=== PATIENT | male | born 1950 | race Caucasian/White ===

== ENCOUNTER 2022-09-17 10:48 | Outpatient (REF) | payer OTHER, SELFPAY ==
[2022-09-17 12:26] LABS: Albumin Level 2.4 g/dL (3.4-5.0); BUN Creatinine Ratio 13.4; Calcium 9.8 mg/dL (8.5-10.1); Carbon Dioxide 18.6 mmol/L (21.0-32.0); Chloride 107 mmol/L (98-107); Estimated GFR (African America 12 (>=60); Estimated GFR (Non-African Ame 10 (>=60); Glucose 116 mg/dL (74-106); Potassium 4.6 mmol/L (3.5-5.1); Sodium 139 mmol/L (136-145)
[2022-09-17 12:37] LABS: Phosphorus 6.6 mg/dL (2.6-4.7)
== END 2022-09-17 10:49 ==
LOC: LAB 10:48
DX: N19 Unspecified kidney failure (principal)
CPT/HCPCS: 36415; 80069

== ENCOUNTER 2023-02-04 16:03 | Emergency (ER) | payer OTHER, SELFPAY ==
[2023-02-04] VITALS (21 sets, daily range): BP systolic 104–137; BP diastolic 64–77; PULSE 79–83; RESP 13–22; TEMP 36.7; O2SAT 86–100; BMI 42.7
--- NOTE | 2023-02-04 16:15 | ECG_ITS ---
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
--- NOTE | 2023-02-04 16:32 | PC.NURSE ---
Patient arrives via ems stating, my home health nurse came out to get blood work and tried like 4 times and couldn't get it so she figured I was dehydrated and needed to be seen. Patient is on fluid restriction and arrives with solomon in place from home. patient skin is cool and pale. Patient c/o headache that is global that has been there for 2-3 days. Patient also c/o muscle spasms to hands and legs over same period of time. Patient uses wheelchair at home and is nonambulatory at baseline.
--- NOTE | 2023-02-04 16:33 | ED_ITS ---
HPI - General Adult General Chief complaint: Weakness Stated complaint: HEADACHE Time Seen by Provider: 02/04/23 16:10 Source: patient Mode of arrival: ambulance Limitations: no limitations History of Present Illness HPI narrative: Patient arrived by EMS after his home health nurse called 911, concerned that the patient might be dehydrated because she could not get blood draw and she measured decreased BP when she checked his vitals. The patient has stage 4 kidney disease just better than needing dialysis which requires him to be on fluid restriction. He said that voer the last 24 hours he developed dry mouth, mild headache and some muscle cramps in the legs and arms. He said he gets these symptoms when he is dehydrated. No nausea, vomiting or diarrhea. No chest or abdominal pain. No shortness of sandip ath. No recent injury or illness. He was previously admitted to [facility] and then discharged to [facility] where he got temporary dialysis before being transferred to the [place] for more dialysis and blood products. Related Data Allergies Allergy/AdvReac Type Severity Reaction Status Date / Time Penicillins Allergy Mild Rash Verified 02/04/23 16:07 ferumoxides Allergy Rash Verified 02/04/23 16:07 sulfamethoxazole AdvReac Mild Nausea Verified 02/04/23 16:07 [From Sulfamethoxazole-Trimethoprim] trimethoprim AdvReac Mild Nausea Verified 02/04/23 16:07 [From Sulfamethoxazole-Trimethoprim] [facility] Social History Smoking status: Former smoker Exam Narrative Exam Narrative: Nurses notes and vital signs reviewed and patient is not hypoxic. afebrile General: Well-appearing and in no apparent distress. Skin: Warm, dry, no pallor noted. Head: Normocephalic, atraumatic. Eye: Pupils are equal, round and EOMI. No scleral icterus. Ears, Nose, Mouth, and Throat: Oral mucosa is dry Cardiovascular: Regular Rate and Rhythm without murmur, gallop or rub. Respiratory: No accessory muscle use or respiratory distress. Lungs are clear to auscultation, no wheezing, rales or rhonchi Musculoskeletal: normal ROM, no calf or popliteal tenderness, 2+ pitting bilateral lower extremity edema/swelling GI: Abdomen is soft, non-distended. Normal bowel sounds. No tenderness to palpation. No rebound, guarding, or rigidity noted. Neurological: A&O x4. No cranial nerve dysfunction observed. No truncal ataxia. Moves all extremities. Sensation intact. Psychiatric: Cooperative and interactive. Normal mood and affect. Constitutional Vital Signs, click to edit/add: Last Vital Signs Temp 98.1 F 02/04/23 16:07 Pulse 81 02/04/23 16:07 Resp 18 02/04/23 16:07 BP 104/77 02/04/23 16:07 Pulse Ox 100 02/04/23 16:07 O2 Del Method Room Air 02/04/23 16:07 Course Vital Signs Vital signs: Vital Signs Temperature 98.1 F 02/04/23 16:07 Pulse Rate 81 02/04/23 16:07 Respiratory Rate 18 02/04/23 16:07 Blood Pressure 104/77 02/04/23 16:07 Pulse Oximetry 100 02/04/23 16:07 Oxygen Delivery Method Room Air 02/04/23 16:07 Temperature 98.1 F 02/04/23 16:07 Pulse Rate 81 02/04/23 16:07 Respiratory Rate 18 02/04/23 16:07 Blood Pressure 104/77 02/04/23 16:07 Pulse Oximetry 100 02/04/23 16:07 Oxygen Delivery Method Room Air 02/04/23 16:07 Medical Decision Making MDM Narrative Medical decision making narrative: peripheral IV was established and blood drawn and sent for testing. EKG was obtained. CBC with normal WBC and Hb 8.9. BMP shows Na 133, K 4.5, Cl 101, CO2 22, BUN 84, Cr 5.4 - these numbers are better than his last visit in August 2022. Patient given 250mL NS IVF in the ED. He was also allowed to have something to eat. He was discharged home with recommendations to take his meds as scheduled and follow up with his providers as scheduled. Lab Data Lab results reviewed: Yes I reviewed the patient's lab results Labs: Lab Results 02/04/23 Range/Units 16:23 WBC 7.6 (4.0-11.0) 10^3/uL RBC 2.92 L (4.70-6.10) 10^6/uL Hgb 8.9 L (14.0-18.0) g/dL Hct 27.2 L (42.0-54.0) % MCV 93.2 (80.0-94.0) fL MCH 30.5 (25.9-34.0) pg MCHC 32.7 (29.9-35.2) g/dL RDW 14.6 (11.0-15.0) % Plt Count 153 (150-450) 10^3/uL MPV 9.9 (9.5-13.5) fL Neut % (Auto) 67.2 (43.0-75.0) % Lymph % (Auto) 15.3 L (20.5-60.0) % [place] % (Auto) 10.4 (1.7-12.0) % Eos % (Auto) 5.7 (0.9-7.0) % Baso % (Auto) 0.7 (0.2-2.0) % Neut # (Auto) 5.1 (1.4-6.5) 10^3/uL Lymph # (Auto) 1.2 (1.2-3.8) 10^3/uL [place] # (Auto) 0.8 (0.3-0.8) 10^3/uL Eos # (Auto) 0.4 (0.0-0.7) 10^3/uL Baso # (Auto) 0.1 (0.0-0.1) 10^3/uL Abs Immat Gran (auto) 0.05 H (0.00-0.03) 10^3/uL Imm/Tot Granulo (auto) 0.7 H (0.0-0.5) % Sodium 133 L (136-145) mmol/L Potassium 4.5 (3.5-5.1) mmol/L Chloride 101 (98-107) mmol/L Carbon Dioxide 22.3 (21.0-32.0) mmol/L Anion Gap 14.2 BUN 84.0 H* (7.0-18.0) mg/dL Creatinine 5.41 H* (0.70-1.30) mg/dL Est GFR ( Amer) 13 L (>=60) Est GFR (Non-Af Amer) 10 L (>=60) BUN/Creatinine Ratio 15.5 Glucose 122 H (74-106) mg/dL Calcium 9.5 (8.5-10.1) mg/dL ECG Data Attestation: ?I have reviewed the pertinent ECG results. Interpretation: EKG interpretation: Emergency Department physician interpretation. Normal sinus rhythm at 77bpm. Non-specific IV conduction block. ST depression in leads II, III, aVL, V5 & V6- no ST segment elevation or depression. Discharge Plan Discharge Chief Complaint: Weakness Clinical Impression: Chronic renal failure (CRF), stage 4 (severe), Dehydration Patient Disposition: Home, Self-Care Time of Disposition Decision: 17:06 Instructions: Dehydration (ED), End Stage Kidney Disease (ED) Stand Alone Forms: Portal Instructions Referrals: Physician,Non-Staff, MD [Primary Care Provider] - 1 week
[2023-02-04 16:34] LABS: Basophils Absolute Auto 0.1 10^3/uL (0.0-0.1); Basophils Percent Auto 0.7 % (0.2-2.0); Eosinophils Absolute Auto 0.4 10^3/uL (0.0-0.7); Eosinophils Percent Auto 5.7 % (0.9-7.0); Hematocrit 27.2 % (42.0-54.0); Hemoglobin 8.9 g/dL (14.0-18.0); Immature Granulocytes Abs Auto 0.05 10^3/uL (0.00-0.03); Immature Granulocytes Pct Auto 0.7 % (0.0-0.5); Lymphocytes Absolute Auto 1.2 10^3/uL (1.2-3.8); Lymphocytes Percent Auto 15.3 % (20.5-60.0); Mean Corpuscular HGB Conc 32.7 g/dL (29.9-35.2); Mean Corpuscular Hemoglobin 30.5 pg (25.9-34.0); Mean Corpuscular Volume 93.2 fL (80.0-94.0); Mean Platelet Volume 9.9 fL (9.5-13.5); Monocytes Absolute Auto 0.8 10^3/uL (0.3-0.8); Monocytes Percent Auto 10.4 % (1.7-12.0); Neutrophils Absolute Auto 5.1 10^3/uL (1.4-6.5); Neutrophils Percent Auto 67.2 % (43.0-75.0); Platelet Count 153 10^3/uL (150-450); Red Blood Count 2.92 10^6/uL (4.70-6.10); Red Cell Distribution Width 14.6 % (11.0-15.0); White Blood Count 7.6 10^3/uL (4.0-11.0)
[2023-02-04 16:45] LABS: Anion Gap 14.2; BUN Creatinine Ratio 15.5; Calcium 9.5 mg/dL (8.5-10.1); Carbon Dioxide 22.3 mmol/L (21.0-32.0); Chloride 101 mmol/L (98-107); Estimated GFR (African America 13 (>=60); Estimated GFR (Non-African Ame 10 (>=60); Glucose 122 mg/dL (74-106); Potassium 4.5 mmol/L (3.5-5.1); Sodium 133 mmol/L (136-145)
[2023-02-04] MEDS: 0.9 % SODIUM CHLORIDE 250 ML IV.SOLN IV (17:05)
== END 2023-02-04 19:32 | disposition home or self-care (01) ==
PROVIDERS: Emergency Provider Emergency Medicine
DX: E86.0 Dehydration (principal); N18.4 Chronic kidney disease, stage 4 (severe); Z87.891 Personal history of nicotine dependence
CPT/HCPCS: 36415; 80048; 85025; 93005; 99284

== ENCOUNTER 2023-08-16 21:41 | Inpatient (IN) | payer OTHER, SELFPAY ==
[2023-08-16] VITALS (14 sets, daily range): BP systolic 138; BP diastolic 73; PULSE 74–129; TEMP 36.6; O2SAT 98; BMI 50.2
--- NOTE | 2023-08-16 21:47 | ED_ITS ---
HPI - Male Genitourinary General Chief complaint: Urogenital-Male Stated complaint: blood in urine Time Seen by Provider: 08/16/23 21:47 History of Present Illness HPI Narrative: patient has indwelling solomon in place since 2019. Care via [place] [facility]. Resides at home alone. Completely dependent on caregiver who is there 8 hours a day. States he is placed in bed at night and remains there until the memory care program resident arrives the next day as he is not able to get up noticed blood in his solomon today and also feels weak. No fever, nausea or pain Related Data Home Medications ?Medication ?Instructions ?Recorded ?Confirmed acetaminophen 325 mg capsule 975 mg PO TID PRN fever or pain 08/17/23 08/17/23 (Tylenol) albuterol 90 mcg/actuation aerosol 90 mcg inhalation QID PRN 08/17/23 08/17/23 inhaler shortness of breath or wheezing aspirin 81 mg tablet,delayed 81 mg PO DAILY 08/17/23 08/17/23 release (Adult Low Dose Aspirin) atorvastatin 80 mg tablet 80 mg PO DAILY 08/17/23 08/17/23 bacitracin zinc 500 unit/gram 1 applic topical DAILY PRN skin 08/17/23 08/17/23 topical ointment irritation benzocaine 15 mg-menthol 2.6 mg 1 thien mucous membrane Q6H PRN sore 08/17/23 08/17/23 lozenges (Cepacol Sore Throat throat (benzocaine-menthol)) calcitriol 0.25 mcg capsule 0.25 mcg PO .3 TIMES WEEK 08/17/23 08/17/23 carvedilol 12.5 mg tablet 12.5 mg PO BID 08/17/23 08/17/23 cholecalciferol (vitamin D3) 50 2,000 unit PO DAILY 08/17/23 08/17/23 mcg (2,000 unit) capsule clobetasol 0.05 % topical cream 1 applic topical BID 08/17/23 08/17/23 darbepoetin danielle in polysorbat 100 100 mcg subcut .q2week 08/17/23 08/17/23 mcg/0.5 mL in polysorbate injection syringe darbepoetin danielle in polysorbat 100 100 mcg subcut QWEEK 08/17/23 08/17/23 mcg/mL in polysorbate injection darifenacin 15 mg tablet,extended 15 mg PO DAILY 08/17/23 08/17/23 release 24 hr ferrous sulfate 325 mg (65 mg 325 mg PO DAILY 08/17/23 08/17/23 iron) tablet,delayed release finasteride 5 mg tablet 5 mg PO DAILY 08/17/23 08/17/23 guaifenesin 600 mg tablet, 600 mg PO BID PRN congestion 08/17/23 08/17/23 extended release 12 hr hydrocodone 5 mg-acetaminophen 325 1 tab PO Q4H PRN pain 08/17/23 08/17/23 mg tablet hydrophilic cream 1 applic topical BID 08/17/23 08/17/23 levothyroxine 75 mcg capsule 75 mcg PO DAILY 08/17/23 08/17/23 lidocaine HCl 2 % topical gel 1 applic topical DAILY PRN pain 08/17/23 08/17/23 lidocaine HCl 4 % topical ointment 1 ea topical TID PRN pain 08/17/23 08/17/23 (AsperFlex (lidocaine HCl)) loratadine 10 mg tablet (Allergy 10 mg PO DAILY 08/17/23 08/17/23 Relief (loratadine)) melatonin 3 mg tablet 6 mg PO DAILY 08/17/23 08/17/23 miconazole nitrate 2 % topical 1 applic topical DAILY 08/17/23 08/17/23 cream miconazole nitrate 2 % topical 1 applic topical DAILY PRN fungal 08/17/23 08/17/23 powder (Remedy Phytoplex Antifungal) multivitamin 1 tab PO DAILY 08/17/23 08/17/23 nitroglycerin 0.4 mg sublingual 0.4 mg sublingual Q5M 08/17/23 08/17/23 tablet nystatin 100,000 unit/gram topical 1 applic topical DAILY PRN skin 08/17/23 08/17/23 powder omeprazole 20 mg tablet,delayed 20 mg PO DAILY 08/17/23 08/17/23 release polyethylene glycol 3350 17 17 g PO DAILY PRN constipation 08/17/23 08/17/23 gram/dose oral powder (Miralax) potassium citrate-citric acid 30 ml PO DAILY 08/17/23 08/17/23 1,100 mg-334 mg/5 mL oral solution pramoxine 1 % lotion 1 applic topical BID PRN itching 08/17/23 08/17/23 semaglutide 2 mg/dose (8 mg/3 mL) 0.5 mg subcut QWEEK 08/17/23 08/17/23 subcutaneous pen injector (Ozempic) sennosides 8.6 mg capsule 8.6 mg PO DAILY PRN constipation 08/17/23 08/17/23 trazodone 100 mg tablet 100 mg PO DAILY 08/17/23 08/17/23 ustekinumab 90 mg/mL subcutaneous 90 mg subcut .every 10 weeks 08/17/23 08/17/23 syringe venlafaxine 37.5 mg 37.5 mg PO DAILY 08/17/23 08/17/23 capsule,extended release 24 hr wound dressings (Triad Wound 1 applic topical .Fri. 08/17/23 08/17/23 Dressing paste) zinc oxide 20 % topical ointment 1 applic topical DAILY PRN skin 08/17/23 08/17/23 irritation Allergies Allergy/AdvReac Type Severity Reaction Status Date / Time Penicillins Allergy Mild Rash Verified 08/16/23 21:52 ferumoxides Allergy Rash Verified 08/16/23 21:52 sulfamethoxazole AdvReac Mild Nausea Verified 08/16/23 21:52 [From Sulfamethoxazole-Trimethoprim] trimethoprim AdvReac Mild Nausea Verified 08/16/23 21:52 [From Sulfamethoxazole-Trimethoprim] Review of Systems ROS Status of ROS 10 or more systems reviewed and unremark able except as noted in history and below [facility] Medical History (Updated 08/17/23 @ 12:38 by Shaikh Arturo MD) T2DM (type 2 diabetes mellitus) ?E11.9 - Type 2 diabetes mellitus without complications (ICD-10) Hypothyroid ?E03.9 - Hypothyroidism, unspecified (ICD-10) HLD (hyperlipidemia) ?E78.5 - Hyperlipidemia, unspecified (ICD-10) HTN (hypertension) ?I10 - Essential (primary) hypertension (ICD-10) Anemia in CKD (chronic kidney disease) ?N18.9 - Chronic kidney disease, unspecified (ICD-10) ?D63.1 - Anemia in chronic kidney disease (ICD-10) Chronic indwelling Solomon catheter ?Z97.8 - Presence of other specified devices (ICD-10) Paraplegia ?G82.20 - Paraplegia, unspecified (ICD-10) Bedbound ?Z74.01 - Bed confinement status (ICD-10) H/O: CVA (cerebrovascular accident) ?Z86.73 - Personal history of transient ischemic attack (TIA), and cerebral infarction without residual deficits (ICD-10) Chronic renal failure (CRF), stage 4 (severe) ?N18.4 - Chronic kidney disease, stage 4 (severe) (ICD-10) Pyuria ?R82.81 - Pyuria (ICD-10) CKD (chronic kidney disease) stage 5, GFR less than 15 ml/min ?N18.5 - Chronic kidney disease, stage 5 (ICD-10) Social History (Updated 08/17/23 @ 12:36 by Shaikh Arturo MD) Within the past year, how often did you have a drink containing alcohol: never Score interpretation: A score less than 4 is consistent with normal alcohol consumption. Smoking status: Former smoker Non-prescribed substance use: denies use Highest level of school completed/degree received: Associate degree: occupational, technical, vocational program Do you think of yourself as: straight/heterosexual Gender Identity: male Exam Constitutional Vital Signs, click to edit/add: Last Vital Signs Temp 97.9 F 08/17/23 16:00 Pulse 73 08/17/23 16:00 Resp 18 08/17/23 16:00 BP 123/75 08/17/23 16:00 Pulse Ox 97 08/17/23 16:00 O2 Del Method Room Air 08/17/23 16:00 O2 Flow Rate 1 08/17/23 12:00 Common normals: no apparent distress, oriented x3, alert and well nourished [facility] Common normals: normocephalic and head/scalp atraumatic Eye Common normals: EOMs intact bilaterally and conjunctivae normal Respiratory Common normals: normal respiratory effort, no retractions, no use of accessory muscles and clear to auscultation bilaterally Cardio Common normals: regular rate, regular rhythm, S1 normal heart sound and S2 normal heart sound GI Common normals: Normal to inspection, nondistended, normoactive bowel sounds present, soft to palpation and non-tender Extremity Common normals: normal to inspection Neuro Common normals: oriented x3, CN's II-XII intact bilaterally, moves all extremities and no focal motor deficits Psych Appearance: grossly normal Course Vital Signs Vital signs: Vital Signs Temperature 98 F 08/16/23 21:45 Pulse Rate 81 08/16/23 21:45 Respiratory Rate 16 08/16/23 21:45 Blood Pressure 138/73 08/16/23 21:45 Pulse Oximetry 98 08/16/23 21:45 Oxygen Delivery Method Room Air 08/16/23 21:45 Temperature 97.9 F 08/17/23 16:00 Pulse Rate 73 08/17/23 16:00 Respiratory Rate 18 08/17/23 16:00 Blood Pressure 123/75 08/17/23 16:00 Pulse Oximetry 97 08/17/23 16:00 Oxygen Delivery Method Room Air 08/17/23 16:00 Oxygen Delivery Flow Rate 1 08/17/23 12:00 MDM - Male Genitourinary MDM Narrative Medical decision making narrative: patient is diabetic and has chronic renal failure. has chronic indwelling Solomon and tonight presented because of weakness and hematuria. Urine in his bag now is pink. States there was more blood at home before he came in via [facility]. He lives alone as his has passed. He is not able to get up from the bed and requires care of an fleet administrative assistant payment collector who comes to his home daily for 8 hours. States he has no interest in a care home. He is put to be at night and remains there until the patient care technician returns the next day. labs reveal his chronic renal failure but also evidence of dehydration that is worse than his baseline. IV fluids started in the department. UA via catheter positive as expected. Urine cx order ed Lab Data Labs: Lab Results 08/16/23 08/16/23 08/17/23 Range/Units 22:04 23:23 04:43 WBC 8.2 8.9 (4.0-11.0) 10^3/uL RBC 3.40 L 3.36 L (4.70-6.10) 10^6/uL Hgb 9.8 L 9.5 L (14.0-18.0) g/dL Hct 31.0 L 30.6 L (42.0-54.0) % MCV 91.2 91.1 (80.0-94.0) fL MCH 28.8 28.3 (25.9-34.0) pg MCHC 31.6 31.0 (29.9-35.2) g/dL RDW 14.6 14.6 (11.0-15.0) % Plt Count 151 135 L (150-450) 10^3/uL MPV 9.9 9.8 (9.5-13.5) fL Neut % (Auto) 70.6 71.9 (43.0-75.0) % Lymph % (Auto) 14.8 L 13.3 L (20.5-60.0) % [place] % (Auto) 9.8 9.8 (1.7-12.0) % Eos % (Auto) 3.7 3.7 (0.9-7.0) % Baso % (Auto) 0.7 0.8 (0.2-2.0) % Neut # (Auto) 5.8 6.4 (1.4-6.5) 10^3/uL Lymph # (Auto) 1.2 1.2 (1.2-3.8) 10^3/uL [place] # (Auto) 0.8 0.9 H (0.3-0.8) 10^3/uL Eos # (Auto) 0.3 0.3 (0.0-0.7) 10^3/uL Baso # (Auto) 0.1 0.1 (0.0-0.1) 10^3/uL Abs Immat Gran (auto) 0.03 0.04 H (0.00-0.03) 10^3/uL Imm/Tot Granulo (auto) 0.4 0.5 (0.0-0.5) % Sodium 138 138 (136-145) mmol/L Potassium 4.7 4.5 (3.5-5.1) mmol/L Chloride 104 106 (98-107) mmol/L Carbon Dioxide 21.7 19.6 L (21.0-32.0) mmol/L Anion Gap 17.0 16.9 BUN 106.0 H* 110.0 H* (7.0-18.0) mg/dL Creatinine 5.76 H* 5.67 H* (0.70-1.30) mg/dL Est GFR ( Amer) 12 L 12 L (>=60) Est GFR (Non-Af Amer) 10 L 10 L (>=60) BUN/Creatinine Ratio 18.4 19.4 Glucose 110 H 129 H (74-106) mg/dL Lactate 0.5 (0.4-2.0) mmol/L Calcium 10.0 9.8 (8.5-10.1) mg/dL Total Bilirubin 0.4 (0.2-1.0) mg/dL AST 20 (15-37) U/L ALT 43 (16-63) U/L Alkaline Phosphatase 126 H (46-116) U/L Troponin I High Sens 25.6 28.2 (4.0-76.1) pg/mL Total Protein 6.3 L (6.4-8.2) g/dL Albumin 2.6 L (3.4-5.0) g/dL Globulin 3.7 g/dL Albumin/Globulin Ratio 0.7 Urine Color Yellow (YELLOW) Urine Clarity Clear (CLEAR) Urine pH 7.5 (5.0-9.0) Ur Specific [place] 1.015 (1.005-1.025) Urine Protein 100 A (NEG/TRACE) mg/dL Urine Glucose (UA) 100 A (NEGATIVE) mg/dL Urine Ketones Negative (NEGATIVE) mg/dL Urine Occult Blood Large A (NEGATIVE) Urine Nitrite Positive A (NEGATIVE) Urine Bilirubin Negative (NEGATIVE) Urine Urobilinogen 0.2 (0.2-1.0) EU/dL Ur Leukocyte Esterase Large A (NEGATIVE) Urine RBC 20-50 A (0-2) #/HPF Urine WBC 50-75 A (NONE SEEN) #/HPF Ur Squamous Epith Cells None seen (NONE/RARE) #/LPF Urine Crystals None seen (None Seen) #/HPF Urine Bacteria Moderate A (NONE SEEN) #/HPF Urine Casts None seen (NONE SEEN) #/LPF Urine Mucus None seen (NONE SEEN) Ur Culture Indicated? Yes POC Glucose (74-106) mg/dL 08/17/23 08/17/23 Range/Units 11:43 12:53 WBC (4.0-11.0) 10^3/uL RBC (4.70-6.10) 10^6/uL Hgb 9.2 L (14.0-18.0) g/dL Hct 29.2 L (42.0-54.0) % MCV (80.0-94.0) fL MCH (25.9-34.0) pg MCHC (29.9-35.2) g/dL RDW (11.0-15.0) % Plt Count (150-450) 10^3/uL MPV (9.5-13.5) fL Neut % (Auto) (43.0-75.0) % Lymph % (Auto) (20.5-60.0) % [place] % (Auto) (1.7-12.0) % Eos % (Auto) (0.9-7.0) % Baso % (Auto) (0.2-2.0) % Neut # (Auto) (1.4-6.5) 10^3/uL Lymph # (Auto) (1.2-3.8) 10^3/uL [place] # (Auto) (0.3-0.8) 10^3/uL Eos # (Auto) (0.0-0.7) 10^3/uL Baso # (Auto) (0.0-0.1) 10^3/uL Abs Immat Gran (auto) (0.00-0.03) 10^3/uL Imm/Tot Granulo (auto) (0.0-0.5) % Sodium (136-145) mmol/L Potassium (3.5-5.1) mmol/L Chloride (98-107) mmol/L Carbon Dioxide (21.0-32.0) mmol/L Anion Gap BUN (7.0-18.0) mg/dL Creatinine (0.70-1.30) mg/dL Est GFR ( Amer) (>=60) Est GFR (Non-Af Amer) (>=60) BUN/Creatinine Ratio Glucose (74-106) mg/dL Lactate (0.4-2.0) mmol/L Calcium (8.5-10.1) mg/dL Total Bilirubin (0.2-1.0) mg/dL AST (15-37) U/L ALT (16-63) U/L Alkaline Phosphatase (46-116) U/L Troponin I High Sens (4.0-76.1) pg/mL Total Protein (6.4-8.2) g/dL Albumin (3.4-5.0) g/dL Globulin g/dL Albumin/Globulin Ratio Urine Color (YELLOW) Urine Clarity (CLEAR) Urine pH (5.0-9.0) Ur Specific [place] (1.005-1.025) Urine Protein (NEG/TRACE) mg/dL Urine Glucose (UA) (NEGATIVE) mg/dL Urine Ketones (NEGATIVE) mg/dL Urine Occult Blood (NEGATIVE) Urine Nitrite (NEGATIVE) Urine Bilirubin (NEGATIVE) Urine Urobilinogen (0.2-1.0) EU/dL Ur Leukocyte Esterase (NEGATIVE) Urine RBC (0-2) #/HPF Urine WBC (NONE SEEN) #/HPF Ur Squamous Epith Cells (NONE/RARE) #/LPF Urine Crystals (None Seen) #/HPF Urine Bacteria (NONE SEEN) #/HPF Urine Casts (NONE SEEN) #/LPF Urine Mucus (NONE SEEN) Ur Culture Indicated? POC Glucose 114 H (74-106) mg/dL Discharge Plan Discharge Chief Complaint: Urogenital-Male Clinical Impression: Chronic renal failure (CRF), stage 4 (severe), Pyuria, Dehydration Patient Disposition: Admitted as Observation Discharge Date/Time: 08/17/23 02:02
--- NOTE | 2023-08-16 21:50 | ECG_ITS ---
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
--- OUTSIDE RECORDS SUMMARY | 2023-08-16 22:00 | XMS_ITS | CCD ---
Author Organization [facility] Care Team Providers Care Executive Asst Name Role Phone Unavailable Primary Care Provider UnavailROBERTO Raman Consulting Unavailable DIAB ., GAVITOA Attending Unavailable DIAB ., GAVIOTA Admitting Unavailable MISC, DR YODER Primary Care Unavailable DIAB ., GAVIOTA Consulting Unavailable REQUEST, NONE LISTED Primary Care Unavailaudrey HALLMAN, DR REJI Vidal Consulting Unavailabl e REINECK, DR REJI Vidal Attending Unavailabl e LEXX, DR REJI Vidal Admitting Unavailabl e GRECHNY ., KENDRA MERIDA Consulting Unavailangela e HAY ., DR BARAJAS Attending Unavailable HAY ., DR BARAJAS Admitting Unavailable REQUEST, NONE LISTED Primary Care UnavailMARQUES Byers Consulting Unavailable PAY ., DR GRAVES Consulting Unavailable PAY ., DR GRAVES Attending Unavailable PAY ., DR GRAVES Admitting Unavailable REQUEST, DR BOOTH LISTED Primary Care UnavailYOAN Valle Consulting Unavailable PAY ., DR GRAVES Consulting Unavailable SHAIKH Irasema HUNTLEY Attending Unavailable SHAIKH Irasema HUNTLEY Admitting Unavailable MISC, DR YODER Primary Care Unavailable MORTEZA .DEVANTE Consulting Unavailable SHAIKH Irasema HUNTLEY Consulting Unavailable JOSE LUIS MARQUES Consulting Unavailable ELEANOR .PASHA Consulting Unavailable GWENDOLYN WARREN Consulting Unavailable ЕЛЕНА OLSEN Referring Unavailable Nasim CRAMER Attending Unavailable Erik Sanderson Unavailable Devaughn Lucio Unavailable Eldon López Attending Unavailable Nasim Cramer Consulting Unavailable Kyaw Olsen Admitting Unavailable Morteza (Clinic)Riana Primary Care UnavailNorma Maya Consulting Unavailable Lucretia Peralta Consulting Unavailable Erik Sanderson Consulting Unavailable Sarahi Walden Consulting Unavailable Jesús Dinero Consulting Unavailable Umang Yan MELANIE J Referring Unavailable Allergies Allergy Classification Reported Allergen(s) Allergy Type Date of Onset Reaction(s) Facility Penicillins (antibiotic) (1 source) Penicillins Drug Allergy 02-06-20 [facility] (1 source) Penicillins Propensity to adverse reactions to drug 02-06-20 [facility] [place] (2 sources) Penicillin; Translations: [penicillin] Drug Allergy [facility] (2 sources) Sulfamethoxazole / Trimethoprim; Translations: [Bactrim] Drug Allergy [facility] (1 source) No Known Medication Allergies; Translations: [No Known Medication Allergies] Propensity to adverse reactions (disorder) [facility] (3 sources) Penicillin G Drug Allergy Unknown [facility] Other (3 sources) Sulfamethoxazole / Trimethoprim Drug Allergy Unknown [facility] Other (1 source) Penicillins Drug allergy (disorder) 08-31-19 [facility] (1 source) Sulfamethoxazole Drug Allergy 08-31-19 [facility] (1 source) Trimethoprim Drug Allergy 08-31-19 [facility] Medications Current Medications Medication Drug Class(es) Dates Sig (Normalized) Sig (Original) 0.25 MG, 0.5 MG Dose 3 ML semaglutide 0.68 MG/ML Pen Injector [Ozempic] (3 sources) Ozempic (0.25 or 0.5 MG/DOSE) 2 MG/3ML as directed Subcutaneous ONCE A WEEK Active acetaminophen 325 mg oral tablet (2 sources) take 2 tablets by mouth every four hours as needed for pain acetaminophen (TYLENOL) 325 MG tablet Take 650 mg by mouth every 4 hours as needed for Pain 0 Active acetaminophen 325 mg / HYDROcodone bitartrate 5 mg oral tablet (2 sources) Opioid Agonist take 2 tablets by mouth every six hours as needed for pain HYDROcodone-acetamino phen (NORCO) 5-325 MG per tablet Take 2 tablets by mouth every 6 hours as needed for Pain. 0 Active acitretin 10 mg oral capsule (2 sources) Retinoid take 2 capsules by mouth once daily before breakfast acitretin (SORIATANE) 10 MG capsule Take 20 mg by mouth every morning (before breakfast) 0 Active [id number] actuat albuterol 0.09 mg/actuat metered dose inhaler (3 sources) beta2-Adrenergic Agonist albuterol (PROVENTIL ) (2.5 MG/3ML) 0.083% nebulizer solution Take 2.5 mg by nebulization every 6 hours as needed for Wheezing 0 Active take 2 puff(s) by in halation four times daily albuterol sulfate HFA 108 (90 Base) MCG/ACT inhaler Inhale 2 puffs into the lungs 4 times daily 0 Active albuterol sulfate HFA 108 (90 Base) MCG/ACT inhaler (1 source) take 2 puff(s) by inhalation four times daily albuterol sulfate HFA 108 (90 Base) MCG/ACT inhaler Inhale 2 puffs into the lungs 4 times daily 0 Active aspirin 81 mg delayed release oral tablet (5 sources) Platelet Aggregation Inhibitor, Nonsteroidal Anti-inflammatory Drug take 1 tablet by mouth every twenty-four hours Aspirin Adult Low Dose 81 MG 1 tablet Orally Once a day Active take 1 tablet by mouth once ja y aspirin 81 MG chewable tablet Take 81 mg by mouth daily 0 Active atorvastatin 80 mg oral tablet (5 sources) HMG-CoA Reductase Inhibitor take 1 tablet by mouth every twenty-four hours Atorvastatin Calcium 80 MG 1 tablet Orally Once a day Active bisacodyl 10 mg rectal suppository (2 sources) Stimulant Laxative take 10 mg rectal route once daily as needed for constipation bisacodyl (DULCOLAX) [address] 10 mg rectally daily as needed for Constipation 0 Active carvedilol 25 mg oral tablet (5 sources) alpha-Adrenergic Sarah, beta-Adrenergic Sarah take 1 tablet by mouth every twelve hours Carvedilol 25 MG 1 tablet with food Orally Twice a day Active take 1 tablet by estrella twice daily at mealtime carvedilol (COREG) 6.25 MG tablet Take 6.25 mg by mouth 2 times daily (with meals) 0 Active Cholecalciferol (3 sources) Vitamin D take 1 tablet by mouth once daily Cholecalciferol 50 MCG (2000 UT) 1 tablet Orally Once a day Active docusate sodium 100 mg oral capsule (3 sources) take 1 capsule by mouth every twenty-four hours Colace 100 MG 1 capsule as needed Orally Once a day Active ferrous sulfate (5 sources) take 1 tablet by mouth once daily Ferrous Sulfate 325 (65 Fe) MG 1 tablet Orally ONCE A DAY Active take 1 tablet by estrella th once daily at breakfast ferrous sulfate 325 (65 Fe) MG tablet Ta ke 325 mg by mouth daily (with breakfast) 0 Active finasteride 5 mg oral tablet (5 sources) 5-alpha Reductase Inhibitor take 1 tablet by mouth every twenty-four hours Finasteride 5 MG 1 tablet Orally Once a day Active furosemide 80 mg oral tablet (2 sources) Loop Diuretic take 1 tablet by mouth once daily furosemide (LASIX) 80 MG tablet Take 80 mg by mouth daily 0 Active gabapentin 300 mg oral capsule (2 sources) Anti-epileptic Agent take 1 capsule by mouth three times daily gabapentin (NEURONTIN) 300 MG capsule Take 300 mg by mouth 3 times daily. 0 Active 3 ml insulin glargine 100 unt/ml pen injector (3 sources) Insulin Analog Lantus SoloStar 100 UNIT/ML as directed Subcutaneous 12UNITS Q HS Active levothyroxine sodium 0.075 mg oral tablet (5 sources) l-Thyroxine take 1 tablet by mouth once daily in the morning Levothyroxine Sodium 75 MCG 1 tablet in the morning on an empty stomach Orally Once a day Active take 1 tablet by mouth once ja y levothyroxine (SYNTHROID) 50 MCG tablet Take 50 mcg by mouth Daily 0 Active lidocaine hydrochloride 40 mg/ml topical solution (2 sources) Antiarrhythmic, Amide Local Anesthetic lidocaine (XYLOCAINE) 4 % external solution Apply topically as needed for Pain Apply topically as needed. 0 Active lisinopril 2.5 mg oral tablet (2 sources) Angiotensin Converting Enzyme Inhibitor take 1 tablet by mouth once daily lisinopril (PRINIVIL;ZESTRIL) 2.5 MG tablet Take 2.5 mg by mouth daily 0 Active loratadine 10 mg oral tablet (5 sources) take 1 tablet by mouth every other day Loratadine 10 MG 1 tablet Orally EVERY OTHER DAY Active take 1 tablet by mouth once ja y loratadine (CLARITIN) 10 MG tablet Take 10 mg by mouth daily 0 Active magnesium hydroxide 240 mg/ml oral suspension (2 sources) take 2400 mg by mouth once daily as needed magnesium hydroxide (MILK OF MAGNESIA CONCENTRATE) 2400 MG/10ML SUSP Take 2,400 mg by mouth daily as needed 0 Active metFORMIN hydrochloride 1000 mg oral tablet (2 sources) Biguanide take 1 tablet by mouth twice daily at mealtime metFORMIN (GLUCOPHAGE) 1000 MG tablet Take 1,000 mg by mouth 2 times daily (with meals) 0 Active metoprolol tartrate 25 mg oral tablet (2 sources) beta-Adrenergic Sarah take 1 tablet by mouth twice daily metoprolol tartrate (LOPRESSOR) 25 MG tablet Take 25 mg by mouth 2 times daily 0 Active Multivitamin preparation (3 sources) take 1 tablet by mouth once daily Multi Vitamin - 1 tablet Orally Once a day Active naproxen 375 mg oral tablet (2 sources) Nonsteroidal Anti-inflammatory Drug take 1 tablet by mouth twice daily at mealtime naproxen (NAPROSYN) 375 MG tablet Take 375 mg by mouth 2 times daily (with meals) 0 Active nitroglycerin 0.4 mg sublingual tablet (2 sources) Nitrate Vasodilator nitroGLYCERI N (NITROSTAT) 0.[address] 0.4 mg under the tongue every 5 minutes as needed for Chest pain up to max of 3 total doses. If no relief after 1 dose, call 911. 0 Active omeprazole 20 mg delayed release oral capsule (3 sources) Proton Pump Inhibitor take 1 capsule by mouth once daily Omeprazole 20 MG 1 capsule 30 minutes before morning meal Orally Once a day Active polyethylene glycol [id number] [id number] mg powder for oral solution (3 sources) Osmotic Laxative MiraLax 17 GM 1 packet mixed with 8 ounces of fluid Orally Once a day Active raNITIdine 300 mg oral tablet (2 sources) Histamine-2 Receptor Antagonist take 1 tablet by mouth once daily ranitidine (ZANTAC) 300 MG tablet Take 300 mg by mouth nightly 0 Active sevelamer hydrochloride 800 mg oral tablet (3 sources) Phosphate Binder take 1 tablet by mouth every eight hours Sevelamer HCl 800 MG 1 tablet with meals Orally Three times a day Active simethicone 80 mg chewable tablet (3 sources) take 1 tablet by mouth every six hours Simethicone 80 MG 1 tablet after meals and at bedtime as needed Orally Four times a day Active sodium phosphate, dibasic 35.5 mg/ml / sodium phosphate, monobasic 96.4 mg/ml enema (2 sources) Sodium Phosphate s (FLEET) 7-19 GM/118ML Place 1 enema rectally once as needed 0 Active tamsulosin hydrochloride 0.4 mg oral capsule (2 sources) alpha-Adrenergic Sarah take 1 capsule by mouth once daily tamsulosin (FLOMAX) 0.4 MG capsule Take 0.4 mg by mouth daily 0 Active traZODone hydrochloride 50 mg oral tablet (5 sources) Serotonin Reuptake Inhibitor take 0.5 tablet by mouth once daily traZODone HCl 50 MG 1/2 TABLET Orally Once a day Active take 1 tablet by mouth once ja y traZODone (DESYREL) 50 MG tablet Take 50 mg by mouth nightly 0 Active 1 ml ustekinumab 90 mg/ml prefilled syringe (2 sources) Interleukin-12 Antagonist, Interleukin-23 Antagonist ustekinumab (STELARA ) 90 MG/ML SOSY prefilled syringe Inject 90 mg into the skin once 0 Active venlafaxine 37.5 mg oral tablet (3 sources) Serotonin and Norepinephrine Reuptake Inhibitor take 1 tablet by mouth every twelve hours Venlafaxine HCl 37.5 MG 1 tablet with food Orally Twice a day Active Problems Active Problems Problem Classification Problem Date Documented Date Episodic/Chronic Acute and unspecified renal failure (3 sources) Acute renal failure syndrome; Translations: [Acute kidney failure, unspecified] Onset: 9 02-05-2019 Episodic Anxiety disorders (1 source) Post-traumatic stress disorder, unspecified; Translations: [POST-TRAUMATIC STRESS DISORDER UNS] Onset: 2 Chronic Bacterial infection; unspecified site (1 source) Proteus (mirabilis) (morganii) as the cause of diseases classified elsewhere; Translations: [PROTEUS CAUSE OF DZ CLASS ELSW] Onset: 3 Episodic Blindness and vision defects (1 source) Unspecified visual loss; Translations: [UNSPECIFIED VISUAL LOSS] Onset: 2 Chronic Calculus of urinary tract (6 sources) Personal history of urinary calculi; Translations: [Kidney stone] Onset: 2 Episodic Chronic kidney disease (20 sources) End stage renal disease; Translations: [Chronic kidney disease, unspecified] Onset: 3 Chronic Chronic ulcer of skin (3 sources) Pressure ulcer stage 2; Translations: [Pressure ulcer of right buttock, stage 2] Onset: 9 02-05-2019 Chronic Complication of device; implant or graft (2 sources) Infection and inflammatory reaction due to indwelling urethral catheter, initial encounter; Translations: [INF AND INFLM REAC INDWL URETH CATH INT] Onset: 3 Episodic Congestive heart failure; nonhypertensive (3 sources) Systolic heart failure; Translations: [Unspecified systolic (congestive) heart failure] Onset: 9 02-05-2019 Chronic Coronary atherosclerosis and other heart disease (2 sources) Atherosclerotic heart disease of [place] coronary artery without angina pectoris; Translations: [Chronic ischemic heart disease, unspecified] Onset: 2 Chronic Deficiency and other anemia (1 source) Anemia in other chronic diseases classified elsewhere; Translations: [ANEMIA IN OTH CHRONIC DZ CLASS ELSW] Onset: 3 Chronic Deficiency and other anemia (4 sources) Anemia of renal disease; Translations: [Anemia in chronic kidney disease] Chronic Deficiency and other anemia (1 source) Anemia in chronic kidney disease Chronic Deficiency and other anemia (5 sources) Anemia, unspecified; Translations: [ANEMIA UNSPECIFIED] Onset: 3 Episodic Diabetes mellitus with complications (5 sources) Type 2 diabetes mellitus with diabetic chronic kidney disease; Translations: [Disorder of kidney due to diabetes mellitus] Onset: 3 Chronic Diabetes mellitus without complication (1 source) Type 2 diabetes mellitus without complications; Translations: [TYPE 2 DM WITHOUT COMPLICATIONS] Onset: 2 Chronic Disorders of lipid metabolism (1 source) Pure hypercholesterolemia, unspecified; Translations: [PURE HYPERCHOLESTEROLEMIA UNSPEC] Onset: 3 Chronic Genitourinary symptoms and ill-defined conditions (1 source) Presence of urogenital implants; Translations: [PRESENCE OF UROGENITAL IMPLANTS] Onset: 3 Chronic Genitourinary symptoms and ill-defined conditions (3 sources) Obstructive and reflux uropathy, unspecified; Translations: [Personal history of urinary (tract) infections] Onset: 2 Episodic Hyperplasia of prostate (1 source) Benign prostatic hyperplasia without lower urinary tract symptoms; Translations: [BENIGN PROSTATIC HYPRPLASIA WO LUTS] Onset: 2 Chronic Hypertension with complications and secondary hypertension (8 sources) Hypertensive chronic kidney disease with stage 5 chronic kidney disease or end stage renal disease; Translations: [Hypertensive heart and chronic kidney disease with heart failure and stage 1 through stage 4 chronic kidney disease, or unspecified chronic kidney disease] Onset: 3 Chronic Late effects of cerebrovascular disease (1 source) Hemiplegia and hemiparesis following cerebral infarction affecting left non-dominant side; Translations: [HEMIPLG FLW CEREB INFARCT LT N-DOM] Onset: 3 Chronic Malaise and fatigue (1 source) Weakness; Translations: [WEAKNESS] Onset: 3 Episodic Menopausal disorders (1 source) Hormone replacement therapy; Translations: [HORMONE REPLACEMENT THERAPY] Onset: 3 Episodic Mood disorders (1 source) Major depressive disorder, single episode, unspecified; Translations: [SURESH DEPRESS D/O SINGLE EPIS UNS] Onset: 2 Chronic Osteoarthritis (1 source) Unspecified osteoarthritis, unspecified site; Translations: [UNSPECIFIED OSTEOARTHRITIS UNS SITE] Onset: 2 Chronic Other aftercare (1 source) intermediate (current) use of aspirin; Translations: [GROUP HOME CURRENT USE OF ASPIRIN] Onset: 3 Episodic Other aftercare (1 source) Other quill skinner (current) drug therapy; Translations: [OTH SMOKING PIPE MAKER CURRENT DRUG THERAPY] Onset: 3 Episodic Other aftercare (1 source) intermediate (current) use of insulin; Translations: [GROUP HOME CURRENT USE OF INSULIN] Onset: 3 Episodic Other and ill-defined cerebrovascular disease (2 sources) Cerebral ischemia; Translations: [Transient cerebral ischemic attack, unspecified] Onset: 9 02-05-2019 Chronic Other connective tissue disease (4 sources) Pain in left leg; Translations: [PAIN IN LEFT LEG] Onset: 3 Episodic Other diseases of kidney and ureters (3 sources) Secondary hyperparathyroidism; Translations: [Secondary hyperparathyroidism of renal origin] Chronic Other diseases of kidney and ureters (1 source) Secondary hyperparathyroidism of renal origin Chronic Other diseases of kidney and ureters (1 source) Unspecified hydronephrosis; Translations: [Unspecified hydronephrosis] Onset: 3 Episodic Other ear and sense organ disorders (1 source) Unspecified hearing loss, unspecified ear; Translations: [UNS HEARING LOSS UNSPECIFIED EAR] Onset: 2 Chronic Other inflammatory condition of skin (1 source) Psoriasis, unspecified; Translations: [PSORIASIS UNSPECIFIED] Onset: 2 Chronic Other nutritional; endocrine; and metabolic disorders (1 source) Morbid (severe) obesity due to excess calories; Translations: [MORBID SEVERE OBES D/T EXCESS ISAAC] Onset: 3 Chronic Other nutritional; endocrine; and metabolic disorders (1 source) Other disorders of phosphorus metabolism; Translations: [OTH DISORDERS PHOSPHORUS METABOLISM] Onset: 3 Chronic Other nutritional; endocrine; and metabolic disorders (1 source) Body mass index (BMI) 40.0-44.9, adult; Translations: [BODY MASS INDEX BMI 40.0-44.9 ADULT] Onset: 3 Chronic Other nutritional; endocrine; and metabolic disorders (1 source) Obesity, unspecified; Translations: [OBESITY UNSPECIFIED] Onset: 3 Chronic Other screening for suspected conditions (not mental disorders or infectious disease) (1 source) Other specified abnormal findings of blood chemistry; Translations: [OTH SPEC ABNORMAL FINDINGS BLD CHEM] Onset: 3 Episodic Residual codes; unclassified (1 source) Dependence on wheelchair; Translations: [DEPENDENCE ON WHEELCHAIR] Onset: 3 Chronic Residual codes; unclassified (1 source) Sleep apnea, unspecified; Translations: [SLEEP APNEA UNSPECIFIED] Onset: 2 Chronic Screening and history of mental health and substance abuse codes (1 source) Personal history of nicotine dependence; Translations: [PERSONAL HISTORY OF NICOTINE DEPEND] Onset: 3 Episodic Thyroid disorders (1 source) Hypothyroidism, unspecified; Translations: [HYPOTHYROIDISM UNSPECIFIED] Onset: 3 Chronic Unclassified (1 source) CONTACT W/AND (SUSP) EXPOS COVID-19; Translations: [CONTACT W/AND (SUSP) EXPOS COVID-19] Onset: 3 Unclassified (1 source) ACIDOSIS UNSPECIFIED; Translations: [ACIDOSIS UNSPECIFIED] Onset: 3 Urinary tract infections (4 sources) Urinary tract infection, site not specified; Translations: [UTI SITE NOT SPECIFIED] Onset: 3 Episodic Past or Other Problems Problem Classification Problem Date Documented Da te Episodic/Chronic Other circulatory disease (1 source) Personal history of transient ischemic attack (TIA), and cerebral infarction without residual deficits; Translations: [PERS HX TIA AND CI NO RESID DEFICIT] Onset: 10-25-2021 Episodic Other connective tissue disease (2 sources) Muscle weakness; Translations: [Muscle weakness (generalized)] Onset: 02-05-2019 02-05-2019 Episodic Other gastrointestinal disorders (2 sources) Oral phase dysphagia; Translations: [Dysphagia, oral phase] Onset: 02-05-2019 02-05-2019 Episodic Other skin disorders (4 sources) Rash and other nonspecific skin eruption; Translations: [RASH OTH NONSPECIFIC SKIN ERUPTION] Onset: 03-14-2022 Episodic Residual codes; unclassified (1 source) Acquired absence of other specified parts of digestive tract; Translations: [ACQ ABSENCE OTH PART DIGESTV TRACT] Onset: 10-25-2021 Episodic Skin and subcutaneous tissue infections (4 sources) Cellulitis of left lower limb; Translations: [CELLULITIS OF LEFT LOWER LIMB] Onset: 10-24-2021 Episodic Results Test Name Value Interpretation Reference Range Facility Cult,Urineon 01-19-2023 Cult,Urine Specimen Description .CATHETERIZED URINE Culture NO SIGNIFICANT GROWTH Report Status FINAL 01/19/2023 Normal [facility] Comment on above: Performed By: #### U RC #### [address] [id number] Direct Care Supervisor: Fredis Miller MD [facility] [address] [place] [address] [place] [address] Direct Care Supervisor: Rao Espinosa MD UA w/Reflex Cultureon 2022 Bilirubin, SemiQt,Ur Negative Normal NEG [facility] Comment on above: Performed By: #### U RADHAO, UAX #### [facility] [address] [place] [address] Direct Care Supervisor: Rao Espinosa MD Blood, Urine 2+ Abnormal NEG [facility] Comment on above: Performed By: #### U RADHAO, UAX #### [facility] [address] [place] [address] Direct Care Supervisor: Rao Espinosa MD Clarity (U) Cloudy Abnormal CLEAR [facility] Comment on above: Performed By: #### U RADHAO, UAX #### [facility] [address] [place], [place] [id number] Direct Care Supervisor: Rao Espinosa MD Color (U) Yellow Normal YEL [facility] Comment on above: Performed By: #### U MICAO, UAX #### [facility] [address] [place], [place] [id number] Direct Care Supervisor: Rao Espinosa MD Glucose Ql (U) TRACE Abnormal NEG [facility] Comment on above: Performed By: #### U MICAO, UAX #### [facility] [address] [place], [place] [id number] Direct Care Supervisor: Rao Espinosa MD Ketones Ql (U) Negative Normal NEG [facility] Comment on above: Performed By: #### U MICAO, UAX #### [facility] [address] [place] [address] [place], [place] [id number] Direct Care Supervisor: Rao Espinosa MD Leukocyte esterase Test strip Ql (U) LARGE Abnormal NEG [facility] Comment on above: Performed By: #### U MICAO, UAX #### [facility] [address] [place] [address] [place], [place] [id number] Direct Care Supervisor: Rao Espinosa MD Nitrite,Ur Positive Abnormal NEG [facility] Comment on above: Performed By: #### U MICAO, UAX #### [facility] [address] [place], [place] [id number] Direct Care Supervisor: Rao Espinosa MD PH,Ur 7.0 Normal 5.0-9.0 [facility] Comment on above: Performed By: #### U MICAO, UAX #### [facility] [address] [place] [address] [place], [place] [id number] Direct Care Supervisor: Rao Espinosa MD Protein Ql (U) 1+ mg/dL Abnormal NEG [facility] Comment on above: Performed By: #### U MICAO, UAX #### [facility] [address] [place], [place] [id number] Direct Care Supervisor: Rao Espinosa MD Spec. [place],Ur 1.010 Normal 1.010-1.020 [facility] Comment on above: Performed By: #### U MICAO, UAX #### [facility] [address] [place], [place] [id number] Direct Care Supervisor: Rao Espinosa MD Urobilinogen,Ur Normal Normal 0.0-1.0 [facility] Comment on above: Performed By: #### U MICAO, UAX #### [facility] [address] [place], [place] [id number] Direct Care Supervisor: Rao Espinosa MD Urinalysis,Microon 3 Bacteria 3+ Abnormal NONE [facility] Comment on above: Performed By: #### U MICAO, UAX #### [facility] [address] [place], [place] [id number] Direct Care Supervisor: Rao Espinosa MD Epithelial cells LM Ql (Urine sed) 0 TO 2 Normal 0-5 [facility] Comment on above: Performed By: #### U MICAO, UAX #### [facility] [address] [place], [place] [id number] Direct Care Supervisor: Rao Espinosa MD Urine RBC's 5 TO 10 Normal 0-2 [facility] Comment on above: Performed By: #### U MICAO, UAX #### [facility] [address] [place], [place] [id number] Direct Care Supervisor: Rao Espinosa MD Urine WBC's GREATER THAN 100 Normal 0-5 [facility] Comment on above: Performed By: #### U MICAO, UAX #### [facility] [address] [place] [address] Direct Care Supervisor: Rao Espinosa MD Glucose Poct Glucometerson 0 09-04-2022 Glucose [Mass/Vol] 122 mg/dL Normal [facility] Comment on above: Result Comment: [facility] [place] [facility] [place] Glucose Reference Range is dependent on time and content of last meal. Glucose of more than 200 mg/dL in a nonstressed, ambulatory subject supports the diagnosis of Diabetes Mellitus. PERFORMED BY: [facility] [address] [place] [address] PATHOLOGIST ASSEM[employer] BRANDEN WHATLEY M.D. Performed By: #### G LULS #### Point of Care testing , Renal Function Panelon 09-04 Albumin [Mass/Vol] 2.4 g/dL Low 3.5-5.7 [facility] Comment on above: Performed By: #### G LULS #### Point of Care testing , Anion gap [Moles/Vol] 14.8 mmol/L Normal 6.0-15.0 [facility] Comment on above: Performed By: #### G LULS #### Point of Care testing , Calcium [Mass/Vol] 8.6 mg/dL Normal 8.6-10.3 [facility] Comment on above: Performed By: #### G LULS #### Point of Care testing , Chloride [Moles/Vol] 99 mmol/L Normal 98-107 [facility] Comment on above: Performed By: #### G LULS #### Point of Care testing , CO2 [Moles/Vol] 24.7 mmol/L Normal 21.0-31.0 [facility] Comment on above: Performed By: #### G LULS #### Point of Care testing , Creatinine [Mass/Vol] 6.52 mg/dL Significan t change up 0.70-1.30 [facility] Comment on above: Performed By: #### G LULS #### Point of Care testing , Creatinine Clr Calc Pharmacy 16.01 [facility] Comment on above: Result Comment: PERF ORMED BY: [facility] [address] [place] [address] PATHOLOGIST ASSEMBL[employer]MENT JIANLAN SUN M.D. Performed By: #### G LULS #### Point of Care testing , GFR/1.73 sq M.predicted MDRD (S/P/Bld) [Vol rate/Area] 8.483 mL/min/{1.73_m2} Normal [facility] Comment on above: Performed By: #### G LULS #### Point of Care testing , Glucose [Mass/Vol] 115 mg/dL High 70-100 [facility] Comment on above: Result Comment: [place] Glucose Reference Range is dependent on time and content of last meal. Glucose of more than 200 mg/dL in a nonstressed, ambulatory subject supports the diagnosis of Diabetes Mellitus. ADA recommended reference range Performed By: #### G LULS #### Point of Care testing , Phosphate [Mass/Vol] 6.4 mg/dL Normal 3.7-7.2 [facility] Comment on above: Performed By: #### G LULS #### Point of Care testing , Potassium [Moles/Vol] 4.5 mmol/L Normal 3.5-5.1 [facility] Comment on above: Performed By: #### G LULS #### Point of Care testing , Sodium [Moles/Vol] 134 mmol/L Low 136-145 [facility] Comment on above: Performed By: #### G LULS #### Point of Care testing , Urea nitrogen [Mass/Vol] 76 mg/dL High 7-25 [facility] Comment on above: Performed By: #### G LULS #### Point of Care testing , [facility] SARS-CoV-2 (COVID-19) RNA JASON+probe Ql (Unsp spec) Negative Normal Negative [facility] Comment on above: Order Comment: Healt hcare Worker?: N Result Comment: Testing for SARS-CoV-2 by RT-PCR This test was developed and its performance characteristics determined by [employer] and validated at the [facility]. This test has not been FDA cleared or approved. This test has been authorized by FDA under an Emergency Use Authorization (EUA). This test has been validated in accordance with the FDA's Guidance Document (Policy for Diagnostics Testing in Laboratories Certified to Perform High Complexity Testing under CLIA prior to Emergency Use Authorization for Coronavirus Disease-2019 during the Public Health Emergency) issued on July 15, 2019. This test is only authorized for the duration of time the declaration that circumstances exist justifying the authorization of the emergency use of in vitro diagnostic tests for detection of SARS-CoV-2 virus and/or diagnosis of COVID-19 infection under section 564(b)(1) of the Act, 21 U.S.C. 360bbb-3(b)(1), unless the authorization is terminated or revoked sooner. PERFORMED BY: [place] [address] PATHOLOGIST ASSEM[employer] BRANDEN WHATLEY M.D. Performed By: #### F E and TIBC, [id number], ODALIS #### [address] Glucose Poct Glucometerson 0 09-03-2022 Glucose [Mass/Vol] 152 mg/dL Normal [facility] Comment on above: Result Comment: [facility] [place] Glucose Reference Range is dependent on time and content of last meal. Glucose of more than 200 mg/dL in a nonstressed, ambulatory subject supports the diagnosis of Diabetes Mellitus. PERFORMED BY: [place] [address] PATHOLOGIST [employer]SEM[employer] BRANDEN WHATLEY M.D. Performed By: #### G LULS #### Point of Care testing , Glucose [Mass/Vol] 111 mg/dL Normal [facility] Comment on above: Result Comment: [facility] [place] Glucose Reference Range is dependent on time and content of last meal. Glucose of more than 200 mg/dL in a nonstressed, ambulatory subject supports the diagnosis of Diabetes Mellitus. PERFORMED BY: [place] [address] PATHOLOGIST ASSEM[employer] BRANDEN WHATLEY M.D. Performed By: #### G LULS #### Point of Care testing , Glucose [Mass/Vol] 106 mg/dL Normal [facility] Comment on above: Result Comment: [facility] [place] Glucose Reference Range is dependent on time and content of last meal. Glucose of more than 200 mg/dL in a nonstressed, ambulatory subject supports the diagnosis of Diabetes Mellitus. PERFORMED BY: [facility] [address] [place] [address] PATHOLOGIST ASSEM[employer] BRANDEN WHATLEY M.D. Performed By: #### G LULS #### Point of Care testing , Glucose [Mass/Vol] 140 mg/dL Normal [facility] Comment on above: Result Comment: [facility] [place] Glucose Reference Range is dependent on time and content of last meal. Glucose of more than 200 mg/dL in a nonstressed, ambulatory subject supports the diagnosis of Diabetes Mellitus. PERFORMED BY: [facility] [address] [place] [address] PATHOLOGIST ASSEM[employer] BRANDEN WHATLEY M.D. Performed By: #### G LULS #### Point of Care testing , Hemogram CBC Without Diffon 09-03-2022 Erythrocyte distribution width (RBC) [Ratio] 14.9 % High 12.0-14.8 [facility] Comment on above: Performed By: #### G LULS #### Point of Care testing , Hematocrit (Bld) [Volume fraction] 25.1 % Low 38.8-50.0 [facility] Comment on above: Performed By: #### G LULS #### Point of Care testing , Hemoglobin (Bld) [Mass/Vol] 8.4 g/dL Low 13.0-17.0 [facility] Comment on above: Performed By: #### G LULS #### Point of Care testing , MCH (RBC) [Entitic mass] 29.5 pg Normal 27.5-35.2 [facility] Comment on above: Performed By: #### G LULS #### Point of Care testing , MCV (RBC) [Entitic vol] 87.8 fL Normal 83.5-101 [facility] Comment on above: Performed By: #### G LULS #### Point of Care testing , Mean Corpuscular HGB Conc 33.5 g/dL Normal 32.5-35.6 [facility] Comment on above: Performed By: #### G LULS #### Point of Care testing , Platelet mean volume (Bld) [Entitic vol] 8.0 fL Normal 6.6-10.1 [facility] Comment on above: Result Comment: PERF ORMED BY: [place] [address] PATHOLOGIST ASSEM[employer] BRANDEN WHATLEY M.D. Performed By: #### G LULS #### Point of Care testing , Platelets (Bld) [#/Vol] 111 10*3/uL Significant change down 150-450 [facility] Comment on above: Performed By: #### G LULS #### Point of Care testing , RBC (Bld) [#/Vol] 2.86 10*6/uL Low 3.90-5.60 [facility] Comment on above: Performed By: #### G LULS #### Point of Care testing , WBC (Bld) [#/Vol] 8.1 10*3/uL Normal 4.1-10.5 [facility] Comment on above: Performed By: #### G LULS #### Point of Care testing , Hepatitis Acute Panelon 08-13 HBsAg Screen Negative Normal Negative [facility] Comment on above: Order Comment: pt no t in room Performed By: #### F E and TIBC, [id number], ODALIS #### [facility] [address] [place] [address] Hepatitis A Antibody IgM Negative Normal Negative [facility] Comment on above: Order Comment: pt no t in room Performed By: #### F E and TIBC, [id number], ODALIS #### [facility] [address] [place] [address] Hepatitis B Core Antibody IgM Negative Normal Negative [facility] Comment on above: Order Comment: pt no t in room Result Comment: Ve rified by repeat analysis Performed By: #### F E and TIBC, [id number], ODALIS #### [facility] [address] [place] [address] Hepatitis C Virus Antibody Non-Reactive Normal Non Reactive [facility] Comment on above: Order Comment: pt no t in room Performed By: #### F E and TIBC, [id number], ODALIS #### [address] Interpretation Hepatitis C Normal . [facility] Comment on above: Order Comment: pt no t in room Result Comment: Not infected with HCV unless early or acute infection is suspected (which may be delayed in an immunocompromised individual), or other evidence exists to indicate HCV infection. Performed By: #### F E and TIBC, [id number], ODALIS #### [address] Hepatitis B Core Antibodyon 09-03-2022 Hepatitis B Core Antibody Negative Normal Negative [facility] Comment on above: Order Comment: pt no t in room Result Comment: Perf ormed at: - [facility] [id number] Direct Care Supervisor: Mata Pérez PhD, Phone: [phone] PERFORMED BY: [place] [address] PATHOLOGIST ASSEM[employer] BRANDEN WHATLEY M.D. Performed By: #### F E and TIBC, [id number], ODALIS #### [address] Hepatitis B Surface Antibody on 09-03-2022 Hepatitis B Surface Antibody Reactive Normal . [facility] Comment on above: Order Comment: pt no t in room Result Comment: Non Reactive: Inconsistent with immunity, less than 10 mIU/mL Reactive: Consistent with immunity, greater than 9.9 mIU/mL Performed By: #### F E and TIBC, [id number], ODALIS #### [facility] [address] [place] [address] Renal Function Panelon 09-03 Albumin [Mass/Vol] 2.4 g/dL Low 3.5-5.7 [facility] Comment on above: Performed By: #### G LULS #### Point of Care testing , Anion gap [Moles/Vol] 16.5 mmol/L High 6.0-15.0 [facility] Comment on above: Performed By: #### G LULS #### Point of Care testing , Calcium [Mass/Vol] 8.7 mg/dL Normal 8.6-10.3 [facility] Comment on above: Performed By: #### G LULS #### Point of Care testing , Chloride [Moles/Vol] 101 mmol/L Normal 98-107 [facility] Comment on above: Performed By: #### G LULS #### Point of Care testing , CO2 [Moles/Vol] 22.4 mmol/L Normal 21.0-31.0 [facility] Comment on above: Performed By: #### G LULS #### Point of Care testing , Creatinine [Mass/Vol] 8.19 mg/dL Significan t change up 0.70-1.30 [facility] Comment on above: Performed By: #### G LULS #### Point of Care testing , Creatinine Clr Calc Pharmacy 12.70 [facility] Comment on above: Result Comment: PERF ORMED BY: [facility] [address] [place] [address] PATHOLOGIST ASSEM[employer] BRANDEN WHATLEY M.D. Performed By: #### G LULS #### Point of Care testing , GFR/1.73 sq M.predicted MDRD (S/P/Bld) [Vol rate/Area] 6.452 mL/min/{1.73_m2} [facility] Comment on above: Performed By: #### G LULS #### Point of Care testing , Glucose [Mass/Vol] 112 mg/dL High 70-100 [facility] Comment on above: Result Comment: [place] Glucose Reference Range is dependent on time and content of last meal. Glucose of more than 200 mg/dL in a nonstressed, ambulatory subject supports the diagnosis of Diabetes Mellitus. ADA recommended reference range Performed By: #### G LULS #### Point of Care testing , Phosphate [Mass/Vol] 6.7 mg/dL Normal 3.7-7.2 [facility] Comment on above: Performed By: #### G LULS #### Point of Care testing , Potassium [Moles/Vol] 4.9 mmol/L Normal 3.5-5.1 [facility] Comment on above: Performed By: #### G LULS #### Point of Care testing , Sodium [Moles/Vol] 135 mmol/L Low 136-145 [facility] Comment on above: Performed By: #### G LULS #### Point of Care testing , Urea nitrogen [Mass/Vol] 99 mg/dL High 7-25 [facility] Comment on above: Performed By: #### G LULS #### Point of Care testing , Stool Occult Blood (Immuno)o n 09-03-2022 Stool Occult Blood (Immuno) Occult Blood (Immuno) Positive for Occult Blood by Immunochemical Methodology Reference range = Negative PERFORMED BY: [place] [address] PATHOLOGIST ASSEM[employer] BRANDEN WHATLEY M.D. [facility] Comment on above: Performed By: #### G LULS #### Point of Care testing , XR chest 1V portableon 09-03 XR chest 1V portable [facility] [place] [address] XRay Report Signed Patient: Matt Kelly MR#: [id number] : 1950 Acct:[id number] Age/Sex: 71 / M ADM Date: 08/30/22 Loc: Room: [address] [place] [address] Type: ADM IN Attending Dr: Eldon López DO Copies to: MD Eldon Hurst DO Ordering Provider: Lluvia Curran MD Date of Service: 09/03/22 XR/XR chest 1V portable: R/O TB for Dialysis XR chest 1V portable 09/03/2022 11:46 AM SIGNS AND SYMPTOMS: R/O TB for Dialysis PROTOCOL: Frontal radiograph of the chest COMPARISON: None FINDINGS: The trachea is midline. There is a dual lumen tunneled right IJ catheter was sent position. No pneumothorax. Atherosclerotic changes are noted in the thoracic aorta. The heart and mediastinal structures are within normal limits. The lung parenchyma is clear. The bony thorax is intact. XR/XR chest 1V portable IMPRESSION: There is a dual lumen tunneled right IJ catheter was sent position. No pneumothorax. Cardiopulmonary pathology. Impression dictated by: Rafi Morales M.D.09/03/2022 3:02 PM Dictation Location: [place] [address] Transcribed By: [facility] 09/03/22 1502 Dictated By: Rafi Morales II, MD 09/03/22 1501 Signed By: 09/03/22 1502 Normal [facility] Complete Blood Count Auto Di ffon 09-02-2022 Basophils (Bld) [#/Vol] 0.1 10*3/uL Normal 0.0-0.2 [facility] Comment on above: Result Comment: PERF ORMED BY: [facility] [address] [place] [address] PATHOLOGIST ASSEM[employer] BRANDEN WHATLEY M.D. Performed By: #### G LULS #### Point of Care testing , Basophils/100 WBC (Bld) 0.4 % Normal . [facility] Comment on above: Performed By: #### G LULS #### Point of Care testing , Eosinophils (Bld) [#/Vol] 0.1 10*3/uL Normal 0.0-0.45 [facility] Comment on above: Performed By: #### G LULS #### Point of Care testing , Eosinophils/100 WBC (Bld) 0.5 % Normal . [facility] Comment on above: Performed By: #### G LULS #### Point of Care testing , Erythrocyte distribution width (RBC) [Ratio] 14.8 % Normal 12.0-14.8 [facility] Comment on above: Performed By: #### G LULS #### Point of Care testing , Hematocrit (Bld) [Volume fraction] 26.7 % Low 38.8-50.0 [facility] Comment on above: Performed By: #### G ZAC #### Point of Care testing , Hemoglobin (Bld) [Mass/Vol] 8.7 g/dL Low 13.0-17.0 [facility] Comment on above: Performed By: #### G SUSIELS #### Point of Care testing , Lymphocytes (Bld) [#/Vol] 0.6 10*3/uL Low 1.00-4.8 [facility] Comment on above: Performed By: #### G SUSIELS #### Point of Care testing , Lymphocytes/100 WBC (Bld) 3.6 % Normal . [facility] Comment on above: Performed By: #### G SUSIELS #### Point of Care testing , MCH (RBC) [Entitic mass] 28.6 pg Normal 27.5-35.2 [facility] Comment on above: Performed By: #### Young RICHARDSLS #### Point of Care testing , MCV (RBC) [Entitic vol] 87.9 fL Normal 83.5-101 [facility] Comment on above: Performed By: #### Young FRANK #### Point of Care testing , Mean Corpuscular HGB Conc 32.5 g/dL Normal 32.5-35.6 [facility] Comment on above: Performed By: #### G ZAC #### Point of Care testing , Monocytes (Bld) [#/Vol] 0.9 10*3/uL High 0.0-0.8 [facility] Comment on above: Performed By: #### G ZAC #### Point of Care testing , Monocytes/100 WBC (Bld) 5.9 % Normal . [facility] Comment on above: Performed By: #### G SUSIELS #### Point of Care testing , Neutrophils (Bld) [#/Vol] 13.9 10*3/uL High 1.8-7.7 [facility] Comment on above: Performed By: #### G SUSIELS #### Point of Care testing , Neutrophils/100 WBC (Bld) 89.6 % Normal . [facility] Comment on above: Performed By: #### G ZAC #### Point of Care testing , NRBC% 0.1 /100{WBC} Normal 0-0.5 [facility] Comment on above: Performed By: #### G ZAC #### Point of Care testing , Platelet mean volume (Bld) [Entitic vol] 7.8 fL Normal 6.6-10.1 [facility] Comment on above: Performed By: #### G ZAC #### Point of Care testing , Platelets (Bld) [#/Vol] 146 10*3/uL Low 150-450 [facility] Comment on above: Performed By: #### G ZAC #### Point of Care testing , RBC (Bld) [#/Vol] 3.04 10*6/uL Low 3.90-5.60 [facility] Comment on above: Performed By: #### Young FRANK #### Point of Care testing , WBC (Bld) [#/Vol] 15.5 10*3/uL High 4.1-10.5 [facility] Comment on above: Performed By: #### Young FRANK #### Point of Care testing , Comprehensive Metabolic Pane real 09-02-2022 Albumin [Mass/Vol] 2.5 g/dL Low 3.5-5.7 [facility] Comment on above: Performed By: #### C BC, RENAL, CMP ####[facility] [id number] [place] [address] [facility] Albumin/Globulin [Mass ratio] 0.8 {ratio} Normal [facility] Comment on above: Performed By: #### C BC, RENAL, CMP ####[facility] [id number] [place] [address] [facility] ALP [Catalytic activity/Vol] 97 U/L Normal 34-104 [facility] Comment on above: Performed By: #### C BC, RENAL, CMP ####[facility] [id number] [place] [address] [facility] ALT [Catalytic activity/Vol] 27 U/L Normal 7-52 [facility] Comment on above: Performed By: #### C BC, RENAL, CMP ####[facility] [place] [address] [facility] Anion gap [Moles/Vol] 15.2 mmol/L High 6.0-15.0 [facility] Comment on above: Performed By: #### C BC, RENAL, CMP ####[place] [id number] [place] [address] [facility] AST [Catalytic activity/Vol] 14 U/L Normal 13-39 [facility] Comment on above: Performed By: #### C BC, RENAL, CMP ####[place] [id number] [place] [address] [facility] Bilirubin [Mass/Vol] 0.3 mg/dL Normal 0.3-1.0 [facility] Comment on above: Performed By: #### C BC, RENAL, CMP ####[address] [address] [facility] Calcium [Mass/Vol] 8.5 mg/dL Low 8.6-10.3 [facility] Comment on above: Performed By: #### C BC, RENAL, CMP ####[address] [address] [facility] Chloride [Moles/Vol] 106 mmol/L Normal 98-107 [facility] Comment on above: Performed By: #### C BC, RENAL, CMP ####[place] [address] [place] [address] [facility] CO2 [Moles/Vol] 20.3 mmol/L Low 21.0-31.0 [facility] Comment on above: Performed By: #### C BC, RENAL, CMP ####[address] [address] [facility] Creatinine [Mass/Vol] 6.98 mg/dL High 0.70-1.30 [facility] Comment on above: Performed By: #### C BC, RENAL, CMP ####[place] [address] [place] [address] [facility] Creatinine Clr Calc Pharmacy 14.33 Normal [facility] Comment on above: Performed By: #### C BC, RENAL, CMP ####[place] [id number] [place] [id number] [facility] GFR/1.73 sq M.predicted MDRD (S/P/Bld) [Vol rate/Area] 7.816 mL/min/{1.73_m2} [facility] Comment on above: Performed By: #### C BC, RENAL, CMP ####[place] [id number] [place] [id number] [facility] Globulin (S) [Mass/Vol] 3.1 g/dL [facility] Comment on above: Performed By: #### C BC, RENAL, CMP ####[place] [id number] [place] [id number] [facility] Glucose [Mass/Vol] 118 mg/dL High 70-100 [facility] Comment on above: Result Comment: [facility] [place] Glucose Reference Range is dependent on time and content of last meal. Glucose of more than 200 mg/dL in a nonstressed, ambulatory subject supports the diagnosis of Diabetes Mellitus. ADA recommended reference range Performed By: #### C BC, RENAL, CMP ####[place] [id number] [facility] Potassium [Moles/Vol] 5.5 mmol/L High 3.5-5.1 [facility] Comment on above: Performed By: #### C BC, RENAL, CMP ####[place] [id number] [facility] Protein [Mass/Vol] 5.6 g/dL Low 6.4-8.9 [facility] Comment on above: Performed By: #### C BC, RENAL, CMP ####[place] [id number] [facility] Sodium [Moles/Vol] 136 mmol/L Normal 136-145 [facility] Comment on above: Performed By: #### C BC, RENAL, CMP ####[place] [id number] [facility] Urea nitrogen [Mass/Vol] 92 mg/dL High 7-25 [facility] Comment on above: Performed By: #### C BC, RENAL, CMP ####[facility] [address] [place] [address] [place] Consultation Noteon 09-03-19 Consultation Note [phone] [id number]:127 Normal [facility] Glucose Poct Glucometerson 0 09-02-2022 Glucose [Mass/Vol] 161 mg/dL Normal [facility] Comment on above: Result Comment: [facility] [place] Glucose Reference Range is dependent on time and content of last meal. Glucose of more than 200 mg/dL in a nonstressed, ambulatory subject supports the diagnosis of Diabetes Mellitus. PERFORMED BY: [facility] [address] [place] [id number] PATHOLOGIST ASSEM[employer] BRANDEN WHATLEY M.D. Performed By: #### G LULS #### Point of Care testing , Commemt1 Glu2: Cleaned Meter Normal [facility] Comment on above: Result Comment: PERF ORMED BY: [facility] [address] [place] [address] PATHOLOGIST ASSEM[employer] BRANDEN WHATLEY M.D. Performed By: #### G LULS #### Point of Care testing , Glucose [Mass/Vol] 244 mg/dL Normal [facility] Comment on above: Result Comment: [facility] [place] Glucose Reference Range is dependent on time and content of last meal. Glucose of more than 200 mg/dL in a nonstressed, ambulatory subject supports the diagnosis of Diabetes Mellitus. Performed By: #### G LULS #### Point of Care testing , Insurance Correspondence Off iceon 09-02-2022 Insurance Correspondence Office [id number]:[id number] Normal [facility] Renal Function Panelon 09-02 Phosphate [Mass/Vol] 6.5 mg/dL Normal 3.7-7.2 [facility] Comment on above: Result Comment: PERF ORMED BY: [facility] [address] [place] [id number] PATHOLOGIST ASSEM[employer] BRANDEN WHATLEY M.D. Performed By: #### C BC, RENAL, CMP ####[address] Complete Blood Count Auto Di ffon 09-01-2022 Basophils (Bld) [#/Vol] 0.1 10*3/uL Normal 0.0-0.2 [facility] Comment on above: Result Comment: PERF ORMED BY: [facility] [address] [place] [address] PATHOLOGIST AS[employer] BRANDEN WHATLEY M.D. Performed By: #### R ENAL, CBC, CMP ####[address] Basophils/100 WBC (Bld) 1.2 % Normal . [facility] Comment on above: Performed By: #### R ENAL, CBC, CMP ####[address] Eosinophils (Bld) [#/Vol] 0.3 10*3/uL Normal 0.0-0.45 [facility] Comment on above: Performed By: #### R ENAL, CBC, CMP ####[address] Eosinophils/100 WBC (Bld) 5.5 % Normal . [facility] Comment on above: Performed By: #### R ENAL, CBC, CMP ####[address] Erythrocyte distribution width (RBC) [Ratio] 14.7 % Normal 12.0-14.8 [facility] Comment on above: Performed By: #### R ENAL, CBC, CMP ####[address] Hematocrit (Bld) [Volume fraction] 25.2 % Low 38.8-50.0 [facility] Comment on above: Performed By: #### R ENAL, CBC, CMP ####[address] Hemoglobin (Bld) [Mass/Vol] 8.3 g/dL Low 13.0-17.0 [facility] Comment on above: Performed By: #### R ENAL, CBC, CMP ####[address] Lymphocytes (Bld) [#/Vol] 0.9 10*3/uL Low 1.00-4.8 [facility] Comment on above: Performed By: #### R ENAL, CBC, CMP ####[address] Lymphocytes/100 WBC (Bld) 14.6 % Normal . [facility] Comment on above: Performed By: #### R ENDEVORA, CBC, CMP ####[address] MCH (RBC) [Entitic mass] 29.0 pg Normal 27.5-35.2 [facility] Comment on above: Performed By: #### R ENAL, CBC, CMP ####[address] MCV (RBC) [Entitic vol] 87.7 fL Normal 83.5-101 [facility] Comment on above: Performed By: #### R ENAL, CBC, CMP ####[address] Mean Corpuscular HGB Conc 33.0 g/dL Normal 32.5-35.6 [facility] Comment on above: Performed By: #### R ENAL, CBC, CMP ####[address] Monocytes (Bld) [#/Vol] 0.8 10*3/uL Normal 0.0-0.8 [facility] Comment on above: Performed By: #### R ENAL, CBC, CMP ####[address] Monocytes/100 WBC (Bld) 12.6 % Normal . [facility] Comment on above: Performed By: #### R ENAL, CBC, CMP ####[address] Neutrophils (Bld) [#/Vol] 4.0 10*3/uL Normal 1.8-7.7 [facility] Comment on above: Performed By: #### R ENAL, CBC, CMP ####[address] Neutrophils/100 WBC (Bld) 66.1 % Normal . [facility] Comment on above: Performed By: #### R ENAL, CBC, CMP ####[address] NRBC% 0.1 /100{WBC} Normal 0-0.5 [facility] Comment on above: Performed By: #### R ENAL, CBC, CMP ####[address] Platelet mean volume (Bld) [Entitic vol] 7.9 fL Normal 6.6-10.1 [facility] Comment on above: Performed By: #### R ENAL, CBC, CMP ####[address] Platelets (Bld) [#/Vol] 145 10*3/uL Low 150-450 [facility] Comment on above: Performed By: #### R ENAL, CBC, CMP ####[address] RBC (Bld) [#/Vol] 2.87 10*6/uL Low 3.90-5.60 [facility] Comment on above: Performed By: #### R ENAL, CBC, CMP ####[address] WBC (Bld) [#/Vol] 6.1 10*3/uL Normal 4.1-10.5 [facility] Comment on above: Performed By: #### R ENAL, CBC, CMP ####[address] Comprehensive Metabolic Pane real 09-01-2022 Albumin [Mass/Vol] 2.7 g/dL Low 3.5-5.7 [facility] Comment on above: Performed By: #### R TELLY, CBC, CMP ####[facility] [id number] [place] [address] [facility] Albumin/Globulin [Mass ratio] 0.9 {ratio} Normal [facility] Comment on above: Performed By: #### R TELLY, CBC, CMP ####[facility] [id number] [place] [address] [facility] ALP [Catalytic activity/Vol] 107 U/L High 34-104 [facility] Comment on above: Performed By: #### R TELLY, CBC, CMP ####[facility] Spj0425 [place] [address] [facility] ALT [Catalytic activity/Vol] 32 U/L Normal 7-52 [facility] Comment on above: Performed By: #### R TELLY, CBC, CMP ####[facility] [place] [address] [facility] Anion gap [Moles/Vol] 14.1 mmol/L Normal 6.0-15.0 [facility] Comment on above: Performed By: #### R TELLY, CBC, CMP ####[facility] [place] [address] [facility] AST [Catalytic activity/Vol] 21 U/L Normal 13-39 [facility] Comment on above: Performed By: #### R TELLY, CBC, CMP ####[facility] Baq[address]672 [place] [address] [facility] Bilirubin [Mass/Vol] 0.4 mg/dL Normal 0.3-1.0 [facility] Comment on above: Performed By: #### R TELLY, CBC, CMP ####[facility] Rfa7797 [place] [address] [facility] Calcium [Mass/Vol] 8.9 mg/dL Normal 8.6-10.3 [facility] Comment on above: Performed By: #### R TELLY, CBC, CMP ####[place] [id number] [place] [id number] [facility] Chloride [Moles/Vol] 110 mmol/L High 98-107 [facility] Comment on above: Performed By: #### R JANET VARNER, CMP ####[place] [id number] [place] [id number] [facility] CO2 [Moles/Vol] 17.7 mmol/L Low 21.0-31.0 [facility] Comment on above: Performed By: #### Fadia VARNER CBC, CMP ####[address] Creatinine [Mass/Vol] 6.68 mg/dL Significan t change up 0.70-1.30 [facility] Comment on above: Performed By: #### JANET WYNN, CMP ####[address] Creatinine Clr Calc Pharmacy 14.96 [facility] Comment on above: Performed By: #### R JANET VARNER, CMP ####[address] GFR/1.73 sq M.predicted MDRD (S/P/Bld) [Vol rate/Area] 8.239 mL/min/{1.73_m2} [facility] Comment on above: Performed By: #### JANET WYNN, CMP ####[address] Globulin (S) [Mass/Vol] 3.0 g/dL [facility] Comment on above: Performed By: #### R TELLY CBC, CMP ####[place] [id number] [facility] Glucose [Mass/Vol] 90 mg/dL Normal 70-100 [facility] Comment on above: Result Comment: [place] Glucose Reference Range is dependent on time and content of last meal. Glucose of more than 200 mg/dL in a nonstressed, ambulatory subject supports the diagnosis of Diabetes Mellitus. ADA recommended reference range Performed By: #### R TELLY CBC, CMP ####[facility] Uar5185 [place] [address] [facility] Potassium [Moles/Vol] 4.8 mmol/L Normal 3.5-5.1 [facility] Comment on above: Performed By: #### R ENAL, CBC, CMP ####[place] [address] [place] [address] [facility] Protein [Mass/Vol] 5.7 g/dL Low 6.4-8.9 [facility] Comment on above: Performed By: #### R ENAL, CBC, CMP ####[place] [address] [place] [address] [facility] Sodium [Moles/Vol] 137 mmol/L Normal 136-145 [facility] Comment on above: Performed By: #### R ENAL, CBC, CMP ####[address] [address] [facility] Urea nitrogen [Mass/Vol] 83 mg/dL High 7-25 [facility] Comment on above: Performed By: #### R ENAL, CBC, CMP ####[address] [address] [facility] Glucose Poct Glucometerson 0 09-01-2022 Glucose [Mass/Vol] 95 mg/dL Normal [facility] Comment on above: Result Comment: [facility] [place] [place] Glucose Reference Range is dependent on time and content of last meal. Glucose of more than 200 mg/dL in a nonstressed, ambulatory subject supports the diagnosis of Diabetes Mellitus. PERFORMED BY: [facility] [address] [place] [address] PATHOLOGIST [employer] BR[employer]EN WHATLEY M.D. Performed By: #### G LULS #### Point of Care testing , Commemt1 Glu2: Cleaned Meter Normal [facility] Comment on above: Result Comment: PERF ORMED BY: [facility] [address] [place] [id number] PATHOLOGIST [employer] BR[employer]EN WHATLEY M.D. Performed By: #### G LULS #### Point of Care testing , Glucose [Mass/Vol] 96 mg/dL Normal [facility] Comment on above: Result Comment: [place] om Glucose Reference Range is dependent on time and content of last meal. Glucose of more than 200 mg/dL in a nonstressed, ambulatory subject supports the diagnosis of Diabetes Mellitus. Performed By: #### G LULS #### Point of Care testing , Glucose [Mass/Vol] 100 mg/dL Normal [facility] Comment on above: Result Comment: [place] om Glucose Reference Range is dependent on time and content of last meal. Glucose of more than 200 mg/dL in a nonstressed, ambulatory subject supports the diagnosis of Diabetes Mellitus. PERFORMED BY: [facility] [address] [place] [address] PATHOLOGIST [employer] BR[employer]EN WHATLEY M.D. Performed By: #### G LULS ####Point of Care testing, Renal Function Panelon 09-01 Phosphate [Mass/Vol] 7.0 mg/dL Normal 3.7-7.2 [facility] Comment on above: Result Comment: PERF ORMED BY: [facility] [address] [place] [address] PATHOLOGIST [employer] BR[employer] WHATLEY M.D. Performed By: #### R ENAL, CBC, CMP ####[facility] [id number] [place] [id number] [facility] ABO/Rh Retypeon 08-31-2022 ABO/RH Recheck Result Negative Normal [facility] Comment on above: Order Comment: NEEDS DRAWN Result Comment: PERF ORMED BY: [facility] [address] [place] [address] PATHOLOGIST [employer] BR[employer]EN WHATLEY M.D. Basic Metabolic Panelon 08-13 Anion gap [Moles/Vol] 16.5 mmol/L High 6.0-15.0 [facility] Comment on above: Performed By: #### F E and TIBC, [id number], ODALIS #### [facility] [address] [place] [id number] [facility] Calcium [Mass/Vol] 8.3 mg/dL Low 8.6-10.3 [facility] Comment on above: Performed By: #### F E and TIBC, [id number], ODALIS #### [facility] [address] [place] [address] [place] Chloride [Moles/Vol] 111 mmol/L High 98-107 [facility] Comment on above: Performed By: #### F E and TIBC, [id number], ODALIS #### [facility] [address] [place] [address] [place] CO2 [Moles/Vol] 14.2 mmol/L Low 21.0-31.0 [facility] Comment on above: Performed By: #### F E and TIBC, [id number], ODALIS #### [facility] [address] Creatinine [Mass/Vol] 5.39 mg/dL Significan t change up 0.70-1.30 [facility] Comment on above: Performed By: #### F E and TIBC, [id number], ODALIS #### [facility] [address] [place] [address] [place] Creatinine Clr Calc Pharmacy 18.62 [facility] Comment on above: Performed By: #### F E and TIBC, [id number], ODALIS #### [facility] [address] [place] [address] [place] GFR/1.73 sq M.predicted MDRD (S/P/Bld) [Vol rate/Area] 10.659 mL/min/{1.73_m2} [facility] Comment on above: Performed By: #### F E and TIBC, [id number], ODALIS #### [facility] [address] [place] [address] [place] Glucose [Mass/Vol] 104 mg/dL High 70-100 [facility] Comment on above: Result Comment: [place] Glucose Reference Range is dependent on time and content of last meal. Glucose of more than 200 mg/dL in a nonstressed, ambulatory subject supports the diagnosis of Diabetes Mellitus. ADA recommended reference range Performed By: #### F E and TIBC, [id number], ODALIS #### [facility] [address] Potassium [Moles/Vol] 4.7 mmol/L Normal 3.5-5.1 [facility] Comment on above: Performed By: #### F E and TIBC, [id number], ODALIS #### [facility] [address] Sodium [Moles/Vol] 137 mmol/L Normal 136-145 [facility] Comment on above: Performed By: #### F E and TIBC, [id number], ODALIS #### [facility] [address] Urea nitrogen [Mass/Vol] 73 mg/dL High 7- [facility] Comment on above: Performed By: #### F E and TIBC, [id number], ODALIS #### [address] Complete Blood Count Auto Di ffon 08-31-2022 Basophils (Bld) [#/Vol] 0.0 10*3/uL Normal 0.0-0.2 [facility] Comment on above: Result Comment: PERF ORMED BY: [place] [address] PATHOLOGIST [employer] BR[employer]EN WHATLEY M.D. Performed By: #### B MP, CBC, MG ####[place] [address] [place] Basophils/100 WBC (Bld) 0.8 % Normal . [facility] Comment on above: Performed By: #### B MP, CBC, MG ####[facility] [place] [address] [place] Eosinophils (Bld) [#/Vol] 0.2 10*3/uL Normal 0.0-0.45 [facility] Comment on above: Performed By: #### B MP, CBC, MG ####[facility] [place] [address] [place] Eosinophils/100 WBC (Bld) 4.2 % Normal . [facility] Comment on above: Performed By: #### B MP, CBC, MG ####[address] Erythrocyte distribution width (RBC) [Ratio] 14.9 % High 12.0-14.8 [facility] Comment on above: Performed By: #### B MP, CBC, MG ####[address] Hematocrit (Bld) [Volume fraction] 19.8 % Off scale low 38.8-50.0 [facility] Comment on above: Result Comment: Crit ical Result HCT:19.8 called to and read back by: [id number] on 08/31/2022 11:09:15 by:SULY. Performed By: #### B MP, CBC, MG ####[address] Hemoglobin (Bld) [Mass/Vol] 6.4 g/dL Low 13.0-17.0 [facility] Comment on above: Performed By: #### B MP, CBC, MG ####[address] Lymphocytes (Bld) [#/Vol] 0.8 10*3/uL Low 1.00-4.8 [facility] Comment on above: Performed By: #### B MP, CBC, MG ####[address] Lymphocytes/100 WBC (Bld) 14.6 % Normal . [facility] Comment on above: Performed By: #### B MP, CBC, MG ####[place] [id number] [facility] MCH (RBC) [Entitic mass] 28.7 pg Normal 27.5-35.2 [facility] Comment on above: Performed By: #### B MP, CBC, MG ####[place] [id number] [facility] MCV (RBC) [Entitic vol] 88.3 fL Normal 83.5-101 [facility] Comment on above: Performed By: #### B MP, CBC, MG ####[address] Mean Corpuscular HGB Conc 32.5 g/dL Normal 32.5-35.6 [facility] Comment on above: Performed By: #### B MP, CBC, MG ####[address] Monocytes (Bld) [#/Vol] 0.5 10*3/uL Normal 0.0-0.8 [facility] Comment on above: Performed By: #### B MP, CBC, MG ####[address] Monocytes/100 WBC (Bld) 9.8 % Normal . [facility] Comment on above: Performed By: #### B MP, CBC, MG ####[address] Neutrophils (Bld) [#/Vol] 3.8 10*3/uL Normal 1.8-7.7 [facility] Comment on above: Performed By: #### B MP, CBC, MG ####[address] Neutrophils/100 WBC (Bld) 70.6 % Normal . [facility] Comment on above: Performed By: #### B MP, CBC, MG ####[address] NRBC% 0.0 /100{WBC} Normal 0-0.5 [facility] Comment on above: Performed By: #### B MP, CBC, MG ####[address] Platelet mean volume (Bld) [Entitic vol] 7.7 fL Normal 6.6-10.1 [facility] Comment on above: Performed By: #### B MP, CBC, MG ####[address] Platelets (Bld) [#/Vol] 142 10*3/uL Low 150-450 [facility] Comment on above: Performed By: #### B MP, CBC, MG ####[facility] [id number] RBC (Bld) [#/Vol] 2.24 10*6/uL Low 3.90-5.60 [facility] Comment on above: Performed By: #### B MP, CBC, MG ####[facility] Kyp[address] WBC (Bld) [#/Vol] 5.4 10*3/uL Normal 4.1-10.5 [facility] Comment on above: Performed By: #### B MP, CBC, MG ####[facility] [id number] [address] Ferritinon 08-31-2022 Ferritin [Mass/Vol] 551.8 ng/mL High 23.9-336.2 [facility] Comment on above: Performed By: #### F E and TIBC, [id number], ODALIS #### [facility] [address] Glucose Poct Glucometerson 0 08-31-2022 Commemt1 Glu2: Cleaned Meter [facility] Comment on above: Result Comment: PERF ORMED BY: [place] [address] PATHOLOGIST [employer] BR[employer]EN WHATLEY M.D. Performed By: #### G LULS ####Point of Care testing, Glucose [Mass/Vol] 123 mg/dL Normal [facility] Comment on above: Result Comment: [facility] [place] Glucose Reference Range is dependent on time and content of last meal. Glucose of more than 200 mg/dL in a nonstressed, ambulatory subject supports the diagnosis of Diabetes Mellitus. Performed By: #### G LULS ####Point of Care testing, Commemt1 Glu2: Cleaned Meter [facility] Comment on above: Result Comment: PERF ORMED BY: [facility] [address] [place] [address] PATHOLOGIST AS[employer] BR[employer]EN WHATLEY M.D. Performed By: #### G LULS #### Point of Care testing , Glucose [Mass/Vol] 101 mg/dL Normal [facility] Comment on above: Result Comment: [place] om Glucose Reference Range is dependent on time and content of last meal. Glucose of more than 200 mg/dL in a nonstressed, ambulatory subject supports the diagnosis of Diabetes Mellitus. Performed By: #### G LULS #### Point of Care testing , Commemt1 Glu2: Cleaned Meter Normal [facility] Comment on above: Result Comment: PERF ORMED BY: [place] [phone] PATHOLOGIST AS[employer] BR[employer]EN WHATLEY M.D. Performed By: #### G LULS #### Point of Care testing , Glucose [Mass/Vol] 126 mg/dL Normal [facility] Comment on above: Result Comment: [place] om Glucose Reference Range is dependent on time and content of last meal. Glucose of more than 200 mg/dL in a nonstressed, ambulatory subject supports the diagnosis of Diabetes Mellitus. Performed By: #### G LULS #### Point of Care testing , Glucose [Mass/Vol] 123 mg/dL Normal [facility] Comment on above: Result Comment: [place] Glucose Reference Range is dependent on time and content of last meal. Glucose of more than 200 mg/dL in a nonstressed, ambulatory subject supports the diagnosis of Diabetes Mellitus. PERFORMED BY: [place] [phone] PATHOLOGIST [employer] BR[employer]EN WHATLEY M.D. Performed By: #### F E and TIBC, [id number], ODALIS #### [address] Haptoglobinon 08-31-2022 Haptoglobin 189 mg/dL Normal 44-215 [facility] Comment on above: Result Comment: PERF ORMED BY: [place] [phone] PATHOLOGIST [employer] WHATLEY M.D. Performed By: #### G LULS #### Point of Care testing , Iron and TIBC Profileon 08-13 0-2022 % Iron Saturation 27.5 % Normal 20-50 [facility] Comment on above: Performed By: #### F E and TIBC, [id number], ODALIS #### [facility] [address] [place] [address] [place] Iron [Mass/Vol] 53 ug/dL Normal 50-212 [facility] Comment on above: Performed By: #### F E and TIBC, [id number], ODALIS #### [facility] [address] Total Iron Binding Capacity 193 ug/dL Low 255-450 [facility] Comment on above: Performed By: #### F E and TIBC, [id number], ODALIS #### [facility] [address] [place] [address] [place] Transferrin [Mass/Vol] 138 mg/dL Low 203-362 [facility] Comment on above: Performed By: #### F E and TIBC, [id number], ODALIS #### [facility] [address] [place] [address] LDH Lactate Dehydrogenaseon 08-31-2022 LDH Lactate Dehydrogenase 100 U/L Low 140-271 [facility] Comment on above: Result Comment: PERF ORMED BY: [place] [address] PATHOLOGIST [employer] BR[employer]EN WHATLEY M.D. Performed By: #### G LULS #### Point of Care testing , LeukoReduced RBCon 3 LeukoReduced RBC TRANSFUSED 08/31/22 1822 Normal [facility] Magnesiumon 08-31-2022 Magnesium [Mass/Vol] 1.2 mg/dL Low 1.9-2.7 [facility] Comment on above: Result Comment: PERF ORMED BY: [place] [address] PATHOLOGIST ASSEM[employer] BR[employer]EN WHATLEY M.D. Performed By: #### F E and TIBC, [id number], ODALIS #### [address] Reticulocyte Counton 023 Reticulocyte Number 0.069 10*6/uL Normal 0.024-0.084 [facility] Comment on above: Result Comment: PERF ORMED BY: [address] [place] [address] PATHOLOGIST ASSEM[employer] BR[employer]EN WHATLEY M.D. Performed By: #### G LULS #### Point of Care testing , Reticulocyte Percent 2.7 % High 0.5-1.5 [facility] Comment on above: Performed By: #### G LULS #### Point of Care testing , Type and Screenon 08-31-2022 ABO and Rh group Nom (Bld) Blood group O Rh(D) negative Normal [facility] Comment on above: Order Comment: NEEDS DRAWN Result Comment: PERF ORMED BY: [place] [address] PATHOLOGIST [employer] BR[employer] WHATLEY M.D. Vit. B12/Folate Profileon Cobalamin (Vitamin B12) [Mass/Vol] 616 pg/mL Normal 180-914 [facility] Comment on above: Performed By: #### F E and TIBC, [id number], ODALIS #### [address] Folate 12.5 ng/mL Normal >5.9 [facility] Comment on above: Result Comment: Adrianna te reference range: >5.9 ng/ml The WHO technical consultation on folate and vitamin b12 deficiencies has determined that folate concentrations less than 4 ng/ml are considered deficient. PERFORMED BY: [place] [address] PATHOLOGIST [employer] BR[employer]EN WHATLEY M.D. Performed By: #### F E and TIBC, [id number], ODALIS #### [address] Blood Cultureon 08-30-2022 Bacteria identified Cx Nom (Bld) NO GROWTH 5 DAYS PERFORMED BY: [place] [address] PATHOLOGIST ASSEM[employer] BR[employer]EN WHATLEY M.D. [facility] Comment on above: Performed By: #### G LULS #### Point of Care testing , Bacteria identified Cx Nom (Bld) NO GROWTH 5 DAYS PERFORMED BY: [address] [address] PATHOLOGIST [employer] BR[employer]EN WHATLEY M.D. [facility] Comment on above: Performed By: #### G LULS #### Point of Care testing , CT abdomen pelvis wo conon 0 08-30-2022 CT abdomen pelvis wo con [facility] [place] [address] [place] [id number] Scan Report Signed Patient: Matt Kelly MR#: [id number] : 1950 Acct:[id number] Age/Sex: 71 / M ADM Date: 08/30/22 Loc: ER Room: Type: [facility] ER Attending Dr: Copies to: Ragini Aguilar APRN Ordering Provider: Ragini Aguilar APRN Date of Service: 08/30/22 CT/CT abdomen pelvis wo con: abd pain CT Abdomen and Pelvis withoutcontrast TECHNIQUE: Axial imaging with 2-D reconstruction. . The CT exam was performed using one or more the following dose reduction techniques: Automated exposure control, adjustment of the MA and/or Kv according to patient size, or use of the iterative reconstruction technique. COMPARISON: 03/21/20 History: Renal failure LIMITATIONS: None LOWER THORAX Unremarkable LIVER: Unremarkable GALLBLADDER: Cholecystectomy clips identified. BILE DUCTS: No dilatation SPLEEN: Unremarkable PANCREAS: Unremarkable ADRENAL GLANDS: Similar fatty lesions of the adrenal glands. These are benign findings. KIDNEYS:Large RIGHT staghorn calculus present. Focal LEFT renal cortical calcification. Moderate hydronephrosis and hydroureter on the LEFT. Small 2 mm proximal LEFT ureteral stone suspected. Concern for developing 3.5 cm LEFT inferior pole soft tissue density lesion. The bilateral renal atrophy redemonstrated. AORTA: No abdominal aortic aneurysm identified. Atherosclerosis noted. RETROPERITONEUM: Redemonstration of periaortic, with prominent lymph nodes. MESENTERY:Unremarkabl e SMALL BOWEL: The small bowel loops are nondistended. APPENDIX: The appendix is normal. COLON: Unremarkable URINARY BLADDER: Wooten catheter and nondistended urinary bladder. REPRODUCTIVE SYSTEM: Reproductive structures are unremarkable. PNEUMOPERITONEUM: None PERITONEAL FLUID:None BONY STRUCTURES: Degenerative change ABDOMINAL WALL: Unremarkable CT/CT abdomen pelvis wo con IMPRESSION: Progression of large RIGHT staghorn calculus. Similar atrophic changes of the RIGHT kidney. Interval development of moderate LEFT hydronephrosis and proximal hydroureter. There is potential small stone in region of transition. Cannot exclude other causes of obstruction such as a mass or stricture. Wooten catheter in decompressed urinary bladder. Impression dictated by: Erik Larson M.D.08/30/2022 3:47 PM Dictation Location: [place] [address] Transcribed By: [facility] 08/30/22 1547 Dictated By: Erik Larson DO 08/30/22 1535 Signed By: 08/30/22 1547 Normal [facility] Complete Blood Count Auto Di ffon 08-30-2022 Basophils (Bld) [#/Vol] 0.1 10*3/uL Normal 0.0-0.2 [facility] Comment on above: Result Comment: PERF ORMED BY: [facility] [address] [place] [address] PATHOLOGIST [employer]SEM[employer] BRANDEN WHATLEY M.D. Performed By: #### G LULS #### Point of Care testing , Basophils/100 WBC (Bld) 1.0 % Normal . [facility] Comment on above: Performed By: #### G LULS #### Point of Care testing , Eosinophils (Bld) [#/Vol] 0.4 10*3/uL Normal 0.0-0.45 [facility] Comment on above: Performed By: #### G LULS #### Point of Care testing , Eosinophils/100 WBC (Bld) 4.9 % Normal . [facility] Comment on above: Performed By: #### G LULS #### Point of Care testing , Erythrocyte distribution width (RBC) [Ratio] 14.7 % Normal 12.0-14.8 [facility] Comment on above: Performed By: #### Young FRANK #### Point of Care testing , Hematocrit (Bld) [Volume fraction] 24.2 % Low 38.8-50.0 [facility] Comment on above: Performed By: #### G SUSIELS #### Point of Care testing , Hemoglobin (Bld) [Mass/Vol] 8.0 g/dL Low 13.0-17.0 [facility] Comment on above: Performed By: #### G ZAC #### Point of Care testing , Lymphocytes (Bld) [#/Vol] 1.0 10*3/uL Normal 1.00-4.8 [facility] Comment on above: Performed By: #### G ZAC #### Point of Care testing , Lymphocytes/100 WBC (Bld) 13.4 % Normal . [facility] Comment on above: Performed By: #### Young FRANK #### Point of Care testing , MCH (RBC) [Entitic mass] 29.4 pg Normal 27.5-35.2 [facility] Comment on above: Performed By: #### Young FRANK #### Point of Care testing , MCV (RBC) [Entitic vol] 88.5 fL Normal 83.5-101 [facility] Comment on above: Performed By: #### G SUSIELS #### Point of Care testing , Mean Corpuscular HGB Conc 33.2 g/dL Normal 32.5-35.6 [facility] Comment on above: Performed By: #### G SUSIELS #### Point of Care testing , Monocytes (Bld) [#/Vol] 0.8 10*3/uL Normal 0.0-0.8 [facility] Comment on above: Performed By: #### G SUSIELS #### Point of Care testing , Monocytes/100 WBC (Bld) 16.70 % Normal 0.00-20.00 [facility] Comment on above: Performed By: #### Young FRANK #### Point of Care testing , Monocytes/100 WBC (Bld) 10.1 % Normal . [facility] Comment on above: Performed By: #### Young FRANK #### Point of Care testing , Neutrophils (Bld) [#/Vol] 5.3 10*3/uL Normal 1.8-7.7 [facility] Comment on above: Performed By: #### Young FRANK #### Point of Care testing , Neutrophils/100 WBC (Bld) 70.6 % Normal . [facility] Comment on above: Performed By: #### Young RICHARDSLS #### Point of Care testing , NRBC% 0.1 /100{WBC} Normal 0-0.5 [facility] Comment on above: Performed By: #### Young FRANK #### Point of Care testing , Platelet mean volume (Bld) [Entitic vol] 7.7 fL Normal 6.6-10.1 [facility] Comment on above: Performed By: #### Young FRANK #### Point of Care testing , Platelets (Bld) [#/Vol] 181 10*3/uL Normal 150-450 [facility] Comment on above: Performed By: #### Young FRANK #### Point of Care testing , RBC (Bld) [#/Vol] 2.73 10*6/uL Low 3.90-5.60 [facility] Comment on above: Performed By: #### Young FRANK #### Point of Care testing , WBC (Bld) [#/Vol] 7.4 10*3/uL Normal 4.1-10.5 [facility] Comment on above: Performed By: #### Young RICHARDSLS #### Point of Care testing , Comprehensive Metabolic Pane real 08-30-2022 Albumin [Mass/Vol] 2.9 g/dL Low 3.5-5.7 [facility] Comment on above: Performed By: #### Young FRANK #### Point of Care testing , Albumin/Globulin [Mass ratio] 0.8 {ratio} Normal [facility] Comment on above: Performed By: #### Young FRNAK #### Point of Care testing , ALP [Catalytic activity/Vol] 105 U/L High 34-104 [facility] Comment on above: Performed By: #### G SUSIELS #### Point of Care testing , ALT [Catalytic activity/Vol] 31 U/L Normal 7-52 [facility] Comment on above: Performed By: #### G LULS #### Point of Care testing , Anion gap [Moles/Vol] 14.3 mmol/L Normal 6.0-15.0 [facility] Comment on above: Performed By: #### G LULS #### Point of Care testing , AST [Catalytic activity/Vol] 14 U/L Normal 13-39 [facility] Comment on above: Performed By: #### G SUSIELS #### Point of Care testing , Bilirubin [Mass/Vol] 0.3 mg/dL Normal 0.3-1.0 [facility] Comment on above: Performed By: #### G SUSIELS #### Point of Care testing , Calcium [Mass/Vol] 8.9 mg/dL Normal 8.6-10.3 [facility] Comment on above: Performed By: #### G SUSIELS #### Point of Care testing , Chloride [Moles/Vol] 110 mmol/L High 98-107 [facility] Comment on above: Performed By: #### G SUSIELS #### Point of Care testing , CO2 [Moles/Vol] 17.6 mmol/L Low 21.0-31.0 [facility] Comment on above: Performed By: #### G SUSIELS #### Point of Care testing , Creatinine [Mass/Vol] 6.18 mg/dL High 0.70-1.30 [facility] Comment on above: Performed By: #### G SUSIELS #### Point of Care testing , Creatinine Clr Calc Pharmacy 16.08 [facility] Comment on above: Result Comment: PERF ORMED BY: [facility] [place] [address] PATHOLOGIST ASSEM[employer] BRANDEN WHATLEY M.D. Performed By: #### G SUSIELS #### Point of Care testing , GFR/1.73 sq M.predicted MDRD (S/P/Bld) [Vol rate/Area] 9.045 mL/min/{1.73_m2} [facility] Comment on above: Performed By: #### G SUSIELS #### Point of Care testing , Globulin (S) [Mass/Vol] 3.5 g/dL Normal [facility] Comment on above: Performed By: #### G LULS #### Point of Care testing , Glucose [Mass/Vol] 105 mg/dL High 70-100 [facility] Comment on above: Result Comment: [facility] [place] Glucose Reference Range is dependent on time and content of last meal. Glucose of more than 200 mg/dL in a nonstressed, ambulatory subject supports the diagnosis of Diabetes Mellitus. ADA recommended reference range Performed By: #### G SUSIELS #### Point of Care testing , Potassium [Moles/Vol] 4.9 mmol/L Normal 3.5-5.1 [facility] Comment on above: Performed By: #### G SUSIELS #### Point of Care testing , Protein [Mass/Vol] 6.4 g/dL Normal 6.4-8.9 [facility] Comment on above: Performed By: #### G SUSIELS #### Point of Care testing , Sodium [Moles/Vol] 137 mmol/L Normal 136-145 [facility] Comment on above: Performed By: #### G SUSIELS #### Point of Care testing , Urea nitrogen [Mass/Vol] 84 mg/dL High 7-25 [facility] Comment on above: Performed By: #### G SUSIELS #### Point of Care testing , Dipstick and Microscopicon 0 08-30-2022 Appearance (U) Turbid Critically abnormal Clear [facility] Comment on above: Order Comment: Name Collection Type:: Wooten Catheter Performed By: #### F E and TIBC, [id number], ODALIS #### [facility] [address] Bacteria,Urine 2+ High None Seen [facility] Comment on above: Order Comment: Name Collection Type:: Wooten Catheter Performed By: #### F E and TIBC, [id number], ODALIS #### [facility] [address] [place] [address] [place] Bilirubin,Urine Negative Normal Negative [facility] Comment on above: Order Comment: Name Collection Type:: Wooten Catheter Performed By: #### F E and TIBC, [id number], ODALIS #### [address] Color (U) Yellow Normal Yellow [facility] Comment on above: Order Comment: Name Collection Type:: Wooten Catheter Performed By: #### F E and TIBC, [id number], ODALIS #### [address] Glucose Ql (U) 100 mg/dL High Normal [facility] Comment on above: Order Comment: Name Collection Type:: Wooten Catheter Performed By: #### F E and TIBC, [id number], ODALIS #### [address] Hyaline Casts,Urine None Seen Normal 0-1 [facility] Comment on above: Order Comment: Name Collection Type:: Wooten Catheter Performed By: #### F E and TIBC, [id number], ODALIS #### [address] Ketones Ql (U) Negative Normal Negative [facility] Comment on above: Order Comment: Name Collection Type:: Wooten Catheter Performed By: #### F E and TIBC, [id number], ODALIS #### [address] Leukocyte esterase Test strip Ql (U) 4+ High Negative [facility] Comment on above: Order Comment: Name Collection Type:: Wooten Catheter Performed By: #### F E and TIBC, [id number], ODALIS #### [place] [address] [place] Nitrite,Urine Positive High Negative [facility] Comment on above: Order Comment: Name Collection Type:: Wooten Catheter Performed By: #### F E and TIBC, [id number], ODALIS #### [address] Occult Blood,Urine 3+ High Negative [facility] Comment on above: Order Comment: Name Collection Type:: Wooten Catheter Result Comment: PERF ORMED BY: [place] [address] PATHOLOGIST ASSEM[employer] BRANDEN WHATLEY M.D. Performed By: #### F E and TIBC, [id number], ODALIS #### [address] Other Casts,Urine None Seen Normal None Seen [facility] Comment on above: Order Comment: Name Collection Type:: Wooten Catheter Performed By: #### F E and TIBC, [id number], ODALIS #### [address] pH (U) 6.0 [pH] Normal 5.0-9.0 [facility] Comment on above: Order Comment: Name Collection Type:: Wooten Catheter Performed By: #### F E and TIBC, [id number], ODALIS #### [address] Protein (U) [Mass/Vol] 100 mg/dL High Negative [facility] Comment on above: Order Comment: Name Collection Type:: Wooten Catheter Performed By: #### F E and TIBC, [id number], ODALIS #### [place] [address] [place] RBC,Urine 3-4 Normal 0-4 [facility] Comment on above: Order Comment: Name Collection Type:: Wooten Catheter Performed By: #### F E and TIBC, [id number], ODALIS #### [place] [address] [place] Specificy [place],Urine 1.011 Normal 1.001-1.030 [facility] Comment on above: Order Comment: Name Collection Type:: Wooten Catheter Performed By: #### F E and TIBC, [id number], ODALIS #### [address] [place] [address] [place] Squamous Epithelial Cell,Urine 1-2 Normal 0-2 [facility] Comment on above: Order Comment: Name Collection Type:: Wooten Catheter Performed By: #### F E and TIBC, [id number], ODALIS #### [facility] [address] Urobilinogen,Urine Normal Normal Normal [facility] Comment on above: Order Comment: Name Collection Type:: Wooten Catheter Performed By: #### F E and TIBC, [id number], ODALIS #### [address] WBC,Urine Innumerable High 0-4 [facility] Comment on above: Order Comment: Name Collection Type:: Wooten Catheter Performed By: #### F E and TIBC, [id number], ODALIS #### [address] Yeast,Urine 2+ Critically abnormal None Seen [facility] Comment on above: Order Comment: Name Collection Type:: Wooten Catheter Result Comment: PERF ORMED BY: [place] [address] PATHOLOGIST ASSEM[employer] BRANDEN WHATLEY M.D. Performed By: #### F E and TIBC, [id number], ODALIS #### [address] Glucose Poct Glucometerson 0 08-30-2022 Glucose [Mass/Vol] 148 mg/dL Normal [facility] Comment on above: Result Comment: [facility] [place] Glucose Reference Range is dependent on time and content of last meal. Glucose of more than 200 mg/dL in a nonstressed, ambulatory subject supports the diagnosis of Diabetes Mellitus. PERFORMED BY: [address] [place] [address] PATHOLOGIST ASSEMBL[employer] BRANDEN WHATLEY M.D. Performed By: #### G LULS #### Point of Care testing , Glucose [Mass/Vol] 100 mg/dL Normal [facility] Comment on above: Result Comment: [facility] [place] Glucose Reference Range is dependent on time and content of last meal. Glucose of more than 200 mg/dL in a nonstressed, ambulatory subject supports the diagnosis of Diabetes Mellitus. PERFORMED BY: [place] [address] PATHOLOGIST ASSEM[employer] BRANDEN WHATLEY M.D. Performed By: #### F E and TIBC [id number], ODALIS #### [facility] [address] [place] [address] Urine Cultureon 08-30-2022 Bacteria identified Cx Nom (U) ORGANISM: Pseudomonas aeruginosa (O:PSEAER) Filley Count 30,000 Aerobic RONI Charge (NMIC56) ---- SUSCEPTIBILITY --- ORGANISM: O:PSEAER ANTIBIOTIC INTERPRETATION RONI Amikacin S <16 Aztreonam IB <4 Cefepime S <2 Ceftazidime IB <1 Ceftazidime/Avibactam S <4 Ceftolozane/Tazobacta m S <2 Ciprofloxacin R >2 Gentamicin S 4 Levofloxacin R >4 Meropenem S <1 Piperacillin/Tazobact am IB <8 Tobramycin S 4 S = SUSCEPTIBLE I = INTERMEDIATE R = RESISTANT BLANK = DATA NOT AVAILABLE, OR DRUG NOT ADVISABLE OR TESTED R* = RESISTANCE DUE TO EXTENDED SPECTRUM BETA-LACTAMASES ESBL = EXTENDED SPECTRUM BETA-LACTAMASE TFG = THYMIDINE-DEPENDENT STRAIN EVON = BETA-LACTAMASE POSITIVE IB = INDUCIBLE BETA-LACTAMASE. APPEARS IN PLACE OF 'S' WITH SPECIES KNOWN TO POSSESS INDUCIBLE BETA-LACTAMASES. POTENTIALLY THEY MAY BECOME RESISTANT TO ALL B-LACTAM DRUGS. PERFORMED BY: [place] [address] PATHOLOGIST ASSEMBLER [employer] BRANDEN WHATLEY M.D. Normal [facility] Comment on above: Performed By: #### F E and TIBC, [id number], ODALIS #### [place] [id number] [facility] PRBC LEUKOREDUCEDon 07-19-19 23 PRBC LEUKOREDUCED Cross Match Result Compatible Unit Blood Type O Neg Unit Number [id number] Status Information Transfused Product ID Red Blood Cells Product Code [id number] [facility] Comment on above: Performed By: #### P OCGLUC #### [facility] [address] [place] [address] Dr. Dk Mahoney PRBC LEUKOREDUCED Cross Match Result Compatible Unit Blood Type O Neg Unit Number [id number] Status Information Transfused Product ID Red Blood Cells Product Code [id number] [facility] Comment on above: Performed By: #### P OCGLUC #### [facility] [address] [place] [address] Dr. Dk Mahoney CULTURE URINEon 07-09-2022 CULTURE URINE Isolate 1 Proteus mirabilis >100,000 cfu/mL of Isolate 2 Pseudomonas aeruginosa >100,000 cfu/mL of ORGANISM 1 Proteus mirabilis ANTIBIOTIC M.I.C RX STATUS Ampicillin >=32 R F Ampicillin/Sulbactam >=32 R F Piperacillin/Tazobact am <=4 S F Cefazolin >=64 R F Ceftazidime 4 R F Ceftriaxone 2 R F Ertapenem <=0.5 S F Imipenem 2 S F Amikacin <=2 S F Gentamicin <=1 S F Tobramycin <=1 S F Ciprofloxacin >=4 R F Levofloxacin >=8 R F Nitrofurantoin 64 R F Trimethoprim/Sulfamet hoxazole <=20 S F ORGANISM 2 Pseudomonas aeruginosa ANTIBIOTIC M.I.C RX STATUS Piperacillin/Tazobact am 16 S F Ceftazidime 8 S F Imipenem 2 S F Amikacin <=2 S F Gentamicin <=1 S F Tobramycin <=1 S F Ciprofloxacin >=4 R F Levofloxacin >=8 R F Normal [facility] Comment on above: Performed By: #### P OCGLUC #### [facility] [address] [place] [address] Dr. Dk Mahoney PROTEIN ELECTROPHERESISon Albumin [Mass/Vol] 2.7 g/dL Critically low 2.9-4.4 [facility] Comment on above: Performed By: #### M G, CMP, PHOS #### [facility] [address] [place] [address] [address] Dk Mahoney Albumin/Globulin [Mass ratio] 0.9 {ratio} Normal 0.7-1.7 [facility] Comment on above: Performed By: #### M G, CMP, PHOS #### [facility] [address] [place] [address] [address] Dk Mahoney Zzzgj-8-Lvihoeah 0.2 g/dL Normal 0.0-0.4 [facility] Comment on above: Performed By: #### M G, CMP, PHOS #### [facility] [address] [place] [address] [address] Dk Mahoney Jmarh-7-Xcwjvhmj 0.8 g/dL Normal 0.4-1.0 [facility] Comment on above: Performed By: #### M G, CMP, PHOS #### [facility] [address] [place] [address] Dr. Dk Mahoney Beta Globulin 1.0 g/dL Normal 0.7-1.3 [facility] Comment on above: Performed By: #### M G, CMP, PHOS #### [facility] [address] [place] [address] [address] Dk Mahoney Gamma Globulin 1.1 g/dL Normal 0.4-1.8 [facility] Comment on above: Performed By: #### M G, CMP, PHOS #### [facility] [address] [place] [address] [address] Dk Mahoney Globulin (S) [Mass/Vol] 3.1 g/dL Normal 2.2-3.9 [facility] Comment on above: Performed By: #### M G, CMP, PHOS #### [facility] [address] [place] [address] [address] Dk Mahoney M-Primitivo Comment: Normal Not Observed [facility] Comment on above: Result Comment: SPE shows an asymmetrical gamma. Performed By: #### M G, CMP, PHOS #### [facility] [address] [place] [address] [address] Dk Mahoney PDF . Normal [facility] Comment on above: Performed By: #### M G, CMP, PHOS #### [facility] [address] [place] [address] [address] Dk Mahoney Please note: Comment Normal [facility] Comment on above: Result Comment: Prot ein electrophoresis scan will follow via computer, mail, or raw silk grader delivery. Performed By: #### M G, CMP, PHOS #### [facility] [address] [place] [address] [address] Dk Mahoney Protein [Mass/Vol] 5.8 g/dL Critically low 6.0-8.5 [facility] Comment on above: Performed By: #### M G, CMP, PHOS #### [facility] [address] [place] [address] Dr. Dk Mahoney PROTEIN ELECTROPHERESIS URIN E RANDOMon 07-09-2022 Albumin, U 23.2 % Normal [facility] Comment on above: Performed By: #### M G, CMP, PHOS #### [facility] [address] [place] [address] Dr. Dk Mahoney Alpha-1 Globulin U 3.6 % Normal [facility] Comment on above: Performed By: #### M G, CMP, PHOS #### [facility] [address] [place] [address] Dr. Dk Mahoney Alpha-2 Glubulin U 19.7 % Normal [facility] Comment on above: Performed By: #### M G, CMP, PHOS #### [facility] [address] [place] [address] [address] Dk Mahoney Beta Globulin, U 31.4 % Normal [facility] Comment on above: Performed By: #### M G, CMP, PHOS #### [facility] [address] [place] [address] Dr. Dk Mahoney Gamma Globulin U 22.1 % Normal [facility] Comment on above: Performed By: #### M G, CMP, PHOS #### [facility] [address] [place] [address] [address] Dk Mahoney M-Primitivo, % Comment: Normal Not Observed [facility] Comment on above: Result Comment: UPE shows an asymmetrical beta. Performed By: #### M G, CMP, PHOS #### [facility] [address] [place] [address] Dr. Dk Mahoney PDF . Normal [facility] Comment on above: Performed By: #### M G, CMP, PHOS #### [facility] [address] [place] [address] Dr. Dk Mahoney Please note: Comment Normal [facility] Comment on above: Result Comment: Prot ein electrophoresis scan will follow via computer, mail, or raw silk grader delivery. Performed By: #### M G, CMP, PHOS #### [facility] [address] [place] [address] Dr. Dk Mahoney Protein (U) [Mass/Vol] 34.7 mg/dL Normal Not Estab. [facility] Comment on above: Performed By: #### M G, CMP, PHOS #### [facility] [address] [place] [address] Dr. Dk Mahoney CBC AUTO DIFFon 07-07-2022 BASO # 0.1 103/ul Normal 0.0-0.1 [facility] Comment on above: Performed By: #### M G, CMP, PHOS #### [facility] [address] [place] [address] Dr. Dk Mahoney Basophils/100 WBC (Bld) 0.9 % Normal 0.2-2.0 [facility] Comment on above: Performed By: #### M G, CMP, PHOS #### [facility] [address] [place] [address] Dr. Dk Mahoney EO # 0.2 103/ul Normal 0.0-0.7 [facility] Comment on above: Performed By: #### M G, CMP, PHOS #### [facility] [address] [place] [address] Dr. Dk Mahoney Eosinophils/100 WBC (Bld) 2.9 % Normal 0.9-7.0 [facility] Comment on above: Performed By: #### M G, CMP, PHOS #### [facility] [address] [place] [address] Dr. Dk Mahoney Erythrocyte distribution width (RBC) [Ratio] 15.0 % Normal 11.0-15.0 [facility] Comment on above: Performed By: #### M G, CMP, PHOS #### [facility] [address] [place] [address] Dr. Dk Mahoney Hematocrit (Bld) [Volume fraction] 24.4 % Critically low 42.0-54.0 [facility] Comment on above: Performed By: #### M G, CMP, PHOS #### [facility] [address] [place] [address] Dr. Dk Mahoney Hemoglobin (Bld) [Mass/Vol] 7.8 g/dL Critically low 14.0-18.0 [facility] Comment on above: Performed By: #### M G, CMP, PHOS #### [facility] [address] [place] [address] Dr. Dk Mahnoey IG # 0.07 10e3/ul Critically high 0.00-0.03 [facility] Comment on above: Performed By: #### M G, CMP, PHOS #### [facility] [address] [place] [address] Dr. Dk Mahoney IG % 1.1 % Critically high 0.0-0.5 [facility] Comment on above: Performed By: #### M G, CMP, PHOS #### [facility] [address] [place] [address] Dr. Dk Mahoney LYMPH # 1.0 103/ul Critically low 1.2-3.8 [facility] Comment on above: Performed By: #### M G, CMP, PHOS #### [facility] [address] [place] [address] Dr. Dk Mahoney Lymphocytes/100 WBC (Bld) 15.4 % Critically low 20.5-60.0 [facility] Comment on above: Performed By: #### M G, CMP, PHOS #### [facility] [address] [place] [address] Dr. Dk Mahoney MANUAL DIFF REQ NO Normal [facility] Comment on above: Performed By: #### M G, CMP, PHOS #### [facility] [address] [place] [address] Dr. Dk Mahoney MCH (RBC) [Entitic mass] 29.3 pg Normal 25.9-34.0 [facility] Comment on above: Performed By: #### M G, CMP, PHOS #### [facility] [address] [place] [address] Dr. Dk Mahoney MCHC (RBC) [Mass/Vol] 32.0 g/dL Normal 29.9-35.2 [facility] Comment on above: Performed By: #### M G, CMP, PHOS #### [facility] [address] [place] [address] Dr. Dk Mahoney MCV (RBC) [Entitic vol] 91.7 fL Normal 80.0-94.0 [facility] Comment on above: Performed By: #### M G, CMP, PHOS #### [facility] [address] [place] [address] Dr. Dk Mahoney MONO # 0.6 103/ul Normal 0.3-0.8 [facility] Comment on above: Performed By: #### M G, CMP, PHOS #### [facility] [address] [place] [address] Dr. Dk Mahoney Monocytes/100 WBC (Bld) 9.2 % Normal 1.7-12.0 [facility] Comment on above: Performed By: #### M G, CMP, PHOS #### [facility] [address] [place] [address] Dr. Dk Mahoney NEUT # 4.6 103/ul Normal 1.4-6.5 [facility] Comment on above: Performed By: #### M G, CMP, PHOS #### [facility] [address] [place] [address] Dr. Dk Mahoney Neutrophils/100 WBC (Bld) 70.5 % Normal 43.0-75.0 [facility] Comment on above: Performed By: #### M G, CMP, PHOS #### [facility] [address] [place] [address] [address] Dk Mahoney Platelet mean volume (Bld) [Entitic vol] 10.1 fL Normal 9.5-13.5 [facility] Comment on above: Performed By: #### M G, CMP, PHOS #### [facility] [address] [address] [address] Dk Mahoney PLT 172 103/ul Normal 150-450 [facility] Comment on above: Performed By: #### M G, CMP, PHOS #### [facility] [address] [place] [address] Dr. Dk Mahoney RBC 2.66 106/ul Critically low 4.70-6.10 [facility] Comment on above: Performed By: #### M Young, CMP, PHOS #### [facility] [address] [place] [address] Dr. Dk Mahoney WBC 6.5 103/ul Normal 4.0-11.0 [facility] Comment on above: Performed By: #### M Young, CMP, PHOS #### [facility] [address] [place] [address] Dr. Dk Mahoney MAGNESIUMon 07-07-2022 Magnesium [Mass/Vol] 1.4 mg/dL Critically low 1.8-2.4 [facility] Comment on above: Performed By: #### M Young, CMP, PHOS #### [facility] [address] [place] [address] Dr. Dk Mahoney PHOSPHORUSon 07-07-2022 Phosphate [Mass/Vol] 5.9 mg/dL Critically high 2.6-4.7 [facility] Comment on above: Performed By: #### M Young, CMP, PHOS #### [facility] [address] [place] [address] Dr. Dk Mahoney POINT OF CARE GLUCOSEon 06-13 Glucose [Mass/Vol] 121 mg/dL Critically high 74-106 [facility] Comment on above: Performed By: #### M G, CMP, PHOS #### [facility] [address] [address] [address] Dk Mahoney PROF 14(COMP METB)on 023 Albumin [Mass/Vol] 2.4 g/dL Critically low 3.4-5.0 [facility] Comment on above: Performed By: #### M G, CMP, PHOS #### [facility] [address] [address] [address] Dk Mahoney Albumin/Globulin [Mass ratio] 0.6 {ratio} Normal [facility] Comment on above: Performed By: #### M G, CMP, PHOS #### [facility] [address] [address] [address] Dk Mahoney ALP [Catalytic activity/Vol] 128 U/L Critically high 46-116 [facility] Comment on above: Performed By: #### M G, CMP, PHOS #### [facility] [address] [address] [address] Dk Mahoney ALT [Catalytic activity/Vol] 49 U/L Normal 16-63 [facility] Comment on above: Performed By: #### M G, CMP, PHOS #### [facility] [address] [address] [address] Dk Mahoney Anion gap [Moles/Vol] 16.3 mmol/L Normal [facility] Comment on above: Performed By: #### M G, CMP, PHOS #### [facility] [address] [address] [address] Dk Mahoney AST [Catalytic activity/Vol] 17 U/L Normal 15-37 [facility] Comment on above: Performed By: #### M G, CMP, PHOS #### [facility] [address] [address] [address] Dk Mahoney Bilirubin [Mass/Vol] 0.3 mg/dL Normal 0.2-1.0 [facility] Comment on above: Performed By: #### M G, CMP, PHOS #### [facility] [address] [address] [address] Dk Mahoney Calcium [Mass/Vol] 9.2 mg/dL Normal 8.5-10.1 [facility] Comment on above: Performed By: #### M Young CMP, PHOS #### [facility] [address] [place] [address] Dr. Dk Mahoney Chloride [Moles/Vol] 105 mmol/L Normal 98-107 [facility] Comment on above: Performed By: #### M Young CMP, PHOS #### [facility] [address] [place] [address] Dr. Dk Mahoney CO2 [Moles/Vol] 20.3 mmol/L Critically low 21.0-32.0 [facility] Comment on above: Performed By: #### M Young CMP, PHOS #### [facility] [address] [place] [address] Dr. Dk Mahoney Creatinine [Mass/Vol] 5.59 mg/dL Critically high 0.70-1.30 [facility] Comment on above: Performed By: #### Rosmery Vidal CMP, PHOS #### [facility] [address] [place] [address] Dr. Dk Mahoney EGFR-AF INDONESIAN 12 mL/min/1.73m2 Critically low >=60 [facility] Comment on above: Performed By: #### Rosmery Vidal CMP, PHOS #### [facility] [address] [place] [address] Dr. Dk Mahoney EGFR-NON AF INDONESIAN 10 mL/min/1.73m2 Critically low >=60 [facility] Comment on above: Performed By: #### Rosmery Vidal CMP, PHOS #### [facility] [address] [place] [address] Dr. Dk Mahoney Globulin (S) [Mass/Vol] 3.7 g/dL Normal [facility] Comment on above: Performed By: #### M Young CMP, PHOS #### [facility] [address] [place] [address] Dr. Dk Mahoney Glucose [Mass/Vol] 191 mg/dL Critically high 74-106 [facility] Comment on above: Performed By: #### M Young CMP, PHOS #### [facility] [address] [place] [address] Dr. Dk Mahoney Potassium [Moles/Vol] 4.5 mmol/L Normal 3.5-5.1 [facility] Comment on above: Performed By: #### M G, CMP, PHOS #### [facility] [address] [place] [address] Dr. Dk Mahoney Protein [Mass/Vol] 6.1 g/dL Critically low 6.4-8.2 [facility] Comment on above: Performed By: #### M G, CMP, PHOS #### [facility] [address] [place] [address] Dr. Dk Mahoney Sodium [Moles/Vol] 137 mmol/L Normal 136-145 [facility] Comment on above: Performed By: #### M G, CMP, PHOS #### [facility] [address] [place] [address] Dr. Dk Mahoney Urea nitrogen [Mass/Vol] 83.0 mg/dL Critically high 7.0-18.0 [facility] Comment on above: Performed By: #### M G, CMP, PHOS #### [facility] [address] [place] [address] Dr. Dk Mahoney Urea nitrogen/Creatinine [Mass ratio] 14.8 mg/mg Normal [facility] Comment on above: Performed By: #### M G, CMP, PHOS #### [facility] [address] [place] [address] Dr. Dk Mahoney CBC AUTO DIFFon 07-06-2022 BASO # 0.1 103/ul Normal 0.0-0.1 [facility] Comment on above: Performed By: #### M G, CMP, PHOS #### [facility] [address] [place] [address] Dr. Dk Mahoney Basophils/100 WBC (Bld) 0.9 % Normal 0.2-2.0 [facility] Comment on above: Performed By: #### M G, CMP, PHOS #### [facility] [address] [place] [address] Dr. Dk Mahoney EO # 0.2 103/ul Normal 0.0-0.7 [facility] Comment on above: Performed By: #### M SHIREEN Vidal, PHOS #### [facility] [address] [place] [address] Dr. Dk Mahoney Eosinophils/100 WBC (Bld) 2.9 % Normal 0.9-7.0 [facility] Comment on above: Performed By: #### M Young CMP, PHOS #### [facility] [address] [place] [address] Dr. Dk Mahoney Erythrocyte distribution width (RBC) [Ratio] 15.0 % Normal 11.0-15.0 [facility] Comment on above: Performed By: #### M Young CMP, PHOS #### [facility] [address] [place] [address] Dr. Dk Mahoney Hematocrit (Bld) [Volume fraction] 24.2 % Critically low 42.0-54.0 [facility] Comment on above: Performed By: #### M SHIREEN Vidal, PHOS #### [facility] [address] [place] [address] Dr. Dk Mahoney Hemoglobin (Bld) [Mass/Vol] 8.0 g/dL Critically low 14.0-18.0 [facility] Comment on above: Performed By: #### M Young CMP, PHOS #### [facility] [address] [place] [address] Dr. Dk Mahoney IG # 0.06 10e3/ul Critically high 0.00-0.03 [facility] Comment on above: Performed By: #### M G, CMP, PHOS #### [facility] [address] [place] [address] Dr. Dk Mahoney IG % 0.9 % Critically high 0.0-0.5 [facility] Comment on above: Performed By: #### M G, CMP, PHOS #### [facility] [address] [place] [address] Dr. Dk Mahoney LYMPH # 1.0 103/ul Critically low 1.2-3.8 [facility] Comment on above: Performed By: #### M G, CMP, PHOS #### [facility] [address] [place] [address] Dr. Dk Mahoney Lymphocytes/100 WBC (Bld) 14.6 % Critically low 20.5-60.0 [facility] Comment on above: Performed By: #### M G, CMP, PHOS #### [facility] [address] [place] [address] Dr. Dk Mahoney MANUAL DIFF REQ NO Normal [facility] Comment on above: Performed By: #### M G, CMP, PHOS #### [facility] [address] [place] [address] Dr. Dk Mahoney MCH (RBC) [Entitic mass] 30.4 pg Normal 25.9-34.0 [facility] Comment on above: Performed By: #### M G, CMP, PHOS #### [facility] [address] [place] [address] Dr. Dk Mahoney MCHC (RBC) [Mass/Vol] 33.1 g/dL Normal 29.9-35.2 [facility] Comment on above: Performed By: #### M G, CMP, PHOS #### [facility] [address] [place] [address] Dr. Dk Mahoney MCV (RBC) [Entitic vol] 92.0 fL Normal 80.0-94.0 [facility] Comment on above: Performed By: #### M G, CMP, PHOS #### [facility] [address] [place] [address] Dr. Dk Mahoney MONO # 0.7 103/ul Normal 0.3-0.8 [facility] Comment on above: Performed By: #### M G, CMP, PHOS #### [facility] [address] [place] [address] Dr. Dk Mahoney Monocytes/100 WBC (Bld) 11.1 % Normal 1.7-12.0 [facility] Comment on above: Performed By: #### M G, CMP, PHOS #### [facility] [address] [place] [address] Dr. Dk Mahoney NEUT # 4.5 103/ul Normal 1.4-6.5 [facility] Comment on above: Performed By: #### M Young CMP, PHOS #### [facility] [address] [address] [address] Dk Mahoney Neutrophils/100 WBC (Bld) 69.6 % Normal 43.0-75.0 [facility] Comment on above: Performed By: #### M Young CMP, PHOS #### [facility] [address] [place] [address] Dr. Dk Mahoney Platelet mean volume (Bld) [Entitic vol] 9.4 fL Critically low 9.5-13.5 [facility] Comment on above: Performed By: #### M Young CMP, PHOS #### [facility] [address] [place] [address] Dr. Dk Mahoney PLT 159 103/ul Normal 150-450 [facility] Comment on above: Performed By: #### Rosmery Vidal CMP, PHOS #### [facility] [address] [place] [address] Dr. Dk Mahoney RBC 2.63 106/ul Critically low 4.70-6.10 [facility] Comment on above: Performed By: #### M Young CMP, PHOS #### [facility] [address] [place] [address] Dr. Dk Mahoney WBC 6.5 103/ul Normal 4.0-11.0 [facility] Comment on above: Performed By: #### M Young CMP, PHOS #### [facility] [address] [place] [address] Dr. Dk Mahoney BASO # 0.0 103/ul Normal 0.0-0.1 [facility] Comment on above: Performed By: #### C BC #### [facility] [address] [place] [address] Dr. Dk Mahoney Basophils/100 WBC (Bld) 0.6 % Normal 0.2-2.0 [facility] Comment on above: Performed By: #### C BC #### [facility] [address] [address] [address] Dk Mahoney EO # 0.2 103/ul Normal 0.0-0.7 [facility] Comment on above: Performed By: #### C BC #### [facility] [address] [address] [address] Dk Mahoney Eosinophils/100 WBC (Bld) 3.2 % Normal 0.9-7.0 [facility] Comment on above: Performed By: #### C BC #### [facility] [address] [place] [address] Dr. Dk Mahoney Erythrocyte distribution width (RBC) [Ratio] 15.2 % Critically high 11.0-15.0 [facility] Comment on above: Performed By: #### C BC #### [facility] [address] [place] [address] Dr. Dk Mahoney Hematocrit (Bld) [Volume fraction] 21.4 % Critically low 42.0-54.0 [facility] Comment on above: Performed By: #### C BC #### [facility] [address] [place] [address] Dr. Dk Mahoney Hemoglobin (Bld) [Mass/Vol] 6.9 g/dL Critically low 14.0-18.0 [facility] Comment on above: Performed By: #### C BC #### [facility] [address] [place] [address] Dr. Dk Mahoney IG # 0.05 10e3/ul Critically high 0.00-0.03 [facility] Comment on above: Performed By: #### C BC #### [facility] [address] [place] [address] Dr. Dk Mahoney IG % 0.8 % Critically high 0.0-0.5 [facility] Comment on above: Performed By: #### C BC #### [facility] [address] [place] [address] Dr. Dk Mahoney LYMPH # 0.9 103/ul Critically low 1.2-3.8 [facility] Comment on above: Performed By: #### C BC #### [facility] [address] [place] [address] Dr. Dk Mahoney Lymphocytes/100 WBC (Bld) 13.8 % Critically low 20.5-60.0 [facility] Comment on above: Performed By: #### C BC #### [facility] [address] [place] [address] Dr. Dk Mahoney MANUAL DIFF REQ NO Normal [facility] Comment on above: Performed By: #### C BC #### [facility] [address] [place] [address] Dr. Dk Mahoney MCH (RBC) [Entitic mass] 29.9 pg Normal 25.9-34.0 [facility] Comment on above: Performed By: #### C BC #### [facility] [address] [place] [address] Dr. Dk Mahoney MCHC (RBC) [Mass/Vol] 32.2 g/dL Normal 29.9-35.2 [facility] Comment on above: Performed By: #### C BC #### [facility] [address] [place] [address] Dr. Dk Mahoney MCV (RBC) [Entitic vol] 92.6 fL Normal 80.0-94.0 [facility] Comment on above: Performed By: #### C BC #### [facility] [address] [place] [address] Dr. Dk Mahoney MONO # 0.8 103/ul Normal 0.3-0.8 [facility] Comment on above: Performed By: #### C BC #### [facility] [address] [place] [address] Dr. Dk Mahoney Monocytes/100 WBC (Bld) 11.4 % Normal 1.7-12.0 [facility] Comment on above: Performed By: #### C BC #### [facility] [address] [place] [address] Dr. Dk Mahoney NEUT # 4.6 103/ul Normal 1.4-6.5 [facility] Comment on above: Performed By: #### C BC #### [facility] [address] [place] [address] Dr. Dk Mahoney Neutrophils/100 WBC (Bld) 70.2 % Normal 43.0-75.0 [facility] Comment on above: Performed By: #### C BC #### [facility] [address] [place] [address] Dr. Dk Mahoney Platelet mean volume (Bld) [Entitic vol] 9.6 fL Normal 9.5-13.5 [facility] Comment on above: Performed By: #### C BC #### [facility] [address] [place] [address] Dr. Dk Mahoney PLT 163 103/ul Normal 150-450 [facility] Comment on above: Performed By: #### C BC #### [facility] [address] [place] [address] Dr. Dk Mahoney RBC 2.31 106/ul Critically low 4.70-6.10 [facility] Comment on above: Performed By: #### C BC #### [facility] [address] [place] [address] Dr. Dk Mahoney WBC 6.6 103/ul Normal 4.0-11.0 [facility] Comment on above: Performed By: #### C BC #### [facility] [address] [place] [address] Dr. Dk Mahoney FERRITINon 07-06-2022 Ferritin [Mass/Vol] 538.0 ng/mL Critically high 26.0-388.0 [facility] Comment on above: Performed By: #### M G, CMP, PHOS #### [facility] [address] [place] [address] Dr. Dk Mahoney IRON AND TIBCon 07-06-2022 % SATURATION 29.7 % Normal [facility] Comment on above: Performed By: #### M G, CMP, PHOS #### [facility] [address] [place] [address] Dr. Dk Mahoney Iron [Mass/Vol] 51.0 ug/dL Critically low 65.0-175.0 [facility] Comment on above: Performed By: #### M G, CMP, PHOS #### [facility] [address] [address] [address] Dk Mahoney TIBC DIRECT 172.0 ug/dL Critically low 250.0-450.0 [facility] Comment on above: Performed By: #### Rosmery Vidal CMP, PHOS #### [facility] [address] [address] [address] Dk Mahoney LDHon 07-06-2022 LDH 126 U/L Normal 85-227 [facility] Comment on above: Performed By: #### Rosmery Vidal CMP, PHOS #### [facility] [address] [address] [address] Dk Mahoney MAGNESIUMon 07-06-2022 Magnesium [Mass/Vol] 1.5 mg/dL Critically low 1.8-2.4 [facility] Comment on above: Performed By: #### Rosmery Vidal CMP, PHOS #### [facility] [address] [place] [address] Dr. Dk Mahoney PHOSPHORUSon 07-06-2022 Phosphate [Mass/Vol] 7.8 mg/dL Critically high 2.6-4.7 [facility] Comment on above: Performed By: #### Rosmery Vidal CMP, PHOS #### [facility] [address] [place] [address] Dr. Dk Mahoney POINT OF CARE GLUCOSEon 06-13 Glucose [Mass/Vol] 149 mg/dL Critically high 74-106 [facility] Comment on above: Performed By: #### Rosmery Vidal CMP, PHOS #### [facility] [address] [address] [address] Dk Mahoney Glucose [Mass/Vol] 145 mg/dL Critically high 74-106 [facility] Comment on above: Performed By: #### Rosmery Vidal CMP, PHOS #### [facility] [address] [place] [address] Dr. Dk Mahoney Glucose [Mass/Vol] 112 mg/dL Critically high 74-106 [facility] Comment on above: Performed By: #### Rosmery Vidal CMP, PHOS #### [facility] [address] [place] [address] Dr. Dk Mahoney Glucose [Mass/Vol] 133 mg/dL Critically high 74-106 [facility] Comment on above: Performed By: #### M G, CMP, PHOS #### [facility] [address] [address] [address] Dk Mahoney Glucose [Mass/Vol] 173 mg/dL Critically high 74-106 [facility] Comment on above: Performed By: #### P OCGLUC #### [facility] [address] [address] [address] Dk Mahoney PROF 14(COMP METB)on 023 Albumin [Mass/Vol] 2.4 g/dL Critically low 3.4-5.0 [facility] Comment on above: Performed By: #### M Young, CMP, PHOS #### [facility] [address] [place] [address] Dr. Dk Mahoney Albumin/Globulin [Mass ratio] 0.6 {ratio} Normal [facility] Comment on above: Performed By: #### M G, CMP, PHOS #### [facility] [address] [address] [address] Dk Mahoney ALP [Catalytic activity/Vol] 133 U/L Critically high 46-116 [facility] Comment on above: Performed By: #### M G, CMP, PHOS #### [facility] [address] [place] [address] Dr. Dk Mahoney ALT [Catalytic activity/Vol] 58 U/L Normal 16-63 [facility] Comment on above: Performed By: #### M G, CMP, PHOS #### [facility] [address] [address] [address] Dk Mahoney Anion gap [Moles/Vol] 16.8 mmol/L Normal [facility] Comment on above: Performed By: #### M G, CMP, PHOS #### [facility] [address] [address] [address] Dk Mahoney AST [Catalytic activity/Vol] 20 U/L Normal 15-37 [facility] Comment on above: Performed By: #### M G, CMP, PHOS #### [facility] [address] [place] [address] Dr. Dk Mahoney Bilirubin [Mass/Vol] 0.2 mg/dL Normal 0.2-1.0 [facility] Comment on above: Performed By: #### M G, CMP, PHOS #### [facility] [address] [place] [address] Dr. Dk Mahoney Calcium [Mass/Vol] 9.0 mg/dL Normal 8.5-10.1 [facility] Comment on above: Performed By: #### M G, CMP, PHOS #### [facility] [address] [place] [address] Dr. Dk Mahoney Chloride [Moles/Vol] 107 mmol/L Normal 98-107 [facility] Comment on above: Performed By: #### M G, CMP, PHOS #### [facility] [address] [place] [address] Dr. Dk Mahoney CO2 [Moles/Vol] 18.2 mmol/L Critically low 21.0-32.0 [facility] Comment on above: Performed By: #### M G, CMP, PHOS #### [facility] [address] [place] [address] Dr. Dk Mahoney Creatinine [Mass/Vol] 5.80 mg/dL Critically high 0.70-1.30 [facility] Comment on above: Performed By: #### M G, CMP, PHOS #### [facility] [address] [place] [address] Dr. Dk Mahoney EGFR-AF INDONESIAN 12 mL/min/1.73m2 Critically low >=60 [facility] Comment on above: Performed By: #### M G, CMP, PHOS #### [facility] [address] [place] [address] Dr. Dk Mahoney EGFR-NON AF INDONESIAN 10 mL/min/1.73m2 Critically low >=60 [facility] Comment on above: Performed By: #### M G, CMP, PHOS #### [facility] [address] [place] [address] Dr. Dk Mahoney Globulin (S) [Mass/Vol] 3.9 g/dL Normal [facility] Comment on above: Performed By: #### M SHIREEN Vidal, PHOS #### [facility] [address] [address] [address] Dk Mahoney Glucose [Mass/Vol] 108 mg/dL Critically high 74-106 [facility] Comment on above: Performed By: #### M Young CMP, PHOS #### [facility] [address] [address] [address] Dk Mahoney Potassium [Moles/Vol] 5.0 mmol/L Normal 3.5-5.1 [facility] Comment on above: Performed By: #### M Young CMP, PHOS #### [facility] [address] [place] [address] Dr. Dk Mahoney Protein [Mass/Vol] 6.3 g/dL Critically low 6.4-8.2 [facility] Comment on above: Performed By: #### M Young CMP, PHOS #### [facility] [address] [address] [address] Dk Mahoney Sodium [Moles/Vol] 137 mmol/L Normal 136-145 [facility] Comment on above: Performed By: #### M Yuong CMP, PHOS #### [facility] [address] [address] [address] Dk Mahoney Urea nitrogen [Mass/Vol] 83.0 mg/dL Critically high 7.0-18.0 [facility] Comment on above: Performed By: #### M Young, CMP, PHOS #### [facility] [address] [address] [address] Dk Mahoney Urea nitrogen/Creatinine [Mass ratio] 14.3 mg/mg Normal [facility] Comment on above: Performed By: #### M Young CMP, PHOS #### [facility] [address] [address] [address] Dk Mahoney RETICULOCYTEon 07-06-2022 RETIC 4.20 % Critically high 0.60-3.10 [facility] Comment on above: Performed By: #### M G, CMP, PHOS #### [facility] [address] [place] [address] Dr. Dk Mahoney TYPE AND SCREENon 07-06-2022 TYPE AND SCREEN Negative Normal [facility] Comment on above: Performed By: #### P OCGLUC #### [facility] [address] [place] [address] Dr. Dk Mahoney URIC ACID SERUMon 07-06-2022 Urate [Mass/Vol] 6.1 mg/dL Normal 3.5-7.2 [facility] Comment on above: Performed By: #### M G, CMP, PHOS #### [facility] [address] [place] [address] Dr. Dk Mahoney VIT B12 AND FOLATEon 023 Cobalamin (Vitamin B12) [Mass/Vol] 686.0 pg/mL Normal 193.0-986.0 [facility] Comment on above: Performed By: #### P OCGLUC #### [facility] [address] [place] [address] Dr. Dk Mahoney FOLATE 15.50 ng/mL Normal 8.60-58.90 [facility] Comment on above: Performed By: #### P OCGLUC #### [facility] [address] [place] [address] Dr. Dk Mahoney CBC AUTO DIFFon 07-05-2022 BASO # 0.1 103/ul Normal 0.0-0.1 [facility] Comment on above: Performed By: #### M G, CMP, PHOS #### [facility] [address] [place] [address] Dr. Dk Mahoney Basophils/100 WBC (Bld) 0.7 % Normal 0.2-2.0 [facility] Comment on above: Performed By: #### M G, CMP, PHOS #### [facility] [address] [place] [address] Dr. Dk Mahoney EO # 0.2 103/ul Normal 0.0-0.7 [facility] Comment on above: Performed By: #### M G, CMP, PHOS #### [facility] [address] [place] [address] Dr. Dk Mahoney Eosinophils/100 WBC (Bld) 3.1 % Normal 0.9-7.0 [facility] Comment on above: Performed By: #### M G, CMP, PHOS #### [facility] [address] [place] [address] Dr. Dk Mahoney Erythrocyte distribution width (RBC) [Ratio] 15.4 % Critically high 11.0-15.0 [facility] Comment on above: Performed By: #### M G, CMP, PHOS #### [facility] [address] [place] [address] Dr. Dk Mahoney Hematocrit (Bld) [Volume fraction] 23.9 % Critically low 42.0-54.0 [facility] Comment on above: Performed By: #### M G, CMP, PHOS #### [facility] [address] [place] [address] Dr. Dk Mahoney Hemoglobin (Bld) [Mass/Vol] 7.7 g/dL Critically low 14.0-18.0 [facility] Comment on above: Performed By: #### M G, CMP, PHOS #### [facility] [address] [place] [address] Dr. Dk Mahoney IG # 0.05 10e3/ul Critically high 0.00-0.03 [facility] Comment on above: Performed By: #### M G, CMP, PHOS #### [facility] [address] [place] [address] Dr. Dk Mahoney IG % 0.7 % Critically high 0.0-0.5 [facility] Comment on above: Performed By: #### M G, CMP, PHOS #### [facility] [address] [place] [address] Dr. Dk Mahoney LYMPH # 1.0 103/ul Critically low 1.2-3.8 [facility] Comment on above: Performed By: #### M G, CMP, PHOS #### [facility] [address] [place] [address] Dr. Dk Mahoney Lymphocytes/100 WBC (Bld) 12.8 % Critically low 20.5-60.0 [facility] Comment on above: Performed By: #### M Young CMP, PHOS #### [facility] [address] [place] [address] Dr. Dk Mahoney MANUAL DIFF REQ NO Normal [facility] Comment on above: Performed By: #### M Young, CMP, PHOS #### [facility] [address] [place] [address] Dr. Dk Mahoney MCH (RBC) [Entitic mass] 30.0 pg Normal 25.9-34.0 [facility] Comment on above: Performed By: #### M Young CMP, PHOS #### [facility] [address] [place] [address] Dr. Dk Mahoney MCHC (RBC) [Mass/Vol] 32.2 g/dL Normal 29.9-35.2 [facility] Comment on above: Performed By: #### M Young CMP, PHOS #### [facility] [address] [place] [address] Dr. Dk Mahoney MCV (RBC) [Entitic vol] 93.0 fL Normal 80.0-94.0 [facility] Comment on above: Performed By: #### M Young CMP, PHOS #### [facility] [address] [place] [address] Dr. Dk Mahoney MONO # 0.8 103/ul Normal 0.3-0.8 [facility] Comment on above: Performed By: #### M G, CMP, PHOS #### [facility] [address] [place] [address] Dr. Dk Mahoney Monocytes/100 WBC (Bld) 10.2 % Normal 1.7-12.0 [facility] Comment on above: Performed By: #### M G, CMP, PHOS #### [facility] [address] [place] [address] Dr. Dk Mahoney NEUT # 5.6 103/ul Normal 1.4-6.5 [facility] Comment on above: Performed By: #### M Young, CMP, PHOS #### [facility] [address] [address] [address] Dk Mahoney Neutrophils/100 WBC (Bld) 72.5 % Normal 43.0-75.0 [facility] Comment on above: Performed By: #### M G, CMP, PHOS #### [facility] [address] [address] [address] Dk Mahoney Platelet mean volume (Bld) [Entitic vol] 9.8 fL Normal 9.5-13.5 [facility] Comment on above: Performed By: #### M G, CMP, PHOS #### [facility] [address] [address] [address] Dk Mahoney PLT 203 103/ul Normal 150-450 [facility] Comment on above: Performed By: #### M G, CMP, PHOS #### [facility] [address] [address] [address] Dk Mahoney RBC 2.57 106/ul Critically low 4.70-6.10 [facility] Comment on above: Performed By: #### M G, CMP, PHOS #### [facility] [address] [address] [address] Dk Mahoney WBC 7.7 103/ul Normal 4.0-11.0 [facility] Comment on above: Performed By: #### M G, CMP, PHOS #### [facility] [address] [place] [address] ABD/PELVIS WO CONon 07-05 CT ABD/PELVIS WO CON EXAMINATION:CT ABD/PELVIS WO CON INDICATION:GENERALIZE D ABDOMINAL PAIN COMPARISON:04/21/2022 TECHNIQUE:Multiple thin section transaxial slices were acquired through the abdomen and pelvis without intravenous contrast. Coronal and sagittal reconstructed images were reviewed. Oral contrastWas not administered. FINDINGS: LOWER CHEST: The lower chest is unremarkable. LIVER: The liver is unremarkable. GALLBLADDER AND BILIARY SYSTEM: No obvious ductal dilation. The gallbladder surgically absent. SPLEEN: The spleen is unremarkable. PANCREAS: The pancreas is unremarkable. ADRENAL GLANDS: There are benign bilateral adrenal lipomas measuring 2.4 cm on the left and 1.6 cm in the right. KIDNEYS AND URETERS: There is moderate left-sided hydronephrosis and proximal left hydroureter similar to the prior exam. There is a punctate peripheral calcification within the proximal left ureter.Based on the coronal and sagittal reconstructed images, this is not contributing to complete occlusion of the ureter. The exact etiology for the obstructive uropathy is indeterminate. There is no right hydronephrosis. There are multiple bilateral intrarenal calculi including a large staghorn calculus in the right kidneymeasuring4.2 x 1.6 cm. The right ureter is within normal limits. VASCULATURE: There is atherosclerotic plaque abdominal aorta without aneurysm. PERITONEUM/RETROPERIT ONEUM: Peritoneum/retroperit oneum is unremarkable. LYMPH NODES: There are enlarged left para-aortic lymph nodes in the upper retroperitoneum measuring 1.5 and 2.2 cm. GASTROINTESTINAL TRACT: The bowel is normal in caliber.There are no acute inflammatory changes in the bowel.The appendix is visualized and is not inflamed. BLADDER: There is a Wooten catheter in the bladder. REPRODUCTIVE SYSTEM: Reproductive system is unremarkable. BODY WALL: There is a tiny fat-containing umbilical hernia. BONES: There is grade 1 anterolisthesis of L5-S1. Bilateral L5 pars defects are present. IMPRESSION: 1. There is moderate left-sided hydronephrosis and proximal hydroureter similar to the previous exam. While there is a punctate peripheral calcification within the proximal left ureter, this is not contributing to complete obstruction of the ureter. The exact etiology for the obstructive uropathy is not entirely clear based on this examination. This could be further characterized with ureteroscopy. 2. Multiple bilateral intrarenal calculi including a large staghorn calculus in the right kidney. 3. Enlarged para-aortic lymph nodes in the upper retroperitoneum which are nonspecific. Electronically authenticated by: MARQUES AMAYA Date: 2022-07-05 18:21 Normal [facility] Cov[facility]-19 PCR ([facility])on 06-13 SARS-CoV-2 (COVID-19) RNA JASON+probe Ql (Unsp spec) Not detected Normal NOT DETECTED [facility] Comment on above: Result Comment: When diagnostic testing is negative, the possibility of a false negative should be considered in the context of a patient's recent exposures and the presence of clinical signs and symptoms consistent with SARS-CoV-2. This test is not yet approved or cleared by the [place] FDA. When there are no FDA-approved or cleared tests available, and other criteria are met, FDA can make tests available under an emergency access mechanism called an Emergency Use Authorization (EUA). The EUA for this test is supported by the [place] of Health and Human Service's declaration that circumstances exist to justify the emergency use of in vitro diagnostics for the detection and/or diagnosis of the virus that causes COVID-19. This EUA will remain in effect for the duration of the COVID-19 declaration justifying emergency of IVDs, unless it is terminated or revoked by the FDA (after which the test may no longer be used). Performed By: #### C BC #### [facility] [address] [place] [address] Dr. Dk Mahoney ER URINE PROFILEon 3 Bilirubin Ql (U) Negative Normal NEGATIVE [facility] Comment on above: Performed By: #### M Young CMP, PHOS #### [facility] [address] [place] [address] Dr. Dk Mahoney Clarity (U) CLEAR Normal CLEAR [facility] Comment on above: Performed By: #### M Young CMP, PHOS #### [facility] [address] [place] [address] Dr. Dk Mahoney Color (U) YELLOW Normal YELLOW [facility] Comment on above: Performed By: #### M G CMP, PHOS #### [facility] [address] [place] [address] Dr. Dk Mahoney ERUD A micrscopic examination will be performed if indicated. Normal [facility] Comment on above: Performed By: #### M G, CMP, PHOS #### [facility] [address] [place] [address] Dr. Dk Mahoney Glucose Ql (U) 100 mg/dl Abnormal NEGATIVE [facility] Comment on above: Performed By: #### M G, CMP, PHOS #### [facility] [address] [place] [address] Dr. Dk Mahoney Hemoglobin Ql (U) MODERATE Abnormal NEGATIVE [facility] Comment on above: Performed By: #### M G, CMP, PHOS #### [facility] [address] [address] [address] Dk Mahoney Ketones Ql (U) Negative Normal NEGATIVE [facility] Comment on above: Performed By: #### M G, CMP, PHOS #### [facility] [address] [place] [address] Dr. Dk Mahoney LEUKOCYTES LARGE Abnormal NEGATIVE [facility] Comment on above: Performed By: #### M G, CMP, PHOS #### [facility] [address] [address] [address] Dk Mahoney Nitrite Ql (U) Negative Normal NEGATIVE [facility] Comment on above: Performed By: #### M G, CMP, PHOS #### [facility] [address] [place] [address] Dr. Dk Mahoney pH (U) 7.0 [pH] Normal 5-9 [facility] Comment on above: Performed By: #### M G, CMP, PHOS #### [facility] [address] [place] [address] Dr. Dk Mahoney Protein (U) [Mass/Vol] 30 mg/dL Abnormal NEGATIVE/ TRACE [facility] Comment on above: Performed By: #### M G, CMP, PHOS #### [facility] [address] [place] [address] Dr. Dk Mahoney SPEC GRAVITY 1.010 Normal 1.005-<=1.02 5 [facility] Comment on above: Performed By: #### M G, CMP, PHOS #### [facility] [address] [place] [address] Dr. Dk Mahoney UR MICRO IND INDICATED Normal [facility] Comment on above: Performed By: #### M G, CMP, PHOS #### [facility] [address] [place] [address] Dr. Dk Mahoney Urobilinogen Qn (U) 0.2 {Ramiro'U}/dL Normal 0.2 - 1. 0 [facility] Comment on above: Performed By: #### M G, CMP, PHOS #### [facility] [address] [address] [address] Dk Mahoney PROF 14(COMP METB)on 023 Albumin [Mass/Vol] 2.7 g/dL Critically low 3.4-5.0 [facility] Comment on above: Performed By: #### C BC #### [facility] [address] [place] [address] Dr. Dk Mahoney Albumin/Globulin [Mass ratio] 0.6 {ratio} Normal [facility] Comment on above: Performed By: #### C BC #### [facility] [address] [place] [address] Dr. Dk Mahoney ALP [Catalytic activity/Vol] 148 U/L Critically high 46-116 [facility] Comment on above: Performed By: #### C BC #### [facility] [address] [place] [address] Dr. Dk Mahoney ALT [Catalytic activity/Vol] 70 U/L Critically high 16-63 [facility] Comment on above: Performed By: #### C BC #### [facility] [address] [place] [address] Dr. Dk Mahoney Anion gap [Moles/Vol] 16.7 mmol/L Normal [facility] Comment on above: Performed By: #### C BC #### [facility] [address] [place] [address] Dr. Dk Mahoney AST [Catalytic activity/Vol] 26 U/L Normal 15-37 [facility] Comment on above: Performed By: #### C BC #### [facility] [address] [place] [address] Dr. Dk Mahoney Bilirubin [Mass/Vol] 0.4 mg/dL Normal 0.2-1.0 [facility] Comment on above: Performed By: #### C BC #### [facility] [address] [place] [address] Dr. Dk Mahoney Calcium [Mass/Vol] 9.2 mg/dL Normal 8.5-10.1 [facility] Comment on above: Performed By: #### C BC #### [facility] [address] [address] [address] Dk Mahoney Chloride [Moles/Vol] 105 mmol/L Normal 98-107 [facility] Comment on above: Performed By: #### C BC #### [facility] [address] [address] [address] Dk Mahoney CO2 [Moles/Vol] 18.1 mmol/L Critically low 21.0-32.0 [facility] Comment on above: Performed By: #### C BC #### [facility] [address] [address] [address] Dk Mahoney Creatinine [Mass/Vol] 5.81 mg/dL Critically high 0.70-1.30 [facility] Comment on above: Performed By: #### C BC #### [facility] [address] [address] [address] Dk Mahoney EGFR-AF INDONESIAN 12 mL/min/1.73m2 Critically low >=60 [facility] Comment on above: Performed By: #### C BC #### [facility] [address] [address] [address] Dk Mahoney EGFR-NON AF INDONESIAN 10 mL/min/1.73m2 Critically low >=60 [facility] Comment on above: Performed By: #### C BC #### [facility] [address] [address] [address] Dk Mahoney Globulin (S) [Mass/Vol] 4.3 g/dL Normal [facility] Comment on above: Performed By: #### C BC #### [facility] [address] [address] [address] Dk Mahoney Glucose [Mass/Vol] 138 mg/dL Critically high 74-106 [facility] Comment on above: Performed By: #### C BC #### [facility] [address] [address] [address] Dk Mahoney Potassium [Moles/Vol] 4.8 mmol/L Normal 3.5-5.1 [facility] Comment on above: Performed By: #### C BC #### [facility] [address] [address] [address] Dk Mahoney Protein [Mass/Vol] 7.0 g/dL Normal 6.4-8.2 [facility] Comment on above: Performed By: #### C BC #### [facility] [address] [address] [address] Dk Mahoney Sodium [Moles/Vol] 135 mmol/L Critically low 136-145 [facility] Comment on above: Performed By: #### C BC #### [facility] [address] [address] [address] Dk Mahoney Urea nitrogen [Mass/Vol] 83.0 mg/dL Critically high 7.0-18.0 [facility] Comment on above: Performed By: #### C BC #### [facility] [address] [address] [address] Dk Mahoney Urea nitrogen/Creatinine [Mass ratio] 14.3 mg/mg Normal [facility] Comment on above: Performed By: #### C BC #### [facility] [address] [address] [address] Dk Mahoney TROPONIN, HIGH SENSITIVITYon 07-05-2022 HSTROP 21.4 pg/mL Normal 4.0-76.1 [facility] Comment on above: Result Comment: CUT- OFF POINTS HAVE BEEN ESTABLISHED BASED ON THE FOURTH UNIVERSAL DEFINITIONS OF MYOCARDIAL INFARCTION. THE UPPER REFERENCE LIMIT (URL) OF TROPONIN, DEFINED THE 99TH PERCENTILE OF cTnI DISTRIBUTION IN A REFERENCE POPULATION, HAS BEEN CONFIRMED THE DECISION THRESHOLD FOR [place] DIAGNOSIS. Performed By: #### C BC #### [facility] [address] [address] [address] Dk Mahoney URINE MICROSCOPIC ONLYon BACTERIA MODERATE Abnormal NONE SEEN [facility] Comment on above: Performed By: #### M G, CMP, PHOS #### [facility] [address] [id number] Dk Mahoney Bacteria identified Cx Nom (U) INDICATED Normal [facility] Comment on above: Performed By: #### M G, CMP, PHOS #### [facility] [address] [place] [address] Dr. Dk Mahoney CAST NONE SEEN Normal NONE SEEN [facility] Comment on above: Performed By: #### M G, CMP, PHOS #### [facility] [address] [place] [address] Dr. Dk Mahoney Crystals LM Nom (Urine sed) NONE SEEN Normal NONE SEEN [facility] Comment on above: Performed By: #### M G, CMP, PHOS #### [facility] [address] [place] [address] Dr. Dk Mahoney Epithelial cells LM Ql (Urine sed) FEW Abnormal NONE SEEN /RARE [facility] Comment on above: Performed By: #### M G, CMP, PHOS #### [facility] [address] [place] [address] Dr. Dk Mahoney MUCOUS NONE SEEN Normal NONE SEEN [facility] Comment on above: Performed By: #### M G, CMP, PHOS #### [facility] [address] [place] [address] Dr. Dk Mahoney RBC 10-20 Abnormal 0-2 [facility] Comment on above: Performed By: #### M G, CMP, PHOS #### [facility] [address] [place] [address] Dr. Dk Mahoney WBC 75-100 Abnormal NONE SEEN [facility] Comment on above: Performed By: #### M G, CMP, PHOS #### [facility] [address] [place] [address] Dr. Dk Mahoney YEAST PRESENT Abnormal NONE SEEN [facility] Comment on above: Performed By: #### M G, CMP, PHOS #### [facility] [address] [place] [address] Dr. Dk Mahoney PRBC LEUKOREDUCEDon 05-11-19 23 PRBC LEUKOREDUCED Cross Match Result Compatible Unit Blood Type O Neg Unit Number [id number] Status Information Transfused Product ID Red Blood Cells Product Code [id number] Normal [facility] Comment on above: Performed By: #### P RBC #### [facility] [address] [place] [address] Dr. Dk Mahoney ABO AND RH TYPEon 05-04-2022 ABO and Rh group Nom (Bld) ABO Rh Typing O Rh Negative Normal [facility] Comment on above: Performed By: #### A NOE, TNS #### [facility] [address] [place] [address] Dr. Dk Mahoney BNPon 05-04-2022 Natriuretic peptide B (Bld) [Mass/Vol] 26151.0 pg/mL Critically high <=900.0 [facility] Comment on above: Performed By: #### M G, CMP, PHOS #### [facility] [address] [place] [address] Dr. Dk Mahoney CBC AUTO DIFFon 05-04-2022 BASO # 0.1 103/ul Normal 0.0-0.1 [facility] Comment on above: Performed By: #### M G, CMP, PHOS #### [facility] [address] [place] [address] Dr. Dk Mahoney Basophils/100 WBC (Bld) 0.7 % Normal 0.2-2.0 [facility] Comment on above: Performed By: #### M G, CMP, PHOS #### [facility] [address] [place] [address] Dr. Dk Mahoney EO # 0.3 103/ul Normal 0.0-0.7 [facility] Comment on above: Performed By: #### M G, CMP, PHOS #### [facility] [address] [place] [address] Dr. Dk Mahoney Eosinophils/100 WBC (Bld) 4.4 % Normal 0.9-7.0 [facility] Comment on above: Performed By: #### M G, CMP, PHOS #### [facility] [address] [place] [address] Dr. Dk Mahoney Erythrocyte distribution width (RBC) [Ratio] 15.4 % Critically high 11.0-15.0 [facility] Comment on above: Performed By: #### M G, CMP, PHOS #### [facility] [address] [place] [address] Dr. Dk Mahoney Hematocrit (Bld) [Volume fraction] 21.6 % Critically low 42.0-54.0 [facility] Comment on above: Performed By: #### M SHIREEN Vidal, PHOS #### [facility] [address] [place] [address] Dr. Dk Mahoney Hemoglobin (Bld) [Mass/Vol] 7.4 g/dL Critically low 14.0-18.0 [facility] Comment on above: Performed By: #### M SHIREEN Vidal, PHOS #### [facility] [address] [place] [address] Dr. Dk Mahoney IG # 0.03 10e3/ul Normal 0.00-0.03 [facility] Comment on above: Performed By: #### M SHIREEN Vidal, PHOS #### [facility] [address] [place] [address] Dr. Dk Mahoney IG % 0.4 % Normal 0.0-0.5 [facility] Comment on above: Performed By: #### M SHIREEN Vidal, PHOS #### [facility] [address] [place] [address] Dr. Dk Mahoney LYMPH # 0.9 103/ul Critically low 1.2-3.8 [facility] Comment on above: Performed By: #### M SHIREEN Vidal, PHOS #### [facility] [address] [place] [address] Dr. Dk Mahoney Lymphocytes/100 WBC (Bld) 13.8 % Critically low 20.5-60.0 [facility] Comment on above: Performed By: #### M Yuong CMP, PHOS #### [facility] [address] [place] [address] Dr. Dk Mahoney MANUAL DIFF REQ NO Normal [facility] Comment on above: Performed By: #### M Young CMP, PHOS #### [facility] [address] [place] [address] Dr. Dk Mahoney MCH (RBC) [Entitic mass] 28.4 pg Normal 25.9-34.0 [facility] Comment on above: Performed By: #### M Young CMP, PHOS #### [facility] [address] [place] [address] Dr. Dk Mahoney MCHC (RBC) [Mass/Vol] 34.3 g/dL Normal 29.9-35.2 [facility] Comment on above: Performed By: #### M G, CMP, PHOS #### [facility] [address] [place] [address] Dr. Dk Mahoney MCV (RBC) [Entitic vol] 82.8 fL Normal 80.0-94.0 [facility] Comment on above: Performed By: #### M G, CMP, PHOS #### [facility] [address] [place] [address] Dr. Dk Mahoney MONO # 0.6 103/ul Normal 0.3-0.8 [facility] Comment on above: Performed By: #### M G, CMP, PHOS #### [facility] [address] [place] [address] Dr. Dk Mahoney Monocytes/100 WBC (Bld) 8.8 % Normal 1.7-12.0 [facility] Comment on above: Performed By: #### M G, CMP, PHOS #### [facility] [address] [place] [address] Dr. Dk Mahoney NEUT # 4.9 103/ul Normal 1.4-6.5 [facility] Comment on above: Performed By: #### M G, CMP, PHOS #### [facility] [address] [place] [address] Dr. Dk Mahoney Neutrophils/100 WBC (Bld) 71.9 % Normal 43.0-75.0 [facility] Comment on above: Performed By: #### M G, CMP, PHOS #### [facility] [address] [place] [address] Dr. Dk Mahoney Platelet mean volume (Bld) [Entitic vol] 9.3 fL Critically low 9.5-13.5 [facility] Comment on above: Performed By: #### M G, CMP, PHOS #### [facility] [address] [place] [address] Dr. Dk Mahoney PLT 178 103/ul Normal 150-450 [facility] Comment on above: Performed By: #### M SHIREEN Vidal, PHOS #### [facility] [address] [address] [address] Dk Mahoney RBC 2.61 106/ul Critically low 4.70-6.10 [facility] Comment on above: Performed By: #### M SHIREEN Vidal, PHOS #### [facility] [address] [address] [address] Dk Mahoney WBC 6.8 103/ul Normal 4.0-11.0 [facility] Comment on above: Performed By: #### M SHIREEN Vidal, PHOS #### [facility] [address] [address] [address] Dk Mahoney [facility]15 SARS-CoV-2 (COVID-19) RNA JASON+probe Ql (Unsp spec) Not detected Normal NOT DETECTED [facility] Comment on above: Result Comment: When diagnostic testing is negative, the possibility of a false negative should be considered in the context of a patient's recent exposures and the presence of clinical signs and symptoms consistent with SARS-CoV-2. This test is not yet approved or cleared by the [place] FDA. When there are no FDA-approved or cleared tests available, and other criteria are met, FDA can make tests available under an emergency access mechanism called an Emergency Use Authorization (EUA). The EUA for this test is supported by the [place] of Health and Human Service's declaration that circumstances exist to justify the emergency use of in vitro diagnostics for the detection and/or diagnosis of the virus that causes COVID-19. This EUA will remain in effect for the duration of the COVID-19 declaration justifying emergency of IVDs, unless it is terminated or revoked by the FDA (after which the test may no longer be used). Performed By: #### P OCGLUC #### [facility] [address] [address] [address] Dk Mahoney PROF CHEM 8 (BAS METB)on Anion gap [Moles/Vol] 14.7 mmol/L Normal [facility] Comment on above: Performed By: #### M G, CMP, PHOS #### [facility] [address] [address] [address] Dk Mahoney Calcium [Mass/Vol] 9.3 mg/dL Normal 8.5-10.1 [facility] Comment on above: Performed By: #### M G, CMP, PHOS #### [facility] [address] [address] [address] Dk Mahoney Chloride [Moles/Vol] 109 mmol/L Critically high 98-107 [facility] Comment on above: Performed By: #### M G, CMP, PHOS #### [facility] [address] [place] [address] Dr. Dk Mahoney CO2 [Moles/Vol] 21.3 mmol/L Normal 21.0-32.0 [facility] Comment on above: Performed By: #### M Young, CMP, PHOS #### [facility] [address] [place] [address] Dr. Dk Mahoney Creatinine [Mass/Vol] 4.61 mg/dL Critically high 0.70-1.30 [facility] Comment on above: Performed By: #### M Young, CMP, PHOS #### [facility] [address] [place] [address] Dr. Dk Mahoney EGFR-AF INDONESIAN 15 mL/min/1.73m2 Critically low >=60 [facility] Comment on above: Performed By: #### M G, CMP, PHOS #### [facility] [address] [place] [address] Dr. Dk Mahoney EGFR-NON AF INDONESIAN 13 mL/min/1.73m2 Critically low >=60 [facility] Comment on above: Performed By: #### M G, CMP, PHOS #### [facility] [address] [place] [address] Dr. Dk Mahoney Glucose [Mass/Vol] 200 mg/dL Critically high [address] [facility] Comment on above: Performed By: #### M G, CMP, PHOS #### [facility] [address] [address] [address] Dk Mahoney Potassium [Moles/Vol] 5.0 mmol/L Normal 3.5-5.1 [facility] Comment on above: Performed By: #### M G, CMP, PHOS #### [facility] [address] [address] [address] Dk Mahoney Sodium [Moles/Vol] 140 mmol/L Normal 136-145 [facility] Comment on above: Performed By: #### M G, CMP, PHOS #### [facility] [address] [address] [address] Dk Mahoney Urea nitrogen [Mass/Vol] 64.0 mg/dL Critically high 7.0-18.0 [facility] Comment on above: Performed By: #### M Young, CMP, PHOS #### [facility] [address] [address] [address] Dk Mahoney Urea nitrogen/Creatinine [Mass ratio] 13.9 mg/mg Normal [facility] Comment on above: Performed By: #### M Young, CMP, PHOS #### [facility] [address] [address] [address] Dk Mahoney TROPONIN, HIGH SENSITIVITYon 05-04-2022 HSTROP 29.4 pg/mL Normal 4.0-76.1 [facility] Comment on above: Result Comment: CUT- OFF POINTS HAVE BEEN ESTABLISHED BASED ON THE FOURTH UNIVERSAL DEFINITIONS OF MYOCARDIAL INFARCTION. THE UPPER REFERENCE LIMIT (URL) OF TROPONIN, DEFINED THE 99TH PERCENTILE OF cTnI DISTRIBUTION IN A REFERENCE POPULATION, HAS BEEN CONFIRMED THE DECISION THRESHOLD FOR [place] DIAGNOSIS. Performed By: #### M G, CMP, PHOS #### [facility] [address] [address] [address] Dk Mahoney TYPE AND SCREENon 05-04-2022 TYPE AND SCREEN Negative Normal [facility] Comment on above: Performed By: #### A NOE, TNS #### [facility] [address] [address] [address] Dk Mahoney US ROWAN DOP LEG LTon 05-04-19 23 US ROWAN DOP LEG LT EXAM: US ROWAN DOP LEG LT HISTORY: Pain and swelling of the left lower extremity. COMPARISON: None TECHNIQUE: Grayscale ultrasonography imaging and color doppler examination / spectral analysis was performed for complete evaluation / characterization. FINDINGS: Normal augmentation, compression and flow are seen throughout the deep venous system of the extremity.There is no evidence of superficial thrombophlebitis. Evaluation is limited by body habitus. IMPRESSION: No evidence of a deep venous thrombosis. Electronically authenticated by: ROBERTO HEBERT Date: 2022-05-04 14:33 Normal [facility] PRBC LEUKOREDUCEDon 04-29-19 23 PRBC LEUKOREDUCED Cross Match Result Compatible Unit Blood Type O Neg Unit Number [id number] Status Information Transfused Product ID Red Blood Cells Product Code [id number] Normal [facility] Comment on above: Performed By: #### P RBC #### [facility] [address] [place] [address] Dr. Dk Mahoney ABO RH RETYPEon 04-19-2022 ABO and Rh group Nom (Bld) DONE Normal [facility] Comment on above: Performed By: #### M G, CMP, PHOS #### [facility] [address] [place] [address] Dr. Dk Mahoney CBC AUTO DIFFon 04-19-2022 BASO # 0.1 103/ul Normal 0.0-0.1 [facility] Comment on above: Performed By: #### M G, CMP, PHOS #### [facility] [address] [place] [address] Dr. Dk Mahoney Basophils/100 WBC (Bld) 0.8 % Normal 0.2-2.0 [facility] Comment on above: Performed By: #### M G, CMP, PHOS #### [facility] [address] [place] [address] Dr. Dk Mahoney EO # 0.5 103/ul Normal 0.0-0.7 [facility] Comment on above: Performed By: #### M G, CMP, PHOS #### [facility] [address] [place] [address] Dr. Dk Mahoney Eosinophils/100 WBC (Bld) 6.9 % Normal 0.9-7.0 [facility] Comment on above: Performed By: #### M SHIREEN Vidal, PHOS #### [facility] [address] [place] [address] Dr. Dk Mahoney Erythrocyte distribution width (RBC) [Ratio] 16.3 % Critically high 11.0-15.0 [facility] Comment on above: Performed By: #### M SHIREEN Vidal, PHOS #### [facility] [address] [place] [address] Dr. Dk Mahoney Hematocrit (Bld) [Volume fraction] 20.8 % Critically low 42.0-54.0 [facility] Comment on above: Performed By: #### Rosmery Vidal CMP, PHOS #### [facility] [address] [place] [address] Dr. Dk Mahoney Hemoglobin (Bld) [Mass/Vol] 6.8 g/dL Critically low 14.0-18.0 [facility] Comment on above: Performed By: #### Rosmery Vidal CMP, PHOS #### [facility] [address] [place] [address] Dr. Dk Mahoney IG # 0.04 10e3/ul Critically high 0.00-0.03 [facility] Comment on above: Performed By: #### M SHIREEN Vidal, PHOS #### [facility] [address] [place] [address] Dr. Dk Mahoney IG % 0.6 % Critically high 0.0-0.5 [facility] Comment on above: Performed By: #### M Young CMP, PHOS #### [facility] [address] [place] [address] Dr. Dk Mahoney LYMPH # 1.0 103/ul Critically low 1.2-3.8 [facility] Comment on above: Performed By: #### M Young CMP, PHOS #### [facility] [address] [place] [address] Dr. Dk Mahoney Lymphocytes/100 WBC (Bld) 14.1 % Critically low 20.5-60.0 [facility] Comment on above: Performed By: #### M G, CMP, PHOS #### [facility] [address] [place] [address] Dr. Dk Mahoney MANUAL DIFF REQ NO Normal [facility] Comment on above: Performed By: #### M G, CMP, PHOS #### [facility] [address] [place] [address] Dr. Dk Mahoney MCH (RBC) [Entitic mass] 29.3 pg Normal 25.9-34.0 [facility] Comment on above: Performed By: #### M G, CMP, PHOS #### [facility] [address] [place] [address] Dr. Dk Mahoney MCHC (RBC) [Mass/Vol] 32.7 g/dL Normal 29.9-35.2 [facility] Comment on above: Performed By: #### M G, CMP, PHOS #### [facility] [address] [place] [address] Dr. Dk Mahoney MCV (RBC) [Entitic vol] 89.7 fL Normal 80.0-94.0 [facility] Comment on above: Performed By: #### M G, CMP, PHOS #### [facility] [address] [place] [address] Dr. Dk Mahoney MONO # 0.7 103/ul Normal 0.3-0.8 [facility] Comment on above: Performed By: #### M G, CMP, PHOS #### [facility] [address] [place] [address] Dr. Dk Mahoney Monocytes/100 WBC (Bld) 10.1 % Normal 1.7-12.0 [facility] Comment on above: Performed By: #### M G, CMP, PHOS #### [facility] [address] [place] [address] Dr. Dk Mahoney NEUT # 4.9 103/ul Normal 1.4-6.5 [facility] Comment on above: Performed By: #### M G, CMP, PHOS #### [facility] [address] [place] [address] Dr. Dk Mahoney Neutrophils/100 WBC (Bld) 67.5 % Normal 43.0-75.0 [facility] Comment on above: Performed By: #### M SHIREEN Vidal, PHOS #### [facility] [address] [place] [address] Dr. Dk Mahoney Platelet mean volume (Bld) [Entitic vol] 9.5 fL Normal 9.5-13.5 [facility] Comment on above: Performed By: #### Rosmery Vidal CMP, PHOS #### [facility] [address] [address] [address] Dk Mahoney PLT 212 103/ul Normal 150-450 [facility] Comment on above: Performed By: #### Rosmery Vidal CMP, PHOS #### [facility] [address] [place] [address] Dr. Dk Mahoney RBC 2.32 106/ul Critically low 4.70-6.10 [facility] Comment on above: Performed By: #### Rosmery Vidal CMP, PHOS #### [facility] [address] [place] [address] Dr. Dk Mahoney WBC 7.2 103/ul Normal 4.0-11.0 [facility] Comment on above: Performed By: #### Rosmery Vidal CMP, PHOS #### [facility] [address] [place] [address] Dr. Dk Mahoney [facility]on SARS-CoV-2 (COVID-19) RNA JASON+probe Ql (Unsp spec) Not detected Normal NOT DETECTED [facility] Comment on above: Result Comment: When diagnostic testing is negative, the possibility of a false negative should be considered in the context of a patient's recent exposures and the presence of clinical signs and symptoms consistent with SARS-CoV-2. This test is not yet approved or cleared by the [place] FDA. When there are no FDA-approved or cleared tests available, and other criteria are met, FDA can make tests available under an emergency access mechanism called an Emergency Use Authorization (EUA). The EUA for this test is supported by the Waste Handling Technician of Health and Human Service's declaration that circumstances exist to justify the emergency use of in vitro diagnostics for the detection and/or diagnosis of the virus that causes COVID-19. This EUA will remain in effect for the duration of the COVID-19 declaration justifying emergency of IVDs, unless it is terminated or revoked by the FDA (after which the test may no longer be used). Performed By: #### Rosmery Vidal CMP, PHOS #### [facility] [address] [place] [address] Dr. Dk Mahoney PROF 14(COMP METB)on 023 Albumin [Mass/Vol] 2.4 g/dL Critically low 3.4-5.0 [facility] Comment on above: Performed By: #### Rosmery Vidal CMP, PHOS #### [facility] [address] [place] [address] Dr. Dk Mahoney Albumin/Globulin [Mass ratio] 0.6 {ratio} Normal [facility] Comment on above: Performed By: #### Rosmery Vidal CMP, PHOS #### [facility] [address] [place] [address] Dr. Dk Mahoney ALP [Catalytic activity/Vol] 142 U/L Critically high 46-116 [facility] Comment on above: Performed By: #### Rosmery Vidal CMP, PHOS #### [facility] [address] [place] [address] Dr. Dk Mahoney ALT [Catalytic activity/Vol] 26 U/L Normal 16-63 [facility] Comment on above: Performed By: #### Rosmery Vidal CMP, PHOS #### [facility] [address] [place] [address] Dr. Dk Mahoney Anion gap [Moles/Vol] 12.0 mmol/L Normal [facility] Comment on above: Performed By: #### Rosmery Vidal CMP, PHOS #### [facility] [address] [place] [address] Dr. Dk Mahoney AST [Catalytic activity/Vol] 19 U/L Normal 15-37 [facility] Comment on above: Performed By: #### Rosmery Vidal CMP, PHOS #### [facility] [address] [place] [address] Dr. Dk Mahoney Bilirubin [Mass/Vol] 0.3 mg/dL Normal 0.2-1.0 [facility] Comment on above: Performed By: #### M G, CMP, PHOS #### [facility] [address] [address] [address] Dk Mahoney Calcium [Mass/Vol] 9.3 mg/dL Normal 8.5-10.1 [facility] Comment on above: Performed By: #### M G, CMP, PHOS #### [facility] [address] [address] [address] Dk Mahoney Chloride [Moles/Vol] 109 mmol/L Critically high 98-107 [facility] Comment on above: Performed By: #### M G, CMP, PHOS #### [facility] [address] [place] [address] Dr. Dk Mahoney CO2 [Moles/Vol] 25.0 mmol/L Normal 21.0-32.0 [facility] Comment on above: Performed By: #### M G, CMP, PHOS #### [facility] [address] [address] [address] Dk Mahoney Creatinine [Mass/Vol] 4.83 mg/dL Critically high 0.70-1.30 [facility] Comment on above: Performed By: #### M G, CMP, PHOS #### [facility] [address] [address] [address] Dk Mahoney EGFR-AF INDONESIAN 15 mL/min/1.73m2 Critically low >=60 [facility] Comment on above: Performed By: #### M G, CMP, PHOS #### [facility] [address] [address] [address] Dk Mahoney EGFR-NON AF INDONESIAN 12 mL/min/1.73m2 Critically low >=60 [facility] Comment on above: Performed By: #### M G, CMP, PHOS #### [facility] [address] [address] [address] Dk Mahoney Globulin (S) [Mass/Vol] 4.1 g/dL Normal [facility] Comment on above: Performed By: #### M G, CMP, PHOS #### [facility] [address] [address] [address] Dk Mahoney Glucose [Mass/Vol] 128 mg/dL Critically high 74-106 [facility] Comment on above: Performed By: #### M G, CMP, PHOS #### [facility] [address] [address] [address] Dk Mahoney Potassium [Moles/Vol] 5.0 mmol/L Normal 3.5-5.1 [facility] Comment on above: Performed By: #### M G, CMP, PHOS #### [facility] [address] [address] [address] Dk Mahoney Protein [Mass/Vol] 6.5 g/dL Normal 6.4-8.2 [facility] Comment on above: Performed By: #### M G, CMP, PHOS #### [facility] [address] [address] [address] Dk Mahoney Sodium [Moles/Vol] 141 mmol/L Normal 136-145 [facility] Comment on above: Performed By: #### M G, CMP, PHOS #### [facility] [address] [place] [address] Dr. Dk Mahoney Urea nitrogen [Mass/Vol] 62.0 mg/dL Critically high 7.0-18.0 [facility] Comment on above: Performed By: #### M G, CMP, PHOS #### [facility] [address] [address] [address] Dk Mahoney Urea nitrogen/Creatinine [Mass ratio] 12.8 mg/mg Normal [facility] Comment on above: Performed By: #### M G, CMP, PHOS #### [facility] [address] [place] [address] Dr. Dk Mahoney PROTIMEon 04-19-2022 INR Coag (PPP) [Relative time] 1.01 {INR} Normal [facility] Comment on above: Performed By: #### P OCGLUC #### [facility] [address] [place] [address] Dr. Dk Mahoney INR GUIDELINES SEE BELOW Normal [facility] Comment on above: Result Comment: JOSELO RED INR: 2.0 - 3.0 CONDITIONS NOT LISTED BELOW 2.5 - 3.5 FOR PROSTHETIC HEART VALVE REPLACEMENT 2.5 - 3.5 RECURRENT THROMBOSIS Performed By: #### P OCGLUC #### [facility] [address] [place] [address] Dr. Dk Mahoney PT Coag (PPP) [Time] 10.9 s Normal 9.0-11.6 [facility] Comment on above: Performed By: #### P OCGLUC #### [facility] [address] [place] [address] Dr. Dk Mahoney PTTon 04-19-2022 aPTT Coag (Bld) [Time] 25.8 s Normal 22.3-36.2 [facility] Comment on above: Performed By: #### P OCGLUC #### [facility] [address] [place] [address] Dr. Dk Mahoney TYPE AND SCREENon 04-19-2022 TYPE AND SCREEN Negative Normal [facility] Comment on above: Performed By: #### P OCGLUC #### [facility] [address] [place] [address] Dr. Dk Mahoney CBC AUTO DIFFon 10-24-2021 BASO # 0.1 103/ul Normal 0.0-0.1 [facility] Comment on above: Performed By: #### C BC #### [facility] [address] [place] [address] Dr. Dk Mahoney Basophils/100 WBC (Bld) 0.7 % Normal 0.2-2.0 [facility] Comment on above: Performed By: #### C BC #### [facility] [address] [place] [address] Dr. Dk Mahoney EO # 0.6 103/ul Normal 0.0-0.7 [facility] Comment on above: Performed By: #### C BC #### [facility] [address] [place] [address] Dr. Dk Mahoney Eosinophils/100 WBC (Bld) 7.7 % Critically high 0.9-7.0 [facility] Comment on above: Performed By: #### C BC #### [facility] [address] [place] [address] Dr. Dk Mhaoney Erythrocyte distribution width (RBC) [Ratio] 17.2 % Critically high 11.0-15.0 [facility] Comment on above: Performed By: #### C BC #### [facility] [address] [place] [address] Dr. Dk Mahoney Hematocrit (Bld) [Volume fraction] 26.1 % Critically low 42.0-54.0 [facility] Comment on above: Performed By: #### C BC #### [facility] [address] [place] [address] Dr. Dk Mahoney Hemoglobin (Bld) [Mass/Vol] 8.1 g/dL Critically low 14.0-18.0 [facility] Comment on above: Performed By: #### C BC #### [facility] [address] [place] [address] Dr. Dk Mahoney IG # 0.06 10e3/ul Critically high 0.00-0.03 [facility] Comment on above: Performed By: #### C BC #### [facility] [address] [place] [address] Dr. Dk Mahoney IG % 0.8 % Critically high 0.0-0.5 [facility] Comment on above: Performed By: #### C BC #### [facility] [address] [place] [address] Dr. Dk Mahoney LYMPH # 1.4 103/ul Normal 1.2-3.8 [facility] Comment on above: Performed By: #### C BC #### [facility] [address] [place] [address] Dr. Dk Mahoney Lymphocytes/100 WBC (Bld) 18.1 % Critically low 20.5-60.0 [facility] Comment on above: Performed By: #### C BC #### [facility] [address] [place] [address] Dr. Dk Mahoney MANUAL DIFF REQ NO Normal [facility] Comment on above: Performed By: #### C BC #### [facility] [address] [place] [address] Dr. Dk Mahoney MCH (RBC) [Entitic mass] 25.6 pg Critically low 25.9-34.0 [facility] Comment on above: Performed By: #### C BC #### [facility] [address] [place] [address] Dr. Dk Mahoney MCHC (RBC) [Mass/Vol] 31.0 g/dL Normal 29.9-35.2 [facility] Comment on above: Performed By: #### C BC #### [facility] [address] [place] [address] Dr. Dk Mahoney MCV (RBC) [Entitic vol] 82.3 fL Normal 80.0-94.0 [facility] Comment on above: Performed By: #### C BC #### [facility] [address] [place] [address] Dr. Dk Mahoney MONO # 0.9 103/ul Critically high 0.3-0.8 [facility] Comment on above: Performed By: #### C BC #### [facility] [address] [place] [address] Dr. Dk Mahoeny Monocytes/100 WBC (Bld) 12.4 % Critically high 1.7-12.0 [facility] Comment on above: Performed By: #### C BC #### [facility] [address] [place] [address] Dr. Dk Mahoney NEUT # 4.6 103/ul Normal 1.4-6.5 [facility] Comment on above: Performed By: #### C BC #### [facility] [address] [place] [address] Dr. Dk Mahoney Neutrophils/100 WBC (Bld) 60.3 % Normal 43.0-75.0 [facility] Comment on above: Performed By: #### C BC #### [facility] [address] [place] [address] Dr. Dk Mahoney Platelet mean volume (Bld) [Entitic vol] 9.5 fL Normal 9.5-13.5 [facility] Comment on above: Performed By: #### C BC #### [facility] [address] [address] [address] Dk Mahoney PLT 201 103/ul Normal 150-450 [facility] Comment on above: Performed By: #### C BC #### [facility] [address] [address] [address] Dk Mahoney RBC 3.17 106/ul Critically low 4.70-6.10 [facility] Comment on above: Performed By: #### C BC #### [facility] [address] [address] [address] Dk Mahoney WBC 7.5 103/ul Normal 4.0-11.0 [facility] Comment on above: Performed By: #### C BC #### [facility] [address] [place] [address] Dr. Dk Mahoney PROF CHEM 8 (BAS METB)on Anion gap [Moles/Vol] 12.3 mmol/L Normal [facility] Comment on above: Performed By: #### M Young, CMP, PHOS #### [facility] [address] [place] [address] Dr. Dk Mahoney Calcium [Mass/Vol] 9.6 mg/dL Normal 8.5-10.1 [facility] Comment on above: Performed By: #### M G, CMP, PHOS #### [facility] [address] [place] [address] Dr. Dk Mahoney Chloride [Moles/Vol] 107 mmol/L Normal 98-107 [facility] Comment on above: Performed By: #### M G, CMP, PHOS #### [facility] [address] [place] [address] Dr. kD Mahoney CO2 [Moles/Vol] 26.5 mmol/L Normal 21.0-32.0 [facility] Comment on above: Performed By: #### M G, CMP, PHOS #### [facility] [address] [place] [address] Dr. Dk Mahoney Creatinine [Mass/Vol] 3.76 mg/dL Critically high 0.70-1.30 [facility] Comment on above: Performed By: #### M Young, CMP, PHOS #### [facility] [address] [address] [address] Dk Mahoney EGFR-AF INDONESIAN 19 mL/min/1.73m2 Critically low >=60 [facility] Comment on above: Performed By: #### M G, CMP, PHOS #### [facility] [address] [address] [address] Dk Mahoney EGFR-NON AF INDONESIAN 16 mL/min/1.73m2 Critically low >=60 [facility] Comment on above: Performed By: #### M Young, CMP, PHOS #### [facility] [address] [address] [address] Dk Mahoney Glucose [Mass/Vol] 143 mg/dL Critically high 74-106 [facility] Comment on above: Performed By: #### M Young, CMP, PHOS #### [facility] [address] [address] [address] Dk Mahoney Potassium [Moles/Vol] 4.8 mmol/L Normal 3.5-5.1 [facility] Comment on above: Performed By: #### M Young, CMP, PHOS #### [facility] [address] [address] [address] Dk Mahoney Sodium [Moles/Vol] 141 mmol/L Normal 136-145 [facility] Comment on above: Performed By: #### M G, CMP, PHOS #### [facility] [address] [address] [address] Dk Mahoney Urea nitrogen [Mass/Vol] 47.0 mg/dL Critically high 7.0-18.0 [facility] Comment on above: Performed By: #### M G, CMP, PHOS #### [facility] [address] [address] [address] Dk Mahoney Urea nitrogen/Creatinine [Mass ratio] 12.5 mg/mg Normal [facility] Comment on above: Performed By: #### M SHIREEN Vidal PHOS #### [facility] [address] [address] [address] Dk Mahoney US ROWAN DOP LEG BILon 022 US ROWAN DOP LEG SERGIO US ROWAN DOP LEG SERGIO, 10/24/2021 2:43 PM EDT INDICATION: Deep venous thrombosis COMPARISON: 05/23/2021 FINDINGS: Bilateral lower extremity venous duplex There is diminished compression of the left mid to distal femoral vein with normal flow and augmentation. No intraluminal thrombi are visualized within the left femoral vein. The remaining visualized veins of each venous system of the lower extremity are within normal limits with regard to spontaneous flow, phasic flow, augmentation and compression. No intraluminal thrombus formation is identified. No superficial venous thrombus is present. IMPRESSION: No evidence of acute deep or superficial venous thrombosis. Electronically authenticated by: MARQUES AMAYA Date: 2021-10-24 18:07 Normal [facility] Office Visit (Urology)on Follow-up visit Diagnoses/Problems Assessed Bilateral kidney stones (592.0) (N20.0) Patient Discussion/Summary A 69 years old patient with bilateral staghorn stone. Left-sided stent. Possible treatment options. Explained that the gold standard for his stone burden would be PCNL. I discussed the procedure, risks, benefits, and complications. Explained that there is high risk for bleeding, infection, and injury to other organ. Explained that there is a higher stone free rates in comparison to ureteroscopy. Also discussed doing ureteroscopy. In this case he will need a staged procedure. Probably 2 or 3 procedures on the left side and the same on the right side. Explained that there is low risk for complication but that would require multiple visits. Patient would like to consider your options and figure out transportation. Findings with my contact information. He will contact me back within a few days Chief Complaint A telephone visit (audio only) between the patient (at the originating site) and the provider (at the distant site) was utilized to provide this telehealth service. Verbal consent was requested and obtained from MATT KELLY on this date, 09/06/2020 03:30 PM , for a telehealth visit. 69 years old patient who I am seeing for evaluation management of bilateral kidney stones. Patient has multiple comorbidities including diabetes and recurrent urinary tract infections. He had an episode of sepsis from urinary tract infection earlier in 2019 and underwent left ureteral stent placement. The stent was exchanged February 2020. At a urethral catheter since then if he is too weak to ambulate. He had recurrent bouts of urinary tract infection and currently he needs a PICC line with continuous IV antibiotic I have personally reviewed CT scan from 12/02/2019.In the left kidney there is a complete staghorn stone with no hydronephrosis. Some density of approximately 800 Hounsfield units. There is a left ureteral stent in place. In the right kidney there is again, a staghorn stone filling up the upper calyx and most of the lower calyces. Does not take blood thinners. Medical history is remarkable for congestive heart failure, chronic kidney disease, morbid obesity, TIA, current UTI. Signatures Electronically signed by : Rebecca Hunt MD; Sep 06 2020 2:12PM EST (Author) [facility] Microscopic UrinalysisOrdere d By: Riana Pro on 08-29-2020 - [employer] Work Phone: Amorphous, UA NOT REPORTED None [employer] Work Phone: Bacteria, UA 2+ Abnormal None [facility] Work Phone: Casts UA NOT REPORTED /LPF [facility] Work Phone: Crystals, UA NOT REPORTED None /HPF [facility] Work Phone: Epithelial Cells UA 2 TO 5 [employer] [facility] Work Phone: Interpretation and review of laboratory results Abnormal [facility] Work Phone: Mucus, UA NOT REPORTED None [facility] Work Phone: Other Observations UA NOT REPORTED NOT REQ. [employer] [facility] Work Phone: RBC, UA 50 TO 100 [employer] [facility] Work Phone: Renal Epithelial, UA NOT REPORTED 0 /HPF [facility] Work Phone: Trichomonas, UA NOT REPORTED None [facility] Work Phone: WBC, UA GREATER THAN 100 [employer] [facility] Work Phone: Yeast, UA NOT REPORTED None [employer] [facility] Work Phone: [facility] Work Phone: Urinalysis Reflex to Culture Ordered By: Riana Pro on 08-29-2020 Bilirubin Urine Negative NEGATIVE [facility] Work Phone: Color, UA YELLOW YELLOW [employer] [facility] Work Phone: Glucose, Ur Negative NEGATIVE [employer] [facility] Work Phone: Interpretation and review of laboratory results Abnormal [employer] [facility] Work Phone: Ketones Ql (U) Negative NEGATIVE [employer] Work Phone: Leukocyte esterase Test strip Ql (U) LARGE Abnormal NEGATIVE [email or web address] Phone: Nitrite, Urine Positive Abnormal NEGATIVE [employer] Work Phone: pH, UA 7.5 [facility] Work Phone: Protein, UA 1+ Abnormal NEGATIVE [employer] [facility] Work Phone: Specific [place], UA 1.010 [employer] Work Phone: Turbidity UA CLEAR CLEAR [employer] [facility] Work Phone: Urinalysis Comments NOT REPORTED [facility] Work Phone: Urine Hgb 3+ Abnormal NEGATIVE [facility] Work Phone: Urobilinogen, Urine Normal Normal [facility] Work Phone: [facility] Work Phone: Microscopic Urinalysison Amorphous, UA NOT REPORTED None [facility] [place], [place] Bacteria, UA 2+ Abnormal None [facility] - [place], [place] Casts UA NOT REPORTED /LPF [facility] [place] Crystals, UA NOT REPORTED None /HPF [facility] [employer] [place] Epithelial Cells UA 2 TO 5 [facility] Interpretation and review of laboratory results Abnormal [place], [place] Mucus, UA NOT REPORTED None [place], [place] Other Observations UA NOT REPORTED NOT REQ. M [place], [place] RBC (U) [#/Vol] 20 TO 50 [place], [place] Renal Epithelial, UA NOT REPORTED 0 /HPF [place] Trichomonas, UA NOT REPORTED None [place], [place] WBC, UA GREATER THAN 100 [place], [place] Yeast, UA NOT REPORTED None [place], [place] - [place] Urinalysison 02-03-2020 Bilirubin Urine Negative NEGATIVE [place], [place] Color, UA YELLOW YELLOW [place], [place] Glucose, Ur Negative NEGATIVE [place] Interpretation and review of laboratory results Abnormal [place] Ketones Ql (U) Negative NEGATIVE [place], [place] Leukocyte esterase Test strip Ql (U) LARGE Abnormal NEGATIVE [place] Nitrite, Urine Positive Abnormal NEGATIVE [place] pH, UA 8.0 [place] Protein (U) [Mass/Vol] TRACE Abnormal NEGATIVE [place] Specific [place], UA 1.015 [place], [place] Turbidity UA SLIGHTLY CLOUDY Abnormal CLEAR [place], [place] Urinalysis Comments NOT REPORTED [place], [place] Urine Hgb 3+ Abnormal NEGATIVE [place] Urobilinogen, Urine Normal Normal [place] Vital Signs Date Time Vital Sign Value Performing Clinician Facility 10-08-2022 12:20-0400 Body height 180.34 cm Devaughn Lucio Other [employer] [facility] [employer] Other 10-08-2022 12:20-0400 Body temperature 96.6 [degF] Devaughn Aviladir Other [facility] Other 10-08-2022 12:20-0400 Diastolic blood pressure 60 mm[Hg] Devaughn Lucio Other [facility] Other 10-08-2022 12:20-0400 Respiratory rate 18 /min Devaughn Khadijah Other [facility] Other 10-08-2022 12:20-0400 SaO2% (BldA) [Mass fraction] 100 % Devaughn Khadijah Other [facility] Other 10-08-2022 12:20-0400 Systolic blood pressure 121 mm[Hg] Devaughn Khadijah Other [facility] Other 10-01-2022 13:30-0400 Body height 180.34 cm Erik Sanderson Other [facility] Other 10-01-2022 13:30-0400 Body mass index (BMI) [Ratio] 42.12 kg/m2 Erik Shepherdrer Other [facility] Other 10-01-2022 13:30-0400 Body temperature 97.2 [degF] Erik Shepherdrer Other [facility] Other 10-01-2022 13:30-0400 Body weight 136.99 kg Erik Shepherdrer Other [facility] Other 10-01-2022 13:30-0400 Diastolic blood pressure 68 mm[Hg] Erik Ariasehrer Other [facility] Other 10-01-2022 13:30-0400 SaO2% (BldA) [Mass fraction] 97 % Erik Ariasehrer Other [facility] Other 10-01-2022 13:30-0400 Systolic blood pressure 138 mm[Hg] Erik Sanderson Other [facility] Other Encounters Encounter Date Encounter Type Care Provider Facility Start: 01-17-2023 End: 01-18-2023 ambulatory [facility] Start: 10-21-2022 End: 10-21-2022 ambulatory Devaughn Khadijah Other [facility] Other Start: 10-21-2022 Telephone encounter Devaughn Khadijah [facility] Start: 10-18-2022 End: 10-18-2022 ambulatory Devaughn Khadijah Other [facility] Other Start: 10-18-2022 Telephone encounter Devaughn Khadijah [facility] Start: 10-08-2022 End: 10-08-2022 ambulatory Devaughn Khadijah Other [facility] Other Start: 10-08-2022 Office outpatient visit 15 minutes Devaughn Khadijah [facility] Start: 10-01-2022 End: 10-01-2022 ambulatory Erik Sanderson Other [facility] Other Start: 10-01-2022 Office outpatient visit 25 minutes Erik Sanderson [facility] Start: 08-31-2022 End: 09-01-2022 ambulatory ЕЛЕНА SAMSON Facility:CD:[id number] Start: 08-30-2022 End: 09-04-2022 Evaluation and management of inpatient Eldon López Facility:[facility] Start: 07-05-2022 End: 07-07-[address] ERIK RHODES . Facility:[facility] Start: 05-04-2022 End: 05-04-2022 ambulatory ROBERTO HEBERT Facility:[facility] Start: 04-19-2022 End: 04-19-[address] ERIK RHODES . Facility:[facility] Start: 03-14-2022 End: 12-01-[address] NONE LISTED REQUEST Facility: Start: 10-24-2021 End: 10-24-2021 ambulatory PA FUAD KEVIN . Facility: Start: 08-29-2020 End: 08-29-2020 [facility] Start: 02-03-2020 End: 02-03-2020 Subsequent hospital visit by physician [facility] Laboratory Procedures Date Procedure Procedure Detail Performing Clinician Start: 08-31-2022 Antibody screen Eldon López Comment on above: Order Comment: NEEDS DRAWN Result Comment: PERF ORMED BY: [facility] [address] [place] [address] PATHOLOGIST ASSEMBLER [employer]IPMENT BRANDEN WHATLEY M.D. Start: 08-29-2020 Urinalysis microscop ic only Riana Pantoja Morteza DO Work Phone: Start: 08-29-2020 Urnls dip stick/tabl et rgnt auto w/o microscopy Riana Pantoja Morteza DO Work Phone: Start: 02-03-2020 Urinalysis microscop ic only Riana Pro Work Phone: Start: 02-03-2020 Urnls dip stick/tabl et rgnt auto w/o microscopy Riana Pro Work Phone: Plan of Treatment Date Care Activity Detail Author Start: 12-13-2020 Influenza vaccination Flu vacc ine (Season Ended) [facility] Work Phone: Start: 04-30-2020 Creatinine measurement Creatinine mo [place]itoring [place] Start: 04-30-2020 Potassium monitoring Potassium monit oring [place] Start: 12-14-2019 Influenza vaccination Flu vaccine (# 1) [place] Start: 02-08-2019 Annual Wellness Visi t (AWV) Annual Wellness Visit (AWV) [place] Start: 09-11-2015 Pneumococcal 65+ yea rs Vaccine (1 of 1 - PPSV23) Pneumococcal 65+ years Vaccine (1 of 1 - PPSV23) [place] Start: 2000 Screening for malign ant neoplasm of colon Colon cancer screen colonoscopy [place] Start: 2000 Shingles Vaccine (1 of 2) Ordoñez gles Vaccine (1 of 2) [place] Start: 1969 DTaP/Tdap/Td vaccine (1 - Tdap) DTaP/Tdap/Td vaccine (1 - Tdap) [place] Start: 1962 COVID-19 Vaccine (1) COVID-19 Vaccin e (1) [facility] Phone: Start: 1960 Lipid panel Lipid screen [place], [place] Start: 1950 Hepatitis C screening Hepatitis C sc reen [place], [place] End: 02-03-2020 Culture, Urine Culture, Urine Microbiology Routine Once for 1 Occurrences starting 02/03/2020 until 02/03/2020 [place] Comment on above: Once for 1 Occurrenc es starting 02/03/2020 until 02/03/2020 Culture, Urine [place] End: 08-29-2020 Culture, Urine Culture, Urine Microbiology Routine Once for 1 Occurrences starting 08/29/2020 until 08/29/2020 [facility] [employer] Phone: Comment on above: Once for 1 Occurrenc es starting 08/29/2020 until 08/29/2020 Payers Date Payer Category Payer Self-pay 2022 Unknown [id number] 2022 Medicare [id number] 2020 Medicare [id number] 2019 Medicare [id number] 2019 Unknown [id number] 2014 Medicare [employer] MEDICARE [facility] [id number] 2014-Present [address] [address] [place] [address] [id number] 1950 Unknown [id number] 1950 Unknown [id number] 1950 Unknown [id number] 1950 Unknown [id number] 1950 Unknown [id number] 1950 Unknown [id number] 1950 Unknown [id number] Medicare [id number] Unknown [id number] Social History Date Type Detail Facility Start: 02-05-2019 Tobacco smoking status NHIS Unknown if ever smoked [facility] [place] Start: 1950 Sex Assigned At Not on file [facility] [place] Sex Assigned At Sex Assigned At [facility] Other Evaluation note 10-08-2022 Note Date & Type Note Facility 10-08-2022 Evaluation note Encounter Date Diagnosis Assessment Notes Sep, CKD (chronic kidney disease) stage 4, GFR 15-29 ml/min (ICD-10 - N18.4) He has a CKD due to the longstanding hypertension and recurrent SHAWN due to the obstructive uropathy. He recently required hemodialysis due to the obstructive uropathy. He was monitored by the [facility] and catheter was removed as his renal function was improving as per the patient. Patient currently bedbound and can not be transferred out of the stretcher at our office. He does not want to follow-up in our office. Advised him to continue follow with the PCP and the [facility] for CKD and renal function monitoring Patient's recent lab from the [facility] are not available. 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 He appears to be euvolemic. Continue current medications. Sep, Secondary hyperparathyroidism (ICD-10 - N25.81) Continue sevelamer and vitamin D as prescribed by [facility] physician. Continue to follow with the [facility] [place]. Sep, Anemia of renal disease (ICD-10 - D63.1) Continue oral iron. Sep, Nephrolithiasis (ICD-10 - N20.0) Continue follow up with urology. [facility] Other Evaluation note 10-01-2022 Note Date & Type Note Facility 10-01-2022 Evaluation note Encounter Date Diagnosis Assessment Notes Sep, End stage renal disease (ICD-10 - N18.6) Sep, Dependence on renal dialysis (ICD-10 - Z99.2) Sep, Other Dialysis catheter no longer in use Patient was left on his stretcher and the exit site of the dialysis catheter and the entire tunnel were prepped and draped. A large ring block of anesthesia was placed along the entire tunnel. The catheter was then grasped and the sutures were removed. It was delivered up from the tunnel with blunt dissection and removed in its entirety. He tolerated this well and a dressing was applied. [facility] Other Evaluation note Note Date & Type Note Facility Evaluation note No Information [email or web address] Other History general Narrative - Reported Note Date & Type Note Facility History general Narrative - Reported Type Medical History ACUTE KIDNEY INJURY Medical History URINARY TRACT INFECTION Medical History RENAL CALCULI Medical History RENAL STENTS X2 Medical History IV ANTIBIOTIC THERAPY Medical History RIGHT UPPER CHEST DIALYSIS CATH Surgical History RENAL STENTS X 2 Surgical History KIDNEY STONE REMOVAL Surgical History RIGHT UPPER CHEST CATH PLACEMEN T Surgical History RIGHT UPPER CHEST CATH REMOVAL Hospitalization History SEE ABOVE Hospitalization History [facility] 09/11/19 [facility] Other Advance Directives No Advanced Directives Records FoundDocuments on File Type Date 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 ACP-Advance Directive ACP-Power of Director Career Summary Purpose Family History No Family History Records FoundNo Family History Records FoundNo Family History Records FoundNo Family History Records FoundNo Family History Records Found Additional Source Comments (unrecognized sect ion and content) No Status Records FoundNo Status Records FoundNo Status Records FoundNo Status Records FoundNo Status Records Found INFORMATION SOURCE (unrecogn ized section and content) DATE CREATED AUTHOR 09/09/2020 [facility] DATE CREATED AUTHOR AUTHOR'S ORGANIZ ATION 07/20/2022 [facility] DATE CREATED AUTHOR AUTHOR'S ORGANIZ ATION 09/22/2022 [facility] DATE CREATED AUTHOR AUTHOR'S ORGANIZ ATION 10/29/2022 [facility] DATE CREATED AUTHOR AUTHOR'S ORGANIZ ATION 01/20/2023 [facility] REASON FOR VISIT (unrecogniz ed section and content) CATH REMOVAL, Dialysis oliver ter no longer in useRENAL CKD 4 / [facility] FOR RECORDS PERTAINING TO PATIENTS WHO ARE OR HAVE BEEN ENROLLED IN A CHEMICAL DEPENDENCY/SUBSTANCEABUSE PROGRAM, SOME INFORMATION MAY BE OMITTED. This clinical summary was aggregated from multiple sources. Caution should be exercised in using it in the provision of clinical care. This summary normalizes information from multiple sources, and as a consequence, information in this document may materially change the coding, format and clinical context of patient data. In addition, data may be omitted in some cases. CLINICAL DECISIONS SHOULD BE BASED ON THE PRIMARY CLINICAL RECORDS. [facility]. provides no warranty or guarantee of the accuracy or completeness of information in this document.
[2023-08-16 22:13] LABS: Basophils Absolute Auto 0.1 10^3/uL (0.0-0.1); Basophils Percent Auto 0.7 % (0.2-2.0); Eosinophils Absolute Auto 0.3 10^3/uL (0.0-0.7); Eosinophils Percent Auto 3.7 % (0.9-7.0); Hemoglobin 9.8 g/dL (14.0-18.0); Immature Granulocytes Abs Auto 0.03 10^3/uL (0.00-0.03); Immature Granulocytes Pct Auto 0.4 % (0.0-0.5); Lymphocytes Absolute Auto 1.2 10^3/uL (1.2-3.8); Lymphocytes Percent Auto 14.8 % (20.5-60.0); Mean Corpuscular HGB Conc 31.6 g/dL (29.9-35.2); Mean Corpuscular Hemoglobin 28.8 pg (25.9-34.0); Mean Corpuscular Volume 91.2 fL (80.0-94.0); Mean Platelet Volume 9.9 fL (9.5-13.5); Monocytes Absolute Auto 0.8 10^3/uL (0.3-0.8); Monocytes Percent Auto 9.8 % (1.7-12.0); Neutrophils Absolute Auto 5.8 10^3/uL (1.4-6.5); Neutrophils Percent Auto 70.6 % (43.0-75.0); Platelet Count 151 10^3/uL (150-450); Red Cell Distribution Width 14.6 % (11.0-15.0); White Blood Count 8.2 10^3/uL (4.0-11.0)
[2023-08-16] MEDS: 0.9 % SODIUM CHLORIDE 1,000 ML 999 ML IV (22:14)
[2023-08-16 22:31] LABS: Lactate/Lactic Acid 0.5 mmol/L (0.4-2.0)
[2023-08-16 22:32] LABS: BUN Creatinine Ratio 18.4; Carbon Dioxide 21.7 mmol/L (21.0-32.0); Chloride 104 mmol/L (98-107); Estimated GFR (African America 12 (>=60); Estimated GFR (Non-African Ame 10 (>=60); Glucose 110 mg/dL (74-106); Potassium 4.7 mmol/L (3.5-5.1); Sodium 138 mmol/L (136-145); Troponin I High Sensitivity 25.6 pg/mL (4.0-76.1)
[2023-08-16 23:38] LABS: Bilirubin Urine NEGATIVE (NEGATIVE); Blood Urine LARGE (NEGATIVE); Clarity Urine CLEAR (CLEAR); Color Urine YELLOW (YELLOW); Glucose Urine UA 100 mg/dL (NEGATIVE); Ketones Urine NEGATIVE (NEGATIVE); Leukocyte Esterase Urine LARGE (NEGATIVE); Nitrite Urine POSITIVE (NEGATIVE); Protein Urine 100 mg/dL (NEG/TRACE); Specific Gravity Urine 1.015 (1.005-1.025); Urobilinogen Urine 0.2 EU/dL (0.2-1.0); pH Urine 7.5 (5.0-9.0)
[2023-08-16 23:39] LABS: Urine Microscopic Indicated YES
[2023-08-16 23:40] LABS: Bacteria Urine MODERATE #/HPF (NONE SEEN); Mucus Urine NONE SEEN (NONE SEEN); RBC Urine 20-50 #/HPF (0-2); Squamous Epithelial Cell Urine NONE SEEN #/LPF (NONE/RARE); WBC Urine 50-75 #/HPF (NONE SEEN)
[2023-08-16 23:41] LABS: Cast Seen? NONE SEEN #/LPF (NONE SEEN); Crystals Seen? None Seen #/HPF (None Seen); Urine Culture Indicated YES
[2023-08-17] VITALS (13 sets, daily range): BP systolic 95–168; BP diastolic 54–79; PULSE 73–82; TEMP 36.3–36.6; O2SAT 91–98; BMI 39.5
--- OUTSIDE RECORDS SUMMARY | 2023-08-17 02:12 | XMS_ITS | CCD ---
Author Organization [facility] Care Team Providers Care Retouching Operator Name Role Phone Unavailable Primary Care Provider UnavailROBERTO Raman Consulting Unavailable DIAB ., GAVIOTA Attending Unavailable DIAB ., GAVIOTA Admitting Unavailable [...] Admitting Unavailable REQUEST, NONE LISTED Primary Care UnavailMAQRUES Byers Consulting Unavailable PAY ., DR GRAVES [...] Consulting Unavailable Erik Sanderson Consulting Unavailable Sarahi Wladen Consulting Unavailable Jesús Dinero Consulting Unavailable Umang Yan MELANIE J Referring Unavailable Allergies Allergy Classification Reported Allergen(s) Allergy Type Date of Onset Reaction(s) Facility Penicillins (antibiotic) (1 source) Penicillins Drug Allergy 02-06-20 [facility] (1 source) Penicillins Propensity to adverse reactions to drug 02-06-20 [facility] [place] (2 sources) Penicillin; Translations: [penicillin] Drug Allergy [facility] (2 sources) Sulfamethoxazole / Trimethoprim; Translations: [Bactrim] Drug Allergy [facility] (1 source) No Known Medication Allergies; Translations: [No Known Medication Allergies] Propensity to adverse reactions (disorder) [facility] Repository (3 sources) Penicillin G Drug Allergy Unknown [facility] [employer] Other (3 sources) Sulfamethoxazole / Trimethoprim Drug Allergy Unknown [facility] [employer] Other (1 source) Penicillins Drug allergy (disorder) 08-31-19 [facility] (1 source) Sulfamethoxazole Drug Allergy 08-31-19 [facility] (1 source) Trimethoprim Drug Allergy 08-31-19 [facility] Medications Current Medications Medication Drug [...] mouth every morning (before breakfast) 0 Active [id number] 200 actuat albuterol 0.09 mg/actuat metered dose [...] Once a day Active polyethylene glycol 3350 24231 mg powder for oral solution (3 sources) [...] disease (2 sources) Atherosclerotic heart disease of [place] coronary artery without angina pectoris; Translations: [Chronic [...] Onset: 2 Chronic Other aftercare (1 source) correction (current) use of aspirin; Translations: [ASSISTED CURRENT USE OF ASPIRIN] Onset: 3 Episodic Other aftercare (1 source) 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 [address] Editor Managing Newspaper: Rao Espinosa MD UA w/Reflex Cultureon 2022 Bilirubin, SemiQt,Ur Negative Normal NEG [facility] Comment on above: Performed By: #### U RADHAO, UAX #### [facility] [address] [place] [address] Editor Managing Newspaper: Rao Espinosa MD Blood, Urine 2+ Abnormal NEG [facility] Comment on above: Performed By: #### U RADHAO, UAX #### [facility] [address] [place] [address] Editor Managing Newspaper: Rao Espinosa MD Clarity (U) Cloudy Abnormal CLEAR [facility] Comment on above: Performed By: #### U RADHAO, UAX #### [facility] [address] [place], [place] [id number] Editor Managing Newspaper: Rao Espinosa MD Color (U) Yellow Normal YEL [facility] Comment on above: Performed By: #### U MICAO, UAX #### [facility] [address] [place], [place] [phone] Editor Managing Newspaper: Rao Espinosa MD Glucose Ql (U) TRACE Abnormal NEG [facility] Comment on above: Performed By: #### U MICAO, UAX #### [facility] [address] [place], [place] [id number] Editor Managing Newspaper: Rao Espinosa MD Ketones Ql (U) Negative Normal NEG [facility] Comment on above: Performed By: #### U MICAO, UAX #### [facility] [address] [place] [address] Dr[place], [place] [id number] Editor Managing Newspaper: Rao Espinosa MD Leukocyte esterase Test strip Ql (U) LARGE Abnormal NEG [facility] Comment on above: Performed By: #### U MICAO, UAX #### [facility] [address] [place] [address] Dr. [place], [place] [id number] Editor Managing Newspaper: Rao Espinosa MD Nitrite,Ur Positive Abnormal NEG [facility] Comment on above: Performed By: #### U MICAO, UAX #### [facility] [address] [place], [place] [phone] Editor Managing Newspaper: Rao Espinosa MD PH,Ur 7.0 Normal 5.0-9.0 [facility] Comment on above: Performed By: #### U MICAO, UAX #### [facility] [address] [place] [address] [place], [place] [id number] Editor Managing Newspaper: Rao Espinosa MD Protein Ql (U) 1+ mg/dL Abnormal NEG [facility] Comment on above: Performed By: #### U MICAO, UAX #### [facility] [address] [place], [place] [id number] Editor Managing Newspaper: Rao Espinosa MD Spec. [place],Ur 1.010 Normal 1.010-1.020 [facility] Comment on above: Performed By: #### U MICAO, UAX #### [facility] [address] [place], [place] [phone] Editor Managing Newspaper: Rao Espinosa MD Urobilinogen,Ur Normal Normal 0.0-1.0 [facility] Comment on above: Performed By: #### U MICAO, UAX #### [facility] [address] [place], [place] [id number] Editor Managing Newspaper: Rao Espinosa MD Urinalysis,Microon 3 Bacteria 3+ Abnormal NONE [facility] Comment on above: Performed By: #### U MICAO, UAX #### [facility] [address] [place], [place] [id number] Editor Managing Newspaper: Rao Espinosa MD Epithelial cells LM Ql (Urine sed) 0 TO 2 Normal 0-5 [facility] Comment on above: Performed By: #### U MICAO, UAX #### [facility] [address] [place], [place] [phone] Editor Managing Newspaper: Rao Espinosa MD Urine RBC's 5 TO 10 Normal 0-2 [facility] Comment on above: Performed By: #### U MICAO, UAX #### [facility] [address] [place], [place] [phone] Editor Managing Newspaper: Rao Espinosa MD Urine WBC's GREATER THAN 100 Normal 0-5 [facility] Comment on above: Performed By: #### U MICAO, UAX #### [facility] [address] [place] [address] Editor Managing Newspaper: Rao Espinosa MD Glucose Poct Glucometerson 0 09-04-2022 Glucose [Mass/Vol] 122 mg/dL Normal [facility] Comment on above: Result Comment: [facility] Glucose Reference Range is dependent on time and content of last meal. Glucose of more than 200 mg/dL in a nonstressed, ambulatory subject supports the diagnosis of Diabetes Mellitus. PERFORMED BY: [facility] [address] [place] [address] PATHOLOGIST CANE CUTTER BRANDEN WHATLEY M.D. Performed By: #### G LULS #### Point of Care testing , Renal Function Panelon 09-04 Albumin [Mass/Vol] 2.4 g/dL Low 3.5-5.7 [facility] Comment on above: Performed By: #### G LULS #### Point of Care testing , Anion gap [Moles/Vol] 14.8 mmol/L Normal 6.0-15.0 [facility] Comment on above: Performed By: #### G LULS #### Point of Care testing , Calcium [Mass/Vol] 8.6 mg/dL Normal 8.6-10.3 [facility] Comment on above: Performed By: #### G LULS #### Point of Care testing , Chloride [Moles/Vol] 99 mmol/L Normal 98-107 [facility] Comment on above: Performed By: #### G LULS #### Point of Care testing , CO2 [Moles/Vol] 24.7 mmol/L Normal 21.0-31.0 [facility] Comment on above: Performed By: #### G LULS #### Point of Care testing , Creatinine [Mass/Vol] 6.52 mg/dL Significan t change up 0.70-1.30 [facility] Comment on above: Performed By: #### G LULS #### Point of Care testing , Creatinine Clr Calc Pharmacy 16.01 [facility] Comment on above: Result Comment: PERF ORMED BY: [facility] [address] [place] [address] PATHOLOGIST CANE CUTTER JIANLAN SUN M.D. Performed By: #### G LULS #### Point of Care testing , GFR/1.73 sq M.predicted MDRD (S/P/Bld) [Vol rate/Area] 8.483 mL/min/{1.73_m2} Normal [facility] Comment on above: Performed By: #### G LULS #### Point of Care testing , Glucose [Mass/Vol] 115 mg/dL High 70-100 [facility] Comment on above: Result Comment: [place] Glucose Reference Range is dependent on time and content of last meal. Glucose of more than 200 mg/dL in a nonstressed, ambulatory subject supports the diagnosis of Diabetes Mellitus. ADA recommended reference range Performed By: #### G LULS #### Point of Care testing , Phosphate [Mass/Vol] 6.4 mg/dL Normal 3.7-7.2 [facility] Comment on above: Performed By: #### G LULS #### Point of Care testing , Potassium [Moles/Vol] 4.5 mmol/L Normal 3.5-5.1 [facility] Comment on above: Performed By: #### G LULS #### Point of Care testing , Sodium [Moles/Vol] 134 mmol/L Low 136-145 [facility] Comment on above: Performed By: #### G LULS #### Point of Care testing , Urea nitrogen [Mass/Vol] 76 mg/dL High 7-25 [facility] Comment on above: Performed By: #### G LULS #### Point of Care testing , [facility] SARS-CoV-2 (COVID-19) RNA JASON+probe Ql (Unsp spec) Negative Normal Negative [facility] Comment on above: Order Comment: Healt hcare Worker?: N Result Comment: Testing for SARS-CoV-2 by RT-PCR This test was developed and its performance characteristics determined by [employer] and validated at the [facility]. This test has not been FDA [...] is terminated or revoked sooner. PERFORMED BY: [place] [address] PATHOLOGIST CANE CUTTER BRANDEN WHATLEY M.D. Performed By: #### F E and TIBC, [id number], ODALIS #### [address] Glucose Poct Glucometerson 0 09-03-2022 Glucose [Mass/Vol] 152 mg/dL Normal [facility] Comment on above: Result Comment: [facility] Glucose Reference Range is dependent on time and content of last meal. Glucose of more than 200 mg/dL in a nonstressed, ambulatory subject supports the diagnosis of Diabetes Mellitus. PERFORMED BY: [place] [address] PATHOLOGIST CANE CUTTER BRANDEN WHATLEY M.D. Performed By: #### G LULS #### Point of Care testing , Glucose [Mass/Vol] 111 mg/dL Normal [facility] Comment on above: Result Comment: [facility] Glucose Reference Range is dependent on time and content of last meal. Glucose of more than 200 mg/dL in a nonstressed, ambulatory subject supports the diagnosis of Diabetes Mellitus. PERFORMED BY: [place] [address] PATHOLOGIST CANE CUTTER BRANDEN WHATLEY M.D. Performed By: #### G LULS #### Point of Care testing , Glucose [Mass/Vol] 106 mg/dL Normal [facility] Comment on above: Result Comment: [facility] Glucose Reference Range is dependent on time and content of last meal. Glucose of more than 200 mg/dL in a nonstressed, ambulatory subject supports the diagnosis of Diabetes Mellitus. PERFORMED BY: [facility] [address] [place] [address] PATHOLOGIST CANE CUTTER BRANDEN WHATLEY M.D. Performed By: #### G LULS #### Point of Care testing , Glucose [Mass/Vol] 140 mg/dL Normal [facility] Comment on above: Result Comment: [facility] Glucose Reference Range is dependent on time and content of last meal. Glucose of more than 200 mg/dL in a nonstressed, ambulatory subject supports the diagnosis of Diabetes Mellitus. PERFORMED BY: [facility] [address] [place] [address] PATHOLOGIST CANE CUTTER BRANDEN WHATLEY M.D. Performed By: #### G LULS #### Point of Care testing , Hemogram CBC Without Diffon 09-03-2022 Erythrocyte distribution width (RBC) [Ratio] 14.9 % High 12.0-14.8 [facility] Comment on above: Performed By: #### G LULS #### Point of Care testing , Hematocrit (Bld) [Volume fraction] 25.1 % Low 38.8-50.0 [facility] Comment on above: Performed By: #### G LULS #### Point of Care testing , Hemoglobin (Bld) [Mass/Vol] 8.4 g/dL Low 13.0-17.0 [facility] Comment on above: Performed By: #### G LULS #### Point of Care testing , MCH (RBC) [Entitic mass] 29.5 pg Normal 27.5-35.2 [facility] Comment on above: Performed By: #### G LULS #### Point of Care testing , MCV (RBC) [Entitic vol] 87.8 fL Normal 83.5-101 [facility] Comment on above: Performed By: #### G LULS #### Point of Care testing , Mean Corpuscular HGB Conc 33.5 g/dL Normal 32.5-35.6 [facility] Comment on above: Performed By: #### G LULS #### Point of Care testing , Platelet mean volume (Bld) [Entitic vol] 8.0 fL Normal 6.6-10.1 [facility] Comment on above: Result Comment: PERF ORMED BY: [place] [address] PATHOLOGIST CANE CUTTER BRANDEN WHATLEY M.D. Performed By: #### G LULS #### Point of Care testing , Platelets (Bld) [#/Vol] 111 10*3/uL Significant change down 150-450 [facility] Comment on above: Performed By: #### G LULS #### Point of Care testing , RBC (Bld) [#/Vol] 2.86 10*6/uL Low 3.90-5.60 [facility] Comment on above: Performed By: #### G LULS #### Point of Care testing , WBC (Bld) [#/Vol] 8.1 10*3/uL Normal 4.1-10.5 [facility] Comment on above: Performed By: #### G LULS #### Point of Care testing , Hepatitis Acute Panelon 08-13 HBsAg Screen Negative Normal Negative [facility] Comment on above: Order Comment: pt no t in room Performed By: #### F E and TIBC, [id number], ODALIS #### [facility] [address] [place] [address] Hepatitis A Antibody IgM Negative Normal Negative [facility] Comment on above: Order Comment: pt no t in room Performed By: #### F E and TIBC, [id number], ODALIS #### [facility] [address] [place] [address] Hepatitis B Core Antibody IgM Negative Normal Negative [facility] Comment on above: Order Comment: pt no t in room Result Comment: Ve rified by repeat analysis Performed By: #### F E and TIBC, [id number], ODALIS #### [facility] [address] [place] [address] Hepatitis C Virus Antibody Non-Reactive Normal Non Reactive [facility] Comment on above: Order Comment: pt no t in room Performed By: #### F E and TIBC, [id number], ODALIS #### [address] Interpretation Hepatitis C Normal . [facility] Comment on above: Order Comment: pt no t in room Result Comment: Not infected with HCV unless early or acute infection is suspected (which may be delayed in an immunocompromised individual), or other evidence exists to indicate HCV infection. Performed By: #### F E and TIBC, [id number], ODALIS #### [address] Hepatitis B Core Antibodyon 09-03-2022 Hepatitis B Core Antibody Negative Normal Negative [facility] Comment on above: Order Comment: pt no t in room Result Comment: Perf ormed at: - [facility] [id number] Editor Managing Newspaper: Mata Pérez PhD, Phone: [phone] PERFORMED BY: [place] [address] PATHOLOGIST CANE CUTTER BRANDEN WHATLEY M.D. Performed By: #### F E and TIBC, [id number], ODALIS #### [address] Hepatitis B Surface Antibody on 09-03-2022 Hepatitis B Surface Antibody Reactive Normal . [facility] Comment on above: Order Comment: pt no t in room Result Comment: Non Reactive: Inconsistent with immunity, less than 10 mIU/mL Reactive: Consistent with immunity, greater than 9.9 mIU/mL Performed By: #### F E and TIBC, [id number], ODALIS #### [facility] [address] [place] [address] Renal Function Panelon 09-03 Albumin [Mass/Vol] 2.4 g/dL Low 3.5-5.7 [facility] Comment on above: Performed By: #### G LULS #### Point of Care testing , Anion gap [Moles/Vol] 16.5 mmol/L High 6.0-15.0 [facility] Comment on above: Performed By: #### G LULS #### Point of Care testing , Calcium [Mass/Vol] 8.7 mg/dL Normal 8.6-10.3 [facility] Comment on above: Performed By: #### G LULS #### Point of Care testing , Chloride [Moles/Vol] 101 mmol/L Normal 98-107 [facility] Comment on above: Performed By: #### G LULS #### Point of Care testing , CO2 [Moles/Vol] 22.4 mmol/L Normal 21.0-31.0 [facility] Comment on above: Performed By: #### G LULS #### Point of Care testing , Creatinine [Mass/Vol] 8.19 mg/dL Significan t change up 0.70-1.30 [facility] Comment on above: Performed By: #### G LULS #### Point of Care testing , Creatinine Clr Calc Pharmacy 12.70 [facility] Comment on above: Result Comment: PERF ORMED BY: [facility] [address] [place] [address] PATHOLOGIST CANE CUTTER BRANDEN WHATLEY M.D. Performed By: #### G LULS #### Point of Care testing , GFR/1.73 sq M.predicted MDRD (S/P/Bld) [Vol rate/Area] 6.452 mL/min/{1.73_m2} [facility] Comment on above: Performed By: #### G LULS #### Point of Care testing , Glucose [Mass/Vol] 112 mg/dL High 70-100 [facility] Comment on above: Result Comment: [place] Glucose Reference Range is dependent on time and content of last meal. Glucose of more than 200 mg/dL in a nonstressed, ambulatory subject supports the diagnosis of Diabetes Mellitus. ADA recommended reference range Performed By: #### G LULS #### Point of Care testing , Phosphate [Mass/Vol] 6.7 mg/dL Normal 3.7-7.2 [facility] Comment on above: Performed By: #### G LULS #### Point of Care testing , Potassium [Moles/Vol] 4.9 mmol/L Normal 3.5-5.1 [facility] Comment on above: Performed By: #### G LULS #### Point of Care testing , Sodium [Moles/Vol] 135 mmol/L Low 136-145 [facility] Comment on above: Performed By: #### G LULS #### Point of Care testing , Urea nitrogen [Mass/Vol] 99 mg/dL High 7-25 [facility] Comment on above: Performed By: #### G LULS #### Point of Care testing , Stool Occult Blood (Immuno)o n 09-03-2022 Stool Occult Blood (Immuno) Occult Blood (Immuno) Positive for Occult Blood by Immunochemical Methodology Reference range = Negative PERFORMED BY: [place] [address] PATHOLOGIST CANE CUTTER BRANDEN WHATLEY M.D. [facility] Comment on above: Performed By: #### G LULS #### Point of Care testing , XR chest 1V portableon 09-03 XR chest 1V portable [facility] [place] [address] XRay Report Signed Patient: Matt Kelly MR#: [id number] : 1950 Acct:[id number] Age/Sex: 71 / M ADM Date: 08/30/22 Loc: Room: [address] [place] [address] Type: ADM IN Attending Dr: Eldon López [...] Rafi Morales M.D.09/03/2022 3:02 PM Dictation Location: [place] [address] Transcribed By: [facility] 09/03/22 1502 Dictated By: Rafi Morales II, MD 09/03/22 1501 Signed By: 09/03/22 1502 Normal [facility] Complete Blood Count Auto Di ffon 09-02-2022 Basophils (Bld) [#/Vol] 0.1 10*3/uL Normal 0.0-0.2 [facility] Comment on above: Result Comment: PERF ORMED BY: [facility] [address] [place] [address] PATHOLOGIST CANE CUTTER BRANDEN WHATLEY M.D. Performed By: #### G LULS #### Point of Care testing , Basophils/100 WBC (Bld) 0.4 % Normal . [facility] Comment on above: Performed By: #### G LULS #### Point of Care testing , Eosinophils (Bld) [#/Vol] 0.1 10*3/uL Normal 0.0-0.45 [facility] Comment on above: Performed By: #### G LULS #### Point of Care testing , Eosinophils/100 WBC (Bld) 0.5 % Normal . [facility] Comment on above: Performed By: #### G LULS #### Point of Care testing , Erythrocyte distribution width (RBC) [Ratio] 14.8 % Normal 12.0-14.8 [facility] Comment on above: Performed By: #### G LULS #### Point of Care testing , Hematocrit (Bld) [Volume fraction] 26.7 % Low 38.8-50.0 [facility] Comment on above: Performed By: #### G ZAC #### Point of Care testing , Hemoglobin (Bld) [Mass/Vol] 8.7 g/dL Low 13.0-17.0 [facility] Comment on above: Performed By: #### G SUSIELS #### Point of Care testing , Lymphocytes (Bld) [#/Vol] 0.6 10*3/uL Low 1.00-4.8 [facility] Comment on above: Performed By: #### G SUSIELS #### Point of Care testing , Lymphocytes/100 WBC (Bld) 3.6 % Normal . [facility] Comment on above: Performed By: #### G SUSIELS #### Point of Care testing , MCH (RBC) [Entitic mass] 28.6 pg Normal 27.5-35.2 [facility] Comment on above: Performed By: #### Young RICHARDSLS #### Point of Care testing , MCV (RBC) [Entitic vol] 87.9 fL Normal 83.5-101 [facility] Comment on above: Performed By: #### Young FRANK #### Point of Care testing , Mean Corpuscular HGB Conc 32.5 g/dL Normal 32.5-35.6 [facility] Comment on above: Performed By: #### G ZAC #### Point of Care testing , Monocytes (Bld) [#/Vol] 0.9 10*3/uL High 0.0-0.8 [facility] Comment on above: Performed By: #### G ZAC #### Point of Care testing , Monocytes/100 WBC (Bld) 5.9 % Normal . [facility] Comment on above: Performed By: #### G SUSIELS #### Point of Care testing , Neutrophils (Bld) [#/Vol] 13.9 10*3/uL High 1.8-7.7 [facility] Comment on above: Performed By: #### G SUSIELS #### Point of Care testing , Neutrophils/100 WBC (Bld) 89.6 % Normal . [facility] Comment on above: Performed By: #### G ZAC #### Point of Care testing , NRBC% 0.1 /100{WBC} Normal 0-0.5 [facility] Comment on above: Performed By: #### G ZAC #### Point of Care testing , Platelet mean volume (Bld) [Entitic vol] 7.8 fL Normal 6.6-10.1 [facility] Comment on above: Performed By: #### G ZAC #### Point of Care testing , Platelets (Bld) [#/Vol] 146 10*3/uL Low 150-450 [facility] Comment on above: Performed By: #### G ZAC #### Point of Care testing , RBC (Bld) [#/Vol] 3.04 10*6/uL Low 3.90-5.60 [facility] Comment on above: Performed By: #### Young FRANK #### Point of Care testing , WBC (Bld) [#/Vol] 15.5 10*3/uL High 4.1-10.5 [facility] Comment on above: Performed By: #### Young FRANK #### Point of Care testing , Comprehensive Metabolic Pane real 09-02-2022 Albumin [Mass/Vol] 2.5 g/dL Low 3.5-5.7 [facility] Comment on above: Performed By: #### C BC, RENAL, CMP ####[facility] [id number] [place] [address] [facility] Albumin/Globulin [Mass ratio] 0.8 {ratio} Normal [facility] Comment on above: Performed By: #### C BC, RENAL, CMP ####[facility] [id number] [place] [address] [facility] ALP [Catalytic activity/Vol] 97 U/L Normal 34-104 [facility] Comment on above: Performed By: #### C BC, RENAL, CMP ####[facility] [id number] [place] [address] [facility] ALT [Catalytic activity/Vol] 27 U/L Normal 7-52 [facility] Comment on above: Performed By: #### C BC, RENAL, CMP ####[facility] [place] [address] [facility] Anion gap [Moles/Vol] 15.2 mmol/L High 6.0-15.0 [facility] Comment on above: Performed By: #### C BC, RENAL, CMP ####[id number] [place] [address] [facility] AST [Catalytic activity/Vol] 14 U/L Normal 13-39 [facility] Comment on above: Performed By: #### C BC, RENAL, CMP ####[place] [place] [address] [facility] Bilirubin [Mass/Vol] 0.3 mg/dL Normal 0.3-1.0 [facility] Comment on above: Performed By: #### C BC, RENAL, CMP ####[address] [address] [facility] Calcium [Mass/Vol] 8.5 mg/dL Low 8.6-10.3 [facility] Comment on above: Performed By: #### C BC, RENAL, CMP ####[address] [address] [facility] Chloride [Moles/Vol] 106 mmol/L Normal 98-107 [facility] Comment on above: Performed By: #### C BC, RENAL, CMP ####[place] [address] [place] [address] [facility] CO2 [Moles/Vol] 20.3 mmol/L Low 21.0-31.0 [facility] Comment on above: Performed By: #### C BC, RENAL, CMP ####[address] [address] [facility] Creatinine [Mass/Vol] 6.98 mg/dL High 0.70-1.30 [facility] Comment on above: Performed By: #### C BC, RENAL, CMP ####[address] [place] [address] [facility] Creatinine Clr Calc Pharmacy 14.33 Normal [facility] Comment on above: Performed By: #### C BC, RENAL, CMP ####[place] [place] [id number] [facility] GFR/1.73 sq M.predicted MDRD (S/P/Bld) [Vol rate/Area] 7.816 mL/min/{1.73_m2} [facility] Comment on above: Performed By: #### C BC, RENAL, CMP ####[address] [place] [place] [id number] [facility] Globulin (S) [Mass/Vol] 3.1 g/dL [facility] Comment on above: Performed By: #### C BC, RENAL, CMP ####[address] [place] [place] [id number] [facility] Glucose [Mass/Vol] 118 mg/dL High 70-100 [facility] Comment on above: Result Comment: [facility] Glucose Reference Range is dependent on time and content of last meal. Glucose of more than 200 mg/dL in a nonstressed, ambulatory subject supports the diagnosis of Diabetes Mellitus. ADA recommended reference range Performed By: #### C BC, RENAL, CMP ####[place] [id number] [facility] Potassium [Moles/Vol] 5.5 mmol/L High 3.5-5.1 [facility] Comment on above: Performed By: #### C BC, RENAL, CMP ####[place] [phone] [facility] Protein [Mass/Vol] 5.6 g/dL Low 6.4-8.9 [facility] Comment on above: Performed By: #### C BC, RENAL, CMP ####[place] [id number] [facility] Sodium [Moles/Vol] 136 mmol/L Normal 136-145 [facility] Comment on above: Performed By: #### C BC, RENAL, CMP ####[place] [id number] [facility] Urea nitrogen [Mass/Vol] 92 mg/dL High 7-25 [facility] Comment on above: Performed By: #### C BC, RENAL, CMP ####[facility] [id number] [place] [address] [place] Consultation Noteon 09-03-19 Consultation Note [id number] .[id number]:127 Normal [facility] Glucose Poct Glucometerson 0 09-02-2022 Glucose [Mass/Vol] 161 mg/dL Normal [facility] Comment on above: Result Comment: [facility] Glucose Reference Range is dependent on time and content of last meal. Glucose of more than 200 mg/dL in a nonstressed, ambulatory subject supports the diagnosis of Diabetes Mellitus. PERFORMED BY: [facility] [address] [place] [id number] PATHOLOGIST CANE CUTTER BRANDEN WHATLEY M.D. Performed By: #### G LULS #### Point of Care testing , Commemt1 Glu2: Cleaned Meter Normal [facility] Comment on above: Result Comment: PERF ORMED BY: [facility] [address] [place] [address] PATHOLOGIST CANE CUTTER BRANDEN WHATLEY M.D. Performed By: #### G LULS #### Point of Care testing , Glucose [Mass/Vol] 244 mg/dL Normal [facility] Comment on above: Result Comment: [facility] Glucose Reference Range is dependent on time and content of last meal. Glucose of more than 200 mg/dL in a nonstressed, ambulatory subject supports the diagnosis of Diabetes Mellitus. Performed By: #### G LULS #### Point of Care testing , Insurance Correspondence Off iceon 09-02-2022 Insurance Correspondence Office [id number] .[id number]:127 Normal [facility] Renal Function Panelon 09-02 Phosphate [Mass/Vol] 6.5 mg/dL Normal 3.7-7.2 [facility] Comment on above: Result Comment: PERF ORMED BY: [facility] [address] [place] [id number] PATHOLOGIST CANE CUTTER BRANDEN WHATLYE M.D. Performed By: #### C BC, RENAL, CMP ####[address] Complete Blood Count Auto Di ffon 09-01-2022 Basophils (Bld) [#/Vol] 0.1 10*3/uL Normal 0.0-0.2 [facility] Comment on above: Result Comment: PERF ORMED BY: [facility] [address] [place] [address] PATHOLOGIST CANE CUTTER BRANDEN WHATLEY M.D. Performed By: #### R ENAL, CBC, CMP ####[address] Basophils/100 WBC (Bld) 1.2 % Normal . [facility] Comment on above: Performed By: #### R ENAL, CBC, CMP ####[address] Eosinophils (Bld) [#/Vol] 0.3 10*3/uL Normal 0.0-0.45 [facility] Comment on above: Performed By: #### R ENAL, CBC, CMP ####[address] Eosinophils/100 WBC (Bld) 5.5 % Normal . [facility] Comment on above: Performed By: #### R ENAL, CBC, CMP ####[address] Erythrocyte distribution width (RBC) [Ratio] 14.7 % Normal 12.0-14.8 [facility] Comment on above: Performed By: #### R ENAL, CBC, CMP ####[address] Hematocrit (Bld) [Volume fraction] 25.2 % Low 38.8-50.0 [facility] Comment on above: Performed By: #### R ENAL, CBC, CMP ####[address] Hemoglobin (Bld) [Mass/Vol] 8.3 g/dL Low 13.0-17.0 [facility] Comment on above: Performed By: #### R ENAL, CBC, CMP ####[address] Lymphocytes (Bld) [#/Vol] 0.9 10*3/uL Low 1.00-4.8 [facility] Comment on above: Performed By: #### R ENAL, CBC, CMP ####[address] Lymphocytes/100 WBC (Bld) 14.6 % Normal . [facility] Comment on above: Performed By: #### R ENDEVORA, CBC, CMP ####[address] MCH (RBC) [Entitic mass] 29.0 pg Normal 27.5-35.2 [facility] Comment on above: Performed By: #### R ENAL, CBC, CMP ####[address] MCV (RBC) [Entitic vol] 87.7 fL Normal 83.5-101 [facility] Comment on above: Performed By: #### R ENAL, CBC, CMP ####[address] Mean Corpuscular HGB Conc 33.0 g/dL Normal 32.5-35.6 [facility] Comment on above: Performed By: #### R ENAL, CBC, CMP ####[address] Monocytes (Bld) [#/Vol] 0.8 10*3/uL Normal 0.0-0.8 [facility] Comment on above: Performed By: #### R ENAL, CBC, CMP ####[address] Monocytes/100 WBC (Bld) 12.6 % Normal . [facility] Comment on above: Performed By: #### R ENAL, CBC, CMP ####[address] Neutrophils (Bld) [#/Vol] 4.0 10*3/uL Normal 1.8-7.7 [facility] Comment on above: Performed By: #### R ENAL, CBC, CMP ####[address] Neutrophils/100 WBC (Bld) 66.1 % Normal . [facility] Comment on above: Performed By: #### R ENAL, CBC, CMP ####[address] NRBC% 0.1 /100{WBC} Normal 0-0.5 [facility] Comment on above: Performed By: #### R ENAL, CBC, CMP ####[address] Platelet mean volume (Bld) [Entitic vol] 7.9 fL Normal 6.6-10.1 [facility] Comment on above: Performed By: #### R ENAL, CBC, CMP ####[address] Platelets (Bld) [#/Vol] 145 10*3/uL Low 150-450 [facility] Comment on above: Performed By: #### R ENAL, CBC, CMP ####[address] RBC (Bld) [#/Vol] 2.87 10*6/uL Low 3.90-5.60 [facility] Comment on above: Performed By: #### R ENAL, CBC, CMP ####[address] WBC (Bld) [#/Vol] 6.1 10*3/uL Normal 4.1-10.5 [facility] Comment on above: Performed By: #### R ENAL, CBC, CMP ####[address] Comprehensive Metabolic Pane real 09-01-2022 Albumin [Mass/Vol] 2.7 g/dL Low 3.5-5.7 [facility] Comment on above: Performed By: #### R TELLY, CBC, CMP ####[facility] [id number] [place] [address] [facility] Albumin/Globulin [Mass ratio] 0.9 {ratio} Normal [facility] Comment on above: Performed By: #### R TELLY, CBC, CMP ####[facility] [id number] [place] [address] [facility] ALP [Catalytic activity/Vol] 107 U/L High 34-104 [facility] Comment on above: Performed By: #### R TELLY, CBC, CMP ####[facility] [id number] [place] [address] [facility] ALT [Catalytic activity/Vol] 32 U/L Normal 7-52 [facility] Comment on above: Performed By: #### R TELLY, CBC, CMP ####[facility] [place] [address] [facility] Anion gap [Moles/Vol] 14.1 mmol/L Normal 6.0-15.0 [facility] Comment on above: Performed By: #### R TELLY, CBC, CMP ####[facility] [place] [address] [facility] AST [Catalytic activity/Vol] 21 U/L Normal 13-39 [facility] Comment on above: Performed By: #### R TELLY, CBC, CMP ####[facility] [address] [place] [address] [facility] Bilirubin [Mass/Vol] 0.4 mg/dL Normal 0.3-1.0 [facility] Comment on above: Performed By: #### R TELLY, CBC, CMP ####[facility] [id number] [place] [address] [facility] Calcium [Mass/Vol] 8.9 mg/dL Normal 8.6-10.3 [facility] Comment on above: Performed By: #### R TELLY, CBC, CMP ####[address] [place] [phone] [facility] Chloride [Moles/Vol] 110 mmol/L High 98-107 [facility] Comment on above: Performed By: #### R JANET VARNER, CMP ####[address] [place] [phone] [facility] CO2 [Moles/Vol] 17.7 mmol/L Low 21.0-31.0 [facility] Comment on above: Performed By: #### Fadia VARNER CBC, CMP ####[address] Creatinine [Mass/Vol] 6.68 mg/dL Significan t change up 0.70-1.30 [facility] Comment on above: Performed By: #### JANET WYNN, CMP ####[address] Creatinine Clr Calc Pharmacy 14.96 [facility] Comment on above: Performed By: #### R JANET VARNER, CMP ####[address] GFR/1.73 sq M.predicted MDRD (S/P/Bld) [Vol rate/Area] 8.239 mL/min/{1.73_m2} [facility] Comment on above: Performed By: #### JANET WYNN, CMP ####[address] Globulin (S) [Mass/Vol] 3.0 g/dL [facility] Comment on above: Performed By: #### R TELLY CBC, CMP ####[place] [id number] [facility] Glucose [Mass/Vol] 90 mg/dL Normal 70-100 [facility] Comment on above: Result Comment: [place] Glucose Reference Range is dependent on time and content of last meal. Glucose of more than 200 mg/dL in a nonstressed, ambulatory subject supports the diagnosis of Diabetes Mellitus. ADA recommended reference range Performed By: #### R TELLY CBC, CMP ####[facility] [address] [place] [address] [facility] Potassium [Moles/Vol] 4.8 mmol/L Normal 3.5-5.1 [facility] Comment on above: Performed By: #### R ENAL, CBC, CMP ####[address] [place] [address] [facility] Protein [Mass/Vol] 5.7 g/dL Low 6.4-8.9 [facility] Comment on above: Performed By: #### R ENAL, CBC, CMP ####[address] [place] [address] [facility] Sodium [Moles/Vol] 137 mmol/L Normal 136-145 [facility] Comment on above: Performed By: #### R ENAL, CBC, CMP ####[address] [address] [facility] Urea nitrogen [Mass/Vol] 83 mg/dL High 7-25 [facility] Comment on above: Performed By: #### R ENAL, CBC, CMP ####[address] [address] [facility] Glucose Poct Glucometerson 0 09-01-2022 Glucose [Mass/Vol] 95 mg/dL Normal [facility] Comment on above: Result Comment: [facility] Glucose Reference Range is dependent on time and content of last meal. Glucose of more than 200 mg/dL in a nonstressed, ambulatory subject supports the diagnosis of Diabetes Mellitus. PERFORMED BY: [facility] [address] [place] [address] PATHOLOGIST CANE CUTTER BRANDEN WHATLEY M.D. Performed By: #### G LULS #### Point of Care testing , Commemt1 Glu2: Cleaned Meter Normal [facility] Comment on above: Result Comment: PERF ORMED BY: [facility] [address] [place] [place] [id number] PATHOLOGIST CANE CUTTER BRANDEN WHATLEY M.D. Performed By: #### G LULS #### Point of Care testing , Glucose [Mass/Vol] 96 mg/dL Normal [facility] Comment on above: Result Comment: [place] [facility] Glucose Reference Range is dependent on time and content of last meal. Glucose of more than 200 mg/dL in a nonstressed, ambulatory subject supports the diagnosis of Diabetes Mellitus. Performed By: #### G LULS #### Point of Care testing , Glucose [Mass/Vol] 100 mg/dL Normal [facility] Comment on above: Result Comment: [place] [facility] Glucose Reference Range is dependent on time and content of last meal. Glucose of more than 200 mg/dL in a nonstressed, ambulatory subject supports the diagnosis of Diabetes Mellitus. PERFORMED BY: [facility] [address] [place] [address] PATHOLOGIST CANE CUTTER BRANDEN WHATLEY M.D. Performed By: #### G LULS ####Point of Care testing, Renal Function Panelon 09-01 Phosphate [Mass/Vol] 7.0 mg/dL Normal 3.7-7.2 [facility] Comment on above: Result Comment: PERF ORMED BY: [facility] [address] [place] [address] PATHOLOGIST CANE CUTTER BRANDEN WHATLEY M.D. Performed By: #### R ENAL, CBC, CMP ####[facility] [id number] [place] [id number] [facility] ABO/Rh Retypeon 08-31-2022 ABO/RH Recheck Result Negative Normal [facility] Comment on above: Order Comment: NEEDS DRAWN Result Comment: PERF ORMED BY: [facility] [address] [place] [address] PATHOLOGIST CANE CUTTER BRANDEN WHATLEY M.D. Basic Metabolic Panelon 08-13 Anion gap [Moles/Vol] 16.5 mmol/L High 6.0-15.0 [facility] Comment on above: Performed By: #### F E and TIBC, [id number], ODALIS #### [facility] [address] [place] [id number] [facility] Calcium [Mass/Vol] 8.3 mg/dL Low 8.6-10.3 [facility] Comment on above: Performed By: #### F E and TIBC, [id number], ODALIS #### [facility] [address] [place] [address] [place] Chloride [Moles/Vol] 111 mmol/L High 98-107 [facility] Comment on above: Performed By: #### F E and TIBC, [id number], ODALIS #### [facility] [address] [place] [address] [place] CO2 [Moles/Vol] 14.2 mmol/L Low 21.0-31.0 [facility] Comment on above: Performed By: #### F E and TIBC, [id number], ODALIS #### [facility] [address] Creatinine [Mass/Vol] 5.39 mg/dL Significan t change up 0.70-1.30 [facility] Comment on above: Performed By: #### F E and TIBC, [id number], ODALIS #### [facility] [address] [place] [address] [place] Creatinine Clr Calc Pharmacy 18.62 [facility] Comment on above: Performed By: #### F E and TIBC, [id number], ODALIS #### [facility] [address] [place] [address] [place] GFR/1.73 sq M.predicted MDRD (S/P/Bld) [Vol rate/Area] 10.659 mL/min/{1.73_m2} [facility] Comment on above: Performed By: #### F E and TIBC, [id number], ODALIS #### [facility] [address] [place] [address] [place] Glucose [Mass/Vol] 104 mg/dL High 70-100 [facility] Comment on above: Result Comment: [place] Glucose Reference Range is dependent on time and content of last meal. Glucose of more than 200 mg/dL in a nonstressed, ambulatory subject supports the diagnosis of Diabetes Mellitus. ADA recommended reference range Performed By: #### F E and TIBC, [id number], ODALIS #### [facility] [address] Potassium [Moles/Vol] 4.7 mmol/L Normal 3.5-5.1 [facility] Comment on above: Performed By: #### F E and TIBC, [id number], ODALIS #### [facility] [address] Sodium [Moles/Vol] 137 mmol/L Normal 136-145 [facility] Comment on above: Performed By: #### F E and TIBC, [id number], ODALIS #### [facility] [address] Urea nitrogen [Mass/Vol] 73 mg/dL High 7- [facility] Comment on above: Performed By: #### F E and TIBC, [id number], ODALIS #### [address] Complete Blood Count Auto Di ffon 08-31-2022 Basophils (Bld) [#/Vol] 0.0 10*3/uL Normal 0.0-0.2 [facility] Comment on above: Result Comment: PERF ORMED BY: [place] [address] PATHOLOGIST CANE CUTTER BRANDEN WHATLEY M.D. Performed By: #### B MP, CBC, MG ####[place] [address] [place] Basophils/100 WBC (Bld) 0.8 % Normal . [facility] Comment on above: Performed By: #### B MP, CBC, MG ####[facility] [place] [address] [place] Eosinophils (Bld) [#/Vol] 0.2 10*3/uL Normal 0.0-0.45 [facility] Comment on above: Performed By: #### B MP, CBC, MG ####[facility] [place] [address] [place] Eosinophils/100 WBC (Bld) 4.2 % Normal . [facility] Comment on above: Performed By: #### B MP, CBC, MG ####[address] Erythrocyte distribution width (RBC) [Ratio] 14.9 % High 12.0-14.8 [facility] Comment on above: Performed By: #### B MP, CBC, MG ####[address] Hematocrit (Bld) [Volume fraction] 19.8 % Off scale low 38.8-50.0 [facility] Comment on above: Result Comment: Crit ical Result HCT:19.8 called to and read back by: [id number] on 08/31/2022 11:09:15 by:SULY. Performed By: #### B MP, CBC, MG ####[address] Hemoglobin (Bld) [Mass/Vol] 6.4 g/dL Low 13.0-17.0 [facility] Comment on above: Performed By: #### B MP, CBC, MG ####[address] Lymphocytes (Bld) [#/Vol] 0.8 10*3/uL Low 1.00-4.8 [facility] Comment on above: Performed By: #### B MP, CBC, MG ####[address] Lymphocytes/100 WBC (Bld) 14.6 % Normal . [facility] Comment on above: Performed By: #### B MP, CBC, MG ####[place] [id number] [facility] MCH (RBC) [Entitic mass] 28.7 pg Normal 27.5-35.2 [facility] Comment on above: Performed By: #### B MP, CBC, MG ####[place] [id number] [facility] MCV (RBC) [Entitic vol] 88.3 fL Normal 83.5-101 [facility] Comment on above: Performed By: #### B MP, CBC, MG ####[address] Mean Corpuscular HGB Conc 32.5 g/dL Normal 32.5-35.6 [facility] Comment on above: Performed By: #### B MP, CBC, MG ####[address] Monocytes (Bld) [#/Vol] 0.5 10*3/uL Normal 0.0-0.8 [facility] Comment on above: Performed By: #### B MP, CBC, MG ####[address] Monocytes/100 WBC (Bld) 9.8 % Normal . [facility] Comment on above: Performed By: #### B MP, CBC, MG ####[address] Neutrophils (Bld) [#/Vol] 3.8 10*3/uL Normal 1.8-7.7 [facility] Comment on above: Performed By: #### B MP, CBC, MG ####[address] Neutrophils/100 WBC (Bld) 70.6 % Normal . [facility] Comment on above: Performed By: #### B MP, CBC, MG ####[address] NRBC% 0.0 /100{WBC} Normal 0-0.5 [facility] Comment on above: Performed By: #### B MP, CBC, MG ####[address] Platelet mean volume (Bld) [Entitic vol] 7.7 fL Normal 6.6-10.1 [facility] Comment on above: Performed By: #### B MP, CBC, MG ####[address] Platelets (Bld) [#/Vol] 142 10*3/uL Low 150-450 [facility] Comment on above: Performed By: #### B MP, CBC, MG ####[facility] [id number] RBC (Bld) [#/Vol] 2.24 10*6/uL Low 3.90-5.60 [facility] Comment on above: Performed By: #### B MP, CBC, MG ####[facility] [id number] WBC (Bld) [#/Vol] 5.4 10*3/uL Normal 4.1-10.5 [facility] Comment on above: Performed By: #### B MP, CBC, MG ####[facility] [id number] Ferritinon 08-31-2022 Ferritin [Mass/Vol] 551.8 ng/mL High 23.9-336.2 [facility] Comment on above: Performed By: #### F E and TIBC, [id number], ODALIS #### [facility] [address] Glucose Poct Glucometerson 0 08-31-2022 Commemt1 Glu2: Cleaned Meter [facility] Comment on above: Result Comment: PERF ORMED BY: [place] [address] PATHOLOGIST CANE CUTTER BRANDEN WHATLEY M.D. Performed By: #### G LULS ####Point of Care testing, Glucose [Mass/Vol] 123 mg/dL Normal [facility] Comment on above: Result Comment: [facility] Glucose Reference Range is dependent on time and content of last meal. Glucose of more than 200 mg/dL in a nonstressed, ambulatory subject supports the diagnosis of Diabetes Mellitus. Performed By: #### G LULS ####Point of Care testing, Commemt1 Glu2: Cleaned Meter [facility] Comment on above: Result Comment: PERF ORMED BY: [facility] [address] [place] [address] PATHOLOGIST CANE CUTTER BRANDEN WHATLEY M.D. Performed By: #### G LULS #### Point of Care testing , Glucose [Mass/Vol] 101 mg/dL Normal [facility] Comment on above: Result Comment: [place] om Glucose Reference Range is dependent on time and content of last meal. Glucose of more than 200 mg/dL in a nonstressed, ambulatory subject supports the diagnosis of Diabetes Mellitus. Performed By: #### G LULS #### Point of Care testing , Commemt1 Glu2: Cleaned Meter Normal [facility] Comment on above: Result Comment: PERF ORMED BY: [place] [phone] PATHOLOGIST CANE CUTTER BRANDEN WHATLEY M.D. Performed By: #### G LULS #### Point of Care testing , Glucose [Mass/Vol] 126 mg/dL Normal [facility] Comment on above: Result Comment: [place] om Glucose Reference Range is dependent on time and content of last meal. Glucose of more than 200 mg/dL in a nonstressed, ambulatory subject supports the diagnosis of Diabetes Mellitus. Performed By: #### G LULS #### Point of Care testing , Glucose [Mass/Vol] 123 mg/dL Normal [facility] Comment on above: Result Comment: [place] Glucose Reference Range is dependent on time and content of last meal. Glucose of more than 200 mg/dL in a nonstressed, ambulatory subject supports the diagnosis of Diabetes Mellitus. PERFORMED BY: [place] [phone] PATHOLOGIST CANE CUTTER BRANDEN WHATLEY M.D. Performed By: #### F E and TIBC, [id number], ODALIS #### [address] Haptoglobinon 08-31-2022 Haptoglobin 189 mg/dL Normal 44-215 [facility] Comment on above: Result Comment: PERF ORMED BY: [place] [phone] PATHOLOGIST CANE CUTTER BRANDEN WHATLEY M.D. Performed By: #### G LULS #### Point of Care testing , Iron and TIBC Profileon 08-13 0-2022 % Iron Saturation 27.5 % Normal 20-50 [facility] Comment on above: Performed By: #### F E and TIBC, [id number], ODALIS #### [facility] [address] [place] [address] [place] Iron [Mass/Vol] 53 ug/dL Normal 50-212 [facility] Comment on above: Performed By: #### F E and TIBC, [id number], ODALIS #### [facility] [address] Total Iron Binding Capacity 193 ug/dL Low 255-450 [facility] Comment on above: Performed By: #### F E and TIBC, [id number], ODALIS #### [facility] [address] [place] [address] [place] Transferrin [Mass/Vol] 138 mg/dL Low 203-362 [facility] Comment on above: Performed By: #### F E and TIBC, [id number], ODALIS #### [facility] [address] [place] [address] LDH Lactate Dehydrogenaseon 08-31-2022 LDH Lactate Dehydrogenase 100 U/L Low 140-271 [facility] Comment on above: Result Comment: PERF ORMED BY: [place] [address] PATHOLOGIST CANE CUTTER BRANDEN WHATLEY M.D. Performed By: #### G LULS #### Point of Care testing , LeukoReduced RBCon 3 LeukoReduced RBC TRANSFUSED 08/31/22 1822 Normal [facility] Magnesiumon 08-31-2022 Magnesium [Mass/Vol] 1.2 mg/dL Low 1.9-2.7 [facility] Comment on above: Result Comment: PERF ORMED BY: [place] [address] PATHOLOGIST CANE CUTTER BRANDEN WHATLEY M.D. Performed By: #### F E and TIBC, [id number], ODALIS #### [address] Reticulocyte Counton 023 Reticulocyte Number 0.069 10*6/uL Normal 0.024-0.084 [facility] Comment on above: Result Comment: PERF ORMED BY: [address] [place] [address] PATHOLOGIST CANE CUTTER BRANDEN WHATLEY M.D. Performed By: #### G LULS #### Point of Care testing , Reticulocyte Percent 2.7 % High 0.5-1.5 [facility] Comment on above: Performed By: #### G LULS #### Point of Care testing , Type and Screenon 08-31-2022 ABO and Rh group Nom (Bld) Blood group O Rh(D) negative Normal [facility] Comment on above: Order Comment: NEEDS DRAWN Result Comment: PERF ORMED BY: [place] [address] PATHOLOGIST CANE CUTTER BRANDEN WHATLEY M.D. Vit. B12/Folate Profileon Cobalamin (Vitamin B12) [Mass/Vol] 616 pg/mL Normal 180-914 [facility] Comment on above: Performed By: #### F E and TIBC, [id number], ODALIS #### [address] Folate 12.5 ng/mL Normal >5.9 [facility] Comment on above: Result Comment: Adrianna te reference range: >5.9 ng/ml The WHO technical consultation on folate and vitamin b12 deficiencies has determined that folate concentrations less than 4 ng/ml are considered deficient. PERFORMED BY: [place] [address] PATHOLOGIST CANE CUTTER BRANDEN WHATLEY M.D. Performed By: #### F E and TIBC, [id number], ODALIS #### [address] Blood Cultureon 08-30-2022 Bacteria identified Cx Nom (Bld) NO GROWTH 5 DAYS PERFORMED BY: [place] [address] PATHOLOGIST CANE CUTTER BRANDEN WHATLEY M.D. [facility] Comment on above: Performed By: #### G LULS #### Point of Care testing , Bacteria identified Cx Nom (Bld) NO GROWTH 5 DAYS PERFORMED BY: [address] [address] PATHOLOGIST CANE CUTTER BRANDEN WHATLEY M.D. [facility] Comment on above: Performed By: #### G LULS #### Point of Care testing , CT abdomen pelvis wo conon 0 08-30-2022 CT abdomen pelvis wo con [facility] Main [place] [address] [place] [id number] [address] Scan Report Signed Patient: Matt Kelly MR#: [id number] : 1950 Acct:[id number] Age/Sex: 71 / M ADM Date: 08/30/22 Loc: ER Room: Type: [facility] ER Attending Dr: Copies to: Ragini Aguilar [...] Erik Larson M.D.08/30/2022 3:47 PM Dictation Location: [place] [address] Transcribed By: [facility] 08/30/22 1547 Dictated By: Erik Larson DO 08/30/22 1535 Signed By: 08/30/22 1547 Normal [facility] Complete Blood Count Auto Di ffon 08-30-2022 Basophils (Bld) [#/Vol] 0.1 10*3/uL Normal 0.0-0.2 [facility] Comment on above: Result Comment: PERF ORMED BY: [facility] [address] [place] [address] PATHOLOGIST CANE CUTTER BRANDEN WHATLEY M.D. Performed By: #### G LULS #### Point of Care testing , Basophils/100 WBC (Bld) 1.0 % Normal . [facility] Comment on above: Performed By: #### G LULS #### Point of Care testing , Eosinophils (Bld) [#/Vol] 0.4 10*3/uL Normal 0.0-0.45 [facility] Comment on above: Performed By: #### G LULS #### Point of Care testing , Eosinophils/100 WBC (Bld) 4.9 % Normal . [facility] Comment on above: Performed By: #### G LULS #### Point of Care testing , Erythrocyte distribution width (RBC) [Ratio] 14.7 % Normal 12.0-14.8 [facility] Comment on above: Performed By: #### Young FRANK #### Point of Care testing , Hematocrit (Bld) [Volume fraction] 24.2 % Low 38.8-50.0 [facility] Comment on above: Performed By: #### G SUSIELS #### Point of Care testing , Hemoglobin (Bld) [Mass/Vol] 8.0 g/dL Low 13.0-17.0 [facility] Comment on above: Performed By: #### G ZAC #### Point of Care testing , Lymphocytes (Bld) [#/Vol] 1.0 10*3/uL Normal 1.00-4.8 [facility] Comment on above: Performed By: #### G ZAC #### Point of Care testing , Lymphocytes/100 WBC (Bld) 13.4 % Normal . [facility] Comment on above: Performed By: #### Young FRANK #### Point of Care testing , MCH (RBC) [Entitic mass] 29.4 pg Normal 27.5-35.2 [facility] Comment on above: Performed By: #### Young FRANK #### Point of Care testing , MCV (RBC) [Entitic vol] 88.5 fL Normal 83.5-101 [facility] Comment on above: Performed By: #### G SUSIELS #### Point of Care testing , Mean Corpuscular HGB Conc 33.2 g/dL Normal 32.5-35.6 [facility] Comment on above: Performed By: #### G SUSIELS #### Point of Care testing , Monocytes (Bld) [#/Vol] 0.8 10*3/uL Normal 0.0-0.8 [facility] Comment on above: Performed By: #### G SUSIELS #### Point of Care testing , Monocytes/100 WBC (Bld) 16.70 % Normal 0.00-20.00 [facility] Comment on above: Performed By: #### Young FRANK #### Point of Care testing , Monocytes/100 WBC (Bld) 10.1 % Normal . [facility] Comment on above: Performed By: #### Young FRANK #### Point of Care testing , Neutrophils (Bld) [#/Vol] 5.3 10*3/uL Normal 1.8-7.7 [facility] Comment on above: Performed By: #### Young FRANK #### Point of Care testing , Neutrophils/100 WBC (Bld) 70.6 % Normal . [facility] Comment on above: Performed By: #### Young RICHARDSLS #### Point of Care testing , NRBC% 0.1 /100{WBC} Normal 0-0.5 [facility] Comment on above: Performed By: #### Young FRANK #### Point of Care testing , Platelet mean volume (Bld) [Entitic vol] 7.7 fL Normal 6.6-10.1 [facility] Comment on above: Performed By: #### Young FRANK #### Point of Care testing , Platelets (Bld) [#/Vol] 181 10*3/uL Normal 150-450 [facility] Comment on above: Performed By: #### Young FRANK #### Point of Care testing , RBC (Bld) [#/Vol] 2.73 10*6/uL Low 3.90-5.60 [facility] Comment on above: Performed By: #### Young FRANK #### Point of Care testing , WBC (Bld) [#/Vol] 7.4 10*3/uL Normal 4.1-10.5 [facility] Comment on above: Performed By: #### Young RICHARDSLS #### Point of Care testing , Comprehensive Metabolic Pane real 08-30-2022 Albumin [Mass/Vol] 2.9 g/dL Low 3.5-5.7 [facility] Comment on above: Performed By: #### Young FRANK #### Point of Care testing , Albumin/Globulin [Mass ratio] 0.8 {ratio} Normal [facility] Comment on above: Performed By: #### Young FRANK #### Point of Care testing , ALP [Catalytic activity/Vol] 105 U/L High 34-104 [facility] Comment on above: Performed By: #### G SUSIELS #### Point of Care testing , ALT [Catalytic activity/Vol] 31 U/L Normal 7-52 [facility] Comment on above: Performed By: #### G LULS #### Point of Care testing , Anion gap [Moles/Vol] 14.3 mmol/L Normal 6.0-15.0 [facility] Comment on above: Performed By: #### G LULS #### Point of Care testing , AST [Catalytic activity/Vol] 14 U/L Normal 13-39 [facility] Comment on above: Performed By: #### G SUSIELS #### Point of Care testing , Bilirubin [Mass/Vol] 0.3 mg/dL Normal 0.3-1.0 [facility] Comment on above: Performed By: #### G SUSIELS #### Point of Care testing , Calcium [Mass/Vol] 8.9 mg/dL Normal 8.6-10.3 [facility] Comment on above: Performed By: #### G SUSIELS #### Point of Care testing , Chloride [Moles/Vol] 110 mmol/L High 98-107 [facility] Comment on above: Performed By: #### G SUSIELS #### Point of Care testing , CO2 [Moles/Vol] 17.6 mmol/L Low 21.0-31.0 [facility] Comment on above: Performed By: #### G SUSIELS #### Point of Care testing , Creatinine [Mass/Vol] 6.18 mg/dL High 0.70-1.30 [facility] Comment on above: Performed By: #### G SUSIELS #### Point of Care testing , Creatinine Clr Calc Pharmacy 16.08 [facility] Comment on above: Result Comment: PERF ORMED BY: [facility] [address] [address] PATHOLOGIST CANE CUTTER BRANDEN WHATLEY M.D. Performed By: #### G SUSIELS #### Point of Care testing , GFR/1.73 sq M.predicted MDRD (S/P/Bld) [Vol rate/Area] 9.045 mL/min/{1.73_m2} [facility] Comment on above: Performed By: #### G SUSIELS #### Point of Care testing , Globulin (S) [Mass/Vol] 3.5 g/dL Normal [facility] Comment on above: Performed By: #### G LULS #### Point of Care testing , Glucose [Mass/Vol] 105 mg/dL High 70-100 [facility] Comment on above: Result Comment: [facility] Glucose Reference Range is dependent on time and content of last meal. Glucose of more than 200 mg/dL in a nonstressed, ambulatory subject supports the diagnosis of Diabetes Mellitus. ADA recommended reference range Performed By: #### G SUSIELS #### Point of Care testing , Potassium [Moles/Vol] 4.9 mmol/L Normal 3.5-5.1 [facility] Comment on above: Performed By: #### G SUSIELS #### Point of Care testing , Protein [Mass/Vol] 6.4 g/dL Normal 6.4-8.9 [facility] Comment on above: Performed By: #### G SUSIELS #### Point of Care testing , Sodium [Moles/Vol] 137 mmol/L Normal 136-145 [facility] Comment on above: Performed By: #### G SUSIELS #### Point of Care testing , Urea nitrogen [Mass/Vol] 84 mg/dL High 7-25 [facility] Comment on above: Performed By: #### G SUSIELS #### Point of Care testing , Dipstick and Microscopicon 0 08-30-2022 Appearance (U) Turbid Critically abnormal Clear [facility] Comment on above: Order Comment: Name Collection Type:: Wooten Catheter Performed By: #### F E and TIBC, [id number], ODALIS #### [facility] [address] Bacteria,Urine 2+ High None Seen [facility] Comment on above: Order Comment: Name Collection Type:: Wooten Catheter Performed By: #### F E and TIBC, [id number], ODALIS #### [facility] [address] [place] [address] [place] Bilirubin,Urine Negative Normal Negative [facility] Comment on above: Order Comment: Name Collection Type:: Wooten Catheter Performed By: #### F E and TIBC, [id number], ODALIS #### [address] Color (U) Yellow Normal Yellow [facility] Comment on above: Order Comment: Name Collection Type:: Wooten Catheter Performed By: #### F E and TIBC, [id number], ODALIS #### [address] Glucose Ql (U) 100 mg/dL High Normal [facility] Comment on above: Order Comment: Name Collection Type:: Wooten Catheter Performed By: #### F E and TIBC, [id number], ODALIS #### [address] Hyaline Casts,Urine None Seen Normal 0-1 [facility] Comment on above: Order Comment: Name Collection Type:: Wooten Catheter Performed By: #### F E and TIBC, [id number], ODALIS #### [address] Ketones Ql (U) Negative Normal Negative [facility] Comment on above: Order Comment: Name Collection Type:: Wooten Catheter Performed By: #### F E and TIBC, [id number], ODALIS #### [address] Leukocyte esterase Test strip Ql (U) 4+ High Negative [facility] Comment on above: Order Comment: Name Collection Type:: Wooten Catheter Performed By: #### F E and TIBC, [id number], ODALIS #### [place] [address] [place] Nitrite,Urine Positive High Negative [facility] Comment on above: Order Comment: Name Collection Type:: Wooten Catheter Performed By: #### F E and TIBC, [id number], ODALIS #### [address] Occult Blood,Urine 3+ High Negative [facility] Comment on above: Order Comment: Name Collection Type:: Wooten Catheter Result Comment: PERF ORMED BY: [place] [address] PATHOLOGIST CANE CUTTER BRANDEN WHATLEY M.D. Performed By: #### F E and TIBC, [id number], ODALIS #### [address] Other Casts,Urine None Seen Normal None Seen [facility] Comment on above: Order Comment: Name Collection Type:: Wooten Catheter Performed By: #### F E and TIBC, [id number], ODALIS #### [address] pH (U) 6.0 [pH] Normal 5.0-9.0 [facility] Comment on above: Order Comment: Name Collection Type:: Wooten Catheter Performed By: #### F E and TIBC, [id number], ODALIS #### [address] Protein (U) [Mass/Vol] 100 mg/dL High Negative [facility] Comment on above: Order Comment: Name Collection Type:: Wooten Catheter Performed By: #### F E and TIBC, [id number], ODALIS #### [place] [address] [place] RBC,Urine 3-4 Normal 0-4 [facility] Comment on above: Order Comment: Name Collection Type:: Wooten Catheter Performed By: #### F E and TIBC, [id number], ODALIS #### [place] [address] [place] Specificy [place],Urine 1.011 Normal 1.001-1.030 [facility] Comment on above: Order Comment: Name Collection Type:: Wooten Catheter Performed By: #### F E and TIBC, [id number], ODALIS #### [address] [place] [address] [place] Squamous Epithelial Cell,Urine 1-2 Normal 0-2 [facility] Comment on above: Order Comment: Name Collection Type:: Wooten Catheter Performed By: #### F E and TIBC, [id number], ODALIS #### [facility] [address] Urobilinogen,Urine Normal Normal Normal [facility] Comment on above: Order Comment: Name Collection Type:: Wooten Catheter Performed By: #### F E and TIBC, [id number], ODALIS #### [address] WBC,Urine Innumerable High 0-4 [facility] Comment on above: Order Comment: Name Collection Type:: Wotoen Catheter Performed By: #### F E and TIBC, [id number], ODALIS #### [address] Yeast,Urine 2+ Critically abnormal None Seen [facility] Comment on above: Order Comment: Name Collection Type:: Wooten Catheter Result Comment: PERF ORMED BY: [place] [address] PATHOLOGIST CANE CUTTER BRANDEN WHATLEY M.D. Performed By: #### F E and TIBC, [id number], ODALIS #### [address] Glucose Poct Glucometerson 0 08-30-2022 Glucose [Mass/Vol] 148 mg/dL Normal [facility] Comment on above: Result Comment: [facility] Glucose Reference Range is dependent on time and content of last meal. Glucose of more than 200 mg/dL in a nonstressed, ambulatory subject supports the diagnosis of Diabetes Mellitus. PERFORMED BY: [address] [place] [address] PATHOLOGIST CANE CUTTER BRANDEN WHATLEY M.D. Performed By: #### G LULS #### Point of Care testing , Glucose [Mass/Vol] 100 mg/dL Normal [facility] Comment on above: Result Comment: [facility] Glucose Reference Range is dependent on time and content of last meal. Glucose of more than 200 mg/dL in a nonstressed, ambulatory subject supports the diagnosis of Diabetes Mellitus. PERFORMED BY: [place] [address] PATHOLOGIST CANE CUTTER BRANDEN WHATLEY M.D. Performed By: #### F E and TIBC [id number], ODALIS #### [facility] [address] [place] [address] Urine Cultureon 08-30-2022 Bacteria identified Cx Nom (U) ORGANISM: Pseudomonas aeruginosa (O:PSEAER) [place] Count 30,000 Aerobic RONI Charge (NMIC56) ---- [...] RESISTANT TO ALL B-LACTAM DRUGS. PERFORMED BY: [place] [address] PATHOLOGIST CANE CUTTER BRANDEN WHATLEY M.D. Normal [facility] Comment on above: Performed By: #### F E and TIBC, [id number], ODALIS #### [place] [id number] [facility] PRBC LEUKOREDUCEDon 07-19-19 23 PRBC LEUKOREDUCED Cross Match Result Compatible Unit Blood Type O Neg Unit Number [id number] Status Information Transfused Product ID Red Blood Cells Product Code [id number] [facility] Comment on above: Performed By: #### P OCGLUC #### [facility] [address] [place] [address] Dr. Dk Mahoney PRBC LEUKOREDUCED Cross Match Result Compatible Unit Blood Type O Neg Unit Number [id number] Status Information Transfused Product ID Red Blood Cells Product Code [id number] [facility] Comment on above: Performed By: #### P OCGLUC #### [facility] [address] [place] [address] Dr. Dk Mahoney CULTURE URINEon 07-09-2022 CULTURE [...] R F Levofloxacin >=8 R F Normal [facility] Comment on above: Performed By: #### P OCGLUC #### [facility] [address] [place] [address] Dr. Dk Mahoney PROTEIN ELECTROPHERESISon Albumin [Mass/Vol] 2.7 g/dL Critically low 2.9-4.4 [facility] Comment on above: Performed By: #### M G, CMP, PHOS #### [facility] [address] [place] [address] [address] Dk Mahoney Albumin/Globulin [Mass ratio] 0.9 {ratio} Normal 0.7-1.7 [facility] Comment on above: Performed By: #### M G, CMP, PHOS #### [facility] [address] [place] [address] [address] Dk Mahoney Lhhqe-0-Zryzoeei 0.2 g/dL Normal 0.0-0.4 [facility] Comment on above: Performed By: #### M G, CMP, PHOS #### [facility] [address] [place] [address] [address] Dk Mahoney Qoprc-9-Cwdjcroe 0.8 g/dL Normal 0.4-1.0 [facility] Comment on above: Performed By: #### M G, CMP, PHOS #### [facility] [address] [place] [address] Dr. Dk Mahoney Beta Globulin 1.0 g/dL Normal 0.7-1.3 [facility] Comment on above: Performed By: #### M G, CMP, PHOS #### [facility] [address] [place] [address] [address] Dk Mahoney Gamma Globulin 1.1 g/dL Normal 0.4-1.8 [facility] Comment on above: Performed By: #### M G, CMP, PHOS #### [facility] [address] [place] [address] [address] Dk Mahoney Globulin (S) [Mass/Vol] 3.1 g/dL Normal 2.2-3.9 [facility] Comment on above: Performed By: #### M G, CMP, PHOS #### [facility] [address] [place] [address] [address] Dk Mahoney M-Primitivo Comment: Normal Not Observed [facility] Comment on above: Result Comment: SPE shows an asymmetrical gamma. Performed By: #### M G, CMP, PHOS #### [facility] [address] [place] [address] [address] Dk Mahoney PDF . Normal [facility] Comment on above: Performed By: #### M G, CMP, PHOS #### [facility] [address] [place] [address] [address] Dk Mahoney Please note: Comment Normal [facility] Comment on above: Result Comment: Prot ein electrophoresis scan will follow via computer, mail, or field education coordinator delivery. Performed By: #### M G, CMP, PHOS #### [facility] [address] [place] [address] [address] Dk Mahoney Protein [Mass/Vol] 5.8 g/dL Critically low 6.0-8.5 [facility] Comment on above: Performed By: #### M G, CMP, PHOS #### [facility] [address] [place] [address] Dr. Dk Mahoney PROTEIN ELECTROPHERESIS URIN E RANDOMon 07-09-2022 Albumin, U 23.2 % Normal [facility] Comment on above: Performed By: #### M G, CMP, PHOS #### [facility] [address] [place] [address] Dr. Dk Mahoney Alpha-1 Globulin U 3.6 % Normal [facility] Comment on above: Performed By: #### M G, CMP, PHOS #### [facility] [address] [place] [address] Dr. Dk Mahoney Alpha-2 Glubulin U 19.7 % Normal [facility] Comment on above: Performed By: #### M G, CMP, PHOS #### [facility] [address] [place] [address] [address] Dk Mahoney Beta Globulin, U 31.4 % Normal [facility] Comment on above: Performed By: #### M G, CMP, PHOS #### [facility] [address] [place] [address] Dr. Dk Mahoney Gamma Globulin U 22.1 % Normal [facility] Comment on above: Performed By: #### M G, CMP, PHOS #### [facility] [address] [place] [address] [address] Dk Mahoney M-Primitivo, % Comment: Normal Not Observed [facility] Comment on above: Result Comment: UPE shows an asymmetrical beta. Performed By: #### M G, CMP, PHOS #### [facility] [address] [place] [address] Dr. Dk Mahoney PDF . Normal [facility] Comment on above: Performed By: #### M G, CMP, PHOS #### [facility] [address] [place] [address] Dr. Dk Mahoney Please note: Comment Normal [facility] Comment on above: Result Comment: Prot ein electrophoresis scan will follow via computer, mail, or field education coordinator delivery. Performed By: #### M G, CMP, PHOS #### [facility] [address] [place] [address] Dr. Dk Mahoney Protein (U) [Mass/Vol] 34.7 mg/dL Normal Not Estab. [facility] Comment on above: Performed By: #### M G, CMP, PHOS #### [facility] [address] [place] [address] Dr. Dk Mahoney CBC AUTO DIFFon 07-07-2022 BASO # 0.1 103/ul Normal 0.0-0.1 [facility] Comment on above: Performed By: #### M G, CMP, PHOS #### [facility] [address] [place] [address] Dr. Dk Mahoney Basophils/100 WBC (Bld) 0.9 % Normal 0.2-2.0 [facility] Comment on above: Performed By: #### M G, CMP, PHOS #### [facility] [address] [place] [address] Dr. Dk Mahoney EO # 0.2 103/ul Normal 0.0-0.7 [facility] Comment on above: Performed By: #### M G, CMP, PHOS #### [facility] [address] [place] [address] Dr. Dk Mahoney Eosinophils/100 WBC (Bld) 2.9 % Normal 0.9-7.0 [facility] Comment on above: Performed By: #### M G, CMP, PHOS #### [facility] [address] [place] [address] Dr. Dk Mahoney Erythrocyte distribution width (RBC) [Ratio] 15.0 % Normal 11.0-15.0 [facility] Comment on above: Performed By: #### M G, CMP, PHOS #### [facility] [address] [place] [address] Dr. Dk Mahoney Hematocrit (Bld) [Volume fraction] 24.4 % Critically low 42.0-54.0 [facility] Comment on above: Performed By: #### M G, CMP, PHOS #### [facility] [address] [place] [address] Dr. Dk Mahoney Hemoglobin (Bld) [Mass/Vol] 7.8 g/dL Critically low 14.0-18.0 [facility] Comment on above: Performed By: #### M G, CMP, PHOS #### [facility] [address] [place] [address] Dr. Dk Mahoney IG # 0.07 10e3/ul Critically high 0.00-0.03 [facility] Comment on above: Performed By: #### M G, CMP, PHOS #### [facility] [address] [place] [address] Dr. Dk Mahoney IG % 1.1 % Critically high 0.0-0.5 [facility] Comment on above: Performed By: #### M G, CMP, PHOS #### [facility] [address] [place] [address] Dr. Dk Mahoney LYMPH # 1.0 103/ul Critically low 1.2-3.8 [facility] Comment on above: Performed By: #### M G, CMP, PHOS #### [facility] [address] [place] [address] Dr. Dk Mahoney Lymphocytes/100 WBC (Bld) 15.4 % Critically low 20.5-60.0 [facility] Comment on above: Performed By: #### M G, CMP, PHOS #### [facility] [address] [place] [address] Dr. Dk Mahoney MANUAL DIFF REQ NO Normal [facility] Comment on above: Performed By: #### M G, CMP, PHOS #### [facility] [address] [place] [address] Dr. Dk Mahoney MCH (RBC) [Entitic mass] 29.3 pg Normal 25.9-34.0 [facility] Comment on above: Performed By: #### M G, CMP, PHOS #### [facility] [address] [place] [address] Dr. Dk Mahoney MCHC (RBC) [Mass/Vol] 32.0 g/dL Normal 29.9-35.2 [facility] Comment on above: Performed By: #### M G, CMP, PHOS #### [facility] [facility] [address] [place] [address] Dr. Dk Mahoney MCV (RBC) [Entitic vol] 91.7 fL Normal 80.0-94.0 [facility] Comment on above: Performed By: #### M G, CMP, PHOS #### [facility] [address] [place] [address] Dr. Dk Mahoney MONO # 0.6 103/ul Normal 0.3-0.8 [facility] Comment on above: Performed By: #### M G, CMP, PHOS #### [facility] [address] [place] [address] Dr. Dk Mahoney Monocytes/100 WBC (Bld) 9.2 % Normal 1.7-12.0 [facility] Comment on above: Performed By: #### M G, CMP, PHOS #### [facility] [address] [place] [address] Dr. Dk Mahoney NEUT # 4.6 103/ul Normal 1.4-6.5 [facility] Comment on above: Performed By: #### M G, CMP, PHOS #### [facility] [address] [place] [address] Dr. Dk Mahoney Neutrophils/100 WBC (Bld) 70.5 % Normal 43.0-75.0 [facility] Comment on above: Performed By: #### M G, CMP, PHOS #### [facility] [address] [address] [address] Dk Mahoney Platelet mean volume (Bld) [Entitic vol] 10.1 fL Normal 9.5-13.5 [facility] Comment on above: Performed By: #### M G, CMP, PHOS #### [facility] [address] [address] [address] Dk Mahoney PLT 172 103/ul Normal 150-450 [facility] Comment on above: Performed By: #### M G, CMP, PHOS #### [facility] [address] [place] [address] Dr. Dk Mahoney RBC 2.66 106/ul Critically low 4.70-6.10 [facility] Comment on above: Performed By: #### M Young, CMP, PHOS #### [facility] [address] [place] [address] Dr. Dk Mahoney WBC 6.5 103/ul Normal 4.0-11.0 [facility] Comment on above: Performed By: #### M Young, CMP, PHOS #### [facility] [address] [place] [address] Dr. Dk Mahoney MAGNESIUMon 07-07-2022 Magnesium [Mass/Vol] 1.4 mg/dL Critically low 1.8-2.4 [facility] Comment on above: Performed By: #### M Young, CMP, PHOS #### [facility] [address] [place] [address] Dr. Dk Mahoney PHOSPHORUSon 07-07-2022 Phosphate [Mass/Vol] 5.9 mg/dL Critically high 2.6-4.7 [facility] Comment on above: Performed By: #### M Young, CMP, PHOS #### [facility] [address] [place] [address] Dr. Dk Mahoney POINT OF CARE GLUCOSEon 06-13 Glucose [Mass/Vol] 121 mg/dL Critically high 74-106 [facility] Comment on above: Performed By: #### M G, CMP, PHOS #### [facility] [address] [address] [address] Dk Mahoney PROF 14(COMP METB)on 023 Albumin [Mass/Vol] 2.4 g/dL Critically low 3.4-5.0 [facility] Comment on above: Performed By: #### M G, CMP, PHOS #### [facility] [address] [address] [address] Dk Mahoney Albumin/Globulin [Mass ratio] 0.6 {ratio} Normal [facility] Comment on above: Performed By: #### M G, CMP, PHOS #### [facility] [address] [address] [address] Dk Mahoney ALP [Catalytic activity/Vol] 128 U/L Critically high 46-116 [facility] Comment on above: Performed By: #### M G, CMP, PHOS #### [facility] [address] [address] [address] Dk Mahoney ALT [Catalytic activity/Vol] 49 U/L Normal 16-63 [facility] Comment on above: Performed By: #### M G, CMP, PHOS #### [facility] [address] [address] [address] Dk Mahoney Anion gap [Moles/Vol] 16.3 mmol/L Normal [facility] Comment on above: Performed By: #### M G, CMP, PHOS #### [facility] [address] [address] [address] Dk Mahoney AST [Catalytic activity/Vol] 17 U/L Normal 15-37 [facility] Comment on above: Performed By: #### M G, CMP, PHOS #### [facility] [address] [address] [address] Dk Mahoney Bilirubin [Mass/Vol] 0.3 mg/dL Normal 0.2-1.0 [facility] Comment on above: Performed By: #### M G, CMP, PHOS #### [facility] [address] [address] [address] Dk Mahoney Calcium [Mass/Vol] 9.2 mg/dL Normal 8.5-10.1 [facility] Comment on above: Performed By: #### M Young CMP, PHOS #### [facility] [address] [place] [address] Dr. Dk Mahoney Chloride [Moles/Vol] 105 mmol/L Normal 98-107 [facility] Comment on above: Performed By: #### M Young CMP, PHOS #### [facility] [address] [place] [address] Dr. Dk Mahoney CO2 [Moles/Vol] 20.3 mmol/L Critically low 21.0-32.0 [facility] Comment on above: Performed By: #### M Young CMP, PHOS #### [facility] [address] [place] [address] Dr. Dk Mahoney Creatinine [Mass/Vol] 5.59 mg/dL Critically high 0.70-1.30 [facility] Comment on above: Performed By: #### Rosmery Vidal CMP, PHOS #### [facility] [address] [place] [address] Dr. Dk Mahoney EGFR-AF ALBANIAN 12 mL/min/1.73m2 Critically low >=60 [facility] Comment on above: Performed By: #### Rosmery Vidal CMP, PHOS #### [facility] [address] [place] [address] Dr. Dk Mahoney EGFR-NON AF ALBANIAN 10 mL/min/1.73m2 Critically low >=60 [facility] Comment on above: Performed By: #### Rosmery Vidal CMP, PHOS #### [facility] [address] [place] [address] Dr. Dk Mahoney Globulin (S) [Mass/Vol] 3.7 g/dL Normal [facility] Comment on above: Performed By: #### M Young CMP, PHOS #### [facility] [address] [place] [address] Dr. Dk Mahoney Glucose [Mass/Vol] 191 mg/dL Critically high 74-106 [facility] Comment on above: Performed By: #### M Young CMP, PHOS #### [facility] [address] [place] [address] Dr. Dk Mahoney Potassium [Moles/Vol] 4.5 mmol/L Normal 3.5-5.1 [facility] Comment on above: Performed By: #### M G, CMP, PHOS #### [facility] [address] [place] [address] Dr. Dk Mahoney Protein [Mass/Vol] 6.1 g/dL Critically low 6.4-8.2 [facility] Comment on above: Performed By: #### M G, CMP, PHOS #### [facility] [address] [place] [address] Dr. Dk Mahoney Sodium [Moles/Vol] 137 mmol/L Normal 136-145 [facility] Comment on above: Performed By: #### M G, CMP, PHOS #### [facility] [address] [place] [address] Dr. Dk Mahoney Urea nitrogen [Mass/Vol] 83.0 mg/dL Critically high 7.0-18.0 [facility] Comment on above: Performed By: #### M G, CMP, PHOS #### [facility] [address] [place] [address] Dr. Dk Mahoney Urea nitrogen/Creatinine [Mass ratio] 14.8 mg/mg Normal [facility] Comment on above: Performed By: #### M G, CMP, PHOS #### [facility] [address] [place] [address] Dr. Dk Mahoney CBC AUTO DIFFon 07-06-2022 BASO # 0.1 103/ul Normal 0.0-0.1 [facility] Comment on above: Performed By: #### M G, CMP, PHOS #### [facility] [address] [place] [address] Dr. Dk Mahoney Basophils/100 WBC (Bld) 0.9 % Normal 0.2-2.0 [facility] Comment on above: Performed By: #### M G, CMP, PHOS #### [facility] [address] [place] [address] Dr. Dk Mahoney EO # 0.2 103/ul Normal 0.0-0.7 [facility] Comment on above: Performed By: #### M SHIREEN Vidal, PHOS #### [facility] [address] [place] [address] Dr. Dk Mahoney Eosinophils/100 WBC (Bld) 2.9 % Normal 0.9-7.0 [facility] Comment on above: Performed By: #### M Young CMP, PHOS #### [facility] [address] [place] [address] Dr. Dk Mahoney Erythrocyte distribution width (RBC) [Ratio] 15.0 % Normal 11.0-15.0 [facility] Comment on above: Performed By: #### M Young CMP, PHOS #### [facility] [address] [place] [address] Dr. Dk Mahoney Hematocrit (Bld) [Volume fraction] 24.2 % Critically low 42.0-54.0 [facility] Comment on above: Performed By: #### M SHIREEN Vidal, PHOS #### [facility] [address] [place] [address] Dr. Dk Mahoney Hemoglobin (Bld) [Mass/Vol] 8.0 g/dL Critically low 14.0-18.0 [facility] Comment on above: Performed By: #### M Young CMP, PHOS #### [facility] [address] [place] [address] Dr. Dk Mahoney IG # 0.06 10e3/ul Critically high 0.00-0.03 [facility] Comment on above: Performed By: #### M G, CMP, PHOS #### [facility] [address] [place] [address] Dr. Dk Mahoney IG % 0.9 % Critically high 0.0-0.5 [facility] Comment on above: Performed By: #### M G, CMP, PHOS #### [facility] [address] [place] [address] Dr. Dk Mahoney LYMPH # 1.0 103/ul Critically low 1.2-3.8 [facility] Comment on above: Performed By: #### M G, CMP, PHOS #### [facility] [address] [place] [address] Dr. Dk Mahoney Lymphocytes/100 WBC (Bld) 14.6 % Critically low 20.5-60.0 [facility] Comment on above: Performed By: #### M G, CMP, PHOS #### [facility] [address] [place] [address] Dr. Dk Mahoney MANUAL DIFF REQ NO Normal [facility] Comment on above: Performed By: #### M G, CMP, PHOS #### [facility] [address] [place] [address] Dr. Dk Mahoney MCH (RBC) [Entitic mass] 30.4 pg Normal 25.9-34.0 [facility] Comment on above: Performed By: #### M G, CMP, PHOS #### [facility] [address] [place] [address] Dr. Dk Mahoney MCHC (RBC) [Mass/Vol] 33.1 g/dL Normal 29.9-35.2 [facility] Comment on above: Performed By: #### M G, CMP, PHOS #### [facility] [address] [place] [address] Dr. Dk Mahoney MCV (RBC) [Entitic vol] 92.0 fL Normal 80.0-94.0 [facility] Comment on above: Performed By: #### M G, CMP, PHOS #### [facility] [address] [place] [address] Dr. Dk Mahoney MONO # 0.7 103/ul Normal 0.3-0.8 [facility] Comment on above: Performed By: #### M G, CMP, PHOS #### [facility] [address] [place] [address] Dr. Dk Mahoney Monocytes/100 WBC (Bld) 11.1 % Normal 1.7-12.0 [facility] Comment on above: Performed By: #### M G, CMP, PHOS #### [facility] [address] [place] [address] Dr. Dk Mahoney NEUT # 4.5 103/ul Normal 1.4-6.5 [facility] Comment on above: Performed By: #### M Young CMP, PHOS #### [facility] [address] [address] [address] Dk Mahoney Neutrophils/100 WBC (Bld) 69.6 % Normal 43.0-75.0 [facility] Comment on above: Performed By: #### M Young CMP, PHOS #### [facility] [address] [place] [address] Dr. Dk Mahoney Platelet mean volume (Bld) [Entitic vol] 9.4 fL Critically low 9.5-13.5 [facility] Comment on above: Performed By: #### M Young CMP, PHOS #### [facility] [address] [place] [address] Dr. Dk Mahoney PLT 159 103/ul Normal 150-450 [facility] Comment on above: Performed By: #### Rosmery Vidal CMP, PHOS #### [facility] [address] [place] [address] Dr. Dk Mahoney RBC 2.63 106/ul Critically low 4.70-6.10 [facility] Comment on above: Performed By: #### M Young CMP, PHOS #### [facility] [address] [place] [address] Dr. Dk Mahoney WBC 6.5 103/ul Normal 4.0-11.0 [facility] Comment on above: Performed By: #### M Young CMP, PHOS #### [facility] [address] [place] [address] Dr. Dk Mahoney BASO # 0.0 103/ul Normal 0.0-0.1 [facility] Comment on above: Performed By: #### C BC #### [facility] [address] [place] [address] Dr. Dk Mahoney Basophils/100 WBC (Bld) 0.6 % Normal 0.2-2.0 [facility] Comment on above: Performed By: #### C BC #### [facility] [address] [address] [address] Dk Mahoney EO # 0.2 103/ul Normal 0.0-0.7 [facility] Comment on above: Performed By: #### C BC #### [facility] [address] [address] [address] Dk Mahoney Eosinophils/100 WBC (Bld) 3.2 % Normal 0.9-7.0 [facility] Comment on above: Performed By: #### C BC #### [facility] [address] [place] [address] Dr. Dk Mahoney Erythrocyte distribution width (RBC) [Ratio] 15.2 % Critically high 11.0-15.0 [facility] Comment on above: Performed By: #### C BC #### [facility] [address] [place] [address] Dr. Dk Mahoney Hematocrit (Bld) [Volume fraction] 21.4 % Critically low 42.0-54.0 [facility] Comment on above: Performed By: #### C BC #### [facility] [address] [place] [address] Dr. Dk Mahoney Hemoglobin (Bld) [Mass/Vol] 6.9 g/dL Critically low 14.0-18.0 [facility] Comment on above: Performed By: #### C BC #### [facility] [address] [place] [address] Dr. Dk Mahoney IG # 0.05 10e3/ul Critically high 0.00-0.03 [facility] Comment on above: Performed By: #### C BC #### [facility] [address] [place] [address] Dr. Dk Mahoney IG % 0.8 % Critically high 0.0-0.5 [facility] Comment on above: Performed By: #### C BC #### [facility] [address] [place] [address] Dr. Dk Mahoney LYMPH # 0.9 103/ul Critically low 1.2-3.8 [facility] Comment on above: Performed By: #### C BC #### [facility] [address] [place] [address] Dr. Dk Mahoney Lymphocytes/100 WBC (Bld) 13.8 % Critically low 20.5-60.0 [facility] Comment on above: Performed By: #### C BC #### [facility] [address] [place] [address] Dr. Dk Mahoney MANUAL DIFF REQ NO Normal [facility] Comment on above: Performed By: #### C BC #### [facility] [address] [place] [address] Dr. Dk Mahoney MCH (RBC) [Entitic mass] 29.9 pg Normal 25.9-34.0 [facility] Comment on above: Performed By: #### C BC #### [facility] [address] [place] [address] Dr. Dk Mahoney MCHC (RBC) [Mass/Vol] 32.2 g/dL Normal 29.9-35.2 [facility] Comment on above: Performed By: #### C BC #### [facility] [address] [place] [address] Dr. Dk Mahoney MCV (RBC) [Entitic vol] 92.6 fL Normal 80.0-94.0 [facility] Comment on above: Performed By: #### C BC #### [facility] [address] [place] [address] Dr. Dk Mahoney MONO # 0.8 103/ul Normal 0.3-0.8 [facility] Comment on above: Performed By: #### C BC #### [facility] [address] [place] [address] Dr. Dk Mahoney Monocytes/100 WBC (Bld) 11.4 % Normal 1.7-12.0 [facility] Comment on above: Performed By: #### C BC #### [facility] [address] [place] [address] Dr. Dk Mahoney NEUT # 4.6 103/ul Normal 1.4-6.5 [facility] Comment on above: Performed By: #### C BC #### [facility] [address] [place] [address] Dr. Dk Mahoney Neutrophils/100 WBC (Bld) 70.2 % Normal 43.0-75.0 [facility] Comment on above: Performed By: #### C BC #### [facility] [address] [place] [address] Dr. Dk Mahoney Platelet mean volume (Bld) [Entitic vol] 9.6 fL Normal 9.5-13.5 [facility] Comment on above: Performed By: #### C BC #### [facility] [address] [place] [address] Dr. Dk Mahoney PLT 163 103/ul Normal 150-450 [facility] Comment on above: Performed By: #### C BC #### [facility] [address] [place] [address] Dr. Dk Mahoney RBC 2.31 106/ul Critically low 4.70-6.10 [facility] Comment on above: Performed By: #### C BC #### [facility] [address] [place] [address] Dr. Dk Mahoney WBC 6.6 103/ul Normal 4.0-11.0 [facility] Comment on above: Performed By: #### C BC #### [facility] [address] [place] [address] Dr. Dk Mahoney FERRITINon 07-06-2022 Ferritin [Mass/Vol] 538.0 ng/mL Critically high 26.0-388.0 [facility] Comment on above: Performed By: #### M G, CMP, PHOS #### [facility] [address] [place] [address] Dr. Dk Mahoney IRON AND TIBCon 07-06-2022 % SATURATION 29.7 % Normal [facility] Comment on above: Performed By: #### M G, CMP, PHOS #### [facility] [address] [place] [address] Dr. Dk Mahoney Iron [Mass/Vol] 51.0 ug/dL Critically low 65.0-175.0 [facility] Comment on above: Performed By: #### M G, CMP, PHOS #### [facility] [address] [address] [address] Dk Mahoney TIBC DIRECT 172.0 ug/dL Critically low 250.0-450.0 [facility] Comment on above: Performed By: #### Rosmery Vidal CMP, PHOS #### [facility] [address] [address] [address] Dk Mahoney LDHon 07-06-2022 LDH 126 U/L Normal 85-227 [facility] Comment on above: Performed By: #### Rosmery Vidal CMP, PHOS #### [facility] [address] [address] [address] Dk Mahoney MAGNESIUMon 07-06-2022 Magnesium [Mass/Vol] 1.5 mg/dL Critically low 1.8-2.4 [facility] Comment on above: Performed By: #### Rosmery Vidal CMP, PHOS #### [facility] [address] [place] [address] Dr. Dk Mahoney PHOSPHORUSon 07-06-2022 Phosphate [Mass/Vol] 7.8 mg/dL Critically high 2.6-4.7 [facility] Comment on above: Performed By: #### Rosmery Vidal CMP, PHOS #### [facility] [address] [place] [address] Dr. Dk Mahoney POINT OF CARE GLUCOSEon 06-13 Glucose [Mass/Vol] 149 mg/dL Critically high 74-106 [facility] Comment on above: Performed By: #### Rosmery Vidal CMP, PHOS #### [facility] [address] [address] [address] Dk Mahoney Glucose [Mass/Vol] 145 mg/dL Critically high 74-106 [facility] Comment on above: Performed By: #### Rosmery Vidal CMP, PHOS #### [facility] [address] [place] [address] Dr. Dk Mahoney Glucose [Mass/Vol] 112 mg/dL Critically high 74-106 [facility] Comment on above: Performed By: #### Rosmery Vidal CMP, PHOS #### [facility] [address] [place] [address] Dr. Dk Mahoney Glucose [Mass/Vol] 133 mg/dL Critically high 74-106 [facility] Comment on above: Performed By: #### M G, CMP, PHOS #### [facility] [address] [address] [address] Dk Mahoney Glucose [Mass/Vol] 173 mg/dL Critically high 74-106 [facility] Comment on above: Performed By: #### P OCGLUC #### [facility] [address] [address] [address] Dk Mahoney PROF 14(COMP METB)on 023 Albumin [Mass/Vol] 2.4 g/dL Critically low 3.4-5.0 [facility] Comment on above: Performed By: #### M Young, CMP, PHOS #### [facility] [address] [place] [address] Dr. Dk Mahoney Albumin/Globulin [Mass ratio] 0.6 {ratio} Normal [facility] Comment on above: Performed By: #### M G, CMP, PHOS #### [facility] [address] [address] [address] Dk Mahoney ALP [Catalytic activity/Vol] 133 U/L Critically high 46-116 [facility] Comment on above: Performed By: #### M G, CMP, PHOS #### [facility] [address] [place] [address] Dr. Dk Mahoney ALT [Catalytic activity/Vol] 58 U/L Normal 16-63 [facility] Comment on above: Performed By: #### M G, CMP, PHOS #### [facility] [address] [address] [address] Dk Mahoney Anion gap [Moles/Vol] 16.8 mmol/L Normal [facility] Comment on above: Performed By: #### M G, CMP, PHOS #### [facility] [address] [address] [address] Dk Mahoney AST [Catalytic activity/Vol] 20 U/L Normal 15-37 [facility] Comment on above: Performed By: #### M G, CMP, PHOS #### [facility] [address] [place] [address] Dr. Dk Mahoney Bilirubin [Mass/Vol] 0.2 mg/dL Normal 0.2-1.0 [facility] Comment on above: Performed By: #### M G, CMP, PHOS #### [facility] [address] [place] [address] Dr. Dk Mahoeny Calcium [Mass/Vol] 9.0 mg/dL Normal 8.5-10.1 [facility] Comment on above: Performed By: #### M G, CMP, PHOS #### [facility] [address] [place] [address] Dr. Dk Mahoney Chloride [Moles/Vol] 107 mmol/L Normal 98-107 [facility] Comment on above: Performed By: #### M G, CMP, PHOS #### [facility] [address] [place] [address] Dr. Dk Mahoney CO2 [Moles/Vol] 18.2 mmol/L Critically low 21.0-32.0 [facility] Comment on above: Performed By: #### M G, CMP, PHOS #### [facility] [address] [place] [address] Dr. Dk Mahoney Creatinine [Mass/Vol] 5.80 mg/dL Critically high 0.70-1.30 [facility] Comment on above: Performed By: #### M G, CMP, PHOS #### [facility] [address] [place] [address] Dr. Dk Mahoney EGFR-AF ALBANIAN 12 mL/min/1.73m2 Critically low >=60 [facility] [facility] Comment on above: Performed By: #### M G, CMP, PHOS #### [facility] [address] [place] [address] Dr. Dk Mahoney EGFR-NON AF ALBANIAN 10 mL/min/1.73m2 Critically low >=60 [facility] Comment on above: Performed By: #### M G, CMP, PHOS #### [facility] [address] [place] [address] Dr. Dk Mahoney Globulin (S) [Mass/Vol] 3.9 g/dL Normal [facility] Comment on above: Performed By: #### M SHIREEN Vidal, PHOS #### [facility] [address] [address] [address] Dk Mahoney Glucose [Mass/Vol] 108 mg/dL Critically high 74-[address] [facility] Comment on above: Performed By: #### M Young CMP, PHOS #### [facility] [address] [address] [address] Dk Mahoney Potassium [Moles/Vol] 5.0 mmol/L Normal 3.5-5.1 [facility] Comment on above: Performed By: #### M Young CMP, PHOS #### [facility] [address] [place] [address] Dr. Dk Mahoney Protein [Mass/Vol] 6.3 g/dL Critically low 6.4-8.2 [facility] Comment on above: Performed By: #### M Young CMP, PHOS #### [facility] [address] [address] [address] Dk Mahoney Sodium [Moles/Vol] 137 mmol/L Normal 136-145 [facility] Comment on above: Performed By: #### M Young CMP, PHOS #### [facility] [address] [address] [address] Dk Mahoney Urea nitrogen [Mass/Vol] 83.0 mg/dL Critically high 7.0-18.0 [facility] Comment on above: Performed By: #### M Young, CMP, PHOS #### [facility] [address] [address] [address] Dk Mahoney Urea nitrogen/Creatinine [Mass ratio] 14.3 mg/mg Normal [facility] Comment on above: Performed By: #### M Young CMP, PHOS #### [facility] [address] [address] [address] Dk Mahoney RETICULOCYTEon 07-06-2022 RETIC 4.20 % Critically high 0.60-3.10 [facility] Comment on above: Performed By: #### M G, CMP, PHOS #### [facility] [address] [place] [address] Dr. Dk Mahoney TYPE AND SCREENon 07-06-2022 TYPE AND SCREEN Negative Normal [facility] Comment on above: Performed By: #### P OCGLUC #### [facility] [address] [place] [address] Dr. Dk Mahoney URIC ACID SERUMon 07-06-2022 Urate [Mass/Vol] 6.1 mg/dL Normal 3.5-7.2 [facility] Comment on above: Performed By: #### M G, CMP, PHOS #### [facility] [address] [place] [address] Dr. Dk Mahoney VIT B12 AND FOLATEon 023 Cobalamin (Vitamin B12) [Mass/Vol] 686.0 pg/mL Normal 193.0-986.0 [facility] Comment on above: Performed By: #### P OCGLUC #### [facility] [address] [place] [address] Dr. Dk Mahoney FOLATE 15.50 ng/mL Normal 8.60-58.90 [facility] Comment on above: Performed By: #### P OCGLUC #### [facility] [address] [place] [address] Dr. Dk Mahoney CBC AUTO DIFFon 07-05-2022 BASO # 0.1 103/ul Normal 0.0-0.1 [facility] Comment on above: Performed By: #### M G, CMP, PHOS #### [facility] [address] [place] [address] Dr. Dk Mahoney Basophils/100 WBC (Bld) 0.7 % Normal 0.2-2.0 [facility] Comment on above: Performed By: #### M G, CMP, PHOS #### [facility] [address] [place] [address] Dr. Dk Mahoney EO # 0.2 103/ul Normal 0.0-0.7 [facility] Comment on above: Performed By: #### M G, CMP, PHOS #### [facility] [address] [place] [address] Dr. Dk Mahoney Eosinophils/100 WBC (Bld) 3.1 % Normal 0.9-7.0 [facility] Comment on above: Performed By: #### M G, CMP, PHOS #### [facility] [address] [place] [address] Dr. Dk Mahoney Erythrocyte distribution width (RBC) [Ratio] 15.4 % Critically high 11.0-15.0 [facility] Comment on above: Performed By: #### M G, CMP, PHOS #### [facility] [address] [place] [address] Dr. Dk Mahoney Hematocrit (Bld) [Volume fraction] 23.9 % Critically low 42.0-54.0 [facility] Comment on above: Performed By: #### M G, CMP, PHOS #### [facility] [address] [place] [address] Dr. Dk Mahoney Hemoglobin (Bld) [Mass/Vol] 7.7 g/dL Critically low 14.0-18.0 [facility] Comment on above: Performed By: #### M G, CMP, PHOS #### [facility] [address] [place] [address] Dr. Dk Mahoney IG # 0.05 10e3/ul Critically high 0.00-0.03 [facility] Comment on above: Performed By: #### M G, CMP, PHOS #### [facility] [address] [place] [address] Dr. Dk Mahoney IG % 0.7 % Critically high 0.0-0.5 [facility] Comment on above: Performed By: #### M G, CMP, PHOS #### [facility] [address] [place] [address] Dr. Dk Mahoney LYMPH # 1.0 103/ul Critically low 1.2-3.8 [facility] Comment on above: Performed By: #### M G, CMP, PHOS #### [facility] [address] [place] [address] Dr. Dk Mahoney Lymphocytes/100 WBC (Bld) 12.8 % Critically low 20.5-60.0 [facility] Comment on above: Performed By: #### M Young CMP, PHOS #### [facility] [address] [place] [address] Dr. Dk Mahoney MANUAL DIFF REQ NO Normal [facility] Comment on above: Performed By: #### M Young, CMP, PHOS #### [facility] [address] [place] [address] Dr. Dk Mahoney MCH (RBC) [Entitic mass] 30.0 pg Normal 25.9-34.0 [facility] Comment on above: Performed By: #### M Young CMP, PHOS #### [facility] [address] [place] [address] Dr. Dk Mahoney MCHC (RBC) [Mass/Vol] 32.2 g/dL Normal 29.9-35.2 [facility] Comment on above: Performed By: #### M Young CMP, PHOS #### [facility] [address] [place] [address] Dr. Dk Mahoney MCV (RBC) [Entitic vol] 93.0 fL Normal 80.0-94.0 [facility] Comment on above: Performed By: #### M Young CMP, PHOS #### [facility] [address] [place] [address] Dr. Dk Mahoney MONO # 0.8 103/ul Normal 0.3-0.8 [facility] Comment on above: Performed By: #### M G, CMP, PHOS #### [facility] [address] [place] [address] Dr. Dk Mahoney Monocytes/100 WBC (Bld) 10.2 % Normal 1.7-12.0 [facility] Comment on above: Performed By: #### M G, CMP, PHOS #### [facility] [address] [place] [address] Dr. Dk Mahoney NEUT # 5.6 103/ul Normal 1.4-6.5 [facility] Comment on above: Performed By: #### M Young, CMP, PHOS #### [facility] [address] [address] [address] Dk Mahoney Neutrophils/100 WBC (Bld) 72.5 % Normal 43.0-75.0 [facility] Comment on above: Performed By: #### M G, CMP, PHOS #### [facility] [address] [address] [address] Dk Mahoney Platelet mean volume (Bld) [Entitic vol] 9.8 fL Normal 9.5-13.5 [facility] Comment on above: Performed By: #### M G, CMP, PHOS #### [facility] [address] [address] [address] Dk Mahoney PLT 203 103/ul Normal 150-450 [facility] Comment on above: Performed By: #### M G, CMP, PHOS #### [facility] [address] [address] [address] Dk Mahoney RBC 2.57 106/ul Critically low 4.70-6.10 [facility] Comment on above: Performed By: #### M G, CMP, PHOS #### [facility] [address] [address] [address] Dk Mahoney WBC 7.7 103/ul Normal 4.0-11.0 [facility] Comment on above: Performed By: #### M G, CMP, PHOS #### [facility] [address] [place] [address] ABD/PELVIS WO CONon [...] MARQUES AMAYA Date: 2022-07-05 18:21 Normal [facility] Covid-19 PCR ([facility])on 06-13 SARS-CoV-2 (COVID-19) RNA JASON+probe Ql (Unsp spec) Not detected Normal NOT DETECTED [facility] Comment on above: Result Comment: When diagnostic [...] for this test is supported by the [place] of Health and Human Service's declaration that [...] used). Performed By: #### C BC #### [facility] [address] [place] [address] Dr. Dk Mahoney ER URINE PROFILEon 3 Bilirubin Ql (U) Negative Normal NEGATIVE [facility] Comment on above: Performed By: #### M Young CMP, PHOS #### [facility] [address] [place] [address] Dr. Dk Mahoney Clarity (U) CLEAR Normal CLEAR [facility] Comment on above: Performed By: #### M Young CMP, PHOS #### [facility] [address] [place] [address] Dr. Dk Mahoney Color (U) YELLOW Normal YELLOW [facility] Comment on above: Performed By: #### M G CMP, PHOS #### [facility] [address] [place] [address] Dr. Dk Mahoney ERUD A micrscopic examination will be performed if indicated. Normal [facility] Comment on above: Performed By: #### M G, CMP, PHOS #### [facility] [address] [place] [address] Dr. Dk Mahoney Glucose Ql (U) 100 mg/dl Abnormal NEGATIVE [facility] Comment on above: Performed By: #### M G, CMP, PHOS #### [facility] [address] [place] [address] Dr. Dk Mahoney Hemoglobin Ql (U) MODERATE Abnormal NEGATIVE [facility] Comment on above: Performed By: #### M G, CMP, PHOS #### [facility] [address] [address] [address] Dk Mahoney Ketones Ql (U) Negative Normal NEGATIVE [facility] Comment on above: Performed By: #### M G, CMP, PHOS #### [facility] [address] [place] [address] Dr. Dk Mahoney LEUKOCYTES LARGE Abnormal NEGATIVE [facility] Comment on above: Performed By: #### M G, CMP, PHOS #### [facility] [address] [address] [address] Dk Mahoney Nitrite Ql (U) Negative Normal NEGATIVE [facility] Comment on above: Performed By: #### M G, CMP, PHOS #### [facility] [address] [place] [address] Dr. Dk Mahoney pH (U) 7.0 [pH] Normal 5-9 [facility] Comment on above: Performed By: #### M G, CMP, PHOS #### [facility] [address] [place] [address] Dr. Dk Mahoney Protein (U) [Mass/Vol] 30 mg/dL Abnormal NEGATIVE/ TRACE [facility] Comment on above: Performed By: #### M G, CMP, PHOS #### [facility] [address] [place] [address] Dr. Dk Mahoney SPEC GRAVITY 1.010 Normal 1.005-<=1.02 5 [facility] Comment on above: Performed By: #### M G, CMP, PHOS #### [facility] [address] [place] [address] Dr. Dk Mahoney UR MICRO IND INDICATED Normal [facility] Comment on above: Performed By: #### M G, CMP, PHOS #### [facility] [address] [place] [address] Dr. Dk Mahoney Urobilinogen Qn (U) 0.2 {Ramiro'U}/dL Normal 0.2 - 1. 0 [facility] Comment on above: Performed By: #### M G, CMP, PHOS #### [facility] [address] [address] [address] Dk Mahoney PROF 14(COMP METB)on 023 Albumin [Mass/Vol] 2.7 g/dL Critically low 3.4-5.0 [facility] Comment on above: Performed By: #### C BC #### [facility] [address] [place] [address] Dr. Dk Mahoney Albumin/Globulin [Mass ratio] 0.6 {ratio} Normal [facility] Comment on above: Performed By: #### C BC #### [facility] [address] [place] [address] Dr. Dk Mahoney ALP [Catalytic activity/Vol] 148 U/L Critically high 46-116 [facility] Comment on above: Performed By: #### C BC #### [facility] [address] [place] [address] Dr. Dk Mahoney ALT [Catalytic activity/Vol] 70 U/L Critically high 16-63 [facility] Comment on above: Performed By: #### C BC #### [facility] [address] [place] [address] Dr. Dk Mahoney Anion gap [Moles/Vol] 16.7 mmol/L Normal [facility] Comment on above: Performed By: #### C BC #### [facility] [address] [place] [address] Dr. Dk Mahoney AST [Catalytic activity/Vol] 26 U/L Normal 15-37 [facility] Comment on above: Performed By: #### C BC #### [facility] [address] [place] [address] Dr. Dk Mahoney Bilirubin [Mass/Vol] 0.4 mg/dL Normal 0.2-1.0 [facility] Comment on above: Performed By: #### C BC #### [facility] [address] [place] [address] Dr. Dk Mahoney Calcium [Mass/Vol] 9.2 mg/dL Normal 8.5-10.1 [facility] Comment on above: Performed By: #### C BC #### [facility] [address] [address] [address] Dk Mahoney Chloride [Moles/Vol] 105 mmol/L Normal 98-107 [facility] Comment on above: Performed By: #### C BC #### [facility] [address] [address] [address] Dk Mahoney CO2 [Moles/Vol] 18.1 mmol/L Critically low 21.0-32.0 [facility] Comment on above: Performed By: #### C BC #### [facility] [address] [address] [address] Dk Mahoney Creatinine [Mass/Vol] 5.81 mg/dL Critically high 0.70-1.30 [facility] Comment on above: Performed By: #### C BC #### [facility] [address] [address] [address] Dk Mahoney EGFR-AF ALBANIAN 12 mL/min/1.73m2 Critically low >=60 [facility] Comment on above: Performed By: #### C BC #### [facility] [address] [address] [address] Dk Mahoney EGFR-NON AF ALBANIAN 10 mL/min/1.73m2 Critically low >=60 [facility] Comment on above: Performed By: #### C BC #### [facility] [address] [address] [address] Dk Mahoney Globulin (S) [Mass/Vol] 4.3 g/dL Normal [facility] Comment on above: Performed By: #### C BC #### [facility] [address] [address] [address] Dk Mahoney Glucose [Mass/Vol] 138 mg/dL Critically high 74-[address] [facility] Comment on above: Performed By: #### C BC #### [facility] [address] [address] [address] Dk Mahoney Potassium [Moles/Vol] 4.8 mmol/L Normal 3.5-5.1 [facility] Comment on above: Performed By: #### C BC #### [facility] [address] [address] [address] Dk Mahoney Protein [Mass/Vol] 7.0 g/dL Normal 6.4-8.2 [facility] Comment on above: Performed By: #### C BC #### [facility] [address] [address] [address] Dk Mahoney Sodium [Moles/Vol] 135 mmol/L Critically low 136-145 [facility] Comment on above: Performed By: #### C BC #### [facility] [address] [address] [address] Dk Mahoney Urea nitrogen [Mass/Vol] 83.0 mg/dL Critically high 7.0-18.0 [facility] Comment on above: Performed By: #### C BC #### [facility] [address] [address] [address] Dk Mahoney Urea nitrogen/Creatinine [Mass ratio] 14.3 mg/mg Normal [facility] Comment on above: Performed By: #### C BC #### [facility] [address] [address] [address] Dk Mahoney TROPONIN, HIGH SENSITIVITYon 07-05-2022 HSTROP 21.4 pg/mL Normal 4.0-76.1 [facility] Comment on above: Result Comment: CUT- OFF POINTS HAVE BEEN ESTABLISHED BASED ON THE FOURTH UNIVERSAL DEFINITIONS OF MYOCARDIAL INFARCTION. THE UPPER REFERENCE LIMIT (URL) OF TROPONIN, DEFINED THE 99TH PERCENTILE OF cTnI DISTRIBUTION IN A REFERENCE POPULATION, HAS BEEN CONFIRMED THE DECISION THRESHOLD FOR AR DIAGNOSIS. Performed By: #### C BC #### [facility] [address] [address] [address] Dk Mahoney URINE MICROSCOPIC ONLYon BACTERIA MODERATE Abnormal NONE SEEN [facility] Comment on above: Performed By: #### M G, CMP, PHOS #### [facility] [address] [id number] Dk Mahoney Bacteria identified Cx Nom (U) INDICATED Normal [facility] Comment on above: Performed By: #### M G, CMP, PHOS #### [facility] [address] [place] [address] Dr. Dk Mahoney CAST NONE SEEN Normal NONE SEEN [facility] Comment on above: Performed By: #### M G, CMP, PHOS #### [facility] [address] [place] [address] Dr. Dk Mahoney Crystals LM Nom (Urine sed) NONE SEEN Normal NONE SEEN [facility] Comment on above: Performed By: #### M G, CMP, PHOS #### [facility] [address] [place] [address] Dr. Dk Mahoney Epithelial cells LM Ql (Urine sed) FEW Abnormal NONE SEEN /RARE [facility] Comment on above: Performed By: #### M G, CMP, PHOS #### [facility] [address] [place] [address] Dr. Dk Mahoney MUCOUS NONE SEEN Normal NONE SEEN [facility] Comment on above: Performed By: #### M G, CMP, PHOS #### [facility] [address] [place] [address] Dr. Dk Mahoney RBC 10-20 Abnormal 0-2 [facility] Comment on above: Performed By: #### M G, CMP, PHOS #### [facility] [address] [place] [address] Dr. Dk Mahoney WBC 75-100 Abnormal NONE SEEN [facility] Comment on above: Performed By: #### M G, CMP, PHOS #### [facility] [address] [place] [address] Dr. Dk Mahoney YEAST PRESENT Abnormal NONE SEEN [facility] Comment on above: Performed By: #### M G, CMP, PHOS #### [facility] [address] [place] [address] Dr. Dk Mahoney PRBC LEUKOREDUCEDon 05-11-19 23 PRBC LEUKOREDUCED Cross Match Result Compatible Unit Blood Type O Neg Unit Number [id number] Status Information Transfused Product ID Red Blood Cells Product Code [id number] Normal [facility] Comment on above: Performed By: #### P RBC #### [facility] [address] [place] [address] Dr. Dk Mahoney ABO AND RH TYPEon 05-04-2022 ABO and Rh group Nom (Bld) ABO Rh Typing O Rh Negative Normal [facility] Comment on above: Performed By: #### A NOE, TNS #### [facility] [address] [place] [address] Dr. Dk Mahoney BNPon 05-04-2022 Natriuretic peptide B (Bld) [Mass/Vol] 97283.0 pg/mL Critically high <=900.0 [facility] Comment on above: Performed By: #### M G, CMP, PHOS #### [facility] [address] [place] [address] Dr. Dk Mahoney CBC AUTO DIFFon 05-04-2022 BASO # 0.1 103/ul Normal 0.0-0.1 [facility] Comment on above: Performed By: #### M G, CMP, PHOS #### [facility] [address] [place] [address] Dr. Dk Mahoney Basophils/100 WBC (Bld) 0.7 % Normal 0.2-2.0 [facility] Comment on above: Performed By: #### M G, CMP, PHOS #### [facility] [address] [place] [address] Dr. Dk Mahoney EO # 0.3 103/ul Normal 0.0-0.7 [facility] Comment on above: Performed By: #### M G, CMP, PHOS #### [facility] [address] [place] [address] Dr. Dk Mahoney Eosinophils/100 WBC (Bld) 4.4 % Normal 0.9-7.0 [facility] Comment on above: Performed By: #### M G, CMP, PHOS #### [facility] [address] [place] [address] Dr. Dk Mahoney Erythrocyte distribution width (RBC) [Ratio] 15.4 % Critically high 11.0-15.0 [facility] Comment on above: Performed By: #### M G, CMP, PHOS #### [facility] [address] [place] [address] Dr. Dk Mahoney Hematocrit (Bld) [Volume fraction] 21.6 % Critically low 42.0-54.0 [facility] Comment on above: Performed By: #### M SHIREEN Vidal, PHOS #### [facility] [address] [place] [address] Dr. Dk Mahoney Hemoglobin (Bld) [Mass/Vol] 7.4 g/dL Critically low 14.0-18.0 [facility] Comment on above: Performed By: #### M SHIREEN Vidal, PHOS #### [facility] [address] [place] [address] Dr. Dk Mahoney IG # 0.03 10e3/ul Normal 0.00-0.03 [facility] Comment on above: Performed By: #### M SHIREEN Vidal, PHOS #### [facility] [address] [place] [address] Dr. Dk Mahoney IG % 0.4 % Normal 0.0-0.5 [facility] Comment on above: Performed By: #### M SHIREEN Vidal, PHOS #### [facility] [address] [place] [address] Dr. Dk Mahoney LYMPH # 0.9 103/ul Critically low 1.2-3.8 [facility] Comment on above: Performed By: #### M SHIREEN Vidal, PHOS #### [facility] [address] [place] [address] Dr. Dk Mahoney Lymphocytes/100 WBC (Bld) 13.8 % Critically low 20.5-60.0 [facility] Comment on above: Performed By: #### M Young CMP, PHOS #### [facility] [address] [place] [address] Dr. Dk Mahoney MANUAL DIFF REQ NO Normal [facility] Comment on above: Performed By: #### M Young CMP, PHOS #### [facility] [address] [place] [address] Dr. Dk Mahoney MCH (RBC) [Entitic mass] 28.4 pg Normal 25.9-34.0 [facility] Comment on above: Performed By: #### M Young CMP, PHOS #### [facility] [address] [place] [address] Dr. Dk Mahoney MCHC (RBC) [Mass/Vol] 34.3 g/dL Normal 29.9-35.2 [facility] Comment on above: Performed By: #### M G, CMP, PHOS #### [facility] [address] [place] [address] Dr. Dk Mahoney MCV (RBC) [Entitic vol] 82.8 fL Normal 80.0-94.0 [facility] Comment on above: Performed By: #### M G, CMP, PHOS #### [facility] [address] [place] [address] Dr. Dk Mahoney MONO # 0.6 103/ul Normal 0.3-0.8 [facility] Comment on above: Performed By: #### M G, CMP, PHOS #### [facility] [address] [place] [address] Dr. Dk Mahoney Monocytes/100 WBC (Bld) 8.8 % Normal 1.7-12.0 [facility] Comment on above: Performed By: #### M G, CMP, PHOS #### [facility] [address] [place] [address] Dr. Dk Mahoney NEUT # 4.9 103/ul Normal 1.4-6.5 [facility] Comment on above: Performed By: #### M G, CMP, PHOS #### [facility] [address] [place] [address] Dr. Dk Mahoney Neutrophils/100 WBC (Bld) 71.9 % Normal 43.0-75.0 [facility] Comment on above: Performed By: #### M G, CMP, PHOS #### [facility] [address] [place] [address] Dr. Dk Mahoney Platelet mean volume (Bld) [Entitic vol] 9.3 fL Critically low 9.5-13.5 [facility] Comment on above: Performed By: #### M G, CMP, PHOS #### [facility] [address] [place] [address] Dr. Dk Mahoney PLT 178 103/ul Normal 150-450 [facility] Comment on above: Performed By: #### M SHIREEN Vidal, PHOS #### [facility] [address] [address] [address] Dk Mahoney RBC 2.61 106/ul Critically low 4.70-6.10 [facility] Comment on above: Performed By: #### M SHIREEN Vidal, PHOS #### [facility] [address] [address] [address] Dk Mahoney WBC 6.8 103/ul Normal 4.0-11.0 [facility] Comment on above: Performed By: #### M SHIREEN Vidal, PHOS #### [facility] [address] [address] [address] Dk Mahoney [facility]15 SARS-CoV-2 (COVID-19) RNA JASON+probe Ql (Unsp spec) Not detected Normal NOT DETECTED [facility] Comment on above: Result Comment: When diagnostic [...] for this test is supported by the [place] of Health and Human Service's declaration that [...] used). Performed By: #### P OCGLUC #### [facility] [address] [address] [address] Dk Mahoney PROF CHEM 8 (BAS METB)on Anion gap [Moles/Vol] 14.7 mmol/L Normal [facility] Comment on above: Performed By: #### M G, CMP, PHOS #### [facility] [address] [address] [address] Dk Mahoney Calcium [Mass/Vol] 9.3 mg/dL Normal 8.5-10.1 [facility] Comment on above: Performed By: #### M G, CMP, PHOS #### [facility] [address] [address] [address] Dk Mahoney Chloride [Moles/Vol] 109 mmol/L Critically high 98-107 [facility] Comment on above: Performed By: #### M G, CMP, PHOS #### [facility] [address] [place] [address] Dr. Dk Mahoney CO2 [Moles/Vol] 21.3 mmol/L Normal 21.0-32.0 [facility] Comment on above: Performed By: #### M Young, CMP, PHOS #### [facility] [address] [place] [address] Dr. Dk Mahoney Creatinine [Mass/Vol] 4.61 mg/dL Critically high 0.70-1.30 [facility] Comment on above: Performed By: #### M Young, CMP, PHOS #### [facility] [address] [place] [address] Dr. Dk Mahoney EGFR-AF ALBANIAN 15 mL/min/1.73m2 Critically low >=60 [facility] Comment on above: Performed By: #### M G, CMP, PHOS #### [facility] [address] [place] [address] Dr. Dk Mahoney EGFR-NON AF ALBANIAN 13 mL/min/1.73m2 Critically low >=60 [facility] Comment on above: Performed By: #### M G, CMP, PHOS #### [facility] [address] [place] [address] Dr. Dk Mahoney Glucose [Mass/Vol] 200 mg/dL Critically high 74-106 [facility] Comment on above: Performed By: #### M G, CMP, PHOS #### [facility] [address] [address] [address] Dk Mahoney Potassium [Moles/Vol] 5.0 mmol/L Normal 3.5-5.1 [facility] Comment on above: Performed By: #### M G, CMP, PHOS #### [facility] [address] [address] [address] Dk Mahoney Sodium [Moles/Vol] 140 mmol/L Normal 136-145 [facility] Comment on above: Performed By: #### M G, CMP, PHOS #### [facility] [address] [address] [address] Dk Mahoney Urea nitrogen [Mass/Vol] 64.0 mg/dL Critically high 7.0-18.0 [facility] Comment on above: Performed By: #### M Young, CMP, PHOS #### [facility] [address] [address] [address] Dk Mahoney Urea nitrogen/Creatinine [Mass ratio] 13.9 mg/mg Normal [facility] Comment on above: Performed By: #### M Young, CMP, PHOS #### [facility] [address] [address] [address] Dk Mahoney TROPONIN, HIGH SENSITIVITYon 05-04-2022 HSTROP 29.4 pg/mL Normal 4.0-76.1 [facility] Comment on above: Result Comment: CUT- OFF POINTS HAVE BEEN ESTABLISHED BASED ON THE FOURTH UNIVERSAL DEFINITIONS OF MYOCARDIAL INFARCTION. THE UPPER REFERENCE LIMIT (URL) OF TROPONIN, DEFINED THE 99TH PERCENTILE OF cTnI DISTRIBUTION IN A REFERENCE POPULATION, HAS BEEN CONFIRMED THE DECISION THRESHOLD FOR AR DIAGNOSIS. Performed By: #### M G, CMP, PHOS #### [facility] [address] [address] [address] Dk Mahoney TYPE AND SCREENon 05-04-2022 TYPE AND SCREEN Negative Normal [facility] Comment on above: Performed By: #### A NOE, TNS #### [facility] [address] [address] [address] Dk Mahoney US ROAWN DOP LEG LTon 05-04-19 23 US ROWAN [...] by: ROBERTO HEBERT Date: 2022-05-04 14:33 Normal [facility] PRBC LEUKOREDUCEDon 04-29-19 23 PRBC LEUKOREDUCED Cross Match Result Compatible Unit Blood Type O Neg Unit Number [id number] Status Information Transfused Product ID Red Blood Cells Product Code [id number] Normal [facility] Comment on above: Performed By: #### P RBC #### [facility] [address] [place] [address] Dr. Dk Mahoney ABO RH RETYPEon 04-19-2022 ABO and Rh group Nom (Bld) DONE Normal [facility] Comment on above: Performed By: #### M G, CMP, PHOS #### [facility] [address] [place] [address] Dr. Dk Mahoney CBC AUTO DIFFon 04-19-2022 BASO # 0.1 103/ul Normal 0.0-0.1 [facility] Comment on above: Performed By: #### M G, CMP, PHOS #### [facility] [address] [place] [address] Dr. Dk Mahoney Basophils/100 WBC (Bld) 0.8 % Normal 0.2-2.0 [facility] Comment on above: Performed By: #### M G, CMP, PHOS #### [facility] [address] [place] [address] Dr. Dk Mahoney EO # 0.5 103/ul Normal 0.0-0.7 [facility] Comment on above: Performed By: #### M G, CMP, PHOS #### [facility] [address] [place] [address] Dr. Dk Mahoney Eosinophils/100 WBC (Bld) 6.9 % Normal 0.9-7.0 [facility] Comment on above: Performed By: #### M SHIREEN Vidal, PHOS #### [facility] [address] [place] [address] Dr. Dk Mahoney Erythrocyte distribution width (RBC) [Ratio] 16.3 % Critically high 11.0-15.0 [facility] Comment on above: Performed By: #### M SHIREEN Vidal, PHOS #### [facility] [address] [place] [address] Dr. Dk Mahoney Hematocrit (Bld) [Volume fraction] 20.8 % Critically low 42.0-54.0 [facility] Comment on above: Performed By: #### Rosmery Vidal CMP, PHOS #### [facility] [address] [place] [address] Dr. Dk Mahoney Hemoglobin (Bld) [Mass/Vol] 6.8 g/dL Critically low 14.0-18.0 [facility] Comment on above: Performed By: #### Rosmery Vidal CMP, PHOS #### [facility] [address] [place] [address] Dr. Dk Mahoney IG # 0.04 10e3/ul Critically high 0.00-0.03 [facility] Comment on above: Performed By: #### M SHIREEN Vidal, PHOS #### [facility] [address] [place] [address] Dr. Dk Mahoney IG % 0.6 % Critically high 0.0-0.5 [facility] Comment on above: Performed By: #### M Young CMP, PHOS #### [facility] [address] [place] [address] Dr. Dk Mahoney LYMPH # 1.0 103/ul Critically low 1.2-3.8 [facility] Comment on above: Performed By: #### M Young CMP, PHOS #### [facility] [address] [place] [address] Dr. Dk Mahoney Lymphocytes/100 WBC (Bld) 14.1 % Critically low 20.5-60.0 [facility] Comment on above: Performed By: #### M G, CMP, PHOS #### [facility] [address] [place] [address] Dr. Dk Mahoney MANUAL DIFF REQ NO Normal [facility] Comment on above: Performed By: #### M G, CMP, PHOS #### [facility] [address] [place] [address] Dr. Dk Mahoney MCH (RBC) [Entitic mass] 29.3 pg Normal 25.9-34.0 [facility] Comment on above: Performed By: #### M G, CMP, PHOS #### [facility] [address] [place] [address] Dr. Dk Mahoney MCHC (RBC) [Mass/Vol] 32.7 g/dL Normal 29.9-35.2 [facility] Comment on above: Performed By: #### M G, CMP, PHOS #### [facility] [address] [place] [address] Dr. Dk Mahoney MCV (RBC) [Entitic vol] 89.7 fL Normal 80.0-94.0 [facility] Comment on above: Performed By: #### M G, CMP, PHOS #### [facility] [address] [place] [address] Dr. Dk Mahoney MONO # 0.7 103/ul Normal 0.3-0.8 [facility] Comment on above: Performed By: #### M G, CMP, PHOS #### [facility] [address] [place] [address] Dr. Dk Mahoney Monocytes/100 WBC (Bld) 10.1 % Normal 1.7-12.0 [facility] Comment on above: Performed By: #### M G, CMP, PHOS #### [facility] [address] [place] [address] Dr. Dk Mahoney NEUT # 4.9 103/ul Normal 1.4-6.5 [facility] Comment on above: Performed By: #### M G, CMP, PHOS #### [facility] [address] [place] [address] Dr. Dk Mahoney Neutrophils/100 WBC (Bld) 67.5 % Normal 43.0-75.0 [facility] Comment on above: Performed By: #### M SHIREEN Vidal, PHOS #### [facility] [address] [place] [address] Dr. Dk Mahoney Platelet mean volume (Bld) [Entitic vol] 9.5 fL Normal 9.5-13.5 [facility] Comment on above: Performed By: #### Rosmery Vidal CMP, PHOS #### [facility] [address] [address] [address] Dk Mahoney PLT 212 103/ul Normal 150-450 [facility] Comment on above: Performed By: #### Rosmery Vidal CMP, PHOS #### [facility] [address] [place] [address] Dr. Dk Mahoney RBC 2.32 106/ul Critically low 4.70-6.10 [facility] Comment on above: Performed By: #### Rosmery Vidal CMP, PHOS #### [facility] [address] [place] [address] Dr. Dk Mahoney WBC 7.2 103/ul Normal 4.0-11.0 [facility] Comment on above: Performed By: #### Rosmery Vidal CMP, PHOS #### [facility] [address] [place] [address] Dr. Dk Mahoney [facility]-19 [facility]on SARS-CoV-2 (COVID-19) RNA JASON+probe Ql (Unsp spec) Not detected Normal NOT DETECTED [facility] Comment on above: Result Comment: When diagnostic [...] for this test is supported by the [place] of Health and Human Service's declaration that [...] By: #### Rosmery Vidal CMP, PHOS #### [facility] [address] [place] [address] Dr. Dk Mahoney PROF 14(COMP METB)on 023 Albumin [Mass/Vol] 2.4 g/dL Critically low 3.4-5.0 [facility] Comment on above: Performed By: #### Rosmery Vidal CMP, PHOS #### [facility] [address] [place] [address] Dr. Dk Mahoney Albumin/Globulin [Mass ratio] 0.6 {ratio} Normal [facility] Comment on above: Performed By: #### Rosmery Vidal CMP, PHOS #### [facility] [address] [place] [address] Dr. Dk Mahoney ALP [Catalytic activity/Vol] 142 U/L Critically high 46-116 [facility] Comment on above: Performed By: #### Rosmery Vidal CMP, PHOS #### [facility] [address] [place] [address] Dr. Dk Mahoney ALT [Catalytic activity/Vol] 26 U/L Normal 16-63 [facility] Comment on above: Performed By: #### Rosmery Vidal CMP, PHOS #### [facility] [address] [place] [address] Dr. Dk Mahoney Anion gap [Moles/Vol] 12.0 mmol/L Normal [facility] Comment on above: Performed By: #### Rosmery Vidal CMP, PHOS #### [facility] [address] [place] [address] Dr. Dk Mahoney AST [Catalytic activity/Vol] 19 U/L Normal 15-37 [facility] Comment on above: Performed By: #### Rosmery Vidal CMP, PHOS #### [facility] [address] [place] [address] Dr. Dk Mahoney Bilirubin [Mass/Vol] 0.3 mg/dL Normal 0.2-1.0 [facility] Comment on above: Performed By: #### M G, CMP, PHOS #### [facility] [address] [address] [address] Dk Mahoney Calcium [Mass/Vol] 9.3 mg/dL Normal 8.5-10.1 [facility] Comment on above: Performed By: #### M G, CMP, PHOS #### [facility] [address] [address] [address] Dk Mahoney Chloride [Moles/Vol] 109 mmol/L Critically high 98-107 [facility] Comment on above: Performed By: #### M G, CMP, PHOS #### [facility] [address] [place] [address] Dr. Dk Mahoney CO2 [Moles/Vol] 25.0 mmol/L Normal 21.0-32.0 [facility] Comment on above: Performed By: #### M G, CMP, PHOS #### [facility] [address] [address] [address] Dk Mahoney Creatinine [Mass/Vol] 4.83 mg/dL Critically high 0.70-1.30 [facility] Comment on above: Performed By: #### M G, CMP, PHOS #### [facility] [address] [address] [address] Dk Mahoney EGFR-AF ALBANIAN 15 mL/min/1.73m2 Critically low >=60 [facility] Comment on above: Performed By: #### M G, CMP, PHOS #### [facility] [address] [address] [address] Dk Mahoney EGFR-NON AF ALBANIAN 12 mL/min/1.73m2 Critically low >=60 [facility] Comment on above: Performed By: #### M G, CMP, PHOS #### [facility] [address] [address] [address] Dk Mahoney Globulin (S) [Mass/Vol] 4.1 g/dL Normal [facility] Comment on above: Performed By: #### M G, CMP, PHOS #### [facility] [address] [address] [address] Dk Mahoney Glucose [Mass/Vol] 128 mg/dL Critically high 74-[address] [facility] Comment on above: Performed By: #### M G, CMP, PHOS #### [facility] [address] [address] [address] Dk Mahoney Potassium [Moles/Vol] 5.0 mmol/L Normal 3.5-5.1 [facility] Comment on above: Performed By: #### M G, CMP, PHOS #### [facility] [address] [address] [address] Dk Mahoney Protein [Mass/Vol] 6.5 g/dL Normal 6.4-8.2 [facility] Comment on above: Performed By: #### M G, CMP, PHOS #### [facility] [address] [address] [address] Dk Mahoney Sodium [Moles/Vol] 141 mmol/L Normal 136-145 [facility] Comment on above: Performed By: #### M G, CMP, PHOS #### [facility] [address] [place] [address] Dr. Dk Mahoney Urea nitrogen [Mass/Vol] 62.0 mg/dL Critically high 7.0-18.0 [facility] Comment on above: Performed By: #### M G, CMP, PHOS #### [facility] [address] [address] [address] Dk Mahoney Urea nitrogen/Creatinine [Mass ratio] 12.8 mg/mg Normal [facility] Comment on above: Performed By: #### M G, CMP, PHOS #### [facility] [address] [place] [address] Dr. Dk Mahoney PROTIMEon 04-19-2022 INR Coag (PPP) [Relative time] 1.01 {INR} Normal [facility] Comment on above: Performed By: #### P OCGLUC #### [facility] [address] [place] [address] Dr. Dk Mahoney INR GUIDELINES SEE BELOW Normal [facility] Comment on above: Result Comment: JOSELO RED INR: 2.0 - 3.0 CONDITIONS NOT LISTED BELOW 2.5 - 3.5 FOR PROSTHETIC HEART VALVE REPLACEMENT 2.5 - 3.5 RECURRENT THROMBOSIS Performed By: #### P OCGLUC #### [facility] [address] [place] [address] Dr. Dk Mahoney PT Coag (PPP) [Time] 10.9 s Normal 9.0-11.6 [facility] Comment on above: Performed By: #### P OCGLUC #### [facility] [address] [place] [address] Dr. Dk Mahoney PTTon 04-19-2022 aPTT Coag (Bld) [Time] 25.8 s Normal 22.3-36.2 [facility] Comment on above: Performed By: #### P OCGLUC #### [facility] [address] [place] [address] Dr. Dk Mahoney TYPE AND SCREENon 04-19-2022 TYPE AND SCREEN Negative Normal [facility] Comment on above: Performed By: #### P OCGLUC #### [facility] [address] [place] [address] Dr. Dk Mahoney CBC AUTO DIFFon 10-24-2021 BASO # 0.1 103/ul Normal 0.0-0.1 [facility] Comment on above: Performed By: #### C BC #### [facility] [address] [place] [address] Dr. Dk Mahoney Basophils/100 WBC (Bld) 0.7 % Normal 0.2-2.0 [facility] Comment on above: Performed By: #### C BC #### [facility] [address] [place] [address] Dr. Dk Mahoney EO # 0.6 103/ul Normal 0.0-0.7 [facility] Comment on above: Performed By: #### C BC #### [facility] [address] [place] [address] Dr. Dk Mahoney Eosinophils/100 WBC (Bld) 7.7 % Critically high 0.9-7.0 [facility] Comment on above: Performed By: #### C BC #### [facility] [address] [place] [address] Dr. Dk Mahoney Erythrocyte distribution width (RBC) [Ratio] 17.2 % Critically high 11.0-15.0 [facility] Comment on above: Performed By: #### C BC #### [facility] [address] [place] [address] Dr. Dk Mahoney Hematocrit (Bld) [Volume fraction] 26.1 % Critically low 42.0-54.0 [facility] Comment on above: Performed By: #### C BC #### [facility] [address] [place] [address] Dr. Dk Mahoney Hemoglobin (Bld) [Mass/Vol] 8.1 g/dL Critically low 14.0-18.0 [facility] Comment on above: Performed By: #### C BC #### [facility] [address] [place] [address] Dr. Dk Mahoney IG # 0.06 10e3/ul Critically high 0.00-0.03 [facility] Comment on above: Performed By: #### C BC #### [facility] [address] [place] [address] Dr. Dk Mahoney IG % 0.8 % Critically high 0.0-0.5 [facility] Comment on above: Performed By: #### C BC #### [facility] [address] [place] [address] Dr. Dk Mahoney LYMPH # 1.4 103/ul Normal 1.2-3.8 [facility] Comment on above: Performed By: #### C BC #### [facility] [address] [place] [address] Dr. Dk Mahoney Lymphocytes/100 WBC (Bld) 18.1 % Critically low 20.5-60.0 [facility] Comment on above: Performed By: #### C BC #### [facility] [address] [place] [address] Dr. Dk Mahoney MANUAL DIFF REQ NO Normal [facility] Comment on above: Performed By: #### C BC #### [facility] [address] [place] [address] Dr. Dk Mahoney MCH (RBC) [Entitic mass] 25.6 pg Critically low 25.9-34.0 [facility] Comment on above: Performed By: #### C BC #### [facility] [address] [place] [address] Dr. Dk Mahoney MCHC (RBC) [Mass/Vol] 31.0 g/dL Normal 29.9-35.2 [facility] Comment on above: Performed By: #### C BC #### [facility] [address] [place] [address] Dr. Dk Mahoney MCV (RBC) [Entitic vol] 82.3 fL Normal 80.0-94.0 [facility] Comment on above: Performed By: #### C BC #### [facility] [address] [place] [address] Dr. Dk Mhaoney MONO # 0.9 103/ul Critically high 0.3-0.8 [facility] Comment on above: Performed By: #### C BC #### [facility] [address] [place] [address] Dr. Dk Mahoney Monocytes/100 WBC (Bld) 12.4 % Critically high 1.7-12.0 [facility] Comment on above: Performed By: #### C BC #### [facility] [address] [place] [address] Dr. Dk Mahoney NEUT # 4.6 103/ul Normal 1.4-6.5 [facility] Comment on above: Performed By: #### C BC #### [facility] [address] [place] [address] Dr. Dk Mahoney Neutrophils/100 WBC (Bld) 60.3 % Normal 43.0-75.0 [facility] Comment on above: Performed By: #### C BC #### [facility] [address] [place] [address] Dr. Dk Mahoney Platelet mean volume (Bld) [Entitic vol] 9.5 fL Normal 9.5-13.5 [facility] Comment on above: Performed By: #### C BC #### [facility] [address] [address] [address] Dk Mahoney PLT 201 103/ul Normal 150-450 [facility] Comment on above: Performed By: #### C BC #### [facility] [address] [address] [address] Dk Mahoney RBC 3.17 106/ul Critically low 4.70-6.10 [facility] Comment on above: Performed By: #### C BC #### [facility] [address] [address] [address] Dk Mahoney WBC 7.5 103/ul Normal 4.0-11.0 [facility] Comment on above: Performed By: #### C BC #### [facility] [address] [place] [address] Dr. Dk Mahoney PROF CHEM 8 (BAS METB)on Anion gap [Moles/Vol] 12.3 mmol/L Normal [facility] Comment on above: Performed By: #### M Young, CMP, PHOS #### [facility] [address] [place] [address] Dr. Dk Mahoney Calcium [Mass/Vol] 9.6 mg/dL Normal 8.5-10.1 [facility] Comment on above: Performed By: #### M G, CMP, PHOS #### [facility] [address] [place] [address] Dr. Dk Mahoney Chloride [Moles/Vol] 107 mmol/L Normal 98-107 [facility] Comment on above: Performed By: #### M G, CMP, PHOS #### [facility] [address] [place] [address] Dr. Dk Mahoney CO2 [Moles/Vol] 26.5 mmol/L Normal 21.0-32.0 [facility] Comment on above: Performed By: #### M G, CMP, PHOS #### [facility] [address] [place] [address] Dr. Dk Mahoney Creatinine [Mass/Vol] 3.76 mg/dL Critically high 0.70-1.30 [facility] Comment on above: Performed By: #### M Young, CMP, PHOS #### [facility] [address] [address] [address] Dk Mahoney EGFR-AF ALBANIAN 19 mL/min/1.73m2 Critically low >=60 [facility] Comment on above: Performed By: #### M G, CMP, PHOS #### [facility] [address] [address] [address] Dk Mahoney EGFR-NON AF ALBANIAN 16 mL/min/1.73m2 Critically low >=60 [facility] Comment on above: Performed By: #### M Young, CMP, PHOS #### [facility] [address] [address] [address] Dk Mahoney Glucose [Mass/Vol] 143 mg/dL Critically high 74-[address] [facility] Comment on above: Performed By: #### M Young, CMP, PHOS #### [facility] [address] [address] [address] Dk Mahoney Potassium [Moles/Vol] 4.8 mmol/L Normal 3.5-5.1 [facility] Comment on above: Performed By: #### M Young, CMP, PHOS #### [facility] [address] [address] [address] Dk Mahoney Sodium [Moles/Vol] 141 mmol/L Normal 136-145 [facility] Comment on above: Performed By: #### M G, CMP, PHOS #### [facility] [address] [address] [address] Dk Mahoney Urea nitrogen [Mass/Vol] 47.0 mg/dL Critically high 7.0-18.0 [facility] Comment on above: Performed By: #### M G, CMP, PHOS #### [facility] [address] [address] [address] Dk Mahoney Urea nitrogen/Creatinine [Mass ratio] 12.5 mg/mg Normal [facility] Comment on above: Performed By: #### M SHIREEN Vidal PHOS #### [facility] [address] [address] [address] Dk Mahoney US ROWAN DOP LEG [...] MARQUES AMAYA Date: 2021-10-24 18:07 Normal [facility] Office Visit (Urology)on Follow-up visit Diagnoses/Problems Assessed [...] d By: Riana Pro on 08-29-2020 - [employer] Work Phone: Amorphous, UA NOT REPORTED None [employer] Work Phone: Bacteria, UA 2+ Abnormal None [facility] Work Phone: Casts UA NOT REPORTED /LPF [facility] Work Phone: Crystals, UA NOT REPORTED None /HPF [employer] [facility] Work Phone: Epithelial Cells UA 2 TO 5 [employer] Work Phone: Interpretation and review of laboratory results Abnormal [facility] Work Phone: Mucus, UA NOT REPORTED None [facility] Work Phone: Other Observations UA NOT REPORTED NOT REQ. M erc [employer] Work Phone: RBC, UA 50 TO 100 [employer] Work Phone: Renal Epithelial, UA NOT REPORTED 0 /HPF [facility] Work Phone: Trichomonas, UA NOT REPORTED None [employer] [facility] Work Phone: WBC, UA GREATER THAN 100 [employer] [facility] Work Phone: Yeast, UA NOT REPORTED None [employer] Work Phone: [employer] Work Phone: Urinalysis Reflex to Culture Ordered By: Riana Pro on 08-29-2020 Bilirubin Urine Negative NEGATIVE [facility] Work Phone: Color, UA YELLOW YELLOW [employer] Work Phone: Glucose, Ur Negative NEGATIVE [employer] Work Phone: Interpretation and review of laboratory results Abnormal [employer] Work Phone: Ketones Ql (U) Negative NEGATIVE [employer] Work Phone: Leukocyte esterase Test strip Ql (U) LARGE Abnormal NEGATIVE Ang[employer] Joy Phone: Nitrite, Urine Positive Abnormal NEGATIVE [employer] Work Phone: pH, UA 7.5 [facility] [employer] Work Phone: Protein, UA 1+ Abnormal NEGATIVE [employer] Work Phone: Specific [place], UA 1.010 [employer] Work Phone: Turbidity UA CLEAR CLEAR [employer] Work Phone: Urinalysis Comments NOT REPORTED [facility] [employer] Work Phone: Urine Hgb 3+ Abnormal NEGATIVE [facility] Work Phone: Urobilinogen, Urine Normal Normal [facility] Work Phone: [facility] Work Phone: Microscopic Urinalysison Amorphous, UA NOT REPORTED None [facility] [place], [place] Bacteria, UA 2+ Abnormal None [facility] [place] Casts UA NOT REPORTED /LPF [facility] [employer] - [place] Crystals, UA NOT REPORTED None /HPF [facility] [employer] - [place] Epithelial Cells UA 2 TO 5 [facility] [employer] Interpretation and review of laboratory results Abnormal [place], [place] Mucus, UA NOT REPORTED None [place], [place] Other Observations UA NOT REPORTED NOT REQ. M [place] RBC (U) [#/Vol] 20 TO 50 [place] Renal Epithelial, UA NOT REPORTED 0 /HPF Me [place], [place] Trichomonas, UA NOT REPORTED None [place], [place] WBC, UA GREATER THAN 100 [place] Yeast, UA NOT REPORTED None [place] Urinalysison 02-03-2020 Bilirubin Urine Negative NEGATIVE [place] Color, UA YELLOW YELLOW [place] Glucose, Ur Negative NEGATIVE [place] Interpretation and review of laboratory results Abnormal [place] Ketones Ql (U) Negative NEGATIVE [place] Leukocyte esterase Test strip Ql (U) LARGE Abnormal NEGATIVE [place] Nitrite, Urine Positive Abnormal NEGATIVE [place] pH, UA 8.0 [place] Protein (U) [Mass/Vol] TRACE Abnormal NEGATIVE [place] Specific [place], UA 1.015 [place] Turbidity UA SLIGHTLY CLOUDY Abnormal CLEAR [place] Urinalysis Comments NOT REPORTED [place] Urine Hgb 3+ Abnormal NEGATIVE [place] Urobilinogen, Urine Normal Normal [place] Vital Signs Date Time Vital Sign Value Performing Clinician Facility 10-08-2022 12:20-0400 Body height 180.34 cm Devaughn Lucio Other [employer] [facility] [employer] Other 10-08-2022 12:20-0400 Body temperature 96.6 [degF] Devaughn Aviladir Other [email or web address] Other 10-08-2022 12:20-0400 Diastolic blood pressure 60 mm[Hg] Devaughn Lucio Other [email or web address] Other 10-08-2022 12:20-0400 Respiratory rate 18 /min Devaughn Khadijah Other [email or web address] Other 10-08-2022 12:20-0400 SaO2% (BldA) [Mass fraction] 100 % Devaughn Khadijah Other [email or web address] Other 10-08-2022 12:20-0400 Systolic blood pressure 121 mm[Hg] Devaughn Khadijah Other [email or web address] Other 10-01-2022 13:30-0400 Body height 180.34 cm Erik Sanderson Other [email or web address] Other 10-01-2022 13:30-0400 Body mass index (BMI) [Ratio] 42.12 kg/m2 Erik Shepherdrer Other [email or web address] Other 10-01-2022 13:30-0400 Body temperature 97.2 [degF] Erik Shepehrdrer Other [email or web address] Other 10-01-2022 13:30-0400 Body weight 136.99 kg Erik Shepherdrer Other [email or web address] Other 10-01-2022 13:30-0400 Diastolic blood pressure 68 mm[Hg] Erik Ariasehrer Other [email or web address] Other 10-01-2022 13:30-0400 SaO2% (BldA) [Mass fraction] 97 % Erik Ariasehrer Other [email or web address] Other 10-01-2022 13:30-0400 Systolic blood pressure 138 mm[Hg] Erik Sanderson Other [email or web address] Other Encounters Encounter Date Encounter Type Care Provider Facility Start: 01-17-2023 End: 01-18-2023 ambulatory BLANCA Mahoney [facility] Start: 10-21-2022 End: 10-21-2022 ambulatory Devaughn Khadijah Other [email or web address] Other Start: 10-21-2022 Telephone encounter Devaughn Khadijah [facility] Start: 10-18-2022 End: 10-18-2022 ambulatory Devaughn Khadijah Other [email or web address] Other Start: 10-18-2022 Telephone encounter Devaughn Khadijah [facility] Start: 10-08-2022 End: 10-08-2022 ambulatory Devaughn Khadijah Other [email or web address] Other Start: 10-08-2022 Office outpatient visit 15 minutes Devaughn Khadijah [facility] Start: 10-01-2022 End: 10-01-2022 ambulatory Erik Sanderson Other [email or web address] Other Start: 10-01-2022 Office outpatient visit 25 minutes Erik Sanderson [facility] Start: 08-31-2022 End: 09-01-2022 ambulatory ЕЛЕНА SAMSON Facility:[id number] Start: 08-30-2022 End: 09-04-2022 Evaluation and management of inpatient Eldon López Facility:[facility] Start: 07-05-2022 End: 07-07-[address] ERIK RHODES . Facility:[facility] Start: 05-04-2022 End: 05-04-2022 ambulatory ROBERTO HEBERT Facility:[facility] Start: 04-19-2022 End: 04-19-[address] ERIK RHODES . Facility:[facility] Start: 03-14-2022 End: 12-01-[address] NONE LISTED REQUEST Facility: Start: 10-24-2021 End: 10-24-2021 ambulatory PA FUAD KEVIN . Facility: Start: 08-29-2020 End: 08-29-2020 [facility] Start: 02-03-2020 End: 02-03-2020 Subsequent hospital visit by physician [facility] Laboratory Procedures Date Procedure Procedure Detail Performing Clinician Start: 08-31-2022 Antibody screen Eldon López Comment on above: Order Comment: NEEDS DRAWN Result Comment: PERF ORMED BY: [facility] [address] [place] [address] PATHOLOGIST CANE CUTTER BRANDEN WHATLEY M.D. Start: 08-29-2020 Urinalysis microscop [...] Influenza vaccination Flu vacc ine (Season Ended) [facility] Work Phone: Start: 04-30-2020 Creatinine measurement Creatinine mo [place]itoring [place] Start: 04-30-2020 Potassium monitoring Potassium monit [place]ing [place] Start: 12-14-2019 Influenza vaccination Flu vaccine (# 1) [place] Start: 02-08-2019 Annual Wellness Visi t (AWV) Annual Wellness Visit (AWV) [place] Start: 09-11-2015 Pneumococcal 65+ yea rs Vaccine (1 of 1 - PPSV23) Pneumococcal 65+ years Vaccine (1 of 1 - PPSV23) [place] Start: 2000 Screening for malign ant neoplasm of colon Colon cancer screen colonoscopy [place], [place] Start: 2000 Shingles Vaccine (1 of 2) Ordoñez gles Vaccine (1 of 2) [place] Start: 1969 DTaP/Tdap/Td vaccine (1 - Tdap) DTaP/Tdap/Td vaccine (1 - Tdap) [place] Start: 1962 COVID-19 Vaccine (1) COVID-19 Vaccin e (1) [facility] Phone: Start: 1960 Lipid panel Lipid screen [place] Start: 1950 Hepatitis C screening Hepatitis C sc reen [place] End: 02-03-2020 Culture, Urine Culture, Urine Microbiology Routine Once for 1 Occurrences starting 02/03/2020 until 02/03/2020 [place] Comment on above: Once for 1 Occurrenc es starting 02/03/2020 until 02/03/2020 Culture, Urine [place] End: 08-29-2020 Culture, Urine Culture, Urine Microbiology Routine Once for 1 Occurrences starting 08/29/2020 until 08/29/2020 [facility] [employer] Phone: Comment on above: Once for 1 Occurrenc es starting 08/29/2020 until 08/29/2020 Payers Date Payer Category Payer Self-pay 2022 Unknown [id number] 2022 Medicare [id number] 2020 Medicare [id number] 2019 Medicare [id number] 2019 Unknown [id number] 2014 Medicare [employer] MEDIC[employer] [facility] [id number] 2014-Present [address] [address] [place] [address] [id number] 1950 Unknown [id number] 1950 Unknown [id number] 1950 Unknown [id number] 1950 Unknown [id number] 1950 Unknown [id number] 1950 Unknown [id number] 1950 Unknown [id number] Medicare [id number] Unknown [id number] Social History Date Type Detail Facility Start: 02-05-2019 Tobacco smoking status NHIS Unknown if ever smoked [facility] Start: 1950 Sex Assigned At Not on file [facility] [place] Sex Assigned At Sex Assigned At [facility] [email or web address] Other Evaluation note 10-08-2022 Note Date & Type Note Facility 10-08-2022 Evaluation note Encounter Date Diagnosis Assessment Notes Sep, CKD (chronic kidney disease) stage 4, GFR 15-29 ml/min (ICD-10 - N18.4) He has a CKD due to the longstanding hypertension and recurrent SHAWN due to the obstructive uropathy. He recently required hemodialysis due to the obstructive uropathy. He was monitored by the [facility] and catheter was removed as his renal function was improving as per the patient. Patient currently bedbound and can not be transferred out of the stretcher at our office. He does not want to follow-up in our office. Advised him to continue follow with the PCP and the [facility] for CKD and renal function monitoring Patient's recent lab from the [facility] are not available. 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 He appears to be euvolemic. Continue current medications. Sep, Secondary hyperparathyroidism (ICD-10 - N25.81) Continue sevelamer and vitamin D as prescribed by [facility] physician. Continue to follow with the [facility] [place]. Sep, Anemia of renal disease (ICD-10 - D63.1) Continue oral iron. Sep, Nephrolithiasis (ICD-10 - N20.0) Continue follow up with urology. [email or web address] Other Evaluation note 10-01-2022 Note Date & [...] this well and a dressing was applied. [email or web address] Other Evaluation note Note Date & Type Note Facility Evaluation note No Information [employer] Other History general Narrative - Reported Note [...] REMOVAL Hospitalization History SEE ABOVE Hospitalization History [facility] 09/11/19 [email or web address] Other Advance Directives No Advanced Directives Records FoundDocuments on File Type Date Recorded Patient Digital Ad Trafficker Expl anation ACP-Advance Directive ACP-Power of Java Technical Manager Summary Purpose Family History No Family History [...] DATE CREATED AUTHOR AUTHOR'S ORGANIZ ATION 09/22/2022 [facility] DATE CREATED AUTHOR AUTHOR'S ORGANIZ ATION 10/29/2022 [facility] DATE CREATED AUTHOR AUTHOR'S ORGANIZ ATION 01/20/2023 [facility] REASON FOR VISIT (unrecogniz ed [...] BE BASED ON THE PRIMARY CLINICAL RECORDS. [employer] [facility]. provides no warranty or guarantee of the accuracy or completeness of information in this document.
[2023-08-17 04:53] LABS: Basophils Absolute Auto 0.1 10^3/uL (0.0-0.1); Basophils Percent Auto 0.8 % (0.2-2.0); Eosinophils Absolute Auto 0.3 10^3/uL (0.0-0.7); Eosinophils Percent Auto 3.7 % (0.9-7.0); Hematocrit 30.6 % (42.0-54.0); Hemoglobin 9.5 g/dL (14.0-18.0); Immature Granulocytes Abs Auto 0.04 10^3/uL (0.00-0.03); Immature Granulocytes Pct Auto 0.5 % (0.0-0.5); Lymphocytes Absolute Auto 1.2 10^3/uL (1.2-3.8); Lymphocytes Percent Auto 13.3 % (20.5-60.0); Mean Corpuscular Hemoglobin 28.3 pg (25.9-34.0); Mean Corpuscular Volume 91.1 fL (80.0-94.0); Mean Platelet Volume 9.8 fL (9.5-13.5); Monocytes Absolute Auto 0.9 10^3/uL (0.3-0.8); Monocytes Percent Auto 9.8 % (1.7-12.0); Neutrophils Absolute Auto 6.4 10^3/uL (1.4-6.5); Neutrophils Percent Auto 71.9 % (43.0-75.0); Platelet Count 135 10^3/uL (150-450); Red Blood Count 3.36 10^6/uL (4.70-6.10); Red Cell Distribution Width 14.6 % (11.0-15.0); White Blood Count 8.9 10^3/uL (4.0-11.0)
[2023-08-17 05:15] LABS: Alanine Aminotransferase 43 U/L (16-63); Albumin Globulin Ratio 0.7; Albumin Level 2.6 g/dL (3.4-5.0); Alkaline Phosphatase 126 U/L (46-116); Anion Gap 16.9; Aspartate Amino Transferase 20 U/L (15-37); BUN Creatinine Ratio 19.4; Bilirubin Total 0.4 mg/dL (0.2-1.0); Calcium 9.8 mg/dL (8.5-10.1); Carbon Dioxide 19.6 mmol/L (21.0-32.0); Chloride 106 mmol/L (98-107); Estimated GFR (African America 12 (>=60); Estimated GFR (Non-African Ame 10 (>=60); Globulin 3.7 g/dL; Glucose 129 mg/dL (74-106); Potassium 4.5 mmol/L (3.5-5.1); Sodium 138 mmol/L (136-145); Total Protein 6.3 g/dL (6.4-8.2); Troponin I High Sensitivity 28.2 pg/mL (4.0-76.1)
[2023-08-17] MEDS: 0.9 % SODIUM CHLORIDE 1,000 ML 100 ML IV (05:50)
[2023-08-17] MEDS: CARVEDILOL 12.5 MG TABLET PO ×2 (09:45→21:11)
[2023-08-17] MEDS: FINASTERIDE 5 MG TABLET PO (09:45)
[2023-08-17] MEDS: OMEPRAZOLE 20 MG CAPSULE.DR PO (11:37)
[2023-08-17] MEDS: SOLIFENACIN SUCCINATE 10 MG TABLET PO (11:38)
[2023-08-17] MEDS: VENLAFAXINE HCL ER 37.5 MG CAPSULE PO (11:38)
[2023-08-17] MEDS: CETIRIZINE HCL 10 MG TABLET PO (11:38)
[2023-08-17] MEDS: FERROUS SULFATE 325 MG TABLET PO (11:38)
[2023-08-17] MEDS: CHOLECALCIFEROL (VITAMIN D3) 25 MCG/1,000 UNITS TABLET 50 MCG PO (11:39)
[2023-08-17 11:45] LABS: Glucometer 114 mg/dL (74-106)
[2023-08-17] MEDS: LEVOTHYROXINE SODIUM 75 MCG TABLET PO (11:48)
--- NOTE | 2023-08-17 12:29 | PM.HP ---
HPI H&P: HPI History of Present Illness Chief complaint: blood in urine Chronic Renal Failure Dehydration P Narrative: 72-year-old male who is bed bound from history of prior CVA, lives by himself at home and has warehouse helper to help manage his daily activities and chronic medical conditions him in last evening when he noticed gross hematuria that started earlier last morning. Patient has chronic indwelling catheter and history of recurrent urinary tract infection. He has mild abdominal discomfort in lower abdomen and feels a little tired and weaker than usual. In Emergency Room, he was noted to have [place] hematuria for which he was admitted for treatment and close monitoring.. He continues to have gross hematuria. Urology was consulted and their recommendations noted. He is on Aspirin that is on hold. He is also being treated for urinary tract infection associated with chronic indwelling catheter with IV Rocephin. He feels better than last night but is worried about hematuria and urinary tract infection Opioid HPI Opioid Management Most Recent Opioid Data: Last Pain Scale 5 02/04/23 16:26 Last Pain Assessment 08/17/23 12:00 Last ORT Total Score 3 08/17/23 02:17 Last ORT Risk Category Low Risk 08/17/23 02:17 Review of Systems ROS Status of ROS 10 or more systems reviewed and unremarkable except as noted in history and below PFSH [facility] Medical History (Updated 08/17/23 @ 12:38 by Shaikh Arturo MD) T2DM (type 2 diabetes mellitus) ?E11.9 - Type 2 diabetes mellitus without complications (ICD-10) Hypothyroid ?E03.9 - Hypothyroidism, unspecified (ICD-10) HLD (hyperlipidemia) ?E78.5 - Hyperlipidemia, unspecified (ICD-10) HTN (hypertension) ?I10 - Essential (primary) hypertension (ICD-10) Anemia in CKD (chronic kidney disease) ?N18.9 - Chronic kidney disease, unspecified (ICD-10) ?D63.1 - Anemia in chronic kidney disease (ICD-10) Chronic indwelling Wooten catheter ?Z97.8 - Presence of other specified devices (ICD-10) Paraplegia ?G82.20 - Paraplegia, unspecified (ICD-10) Bedbound ?Z74.01 - Bed confinement status (ICD-10) H/O: CVA (cerebrovascular accident) ?Z86.73 - Personal history of transient ischemic attack (TIA), and cerebral infarction without residual deficits (ICD-10) Chronic renal failure (CRF), stage 4 (severe) ?N18.4 - Chronic kidney disease, stage 4 (severe) (ICD-10) Pyuria ?R82.81 - Pyuria (ICD-10) CKD (chronic kidney disease) stage 5, GFR less than 15 ml/min ?N18.5 - Chronic kidney disease, stage 5 (ICD-10) Social History (Updated 08/17/23 @ 12:36 by Shaikh Arturo MD) Within the past year, how often did you have a drink containing alcohol: never Score interpretation: A score less than 4 is consistent with normal alcohol consumption. Smoking status: Former smoker Non-prescribed substance use: denies use Highest level of school completed/degree received: Associate degree: occupational, technical, vocational program Do you think of yourself as: straight/heterosexual Gender Identity: male Meds Home Medications and Allergies Home Medications ?Medication ?Instructions ?Recorded ?Confirmed ?Type acetaminophen 325 mg capsule 975 mg PO TID PRN fever or pain 08/17/23 08/17/23 History (Tylenol) albuterol 90 mcg/actuation aerosol 90 mcg inhalation QID PRN 08/17/23 08/17/23 History inhaler shortness of breath or wheezing aspirin 81 mg tablet,delayed 81 mg PO DAILY 08/17/23 08/17/23 History release (Adult Low Dose Aspirin) atorvastatin 80 mg tablet 80 mg PO DAILY 08/17/23 08/17/23 History bacitracin zinc 500 unit/gram 1 applic topical DAILY PRN skin 08/17/23 08/17/23 History topical ointment irritation benzocaine 15 mg-menthol 2.6 mg 1 thien mucous membrane Q6H PRN sore 08/17/23 08/17/23 History lozenges (Cepacol Sore Throat throat (benzocaine-menthol)) calcitriol 0.25 mcg capsule 0.25 mcg PO .3 TIMES WEEK 08/17/23 08/17/23 History carvedilol 12.5 mg tablet 12.5 mg PO BID 08/17/23 08/17/23 History cholecalciferol (vitamin D3) 50 2,000 unit PO DAILY 08/17/23 08/17/23 History mcg (2,000 unit) capsule clobetasol 0.05 % topical cream 1 applic topical BID 08/17/23 08/17/23 History darbepoetin danielle in polysorbat 100 100 mcg subcut .q2week 08/17/23 08/17/23 History mcg/0.5 mL in polysorbate injection syringe darbepoetin danielle in polysorbat 100 100 mcg subcut QWEEK 08/17/23 08/17/23 History mcg/mL in polysorbate injection darifenacin 15 mg tablet,extended 15 mg PO DAILY 08/17/23 08/17/23 History release 24 hr ferrous sulfate 325 mg (65 mg 325 mg PO DAILY 08/17/23 08/17/23 History iron) tablet,delayed release finasteride 5 mg tablet 5 mg PO DAILY 08/17/23 08/17/23 History guaifenesin 600 mg tablet, 600 mg PO BID PRN congestion 08/17/23 08/17/23 History extended release 12 hr hydrocodone 5 mg-acetaminophen 325 1 tab PO Q4H PRN pain 08/17/23 08/17/23 History mg tablet hydrophilic cream 1 applic topical BID 08/17/23 08/17/23 History levothyroxine 75 mcg capsule 75 mcg PO DAILY 08/17/23 08/17/23 History lidocaine HCl 2 % topical gel 1 applic topical DAILY PRN pain 08/17/23 08/17/23 History lidocaine HCl 4 % topical ointment 1 ea topical TID PRN pain 08/17/23 08/17/23 History (AsperFlex (lidocaine HCl)) loratadine 10 mg tablet (Allergy 10 mg PO DAILY 08/17/23 08/17/23 History Relief (loratadine)) melatonin 3 mg tablet 6 mg PO DAILY 08/17/23 08/17/23 History miconazole nitrate 2 % topical 1 applic topical DAILY 08/17/23 08/17/23 History cream miconazole nitrate 2 % topical 1 applic topical DAILY PRN fungal 08/17/23 08/17/23 History powder (Remedy Phytoplex Antifungal) multivitamin 1 tab PO DAILY 08/17/23 08/17/23 History nitroglycerin 0.4 mg sublingual 0.4 mg sublingual Q5M 08/17/23 08/17/23 History tablet nystatin 100,000 unit/gram topical 1 applic topical DAILY PRN skin 08/17/23 08/17/23 History powder omeprazole 20 mg tablet,delayed 20 mg PO DAILY 08/17/23 08/17/23 History release polyethylene glycol 3350 17 17 g PO DAILY PRN constipation 08/17/23 08/17/23 History gram/dose oral powder (Miralax) potassium citrate-citric acid 30 ml PO DAILY 08/17/23 08/17/23 History 1,100 mg-334 mg/5 mL oral solution pramoxine 1 % lotion 1 applic topical BID PRN itching 08/17/23 08/17/23 History semaglutide 2 mg/dose (8 mg/3 mL) 0.5 mg subcut QWEEK 08/17/23 08/17/23 History subcutaneous pen injector (Ozempic) sennosides 8.6 mg capsule 8.6 mg PO DAILY PRN constipation 08/17/23 08/17/23 History trazodone 100 mg tablet 100 mg PO DAILY 08/17/23 08/17/23 History ustekinumab 90 mg/mL subcutaneous 90 mg subcut .every 10 weeks 08/17/23 08/17/23 History syringe venlafaxine 37.5 mg 37.5 mg PO DAILY 08/17/23 08/17/23 History capsule,extended release 24 hr wound dressings (Triad Wound 1 applic topical .MON. FRI. 08/17/23 08/17/23 History Dressing paste) zinc oxide 20 % topical ointment 1 applic topical DAILY PRN skin 08/17/23 08/17/23 History irritation Allergies Allergy/AdvReac Type Severity Reaction Status Date / Time Penicillins Allergy Mild Rash Verified 08/16/23 21:52 ferumoxides Allergy Rash Verified 08/16/23 21:52 sulfamethoxazole AdvReac Mild Nausea Verified 08/16/23 21:52 [From Sulfamethoxazole-Trimethoprim] trimethoprim AdvReac Mild Nausea Verified 08/16/23 21:52 [From Sulfamethoxazole-Trimethoprim] Exam Constitutional Vital Signs, click to edit/add: Last Vital Signs Temp 97.6 F 08/17/23 08:00 Pulse 78 08/17/23 08:00 Resp 18 08/17/23 08:00 BP 165/77 H 08/17/23 11:38 Pulse Ox 95 08/17/23 08:00 O2 Del Method Room Air 08/17/23 08:00 Documenting provider has reviewed patient's vital signs: yes Common normals: no apparent distress and oriented x3 Nutritional appearance: obese Respiratory Common normals: normal respiratory effort, no retractions, no use of accessory muscles and clear to auscultation bilaterally Effort & inspection: able to speak in complete sentences Cardio Common normals: no JVD, regular rate, regular rhythm, S1 normal heart sound and S2 normal heart sound GI Common normals: Normal to inspection, nondistended, normoactive bowel sounds present, soft to palpation, non-tender and no hepatosplenomegaly Extremity Common normals: normal to inspection and no clubbing, cyanosis or edema Neuro Common normals: oriented x3 Gait (neuro): unable to assess gait Motor exam: strength abnormal lower extremity 2 / 5 , left upper extremity 3 / 5 Psych Common normals: mental status grossly normal, thought process normal, cooperative, denies homicidal ideation and denies suicidal ideation Results Labs Labs: Short CBC 08/16/23 08/17/23 Range/Units 22:04 04:43 WBC 8.2 8.9 (4.0-11.0) 10^3/uL Hgb 9.8 L 9.5 L (14.0-18.0) g/dL Hct 31.0 L 30.6 L (42.0-54.0) % Plt Count 151 135 L (150-450) 10^3/uL BMP 08/16/23 08/17/23 22:04 04:43 Sodium 138 138 Potassium 4.7 4.5 Chloride 104 106 Carbon Dioxide 21.7 19.6 L BUN 106.0 H* 110.0 H* Creatinine 5.76 H* 5.67 H* Glucose 110 H 129 H Calcium 10.0 9.8 Liver Function 08/17/23 Range/Units 04:43 Total Bilirubin 0.4 (0.2-1.0) mg/dL AST 20 (15-37) U/L ALT 43 (16-63) U/L Alkaline Phosphatase 126 H (46-116) U/L Albumin 2.6 L (3.4-5.0) g/dL Urine 08/16/23 Range/Units 23:23 Urine Color Yellow (YELLOW) Urine Clarity Clear (CLEAR) Urine pH 7.5 (5.0-9.0) Ur Specific [place] 1.015 (1.005-1.025) Urine Protein 100 A (NEG/TRACE) mg/dL Urine Glucose (UA) 100 A (NEGATIVE) mg/dL Assessment and Plan Assessment and Plan (1) Gross hematuria: Assessment and Plan: Gross hematuria - improving slowly. Hb stable. Monitor H&H. Discussed with Urology - no need for CBI or to chage catheter. Monitor and if hematuria resolved and Hb remains stable, can be discharged (2) Catheter-associated urinary tract infection: Assessment and Plan: Chronic indwelling catheter - UA c/w UTI. Urine cx pending On IV rocephin Qualifiers: Indwelling urinary catheter type: indwelling urethral catheter Encounter type: subsequent encounter Qualified Code(s): T83.511D - Infection and inflammatory reaction due to indwelling urethral catheter, subsequent encounter; N39.0 - Urinary tract infection, site not specified (3) Dehydration: Assessment and Plan: On IVF. Can d/w IVF. Improved with overnight IV hydration (4) Hypothyroid: Assessment and Plan: C/w synthyroid Qualifiers: Hypothyroidism type: unspecified Qualified Code(s): E03.9 - Hypothyroidism, unspecified (5) HLD (hyperlipidemia): Assessment and Plan: C/w lipitor Qualifiers: Hyperlipidemia type: unspecified Qualified Code(s): E78.5 - Hyperlipidemia, unspecified (6) HTN (hypertension): Assessment and Plan: At goal. C/w home medications Qualifiers: Hypertension type: primary hypertension Qualified Code(s): I10 - Essential (primary) hypertension (7) Anemia in CKD (chronic kidney disease): Assessment and Plan: Hb at baseline. Monitor closely. Qualifiers: Chronic kidney disease stage: stage 5, not on chronic dialysis Qualified Code(s): N18.5 - Chronic kidney disease, stage 5; D63.1 - Anemia in chronic kidney disease (8) Chronic indwelling Wooten catheter: Assessment and Plan: Outpatient f/u with Urology. (9) H/O: CVA (cerebrovascular accident): Assessment and Plan: ASA on hold due to hematuria. C/w statin (10) CKD (chronic kidney disease) stage 5, GFR less than 15 ml/min: Assessment and Plan: Renal function at baseline. Monitor. (11) T2DM (type 2 diabetes mellitus): Assessment and Plan: C/w SSI Qualifiers: Diabetes mellitus moth exterminator insulin use: with snf use Diabetes mellitus complication status: with kidney complications Diabetes mellitus complication detail: with chronic kidney disease Chronic kidney disease stage: stage 5, not on chronic dialysis Qualified Code(s): E11.22 - Type 2 diabetes mellitus with diabetic chronic kidney disease; N18.5 - Chronic kidney disease, stage 5; Z79.4 - moth exterminator (current) use of insulin Urinary Catheter Management Urinary Catheter Management Urethral: Cath placed during this visit: no
[2023-08-17] MEDS: CEFTRIAXONE 1,000 MG in 0.9 % SODIUM CHLORIDE 50 ML 100 MG IV (12:57)
[2023-08-17 13:09] LABS: Hematocrit 29.2 % (42.0-54.0); Hemoglobin 9.2 g/dL (14.0-18.0)
--- OUTSIDE RECORDS SUMMARY | 2023-08-17 16:03 | XMS_ITS | CCD ---
Author Organization [facility] Care Team Providers Care Instructional Support Assistant Name Role Phone Unavailable Primary Care Provider [...] UnavailYOAN Valle Consult[employer] Unavailable PAY ., DR GRAVSE Consulting Unavailable SHAIKH Irasema HUNTLEY Attending Unavailable [...] (antibiotic) (1 source) Penicillins Drug Allergy 02-06-20 [facility] (1 source) Penicillins Propensity to adverse reactions to drug 02-06-20 [facility] [place] (2 sources) Penicillin; Translations: [penicillin] Drug Allergy [facility] Repository (2 sources) Sulfamethoxazole / Trimethoprim; Translations: [Bactrim] Drug Allergy [facility] Repository (1 source) No Known Medication Allergies; Translations: [No Known Medication Allergies] Propensity to adverse reactions (disorder) [facility] Repository (3 sources) Penicillin G Drug Allergy Unknown [facility] Other (3 sources) Sulfamethoxazole / Trimethoprim Drug Allergy Unknown [facility] Other (1 source) Penicillins Drug allergy (disorder) 08-31-[address] [facility] Repository (1 source) Sulfamethoxazole Drug Allergy 08-31-[address] [facility] Repository (1 source) Trimethoprim Drug Allergy 08-31-[address] 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 [address] [facility]: Rao Espinosa MD UA w/Reflex Cultureon 2022 Bilirubin, SemiQt,Ur Negative Normal NEG [facility] Comment on above: Performed By: #### U RADHAO, UAX #### [facility] [address] [place] [address] [facility]: Rao Espinosa MD Blood, Urine 2+ Abnormal NEG [facility] Comment on above: Performed By: #### U RADHAO, UAX #### [facility] [address] [place] [address] [facility]: Rao Espinosa MD Clarity (U) Cloudy Abnormal CLEAR [facility] Comment on above: Performed By: #### U RADHAO, UAX #### [facility] [address] [place], [place] [id number] [facility]: Rao Espinosa MD Color (U) Yellow Normal YEL [facility] Comment on above: Performed By: #### U MICAO, UAX #### [facility] [address] [place], [place] [id number] [facility]: Rao Espinosa MD Glucose Ql (U) TRACE Abnormal NEG [facility] Comment on above: Performed By: #### U MICAO, UAX #### [facility] [address] [place], [place] [id number] [facility]: Rao Espinosa MD Ketones Ql (U) Negative Normal NEG [facility] Comment on above: Performed By: #### U MICAO, UAX #### [facility] [address] [place] [address] [place], [place] [id number] [facility]: Rao Espinosa MD Leukocyte esterase Test strip Ql (U) LARGE Abnormal NEG [facility] Comment on above: Performed By: #### U MICAO, UAX #### [facility] [address] [place] [address] [place], [place] [id number] [facility]: Rao Espinosa MD Nitrite,Ur Positive Abnormal NEG [facility] Comment on above: Performed By: #### U MICAO, UAX #### [facility] [address] [place], [place] [id number] [facility]: Rao Espinosa MD PH,Ur 7.0 Normal 5.0-9.0 [facility] Comment on above: Performed By: #### U MICAO, UAX #### [facility] [address] [place] [address] [place], [place] [id number] [facility]: Rao Espinosa MD Protein Ql (U) 1+ mg/dL Abnormal NEG [facility] Comment on above: Performed By: #### U MICAO, UAX #### [facility] [address] [place], [place] [id number] [facility]: Rao Espinosa MD Spec. [place],Ur 1.010 Normal 1.010-1.020 [facility] Comment on above: Performed By: #### U MICAO, UAX #### [facility] [address] [place], [place] [phone] [facility]: Rao Espinosa MD Urobilinogen,Ur Normal Normal 0.0-1.0 [facility] Comment on above: Performed By: #### U MICAO, UAX #### [facility] [address] [place], [place] [phone] [facility]: Rao Espinosa MD Urinalysis,Microon 3 Bacteria 3+ Abnormal NONE [facility] Comment on above: Performed By: #### U MICAO, UAX #### [facility] [address] [place], [place] [id number] [facility]: Rao Espinosa MD Epithelial cells LM Ql (Urine sed) 0 TO 2 Normal 0-5 [facility] Comment on above: Performed By: #### U MICAO, UAX #### [facility] [address] [place], [place] [id number] [facility]: Rao Espinosa MD Urine RBC's 5 TO 10 Normal 0-2 [facility] Comment on above: Performed By: #### U MICAO, UAX #### [facility] [address] [place], [place] [id number] [facility]: Rao Espinosa MD Urine WBC's GREATER THAN 100 Normal 0-5 [facility] Comment on above: Performed By: #### U MICAO, UAX #### [facility] [address] [place] [address] [facility]: Rao Espinosa MD Glucose Poct Glucometerson 0 09-04-2022 Glucose [Mass/Vol] 122 mg/dL Normal [facility] Comment on above: Result Comment: [facility] Glucose Reference Range is dependent on time and content of last meal. Glucose of more than 200 mg/dL in a nonstressed, ambulatory subject supports the diagnosis of Diabetes Mellitus. PERFORMED BY: [facility] [address] [place] [address] PATHOLOGIST EYE PHYSICIAN BRANDEN WHATLEY M.D. Performed By: #### G LULS #### Point of Care testing , Renal Function Panelon 09-04 Albumin [Mass/Vol] 2.4 g/dL Low 3.5-5.7 [facility] Comment on above: Performed By: #### G LULS #### Point of Care testing , Anion gap [Moles/Vol] 14.8 mmol/L Normal 6.0-15.0 [facility] Comment on above: Performed By: #### G LULS #### Point of Care testing , Calcium [Mass/Vol] 8.6 mg/dL Normal 8.6-10.3 [facility] Comment on above: Performed By: #### G LULS #### Point of Care testing , Chloride [Moles/Vol] 99 mmol/L Normal 98-107 [facility] Comment on above: Performed By: #### G LULS #### Point of Care testing , CO2 [Moles/Vol] 24.7 mmol/L Normal 21.0-31.0 [facility] Comment on above: Performed By: #### G LULS #### Point of Care testing , Creatinine [Mass/Vol] 6.52 mg/dL Significan t change up 0.70-1.[address] [facility] Comment on above: Performed By: #### G LULS #### Point of Care testing , Creatinine Clr Calc Pharmacy 16.01 [facility] Comment on above: Result Comment: PERF ORMED BY: [facility] [address] [place] [address] PATHOLOGIST EYE PHYSICIAN JIANLAN SUN M.D. Performed By: #### G LULS #### Point of Care testing , GFR/1.73 sq M.predicted MDRD (S/P/Bld) [Vol rate/Area] 8.483 mL/min/{1.73_m2} Normal [facility] Comment on above: Performed By: #### G LULS #### Point of Care testing , Glucose [Mass/Vol] 115 mg/dL High 70-100 [facility] Comment on above: Result Comment: [place] Glucose Reference Range is dependent on time and content of last meal. Glucose of more than 200 mg/dL in a nonstressed, ambulatory subject supports the diagnosis of Diabetes Mellitus. ADA recommended reference range Performed By: #### G LULS #### Point of Care testing , Phosphate [Mass/Vol] 6.4 mg/dL Normal 3.7-7.2 [facility] Comment on above: Performed By: #### G LULS #### Point of Care testing , Potassium [Moles/Vol] 4.5 mmol/L Normal 3.5-5.1 [facility] Comment on above: Performed By: #### G LULS #### Point of Care testing , Sodium [Moles/Vol] 134 mmol/L Low 136-145 [facility] Comment on above: Performed By: #### G LULS #### Point of Care testing , Urea nitrogen [Mass/Vol] 76 mg/dL High 7-[address] [facility] Comment on above: Performed By: #### G LULS #### Point of Care testing , [facility] SARS-CoV-2 (COVID-19) RNA JASON+probe Ql (Unsp spec) Negative Normal Negative [facility] Comment on above: Order Comment: Healt hcare Worker?: N Result Comment: Testing for SARS-CoV-2 by RT-PCR This test was developed and its performance characteristics determined by [employer] and validated at the [facility]. This test has not been FDA [...] is terminated or revoked sooner. PERFORMED BY: [place] [address] PATHOLOGIST EYE PHYSICIAN BRANDEN WHATLEY M.D. Performed By: #### F E and TIBC, [id number], ODALIS #### [address] Glucose Poct Glucometerson 0 09-03-2022 Glucose [Mass/Vol] 152 mg/dL Normal [facility] Comment on above: Result Comment: [facility] Glucose Reference Range is dependent on time and content of last meal. Glucose of more than 200 mg/dL in a nonstressed, ambulatory subject supports the diagnosis of Diabetes Mellitus. PERFORMED BY: [place] [address] PATHOLOGIST EYE PHYSICIAN BRANDEN WHATLEY M.D. Performed By: #### G LULS #### Point of Care testing , Glucose [Mass/Vol] 111 mg/dL Normal [facility] Comment on above: Result Comment: [facility] Glucose Reference Range is dependent on time and content of last meal. Glucose of more than 200 mg/dL in a nonstressed, ambulatory subject supports the diagnosis of Diabetes Mellitus. PERFORMED BY: [place] [address] PATHOLOGIST EYE PHYSICIAN BRANDEN WHATLEY M.D. Performed By: #### G LULS #### Point of Care testing , Glucose [Mass/Vol] 106 mg/dL Normal [facility] Comment on above: Result Comment: [facility] Glucose Reference Range is dependent on time and content of last meal. Glucose of more than 200 mg/dL in a nonstressed, ambulatory subject supports the diagnosis of Diabetes Mellitus. PERFORMED BY: [facility] [address] [place] [address] PATHOLOGIST EYE PHYSICIAN BRANDEN WHATLEY M.D. Performed By: #### G LULS #### Point of Care testing , Glucose [Mass/Vol] 140 mg/dL Normal [facility] Comment on above: Result Comment: [facility] Glucose Reference Range is dependent on time and content of last meal. Glucose of more than 200 mg/dL in a nonstressed, ambulatory subject supports the diagnosis of Diabetes Mellitus. PERFORMED BY: [facility] [address] [place] [address] PATHOLOGIST EYE PHYSICIAN BRANDEN WHATLEY M.D. Performed By: #### G LULS #### Point of Care testing , Hemogram CBC Without Diffon 09-03-2022 Erythrocyte distribution width (RBC) [Ratio] 14.9 % High 12.0-14.[address] [facility] Comment on above: Performed By: #### G LULS #### Point of Care testing , Hematocrit (Bld) [Volume fraction] 25.1 % Low 38.8-50.[address] [facility] Comment on above: Performed By: #### G LULS #### Point of Care testing , Hemoglobin (Bld) [Mass/Vol] 8.4 g/dL Low 13.0-17.[address] [facility] Comment on above: Performed By: #### G LULS #### Point of Care testing , MCH (RBC) [Entitic mass] 29.5 pg Normal 27.5-35.[address] [facility] Comment on above: Performed By: #### G LULS #### Point of Care testing , MCV (RBC) [Entitic vol] 87.8 fL Normal 83.5-[address] [facility] Comment on above: Performed By: #### G LULS #### Point of Care testing , Mean Corpuscular HGB Conc 33.5 g/dL Normal 32.5-35.[address] [facility] Comment on above: Performed By: #### G LULS #### Point of Care testing , Platelet mean volume (Bld) [Entitic vol] 8.0 fL Normal 6.6-10.[address] [facility] Comment on above: Result Comment: PERF ORMED BY: [place] [address] PATHOLOGIST EYE PHYSICIAN BRANDEN WHATLEY M.D. Performed By: #### G LULS #### Point of Care testing , Platelets (Bld) [#/Vol] 111 10*3/uL Significant change down 150-[address] [facility] Comment on above: Performed By: #### G LULS #### Point of Care testing , RBC (Bld) [#/Vol] 2.86 10*6/uL Low 3.90-5.60 [facility] Comment on above: Performed By: #### G LULS #### Point of Care testing , WBC (Bld) [#/Vol] 8.1 10*3/uL Normal 4.1-10.5 [facility] Comment on above: Performed By: #### G LULS #### Point of Care testing , Hepatitis Acute Panelon 08-13 HBsAg Screen Negative Normal Negative [facility] Comment on above: Order Comment: pt no t in room Performed By: #### F E and TIBC, [id number], ODALIS #### [facility] [address] [place] [address] Hepatitis A Antibody IgM Negative Normal Negative [facility] Comment on above: Order Comment: pt no t in room Performed By: #### F E and TIBC, [id number], ODALIS #### [facility] [address] [place] [address] Hepatitis B Core Antibody IgM Negative Normal Negative [facility] Comment on above: Order Comment: pt no t in room Result Comment: Ve rified by repeat analysis Performed By: #### F E and TIBC, [id number], ODALIS #### [facility] [address] [place] [address] Hepatitis C Virus Antibody Non-Reactive Normal Non Reactive [facility] Comment on above: Order Comment: pt no t in room Performed By: #### F E and TIBC, [id number], ODALIS #### [address] Interpretation Hepatitis C Normal . [facility] Comment on above: Order Comment: pt no t in room Result Comment: Not infected with HCV unless early or acute infection is suspected (which may be delayed in an immunocompromised individual), or other evidence exists to indicate HCV infection. Performed By: #### F E and TIBC, [id number], ODALIS #### [address] Hepatitis B Core Antibodyon 09-03-2022 Hepatitis B Core Antibody Negative Normal Negative [facility] Comment on above: Order Comment: pt no t in room Result Comment: Perf ormed at: - [facility] [id number] [facility]: Mata Pérez PhD, Phone: [phone] PERFORMED BY: [place] [address] PATHOLOGIST EYE PHYSICIAN BRANDEN WHATLEY M.D. Performed By: #### F E and TIBC, [id number], ODALIS #### [address] Hepatitis B Surface Antibody on 09-03-2022 Hepatitis B Surface Antibody Reactive Normal . [facility] Comment on above: Order Comment: pt no t in room Result Comment: Non Reactive: Inconsistent with immunity, less than 10 mIU/mL Reactive: Consistent with immunity, greater than 9.9 mIU/mL Performed By: #### F E and TIBC, [id number], ODALIS #### [facility] [address] [place] [address] Renal Function Panelon 09-03 Albumin [Mass/Vol] 2.4 g/dL Low 3.5-5.7 [facility] Comment on above: Performed By: #### G LULS #### Point of Care testing , Anion gap [Moles/Vol] 16.5 mmol/L High 6.0-15.0 [facility] Comment on above: Performed By: #### G LULS #### Point of Care testing , Calcium [Mass/Vol] 8.7 mg/dL Normal 8.6-10.3 [facility] Comment on above: Performed By: #### G LULS #### Point of Care testing , Chloride [Moles/Vol] 101 mmol/L Normal 98-107 [facility] Comment on above: Performed By: #### G LULS #### Point of Care testing , CO2 [Moles/Vol] 22.4 mmol/L Normal 21.0-31.0 [facility] Comment on above: Performed By: #### G LULS #### Point of Care testing , Creatinine [Mass/Vol] 8.19 mg/dL Significan t change up 0.70-1.[address] [facility] Comment on above: Performed By: #### G LULS #### Point of Care testing , Creatinine Clr Calc Pharmacy 12.70 [facility] Comment on above: Result Comment: PERF ORMED BY: [facility] [address] [place] [address] PATHOLOGIST EYE PHYSICIAN BRANDEN WHATLEY M.D. Performed By: #### G LULS #### Point of Care testing , GFR/1.73 sq M.predicted MDRD (S/P/Bld) [Vol rate/Area] 6.452 mL/min/{1.73_m2} [facility] Comment on above: Performed By: #### G LULS #### Point of Care testing , Glucose [Mass/Vol] 112 mg/dL High 70-100 [facility] Comment on above: Result Comment: [place] Glucose Reference Range is dependent on time and content of last meal. Glucose of more than 200 mg/dL in a nonstressed, ambulatory subject supports the diagnosis of Diabetes Mellitus. ADA recommended reference range Performed By: #### G LULS #### Point of Care testing , Phosphate [Mass/Vol] 6.7 mg/dL Normal 3.7-7.2 [facility] Comment on above: Performed By: #### G LULS #### Point of Care testing , Potassium [Moles/Vol] 4.9 mmol/L Normal 3.5-5.1 [facility] Comment on above: Performed By: #### G LULS #### Point of Care testing , Sodium [Moles/Vol] 135 mmol/L Low 136-145 [facility] Comment on above: Performed By: #### G LULS #### Point of Care testing , Urea nitrogen [Mass/Vol] 99 mg/dL High 7-[address] [facility] Comment on above: Performed By: #### G LULS #### Point of Care testing , Stool Occult Blood (Immuno)o n 09-03-2022 Stool Occult Blood (Immuno) Occult Blood (Immuno) Positive for Occult Blood by Immunochemical Methodology Reference range = Negative PERFORMED BY: [place] [address] PATHOLOGIST EYE PHYSICIAN BRANDEN WHATLEY M.D. [facility] Comment on above: Performed By: #### G LULS #### Point of Care testing , XR chest 1V portableon 09-03 XR chest 1V portable [facility] [place] [address] XRay Report Signed Patient: Matt Kelly MR#: [id number] : 1950 Acct:[id number] Age/Sex: 71 / M ADM Date: 08/30/22 Loc: Room: [address] [place] [address] Type: ADM IN Attending Dr: Eldon López [...] Rafi Morales M.D.09/03/2022 3:02 PM Dictation Location: [place] [address] Transcribed By: [facility] 09/03/22 1502 Dictated By: Rafi Morales II, MD 09/03/22 1501 Signed By: 09/03/22 [address] [facility] Complete Blood Count Auto Di ffon 09-02-2022 Basophils (Bld) [#/Vol] 0.1 10*3/uL Normal 0.0-0.[address] [facility] Comment on above: Result Comment: PERF ORMED BY: [facility] [address] [place] [address] PATHOLOGIST EYE PHYSICIAN BRANDEN WHATLEY M.D. Performed By: #### G LULS #### Point of Care testing , Basophils/100 WBC (Bld) 0.4 % Normal . [facility] Comment on above: Performed By: #### G LULS #### Point of Care testing , Eosinophils (Bld) [#/Vol] 0.1 10*3/uL Normal 0.0-0.[address] [facility] Comment on above: Performed By: #### G LULS #### Point of Care testing , Eosinophils/100 WBC (Bld) 0.5 % Normal . [facility] Comment on above: Performed By: #### G LULS #### Point of Care testing , Erythrocyte distribution width (RBC) [Ratio] 14.8 % Normal 12.0-14.[address] [facility] Comment on above: Performed By: #### G LULS #### Point of Care testing , Hematocrit (Bld) [Volume fraction] 26.7 % Low 38.8-50.[address] [facility] Comment on above: Performed By: #### G ZAC #### Point of Care testing , Hemoglobin (Bld) [Mass/Vol] 8.7 g/dL Low 13.0-17.[address] [facility] Comment on above: Performed By: #### G SUSIELS #### Point of Care testing , Lymphocytes (Bld) [#/Vol] 0.6 10*3/uL Low 1.00-4.[address] [facility] Comment on above: Performed By: #### G SUSIELS #### Point of Care testing , Lymphocytes/100 WBC (Bld) 3.6 % Normal . [facility] Comment on above: Performed By: #### G SUSIELS #### Point of Care testing , MCH (RBC) [Entitic mass] 28.6 pg Normal 27.5-35.[address] [facility] Comment on above: Performed By: #### Young RICHARDSLS #### Point of Care testing , MCV (RBC) [Entitic vol] 87.9 fL Normal 83.5-[address] [facility] Comment on above: Performed By: #### Young FRANK #### Point of Care testing , Mean Corpuscular HGB Conc 32.5 g/dL Normal 32.5-35.[address] [facility] Comment on above: Performed By: #### G ZAC #### Point of Care testing , Monocytes (Bld) [#/Vol] 0.9 10*3/uL High 0.0-0.[address] [facility] Comment on above: Performed By: #### G ZAC #### Point of Care testing , Monocytes/100 WBC (Bld) 5.9 % Normal . [facility] Comment on above: Performed By: #### G SUSIELS #### Point of Care testing , Neutrophils (Bld) [#/Vol] 13.9 10*3/uL High 1.8-7.[address] [facility] Comment on above: Performed By: #### G SUSIELS #### Point of Care testing , Neutrophils/100 WBC (Bld) 89.6 % Normal . [facility] Comment on above: Performed By: #### G ZAC #### Point of Care testing , NRBC% 0.1 /100{WBC} Normal 0-0.[address] [facility] Comment on above: Performed By: #### G ZAC #### Point of Care testing , Platelet mean volume (Bld) [Entitic vol] 7.8 fL Normal 6.6-10.[address] [facility] Comment on above: Performed By: #### G ZAC #### Point of Care testing , Platelets (Bld) [#/Vol] 146 10*3/uL Low 150-[address] [facility] Comment on above: Performed By: #### G ZAC #### Point of Care testing , RBC (Bld) [#/Vol] 3.04 10*6/uL Low 3.90-5.60 [facility] Comment on above: Performed By: #### Young FRANK #### Point of Care testing , WBC (Bld) [#/Vol] 15.5 10*3/uL High 4.1-10.5 [facility] Comment on above: Performed By: #### Young FRANK #### Point of Care testing , Comprehensive Metabolic Pane real 09-02-2022 Albumin [Mass/Vol] 2.5 g/dL Low 3.5-5.7 [facility] Comment on above: Performed By: #### C BC, RENAL, CMP ####[facility] [id number] [place] [address] [facility] Albumin/Globulin [Mass ratio] 0.8 {ratio} Normal [facility] Comment on above: Performed By: #### C BC, RENAL, CMP ####[facility] [address] [place] [address] [facility] ALP [Catalytic activity/Vol] 97 U/L Normal 34-[address] [facility] Comment on above: Performed By: #### C BC, RENAL, CMP ####[facility] [address] [place] [address] [facility] ALT [Catalytic activity/Vol] 27 U/L Normal 7-[address] [facility] Comment on above: Performed By: #### C BC, RENAL, CMP ####[facility] [place] [address] [facility] Anion gap [Moles/Vol] 15.2 mmol/L High 6.0-15.0 [facility] Comment on above: Performed By: #### C BC, RENAL, CMP ####[place] [id number] [place] [address] [facility] AST [Catalytic activity/Vol] 14 U/L Normal 13-[address] [facility] Comment on above: Performed By: #### C BC, RENAL, CMP ####[place] [address] [place] [address] [facility] Bilirubin [Mass/Vol] 0.3 mg/dL Normal 0.3-1.0 [facility] Comment on above: Performed By: #### C BC, RENAL, CMP ####[address] [address] [facility] Calcium [Mass/Vol] 8.5 mg/dL Low 8.6-10.3 [facility] Comment on above: Performed By: #### C BC, RENAL, CMP ####[address] [address] [facility] Chloride [Moles/Vol] 106 mmol/L Normal 98-107 [facility] Comment on above: Performed By: #### C BC, RENAL, CMP ####[place] [address] [place] [address] [facility] CO2 [Moles/Vol] 20.3 mmol/L Low 21.0-31.0 [facility] Comment on above: Performed By: #### C BC, RENAL, CMP ####[address] [address] [facility] Creatinine [Mass/Vol] 6.98 mg/dL High 0.70-1.30 [facility] Comment on above: Performed By: #### C BC, RENAL, CMP ####[place] [place] [address] [facility] Creatinine Clr Calc Pharmacy 14.[address] [facility] Comment on above: Performed By: #### C BC, RENAL, CMP ####[place] [address] [place] [id number] [facility] GFR/1.73 sq M.predicted MDRD (S/P/Bld) [Vol rate/Area] 7.816 mL/min/{1.73_m2} [facility] Comment on above: Performed By: #### C BC, RENAL, CMP ####[place] [address] [place] [id number] [facility] Globulin (S) [Mass/Vol] 3.1 g/dL [facility] Comment on above: Performed By: #### C BC, RENAL, CMP ####[place] [address] [place] [id number] [facility] Glucose [Mass/Vol] 118 mg/dL High 70-100 [facility] Comment on above: Result Comment: [facility] Glucose Reference Range is dependent on time and content of last meal. Glucose of more than 200 mg/dL in a nonstressed, ambulatory subject supports the diagnosis of Diabetes Mellitus. ADA recommended reference range Performed By: #### C BC, RENAL, CMP ####[place] [id number] [facility] Potassium [Moles/Vol] 5.5 mmol/L High 3.5-5.1 [facility] Comment on above: Performed By: #### C BC, RENAL, CMP ####[place] [id number] [facility] Protein [Mass/Vol] 5.6 g/dL Low 6.4-8.9 [facility] Comment on above: Performed By: #### C BC, RENAL, CMP ####[place] [id number] [facility] Sodium [Moles/Vol] 136 mmol/L Normal 136-145 [facility] Comment on above: Performed By: #### C BC, RENAL, CMP ####[place] [id number] [facility] Urea nitrogen [Mass/Vol] 92 mg/dL High 7-[address] [facility] Comment on above: Performed By: #### C BC, RENAL, CMP ####[facility] [address] [place] [address] [place] Consultation Noteon 09-03-19 Consultation Note [id number] .[id number]:127 Normal [facility] Glucose Poct Glucometerson 0 09-02-2022 Glucose [Mass/Vol] 161 mg/dL Normal [facility] Comment on above: Result Comment: [facility] Glucose Reference Range is dependent on time and content of last meal. Glucose of more than 200 mg/dL in a nonstressed, ambulatory subject supports the diagnosis of Diabetes Mellitus. PERFORMED BY: [facility] [address] [place] [id number] PATHOLOGIST EYE PHYSICIAN BRANDEN WHATLEY M.D. Performed By: #### G LULS #### Point of Care testing , Commemt1 Glu2: Cleaned Meter [facility] Comment on above: Result Comment: PERF ORMED BY: [facility] [address] [place] [address] PATHOLOGIST EYE PHYSICIAN BRANDEN WHATLEY M.D. Performed By: #### G LULS #### Point of Care testing , Glucose [Mass/Vol] 244 mg/dL Normal [facility] Comment on above: Result Comment: [facility] Glucose Reference Range is dependent on time and content of last meal. Glucose of more than 200 mg/dL in a nonstressed, ambulatory subject supports the diagnosis of Diabetes Mellitus. Performed By: #### G LULS #### Point of Care testing , Insurance Correspondence Off iceon 09-02-2022 Insurance Correspondence Office [id number]:127 Normal [facility] Renal Function Panelon 09-02 Phosphate [Mass/Vol] 6.5 mg/dL Normal 3.7-7.2 [facility] Comment on above: Result Comment: PERF ORMED BY: [facility] [address] [place] [id number] PATHOLOGIST EYE PHYSICIAN BRANDEN WHATLEY M.D. Performed By: #### C BC, RENAL, CMP ####[address] Complete Blood Count Auto Di ffon 09-01-2022 Basophils (Bld) [#/Vol] 0.1 10*3/uL Normal 0.0-0.[address] [facility] Comment on above: Result Comment: PERF ORMED BY: [facility] [address] [place] [address] PATHOLOGIST EYE PHYSICIAN BRANDEN WHATLEY M.D. Performed By: #### R ENAL, CBC, CMP ####[address] Basophils/100 WBC (Bld) 1.2 % Normal . [facility] Comment on above: Performed By: #### R ENAL, CBC, CMP ####[address] Eosinophils (Bld) [#/Vol] 0.3 10*3/uL Normal 0.0-0.[address] [facility] Comment on above: Performed By: #### R ENAL, CBC, CMP ####[address] Eosinophils/100 WBC (Bld) 5.5 % Normal . [facility] Comment on above: Performed By: #### R ENAL, CBC, CMP ####[address] Erythrocyte distribution width (RBC) [Ratio] 14.7 % Normal 12.0-14.[address] [facility] Comment on above: Performed By: #### R ENAL, CBC, CMP ####[address] Hematocrit (Bld) [Volume fraction] 25.2 % Low 38.8-50.[address] [facility] Comment on above: Performed By: #### R ENAL, CBC, CMP ####[address] Hemoglobin (Bld) [Mass/Vol] 8.3 g/dL Low 13.0-17.[address] [facility] Comment on above: Performed By: #### R ENAL, CBC, CMP ####[address] Lymphocytes (Bld) [#/Vol] 0.9 10*3/uL Low 1.00-4.[address] [facility] Comment on above: Performed By: #### R ENAL, CBC, CMP ####[address] Lymphocytes/100 WBC (Bld) 14.6 % Normal . [facility] Comment on above: Performed By: #### R ENDEVORA, CBC, CMP ####[address] MCH (RBC) [Entitic mass] 29.0 pg Normal 27.5-35.[address] [facility] Comment on above: Performed By: #### R ENAL, CBC, CMP ####[address] MCV (RBC) [Entitic vol] 87.7 fL Normal 83.5-[address] [facility] Comment on above: Performed By: #### R ENAL, CBC, CMP ####[address] Mean Corpuscular HGB Conc 33.0 g/dL Normal 32.5-35.[address] [facility] Comment on above: Performed By: #### R ENAL, CBC, CMP ####[address] Monocytes (Bld) [#/Vol] 0.8 10*3/uL Normal 0.0-0.[address] [facility] Comment on above: Performed By: #### R ENAL, CBC, CMP ####[address] Monocytes/100 WBC (Bld) 12.6 % Normal . [facility] Comment on above: Performed By: #### R ENAL, CBC, CMP ####[address] Neutrophils (Bld) [#/Vol] 4.0 10*3/uL Normal 1.8-7.[address] [facility] Comment on above: Performed By: #### R ENAL, CBC, CMP ####[address] Neutrophils/100 WBC (Bld) 66.1 % Normal . [facility] Comment on above: Performed By: #### R ENAL, CBC, CMP ####[address] NRBC% 0.1 /100{WBC} Normal 0-0.[address] [facility] Comment on above: Performed By: #### R ENAL, CBC, CMP ####[address] Platelet mean volume (Bld) [Entitic vol] 7.9 fL Normal 6.6-10.[address] [facility] Comment on above: Performed By: #### R ENAL, CBC, CMP ####[address] Platelets (Bld) [#/Vol] 145 10*3/uL Low 150-[address] [facility] Comment on above: Performed By: #### R ENAL, CBC, CMP ####[address] RBC (Bld) [#/Vol] 2.87 10*6/uL Low 3.90-5.60 [facility] Comment on above: Performed By: #### R ENAL, CBC, CMP ####[address] WBC (Bld) [#/Vol] 6.1 10*3/uL Normal 4.1-10.5 [facility] Comment on above: Performed By: #### R ENAL, CBC, CMP ####[address] Comprehensive Metabolic Pane real 09-01-2022 Albumin [Mass/Vol] 2.7 g/dL Low 3.5-5.7 [facility] Comment on above: Performed By: #### R TELLY, CBC, CMP ####[facility] [address] [place] [address] [facility] Albumin/Globulin [Mass ratio] 0.9 {ratio} Normal [facility] Comment on above: Performed By: #### R TELLY, CBC, CMP ####[facility] [address] [place] [address] [facility] ALP [Catalytic activity/Vol] 107 U/L High 34-[address] [facility] Comment on above: Performed By: #### R TELLY, CBC, CMP ####[facility] [id number] [place] [address] [facility] ALT [Catalytic activity/Vol] 32 U/L Normal 7-[address] [facility] Comment on above: Performed By: #### R TELLY, CBC, CMP ####[facility] [place] [address] [facility] Anion gap [Moles/Vol] 14.1 mmol/L Normal 6.0-15.0 [facility] Comment on above: Performed By: #### R TELLY, CBC, CMP ####[facility] [place] [address] [facility] AST [Catalytic activity/Vol] 21 U/L Normal 13-[address] [facility] Comment on above: Performed By: #### R TELLY, CBC, CMP ####[facility] [address] [place] [address] [facility] Bilirubin [Mass/Vol] 0.4 mg/dL Normal 0.3-1.0 [facility] Comment on above: Performed By: #### R TELLY, CBC, CMP ####[facility] [address] [place] [address] [facility] Calcium [Mass/Vol] 8.9 mg/dL Normal 8.6-10.3 [facility] Comment on above: Performed By: #### R TELLY, CBC, CMP ####[place] [address] [place] [id number] [facility] Chloride [Moles/Vol] 110 mmol/L High 98-107 [facility] Comment on above: Performed By: #### R JANET VARNER, CMP ####[place] [address] [place] [id number] [facility] CO2 [Moles/Vol] 17.7 mmol/L Low 21.0-31.0 [facility] Comment on above: Performed By: #### Fadia VARNER CBC, CMP ####[address] Creatinine [Mass/Vol] 6.68 mg/dL Significan t change up 0.70-1.[address] [facility] Comment on above: Performed By: #### JANET WYNN, CMP ####[address] Creatinine Clr Calc Pharmacy 14.96 [facility] Comment on above: Performed By: #### R JANET VARNER, CMP ####[address] GFR/1.73 sq M.predicted MDRD (S/P/Bld) [Vol rate/Area] 8.239 mL/min/{1.73_m2} [facility] Comment on above: Performed By: #### JANET WYNN, CMP ####[address] Globulin (S) [Mass/Vol] 3.0 g/dL [facility] Comment on above: Performed By: #### R TELLY CBC, CMP ####[place] [id number] [facility] Glucose [Mass/Vol] 90 mg/dL Normal 70-100 [facility] Comment on above: Result Comment: [place] Glucose Reference Range is dependent on time and content of last meal. Glucose of more than 200 mg/dL in a nonstressed, ambulatory subject supports the diagnosis of Diabetes Mellitus. ADA recommended reference range Performed By: #### R TELLY CBC, CMP ####[facility] [address] [place] [address] [facility] Potassium [Moles/Vol] 4.8 mmol/L Normal 3.5-5.1 [facility] Comment on above: Performed By: #### R ENAL, CBC, CMP ####[place] [address] [place] [address] [facility] Protein [Mass/Vol] 5.7 g/dL Low 6.4-8.9 [facility] Comment on above: Performed By: #### R ENAL, CBC, CMP ####[place] [address] [place] [address] [facility] Sodium [Moles/Vol] 137 mmol/L Normal 136-145 [facility] Comment on above: Performed By: #### R ENAL, CBC, CMP ####[address] [address] [facility] Urea nitrogen [Mass/Vol] 83 mg/dL High 7-[address] [facility] Comment on above: Performed By: #### R ENAL, CBC, CMP ####[address] [address] [facility] Glucose Poct Glucometerson 0 09-01-2022 Glucose [Mass/Vol] 95 mg/dL Normal [facility] Comment on above: Result Comment: [facility] Glucose Reference Range is dependent on time and content of last meal. Glucose of more than 200 mg/dL in a nonstressed, ambulatory subject supports the diagnosis of Diabetes Mellitus. PERFORMED BY: [facility] [address] [place] [address] PATHOLOGIST EYE PHYSICIAN BRANDEN WHATLEY M.D. Performed By: #### G LULS #### Point of Care testing , Commemt1 Glu2: Cleaned Meter [facility] Comment on above: Result Comment: PERF ORMED BY: [facility] [address] [place] [id number] PATHOLOGIST EYE PHYSICIAN BRANDEN WHATLEY M.D. Performed By: #### G LULS #### Point of Care testing , Glucose [Mass/Vol] 96 mg/dL Normal [facility] Comment on above: Result Comment: [place] om Glucose Reference Range is dependent on time and content of last meal. Glucose of more than 200 mg/dL in a nonstressed, ambulatory subject supports the diagnosis of Diabetes Mellitus. Performed By: #### G LULS #### Point of Care testing , Glucose [Mass/Vol] 100 mg/dL Normal [facility] Comment on above: Result Comment: [place] om Glucose Reference Range is dependent on time and content of last meal. Glucose of more than 200 mg/dL in a nonstressed, ambulatory subject supports the diagnosis of Diabetes Mellitus. PERFORMED BY: [facility] [address] [place] [address] PATHOLOGIST EYE PHYSICIAN BRANDEN WHATLEY M.D. Performed By: #### G LULS ####Point of Care testing, Renal Function Panelon 09-01 Phosphate [Mass/Vol] 7.0 mg/dL Normal 3.7-7.2 [facility] Comment on above: Result Comment: PERF ORMED BY: [facility] [address] [place] [address] PATHOLOGIST EYE PHYSICIAN BRANDEN WHATLEY M.D. Performed By: #### R ENAL, CBC, CMP ####[facility] [id number] [place] [id number] [facility] ABO/Rh Retypeon 08-31-2022 ABO/RH Recheck Result Negative Normal [facility] Comment on above: Order Comment: NEEDS DRAWN Result Comment: PERF ORMED BY: [facility] [address] [place] [address] PATHOLOGIST EYE PHYSICIAN BRANDEN WHATLEY M.D. Basic Metabolic Panelon 08-13 Anion gap [Moles/Vol] 16.5 mmol/L High 6.0-15.0 [facility] Comment on above: Performed By: #### F E and TIBC, [id number], ODALIS #### [facility] [address] [place] [id number] [facility] Calcium [Mass/Vol] 8.3 mg/dL Low 8.6-10.3 [facility] Comment on above: Performed By: #### F E and TIBC, [id number], ODALIS #### [facility] [address] [place] [address] [place] Chloride [Moles/Vol] 111 mmol/L High 98-107 [facility] Comment on above: Performed By: #### F E and TIBC, [id number], ODALIS #### [facility] [address] [place] [address] [place] CO2 [Moles/Vol] 14.2 mmol/L Low 21.0-31.0 [facility] Comment on above: Performed By: #### F E and TIBC, [id number], ODALIS #### [facility] [address] Creatinine [Mass/Vol] 5.39 mg/dL Significan t change up 0.70-1.[address] [facility] Comment on above: Performed By: #### F E and TIBC, [id number], ODALIS #### [facility] [address] [place] [address] [place] Creatinine Clr Calc Pharmacy 18.62 [facility] Comment on above: Performed By: #### F E and TIBC, [id number], ODALIS #### [facility] [address] [place] [address] [place] GFR/1.73 sq M.predicted MDRD (S/P/Bld) [Vol rate/Area] 10.659 mL/min/{1.73_m2} [facility] Comment on above: Performed By: #### F E and TIBC, [id number], ODALIS #### [facility] [address] [place] [address] [place] Glucose [Mass/Vol] 104 mg/dL High 70-100 [facility] Comment on above: Result Comment: [place] Glucose Reference Range is dependent on time and content of last meal. Glucose of more than 200 mg/dL in a nonstressed, ambulatory subject supports the diagnosis of Diabetes Mellitus. ADA recommended reference range Performed By: #### F E and TIBC, [id number], ODALIS #### [facility] [address] Potassium [Moles/Vol] 4.7 mmol/L Normal 3.5-5.1 [facility] Comment on above: Performed By: #### F E and TIBC, [id number], ODALIS #### [facility] [address] Sodium [Moles/Vol] 137 mmol/L Normal 136-145 [facility] Comment on above: Performed By: #### F E and TIBC, [id number], ODALIS #### [facility] [address] Urea nitrogen [Mass/Vol] 73 mg/dL High 7- [facility] Comment on above: Performed By: #### F E and TIBC, [id number], ODALIS #### [address] Complete Blood Count Auto Di ffon 08-31-2022 Basophils (Bld) [#/Vol] 0.0 10*3/uL Normal 0.0-0.[address] [facility] Comment on above: Result Comment: PERF ORMED BY: [place] [address] PATHOLOGIST EYE PHYSICIAN BRANDEN WHATLEY M.D. Performed By: #### B MP, CBC, MG ####[place] [address] [place] Basophils/100 WBC (Bld) 0.8 % Normal . [facility] Comment on above: Performed By: #### B MP, CBC, MG ####[facility] [place] [address] [place] Eosinophils (Bld) [#/Vol] 0.2 10*3/uL Normal 0.0-0.[address] [facility] Comment on above: Performed By: #### B MP, CBC, MG ####[facility] [place] [address] [place] Eosinophils/100 WBC (Bld) 4.2 % Normal . [facility] Comment on above: Performed By: #### B MP, CBC, MG ####[address] Erythrocyte distribution width (RBC) [Ratio] 14.9 % High 12.0-14.[address] [facility] Comment on above: Performed By: #### B MP, CBC, MG ####[address] Hematocrit (Bld) [Volume fraction] 19.8 % Off scale low 38.8-50.[address] [facility] Comment on above: Result Comment: Crit ical Result HCT:19.8 called to and read back by: [id number] on 08/31/2022 11:09:15 by:SULY. Performed By: #### B MP, CBC, MG ####[address] Hemoglobin (Bld) [Mass/Vol] 6.4 g/dL Low 13.0-17.[address] [facility] Comment on above: Performed By: #### B MP, CBC, MG ####[address] Lymphocytes (Bld) [#/Vol] 0.8 10*3/uL Low 1.00-4.[address] [facility] Comment on above: Performed By: #### B MP, CBC, MG ####[address] Lymphocytes/100 WBC (Bld) 14.6 % Normal . [facility] Comment on above: Performed By: #### B MP, CBC, MG ####[place] [id number] [facility] MCH (RBC) [Entitic mass] 28.7 pg Normal 27.5-35.[address] [facility] Comment on above: Performed By: #### B MP, CBC, MG ####[place] [id number] [facility] MCV (RBC) [Entitic vol] 88.3 fL Normal 83.5-[address] [facility] Comment on above: Performed By: #### B MP, CBC, MG ####[address] Mean Corpuscular HGB Conc 32.5 g/dL Normal 32.5-35.[address] [facility] Comment on above: Performed By: #### B MP, CBC, MG ####[address] Monocytes (Bld) [#/Vol] 0.5 10*3/uL Normal 0.0-0.[address] [facility] Comment on above: Performed By: #### B MP, CBC, MG ####[address] Monocytes/100 WBC (Bld) 9.8 % Normal . [facility] Comment on above: Performed By: #### B MP, CBC, MG ####[address] Neutrophils (Bld) [#/Vol] 3.8 10*3/uL Normal 1.8-7.[address] [facility] Comment on above: Performed By: #### B MP, CBC, MG ####[address] Neutrophils/100 WBC (Bld) 70.6 % Normal . [facility] Comment on above: Performed By: #### B MP, CBC, MG ####[address] NRBC% 0.0 /100{WBC} Normal 0-0.[address] [facility] Comment on above: Performed By: #### B MP, CBC, MG ####[address] Platelet mean volume (Bld) [Entitic vol] 7.7 fL Normal 6.6-10.[address] [facility] Comment on above: Performed By: #### B MP, CBC, MG ####[address] Platelets (Bld) [#/Vol] 142 10*3/uL Low 150-[address] [facility] Comment on above: Performed By: #### B MP, CBC, MG ####[facility] [id number] RBC (Bld) [#/Vol] 2.24 10*6/uL Low 3.90-5.60 [facility] Comment on above: Performed By: #### B MP, CBC, MG ####[facility] [id number] WBC (Bld) [#/Vol] 5.4 10*3/uL Normal 4.1-10.5 [facility] Comment on above: Performed By: #### B MP, CBC, MG ####[facility] [id number] Ferritinon 08-31-2022 Ferritin [Mass/Vol] 551.8 ng/mL High 23.9-336.2 [facility] Comment on above: Performed By: #### F E and TIBC, [id number], ODALIS #### [facility] [address] Glucose Poct Glucometerson 0 08-31-2022 Commemt1 Glu2: Cleaned Meter [facility] Comment on above: Result Comment: PERF ORMED BY: [place] [address] PATHOLOGIST EYE PHYSICIAN BRANDEN WHATLEY M.D. Performed By: #### G LULS ####Point of Care testing, Glucose [Mass/Vol] 123 mg/dL Normal [facility] Comment on above: Result Comment: [facility] Glucose Reference Range is dependent on time and content of last meal. Glucose of more than 200 mg/dL in a nonstressed, ambulatory subject supports the diagnosis of Diabetes Mellitus. Performed By: #### G LULS ####Point of Care testing, Commemt1 Glu2: Cleaned Meter [facility] Comment on above: Result Comment: PERF ORMED BY: [facility] [address] [place] [address] PATHOLOGIST EYE PHYSICIAN BRANDEN WHATLEY M.D. Performed By: #### G LULS #### Point of Care testing , Glucose [Mass/Vol] 101 mg/dL Normal [facility] Comment on above: Result Comment: [place] om Glucose Reference Range is dependent on time and content of last meal. Glucose of more than 200 mg/dL in a nonstressed, ambulatory subject supports the diagnosis of Diabetes Mellitus. Performed By: #### G LULS #### Point of Care testing , Commemt1 Glu2: Cleaned Meter [facility] Comment on above: Result Comment: PERF ORMED BY: [place] [phone] PATHOLOGIST EYE PHYSICIAN BRANDEN WHATLEY M.D. Performed By: #### G LULS #### Point of Care testing , Glucose [Mass/Vol] 126 mg/dL Normal [facility] Comment on above: Result Comment: [place] om Glucose Reference Range is dependent on time and content of last meal. Glucose of more than 200 mg/dL in a nonstressed, ambulatory subject supports the diagnosis of Diabetes Mellitus. Performed By: #### G LULS #### Point of Care testing , Glucose [Mass/Vol] 123 mg/dL Normal [facility] Comment on above: Result Comment: [place] Glucose Reference Range is dependent on time and content of last meal. Glucose of more than 200 mg/dL in a nonstressed, ambulatory subject supports the diagnosis of Diabetes Mellitus. PERFORMED BY: [place] [phone] PATHOLOGIST EYE PHYSICIAN BRANDEN WHATLEY M.D. Performed By: #### F E and TIBC, [id number], ODALIS #### [address] Haptoglobinon 08-31-2022 Haptoglobin 189 mg/dL Normal 44-[address] [facility] Comment on above: Result Comment: PERF ORMED BY: [place] [phone] PATHOLOGIST EYE PHYSICIAN BRANDEN WHATLEY M.D. Performed By: #### G LULS #### Point of Care testing , Iron and TIBC Profileon 08-13 0-2022 % Iron Saturation 27.5 % Normal 20-50 [facility] Comment on above: Performed By: #### F E and TIBC, [id number], ODALIS #### [facility] [address] [place] [address] [place] Iron [Mass/Vol] 53 ug/dL Normal 50-[address] [facility] Comment on above: Performed By: #### F E and TIBC, [id number], ODALIS #### [facility] [address] Total Iron Binding Capacity 193 ug/dL Low 255-[address] [facility] Comment on above: Performed By: #### F E and TIBC, [id number], ODALIS #### [facility] [address] [place] [address] [place] Transferrin [Mass/Vol] 138 mg/dL Low 203-[address] [facility] Comment on above: Performed By: #### F E and TIBC, [id number], ODALIS #### [facility] [address] [place] [address] LDH Lactate Dehydrogenaseon 08-31-2022 LDH Lactate Dehydrogenase 100 U/L Low 140-[address] [facility] Comment on above: Result Comment: PERF ORMED BY: [place] [address] PATHOLOGIST EYE PHYSICIAN BRANDEN WHATLEY M.D. Performed By: #### G LULS #### Point of Care testing , LeukoReduced RBCon 3 LeukoReduced RBC TRANSFUSED 08/31/[address] [facility] Magnesiumon 08-31-2022 Magnesium [Mass/Vol] 1.2 mg/dL Low 1.9-2.7 [facility] Comment on above: Result Comment: PERF ORMED BY: [place] [address] PATHOLOGIST EYE PHYSICIAN BRANDEN WHATLEY M.D. Performed By: #### F E and TIBC, [id number], ODALIS #### [address] Reticulocyte Counton 023 Reticulocyte Number 0.069 10*6/uL Normal 0.024-0.084 [facility] Comment on above: Result Comment: PERF ORMED BY: [address] [place] [address] PATHOLOGIST EYE PHYSICIAN BRANDEN WHATLEY M.D. Performed By: #### G LULS #### Point of Care testing , Reticulocyte Percent 2.7 % High 0.5-1.5 [facility] Comment on above: Performed By: #### G LULS #### Point of Care testing , Type and Screenon 08-31-2022 ABO and Rh group Nom (Bld) Blood group O Rh(D) negative Normal [facility] Comment on above: Order Comment: NEEDS DRAWN Result Comment: PERF ORMED BY: [place] [address] PATHOLOGIST EYE PHYSICIAN BRANDEN WHATLEY M.D. Vit. B12/Folate Profileon Cobalamin (Vitamin B12) [Mass/Vol] 616 pg/mL Normal 180-[address] [facility] Comment on above: Performed By: #### F E and TIBC, [id number], ODALIS #### [address] Folate 12.5 ng/mL Normal >5.[address] [facility] Comment on above: Result Comment: Adrianna te reference range: >5.9 ng/ml The WHO technical consultation on folate and vitamin b12 deficiencies has determined that folate concentrations less than 4 ng/ml are considered deficient. PERFORMED BY: [place] [address] PATHOLOGIST EYE PHYSICIAN BRANDEN WHATLEY M.D. Performed By: #### F E and TIBC, [id number], ODALIS #### [address] Blood Cultureon 08-30-2022 Bacteria identified Cx Nom (Bld) NO GROWTH 5 DAYS PERFORMED BY: [place] [address] PATHOLOGIST EYE PHYSICIAN BRANDEN WHATLEY M.D. [facility] Comment on above: Performed By: #### G LULS #### Point of Care testing , Bacteria identified Cx Nom (Bld) NO GROWTH 5 DAYS PERFORMED BY: [address] [address] PATHOLOGIST EYE PHYSICIAN BRANDEN WHATLEY M.D. [facility] Comment on above: Performed By: #### G LULS #### Point of Care testing , CT abdomen pelvis wo conon 0 08-30-2022 CT abdomen pelvis wo con [facility] [place] [address] [place] [id number] Scan Report Signed Patient: Matt Kelly MR#: [id number] : 1950 Acct:[id number] Age/Sex: 71 / M ADM Date: 08/30/22 Loc: ER Room: Type: [facility] ER Attending Dr: Copies to: Ragini Aguilar [...] Erik Larson M.D.08/30/2022 3:47 PM Dictation Location: [place] [address] Transcribed By: [facility] 08/30/22 1547 Dictated By: Erik Larson DO 08/30/22 1535 Signed By: 08/30/22 [address] [facility] Complete Blood Count Auto Di ffon 08-30-2022 Basophils (Bld) [#/Vol] 0.1 10*3/uL Normal 0.0-0.[address] [facility] Comment on above: Result Comment: PERF ORMED BY: [facility] [address] [place] [address] PATHOLOGIST EYE PHYSICIAN BRANDEN WHATLEY M.D. Performed By: #### G LULS #### Point of Care testing , Basophils/100 WBC (Bld) 1.0 % Normal . [facility] Comment on above: Performed By: #### G LULS #### Point of Care testing , Eosinophils (Bld) [#/Vol] 0.4 10*3/uL Normal 0.0-0.[address] [facility] Comment on above: Performed By: #### G LULS #### Point of Care testing , Eosinophils/100 WBC (Bld) 4.9 % Normal . [facility] Comment on above: Performed By: #### G LULS #### Point of Care testing , Erythrocyte distribution width (RBC) [Ratio] 14.7 % Normal 12.0-14.[address] [facility] Comment on above: Performed By: #### Young FRANK #### Point of Care testing , Hematocrit (Bld) [Volume fraction] 24.2 % Low 38.8-50.[address] [facility] Comment on above: Performed By: #### G SUSIELS #### Point of Care testing , Hemoglobin (Bld) [Mass/Vol] 8.0 g/dL Low 13.0-17.[address] [facility] Comment on above: Performed By: #### G ZAC #### Point of Care testing , Lymphocytes (Bld) [#/Vol] 1.0 10*3/uL Normal 1.00-4.[address] [facility] Comment on above: Performed By: #### G ZAC #### Point of Care testing , Lymphocytes/100 WBC (Bld) 13.4 % Normal . [facility] Comment on above: Performed By: #### Young FRANK #### Point of Care testing , MCH (RBC) [Entitic mass] 29.4 pg Normal 27.5-35.[address] [facility] Comment on above: Performed By: #### Young FRANK #### Point of Care testing , MCV (RBC) [Entitic vol] 88.5 fL Normal 83.5-[address] [facility] Comment on above: Performed By: #### G SUSIELS #### Point of Care testing , Mean Corpuscular HGB Conc 33.2 g/dL Normal 32.5-35.[address] [facility] Comment on above: Performed By: #### G SUSIELS #### Point of Care testing , Monocytes (Bld) [#/Vol] 0.8 10*3/uL Normal 0.0-0.[address] [facility] Comment on above: Performed By: #### G SUSIELS #### Point of Care testing , Monocytes/100 WBC (Bld) 16.70 % Normal 0.00-20.[address] [facility] Comment on above: Performed By: #### Young FRANK #### Point of Care testing , Monocytes/100 WBC (Bld) 10.1 % Normal . [facility] Comment on above: Performed By: #### Young FRANK #### Point of Care testing , Neutrophils (Bld) [#/Vol] 5.3 10*3/uL Normal 1.8-7.[address] [facility] Comment on above: Performed By: #### Young FRANK #### Point of Care testing , Neutrophils/100 WBC (Bld) 70.6 % Normal . [facility] Comment on above: Performed By: #### Young RICHARDSLS #### Point of Care testing , NRBC% 0.1 /100{WBC} Normal 0-0.[address] [facility] Comment on above: Performed By: #### Young FRANK #### Point of Care testing , Platelet mean volume (Bld) [Entitic vol] 7.7 fL Normal 6.6-10.[address] [facility] Comment on above: Performed By: #### Young FRANK #### Point of Care testing , Platelets (Bld) [#/Vol] 181 10*3/uL Normal 150-[address] [facility] Comment on above: Performed By: #### Young FRANK #### Point of Care testing , RBC (Bld) [#/Vol] 2.73 10*6/uL Low 3.90-5.60 [facility] Comment on above: Performed By: #### Young FRANK #### Point of Care testing , WBC (Bld) [#/Vol] 7.4 10*3/uL Normal 4.1-10.5 [facility] Comment on above: Performed By: #### Young RICHARDSLS #### Point of Care testing , Comprehensive Metabolic Pane real 08-30-2022 Albumin [Mass/Vol] 2.9 g/dL Low 3.5-5.7 [facility] Comment on above: Performed By: #### Young FRANK #### Point of Care testing , Albumin/Globulin [Mass ratio] 0.8 {ratio} Normal [facility] Comment on above: Performed By: #### Young FRANK #### Point of Care testing , ALP [Catalytic activity/Vol] 105 U/L High 34-[address] [facility] Comment on above: Performed By: #### G SUSIELS #### Point of Care testing , ALT [Catalytic activity/Vol] 31 U/L Normal 7-[address] [facility] Comment on above: Performed By: #### G LULS #### Point of Care testing , Anion gap [Moles/Vol] 14.3 mmol/L Normal 6.0-15.0 [facility] Comment on above: Performed By: #### G LULS #### Point of Care testing , AST [Catalytic activity/Vol] 14 U/L Normal 13-[address] [facility] Comment on above: Performed By: #### G SUSIELS #### Point of Care testing , Bilirubin [Mass/Vol] 0.3 mg/dL Normal 0.3-1.0 [facility] Comment on above: Performed By: #### G SUSIELS #### Point of Care testing , Calcium [Mass/Vol] 8.9 mg/dL Normal 8.6-10.3 [facility] Comment on above: Performed By: #### G SUSIELS #### Point of Care testing , Chloride [Moles/Vol] 110 mmol/L High 98-107 [facility] Comment on above: Performed By: #### G SUSIELS #### Point of Care testing , CO2 [Moles/Vol] 17.6 mmol/L Low 21.0-31.0 [facility] Comment on above: Performed By: #### G SUSIELS #### Point of Care testing , Creatinine [Mass/Vol] 6.18 mg/dL High 0.70-1.30 [facility] Comment on above: Performed By: #### G SUSIELS #### Point of Care testing , Creatinine Clr Calc Pharmacy 16.08 [facility] Comment on above: Result Comment: PERF ORMED BY: [facility] [place] [address] PATHOLOGIST EYE PHYSICIAN BRANDEN WHATLEY M.D. Performed By: #### G SUSIELS #### Point of Care testing , GFR/1.73 sq M.predicted MDRD (S/P/Bld) [Vol rate/Area] 9.045 mL/min/{1.73_m2} [facility] Comment on above: Performed By: #### G SUSIELS #### Point of Care testing , Globulin (S) [Mass/Vol] 3.5 g/dL Normal [facility] Comment on above: Performed By: #### G LULS #### Point of Care testing , Glucose [Mass/Vol] 105 mg/dL High 70-100 [facility] Comment on above: Result Comment: [facility] Glucose Reference Range is dependent on time and content of last meal. Glucose of more than 200 mg/dL in a nonstressed, ambulatory subject supports the diagnosis of Diabetes Mellitus. ADA recommended reference range Performed By: #### G SUSIELS #### Point of Care testing , Potassium [Moles/Vol] 4.9 mmol/L Normal 3.5-5.1 [facility] Comment on above: Performed By: #### G SUSIELS #### Point of Care testing , Protein [Mass/Vol] 6.4 g/dL Normal 6.4-8.9 [facility] Comment on above: Performed By: #### G SUSIELS #### Point of Care testing , Sodium [Moles/Vol] 137 mmol/L Normal 136-145 [facility] Comment on above: Performed By: #### G SUSIELS #### Point of Care testing , Urea nitrogen [Mass/Vol] 84 mg/dL High 7-[address] [facility] Comment on above: Performed By: #### G SUSIELS #### Point of Care testing , Dipstick and Microscopicon 0 08-30-2022 Appearance (U) Turbid Critically abnormal Clear [facility] Comment on above: Order Comment: Name Collection Type:: Wooten Catheter Performed By: #### F E and TIBC, [id number], ODALIS #### [facility] [address] Bacteria,Urine 2+ High None Seen [facility] Comment on above: Order Comment: Name Collection Type:: Wooten Catheter Performed By: #### F E and TIBC, [id number], ODALIS #### [facility] [address] [place] [address] [place] Bilirubin,Urine Negative Normal Negative [facility] Comment on above: Order Comment: Name Collection Type:: Wooten Catheter Performed By: #### F E and TIBC, [id number], ODALIS #### [address] Color (U) Yellow Normal Yellow [facility] Comment on above: Order Comment: Name Collection Type:: Wooten Catheter Performed By: #### F E and TIBC, [id number], ODALIS #### [address] Glucose Ql (U) 100 mg/dL High Normal [facility] Comment on above: Order Comment: Name Collection Type:: Wooten Catheter Performed By: #### F E and TIBC, [id number], ODALIS #### [address] Hyaline Casts,Urine None Seen Normal 0-1 [facility] Comment on above: Order Comment: Name Collection Type:: Wooten Catheter Performed By: #### F E and TIBC, [id number], ODALIS #### [address] Ketones Ql (U) Negative Normal Negative [facility] Comment on above: Order Comment: Name Collection Type:: Wooten Catheter Performed By: #### F E and TIBC, [id number], ODALIS #### [address] Leukocyte esterase Test strip Ql (U) 4+ High Negative [facility] Comment on above: Order Comment: Name Collection Type:: Wooten Catheter Performed By: #### F E and TIBC, [id number], ODALIS #### [place] [address] [place] Nitrite,Urine Positive High Negative [facility] Comment on above: Order Comment: Name Collection Type:: Wooten Catheter Performed By: #### F E and TIBC, [id number], ODALIS #### [address] Occult Blood,Urine 3+ High Negative [facility] Comment on above: Order Comment: Name Collection Type:: Wooten Catheter Result Comment: PERF ORMED BY: [place] [address] PATHOLOGIST EYE PHYSICIAN BRANDEN WHATLEY M.D. Performed By: #### F E and TIBC, [id number], ODALIS #### [address] Other Casts,Urine None Seen Normal None Seen [facility] Comment on above: Order Comment: Name Collection Type:: Wooten Catheter Performed By: #### F E and TIBC, [id number], ODALIS #### [address] pH (U) 6.0 [pH] Normal 5.0-9.[address] [facility] Comment on above: Order Comment: Name Collection Type:: Wooten Catheter Performed By: #### F E and TIBC, [id number], ODALIS #### [address] Protein (U) [Mass/Vol] 100 mg/dL High Negative [facility] Comment on above: Order Comment: Name Collection Type:: Wooten Catheter Performed By: #### F E and TIBC, [id number], ODALIS #### [place] [address] [place] RBC,Urine 3-4 Normal 0-[address] [facility] Comment on above: Order Comment: Name Collection Type:: Wooten Catheter Performed By: #### F E and TIBC, [id number], ODALIS #### [place] [address] [place] Specificy [place],Urine 1.011 Normal 1.001-1.[address] [facility] Comment on above: Order Comment: Name Collection Type:: Wooten Catheter Performed By: #### F E and TIBC, [id number], ODALIS #### [address] [place] [address] [place] Squamous Epithelial Cell,Urine 1-2 Normal 0-[address] [facility] Comment on above: Order Comment: Name Collection Type:: Wooten Catheter Performed By: #### F E and TIBC, [id number], ODALIS #### [facility] [address] Urobilinogen,Urine Normal Normal Normal [facility] Comment on above: Order Comment: Name Collection Type:: Wooten Catheter Performed By: #### F E and TIBC, [id number], ODALIS #### [address] WBC,Urine Innumerable High 0-[address] [facility] Comment on above: Order Comment: Name Collection Type:: Wooten Catheter Performed By: #### F E and TIBC, [id number], ODALIS #### [address] Yeast,Urine 2+ Critically abnormal None Seen [facility] Comment on above: Order Comment: Name Collection Type:: Wooten Catheter Result Comment: PERF ORMED BY: [place] [address] PATHOLOGIST EYE PHYSICIAN BRANDEN WHATLEY M.D. Performed By: #### F E and TIBC, [id number], ODALIS #### [address] Glucose Poct Glucometerson 0 08-30-2022 Glucose [Mass/Vol] 148 mg/dL Normal [facility] Comment on above: Result Comment: [facility] Glucose Reference Range is dependent on time and content of last meal. Glucose of more than 200 mg/dL in a nonstressed, ambulatory subject supports the diagnosis of Diabetes Mellitus. PERFORMED BY: [address] [place] [address] PATHOLOGIST EYE PHYSICIAN BRANDEN WHATLEY M.D. Performed By: #### G LULS #### Point of Care testing , Glucose [Mass/Vol] 100 mg/dL Normal [facility] Comment on above: Result Comment: [facility] Glucose Reference Range is dependent on time and content of last meal. Glucose of more than 200 mg/dL in a nonstressed, ambulatory subject supports the diagnosis of Diabetes Mellitus. PERFORMED BY: [place] [address] PATHOLOGIST EYE PHYSICIAN BRANDEN WHATLEY M.D. Performed By: #### F E and TIBC [id number], ODALIS #### [facility] [address] [place] [address] Urine Cultureon 08-30-2022 Bacteria identified Cx Nom (U) ORGANISM: Pseudomonas aeruginosa (O:PSEAER) Chama Count 30,000 Aerobic RONI Charge (NMIC56) ---- [...] RESISTANT TO ALL B-LACTAM DRUGS. PERFORMED BY: [place] [address] PATHOLOGIST EYE PHYSICIAN BRANDEN WHATLEY M.D. Normal [facility] Comment on above: Performed By: #### F E and TIBC, [id number], ODALIS #### [place] [id number] [facility] PRBC LEUKOREDUCEDon 07-19-19 23 PRBC LEUKOREDUCED Cross Match Result Compatible Unit Blood Type O Neg Unit Number [id number] Status Information Transfused Product ID Red Blood Cells Product Code [id number] [facility] Comment on above: Performed By: #### P OCGLUC #### [facility] [address] [place] [address] Dr. Dk Mahoney PRBC LEUKOREDUCED Cross Match Result Compatible Unit Blood Type O Neg Unit Number [id number] Status Information Transfused Product ID Red Blood Cells Product Code [id number] [facility] Comment on above: Performed By: #### P OCGLUC #### [facility] [address] [place] [address] Dr. Dk Mahoney CULTURE URINEon 07-09-2022 CULTURE [...] R F Levofloxacin >=8 R F Normal [facility] Comment on above: Performed By: #### P OCGLUC #### [facility] [address] [place] [address] Dr. Dk Mahoney PROTEIN ELECTROPHERESISon Albumin [Mass/Vol] 2.7 g/dL Critically low 2.9-4.4 [facility] Comment on above: Performed By: #### M G, CMP, PHOS #### [facility] [address] [place] [address] [address] Dk Mahoney Albumin/Globulin [Mass ratio] 0.9 {ratio} Normal 0.7-1.7 [facility] Comment on above: Performed By: #### M G, CMP, PHOS #### [facility] [address] [place] [address] [address] Dk Mahoney Fkzwu-7-Bgvccywv 0.2 g/dL Normal 0.0-0.4 [facility] Comment on above: Performed By: #### M G, CMP, PHOS #### [facility] [address] [place] [address] [address] Dk Mahoney Phjjz-2-Eooytfso 0.8 g/dL Normal 0.4-1.0 [facility] Comment on above: Performed By: #### M G, CMP, PHOS #### [facility] [address] [place] [address] Dr. Dk Mahoney Beta Globulin 1.0 g/dL Normal 0.7-1.3 [facility] Comment on above: Performed By: #### M G, CMP, PHOS #### [facility] [address] [place] [address] [address] Dk Mahoney Gamma Globulin 1.1 g/dL Normal 0.4-1.8 [facility] Comment on above: Performed By: #### M G, CMP, PHOS #### [facility] [address] [place] [address] [address] Dk Mahoney Globulin (S) [Mass/Vol] 3.1 g/dL Normal 2.2-3.9 [facility] Comment on above: Performed By: #### M G, CMP, PHOS #### [facility] [address] [place] [address] [address] Dk Mahoney M-Primitivo Comment: Normal Not Observed [facility] Comment on above: Result Comment: SPE shows an asymmetrical gamma. Performed By: #### M G, CMP, PHOS #### [facility] [address] [place] [address] [address] Dk Mahoney PDF . Normal [facility] Comment on above: Performed By: #### M G, CMP, PHOS #### [facility] [address] [place] [address] [address] Dk Mahoney Please note: Comment Normal [facility] Comment on above: Result Comment: Prot ein electrophoresis scan will follow via computer, mail, or caterpillar tractor operator delivery. Performed By: #### M G, CMP, PHOS #### [facility] [address] [place] [address] [address] Dk Mahoney Protein [Mass/Vol] 5.8 g/dL Critically low 6.0-8.5 Th e [facility] Comment on above: Performed By: #### M G, CMP, PHOS #### [facility] [address] [place] [address] Dr. Dk Mahoney PROTEIN ELECTROPHERESIS URIN E RANDOMon 07-09-2022 Albumin, U 23.2 % Normal [facility] Comment on above: Performed By: #### M G, CMP, PHOS #### [facility] [address] [place] [address] Dr. Dk Mahoney Alpha-1 Globulin U 3.6 % Normal [facility] Comment on above: Performed By: #### M G, CMP, PHOS #### [facility] [address] [place] [address] Dr. Dk Mahoney Alpha-2 Glubulin U 19.7 % Normal [facility] Comment on above: Performed By: #### M G, CMP, PHOS #### [facility] [address] [place] [address] [address] Dk Mahoney Beta Globulin, U 31.4 % Normal [facility] Comment on above: Performed By: #### M G, CMP, PHOS #### [facility] [address] [place] [address] Dr. Dk Mahoney Gamma Globulin U 22.1 % Normal [facility] Comment on above: Performed By: #### M G, CMP, PHOS #### [facility] [address] [place] [address] [address] Dk Mahoney M-Primitivo, % Comment: Normal Not Observed [facility] Comment on above: Result Comment: UPE shows an asymmetrical beta. Performed By: #### M G, CMP, PHOS #### [facility] [address] [place] [address] Dr. Dk Mahoney PDF . Normal [facility] Comment on above: Performed By: #### M G, CMP, PHOS #### [facility] [address] [place] [address] Dr. Dk Mahoney Please note: Comment Normal [facility] Comment on above: Result Comment: Prot ein electrophoresis scan will follow via computer, mail, or caterpillar tractor operator delivery. Performed By: #### M G, CMP, PHOS #### [facility] [address] [place] [address] Dr. Dk Mahoney Protein (U) [Mass/Vol] 34.7 mg/dL Normal Not Estab. [facility] Comment on above: Performed By: #### M G, CMP, PHOS #### [facility] [address] [place] [address] Dr. Dk Mahoney CBC AUTO DIFFon 07-07-2022 BASO # 0.1 103/ul Normal 0.0-0.1 [facility] Comment on above: Performed By: #### M G, CMP, PHOS #### [facility] [address] [place] [address] Dr. Dk Mahoney Basophils/100 WBC (Bld) 0.9 % Normal 0.2-2.0 [facility] Comment on above: Performed By: #### M G, CMP, PHOS #### [facility] [address] [place] [address] Dr. Dk Mahoney EO # 0.2 103/ul Normal 0.0-0.7 [facility] Comment on above: Performed By: #### M G, CMP, PHOS #### [facility] [address] [place] [address] Dr. Dk Mahoney Eosinophils/100 WBC (Bld) 2.9 % Normal 0.9-7.0 [facility] Comment on above: Performed By: #### M G, CMP, PHOS #### [facility] [address] [place] [address] Dr. Dk Mahoney Erythrocyte distribution width (RBC) [Ratio] 15.0 % Normal 11.0-15.0 [facility] Comment on above: Performed By: #### M G, CMP, PHOS #### [facility] [address] [place] [address] Dr. Dk Mahoney Hematocrit (Bld) [Volume fraction] 24.4 % Critically low 42.0-54.0 [facility] Comment on above: Performed By: #### M G, CMP, PHOS #### [facility] [address] [place] [address] Dr. Dk Mahoney Hemoglobin (Bld) [Mass/Vol] 7.8 g/dL Critically low 14.0-18.0 [facility] Comment on above: Performed By: #### M G, CMP, PHOS #### [facility] [address] [place] [address] Dr. Dk Mahoney IG # 0.07 10e3/ul Critically high 0.00-0.03 [facility] Comment on above: Performed By: #### M G, CMP, PHOS #### [facility] [address] [place] [address] Dr. Dk Mahoney IG % 1.1 % Critically high 0.0-0.5 [facility] Comment on above: Performed By: #### M G, CMP, PHOS #### [facility] [address] [place] [address] Dr. Dk Mahoney LYMPH # 1.0 103/ul Critically low 1.2-3.8 [facility] Comment on above: Performed By: #### M G, CMP, PHOS #### [facility] [address] [place] [address] Dr. Dk Mahoney Lymphocytes/100 WBC (Bld) 15.4 % Critically low 20.5-60.0 [facility] Comment on above: Performed By: #### M G, CMP, PHOS #### [facility] [address] [place] [address] Dr. Dk Mahoney MANUAL DIFF REQ NO Normal [facility] Comment on above: Performed By: #### M G, CMP, PHOS #### [facility] [address] [place] [address] Dr. Dk Mahoney MCH (RBC) [Entitic mass] 29.3 pg Normal 25.9-34.0 [facility] Comment on above: Performed By: #### M G, CMP, PHOS #### [facility] [address] [place] [address] Dr. Dk Mahoney MCHC (RBC) [Mass/Vol] 32.0 g/dL Normal 29.9-35.2 [facility] Comment on above: Performed By: #### M G, CMP, PHOS #### [facility] [address] [place] [address] Dr. Dk Mahoney MCV (RBC) [Entitic vol] 91.7 fL Normal 80.0-94.0 [facility] Comment on above: Performed By: #### M G, CMP, PHOS #### [facility] [address] [place] [address] Dr. Dk Mahoney MONO # 0.6 103/ul Normal 0.3-0.8 [facility] Comment on above: Performed By: #### M G, CMP, PHOS #### [facility] [address] [place] [address] Dr. Dk Mahoney Monocytes/100 WBC (Bld) 9.2 % Normal 1.7-12.0 [facility] Comment on above: Performed By: #### M G, CMP, PHOS #### [facility] [address] [place] [address] Dr. Dk Mahoney NEUT # 4.6 103/ul Normal 1.4-6.5 [facility] Comment on above: Performed By: #### M G, CMP, PHOS #### [facility] [address] [place] [address] Dr. Dk Mahoney Neutrophils/100 WBC (Bld) 70.5 % Normal 43.0-75.0 [facility] Comment on above: Performed By: #### M G, CMP, PHOS #### [facility] [address] [address] [address] Dk Mahoney Platelet mean volume (Bld) [Entitic vol] 10.1 fL Normal 9.5-13.5 [facility] Comment on above: Performed By: #### M G, CMP, PHOS #### [facility] [address] [address] [address] Dk Mahoney PLT 172 103/ul Normal 150-450 [facility] Comment on above: Performed By: #### M G, CMP, PHOS #### [facility] [address] [place] [address] Dr. Dk Mahoney RBC 2.66 106/ul Critically low 4.70-6.10 [facility] Comment on above: Performed By: #### M Young, CMP, PHOS #### [facility] [address] [place] [address] Dr. Dk Mahoney WBC 6.5 103/ul Normal 4.0-11.0 [facility] Comment on above: Performed By: #### M Young, CMP, PHOS #### [facility] [address] [place] [address] Dr. Dk Mahoney MAGNESIUMon 07-07-2022 Magnesium [Mass/Vol] 1.4 mg/dL Critically low 1.8-2.4 [facility] Comment on above: Performed By: #### M Young, CMP, PHOS #### [facility] [address] [place] [address] Dr. Dk Mahoney PHOSPHORUSon 07-07-2022 Phosphate [Mass/Vol] 5.9 mg/dL Critically high 2.6-4.7 [facility] Comment on above: Performed By: #### M Young, CMP, PHOS #### [facility] [address] [place] [address] Dr. Dk Mahoney POINT OF CARE GLUCOSEon 06-13 Glucose [Mass/Vol] 121 mg/dL Critically high 74-106 [facility] Comment on above: Performed By: #### M G, CMP, PHOS #### [facility] [address] [address] [address] Dk Mahoney PROF 14(COMP METB)on 023 Albumin [Mass/Vol] 2.4 g/dL Critically low 3.4-5.0 [facility] Comment on above: Performed By: #### M G, CMP, PHOS #### [facility] [address] [address] [address] Dk Mahoney Albumin/Globulin [Mass ratio] 0.6 {ratio} Normal [facility] Comment on above: Performed By: #### M G, CMP, PHOS #### [facility] [address] [address] [address] Dk Mahoney ALP [Catalytic activity/Vol] 128 U/L Critically high 46-116 [facility] Comment on above: Performed By: #### M G, CMP, PHOS #### [facility] [address] [address] [address] Dk Mahoney ALT [Catalytic activity/Vol] 49 U/L Normal 16-63 [facility] Comment on above: Performed By: #### M G, CMP, PHOS #### [facility] [address] [address] [address] Dk Mahoney Anion gap [Moles/Vol] 16.3 mmol/L Normal [facility] Comment on above: Performed By: #### M G, CMP, PHOS #### [facility] [address] [address] [address] Dk Mahoney AST [Catalytic activity/Vol] 17 U/L Normal 15-37 [facility] Comment on above: Performed By: #### M G, CMP, PHOS #### [facility] [address] [address] [address] Dk Mahoney Bilirubin [Mass/Vol] 0.3 mg/dL Normal 0.2-1.0 [facility] Comment on above: Performed By: #### M G, CMP, PHOS #### [facility] [address] [address] [address] Dk Mahoney Calcium [Mass/Vol] 9.2 mg/dL Normal 8.5-10.1 [facility] Comment on above: Performed By: #### M Young CMP, PHOS #### [facility] [address] [place] [address] Dr. Dk Mahoney Chloride [Moles/Vol] 105 mmol/L Normal 98-107 [facility] Comment on above: Performed By: #### M Young CMP, PHOS #### [facility] [address] [place] [address] Dr. Dk Mahoney CO2 [Moles/Vol] 20.3 mmol/L Critically low 21.0-32.0 [facility] Comment on above: Performed By: #### M Young CMP, PHOS #### [facility] [address] [place] [address] Dr. Dk Mahoney Creatinine [Mass/Vol] 5.59 mg/dL Critically high 0.70-1.30 [facility] Comment on above: Performed By: #### Rosmery Vidal CMP, PHOS #### [facility] [address] [place] [address] Dr. Dk Mahoney EGFR-AF BELARUSIAN 12 mL/min/1.73m2 Critically low >=60 [facility] Comment on above: Performed By: #### Rosmery Vidal CMP, PHOS #### [facility] [address] [place] [address] Dr. Dk Mahoney EGFR-NON AF BELARUSIAN 10 mL/min/1.73m2 Critically low >=60 [facility] Comment on above: Performed By: #### Rosmery Vidal CMP, PHOS #### [facility] [address] [place] [address] Dr. Dk Mahoney Globulin (S) [Mass/Vol] 3.7 g/dL Normal [facility] Comment on above: Performed By: #### M Young CMP, PHOS #### [facility] [address] [place] [address] Dr. Dk Mahoney Glucose [Mass/Vol] 191 mg/dL Critically high 74-106 [facility] Comment on above: Performed By: #### M Young CMP, PHOS #### [facility] [address] [place] [address] Dr. Dk Mahoney Potassium [Moles/Vol] 4.5 mmol/L Normal 3.5-5.1 [facility] Comment on above: Performed By: #### M G, CMP, PHOS #### [facility] [address] [place] [address] Dr. Dk Mahoney Protein [Mass/Vol] 6.1 g/dL Critically low 6.4-8.2 [facility] Comment on above: Performed By: #### M G, CMP, PHOS #### [facility] [address] [place] [address] Dr. Dk Mahoney Sodium [Moles/Vol] 137 mmol/L Normal 136-145 [facility] Comment on above: Performed By: #### M G, CMP, PHOS #### [facility] [address] [place] [address] Dr. Dk Mahoney Urea nitrogen [Mass/Vol] 83.0 mg/dL Critically high 7.0-18.0 [facility] Comment on above: Performed By: #### M G, CMP, PHOS #### [facility] [address] [place] [address] Dr. Dk Mahoney Urea nitrogen/Creatinine [Mass ratio] 14.8 mg/mg Normal [facility] Comment on above: Performed By: #### M G, CMP, PHOS #### [facility] [address] [place] [address] Dr. Dk Mahoney CBC AUTO DIFFon 07-06-2022 BASO # 0.1 103/ul Normal 0.0-0.1 [facility] Comment on above: Performed By: #### M G, CMP, PHOS #### [facility] [address] [place] [address] Dr. Dk Mahoney Basophils/100 WBC (Bld) 0.9 % Normal 0.2-2.0 [facility] Comment on above: Performed By: #### M G, CMP, PHOS #### [facility] [address] [place] [address] Dr. Dk Mahoney EO # 0.2 103/ul Normal 0.0-0.7 [facility] Comment on above: Performed By: #### M SHIREEN Vidal, PHOS #### [facility] [address] [place] [address] Dr. Dk Mahoney Eosinophils/100 WBC (Bld) 2.9 % Normal 0.9-7.0 [facility] Comment on above: Performed By: #### M Young CMP, PHOS #### [facility] [address] [place] [address] Dr. Dk Mahoney Erythrocyte distribution width (RBC) [Ratio] 15.0 % Normal 11.0-15.0 [facility] Comment on above: Performed By: #### M Young CMP, PHOS #### [facility] [address] [place] [address] Dr. Dk Mahoney Hematocrit (Bld) [Volume fraction] 24.2 % Critically low 42.0-54.0 [facility] Comment on above: Performed By: #### M SHIREEN Vidal, PHOS #### [facility] [address] [place] [address] Dr. Dk Mahoney Hemoglobin (Bld) [Mass/Vol] 8.0 g/dL Critically low 14.0-18.0 [facility] Comment on above: Performed By: #### M Young CMP, PHOS #### [facility] [address] [place] [address] Dr. Dk Mahoney IG # 0.06 10e3/ul Critically high 0.00-0.03 [facility] Comment on above: Performed By: #### M G, CMP, PHOS #### [facility] [address] [place] [address] Dr. Dk Mahoney IG % 0.9 % Critically high 0.0-0.5 [facility] Comment on above: Performed By: #### M G, CMP, PHOS #### [facility] [address] [place] [address] Dr. Dk Mahoney LYMPH # 1.0 103/ul Critically low 1.2-3.8 [facility] Comment on above: Performed By: #### M G, CMP, PHOS #### [facility] [address] [place] [address] Dr. Dk Mahoney Lymphocytes/100 WBC (Bld) 14.6 % Critically low 20.5-60.0 [facility] Comment on above: Performed By: #### M G, CMP, PHOS #### [facility] [address] [place] [address] Dr. Dk Mahoney MANUAL DIFF REQ NO Normal [facility] Comment on above: Performed By: #### M G, CMP, PHOS #### [facility] [address] [place] [address] Dr. Dk Mahoney MCH (RBC) [Entitic mass] 30.4 pg Normal 25.9-34.0 [facility] Comment on above: Performed By: #### M G, CMP, PHOS #### [facility] [address] [place] [address] Dr. Dk Mahoney MCHC (RBC) [Mass/Vol] 33.1 g/dL Normal 29.9-35.2 [facility] Comment on above: Performed By: #### M G, CMP, PHOS #### [facility] [address] [place] [address] Dr. Dk Mahoney MCV (RBC) [Entitic vol] 92.0 fL Normal 80.0-94.0 [facility] Comment on above: Performed By: #### M G, CMP, PHOS #### [facility] [address] [place] [address] Dr. Dk Mahoney MONO # 0.7 103/ul Normal 0.3-0.8 [facility] Comment on above: Performed By: #### M G, CMP, PHOS #### [facility] [address] [place] [address] Dr. Dk Mahoney Monocytes/100 WBC (Bld) 11.1 % Normal 1.7-12.0 [facility] Comment on above: Performed By: #### M G, CMP, PHOS #### [facility] [address] [place] [address] Dr. Dk Mahoney NEUT # 4.5 103/ul Normal 1.4-6.5 [facility] Comment on above: Performed By: #### M Young CMP, PHOS #### [facility] [address] [address] [address] Dk Mahoney Neutrophils/100 WBC (Bld) 69.6 % Normal 43.0-75.0 [facility] Comment on above: Performed By: #### M Young CMP, PHOS #### [facility] [address] [place] [address] Dr. Dk Mahoney Platelet mean volume (Bld) [Entitic vol] 9.4 fL Critically low 9.5-13.5 [facility] Comment on above: Performed By: #### M Young CMP, PHOS #### [facility] [address] [place] [address] Dr. Dk Mahoney PLT 159 103/ul Normal 150-450 [facility] Comment on above: Performed By: #### Rosmery Vidal CMP, PHOS #### [facility] [address] [place] [address] Dr. Dk Mahoney RBC 2.63 106/ul Critically low 4.70-6.10 [facility] Comment on above: Performed By: #### M Young CMP, PHOS #### [facility] [address] [place] [address] Dr. Dk Mahoney WBC 6.5 103/ul Normal 4.0-11.0 [facility] Comment on above: Performed By: #### M Young CMP, PHOS #### [facility] [address] [place] [address] Dr. Dk Mahoney BASO # 0.0 103/ul Normal 0.0-0.1 [facility] Comment on above: Performed By: #### C BC #### [facility] [address] [place] [address] Dr. Dk Mahoney Basophils/100 WBC (Bld) 0.6 % Normal 0.2-2.0 [facility] Comment on above: Performed By: #### C BC #### [facility] [address] [address] [address] Dk Mahoney EO # 0.2 103/ul Normal 0.0-0.7 [facility] Comment on above: Performed By: #### C BC #### [facility] [address] [address] [address] Dk Mahoney Eosinophils/100 WBC (Bld) 3.2 % Normal 0.9-7.0 [facility] Comment on above: Performed By: #### C BC #### [facility] [address] [place] [address] Dr. Dk Mahoney Erythrocyte distribution width (RBC) [Ratio] 15.2 % Critically high 11.0-15.0 [facility] Comment on above: Performed By: #### C BC #### [facility] [address] [place] [address] Dr. Dk Mahoney Hematocrit (Bld) [Volume fraction] 21.4 % Critically low 42.0-54.0 [facility] Comment on above: Performed By: #### C BC #### [facility] [address] [place] [address] Dr. Dk Mahoney Hemoglobin (Bld) [Mass/Vol] 6.9 g/dL Critically low 14.0-18.0 [facility] Comment on above: Performed By: #### C BC #### [facility] [address] [place] [address] Dr. Dk Mahoney IG # 0.05 10e3/ul Critically high 0.00-0.03 [facility] Comment on above: Performed By: #### C BC #### [facility] [address] [place] [address] Dr. Dk Mahoney IG % 0.8 % Critically high 0.0-0.5 [facility] Comment on above: Performed By: #### C BC #### [facility] [address] [place] [address] Dr. Dk Mahoney LYMPH # 0.9 103/ul Critically low 1.2-3.8 [facility] Comment on above: Performed By: #### C BC #### [facility] [address] [place] [address] Dr. Dk Mahoney Lymphocytes/100 WBC (Bld) 13.8 % Critically low 20.5-60.0 [facility] Comment on above: Performed By: #### C BC #### [facility] [address] [place] [address] Dr. Dk Mahoney MANUAL DIFF REQ NO Normal [facility] Comment on above: Performed By: #### C BC #### [facility] [address] [place] [address] Dr. Dk Mahoney MCH (RBC) [Entitic mass] 29.9 pg Normal 25.9-34.0 [facility] Comment on above: Performed By: #### C BC #### [facility] [address] [place] [address] Dr. Dk Mahoney MCHC (RBC) [Mass/Vol] 32.2 g/dL Normal 29.9-35.2 [facility] Comment on above: Performed By: #### C BC #### [facility] [address] [place] [address] Dr. Dk Mahoney MCV (RBC) [Entitic vol] 92.6 fL Normal 80.0-94.0 [facility] Comment on above: Performed By: #### C BC #### [facility] [address] [place] [address] Dr. Dk Mahoney MONO # 0.8 103/ul Normal 0.3-0.8 [facility] Comment on above: Performed By: #### C BC #### [facility] [address] [place] [address] Dr. Dk Mahoney Monocytes/100 WBC (Bld) 11.4 % Normal 1.7-12.0 [facility] Comment on above: Performed By: #### C BC #### [facility] [address] [place] [address] Dr. Dk Mahoney NEUT # 4.6 103/ul Normal 1.4-6.5 [facility] Comment on above: Performed By: #### C BC #### [facility] [address] [place] [address] Dr. Dk Mahoney Neutrophils/100 WBC (Bld) 70.2 % Normal 43.0-75.0 [facility] Comment on above: Performed By: #### C BC #### [facility] [address] [place] [address] Dr. Dk Mahoney Platelet mean volume (Bld) [Entitic vol] 9.6 fL Normal 9.5-13.5 [facility] Comment on above: Performed By: #### C BC #### [facility] [address] [place] [address] Dr. Dk Mahoney PLT 163 103/ul Normal 150-450 [facility] Comment on above: Performed By: #### C BC #### [facility] [address] [place] [address] Dr. Dk Mahoney RBC 2.31 106/ul Critically low 4.70-6.10 [facility] Comment on above: Performed By: #### C BC #### [facility] [address] [place] [address] Dr. Dk Mahoney WBC 6.6 103/ul Normal 4.0-11.0 [facility] Comment on above: Performed By: #### C BC #### [facility] [address] [place] [address] Dr. Dk Mahoney FERRITINon 07-06-2022 Ferritin [Mass/Vol] 538.0 ng/mL Critically high 26.0-388.0 [facility] Comment on above: Performed By: #### M G, CMP, PHOS #### [facility] [address] [place] [address] Dr. Dk Mahoney IRON AND TIBCon 07-06-2022 % SATURATION 29.7 % Normal [facility] Comment on above: Performed By: #### M G, CMP, PHOS #### [facility] [address] [place] [address] Dr. Dk Mahoney Iron [Mass/Vol] 51.0 ug/dL Critically low 65.0-175.0 [facility] Comment on above: Performed By: #### M G, CMP, PHOS #### [facility] [address] [address] [address] Dk Mahoney TIBC DIRECT 172.0 ug/dL Critically low 250.0-450.0 [facility] Comment on above: Performed By: #### Rosmery Vidal CMP, PHOS #### [facility] [address] [address] [address] Dk Mahoney LDHon 07-06-2022 LDH 126 U/L Normal 85-227 [facility] Comment on above: Performed By: #### Rosmery Vidal CMP, PHOS #### [facility] [address] [address] [address] Dk Mahoney MAGNESIUMon 07-06-2022 Magnesium [Mass/Vol] 1.5 mg/dL Critically low 1.8-2.4 [facility] Comment on above: Performed By: #### Rosmery Vidal CMP, PHOS #### [facility] [address] [place] [address] Dr. Dk Mahoney PHOSPHORUSon 07-06-2022 Phosphate [Mass/Vol] 7.8 mg/dL Critically high 2.6-4.7 [facility] Comment on above: Performed By: #### Rosmery Vidal CMP, PHOS #### [facility] [address] [place] [address] Dr. Dk Mahoney POINT OF CARE GLUCOSEon 06-13 Glucose [Mass/Vol] 149 mg/dL Critically high 74-106 [facility] Comment on above: Performed By: #### Rosmery Vidal CMP, PHOS #### [facility] [address] [address] [address] Dk Mahoney Glucose [Mass/Vol] 145 mg/dL Critically high 74-106 [facility] Comment on above: Performed By: #### Rosmery Vidal CMP, PHOS #### [facility] [address] [place] [address] Dr. Dk Mahoney Glucose [Mass/Vol] 112 mg/dL Critically high 74-106 [facility] Comment on above: Performed By: #### Rosmery Vidal CMP, PHOS #### [facility] [address] [place] [address] Dr. Dk Mahoney Glucose [Mass/Vol] 133 mg/dL Critically high 74-106 [facility] Comment on above: Performed By: #### M G, CMP, PHOS #### [facility] [address] [address] [address] Dk Mahoney Glucose [Mass/Vol] 173 mg/dL Critically high 74-106 [facility] Comment on above: Performed By: #### P OCGLUC #### [facility] [address] [address] [address] Dk Mahoney PROF 14(COMP METB)on 023 Albumin [Mass/Vol] 2.4 g/dL Critically low 3.4-5.0 [facility] Comment on above: Performed By: #### M Young, CMP, PHOS #### [facility] [address] [place] [address] Dr. Dk Mahoney Albumin/Globulin [Mass ratio] 0.6 {ratio} Normal [facility] Comment on above: Performed By: #### M G, CMP, PHOS #### [facility] [address] [address] [address] Dk Mahoney ALP [Catalytic activity/Vol] 133 U/L Critically high 46-116 [facility] Comment on above: Performed By: #### M G, CMP, PHOS #### [facility] [address] [place] [address] Dr. Dk Mahoney ALT [Catalytic activity/Vol] 58 U/L Normal 16-63 [facility] Comment on above: Performed By: #### M G, CMP, PHOS #### [facility] [address] [address] [address] Dk Mahoney Anion gap [Moles/Vol] 16.8 mmol/L Normal [facility] Comment on above: Performed By: #### M G, CMP, PHOS #### [facility] [address] [address] [address] Dk Mahoney AST [Catalytic activity/Vol] 20 U/L Normal 15-37 [facility] Comment on above: Performed By: #### M G, CMP, PHOS #### [facility] [address] [place] [address] Dr. Dk Mahoney Bilirubin [Mass/Vol] 0.2 mg/dL Normal 0.2-1.0 [facility] Comment on above: Performed By: #### M G, CMP, PHOS #### [facility] [address] [place] [address] Dr. Dk Mahoney Calcium [Mass/Vol] 9.0 mg/dL Normal 8.5-10.1 [facility] Comment on above: Performed By: #### M G, CMP, PHOS #### [facility] [address] [place] [address] Dr. Dk Mahoney Chloride [Moles/Vol] 107 mmol/L Normal 98-107 [facility] Comment on above: Performed By: #### M G, CMP, PHOS #### [facility] [address] [place] [address] Dr. Dk Mahoney CO2 [Moles/Vol] 18.2 mmol/L Critically low 21.0-32.0 [facility] Comment on above: Performed By: #### M G, CMP, PHOS #### [facility] [address] [place] [address] Dr. Dk Mahoney Creatinine [Mass/Vol] 5.80 mg/dL Critically high 0.70-1.30 [facility] Comment on above: Performed By: #### M G, CMP, PHOS #### [facility] [address] [place] [address] Dr. Dk Mahoney EGFR-AF BELARUSIAN 12 mL/min/1.73m2 Critically low >=60 [facility] Comment on above: Performed By: #### M G, CMP, PHOS #### [facility] [address] [place] [address] Dr. Dk Mahoney EGFR-NON AF BELARUSIAN 10 mL/min/1.73m2 Critically low >=60 [facility] Comment on above: Performed By: #### M G, CMP, PHOS #### [facility] [address] [place] [address] Dr. Dk Mahoney Globulin (S) [Mass/Vol] 3.9 g/dL Normal [facility] Comment on above: Performed By: #### M SHIREEN Vidal, PHOS #### [facility] [address] [address] [address] Dk Mahoney Glucose [Mass/Vol] 108 mg/dL Critically high 74-106 [facility] Comment on above: Performed By: #### M Young CMP, PHOS #### [facility] [address] [address] [address] Dk Mahoney Potassium [Moles/Vol] 5.0 mmol/L Normal 3.5-5.1 [facility] Comment on above: Performed By: #### M Young CMP, PHOS #### [facility] [address] [place] [address] Dr. Dk Mahoney Protein [Mass/Vol] 6.3 g/dL Critically low 6.4-8.2 [facility] Comment on above: Performed By: #### M Young CMP, PHOS #### [facility] [address] [address] [address] Dk Mahoney Sodium [Moles/Vol] 137 mmol/L Normal 136-145 [facility] Comment on above: Performed By: #### M Young CMP, PHOS #### [facility] [address] [address] [address] Dk Mahoney Urea nitrogen [Mass/Vol] 83.0 mg/dL Critically high 7.0-18.0 [facility] Comment on above: Performed By: #### M Young, CMP, PHOS #### [facility] [address] [address] [address] Dk Mahoney Urea nitrogen/Creatinine [Mass ratio] 14.3 mg/mg Normal [facility] Comment on above: Performed By: #### M Young CMP, PHOS #### [facility] [address] [address] [address] Dk Mahoney RETICULOCYTEon 07-06-2022 RETIC 4.20 % Critically high 0.60-3.10 [facility] Comment on above: Performed By: #### M G, CMP, PHOS #### [facility] [address] [place] [address] Dr. Dk Mahoney TYPE AND SCREENon 07-06-2022 TYPE AND SCREEN Negative Normal [facility] Comment on above: Performed By: #### P OCGLUC #### [facility] [address] [place] [address] Dr. Dk Mahoney URIC ACID SERUMon 07-06-2022 Urate [Mass/Vol] 6.1 mg/dL Normal 3.5-7.2 [facility] Comment on above: Performed By: #### M G, CMP, PHOS #### [facility] [address] [place] [address] Dr. Dk Mahoney VIT B12 AND FOLATEon 023 Cobalamin (Vitamin B12) [Mass/Vol] 686.0 pg/mL Normal 193.0-986.0 [facility] Comment on above: Performed By: #### P OCGLUC #### [facility] [address] [place] [address] Dr. Dk Mahoney FOLATE 15.50 ng/mL Normal 8.60-58.90 [facility] Comment on above: Performed By: #### P OCGLUC #### [facility] [address] [place] [address] Dr. Dk Mahoney CBC AUTO DIFFon 07-05-2022 BASO # 0.1 103/ul Normal 0.0-0.1 [facility] Comment on above: Performed By: #### M G, CMP, PHOS #### [facility] [address] [place] [address] Dr. Dk Mahoney Basophils/100 WBC (Bld) 0.7 % Normal 0.2-2.0 [facility] Comment on above: Performed By: #### M G, CMP, PHOS #### [facility] [address] [place] [address] Dr. Dk Mahoney EO # 0.2 103/ul Normal 0.0-0.7 [facility] Comment on above: Performed By: #### M G, CMP, PHOS #### [facility] [address] [place] [address] Dr. Dk Mahoney Eosinophils/100 WBC (Bld) 3.1 % Normal 0.9-7.0 [facility] Comment on above: Performed By: #### M G, CMP, PHOS #### [facility] [address] [place] [address] Dr. Dk Mahoney Erythrocyte distribution width (RBC) [Ratio] 15.4 % Critically high 11.0-15.0 [facility] Comment on above: Performed By: #### M G, CMP, PHOS #### [facility] [address] [place] [address] Dr. Dk Mahoney Hematocrit (Bld) [Volume fraction] 23.9 % Critically low 42.0-54.0 [facility] Comment on above: Performed By: #### M G, CMP, PHOS #### [facility] [address] [place] [address] Dr. Dk Mahoney Hemoglobin (Bld) [Mass/Vol] 7.7 g/dL Critically low 14.0-18.0 [facility] Comment on above: Performed By: #### M G, CMP, PHOS #### [facility] [address] [place] [address] Dr. Dk Mahoney IG # 0.05 10e3/ul Critically high 0.00-0.03 [facility] Comment on above: Performed By: #### M G, CMP, PHOS #### [facility] [address] [place] [address] Dr. Dk Mahoney IG % 0.7 % Critically high 0.0-0.5 [facility] Comment on above: Performed By: #### M G, CMP, PHOS #### [facility] [address] [place] [address] Dr. Dk Mahoney LYMPH # 1.0 103/ul Critically low 1.2-3.8 [facility] Comment on above: Performed By: #### M G, CMP, PHOS #### [facility] [address] [place] [address] Dr. Dk Mahoney Lymphocytes/100 WBC (Bld) 12.8 % Critically low 20.5-60.0 [facility] Comment on above: Performed By: #### M Young CMP, PHOS #### [facility] [address] [place] [address] Dr. Dk Mahoney MANUAL DIFF REQ NO Normal [facility] Comment on above: Performed By: #### M Young, CMP, PHOS #### [facility] [address] [place] [address] Dr. Dk Mahoney MCH (RBC) [Entitic mass] 30.0 pg Normal 25.9-34.0 [facility] Comment on above: Performed By: #### M Young CMP, PHOS #### [facility] [address] [place] [address] Dr. Dk Mahoney MCHC (RBC) [Mass/Vol] 32.2 g/dL Normal 29.9-35.2 [facility] Comment on above: Performed By: #### M Young CMP, PHOS #### [facility] [address] [place] [address] Dr. Dk Mahoney MCV (RBC) [Entitic vol] 93.0 fL Normal 80.0-94.0 [facility] Comment on above: Performed By: #### M Young CMP, PHOS #### [facility] [address] [place] [address] Dr. Dk Mahoney MONO # 0.8 103/ul Normal 0.3-0.8 [facility] Comment on above: Performed By: #### M G, CMP, PHOS #### [facility] [address] [place] [address] Dr. Dk Mahoney Monocytes/100 WBC (Bld) 10.2 % Normal 1.7-12.0 [facility] Comment on above: Performed By: #### M G, CMP, PHOS #### [facility] [address] [place] [address] Dr. Dk Mahoney NEUT # 5.6 103/ul Normal 1.4-6.5 [facility] Comment on above: Performed By: #### M Young, CMP, PHOS #### [facility] [address] [address] [address] Dk Mahoney Neutrophils/100 WBC (Bld) 72.5 % Normal 43.0-75.0 [facility] Comment on above: Performed By: #### M G, CMP, PHOS #### [facility] [address] [address] [address] Dk Mahoney Platelet mean volume (Bld) [Entitic vol] 9.8 fL Normal 9.5-13.5 [facility] Comment on above: Performed By: #### M G, CMP, PHOS #### [facility] [address] [address] [address] Dk Mahoney PLT 203 103/ul Normal 150-450 [facility] Comment on above: Performed By: #### M G, CMP, PHOS #### [facility] [address] [address] [address] Dk Mahoney RBC 2.57 106/ul Critically low 4.70-6.10 [facility] Comment on above: Performed By: #### M G, CMP, PHOS #### [facility] [address] [address] [address] Dk Mahoney WBC 7.7 103/ul Normal 4.0-11.0 [facility] Comment on above: Performed By: #### M G, CMP, PHOS #### [facility] [address] [place] [address] ABD/PELVIS WO CONon [...] MARQUES AMAYA Date: 2022-07-05 18:21 Normal [facility] Covid-19 PCR ([facility])on 06-13 SARS-CoV-2 (COVID-19) RNA JASON+probe Ql (Unsp spec) Not detected Normal NOT DETECTED [facility] Comment on above: Result Comment: When diagnostic [...] for this test is supported by the [place] of Health and Human Service's declaration that [...] used). Performed By: #### C BC #### [facility] [address] [place] [address] Dr. Dk Mahoney ER URINE PROFILEon 3 Bilirubin Ql (U) Negative Normal NEGATIVE [facility] Comment on above: Performed By: #### M Young CMP, PHOS #### [facility] [address] [place] [address] Dr. Dk Mahoney Clarity (U) CLEAR Normal CLEAR [facility] Comment on above: Performed By: #### M Young CMP, PHOS #### [facility] [address] [place] [address] Dr. Dk Mahoney Color (U) YELLOW Normal YELLOW [facility] Comment on above: Performed By: #### M G CMP, PHOS #### [facility] [address] [place] [address] Dr. Dk Mahoney ERUD A micrscopic examination will be performed if indicated. Normal [facility] Comment on above: Performed By: #### M G, CMP, PHOS #### [facility] [address] [place] [address] Dr. Dk Mahoney Glucose Ql (U) 100 mg/dl Abnormal NEGATIVE [facility] Comment on above: Performed By: #### M G, CMP, PHOS #### [facility] [address] [place] [address] Dr. Dk Mahoney Hemoglobin Ql (U) MODERATE Abnormal NEGATIVE [facility] Comment on above: Performed By: #### M G, CMP, PHOS #### [facility] [address] [address] [address] Dk Mahoney Ketones Ql (U) Negative Normal NEGATIVE [facility] Comment on above: Performed By: #### M G, CMP, PHOS #### [facility] [address] [place] [address] Dr. Dk Mahoney LEUKOCYTES LARGE Abnormal NEGATIVE [facility] Comment on above: Performed By: #### M G, CMP, PHOS #### [facility] [address] [address] [address] Dk Mahoney Nitrite Ql (U) Negative Normal NEGATIVE [facility] Comment on above: Performed By: #### M G, CMP, PHOS #### [facility] [address] [place] [address] Dr. Dk Mahoney pH (U) 7.0 [pH] Normal 5-9 [facility] Comment on above: Performed By: #### M G, CMP, PHOS #### [facility] [address] [place] [address] Dr. Dk Mahoney Protein (U) [Mass/Vol] 30 mg/dL Abnormal NEGATIVE/ TRACE [facility] Comment on above: Performed By: #### M G, CMP, PHOS #### [facility] [address] [place] [address] Dr. Dk Mahoney SPEC GRAVITY 1.010 Normal 1.005-<=1.02 5 [facility] Comment on above: Performed By: #### M G, CMP, PHOS #### [facility] [address] [place] [address] Dr. Dk Mahoney UR MICRO IND INDICATED Normal [facility] Comment on above: Performed By: #### M G, CMP, PHOS #### [facility] [address] [place] [address] Dr. Dk Mahoney Urobilinogen Qn (U) 0.2 {Ramiro'U}/dL Normal 0.2 - 1. 0 [facility] Comment on above: Performed By: #### M G, CMP, PHOS #### [facility] [address] [address] [address] Dk Mahoney PROF 14(COMP METB)on 023 Albumin [Mass/Vol] 2.7 g/dL Critically low 3.4-5.0 [facility] Comment on above: Performed By: #### C BC #### [facility] [address] [place] [address] Dr. Dk Mahoney Albumin/Globulin [Mass ratio] 0.6 {ratio} Normal [facility] Comment on above: Performed By: #### C BC #### [facility] [address] [place] [address] Dr. Dk Mahoney ALP [Catalytic activity/Vol] 148 U/L Critically high 46-116 [facility] Comment on above: Performed By: #### C BC #### [facility] [address] [place] [address] Dr. Dk Mahoney ALT [Catalytic activity/Vol] 70 U/L Critically high 16-63 [facility] Comment on above: Performed By: #### C BC #### [facility] [address] [place] [address] Dr. Dk Mahoney Anion gap [Moles/Vol] 16.7 mmol/L Normal [facility] Comment on above: Performed By: #### C BC #### [facility] [address] [place] [address] Dr. Dk Mahoney AST [Catalytic activity/Vol] 26 U/L Normal 15-37 [facility] Comment on above: Performed By: #### C BC #### [facility] [address] [place] [address] Dr. Dk Mahoney Bilirubin [Mass/Vol] 0.4 mg/dL Normal 0.2-1.0 [facility] Comment on above: Performed By: #### C BC #### [facility] [address] [place] [address] Dr. Dk Mahoney Calcium [Mass/Vol] 9.2 mg/dL Normal 8.5-10.1 [facility] Comment on above: Performed By: #### C BC #### [facility] [address] [address] [address] Dk Mahoney Chloride [Moles/Vol] 105 mmol/L Normal 98-107 [facility] Comment on above: Performed By: #### C BC #### [facility] [address] [address] [address] Dk Mahoney CO2 [Moles/Vol] 18.1 mmol/L Critically low 21.0-32.0 [facility] Comment on above: Performed By: #### C BC #### [facility] [address] [address] [address] Dk Mahoney Creatinine [Mass/Vol] 5.81 mg/dL Critically high 0.70-1.30 [facility] Comment on above: Performed By: #### C BC #### [facility] [address] [address] [address] Dk Mahoney EGFR-AF BELARUSIAN 12 mL/min/1.73m2 Critically low >=60 [facility] Comment on above: Performed By: #### C BC #### [facility] [address] [address] [address] Dk Mahoney EGFR-NON AF BELARUSIAN 10 mL/min/1.73m2 Critically low >=60 [facility] Comment on above: Performed By: #### C BC #### [facility] [address] [address] [address] Dk Mahoney Globulin (S) [Mass/Vol] 4.3 g/dL Normal [facility] Comment on above: Performed By: #### C BC #### [facility] [address] [address] [address] Dk Mahoney Glucose [Mass/Vol] 138 mg/dL Critically high 74-106 [facility] Comment on above: Performed By: #### C BC #### [facility] [address] [address] [address] Dk Mahoney Potassium [Moles/Vol] 4.8 mmol/L Normal 3.5-5.1 [facility] Comment on above: Performed By: #### C BC #### [facility] [address] [address] [address] Dk Mahoney Protein [Mass/Vol] 7.0 g/dL Normal 6.4-8.2 [facility] Comment on above: Performed By: #### C BC #### [facility] [address] [address] [address] Dk Mahoney Sodium [Moles/Vol] 135 mmol/L Critically low 136-145 [facility] Comment on above: Performed By: #### C BC #### [facility] [address] [address] [address] Dk Mahoney Urea nitrogen [Mass/Vol] 83.0 mg/dL Critically high 7.0-18.0 [facility] Comment on above: Performed By: #### C BC #### [facility] [address] [address] [address] Dk Mahoney Urea nitrogen/Creatinine [Mass ratio] 14.3 mg/mg Normal [facility] Comment on above: Performed By: #### C BC #### [facility] [address] [address] [address] Dk Mahoney TROPONIN, HIGH SENSITIVITYon 07-05-2022 HSTROP 21.4 pg/mL Normal 4.0-76.1 [facility] Comment on above: Result Comment: CUT- OFF POINTS HAVE BEEN ESTABLISHED BASED ON THE FOURTH UNIVERSAL DEFINITIONS OF MYOCARDIAL INFARCTION. THE UPPER REFERENCE LIMIT (URL) OF TROPONIN, DEFINED THE 99TH PERCENTILE OF cTnI DISTRIBUTION IN A REFERENCE POPULATION, HAS BEEN CONFIRMED THE DECISION THRESHOLD FOR IN DIAGNOSIS. Performed By: #### C BC #### [facility] [address] [address] [address] Dk Mahoney URINE MICROSCOPIC ONLYon BACTERIA MODERATE Abnormal NONE SEEN [facility] Comment on above: Performed By: #### M G, CMP, PHOS #### [facility] [id number] Dk Mahoney Bacteria identified Cx Nom (U) INDICATED Normal [facility] Comment on above: Performed By: #### M G, CMP, PHOS #### [facility] [address] [place] [address] Dr. Dk Mahoney CAST NONE SEEN Normal NONE SEEN [facility] Comment on above: Performed By: #### M G, CMP, PHOS #### [facility] [address] [place] [address] Dr. Dk Mahoney Crystals LM Nom (Urine sed) NONE SEEN Normal NONE SEEN [facility] Comment on above: Performed By: #### M G, CMP, PHOS #### [facility] [address] [place] [address] Dr. Dk Mahoney Epithelial cells LM Ql (Urine sed) FEW Abnormal NONE SEEN /RARE [facility] Comment on above: Performed By: #### M G, CMP, PHOS #### [facility] [address] [place] [address] Dr. Dk Mahoney MUCOUS NONE SEEN Normal NONE SEEN [facility] Comment on above: Performed By: #### M G, CMP, PHOS #### [facility] [address] [place] [address] Dr. Dk Mahoney RBC 10-20 Abnormal 0-2 [facility] Comment on above: Performed By: #### M G, CMP, PHOS #### [facility] [address] [place] [address] Dr. Dk Mahoney WBC 75-100 Abnormal NONE SEEN [facility] Comment on above: Performed By: #### M G, CMP, PHOS #### [facility] [address] [place] [address] Dr. Dk Mahoney YEAST PRESENT Abnormal NONE SEEN [facility] Comment on above: Performed By: #### M G, CMP, PHOS #### [facility] [address] [place] [address] Dr. Dk Mahoney PRBC LEUKOREDUCEDon 05-11-19 23 PRBC LEUKOREDUCED Cross Match Result Compatible Unit Blood Type O Neg Unit Number [id number] Status Information Transfused Product ID Red Blood Cells Product Code [id number] Normal [facility] Comment on above: Performed By: #### P RBC #### [facility] [address] [place] [address] Dr. Dk Mahoney ABO AND RH TYPEon 05-04-2022 ABO and Rh group Nom (Bld) ABO Rh Typing O Rh Negative Normal [facility] Comment on above: Performed By: #### A NOE, TNS #### [facility] [address] [place] [address] Dr. Dk Mahoney BNPon 05-04-2022 Natriuretic peptide B (Bld) [Mass/Vol] 43456.0 pg/mL Critically high <=900.0 [facility] Comment on above: Performed By: #### M G, CMP, PHOS #### [facility] [address] [place] [address] Dr. Dk Mahoney CBC AUTO DIFFon 05-04-2022 BASO # 0.1 103/ul Normal 0.0-0.1 [facility] Comment on above: Performed By: #### M G, CMP, PHOS #### [facility] [address] [place] [address] Dr. Dk Mahoney Basophils/100 WBC (Bld) 0.7 % Normal 0.2-2.0 [facility] Comment on above: Performed By: #### M G, CMP, PHOS #### [facility] [address] [place] [address] Dr. Dk Mahoney EO # 0.3 103/ul Normal 0.0-0.7 [facility] Comment on above: Performed By: #### M G, CMP, PHOS #### [facility] [address] [place] [address] Dr. Dk Mahoney Eosinophils/100 WBC (Bld) 4.4 % Normal 0.9-7.0 [facility] Comment on above: Performed By: #### M G, CMP, PHOS #### [facility] [address] [place] [address] Dr. Dk Mahoney Erythrocyte distribution width (RBC) [Ratio] 15.4 % Critically high 11.0-15.0 [facility] Comment on above: Performed By: #### M G, CMP, PHOS #### [facility] [address] [place] [address] Dr. Dk Mahoney Hematocrit (Bld) [Volume fraction] 21.6 % Critically low 42.0-54.0 [facility] Comment on above: Performed By: #### M SHIREEN Vidal, PHOS #### [facility] [address] [place] [address] Dr. Dk Mahoney Hemoglobin (Bld) [Mass/Vol] 7.4 g/dL Critically low 14.0-18.0 [facility] Comment on above: Performed By: #### M SHIREEN Vidal, PHOS #### [facility] [address] [place] [address] Dr. Dk Mahoney IG # 0.03 10e3/ul Normal 0.00-0.03 [facility] Comment on above: Performed By: #### M SHIREEN Vidal, PHOS #### [facility] [address] [place] [address] Dr. Dk Mahoney IG % 0.4 % Normal 0.0-0.5 [facility] Comment on above: Performed By: #### M SHIREEN Vidal, PHOS #### [facility] [address] [place] [address] Dr. Dk Mahoney LYMPH # 0.9 103/ul Critically low 1.2-3.8 [facility] Comment on above: Performed By: #### M SHIREEN Vidal, PHOS #### [facility] [address] [place] [address] Dr. Dk Mahoney Lymphocytes/100 WBC (Bld) 13.8 % Critically low 20.5-60.0 [facility] Comment on above: Performed By: #### M Young CMP, PHOS #### [facility] [address] [place] [address] Dr. Dk Mahoney MANUAL DIFF REQ NO Normal [facility] Comment on above: Performed By: #### M Young CMP, PHOS #### [facility] [address] [place] [address] Dr. Dk Mahoney MCH (RBC) [Entitic mass] 28.4 pg Normal 25.9-34.0 [facility] Comment on above: Performed By: #### M Young CMP, PHOS #### [facility] [address] [place] [address] Dr. Dk Mahoney MCHC (RBC) [Mass/Vol] 34.3 g/dL Normal 29.9-35.2 [facility] Comment on above: Performed By: #### M G, CMP, PHOS #### [facility] [address] [place] [address] Dr. Dk Mahoney MCV (RBC) [Entitic vol] 82.8 fL Normal 80.0-94.0 [facility] Comment on above: Performed By: #### M G, CMP, PHOS #### [facility] [address] [place] [address] Dr. Dk Mahoney MONO # 0.6 103/ul Normal 0.3-0.8 [facility] Comment on above: Performed By: #### M G, CMP, PHOS #### [facility] [address] [place] [address] Dr. Dk Mahoney Monocytes/100 WBC (Bld) 8.8 % Normal 1.7-12.0 [facility] Comment on above: Performed By: #### M G, CMP, PHOS #### [facility] [address] [place] [address] Dr. Dk Mahoney NEUT # 4.9 103/ul Normal 1.4-6.5 [facility] Comment on above: Performed By: #### M G, CMP, PHOS #### [facility] [address] [place] [address] Dr. Dk Mahoney Neutrophils/100 WBC (Bld) 71.9 % Normal 43.0-75.0 [facility] Comment on above: Performed By: #### M G, CMP, PHOS #### [facility] [address] [place] [address] Dr. Dk Mahoney Platelet mean volume (Bld) [Entitic vol] 9.3 fL Critically low 9.5-13.5 [facility] Comment on above: Performed By: #### M G, CMP, PHOS #### [facility] [address] [place] [address] Dr. Dk Mahoney PLT 178 103/ul Normal 150-450 [facility] Comment on above: Performed By: #### M SHIREEN Vidal, PHOS #### [facility] [address] [address] [address] Dk Mahoney RBC 2.61 106/ul Critically low 4.70-6.10 [facility] Comment on above: Performed By: #### M SHIREEN Vidal, PHOS #### [facility] [address] [address] [address] Dk Mahoney WBC 6.8 103/ul Normal 4.0-11.0 [facility] Comment on above: Performed By: #### M SHIREEN Vidal, PHOS #### [facility] [address] [address] [address] Dk Mahoney [facility] SARS-CoV-2 (COVID-19) RNA JASON+probe Ql (Unsp spec) Not detected Normal NOT DETECTED [facility] Comment on above: Result Comment: When diagnostic [...] for this test is supported by the [place] of Health and Human Service's declaration that [...] used). Performed By: #### P OCGLUC #### [facility] [address] [address] [address] Dk Mahoney PROF CHEM 8 (BAS METB)on Anion gap [Moles/Vol] 14.7 mmol/L Normal [facility] Comment on above: Performed By: #### M G, CMP, PHOS #### [facility] [address] [address] [address] Dk Mahoney Calcium [Mass/Vol] 9.3 mg/dL Normal 8.5-10.1 [facility] Comment on above: Performed By: #### M G, CMP, PHOS #### [facility] [address] [address] [address] Dk Mahoney Chloride [Moles/Vol] 109 mmol/L Critically high 98-107 [facility] Comment on above: Performed By: #### M G, CMP, PHOS #### [facility] [address] [place] [address] Dr. Dk Mahoney CO2 [Moles/Vol] 21.3 mmol/L Normal 21.0-32.0 [facility] Comment on above: Performed By: #### M Young, CMP, PHOS #### [facility] [address] [place] [address] Dr. Dk Mahoney Creatinine [Mass/Vol] 4.61 mg/dL Critically high 0.70-1.30 [facility] Comment on above: Performed By: #### M Young, CMP, PHOS #### [facility] [address] [place] [address] Dr. Dk Mahoney EGFR-AF BELARUSIAN 15 mL/min/1.73m2 Critically low >=60 [facility] Comment on above: Performed By: #### M G, CMP, PHOS #### [facility] [address] [place] [address] Dr. Dk Mahoney EGFR-NON AF BELARUSIAN 13 mL/min/1.73m2 Critically low >=60 [facility] Comment on above: Performed By: #### M G, CMP, PHOS #### [facility] [address] [place] [address] Dr. Dk Mahoney Glucose [Mass/Vol] 200 mg/dL Critically high 74-106 [facility] Comment on above: Performed By: #### M G, CMP, PHOS #### [facility] [address] [address] [address] Dk Mahoney Potassium [Moles/Vol] 5.0 mmol/L Normal 3.5-5.1 [facility] Comment on above: Performed By: #### M G, CMP, PHOS #### [facility] [address] [address] [address] Dk Mahoney Sodium [Moles/Vol] 140 mmol/L Normal 136-145 [facility] Comment on above: Performed By: #### M G, CMP, PHOS #### [facility] [address] [address] [address] Dk Mahoney Urea nitrogen [Mass/Vol] 64.0 mg/dL Critically high 7.0-18.0 [facility] Comment on above: Performed By: #### M Young, CMP, PHOS #### [facility] [address] [address] [address] Dk Mahoney Urea nitrogen/Creatinine [Mass ratio] 13.9 mg/mg Normal [facility] Comment on above: Performed By: #### M Young, CMP, PHOS #### [facility] [address] [address] [address] Dk Mahoney TROPONIN, HIGH SENSITIVITYon 05-04-2022 HSTROP 29.4 pg/mL Normal 4.0-76.1 [facility] Comment on above: Result Comment: CUT- OFF POINTS HAVE BEEN ESTABLISHED BASED ON THE FOURTH UNIVERSAL DEFINITIONS OF MYOCARDIAL INFARCTION. THE UPPER REFERENCE LIMIT (URL) OF TROPONIN, DEFINED THE 99TH PERCENTILE OF cTnI DISTRIBUTION IN A REFERENCE POPULATION, HAS BEEN CONFIRMED THE DECISION THRESHOLD FOR IN DIAGNOSIS. Performed By: #### M G, CMP, PHOS #### [facility] [address] [address] [address] Dk Mahoney TYPE AND SCREENon 05-04-2022 TYPE AND SCREEN Negative Normal [facility] Comment on above: Performed By: #### A NOE, TNS #### [facility] [address] [address] [address] Dk Mahoney US ROWAN DOP LEG [...] by: ROBERTO HEBERT Date: 2022-05-04 14:33 Normal [facility] PRBC LEUKOREDUCEDon 04-29-19 23 PRBC LEUKOREDUCED Cross Match Result Compatible Unit Blood Type O Neg Unit Number [id number] Status Information Transfused Product ID Red Blood Cells Product Code [id number] Normal [facility] Comment on above: Performed By: #### P RBC #### [facility] [address] [place] [address] Dr. Dk Mahoney ABO RH RETYPEon 04-19-2022 ABO and Rh group Nom (Bld) DONE Normal [facility] Comment on above: Performed By: #### M G, CMP, PHOS #### [facility] [address] [place] [address] Dr. Dk Mahoney CBC AUTO DIFFon 04-19-2022 BASO # 0.1 103/ul Normal 0.0-0.1 [facility] Comment on above: Performed By: #### M G, CMP, PHOS #### [facility] [address] [place] [address] Dr. Dk Mahoney Basophils/100 WBC (Bld) 0.8 % Normal 0.2-2.0 [facility] Comment on above: Performed By: #### M G, CMP, PHOS #### [facility] [address] [place] [address] Dr. Dk Mahoney EO # 0.5 103/ul Normal 0.0-0.7 [facility] Comment on above: Performed By: #### M G, CMP, PHOS #### [facility] [address] [place] [address] Dr. Dk Mahoney Eosinophils/100 WBC (Bld) 6.9 % Normal 0.9-7.0 [facility] Comment on above: Performed By: #### M SHIREEN Vidal, PHOS #### [facility] [address] [place] [address] Dr. Dk Mahoney Erythrocyte distribution width (RBC) [Ratio] 16.3 % Critically high 11.0-15.0 [facility] Comment on above: Performed By: #### M SHIREEN Vidal, PHOS #### [facility] [address] [place] [address] Dr. Dk Mahoney Hematocrit (Bld) [Volume fraction] 20.8 % Critically low 42.0-54.0 [facility] Comment on above: Performed By: #### Rosmery Vidal CMP, PHOS #### [facility] [address] [place] [address] Dr. Dk Mahoney Hemoglobin (Bld) [Mass/Vol] 6.8 g/dL Critically low 14.0-18.0 [facility] Comment on above: Performed By: #### Rosmery Vidal CMP, PHOS #### [facility] [address] [place] [address] Dr. Dk Mahoney IG # 0.04 10e3/ul Critically high 0.00-0.03 [facility] Comment on above: Performed By: #### M SHIREEN Vidal, PHOS #### [facility] [address] [place] [address] Dr. Dk Mahoney IG % 0.6 % Critically high 0.0-0.5 [facility] Comment on above: Performed By: #### M Young CMP, PHOS #### [facility] [address] [place] [address] Dr. Dk Mahoney LYMPH # 1.0 103/ul Critically low 1.2-3.8 [facility] Comment on above: Performed By: #### M Young CMP, PHOS #### [facility] [address] [place] [address] Dr. Dk Mahoney Lymphocytes/100 WBC (Bld) 14.1 % Critically low 20.5-60.0 [facility] Comment on above: Performed By: #### M G, CMP, PHOS #### [facility] [address] [place] [address] Dr. Dk Mahoney MANUAL DIFF REQ NO Normal [facility] Comment on above: Performed By: #### M G, CMP, PHOS #### [facility] [address] [place] [address] Dr. Dk Mahoney MCH (RBC) [Entitic mass] 29.3 pg Normal 25.9-34.0 [facility] Comment on above: Performed By: #### M G, CMP, PHOS #### [facility] [address] [place] [address] Dr. Dk Mahoney MCHC (RBC) [Mass/Vol] 32.7 g/dL Normal 29.9-35.2 [facility] Comment on above: Performed By: #### M G, CMP, PHOS #### [facility] [address] [place] [address] Dr. Dk Mahoney MCV (RBC) [Entitic vol] 89.7 fL Normal 80.0-94.0 [facility] Comment on above: Performed By: #### M G, CMP, PHOS #### [facility] [address] [place] [address] Dr. Dk Mahoney MONO # 0.7 103/ul Normal 0.3-0.8 [facility] Comment on above: Performed By: #### M G, CMP, PHOS #### [facility] [address] [place] [address] Dr. Dk Mahoney Monocytes/100 WBC (Bld) 10.1 % Normal 1.7-12.0 [facility] Comment on above: Performed By: #### M G, CMP, PHOS #### [facility] [address] [place] [address] Dr. Dk Mahoney NEUT # 4.9 103/ul Normal 1.4-6.5 [facility] Comment on above: Performed By: #### M G, CMP, PHOS #### [facility] [address] [place] [address] Dr. Dk Mahoney Neutrophils/100 WBC (Bld) 67.5 % Normal 43.0-75.0 [facility] Comment on above: Performed By: #### M SHIREEN Vidal, PHOS #### [facility] [address] [place] [address] Dr. Dk Mahoney Platelet mean volume (Bld) [Entitic vol] 9.5 fL Normal 9.5-13.5 [facility] Comment on above: Performed By: #### Rosmery Vidal CMP, PHOS #### [facility] [address] [address] [address] Dk Mahoney PLT 212 103/ul Normal 150-450 [facility] Comment on above: Performed By: #### Rosmery Vidal CMP, PHOS #### [facility] [address] [place] [address] Dr. Dk Mahoney RBC 2.32 106/ul Critically low 4.70-6.10 [facility] Comment on above: Performed By: #### Rosmery Vidal CMP, PHOS #### [facility] [address] [place] [address] Dr. Dk Mahoney WBC 7.2 103/ul Normal 4.0-11.0 [facility] Comment on above: Performed By: #### Rosmery Vidal CMP, PHOS #### [facility] [address] [place] [address] Dr. Dk Mahoney [facility]on SARS-CoV-2 (COVID-19) RNA JASON+probe Ql (Unsp spec) Not detected Normal NOT DETECTED [facility] Comment on above: Result Comment: When diagnostic [...] for this test is supported by the [employer] [place] of Health and Human Service's declaration that [...] By: #### Rosmery Vidal CMP, PHOS #### [facility] [address] [place] [address] Dr. Dk Mahoney PROF 14(COMP METB)on 023 Albumin [Mass/Vol] 2.4 g/dL Critically low 3.4-5.0 [facility] Comment on above: Performed By: #### Rosmery Vidal CMP, PHOS #### [facility] [address] [place] [address] Dr. Dk Mahoney Albumin/Globulin [Mass ratio] 0.6 {ratio} Normal [facility] Comment on above: Performed By: #### Rosmery Vidal CMP, PHOS #### [facility] [address] [place] [address] Dr. Dk Mahoney ALP [Catalytic activity/Vol] 142 U/L Critically high 46-116 [facility] Comment on above: Performed By: #### Rosmery Vidal CMP, PHOS #### [facility] [address] [place] [address] Dr. Dk Mahoney ALT [Catalytic activity/Vol] 26 U/L Normal 16-63 [facility] Comment on above: Performed By: #### Rosmery Vidal CMP, PHOS #### [facility] [address] [place] [address] Dr. Dk Mahoney Anion gap [Moles/Vol] 12.0 mmol/L Normal [facility] Comment on above: Performed By: #### Rosmery Vidal CMP, PHOS #### [facility] [address] [place] [address] Dr. Dk Mahoney AST [Catalytic activity/Vol] 19 U/L Normal 15-37 [facility] Comment on above: Performed By: #### Rosmery Vidal CMP, PHOS #### [facility] [address] [place] [address] Dr. Dk Mahoney Bilirubin [Mass/Vol] 0.3 mg/dL Normal 0.2-1.0 [facility] Comment on above: Performed By: #### M G, CMP, PHOS #### [facility] [address] [address] [address] Dk Mahoney Calcium [Mass/Vol] 9.3 mg/dL Normal 8.5-10.1 [facility] Comment on above: Performed By: #### M G, CMP, PHOS #### [facility] [address] [address] [address] Dk Mahoney Chloride [Moles/Vol] 109 mmol/L Critically high 98-107 [facility] Comment on above: Performed By: #### M G, CMP, PHOS #### [facility] [address] [place] [address] Dr. Dk Mahoney CO2 [Moles/Vol] 25.0 mmol/L Normal 21.0-32.0 [facility] Comment on above: Performed By: #### M G, CMP, PHOS #### [facility] [address] [address] [address] Dk Mahoney Creatinine [Mass/Vol] 4.83 mg/dL Critically high 0.70-1.30 [facility] Comment on above: Performed By: #### M G, CMP, PHOS #### [facility] [address] [address] [address] Dk Mahoney EGFR-AF BELARUSIAN 15 mL/min/1.73m2 Critically low >=60 [facility] Comment on above: Performed By: #### M G, CMP, PHOS #### [facility] [address] [address] [address] Dk Mahoney EGFR-NON AF BELARUSIAN 12 mL/min/1.73m2 Critically low >=60 [facility] Comment on above: Performed By: #### M G, CMP, PHOS #### [facility] [address] [address] [address] Dk Mahoney Globulin (S) [Mass/Vol] 4.1 g/dL Normal [facility] Comment on above: Performed By: #### M G, CMP, PHOS #### [facility] [address] [address] [address] Dk Mahoney Glucose [Mass/Vol] 128 mg/dL Critically high 74-106 [facility] Comment on above: Performed By: #### M G, CMP, PHOS #### [facility] [address] [address] [address] Dk Mahoney Potassium [Moles/Vol] 5.0 mmol/L Normal 3.5-5.1 [facility] Comment on above: Performed By: #### M G, CMP, PHOS #### [facility] [address] [address] [address] Dk Mahoney Protein [Mass/Vol] 6.5 g/dL Normal 6.4-8.2 [facility] Comment on above: Performed By: #### M G, CMP, PHOS #### [facility] [address] [address] [address] Dk Mahoney Sodium [Moles/Vol] 141 mmol/L Normal 136-145 [facility] Comment on above: Performed By: #### M G, CMP, PHOS #### [facility] [address] [place] [address] Dr. Dk Mahoney Urea nitrogen [Mass/Vol] 62.0 mg/dL Critically high 7.0-18.0 [facility] Comment on above: Performed By: #### M G, CMP, PHOS #### [facility] [address] [address] [address] Dk Mahoney Urea nitrogen/Creatinine [Mass ratio] 12.8 mg/mg Normal [facility] Comment on above: Performed By: #### M G, CMP, PHOS #### [facility] [address] [place] [address] Dr. Dk Mahoney PROTIMEon 04-19-2022 INR Coag (PPP) [Relative time] 1.01 {INR} Normal [facility] Comment on above: Performed By: #### P OCGLUC #### [facility] [address] [place] [address] Dr. Dk Mahoney INR GUIDELINES SEE BELOW Normal [facility] Comment on above: Result Comment: JOSELO RED INR: 2.0 - 3.0 CONDITIONS NOT LISTED BELOW 2.5 - 3.5 FOR PROSTHETIC HEART VALVE REPLACEMENT 2.5 - 3.5 RECURRENT THROMBOSIS Performed By: #### P OCGLUC #### [facility] [address] [place] [address] Dr. Dk Mahoney PT Coag (PPP) [Time] 10.9 s Normal 9.0-11.6 [facility] Comment on above: Performed By: #### P OCGLUC #### [facility] [address] [place] [address] Dr. Dk Mahoney PTTon 04-19-2022 aPTT Coag (Bld) [Time] 25.8 s Normal 22.3-36.2 [facility] Comment on above: Performed By: #### P OCGLUC #### [facility] [address] [place] [address] Dr. Dk Mahoney TYPE AND SCREENon 04-19-2022 TYPE AND SCREEN Negative Normal [facility] Comment on above: Performed By: #### P OCGLUC #### [facility] [address] [place] [address] Dr. Dk Mahoney CBC AUTO DIFFon 10-24-2021 BASO # 0.1 103/ul Normal 0.0-0.1 [facility] Comment on above: Performed By: #### C BC #### [facility] [address] [place] [address] Dr. Dk Mahoney Basophils/100 WBC (Bld) 0.7 % Normal 0.2-2.0 [facility] Comment on above: Performed By: #### C BC #### [facility] [address] [place] [address] Dr. Dk Mahoney EO # 0.6 103/ul Normal 0.0-0.7 [facility] Comment on above: Performed By: #### C BC #### [facility] [address] [place] [address] Dr. Dk Mahoney Eosinophils/100 WBC (Bld) 7.7 % Critically high 0.9-7.0 [facility] Comment on above: Performed By: #### C BC #### [facility] [address] [place] [address] Dr. Dk Mahoney Erythrocyte distribution width (RBC) [Ratio] 17.2 % Critically high 11.0-15.0 [facility] Comment on above: Performed By: #### C BC #### [facility] [address] [place] [address] Dr. Dk Mahoney Hematocrit (Bld) [Volume fraction] 26.1 % Critically low 42.0-54.0 [facility] Comment on above: Performed By: #### C BC #### [facility] [address] [place] [address] Dr. Dk Mahoney Hemoglobin (Bld) [Mass/Vol] 8.1 g/dL Critically low 14.0-18.0 [facility] Comment on above: Performed By: #### C BC #### [facility] [address] [place] [address] Dr. Dk Mahoney IG # 0.06 10e3/ul Critically high 0.00-0.03 [facility] Comment on above: Performed By: #### C BC #### [facility] [address] [place] [address] Dr. Dk Mahoney IG % 0.8 % Critically high 0.0-0.5 [facility] Comment on above: Performed By: #### C BC #### [facility] [address] [place] [address] Dr. Dk Mahoney LYMPH # 1.4 103/ul Normal 1.2-3.8 [facility] Comment on above: Performed By: #### C BC #### [facility] [address] [place] [address] Dr. Dk Mahoney Lymphocytes/100 WBC (Bld) 18.1 % Critically low 20.5-60.0 [facility] Comment on above: Performed By: #### C BC #### [facility] [address] [place] [address] Dr. Dk Mahoney MANUAL DIFF REQ NO Normal [facility] Comment on above: Performed By: #### C BC #### [facility] [address] [place] [address] Dr. Dk Mahoney MCH (RBC) [Entitic mass] 25.6 pg Critically low 25.9-34.0 [facility] Comment on above: Performed By: #### C BC #### [facility] [address] [place] [address] Dr. Dk Mahoney MCHC (RBC) [Mass/Vol] 31.0 g/dL Normal 29.9-35.2 [facility] Comment on above: Performed By: #### C BC #### [facility] [address] [place] [address] Dr. Dk Mahoney MCV (RBC) [Entitic vol] 82.3 fL Normal 80.0-94.0 [facility] Comment on above: Performed By: #### C BC #### [facility] [address] [place] [address] Dr. Dk Mahoney MONO # 0.9 103/ul Critically high 0.3-0.8 [facility] Comment on above: Performed By: #### C BC #### [facility] [address] [place] [address] Dr. Dk Mahoney Monocytes/100 WBC (Bld) 12.4 % Critically high 1.7-12.0 [facility] Comment on above: Performed By: #### C BC #### [facility] [address] [place] [address] Dr. Dk Mahoney NEUT # 4.6 103/ul Normal 1.4-6.5 [facility] Comment on above: Performed By: #### C BC #### [facility] [address] [place] [address] Dr. Dk Mahoney Neutrophils/100 WBC (Bld) 60.3 % Normal 43.0-75.0 [facility] Comment on above: Performed By: #### C BC #### [facility] [address] [place] [address] Dr. Dk Mahoney Platelet mean volume (Bld) [Entitic vol] 9.5 fL Normal 9.5-13.5 [facility] Comment on above: Performed By: #### C BC #### [facility] [address] [address] [address] Dk Mahoney PLT 201 103/ul Normal 150-450 [facility] Comment on above: Performed By: #### C BC #### [facility] [address] [address] [address] Dk Mahoney RBC 3.17 106/ul Critically low 4.70-6.10 [facility] Comment on above: Performed By: #### C BC #### [facility] [address] [address] [address] Dk Mahoney WBC 7.5 103/ul Normal 4.0-11.0 [facility] Comment on above: Performed By: #### C BC #### [facility] [address] [place] [address] Dr. Dk Mahoney PROF CHEM 8 (BAS METB)on Anion gap [Moles/Vol] 12.3 mmol/L Normal [facility] Comment on above: Performed By: #### M Young, CMP, PHOS #### [facility] [address] [place] [address] Dr. Dk Mahoney Calcium [Mass/Vol] 9.6 mg/dL Normal 8.5-10.1 [facility] Comment on above: Performed By: #### M G, CMP, PHOS #### [facility] [address] [place] [address] Dr. Dk Mahoney Chloride [Moles/Vol] 107 mmol/L Normal 98-107 [facility] Comment on above: Performed By: #### M G, CMP, PHOS #### [facility] [address] [place] [address] Dr. Dk Mahoney CO2 [Moles/Vol] 26.5 mmol/L Normal 21.0-32.0 [facility] Comment on above: Performed By: #### M G, CMP, PHOS #### [facility] [address] [place] [address] Dr. Dk Mahoney Creatinine [Mass/Vol] 3.76 mg/dL Critically high 0.70-1.30 [facility] Comment on above: Performed By: #### M oYung, CMP, PHOS #### [facility] [address] [address] [address] Dk Mahoney EGFR-AF BELARUSIAN 19 mL/min/1.73m2 Critically low >=60 [facility] Comment on above: Performed By: #### M G, CMP, PHOS #### [facility] [address] [address] [address] Dk Mahoney EGFR-NON AF BELARUSIAN 16 mL/min/1.73m2 Critically low >=60 [facility] Comment on above: Performed By: #### M Young, CMP, PHOS #### [facility] [address] [address] [address] Dk Mahoney Glucose [Mass/Vol] 143 mg/dL Critically high 74-106 [facility] Comment on above: Performed By: #### M Young, CMP, PHOS #### [facility] [address] [address] [address] Dk Mahoney Potassium [Moles/Vol] 4.8 mmol/L Normal 3.5-5.1 [facility] Comment on above: Performed By: #### M Young, CMP, PHOS #### [facility] [address] [address] [address] Dk Mahoney Sodium [Moles/Vol] 141 mmol/L Normal 136-145 [facility] Comment on above: Performed By: #### M G, CMP, PHOS #### [facility] [address] [address] [address] Dk Mahoney Urea nitrogen [Mass/Vol] 47.0 mg/dL Critically high 7.0-18.0 [facility] Comment on above: Performed By: #### M G, CMP, PHOS #### [facility] [address] [address] [address] Dk Mahoney Urea nitrogen/Creatinine [Mass ratio] 12.5 mg/mg Normal [facility] Comment on above: Performed By: #### M SHIREEN Vidal PHOS #### [facility] [address] [address] [address] Dk Mahoney US ROWAN DOP LEG [...] MARQUES AMAYA Date: 2021-10-24 18:07 Normal [facility] Office Visit (Urology)on Follow-up visit Diagnoses/Problems Assessed [...] current UTI. Signatures Electronically signed by : Reebcca Hunt MD; Sep 06 2020 2:12PM EST (Author) Normal [employer] Microscopic UrinalysisOrdere d By: Riana Pro on 08-29-2020 - [employer] Work Phone: Amorphous, UA NOT REPORTED None [employer] Work Phone: Bacteria, UA 2+ Abnormal None [facility] Work Phone: Casts UA NOT REPORTED /LPF [facility] Work Phone: Crystals, UA NOT REPORTED None /HPF [employer] [facility] Work Phone: Epithelial Cells UA 2 TO 5 [employer] Work Phone: Interpretation and review of laboratory results Abnormal [facility] Work Phone: Mucus, UA NOT REPORTED None [facility] Work Phone: Other Observations UA NOT REPORTED NOT REQ. [employer] Work Phone: RBC, UA 50 TO 100 [employer] Work Phone: Renal Epithelial, UA NOT REPORTED 0 /HPF [facility] Work Phone: Trichomonas, UA NOT REPORTED None [employer] [facility] Work Phone: WBC, UA GREATER THAN 100 [facility] Work Phone: Yeast, UA NOT REPORTED None [employer] Work Phone: [employer] Work Phone: Urinalysis Reflex to Culture Ordered By: Riana Pro on 08-29-2020 Bilirubin Urine Negative NEGATIVE [facility] Work Phone: Color, UA YELLOW YELLOW [employer] Work Phone: Glucose, Ur Negative NEGATIVE [employer] Work Phone: Interpretation and review of laboratory results Abnormal [employer] Work Phone: Ketones Ql (U) Negative NEGATIVE [employer] Work Phone: Leukocyte esterase Test strip Ql (U) LARGE Abnormal NEGATIVE [employer] Phone: Nitrite, Urine Positive Abnormal NEGATIVE [employer] Work Phone: pH, UA 7.5 [facility] [employer] Work Phone: Protein, UA 1+ Abnormal NEGATIVE [employer] Work Phone: Specific [place], UA 1.010 [employer] Work Phone: Turbidity UA CLEAR CLEAR [employer] Work Phone: Urinalysis Comments NOT REPORTED [facility] [employer] Work Phone: Urine Hgb 3+ Abnormal NEGATIVE [facility] Work Phone: Urobilinogen, Urine Normal Normal [facility] Work Phone: [facility] Work Phone: Microscopic Urinalysison Amorphous, UA NOT REPORTED None [facility] [place], [place] Bacteria, UA 2+ Abnormal None [facility] [place], [place] Casts UA NOT REPORTED /LPF [facility] [employer] [place] Crystals, UA NOT REPORTED None /HPF [facility] [employer] [place] Epithelial Cells UA 2 TO 5 [facility] [employer] Interpretation and review of laboratory results Abnormal [place], [place] Mucus, UA NOT REPORTED None [place], [place] Other Observations UA NOT REPORTED NOT REQ. [place] RBC (U) [#/Vol] 20 TO 50 [place], [place] Renal Epithelial, UA NOT REPORTED 0 /HPF [place] Trichomonas, UA NOT REPORTED None [place] WBC, UA GREATER THAN 100 [place] Yeast, UA NOT REPORTED None [place], [place] - [place] Urinalysison 02-03-2020 Bilirubin Urine Negative NEGATIVE [place] Color, UA YELLOW YELLOW [place] Glucose, Ur Negative NEGATIVE [place] Interpretation and review of laboratory results Abnormal [place] Ketones Ql (U) Negative NEGATIVE [place] Leukocyte esterase Test strip Ql (U) LARGE Abnormal NEGATIVE [place] Nitrite, Urine Positive Abnormal NEGATIVE [place] pH, UA 8.0 [place] Protein (U) [Mass/Vol] TRACE Abnormal NEGATIVE [place] Specific [place], UA 1.015 [place] Turbidity UA SLIGHTLY CLOUDY Abnormal CLEAR [place] Urinalysis Comments NOT REPORTED [place] Urine Hgb 3+ Abnormal NEGATIVE [place] Urobilinogen, Urine Normal Normal [place] Vital Signs Date Time Vital Sign Value Performing Clinician Facility 10-08-2022 12:20-0400 Body height 180.34 cm Devaughn Lucio Other [facility] [employer] Other 10-08-2022 12:20-0400 Body temperature 96.6 [degF] Devaughn Aviladir Other [facility] Other 10-08-2022 12:20-0400 Diastolic blood pressure 60 mm[Hg] Devaughn Lucio Other [facility] Other 10-08-2022 12:20-0400 Respiratory rate 18 /min Devaughn Khadijah Other [facility] Other 10-08-2022 12:20-0400 SaO2% (BldA) [Mass fraction] 100 % Devaughn Khadijah Other [facility] Other 10-08-2022 12:20-0400 Systolic blood pressure 121 mm[Hg] Devaughn Khadijah Other [facility] Other 10-01-2022 13:30-0400 Body height 180.34 cm Erik Sanderson Other [facility] Other 10-01-2022 13:30-0400 Body mass index (BMI) [Ratio] 42.12 kg/m2 Erik Shepherdrer Other [facility] Other 10-01-2022 13:30-0400 Body temperature 97.2 [degF] Erik Shepherdrer Other [facility] Other 10-01-2022 13:30-0400 Body weight 136.99 kg Erik Shepherdrer Other [facility] Other 10-01-2022 13:30-0400 Diastolic blood pressure 68 mm[Hg] Erik Ariasehrer Other [facility] Other 10-01-2022 13:30-0400 SaO2% (BldA) [Mass fraction] 97 % Erik Ariasehrer Other [facility] Other 10-01-2022 13:30-0400 Systolic blood pressure 138 mm[Hg] Erik Sanderson Other [facility] Other Encounters Encounter Date Encounter Type Care Provider Facility Start: 01-17-2023 End: 01-18-2023 ambulatory BLANCA Mahoney [facility] Start: 10-21-2022 End: 10-21-2022 ambulatory Devaughn Khadijah Other [facility] Other Start: 10-21-2022 Telephone encounter Devaughn Khadijah [facility] Start: 10-18-2022 End: 10-18-2022 ambulatory Devaughn Khadijah Other [facility] Other Start: 10-18-2022 Telephone encounter Devaughn Khadijah [facility] Start: 10-08-2022 End: 10-08-2022 ambulatory Devaughn Khadijah Other [facility] Other Start: 10-08-2022 Office outpatient visit 15 minutes Devaughn Khadijah [facility] Start: 10-01-2022 End: 10-01-2022 ambulatory Erik Sanderson Other [facility] Other Start: 10-01-2022 Office outpatient visit 25 minutes Erik Sanderson [facility] Start: 08-31-2022 End: 09-01-2022 ambulatory ЕЛЕНА SAMSON Facility:[id number] Start: 08-30-2022 End: 09-04-2022 Evaluation and management of inpatient Eldon López Facility:[facility] Start: 07-05-2022 End: 07-07-[address] ERIK RHODES . Facility:[facility] Start: 05-04-2022 End: 05-04-2022 ambulatory ROBERTO HEBERT Facility:[facility] Start: 04-19-2022 End: 04-19-[address] ERIK RHODES . Facility:[facility] Start: 03-14-2022 End: 12-01-[address] NONE LISTED REQUEST Facility: Start: 10-24-2021 End: 10-24-2021 ambulatory PA FUAD KEVIN . Facility: Start: 08-29-2020 End: 08-29-2020 [facility] Start: 02-03-2020 End: 02-03-2020 Subsequent hospital visit by physician [facility] Laboratory Procedures Date Procedure Procedure Detail Performing Clinician Start: 08-31-2022 Antibody screen Eldon López Comment on above: Order Comment: NEEDS DRAWN Result Comment: PERF ORMED BY: [facility] [address] [place] [address] PATHOLOGIST EYE PHYSICIAN BRANDEN WHATLEY M.D. Start: 08-29-2020 Urinalysis microscop [...] Influenza vaccination Flu vacc ine (Season Ended) [facility] Work Phone: Start: 04-30-2020 Creatinine measurement Creatinine mo nitoring [place], [place] Start: 04-30-2020 Potassium monitoring Potassium monit [place]ing [place] Start: 12-14-2019 Influenza vaccination Flu vaccine (# 1) [place] Start: 02-08-2019 Annual Wellness Visi t (AWV) Annual Wellness Visit (AWV) [place] Start: 09-11-2015 Pneumococcal 65+ yea rs Vaccine (1 of 1 - PPSV23) Pneumococcal 65+ years Vaccine (1 of 1 - PPSV23) [place] Start: 2000 Screening for malign ant neoplasm of colon Colon cancer screen colonoscopy [place], [place] Start: 2000 Shingles Vaccine (1 of 2) Ordoñez gles Vaccine (1 of 2) [place] Start: 1969 DTaP/Tdap/Td vaccine (1 - Tdap) DTaP/Tdap/Td vaccine (1 - Tdap) [place] Start: 1962 COVID-19 Vaccine (1) COVID-19 Vaccin e (1) [facility] Phone: Start: 1960 Lipid panel Lipid screen [place], [place] Start: 1950 Hepatitis C screening Hepatitis C sc reen [place] End: 02-03-2020 Culture, Urine Culture, Urine Microbiology Routine Once for 1 Occurrences starting 02/03/2020 until 02/03/2020 [place] Comment on above: Once for 1 Occurrenc es starting 02/03/2020 until 02/03/2020 Culture, Urine [place] End: 08-29-2020 Culture, Urine Culture, Urine Microbiology Routine Once for 1 Occurrences starting 08/29/2020 until 08/29/2020 [facility] [employer] Phone: Comment on above: Once for 1 Occurrenc es starting 08/29/2020 until 08/29/2020 Payers Date Payer Category Payer Self-pay 2022 Unknown [id number] 2022 Medicare [id number] 2020 Medicare [id number] 2019 Medicare [id number] 2019 Unknown [id number] 2014 Medicare [employer] MEDICARE [employer] [facility] [id number] 2014-Present [address] [address] [place] [address] [id number] 1950 Unknown [id number] 1950 Unknown [id number] 1950 Unknown [id number] 1950 Unknown [id number] 1950 Unknown [id number] 1950 Unknown [id number] 1950 Unknown [id number] Medicare [id number] Unknown [id number] Social History Date Type Detail Facility Start: 02-05-2019 Tobacco smoking status NHIS Unknown if ever smoked [facility] [address] [address] [place] Start: 1950 Sex Assigned At Not on file [facility] [place] Sex Assigned At Sex Assigned At [facility] Other Evaluation note 10-08-2022 Note Date & Type Note Facility 10-08-2022 Evaluation note Encounter Date Diagnosis Assessment Notes Sep, CKD (chronic kidney disease) stage 4, GFR 15-29 ml/min (ICD-10 - N18.4) He has a CKD due to the longstanding hypertension and recurrent SHAWN due to the obstructive uropathy. He recently required hemodialysis due to the obstructive uropathy. He was monitored by the ID and catheter was removed as his renal function was improving as per the patient. Patient currently bedbound and can not be transferred out of the stretcher at our office. He does not want to follow-up in our office. Advised him to continue follow with the PCP and the [facility] for CKD and renal function monitoring Patient's recent lab from the ID are not available. 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 He appears to be euvolemic. Continue current medications. Sep, Secondary hyperparathyroidism (ICD-10 - N25.81) Continue sevelamer and vitamin D as prescribed by ID physician. Continue to follow with the ID [place] [place]. Sep, Anemia of renal disease (ICD-10 - D63.1) Continue oral iron. Sep, Nephrolithiasis (ICD-10 - N20.0) Continue follow up with urology. [facility] Other Evaluation note 10-01-2022 Note Date & [...] this well and a dressing was applied. 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 [employer] [facility]. provides no warranty or guarantee of the accuracy or completeness of information in this document.
--- OUTSIDE RECORDS SUMMARY | 2023-08-17 16:04 | XMS_ITS | CCD ---
Author Organization [facility] Care Team Providers Care Edge Burnisher Uppers Name Role Phone Unavailable Primary Care Provider [...] (antibiotic) (1 source) Penicillins Drug Allergy 02-06-20 [facility] (1 source) Penicillins Propensity to adverse reactions to drug 02-06-20 [facility] [place], [place] (2 sources) Penicillin; Translations: [penicillin] Drug Allergy [facility] (2 sources) Sulfamethoxazole / Trimethoprim; Translations: [Bactrim] Drug Allergy [facility] (1 source) No Known Medication Allergies; Translations: [No Known Medication Allergies] Propensity to adverse reactions (disorder) [facility] (3 sources) Penicillin G Drug Allergy Unknown [facility] Other (3 sources) Sulfamethoxazole / Trimethoprim Drug Allergy Unknown [facility] Other (1 source) Penicillins Drug allergy (disorder) 08-31-19 [facility] (1 source) Sulfamethoxazole Drug Allergy 08-31-19 [facility] (1 source) Trimethoprim Drug Allergy 08-31-19 [facility] Medications Current Medications Medication Drug [...] mouth every morning (before breakfast) 0 Active [id number] 200 actuat albuterol 0.09 mg/actuat metered dose [...] Once a day Active polyethylene glycol 3350 64038 mg powder for oral solution (3 sources) [...] disease (2 sources) Atherosclerotic heart disease of [place] coronary artery without angina pectoris; Translations: [Chronic [...] Onset: 2 Chronic Other aftercare (1 source) USP (current) use of aspirin; Translations: [JAIL CURRENT USE OF ASPIRIN] Onset: 3 Episodic Other aftercare (1 source) Other 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 [address] Mowing Machine Operator: Rao Espinosa MD UA w/Reflex Cultureon 2022 Bilirubin, SemiQt,Ur Negative Normal NEG [facility] Comment on above: Performed By: #### U RADHAO, UAX #### [facility] [address] [place] [address] Mowing Machine Operator: Rao Espinosa MD Blood, Urine 2+ Abnormal NEG [facility] Comment on above: Performed By: #### U RADHAO, UAX #### [facility] [address] [place] [address] Mowing Machine Operator: Rao Espinosa MD Clarity (U) Cloudy Abnormal CLEAR [facility] Comment on above: Performed By: #### U RADHAO, UAX #### [facility] [address] [place], [place] [id number] Mowing Machine Operator: Rao Espinosa MD Color (U) Yellow Normal YEL [facility] Comment on above: Performed By: #### U MICAO, UAX #### [facility] [address] [place], [place] [id number] Mowing Machine Operator: Rao Espinosa MD Glucose Ql (U) TRACE Abnormal NEG [facility] Comment on above: Performed By: #### U MICAO, UAX #### [facility] [address] [place], [place] [phone] Mowing Machine Operator: Rao Espinosa MD Ketones Ql (U) Negative Normal NEG [facility] Comment on above: Performed By: #### U MICAO, UAX #### [facility] [address] [place] [address] [address] [place], [place] [id number] Mowing Machine Operator: Rao Espinosa MD Leukocyte esterase Test strip Ql (U) LARGE Abnormal NEG [facility] Comment on above: Performed By: #### U MICAO, UAX #### [facility] [address] [place] [address] [address] [place], [place] [id number] Mowing Machine Operator: Rao Espinosa MD Nitrite,Ur Positive Abnormal NEG [facility] Comment on above: Performed By: #### U MICAO, UAX #### [facility] [address] [place], [place] [phone] Mowing Machine Operator: Rao Espinosa MD PH,Ur 7.0 Normal 5.0-9.0 [facility] Comment on above: Performed By: #### U MICAO, UAX #### [facility] [address] [place] [address] [address], [place] [phone] Mowing Machine Operator: Rao Espinosa MD Protein Ql (U) 1+ mg/dL Abnormal NEG [facility] Comment on above: Performed By: #### U MICAO, UAX #### [facility] [address] [place], [place] [phone] Mowing Machine Operator: Rao Espinosa MD Spec. [place],Ur 1.010 Normal 1.010-1.020 [facility] Comment on above: Performed By: #### U MICAO, UAX #### [facility] [address] [place], [place] [phone] Mowing Machine Operator: Rao Espinosa MD Urobilinogen,Ur Normal Normal 0.0-1.0 [facility] Comment on above: Performed By: #### U MICAO, UAX #### [facility] [address] [place], [place] [phone] Mowing Machine Operator: Rao Espinosa MD Urinalysis,Microon 3 Bacteria 3+ Abnormal NONE [facility] Comment on above: Performed By: #### U MICAO, UAX #### [facility] [address] [place], [place] [phone] Mowing Machine Operator: Rao Espinosa MD Epithelial cells LM Ql (Urine sed) 0 TO 2 Normal 0-5 [facility] Comment on above: Performed By: #### U MICAO, UAX #### [facility] [address] [place], [place] [phone] Mowing Machine Operator: Rao Espinosa MD Urine RBC's 5 TO 10 Normal 0-2 [facility] Comment on above: Performed By: #### U MICAO, UAX #### [facility] [address] [place], [place] [phone] Mowing Machine Operator: Rao Espinosa MD Urine WBC's GREATER THAN 100 Normal 0-5 [facility] Comment on above: Performed By: #### U MICAO, UAX #### [facility] [address] [place] [address] Mowing Machine Operator: Rao Espinosa MD Glucose Poct Glucometerson 0 09-04-2022 Glucose [Mass/Vol] 122 mg/dL Normal [facility] Comment on above: Result Comment: [facility] Glucose Reference Range is dependent on time and content of last meal. Glucose of more than 200 mg/dL in a nonstressed, ambulatory subject supports the diagnosis of Diabetes Mellitus. PERFORMED BY: [facility] [address] [place] [address] PATHOLOGIST SPECIAL PROCEDURE TECH BRANDEN WHATLEY M.D. Performed By: #### G LULS #### Point of Care testing , Renal Function Panelon 09-04 Albumin [Mass/Vol] 2.4 g/dL Low 3.5-5.7 [facility] Comment on above: Performed By: #### G LULS #### Point of Care testing , Anion gap [Moles/Vol] 14.8 mmol/L Normal 6.0-15.0 [facility] Comment on above: Performed By: #### G LULS #### Point of Care testing , Calcium [Mass/Vol] 8.6 mg/dL Normal 8.6-10.3 [facility] Comment on above: Performed By: #### G LULS #### Point of Care testing , Chloride [Moles/Vol] 99 mmol/L Normal 98-107 [facility] Comment on above: Performed By: #### G LULS #### Point of Care testing , CO2 [Moles/Vol] 24.7 mmol/L Normal 21.0-31.0 [facility] Comment on above: Performed By: #### G LULS #### Point of Care testing , Creatinine [Mass/Vol] 6.52 mg/dL Significan t change up 0.70-1.30 [facility] Comment on above: Performed By: #### G LULS #### Point of Care testing , Creatinine Clr Calc Pharmacy 16.01 [facility] Comment on above: Result Comment: PERF ORMED BY: [facility] [address] [place] [address] PATHOLOGIST SPECIAL PROCEDURE TECH JIANLAN SUN M.D. Performed By: #### G LULS #### Point of Care testing , GFR/1.73 sq M.predicted MDRD (S/P/Bld) [Vol rate/Area] 8.483 mL/min/{1.73_m2} Normal [facility] Comment on above: Performed By: #### G LULS #### Point of Care testing , Glucose [Mass/Vol] 115 mg/dL High 70-100 [facility] Comment on above: Result Comment: [place] Glucose Reference Range is dependent on time and content of last meal. Glucose of more than 200 mg/dL in a nonstressed, ambulatory subject supports the diagnosis of Diabetes Mellitus. ADA recommended reference range Performed By: #### G LULS #### Point of Care testing , Phosphate [Mass/Vol] 6.4 mg/dL Normal 3.7-7.2 [facility] Comment on above: Performed By: #### G LULS #### Point of Care testing , Potassium [Moles/Vol] 4.5 mmol/L Normal 3.5-5.1 [facility] Comment on above: Performed By: #### G LULS #### Point of Care testing , Sodium [Moles/Vol] 134 mmol/L Low 136-145 [facility] Comment on above: Performed By: #### G LULS #### Point of Care testing , Urea nitrogen [Mass/Vol] 76 mg/dL High 7-25 [facility] Comment on above: Performed By: #### G LULS #### Point of Care testing , [facility] SARS-CoV-2 (COVID-19) RNA JASON+probe Ql (Unsp spec) Negative Normal Negative [facility] Comment on above: Order Comment: Healt hcare Worker?: N Result Comment: Testing for SARS-CoV-2 by RT-PCR This test was developed and its performance characteristics determined by [employer] and validated at the [facility]. This test has not been FDA [...] is terminated or revoked sooner. PERFORMED BY: [place] [address] PATHOLOGIST SPECIAL PROCEDURE TECH BRANDEN WHATLEY M.D. Performed By: #### F E and TIBC, [id number], ODALIS #### [address] Glucose Poct Glucometerson 0 09-03-2022 Glucose [Mass/Vol] 152 mg/dL Normal [facility] Comment on above: Result Comment: [facility] Glucose Reference Range is dependent on time and content of last meal. Glucose of more than 200 mg/dL in a nonstressed, ambulatory subject supports the diagnosis of Diabetes Mellitus. PERFORMED BY: [place] [address] PATHOLOGIST SPECIAL PROCEDURE TECH BRANDEN WHATLEY M.D. Performed By: #### G LULS #### Point of Care testing , Glucose [Mass/Vol] 111 mg/dL Normal [facility] Comment on above: Result Comment: [facility] Glucose Reference Range is dependent on time and content of last meal. Glucose of more than 200 mg/dL in a nonstressed, ambulatory subject supports the diagnosis of Diabetes Mellitus. PERFORMED BY: [place] [address] PATHOLOGIST SPECIAL PROCEDURE TECH BRANDEN WHATLEY M.D. Performed By: #### G LULS #### Point of Care testing , Glucose [Mass/Vol] 106 mg/dL Normal [facility] Comment on above: Result Comment: [facility] Glucose Reference Range is dependent on time and content of last meal. Glucose of more than 200 mg/dL in a nonstressed, ambulatory subject supports the diagnosis of Diabetes Mellitus. PERFORMED BY: [facility] [address] [place] [address] PATHOLOGIST SPECIAL PROCEDURE TECH BRANDEN WHATLEY M.D. Performed By: #### G LULS #### Point of Care testing , Glucose [Mass/Vol] 140 mg/dL Normal [facility] Comment on above: Result Comment: [facility] Glucose Reference Range is dependent on time and content of last meal. Glucose of more than 200 mg/dL in a nonstressed, ambulatory subject supports the diagnosis of Diabetes Mellitus. PERFORMED BY: [facility] [address] [place] [address] PATHOLOGIST SPECIAL PROCEDURE TECH BRANDEN WHATLEY M.D. Performed By: #### G LULS #### Point of Care testing , Hemogram CBC Without Diffon 09-03-2022 Erythrocyte distribution width (RBC) [Ratio] 14.9 % High 12.0-14.8 [facility] Comment on above: Performed By: #### G LULS #### Point of Care testing , Hematocrit (Bld) [Volume fraction] 25.1 % Low 38.8-50.0 [facility] Comment on above: Performed By: #### G LULS #### Point of Care testing , Hemoglobin (Bld) [Mass/Vol] 8.4 g/dL Low 13.0-17.0 [facility] Comment on above: Performed By: #### G LULS #### Point of Care testing , MCH (RBC) [Entitic mass] 29.5 pg Normal 27.5-35.2 [facility] Comment on above: Performed By: #### G LULS #### Point of Care testing , MCV (RBC) [Entitic vol] 87.8 fL Normal 83.5-101 [facility] Comment on above: Performed By: #### G LULS #### Point of Care testing , Mean Corpuscular HGB Conc 33.5 g/dL Normal 32.5-35.6 [facility] Comment on above: Performed By: #### G LULS #### Point of Care testing , Platelet mean volume (Bld) [Entitic vol] 8.0 fL Normal 6.6-10.1 [facility] Comment on above: Result Comment: PERF ORMED BY: [place] [address] PATHOLOGIST SPECIAL PROCEDURE TECH BRANDEN WHATLEY M.D. Performed By: #### G LULS #### Point of Care testing , Platelets (Bld) [#/Vol] 111 10*3/uL Significant change down 150-450 [facility] Comment on above: Performed By: #### G LULS #### Point of Care testing , RBC (Bld) [#/Vol] 2.86 10*6/uL Low 3.90-5.60 [facility] Comment on above: Performed By: #### G LULS #### Point of Care testing , WBC (Bld) [#/Vol] 8.1 10*3/uL Normal 4.1-10.5 [facility] Comment on above: Performed By: #### G LULS #### Point of Care testing , Hepatitis Acute Panelon 08-13 HBsAg Screen Negative Normal Negative [facility] Comment on above: Order Comment: pt no t in room Performed By: #### F E and TIBC, [id number], ODALIS #### [facility] [address] [place] [address] Hepatitis A Antibody IgM Negative Normal Negative [facility] Comment on above: Order Comment: pt no t in room Performed By: #### F E and TIBC, [id number], ODALIS #### [facility] [address] [place] [address] Hepatitis B Core Antibody IgM Negative Normal Negative [facility] Comment on above: Order Comment: pt no t in room Result Comment: Ve rified by repeat analysis Performed By: #### F E and TIBC, [id number], ODALIS #### [facility] [address] [place] [address] Hepatitis C Virus Antibody Non-Reactive Normal Non Reactive [facility] Comment on above: Order Comment: pt no t in room Performed By: #### F E and TIBC, [id number], ODALIS #### [address] Interpretation Hepatitis C Normal . [facility] Comment on above: Order Comment: pt no t in room Result Comment: Not infected with HCV unless early or acute infection is suspected (which may be delayed in an immunocompromised individual), or other evidence exists to indicate HCV infection. Performed By: #### F E and TIBC, [id number], ODALIS #### [address] Hepatitis B Core Antibodyon 09-03-2022 Hepatitis B Core Antibody Negative Normal Negative [facility] Comment on above: Order Comment: pt no t in room Result Comment: Perf ormed at: - [facility] [id number] Mowing Machine Operator: Mata Pérez PhD, Phone: [phone] PERFORMED BY: [place] [address] PATHOLOGIST SPECIAL PROCEDURE TECH BRANDEN WHATLEY M.D. Performed By: #### F E and TIBC, [id number], ODALIS #### [address] Hepatitis B Surface Antibody on 09-03-2022 Hepatitis B Surface Antibody Reactive Normal . [facility] Comment on above: Order Comment: pt no t in room Result Comment: Non Reactive: Inconsistent with immunity, less than 10 mIU/mL Reactive: Consistent with immunity, greater than 9.9 mIU/mL Performed By: #### F E and TIBC, [id number], ODALIS #### [facility] [address] [place] [address] Renal Function Panelon 09-03 Albumin [Mass/Vol] 2.4 g/dL Low 3.5-5.7 [facility] Comment on above: Performed By: #### G LULS #### Point of Care testing , Anion gap [Moles/Vol] 16.5 mmol/L High 6.0-15.0 [facility] Comment on above: Performed By: #### G LULS #### Point of Care testing , Calcium [Mass/Vol] 8.7 mg/dL Normal 8.6-10.3 [facility] Comment on above: Performed By: #### G LULS #### Point of Care testing , Chloride [Moles/Vol] 101 mmol/L Normal 98-107 [facility] Comment on above: Performed By: #### G LULS #### Point of Care testing , CO2 [Moles/Vol] 22.4 mmol/L Normal 21.0-31.0 [facility] Comment on above: Performed By: #### G LULS #### Point of Care testing , Creatinine [Mass/Vol] 8.19 mg/dL Significan t change up 0.70-1.30 [facility] Comment on above: Performed By: #### G LULS #### Point of Care testing , Creatinine Clr Calc Pharmacy 12.70 [facility] Comment on above: Result Comment: PERF ORMED BY: [facility] [address] [place] [address] PATHOLOGIST SPECIAL PROCEDURE TECH BRANDEN WHATLEY M.D. Performed By: #### G LULS #### Point of Care testing , GFR/1.73 sq M.predicted MDRD (S/P/Bld) [Vol rate/Area] 6.452 mL/min/{1.73_m2} [facility] Comment on above: Performed By: #### G LULS #### Point of Care testing , Glucose [Mass/Vol] 112 mg/dL High 70-100 [facility] Comment on above: Result Comment: [place] Glucose Reference Range is dependent on time and content of last meal. Glucose of more than 200 mg/dL in a nonstressed, ambulatory subject supports the diagnosis of Diabetes Mellitus. ADA recommended reference range Performed By: #### G LULS #### Point of Care testing , Phosphate [Mass/Vol] 6.7 mg/dL Normal 3.7-7.2 [facility] Comment on above: Performed By: #### G LULS #### Point of Care testing , Potassium [Moles/Vol] 4.9 mmol/L Normal 3.5-5.1 [facility] Comment on above: Performed By: #### G LULS #### Point of Care testing , Sodium [Moles/Vol] 135 mmol/L Low 136-145 [facility] Comment on above: Performed By: #### G LULS #### Point of Care testing , Urea nitrogen [Mass/Vol] 99 mg/dL High 7-25 [facility] Comment on above: Performed By: #### G LULS #### Point of Care testing , Stool Occult Blood (Immuno)o n 09-03-2022 Stool Occult Blood (Immuno) Occult Blood (Immuno) Positive for Occult Blood by Immunochemical Methodology Reference range = Negative PERFORMED BY: [place] [address] PATHOLOGIST SPECIAL PROCEDURE TECH BRANDEN WHATLEY M.D. [facility] Comment on above: Performed By: #### G LULS #### Point of Care testing , XR chest 1V portableon 09-03 XR chest 1V portable [facility] [place] [place] [address] XRay Report Signed Patient: Matt Kelly MR#: [id number] : 1950 Acct:[id number] Age/Sex: 71 / M ADM Date: 08/30/22 Loc: Room: [address] [place] [address] Type: ADM IN Attending Dr: Eldon López [...] Rafi Morales M.D.09/03/2022 3:02 PM Dictation Location: [place] [address] Transcribed By: [facility] 09/03/22 1502 Dictated By: Rafi Morales II, MD 09/03/22 1501 Signed By: 09/03/22 1502 Normal [facility] Complete Blood Count Auto Di ffon 09-02-2022 Basophils (Bld) [#/Vol] 0.1 10*3/uL Normal 0.0-0.2 [facility] Comment on above: Result Comment: PERF ORMED BY: [facility] [address] [place] [address] PATHOLOGIST SPECIAL PROCEDURE TECH BRANDEN WHATLEY M.D. Performed By: #### G LULS #### Point of Care testing , Basophils/100 WBC (Bld) 0.4 % Normal . [facility] Comment on above: Performed By: #### G LULS #### Point of Care testing , Eosinophils (Bld) [#/Vol] 0.1 10*3/uL Normal 0.0-0.45 [facility] Comment on above: Performed By: #### G LULS #### Point of Care testing , Eosinophils/100 WBC (Bld) 0.5 % Normal . [facility] Comment on above: Performed By: #### G LULS #### Point of Care testing , Erythrocyte distribution width (RBC) [Ratio] 14.8 % Normal 12.0-14.8 [facility] Comment on above: Performed By: #### G LULS #### Point of Care testing , Hematocrit (Bld) [Volume fraction] 26.7 % Low 38.8-50.0 [facility] Comment on above: Performed By: #### G ZAC #### Point of Care testing , Hemoglobin (Bld) [Mass/Vol] 8.7 g/dL Low 13.0-17.0 [facility] Comment on above: Performed By: #### G SUSIELS #### Point of Care testing , Lymphocytes (Bld) [#/Vol] 0.6 10*3/uL Low 1.00-4.8 [facility] Comment on above: Performed By: #### G SUSIELS #### Point of Care testing , Lymphocytes/100 WBC (Bld) 3.6 % Normal . [facility] Comment on above: Performed By: #### G SUSIELS #### Point of Care testing , MCH (RBC) [Entitic mass] 28.6 pg Normal 27.5-35.2 [facility] Comment on above: Performed By: #### Young RICHARDSLS #### Point of Care testing , MCV (RBC) [Entitic vol] 87.9 fL Normal 83.5-101 [facility] Comment on above: Performed By: #### Young FRANK #### Point of Care testing , Mean Corpuscular HGB Conc 32.5 g/dL Normal 32.5-35.6 [facility] Comment on above: Performed By: #### G ZAC #### Point of Care testing , Monocytes (Bld) [#/Vol] 0.9 10*3/uL High 0.0-0.8 [facility] Comment on above: Performed By: #### G ZCA #### Point of Care testing , Monocytes/100 WBC (Bld) 5.9 % Normal . [facility] Comment on above: Performed By: #### G SUSIELS #### Point of Care testing , Neutrophils (Bld) [#/Vol] 13.9 10*3/uL High 1.8-7.7 [facility] Comment on above: Performed By: #### G SUSIELS #### Point of Care testing , Neutrophils/100 WBC (Bld) 89.6 % Normal . [facility] Comment on above: Performed By: #### G ZAC #### Point of Care testing , NRBC% 0.1 /100{WBC} Normal 0-0.5 [facility] Comment on above: Performed By: #### G ZAC #### Point of Care testing , Platelet mean volume (Bld) [Entitic vol] 7.8 fL Normal 6.6-10.1 [facility] Comment on above: Performed By: #### G ZAC #### Point of Care testing , Platelets (Bld) [#/Vol] 146 10*3/uL Low 150-450 [facility] Comment on above: Performed By: #### G ZAC #### Point of Care testing , RBC (Bld) [#/Vol] 3.04 10*6/uL Low 3.90-5.60 [facility] Comment on above: Performed By: #### Young FRANK #### Point of Care testing , WBC (Bld) [#/Vol] 15.5 10*3/uL High 4.1-10.5 [facility] Comment on above: Performed By: #### Young FRANK #### Point of Care testing , Comprehensive Metabolic Pane real 09-02-2022 Albumin [Mass/Vol] 2.5 g/dL Low 3.5-5.7 [facility] Comment on above: Performed By: #### C BC, RENAL, CMP ####[facility] [id number] [place] [address] [facility] Albumin/Globulin [Mass ratio] 0.8 {ratio} Normal [facility] Comment on above: Performed By: #### C BC, RENAL, CMP ####[facility] [id number] [place] [address] [facility] ALP [Catalytic activity/Vol] 97 U/L Normal 34-104 [facility] Comment on above: Performed By: #### C BC, RENAL, CMP ####[facility] [address] [place] [address] [facility] ALT [Catalytic activity/Vol] 27 U/L Normal 7-52 [facility] Comment on above: Performed By: #### C BC, RENAL, CMP ####[facility] [place] [address] [facility] Anion gap [Moles/Vol] 15.2 mmol/L High 6.0-15.0 [facility] Comment on above: Performed By: #### C BC, RENAL, CMP ####[address] [place] [address] [facility] AST [Catalytic activity/Vol] 14 U/L Normal 13-39 [facility] Comment on above: Performed By: #### C BC, RENAL, CMP ####[address] [place] [address] [facility] Bilirubin [Mass/Vol] 0.3 mg/dL Normal 0.3-1.0 [facility] Comment on above: Performed By: #### C BC, RENAL, CMP ####[address] [address] [facility] Calcium [Mass/Vol] 8.5 mg/dL Low 8.6-10.3 [facility] Comment on above: Performed By: #### C BC, RENAL, CMP ####[address] [address] [facility] Chloride [Moles/Vol] 106 mmol/L Normal 98-107 [facility] Comment on above: Performed By: #### C BC, RENAL, CMP ####[address] [place] [address] [facility] CO2 [Moles/Vol] 20.3 mmol/L Low 21.0-31.0 [facility] Comment on above: Performed By: #### C BC, RENAL, CMP ####[address] [address] [facility] Creatinine [Mass/Vol] 6.98 mg/dL High 0.70-1.30 [facility] Comment on above: Performed By: #### C BC, RENAL, CMP ####[address] [place] [address] [facility] [facility] Creatinine Clr Calc Pharmacy 14.33 Normal [facility] Comment on above: Performed By: #### C BC, RENAL, CMP ####[place] [id number] [place] [id number] [facility] GFR/1.73 sq M.predicted MDRD (S/P/Bld) [Vol rate/Area] 7.816 mL/min/{1.73_m2} [facility] Comment on above: Performed By: #### C BC, RENAL, CMP ####[place] [id number] [place] [id number] [facility] Globulin (S) [Mass/Vol] 3.1 g/dL [facility] Comment on above: Performed By: #### C BC, RENAL, CMP ####[place] [id number] [place] [id number] [facility] Glucose [Mass/Vol] 118 mg/dL High 70-100 [facility] Comment on above: Result Comment: [facility] Glucose Reference Range is dependent on time and content of last meal. Glucose of more than 200 mg/dL in a nonstressed, ambulatory subject supports the diagnosis of Diabetes Mellitus. ADA recommended reference range Performed By: #### C BC, RENAL, CMP ####[place] [id number] [facility] Potassium [Moles/Vol] 5.5 mmol/L High 3.5-5.1 [facility] Comment on above: Performed By: #### C BC, RENAL, CMP ####[place] [id number] [facility] Protein [Mass/Vol] 5.6 g/dL Low 6.4-8.9 [facility] Comment on above: Performed By: #### C BC, RENAL, CMP ####[place] [id number] [facility] Sodium [Moles/Vol] 136 mmol/L Normal 136-145 [facility] Comment on above: Performed By: #### C BC, RENAL, CMP ####[place] [id number] [facility] Urea nitrogen [Mass/Vol] 92 mg/dL High 7-25 [facility] Comment on above: Performed By: #### C BC, RENAL, CMP ####[facility] [id number] [place] [address] [place] Consultation Noteon 09-03-19 Consultation Note [id number]:127 Normal [facility] Glucose Poct Glucometerson 0 09-02-2022 Glucose [Mass/Vol] 161 mg/dL Normal [facility] Comment on above: Result Comment: [facility] Glucose Reference Range is dependent on time and content of last meal. Glucose of more than 200 mg/dL in a nonstressed, ambulatory subject supports the diagnosis of Diabetes Mellitus. PERFORMED BY: [facility] [address] [place] [id number] PATHOLOGIST SPECIAL PROCEDURE TECH BRANDEN WHATLEY M.D. Performed By: #### G LULS #### Point of Care testing , Commemt1 Glu2: Cleaned Meter Normal [facility] Comment on above: Result Comment: PERF ORMED BY: [facility] [address] [place] [address] PATHOLOGIST SPECIAL PROCEDURE TECH BRANDEN WHATLEY M.D. Performed By: #### G LULS #### Point of Care testing , Glucose [Mass/Vol] 244 mg/dL Normal [facility] Comment on above: Result Comment: [facility] Glucose Reference Range is dependent on time and content of last meal. Glucose of more than 200 mg/dL in a nonstressed, ambulatory subject supports the diagnosis of Diabetes Mellitus. Performed By: #### G LULS #### Point of Care testing , Insurance Correspondence Off iceon 09-02-2022 Insurance Correspondence Office [id number]:127 Normal [facility] Renal Function Panelon 09-02 Phosphate [Mass/Vol] 6.5 mg/dL Normal 3.7-7.2 [facility] Comment on above: Result Comment: PERF ORMED BY: [facility] [address] [place] [id number] PATHOLOGIST SPECIAL PROCEDURE TECH BRANDEN WHATLEY M.D. Performed By: #### C BC, RENAL, CMP ####[address] Complete Blood Count Auto Di ffon 09-01-2022 Basophils (Bld) [#/Vol] 0.1 10*3/uL Normal 0.0-0.2 [facility] Comment on above: Result Comment: PERF ORMED BY: [facility] [address] [place] [address] PATHOLOGIST SPECIAL PROCEDURE TECH BRANDEN WHATLEY M.D. Performed By: #### R ENAL, CBC, CMP ####[address] Basophils/100 WBC (Bld) 1.2 % Normal . [facility] Comment on above: Performed By: #### R ENAL, CBC, CMP ####[address] Eosinophils (Bld) [#/Vol] 0.3 10*3/uL Normal 0.0-0.45 [facility] Comment on above: Performed By: #### R ENAL, CBC, CMP ####[address] Eosinophils/100 WBC (Bld) 5.5 % Normal . [facility] Comment on above: Performed By: #### R ENAL, CBC, CMP ####[address] Erythrocyte distribution width (RBC) [Ratio] 14.7 % Normal 12.0-14.8 [facility] Comment on above: Performed By: #### R ENAL, CBC, CMP ####[address] Hematocrit (Bld) [Volume fraction] 25.2 % Low 38.8-50.0 [facility] Comment on above: Performed By: #### R ENAL, CBC, CMP ####[address] Hemoglobin (Bld) [Mass/Vol] 8.3 g/dL Low 13.0-17.0 [facility] Comment on above: Performed By: #### R ENAL, CBC, CMP ####[address] Lymphocytes (Bld) [#/Vol] 0.9 10*3/uL Low 1.00-4.8 [facility] Comment on above: Performed By: #### R ENAL, CBC, CMP ####[address] Lymphocytes/100 WBC (Bld) 14.6 % Normal . [facility] Comment on above: Performed By: #### R ENDEVORA, CBC, CMP ####[address] MCH (RBC) [Entitic mass] 29.0 pg Normal 27.5-35.2 [facility] Comment on above: Performed By: #### R ENAL, CBC, CMP ####[address] MCV (RBC) [Entitic vol] 87.7 fL Normal 83.5-101 [facility] Comment on above: Performed By: #### R ENAL, CBC, CMP ####[address] Mean Corpuscular HGB Conc 33.0 g/dL Normal 32.5-35.6 [facility] Comment on above: Performed By: #### R ENAL, CBC, CMP ####[address] Monocytes (Bld) [#/Vol] 0.8 10*3/uL Normal 0.0-0.8 [facility] Comment on above: Performed By: #### R ENAL, CBC, CMP ####[address] Monocytes/100 WBC (Bld) 12.6 % Normal . [facility] Comment on above: Performed By: #### R ENAL, CBC, CMP ####[address] Neutrophils (Bld) [#/Vol] 4.0 10*3/uL Normal 1.8-7.7 [facility] Comment on above: Performed By: #### R ENAL, CBC, CMP ####[address] Neutrophils/100 WBC (Bld) 66.1 % Normal . [facility] Comment on above: Performed By: #### R ENAL, CBC, CMP ####[address] NRBC% 0.1 /100{WBC} Normal 0-0.5 [facility] Comment on above: Performed By: #### R ENAL, CBC, CMP ####[address] Platelet mean volume (Bld) [Entitic vol] 7.9 fL Normal 6.6-10.1 [facility] Comment on above: Performed By: #### R ENAL, CBC, CMP ####[address] Platelets (Bld) [#/Vol] 145 10*3/uL Low 150-450 [facility] Comment on above: Performed By: #### R ENAL, CBC, CMP ####[address] RBC (Bld) [#/Vol] 2.87 10*6/uL Low 3.90-5.60 [facility] Comment on above: Performed By: #### R ENAL, CBC, CMP ####[address] WBC (Bld) [#/Vol] 6.1 10*3/uL Normal 4.1-10.5 [facility] Comment on above: Performed By: #### R ENAL, CBC, CMP ####[address] Comprehensive Metabolic Pane real 09-01-2022 Albumin [Mass/Vol] 2.7 g/dL Low 3.5-5.7 [facility] Comment on above: Performed By: #### R TELLY, CBC, CMP ####[facility] [address] [place] [address] [facility] Albumin/Globulin [Mass ratio] 0.9 {ratio} Normal [facility] Comment on above: Performed By: #### R TELLY, CBC, CMP ####[facility] [id number] [place] [address] [facility] ALP [Catalytic activity/Vol] 107 U/L High 34-104 [facility] Comment on above: Performed By: #### R TELLY, CBC, CMP ####[facility] [id number] [place] [address] [facility] ALT [Catalytic activity/Vol] 32 U/L Normal 7-52 [facility] Comment on above: Performed By: #### R TELLY, CBC, CMP ####[facility] [place] [address] [facility] Anion gap [Moles/Vol] 14.1 mmol/L Normal 6.0-15.0 [facility] Comment on above: Performed By: #### R TELLY, CBC, CMP ####[facility] [place] [address] [facility] AST [Catalytic activity/Vol] 21 U/L Normal 13-39 [facility] Comment on above: Performed By: #### R TELLY, CBC, CMP ####[facility] [address] [place] [address] [facility] Bilirubin [Mass/Vol] 0.4 mg/dL Normal 0.3-1.0 [facility] Comment on above: Performed By: #### R TELLY, CBC, CMP ####[facility] [id number] [place] [address] [facility] Calcium [Mass/Vol] 8.9 mg/dL Normal 8.6-10.3 [facility] Comment on above: Performed By: #### R TELLY, CBC, CMP ####[place] [id number] [place] [phone] [facility] Chloride [Moles/Vol] 110 mmol/L High 98-107 [facility] Comment on above: Performed By: #### R JANET VARNER, CMP ####[place] [id number] [place] [phone] [facility] CO2 [Moles/Vol] 17.7 mmol/L Low 21.0-31.0 [facility] Comment on above: Performed By: #### Fadia VARNER CBC, CMP ####[address] Creatinine [Mass/Vol] 6.68 mg/dL Significan t change up 0.70-1.30 [facility] Comment on above: Performed By: #### JANET WYNN, CMP ####[address] Creatinine Clr Calc Pharmacy 14.96 [facility] Comment on above: Performed By: #### R JANET VARNER, CMP ####[address] GFR/1.73 sq M.predicted MDRD (S/P/Bld) [Vol rate/Area] 8.239 mL/min/{1.73_m2} [facility] Comment on above: Performed By: #### JANET WYNN, CMP ####[address] Globulin (S) [Mass/Vol] 3.0 g/dL [facility] Comment on above: Performed By: #### R TELLY CBC, CMP ####[place] [id number] [facility] Glucose [Mass/Vol] 90 mg/dL Normal 70-100 [facility] Comment on above: Result Comment: [place] Glucose Reference Range is dependent on time and content of last meal. Glucose of more than 200 mg/dL in a nonstressed, ambulatory subject supports the diagnosis of Diabetes Mellitus. ADA recommended reference range Performed By: #### R TELLY CBC, CMP ####[facility] [id number] [place] [address] [facility] Potassium [Moles/Vol] 4.8 mmol/L Normal 3.5-5.1 [facility] Comment on above: Performed By: #### R ENAL, CBC, CMP ####[place] [address] [place] [address] [facility] Protein [Mass/Vol] 5.7 g/dL Low 6.4-8.9 [facility] Comment on above: Performed By: #### R ENAL, CBC, CMP ####[place] [address] [place] [address] [facility] Sodium [Moles/Vol] 137 mmol/L Normal 136-145 [facility] Comment on above: Performed By: #### R ENAL, CBC, CMP ####[address] [address] [facility] Urea nitrogen [Mass/Vol] 83 mg/dL High 7-25 [facility] Comment on above: Performed By: #### R ENAL, CBC, CMP ####[address] [address] [facility] Glucose Poct Glucometerson 0 09-01-2022 Glucose [Mass/Vol] 95 mg/dL Normal [facility] Comment on above: Result Comment: [facility] Glucose Reference Range is dependent on time and content of last meal. Glucose of more than 200 mg/dL in a nonstressed, ambulatory subject supports the diagnosis of Diabetes Mellitus. PERFORMED BY: [facility] [address] [place] [address] PATHOLOGIST SPECIAL PROCEDURE TECH BRANDEN WHATLEY M.D. Performed By: #### G LULS #### Point of Care testing , Commemt1 Glu2: Cleaned Meter Normal [facility] Comment on above: Result Comment: PERF ORMED BY: [facility] [address] [place] [id number] PATHOLOGIST SPECIAL PROCEDURE TECH BRANDEN WHATLEY M.D. Performed By: #### G LULS #### Point of Care testing , Glucose [Mass/Vol] 96 mg/dL Normal [facility] Comment on above: Result Comment: [place] om Glucose Reference Range is dependent on time and content of last meal. Glucose of more than 200 mg/dL in a nonstressed, ambulatory subject supports the diagnosis of Diabetes Mellitus. Performed By: #### G LULS #### Point of Care testing , Glucose [Mass/Vol] 100 mg/dL Normal [facility] Comment on above: Result Comment: [place] om Glucose Reference Range is dependent on time and content of last meal. Glucose of more than 200 mg/dL in a nonstressed, ambulatory subject supports the diagnosis of Diabetes Mellitus. PERFORMED BY: [facility] [address] [place] [address] PATHOLOGIST SPECIAL PROCEDURE TECH BRANDEN WHATLEY M.D. Performed By: #### G LULS ####Point of Care testing, Renal Function Panelon 09-01 Phosphate [Mass/Vol] 7.0 mg/dL Normal 3.7-7.2 [facility] Comment on above: Result Comment: PERF ORMED BY: [facility] [address] [place] [address] PATHOLOGIST SPECIAL PROCEDURE TECH BRANDEN WHATLEY M.D. Performed By: #### R ENAL, CBC, CMP ####[facility] [id number] [place] [phone] [facility] ABO/Rh Retypeon 08-31-2022 ABO/RH Recheck Result Negative Normal [facility] Comment on above: Order Comment: NEEDS DRAWN Result Comment: PERF ORMED BY: [facility] [address] [place] [address] PATHOLOGIST SPECIAL PROCEDURE TECH BRANDEN WHATLEY M.D. Basic Metabolic Panelon 08-13 Anion gap [Moles/Vol] 16.5 mmol/L High 6.0-15.0 [facility] Comment on above: Performed By: #### F E and TIBC, [id number], ODALIS #### [facility] [address] [place] [id number] [facility] Calcium [Mass/Vol] 8.3 mg/dL Low 8.6-10.3 [facility] Comment on above: Performed By: #### F E and TIBC, [id number], ODALIS #### [facility] [address] [place] [address] [place] Chloride [Moles/Vol] 111 mmol/L High 98-107 [facility] Comment on above: Performed By: #### F E and TIBC, [id number], ODALIS #### [facility] [address] [place] [address] [place] CO2 [Moles/Vol] 14.2 mmol/L Low 21.0-31.0 [facility] Comment on above: Performed By: #### F E and TIBC, [id number], ODALIS #### [facility] [address] Creatinine [Mass/Vol] 5.39 mg/dL Significan t change up 0.70-1.30 [facility] Comment on above: Performed By: #### F E and TIBC, [id number], ODALIS #### [facility] [address] [place] [address] [place] Creatinine Clr Calc Pharmacy 18.62 [facility] Comment on above: Performed By: #### F E and TIBC, [id number], ODALIS #### [facility] [address] [place] [address] [place] GFR/1.73 sq M.predicted MDRD (S/P/Bld) [Vol rate/Area] 10.659 mL/min/{1.73_m2} [facility] Comment on above: Performed By: #### F E and TIBC, [id number], ODALIS #### [facility] [address] [place] [address] [place] Glucose [Mass/Vol] 104 mg/dL High 70-100 [facility] Comment on above: Result Comment: [place] Glucose Reference Range is dependent on time and content of last meal. Glucose of more than 200 mg/dL in a nonstressed, ambulatory subject supports the diagnosis of Diabetes Mellitus. ADA recommended reference range Performed By: #### F E and TIBC, [id number], ODALIS #### [facility] [address] Potassium [Moles/Vol] 4.7 mmol/L Normal 3.5-5.1 [facility] Comment on above: Performed By: #### F E and TIBC, [id number], ODALIS #### [facility] [address] Sodium [Moles/Vol] 137 mmol/L Normal 136-145 [facility] Comment on above: Performed By: #### F E and TIBC, [id number], ODALIS #### [facility] [address] Urea nitrogen [Mass/Vol] 73 mg/dL High 7- [facility] Comment on above: Performed By: #### F E and TIBC, [id number], ODALIS #### [address] Complete Blood Count Auto Di ffon 08-31-2022 Basophils (Bld) [#/Vol] 0.0 10*3/uL Normal 0.0-0.2 [facility] Comment on above: Result Comment: PERF ORMED BY: [place] [address] PATHOLOGIST SPECIAL PROCEDURE TECH BRANDEN WHATLEY M.D. Performed By: #### B MP, CBC, MG ####[place] [address] [place] Basophils/100 WBC (Bld) 0.8 % Normal . [facility] Comment on above: Performed By: #### B MP, CBC, MG ####[facility] [place] [address] [place] Eosinophils (Bld) [#/Vol] 0.2 10*3/uL Normal 0.0-0.45 [facility] Comment on above: Performed By: #### B MP, CBC, MG ####[facility] [place] [address] [place] Eosinophils/100 WBC (Bld) 4.2 % Normal . [facility] Comment on above: Performed By: #### B MP, CBC, MG ####[address] Erythrocyte distribution width (RBC) [Ratio] 14.9 % High 12.0-14.8 [facility] Comment on above: Performed By: #### B MP, CBC, MG ####[address] Hematocrit (Bld) [Volume fraction] 19.8 % Off scale low 38.8-50.0 [facility] Comment on above: Result Comment: Crit ical Result HCT:19.8 called to and read back by: [id number] on 08/31/2022 11:09:15 by:SULY. Performed By: #### B MP, CBC, MG ####[address] Hemoglobin (Bld) [Mass/Vol] 6.4 g/dL Low 13.0-17.0 [facility] Comment on above: Performed By: #### B MP, CBC, MG ####[address] Lymphocytes (Bld) [#/Vol] 0.8 10*3/uL Low 1.00-4.8 [facility] Comment on above: Performed By: #### B MP, CBC, MG ####[address] Lymphocytes/100 WBC (Bld) 14.6 % Normal . [facility] Comment on above: Performed By: #### B MP, CBC, MG ####[place] [id number] [facility] MCH (RBC) [Entitic mass] 28.7 pg Normal 27.5-35.2 [facility] Comment on above: Performed By: #### B MP, CBC, MG ####[place] [id number] [facility] MCV (RBC) [Entitic vol] 88.3 fL Normal 83.5-101 [facility] Comment on above: Performed By: #### B MP, CBC, MG ####[address] Mean Corpuscular HGB Conc 32.5 g/dL Normal 32.5-35.6 [facility] Comment on above: Performed By: #### B MP, CBC, MG ####[address] Monocytes (Bld) [#/Vol] 0.5 10*3/uL Normal 0.0-0.8 [facility] Comment on above: Performed By: #### B MP, CBC, MG ####[address] Monocytes/100 WBC (Bld) 9.8 % Normal . [facility] Comment on above: Performed By: #### B MP, CBC, MG ####[address] Neutrophils (Bld) [#/Vol] 3.8 10*3/uL Normal 1.8-7.7 [facility] Comment on above: Performed By: #### B MP, CBC, MG ####[address] Neutrophils/100 WBC (Bld) 70.6 % Normal . [facility] Comment on above: Performed By: #### B MP, CBC, MG ####[address] NRBC% 0.0 /100{WBC} Normal 0-0.5 [facility] Comment on above: Performed By: #### B MP, CBC, MG ####[address] Platelet mean volume (Bld) [Entitic vol] 7.7 fL Normal 6.6-10.1 [facility] Comment on above: Performed By: #### B MP, CBC, MG ####[address] Platelets (Bld) [#/Vol] 142 10*3/uL Low 150-450 [facility] Comment on above: Performed By: #### B MP, CBC, MG ####[facility] [id number] RBC (Bld) [#/Vol] 2.24 10*6/uL Low 3.90-5.60 [facility] Comment on above: Performed By: #### B MP, CBC, MG ####[facility] [id number] [address] WBC (Bld) [#/Vol] 5.4 10*3/uL Normal 4.1-10.5 [facility] Comment on above: Performed By: #### B MP, CBC, MG ####[facility] [id number] Ferritinon 08-31-2022 Ferritin [Mass/Vol] 551.8 ng/mL High 23.9-336.2 [facility] Comment on above: Performed By: #### F E and TIBC, [id number], ODALIS #### [facility] [address] Glucose Poct Glucometerson 0 08-31-2022 Commemt1 Glu2: Cleaned Meter [facility] Comment on above: Result Comment: PERF ORMED BY: [place] [address] PATHOLOGIST SPECIAL PROCEDURE TECH BRANDEN WHATLEY M.D. Performed By: #### G LULS ####Point of Care testing, Glucose [Mass/Vol] 123 mg/dL Normal [facility] Comment on above: Result Comment: [facility] Glucose Reference Range is dependent on time and content of last meal. Glucose of more than 200 mg/dL in a nonstressed, ambulatory subject supports the diagnosis of Diabetes Mellitus. Performed By: #### G LULS ####Point of Care testing, Commemt1 Glu2: Cleaned Meter [facility] Comment on above: Result Comment: PERF ORMED BY: [facility] [address] [place] [address] PATHOLOGIST SPECIAL PROCEDURE TECH BRANDEN WHATLEY M.D. Performed By: #### G LULS #### Point of Care testing , Glucose [Mass/Vol] 101 mg/dL Normal [facility] Comment on above: Result Comment: [place] om Glucose Reference Range is dependent on time and content of last meal. Glucose of more than 200 mg/dL in a nonstressed, ambulatory subject supports the diagnosis of Diabetes Mellitus. Performed By: #### G LULS #### Point of Care testing , Commemt1 Glu2: Cleaned Meter Normal [facility] Comment on above: Result Comment: PERF ORMED BY: [place] [phone] PATHOLOGIST SPECIAL PROCEDURE TECH BRANDEN WHATLEY M.D. Performed By: #### G LULS #### Point of Care testing , Glucose [Mass/Vol] 126 mg/dL Normal [facility] Comment on above: Result Comment: [place] om Glucose Reference Range is dependent on time and content of last meal. Glucose of more than 200 mg/dL in a nonstressed, ambulatory subject supports the diagnosis of Diabetes Mellitus. Performed By: #### G LULS #### Point of Care testing , Glucose [Mass/Vol] 123 mg/dL Normal [facility] Comment on above: Result Comment: [place] Glucose Reference Range is dependent on time and content of last meal. Glucose of more than 200 mg/dL in a nonstressed, ambulatory subject supports the diagnosis of Diabetes Mellitus. PERFORMED BY: [place] [phone] PATHOLOGIST SPECIAL PROCEDURE TECH BRANDEN WHATLEY M.D. Performed By: #### F E and TIBC, [id number], ODALIS #### [address] Haptoglobinon 08-31-2022 Haptoglobin 189 mg/dL Normal 44-215 [facility] Comment on above: Result Comment: PERF ORMED BY: [place] [phone] PATHOLOGIST SPECIAL PROCEDURE TECH BRANDEN WHATLEY M.D. Performed By: #### G LULS #### Point of Care testing , Iron and TIBC Profileon 08-13 0-2022 % Iron Saturation 27.5 % Normal 20-50 [facility] Comment on above: Performed By: #### F E and TIBC, [id number], ODALIS #### [facility] [address] [place] [address] [place] Iron [Mass/Vol] 53 ug/dL Normal 50-212 [facility] Comment on above: Performed By: #### F E and TIBC, [id number], ODALIS #### [facility] [address] Total Iron Binding Capacity 193 ug/dL Low 255-450 [facility] Comment on above: Performed By: #### F E and TIBC, [id number], ODALIS #### [facility] [address] [place] [address] [place] Transferrin [Mass/Vol] 138 mg/dL Low 203-362 [facility] Comment on above: Performed By: #### F E and TIBC, [id number], ODALIS #### [facility] [address] [place] [address] LDH Lactate Dehydrogenaseon 08-31-2022 LDH Lactate Dehydrogenase 100 U/L Low 140-271 [facility] Comment on above: Result Comment: PERF ORMED BY: [place] [address] PATHOLOGIST SPECIAL PROCEDURE TECH BRANDEN WHATLEY M.D. Performed By: #### G LULS #### Point of Care testing , LeukoReduced RBCon 3 LeukoReduced RBC TRANSFUSED 08/31/22 1822 Normal [facility] Magnesiumon 08-31-2022 Magnesium [Mass/Vol] 1.2 mg/dL Low 1.9-2.7 [facility] Comment on above: Result Comment: PERF ORMED BY: [place] [address] PATHOLOGIST SPECIAL PROCEDURE TECH BRANDEN WHATLEY M.D. Performed By: #### F E and TIBC, [id number], ODALIS #### [address] Reticulocyte Counton 023 Reticulocyte Number 0.069 10*6/uL Normal 0.024-0.084 [facility] Comment on above: Result Comment: PERF ORMED BY: [address] [place] [address] PATHOLOGIST SPECIAL PROCEDURE TECH BRANDEN WHATLEY M.D. Performed By: #### G LULS #### Point of Care testing , Reticulocyte Percent 2.7 % High 0.5-1.5 [facility] Comment on above: Performed By: #### G LULS #### Point of Care testing , Type and Screenon 08-31-2022 ABO and Rh group Nom (Bld) Blood group O Rh(D) negative Normal [facility] Comment on above: Order Comment: NEEDS DRAWN Result Comment: PERF ORMED BY: [place] [address] PATHOLOGIST SPECIAL PROCEDURE TECH BRANDEN WHATLEY M.D. Vit. B12/Folate Profileon Cobalamin (Vitamin B12) [Mass/Vol] 616 pg/mL Normal 180-914 [facility] Comment on above: Performed By: #### F E and TIBC, [id number], ODALIS #### [address] Folate 12.5 ng/mL Normal >5.9 [facility] Comment on above: Result Comment: Adrianna te reference range: >5.9 ng/ml The WHO technical consultation on folate and vitamin b12 deficiencies has determined that folate concentrations less than 4 ng/ml are considered deficient. PERFORMED BY: [place] [address] PATHOLOGIST SPECIAL PROCEDURE TECH BRANDEN WHATLEY M.D. Performed By: #### F E and TIBC, [id number], ODALIS #### [address] Blood Cultureon 08-30-2022 Bacteria identified Cx Nom (Bld) NO GROWTH 5 DAYS PERFORMED BY: [place] [address] PATHOLOGIST SPECIAL PROCEDURE TECH BRANDEN WHATLEY M.D. [facility] Comment on above: Performed By: #### G LULS #### Point of Care testing , Bacteria identified Cx Nom (Bld) NO GROWTH 5 DAYS PERFORMED BY: [address] [address] PATHOLOGIST SPECIAL PROCEDURE TECH BRANDEN WHATLEY M.D. [facility] Comment on above: Performed By: #### G LULS #### Point of Care testing , CT abdomen pelvis wo conon 0 08-30-2022 CT abdomen pelvis wo con [facility] [place] [address] [place] [address] Scan Report Signed Patient: Matt eKlly MR#: [id number] : 1950 Acct:[id number] Age/Sex: 71 / M ADM Date: 08/30/22 Loc: ER Room: Type: [facility] ER Attending Dr: Copies to: Ragini Aguilar [...] Erik Larson M.D.08/30/2022 3:47 PM Dictation Location: [place] [address] Transcribed By: [facility] 08/30/22 1547 Dictated By: Erik Larson DO 08/30/22 1535 Signed By: 08/30/22 1547 Normal [facility] Complete Blood Count Auto Di ffon 08-30-2022 Basophils (Bld) [#/Vol] 0.1 10*3/uL Normal 0.0-0.2 [facility] Comment on above: Result Comment: PERF ORMED BY: [facility] [address] [place] [address] PATHOLOGIST SPECIAL PROCEDURE TECH BRANDEN WHATLEY M.D. Performed By: #### G LULS #### Point of Care testing , Basophils/100 WBC (Bld) 1.0 % Normal . [facility] Comment on above: Performed By: #### G LULS #### Point of Care testing , Eosinophils (Bld) [#/Vol] 0.4 10*3/uL Normal 0.0-0.45 [facility] Comment on above: Performed By: #### G LULS #### Point of Care testing , Eosinophils/100 WBC (Bld) 4.9 % Normal . [facility] Comment on above: Performed By: #### G LULS #### Point of Care testing , Erythrocyte distribution width (RBC) [Ratio] 14.7 % Normal 12.0-14.8 [facility] Comment on above: Performed By: #### Young FRANK #### Point of Care testing , Hematocrit (Bld) [Volume fraction] 24.2 % Low 38.8-50.0 [facility] Comment on above: Performed By: #### G SUSIELS #### Point of Care testing , Hemoglobin (Bld) [Mass/Vol] 8.0 g/dL Low 13.0-17.0 [facility] Comment on above: Performed By: #### G ZAC #### Point of Care testing , Lymphocytes (Bld) [#/Vol] 1.0 10*3/uL Normal 1.00-4.8 [facility] Comment on above: Performed By: #### G ZAC #### Point of Care testing , Lymphocytes/100 WBC (Bld) 13.4 % Normal . [facility] Comment on above: Performed By: #### Young FRANK #### Point of Care testing , MCH (RBC) [Entitic mass] 29.4 pg Normal 27.5-35.2 [facility] Comment on above: Performed By: #### Young FRANK #### Point of Care testing , MCV (RBC) [Entitic vol] 88.5 fL Normal 83.5-101 [facility] Comment on above: Performed By: #### G SUSIELS #### Point of Care testing , Mean Corpuscular HGB Conc 33.2 g/dL Normal 32.5-35.6 [facility] Comment on above: Performed By: #### G SUSIELS #### Point of Care testing , Monocytes (Bld) [#/Vol] 0.8 10*3/uL Normal 0.0-0.8 [facility] Comment on above: Performed By: #### G SUSIELS #### Point of Care testing , Monocytes/100 WBC (Bld) 16.70 % Normal 0.00-20.00 [facility] Comment on above: Performed By: #### Young FRANK #### Point of Care testing , Monocytes/100 WBC (Bld) 10.1 % Normal . [facility] Comment on above: Performed By: #### Young FRANK #### Point of Care testing , Neutrophils (Bld) [#/Vol] 5.3 10*3/uL Normal 1.8-7.7 [facility] Comment on above: Performed By: #### Young FRANK #### Point of Care testing , Neutrophils/100 WBC (Bld) 70.6 % Normal . [facility] Comment on above: Performed By: #### Young RICHARDSLS #### Point of Care testing , NRBC% 0.1 /100{WBC} Normal 0-0.5 [facility] Comment on above: Performed By: #### Young FRANK #### Point of Care testing , Platelet mean volume (Bld) [Entitic vol] 7.7 fL Normal 6.6-10.1 [facility] Comment on above: Performed By: #### Young FRANK #### Point of Care testing , Platelets (Bld) [#/Vol] 181 10*3/uL Normal 150-450 [facility] Comment on above: Performed By: #### Young FRANK #### Point of Care testing , RBC (Bld) [#/Vol] 2.73 10*6/uL Low 3.90-5.60 [facility] Comment on above: Performed By: #### Young FRANK #### Point of Care testing , WBC (Bld) [#/Vol] 7.4 10*3/uL Normal 4.1-10.5 [facility] Comment on above: Performed By: #### Young RICHARDSLS #### Point of Care testing , Comprehensive Metabolic Pane real 08-30-2022 Albumin [Mass/Vol] 2.9 g/dL Low 3.5-5.7 [facility] Comment on above: Performed By: #### Young FRANK #### Point of Care testing , Albumin/Globulin [Mass ratio] 0.8 {ratio} Normal [facility] Comment on above: Performed By: #### Young FRANK #### Point of Care testing , ALP [Catalytic activity/Vol] 105 U/L High 34-104 [facility] Comment on above: Performed By: #### G SUSIELS #### Point of Care testing , ALT [Catalytic activity/Vol] 31 U/L Normal 7-52 [facility] Comment on above: Performed By: #### G LULS #### Point of Care testing , Anion gap [Moles/Vol] 14.3 mmol/L Normal 6.0-15.0 [facility] Comment on above: Performed By: #### G LULS #### Point of Care testing , AST [Catalytic activity/Vol] 14 U/L Normal 13-39 [facility] Comment on above: Performed By: #### G SUSIELS #### Point of Care testing , Bilirubin [Mass/Vol] 0.3 mg/dL Normal 0.3-1.0 [facility] Comment on above: Performed By: #### G SUSIELS #### Point of Care testing , Calcium [Mass/Vol] 8.9 mg/dL Normal 8.6-10.3 [facility] Comment on above: Performed By: #### G SUSIELS #### Point of Care testing , Chloride [Moles/Vol] 110 mmol/L High 98-107 [facility] Comment on above: Performed By: #### G SUSIELS #### Point of Care testing , CO2 [Moles/Vol] 17.6 mmol/L Low 21.0-31.0 [facility] Comment on above: Performed By: #### G SUSIELS #### Point of Care testing , Creatinine [Mass/Vol] 6.18 mg/dL High 0.70-1.30 [facility] Comment on above: Performed By: #### G SUSIELS #### Point of Care testing , Creatinine Clr Calc Pharmacy 16.08 [facility] Comment on above: Result Comment: PERF ORMED BY: [facility] [address] [address] PATHOLOGIST SPECIAL PROCEDURE TECH BRANDEN WHATLEY M.D. Performed By: #### G SUSIELS #### Point of Care testing , GFR/1.73 sq M.predicted MDRD (S/P/Bld) [Vol rate/Area] 9.045 mL/min/{1.73_m2} [facility] Comment on above: Performed By: #### G SUSIELS #### Point of Care testing , Globulin (S) [Mass/Vol] 3.5 g/dL Normal [facility] Comment on above: Performed By: #### G LULS #### Point of Care testing , Glucose [Mass/Vol] 105 mg/dL High 70-100 [facility] Comment on above: Result Comment: [facility] Glucose Reference Range is dependent on time and content of last meal. Glucose of more than 200 mg/dL in a nonstressed, ambulatory subject supports the diagnosis of Diabetes Mellitus. ADA recommended reference range Performed By: #### G SUSIELS #### Point of Care testing , Potassium [Moles/Vol] 4.9 mmol/L Normal 3.5-5.1 [facility] Comment on above: Performed By: #### G SUSIELS #### Point of Care testing , Protein [Mass/Vol] 6.4 g/dL Normal 6.4-8.9 [facility] Comment on above: Performed By: #### G SUSIELS #### Point of Care testing , Sodium [Moles/Vol] 137 mmol/L Normal 136-145 [facility] Comment on above: Performed By: #### G SUSIELS #### Point of Care testing , Urea nitrogen [Mass/Vol] 84 mg/dL High 7-25 [facility] Comment on above: Performed By: #### G SUSIELS #### Point of Care testing , Dipstick and Microscopicon 0 08-30-2022 Appearance (U) Turbid Critically abnormal Clear [facility] Comment on above: Order Comment: Name Collection Type:: Wooten Catheter Performed By: #### F E and TIBC, [id number], ODALIS #### [facility] [address] Bacteria,Urine 2+ High None Seen [facility] Comment on above: Order Comment: Name Collection Type:: Wooten Catheter Performed By: #### F E and TIBC, [id number], ODALIS #### [facility] [address] [place] [address] [place] Bilirubin,Urine Negative Normal Negative [facility] Comment on above: Order Comment: Name Collection Type:: Wooten Catheter Performed By: #### F E and TIBC, [id number], ODALIS #### [address] Color (U) Yellow Normal Yellow [facility] Comment on above: Order Comment: Name Collection Type:: Wooten Catheter Performed By: #### F E and TIBC, [id number], ODALIS #### [address] Glucose Ql (U) 100 mg/dL High Normal [facility] Comment on above: Order Comment: Name Collection Type:: Wooten Catheter Performed By: #### F E and TIBC, [id number], ODALIS #### [address] Hyaline Casts,Urine None Seen Normal 0-1 [facility] Comment on above: Order Comment: Name Collection Type:: Wooten Catheter Performed By: #### F E and TIBC, [id number], ODALIS #### [address] Ketones Ql (U) Negative Normal Negative [facility] Comment on above: Order Comment: Name Collection Type:: Wooten Catheter Performed By: #### F E and TIBC, [id number], ODALIS #### [address] Leukocyte esterase Test strip Ql (U) 4+ High Negative [facility] Comment on above: Order Comment: Name Collection Type:: Wooten Catheter Performed By: #### F E and TIBC, [id number], ODALIS #### [place] [address] [place] Nitrite,Urine Positive High Negative [facility] Comment on above: Order Comment: Name Collection Type:: Wooten Catheter Performed By: #### F E and TIBC, [id number], ODALIS #### [address] Occult Blood,Urine 3+ High Negative [facility] Comment on above: Order Comment: Name Collection Type:: Wooten Catheter Result Comment: PERF ORMED BY: [place] [address] PATHOLOGIST SPECIAL PROCEDURE TECH BRANDEN WHATLEY M.D. Performed By: #### F E and TIBC, [id number], ODALIS #### [address] Other Casts,Urine None Seen Normal None Seen [facility] Comment on above: Order Comment: Name Collection Type:: Wooten Catheter Performed By: #### F E and TIBC, [id number], ODALIS #### [address] pH (U) 6.0 [pH] Normal 5.0-9.0 [facility] Comment on above: Order Comment: Name Collection Type:: Wooten Catheter Performed By: #### F E and TIBC, [id number], ODALIS #### [address] Protein (U) [Mass/Vol] 100 mg/dL High Negative [facility] Comment on above: Order Comment: Name Collection Type:: Wooten Catheter Performed By: #### F E and TIBC, [id number], ODALIS #### [place] [address] [place] RBC,Urine 3-4 Normal 0-4 [facility] Comment on above: Order Comment: Name Collection Type:: Wooten Catheter Performed By: #### F E and TIBC, [id number], ODALIS #### [place] [address] [place] Specificy [place],Urine 1.011 Normal 1.001-1.030 [facility] Comment on above: Order Comment: Name Collection Type:: Wooten Catheter Performed By: #### F E and TIBC, [id number], ODALIS #### [address] [place] [address] [place] Squamous Epithelial Cell,Urine 1-2 Normal 0-2 [facility] Comment on above: Order Comment: Name Collection Type:: Wooten Catheter Performed By: #### F E and TIBC, [id number], ODALIS #### [facility] [address] Urobilinogen,Urine Normal Normal Normal [facility] Comment on above: Order Comment: Name Collection Type:: Wooten Catheter Performed By: #### F E and TIBC, [id number], ODALIS #### [address] WBC,Urine Innumerable High 0-4 [facility] Comment on above: Order Comment: Name Collection Type:: Wooten Catheter Performed By: #### F E and TIBC, [id number], ODALIS #### [address] Yeast,Urine 2+ Critically abnormal None Seen [facility] Comment on above: Order Comment: Name Collection Type:: Wooten Catheter Result Comment: PERF ORMED BY: [place] [address] PATHOLOGIST SPECIAL PROCEDURE TECH BRANDEN WHATLEY M.D. Performed By: #### F E and TIBC, [id number], ODALIS #### [address] Glucose Poct Glucometerson 0 08-30-2022 Glucose [Mass/Vol] 148 mg/dL Normal [facility] Comment on above: Result Comment: [facility] Glucose Reference Range is dependent on time and content of last meal. Glucose of more than 200 mg/dL in a nonstressed, ambulatory subject supports the diagnosis of Diabetes Mellitus. PERFORMED BY: [address] [place] [address] PATHOLOGIST SPECIAL PROCEDURE TECH BRANDEN WHATLEY M.D. Performed By: #### G LULS #### Point of Care testing , Glucose [Mass/Vol] 100 mg/dL Normal [facility] Comment on above: Result Comment: [facility] Glucose Reference Range is dependent on time and content of last meal. Glucose of more than 200 mg/dL in a nonstressed, ambulatory subject supports the diagnosis of Diabetes Mellitus. PERFORMED BY: [place] [address] PATHOLOGIST SPECIAL PROCEDURE TECH BRANDEN WHATLEY M.D. Performed By: #### F E and TIBC [id number], ODALIS #### [facility] [address] [place] [address] Urine Cultureon 08-30-2022 Bacteria identified Cx Nom (U) ORGANISM: Pseudomonas aeruginosa (O:PSEAER) [place] Count 30,000 Aerobic RONI Charge (NMIC56) ---- [...] RESISTANT TO ALL B-LACTAM DRUGS. PERFORMED BY: [place] [address] PATHOLOGIST SPECIAL PROCEDURE TECH BRANDEN WHATLEY M.D. Normal [facility] Comment on above: Performed By: #### F E and TIBC, [id number], ODALIS #### [place] [id number] [facility] PRBC LEUKOREDUCEDon 07-19-19 23 PRBC LEUKOREDUCED Cross Match Result Compatible Unit Blood Type O Neg Unit Number [id number] Status Information Transfused Product ID Red Blood Cells Product Code [id number] [facility] Comment on above: Performed By: #### P OCGLUC #### [facility] [address] [place] [address] Dr. Dk Mahoney PRBC LEUKOREDUCED Cross Match Result Compatible Unit Blood Type O Neg Unit Number [id number] Status Information Transfused Product ID Red Blood Cells Product Code [id number] [facility] Comment on above: Performed By: #### P OCGLUC #### [facility] [address] [place] [address] Dr. Dk Mahoney CULTURE URINEon 07-09-2022 CULTURE [...] R F Levofloxacin >=8 R F Normal [facility] Comment on above: Performed By: #### P OCGLUC #### [facility] [address] [place] [address] Dr. Dk Mahoney PROTEIN ELECTROPHERESISon Albumin [Mass/Vol] 2.7 g/dL Critically low 2.9-4.4 [facility] Comment on above: Performed By: #### M G, CMP, PHOS #### [facility] [address] [place] [address] [address] Dk Mahoney Albumin/Globulin [Mass ratio] 0.9 {ratio} Normal 0.7-1.7 [facility] Comment on above: Performed By: #### M G, CMP, PHOS #### [facility] [address] [place] [address] [address] Dk Mahoney Trtri-9-Psxsedyg 0.2 g/dL Normal 0.0-0.4 [facility] Comment on above: Performed By: #### M G, CMP, PHOS #### [facility] [address] [place] [address] [address] Dk Mahoney Kdtug-8-Eufvnnll 0.8 g/dL Normal 0.4-1.0 [facility] Comment on above: Performed By: #### M G, CMP, PHOS #### [facility] [address] [place] [address] Dr. Dk Mahoney Beta Globulin 1.0 g/dL Normal 0.7-1.3 The [facility] Comment on above: Performed By: #### M G, CMP, PHOS #### [facility] [address] [place] [address] [address] Dk Mahoney Gamma Globulin 1.1 g/dL Normal 0.4-1.8 The [facility] Comment on above: Performed By: #### M G, CMP, PHOS #### [facility] [address] [place] [address] [address] Dk Mahoney Globulin (S) [Mass/Vol] 3.1 g/dL Normal 2.2-3.9 [facility] Comment on above: Performed By: #### M G, CMP, PHOS #### [facility] [address] [place] [address] [address] Dk Mahoney M-Primitivo Comment: Normal Not Observed [facility] Comment on above: Result Comment: SPE shows an asymmetrical gamma. Performed By: #### M G, CMP, PHOS #### [facility] [address] [place] [address] [address] Dk Mahoney PDF . Normal [facility] Comment on above: Performed By: #### M G, CMP, PHOS #### [facility] [address] [place] [address] [address] Dk Mahoney Please note: Comment Normal [facility] Comment on above: Result Comment: Prot ein electrophoresis scan will follow via computer, mail, or textile machine operator delivery. Performed By: #### M G, CMP, PHOS #### [facility] [address] [place] [address] [address] Dk Mahoney Protein [Mass/Vol] 5.8 g/dL Critically low 6.0-8.5 Th [facility] Comment on above: Performed By: #### M G, CMP, PHOS #### [facility] [address] [place] [address] Dr. Dk Mahoney PROTEIN ELECTROPHERESIS URIN E RANDOMon 07-09-2022 Albumin, U 23.2 % Normal [facility] Comment on above: Performed By: #### M G, CMP, PHOS #### [facility] [address] [place] [address] Dr. Dk Mahoney Alpha-1 Globulin U 3.6 % Normal [facility] Comment on above: Performed By: #### M G, CMP, PHOS #### [facility] [address] [place] [address] Dr. Dk Mahoney Alpha-2 Glubulin U 19.7 % Normal [facility] Comment on above: Performed By: #### M G, CMP, PHOS #### [facility] [address] [place] [address] [address] Dk Mahoney Beta Globulin, U 31.4 % Normal [facility] Comment on above: Performed By: #### M G, CMP, PHOS #### [facility] [address] [place] [address] Dr. Dk Mahoney Gamma Globulin U 22.1 % Normal [facility] Comment on above: Performed By: #### M G, CMP, PHOS #### [facility] [address] [place] [address] [address] Dk Mahoney M-Primitivo, % Comment: Normal Not Observed [facility] Comment on above: Result Comment: UPE shows an asymmetrical beta. Performed By: #### M G, CMP, PHOS #### [facility] [address] [place] [address] Dr. Dk Mahoney PDF . Normal [facility] Comment on above: Performed By: #### M G, CMP, PHOS #### [facility] [address] [place] [address] Dr. Dk Mahoney Please note: Comment Normal [facility] Comment on above: Result Comment: Prot ein electrophoresis scan will follow via computer, mail, or textile machine operator delivery. Performed By: #### M G, CMP, PHOS #### [facility] [address] [place] [address] Dr. Dk Mahoney Protein (U) [Mass/Vol] 34.7 mg/dL Normal Not Estab. [facility] Comment on above: Performed By: #### M G, CMP, PHOS #### [facility] [address] [place] [address] Dr. Dk Mahoney CBC AUTO DIFFon 07-07-2022 BASO # 0.1 103/ul Normal 0.0-0.1 [facility] Comment on above: Performed By: #### M G, CMP, PHOS #### [facility] [address] [place] [address] Dr. Dk Mahoney Basophils/100 WBC (Bld) 0.9 % Normal 0.2-2.0 [facility] Comment on above: Performed By: #### M G, CMP, PHOS #### [facility] [address] [place] [address] Dr. Dk Mahoney EO # 0.2 103/ul Normal 0.0-0.7 [facility] Comment on above: Performed By: #### M G, CMP, PHOS #### [facility] [address] [place] [address] Dr. Dk Mahoney Eosinophils/100 WBC (Bld) 2.9 % Normal 0.9-7.0 [facility] Comment on above: Performed By: #### M G, CMP, PHOS #### [facility] [address] [place] [address] Dr. Dk Mahoney Erythrocyte distribution width (RBC) [Ratio] 15.0 % Normal 11.0-15.0 [facility] Comment on above: Performed By: #### M G, CMP, PHOS #### [facility] [address] [place] [address] Dr. Dk Mahoney Hematocrit (Bld) [Volume fraction] 24.4 % Critically low 42.0-54.0 [facility] Comment on above: Performed By: #### M G, CMP, PHOS #### [facility] [address] [place] [address] Dr. Dk Mahoney Hemoglobin (Bld) [Mass/Vol] 7.8 g/dL Critically low 14.0-18.0 [facility] Comment on above: Performed By: #### M G, CMP, PHOS #### [facility] [address] [place] [address] Dr. Dk Mahoney IG # 0.07 10e3/ul Critically high 0.00-0.03 [facility] Comment on above: Performed By: #### M G, CMP, PHOS #### [facility] [address] [place] [address] Dr. Dk Mahoney IG % 1.1 % Critically high 0.0-0.5 [facility] Comment on above: Performed By: #### M G, CMP, PHOS #### [facility] [address] [place] [address] Dr. Dk Mahoney LYMPH # 1.0 103/ul Critically low 1.2-3.8 [facility] Comment on above: Performed By: #### M G, CMP, PHOS #### [facility] [address] [place] [address] Dr. Dk Mahoney Lymphocytes/100 WBC (Bld) 15.4 % Critically low 20.5-60.0 [facility] Comment on above: Performed By: #### M G, CMP, PHOS #### [facility] [address] [place] [address] Dr. Dk Mahoney MANUAL DIFF REQ NO Normal [facility] Comment on above: Performed By: #### M G, CMP, PHOS #### [facility] [address] [place] [address] Dr. Dk Mahoney MCH (RBC) [Entitic mass] 29.3 pg Normal 25.9-34.0 [facility] Comment on above: Performed By: #### M G, CMP, PHOS #### [facility] [address] [place] [address] Dr. Dk Mahoney MCHC (RBC) [Mass/Vol] 32.0 g/dL Normal 29.9-35.2 [facility] Comment on above: Performed By: #### M G, CMP, PHOS #### [facility] [address] [place] [address] Dr. Dk Mahoney MCV (RBC) [Entitic vol] 91.7 fL Normal 80.0-94.0 [facility] Comment on above: Performed By: #### M G, CMP, PHOS #### [facility] [address] [place] [address] Dr. Dk Mahoney MONO # 0.6 103/ul Normal 0.3-0.8 [facility] Comment on above: Performed By: #### M G, CMP, PHOS #### [facility] [address] [place] [address] Dr. Dk Mahoney Monocytes/100 WBC (Bld) 9.2 % Normal 1.7-12.0 [facility] Comment on above: Performed By: #### M G, CMP, PHOS #### [facility] [address] [place] [address] Dr. Dk Mahoney NEUT # 4.6 103/ul Normal 1.4-6.5 [facility] Comment on above: Performed By: #### M G, CMP, PHOS #### [facility] [address] [place] [address] Dr. Dk Mahoney Neutrophils/100 WBC (Bld) 70.5 % Normal 43.0-75.0 [facility] Comment on above: Performed By: #### M G, CMP, PHOS #### [facility] [address] [place] [address] [address] Dk Mahoney Platelet mean volume (Bld) [Entitic vol] 10.1 fL Normal 9.5-13.5 [facility] Comment on above: Performed By: #### M G, CMP, PHOS #### [facility] [address] [place] [address] [address] Dk Mahoney PLT 172 103/ul Normal 150-450 [facility] [facility] Comment on above: Performed By: #### M G, CMP, PHOS #### [facility] [address] [place] [address] Dr. Dk Mahoney RBC 2.66 106/ul Critically low 4.70-6.10 [facility] Comment on above: Performed By: #### M Young, CMP, PHOS #### [facility] [address] [place] [address] Dr. Dk Mahoney WBC 6.5 103/ul Normal 4.0-11.0 [facility] Comment on above: Performed By: #### M Young, CMP, PHOS #### [facility] [address] [place] [address] Dr. Dk Mahoney MAGNESIUMon 07-07-2022 Magnesium [Mass/Vol] 1.4 mg/dL Critically low 1.8-2.4 [facility] Comment on above: Performed By: #### M Young, CMP, PHOS #### [facility] [address] [place] [address] Dr. Dk Mahoney PHOSPHORUSon 07-07-2022 Phosphate [Mass/Vol] 5.9 mg/dL Critically high 2.6-4.7 [facility] Comment on above: Performed By: #### M Young, CMP, PHOS #### [facility] [address] [place] [address] Dr. Dk Mahoney POINT OF CARE GLUCOSEon 06-13 Glucose [Mass/Vol] 121 mg/dL Critically high 74-106 [facility] Comment on above: Performed By: #### M G, CMP, PHOS #### [facility] [address] [address] [address] Dk Mahoney PROF 14(COMP METB)on 023 Albumin [Mass/Vol] 2.4 g/dL Critically low 3.4-5.0 [facility] Comment on above: Performed By: #### M G, CMP, PHOS #### [facility] [address] [address] [address] Dk Mahoney Albumin/Globulin [Mass ratio] 0.6 {ratio} Normal [facility] Comment on above: Performed By: #### M G, CMP, PHOS #### [facility] [address] [address] [address] Dk Mahoney ALP [Catalytic activity/Vol] 128 U/L Critically high 46-116 [facility] Comment on above: Performed By: #### M G, CMP, PHOS #### [facility] [address] [address] [address] Dk Mahoney ALT [Catalytic activity/Vol] 49 U/L Normal 16-63 [facility] Comment on above: Performed By: #### M G, CMP, PHOS #### [facility] [address] [address] [address] Dk Mahoney Anion gap [Moles/Vol] 16.3 mmol/L Normal [facility] Comment on above: Performed By: #### M G, CMP, PHOS #### [facility] [address] [address] [address] Dk Mahoney AST [Catalytic activity/Vol] 17 U/L Normal 15-37 [facility] Comment on above: Performed By: #### M G, CMP, PHOS #### [facility] [address] [address] [address] Dk Mahoney Bilirubin [Mass/Vol] 0.3 mg/dL Normal 0.2-1.0 [facility] Comment on above: Performed By: #### M G, CMP, PHOS #### [facility] [address] [address] [address] Dk Mahoney Calcium [Mass/Vol] 9.2 mg/dL Normal 8.5-10.1 [facility] Comment on above: Performed By: #### M Young CMP, PHOS #### [facility] [address] [place] [address] Dr. Dk Mahoney Chloride [Moles/Vol] 105 mmol/L Normal 98-107 [facility] Comment on above: Performed By: #### M Young CMP, PHOS #### [facility] [address] [place] [address] Dr. Dk Mahoney CO2 [Moles/Vol] 20.3 mmol/L Critically low 21.0-32.0 [facility] Comment on above: Performed By: #### M Young CMP, PHOS #### [facility] [address] [place] [address] Dr. Dk Mahoney Creatinine [Mass/Vol] 5.59 mg/dL Critically high 0.70-1.30 [facility] Comment on above: Performed By: #### Rosmery Vidal CMP, PHOS #### [facility] [address] [place] [address] Dr. Dk Mahoney EGFR-AF WELSH 12 mL/min/1.73m2 Critically low >=60 [facility] Comment on above: Performed By: #### Rosmery Vidal CMP, PHOS #### [facility] [address] [place] [address] Dr. Dk Mahoney EGFR-NON AF WELSH 10 mL/min/1.73m2 Critically low >=60 [facility] Comment on above: Performed By: #### Rosmery Vidal CMP, PHOS #### [facility] [address] [place] [address] Dr. Dk Mahoney Globulin (S) [Mass/Vol] 3.7 g/dL Normal [facility] Comment on above: Performed By: #### M Young CMP, PHOS #### [facility] [address] [place] [address] Dr. Dk Mahoney Glucose [Mass/Vol] 191 mg/dL Critically high 74-106 [facility] Comment on above: Performed By: #### M Young CMP, PHOS #### [facility] [address] [place] [address] Dr. Dk Mahoney Potassium [Moles/Vol] 4.5 mmol/L Normal 3.5-5.1 [facility] Comment on above: Performed By: #### M G, CMP, PHOS #### [facility] [address] [place] [address] Dr. Dk Mahoney Protein [Mass/Vol] 6.1 g/dL Critically low 6.4-8.2 [facility] Comment on above: Performed By: #### M G, CMP, PHOS #### [facility] [address] [place] [address] Dr. Dk Mahoney Sodium [Moles/Vol] 137 mmol/L Normal 136-145 [facility] Comment on above: Performed By: #### M G, CMP, PHOS #### [facility] [address] [place] [address] Dr. Dk Mahoney Urea nitrogen [Mass/Vol] 83.0 mg/dL Critically high 7.0-18.0 [facility] Comment on above: Performed By: #### M G, CMP, PHOS #### [facility] [address] [place] [address] Dr. Dk Mahoney Urea nitrogen/Creatinine [Mass ratio] 14.8 mg/mg Normal [facility] Comment on above: Performed By: #### M G, CMP, PHOS #### [facility] [address] [place] [address] Dr. Dk Mahoney CBC AUTO DIFFon 07-06-2022 BASO # 0.1 103/ul Normal 0.0-0.1 [facility] Comment on above: Performed By: #### M G, CMP, PHOS #### [facility] [address] [place] [address] Dr. Dk Mahoney Basophils/100 WBC (Bld) 0.9 % Normal 0.2-2.0 [facility] Comment on above: Performed By: #### M G, CMP, PHOS #### [facility] [address] [place] [address] Dr. Dk Mahoney EO # 0.2 103/ul Normal 0.0-0.7 [facility] Comment on above: Performed By: #### M SHIREEN Vidal, PHOS #### [facility] [address] [place] [address] Dr. Dk Mahoney Eosinophils/100 WBC (Bld) 2.9 % Normal 0.9-7.0 [facility] Comment on above: Performed By: #### M Young CMP, PHOS #### [facility] [address] [place] [address] Dr. Dk Mahoney Erythrocyte distribution width (RBC) [Ratio] 15.0 % Normal 11.0-15.0 [facility] Comment on above: Performed By: #### M Young CMP, PHOS #### [facility] [address] [place] [address] Dr. Dk Mahoney Hematocrit (Bld) [Volume fraction] 24.2 % Critically low 42.0-54.0 [facility] Comment on above: Performed By: #### M SHIREEN Vidal, PHOS #### [facility] [address] [place] [address] Dr. Dk Mahoney Hemoglobin (Bld) [Mass/Vol] 8.0 g/dL Critically low 14.0-18.0 [facility] Comment on above: Performed By: #### M Young CMP, PHOS #### [facility] [address] [place] [address] Dr. Dk Mahoney IG # 0.06 10e3/ul Critically high 0.00-0.03 [facility] Comment on above: Performed By: #### M G, CMP, PHOS #### [facility] [address] [place] [address] Dr. Dk Mahoney IG % 0.9 % Critically high 0.0-0.5 [facility] Comment on above: Performed By: #### M G, CMP, PHOS #### [facility] [address] [place] [address] Dr. Dk Mahoney LYMPH # 1.0 103/ul Critically low 1.2-3.8 [facility] Comment on above: Performed By: #### M G, CMP, PHOS #### [facility] [address] [place] [address] Dr. Dk Mahoney Lymphocytes/100 WBC (Bld) 14.6 % Critically low 20.5-60.0 [facility] Comment on above: Performed By: #### M G, CMP, PHOS #### [facility] [address] [place] [address] Dr. Dk Mahoney MANUAL DIFF REQ NO Normal [facility] Comment on above: Performed By: #### M G, CMP, PHOS #### [facility] [address] [place] [address] Dr. Dk Mahoney MCH (RBC) [Entitic mass] 30.4 pg Normal 25.9-34.0 [facility] Comment on above: Performed By: #### M G, CMP, PHOS #### [facility] [address] [place] [address] Dr. Dk Mahoney MCHC (RBC) [Mass/Vol] 33.1 g/dL Normal 29.9-35.2 [facility] Comment on above: Performed By: #### M G, CMP, PHOS #### [facility] [address] [place] [address] Dr. Dk Mahoney MCV (RBC) [Entitic vol] 92.0 fL Normal 80.0-94.0 [facility] Comment on above: Performed By: #### M G, CMP, PHOS #### [facility] [address] [place] [address] Dr. Dk Mahoney MONO # 0.7 103/ul Normal 0.3-0.8 [facility] Comment on above: Performed By: #### M G, CMP, PHOS #### [facility] [address] [place] [address] Dr. Dk Mahoney Monocytes/100 WBC (Bld) 11.1 % Normal 1.7-12.0 [facility] Comment on above: Performed By: #### M G, CMP, PHOS #### [facility] [address] [place] [address] Dr. Dk Mahoney NEUT # 4.5 103/ul Normal 1.4-6.5 [facility] Comment on above: Performed By: #### M Young CMP, PHOS #### [facility] [address] [address] [address] Dk Mahoney Neutrophils/100 WBC (Bld) 69.6 % Normal 43.0-75.0 [facility] Comment on above: Performed By: #### M Young CMP, PHOS #### [facility] [address] [place] [address] Dr. Dk Mahnoey Platelet mean volume (Bld) [Entitic vol] 9.4 fL Critically low 9.5-13.5 [facility] Comment on above: Performed By: #### M Young CMP, PHOS #### [facility] [address] [place] [address] Dr. Dk Mahoney PLT 159 103/ul Normal 150-450 [facility] Comment on above: Performed By: #### Rosmery Vidal CMP, PHOS #### [facility] [address] [place] [address] Dr. Dk Mahoney RBC 2.63 106/ul Critically low 4.70-6.10 [facility] Comment on above: Performed By: #### M Young CMP, PHOS #### [facility] [address] [place] [address] Dr. Dk Mahoney WBC 6.5 103/ul Normal 4.0-11.0 [facility] Comment on above: Performed By: #### M Yougn CMP, PHOS #### [facility] [address] [place] [address] Dr. Dk Mahoney BASO # 0.0 103/ul Normal 0.0-0.1 [facility] Comment on above: Performed By: #### C BC #### [facility] [address] [place] [address] Dr. Dk Mahoney Basophils/100 WBC (Bld) 0.6 % Normal 0.2-2.0 [facility] Comment on above: Performed By: #### C BC #### [facility] [address] [address] [address] Dk Mahoney EO # 0.2 103/ul Normal 0.0-0.7 [facility] Comment on above: Performed By: #### C BC #### [facility] [address] [address] [address] Dk Mahoney Eosinophils/100 WBC (Bld) 3.2 % Normal 0.9-7.0 [facility] Comment on above: Performed By: #### C BC #### [facility] [address] [place] [address] Dr. Dk Mahoney Erythrocyte distribution width (RBC) [Ratio] 15.2 % Critically high 11.0-15.0 [facility] Comment on above: Performed By: #### C BC #### [facility] [address] [place] [address] Dr. Dk Mahoney Hematocrit (Bld) [Volume fraction] 21.4 % Critically low 42.0-54.0 [facility] Comment on above: Performed By: #### C BC #### [facility] [address] [place] [address] Dr. Dk Mahoney Hemoglobin (Bld) [Mass/Vol] 6.9 g/dL Critically low 14.0-18.0 [facility] Comment on above: Performed By: #### C BC #### [facility] [address] [place] [address] Dr. Dk Mahoney IG # 0.05 10e3/ul Critically high 0.00-0.03 [facility] Comment on above: Performed By: #### C BC #### [facility] [address] [place] [address] Dr. Dk Mahoney IG % 0.8 % Critically high 0.0-0.5 [facility] Comment on above: Performed By: #### C BC #### [facility] [address] [place] [address] Dr. Dk Mahoney LYMPH # 0.9 103/ul Critically low 1.2-3.8 [facility] Comment on above: Performed By: #### C BC #### [facility] [address] [place] [address] Dr. Dk Mahoney Lymphocytes/100 WBC (Bld) 13.8 % Critically low 20.5-60.0 [facility] Comment on above: Performed By: #### C BC #### [facility] [address] [place] [address] Dr. Dk Mahoney MANUAL DIFF REQ NO Normal [facility] Comment on above: Performed By: #### C BC #### [facility] [address] [place] [address] Dr. Dk Mahoney MCH (RBC) [Entitic mass] 29.9 pg Normal 25.9-34.0 [facility] Comment on above: Performed By: #### C BC #### [facility] [address] [place] [address] Dr. Dk Mahoney MCHC (RBC) [Mass/Vol] 32.2 g/dL Normal 29.9-35.2 [facility] Comment on above: Performed By: #### C BC #### [facility] [address] [place] [address] Dr. Dk Mahoney MCV (RBC) [Entitic vol] 92.6 fL Normal 80.0-94.0 [facility] Comment on above: Performed By: #### C BC #### [facility] [address] [place] [address] Dr. Dk Mahoney MONO # 0.8 103/ul Normal 0.3-0.8 [facility] Comment on above: Performed By: #### C BC #### [facility] [address] [place] [address] Dr. Dk Mahoney Monocytes/100 WBC (Bld) 11.4 % Normal 1.7-12.0 [facility] Comment on above: Performed By: #### C BC #### [facility] [address] [place] [address] Dr. Dk Mahoney NEUT # 4.6 103/ul Normal 1.4-6.5 [facility] Comment on above: Performed By: #### C BC #### [facility] [address] [place] [address] Dr. Dk Mahoney Neutrophils/100 WBC (Bld) 70.2 % Normal 43.0-75.0 [facility] Comment on above: Performed By: #### C BC #### [facility] [address] [place] [address] Dr. Dk Mahoney Platelet mean volume (Bld) [Entitic vol] 9.6 fL Normal 9.5-13.5 [facility] Comment on above: Performed By: #### C BC #### [facility] [address] [place] [address] Dr. kD Mahoney PLT 163 103/ul Normal 150-450 [facility] Comment on above: Performed By: #### C BC #### [facility] [address] [place] [address] Dr. Dk Mahoney RBC 2.31 106/ul Critically low 4.70-6.10 [facility] Comment on above: Performed By: #### C BC #### [facility] [address] [place] [address] Dr. Dk Mahoney WBC 6.6 103/ul Normal 4.0-11.0 [facility] Comment on above: Performed By: #### C BC #### [facility] [address] [place] [address] Dr. Dk Mahoney FERRITINon 07-06-2022 Ferritin [Mass/Vol] 538.0 ng/mL Critically high 26.0-388.0 [facility] Comment on above: Performed By: #### M G, CMP, PHOS #### [facility] [address] [place] [address] Dr. Dk Mahoney IRON AND TIBCon 07-06-2022 % SATURATION 29.7 % Normal [facility] Comment on above: Performed By: #### M G, CMP, PHOS #### [facility] [address] [place] [address] Dr. Dk Mahoney Iron [Mass/Vol] 51.0 ug/dL Critically low 65.0-175.0 [facility] Comment on above: Performed By: #### M G, CMP, PHOS #### [facility] [address] [address] [address] Dk Mahoney TIBC DIRECT 172.0 ug/dL Critically low 250.0-450.0 [facility] Comment on above: Performed By: #### Rosmery Vidal CMP, PHOS #### [facility] [address] [address] [address] Dk Mahoney LDHon 07-06-2022 LDH 126 U/L Normal 85-227 [facility] Comment on above: Performed By: #### Rosmery Vidal CMP, PHOS #### [facility] [address] [address] [address] Dk Mahoney MAGNESIUMon 07-06-2022 Magnesium [Mass/Vol] 1.5 mg/dL Critically low 1.8-2.4 [facility] Comment on above: Performed By: #### Rosmery Vidal CMP, PHOS #### [facility] [address] [place] [address] Dr. Dk Mahoney PHOSPHORUSon 07-06-2022 Phosphate [Mass/Vol] 7.8 mg/dL Critically high 2.6-4.7 [facility] Comment on above: Performed By: #### Rosmery Vidal CMP, PHOS #### [facility] [address] [place] [address] Dr. Dk Mahoney POINT OF CARE GLUCOSEon 06-13 Glucose [Mass/Vol] 149 mg/dL Critically high 74-106 [facility] Comment on above: Performed By: #### Rosmery Vidal CMP, PHOS #### [facility] [address] [address] [address] Dk Mahoney Glucose [Mass/Vol] 145 mg/dL Critically high 74-106 [facility] Comment on above: Performed By: #### Rosmery Vidal CMP, PHOS #### [facility] [address] [place] [address] Dr. Dk Mahoney Glucose [Mass/Vol] 112 mg/dL Critically high 74-106 [facility] Comment on above: Performed By: #### Rosmery Vidal CMP, PHOS #### [facility] [address] [place] [address] Dr. Dk Mahoney Glucose [Mass/Vol] 133 mg/dL Critically high 74-106 [facility] Comment on above: Performed By: #### M G, CMP, PHOS #### [facility] [address] [address] [address] Dk Mahoney Glucose [Mass/Vol] 173 mg/dL Critically high 74-106 [facility] Comment on above: Performed By: #### P OCGLUC #### [facility] [address] [address] [address] Dk Mahoney PROF 14(COMP METB)on 023 Albumin [Mass/Vol] 2.4 g/dL Critically low 3.4-5.0 [facility] Comment on above: Performed By: #### M Young, CMP, PHOS #### [facility] [address] [place] [address] Dr. Dk Mahoney Albumin/Globulin [Mass ratio] 0.6 {ratio} Normal [facility] Comment on above: Performed By: #### M G, CMP, PHOS #### [facility] [address] [address] [address] Dk Mahoney ALP [Catalytic activity/Vol] 133 U/L Critically high 46-116 [facility] Comment on above: Performed By: #### M G, CMP, PHOS #### [facility] [address] [place] [address] Dr. Dk Mahoney ALT [Catalytic activity/Vol] 58 U/L Normal 16-63 [facility] Comment on above: Performed By: #### M G, CMP, PHOS #### [facility] [address] [address] [address] Dk Mahoney Anion gap [Moles/Vol] 16.8 mmol/L Normal [facility] Comment on above: Performed By: #### M G, CMP, PHOS #### [facility] [address] [address] [address] Dk Mahoney AST [Catalytic activity/Vol] 20 U/L Normal 15-37 [facility] Comment on above: Performed By: #### M G, CMP, PHOS #### [facility] [address] [place] [address] Dr. Dk Mahoney Bilirubin [Mass/Vol] 0.2 mg/dL Normal 0.2-1.0 [facility] Comment on above: Performed By: #### M G, CMP, PHOS #### [facility] [address] [place] [address] Dr. Dk Mahoney Calcium [Mass/Vol] 9.0 mg/dL Normal 8.5-10.1 [facility] Comment on above: Performed By: #### M G, CMP, PHOS #### [facility] [address] [place] [address] Dr. Dk Mahoney Chloride [Moles/Vol] 107 mmol/L Normal 98-107 [facility] Comment on above: Performed By: #### M G, CMP, PHOS #### [facility] [address] [place] [address] Dr. Dk Mahoney CO2 [Moles/Vol] 18.2 mmol/L Critically low 21.0-32.0 [facility] Comment on above: Performed By: #### M G, CMP, PHOS #### [facility] [address] [place] [address] Dr. Dk Mahoney Creatinine [Mass/Vol] 5.80 mg/dL Critically high 0.70-1.30 [facility] Comment on above: Performed By: #### M G, CMP, PHOS #### [facility] [address] [place] [address] Dr. Dk Mahoney EGFR-AF WELSH 12 mL/min/1.73m2 Critically low >=60 [facility] Comment on above: Performed By: #### M G, CMP, PHOS #### [facility] [address] [place] [address] Dr. Dk Mahoney EGFR-NON AF WELSH 10 mL/min/1.73m2 Critically low >=60 [facility] Comment on above: Performed By: #### M G, CMP, PHOS #### [facility] [address] [place] [address] Dr. Dk Mahoney Globulin (S) [Mass/Vol] 3.9 g/dL Normal [facility] Comment on above: Performed By: #### M SHIREEN Vidal, PHOS #### [facility] [address] [address] [address] Dk Mahoney Glucose [Mass/Vol] 108 mg/dL Critically high 74-106 [facility] Comment on above: Performed By: #### M Young CMP, PHOS #### [facility] [address] [address] [address] Dk Mahoney Potassium [Moles/Vol] 5.0 mmol/L Normal 3.5-5.1 [facility] Comment on above: Performed By: #### M Young CMP, PHOS #### [facility] [address] [place] [address] Dr. Dk Mahoney Protein [Mass/Vol] 6.3 g/dL Critically low 6.4-8.2 [facility] Comment on above: Performed By: #### M Young CMP, PHOS #### [facility] [address] [address] [address] Dk Mahoney Sodium [Moles/Vol] 137 mmol/L Normal 136-145 [facility] Comment on above: Performed By: #### M Young CMP, PHOS #### [facility] [address] [address] [address] Dk Mahoney Urea nitrogen [Mass/Vol] 83.0 mg/dL Critically high 7.0-18.0 [facility] Comment on above: Performed By: #### M Young, CMP, PHOS #### [facility] [address] [address] [address] Dk Mahoney Urea nitrogen/Creatinine [Mass ratio] 14.3 mg/mg Normal [facility] Comment on above: Performed By: #### M Young CMP, PHOS #### [facility] [address] [address] [address] Dk Mahoney RETICULOCYTEon 07-06-2022 RETIC 4.20 % Critically high 0.60-3.10 [facility] Comment on above: Performed By: #### M G, CMP, PHOS #### [facility] [address] [place] [address] Dr. Dk Mahoney TYPE AND SCREENon 07-06-2022 TYPE AND SCREEN Negative Normal [facility] Comment on above: Performed By: #### P OCGLUC #### [facility] [address] [place] [address] Dr. Dk Mahoney URIC ACID SERUMon 07-06-2022 Urate [Mass/Vol] 6.1 mg/dL Normal 3.5-7.2 [facility] Comment on above: Performed By: #### M G, CMP, PHOS #### [facility] [address] [place] [address] Dr. Dk Mahoney VIT B12 AND FOLATEon 023 Cobalamin (Vitamin B12) [Mass/Vol] 686.0 pg/mL Normal 193.0-986.0 [facility] Comment on above: Performed By: #### P OCGLUC #### [facility] [address] [place] [address] Dr. Dk Mahoney FOLATE 15.50 ng/mL Normal 8.60-58.90 [facility] Comment on above: Performed By: #### P OCGLUC #### [facility] [address] [place] [address] Dr. Dk Mahoney CBC AUTO DIFFon 07-05-2022 BASO # 0.1 103/ul Normal 0.0-0.1 [facility] Comment on above: Performed By: #### M G, CMP, PHOS #### [facility] [address] [place] [address] Dr. Dk Mahoney Basophils/100 WBC (Bld) 0.7 % Normal 0.2-2.0 [facility] Comment on above: Performed By: #### M G, CMP, PHOS #### [facility] [address] [place] [address] Dr. kD Mahoney EO # 0.2 103/ul Normal 0.0-0.7 [facility] Comment on above: Performed By: #### M G, CMP, PHOS #### [facility] [address] [place] [address] Dr. Dk Mahoney Eosinophils/100 WBC (Bld) 3.1 % Normal 0.9-7.0 [facility] Comment on above: Performed By: #### M G, CMP, PHOS #### [facility] [address] [place] [address] Dr. Dk Mahoney Erythrocyte distribution width (RBC) [Ratio] 15.4 % Critically high 11.0-15.0 [facility] Comment on above: Performed By: #### M G, CMP, PHOS #### [facility] [address] [place] [address] Dr. Dk Mahoney Hematocrit (Bld) [Volume fraction] 23.9 % Critically low 42.0-54.0 [facility] Comment on above: Performed By: #### M G, CMP, PHOS #### [facility] [address] [place] [address] Dr. Dk Mahoney Hemoglobin (Bld) [Mass/Vol] 7.7 g/dL Critically low 14.0-18.0 [facility] Comment on above: Performed By: #### M G, CMP, PHOS #### [facility] [address] [place] [address] Dr. Dk Mahoney IG # 0.05 10e3/ul Critically high 0.00-0.03 [facility] Comment on above: Performed By: #### M G, CMP, PHOS #### [facility] [address] [place] [address] Dr. Dk Mahoney IG % 0.7 % Critically high 0.0-0.5 [facility] Comment on above: Performed By: #### M G, CMP, PHOS #### [facility] [address] [place] [address] Dr. Dk Mahoney LYMPH # 1.0 103/ul Critically low 1.2-3.8 [facility] Comment on above: Performed By: #### M G, CMP, PHOS #### [facility] [address] [place] [address] Dr. Dk Mahoney Lymphocytes/100 WBC (Bld) 12.8 % Critically low 20.5-60.0 [facility] Comment on above: Performed By: #### M Young CMP, PHOS #### [facility] [address] [place] [address] Dr. Dk Mahoney MANUAL DIFF REQ NO Normal [facility] Comment on above: Performed By: #### M Young, CMP, PHOS #### [facility] [address] [place] [address] Dr. Dk Mahoney MCH (RBC) [Entitic mass] 30.0 pg Normal 25.9-34.0 [facility] Comment on above: Performed By: #### M Young CMP, PHOS #### [facility] [address] [place] [address] Dr. Dk Mahoney MCHC (RBC) [Mass/Vol] 32.2 g/dL Normal 29.9-35.2 [facility] Comment on above: Performed By: #### M Young CMP, PHOS #### [facility] [address] [place] [address] Dr. Dk Mahoney MCV (RBC) [Entitic vol] 93.0 fL Normal 80.0-94.0 [facility] Comment on above: Performed By: #### M Young CMP, PHOS #### [facility] [address] [place] [address] Dr. Dk Mahoney MONO # 0.8 103/ul Normal 0.3-0.8 [facility] Comment on above: Performed By: #### M G, CMP, PHOS #### [facility] [address] [place] [address] Dr. Dk Mahoney Monocytes/100 WBC (Bld) 10.2 % Normal 1.7-12.0 [facility] Comment on above: Performed By: #### M G, CMP, PHOS #### [facility] [address] [place] [address] Dr. Dk Mahoney NEUT # 5.6 103/ul Normal 1.4-6.5 [facility] Comment on above: Performed By: #### M Young, CMP, PHOS #### [facility] [address] [address] [address] Dk Mahoney Neutrophils/100 WBC (Bld) 72.5 % Normal 43.0-75.0 [facility] Comment on above: Performed By: #### M G, CMP, PHOS #### [facility] [address] [address] [address] Dk Mahoney Platelet mean volume (Bld) [Entitic vol] 9.8 fL Normal 9.5-13.5 [facility] Comment on above: Performed By: #### M G, CMP, PHOS #### [facility] [address] [address] [address] Dk Mahoney PLT 203 103/ul Normal 150-450 [facility] Comment on above: Performed By: #### M G, CMP, PHOS #### [facility] [address] [address] [address] Dk Mahoney RBC 2.57 106/ul Critically low 4.70-6.10 [facility] Comment on above: Performed By: #### M G, CMP, PHOS #### [facility] [address] [address] [address] Dk Mahoney WBC 7.7 103/ul Normal 4.0-11.0 [facility] Comment on above: Performed By: #### M G, CMP, PHOS #### [facility] [address] [place] [address] ABD/PELVIS WO CONon [...] MARQUES AMAYA Date: 2022-07-05 18:21 Normal [facility] Covid-19 PCR ([facility])on 06-13 SARS-CoV-2 (COVID-19) RNA JASON+probe Ql (Unsp spec) Not detected Normal NOT DETECTED [facility] Comment on above: Result Comment: When [...] for this test is supported by the [place] of Health and Human Service's declaration that [...] used). Performed By: #### C BC #### [facility] [address] [place] [address] Dr. Dk Mahoney ER URINE PROFILEon 3 Bilirubin Ql (U) Negative Normal NEGATIVE [facility] Comment on above: Performed By: #### M Young CMP, PHOS #### [facility] [address] [place] [address] Dr. Dk Mahoney Clarity (U) CLEAR Normal CLEAR [facility] Comment on above: Performed By: #### M Young CMP, PHOS #### [facility] [address] [place] [address] Dr. Dk Mahoney Color (U) YELLOW Normal YELLOW [facility] Comment on above: Performed By: #### M G CMP, PHOS #### [facility] [address] [place] [address] Dr. Dk Mahoney ERUD A micrscopic examination will be performed if indicated. Normal [facility] Comment on above: Performed By: #### M G, CMP, PHOS #### [facility] [address] [place] [address] Dr. Dk Mahoney Glucose Ql (U) 100 mg/dl Abnormal NEGATIVE [facility] Comment on above: Performed By: #### M G, CMP, PHOS #### [facility] [address] [place] [address] Dr. Dk Mahoney Hemoglobin Ql (U) MODERATE Abnormal NEGATIVE [facility] Comment on above: Performed By: #### M G, CMP, PHOS #### [facility] [address] [address] [address] Dk Mahoney Ketones Ql (U) Negative Normal NEGATIVE [facility] Comment on above: Performed By: #### M G, CMP, PHOS #### [facility] [address] [place] [address] Dr. Dk Mahoney LEUKOCYTES LARGE Abnormal NEGATIVE [facility] Comment on above: Performed By: #### M G, CMP, PHOS #### [facility] [address] [address] [address] Dk Mahoney Nitrite Ql (U) Negative Normal NEGATIVE [facility] Comment on above: Performed By: #### M G, CMP, PHOS #### [facility] [address] [place] [address] Dr. Dk Mahoney pH (U) 7.0 [pH] Normal 5-9 [facility] Comment on above: Performed By: #### M G, CMP, PHOS #### [facility] [address] [place] [address] Dr. Dk Mahoney Protein (U) [Mass/Vol] 30 mg/dL Abnormal NEGATIVE/ TRACE [facility] Comment on above: Performed By: #### M G, CMP, PHOS #### [facility] [address] [place] [address] Dr. Dk Mahoney SPEC GRAVITY 1.010 Normal 1.005-<=1.02 5 [facility] Comment on above: Performed By: #### M G, CMP, PHOS #### [facility] [address] [place] [address] Dr. Dk Mahoney UR MICRO IND INDICATED Normal [facility] Comment on above: Performed By: #### M G, CMP, PHOS #### [facility] [address] [place] [address] Dr. Dk Mahoney Urobilinogen Qn (U) 0.2 {Ramiro'U}/dL Normal 0.2 - 1. 0 [facility] Comment on above: Performed By: #### M G, CMP, PHOS #### [facility] [address] [address] [address] Dk Mahoney PROF 14(COMP METB)on 023 Albumin [Mass/Vol] 2.7 g/dL Critically low 3.4-5.0 [facility] Comment on above: Performed By: #### C BC #### [facility] [address] [place] [address] Dr. Dk Mahoney Albumin/Globulin [Mass ratio] 0.6 {ratio} Normal [facility] Comment on above: Performed By: #### C BC #### [facility] [address] [place] [address] Dr. Dk Mahoney ALP [Catalytic activity/Vol] 148 U/L Critically high 46-116 [facility] Comment on above: Performed By: #### C BC #### [facility] [address] [place] [address] Dr. Dk Mahoney ALT [Catalytic activity/Vol] 70 U/L Critically high 16-63 [facility] Comment on above: Performed By: #### C BC #### [facility] [address] [place] [address] Dr. Dk Mahoney Anion gap [Moles/Vol] 16.7 mmol/L Normal [facility] Comment on above: Performed By: #### C BC #### [facility] [address] [place] [address] Dr. Dk Mahoney AST [Catalytic activity/Vol] 26 U/L Normal 15-37 [facility] Comment on above: Performed By: #### C BC #### [facility] [address] [place] [address] Dr. Dk Mahoney Bilirubin [Mass/Vol] 0.4 mg/dL Normal 0.2-1.0 [facility] Comment on above: Performed By: #### C BC #### [facility] [address] [place] [address] Dr. Dk Mahoney Calcium [Mass/Vol] 9.2 mg/dL Normal 8.5-10.1 [facility] Comment on above: Performed By: #### C BC #### [facility] [address] [address] [address] Dk Mahoney Chloride [Moles/Vol] 105 mmol/L Normal 98-107 [facility] Comment on above: Performed By: #### C BC #### [facility] [address] [address] [address] Dk Mahoney CO2 [Moles/Vol] 18.1 mmol/L Critically low 21.0-32.0 [facility] Comment on above: Performed By: #### C BC #### [facility] [address] [address] [address] Dk Mahoney Creatinine [Mass/Vol] 5.81 mg/dL Critically high 0.70-1.30 [facility] Comment on above: Performed By: #### C BC #### [facility] [address] [address] [address] Dk Mahoney EGFR-AF WELSH 12 mL/min/1.73m2 Critically low >=60 [facility] Comment on above: Performed By: #### C BC #### [facility] [address] [address] [address] Dk Mahoney EGFR-NON AF WELSH 10 mL/min/1.73m2 Critically low >=60 [facility] Comment on above: Performed By: #### C BC #### [facility] [address] [address] [address] Dk Mahoney Globulin (S) [Mass/Vol] 4.3 g/dL Normal [facility] Comment on above: Performed By: #### C BC #### [facility] [address] [address] [address] Dk Mahoney Glucose [Mass/Vol] 138 mg/dL Critically high 74-106 [facility] Comment on above: Performed By: #### C BC #### [facility] [address] [address] [address] Dk Mahoney Potassium [Moles/Vol] 4.8 mmol/L Normal 3.5-5.1 [facility] Comment on above: Performed By: #### C BC #### [facility] [address] [address] [address] Dk Mahoney Protein [Mass/Vol] 7.0 g/dL Normal 6.4-8.2 [facility] Comment on above: Performed By: #### C BC #### [facility] [address] [address] [address] Dk Mahoney Sodium [Moles/Vol] 135 mmol/L Critically low 136-145 [facility] Comment on above: Performed By: #### C BC #### [facility] [address] [address] [address] Dk Mahoney Urea nitrogen [Mass/Vol] 83.0 mg/dL Critically high 7.0-18.0 [facility] Comment on above: Performed By: #### C BC #### [facility] [address] [address] [address] Dk Mahoney Urea nitrogen/Creatinine [Mass ratio] 14.3 mg/mg Normal [facility] Comment on above: Performed By: #### C BC #### [facility] [address] [address] [address] Dk Mahoney TROPONIN, HIGH SENSITIVITYon 07-05-2022 HSTROP 21.4 pg/mL Normal 4.0-76.1 [facility] Comment on above: Result Comment: CUT- OFF POINTS HAVE BEEN ESTABLISHED BASED ON THE FOURTH UNIVERSAL DEFINITIONS OF MYOCARDIAL INFARCTION. THE UPPER REFERENCE LIMIT (URL) OF TROPONIN, DEFINED THE 99TH PERCENTILE OF cTnI DISTRIBUTION IN A REFERENCE POPULATION, HAS BEEN CONFIRMED THE DECISION THRESHOLD FOR CO DIAGNOSIS. Performed By: #### C BC #### [facility] [address] [address] [address] Dk Mahoney URINE MICROSCOPIC ONLYon BACTERIA MODERATE Abnormal NONE SEEN [facility] Comment on above: Performed By: #### M G, CMP, PHOS #### [facility] [address] [id number] [address] Dk Mahoney Bacteria identified Cx Nom (U) INDICATED Normal [facility] Comment on above: Performed By: #### M G, CMP, PHOS #### [facility] [address] [place] [address] Dr. Dk Mahoney CAST NONE SEEN Normal NONE SEEN [facility] Comment on above: Performed By: #### M G, CMP, PHOS #### [facility] [address] [place] [address] Dr. Dk Mahoney Crystals LM Nom (Urine sed) NONE SEEN Normal NONE SEEN [facility] Comment on above: Performed By: #### M G, CMP, PHOS #### [facility] [address] [place] [address] Dr. Dk Mahoney Epithelial cells LM Ql (Urine sed) FEW Abnormal NONE SEEN /RARE [facility] Comment on above: Performed By: #### M G, CMP, PHOS #### [facility] [address] [place] [address] Dr. Dk Mahoney MUCOUS NONE SEEN Normal NONE SEEN [facility] Comment on above: Performed By: #### M G, CMP, PHOS #### [facility] [address] [place] [address] Dr. Dk Mahoney RBC 10-20 Abnormal 0-2 [facility] Comment on above: Performed By: #### M G, CMP, PHOS #### [facility] [address] [place] [address] Dr. Dk Mahoney WBC 75-100 Abnormal NONE SEEN [facility] Comment on above: Performed By: #### M G, CMP, PHOS #### [facility] [address] [place] [address] Dr. Dk Mhaoney YEAST PRESENT Abnormal NONE SEEN [facility] Comment on above: Performed By: #### M G, CMP, PHOS #### [facility] [address] [place] [address] Dr. Dk Mahoney PRBC LEUKOREDUCEDon 05-11-19 23 PRBC LEUKOREDUCED Cross Match Result Compatible Unit Blood Type O Neg Unit Number [id number] Status Information Transfused Product ID Red Blood Cells Product Code [id number] Normal [facility] Comment on above: Performed By: #### P RBC #### [facility] [address] [place] [address] Dr. Dk Mahoney ABO AND RH TYPEon 05-04-2022 ABO and Rh group Nom (Bld) ABO Rh Typing O Rh Negative Normal [facility] Comment on above: Performed By: #### A NOE, TNS #### [facility] [address] [place] [address] Dr. Dk Mahoney BNPon 05-04-2022 Natriuretic peptide B (Bld) [Mass/Vol] 82209.0 pg/mL Critically high <=900.0 [facility] Comment on above: Performed By: #### M G, CMP, PHOS #### [facility] [address] [place] [address] Dr. Dk Mahoney CBC AUTO DIFFon 05-04-2022 BASO # 0.1 103/ul Normal 0.0-0.1 [facility] Comment on above: Performed By: #### M G, CMP, PHOS #### [facility] [address] [place] [address] Dr. Dk Mahoney Basophils/100 WBC (Bld) 0.7 % Normal 0.2-2.0 [facility] Comment on above: Performed By: #### M G, CMP, PHOS #### [facility] [address] [place] [address] Dr. Dk Mahoney EO # 0.3 103/ul Normal 0.0-0.7 [facility] Comment on above: Performed By: #### M G, CMP, PHOS #### [facility] [address] [place] [address] Dr. Dk Mahoney Eosinophils/100 WBC (Bld) 4.4 % Normal 0.9-7.0 [facility] Comment on above: Performed By: #### M G, CMP, PHOS #### [facility] [address] [place] [address] Dr. Dk Mahoney Erythrocyte distribution width (RBC) [Ratio] 15.4 % Critically high 11.0-15.0 [facility] Comment on above: Performed By: #### M G, CMP, PHOS #### [facility] [address] [place] [address] Dr. Dk Mahoney Hematocrit (Bld) [Volume fraction] 21.6 % Critically low 42.0-54.0 [facility] Comment on above: Performed By: #### M SHIREEN Vidal, PHOS #### [facility] [address] [place] [address] Dr. Dk Mahoney Hemoglobin (Bld) [Mass/Vol] 7.4 g/dL Critically low 14.0-18.0 [facility] Comment on above: Performed By: #### M SHIREEN Vidal, PHOS #### [facility] [address] [place] [address] Dr. Dk Mahoney IG # 0.03 10e3/ul Normal 0.00-0.03 [facility] Comment on above: Performed By: #### M SHIREEN Vidal, PHOS #### [facility] [address] [place] [address] Dr. Dk Mahoney IG % 0.4 % Normal 0.0-0.5 [facility] Comment on above: Performed By: #### M SHIREEN Vidal, PHOS #### [facility] [address] [place] [address] Dr. Dk Mahoney LYMPH # 0.9 103/ul Critically low 1.2-3.8 [facility] Comment on above: Performed By: #### M SHIREEN Vidal, PHOS #### [facility] [address] [place] [address] Dr. Dk Mahoney Lymphocytes/100 WBC (Bld) 13.8 % Critically low 20.5-60.0 [facility] Comment on above: Performed By: #### M Young CMP, PHOS #### [facility] [address] [place] [address] Dr. Dk Mahoney MANUAL DIFF REQ NO Normal [facility] Comment on above: Performed By: #### M Young CMP, PHOS #### [facility] [address] [place] [address] Dr. Dk Mahoney MCH (RBC) [Entitic mass] 28.4 pg Normal 25.9-34.0 [facility] Comment on above: Performed By: #### M Young CMP, PHOS #### [facility] [address] [place] [address] Dr. Dk Mahoney MCHC (RBC) [Mass/Vol] 34.3 g/dL Normal 29.9-35.2 [facility] Comment on above: Performed By: #### M G, CMP, PHOS #### [facility] [address] [place] [address] Dr. Dk Mahoney MCV (RBC) [Entitic vol] 82.8 fL Normal 80.0-94.0 [facility] Comment on above: Performed By: #### M G, CMP, PHOS #### [facility] [address] [place] [address] Dr. Dk Mahoney MONO # 0.6 103/ul Normal 0.3-0.8 [facility] Comment on above: Performed By: #### M G, CMP, PHOS #### [facility] [address] [place] [address] Dr. Dk Mahoney Monocytes/100 WBC (Bld) 8.8 % Normal 1.7-12.0 [facility] Comment on above: Performed By: #### M G, CMP, PHOS #### [facility] [address] [place] [address] Dr. Dk Maohney NEUT # 4.9 103/ul Normal 1.4-6.5 [facility] Comment on above: Performed By: #### M G, CMP, PHOS #### [facility] [address] [place] [address] Dr. Dk Mahoney Neutrophils/100 WBC (Bld) 71.9 % Normal 43.0-75.0 [facility] Comment on above: Performed By: #### M G, CMP, PHOS #### [facility] [address] [place] [address] Dr. Dk Mahoney Platelet mean volume (Bld) [Entitic vol] 9.3 fL Critically low 9.5-13.5 [facility] Comment on above: Performed By: #### M G, CMP, PHOS #### [facility] [address] [place] [address] Dr. Dk Mahoney PLT 178 103/ul Normal 150-450 [facility] Comment on above: Performed By: #### M SHIREEN iVdal, PHOS #### [facility] [address] [address] [address] Dk Mahoney RBC 2.61 106/ul Critically low 4.70-6.10 [facility] Comment on above: Performed By: #### M SHIREEN Vidal, PHOS #### [facility] [address] [address] [address] Dk Mahoney WBC 6.8 103/ul Normal 4.0-11.0 [facility] Comment on above: Performed By: #### M SHIREEN Vidal, PHOS #### [facility] [address] [address] [address] Dk [facility] SARS-CoV-2 (COVID-19) RNA JASON+probe Ql (Unsp spec) Not detected Normal NOT DETECTED [facility] Comment on above: Result Comment: When [...] for this test is supported by the [place] of Health and Human Service's declaration that [...] used). Performed By: #### P OCGLUC #### [facility] [address] [address] [address] Dk Mahoney PROF CHEM 8 (BAS METB)on Anion gap [Moles/Vol] 14.7 mmol/L Normal [facility] Comment on above: Performed By: #### M G, CMP, PHOS #### [facility] [address] [address] [address] Dk Mahoney Calcium [Mass/Vol] 9.3 mg/dL Normal 8.5-10.1 [facility] Comment on above: Performed By: #### M G, CMP, PHOS #### [facility] [address] [address] [address] Dk Mahoney Chloride [Moles/Vol] 109 mmol/L Critically high 98-107 [facility] Comment on above: Performed By: #### M G, CMP, PHOS #### [facility] Laboratory [address] [place] [address] Dr. Dk Mahoney CO2 [Moles/Vol] 21.3 mmol/L Normal 21.0-32.0 [facility] Comment on above: Performed By: #### M Young, CMP, PHOS #### [facility] [address] [place] [address] Dr. Dk Mahoney Creatinine [Mass/Vol] 4.61 mg/dL Critically high 0.70-1.30 [facility] Comment on above: Performed By: #### M Young, CMP, PHOS #### [facility] [address] [place] [address] Dr. Dk Mahoney EGFR-AF WELSH 15 mL/min/1.73m2 Critically low >=60 [facility] Comment on above: Performed By: #### M G, CMP, PHOS #### [facility] [address] [place] [address] Dr. Dk Mahoney EGFR-NON AF WELSH 13 mL/min/1.73m2 Critically low >=60 [facility] Comment on above: Performed By: #### M G, CMP, PHOS #### [facility] [address] [place] [address] Dr. Dk Mahoney Glucose [Mass/Vol] 200 mg/dL Critically high 74-106 [facility] Comment on above: Performed By: #### M G, CMP, PHOS #### [facility] [address] [address] [address] Dk Mahoney Potassium [Moles/Vol] 5.0 mmol/L Normal 3.5-5.1 [facility] Comment on above: Performed By: #### M G, CMP, PHOS #### [facility] [address] [address] [address] Dk Mahoney Sodium [Moles/Vol] 140 mmol/L Normal 136-145 [facility] Comment on above: Performed By: #### M G, CMP, PHOS #### [facility] [address] [address] [address] Dk Mahoney Urea nitrogen [Mass/Vol] 64.0 mg/dL Critically high 7.0-18.0 [facility] Comment on above: Performed By: #### M Young, CMP, PHOS #### [facility] [address] [address] [address] Dk Mahoney Urea nitrogen/Creatinine [Mass ratio] 13.9 mg/mg Normal [facility] Comment on above: Performed By: #### M Young, CMP, PHOS #### [facility] [address] [address] [address] Dk Mahoney TROPONIN, HIGH SENSITIVITYon 05-04-2022 HSTROP 29.4 pg/mL Normal 4.0-76.1 [facility] Comment on above: Result Comment: CUT- OFF POINTS HAVE BEEN ESTABLISHED BASED ON THE FOURTH UNIVERSAL DEFINITIONS OF MYOCARDIAL INFARCTION. THE UPPER REFERENCE LIMIT (URL) OF TROPONIN, DEFINED THE 99TH PERCENTILE OF cTnI DISTRIBUTION IN A REFERENCE POPULATION, HAS BEEN CONFIRMED THE DECISION THRESHOLD FOR CO DIAGNOSIS. Performed By: #### M G, CMP, PHOS #### [facility] [address] [address] [address] Dk Mahoney TYPE AND SCREENon 05-04-2022 TYPE AND SCREEN Negative Normal [facility] Comment on above: Performed By: #### A NOE, TNS #### [facility] [address] [address] [address] Dk Mahoney US ROWAN DOP LEG [...] by: ROBERTO HEBERT Date: 2022-05-04 14:33 Normal [facility] PRBC LEUKOREDUCEDon 04-29-19 23 PRBC LEUKOREDUCED Cross Match Result Compatible Unit Blood Type O Neg Unit Number [id number] Status Information Transfused Product ID Red Blood Cells Product Code [id number] Normal [facility] Comment on above: Performed By: #### P RBC #### [facility] [address] [place] [address] Dr. Dk Mahoney ABO RH RETYPEon 04-19-2022 ABO and Rh group Nom (Bld) DONE Normal [facility] Comment on above: Performed By: #### M G, CMP, PHOS #### [facility] [address] [place] [address] Dr. Dk Mahoney CBC AUTO DIFFon 04-19-2022 BASO # 0.1 103/ul Normal 0.0-0.1 [facility] Comment on above: Performed By: #### M G, CMP, PHOS #### [facility] [address] [place] [address] Dr. Dk Mahoney Basophils/100 WBC (Bld) 0.8 % Normal 0.2-2.0 [facility] Comment on above: Performed By: #### M G, CMP, PHOS #### [facility] [address] [place] [address] Dr. Dk Mahoney EO # 0.5 103/ul Normal 0.0-0.7 [facility] Comment on above: Performed By: #### M G, CMP, PHOS #### [facility] [address] [place] [address] Dr. Dk Mahoney Eosinophils/100 WBC (Bld) 6.9 % Normal 0.9-7.0 [facility] Comment on above: Performed By: #### M SHIREEN Vidal, PHOS #### [facility] [address] [place] [address] Dr. Dk Mahoney Erythrocyte distribution width (RBC) [Ratio] 16.3 % Critically high 11.0-15.0 [facility] Comment on above: Performed By: #### M SHIREEN Vidal, PHOS #### [facility] [address] [place] [address] Dr. Dk Mahoney Hematocrit (Bld) [Volume fraction] 20.8 % Critically low 42.0-54.0 [facility] Comment on above: Performed By: #### Rosmery Vidal CMP, PHOS #### [facility] [address] [place] [address] Dr. Dk Mahoney Hemoglobin (Bld) [Mass/Vol] 6.8 g/dL Critically low 14.0-18.0 [facility] Comment on above: Performed By: #### Rosmery Vidal CMP, PHOS #### [facility] [address] [place] [address] Dr. Dk Mahoney IG # 0.04 10e3/ul Critically high 0.00-0.03 [facility] Comment on above: Performed By: #### M SHIREEN Vidal, PHOS #### [facility] [address] [place] [address] Dr. Dk Mahoney IG % 0.6 % Critically high 0.0-0.5 [facility] Comment on above: Performed By: #### M Young CMP, PHOS #### [facility] [address] [place] [address] Dr. Dk Mahoney LYMPH # 1.0 103/ul Critically low 1.2-3.8 [facility] Comment on above: Performed By: #### M Young CMP, PHOS #### [facility] [address] [place] [address] Dr. Dk Mahoney Lymphocytes/100 WBC (Bld) 14.1 % Critically low 20.5-60.0 [facility] Comment on above: Performed By: #### M G, CMP, PHOS #### [facility] [address] [place] [address] Dr. Dk Mahoney MANUAL DIFF REQ NO Normal [facility] Comment on above: Performed By: #### M G, CMP, PHOS #### [facility] [address] [place] [address] Dr. Dk Mahoney MCH (RBC) [Entitic mass] 29.3 pg Normal 25.9-34.0 [facility] Comment on above: Performed By: #### M G, CMP, PHOS #### [facility] [address] [place] [address] Dr. Dk Mahoney MCHC (RBC) [Mass/Vol] 32.7 g/dL Normal 29.9-35.2 [facility] Comment on above: Performed By: #### M G, CMP, PHOS #### [facility] [address] [place] [address] Dr. Dk Mahoney MCV (RBC) [Entitic vol] 89.7 fL Normal 80.0-94.0 [facility] Comment on above: Performed By: #### M G, CMP, PHOS #### [facility] [address] [place] [address] Dr. Dk Mahoney MONO # 0.7 103/ul Normal 0.3-0.8 [facility] Comment on above: Performed By: #### M G, CMP, PHOS #### [facility] [address] [place] [address] Dr. Dk Mahoney Monocytes/100 WBC (Bld) 10.1 % Normal 1.7-12.0 [facility] Comment on above: Performed By: #### M G, CMP, PHOS #### [facility] [address] [place] [address] Dr. Dk Mahoney NEUT # 4.9 103/ul Normal 1.4-6.5 [facility] Comment on above: Performed By: #### M G, CMP, PHOS #### [facility] [address] [place] [address] Dr. Dk Mahoney Neutrophils/100 WBC (Bld) 67.5 % Normal 43.0-75.0 [facility] Comment on above: Performed By: #### M SHIREEN Vidal, PHOS #### [facility] [address] [place] [address] Dr. Dk Mahoney Platelet mean volume (Bld) [Entitic vol] 9.5 fL Normal 9.5-13.5 [facility] Comment on above: Performed By: #### Rosmery Vidal CMP, PHOS #### [facility] [address] [address] [address] Dk Mahoney PLT 212 103/ul Normal 150-450 [facility] Comment on above: Performed By: #### Rosmery Vidal CMP, PHOS #### [facility] [address] [place] [address] Dr. Dk Mahoney RBC 2.32 106/ul Critically low 4.70-6.10 [facility] Comment on above: Performed By: #### Rosmery Vidal CMP, PHOS #### [facility] [address] [place] [address] Dr. Dk Mahoney WBC 7.2 103/ul Normal 4.0-11.0 [facility] Comment on above: Performed By: #### Rosmery Vidal CMP, PHOS #### [facility] [address] [place] [address] Dr. Dk Mahoney [facility]on SARS-CoV-2 (COVID-19) RNA JASON+probe Ql (Unsp spec) Not detected Normal NOT DETECTED [facility] Comment on above: Result Comment: When [...] for this test is supported by the [employer] of Health and Human Service's declaration that [...] By: #### Rosmery Vidal CMP, PHOS #### [facility] [address] [place] [address] Dr. Dk Mahoney PROF 14(COMP METB)on 023 Albumin [Mass/Vol] 2.4 g/dL Critically low 3.4-5.0 [facility] Comment on above: Performed By: #### Rosmery Vidal CMP, PHOS #### [facility] [address] [place] [address] Dr. Dk Mahoney Albumin/Globulin [Mass ratio] 0.6 {ratio} Normal [facility] Comment on above: Performed By: #### Rosmery Vidal CMP, PHOS #### [facility] [address] [place] [address] Dr. Dk Mahoney ALP [Catalytic activity/Vol] 142 U/L Critically high 46-116 [facility] Comment on above: Performed By: #### Rosmery Vidal CMP, PHOS #### [facility] [address] [place] [address] Dr. Dk Mahoney ALT [Catalytic activity/Vol] 26 U/L Normal 16-63 [facility] Comment on above: Performed By: #### Rosmery Vidal CMP, PHOS #### [facility] [address] [place] [address] Dr. Dk Mahoney Anion gap [Moles/Vol] 12.0 mmol/L Normal [facility] Comment on above: Performed By: #### Rosmery Vidal CMP, PHOS #### [facility] [address] [place] [address] Dr. Dk Mahoney AST [Catalytic activity/Vol] 19 U/L Normal 15-37 [facility] Comment on above: Performed By: #### Rosmery Vidal CMP, PHOS #### [facility] [address] [place] [address] Dr. Dk Mahoney Bilirubin [Mass/Vol] 0.3 mg/dL Normal 0.2-1.0 [facility] Comment on above: Performed By: #### M G, CMP, PHOS #### [facility] [address] [address] [address] Dk Mahoney Calcium [Mass/Vol] 9.3 mg/dL Normal 8.5-10.1 [facility] Comment on above: Performed By: #### M G, CMP, PHOS #### [facility] [address] [address] [address] Dk Mahoney Chloride [Moles/Vol] 109 mmol/L Critically high 98-107 [facility] Comment on above: Performed By: #### M G, CMP, PHOS #### [facility] [address] [place] [address] Dr. Dk Mahoney CO2 [Moles/Vol] 25.0 mmol/L Normal 21.0-32.0 [facility] Comment on above: Performed By: #### M G, CMP, PHOS #### [facility] [address] [address] [address] Dk Mahoney Creatinine [Mass/Vol] 4.83 mg/dL Critically high 0.70-1.30 [facility] Comment on above: Performed By: #### M G, CMP, PHOS #### [facility] [address] [address] [address] Dk Mahoney EGFR-AF WELSH 15 mL/min/1.73m2 Critically low >=60 [facility] Comment on above: Performed By: #### M G, CMP, PHOS #### [facility] [address] [address] [address] Dk Mahoney EGFR-NON AF WELSH 12 mL/min/1.73m2 Critically low >=60 [facility] Comment on above: Performed By: #### M G, CMP, PHOS #### [facility] [address] [address] [address] Dk Mahoney Globulin (S) [Mass/Vol] 4.1 g/dL Normal [facility] Comment on above: Performed By: #### M G, CMP, PHOS #### [facility] [address] [address] [address] Dk Mahoney Glucose [Mass/Vol] 128 mg/dL Critically high 74-106 [facility] Comment on above: Performed By: #### M G, CMP, PHOS #### [facility] [address] [address] [address] Dk Mahoney Potassium [Moles/Vol] 5.0 mmol/L Normal 3.5-5.1 [facility] Comment on above: Performed By: #### M G, CMP, PHOS #### [facility] [address] [address] [address] Dk Mahoney Protein [Mass/Vol] 6.5 g/dL Normal 6.4-8.2 [facility] Comment on above: Performed By: #### M G, CMP, PHOS #### [facility] [address] [address] [address] Dk Mahoney Sodium [Moles/Vol] 141 mmol/L Normal 136-145 [facility] Comment on above: Performed By: #### M G, CMP, PHOS #### [facility] [address] [place] [address] Dr. Dk Mahoney Urea nitrogen [Mass/Vol] 62.0 mg/dL Critically high 7.0-18.0 [facility] Comment on above: Performed By: #### M G, CMP, PHOS #### [facility] [address] [address] [address] Dk Mahoney Urea nitrogen/Creatinine [Mass ratio] 12.8 mg/mg Normal [facility] Comment on above: Performed By: #### M G, CMP, PHOS #### [facility] [address] [place] [address] Dr. Dk Mahoney PROTIMEon 04-19-2022 INR Coag (PPP) [Relative time] 1.01 {INR} Normal [facility] Comment on above: Performed By: #### P OCGLUC #### [facility] [address] [place] [address] Dr. Dk Mahoney INR GUIDELINES SEE BELOW Normal [facility] Comment on above: Result Comment: JOSELO RED INR: 2.0 - 3.0 CONDITIONS NOT LISTED BELOW 2.5 - 3.5 FOR PROSTHETIC HEART VALVE REPLACEMENT 2.5 - 3.5 RECURRENT THROMBOSIS Performed By: #### P OCGLUC #### [facility] [address] [place] [address] Dr. Dk Mahoney PT Coag (PPP) [Time] 10.9 s Normal 9.0-11.6 [facility] Comment on above: Performed By: #### P OCGLUC #### [facility] [address] [place] [address] Dr. Dk Mahoney PTTon 04-19-2022 aPTT Coag (Bld) [Time] 25.8 s Normal 22.3-36.2 [facility] Comment on above: Performed By: #### P OCGLUC #### [facility] [address] [place] [address] Dr. Dk Mahoney TYPE AND SCREENon 04-19-2022 TYPE AND SCREEN Negative Normal [facility] Comment on above: Performed By: #### P OCGLUC #### [facility] [address] [place] [address] Dr. Dk Mahoney CBC AUTO DIFFon 10-24-2021 BASO # 0.1 103/ul Normal 0.0-0.1 [facility] Comment on above: Performed By: #### C BC #### [facility] [address] [place] [address] Dr. Dk Mahoney Basophils/100 WBC (Bld) 0.7 % Normal 0.2-2.0 [facility] Comment on above: Performed By: #### C BC #### [facility] [address] [place] [address] Dr. Dk Mahoney EO # 0.6 103/ul Normal 0.0-0.7 [facility] Comment on above: Performed By: #### C BC #### [facility] [address] [place] [address] Dr. Dk Mahoney Eosinophils/100 WBC (Bld) 7.7 % Critically high 0.9-7.0 [facility] Comment on above: Performed By: #### C BC #### [facility] [address] [place] [address] Dr. Dk Mahoney Erythrocyte distribution width (RBC) [Ratio] 17.2 % Critically high 11.0-15.0 [facility] Comment on above: Performed By: #### C BC #### [facility] [address] [place] [address] Dr. Dk Mahoney Hematocrit (Bld) [Volume fraction] 26.1 % Critically low 42.0-54.0 [facility] Comment on above: Performed By: #### C BC #### [facility] [address] [place] [address] Dr. Dk Mahoney Hemoglobin (Bld) [Mass/Vol] 8.1 g/dL Critically low 14.0-18.0 [facility] Comment on above: Performed By: #### C BC #### [facility] [address] [place] [address] Dr. Dk Mahoney IG # 0.06 10e3/ul Critically high 0.00-0.03 [facility] Comment on above: Performed By: #### C BC #### [facility] [address] [place] [address] Dr. Dk Mahoney IG % 0.8 % Critically high 0.0-0.5 [facility] Comment on above: Performed By: #### C BC #### [facility] [address] [place] [address] Dr. Dk Mahoney LYMPH # 1.4 103/ul Normal 1.2-3.8 [facility] Comment on above: Performed By: #### C BC #### [facility] [address] [place] [address] Dr. Dk Mahoney Lymphocytes/100 WBC (Bld) 18.1 % Critically low 20.5-60.0 [facility] Comment on above: Performed By: #### C BC #### [facility] [address] [place] [address] Dr. Dk Mahoney MANUAL DIFF REQ NO Normal [facility] Comment on above: Performed By: #### C BC #### [facility] [address] [place] [address] Dr. Dk Mahoney MCH (RBC) [Entitic mass] 25.6 pg Critically low 25.9-34.0 [facility] Comment on above: Performed By: #### C BC #### [facility] [address] [place] [address] Dr. Dk Mahoney MCHC (RBC) [Mass/Vol] 31.0 g/dL Normal 29.9-35.2 [facility] Comment on above: Performed By: #### C BC #### [facility] [address] [place] [address] Dr. Dk Mahoney MCV (RBC) [Entitic vol] 82.3 fL Normal 80.0-94.0 [facility] Comment on above: Performed By: #### C BC #### [facility] [address] [place] [address] Dr. Dk Mahoney MONO # 0.9 103/ul Critically high 0.3-0.8 [facility] Comment on above: Performed By: #### C BC #### [facility] [address] [place] [address] Dr. Dk Mahoney Monocytes/100 WBC (Bld) 12.4 % Critically high 1.7-12.0 [facility] Comment on above: Performed By: #### C BC #### [facility] [address] [place] [address] Dr. Dk Mahoney NEUT # 4.6 103/ul Normal 1.4-6.5 [facility] Comment on above: Performed By: #### C BC #### [facility] [address] [place] [address] Dr. Dk Mahoney Neutrophils/100 WBC (Bld) 60.3 % Normal 43.0-75.0 [facility] Comment on above: Performed By: #### C BC #### [facility] [address] [place] [address] Dr. Dk Mahoney Platelet mean volume (Bld) [Entitic vol] 9.5 fL Normal 9.5-13.5 [facility] Comment on above: Performed By: #### C BC #### [facility] [address] [address] [address] Dk Mahoney PLT 201 103/ul Normal 150-450 [facility] Comment on above: Performed By: #### C BC #### [facility] [address] [address] [address] Dk Mahoney RBC 3.17 106/ul Critically low 4.70-6.10 [facility] Comment on above: Performed By: #### C BC #### [facility] [address] [address] [address] Dk Mahoney WBC 7.5 103/ul Normal 4.0-11.0 [facility] Comment on above: Performed By: #### C BC #### [facility] [address] [place] [address] Dr. Dk Mahoney PROF CHEM 8 (BAS METB)on Anion gap [Moles/Vol] 12.3 mmol/L Normal [facility] Comment on above: Performed By: #### M Young, CMP, PHOS #### [facility] [address] [place] [address] Dr. Dk Mahoney Calcium [Mass/Vol] 9.6 mg/dL Normal 8.5-10.1 [facility] Comment on above: Performed By: #### M G, CMP, PHOS #### [facility] [address] [place] [address] Dr. Dk Mahoney Chloride [Moles/Vol] 107 mmol/L Normal 98-107 [facility] Comment on above: Performed By: #### M G, CMP, PHOS #### [facility] [address] [place] [address] Dr. Dk Mahoney CO2 [Moles/Vol] 26.5 mmol/L Normal 21.0-32.0 [facility] Comment on above: Performed By: #### M G, CMP, PHOS #### [facility] [address] [place] [address] Dr. Dk Mahoney Creatinine [Mass/Vol] 3.76 mg/dL Critically high 0.70-1.30 [facility] Comment on above: Performed By: #### M Young, CMP, PHOS #### [facility] [address] [address] [address] Dk Mahoney EGFR-AF WELSH 19 mL/min/1.73m2 Critically low >=60 [facility] Comment on above: Performed By: #### M G, CMP, PHOS #### [facility] [address] [address] [address] Dk Mahoney EGFR-NON AF WELSH 16 mL/min/1.73m2 Critically low >=60 [facility] Comment on above: Performed By: #### M Young, CMP, PHOS #### [facility] [address] [address] [address] Dk Mahoney Glucose [Mass/Vol] 143 mg/dL Critically high 74-106 [facility] Comment on above: Performed By: #### M Young, CMP, PHOS #### [facility] [address] [address] [address] Dk Mahoney Potassium [Moles/Vol] 4.8 mmol/L Normal 3.5-5.1 [facility] Comment on above: Performed By: #### M Young, CMP, PHOS #### [facility] [address] [address] [address] Dk Mahoney Sodium [Moles/Vol] 141 mmol/L Normal 136-145 [facility] Comment on above: Performed By: #### M G, CMP, PHOS #### [facility] [address] [address] [address] Dk Mahoney Urea nitrogen [Mass/Vol] 47.0 mg/dL Critically high 7.0-18.0 [facility] Comment on above: Performed By: #### M G, CMP, PHOS #### [facility] [address] [address] [address] Dk Mahoney Urea nitrogen/Creatinine [Mass ratio] 12.5 mg/mg Normal [facility] Comment on above: Performed By: #### M SHIREEN Vidal PHOS #### [facility] [address] [address] [address] Dk Mahoney US ROWAN DOP LEG [...] MARQUES AMAYA Date: 2021-10-24 18:07 Normal [facility] Office Visit (Urology)on Follow-up visit Diagnoses/Problems [...] d By: Riana Pro on 08-29-2020 - [employer] Work Phone: Amorphous, UA NOT REPORTED None [employer] Work Phone: Bacteria, UA 2+ Abnormal None [facility] Work Phone: Casts UA NOT REPORTED /LPF [facility] Work Phone: Crystals, UA NOT REPORTED None /[employer] [facility] Work Phone: Epithelial Cells UA 2 TO 5 [employer] Work Phone: Interpretation and review of laboratory results Abnormal [facility] Work Phone: Mucus, UA NOT REPORTED None [facility] Work Phone: Other Observations UA NOT REPORTED NOT REQ. [employer] Work Phone: RBC, UA 50 TO 100 [employer] Work Phone: Renal Epithelial, UA NOT REPORTED 0 /HPF Me [facility] Work Phone: Trichomonas, UA NOT REPORTED None [employer] [facility] Work Phone: WBC, UA GREATER THAN 100 [facility] Work Phone: Yeast, UA NOT REPORTED None [employer] Work Phone: [employer] Work Phone: Urinalysis Reflex to Culture Ordered By: Riana Pro on 08-29-2020 Bilirubin Urine Negative NEGATIVE [facility] Work Phone: Color, UA YELLOW YELLOW [employer] Work Phone: Glucose, Ur Negative NEGATIVE [employer] Work Phone: Interpretation and review of laboratory results Abnormal [employer] Work Phone: Ketones Ql (U) Negative NEGATIVE [employer] Work Phone: Leukocyte esterase Test strip Ql (U) LARGE Abnormal NEGATIVE [facility] [employer] Phone: Nitrite, Urine Positive Abnormal NEGATIVE [employer] Work Phone: pH, UA 7.5 [facility] [employer] Work Phone: Protein, UA 1+ Abnormal NEGATIVE [employer] Work Phone: Specific [place], UA 1.010 [employer] Work Phone: Turbidity UA CLEAR CLEAR [employer] Work Phone: Urinalysis Comments NOT REPORTED [facility] [employer] Work Phone: Urine Hgb 3+ Abnormal NEGATIVE [facility] Work Phone: Urobilinogen, Urine Normal Normal [facility] Work Phone: [facility] Work Phone: Microscopic Urinalysison Amorphous, UA NOT REPORTED None [facility] [place], [place] Bacteria, UA 2+ Abnormal None [facility] [place], [place] Casts UA NOT REPORTED /LPF [facility] [employer] [place] Crystals, UA NOT REPORTED None /HPF [facility] [employer] [place] Epithelial Cells UA 2 TO 5 [facility] [employer] Interpretation and review of laboratory results Abnormal [place], [place] Mucus, UA NOT REPORTED None [place], [place] Other Observations UA NOT REPORTED NOT REQ. M [place], [place] RBC (U) [#/Vol] 20 TO 50 [place], [place] Renal Epithelial, UA NOT REPORTED 0 /HPF Me [place], [place] Trichomonas, UA NOT REPORTED None [place] WBC, UA GREATER THAN 100 [place], [place] Yeast, UA NOT REPORTED None [place] - [place] Urinalysison 02-03-2020 Bilirubin Urine Negative NEGATIVE [place] Color, UA YELLOW YELLOW [place] Glucose, Ur Negative NEGATIVE [place] Interpretation and review of laboratory results Abnormal [place] Ketones Ql (U) Negative NEGATIVE [place] Leukocyte esterase Test strip Ql (U) LARGE Abnormal NEGATIVE [place] Nitrite, Urine Positive Abnormal NEGATIVE [place] pH, UA 8.0 [place] Protein (U) [Mass/Vol] TRACE Abnormal NEGATIVE [place] Specific [place], UA 1.015 [place], [place] Turbidity UA SLIGHTLY CLOUDY Abnormal CLEAR [place] Urinalysis Comments NOT REPORTED [place] Urine Hgb 3+ Abnormal NEGATIVE [place] Urobilinogen, Urine Normal Normal [place] Vital Signs Date Time Vital Sign Value Performing Clinician Facility 10-08-2022 12:20-0400 Body height 180.34 cm Devaughn Lucio Other [employer] [facility] [employer] Other 10-08-2022 12:20-0400 Body temperature 96.6 [degF] Devaughn Aviladir Other [facility] Other 10-08-2022 12:20-0400 Diastolic blood pressure 60 mm[Hg] Devaughn Lucio Other [facility] Other 10-08-2022 12:20-0400 Respiratory rate 18 /min Devaughn Khadijah Other [facility] Other 10-08-2022 12:20-0400 SaO2% (BldA) [Mass fraction] 100 % Devaughn Khadijah Other [facility] Other 10-08-2022 12:20-0400 Systolic blood pressure 121 mm[Hg] Devaughn Khadijah Other [facility] Other 10-01-2022 13:30-0400 Body height 180.34 cm Erik Sanderson Other [facility] Other 10-01-2022 13:30-0400 Body mass index (BMI) [Ratio] 42.12 kg/m2 Erik Shepherdrer Other [facility] Other 10-01-2022 13:30-0400 Body temperature 97.2 [degF] Erik Shepherdrer Other [facility] Other 10-01-2022 13:30-0400 Body weight 136.99 kg Erik Shepherdrer Other [facility] Other 10-01-2022 13:30-0400 Diastolic blood pressure 68 mm[Hg] Erik Ariasehrer Other [facility] Other 10-01-2022 13:30-0400 SaO2% (BldA) [Mass fraction] 97 % Erik Ariasehrer Other [facility] Other 10-01-2022 13:30-0400 Systolic blood pressure 138 mm[Hg] Erik Sanderson Other [facility] Other Encounters Encounter Date Encounter Type Care Provider Facility Start: 01-17-2023 End: 01-18-2023 ambulatory [facility] Start: 10-21-2022 End: 10-21-2022 ambulatory Devaughn Khadijah Other [facility] Other Start: 10-21-2022 Telephone encounter Devaughn Khadijah [facility] Start: 10-18-2022 End: 10-18-2022 ambulatory Devaughn Khadijah Other [facility] Other Start: 10-18-2022 Telephone encounter Devaughn Khadijah [facility] Start: 10-08-2022 End: 10-08-2022 ambulatory Devaughn Khadijah Other [facility] Other Start: 10-08-2022 Office outpatient visit 15 minutes Devaughn Khadijah [facility] Start: 10-01-2022 End: 10-01-2022 ambulatory Erik Sanderson Other [facility] Other Start: 10-01-2022 Office outpatient visit 25 minutes Erik Sanderson [facility] Start: 08-31-2022 End: 09-01-2022 ambulatory ЕЛЕНА SAMSON Facility:[id number] Start: 08-30-2022 End: 09-04-2022 Evaluation and management of inpatient Eldon López Facility:[facility] Start: 07-05-2022 End: 07-07-[address] ERIK RHODES . Facility:[facility] Start: 05-04-2022 End: 05-04-2022 ambulatory ROBERTO HEBERT Facility:[facility] Start: 04-19-2022 End: 04-19-[address] ERIK RHODES . Facility:[facility] Start: 03-14-2022 End: 12-01-[address] NONE LISTED REQUEST Facility: Start: 10-24-2021 End: 10-24-2021 ambulatory PA FUAD KEVIN . Facility: Start: 08-29-2020 End: 08-29-2020 [facility] Start: 02-03-2020 End: 02-03-2020 Subsequent hospital visit by physician [facility] Procedures Date Procedure Procedure Detail Performing Clinician Start: 08-31-2022 Antibody screen Eldon López Comment on above: Order Comment: NEEDS DRAWN Result Comment: PERF ORMED BY: [facility] [address] [place] [address] PATHOLOGIST SPECIAL PROCEDURE TECH BRANDEN WHATLEY M.D. Start: 08-29-2020 Urinalysis microscop [...] Influenza vaccination Flu vacc ine (Season Ended) [facility] Work Phone: Start: 04-30-2020 Creatinine measurement Creatinine mo nitoring [place] Start: 04-30-2020 Potassium monitoring Potassium monit oring [place] Start: 12-14-2019 Influenza vaccination Flu vaccine (# 1) [place] Start: 02-08-2019 Annual Wellness Visi t (AWV) Annual Wellness Visit (AWV) [place] Start: 09-11-2015 Pneumococcal 65+ yea rs Vaccine (1 of 1 - PPSV23) Pneumococcal 65+ years Vaccine (1 of 1 - PPSV23) [place] Start: 2000 Screening for malign ant neoplasm of colon Colon cancer screen colonoscopy [place] Start: 2000 Shingles Vaccine (1 of 2) Ordoñez gles Vaccine (1 of 2) [place] Start: 1969 DTaP/Tdap/Td vaccine (1 - Tdap) DTaP/Tdap/Td vaccine (1 - Tdap) [place] Start: 1962 COVID-19 Vaccine (1) COVID-19 Vaccin e (1) [facility] Phone: Start: 1960 Lipid panel Lipid screen [place], [place] Start: 1950 Hepatitis C screening Hepatitis C sc reen [place] End: 02-03-2020 Culture, Urine Culture, Urine Microbiology Routine Once for 1 Occurrences starting 02/03/2020 until 02/03/2020 [place] Comment on above: Once for 1 Occurrenc es starting 02/03/2020 until 02/03/2020 Culture, Urine [place] End: 08-29-2020 Culture, Urine Culture, Urine Microbiology Routine Once for 1 Occurrences starting 08/29/2020 until 08/29/2020 [facility] [employer] Phone: Comment on above: Once for 1 Occurrenc es starting 08/29/2020 until 08/29/2020 Payers Date Payer Category Payer Self-pay 2022 Unknown [id number] 2022 Medicare [id number] 2020 Medicare [id number] 2019 Medicare [id number] 2019 Unknown [id number] 2014 Medicare [employer] MEDICARE [facility] [id number] 2014-Present [address] [address] [place] [address] [id number] 1950 Unknown [id number] 1950 Unknown [id number] 1950 Unknown [id number] 1950 Unknown [id number] 1950 Unknown [id number] 1950 Unknown [id number] 1950 Unknown [id number] Medicare [id number] Unknown [id number] Social History Date Type Detail Facility Start: 02-05-2019 Tobacco smoking status NHIS Unknown if ever smoked [facility] [place] Start: 1950 Sex Assigned At Not on file [facility] [place] Sex Assigned At Sex Assigned At [facility] Other Evaluation note 10-08-2022 Note Date & Type Note Facility 10-08-2022 Evaluation note Encounter Date Diagnosis Assessment Notes Sep, CKD (chronic kidney disease) stage 4, GFR 15-29 ml/min (ICD-10 - N18.4) He has a CKD due to the longstanding hypertension and recurrent SHAWN due to the obstructive uropathy. He recently required hemodialysis due to the obstructive uropathy. He was monitored by the [place] and catheter was removed as his renal function was improving as per the patient. Patient currently bedbound and can not be transferred out of the stretcher at our office. He does not want to follow-up in our office. Advised him to continue follow with the PCP and the [facility] for CKD and renal function monitoring Patient's recent lab from the [place] are not available. 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 He appears to be euvolemic. Continue current medications. Sep, Secondary hyperparathyroidism (ICD-10 - N25.81) Continue sevelamer and vitamin D as prescribed by [place] physician. Continue to follow with the [place] [facility]. Sep, Anemia of renal disease (ICD-10 - D63.1) Continue oral iron. Sep, Nephrolithiasis (ICD-10 - N20.0) Continue follow up with urology. [facility] Other Evaluation note 10-01-2022 Note Date & [...] this well and a dressing was applied. [facility] Other Evaluation note Note Date & Type Note Facility Evaluation note No Information [employer] Other History general Narrative - Reported Note [...] ABOVE Hospitalization History [facility] 09/11/19 [facility] Other Advance Directives No Advanced Directives Records FoundDocuments on File Type Date Recorded Patient Activity Leader Expl anation ACP-Advance Directive ACP-Power of Equipment Installation Professional Summary Purpose Family History No Family History [...] DATE CREATED AUTHOR AUTHOR'S ORGANIZ ATION 09/22/2022 [facility] DATE CREATED AUTHOR AUTHOR'S ORGANIZ ATION 10/29/2022 [facility] DATE CREATED AUTHOR AUTHOR'S ORGANIZ ATION 01/20/2023 [facility] REASON FOR VISIT (unrecogniz ed [...] BE BASED ON THE PRIMARY CLINICAL RECORDS. [employer] [facility]. provides no warranty or guarantee of the accuracy or completeness of information in this document.
[2023-08-17 16:30] LABS: Glucometer 117 mg/dL (74-106)
[2023-08-17 20:36] LABS: Hematocrit 31.3 % (42.0-54.0); Hemoglobin 9.8 g/dL (14.0-18.0)
[2023-08-17 20:52] LABS: Glucometer 129 mg/dL (74-106)
--- NOTE | 2023-08-17 21:00 | RESP.RT ---
Patient denies need at this time
[2023-08-17] MEDS: TRAZODONE HCL 50 MG TABLET 100 MG PO (21:10)
[2023-08-17] MEDS: ATORVASTATIN CALCIUM 40 MG TABLET 80 MG PO (21:11)
[2023-08-18] VITALS: BP 148/74; PULSE 79; TEMP 36.6; O2SAT 96
[2023-08-18 04:00] VITALS: BP 165/80; PULSE 80; TEMP 36.7; O2SAT 95
[2023-08-18] MEDS: LEVOTHYROXINE SODIUM 75 MCG TABLET PO (05:26)
[2023-08-18 06:25] LABS: Basophils Absolute Auto 0.1 10^3/uL (0.0-0.1); Basophils Percent Auto 0.9 % (0.2-2.0); Eosinophils Absolute Auto 0.4 10^3/uL (0.0-0.7); Eosinophils Percent Auto 4.6 % (0.9-7.0); Hematocrit 30.6 % (42.0-54.0); Hemoglobin 9.6 g/dL (14.0-18.0); Immature Granulocytes Abs Auto 0.05 10^3/uL (0.00-0.03); Immature Granulocytes Pct Auto 0.6 % (0.0-0.5); Lymphocytes Percent Auto 12.5 % (20.5-60.0); Mean Corpuscular HGB Conc 31.4 g/dL (29.9-35.2); Mean Corpuscular Volume 92.4 fL (80.0-94.0); Mean Platelet Volume 9.8 fL (9.5-13.5); Monocytes Absolute Auto 0.8 10^3/uL (0.3-0.8); Monocytes Percent Auto 10.3 % (1.7-12.0); Neutrophils Absolute Auto 5.5 10^3/uL (1.4-6.5); Neutrophils Percent Auto 71.1 % (43.0-75.0); Platelet Count 135 10^3/uL (150-450); Red Blood Count 3.31 10^6/uL (4.70-6.10); Red Cell Distribution Width 14.6 % (11.0-15.0); White Blood Count 7.8 10^3/uL (4.0-11.0)
[2023-08-18 06:37] LABS: Alanine Aminotransferase 32 U/L (16-63); Albumin Globulin Ratio 0.7; Albumin Level 2.5 g/dL (3.4-5.0); Alkaline Phosphatase 114 U/L (46-116); Anion Gap 17.3; Aspartate Amino Transferase 14 U/L (15-37); Bilirubin Total 0.4 mg/dL (0.2-1.0); Carbon Dioxide 19.6 mmol/L (21.0-32.0); Chloride 107 mmol/L (98-107); Estimated GFR (African America 12 (>=60); Estimated GFR (Non-African Ame 10 (>=60); Globulin 3.8 g/dL; Glucose 130 mg/dL (74-106); Potassium 4.9 mmol/L (3.5-5.1); Sodium 139 mmol/L (136-145); Total Protein 6.3 g/dL (6.4-8.2)
[2023-08-18 07:34] VITALS: BP 152/80; PULSE 80; TEMP 36.6; O2SAT 95
--- NOTE | 2023-08-18 08:42 | CM.NOTE ---
Spoke with pt regarding insurance, pt would like everything to be sent through [facility]. Pt also voices he would like to have all of his medical records. Pt states he has contacted the hospital on 3 different occasions for his records without success. Called Medical records and Dipti will come up and speak with pt regarding accessing Medical records or receiving copies.
--- NOTE | 2023-08-18 10:12 | CM.NOTE ---
Rounds made with Dr. Morris, pt will discharge to home today. Discussed discharge planning, pt has around the clock care givers at home [facility] by [facility]. Pt is also active with Kim BRAY, denies any discharge needs at this time. Pt does not ambulate, he has Mckenzie lift at home. Pt verbalizes having all DME's that are needed to assist in his care.
--- NOTE | 2023-08-18 10:18 | SWNOTE1 ---
Pt is at home and he has Kim BRAY coming in as well as private caregivers through the [facility].
--- NOTE | 2023-08-18 10:23 | PM.DS1 ---
DS: Providers Provider Date of admission: 08/17/23 15:37 Primary care physician: Non-Staff PhysicianMD Admitting clinician: Shaikh Arturo Attending physician on admission: Shaikh Arturo Consults: 08/17/23 07:00 Consult to Urology Routine Consulting Provider: Kurt Bess Reason for consultation: Hematuria Has provider been notified: No 08/17/23 09:00 Occupational Therapy Eval and Treat Routine Reason for consultation: Weakness Has provider been notified: No Physical Therapy Eval and Treat Routine Reason for consultation: Weakness Has provider been notified: No Attending physician on discharge: Shaikh Arturo Discharging clinician: Shaikh Arturo Anticipated date of discharge: 08/18/23 DS: Diagnosis Discharge Diagnosis (1) Gross hematuria: Assessment and plan: Resolved. Hb remained stable. (2) Catheter-associated urinary tract infection: Assessment and plan: Urine cx pending. However, will dc him on oral ceftin to finish his course of abx. Qualifiers: Indwelling urinary catheter type: indwelling urethral catheter Encounter type: subsequent encounter Qualified Code(s): T83.511D - Infection and inflammatory reaction due to indwelling urethral catheter, subsequent encounter; N39.0 - Urinary tract infection, site not specified (3) Dehydration: Assessment and plan: Resolved. (4) Hypothyroid: Assessment and plan: C/w levothyroxine Qualifiers: Hypothyroidism type: unspecified Qualified Code(s): E03.9 - Hypothyroidism, unspecified (5) HLD (hyperlipidemia): Assessment and plan: C/w statin Qualifiers: Hyperlipidemia type: unspecified Qualified Code(s): E78.5 - Hyperlipidemia, unspecified (6) HTN (hypertension): Assessment and plan: C/w home medications Qualifiers: Hypertension type: primary hypertension Qualified Code(s): I10 - Essential (primary) hypertension (7) Anemia in CKD (chronic kidney disease): Assessment and plan: Hb remained stable. No sig decrease with hematuria Qualifiers: Chronic kidney disease stage: stage 5, not on chronic dialysis Qualified Code(s): N18.5 - Chronic kidney disease, stage 5; D63.1 - Anemia in chronic kidney disease (8) Chronic indwelling Wooten catheter: Assessment and plan: Follow up with urology as outpatient. (9) H/O: CVA (cerebrovascular accident): Assessment and plan: C/w ASA, statin (10) CKD (chronic kidney disease) stage 5, GFR less than 15 ml/min: Assessment and plan: At baseline. Outpatient f/u with Nephrology. (11) T2DM (type 2 diabetes mellitus): Assessment and plan: C/w ozempic Qualifiers: Diabetes mellitus assisted insulin use: with assisted use Diabetes mellitus complication status: with kidney complications Diabetes mellitus complication detail: with chronic kidney disease Chronic kidney disease stage: stage 5, not on chronic dialysis Qualified Code(s): E11.22 - Type 2 diabetes mellitus with diabetic chronic kidney disease; N18.5 - Chronic kidney disease, stage 5; Z79.4 - FCI (current) use of insulin DS: Summary Hospital Course Hospital Course: 72-year-old male came in with gross hematuria and mild abdominal discomfort in lower abdomen Patient has chronic indwelling catheter in place due to BPH and ambulatory dysfunction He also was noted to have catheter associated UTI for which he was started on rocephin. Patient's hematuria resolved without any intervention. Hb remained stable. His symptoms also improved over the course of admission. Patient is stable for discharge on PO abx. He will need outpatient f/u with PCP/Urology. Status at Discharge Functional status at discharge: bed bound Overall status at discharge: patient is back to baseline Time Spent with Patient Time attestation: Total time spent providing and/or coordinating discharge services: Time spent: greater than 30 minutes Exam Constitutional Vital Signs, click to edit/add: Last Vital Signs Temp 97.9 F 08/18/23 07:34 Pulse 80 08/18/23 07:34 Resp 14 08/18/23 08:00 BP 152/80 H 08/18/23 07:34 Pulse Ox 95 08/18/23 07:34 O2 Del Method Room Air 08/18/23 07:34 O2 Flow Rate 1 08/17/23 12:00 Documenting provider has reviewed patient's vital signs: yes Common normals: no apparent distress and oriented x3 Nutritional appearance: obese Respiratory Common normals: normal respiratory effort, no retractions, no use of accessory muscles and clear to auscultation bilaterally Effort & inspection: able to speak in complete sentences Cardio Common normals: no JVD, regular rate, regular rhythm, S1 normal heart sound and S2 normal heart sound GI Common normals: Normal to inspection, nondistended, normoactive bowel sounds present, soft to palpation, non-tender and no hepatosplenomegaly Neuro Common normals: oriented x3 Gait (neuro): unable to assess gait Motor exam: strength abnormal DS: Data Data Completed and Pending Labs on day of discharge: Labs from last 24 hours 08/18/23 08/17/23 08/17/23 06:16 20:51 20:12 WBC 7.8 RBC 3.31 L Hgb 9.6 L 9.8 L Hct 30.6 L 31.3 L MCV 92.4 MCH 29.0 MCHC 31.4 RDW 14.6 Plt Count 135 L MPV 9.8 Neut % (Auto) 71.1 Lymph % (Auto) 12.5 L [place] % (Auto) 10.3 Eos % (Auto) 4.6 Baso % (Auto) 0.9 Neut # (Auto) 5.5 Lymph # (Auto) 1.0 L [place] # (Auto) 0.8 Eos # (Auto) 0.4 Baso # (Auto) 0.1 Abs Immat Gran (auto) 0.05 H Imm/Tot Granulo (auto) 0.6 H Sodium 139 Potassium 4.9 Chloride 107 Carbon Dioxide 19.6 L Anion Gap 17.3 BUN 111.0 H* Creatinine 5.83 H* Est GFR ( Amer) 12 L Est GFR (Non-Af Amer) 10 L BUN/Creatinine Ratio 19.0 Glucose 130 H Calcium 10.0 Total Bilirubin 0.4 AST 14 L ALT 32 Alkaline Phosphatase 114 Total Protein 6.3 L Albumin 2.5 L Globulin 3.8 Albumin/Globulin Ratio 0.7 POC Glucose 129 H 08/17/23 08/17/23 08/17/23 16:28 12:53 11:43 WBC RBC Hgb 9.2 L Hct 29.2 L MCV MCH MCHC RDW Plt Count MPV Neut % (Auto) Lymph % (Auto) [place] % (Auto) Eos % (Auto) Baso % (Auto) Neut # (Auto) Lymph # (Auto) [place] # (Auto) Eos # (Auto) Baso # (Auto) Abs Immat Gran (auto) Imm/Tot Granulo (auto) Sodium Potassium Chloride Carbon Dioxide Anion Gap BUN Creatinine Est GFR ( Amer) Est GFR (Non-Af Amer) BUN/Creatinine Ratio Glucose Calcium Total Bilirubin AST ALT Alkaline Phosphatase Total Protein Albumin Globulin Albumin/Globulin Ratio POC Glucose 117 H 114 H Preliminary micro results at discharge 08/16/23 23:23 Urine Culture - Preliminary Urine,Clean Catch Discharge Plan Discharge Disposition: Home, Self-Care Discharge Medications: New cefuroxime axetil 250 mg tablet 250 mg PO DAILY Qty: 7 0RF Continued Cepacol Sore Throat (chan-men) 15-2.6 mg lozenge 1 thien mucous membrane Q6H PRN (Reason: sore throat) clobetasol 0.05 % cream 1 applic topical BID nitroglycerin 0.4 mg tablet, sublingual 0.4 mg sublingual Q5M Rx Instructions: do not exceed 3 doses per episode bacitracin zinc 500 unit/gram ointment 1 applic topical DAILY PRN (Reason: skin irritation) trazodone 100 mg tablet 100 mg PO DAILY venlafaxine 37.5 mg capsule,extended release 24hr 37.5 mg PO DAILY miconazole nitrate 2 % cream 1 applic topical DAILY loratadine [Allergy Relief (loratadine)] 10 mg tablet 10 mg PO DAILY atorvastatin 80 mg tablet 80 mg PO DAILY darifenacin 15 mg tablet extended release 24 hr 15 mg PO DAILY [employer] Wound Dressing Paste 1 applic topical .FRI. FRI. carvedilol 12.5 mg tablet 12.5 mg PO BID Rx Instructions: must administer with a meal/food darbepoetin danielle in polysorbat 100 mcg/mL solution 100 mcg subcut QWEEK albuterol 90 mcg/actuation aerosol 90 mcg inhalation QID PRN (Reason: shortness of breath or wheezing) calcitriol 0.25 mcg capsule 0.25 mcg PO .3 TIMES WEEK potassium citrate-citric acid 1,100-334 mg/5 mL solution 30 ml PO DAILY zinc oxide 20 % ointment 1 applic topical DAILY PRN (Reason: skin irritation) hydrophilic cream Cream 1 applic topical BID miconazole nitrate [Remedy Phytoplex Antifungal] 2 % powder 1 applic topical DAILY PRN (Reason: fungal) omeprazole 20 mg tablet,delayed release (DR/EC) 20 mg PO DAILY melatonin 3 mg tablet 6 mg PO DAILY finasteride 5 mg tablet 5 mg PO DAILY polyethylene glycol 3350 [Miralax] 17 gram/dose powder 17 g PO DAILY PRN (Reason: constipation) Ozempic 2 mg/dose (8 mg/3 mL) pen injector 0.5 mg subcut QWEEK ustekinumab 90 mg/mL syringe 90 mg subcut .every 10 weeks ferrous sulfate 325 mg (65 mg iron) tablet,delayed release (DR/EC) 325 mg PO DAILY AsperFlex (lidocaine HCl) 4 % ointment 1 ea topical TID PRN (Reason: pain) lidocaine HCl 2 % gel 1 applic topical DAILY PRN (Reason: pain) Patient Comments: urethral pain pramoxine 1 % lotion 1 applic topical BID PRN (Reason: itching) acetaminophen [Tylenol] 325 mg capsule 975 mg PO TID PRN (Reason: fever or pain) aspirin [Adult Low Dose Aspirin] 81 mg tablet,delayed release (DR/EC) 81 mg PO DAILY guaifenesin 600 mg tablet extended release 12hr 600 mg PO BID PRN (Reason: congestion) sennosides 8.6 mg capsule 8.6 mg PO DAILY PRN (Reason: constipation) levothyroxine 75 mcg capsule 75 mcg PO DAILY cholecalciferol (vitamin D3) 50 mcg (2,000 unit) capsule 2,000 unit PO DAILY darbepoetin danielle in polysorbat 100 mcg/0.5 mL syringe 100 mcg subcut .q2week multivitamin Tablet 1 tab PO DAILY hydrocodone-acetaminophen 5-325 mg tablet 1 tab PO Q4H PRN (Reason: pain) nystatin 100,000 unit/gram powder 1 applic topical DAILY PRN (Reason: skin) Activity: increase activity as tolerated Diet: advance to your usual diet Print Language: Swazi Forms: Portal Instructions Follow Up Appointments: Follow up with Urology 1-2 week Follow up with PCP in 1-2 week
[2023-08-18] MEDS: CALCITRIOL 0.25 MCG CAPSULE PO (10:38)
[2023-08-18] MEDS: FINASTERIDE 5 MG TABLET PO (10:39)
[2023-08-18] MEDS: CHOLECALCIFEROL (VITAMIN D3) 25 MCG/1,000 UNITS TABLET 50 MCG PO (10:39)
[2023-08-18] MEDS: CARVEDILOL 12.5 MG TABLET PO (10:39)
[2023-08-18] MEDS: FERROUS SULFATE 325 MG TABLET PO (10:39)
[2023-08-18] MEDS: CETIRIZINE HCL 10 MG TABLET PO (10:39)
[2023-08-18] MEDS: OMEPRAZOLE 20 MG CAPSULE.DR PO (10:40)
[2023-08-18] MEDS: SOLIFENACIN SUCCINATE 10 MG TABLET PO (10:40)
[2023-08-18] MEDS: VENLAFAXINE HCL ER 37.5 MG CAPSULE PO (10:40)
--- NOTE | 2023-08-18 11:40 | CM.NOTE ---
Luan from [facility] called for update on pt. [facility] had been notified of pt's admission. Updated that pt would discharge to home today. [facility] has set up transportation for pt at discharge to transport to home.
--- NOTE | 2023-08-19 15:00 | CM.DCFOLLOWU ---
Person spoke with: [place] How are you feeling? Better How is your pain? No pain Did you understand your discharge instructions? Yes Do you have any questions about your discharge instructions? No Were you given any prescriptions at discharge? Yes Were you able to get your prescriptions filled? Yes Do you understand how to take your medications as ordered? Yes Do you have any questions about your follow up appointment and do you plan to keep your follow up appointment? No I will call this week to schedule f/u with my urologist at [facility] Is there anything else that you would like to discuss? No Questions/Comments/Concerns/Other:
== END 2023-08-18 12:58 | disposition home health service (06) | DRG 699 ==
LOC: ER 08-17 00:59 → MS 08-17 16:01
PROVIDERS: Registered Nurse; Admitting Provider Internal Medicine; Emergency Provider Internal Medicine; Visit Provider Internal Medicine
DX: T83.511A Infection and inflammatory reaction due to indwelling urethral catheter, initial encounter (principal); G82.20 Paraplegia, unspecified; I12.0 Hypertensive chronic kidney disease with stage 5 chronic kidney disease or end stage renal disease; N18.5 Chronic kidney disease, stage 5; R31.0 Gross hematuria; E86.0 Dehydration; E03.9 Hypothyroidism, unspecified; E78.5 Hyperlipidemia, unspecified; E11.22 Type 2 diabetes mellitus with diabetic chronic kidney disease; N40.0 Benign prostatic hyperplasia without lower urinary tract symptoms; D63.1 Anemia in chronic kidney disease; I69.369 Other paralytic syndrome following cerebral infarction affecting unspecified side; N39.0 Urinary tract infection, site not specified; E66.9 Obesity, unspecified; B96.5 Pseudomonas (aeruginosa) (mallei) (pseudomallei) as the cause of diseases classified elsewhere; Z68.39 Body mass index [BMI] 39.0-39.9, adult; Z79.4 Long term (current) use of insulin; Z79.82 Long term (current) use of aspirin; Z79.899 Other long term (current) drug therapy; Z79.890 Hormone replacement therapy; Z74.01 Bed confinement status; Z87.891 Personal history of nicotine dependence
CPT/HCPCS: 36415; 80048; 80053; 81001; 82948; 83605; 84484; 85014; 85018; 85025; 87086; 87150; 87186; 93005; 96361; 96365; 99285

== ENCOUNTER 2023-09-10 22:03 | Inpatient (IN) | payer OTHER, SELFPAY ==
[2023-09-10] VITALS (12 sets, daily range): BP systolic 135; BP diastolic 70; PULSE 80–86; TEMP 36.4; O2SAT 97–100; BMI 39.6
--- NOTE | 2023-09-10 22:10 | ECG_ITS ---
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
--- OUTSIDE RECORDS SUMMARY | 2023-09-10 22:15 | XMS_ITS | CCD ---
Author Organization [facility] Care Team Providers Care Conduit Reamer Operator Name Role Phone Unavailable Primary Care Provider UnavailROBERTO Raman Consulting Unavailable DIAB ., GAVIOTA Attending Unavailable DIAB ., GAVIOTA Admitting Unavailable MISC, DR YODER Primary Care Unavailable DIAB ., GAVIOTA Consulting Unavailable REQUEST, DR BOOTH LISTED Primary Care Unavailaudrey HALLMAN, DR REJI Vidal Consulting Unavailabl e REINJULY, DR REJI Vidal Attending Unavailabl e LEXX, DR REJI Vidal Admitting Unavailabl e GRECHNY ., KENDRA MERIDA Consulting Unavailangela e HAY ., DR BARAJAS Attending Unavailable HAY ., DR BARAJAS Admitting Unavailable REQUEST, DR BOOTH LISTED Primary Care UnavailMARQUES Byers Consulting Unavailable [...] Consulting Unavailable SHAIKH Irasema HUNTLEY Consulting Unavailable STRAWSER MARQUES Consulting Unavailable ELEANOR ., PASHA Consulting Unavailable JBARA, YASER Consulting Unavailable ЕЛЕНА OLSEN Referring Unavailable Nasim CRAMER Attending Unavailable Erik Sanderson Unavailable Devaughn Lucio Unavailable Eldon López Attending Unavailable Nasim Cramer Consulting Unavailable Kyaw Olsen Admitting Unavailable Morteza (Clinic)Riana Primary Care UnavailNorma Maya Consulting Unavailable Lucretia Peralta Consulting Unavailable Erik Sanderson Consulting Unavailable Sarahi Walden Consulting Unavailable Jesús Dinero Consulting Unavailable Umang Yan Consulting BLANCA Colin Referring Unavailable Allergies Allergy Classification Reported Allergen(s) Allergy Type Date of Onset Reaction(s) Facility Penicillins (antibiotic) (1 source) Penicillins Drug Allergy 02-06-20 [facility] (1 source) Penicillins Propensity to adverse reactions to drug 02-06-20 [place] (2 sources) Penicillin; Translations: [penicillin] Drug Allergy [facility] Repository (2 sources) Sulfamethoxazole / Trimethoprim; Translations: [Bactrim] Drug Allergy [facility] Repository (1 source) No Known Medication Allergies; Translations: [No Known Medication Allergies] Propensity to adverse reactions (disorder) [facility] Repository (3 sources) Penicillin G Drug Allergy Unknown [email or web address] Other (3 sources) Sulfamethoxazole / Trimethoprim Drug Allergy Unknown [email or web address] Other (1 source) Penicillins Drug allergy (disorder) 08-31-19 [facility] Repository (1 source) Sulfamethoxazole Drug Allergy 08-31-19 [facility] Repository (1 source) Trimethoprim Drug Allergy 08-31-19 [facility] Repository Medications Current Medications Medication Drug Class(es) [...] mouth every morning (before breakfast) 0 Active [id number] 200 actuat albuterol 0.09 mg/actuat metered dose [...] DAY Active take 1 tablet by estrella once daily at breakfast ferrous sulfate 325 [...] Once a day Active polyethylene glycol 3350 15258 mg powder for oral solution (3 sources) [...] disease (2 sources) Atherosclerotic heart disease of [place] coronary artery without angina pectoris; Translations: [Chronic [...] Onset: 2 Chronic Other aftercare (1 source) penitentiary (current) use of aspirin; Translations: [BUSINESS AGENT CURRENT USE OF ASPIRIN] Onset: 3 Episodic Other aftercare (1 source) Other long-term (current) drug therapy; Translations: [OTH DETENTION CURRENT DRUG THERAPY] Onset: 3 Episodic Other aftercare (1 source) penitentiary (current) use of insulin; Translations: [BUSINESS AGENT CURRENT USE OF INSULIN] Onset: 3 Episodic [...] SIGNIFICANT GROWTH Report Status FINAL 01/19/2023 Normal [facility] Comment on above: Performed By: #### U RC #### [address] [place], [place] [id number] Organ Pipe Voicer: Fredis Miller MD [facility] [address] [place] [address] [place] [address] Organ Pipe Voicer: Rao Espinosa MD UA w/Reflex Cultureon 2022 Bilirubin, SemiQt,Ur Negative Normal NEG [facility] Comment on above: Performed By: #### U MICAO, UAX #### [facility] [address] [place] [address] [place] [address] Organ Pipe Voicer: Rao Espinosa MD Blood, Urine 2+ Abnormal NEG [facility] Comment on above: Performed By: #### U MICAO, UAX #### [facility] [address] [place] [address] Organ Pipe Voicer: Rao Espinosa MD Clarity (U) Cloudy Abnormal CLEAR [facility] Comment on above: Performed By: #### U MICAO, UAX #### [facility] [address] [place], [place] [id number] Organ Pipe Voicer: Rao Espinosa MD Color (U) Yellow Normal YEL [facility] Comment on above: Performed By: #### U MICAO, UAX #### [facility] [address] [place], [place] [id number] Organ Pipe Voicer: Rao Espinosa MD Glucose Ql (U) TRACE Abnormal NEG [facility] Comment on above: Performed By: #### U MICAO, UAX #### [facility] [address] [place] [address] [place], [place] [id number] Organ Pipe Voicer: Rao Espinosa MD Ketones Ql (U) Negative Normal NEG [facility] Comment on above: Performed By: #### U MICAO, UAX #### [facility] [address] [place] [address] [place], [place] [id number] Organ Pipe Voicer: Rao Espinosa MD Leukocyte esterase Test strip Ql (U) LARGE Abnormal NEG [facility] Comment on above: Performed By: #### U MICAO, UAX #### [facility] [address] [place] [address] [place], [place] [id number] Organ Pipe Voicer: Rao Espinosa MD Nitrite,Ur Positive Abnormal NEG [facility] Comment on above: Performed By: #### U MICAO, UAX #### [facility] [address] [place], [place] [id number] Organ Pipe Voicer: Rao Espinosa MD PH,Ur 7.0 Normal 5.0-9.0 [facility] Comment on above: Performed By: #### U MICAO, UAX #### [facility] [address] [place] [address] [place], [place] [id number] Organ Pipe Voicer: Rao Espinosa MD Protein Ql (U) 1+ mg/dL Abnormal NEG [facility] Comment on above: Performed By: #### U MICAO, UAX #### [facility] [address] [place], [place] [id number] Organ Pipe Voicer: Rao Espinosa MD Spec. [place],Ur 1.010 Normal 1.010-1.020 [facility] Comment on above: Performed By: #### U MICAO, UAX #### [facility] [address] [place], [place] 2279[address] Organ Pipe Voicer: Rao Espinosa MD Urobilinogen,Ur Normal Normal 0.0-1.0 [facility] Comment on above: Performed By: #### U MICAO, UAX #### [facility] [address] [place], [place] [address] Organ Pipe Voicer: Rao Espinosa MD Urinalysis,Microon 3 Bacteria 3+ Abnormal NONE [facility] Comment on above: Performed By: #### U MICAO, UAX #### [facility] [address] [place], [place] 8155[address] Organ Pipe Voicer: Rao Espinosa MD Epithelial cells LM Ql (Urine sed) 0 TO 2 Normal 0-5 [facility] Comment on above: Performed By: #### U MICAO, UAX #### [facility] [address] [place] [address] [place], [place] [id number] Organ Pipe Voicer: Rao Espinosa MD Urine RBC's 5 TO 10 Normal 0-2 [facility] Comment on above: Performed By: #### U MICAO, UAX #### [facility] [address] [place], [place] [id number] Organ Pipe Voicer: Rao Espinosa MD Urine WBC's GREATER THAN 100 Normal 0-5 [facility] Comment on above: Performed By: #### U MICAO, UAX #### [facility] [address] [place], [place] [address] Organ Pipe Voicer: Rao Esipnosa MD Glucose Poct Glucometerson 0 09-04-2022 Glucose [Mass/Vol] 122 mg/dL Normal [facility] Comment on above: Result Comment: [facility] Glucose Reference Range is dependent on time and content of last meal. Glucose of more than 200 mg/dL in a nonstressed, ambulatory subject supports the diagnosis of Diabetes Mellitus. PERFORMED BY: [facility] [address] [place] [address] PATHOLOGIST MANDARIN SPEAKING NANNY BRANDEN WHATLEY M.D. Performed By: #### G LULS #### Point of Care testing , Renal Function Panelon 09-04 Albumin [Mass/Vol] 2.4 g/dL Low 3.5-5.7 [facility] Comment on above: Performed By: #### G LULS #### Point of Care testing , Anion gap [Moles/Vol] 14.8 mmol/L Normal 6.0-15.0 [facility] Comment on above: Performed By: #### G LULS #### Point of Care testing , Calcium [Mass/Vol] 8.6 mg/dL Normal 8.6-10.3 [facility] Comment on above: Performed By: #### G LULS #### Point of Care testing , Chloride [Moles/Vol] 99 mmol/L Normal 98-107 [facility] Comment on above: Performed By: #### G LULS #### Point of Care testing , CO2 [Moles/Vol] 24.7 mmol/L Normal 21.0-31.0 [facility] Comment on above: Performed By: #### G LULS #### Point of Care testing , Creatinine [Mass/Vol] 6.52 mg/dL Significan t change up 0.70-1.30 [facility] Comment on above: Performed By: #### G LULS #### Point of Care testing , Creatinine Clr Calc Pharmacy 16.01 Normal [facility] Comment on above: Result Comment: PERF ORMED BY: [facility] [address] [place] [address] PATHOLOGIST MANDARIN SPEAKING NANNY BRANDEN WHATLEY M.D. Performed By: #### G LULS #### Point of Care testing , GFR/1.73 sq M.predicted MDRD (S/P/Bld) [Vol rate/Area] 8.483 mL/min/{1.73_m2} Normal [facility] Comment on above: Performed By: #### G LULS #### Point of Care testing , Glucose [Mass/Vol] 115 mg/dL High 70-100 [facility] Comment on above: Result Comment: [place] Glucose Reference Range is dependent on time and content of last meal. Glucose of more than 200 mg/dL in a nonstressed, ambulatory subject supports the diagnosis of Diabetes Mellitus. ADA recommended reference range Performed By: #### G LULS #### Point of Care testing , Phosphate [Mass/Vol] 6.4 mg/dL Normal 3.7-7.2 [facility] Comment on above: Performed By: #### G LULS #### Point of Care testing , Potassium [Moles/Vol] 4.5 mmol/L Normal 3.5-5.1 [facility] Comment on above: Performed By: #### G LULS #### Point of Care testing , Sodium [Moles/Vol] 134 mmol/L Low 136-145 [facility] Comment on above: Performed By: #### G LULS #### Point of Care testing , Urea nitrogen [Mass/Vol] 76 mg/dL High 7-25 [facility] Comment on above: Performed By: #### G LULS #### Point of Care testing , COVID-19 [facility] SARS-CoV-2 (COVID-19) RNA JASON+probe Ql (Unsp spec) Negative Normal Negative [facility] Comment on above: Order Comment: Healt hcare Worker?: N Result Comment: Testing for SARS-CoV-2 by RT-PCR This test was developed and its performance characteristics determined by [employer] and validated at the [facility]. This test has not been FDA cleared [...] is terminated or revoked sooner. PERFORMED BY: [place] [address] PATHOLOGIST MANDARIN SPEAKING NANNY BRANDEN WHATLEY M.D. Performed By: #### F E and TIBC, [id number], ODALIS #### [address] Glucose Poct Glucometerson 0 09-03-2022 Glucose [Mass/Vol] 152 mg/dL Normal [facility] Comment on above: Result Comment: [facility] Glucose Reference Range is dependent on time and content of last meal. Glucose of more than 200 mg/dL in a nonstressed, ambulatory subject supports the diagnosis of Diabetes Mellitus. PERFORMED BY: [place] [address] PATHOLOGIST MANDARIN SPEAKING NANNY BRANDEN WHATLEY M.D. Performed By: #### G LULS #### Point of Care testing , Glucose [Mass/Vol] 111 mg/dL Normal [facility] Comment on above: Result Comment: [facility] Glucose Reference Range is dependent on time and content of last meal. Glucose of more than 200 mg/dL in a nonstressed, ambulatory subject supports the diagnosis of Diabetes Mellitus. PERFORMED BY: [place] [address] PATHOLOGIST MANDARIN SPEAKING NANNY BRANDEN WHATLEY M.D. Performed By: #### G LULS #### Point of Care testing , Glucose [Mass/Vol] 106 mg/dL Normal [facility] Comment on above: Result Comment: [facility] Glucose Reference Range is dependent on time and content of last meal. Glucose of more than 200 mg/dL in a nonstressed, ambulatory subject supports the diagnosis of Diabetes Mellitus. PERFORMED BY: [facility] [address] [place] [address] PATHOLOGIST MANDARIN SPEAKING NANNY BRANDEN WHATLEY M.D. Performed By: #### G LULS #### Point of Care testing , Glucose [Mass/Vol] 140 mg/dL Normal [facility] Comment on above: Result Comment: [facility] Glucose Reference Range is dependent on time and content of last meal. Glucose of more than 200 mg/dL in a nonstressed, ambulatory subject supports the diagnosis of Diabetes Mellitus. PERFORMED BY: [facility] [address] [place] [address] PATHOLOGIST MANDARIN SPEAKING NANNY BRANDEN WHATLEY M.D. Performed By: #### G LULS #### Point of Care testing , Hemogram CBC Without Diffon 09-03-2022 Erythrocyte distribution width (RBC) [Ratio] 14.9 % High 12.0-14.8 [facility] Comment on above: Performed By: #### G LULS #### Point of Care testing , Hematocrit (Bld) [Volume fraction] 25.1 % Low 38.8-50.0 [facility] Comment on above: Performed By: #### G LULS #### Point of Care testing , Hemoglobin (Bld) [Mass/Vol] 8.4 g/dL Low 13.0-17.0 [facility] Comment on above: Performed By: #### G LULS #### Point of Care testing , MCH (RBC) [Entitic mass] 29.5 pg Normal 27.5-35.2 [facility] Comment on above: Performed By: #### G LULS #### Point of Care testing , MCV (RBC) [Entitic vol] 87.8 fL Normal 83.5-101 [facility] Comment on above: Performed By: #### G LULS #### Point of Care testing , Mean Corpuscular HGB Conc 33.5 g/dL Normal 32.5-35.6 [facility] Comment on above: Performed By: #### G LULS #### Point of Care testing , Platelet mean volume (Bld) [Entitic vol] 8.0 fL Normal 6.6-10.1 [facility] Comment on above: Result Comment: PERF ORMED BY: [place] [address] PATHOLOGIST MANDARIN SPEAKING NANNY BRANDEN WHATLEY M.D. Performed By: #### G LULS #### Point of Care testing , Platelets (Bld) [#/Vol] 111 10*3/uL Significant change down 150-450 [facility] Comment on above: Performed By: #### G LULS #### Point of Care testing , RBC (Bld) [#/Vol] 2.86 10*6/uL Low 3.90-5.60 [facility] Comment on above: Performed By: #### G LULS #### Point of Care testing , WBC (Bld) [#/Vol] 8.1 10*3/uL Normal 4.1-10.5 [facility] Comment on above: Performed By: #### G LULS #### Point of Care testing , Hepatitis Acute Panelon 08-13 HBsAg Screen Negative Normal Negative [facility] Comment on above: Order Comment: pt no t in room Performed By: #### F E and TIBC, [id number], ODALIS #### [facility] [address] [place] [address] Hepatitis A Antibody IgM Negative Normal Negative [facility] Comment on above: Order Comment: pt no t in room Performed By: #### F E and TIBC, [id number], ODALIS #### [facility] [address] [place] [address] Hepatitis B Core Antibody IgM Negative Normal Negative [facility] Comment on above: Order Comment: pt no t in room Result Comment: Ve rified by repeat analysis Performed By: #### F E and TIBC, [id number], ODALIS #### [address] Hepatitis C Virus Antibody Non-Reactive Normal Non Reactive [facility] Comment on above: Order Comment: pt no t in room Performed By: #### F E and TIBC, [id number], ODALIS #### [address] Interpretation Hepatitis C Normal . [facility] Comment on above: Order Comment: pt no t in room Result Comment: Not infected with HCV unless early or acute infection is suspected (which may be delayed in an immunocompromised individual), or other evidence exists to indicate HCV infection. Performed By: #### F E and TIBC, [id number], ODALIS #### [address] Hepatitis B Core Antibodyon 09-03-2022 Hepatitis B Core Antibody Negative Normal Negative [facility] Comment on above: Order Comment: pt no t in room Result Comment: Perf ormed at: - [facility] [address] [id number] Organ Pipe Voicer: Mata Pérez PhD, Phone: [phone] PERFORMED BY: [place] [address] PATHOLOGIST MANDARIN SPEAKING NANNY BRANDEN WHATLEY M.D. Performed By: #### F E and TIBC, [id number], ODALIS #### [address] Hepatitis B Surface Antibody on 09-03-2022 Hepatitis B Surface Antibody Reactive Normal . [facility] Comment on above: Order Comment: pt no t in room Result Comment: Non Reactive: Inconsistent with immunity, less than 10 mIU/mL Reactive: Consistent with immunity, greater than 9.9 mIU/mL Performed By: #### F E and TIBC, [id number], ODALIS #### [address] Renal Function Panelon 09-03 Albumin [Mass/Vol] 2.4 g/dL Low 3.5-5.7 [facility] Comment on above: Performed By: #### G LULS #### Point of Care testing , Anion gap [Moles/Vol] 16.5 mmol/L High 6.0-15.0 [facility] Comment on above: Performed By: #### G LULS #### Point of Care testing , Calcium [Mass/Vol] 8.7 mg/dL Normal 8.6-10.3 [facility] Comment on above: Performed By: #### G LULS #### Point of Care testing , Chloride [Moles/Vol] 101 mmol/L Normal 98-107 [facility] Comment on above: Performed By: #### G LULS #### Point of Care testing , CO2 [Moles/Vol] 22.4 mmol/L Normal 21.0-31.0 [facility] Comment on above: Performed By: #### G LULS #### Point of Care testing , Creatinine [Mass/Vol] 8.19 mg/dL Significan t change up 0.70-1.30 [facility] Comment on above: Performed By: #### G LULS #### Point of Care testing , Creatinine Clr Calc Pharmacy 12.70 [facility] Comment on above: Result Comment: PERF ORMED BY: [facility] [address] [place] [address] PATHOLOGIST MANDARIN SPEAKING NANNY BRANDEN WHATLEY M.D. Performed By: #### G LULS #### Point of Care testing , GFR/1.73 sq M.predicted MDRD (S/P/Bld) [Vol rate/Area] 6.452 mL/min/{1.73_m2} [facility] Comment on above: Performed By: #### G LULS #### Point of Care testing , Glucose [Mass/Vol] 112 mg/dL High 70-100 [facility] Comment on above: Result Comment: [place] Glucose Reference Range is dependent on time and content of last meal. Glucose of more than 200 mg/dL in a nonstressed, ambulatory subject supports the diagnosis of Diabetes Mellitus. ADA recommended reference range Performed By: #### G LULS #### Point of Care testing , Phosphate [Mass/Vol] 6.7 mg/dL Normal 3.7-7.2 [facility] Comment on above: Performed By: #### G LULS #### Point of Care testing , Potassium [Moles/Vol] 4.9 mmol/L Normal 3.5-5.1 [facility] Comment on above: Performed By: #### G LULS #### Point of Care testing , Sodium [Moles/Vol] 135 mmol/L Low 136-145 [facility] Comment on above: Performed By: #### G LULS #### Point of Care testing , Urea nitrogen [Mass/Vol] 99 mg/dL High 7-25 [facility] Comment on above: Performed By: #### G LULS #### Point of Care testing , Stool Occult Blood (Immuno)o n 09-03-2022 Stool Occult Blood (Immuno) Occult Blood (Immuno) Positive for Occult Blood by Immunochemical Methodology Reference range = Negative PERFORMED BY: [place] [address] PATHOLOGIST MANDARIN SPEAKING NANNY BRANDEN WHATLEY M.D. [facility] Comment on above: Performed By: #### G LULS #### Point of Care testing , XR chest 1V portableon 09-03 XR chest 1V portable [facility] [place] [address] XRay Report Signed Patient: Matt Kelly MR#: [id number] : 1950 Acct:[id number] Age/Sex: 71 / M ADM Date: 08/30/22 Loc: Room: [address] [place] [address] Type: ADM IN Attending Dr: Eldon López [...] Rafi Morales M.D.09/03/2022 3:02 PM Dictation Location: [place] [address] Transcribed By: [facility] 09/03/22 1502 Dictated By: Rafi Morales II, MD 09/03/22 1501 Signed By: 09/03/22 1502 Normal [facility] Complete Blood Count Auto Di ffon 09-02-2022 Basophils (Bld) [#/Vol] 0.1 10*3/uL Normal 0.0-0.2 [facility] Comment on above: Result Comment: PERF ORMED BY: [facility] [address] [address] [address] PATHOLOGIST MANDARIN SPEAKING NANNY BRANDEN WHATLEY M.D. Performed By: #### G LULS #### Point of Care testing , Basophils/100 WBC (Bld) 0.4 % Normal . [facility] Comment on above: Performed By: #### G LULS #### Point of Care testing , Eosinophils (Bld) [#/Vol] 0.1 10*3/uL Normal 0.0-0.45 [facility] Comment on above: Performed By: #### G LULS #### Point of Care testing , Eosinophils/100 WBC (Bld) 0.5 % Normal . [facility] Comment on above: Performed By: #### G LULS #### Point of Care testing , Erythrocyte distribution width (RBC) [Ratio] 14.8 % Normal 12.0-14.8 [facility] Comment on above: Performed By: #### G LULS #### Point of Care testing , Hematocrit (Bld) [Volume fraction] 26.7 % Low 38.8-50.0 [facility] Comment on above: Performed By: #### Young FRANK #### Point of Care testing , Hemoglobin (Bld) [Mass/Vol] 8.7 g/dL Low 13.0-17.0 [facility] Comment on above: Performed By: #### Young FRANK #### Point of Care testing , Lymphocytes (Bld) [#/Vol] 0.6 10*3/uL Low 1.00-4.8 [facility] Comment on above: Performed By: #### Young FRANK #### Point of Care testing , Lymphocytes/100 WBC (Bld) 3.6 % Normal . [facility] Comment on above: Performed By: #### Young FRANK #### Point of Care testing , MCH (RBC) [Entitic mass] 28.6 pg Normal 27.5-35.2 [facility] Comment on above: Performed By: #### Young RICHARDSLS #### Point of Care testing , MCV (RBC) [Entitic vol] 87.9 fL Normal 83.5-101 [facility] Comment on above: Performed By: #### Young FRANK #### Point of Care testing , Mean Corpuscular HGB Conc 32.5 g/dL Normal 32.5-35.6 [facility] Comment on above: Performed By: #### Young FRANK #### Point of Care testing , Monocytes (Bld) [#/Vol] 0.9 10*3/uL High 0.0-0.8 [facility] Comment on above: Performed By: #### Young FRANK #### Point of Care testing , Monocytes/100 WBC (Bld) 5.9 % Normal . [facility] Comment on above: Performed By: #### Young RICHARDSLS #### Point of Care testing , Neutrophils (Bld) [#/Vol] 13.9 10*3/uL High 1.8-7.7 [facility] Comment on above: Performed By: #### Young FRANK #### Point of Care testing , Neutrophils/100 WBC (Bld) 89.6 % Normal . [facility] Comment on above: Performed By: #### G ZAC #### Point of Care testing , NRBC% 0.1 /100{WBC} Normal 0-0.5 [facility] Comment on above: Performed By: #### G ZAC #### Point of Care testing , Platelet mean volume (Bld) [Entitic vol] 7.8 fL Normal 6.6-10.1 [facility] Comment on above: Performed By: #### G ZAC #### Point of Care testing , Platelets (Bld) [#/Vol] 146 10*3/uL Low 150-450 [facility] Comment on above: Performed By: #### G ZAC #### Point of Care testing , RBC (Bld) [#/Vol] 3.04 10*6/uL Low 3.90-5.60 [facility] Comment on above: Performed By: #### Young FRANK #### Point of Care testing , WBC (Bld) [#/Vol] 15.5 10*3/uL High 4.1-10.5 [facility] Comment on above: Performed By: #### Young FRANK #### Point of Care testing , Comprehensive Metabolic Pane real 09-02-2022 Albumin [Mass/Vol] 2.5 g/dL Low 3.5-5.7 [facility] Comment on above: Performed By: #### C BC, RENAL, CMP ####[facility] [address] [place] [id number] [facility] Albumin/Globulin [Mass ratio] 0.8 {ratio} Normal [facility] Comment on above: Performed By: #### C BC, RENAL, CMP ####[facility] [id number] [place] [id number] [facility] ALP [Catalytic activity/Vol] 97 U/L Normal 34-104 [facility] Comment on above: Performed By: #### C BC, RENAL, CMP ####[facility] [place] [id number] [facility] ALT [Catalytic activity/Vol] 27 U/L Normal 7-52 [facility] Comment on above: Performed By: #### C BC, RENAL, CMP ####[place] [address] [place] [address] [facility] Anion gap [Moles/Vol] 15.2 mmol/L High 6.0-15.0 [facility] Comment on above: Performed By: #### C BC, RENAL, CMP ####[address] [address] [facility] AST [Catalytic activity/Vol] 14 U/L Normal 13-39 [facility] Comment on above: Performed By: #### C BC, RENAL, CMP ####[place] [address] [place] [address] [facility] Bilirubin [Mass/Vol] 0.3 mg/dL Normal 0.3-1.0 [facility] Comment on above: Performed By: #### C BC, RENAL, CMP ####[address] [address] [facility] Calcium [Mass/Vol] 8.5 mg/dL Low 8.6-10.3 [facility] Comment on above: Performed By: #### C BC, RENAL, CMP ####[place] [id number] [facility] Chloride [Moles/Vol] 106 mmol/L Normal 98-107 [facility] Comment on above: Performed By: #### C BC, RENAL, CMP ####[address] [address] [facility] CO2 [Moles/Vol] 20.3 mmol/L Low 21.0-31.0 [facility] Comment on above: Performed By: #### C BC, RENAL, CMP ####[address] [address] [facility] Creatinine [Mass/Vol] 6.98 mg/dL High 0.70-1.30 [facility] Comment on above: Performed By: #### C BC, RENAL, CMP ####[address] [address] [place] Creatinine Clr Calc Pharmacy 14.33 Normal [facility] Comment on above: Performed By: #### C BC, RENAL, CMP ####[place] [address] [place] [id number] [facility] GFR/1.73 sq M.predicted MDRD (S/P/Bld) [Vol rate/Area] 7.816 mL/min/{1.73_m2} [facility] Comment on above: Performed By: #### C BC, RENAL, CMP ####[place] [id number] [facility] Globulin (S) [Mass/Vol] 3.1 g/dL [facility] Comment on above: Performed By: #### C BC, RENAL, CMP ####[place] [id number] [facility] Glucose [Mass/Vol] 118 mg/dL High 70-100 [facility] Comment on above: Result Comment: [place] Glucose Reference Range is dependent on time and content of last meal. Glucose of more than 200 mg/dL in a nonstressed, ambulatory subject supports the diagnosis of Diabetes Mellitus. ADA recommended reference range Performed By: #### C BC, RENAL, CMP ####[place] [id number] [facility] Potassium [Moles/Vol] 5.5 mmol/L High 3.5-5.1 [facility] Comment on above: Performed By: #### C BC, RENAL, CMP ####[place] [id number] [facility] Protein [Mass/Vol] 5.6 g/dL Low 6.4-8.9 [facility] Comment on above: Performed By: #### C BC, RENAL, CMP ####[place] [id number] [facility] Sodium [Moles/Vol] 136 mmol/L Normal 136-145 [facility] Comment on above: Performed By: #### C BC, RENAL, CMP ####[place] [id number] [facility] Urea nitrogen [Mass/Vol] 92 mg/dL High 7-25 [facility] Comment on above: Performed By: #### C BC, RENAL, CMP ####[facility] [id number] [place] [address] [place] Consultation Noteon 09-03-19 Consultation Note [id number] .00CD:[address] [facility] Glucose Poct Glucometerson 0 09-02-2022 Glucose [Mass/Vol] 161 mg/dL Normal [facility] Comment on above: Result Comment: [facility] Glucose Reference Range is dependent on time and content of last meal. Glucose of more than 200 mg/dL in a nonstressed, ambulatory subject supports the diagnosis of Diabetes Mellitus. PERFORMED BY: [facility] [address] [id number] PATHOLOGIST MANDARIN SPEAKING NANNY BRANDEN WHATLEY M.D. Performed By: #### G LULS #### Point of Care testing , Commemt1 Glu2: Cleaned Meter Normal [facility] Comment on above: Result Comment: PERF ORMED BY: [facility] [address] [facility] [id number] PATHOLOGIST MANDARIN SPEAKING NANNY BRANDEN WHATLEY M.D. Performed By: #### G LULS #### Point of Care testing , Glucose [Mass/Vol] 244 mg/dL Normal [facility] Comment on above: Result Comment: [facility] Glucose Reference Range is dependent on time and content of last meal. Glucose of more than 200 mg/dL in a nonstressed, ambulatory subject supports the diagnosis of Diabetes Mellitus. Performed By: #### G LULS #### Point of Care testing , Insurance Correspondence Off iceon 09-02-2022 Insurance Correspondence Office [id number] .[id number]:[address] [facility] Renal Function Panelon 09-02 Phosphate [Mass/Vol] 6.5 mg/dL Normal 3.7-7.2 [facility] Comment on above: Result Comment: PERF ORMED BY: [facility] [address] [place] [address] PATHOLOGIST MANDARIN SPEAKING NANNY BRANDEN WHATLEY M.D. Performed By: #### C BC, RENAL, CMP ####[address] Complete Blood Count Auto Di ffon 09-01-2022 Basophils (Bld) [#/Vol] 0.1 10*3/uL Normal 0.0-0.2 [facility] Comment on above: Result Comment: PERF ORMED BY: [facility] [address] [facility] [place] [address] PATHOLOGIST MANDARIN SPEAKING NANNY BRANDEN WHATLEY M.D. Performed By: #### R ENAL, CBC, CMP ####[address] Basophils/100 WBC (Bld) 1.2 % Normal . [facility] Comment on above: Performed By: #### R ENAL, CBC, CMP ####[address] Eosinophils (Bld) [#/Vol] 0.3 10*3/uL Normal 0.0-0.45 [facility] Comment on above: Performed By: #### R ENAL, CBC, CMP ####[address] Eosinophils/100 WBC (Bld) 5.5 % Normal . [facility] Comment on above: Performed By: #### R ENAL, CBC, CMP ####[address] Erythrocyte distribution width (RBC) [Ratio] 14.7 % Normal 12.0-14.8 [facility] Comment on above: Performed By: #### R ENAL, CBC, CMP ####[address] Hematocrit (Bld) [Volume fraction] 25.2 % Low 38.8-50.0 [facility] Comment on above: Performed By: #### R ENAL, CBC, CMP ####[address] [place] [address] [place] Hemoglobin (Bld) [Mass/Vol] 8.3 g/dL Low 13.0-17.0 [facility] Comment on above: Performed By: #### R ENAL, CBC, CMP ####[address] Lymphocytes (Bld) [#/Vol] 0.9 10*3/uL Low 1.00-4.8 [facility] Comment on above: Performed By: #### R ENAL, CBC, CMP ####[address] Lymphocytes/100 WBC (Bld) 14.6 % Normal . [facility] Comment on above: Performed By: #### R ENAL, CBC, CMP ####[address] MCH (RBC) [Entitic mass] 29.0 pg Normal 27.5-35.2 [facility] Comment on above: Performed By: #### R ENAL, CBC, CMP ####[address] MCV (RBC) [Entitic vol] 87.7 fL Normal 83.5-101 [facility] Comment on above: Performed By: #### R ENAL, CBC, CMP ####[address] Mean Corpuscular HGB Conc 33.0 g/dL Normal 32.5-35.6 [facility] Comment on above: Performed By: #### R ENAL, CBC, CMP ####[address] Monocytes (Bld) [#/Vol] 0.8 10*3/uL Normal 0.0-0.8 [facility] Comment on above: Performed By: #### R ENAL, CBC, CMP ####[address] Monocytes/100 WBC (Bld) 12.6 % Normal . [facility] Comment on above: Performed By: #### R ENAL, CBC, CMP ####[address] Neutrophils (Bld) [#/Vol] 4.0 10*3/uL Normal 1.8-7.7 [facility] Comment on above: Performed By: #### R ENAL, CBC, CMP ####[address] Neutrophils/100 WBC (Bld) 66.1 % Normal . [facility] Comment on above: Performed By: #### R ENAL, CBC, CMP ####[address] NRBC% 0.1 /100{WBC} Normal 0-0.5 [facility] Comment on above: Performed By: #### R ENAL, CBC, CMP ####[address] Platelet mean volume (Bld) [Entitic vol] 7.9 fL Normal 6.6-10.1 [facility] Comment on above: Performed By: #### R ENAL, CBC, CMP ####[address] Platelets (Bld) [#/Vol] 145 10*3/uL Low 150-450 [facility] Comment on above: Performed By: #### R ENAL, CBC, CMP ####[address] RBC (Bld) [#/Vol] 2.87 10*6/uL Low 3.90-5.60 [facility] Comment on above: Performed By: #### R ENAL, CBC, CMP ####[address] WBC (Bld) [#/Vol] 6.1 10*3/uL Normal 4.1-10.5 [facility] Comment on above: Performed By: #### R ENAL, CBC, CMP ####[place] [id number] [facility] Comprehensive Metabolic Pane real 09-01-2022 Albumin [Mass/Vol] 2.7 g/dL Low 3.5-5.7 [facility] Comment on above: Performed By: #### R TELLY, CBC, CMP ####[facility] [id number] [place] [address] [facility] Albumin/Globulin [Mass ratio] 0.9 {ratio} Normal [facility] Comment on above: Performed By: #### R TELLY CBC, CMP ####[facility] Kzs[address] [place] [address] [facility] ALP [Catalytic activity/Vol] 107 U/L High 34-104 [facility] Comment on above: Performed By: #### R TELLY CBC, CMP ####[facility] R[address] [place] [address] [facility] ALT [Catalytic activity/Vol] 32 U/L Normal 7-52 [facility] Comment on above: Performed By: #### R TELLY, CBC, CMP ####[facility] Vnc[address] [place] [address] [facility] Anion gap [Moles/Vol] 14.1 mmol/L Normal 6.0-15.0 [facility] Comment on above: Performed By: #### Fadia VARENR CBC, CMP ####[address] [place] [address] [facility] AST [Catalytic activity/Vol] 21 U/L Normal 13-39 [facility] Comment on above: Performed By: #### R TELLY, CBC, CMP ####[facility] [id number] [place] [address] [facility] Bilirubin [Mass/Vol] 0.4 mg/dL Normal 0.3-1.0 [facility] Comment on above: Performed By: #### R TELLY, CBC, CMP ####[facility] [id number] [place] [address] [facility] Calcium [Mass/Vol] 8.9 mg/dL Normal 8.6-10.3 [facility] Comment on above: Performed By: #### R ENAL, CBC, CMP ####[place] [address] [place] [id number] [facility] Chloride [Moles/Vol] 110 mmol/L High 98-107 [facility] Comment on above: Performed By: #### R ENAL, CBC, CMP ####[place] [id number] [facility] CO2 [Moles/Vol] 17.7 mmol/L Low 21.0-31.0 [facility] Comment on above: Performed By: #### R ENAL, CBC, CMP ####[address] Creatinine [Mass/Vol] 6.68 mg/dL Significan t change up 0.70-1.30 [facility] Comment on above: Performed By: #### R TELLY, CBC, CMP ####[address] Creatinine Clr Calc Pharmacy 14.96 [facility] Comment on above: Performed By: #### R ENAL, CBC, CMP ####[place] [id number] [facility] GFR/1.73 sq M.predicted MDRD (S/P/Bld) [Vol rate/Area] 8.239 mL/min/{1.73_m2} [facility] Comment on above: Performed By: #### R ENAL, CBC, CMP ####[address] Globulin (S) [Mass/Vol] 3.0 g/dL [facility] Comment on above: Performed By: #### R ENAL, CBC, CMP ####[place] [id number] [facility] Glucose [Mass/Vol] 90 mg/dL Normal 70-100 [facility] Comment on above: Result Comment: [place] Glucose Reference Range is dependent on time and content of last meal. Glucose of more than 200 mg/dL in a nonstressed, ambulatory subject supports the diagnosis of Diabetes Mellitus. ADA recommended reference range Performed By: #### R ENAL, CBC, CMP ####[facility] [place] [address] [facility] Potassium [Moles/Vol] 4.8 mmol/L Normal 3.5-5.1 [facility] Comment on above: Performed By: #### R ENAL, CBC, CMP ####[address] [place] [address] [facility] Protein [Mass/Vol] 5.7 g/dL Low 6.4-8.9 [facility] Comment on above: Performed By: #### R ENAL, CBC, CMP ####[place] [place] [address] [facility] Sodium [Moles/Vol] 137 mmol/L Normal 136-145 [facility] Comment on above: Performed By: #### R ENAL, CBC, CMP ####[address] [address] [facility] Urea nitrogen [Mass/Vol] 83 mg/dL High 7-25 [facility] Comment on above: Performed By: #### R ENAL, CBC, CMP ####[address] [address] [facility] Glucose Poct Glucometerson 0 - Glucose [Mass/Vol] 95 mg/dL Normal [facility] Comment on above: Result Comment: [facility] Glucose Reference Range is dependent on time and content of last meal. Glucose of more than 200 mg/dL in a nonstressed, ambulatory subject supports the diagnosis of Diabetes Mellitus. PERFORMED BY: [facility] [address] [place] [address] PATHOLOGIST MANDARIN SPEAKING NANNY BRANDEN WHATLEY M.D. Performed By: #### G LULS #### Point of Care testing , Commemt1 Glu2: Cleaned Meter Normal [facility] Comment on above: Result Comment: PERF ORMED BY: [facility] [address] [place] [address] PATHOLOGIST MANDARIN SPEAKING NANNY BRANDEN WHATLEY M.D. Performed By: #### G LULS #### Point of Care testing , Glucose [Mass/Vol] 96 mg/dL Normal [facility] Comment on above: Result Comment: [place] om Glucose Reference Range is dependent on time and content of last meal. Glucose of more than 200 mg/dL in a nonstressed, ambulatory subject supports the diagnosis of Diabetes Mellitus. Performed By: #### G LULS #### Point of Care testing , Glucose [Mass/Vol] 100 mg/dL Normal [facility] Comment on above: Result Comment: [place] om Glucose Reference Range is dependent on time and content of last meal. Glucose of more than 200 mg/dL in a nonstressed, ambulatory subject supports the diagnosis of Diabetes Mellitus. PERFORMED BY: [facility] [address] [place] [address] PATHOLOGIST MANDARIN SPEAKING NANNY BRANDEN WHATLEY M.D. Performed By: #### G LULS ####Point of Care testing, Renal Function Panelon 09-01 Phosphate [Mass/Vol] 7.0 mg/dL Normal 3.7-7.2 [facility] Comment on above: Result Comment: PERF ORMED BY: [facility] [address] [place] [address] PATHOLOGIST MANDARIN SPEAKING NANNY BRANDEN WHATLEY M.D. Performed By: #### R ENAL, CBC, CMP ####[facility] [id number] [place] [id number] [facility] ABO/Rh Retypeon 08-31-2022 ABO/RH Recheck Result Negative Normal [facility] Comment on above: Order Comment: NEEDS DRAWN Result Comment: PERF ORMED BY: [facility] [address] [place] [address] PATHOLOGIST MANDARIN SPEAKING NANNY BRANDEN WHATLEY M.D. Basic Metabolic Panelon 08-13 Anion gap [Moles/Vol] 16.5 mmol/L High 6.0-15.0 [facility] Comment on above: Performed By: #### F E and TIBC, [id number], ODALIS #### [facility] [address] [place] [id number] [facility] Calcium [Mass/Vol] 8.3 mg/dL Low 8.6-10.3 [facility] Comment on above: Performed By: #### F E and TIBC, [id number], ODALIS #### [facility] [address] Chloride [Moles/Vol] 111 mmol/L High 98-107 [facility] Comment on above: Performed By: #### F E and TIBC, [id number], ODALIS #### [facility] [address] CO2 [Moles/Vol] 14.2 mmol/L Low 21.0-31.0 [facility] Comment on above: Performed By: #### F E and TIBC, [id number], ODALIS #### [facility] [address] Creatinine [Mass/Vol] 5.39 mg/dL Significan t change up 0.70-1.30 [facility] Comment on above: Performed By: #### F E and TIBC, [id number], ODALIS #### [facility] [address] [place] [address] [place] Creatinine Clr Calc Pharmacy 18.62 [facility] Comment on above: Performed By: #### F E and TIBC, [id number], ODALIS #### [facility] [address] GFR/1.73 sq M.predicted MDRD (S/P/Bld) [Vol rate/Area] 10.659 mL/min/{1.73_m2} [facility] Comment on above: Performed By: #### F E and TIBC, [id number], ODALIS #### [facility] [address] [place] [address] [place] Glucose [Mass/Vol] 104 mg/dL High 70-100 [facility] Comment on above: Result Comment: [place] Glucose Reference Range is dependent on time and content of last meal. Glucose of more than 200 mg/dL in a nonstressed, ambulatory subject supports the diagnosis of Diabetes Mellitus. ADA recommended reference range Performed By: #### F E and TIBC, [id number], ODALIS #### [facility] [address] Potassium [Moles/Vol] 4.7 mmol/L Normal 3.5-5.1 [facility] Comment on above: Performed By: #### F E and TIBC, [id number], ODALIS #### [address] Sodium [Moles/Vol] 137 mmol/L Normal 136-145 [facility] Comment on above: Performed By: #### F E and TIBC, [id number], ODALIS #### [address] Urea nitrogen [Mass/Vol] 73 mg/dL High 7-25 [facility] Comment on above: Performed By: #### F E and TIBC, [id number], ODALIS #### [address] Complete Blood Count Auto Di ffon 08-31-2022 Basophils (Bld) [#/Vol] 0.0 10*3/uL Normal 0.0-0.2 [facility] Comment on above: Result Comment: PERF ORMED BY: [place] [address] PATHOLOGIST MANDARIN SPEAKING NANNY BRANDEN WHATLEY M.D. Performed By: #### B MP, CBC, MG ####[address] Basophils/100 WBC (Bld) 0.8 % Normal . [facility] Comment on above: Performed By: #### B MP, CBC, MG ####[place] [address] [place] Eosinophils (Bld) [#/Vol] 0.2 10*3/uL Normal 0.0-0.45 [facility] Comment on above: Performed By: #### B MP, CBC, MG ####[place] [address] [place] Eosinophils/100 WBC (Bld) 4.2 % Normal . [facility] Comment on above: Performed By: #### B MP, CBC, MG ####[address] Erythrocyte distribution width (RBC) [Ratio] 14.9 % High 12.0-14.8 [facility] Comment on above: Performed By: #### B MP, CBC, MG ####[address] Hematocrit (Bld) [Volume fraction] 19.8 % Off scale low 38.8-50.0 [facility] Comment on above: Result Comment: Crit ical Result HCT:19.8 called to and read back by: [id number] on 08/31/2022 11:09:15 by:SULY. Performed By: #### B MP, CBC, MG ####[address] Hemoglobin (Bld) [Mass/Vol] 6.4 g/dL Low 13.0-17.0 [facility] Comment on above: Performed By: #### B MP, CBC, MG ####[address] Lymphocytes (Bld) [#/Vol] 0.8 10*3/uL Low 1.00-4.8 [facility] Comment on above: Performed By: #### B MP, CBC, MG ####[address] Lymphocytes/100 WBC (Bld) 14.6 % Normal . [facility] Comment on above: Performed By: #### B MP, CBC, MG ####[address] MCH (RBC) [Entitic mass] 28.7 pg Normal 27.5-35.2 [facility] Comment on above: Performed By: #### B MP, CBC, MG ####[address] MCV (RBC) [Entitic vol] 88.3 fL Normal 83.5-101 [facility] Comment on above: Performed By: #### B MP, CBC, MG ####[address] Mean Corpuscular HGB Conc 32.5 g/dL Normal 32.5-35.6 [facility] Comment on above: Performed By: #### B MP, CBC, MG ####[address] Monocytes (Bld) [#/Vol] 0.5 10*3/uL Normal 0.0-0.8 [facility] Comment on above: Performed By: #### B MP, CBC, MG ####[address] Monocytes/100 WBC (Bld) 9.8 % Normal . [facility] Comment on above: Performed By: #### B MP, CBC, MG ####[address] Neutrophils (Bld) [#/Vol] 3.8 10*3/uL Normal 1.8-7.7 [facility] Comment on above: Performed By: #### B MP, CBC, MG ####[address] Neutrophils/100 WBC (Bld) 70.6 % Normal . [facility] Comment on above: Performed By: #### B MP, CBC, MG ####[address] NRBC% 0.0 /100{WBC} Normal 0-0.5 [facility] Comment on above: Performed By: #### B MP, CBC, MG ####[address] Platelet mean volume (Bld) [Entitic vol] 7.7 fL Normal 6.6-10.1 [facility] Comment on above: Performed By: #### B MP, CBC, MG ####[address] Platelets (Bld) [#/Vol] 142 10*3/uL Low 150-450 [facility] Comment on above: Performed By: #### B MP, CBC, MG ####[facility] [id number] RBC (Bld) [#/Vol] 2.24 10*6/uL Low 3.90-5.60 [facility] Comment on above: Performed By: #### B MP, CBC, MG ####[facility] [id number] WBC (Bld) [#/Vol] 5.4 10*3/uL Normal 4.1-10.5 [facility] Comment on above: Performed By: #### B MP, CBC, MG ####[facility] [id number] Ferritinon 08-31-2022 Ferritin [Mass/Vol] 551.8 ng/mL High 23.9-336.2 [facility] Comment on above: Performed By: #### F E and TIBC, [id number], ODALIS #### [facility] [address] Glucose Poct Glucometerson 0 08-31-2022 Commemt1 Glu2: Cleaned Meter [facility] Comment on above: Result Comment: PERF ORMED BY: [place] [address] PATHOLOGIST MANDARIN SPEAKING NANNY BRANDEN WHATLEY M.D. Performed By: #### G LULS ####Point of Care testing, Glucose [Mass/Vol] 123 mg/dL Normal [facility] Comment on above: Result Comment: [facility] Glucose Reference Range is dependent on time and content of last meal. Glucose of more than 200 mg/dL in a nonstressed, ambulatory subject supports the diagnosis of Diabetes Mellitus. Performed By: #### G LULS ####Point of Care testing, Commemt1 Glu2: Cleaned Meter Normal [facility] Comment on above: Result Comment: PERF ORMED BY: [place] [address] PATHOLOGIST MANDARIN SPEAKING NANNY BRANDEN WHATLEY M.D. Performed By: #### G LULS #### Point of Care testing , Glucose [Mass/Vol] 101 mg/dL Normal [facility] Comment on above: Result Comment: [place] om Glucose Reference Range is dependent on time and content of last meal. Glucose of more than 200 mg/dL in a nonstressed, ambulatory subject supports the diagnosis of Diabetes Mellitus. Performed By: #### G LULS #### Point of Care testing , Commemt1 Glu2: Cleaned Meter Normal [facility] Comment on above: Result Comment: PERF ORMED BY: [place] [address] PATHOLOGIST MANDARIN SPEAKING NANNY BRANDEN WHATLEY M.D. Performed By: #### G LULS #### Point of Care testing , Glucose [Mass/Vol] 126 mg/dL Normal [facility] Comment on above: Result Comment: [place] om Glucose Reference Range is dependent on time and content of last meal. Glucose of more than 200 mg/dL in a nonstressed, ambulatory subject supports the diagnosis of Diabetes Mellitus. Performed By: #### G LULS #### Point of Care testing , Glucose [Mass/Vol] 123 mg/dL Normal [facility] Comment on above: Result Comment: [place] om Glucose Reference Range is dependent on time and content of last meal. Glucose of more than 200 mg/dL in a nonstressed, ambulatory subject supports the diagnosis of Diabetes Mellitus. PERFORMED BY: [place] [address] PATHOLOGIST MANDARIN SPEAKING NANNY BRANDEN WHATLEY M.D. Performed By: #### F E and TIBC, [id number], ODALIS #### [address] Haptoglobinon 08-31-2022 Haptoglobin 189 mg/dL Normal 44-215 [facility] Comment on above: Result Comment: PERF ORMED BY: [place] [address] PATHOLOGIST MANDARIN SPEAKING NANNY BRANDEN WHATLEY M.D. Performed By: #### G LULS #### Point of Care testing , Iron and TIBC Profileon 08-13 0 % Iron Saturation 27.5 % Normal 20-50 [facility] Comment on above: Performed By: #### F E and TIBC, [id number], ODALIS #### [facility] [address] Iron [Mass/Vol] 53 ug/dL Normal 50-212 [facility] Comment on above: Performed By: #### F E and TIBC, [id number], ODALIS #### [facility] [address] Total Iron Binding Capacity 193 ug/dL Low 255-450 [facility] Comment on above: Performed By: #### F E and TIBC, [id number], ODALIS #### [facility] [address] [place] [address] [place] Transferrin [Mass/Vol] 138 mg/dL Low 203-362 [facility] Comment on above: Performed By: #### F E and TIBC, [id number], ODALIS #### [facility] [address] [place] [address] LDH Lactate Dehydrogenaseon 08-31-2022 LDH Lactate Dehydrogenase 100 U/L Low 140-271 [facility] Comment on above: Result Comment: PERF ORMED BY: [place] [address] PATHOLOGIST MANDARIN SPEAKING NANNY BRANDEN WHATLEY M.D. Performed By: #### G LULS #### Point of Care testing , LeukoReduced RBCon 3 LeukoReduced RBC TRANSFUSED 08/31/22 1822 Normal [facility] Magnesiumon 08-31-2022 Magnesium [Mass/Vol] 1.2 mg/dL Low 1.9-2.7 [facility] Comment on above: Result Comment: PERF ORMED BY: [place] [address] PATHOLOGIST MANDARIN SPEAKING NANNY BRANDEN WHATLEY M.D. Performed By: #### F E and TIBC, [id number], ODALIS #### [address] Reticulocyte Counton 023 Reticulocyte Number 0.069 10*6/uL Normal 0.024-0.084 [facility] Comment on above: Result Comment: PERF ORMED BY: [place] [address] PATHOLOGIST MANDARIN SPEAKING NANNY BRANDEN WHATLEY M.D. Performed By: #### G LULS #### Point of Care testing , Reticulocyte Percent 2.7 % High 0.5-1.5 [facility] Comment on above: Performed By: #### G LULS #### Point of Care testing , Type and Screenon 08-31-2022 ABO and Rh group Nom (Bld) Blood group O Rh(D) negative Normal [facility] Comment on above: Order Comment: NEEDS DRAWN Result Comment: PERF ORMED BY: [place] [address] PATHOLOGIST MANDARIN SPEAKING NANNY BRANDEN WHATLEY M.D. Vit. B12/Folate Profileon Cobalamin (Vitamin B12) [Mass/Vol] 616 pg/mL Normal 180-914 [facility] Comment on above: Performed By: #### F E and TIBC, [id number], ODALIS #### [address] Folate 12.5 ng/mL Normal >5.9 [facility] Comment on above: Result Comment: Adrianna te reference range: >5.9 ng/ml The WHO technical consultation on folate and vitamin b12 deficiencies has determined that folate concentrations less than 4 ng/ml are considered deficient. PERFORMED BY: [place] [address] PATHOLOGIST MANDARIN SPEAKING NANNY BRANDEN WHATLEY M.D. Performed By: #### F E and TIBC, [id number], ODALIS #### [address] Blood Cultureon 08-30-2022 Bacteria identified Cx Nom (Bld) NO GROWTH 5 DAYS PERFORMED BY: [place] [address] PATHOLOGIST MANDARIN SPEAKING NANNY BRANDEN WHATLEY M.D. [facility] Comment on above: Performed By: #### G LULS #### Point of Care testing , Bacteria identified Cx Nom (Bld) NO GROWTH 5 DAYS PERFORMED BY: [place] [id number] PATHOLOGIST MANDARIN SPEAKING NANNY BRANDEN WHATLEY M.D. [facility] Comment on above: Performed By: #### G LULS #### Point of Care testing , CT abdomen pelvis wo conon 0 08-30-2022 CT abdomen pelvis wo con [facility] Main [place] [address] [place], [place] [id number] CT Scan Report Signed Patient: Matt Kelly MR#: [id number] : 1950 Acct:[id number] Age/Sex: 71 / M ADM Date: 08/30/22 Loc: ER Room: Type: [facility] ER Attending Dr: Copies to: Ragini [...] in decompressed urinary bladder. Impression dictated by: Eirk Larson M.D.08/30/2022 3:47 PM Dictation Location: [place] [address] Transcribed By: [facility] 08/30/22 1547 Dictated By: Erik Larson DO 08/30/22 1535 Signed By: 08/30/22 1547 Normal [facility] Complete Blood Count Auto Di ffon 08-30-2022 Basophils (Bld) [#/Vol] 0.1 10*3/uL Normal 0.0-0.2 [facility] Comment on above: Result Comment: PERF ORMED BY: [facility] [address] [place] [address] PATHOLOGIST MANDARIN SPEAKING NANNY BRANDEN WHATLEY M.D. Performed By: #### G LULS #### Point of Care testing , Basophils/100 WBC (Bld) 1.0 % Normal . [facility] Comment on above: Performed By: #### G LULS #### Point of Care testing , Eosinophils (Bld) [#/Vol] 0.4 10*3/uL Normal 0.0-0.45 [facility] Comment on above: Performed By: #### G LULS #### Point of Care testing , Eosinophils/100 WBC (Bld) 4.9 % Normal . [facility] Comment on above: Performed By: #### G LULS #### Point of Care testing , Erythrocyte distribution width (RBC) [Ratio] 14.7 % Normal 12.0-14.8 [facility] Comment on above: Performed By: #### Young FRANK #### Point of Care testing , Hematocrit (Bld) [Volume fraction] 24.2 % Low 38.8-50.0 [facility] Comment on above: Performed By: #### G ZAC #### Point of Care testing , Hemoglobin (Bld) [Mass/Vol] 8.0 g/dL Low 13.0-17.0 [facility] Comment on above: Performed By: #### G ZAC #### Point of Care testing , Lymphocytes (Bld) [#/Vol] 1.0 10*3/uL Normal 1.00-4.8 [facility] Comment on above: Performed By: #### G ZAC #### Point of Care testing , Lymphocytes/100 WBC (Bld) 13.4 % Normal . [facility] Comment on above: Performed By: #### Young RICHARDSLS #### Point of Care testing , MCH (RBC) [Entitic mass] 29.4 pg Normal 27.5-35.2 [facility] Comment on above: Performed By: #### Young FRANK #### Point of Care testing , MCV (RBC) [Entitic vol] 88.5 fL Normal 83.5-101 [facility] Comment on above: Performed By: #### G ZAC #### Point of Care testing , Mean Corpuscular HGB Conc 33.2 g/dL Normal 32.5-35.6 [facility] Comment on above: Performed By: #### G ZAC #### Point of Care testing , Monocytes (Bld) [#/Vol] 0.8 10*3/uL Normal 0.0-0.8 [facility] Comment on above: Performed By: #### Young RICHARDSLS #### Point of Care testing , Monocytes/100 WBC (Bld) 16.70 % Normal 0.00-20.00 [facility] Comment on above: Performed By: #### Young FRANK #### Point of Care testing , Monocytes/100 WBC (Bld) 10.1 % Normal . [facility] Comment on above: Performed By: #### Young FRANK #### Point of Care testing , Neutrophils (Bld) [#/Vol] 5.3 10*3/uL Normal 1.8-7.7 [facility] Comment on above: Performed By: #### Young RICHARDSLS #### Point of Care testing , Neutrophils/100 WBC (Bld) 70.6 % Normal . [facility] Comment on above: Performed By: #### G SUSIELS #### Point of Care testing , NRBC% 0.1 /100{WBC} Normal 0-0.5 [facility] Comment on above: Performed By: #### Young RICHARDSLS #### Point of Care testing , Platelet mean volume (Bld) [Entitic vol] 7.7 fL Normal 6.6-10.1 [facility] Comment on above: Performed By: #### Young RICHARDSLS #### Point of Care testing , Platelets (Bld) [#/Vol] 181 10*3/uL Normal 150-450 [facility] Comment on above: Performed By: #### Young FRANK #### Point of Care testing , RBC (Bld) [#/Vol] 2.73 10*6/uL Low 3.90-5.60 [facility] Comment on above: Performed By: #### Young RICHARDSLS #### Point of Care testing , WBC (Bld) [#/Vol] 7.4 10*3/uL Normal 4.1-10.5 [facility] Comment on above: Performed By: #### Young RICHARDSLS #### Point of Care testing , Comprehensive Metabolic Pane real 08-30-2022 Albumin [Mass/Vol] 2.9 g/dL Low 3.5-5.7 [facility] Comment on above: Performed By: #### Young RICHARDSLS #### Point of Care testing , Albumin/Globulin [Mass ratio] 0.8 {ratio} Normal [facility] Comment on above: Performed By: #### Young RICHARDSLS #### Point of Care testing , ALP [Catalytic activity/Vol] 105 U/L High 34-104 [facility] Comment on above: Performed By: #### G SUSIELS #### Point of Care testing , ALT [Catalytic activity/Vol] 31 U/L Normal 7-52 [facility] Comment on above: Performed By: #### G SUSIELS #### Point of Care testing , Anion gap [Moles/Vol] 14.3 mmol/L Normal 6.0-15.0 [facility] Comment on above: Performed By: #### G LULS #### Point of Care testing , AST [Catalytic activity/Vol] 14 U/L Normal 13-39 [facility] Comment on above: Performed By: #### G SUSIELS #### Point of Care testing , Bilirubin [Mass/Vol] 0.3 mg/dL Normal 0.3-1.0 [facility] Comment on above: Performed By: #### G SUSIELS #### Point of Care testing , Calcium [Mass/Vol] 8.9 mg/dL Normal 8.6-10.3 [facility] Comment on above: Performed By: #### G SUSIELS #### Point of Care testing , Chloride [Moles/Vol] 110 mmol/L High 98-107 [facility] Comment on above: Performed By: #### G SUSIELS #### Point of Care testing , CO2 [Moles/Vol] 17.6 mmol/L Low 21.0-31.0 [facility] Comment on above: Performed By: #### G SUSIELS #### Point of Care testing , Creatinine [Mass/Vol] 6.18 mg/dL High 0.70-1.30 [facility] Comment on above: Performed By: #### G SUSIELS #### Point of Care testing , Creatinine Clr Calc Pharmacy 16.08 [facility] Comment on above: Result Comment: PERF ORMED BY: [facility] [address] [place] [address] PATHOLOGIST MANDARIN SPEAKING NANNY BRANDEN WHATLEY M.D. Performed By: #### G SUSIELS #### Point of Care testing , GFR/1.73 sq M.predicted MDRD (S/P/Bld) [Vol rate/Area] 9.045 mL/min/{1.73_m2} [facility] Comment on above: Performed By: #### G SUSIELS #### Point of Care testing , Globulin (S) [Mass/Vol] 3.5 g/dL Normal [facility] Comment on above: Performed By: #### G LULS #### Point of Care testing , Glucose [Mass/Vol] 105 mg/dL High 70-100 [facility] Comment on above: Result Comment: [facility] Glucose Reference Range is dependent on time and content of last meal. Glucose of more than 200 mg/dL in a nonstressed, ambulatory subject supports the diagnosis of Diabetes Mellitus. ADA recommended reference range Performed By: #### G LULS #### Point of Care testing , Potassium [Moles/Vol] 4.9 mmol/L Normal 3.5-5.1 [facility] Comment on above: Performed By: #### G SUSIELS #### Point of Care testing , Protein [Mass/Vol] 6.4 g/dL Normal 6.4-8.9 [facility] Comment on above: Performed By: #### G SUSIELS #### Point of Care testing , Sodium [Moles/Vol] 137 mmol/L Normal 136-145 [facility] Comment on above: Performed By: #### G SUSIELS #### Point of Care testing , Urea nitrogen [Mass/Vol] 84 mg/dL High 7-25 [facility] Comment on above: Performed By: #### G SUSIELS #### Point of Care testing , Dipstick and Microscopicon 0 08-30-2022 Appearance (U) Turbid Critically abnormal Clear [facility] Comment on above: Order Comment: Name Collection Type:: Wooten Catheter Performed By: #### F E and TIBC, [id number], ODALIS #### [facility] [address] Bacteria,Urine 2+ High None Seen [facility] Comment on above: Order Comment: Name Collection Type:: Wooten Catheter Performed By: #### F E and TIBC, [id number], ODALIS #### [facility] [address] [place] [address] [place] Bilirubin,Urine Negative Normal Negative [facility] Comment on above: Order Comment: Name Collection Type:: Wooten Catheter Performed By: #### F E and TIBC, [id number], ODALIS #### [facility] [address] [place] [address] [place] Color (U) Yellow Normal Yellow [facility] Comment on above: Order Comment: Name Collection Type:: Wooten Catheter Performed By: #### F E and TIBC, [id number], ODALIS #### [facility] [address] Glucose Ql (U) 100 mg/dL High Normal [facility] Comment on above: Order Comment: Name Collection Type:: Wooten Catheter Performed By: #### F E and TIBC, [id number], ODALIS #### [place] [address] [place] Hyaline Casts,Urine None Seen Normal 0-1 [facility] Comment on above: Order Comment: Name Collection Type:: Wooten Catheter Performed By: #### F E and TIBC, [id number], ODALIS #### [address] Ketones Ql (U) Negative Normal Negative [facility] Comment on above: Order Comment: Name Collection Type:: Wooten Catheter Performed By: #### F E and TIBC, [id number], ODALIS #### [address] Leukocyte esterase Test strip Ql (U) 4+ High Negative [facility] Comment on above: Order Comment: Name Collection Type:: Wooten Catheter Performed By: #### F E and TIBC, [id number], ODALIS #### [place] [address] [place] Nitrite,Urine Positive High Negative [facility] Comment on above: Order Comment: Name Collection Type:: Wooten Catheter Performed By: #### F E and TIBC, [id number], ODALIS #### [address] Occult Blood,Urine 3+ High Negative [facility] Comment on above: Order Comment: Name Collection Type:: Wooten Catheter Result Comment: PERF ORMED BY: [place] [address] PATHOLOGIST MANDARIN SPEAKING NANNY BRANDEN WHATLEY M.D. Performed By: #### F E and TIBC, [id number], ODALIS #### [address] Other Casts,Urine None Seen Normal None Seen [facility] Comment on above: Order Comment: Name Collection Type:: Wooten Catheter Performed By: #### F E and TIBC, [id number], ODALIS #### [address] pH (U) 6.0 [pH] Normal 5.0-9.0 [facility] Comment on above: Order Comment: Name Collection Type:: Wooten Catheter Performed By: #### F E and TIBC, [id number], ODALIS #### [address] Protein (U) [Mass/Vol] 100 mg/dL High Negative [facility] Comment on above: Order Comment: Name Collection Type:: Wooten Catheter Performed By: #### F E and TIBC, [id number], ODALIS #### [facility] [address] [place] [address] [place] RBC,Urine 3-4 Normal 0-4 [facility] Comment on above: Order Comment: Name Collection Type:: Wooten Catheter Performed By: #### F E and TIBC, [id number], ODALIS #### [place] [address] [place] Specificy [place],Urine 1.011 Normal 1.001-1.030 [facility] Comment on above: Order Comment: Name Collection Type:: Wooten Catheter Performed By: #### F E and TIBC, [id number], ODALIS #### [facility] [address] Squamous Epithelial Cell,Urine 1-2 Normal 0-2 [facility] Comment on above: Order Comment: Name Collection Type:: Wooten Catheter Performed By: #### F E and TIBC, [id number], ODALIS #### [facility] [address] Urobilinogen,Urine Normal Normal Normal [facility] Comment on above: Order Comment: Name Collection Type:: Wooten Catheter Performed By: #### F E and TIBC, [id number], ODALIS #### [facility] [address] [place] [address] WBC,Urine Innumerable High 0-4 [facility] Comment on above: Order Comment: Name Collection Type:: Wooten Catheter Performed By: #### F E and TIBC, [id number], ODALIS #### [address] Yeast,Urine 2+ Critically abnormal None Seen [facility] Comment on above: Order Comment: Name Collection Type:: Wooten Catheter Result Comment: PERF ORMED BY: [place] [address] PATHOLOGIST MANDARIN SPEAKING NANNY BRANDEN WHATLEY M.D. Performed By: #### F E and TIBC, [id number], ODALIS #### [facility] [address] [place] [address] Glucose Poct Glucometerson 0 08-30-2022 Glucose [Mass/Vol] 148 mg/dL Normal [facility] Comment on above: Result Comment: [place] Glucose Reference Range is dependent on time and content of last meal. Glucose of more than 200 mg/dL in a nonstressed, ambulatory subject supports the diagnosis of Diabetes Mellitus. PERFORMED BY: [place] [address] PATHOLOGIST MANDARIN SPEAKING NANNY BRANDEN WHATLEY M.D. Performed By: #### G LULS #### Point of Care testing , Glucose [Mass/Vol] 100 mg/dL Normal [facility] Comment on above: Result Comment: [facility] Glucose Reference Range is dependent on time and content of last meal. Glucose of more than 200 mg/dL in a nonstressed, ambulatory subject supports the diagnosis of Diabetes Mellitus. PERFORMED BY: [place] [address] PATHOLOGIST MANDARIN SPEAKING NANNY BRANDEN WHATLEY M.D. Performed By: #### F E and TIBC, [id number], ODALIS #### [facility] [address] [place] [address] Urine Cultureon 08-30-2022 Bacteria identified Cx Nom (U) ORGANISM: Pseudomonas aeruginosa (O:PSEAER) [place] Count 30,000 Aerobic RONI Charge (NMIC56) ---- [...] RESISTANT TO ALL B-LACTAM DRUGS. PERFORMED BY: [address] [place] [address] PATHOLOGIST MANDARIN SPEAKING NANNY BRANDEN WHATLEY M.D. Normal [facility] Comment on above: Performed By: #### F E and TIBC, [id number], ODALIS #### [facility] [address] [place] [address] PRBC LEUKOREDUCEDon 04-06-20 23 PRBC LEUKOREDUCED Cross Match Result Compatible Unit Blood Type O Neg Unit Number [id number] Status Information Transfused Product ID Red Blood Cells Product Code [id number] [facility] Comment on above: Performed By: #### P OCGLUC #### [facility] [address] [place] [address] Dr. Dk Mahoney PRBC LEUKOREDUCED Cross Match Result Compatible Unit Blood Type O Neg Unit Number [id number] Status Information Transfused Product ID Red Blood Cells Product Code [id number] [facility] Comment on above: Performed By: #### P OCGLUC #### [facility] [address] [place] [address] Dr. Dk Mahoney CULTURE URINEon 07-09-2022 CULTURE [...] R F Levofloxacin >=8 R F Normal [facility] Comment on above: Performed By: #### P OCGLUC #### [facility] [address] [place] [address] Dr. Dk Mahoney PROTEIN ELECTROPHERESISon Albumin [Mass/Vol] 2.7 g/dL Critically low 2.9-4.4 [facility] Comment on above: Performed By: #### M G, CMP, PHOS #### [facility] [address] [place] [address] Dr. Dk Mahoney Albumin/Globulin [Mass ratio] 0.9 {ratio} Normal 0.7-1.7 [facility] Comment on above: Performed By: #### M G, CMP, PHOS #### [facility] [address] [place] [address] Dr. Dk Mahoney Jsmlb-9-Pckxutpz 0.2 g/dL Normal 0.0-0.4 [facility] Comment on above: Performed By: #### M G, CMP, PHOS #### [facility] [address] [place] [address] Dr. Dk Mahoney Aupig-7-Zbosdhfg 0.8 g/dL Normal 0.4-1.0 [facility] Comment on above: Performed By: #### M G, CMP, PHOS #### [facility] [address] [place] [address] Dr. Dk Mahoney Beta Globulin 1.0 g/dL Normal 0.7-1.3 [facility] Comment on above: Performed By: #### M G, CMP, PHOS #### [facility] [address] [place] [address] Dr. Dk Mahoney Gamma Globulin 1.1 g/dL Normal 0.4-1.8 [facility] Comment on above: Performed By: #### M G, CMP, PHOS #### [facility] [address] [place] [address] Dr. Dk Mahoney Globulin (S) [Mass/Vol] 3.1 g/dL Normal 2.2-3.9 [facility] Comment on above: Performed By: #### M G, CMP, PHOS #### [facility] [address] [place] [address] Dr. Dk Mahoney M-Primitivo Comment: Normal Not Observed [facility] Comment on above: Result Comment: SPE shows an asymmetrical gamma. Performed By: #### M G, CMP, PHOS #### [facility] [address] [place] [address] Dr. Dk Mahoney PDF . Normal [facility] Comment on above: Performed By: #### M G, CMP, PHOS #### [facility] [address] [place] [address] [address] Dk Mahoney Please note: Comment Normal [facility] Comment on above: Result Comment: Prot ein electrophoresis scan will follow via computer, mail, or supervising editor trailer delivery. Performed By: #### M G, CMP, PHOS #### [facility] [address] [place] [address] [address] Dk Mahoney Protein [Mass/Vol] 5.8 g/dL Critically low 6.0-8.5 [facility] Comment on above: Performed By: #### M G, CMP, PHOS #### [facility] [address] [place] [address] Dr. Dk Mahoney PROTEIN ELECTROPHERESIS URIN E RANDOMon 07-09-2022 Albumin, U 23.2 % Normal [facility] Comment on above: Performed By: #### M G, CMP, PHOS #### [facility] [address] [place] [address] Dr. Dk Mahoney Alpha-1 Globulin U 3.6 % Normal [facility] Comment on above: Performed By: #### M G, CMP, PHOS #### [facility] [address] [place] [address] Dr. Dk Mahoney Alpha-2 Glubulin U 19.7 % Normal [facility] Comment on above: Performed By: #### M G, CMP, PHOS #### [facility] [address] [place] [address] Dr. Dk Mahoney Beta Globulin, U 31.4 % Normal [facility] Comment on above: Performed By: #### M G, CMP, PHOS #### [facility] [address] [place] [address] Dr. Dk Mahoney Gamma Globulin U 22.1 % Normal [facility] Comment on above: Performed By: #### M G, CMP, PHOS #### [facility] [address] [place] [address] Dr. Dk Mahoney M-Primitivo, % Comment: Normal Not Observed [facility] Comment on above: Result Comment: UPE shows an asymmetrical beta. Performed By: #### M G, CMP, PHOS #### [facility] [address] [place] [address] Dr. Dk Mahoney PDF . Normal [facility] Comment on above: Performed By: #### M G, CMP, PHOS #### [facility] [address] [place] [address] Dr. Dk Mahoney Please note: Comment Normal [facility] Comment on above: Result Comment: Prot ein electrophoresis scan will follow via computer, mail, or supervising editor trailer delivery. Performed By: #### M Young, CMP, PHOS #### [facility] [address] [place] [address] Dr. Dk Mahoney Protein (U) [Mass/Vol] 34.7 mg/dL Normal Not Estab. [facility] Comment on above: Performed By: #### M G CMP, PHOS #### [facility] [address] [place] [address] Dr. Dk Mahoney CBC AUTO DIFFon 07-07-2022 BASO # 0.1 103/ul Normal 0.0-0.1 [facility] Comment on above: Performed By: #### M Young CMP, PHOS #### [facility] [address] [place] [address] Dr. Dk Mahoney Basophils/100 WBC (Bld) 0.9 % Normal 0.2-2.0 [facility] Comment on above: Performed By: #### M G, CMP, PHOS #### [facility] [address] [place] [address] Dr. Dk Mahoney EO # 0.2 103/ul Normal 0.0-0.7 [facility] Comment on above: Performed By: #### M G, CMP, PHOS #### [facility] [address] [place] [address] Dr. Dk Mahoney Eosinophils/100 WBC (Bld) 2.9 % Normal 0.9-7.0 [facility] Comment on above: Performed By: #### M G, CMP, PHOS #### [facility] [address] [place] [address] Dr. Dk Mahoney Erythrocyte distribution width (RBC) [Ratio] 15.0 % Normal 11.0-15.0 [facility] Comment on above: Performed By: #### M G, CMP, PHOS #### [facility] [address] [place] [address] Dr. Dk Mahoney Hematocrit (Bld) [Volume fraction] 24.4 % Critically low 42.0-54.0 [facility] Comment on above: Performed By: #### M G, CMP, PHOS #### [facility] [address] [place] [address] Dr. Dk Mahoney Hemoglobin (Bld) [Mass/Vol] 7.8 g/dL Critically low 14.0-18.0 [facility] Comment on above: Performed By: #### M G, CMP, PHOS #### [facility] [address] [place] [address] Dr. Dk Mahoney IG # 0.07 10e3/ul Critically high 0.00-0.03 [facility] Comment on above: Performed By: #### M G, CMP, PHOS #### [facility] [address] [place] [address] Dr. Dk Mahoney IG % 1.1 % Critically high 0.0-0.5 [facility] Comment on above: Performed By: #### M G, CMP, PHOS #### [facility] [address] [place] [address] Dr. Dk Mahoney LYMPH # 1.0 103/ul Critically low 1.2-3.8 [facility] Comment on above: Performed By: #### M G, CMP, PHOS #### [facility] [address] [place] [address] Dr. Dk Mahoney Lymphocytes/100 WBC (Bld) 15.4 % Critically low 20.5-60.0 [facility] Comment on above: Performed By: #### M G, CMP, PHOS #### [facility] [address] [place] [address] Dr. Dk Mahoney MANUAL DIFF REQ NO Normal [facility] Comment on above: Performed By: #### M G, CMP, PHOS #### [facility] [address] [place] [address] Dr. Dk Mahoney MCH (RBC) [Entitic mass] 29.3 pg Normal 25.9-34.0 [facility] Comment on above: Performed By: #### M G, CMP, PHOS #### [facility] [address] [address] [address] Dk Mahoney MCHC (RBC) [Mass/Vol] 32.0 g/dL Normal 29.9-35.2 [facility] Comment on above: Performed By: #### M G, CMP, PHOS #### [facility] [address] [place] [address] Dr. Dk Mahoney MCV (RBC) [Entitic vol] 91.7 fL Normal 80.0-94.0 [facility] Comment on above: Performed By: #### M G, CMP, PHOS #### [facility] [address] [place] [address] Dr. Dk Mahoney MONO # 0.6 103/ul Normal 0.3-0.8 [facility] Comment on above: Performed By: #### M G, CMP, PHOS #### [facility] [address] [place] [address] Dr. Dk Mahoney Monocytes/100 WBC (Bld) 9.2 % Normal 1.7-12.0 [facility] Comment on above: Performed By: #### M G, CMP, PHOS #### [facility] [address] [place] [address] Dr. Dk Mahoney NEUT # 4.6 103/ul Normal 1.4-6.5 [facility] Comment on above: Performed By: #### M G, CMP, PHOS #### [facility] [address] [place] [address] Dr. Dk Mahoney Neutrophils/100 WBC (Bld) 70.5 % Normal 43.0-75.0 [facility] Comment on above: Performed By: #### M Young, CMP, PHOS #### [facility] [address] [address] [address] Dk Mahoney Platelet mean volume (Bld) [Entitic vol] 10.1 fL Normal 9.5-13.5 [facility] Comment on above: Performed By: #### M Young, CMP, PHOS #### [facility] [address] [address] [address] Dk Mahoney PLT 172 103/ul Normal 150-450 [facility] Comment on above: Performed By: #### M G, CMP, PHOS #### [facility] [address] [place] [address] Dr. Dk Mahoney RBC 2.66 106/ul Critically low 4.70-6.10 [facility] Comment on above: Performed By: #### M Young, CMP, PHOS #### [facility] [address] [place] [address] Dr. Dk Mahoney WBC 6.5 103/ul Normal 4.0-11.0 [facility] Comment on above: Performed By: #### M Young, CMP, PHOS #### [facility] [address] [place] [address] Dr. Dk Mahoney MAGNESIUMon 07-07-2022 Magnesium [Mass/Vol] 1.4 mg/dL Critically low 1.8-2.4 [facility] Comment on above: Performed By: #### Rosmery Vidal CMP, PHOS #### [facility] [address] [place] [address] Dr. Dk Mahoney PHOSPHORUSon 07-07-2022 Phosphate [Mass/Vol] 5.9 mg/dL Critically high 2.6-4.7 [facility] Comment on above: Performed By: #### M Young, CMP, PHOS #### [facility] [address] [place] [address] Dr. Dk Mahoney POINT OF CARE GLUCOSEon 06-13 Glucose [Mass/Vol] 121 mg/dL Critically high 74-106 [facility] Comment on above: Performed By: #### Rosmery Vidal, CMP, PHOS #### [facility] [address] [address] [address] Dk Mahoney PROF 14(COMP METB)on 023 Albumin [Mass/Vol] 2.4 g/dL Critically low 3.4-5.0 [facility] Comment on above: Performed By: #### M G, CMP, PHOS #### [facility] [address] [address] [address] Dk Mahoney Albumin/Globulin [Mass ratio] 0.6 {ratio} Normal [facility] Comment on above: Performed By: #### M G, CMP, PHOS #### [facility] [address] [address] [address] Dk Mahoney ALP [Catalytic activity/Vol] 128 U/L Critically high 46-116 [facility] Comment on above: Performed By: #### M G, CMP, PHOS #### [facility] [address] [address] [address] Dk Mahoney ALT [Catalytic activity/Vol] 49 U/L Normal 16-63 [facility] Comment on above: Performed By: #### M G, CMP, PHOS #### [facility] [address] [address] [address] Dk Mahoney Anion gap [Moles/Vol] 16.3 mmol/L Normal [facility] Comment on above: Performed By: #### M G, CMP, PHOS #### [facility] [address] [address] [address] Dk Mahoney AST [Catalytic activity/Vol] 17 U/L Normal 15-37 [facility] Comment on above: Performed By: #### M G, CMP, PHOS #### [facility] [address] [address] [address] Dk Mahoney Bilirubin [Mass/Vol] 0.3 mg/dL Normal 0.2-1.0 [facility] Comment on above: Performed By: #### M G, CMP, PHOS #### [facility] [address] [address] [address] Dk Mahoney Calcium [Mass/Vol] 9.2 mg/dL Normal 8.5-10.1 [facility] Comment on above: Performed By: #### M SHIREEN Vidal, PHOS #### [facility] [address] [place] [address] Dr. Dk Mahoney Chloride [Moles/Vol] 105 mmol/L Normal 98-107 [facility] Comment on above: Performed By: #### Rosmery Vidal CMP, PHOS #### [facility] [address] [place] [address] Dr. Dk Mahoney CO2 [Moles/Vol] 20.3 mmol/L Critically low 21.0-32.0 [facility] Comment on above: Performed By: #### Rosmery Vidal CMP, PHOS #### [facility] [address] [place] [address] Dr. Dk Mahoney Creatinine [Mass/Vol] 5.59 mg/dL Critically high 0.70-1.30 [facility] Comment on above: Performed By: #### Rosmery Vidal CMP, PHOS #### [facility] [address] [place] [address] Dr. Dk Mahoney EGFR-AF VI[place] 12 mL/min/1.73m2 Critically low >=60 [facility] Comment on above: Performed By: #### Rosmery Vidal CMP, PHOS #### [facility] [address] [place] [address] Dr. Dk Mahoney EGFR-NON AF [place]ESE 10 mL/min/1.73m2 Critically low >=60 [facility] Comment on above: Performed By: #### Rosmery Vidal CMP, PHOS #### [facility] [address] [place] [address] Dr. Dk Mahoney Globulin (S) [Mass/Vol] 3.7 g/dL Normal [facility] Comment on above: Performed By: #### M Young CMP, PHOS #### [facility] [address] [place] [address] Dr. Dk Mahoney Glucose [Mass/Vol] 191 mg/dL Critically high 74-106 [facility] Comment on above: Performed By: #### Rosmery Vidal CMP, PHOS #### [facility] [address] [place] [address] Dr. Dk Mahoney Potassium [Moles/Vol] 4.5 mmol/L Normal 3.5-5.1 [facility] Comment on above: Performed By: #### M G, CMP, PHOS #### [facility] [address] [place] [address] Dr. Dk Mahoney Protein [Mass/Vol] 6.1 g/dL Critically low 6.4-8.2 [facility] Comment on above: Performed By: #### M G, CMP, PHOS #### [facility] [address] [place] [address] Dr. Dk Mahonye Sodium [Moles/Vol] 137 mmol/L Normal 136-145 [facility] Comment on above: Performed By: #### M G, CMP, PHOS #### [facility] [address] [place] [address] Dr. Dk Mahoney Urea nitrogen [Mass/Vol] 83.0 mg/dL Critically high 7.0-18.0 [facility] Comment on above: Performed By: #### M G, CMP, PHOS #### [facility] [address] [place] [address] Dr. Dk Mahoney Urea nitrogen/Creatinine [Mass ratio] 14.8 mg/mg Normal [facility] Comment on above: Performed By: #### M G, CMP, PHOS #### [facility] [address] [place] [address] Dr. Dk Mahoney CBC AUTO DIFFon 07-06-2022 BASO # 0.1 103/ul Normal 0.0-0.1 [facility] Comment on above: Performed By: #### M G, CMP, PHOS #### [facility] [address] [place] [address] Dr. Dk Mahoney Basophils/100 WBC (Bld) 0.9 % Normal 0.2-2.0 [facility] Comment on above: Performed By: #### M G, CMP, PHOS #### [facility] [address] [place] [address] Dr. Dk Mahoney EO # 0.2 103/ul Normal 0.0-0.7 [facility] Comment on above: Performed By: #### M G, CMP, PHOS #### [facility] [address] [place] [address] Dr. Dk Mahoney Eosinophils/100 WBC (Bld) 2.9 % Normal 0.9-7.0 [facility] Comment on above: Performed By: #### M G, CMP, PHOS #### [facility] [address] [place] [address] Dr. Dk Mahoney Erythrocyte distribution width (RBC) [Ratio] 15.0 % Normal 11.0-15.0 [facility] Comment on above: Performed By: #### M G, CMP, PHOS #### [facility] [address] [place] [address] Dr. Dk Mahoney Hematocrit (Bld) [Volume fraction] 24.2 % Critically low 42.0-54.0 [facility] Comment on above: Performed By: #### M G, CMP, PHOS #### [facility] [address] [place] [address] Dr. Dk Mahoney Hemoglobin (Bld) [Mass/Vol] 8.0 g/dL Critically low 14.0-18.0 [facility] Comment on above: Performed By: #### M G, CMP, PHOS #### [facility] [address] [place] [address] Dr. Dk Mahoney IG # 0.06 10e3/ul Critically high 0.00-0.03 [facility] Comment on above: Performed By: #### M G, CMP, PHOS #### [facility] [address] [place] [address] Dr. Dk Mahoney IG % 0.9 % Critically high 0.0-0.5 [facility] Comment on above: Performed By: #### M G, CMP, PHOS #### [facility] [address] [place] [address] Dr. Dk Mahoney LYMPH # 1.0 103/ul Critically low 1.2-3.8 [facility] Comment on above: Performed By: #### M G, CMP, PHOS #### [facility] [address] [address] [address] Dk Mahoney Lymphocytes/100 WBC (Bld) 14.6 % Critically low 20.5-60.0 [facility] Comment on above: Performed By: #### M G, CMP, PHOS #### [facility] [address] [address] [address] Dk Mahoney MANUAL DIFF REQ NO Normal [facility] Comment on above: Performed By: #### M G, CMP, PHOS #### [facility] [address] [place] [address] Dr. Dk Mahoney MCH (RBC) [Entitic mass] 30.4 pg Normal 25.9-34.0 [facility] Comment on above: Performed By: #### M G, CMP, PHOS #### [facility] [address] [place] [address] Dr. Dk Mahoney MCHC (RBC) [Mass/Vol] 33.1 g/dL Normal 29.9-35.2 [facility] Comment on above: Performed By: #### M G, CMP, PHOS #### [facility] [address] [place] [address] Dr. Dk Mahoney MCV (RBC) [Entitic vol] 92.0 fL Normal 80.0-94.0 [facility] Comment on above: Performed By: #### M G, CMP, PHOS #### [facility] [address] [place] [address] Dr. Dk Mahoney MONO # 0.7 103/ul Normal 0.3-0.8 [facility] Comment on above: Performed By: #### M G, CMP, PHOS #### [facility] [address] [place] [address] Dr. Dk Mahoney Monocytes/100 WBC (Bld) 11.1 % Normal 1.7-12.0 [facility] Comment on above: Performed By: #### M G, CMP, PHOS #### [facility] [address] [place] [address] Dr. Dk Mahoney NEUT # 4.5 103/ul Normal 1.4-6.5 [facility] Comment on above: Performed By: #### M Young CMP, PHOS #### [facility] [address] [address] [address] Dk Mahoney Neutrophils/100 WBC (Bld) 69.6 % Normal 43.0-75.0 [facility] Comment on above: Performed By: #### M Young CMP, PHOS #### [facility] [address] [place] [address] Dr. Dk Mahoney Platelet mean volume (Bld) [Entitic vol] 9.4 fL Critically low 9.5-13.5 [facility] Comment on above: Performed By: #### Rosmery Vidal CMP, PHOS #### [facility] [address] [place] [address] Dr. Dk Mahoney PLT 159 103/ul Normal 150-450 [facility] Comment on above: Performed By: #### M Young CMP, PHOS #### [facility] [address] [place] [address] Dr. Dk Mahoney RBC 2.63 106/ul Critically low 4.70-6.10 [facility] Comment on above: Performed By: #### M Young CMP, PHOS #### [facility] [address] [place] [address] Dr. Dk Mahoney WBC 6.5 103/ul Normal 4.0-11.0 [facility] Comment on above: Performed By: #### M Young CMP, PHOS #### [facility] [address] [place] [address] Dr. Dk Mahoney BASO # 0.0 103/ul Normal 0.0-0.1 [facility] Comment on above: Performed By: #### C BC #### [facility] [address] [place] [address] Dr. Dk Mahoney Basophils/100 WBC (Bld) 0.6 % Normal 0.2-2.0 [facility] Comment on above: Performed By: #### C BC #### [facility] [address] [address] [address] Dk Mahoney EO # 0.2 103/ul Normal 0.0-0.7 [facility] Comment on above: Performed By: #### C BC #### [facility] [address] [place] [address] Dr. Dk Mahoney Eosinophils/100 WBC (Bld) 3.2 % Normal 0.9-7.0 [facility] Comment on above: Performed By: #### C BC #### [facility] [address] [place] [address] Dr. Dk Mahoney Erythrocyte distribution width (RBC) [Ratio] 15.2 % Critically high 11.0-15.0 [facility] Comment on above: Performed By: #### C BC #### [facility] [address] [place] [address] Dr. Dk Mahoney Hematocrit (Bld) [Volume fraction] 21.4 % Critically low 42.0-54.0 [facility] Comment on above: Performed By: #### C BC #### [facility] [address] [place] [address] Dr. Dk Mahoney Hemoglobin (Bld) [Mass/Vol] 6.9 g/dL Critically low 14.0-18.0 [facility] Comment on above: Performed By: #### C BC #### [facility] [address] [place] [address] Dr. Dk Mahoney IG # 0.05 10e3/ul Critically high 0.00-0.03 [facility] Comment on above: Performed By: #### C BC #### [facility] [address] [place] [address] Dr. Dk Mahoney IG % 0.8 % Critically high 0.0-0.5 [facility] Comment on above: Performed By: #### C BC #### [facility] [address] [place] [address] Dr. Dk Mahoney LYMPH # 0.9 103/ul Critically low 1.2-3.8 [facility] Comment on above: Performed By: #### C BC #### [facility] [address] [place] [address] Dr. Dk Mahoney Lymphocytes/100 WBC (Bld) 13.8 % Critically low 20.5-60.0 [facility] Comment on above: Performed By: #### C BC #### [facility] [address] [place] [address] Dr. Dk Mahoney MANUAL DIFF REQ NO Normal [facility] Comment on above: Performed By: #### C BC #### [facility] [address] [place] [address] Dr. Dk Mahoney MCH (RBC) [Entitic mass] 29.9 pg Normal 25.9-34.0 [facility] Comment on above: Performed By: #### C BC #### [facility] [address] [place] [address] Dr. Dk Mahoney MCHC (RBC) [Mass/Vol] 32.2 g/dL Normal 29.9-35.2 [facility] Comment on above: Performed By: #### C BC #### [facility] [address] [place] [address] Dr. Dk Mahoney MCV (RBC) [Entitic vol] 92.6 fL Normal 80.0-94.0 [facility] Comment on above: Performed By: #### C BC #### [facility] [address] [place] [address] Dr. Dk Mahoney MONO # 0.8 103/ul Normal 0.3-0.8 [facility] Comment on above: Performed By: #### C BC #### [facility] [address] [place] [address] Dr. Dk Mahoney Monocytes/100 WBC (Bld) 11.4 % Normal 1.7-12.0 [facility] Comment on above: Performed By: #### C BC #### [facility] [address] [place] [address] Dr. Dk Mahoney NEUT # 4.6 103/ul Normal 1.4-6.5 [facility] Comment on above: Performed By: #### C BC #### [facility] [address] [address] [address] Dk Mahoney Neutrophils/100 WBC (Bld) 70.2 % Normal 43.0-75.0 [facility] Comment on above: Performed By: #### C BC #### [facility] [address] [place] [address] Dr. Dk Mahoney Platelet mean volume (Bld) [Entitic vol] 9.6 fL Normal 9.5-13.5 [facility] Comment on above: Performed By: #### C BC #### [facility] [address] [place] [address] Dr. Dk Mahoney PLT 163 103/ul Normal 150-450 [facility] Comment on above: Performed By: #### C BC #### [facility] [address] [place] [address] Dr. Dk Mahoney RBC 2.31 106/ul Critically low 4.70-6.10 [facility] Comment on above: Performed By: #### C BC #### [facility] [address] [place] [address] Dr. Dk Mahoney WBC 6.6 103/ul Normal 4.0-11.0 [facility] Comment on above: Performed By: #### C BC #### [facility] [address] [place] [address] Dr. Dk Mahoney FERRITINon 07-06-2022 Ferritin [Mass/Vol] 538.0 ng/mL Critically high 26.0-388.0 [facility] Comment on above: Performed By: #### M G, CMP, PHOS #### [facility] [address] [place] [address] Dr. Dk Mahoney IRON AND TIBCon 07-06-2022 % SATURATION 29.7 % Normal [facility] Comment on above: Performed By: #### M G, CMP, PHOS #### [facility] [address] [place] [address] Dr. Dk Mahoney Iron [Mass/Vol] 51.0 ug/dL Critically low 65.0-175.0 [facility] Comment on above: Performed By: #### M G, CMP, PHOS #### [facility] [address] [address] [address] Dk Mahoney TIBC DIRECT 172.0 ug/dL Critically low 250.0-450.0 [facility] Comment on above: Performed By: #### M Young CMP, PHOS #### [facility] [address] [address] [address] Dk Mahoney LDHon 07-06-2022 LDH 126 U/L Normal 85-227 [facility] Comment on above: Performed By: #### Rosmery Vidal CMP, PHOS #### [facility] [address] [address] [address] Dk Mahoney MAGNESIUMon 07-06-2022 Magnesium [Mass/Vol] 1.5 mg/dL Critically low 1.8-2.4 [facility] Comment on above: Performed By: #### Rosmery Vidal CMP, PHOS #### [facility] [address] [place] [address] Dr. Dk Mahoney PHOSPHORUSon 07-06-2022 Phosphate [Mass/Vol] 7.8 mg/dL Critically high 2.6-4.7 [facility] Comment on above: Performed By: #### Rosmery Vidal CMP, PHOS #### [facility] [address] [place] [address] Dr. Dk Mahoney POINT OF CARE GLUCOSEon 06-13 Glucose [Mass/Vol] 149 mg/dL Critically high 74-106 [facility] Comment on above: Performed By: #### Rosmery Vidal CMP, PHOS #### [facility] [address] [place] [address] Dr. Dk Mahoney Glucose [Mass/Vol] 145 mg/dL Critically high 74-106 [facility] Comment on above: Performed By: #### Rosmery Vidal CMP, PHOS #### [facility] [address] [place] [address] Dr. Dk Mahoney Glucose [Mass/Vol] 112 mg/dL Critically high 74-106 [facility] Comment on above: Performed By: #### Rosmery Vidal CMP, PHOS #### [facility] [address] [address] [address] Dk Mahoney Glucose [Mass/Vol] 133 mg/dL Critically high 74-106 [facility] Comment on above: Performed By: #### M G, CMP, PHOS #### [facility] [address] [address] [address] Dk Mahoney Glucose [Mass/Vol] 173 mg/dL Critically high 74-106 [facility] Comment on above: Performed By: #### P OCGLUC #### [facility] [address] [address] [address] Dk Mahoney PROF 14(COMP METB)on 023 Albumin [Mass/Vol] 2.4 g/dL Critically low 3.4-5.0 [facility] Comment on above: Performed By: #### M G, CMP, PHOS #### [facility] [address] [place] [address] Dr. Dk Mahoney Albumin/Globulin [Mass ratio] 0.6 {ratio} Normal [facility] Comment on above: Performed By: #### M G, CMP, PHOS #### [facility] [address] [address] [address] Dk Mahoney ALP [Catalytic activity/Vol] 133 U/L Critically high 46-116 [facility] Comment on above: Performed By: #### M G, CMP, PHOS #### [facility] [address] [address] [address] Dk Mahoney ALT [Catalytic activity/Vol] 58 U/L Normal 16-63 [facility] Comment on above: Performed By: #### M G, CMP, PHOS #### [facility] [address] [address] [address] Dk Mahoney Anion gap [Moles/Vol] 16.8 mmol/L Normal [facility] Comment on above: Performed By: #### M G, CMP, PHOS #### [facility] [address] [address] [address] Dk Mahoney AST [Catalytic activity/Vol] 20 U/L Normal 15-37 [facility] Comment on above: Performed By: #### M G, CMP, PHOS #### [facility] [address] [place] [address] Dr. Dk Mahoney Bilirubin [Mass/Vol] 0.2 mg/dL Normal 0.2-1.0 [facility] Comment on above: Performed By: #### M G, CMP, PHOS #### [facility] [address] [place] [address] Dr. Dk Mahoney Calcium [Mass/Vol] 9.0 mg/dL Normal 8.5-10.1 [facility] Comment on above: Performed By: #### M G, CMP, PHOS #### [facility] [address] [place] [address] Dr. Dk Mahoney Chloride [Moles/Vol] 107 mmol/L Normal 98-107 [facility] Comment on above: Performed By: #### M G, CMP, PHOS #### [facility] [address] [place] [address] Dr. Dk Mahoney CO2 [Moles/Vol] 18.2 mmol/L Critically low 21.0-32.0 [facility] Comment on above: Performed By: #### M G, CMP, PHOS #### [facility] [address] [place] [address] Dr. Dk Mahoney Creatinine [Mass/Vol] 5.80 mg/dL Critically high 0.70-1.30 [facility] Comment on above: Performed By: #### M G, CMP, PHOS #### [facility] [address] [place] [address] Dr. Dk Mahoney EGFR-AF VIET[place]ESE 12 mL/min/1.73m2 Critically low >=60 [facility] Comment on above: Performed By: #### M G, CMP, PHOS #### [facility] [address] [place] [address] Dr. Dk Mahoney EGFR-NON AF VIET[place]ESE 10 mL/min/1.73m2 Critically low >=60 [facility] Comment on above: Performed By: #### M G, CMP, PHOS #### [facility] [address] [place], [place] [id number] Dr. Dk Mahoney Globulin (S) [Mass/Vol] 3.9 g/dL Normal [facility] Comment on above: Performed By: #### M G, CMP, PHOS #### [facility] [address] [address] [address] Dk Mahoney Glucose [Mass/Vol] 108 mg/dL Critically high 74-106 [facility] Comment on above: Performed By: #### M G, CMP, PHOS #### [facility] [address] [address] [address] Dk Mahoney Potassium [Moles/Vol] 5.0 mmol/L Normal 3.5-5.1 [facility] Comment on above: Performed By: #### M G, CMP, PHOS #### [facility] [address] [address] [address] Dk Mahoney Protein [Mass/Vol] 6.3 g/dL Critically low 6.4-8.2 [facility] Comment on above: Performed By: #### M G, CMP, PHOS #### [facility] [address] [address] [address] Dk Mahoney Sodium [Moles/Vol] 137 mmol/L Normal 136-145 [facility] Comment on above: Performed By: #### M G, CMP, PHOS #### [facility] [address] [address] [address] Dk Mahoney Urea nitrogen [Mass/Vol] 83.0 mg/dL Critically high 7.0-18.0 [facility] Comment on above: Performed By: #### M G, CMP, PHOS #### [facility] [address] [address] [address] Dk Mahoney Urea nitrogen/Creatinine [Mass ratio] 14.3 mg/mg Normal [facility] Comment on above: Performed By: #### M G, CMP, PHOS #### [facility] [address] [address] [address] Dk Mahoney RETICULOCYTEon 07-06-2022 RETIC 4.20 % Critically high 0.60-3.10 [facility] Comment on above: Performed By: #### M G, CMP, PHOS #### [facility] [address] [place] [address] Dr. Dk Mahoney TYPE AND SCREENon 07-06-2022 TYPE AND SCREEN Negative Normal [facility] Comment on above: Performed By: #### P OCGLUC #### [facility] [address] [place] [address] Dr. Dk Mahoney URIC ACID SERUMon 07-06-2022 Urate [Mass/Vol] 6.1 mg/dL Normal 3.5-7.2 [facility] Comment on above: Performed By: #### M Young CMP, PHOS #### [facility] [address] [place] [address] Dr. Dk Mahoney VIT B12 AND FOLATEon 023 Cobalamin (Vitamin B12) [Mass/Vol] 686.0 pg/mL Normal 193.0-986.0 [facility] Comment on above: Performed By: #### P OCGLUC #### [facility] [address] [place] [address] Dr. Dk Mahoney FOLATE 15.50 ng/mL Normal 8.60-58.90 [facility] Comment on above: Performed By: #### P OCGLUC #### [facility] [address] [place] [address] Dr. Dk Mahoney CBC AUTO DIFFon 07-05-2022 BASO # 0.1 103/ul Normal 0.0-0.1 [facility] Comment on above: Performed By: #### M G, CMP, PHOS #### [facility] [address] [place] [address] Dr. Dk Mahoney Basophils/100 WBC (Bld) 0.7 % Normal 0.2-2.0 [facility] Comment on above: Performed By: #### M G, CMP, PHOS #### [facility] [address] [place] [address] Dr. Dk Mahoney EO # 0.2 103/ul Normal 0.0-0.7 [facility] Comment on above: Performed By: #### M G, CMP, PHOS #### [facility] [address] [place] [address] Dr. Dk Mahoney Eosinophils/100 WBC (Bld) 3.1 % Normal 0.9-7.0 [facility] Comment on above: Performed By: #### M Young CMP, PHOS #### [facility] [address] [place] [address] Dr. Dk Mahoney Erythrocyte distribution width (RBC) [Ratio] 15.4 % Critically high 11.0-15.0 [facility] Comment on above: Performed By: #### M Young CMP, PHOS #### [facility] [address] [place] [address] Dr. Dk Mahoney Hematocrit (Bld) [Volume fraction] 23.9 % Critically low 42.0-54.0 [facility] Comment on above: Performed By: #### Rosmery Vidal CMP, PHOS #### [facility] [address] [place] [address] Dr. Dk Mahoney Hemoglobin (Bld) [Mass/Vol] 7.7 g/dL Critically low 14.0-18.0 [facility] Comment on above: Performed By: #### Rosmery Vidal CMP, PHOS #### [facility] [address] [place] [address] Dr. Dk Mahoney IG # 0.05 10e3/ul Critically high 0.00-0.03 [facility] Comment on above: Performed By: #### Rosmery Vidal CMP, PHOS #### [facility] [address] [place] [address] Dr. Dk Mahoney IG % 0.7 % Critically high 0.0-0.5 [facility] Comment on above: Performed By: #### M Young CMP, PHOS #### [facility] [address] [place] [address] Dr. Dk Mahoney LYMPH # 1.0 103/ul Critically low 1.2-3.8 [facility] Comment on above: Performed By: #### M Young CMP, PHOS #### [facility] [address] [place], [place] [id number] Dr. Dk Mahoney Lymphocytes/100 WBC (Bld) 12.8 % Critically low 20.5-60.0 [facility] Comment on above: Performed By: #### M G, CMP, PHOS #### [facility] [address] [place] [address] Dr. Dk Mahoney MANUAL DIFF REQ NO Normal [facility] Comment on above: Performed By: #### M G, CMP, PHOS #### [facility] [address] [place] [address] Dr. Dk Mahoney MCH (RBC) [Entitic mass] 30.0 pg Normal 25.9-34.0 [facility] Comment on above: Performed By: #### M G, CMP, PHOS #### [facility] [address] [place] [address] Dr. Dk Mahoney MCHC (RBC) [Mass/Vol] 32.2 g/dL Normal 29.9-35.2 [facility] Comment on above: Performed By: #### M G, CMP, PHOS #### [facility] [address] [place] [address] Dr. Dk Mahoney MCV (RBC) [Entitic vol] 93.0 fL Normal 80.0-94.0 [facility] Comment on above: Performed By: #### M G, CMP, PHOS #### [facility] [address] [place] [address] Dr. Dk Mahoney MONO # 0.8 103/ul Normal 0.3-0.8 [facility] Comment on above: Performed By: #### M G, CMP, PHOS #### [facility] [address] [place] [address] Dr. Dk Mahoney Monocytes/100 WBC (Bld) 10.2 % Normal 1.7-12.0 [facility] Comment on above: Performed By: #### M G, CMP, PHOS #### [facility] [address] [place] [address] Dr. Dk Mahoney NEUT # 5.6 103/ul Normal 1.4-6.5 [facility] Comment on above: Performed By: #### M G, CMP, PHOS #### [facility] [address] [address] [address] Dk Mahoney Neutrophils/100 WBC (Bld) 72.5 % Normal 43.0-75.0 [facility] Comment on above: Performed By: #### M G, CMP, PHOS #### [facility] [address] [address] [address] Dk Mahoney Platelet mean volume (Bld) [Entitic vol] 9.8 fL Normal 9.5-13.5 [facility] Comment on above: Performed By: #### M G, CMP, PHOS #### [facility] [address] [place] [address] Dr. Dk Mahoney PLT 203 103/ul Normal 150-450 [facility] Comment on above: Performed By: #### M G, CMP, PHOS #### [facility] [address] [address] [address] Dk Mahoney RBC 2.57 106/ul Critically low 4.70-6.10 [facility] Comment on above: Performed By: #### M G, CMP, PHOS #### [facility] [address] [place] [address] Dr. Dk Mahoney WBC 7.7 103/ul Normal 4.0-11.0 [facility] Comment on above: Performed By: #### M G, CMP, PHOS #### [facility] [address] [place] [address] ABD/PELVIS WO CONon [...] MARQUES AMAYA Date: 2022-07-05 18:21 Normal [facility] Covid-19 PCR ([facility])on 06-13 SARS-CoV-2 (COVID-19) RNA JASON+probe Ql (Unsp spec) Not detected Normal NOT DETECTED [facility] Comment on above: Result Comment: When [...] for this test is supported by the [employer] of Health and Human Service's declaration that [...] used). Performed By: #### C BC #### [facility] [address] [place] [address] Dr. Dk Mahoney ER URINE PROFILEon 3 Bilirubin Ql (U) Negative Normal NEGATIVE [facility] Comment on above: Performed By: #### M G CMP, PHOS #### [facility] [address] [place] [address] Dr. Dk Mahoney Clarity (U) CLEAR Normal CLEAR [facility] Comment on above: Performed By: #### M Young CMP, PHOS #### [facility] [address] [place] [address] Dr. Dk Mahoney Color (U) YELLOW Normal YELLOW [facility] Comment on above: Performed By: #### M G CMP, PHOS #### [facility] [address] [place] [address] Dr. Dk Mahoney ERUAHD A micrscopic examination will be performed if indicated. Normal [facility] Comment on above: Performed By: #### M G, CMP, PHOS #### [facility] [address] [place] [address] Dr. Dk Mahoney Glucose Ql (U) 100 mg/dl Abnormal NEGATIVE [facility] Comment on above: Performed By: #### M G, CMP, PHOS #### [facility] [address] [place] [address] Dr. Dk Mahoney Hemoglobin Ql (U) MODERATE Abnormal NEGATIVE [facility] Comment on above: Performed By: #### M G, CMP, PHOS #### [facility] [address] [place] [address] Dr. Dk Mahoney Ketones Ql (U) Negative Normal NEGATIVE [facility] Comment on above: Performed By: #### M G, CMP, PHOS #### [facility] [address] [place] [address] Dr. Dk Mahoney LEUKOCYTES LARGE Abnormal NEGATIVE [facility] Comment on above: Performed By: #### M G, CMP, PHOS #### [facility] [address] [address] [address] Dk Mahoney Nitrite Ql (U) Negative Normal NEGATIVE [facility] Comment on above: Performed By: #### M G, CMP, PHOS #### [facility] [address] [place] [address] Dr. Dk Mahoney pH (U) 7.0 [pH] Normal 5-9 [facility] Comment on above: Performed By: #### M G, CMP, PHOS #### [facility] [address] [place] [address] Dr. Dk Mahoney Protein (U) [Mass/Vol] 30 mg/dL Abnormal NEGATIVE/ TRACE [facility] Comment on above: Performed By: #### M G, CMP, PHOS #### [facility] [address] [place] [address] Dr. Dk Mahoney SPEC GRAVITY 1.010 Normal 1.005-<=1.02 5 [facility] Comment on above: Performed By: #### M G, CMP, PHOS #### [facility] [address] [place] [address] Dr. Dk Mahoney UR MICRO IND INDICATED Normal [facility] Comment on above: Performed By: #### M G, CMP, PHOS #### [facility] [address] [place] [address] Dr. kD Mahoney Urobilinogen Qn (U) 0.2 {Ramiro'U}/dL Normal 0.2 - 1. 0 [facility] Comment on above: Performed By: #### M G, CMP, PHOS #### [facility] [address] [address] [address] Dk Mahoney PROF 14(COMP METB)on 023 Albumin [Mass/Vol] 2.7 g/dL Critically low 3.4-5.0 [facility] Comment on above: Performed By: #### C BC #### [facility] [address] [place] [address] Dr. Dk Mahoney Albumin/Globulin [Mass ratio] 0.6 {ratio} Normal [facility] Comment on above: Performed By: #### C BC #### [facility] [address] [place] [address] Dr. Dk Mahoney ALP [Catalytic activity/Vol] 148 U/L Critically high 46-116 [facility] Comment on above: Performed By: #### C BC #### [facility] [address] [place] [address] Dr. Dk Mahoney ALT [Catalytic activity/Vol] 70 U/L Critically high 16-63 [facility] Comment on above: Performed By: #### C BC #### [facility] [address] [place] [address] Dr. Dk Mahoney Anion gap [Moles/Vol] 16.7 mmol/L Normal [facility] Comment on above: Performed By: #### C BC #### [facility] [address] [place] [address] Dr. Dk Mahoney AST [Catalytic activity/Vol] 26 U/L Normal 15-37 [facility] Comment on above: Performed By: #### C BC #### [facility] [address] [place] [address] Dr. Dk Mahoney Bilirubin [Mass/Vol] 0.4 mg/dL Normal 0.2-1.0 [facility] Comment on above: Performed By: #### C BC #### [facility] [address] [place] [address] Dr. Dk Mahoney Calcium [Mass/Vol] 9.2 mg/dL Normal 8.5-10.1 [facility] Comment on above: Performed By: #### C BC #### [facility] [address] [address] [address] Dk Mahoney Chloride [Moles/Vol] 105 mmol/L Normal 98-107 [facility] Comment on above: Performed By: #### C BC #### [facility] [address] [address] [address] Dk Mahoney CO2 [Moles/Vol] 18.1 mmol/L Critically low 21.0-32.0 [facility] Comment on above: Performed By: #### C BC #### [facility] [address] [address] [address] Dk Mahoney Creatinine [Mass/Vol] 5.81 mg/dL Critically high 0.70-1.30 [facility] Comment on above: Performed By: #### C BC #### [facility] [address] [place] [address] Dr. Dk Mahoney EGFR-AF VI[place] 12 mL/min/1.73m2 Critically low >=60 [facility] Comment on above: Performed By: #### C BC #### [facility] [address] [address] [address] Dk Mahoney EGFR-NON AF [place] 10 mL/min/1.73m2 Critically low >=60 [facility] Comment on above: Performed By: #### C BC #### [facility] [address] [address] [address] Dk Mahoney Globulin (S) [Mass/Vol] 4.3 g/dL Normal [facility] Comment on above: Performed By: #### C BC #### [facility] [address] [address] [address] Dk Mahoney Glucose [Mass/Vol] 138 mg/dL Critically high 74-106 [facility] Comment on above: Performed By: #### C BC #### [facility] [address] [address] [address] Dk Mahoney Potassium [Moles/Vol] 4.8 mmol/L Normal 3.5-5.1 [facility] Comment on above: Performed By: #### C BC #### [facility] [address] [address] [address] Dk Mahoney Protein [Mass/Vol] 7.0 g/dL Normal 6.4-8.2 [facility] Comment on above: Performed By: #### C BC #### [facility] [address] [address] [address] Dk Mahoney Sodium [Moles/Vol] 135 mmol/L Critically low 136-145 [facility] Comment on above: Performed By: #### C BC #### [facility] [address] [address] [address] Dk Mahoney Urea nitrogen [Mass/Vol] 83.0 mg/dL Critically high 7.0-18.0 [facility] Comment on above: Performed By: #### C BC #### [facility] [address] [address] [address] Dk Mahoney Urea nitrogen/Creatinine [Mass ratio] 14.3 mg/mg Normal [facility] Comment on above: Performed By: #### C BC #### [facility] [address] [address] [address] Dk Mahoney TROPONIN, HIGH SENSITIVITYon 07-05-2022 HSTROP 21.4 pg/mL Normal 4.0-76.1 [facility] Comment on above: Result Comment: CUT- OFF POINTS HAVE BEEN ESTABLISHED BASED ON THE FOURTH UNIVERSAL DEFINITIONS OF MYOCARDIAL INFARCTION. THE UPPER REFERENCE LIMIT (URL) OF TROPONIN, DEFINED THE 99TH PERCENTILE OF cTnI DISTRIBUTION IN A REFERENCE POPULATION, HAS BEEN CONFIRMED THE DECISION THRESHOLD FOR [place] DIAGNOSIS. Performed By: #### C BC #### [facility] [address] [address] [address] Dk Mahoney URINE MICROSCOPIC ONLYon BACTERIA MODERATE Abnormal NONE SEEN [facility] Comment on above: Performed By: #### M G, CMP, PHOS #### [facility] [address] [id number] [address] Dk Mahoney Bacteria identified Cx Nom (U) INDICATED Normal [facility] Comment on above: Performed By: #### M G, CMP, PHOS #### [facility] [address] [place] [address] Dr. Dk Mahoney CAST NONE SEEN Normal NONE SEEN [facility] Comment on above: Performed By: #### M G, CMP, PHOS #### [facility] [address] [place] [address] Dr. Dk Mahoney Crystals LM Nom (Urine sed) NONE SEEN Normal NONE SEEN [facility] Comment on above: Performed By: #### M G, CMP, PHOS #### [facility] [address] [place] [address] Dr. Dk Mahoney Epithelial cells LM Ql (Urine sed) FEW Abnormal NONE SEEN /RARE [facility] Comment on above: Performed By: #### M G, CMP, PHOS #### [facility] [address] [place] [address] Dr. Dk Mahoney MUCOUS NONE SEEN Normal NONE SEEN [facility] Comment on above: Performed By: #### M G, CMP, PHOS #### [facility] [address] [place] [address] Dr. Dk Mahoney RBC 10-20 Abnormal 0-2 [facility] Comment on above: Performed By: #### M G, CMP, PHOS #### [facility] [address] [place] [address] Dr. Dk Mahoney WBC 75-100 Abnormal NONE SEEN [facility] Comment on above: Performed By: #### M G, CMP, PHOS #### [facility] [address] [place] [address] Dr. Dk Mahoney YEAST PRESENT Abnormal NONE SEEN [facility] Comment on above: Performed By: #### M G, CMP, PHOS #### [facility] [address] [place] [address] Dr. Dk Mahoney PRBC LEUKOREDUCEDon 05-11-19 23 PRBC LEUKOREDUCED Cross Match Result Compatible Unit Blood Type O Neg Unit Number [id number] Status Information Transfused Product ID Red Blood Cells Product Code [id number] Normal [facility] Comment on above: Performed By: #### P RBC #### [facility] [address] [place] [address] Dr. Dk Mahoney ABO AND RH TYPEon 05-04-2022 ABO and Rh group Nom (Bld) ABO Rh Typing O Rh Negative Normal [facility] Comment on above: Performed By: #### A NOE TNS #### [facility] [address] [place] [address] Dr. Dk Mahoney BNPon 05-04-2022 Natriuretic peptide B (Bld) [Mass/Vol] 21504.0 pg/mL Critically high <=900.0 [facility] Comment on above: Performed By: #### M G, CMP, PHOS #### [facility] [address] [place] [address] Dr. Dk Mahoney CBC AUTO DIFFon 05-04-2022 BASO # 0.1 103/ul Normal 0.0-0.1 [facility] Comment on above: Performed By: #### M G, CMP, PHOS #### [facility] [address] [place] [address] Dr. Dk Mahoney Basophils/100 WBC (Bld) 0.7 % Normal 0.2-2.0 [facility] Comment on above: Performed By: #### M G, CMP, PHOS #### [facility] [address] [place] [address] Dr. Dk Mahoney EO # 0.3 103/ul Normal 0.0-0.7 [facility] Comment on above: Performed By: #### M G, CMP, PHOS #### [facility] [address] [place] [address] Dr. Dk Mahoney Eosinophils/100 WBC (Bld) 4.4 % Normal 0.9-7.0 [facility] Comment on above: Performed By: #### M G, CMP, PHOS #### [facility] [address] [place] [address] Dr. Dk Mahoney Erythrocyte distribution width (RBC) [Ratio] 15.4 % Critically high 11.0-15.0 [facility] Comment on above: Performed By: #### M G, CMP, PHOS #### [facility] [address] [place] [address] Dr. Dk Mahoney Hematocrit (Bld) [Volume fraction] 21.6 % Critically low 42.0-54.0 [facility] Comment on above: Performed By: #### M G, CMP, PHOS #### [facility] [address] [place] [address] Dr. Dk Mahoney Hemoglobin (Bld) [Mass/Vol] 7.4 g/dL Critically low 14.0-18.0 [facility] Comment on above: Performed By: #### M G, CMP, PHOS #### [facility] [address] [place] [address] Dr. Dk Mahoney IG # 0.03 10e3/ul Normal 0.00-0.03 [facility] Comment on above: Performed By: #### M G, CMP, PHOS #### [facility] [address] [place] [address] Dr. Dk Mahoney IG % 0.4 % Normal 0.0-0.5 [facility] Comment on above: Performed By: #### M G, CMP, PHOS #### [facility] [address] [place] [address] Dr. Dk Mahoney LYMPH # 0.9 103/ul Critically low 1.2-3.8 [facility] Comment on above: Performed By: #### M G, CMP, PHOS #### [facility] [address] [place] [address] Dr. Dk Mahoney Lymphocytes/100 WBC (Bld) 13.8 % Critically low 20.5-60.0 [facility] Comment on above: Performed By: #### M G, CMP, PHOS #### [facility] [address] [place] [address] Dr. Dk Mahoney MANUAL DIFF REQ NO Normal [facility] Comment on above: Performed By: #### M G, CMP, PHOS #### [facility] [address] [place] [address] Dr. Dk Mahoney MCH (RBC) [Entitic mass] 28.4 pg Normal 25.9-34.0 [facility] Comment on above: Performed By: #### M G, CMP, PHOS #### [facility] [address] [place] [address] Dr. Dk Mahoney MCHC (RBC) [Mass/Vol] 34.3 g/dL Normal 29.9-35.2 [facility] Comment on above: Performed By: #### M G, CMP, PHOS #### [facility] [address] [place] [address] Dr. Dk Mahoney MCV (RBC) [Entitic vol] 82.8 fL Normal 80.0-94.0 [facility] Comment on above: Performed By: #### M G, CMP, PHOS #### [facility] [address] [place] [address] Dr. Dk Mahoney MONO # 0.6 103/ul Normal 0.3-0.8 [facility] Comment on above: Performed By: #### M G, CMP, PHOS #### [facility] [address] [place] [address] Dr. Dk Mahoney Monocytes/100 WBC (Bld) 8.8 % Normal 1.7-12.0 [facility] Comment on above: Performed By: #### M G, CMP, PHOS #### [facility] [address] [place] [address] Dr. Dk Mahoney NEUT # 4.9 103/ul Normal 1.4-6.5 [facility] Comment on above: Performed By: #### M G, CMP, PHOS #### [facility] [address] [place] [address] Dr. Dk Mahoney Neutrophils/100 WBC (Bld) 71.9 % Normal 43.0-75.0 [facility] Comment on above: Performed By: #### M G, CMP, PHOS #### [facility] [address] [place] [address] Dr. Dk Mahoney Platelet mean volume (Bld) [Entitic vol] 9.3 fL Critically low 9.5-13.5 [facility] Comment on above: Performed By: #### M G, CMP, PHOS #### [facility] [address] [address] [address] Dk Mahoney PLT 178 103/ul Normal 150-450 [facility] Comment on above: Performed By: #### M SHIREEN Vidal, PHOS #### [facility] [address] [address] [address] Dk Mahoney RBC 2.61 106/ul Critically low 4.70-6.10 [facility] Comment on above: Performed By: #### M SHIREEN Vidal, PHOS #### [facility] [address] [address] [address] Dk Mahoney WBC 6.8 103/ul Normal 4.0-11.0 [facility] Comment on above: Performed By: #### M SHIREEN Vidal PHOS #### [facility] [address] [place] [address] Dr. Dk Mahoney Covid-19 PCR ([facility])on 04-15 SARS-CoV-2 (COVID-19) RNA JASON+probe Ql (Unsp spec) Not detected Normal NOT DETECTED [facility] Comment on above: Result Comment: When [...] for this test is supported by the [place] of [employer] and Human Service's declaration that [...] used). Performed By: #### P OCGLUC #### [facility] [address] [address] [address] Dk Mahoney PROF CHEM 8 (BAS METB)on 01- 21-2023 Anion gap [Moles/Vol] 14.7 mmol/L Normal [facility] Comment on above: Performed By: #### M Young CMP, PHOS #### [facility] [address] [address] [address] Dk Mahoney Calcium [Mass/Vol] 9.3 mg/dL Normal 8.5-10.1 [facility] Comment on above: Performed By: #### M Young CMP, PHOS #### [facility] [address] [address] [address] Dk Mahoney Chloride [Moles/Vol] 109 mmol/L Critically high 98-107 [facility] Comment on above: Performed By: #### M Young CMP, PHOS #### [facility] [address] [address] [address] Dk Mahoney CO2 [Moles/Vol] 21.3 mmol/L Normal 21.0-32.0 [facility] Comment on above: Performed By: #### Rosmery Vidal CMP, PHOS #### [facility] [address] [place] [address] Dr. Dk Mahoney Creatinine [Mass/Vol] 4.61 mg/dL Critically high 0.70-1.30 [facility] Comment on above: Performed By: #### Rosmery Vidal CMP, PHOS #### [facility] [address] [place] [address] Dr. Dk Mahoney EGFR-AF VIET[place]ESE 15 mL/min/1.73m2 Critically low >=60 [facility] Comment on above: Performed By: #### M Young, CMP, PHOS #### [facility] [address] [address] [address] Dk Mahoney EGFR-NON AF VI[place]ESE 13 mL/min/1.73m2 Critically low >=60 [facility] Comment on above: Performed By: #### M Young, CMP, PHOS #### [facility] [address] [address] [address] Dk Mahoney Glucose [Mass/Vol] 200 mg/dL Critically high 74-106 [facility] Comment on above: Performed By: #### M Young, CMP, PHOS #### [facility] [address] [address] [address] Dk Mahoney Potassium [Moles/Vol] 5.0 mmol/L Normal 3.5-5.1 [facility] Comment on above: Performed By: #### M G, CMP, PHOS #### [facility] [address] [address] [address] Dk Mahoney Sodium [Moles/Vol] 140 mmol/L Normal 136-145 [facility] Comment on above: Performed By: #### M G, CMP, PHOS #### [facility] [address] [address] [address] Dk Mahoney Urea nitrogen [Mass/Vol] 64.0 mg/dL Critically high 7.0-18.0 [facility] Comment on above: Performed By: #### M G, CMP, PHOS #### [facility] [address] [address] [address] Dk Mahoney Urea nitrogen/Creatinine [Mass ratio] 13.9 mg/mg Normal [facility] Comment on above: Performed By: #### M G, CMP, PHOS #### [facility] [address] [address] [address] Dk Mahoney TROPONIN, HIGH SENSITIVITYon 05-04-2022 HSTROP 29.4 pg/mL Normal 4.0-76.1 [facility] Comment on above: Result Comment: CUT- OFF POINTS HAVE BEEN ESTABLISHED BASED ON THE FOURTH UNIVERSAL DEFINITIONS OF MYOCARDIAL INFARCTION. THE UPPER REFERENCE LIMIT (URL) OF TROPONIN, DEFINED THE 99TH PERCENTILE OF cTnI DISTRIBUTION IN A REFERENCE POPULATION, HAS BEEN CONFIRMED THE DECISION THRESHOLD FOR [place] DIAGNOSIS. Performed By: #### M G, CMP, PHOS #### [facility] [address] [address] [address] Dk Mahoney TYPE AND SCREENon 05-04-2022 TYPE AND SCREEN Negative Normal [facility] Comment on above: Performed By: #### A NOE, TNS #### [facility] [address] [address] [address] Dk Mahoney US ROWAN DOP LEG LTon 01-21-20 23 US ROWAN DOP LEG LT EXAM: [...] by: ROBERTO HEBERT Date: 2022-05-04 14:33 Normal [facility] PRBC LEUKOREDUCEDon 04-29-19 PRBC LEUKOREDUCED Cross Match Result Compatible Unit Blood Type O Neg Unit Number [id number] Status Information Transfused Product ID Red Blood Cells Product Code [id number] Normal [facility] Comment on above: Performed By: #### P RBC #### [facility] [address] [place] [address] Dr. Dk Mahoney ABO RH RETYPEon 04-19-2022 ABO and Rh group Nom (Bld) DONE Normal [facility] Comment on above: Performed By: #### M G, CMP, PHOS #### [facility] [address] [place] [address] Dr. Dk Mahoney CBC AUTO DIFFon 04-19-2022 BASO # 0.1 103/ul Normal 0.0-0.1 [facility] Comment on above: Performed By: #### M G, CMP, PHOS #### [facility] [address] [place] [address] Dr. Dk Mahoney Basophils/100 WBC (Bld) 0.8 % Normal 0.2-2.0 [facility] Comment on above: Performed By: #### M G, CMP, PHOS #### [facility] [address] [place] [address] Dr. Dk Mahoney EO # 0.5 103/ul Normal 0.0-0.7 [facility] Comment on above: Performed By: #### M G, CMP, PHOS #### [facility] [address] [place] [address] Dr. Dk Mahoney Eosinophils/100 WBC (Bld) 6.9 % Normal 0.9-7.0 [facility] Comment on above: Performed By: #### M SHIREEN Vidal, PHOS #### [facility] [address] [address] [address] Dk Mahoney Erythrocyte distribution width (RBC) [Ratio] 16.3 % Critically high 11.0-15.0 [facility] Comment on above: Performed By: #### M Young, CMP, PHOS #### [facility] [address] [address] [address] Dk Mahoney Hematocrit (Bld) [Volume fraction] 20.8 % Critically low 42.0-54.0 [facility] Comment on above: Performed By: #### M Young CMP, PHOS #### [facility] [address] [place] [address] Dr. Dk Mhaoney Hemoglobin (Bld) [Mass/Vol] 6.8 g/dL Critically low 14.0-18.0 [facility] Comment on above: Performed By: #### M Young, CMP, PHOS #### [facility] [address] [place] [address] Dr. Dk Mahoney IG # 0.04 10e3/ul Critically high 0.00-0.03 [facility] Comment on above: Performed By: #### M Young CMP, PHOS #### [facility] [address] [place] [address] Dr. Dk Mahoney IG % 0.6 % Critically high 0.0-0.5 [facility] Comment on above: Performed By: #### M G, CMP, PHOS #### [facility] [address] [place] [address] Dr. Dk Mahoney LYMPH # 1.0 103/ul Critically low 1.2-3.8 [facility] Comment on above: Performed By: #### M G, CMP, PHOS #### [facility] [address] [place] [address] Dr. Dk Mahoney Lymphocytes/100 WBC (Bld) 14.1 % Critically low 20.5-60.0 [facility] Comment on above: Performed By: #### M G, CMP, PHOS #### [facility] [address] [place] [address] Dr. Dk Mahoney MANUAL DIFF REQ NO Normal [facility] Comment on above: Performed By: #### M G, CMP, PHOS #### [facility] [address] [place] [address] Dr. Dk Mahoney MCH (RBC) [Entitic mass] 29.3 pg Normal 25.9-34.0 [facility] Comment on above: Performed By: #### M G, CMP, PHOS #### [facility] [address] [place] [address] Dr. Dk Mahoney MCHC (RBC) [Mass/Vol] 32.7 g/dL Normal 29.9-35.2 [facility] Comment on above: Performed By: #### M G, CMP, PHOS #### [facility] [address] [place] [address] Dr. Dk Mahoney MCV (RBC) [Entitic vol] 89.7 fL Normal 80.0-94.0 [facility] Comment on above: Performed By: #### M G, CMP, PHOS #### [facility] [address] [place] [address] Dr. Dk Mahoney MONO # 0.7 103/ul Normal 0.3-0.8 [facility] Comment on above: Performed By: #### M G, CMP, PHOS #### [facility] [address] [place] [address] Dr. Dk Mahoney Monocytes/100 WBC (Bld) 10.1 % Normal 1.7-12.0 [facility] Comment on above: Performed By: #### M G, CMP, PHOS #### [facility] [address] [place] [address] Dr. Dk Mahoney NEUT # 4.9 103/ul Normal 1.4-6.5 [facility] Comment on above: Performed By: #### M G, CMP, PHOS #### [facility] [address] [place] [address] Dr. Dk Mahoney Neutrophils/100 WBC (Bld) 67.5 % Normal 43.0-75.0 [facility] Comment on above: Performed By: #### M SHIREEN Vidal, PHOS #### [facility] [address] [address] [address] Dk Mahoney Platelet mean volume (Bld) [Entitic vol] 9.5 fL Normal 9.5-13.5 [facility] Comment on above: Performed By: #### Rosmery Vidal CMP, PHOS #### [facility] [address] [address] [address] Dk Mahoney PLT 212 103/ul Normal 150-450 [facility] Comment on above: Performed By: #### Rosmery Vidal CMP, PHOS #### [facility] [address] [place] [address] Dr. Dk Mahoney RBC 2.32 106/ul Critically low 4.70-6.10 [facility] Comment on above: Performed By: #### Rosmery Vidal CMP, PHOS #### [facility] [address] [place] [address] Dr. Dk Mahoney WBC 7.2 103/ul Normal 4.0-11.0 [facility] Comment on above: Performed By: #### Rosmery Vidal CMP, PHOS #### [facility] [address] [place] [address] Dr. Dk Mahoney [facility]on SARS-CoV-2 (COVID-19) RNA JASON+probe Ql (Unsp spec) Not detected Normal NOT DETECTED [facility] Comment on above: Result Comment: When [...] for this test is supported by the [place] of Health and Human Service's declaration that [...] no longer be used). Performed By: #### M SHIREEN Vidal, PHOS #### [facility] [address] [place] [address] Dr. Dk Mahoney PROF 14(COMP METB)on 023 Albumin [Mass/Vol] 2.4 g/dL Critically low 3.4-5.0 [facility] Comment on above: Performed By: #### Rosmery Vidal CMP, PHOS #### [facility] [address] [place] [address] Dr. Dk Mahoney Albumin/Globulin [Mass ratio] 0.6 {ratio} Normal [facility] Comment on above: Performed By: #### Rosmery Vidal CMP, PHOS #### [facility] [address] [place] [address] Dr. Dk Mahoney ALP [Catalytic activity/Vol] 142 U/L Critically high 46-116 [facility] Comment on above: Performed By: #### Rosmery Vidal CMP, PHOS #### [facility] [address] [place] [address] Dr. Dk Mahoney ALT [Catalytic activity/Vol] 26 U/L Normal 16-63 [facility] Comment on above: Performed By: #### Rosmery Vidal CMP, PHOS #### [facility] [address] [place] [address] Dr. Dk Mahoney Anion gap [Moles/Vol] 12.0 mmol/L Normal [facility] Comment on above: Performed By: #### Rosmery Vidal CMP, PHOS #### [facility] [address] [place] [address] Dr. Dk Mahoney AST [Catalytic activity/Vol] 19 U/L Normal 15-37 [facility] Comment on above: Performed By: #### Rosmery Vidal CMP, PHOS #### [facility] [address] [address] [address] Dk Mahoney Bilirubin [Mass/Vol] 0.3 mg/dL Normal 0.2-1.0 [facility] Comment on above: Performed By: #### M G, CMP, PHOS #### [facility] [address] [address] [address] Dk Mahoney Calcium [Mass/Vol] 9.3 mg/dL Normal 8.5-10.1 [facility] Comment on above: Performed By: #### M G, CMP, PHOS #### [facility] [address] [address] [address] Dk Mahoney Chloride [Moles/Vol] 109 mmol/L Critically high 98-107 [facility] Comment on above: Performed By: #### M G, CMP, PHOS #### [facility] [address] [address] [address] Dk Mahoney CO2 [Moles/Vol] 25.0 mmol/L Normal 21.0-32.0 [facility] Comment on above: Performed By: #### M G, CMP, PHOS #### [facility] [address] [address] [address] Dk Mahoney Creatinine [Mass/Vol] 4.83 mg/dL Critically high 0.70-1.30 [facility] Comment on above: Performed By: #### M G, CMP, PHOS #### [facility] [address] [address] [address] Dk Mahoney EGFR-AF VI[place] 15 mL/min/1.73m2 Critically low >=60 [facility] Comment on above: Performed By: #### M G, CMP, PHOS #### [facility] [address] [address] [address] Dk Mahoney EGFR-NON AF [place] 12 mL/min/1.73m2 Critically low >=60 [facility] Comment on above: Performed By: #### M G, CMP, PHOS #### [facility] [address] [address] [address] Dk Mahoney Globulin (S) [Mass/Vol] 4.1 g/dL Normal [facility] Comment on above: Performed By: #### M G, CMP, PHOS #### [facility] [address] [address] [address] Dk Mahoney Glucose [Mass/Vol] 128 mg/dL Critically high 74-106 [facility] Comment on above: Performed By: #### M G, CMP, PHOS #### [facility] [address] [address] [address] Dk Mahoney Potassium [Moles/Vol] 5.0 mmol/L Normal 3.5-5.1 [facility] Comment on above: Performed By: #### M G, CMP, PHOS #### [facility] [address] [place] [address] Dr. Dk Mahoney Protein [Mass/Vol] 6.5 g/dL Normal 6.4-8.2 [facility] Comment on above: Performed By: #### M Young CMP, PHOS #### [facility] [address] [address] [address] Dk Mahoney Sodium [Moles/Vol] 141 mmol/L Normal 136-145 [facility] Comment on above: Performed By: #### M Young CMP, PHOS #### [facility] [address] [place] [address] Dr. Dk Mahoney Urea nitrogen [Mass/Vol] 62.0 mg/dL Critically high 7.0-18.0 [facility] Comment on above: Performed By: #### M G, CMP, PHOS #### [facility] [address] [place] [address] Dr. Dk Mahoney Urea nitrogen/Creatinine [Mass ratio] 12.8 mg/mg Normal [facility] Comment on above: Performed By: #### M G CMP, PHOS #### [facility] [address] [place] [address] Dr. Dk Mahoney PROTIMEon 04-19-2022 INR Coag (PPP) [Relative time] 1.01 {INR} Normal [facility] Comment on above: Performed By: #### P OCGLUC #### [facility] [address] [place] [address] Dr. Dk Mahoney INR GUIDELINES SEE BELOW Normal [facility] Comment on above: Result Comment: JOSELO RED INR: 2.0 - 3.0 CONDITIONS NOT LISTED BELOW 2.5 - 3.5 FOR PROSTHETIC HEART VALVE REPLACEMENT 2.5 - 3.5 RECURRENT THROMBOSIS Performed By: #### P OCGLUC #### [facility] [address] [place] [address] Dr. Dk Mahoney PT Coag (PPP) [Time] 10.9 s Normal 9.0-11.6 [facility] Comment on above: Performed By: #### P OCGLUC #### [facility] [address] [place] [address] Dr. Dk Mahoney PTTon 04-19-2022 aPTT Coag (Bld) [Time] 25.8 s Normal 22.3-36.2 [facility] Comment on above: Performed By: #### P OCGLUC #### [facility] [address] [place] [address] Dr. Dk Mahoney TYPE AND SCREENon 04-19-2022 TYPE AND SCREEN Negative Normal [facility] Comment on above: Performed By: #### P OCGLUC #### [facility] [address] [place] [address] Dr. Dk Mahoney CBC AUTO DIFFon 10-24-2021 BASO # 0.1 103/ul Normal 0.0-0.1 [facility] Comment on above: Performed By: #### C BC #### [facility] [address] [place] [address] Dr. Dk Mahoney Basophils/100 WBC (Bld) 0.7 % Normal 0.2-2.0 [facility] Comment on above: Performed By: #### C BC #### [facility] [address] [place] [address] Dr. Dk Mahoney EO # 0.6 103/ul Normal 0.0-0.7 [facility] Comment on above: Performed By: #### C BC #### [facility] [address] [place] [address] Dr. Dk Mahoney Eosinophils/100 WBC (Bld) 7.7 % Critically high 0.9-7.0 [facility] Comment on above: Performed By: #### C BC #### [facility] [address] [place] [address] Dr. Dk Mahoney Erythrocyte distribution width (RBC) [Ratio] 17.2 % Critically high 11.0-15.0 [facility] Comment on above: Performed By: #### C BC #### [facility] [address] [place] [address] Dr. Dk Mahoney Hematocrit (Bld) [Volume fraction] 26.1 % Critically low 42.0-54.0 [facility] Comment on above: Performed By: #### C BC #### [facility] [address] [place] [address] Dr. Dk Mahoney Hemoglobin (Bld) [Mass/Vol] 8.1 g/dL Critically low 14.0-18.0 [facility] Comment on above: Performed By: #### C BC #### [facility] [address] [place] [address] Dr. Dk Mahoney IG # 0.06 10e3/ul Critically high 0.00-0.03 [facility] Comment on above: Performed By: #### C BC #### [facility] [address] [place] [address] Dr. Dk Mahoney IG % 0.8 % Critically high 0.0-0.5 [facility] Comment on above: Performed By: #### C BC #### [facility] [address] [place] [address] Dr. Dk Mahoney LYMPH # 1.4 103/ul Normal 1.2-3.8 [facility] Comment on above: Performed By: #### C BC #### [facility] [address] [place] [address] Dr. Dk Mahoney Lymphocytes/100 WBC (Bld) 18.1 % Critically low 20.5-60.0 [facility] Comment on above: Performed By: #### C BC #### [facility] [address] [place] [address] Dr. Dk Mahoney MANUAL DIFF REQ NO Normal [facility] Comment on above: Performed By: #### C BC #### [facility] [address] [place] [address] Dr. Dk Mahoney MCH (RBC) [Entitic mass] 25.6 pg Critically low 25.9-34.0 [facility] Comment on above: Performed By: #### C BC #### [facility] [address] [place] [address] Dr. Dk Mahoney MCHC (RBC) [Mass/Vol] 31.0 g/dL Normal 29.9-35.2 [facility] Comment on above: Performed By: #### C BC #### [facility] [address] [place] [address] Dr. Dk Mahoney MCV (RBC) [Entitic vol] 82.3 fL Normal 80.0-94.0 [facility] Comment on above: Performed By: #### C BC #### [facility] [address] [place] [address] Dr. Dk Mahoney MONO # 0.9 103/ul Critically high 0.3-0.8 [facility] Comment on above: Performed By: #### C BC #### [facility] [address] [place] [address] Dr. Dk Mahoney Monocytes/100 WBC (Bld) 12.4 % Critically high 1.7-12.0 [facility] Comment on above: Performed By: #### C BC #### [facility] [address] [place] [address] Dr. Dk Mahoney NEUT # 4.6 103/ul Normal 1.4-6.5 [facility] Comment on above: Performed By: #### C BC #### [facility] [address] [place] [address] Dr. Dk Mahoney Neutrophils/100 WBC (Bld) 60.3 % Normal 43.0-75.0 [facility] Comment on above: Performed By: #### C BC #### [facility] [address] [place] [address] Dr. Dk Mahoney Platelet mean volume (Bld) [Entitic vol] 9.5 fL Normal 9.5-13.5 [facility] Comment on above: Performed By: #### C BC #### [facility] [address] [place] [address] Dr. Dk Mahoney PLT 201 103/ul Normal 150-450 [facility] Comment on above: Performed By: #### C BC #### [facility] [address] [address] [address] Dk Mahoney RBC 3.17 106/ul Critically low 4.70-6.10 [facility] Comment on above: Performed By: #### C BC #### [facility] [address] [place] [address] Dr. Dk Mahoney WBC 7.5 103/ul Normal 4.0-11.0 [facility] Comment on above: Performed By: #### C BC #### [facility] [address] [place] [address] Dr. Dk Mahoney PROF CHEM 8 (BAS METB)on Anion gap [Moles/Vol] 12.3 mmol/L Normal [facility] Comment on above: Performed By: #### M Young CMP, PHOS #### [facility] [address] [place] [address] Dr. Dk Mahoney Calcium [Mass/Vol] 9.6 mg/dL Normal 8.5-10.1 [facility] Comment on above: Performed By: #### M G, CMP, PHOS #### [facility] [address] [place] [address] Dr. Dk Mahoney Chloride [Moles/Vol] 107 mmol/L Normal 98-107 [facility] Comment on above: Performed By: #### M G, CMP, PHOS #### [facility] [address] [place] [address] Dr. Dk Mahoney CO2 [Moles/Vol] 26.5 mmol/L Normal 21.0-32.0 [facility] Comment on above: Performed By: #### M G, CMP, PHOS #### [facility] [address] [address] [address] Dk Mahoney Creatinine [Mass/Vol] 3.76 mg/dL Critically high 0.70-1.30 [facility] Comment on above: Performed By: #### M G, CMP, PHOS #### [facility] [address] [address] [address] Dk Mahoney EGFR-AF [place] 19 mL/min/1.73m2 Critically low >=60 [facility] Comment on above: Performed By: #### M G, CMP, PHOS #### [facility] [address] [address] [address] Dk Mahoney EGFR-NON AF [place] 16 mL/min/1.73m2 Critically low >=60 [facility] Comment on above: Performed By: #### M G, CMP, PHOS #### [facility] [address] [address] [address] Dk Mahoney Glucose [Mass/Vol] 143 mg/dL Critically high 74-106 [facility] Comment on above: Performed By: #### M G, CMP, PHOS #### [facility] [address] [address] [address] Dk Mahoney Potassium [Moles/Vol] 4.8 mmol/L Normal 3.5-5.1 [facility] Comment on above: Performed By: #### M G, CMP, PHOS #### [facility] [address] [address] [address] Dk Mahoney Sodium [Moles/Vol] 141 mmol/L Normal 136-145 [facility] Comment on above: Performed By: #### M G, CMP, PHOS #### [facility] [address] [address] [address] Dk Mahoney Urea nitrogen [Mass/Vol] 47.0 mg/dL Critically high 7.0-18.0 [facility] Comment on above: Performed By: #### M G, CMP, PHOS #### [facility] [address] [address] [address] Dk Mahoney Urea nitrogen/Creatinine [Mass ratio] 12.5 mg/mg Normal [facility] Comment on above: Performed By: #### M G, CMP, PHOS #### [facility] [address] [address] [address] Dk Mahoney US ROWAN DOP LEG [...] MARQUES AMAYA Date: 2021-10-24 18:07 Normal [facility] Office Visit (Urology)on Follow-up visit Diagnoses/Problems [...] d By: Riana Pro on 08-29-2020 - [employer] Work Phone: Amorphous, UA NOT REPORTED None [facility] Work Phone: Bacteria, UA 2+ Abnormal None [facility] Work Phone: Casts UA NOT REPORTED /LPF [facility] [employer] Work Phone: Crystals, UA NOT REPORTED None /HPF [facility] Work Phone: Epithelial Cells UA 2 TO 5 [facility] [employer] Work Phone: Interpretation and review of laboratory results Abnormal [facility] Work Phone: Mucus, UA NOT REPORTED None [facility] [employer] Work Phone: Other Observations UA NOT REPORTED NOT REQ. M [facility] [employer] Work Phone: RBC, UA 50 TO 100 [facility] [employer] Work Phone: Renal Epithelial, UA NOT REPORTED 0 /HPF [facility] [employer] Work Phone: Trichomonas, UA NOT REPORTED None [facility] Work Phone: WBC, UA GREATER THAN 100 [employer] [facility] Work Phone: Yeast, UA NOT REPORTED None [employer] Work Phone: [facility] [employer] Work Phone: Urinalysis Reflex to Culture Ordered By: Riana Pro on 08-29-2020 Bilirubin Urine Negative NEGATIVE [facility] Work Phone: Color, UA YELLOW YELLOW [facility] [employer] Work Phone: Glucose, Ur Negative NEGATIVE [facility] Work Phone: Interpretation and review of laboratory results Abnormal [employer] Work Phone: Ketones Ql (U) Negative NEGATIVE [employer] Work Phone: Leukocyte esterase Test strip Ql (U) LARGE Abnormal NEGATIVE [employer] Phone: Nitrite, Urine Positive Abnormal NEGATIVE [employer] Work Phone: pH, UA 7.5 [facility] [employer] Work Phone: Protein, UA 1+ Abnormal NEGATIVE [facility] [employer] Work Phone: Specific [place], UA 1.010 [employer] Work Phone: Turbidity UA CLEAR CLEAR [facility] Work Phone: Urinalysis Comments NOT REPORTED [facility] [employer] Work Phone: Urine Hgb 3+ Abnormal NEGATIVE [facility] [employer] Work Phone: Urobilinogen, Urine Normal Normal [facility] [employer] Work Phone: [facility] [employer] Work Phone: Microscopic Urinalysison Amorphous, UA NOT REPORTED None [facility] [place] [place] Bacteria, UA 2+ Abnormal None [facility] [place] Casts UA NOT REPORTED /LPF [facility] [place] Crystals, UA NOT REPORTED None /HPF [facility] [place] [place] Epithelial Cells UA 2 TO 5 [facility] [place] Interpretation and review of laboratory results Abnormal [place], [place] Mucus, UA NOT REPORTED None [place], [place] Other Observations UA NOT REPORTED NOT REQ. [place] RBC (U) [#/Vol] 20 TO 50 [place], [place] Renal Epithelial, UA NOT REPORTED 0 /HPF Me [place], [place] Trichomonas, UA NOT REPORTED None [place] WBC, UA GREATER THAN 100 [place], [place] Yeast, UA NOT REPORTED None [place], [place] - [place] Urinalysison 02-03-2020 Bilirubin Urine Negative NEGATIVE [place], [place] Color, UA YELLOW YELLOW [place], [place] Glucose, Ur Negative NEGATIVE [place] Interpretation and review of laboratory results Abnormal [place] Ketones Ql (U) Negative NEGATIVE [place], [place] Leukocyte esterase Test strip Ql (U) LARGE Abnormal NEGATIVE [place] Nitrite, Urine Positive Abnormal NEGATIVE [place] pH, UA 8.0 [place], [place] Protein (U) [Mass/Vol] TRACE Abnormal NEGATIVE [place] Specific [place], UA 1.015 [place], [place] Turbidity UA SLIGHTLY CLOUDY Abnormal CLEAR [place] Urinalysis Comments NOT REPORTED [place], [place] Urine Hgb 3+ Abnormal NEGATIVE [place] Urobilinogen, Urine Normal Normal [place] Vital Signs Date Time Vital Sign Value Performing Clinician Facility 10-08-2022 12:20-0400 Body height 180.34 cm Devaughn Lucio Other [email or web address] Other 10-08-2022 12:20-0400 Body temperature 96.6 [degF] Devaughn Aviladir Other [facility] Other 10-08-2022 12:20-0400 Diastolic blood pressure 60 mm[Hg] Devaughn Aviladir Other [facility] Other 10-08-2022 12:20-0400 Respiratory rate 18 /min Devaughn Khadijah Other [facility] Other 10-08-2022 12:20-0400 SaO2% (BldA) [Mass fraction] 100 % Devaughn Khadijah Other [facility] Other 10-08-2022 12:20-0400 Systolic blood pressure 121 mm[Hg] Devaughn Khadijah Other [facility] Other 10-01-2022 13:30-0400 Body height 180.34 cm Erik Shepherdrefadia Other [facility] Other 10-01-2022 13:30-0400 Body mass index (BMI) [Ratio] 42.12 kg/m2 Erik Ariasehrer Other [facility] Other 10-01-2022 13:30-0400 Body temperature 97.2 [degF] Erik Shepherdrer Other [facility] Other 10-01-2022 13:30-0400 Body weight 136.99 kg Erik Ariasehrer Other [facility] Other 10-01-2022 13:30-0400 Diastolic blood pressure 68 mm[Hg] Erik Buehrer Other [facility] Other 10-01-2022 13:30-0400 SaO2% (BldA) [Mass fraction] 97 % Erik Buehrer Other [facility] Other 10-01-2022 13:30-0400 Systolic blood pressure 138 mm[Hg] Erik Sanderson Other [facility] Other Encounters Encounter Date Encounter Type Care Provider Facility Start: 01-17-2023 End: 01-18-2023 ambulatory BLANCA [facility] Start: 10-21-2022 End: 10-21-2022 ambulatory Devaughn Khadijah Other [facility] Other Start: 10-21-2022 Telephone encounter Devaughn Khadijah [facility] Start: 10-18-2022 End: 10-18-2022 ambulatory Devaughn Khadijah Other [facility] Other Start: 10-18-2022 Telephone encounter Devaughn Khadijah [facility] Start: 10-08-2022 End: 10-08-2022 ambulatory Devaughn Khadijah Other [facility] Other Start: 10-08-2022 Office outpatient visit 15 minutes Devaughn Khadijah [facility] Start: 10-01-2022 End: 10-01-2022 ambulatory Erik Sanderson Other [facility] Other Start: 10-01-2022 Office outpatient visit 25 minutes Erik Sanderson [facility] Start: 08-31-2022 End: 09-01-2022 ambulatory ЕЛЕНА SAMSON Facility:[id number] Start: 08-30-2022 End: 09-04-2022 Evaluation and management of inpatient Eldon López Facility:[facility] Start: 07-05-2022 End: 07-07-[address] ERIK RHODES . Facility:[facility] Start: 05-04-2022 End: 05-04-2022 ambulatory ROBERTO HEBERT Facility:[facility] Start: 04-19-2022 End: 04-19-[address] ERIK RHODES . Facility:[facility] Start: 03-14-2022 End: 03-14-[address] NONE LISTED REQUEST Facility: Start: 10-24-2021 End: 10-24-2021 ambulatory KENDRA KEVIN . Facility:[facility] Start: 08-29-2020 End: 08-29-2020 [facility] Start: 02-03-2020 End: 02-03-2020 Subsequent hospital visit by physician [facility] Laboratory Procedures Date Procedure Procedure Detail Performing Clinician Start: 08-31-2022 Antibody screen Eldon López Comment on above: Order Comment: NEEDS DRAWN Result Comment: PERF ORMED BY: [facility] [address] [place] [address] PATHOLOGIST MANDARIN SPEAKING NANNY BRANDEN WHATLEY M.D. Start: 08-29-2020 Urinalysis microscop ic only Riana Pro DO Work Phone: Start: 08-29-2020 Urnls dip stick/tabl et rgnt auto w/o microscopy Riana Pantoja Morteza HIDALGO Work Phone: Start: 02-03-2020 Urinalysis microscop ic only Riana Pro Work Phone: Start: 02-03-2020 Urnls dip stick/tabl et rgnt auto w/o microscopy Riana Pro Work Phone: Plan of Treatment Date Care Activity Detail Author Start: 12-13-2020 Influenza vaccination Flu vacc ine (Season Ended) [facility] Work Phone: Start: 04-30-2020 Creatinine measurement Creatinine mo [place]itoring [place] Start: 04-30-2020 Potassium monitoring Potassium monit [place] Start: 12-14-2019 Influenza vaccination Flu vaccine (# 1) [place] Start: 02-08-2019 Annual Wellness Visi t (AWV) Annual Wellness Visit (AWV) [place] Start: 09-11-2015 Pneumococcal 65+ yea rs Vaccine (1 of 1 - PPSV23) Pneumococcal 65+ years Vaccine (1 of 1 - PPSV23) [place], [place] Start: 2000 Screening for malign ant neoplasm of colon Colon cancer screen colonoscopy [place] Start: 2000 Shingles Vaccine (1 of 2) Ordoñez gles Vaccine (1 of 2) [place] Start: 1969 DTaP/Tdap/Td vaccine (1 - Tdap) DTaP/Tdap/Td vaccine (1 - Tdap) [place] Start: 1962 COVID-19 Vaccine (1) COVID-19 Vaccin e (1) [facility] Phone: Start: 1960 Lipid panel Lipid screen [place], [place] Start: 1950 Hepatitis C screening Hepatitis C sc [place]en [place] End: 02-03-2020 Culture, Urine Culture, Urine Microbiology Routine Once for 1 Occurrences starting 02/03/2020 until 02/03/2020 [place] Comment on above: Once for 1 Occurrenc es starting 02/03/2020 until 02/03/2020 Culture, Urine [place] End: 08-29-2020 Culture, Urine Culture, Urine Microbiology Routine Once for 1 Occurrences starting 08/29/2020 until 08/29/2020 [facility] Phone: Comment on above: Once for 1 Occurrenc es starting 08/29/2020 until 08/29/2020 Payers Date Payer Category Payer Self-pay 2022 Unknown [id number] 2022 Medicare [id number] 2020 Medicare [id number] 2019 Medicare [id number] 2019 Unknown [id number] 2014 Medicare [employer] [facility] [id number] 2014-Present [address] [address] [place] [address] [id number] 1950 Unknown [id number] 1950 Unknown [id number] 1950 Unknown [id number] 1950 Unknown [id number] 1950 Unknown [id number] 1950 Unknown [id number] 1950 Unknown [id number] Medicare [id number] Unknown [id number] Social History Date Type Detail Facility Start: 02-05-2019 Tobacco smoking status [facility] Unknown if ever smoked [place], [place] Start: 1950 Sex Assigned At Not on file [place] Sex Assigned At Sex Assigned At [facility] Other Evaluation note 10-08-2022 Note Date & Type Note Facility 10-08-2022 Evaluation note Encounter Date Diagnosis Assessment Notes Sep, CKD (chronic kidney disease) stage 4, GFR 15-29 ml/min (ICD-10 - N18.4) He has a CKD due to the longstanding hypertension and recurrent SHAWN due to the obstructive uropathy. He recently required hemodialysis due to the obstructive uropathy. He was monitored by the [place] and catheter was removed as his renal function was improving as per the patient. Patient currently bedbound and can not be transferred out of the stretcher at our office. He does not want to follow-up in our office. Advised him to continue follow with the PCP and the [place] vinicius [facility] for CKD and renal function monitoring [facility]. 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 He appears to be euvolemic. Continue current medications. Sep, Secondary hyperparathyroidism (ICD-10 - N25.81) Continue sevelamer and vitamin D as prescribed by [place] physician. Continue to follow with the [place] v[facility] [place]. Sep, Anemia of renal disease (ICD-10 - D63.1) Continue oral iron. Sep, Nephrolithiasis (ICD-10 - N20.0) Continue follow up with urology. [facility] Other Evaluation note 10-01-2022 Note Date & [...] this well and a dressing was applied. 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 Summary Purpose Family History No Family History Records FoundNo Family History Records FoundNo Family History Records FoundNo Family History Records FoundNo Family History Records Found Additional Source Comments (unrecognized sect ion and content) No Status Records FoundNo Status Records FoundNo Status Records FoundNo Status Records FoundNo Status Records Found INFORMATION SOURCE (unrecogn ized section and content) DATE CREATED AUTHOR 09/09/2020 [employer] DATE CREATED AUTHOR AUTHOR'S ORGANIZ ATION 07/20/2022 [facility] DATE CREATED AUTHOR AUTHOR'S ORGANIZ ATION 09/22/2022 [facility] DATE CREATED AUTHOR AUTHOR'S ORGANIZ ATION 10/29/2022 [facility] DATE CREATED AUTHOR AUTHOR'S ORGANIZ ATION 01/20/2023 [facility] REASON FOR VISIT (unrecogniz ed [...] BE BASED ON THE PRIMARY CLINICAL RECORDS. Caption Data [facility]. provides no warranty or guarantee of the accuracy or completeness of information in this document.
--- NOTE | 2023-09-10 22:20 | ED.NAVMDI1 ---
HPI - Nausea/Vomiting/Diarrhea General Chief complaint: Nausea/Vomiting/Diarrhea Stated complaint: Diarrhea Time Seen by Provider: 09/10/23 22:04 Source: patient Mode of arrival: walk-in Limitations: physical limitation History of Present Illness HPI Narrative: This 72-year-old male with a history of diabetes and chronic kidney disease is brought to the emergency department by EMS from home for evaluation of 5 days of diarrhea and generalized weakness. The patient states he [facility] and was told to come to the emergency department for evaluation. The patient does have an indwelling Wooten catheter. He has been urinating but his urine has been thick and cloudy. He was evaluated 2 weeks ago in this emergency department and found to have a UTI and started on antibiotics. He states he is having intermittent abdominal cramping. He is not having any nausea or vomiting. He states he had 2 episodes of diarrhea so far today. The patient lives alone and has aides that come to help him. He is nonambulatory and requires a [place] lift for transfer. He states that when the aide got there this morning and had to clean him up there was diarrhea everywhere. He complains of generalized weakness but no focal weakness numbness or tingling. He denies any chest pain or shortness of breath. He is having abdominal cramping prior to episodes of diarrhea but not having severe abdominal pain or distention. He has not had a fever or chills. Related Data Home Medications ?Medication ?Instructions ?Recorded ?Confirmed acetaminophen 325 mg capsule 975 mg PO TID PRN fever or pain 08/17/23 08/17/23 (Tylenol) albuterol 90 mcg/actuation aerosol 90 mcg inhalation QID PRN 08/17/23 08/17/23 inhaler shortness of breath or wheezing aspirin 81 mg tablet,delayed 81 mg PO DAILY 08/17/23 08/17/23 release (Adult Low Dose Aspirin) atorvastatin 80 mg tablet 80 mg PO DAILY 08/17/23 08/17/23 bacitracin zinc 500 unit/gram 1 applic topical DAILY PRN skin 08/17/23 08/17/23 topical ointment irritation benzocaine 15 mg-menthol 2.6 mg 1 thien mucous membrane Q6H PRN sore 08/17/23 08/17/23 lozenges (Cepacol Sore Throat throat (benzocaine-menthol)) calcitriol 0.25 mcg capsule 0.25 mcg PO .3 TIMES WEEK 08/17/23 08/17/23 carvedilol 12.5 mg tablet 12.5 mg PO BID 08/17/23 08/17/23 cholecalciferol (vitamin D3) 50 2,000 unit PO DAILY 08/17/23 08/17/23 mcg (2,000 unit) capsule clobetasol 0.05 % topical cream 1 applic topical BID 08/17/23 08/17/23 darbepoetin danielle in polysorbat 100 100 mcg subcut .q2week 08/17/23 08/17/23 mcg/0.5 mL in polysorbate injection syringe darbepoetin danielle in polysorbat 100 100 mcg subcut QWEEK 08/17/23 08/17/23 mcg/mL in polysorbate injection darifenacin 15 mg tablet,extended 15 mg PO DAILY 08/17/23 08/17/23 release 24 hr ferrous sulfate 325 mg (65 mg 325 mg PO DAILY 08/17/23 08/17/23 iron) tablet,delayed release finasteride 5 mg tablet 5 mg PO DAILY 08/17/23 08/17/23 guaifenesin 600 mg tablet, 600 mg PO BID PRN congestion 08/17/23 08/17/23 extended release 12 hr hydrocodone 5 mg-acetaminophen 325 1 tab PO Q4H PRN pain 08/17/23 08/17/23 mg tablet hydrophilic cream 1 applic topical BID 08/17/23 08/17/23 levothyroxine 75 mcg capsule 75 mcg PO DAILY 08/17/23 08/17/23 lidocaine HCl 2 % topical gel 1 applic topical DAILY PRN pain 08/17/23 08/17/23 lidocaine HCl 4 % topical ointment 1 ea topical TID PRN pain 08/17/23 08/17/23 (AsperFlex (lidocaine HCl)) loratadine 10 mg tablet (Allergy 10 mg PO DAILY 08/17/23 08/17/23 Relief (loratadine)) melatonin 3 mg tablet 6 mg PO DAILY 08/17/23 08/17/23 miconazole nitrate 2 % topical 1 applic topical DAILY 08/17/23 08/17/23 cream miconazole nitrate 2 % topical 1 applic topical DAILY PRN fungal 08/17/23 08/17/23 powder (Remedy Phytoplex Antifungal) multivitamin 1 tab PO DAILY 08/17/23 08/17/23 nitroglycerin 0.4 mg sublingual 0.4 mg sublingual Q5M 08/17/23 08/17/23 tablet nystatin 100,000 unit/gram topical 1 applic topical DAILY PRN skin 08/17/23 08/17/23 powder omeprazole 20 mg tablet,delayed 20 mg PO DAILY 08/17/23 08/17/23 release polyethylene glycol 3350 17 17 g PO DAILY PRN constipation 08/17/23 08/17/23 gram/dose oral powder (Miralax) potassium citrate-citric acid 30 ml PO DAILY 08/17/23 08/17/23 1,100 mg-334 mg/5 mL oral solution pramoxine 1 % lotion 1 applic topical BID PRN itching 08/17/23 08/17/23 semaglutide 2 mg/dose (8 mg/3 mL) 0.5 mg subcut QWEEK 08/17/23 08/17/23 subcutaneous pen injector ([employer]) sennosides 8.6 mg capsule 8.6 mg PO DAILY PRN constipation 08/17/23 08/17/23 trazodone 100 mg tablet 100 mg PO DAILY 08/17/23 08/17/23 ustekinumab 90 mg/mL subcutaneous 90 mg subcut .every 10 weeks 08/17/23 08/17/23 syringe venlafaxine 37.5 mg 37.5 mg PO DAILY 08/17/23 08/17/23 capsule,extended release 24 hr wound dressings (Triad Wound 1 applic topical .FRI. FRI. 08/17/23 08/17/23 Dressing paste) zinc oxide 20 % topical ointment 1 applic topical DAILY PRN skin 08/17/23 08/17/23 irritation Previous Rx's ?Medication ?Instructions ?Recorded cefuroxime axetil 250 mg tablet 250 mg PO DAILY #7 tabs 08/18/23 Allergies Allergy/AdvReac Type Severity Reaction Status Date / Time Penicillins Allergy Mild Rash Verified 09/10/23 22:11 ferumoxides Allergy Rash Verified 09/10/23 22:11 sulfamethoxazole AdvReac Mild Nausea Verified 09/10/23 22:11 [From Sulfamethoxazole-Trimethoprim] trimethoprim AdvReac Mild Nausea Verified 09/10/23 22:11 [From Sulfamethoxazole-Trimethoprim] Review of Systems ROS Status of ROS 10 or more systems reviewed and unremarkable except as noted in history and below [facility] Medical History (Updated 09/11/23 @ 02:37 by Kenisha Richards MD) Catheter-associated urinary tract infection ?T83.511A - Infection and inflammatory reaction due to indwelling urethral catheter, initial encounter (ICD-10) ?N39.0 - Urinary tract infection, site not specified (ICD-10) T2DM (type 2 diabetes mellitus) ?E11.9 - Type 2 diabetes mellitus without complications (ICD-10) Hypothyroid ?E03.9 - Hypothyroidism, unspecified (ICD-10) HLD (hyperlipidemia) ?E78.5 - Hyperlipidemia, unspecified (ICD-10) HTN (hypertension) ?I10 - Essential (primary) hypertension (ICD-10) Anemia in CKD (chronic kidney disease) ?N18.9 - Chronic kidney disease, unspecified (ICD-10) ?D63.1 - Anemia in chronic kidney disease (ICD-10) Chronic indwelling Wooten catheter ?Z97.8 - Presence of other specified devices (ICD-10) Paraplegia ?G82.20 - Paraplegia, unspecified (ICD-10) Bedbound ?Z74.01 - Bed confinement status (ICD-10) H/O: CVA (cerebrovascular accident) ?Z86.73 - Personal history of transient ischemic attack (TIA), and cerebral infarction without residual deficits (ICD-10) Chronic renal failure (CRF), stage 4 (severe) ?N18.4 - Chronic kidney disease, stage 4 (severe) (ICD-10) Pyuria ?R82.81 - Pyuria (ICD-10) CKD (chronic kidney disease) stage 5, GFR less than 15 ml/min ?N18.5 - Chronic kidney disease, stage 5 (ICD-10) Social History (Updated 09/11/23 @ 01:42 by Bethany Amor) Within the past year, how often did you have a drink containing alcohol: never Score interpretation: A score less than 4 is consistent with normal alcohol consumption. Smoking status: Former smoker Non-prescribed substance use: denies use Highest level of school completed/degree received: Associate degree: occupational, technical, vocational program Are you now , , , , never or living with a partner: don't know In a typical week, how many times do you talk on the telephone with family, friends, or neighbors: never How often do you get together with friends or relatives: never How often do you attend holiness or mormonism services: never Little interest or pleasure in doing things: not at all Feeling down, depressed, or hopeless: not at all Do you think of yourself as: straight/heterosexual Gender Identity: male Exam Narrative Exam Narrative: Vital signs and Nursing Notes reviewed: Patient is afebrile with a normal pulse, normal blood pressure, he is not hypoxic with pulse ox of 97% on room air General: Awake, alert, oriented, pale overweight male, no respiratory distress HEENT: Normocephalic atraumatic, mucous membranes are moist and pink, eyes are clear, normal conjunctiva, vision is grossly intact, posterior pharynx is normal in appearance. Neck: Supple, no meningeal signs, no anterior or posterior cervical lymphadenopathy Chest: Lungs are clear to auscultation with good air entry, there is no wheezing rhonchi or rales appreciated no accessory muscle use, patient is speaking in complete sentences-no chest wall tenderness to palpation CVS: Regular rate and rhythm S1-S2, no murmurs rubs or gallops, pulses are brisk and equal bilaterally ABD: Soft, nondistended, nontender, no rebound guarding or rigidity, bowel sounds are normal, no pulsatile masses appreciated : Wooten in place draining thick, cloudy urine with sediment Extremities: Lower extremities are somewhat contracted in an extension position, minimal lower extremity edema is present. No sign of diabetic foot ulcers Skin: Pale, otherwise normal-appearing Neuro: Generally weak, no focal deficits, speech is clear, no facial droop Constitutional Vital Signs, click to edit/add: Last Vital Signs Temp 97.6 F 09/10/23 22:06 Pulse 84 09/11/23 01:36 Resp 16 09/11/23 01:36 BP 134/69 09/11/23 01:36 Pulse Ox 98 09/11/23 01:36 O2 Del Method Room Air 09/10/23 22:06 Course Vital Signs Vital signs: Vital Signs Temperature 97.6 F 09/10/23 22:06 Pulse Rate 85 09/10/23 22:06 Respiratory Rate 18 09/10/23 22:06 Blood Pressure 135/70 05/29/24 22:06 Pulse Oximetry 97 09/10/23 22:06 Oxygen Delivery Method Room Air 09/10/23 22:06 Temperature 97.6 F 09/10/23 22:06 Pulse Rate 84 09/11/23 01:36 Respiratory Rate 16 09/11/23 01:36 Blood Pressure 134/69 09/11/23 01:36 Pulse Oximetry 98 09/11/23 01:36 Oxygen Delivery Method Room Air 09/10/23 22:06 MDM - Nausea/Vomiting/Diarrhea MDM Narrative Medical decision making narrative: This 73-year-old male with a history of diabetes and chronic renal insufficiency is brought to emergency department from home for evaluation of 5 days of diarrhea. He was referred to the emergency department by [facility]. He states he has recently been on antibiotics. He has not had any fever. He has intermittent abdominal cramping prior to having episodes of diarrhea. Upon arrival he is mostly concerned because he is hungry. He has not had any vomiting. He denies any chest pain or shortness of breath. EKG done upon arrival was a sinus rhythm with no acute changes at 80 bpm. His vital signs have been stable. He was medicated with IV fluids and oral Bentyl. His BUN and creatinine are elevated today BUN is 100 and creatinine is 6.5. His baseline BUN runs between 77 and 110 and his baseline creatinine runs between 5.4 and 5.8 indicating some degree of acute kidney injury/dehydration. His potassium is normal at 3.5. White count is elevated at 13 and hemoglobin is low at 8.9. He is not having any active bleeding. Lactic acid was initially elevated at 2.4 and after IV fluid administration repeat lactic acid is 0.8. Noncontrast CT scan of the abdomen pelvis was ordered and shows ureteral stents with a diarrheal illness and some nonspecific thickening of the sigmoid colon and rectum consistent with colitis. The patient is hemodynamically stable in the emergency department and tolerating clear liquids. Due to his elevated BUN and creatinine and history of diarrhea he will be admitted for observation and IV fluids. Antibiotics were not initiated in the emergency department as I do not find any sign of infection, CT shows nonspecific colitis. C. difficile and GI panel are pending at this time however he has not had any episodes of diarrhea since arriving in the emergency department. Medical Records Medical records narrative: The [address] [address] [address] Scan Report Signed Patient: MATT HONEYCUTT MR#: [id number] : 1950 Acct:[id number] Age/Sex: 72 / M ADM Date: 09/10/23 Loc: ER Attending Dr: Ordering Physician: Kenisha Richards Date of Service: 09/10/23 Procedure(s): CT abdomen pelvis wo con Accession Number(s): [id number] cc: Physician,Non-Staff M.D.~ The [address] [address] Patient Name: MATT HONEYCUTT MRN: [id number] date: 1950 Sex: M Assigned Patient Location: ER Current Patient Location: ER Accession/Order Number: [id number] Exam Date: 09/10/2023 23:57 Report Date: 09/11/2023 02:32 At the request of: KENISHA RICHARDS Procedure: CT abdomen pelvis wo con EXAMINATION: CT abdomen pelvis wo con HISTORY: diarrhea, abd pain abdominal pain, cramping for 5 days. Bloody Wooten catheter bag for 2 weeks. COMPARISON: 09/05/2022 TECHNIQUE: CT abdomen pelvis without contrast Dose reduction techniques were achieved by using: automated exposure control and/or adjustment of mA and /or kV according to patient size and/or use of iterative reconstruction technique. FINDINGS: No airspace consolidation in the included lung bases. CT abdomen: No focal lesions in the liver, spleen, pancreas. Cholecystectomy. 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 There is interval placement of bilateral ureteral stents, with tips in the bilateral renal pelvis and bladder. Numerous bilateral nonobstructing calculi remain present. No hydronephrosis or appreciable hydroureter. The calculi measure up to 2 cm in the right kidney. CT PELVIS: Mild circumferential wall thickening of the sigmoid colon. Gas and stool distends the colon. No abnormal small bowel distention. No free fluid or free air. Heavy atherosclerotic calcification of the abdominal aorta. Urinary bladder is decompressed by Wooten catheter. There is osteopenia. CT/CT abdomen pelvis wo con IMPRESSION: 1. There are new bilateral ureteral stents identified, with tips appearing to be appropriate in the bilateral renal pelvis and the urinary bladder. There are numerous nonobstructing bilateral renal calculi identified. No evidence for hydronephrosis or hydroureter. 2. A Wooten catheter is visualized, with the urinary bladder decompressed. Small amount of gas in the bladder, likely related to instrumentation. This can be correlated with urinalysis to exclude less likely possibility of infection. 3. Circumferential wall thickening of the sigmoid colon and the rectum, with surrounding inflammatory stranding. This could represent nonspecific colitis. 4. There is a small amount of liquid material in the distal colon, which can present as diarrhea. Electronically authenticated by: THUY UNDERWOOD Date: 09/11/2023 02:32 Lab Data Labs: Lab Results 09/10/23 09/11/23 Range/Units 22:22 00:28 WBC 13.4 H (4.0-11.0) 10^3/uL RBC 3.14 L (4.70-6.10) 10^6/uL Hgb 8.9 L (14.0-18.0) g/dL Hct 28.6 L (42.0-54.0) % MCV 91.1 (80.0-94.0) fL MCH 28.3 (25.9-34.0) pg MCHC 31.1 (29.9-35.2) g/dL RDW 15.8 H (11.0-15.0) % Plt Count 176 (150-450) 10^3/uL MPV 9.9 (9.5-13.5) fL Neut % (Auto) 77.2 H (43.0-75.0) % Lymph % (Auto) 9.6 L (20.5-60.0) % Amelia % (Auto) 8.4 (1.7-12.0) % Eos % (Auto) 3.6 (0.9-7.0) % Baso % (Auto) 0.7 (0.2-2.0) % Neut # (Auto) 10.4 H (1.4-6.5) 10^3/uL Lymph # (Auto) 1.3 (1.2-3.8) 10^3/uL Amelia # (Auto) 1.1 H (0.3-0.8) 10^3/uL Eos # (Auto) 0.5 (0.0-0.7) 10^3/uL Baso # (Auto) 0.1 (0.0-0.1) 10^3/uL Abs Immat Gran (auto) 0.07 H (0.00-0.03) 10^3/uL Imm/Tot Granulo (auto) 0.5 (0.0-0.5) % Sodium 135 L (136-145) mmol/L Potassium 3.5 (3.5-5.1) mmol/L Chloride 102 (98-107) mmol/L Carbon Dioxide 20.5 L (21.0-32.0) mmol/L Anion Gap 16.0 BUN 100.0 H* (7.0-18.0) mg/dL Creatinine 6.50 H* (0.70-1.30) mg/dL Est GFR ( Amer) 10 L (>=60) Est GFR (Non-Af Amer) 8 L (>=60) BUN/Creatinine Ratio 15.4 Glucose 146 H (74-106) mg/dL Lactate 2.4 H* 0.8 (0.4-2.0) mmol/L Calcium 9.1 (8.5-10.1) mg/dL Total Bilirubin 0.3 (0.2-1.0) mg/dL AST 15 (15-37) U/L ALT 37 (16-63) U/L Alkaline Phosphatase 143 H (46-116) U/L Total Protein 6.0 L (6.4-8.2) g/dL Albumin 2.3 L (3.4-5.0) g/dL Globulin 3.7 g/dL Albumin/Globulin Ratio 0.6 ECG Data Attestation: I personally reviewed and interpreted this ECG as follows: (Sinus rhythm 80 bpm, nonspecific intraventricular block, normal axis, nonspecific ST changes, no acute ST segment elevation or T wave inversion normal T wave appearance, Q waves are noted in lead III and aVF) Discharge Plan Discharge Chief Complaint: Nausea/Vomiting/Diarrhea Clinical Impression: Acute kidney injury, Diarrhea, Dehydration Patient Disposition: Admitted as Observation Time of Disposition Decision: 02:37 Condition: Good Prescriptions / Home Meds: No Action Cepacol Sore Throat (chan-men) 15-2.6 mg lozenge 1 thien mucous membrane Q6H PRN (Reason: sore throat) clobetasol 0.05 % cream 1 applic topical BID nitroglycerin 0.4 mg tablet, sublingual 0.4 mg sublingual Q5M Rx Instructions: do not exceed 3 doses per episode bacitracin zinc 500 unit/gram ointment 1 applic topical DAILY PRN (Reason: skin irritation) trazodone 100 mg tablet 100 mg PO DAILY venlafaxine 37.5 mg capsule,extended release 24hr 37.5 mg PO DAILY miconazole nitrate 2 % cream 1 applic topical DAILY loratadine [Allergy Relief (loratadine)] 10 mg tablet 10 mg PO DAILY atorvastatin 80 mg tablet 80 mg PO DAILY darifenacin 15 mg tablet extended release 24 hr 15 mg PO DAILY Triad Wound Dressing Paste 1 applic topical .MON. FRI. carvedilol 12.5 mg tablet 12.5 mg PO BID Rx Instructions: must administer with a meal/food darbepoetin danielle in polysorbat 100 mcg/mL solution 100 mcg subcut QWEEK albuterol 90 mcg/actuation aerosol 90 mcg inhalation QID PRN (Reason: shortness of breath or wheezing) calcitriol 0.25 mcg capsule 0.25 mcg PO .3 TIMES WEEK potassium citrate-citric acid 1,100-334 mg/5 mL solution 30 ml PO DAILY zinc oxide 20 % ointment 1 applic topical DAILY PRN (Reason: skin irritation) hydrophilic cream Cream 1 applic topical BID miconazole nitrate [Remedy Phytoplex Antifungal] 2 % powder 1 applic topical DAILY PRN (Reason: fungal) omeprazole 20 mg tablet,delayed release (DR/EC) 20 mg PO DAILY melatonin 3 mg tablet 6 mg PO DAILY finasteride 5 mg tablet 5 mg PO DAILY polyethylene glycol 3350 [Miralax] 17 gram/dose powder 17 g PO DAILY PRN (Reason: constipation) Ozempic 2 mg/dose (8 mg/3 mL) pen injector 0.5 mg subcut QWEEK ustekinumab 90 mg/mL syringe 90 mg subcut .every 10 weeks ferrous sulfate 325 mg (65 mg iron) tablet,delayed release (DR/EC) 325 mg PO DAILY AsperFlex (lidocaine HCl) 4 % ointment 1 ea topical TID PRN (Reason: pain) lidocaine HCl 2 % gel 1 applic topical DAILY PRN (Reason: pain) Patient Comments: urethral pain pramoxine 1 % lotion 1 applic topical BID PRN (Reason: itching) acetaminophen [Tylenol] 325 mg capsule 975 mg PO TID PRN (Reason: fever or pain) aspirin [Adult Low Dose Aspirin] 81 mg tablet,delayed release (DR/EC) 81 mg PO DAILY guaifenesin 600 mg tablet extended release 12hr 600 mg PO BID PRN (Reason: congestion) sennosides 8.6 mg capsule 8.6 mg PO DAILY PRN (Reason: constipation) levothyroxine 75 mcg capsule 75 mcg PO DAILY cholecalciferol (vitamin D3) 50 mcg (2,000 unit) capsule 2,000 unit PO DAILY darbepoetin danielle in polysorbat 100 mcg/0.5 mL syringe 100 mcg subcut .q2week multivitamin Tablet 1 tab PO DAILY hydrocodone-acetaminophen 5-325 mg tablet 1 tab PO Q4H PRN (Reason: pain) nystatin 100,000 unit/gram powder 1 applic topical DAILY PRN (Reason: skin) cefuroxime axetil 250 mg tablet 250 mg PO DAILY Qty: 7 0RF Print Language: Luxembourgish Referrals: Physician,Non-Staff, MD [Primary Care Provider] - 1 week
[2023-09-10 22:30] LABS: Basophils Absolute Auto 0.1 10^3/uL (0.0-0.1); Basophils Percent Auto 0.7 % (0.2-2.0); Eosinophils Absolute Auto 0.5 10^3/uL (0.0-0.7); Eosinophils Percent Auto 3.6 % (0.9-7.0); Hematocrit 28.6 % (42.0-54.0); Hemoglobin 8.9 g/dL (14.0-18.0); Immature Granulocytes Abs Auto 0.07 10^3/uL (0.00-0.03); Immature Granulocytes Pct Auto 0.5 % (0.0-0.5); Lymphocytes Absolute Auto 1.3 10^3/uL (1.2-3.8); Lymphocytes Percent Auto 9.6 % (20.5-60.0); Mean Corpuscular HGB Conc 31.1 g/dL (29.9-35.2); Mean Corpuscular Hemoglobin 28.3 pg (25.9-34.0); Mean Corpuscular Volume 91.1 fL (80.0-94.0); Mean Platelet Volume 9.9 fL (9.5-13.5); Monocytes Absolute Auto 1.1 10^3/uL (0.3-0.8); Monocytes Percent Auto 8.4 % (1.7-12.0); Neutrophils Absolute Auto 10.4 10^3/uL (1.4-6.5); Neutrophils Percent Auto 77.2 % (43.0-75.0); Platelet Count 176 10^3/uL (150-450); Red Blood Count 3.14 10^6/uL (4.70-6.10); Red Cell Distribution Width 15.8 % (11.0-15.0); White Blood Count 13.4 10^3/uL (4.0-11.0)
[2023-09-10] MEDS: DICYCLOMINE HCL 10 MG CAPSULE 20 MG PO (22:33)
[2023-09-10] MEDS: 0.9 % SODIUM CHLORIDE 1,000 ML 1000 ML IV (22:33)
[2023-09-10 22:50] LABS: Alanine Aminotransferase 37 U/L (16-63); Albumin Globulin Ratio 0.6; Albumin Level 2.3 g/dL (3.4-5.0); Alkaline Phosphatase 143 U/L (46-116); Aspartate Amino Transferase 15 U/L (15-37); BUN Creatinine Ratio 15.4; Bilirubin Total 0.3 mg/dL (0.2-1.0); Calcium 9.1 mg/dL (8.5-10.1); Carbon Dioxide 20.5 mmol/L (21.0-32.0); Chloride 102 mmol/L (98-107); Estimated GFR (African America 10 (>=60); Estimated GFR (Non-African Ame 8 (>=60); Globulin 3.7 g/dL; Glucose 146 mg/dL (74-106); Potassium 3.5 mmol/L (3.5-5.1); Sodium 135 mmol/L (136-145)
[2023-09-10 22:53] LABS: Lactate/Lactic Acid 2.4 mmol/L (0.4-2.0)
--- NOTE | 2023-09-10 23:35 | CT_ITS ---
The [address] [address] Patient Name: MATT HONEYCUTT MRN: [id number] date: 1950 Sex: M Assigned Patient Location: ER Current Patient Location: ER Accession/Order Number: [id number] Exam Date: 09/10/2023 23:57 Report Date: 09/11/2023 02:32 At the request of: DARIO MARKER Procedure: CT abdomen pelvis wo con EXAMINATION: CT abdomen pelvis wo con HISTORY: diarrhea, abd pain abdominal pain, cramping for 5 days. Bloody Wooten catheter bag for 2 weeks. COMPARISON: 09/05/2022 TECHNIQUE: CT abdomen pelvis without contrast Dose reduction techniques were achieved by using: automated exposure control and/or adjustment of mA and /or kV according to patient size and/or use of iterative reconstruction technique. FINDINGS: No airspace consolidation in the included lung bases. CT abdomen: No focal lesions in the liver, spleen, pancreas. Cholecystectomy. 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 There is interval placement of bilateral ureteral stents, with tips in the bilateral renal pelvis and bladder. Numerous bilateral nonobstructing calculi remain present. No hydronephrosis or appreciable hydroureter. The calculi measure up to 2 cm in the right kidney. CT PELVIS: Mild circumferential wall thickening of the sigmoid colon. Gas and stool distends the colon. No abnormal small bowel distention. No free fluid or free air. Heavy atherosclerotic calcification of the abdominal aorta. Urinary bladder is decompressed by Wooten catheter. There is osteopenia. CT/CT abdomen pelvis wo con IMPRESSION: 1. There are new bilateral ureteral stents identified, with tips appearing to be appropriate in the bilateral renal pelvis and the urinary bladder. There are numerous nonobstructing bilateral renal calculi identified. No evidence for hydronephrosis or hydroureter. 2. A Wooten catheter is visualized, with the urinary bladder decompressed. Small amount of gas in the bladder, likely related to instrumentation. This can be correlated with urinalysis to exclude less likely possibility of infection. 3. Circumferential wall thickening of the sigmoid colon and the rectum, with surrounding inflammatory stranding. This could represent nonspecific colitis. 4. There is a small amount of liquid material in the distal colon, which can present as diarrhea. Electronically authenticated by: THUY UNDERWOOD Date: 09/11/2023 02:32
[2023-09-11] VITALS (20 sets, daily range): BP systolic 124–150; BP diastolic 69–81; PULSE 75–95; TEMP 36–36.6; O2SAT 96–100; BMI 38.4
[2023-09-11] MEDS: 0.9 % SODIUM CHLORIDE 1,000 ML 125 ML IV (00:49)
[2023-09-11 00:59] LABS: Lactate/Lactic Acid 0.8 mmol/L (0.4-2.0)
--- OUTSIDE RECORDS SUMMARY | 2023-09-11 02:46 | XMS_ITS ---
Patient Summarization (C-CDA 2.1 CCD) Created on: September 11, 2023 TANGELAMATT : 1950 Sex: Male Author Organization Sample organization Care Team Providers Care Rf Test Engineer Name Role Phone Unavailable Primary Care Provider UnavailROBERTO Raman Consulting Unavailable DIAB ., GAVIOTA Attending Unavailable DIAB ., GAVIOTA Admitting Unavailable MISC, DR YODER Primary Care Unavailable DIAB ., GAVIOTA Consulting Unavailable REQUEST, DR NONE LISTED Primary Care Unavailaudrey HALLMAN, DR REJI Vidal Consulting Unavailabl e REINECK, DR REJI Vidal Attending Unavailabl e LEXX, DR REJI Vidal Admitting Unavailabl e GRECHNY ., KENDRA MERIDA Consulting Unavailangela e HAY ., DR BARAJAS Attending Unavailable HAY ., DR BARAJAS Admitting Unavailable REQUEST, DR BOOTH LISTED Primary Care Unavailaudrey MAAYA, MARQUES Consulting Unavailable PAY ., DR GRAVES Consulting Unavailable PAY ., DR GRAVES Attending Unavailable PAY ., DR GRAVES Admitting Unavailable REQUEST, DR BOOTH LISTED Primary Care Unavaila YOAN Grady Consulting Unavailable PAY ., DR GRAVES Consulting Unavailable SHAIKH Irasema HUNTLEY Attending Unavailable SHAIKH Irasema HUNTLEY Admitting Unavailable MISC, DR YODER Primary Care Unavailable MORTEZA .DEVANTE Consulting Unavailable SHAIKH Irasema HUNTLEY Consulting Unavailable STRAWGLORIA MARQUES Consulting Unavailable ELEANOR ., PASHA Consulting Unavailable GWENDOLYN WARREN Consulting Unavailable ЕЛЕНА OLSEN Referring Unavailable Nasim CRAMER Attending Unavailable Erik Sanderson Unavailable Devaughn Lucio Unavailable Eldon López Attending Unavailable Nasim Cramer Consulting Unavailable Kyaw Olsen Admitting Unavailable Morteza (Clinic)Riana Primary Care UnavailNorma Maya Consulting Unavailable Lucretia Peralta Consulting Unavailable Erik Sanderson Consulting Unavailable Sarahi Walden Consulting Unavailable Jesús Dinero Consulting Unavailable Umang aYn MELANIE J Referring Unavailable Allergies Allergy Classification Reported Allergen(s) Allergy Type Date of Onset Reaction(s) Facility Penicillins (antibiotic) (1 source) Penicillins Drug Allergy 02-06-20 [facility] (1 source) Penicillins Propensity to adverse reactions to drug 02-06-20 [facility] [place], [place] (2 sources) Penicillin; Translations: [penicillin] Drug Allergy [facility] Repository (2 sources) Sulfamethoxazole / Trimethoprim; Translations: [Bactrim] Drug Allergy [facility] Repository (1 source) No Known Medication Allergies; Translations: [No Known Medication Allergies] Propensity to adverse reactions (disorder) [facility] Repository (3 sources) Penicillin G Drug Allergy Unknown [facility] Other (3 sources) Sulfamethoxazole / Trimethoprim Drug Allergy Unknown [facility] Other (1 source) Penicillins Drug allergy (disorder) 08-31-19 [facility] Repository (1 source) Sulfamethoxazole Drug Allergy 08-31-19 [facility] Repository (1 source) Trimethoprim Drug Allergy 08-31-19 [facility] Repository Encounters Encounter Date Encounter Type Care Provider Facility Start: 01-17-2023 End: 01-18-2023 ambulatory BLANCA VARGAS [facility] Start: 10-21-2022 End: 10-21-2022 ambulatory Devaughn Khadijah Other [facility] Other Start: 10-21-2022 Telephone encounter Devaughn Khadijah [facility] Start: 10-18-2022 End: 10-18-2022 ambulatory Devaughn Khadijah Other [facility] Other Start: 10-18-2022 Telephone encounter Devaughn Khadijah [facility] Start: 10-08-2022 End: 10-08-2022 ambulatory Devaughn Khadijah Other [facility] Other Start: 10-08-2022 Office outpatient visit 15 minutes Devaughn Khadijah [facility] Start: 10-01-2022 End: 10-01-2022 ambulatory Erik Sanderson Other [facility] Other Start: 10-01-2022 Office outpatient visit 25 minutes Erik Sanderson [facility] Vascular Surgery Start: 08-31-2022 End: 09-01-2022 ambulatory ЕЛЕНА OLSEN Facility::[id number] Start: 08-30-2022 End: 09-04-2022 Evaluation and management of inpatient Eldon López Facility:[facility] Start: 07-05-2022 End: 07-07-[address] ERIK RHODES . Facility: Start: 05-04-2022 End: 05-04-2022 ambulatory ROBERTO HEBERT Facility: Start: 04-19-2022 End: 04-19-[address] ERIK RHODES . Facility: Start: 03-14-2022 End: 03-14-[address] BOOTH LISTED REQUEST Facility: Start: 10-24-2021 End: 10-24-2021 ambulatory KENDRA KEVIN . Facility: Start: 08-29-2020 End: 08-29-2020 Subsequent hospital visit by physician [facility] Start: 02-03-2020 End: 02-03-2020 Subsequent hospital visit by physician [facility] Medications Current Medications Medication Drug Class(es) Dates [...] mouth every morning (before breakfast) 0 Active [id number] 200 actuat albuterol 0.09 mg/actuat metered dose [...] a day Active take 1 tablet by twice daily at mealtime carvedilol (COREG) 6.25 MG tablet Take 6.25 mg by mouth 2 times daily (with meals) 0 Active Cholecalciferol (3 sources) Vitamin D take 1 tablet by mouth once daily Cholecalciferol 50 MCG (1999 UT) 1 tablet Orally Once a day [...] Once a day Active polyethylene glycol 3350 80244 mg powder for oral solution (3 sources) [...] mg/ml enema (2 sources) Sodium Phosphate s (PRIYA) 7-19 GM/118ML Place 1 enema rectally once [...] with food Orally Twice a day Active Payers Date Payer Category Payer Self-pay 2022 Unknown [id number] 2022 Medicare [id number] 2020 Medicare [id number] 2019 Medicare [id number] 2019 Unknown [id number] 2014 Medicare HUMANA MEDICARE [facility] [id number] 2014-Present [address] [address] [place] [address] [id number] 1950 Unknown [id number] 1950 Unknown [id number] 1950 Unknown [id number] 1950 Unknown [id number] 1950 Unknown [id number] 1950 Unknown [id number] 1950 Unknown [id number] Medicare [id number] Unknown [id number] Plan of Treatment Date Care Activity Detail Author Start: 12-13-2020 Influenza vaccination Flu vacc ine (Season Ended) [facility] [employer] Phone: Start: 04-30-2020 Creatinine measurement Creatinine mo nitoring [place], [place] Start: 04-30-2020 Potassium monitoring Potassium monit oring [place] Start: 12-14-2019 Influenza vaccination Flu vaccine (# 1) [place] Start: 02-08-2019 Annual Wellness Visi t (AWV) Annual Wellness Visit (AWV) [place] Start: 09-11-2015 Pneumococcal 65+ yea rs Vaccine (1 of 1 - PPSV23) Pneumococcal 65+ years Vaccine (1 of 1 - PPSV23) [place], [place] Start: 2000 Screening for malign ant neoplasm of colon Colon cancer screen colonoscopy [place], [place] Start: 2000 Shingles Vaccine (1 of 2) Ordoñez gles Vaccine (1 of 2) [place] Start: 1969 DTaP/Tdap/Td vaccine (1 - Tdap) DTaP/Tdap/Td vaccine (1 - Tdap) [place] Start: 1962 COVID-19 Vaccine (1) COVID-19 Vaccin e (1) [facility] [employer] Work Phone: Start: 1960 Lipid panel Lipid screen [place], [place] Start: 1950 Hepatitis C screening Hepatitis C sc betty [place], [place] End: 02-03-2020 Culture, Urine Culture, Urine Microbiology Routine Once for 1 Occurrences starting 02/03/2020 until 02/03/2020 [place] Comment on above: Once for 1 Occurrenc es starting 02/03/2020 until 02/03/2020 Culture, Urine [place] End: 08-29-2020 Culture, Urine Culture, Urine Microbiology Routine Once for 1 Occurrences starting 08/29/2020 until 08/29/2020 [facility] [employer] Work Phone: Comment on above: Once for 1 Occurrenc es starting 08/29/2020 until 08/29/2020 Problems Active Problems Problem Classification Problem Date [...] disease (2 sources) Atherosclerotic heart disease of [place] coronary artery without angina pectoris; Translations: [Chronic [...] Onset: 2 Chronic Other aftercare (1 source) 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; Translations: [ORACLE ENGINEER CURRENT USE OF ASPIRIN] Onset: 3 Episodic Other aftercare (1 source) Other insurance account representative (current) drug therapy; Translations: [OTH ORACLE ENGINEER CURRENT DRUG THERAPY] Onset: 3 Episodic Other aftercare (1 source) skilled nursing (current) use of insulin; Translations: [SNF CURRENT [...] OF LEFT LOWER LIMB] Onset: 10-24-2021 Episodic Procedures Date Procedure Procedure Detail Performing Clinician Start: 08-31-2022 Antibody screen Eldon López Comment on above: Order Comment: NEEDS DRAWN Result Comment: PERF ORMED BY: [facility] [address] [facility] [place] [address] PATHOLOGIST DIGITAL DESIGNER BRANDEN WHATLEY M.D. Start: 08-29-2020 Urinalysis microscop ic only Riana Pro DO Work Phone: Start: 08-29-2020 Urnls dip stick/tabl et rgnt auto w/o microscopy Riana Pro DO Work Phone: Start: 02-03-2020 Urinalysis microscop ic only Riana Pro Work Phone: Start: 02-03-2020 Urnls dip stick/tabl et rgnt auto w/o microscopy Riana Pro Work Phone: Results Test Name Value Interpretation Reference Range Facility Cult,Urineon 01-19-2023 Cult,Urine Specimen Description .CATHETERIZED URINE Culture NO SIGNIFICANT GROWTH Report Status FINAL 01/19/2023 Normal [facility] Comment on above: Performed By: #### U RC #### [facility] [employer] [address] [place] [address] [employer] Network Engineer: Fredis Miller MD [facility] [address] [place], [place] [id number] [employer] Network Engineer: Rao Espinosa MD UA w/Reflex Cultureon 2022 Bilirubin, SemiQt,Ur Negative Normal NEG [facility] Comment on above: Performed By: #### U MICAO, UAX #### [facility] [address] [place], [place] [id number] [employer] Network Engineer: Rao Espinosa MD Blood, Urine 2+ Abnormal NEG [facility] Comment on above: Performed By: #### U MICAO, UAX #### [facility] [address] [place] [address] [place] [address] [employer] Network Engineer: Rao Espinosa MD Clarity (U) Cloudy Abnormal CLEAR [facility] Comment on above: Performed By: #### U MICAO, UAX #### [facility] [address] [place] [address] [place], [place] [id number] [employer] Network Engineer: Rao Espinosa MD Color (U) Yellow Normal YEL [facility] Comment on above: Performed By: #### U MICAO, UAX #### [facility] [address] [place] [address] [place] [address] [employer] Network Engineer: Rao Espinosa MD Glucose Ql (U) TRACE Abnormal NEG [facility] Comment on above: Performed By: #### U MICAO, UAX #### [facility] [address] [place], [facility] [employer] Network Engineer: Rao Espinosa MD Ketones Ql (U) Negative Normal NEG [facility] Comment on above: Performed By: #### U MICAO, UAX #### [facility] [address] [place] [address] Dr[place], [place] [phone] [employer] Network Engineer: Rao Espinosa MD Leukocyte esterase Test strip Ql (U) LARGE Abnormal NEG [facility] Comment on above: Performed By: #### U MICAO, UAX #### [facility] [address] [place], [place] [id number] [employer] Network Engineer: Rao Espinosa MD Nitrite,Ur Positive Abnormal NEG [facility] Comment on above: Performed By: #### U MICAO, UAX #### [facility] [address] [place] [address] Dr[place], [place] [id number] [employer] Network Engineer: Rao Espinosa MD PH,Ur 7.0 Normal 5.0-9.0 [facility] Comment on above: Performed By: #### U MICAO, UAX #### [address] [place], [place] [phone] [employer] Network Engineer: Rao Espinosa MD Protein Ql (U) 1+ mg/dL Abnormal NEG [facility] Comment on above: Performed By: #### U MICAO, UAX #### [address] [place], [place] [phone] [employer] Network Engineer: Rao Espinosa MD Spec. [place],Ur 1.010 Normal 1.010-1.020 [facility] Comment on above: Performed By: #### U MICAO, UAX #### [address] [place], [place] [phone] [employer] Network Engineer: Rao Espinosa MD Urobilinogen,Ur Normal Normal 0.0-1.0 [facility] Comment on above: Performed By: #### U MICAO, UAX #### [address] [place], [place] [phone] [employer] Network Engineer: Rao Espinosa MD Urinalysis,Microon 3 Bacteria 3+ Abnormal NONE [facility] Comment on above: Performed By: #### U MICAO, UAX #### [address] [place], [place] [phone] [employer] Network Engineer: Rao Espinosa MD Epithelial cells LM Ql (Urine sed) 0 TO 2 Normal 0-5 [facility] Comment on above: Performed By: #### U RADHAO, UAX #### [facility] [address] [place] [address] [employer] Network Engineer: Rao Espinosa MD Urine RBC's 5 TO 10 Normal 0-2 [facility] Comment on above: Performed By: #### U MICAO, UAX #### [facility] [address] [place] [address] [employer] Network Engineer: Rao Espinosa MD Urine WBC's GREATER THAN 100 Normal 0-5 [facility] Comment on above: Performed By: #### U NANCY UAX #### [facility] [address] [place] [address] [employer] Network Engineer: Rao Espinosa MD Glucose Poct Glucometerson 0 09-04-2022 Glucose [Mass/Vol] 122 mg/dL Normal [facility] Comment on above: Result Comment: [facility] Glucose Reference Range is dependent on time and content of last meal. Glucose of more than 200 mg/dL in a nonstressed, ambulatory subject supports the diagnosis of Diabetes Mellitus. PERFORMED BY: [facility] [address] [place] [address] PATHOLOGIST DIGITAL DESIGNER BRANDEN WHATLEY M.D. Performed By: #### G LULS #### Point of Care testing , Renal Function Panelon 09-04 Albumin [Mass/Vol] 2.4 g/dL Low 3.5-5.7 [facility] Comment on above: Performed By: #### G LULS #### Point of Care testing , Anion gap [Moles/Vol] 14.8 mmol/L Normal 6.0-15.0 [facility] Comment on above: Performed By: #### G LULS #### Point of Care testing , Calcium [Mass/Vol] 8.6 mg/dL Normal 8.6-10.3 [facility] Comment on above: Performed By: #### G LULS #### Point of Care testing , Chloride [Moles/Vol] 99 mmol/L Normal 98-107 [facility] Comment on above: Performed By: #### G SUSIELS #### Point of Care testing , CO2 [Moles/Vol] 24.7 mmol/L Normal 21.0-31.0 [facility] Comment on above: Performed By: #### G LULS #### Point of Care testing , Creatinine [Mass/Vol] 6.52 mg/dL Significan t change up 0.70-1.30 [facility] Comment on above: Performed By: #### G LULS #### Point of Care testing , Creatinine Clr Calc Pharmacy 16.01 [facility] Comment on above: Result Comment: PERF ORMED BY: [facility] [address] [place] [address] PATHOLOGIST DIGITAL DESIGNER BRANDEN WHATLEY M.D. Performed By: #### G LULS #### Point of Care testing , GFR/1.73 sq M.predicted MDRD (S/P/Bld) [Vol rate/Area] 8.483 mL/min/{1.73_m2} [facility] Comment on above: Performed By: #### G LULS #### Point of Care testing , Glucose [Mass/Vol] 115 mg/dL High 70-100 [facility] Comment on above: Result Comment: [place] Glucose Reference Range is dependent on time and content of last meal. Glucose of more than 200 mg/dL in a nonstressed, ambulatory subject supports the diagnosis of Diabetes Mellitus. ADA recommended reference range Performed By: #### G LULS #### Point of Care testing , Phosphate [Mass/Vol] 6.4 mg/dL Normal 3.7-7.2 [facility] Comment on above: Performed By: #### G LULS #### Point of Care testing , Potassium [Moles/Vol] 4.5 mmol/L Normal 3.5-5.1 [facility] Comment on above: Performed By: #### G LULS #### Point of Care testing , Sodium [Moles/Vol] 134 mmol/L Low 136-145 [facility] Comment on above: Performed By: #### G LULS #### Point of Care testing , Urea nitrogen [Mass/Vol] 76 mg/dL High 7-25 [facility] Comment on above: Performed By: #### G LULS #### Point of Care testing , COVID-19 FRon 09-03-2022 SARS-CoV-2 (COVID-19) RNA JASON+probe Ql (Unsp spec) Negative Normal Negative [facility] Comment on above: Order Comment: Healt hcare Worker?: N Result Comment: Testing for SARS-CoV-2 by RT-PCR This test was developed and its performance characteristics determined by [employer] and validated at the [facility]. This test has not been FDA [...] is terminated or revoked sooner. PERFORMED BY: [facility] [address] [place] [address] PATHOLOGIST DIGITAL DESIGNER BRANDEN WHATLEY M.D. Performed By: #### F E and TIB, [id number], ODALIS #### [facility] [address] Glucose Poct Glucometerson 0 09-03-2022 Glucose [Mass/Vol] 140 mg/dL Normal [facility] Comment on above: Result Comment: [place] Glucose Reference Range is dependent on time and content of last meal. Glucose of more than 200 mg/dL in a nonstressed, ambulatory subject supports the diagnosis of Diabetes Mellitus. PERFORMED BY: [facility] [address] [place] [address] PATHOLOGIST DIGITAL DESIGNER BRANDEN WHATLEY M.D. Performed By: #### G LULS #### Point of Care testing , Glucose [Mass/Vol] 106 mg/dL Normal [facility] Comment on above: Result Comment: [facility] Glucose Reference Range is dependent on time and content of last meal. Glucose of more than 200 mg/dL in a nonstressed, ambulatory subject supports the diagnosis of Diabetes Mellitus. PERFORMED BY: [facility] [address] [place] [place] [address] PATHOLOGIST DIGITAL DESIGNER BRANDEN WHATLEY M.D. Performed By: #### G LULS #### Point of Care testing , Glucose [Mass/Vol] 111 mg/dL Normal [facility] Comment on above: Result Comment: [facility] Glucose Reference Range is dependent on time and content of last meal. Glucose of more than 200 mg/dL in a nonstressed, ambulatory subject supports the diagnosis of Diabetes Mellitus. PERFORMED BY: [facility] [address] [facility] [place] [address] PATHOLOGIST DIGITAL DESIGNER BRANDEN WHATLEY M.D. Performed By: #### G LULS #### Point of Care testing , Glucose [Mass/Vol] 152 mg/dL Normal [facility] Comment on above: Result Comment: [facility] Glucose Reference Range is dependent on time and content of last meal. Glucose of more than 200 mg/dL in a nonstressed, ambulatory subject supports the diagnosis of Diabetes Mellitus. PERFORMED BY: [facility] [address] [facility] [place] [address] PATHOLOGIST DIGITAL DESIGNER BRANDEN WHATLEY M.D. Performed By: #### G LULS #### Point of Care testing , Hemogram CBC Without Diffon 09-03-2022 Erythrocyte distribution width (RBC) [Ratio] 14.9 % High 12.0-14.8 [facility] Comment on above: Performed By: #### G LULS #### Point of Care testing , Hematocrit (Bld) [Volume fraction] 25.1 % Low 38.8-50.0 [facility] Comment on above: Performed By: #### G LULS #### Point of Care testing , Hemoglobin (Bld) [Mass/Vol] 8.4 g/dL Low 13.0-17.0 [facility] Comment on above: Performed By: #### G LULS #### Point of Care testing , MCH (RBC) [Entitic mass] 29.5 pg Normal 27.5-35.2 [facility] Comment on above: Performed By: #### G LULS #### Point of Care testing , MCV (RBC) [Entitic vol] 87.8 fL Normal 83.5-101 [facility] Comment on above: Performed By: #### G LULS #### Point of Care testing , Mean Corpuscular HGB Conc 33.5 g/dL Normal 32.5-35.6 [facility] Comment on above: Performed By: #### G LULS #### Point of Care testing , Platelet mean volume (Bld) [Entitic vol] 8.0 fL Normal 6.6-10.1 [facility] Comment on above: Result Comment: PERF ORMED BY: [facility] [address] [place] [address] PATHOLOGIST DIGITAL DESIGNER BRANDEN WHATLEY M.D. Performed By: #### G LULS #### Point of Care testing , Platelets (Bld) [#/Vol] 111 10*3/uL Significant change down 150-450 [facility] Comment on above: Performed By: #### G LULS #### Point of Care testing , RBC (Bld) [#/Vol] 2.86 10*6/uL Low 3.90-5.60 [facility] Comment on above: Performed By: #### G LULS #### Point of Care testing , WBC (Bld) [#/Vol] 8.1 10*3/uL Normal 4.1-10.5 [facility] Comment on above: Performed By: #### G LULS #### Point of Care testing , Hepatitis Acute Panelon 05-2 HBsAg Screen Negative Normal Negative [facility] Comment on above: Order Comment: pt no t in room Performed By: #### F E and TIBC, [id number], ODALIS #### [facility] [address] [place] [address] Hepatitis A Antibody IgM Negative Normal Negative [facility] Comment on above: Order Comment: pt no t in room Performed By: #### F E and TIBC, [id number], ODALIS #### [facility] [address] [place] [address] Hepatitis B Core Antibody IgM Negative Normal Negative [facility] Comment on above: Order Comment: pt no t in room Result Comment: Ve rified by repeat analysis Performed By: #### F E and TIBC, [id number], ODALIS #### [facility] [address] [place] [address] Hepatitis C Virus Antibody Non-Reactive Normal Non Reactive [facility] Comment on above: Order Comment: pt no t in room Performed By: #### F E and TIBC, [id number], ODALIS #### [facility] [address] [place] [address] Interpretation Hepatitis C Normal . [facility] Comment on above: Order Comment: pt no t in room Result Comment: Not infected with HCV unless early or acute infection is suspected (which may be delayed in an immunocompromised individual), or other evidence exists to indicate HCV infection. Performed By: #### F E and TIBC, [id number], ODALIS #### [facility] [address] [place] [address] Hepatitis B Core Antibodyon 09-03-2022 Hepatitis B Core Antibody Negative Normal Negative [facility] Comment on above: Order Comment: pt no t in room Result Comment: Perf ormed at: - [facility] [id number] [employer] Network Engineer: Mata Pérez PhD, Phone: [phone] PERFORMED BY: [place] [address] PATHOLOGIST DIGITAL DESIGNER BRANDEN WHATLEY M.D. Performed By: #### F E and TIBC, [id number], ODALIS #### [facility] [address] Hepatitis B Surface Antibody on 09-03-2022 Hepatitis B Surface Antibody Reactive Normal . [facility] Comment on above: Order Comment: pt no t in room Result Comment: Non Reactive: Inconsistent with immunity, less than 10 mIU/mL Reactive: Consistent with immunity, greater than 9.9 mIU/mL Performed By: #### F E and TIBC, [id number], ODALIS #### [facility] [address] Renal Function Panelon 09-03 Albumin [Mass/Vol] 2.4 g/dL Low 3.5-5.7 [facility] Comment on above: Performed By: #### G LULS #### Point of Care testing , Anion gap [Moles/Vol] 16.5 mmol/L High 6.0-15.0 [facility] Comment on above: Performed By: #### G LULS #### Point of Care testing , Calcium [Mass/Vol] 8.7 mg/dL Normal 8.6-10.3 [facility] Comment on above: Performed By: #### G LULS #### Point of Care testing , Chloride [Moles/Vol] 101 mmol/L Normal 98-107 [facility] Comment on above: Performed By: #### G LULS #### Point of Care testing , CO2 [Moles/Vol] 22.4 mmol/L Normal 21.0-31.0 [facility] Comment on above: Performed By: #### G LULS #### Point of Care testing , Creatinine [Mass/Vol] 8.19 mg/dL Significan t change up 0.70-1.30 [facility] Comment on above: Performed By: #### G LULS #### Point of Care testing , Creatinine Clr Calc Pharmacy 12.70 Normal [facility] Comment on above: Result Comment: PERF ORMED BY: [place] [address] PATHOLOGIST DIGITAL DESIGNER BRANDEN WHATLEY M.D. Performed By: #### G LULS #### Point of Care testing , GFR/1.73 sq M.predicted MDRD (S/P/Bld) [Vol rate/Area] 6.452 mL/min/{1.73_m2} Normal [facility] Comment on above: Performed By: #### G LULS #### Point of Care testing , Glucose [Mass/Vol] 112 mg/dL High 70-100 [facility] Comment on above: Result Comment: [facility] Glucose Reference Range is dependent on time and content of last meal. Glucose of more than 200 mg/dL in a nonstressed, ambulatory subject supports the diagnosis of Diabetes Mellitus. ADA recommended reference range Performed By: #### G LULS #### Point of Care testing , Phosphate [Mass/Vol] 6.7 mg/dL Normal 3.7-7.2 [facility] Comment on above: Performed By: #### G LULS #### Point of Care testing , Potassium [Moles/Vol] 4.9 mmol/L Normal 3.5-5.1 [facility] Comment on above: Performed By: #### G LULS #### Point of Care testing , Sodium [Moles/Vol] 135 mmol/L Low 136-145 [facility] Comment on above: Performed By: #### G LULS #### Point of Care testing , Urea nitrogen [Mass/Vol] 99 mg/dL High 7-25 [facility] Comment on above: Performed By: #### G LULS #### Point of Care testing , Stool Occult Blood (Immuno)o n 09-03-2022 Stool Occult Blood (Immuno) Occult Blood (Immuno) Positive for Occult Blood by Immunochemical Methodology Reference range = Negative PERFORMED BY: [place] [address] [place] [address] PATHOLOGIST DIGITAL DESIGNER BRANDEN WHATLEY M.D. [facility] Comment on above: Performed By: #### G LULS #### Point of Care testing , XR chest 1V portableon 09-03 XR chest 1V portable [facility] Main [address] [address] XRay Report Signed Patient: Matt Kelly MR#: [id number] : 1950 Acct:[id number] Age/Sex: 71 / M ADM Date: 08/30/22 Loc: Room: [address] [place] [address] Type: ADM IN Attending Dr: Eldon López [...] Rafi Morales M.D.09/03/2022 3:02 PM Dictation Location: [place] [address] Transcribed By: [facility] 09/03/22 1502 Dictated By: Rafi Morales II, MD 09/03/22 1501 Signed By: 09/03/22 1502 [facility] Complete Blood Count Auto Di ffon 09-02-2022 Basophils (Bld) [#/Vol] 0.1 10*3/uL Normal 0.0-0.2 [facility] Comment on above: Result Comment: PERF ORMED BY: [address] [address] PATHOLOGIST DIGITAL DESIGNER BRANDEN WHATLEY M.D. Performed By: #### G SUSIELS #### Point of Care testing , Basophils/100 WBC (Bld) 0.4 % Normal . [facility] Comment on above: Performed By: #### G SUSIELS #### Point of Care testing , Eosinophils (Bld) [#/Vol] 0.1 10*3/uL Normal 0.0-0.45 [facility] Comment on above: Performed By: #### G SUSIELS #### Point of Care testing , Eosinophils/100 WBC (Bld) 0.5 % Normal . [facility] Comment on above: Performed By: #### G SUSIELS #### Point of Care testing , Erythrocyte distribution width (RBC) [Ratio] 14.8 % Normal 12.0-14.8 [facility] Comment on above: Performed By: #### G SUSIELS #### Point of Care testing , Hematocrit (Bld) [Volume fraction] 26.7 % Low 38.8-50.0 [facility] Comment on above: Performed By: #### G SUSIELS #### Point of Care testing , Hemoglobin (Bld) [Mass/Vol] 8.7 g/dL Low 13.0-17.0 [facility] Comment on above: Performed By: #### G SUSIELS #### Point of Care testing , Lymphocytes (Bld) [#/Vol] 0.6 10*3/uL Low 1.00-4.8 [facility] Comment on above: Performed By: #### G SUSIELS #### Point of Care testing , Lymphocytes/100 WBC (Bld) 3.6 % Normal . [facility] Comment on above: Performed By: #### G SUSIELS #### Point of Care testing , MCH (RBC) [Entitic mass] 28.6 pg Normal 27.5-35.2 [facility] Comment on above: Performed By: #### G LULS #### Point of Care testing , MCV (RBC) [Entitic vol] 87.9 fL Normal 83.5-101 [facility] Comment on above: Performed By: #### G SUSIELS #### Point of Care testing , Mean Corpuscular HGB Conc 32.5 g/dL Normal 32.5-35.6 [facility] Comment on above: Performed By: #### Young FRANK #### Point of Care testing , Monocytes (Bld) [#/Vol] 0.9 10*3/uL High 0.0-0.8 [facility] Comment on above: Performed By: #### Young FRANK #### Point of Care testing , Monocytes/100 WBC (Bld) 5.9 % Normal . [facility] Comment on above: Performed By: #### Young FRANK #### Point of Care testing , Neutrophils (Bld) [#/Vol] 13.9 10*3/uL High 1.8-7.7 [facility] Comment on above: Performed By: #### Young FRANK #### Point of Care testing , Neutrophils/100 WBC (Bld) 89.6 % Normal . [facility] Comment on above: Performed By: #### Young FRANK #### Point of Care testing , NRBC% 0.1 /100{WBC} Normal 0-0.5 [facility] Comment on above: Performed By: #### Young FRANK #### Point of Care testing , Platelet mean volume (Bld) [Entitic vol] 7.8 fL Normal 6.6-10.1 [facility] Comment on above: Performed By: #### Young FRANK #### Point of Care testing , Platelets (Bld) [#/Vol] 146 10*3/uL Low 150-450 [facility] Comment on above: Performed By: #### Young FRANK #### Point of Care testing , RBC (Bld) [#/Vol] 3.04 10*6/uL Low 3.90-5.60 [facility] Comment on above: Performed By: #### Young FRANK #### Point of Care testing , WBC (Bld) [#/Vol] 15.5 10*3/uL High 4.1-10.5 [facility] Comment on above: Performed By: #### Young FRANK #### Point of Care testing , Comprehensive Metabolic Pane real 09-02-2022 Albumin [Mass/Vol] 2.5 g/dL Low 3.5-5.7 [facility] Comment on above: Performed By: #### C BC, RENAL, CMP ####[facility] [place] [address] [facility] Albumin/Globulin [Mass ratio] 0.8 {ratio} Normal [facility] Comment on above: Performed By: #### C BC, RENAL, CMP ####[place] [place] [address] [facility] ALP [Catalytic activity/Vol] 97 U/L Normal 34-104 [facility] Comment on above: Performed By: #### C BC, RENAL, CMP ####[place] [place] [address] [facility] ALT [Catalytic activity/Vol] 27 U/L Normal 7-52 [facility] Comment on above: Performed By: #### C BC, RENAL, CMP ####[place] [place] [address] [facility] Anion gap [Moles/Vol] 15.2 mmol/L High 6.0-15.0 [facility] Comment on above: Performed By: #### C BC, RENAL, CMP ####[place] [place] [address] [facility] AST [Catalytic activity/Vol] 14 U/L Normal 13-39 [facility] Comment on above: Performed By: #### C BC, RENAL, CMP ####[place] [place] [address] [facility] Bilirubin [Mass/Vol] 0.3 mg/dL Normal 0.3-1.0 [facility] Comment on above: Performed By: #### C BC, RENAL, CMP ####[place] [address] [place] [address] [facility] Calcium [Mass/Vol] 8.5 mg/dL Low 8.6-10.3 [facility] Comment on above: Performed By: #### C BC, RENAL, CMP ####[address] [place] [address] [facility] Chloride [Moles/Vol] 106 mmol/L Normal 98-107 [facility] Comment on above: Performed By: #### C BC, RENAL, CMP ####[place] [id number] [facility] CO2 [Moles/Vol] 20.3 mmol/L Low 21.0-31.0 [facility] Comment on above: Performed By: #### C BC, RENAL, CMP ####[address] Creatinine [Mass/Vol] 6.98 mg/dL High 0.70-1.30 [facility] Comment on above: Performed By: #### C BC, RENAL, CMP ####[address] Creatinine Clr Calc Pharmacy 14.33 [facility] Comment on above: Performed By: #### C BC, RENAL, CMP ####[address] GFR/1.73 sq M.predicted MDRD (S/P/Bld) [Vol rate/Area] 7.816 mL/min/{1.73_m2} [facility] Comment on above: Performed By: #### C BC, RENAL, CMP ####[place] [id number] [facility] Globulin (S) [Mass/Vol] 3.1 g/dL [facility] Comment on above: Performed By: #### C BC, RENAL, CMP ####[place] [id number] [facility] Glucose [Mass/Vol] 118 mg/dL High 70-100 [facility] Comment on above: Result Comment: [place] Glucose Reference Range is dependent on time and content of last meal. Glucose of more than 200 mg/dL in a nonstressed, ambulatory subject supports the diagnosis of Diabetes Mellitus. ADA recommended reference range Performed By: #### C BC, RENAL, CMP ####[address] Potassium [Moles/Vol] 5.5 mmol/L High 3.5-5.1 [facility] Comment on above: Performed By: #### C BC, RENAL, CMP ####[facility] [place] [id number] [facility] Protein [Mass/Vol] 5.6 g/dL Low 6.4-8.9 [facility] Comment on above: Performed By: #### C BC, RENAL, CMP ####[facility] [place] [id number] [facility] Sodium [Moles/Vol] 136 mmol/L Normal 136-145 [facility] Comment on above: Performed By: #### C BC, RENAL, CMP ####[place] [place] [id number] [facility] Urea nitrogen [Mass/Vol] 92 mg/dL High 7-25 [facility] Comment on above: Performed By: #### C BC, RENAL, CMP ####[place] [place] [id number] [facility] Consultation Noteon 09-03-19 23 Consultation Note [id number] .00CD:127 Normal [facility] Glucose Poct Glucometerson 0 09-02-2022 Commemt1 Glu2: Cleaned Meter Normal [facility] Comment on above: Result Comment: PERF ORMED BY: [facility] [address] [place] [id number] PATHOLOGIST DIGITAL DESIGNER BRANDEN WHATLEY M.D. Performed By: #### G LULS #### Point of Care testing , Glucose [Mass/Vol] 244 mg/dL Normal [facility] Comment on above: Result Comment: [facility] Glucose Reference Range is dependent on time and content of last meal. Glucose of more than 200 mg/dL in a nonstressed, ambulatory subject supports the diagnosis of Diabetes Mellitus. Performed By: #### G LULS #### Point of Care testing , Glucose [Mass/Vol] 161 mg/dL Normal [facility] Comment on above: Result Comment: [place] om Glucose Reference Range is dependent on time and content of last meal. Glucose of more than 200 mg/dL in a nonstressed, ambulatory subject supports the diagnosis of Diabetes Mellitus. PERFORMED BY: [facility] [address] [place] [address] PATHOLOGIST DIGITAL DESIGNER BRANDEN WHATLEY M.D. Performed By: #### G LUDAVID #### Point of Care testing , Insurance Correspondence Off ice09-02-2022 Insurance Correspondence Office [id number] [id number]:127 Normal [facility] Renal Function Panelon 09-02 Phosphate [Mass/Vol] 6.5 mg/dL Normal 3.7-7.2 [facility] Comment on above: Result Comment: PERF ORMED BY: [facility] [address] [facility] [place] [address] PATHOLOGIST DIGITAL DESIGNER BRANDEN WHATLEY M.D. Performed By: #### C BC, RENAL, CMP ####[place] [id number] [facility] Complete Blood Count Auto Di ffon 09-01-2022 Basophils (Bld) [#/Vol] 0.1 10*3/uL Normal 0.0-0.2 [facility] Comment on above: Result Comment: PERF ORMED BY: [facility] [address] [facility] [place] [address] PATHOLOGIST DIGITAL DESIGNER BRANDEN WHATLEY M.D. Performed By: #### R ENAL, CBC, CMP ####[place] [id number] [facility] Basophils/100 WBC (Bld) 1.2 % Normal . [facility] Comment on above: Performed By: #### R ENAL, CBC, CMP ####[place] [id number] [facility] Eosinophils (Bld) [#/Vol] 0.3 10*3/uL Normal 0.0-0.45 [facility] Comment on above: Performed By: #### R ENAL, CBC, CMP ####[address] Eosinophils/100 WBC (Bld) 5.5 % Normal . [facility] Comment on above: Performed By: #### R ENAL, CBC, CMP ####[address] Erythrocyte distribution width (RBC) [Ratio] 14.7 % Normal 12.0-14.8 [facility] Comment on above: Performed By: #### R ENAL, CBC, CMP ####[address] Hematocrit (Bld) [Volume fraction] 25.2 % Low 38.8-50.0 [facility] Comment on above: Performed By: #### R ENAL, CBC, CMP ####[address] Hemoglobin (Bld) [Mass/Vol] 8.3 g/dL Low 13.0-17.0 [facility] Comment on above: Performed By: #### R ENAL, CBC, CMP ####[address] Lymphocytes (Bld) [#/Vol] 0.9 10*3/uL Low 1.00-4.8 [facility] Comment on above: Performed By: #### R ENAL, CBC, CMP ####[address] Lymphocytes/100 WBC (Bld) 14.6 % Normal . [facility] Comment on above: Performed By: #### R ENAL, CBC, CMP ####[address] MCH (RBC) [Entitic mass] 29.0 pg Normal 27.5-35.2 [facility] Comment on above: Performed By: #### R ENAL, CBC, CMP ####[place] [id number] [facility] MCV (RBC) [Entitic vol] 87.7 fL Normal 83.5-101 [facility] Comment on above: Performed By: #### R ENAL, CBC, CMP ####[address] Mean Corpuscular HGB Conc 33.0 g/dL Normal 32.5-35.6 [facility] Comment on above: Performed By: #### R ENAL, CBC, CMP ####[address] Monocytes (Bld) [#/Vol] 0.8 10*3/uL Normal 0.0-0.8 [facility] Comment on above: Performed By: #### R ENAL, CBC, CMP ####[address] Monocytes/100 WBC (Bld) 12.6 % Normal . [facility] Comment on above: Performed By: #### R ENAL, CBC, CMP ####[address] Neutrophils (Bld) [#/Vol] 4.0 10*3/uL Normal 1.8-7.7 [facility] Comment on above: Performed By: #### R ENAL, CBC, CMP ####[address] Neutrophils/100 WBC (Bld) 66.1 % Normal . [facility] Comment on above: Performed By: #### R ENAL, CBC, CMP ####[address] NRBC% 0.1 /100{WBC} Normal 0-0.5 [facility] Comment on above: Performed By: #### R ENAL, CBC, CMP ####[address] Platelet mean volume (Bld) [Entitic vol] 7.9 fL Normal 6.6-10.1 [facility] Comment on above: Performed By: #### R ENAL, CBC, CMP ####[address] Platelets (Bld) [#/Vol] 145 10*3/uL Low 150-450 [facility] Comment on above: Performed By: #### Fadia VARNER CBC, CMP ####[address] RBC (Bld) [#/Vol] 2.87 10*6/uL Low 3.90-5.60 [facility] Comment on above: Performed By: #### Fadia VARNER CBC, CMP ####[address] WBC (Bld) [#/Vol] 6.1 10*3/uL Normal 4.1-10.5 [facility] Comment on above: Performed By: #### Fadia VARNER CBC, CMP ####[address] Comprehensive Metabolic Pane real 09-01-2022 Albumin [Mass/Vol] 2.7 g/dL Low 3.5-5.7 [facility] Comment on above: Performed By: #### Fadia VARNER CBC, CMP ####[address] Albumin/Globulin [Mass ratio] 0.9 {ratio} Normal [facility] Comment on above: Performed By: #### Fadia VARNER CBC, CMP ####[address] ALP [Catalytic activity/Vol] 107 U/L High 34-104 [facility] Comment on above: Performed By: #### R ENDEVORA, CBC, CMP ####[address] ALT [Catalytic activity/Vol] 32 U/L Normal 7-52 [facility] Comment on above: Performed By: #### R ENAL, CBC, CMP ####[address] Anion gap [Moles/Vol] 14.1 mmol/L Normal 6.0-15.0 [facility] Comment on above: Performed By: #### R TELLY CBC, CMP ####[address] [address] [facility] AST [Catalytic activity/Vol] 21 U/L Normal 13-39 [facility] Comment on above: Performed By: #### R TELLY, CBC, CMP ####[address] [address] [facility] Bilirubin [Mass/Vol] 0.4 mg/dL Normal 0.3-1.0 [facility] Comment on above: Performed By: #### R TELLY, CBC, CMP ####[address] [address] [facility] Calcium [Mass/Vol] 8.9 mg/dL Normal 8.6-10.3 [facility] Comment on above: Performed By: #### Fadia VARNER, CBC, CMP ####[place] [id number] [facility] Chloride [Moles/Vol] 110 mmol/L High 98-107 [facility] Comment on above: Performed By: #### R TELLY CBC, CMP ####[place] [id number] [facility] CO2 [Moles/Vol] 17.7 mmol/L Low 21.0-31.0 [facility] Comment on above: Performed By: #### R TELLY, CBC, CMP ####[place] [id number] [facility] Creatinine [Mass/Vol] 6.68 mg/dL Significan t change up 0.70-1.30 [facility] Comment on above: Performed By: #### R ENDEVORA, CBC, CMP ####[place] [id number] [facility] Creatinine Clr Calc Pharmacy 14.96 Normal [facility] Comment on above: Performed By: #### R ENDEVORA, CBC, CMP ####[place] [id number] [facility] GFR/1.73 sq M.predicted MDRD (S/P/Bld) [Vol rate/Area] 8.239 mL/min/{1.73_m2} [facility] Comment on above: Performed By: #### R JANET VARNER, CMP ####[address] Globulin (S) [Mass/Vol] 3.0 g/dL Normal [facility] Comment on above: Performed By: #### JANET WYNN, CMP ####[place] [id number] [facility] Glucose [Mass/Vol] 90 mg/dL Normal 70-100 [facility] Comment on above: Result Comment: [facility] Glucose Reference Range is dependent on time and content of last meal. Glucose of more than 200 mg/dL in a nonstressed, ambulatory subject supports the diagnosis of Diabetes Mellitus. ADA recommended reference range Performed By: #### JANET WYNN, CMP ####[place] [id number] [facility] Potassium [Moles/Vol] 4.8 mmol/L Normal 3.5-5.1 [facility] Comment on above: Performed By: #### JANET WYNN, CMP ####[place] [id number] [facility] Protein [Mass/Vol] 5.7 g/dL Low 6.4-8.9 [facility] Comment on above: Performed By: #### JANET WYNN, CMP ####[place] [id number] [facility] Sodium [Moles/Vol] 137 mmol/L Normal 136-145 [facility] Comment on above: Performed By: #### R JANET VARNER, CMP ####[place] [id number] [facility] Urea nitrogen [Mass/Vol] 83 mg/dL High 7-25 [facility] Comment on above: Performed By: #### JANET WYNN, CMP ####[place] [id number] [facility] Glucose Poct Glucometerson 0 09-01-2022 Commemt1 Glu2: Cleaned Meter Normal [facility] Comment on above: Result Comment: PERF ORMED BY: [facility] [address] [place] [address] PATHOLOGIST DIGITAL DESIGNER BRANDEN WHATLEY M.D. Performed By: #### G LULS #### Point of Care testing , Glucose [Mass/Vol] 100 mg/dL Normal [facility] Comment on above: Result Comment: [place] om Glucose Reference Range is dependent on time and content of last meal. Glucose of more than 200 mg/dL in a nonstressed, ambulatory subject supports the diagnosis of Diabetes Mellitus. PERFORMED BY: [facility] [address] [place] [address] PATHOLOGIST DIGITAL DESIGNER BRANDEN WHATLEY M.D. Performed By: #### G LULS ####Point of Care testing, Glucose [Mass/Vol] 96 mg/dL Normal [facility] Comment on above: Result Comment: [place] [facility] Glucose Reference Range is dependent on time and content of last meal. Glucose of more than 200 mg/dL in a nonstressed, ambulatory subject supports the diagnosis of Diabetes Mellitus. Performed By: #### G LULS #### Point of Care testing , Glucose [Mass/Vol] 95 mg/dL Normal [facility] Comment on above: Result Comment: [place] [facility] Glucose Reference Range is dependent on time and content of last meal. Glucose of more than 200 mg/dL in a nonstressed, ambulatory subject supports the diagnosis of Diabetes Mellitus. PERFORMED BY: [facility] [address] [place] [id number] PATHOLOGIST DIGITAL DESIGNER BRANDEN WHATLEY M.D. Performed By: #### G LULS #### Point of Care testing , Renal Function Panelon 09-01 Phosphate [Mass/Vol] 7.0 mg/dL Normal 3.7-7.2 [facility] Comment on above: Result Comment: PERF ORMED BY: [facility] [address] [place] [address] PATHOLOGIST DIGITAL DESIGNER BRANDEN WHATLEY M.D. Performed By: #### R ENAL, CBC, CMP ####[facility] [id number] [place] [address] [place] ABO/Rh Retypeon 08-31-2022 ABO/RH Recheck Result Negative Normal [facility] Comment on above: Order Comment: NEEDS DRAWN Result Comment: PERF ORMED BY: [place] [address] PATHOLOGIST DIGITAL DESIGNER BRANDEN WHATLEY M.D. Basic Metabolic Panelon 08-13 Anion gap [Moles/Vol] 16.5 mmol/L High 6.0-15.0 [facility] Comment on above: Performed By: #### F E and TIBC, [id number], ODALIS #### [facility] [address] Calcium [Mass/Vol] 8.3 mg/dL Low 8.6-10.3 [facility] Comment on above: Performed By: #### F E and TIBC, [id number], ODALIS #### [facility] [address] Chloride [Moles/Vol] 111 mmol/L High 98-107 [facility] Comment on above: Performed By: #### F E and TIBC, [id number], ODALIS #### [facility] [address] CO2 [Moles/Vol] 14.2 mmol/L Low 21.0-31.0 [facility] Comment on above: Performed By: #### F E and TIBC, [id number], ODALIS #### [facility] [address] [place] [address] [place] Creatinine [Mass/Vol] 5.39 mg/dL Significan t change up 0.70-1.30 [facility] Comment on above: Performed By: #### F E and TIBC, [id number], ODALIS #### [facility] [address] [place] [address] [place] Creatinine Clr Calc Pharmacy 18.62 Normal [facility] Comment on above: Performed By: #### F E and TIBC, [id number], ODALIS #### [facility] [address] GFR/1.73 sq M.predicted MDRD (S/P/Bld) [Vol rate/Area] 10.659 mL/min/{1.73_m2} Normal [facility] Comment on above: Performed By: #### F E and TIBC, [id number], ODALIS #### [facility] [address] Glucose [Mass/Vol] 104 mg/dL High 70-100 [facility] Comment on above: Result Comment: [facility] Glucose Reference Range is dependent on time and content of last meal. Glucose of more than 200 mg/dL in a nonstressed, ambulatory subject supports the diagnosis of Diabetes Mellitus. ADA recommended reference range Performed By: #### F E and TIBC, [id number], ODALIS #### [address] Potassium [Moles/Vol] 4.7 mmol/L Normal 3.5-5.1 [facility] Comment on above: Performed By: #### F E and TIBC, [id number], ODALIS #### [address] Sodium [Moles/Vol] 137 mmol/L Normal 136-145 [facility] Comment on above: Performed By: #### F E and TIBC, [id number], ODALIS #### [address] Urea nitrogen [Mass/Vol] 73 mg/dL High 7-25 [facility] Comment on above: Performed By: #### F E and TIBC, [id number], ODALIS #### [address] Complete Blood Count Auto Di ffon 08-31-2022 Basophils (Bld) [#/Vol] 0.0 10*3/uL Normal 0.0-0.2 [facility] Comment on above: Result Comment: PERF ORMED BY: [facility] [address] [place] [address] PATHOLOGIST DIGITAL DESIGNER BRANDEN WHATLEY M.D. Performed By: #### B MP, CBC, MG ####[address] Basophils/100 WBC (Bld) 0.8 % Normal . [facility] Comment on above: Performed By: #### B MP, CBC, MG ####[address] Eosinophils (Bld) [#/Vol] 0.2 10*3/uL Normal 0.0-0.45 [facility] Comment on above: Performed By: #### B MP, CBC, MG ####[address] Eosinophils/100 WBC (Bld) 4.2 % Normal . [facility] Comment on above: Performed By: #### B MP, CBC, MG ####[address] Erythrocyte distribution width (RBC) [Ratio] 14.9 % High 12.0-14.8 [facility] Comment on above: Performed By: #### B MP, CBC, MG ####[address] Hematocrit (Bld) [Volume fraction] 19.8 % Off scale low 38.8-50.0 [facility] Comment on above: Result Comment: Crit ical Result HCT:19.8 called to and read back by: [id number] on 08/31/2022 11:09:15 by:SULY. Performed By: #### B MP, CBC, MG ####[address] Hemoglobin (Bld) [Mass/Vol] 6.4 g/dL Low 13.0-17.0 [facility] Comment on above: Performed By: #### B MP, CBC, MG ####[address] Lymphocytes (Bld) [#/Vol] 0.8 10*3/uL Low 1.00-4.8 [facility] Comment on above: Performed By: #### B MP, CBC, MG ####[address] Lymphocytes/100 WBC (Bld) 14.6 % Normal . [facility] Comment on above: Performed By: #### B MP, CBC, MG ####[address] MCH (RBC) [Entitic mass] 28.7 pg Normal 27.5-35.2 [facility] Comment on above: Performed By: #### B MP, CBC, MG ####[address] MCV (RBC) [Entitic vol] 88.3 fL Normal 83.5-101 [facility] Comment on above: Performed By: #### B MP, CBC, MG ####[address] Mean Corpuscular HGB Conc 32.5 g/dL Normal 32.5-35.6 [facility] Comment on above: Performed By: #### B MP, CBC, MG ####[address] Monocytes (Bld) [#/Vol] 0.5 10*3/uL Normal 0.0-0.8 [facility] Comment on above: Performed By: #### B MP, CBC, MG ####[address] Monocytes/100 WBC (Bld) 9.8 % Normal . [facility] Comment on above: Performed By: #### B MP, CBC, MG ####[address] Neutrophils (Bld) [#/Vol] 3.8 10*3/uL Normal 1.8-7.7 [facility] Comment on above: Performed By: #### B MP, CBC, MG ####[facility] Neutrophils/100 WBC (Bld) 70.6 % Normal . [facility] Comment on above: Performed By: #### B MP, CBC, MG ####[facility] [place] [id number] [facility] NRBC% 0.0 /100{WBC} Normal 0-0.5 [facility] Comment on above: Performed By: #### B MP, CBC, MG ####[place] [address] [address] Platelet mean volume (Bld) [Entitic vol] 7.7 fL Normal 6.6-10.1 [facility] Comment on above: Performed By: #### B MP, CBC, MG ####[place] [address] Platelets (Bld) [#/Vol] 142 10*3/uL Low 150-450 [facility] Comment on above: Performed By: #### B MP, CBC, MG ####[place] [address] RBC (Bld) [#/Vol] 2.24 10*6/uL Low 3.90-5.60 [facility] Comment on above: Performed By: #### B MP, CBC, MG ####[address] [address] [facility] WBC (Bld) [#/Vol] 5.4 10*3/uL Normal 4.1-10.5 [facility] Comment on above: Performed By: #### B MP, CBC, MG ####[place] [address] [place] [id number] [facility] Ferritinon 08-31-2022 Ferritin [Mass/Vol] 551.8 ng/mL High 23.9-336.2 [facility] Comment on above: Performed By: #### F E and TIBC, [id number], OADLIS #### [facility] [address] Glucose Poct Glucometerson 0 08-31-2022 Commemt1 Glu2: Cleaned Meter [facility] Comment on above: Result Comment: PERF ORMED BY: [place] [address] PATHOLOGIST DIGITAL DESIGNER BRANDEN WHATLEY M.D. Performed By: #### G LULS #### Point of Care testing , Commemt1 Glu2: Cleaned Meter [facility] Comment on above: Result Comment: PERF ORMED BY: [place] [address] PATHOLOGIST DIGITAL DESIGNER BRANDEN WHATLEY M.D. Performed By: #### G LULS #### Point of Care testing , Commemt1 Glu2: Cleaned Meter [facility] Comment on above: Result Comment: PERF ORMED BY: [place] [address] PATHOLOGIST DIGITAL DESIGNER BRANDEN WHATLEY M.D. Performed By: #### G LULS ####Point of Care testing, Glucose [Mass/Vol] 123 mg/dL Normal [facility] Comment on above: Result Comment: [facility] Glucose Reference Range is dependent on time and content of last meal. Glucose of more than 200 mg/dL in a nonstressed, ambulatory subject supports the diagnosis of Diabetes Mellitus. PERFORMED BY: [place] [address] PATHOLOGIST DIGITAL DESIGNER BRANDEN WHATLEY M.D. Performed By: #### F E and TIBC, [id number], ODALIS #### [address] Glucose [Mass/Vol] 126 mg/dL Normal [facility] Comment on above: Result Comment: [facility] Glucose Reference Range is dependent on time and content of last meal. Glucose of more than 200 mg/dL in a nonstressed, ambulatory subject supports the diagnosis of Diabetes Mellitus. Performed By: #### G LULS #### Point of Care testing , Glucose [Mass/Vol] 101 mg/dL Normal [facility] Comment on above: Result Comment: [place] om Glucose Reference Range is dependent on time and content of last meal. Glucose of more than 200 mg/dL in a nonstressed, ambulatory subject supports the diagnosis of Diabetes Mellitus. Performed By: #### G SUSIELS #### Point of Care testing , Glucose [Mass/Vol] 123 mg/dL Normal [facility] Comment on above: Result Comment: [place] om Glucose Reference Range is dependent on time and content of last meal. Glucose of more than 200 mg/dL in a nonstressed, ambulatory subject supports the diagnosis of Diabetes Mellitus. Performed By: #### G LULS ####Point of Care testing, Haptoglobinon 08-31-2022 Haptoglobin 189 mg/dL Normal 44-215 [facility] Comment on above: Result Comment: PERF ORMED BY: [place] [address] PATHOLOGIST DIGITAL DESIGNER BRANDEN WHATLEY M.D. Performed By: #### G ZAC #### Point of Care testing , Iron and TIBC Profileon 08-13 % Iron Saturation 27.5 % Normal 20-50 [facility] Comment on above: Performed By: #### F E and TIBC, [id number], ODALIS #### [address] Iron [Mass/Vol] 53 ug/dL Normal 50-212 [facility] Comment on above: Performed By: #### F E and TIBC, [id number], ODALIS #### [facility] [address] [place] [address] Total Iron Binding Capacity 193 ug/dL Low 255-450 [facility] Comment on above: Performed By: #### F E and TIBC, [id number], ODALIS #### [facility] [address] [place] [address] Transferrin [Mass/Vol] 138 mg/dL Low 203-362 [facility] Comment on above: Performed By: #### F E and TIBC, [id number], ODALIS #### [facility] [address] [place] [address] LDH Lactate Dehydrogenaseon 08-31-2022 LDH Lactate Dehydrogenase 100 U/L Low 140-271 [facility] Comment on above: Result Comment: PERF ORMED BY: [place] [address] PATHOLOGIST DIGITAL DESIGNER BRANDEN WHATLEY M.D. Performed By: #### G LULS #### Point of Care testing , LeukoReduced RBCon 3 LeukoReduced RBC TRANSFUSED 08/31/22 1822 Normal [facility] Magnesiumon 08-31-2022 Magnesium [Mass/Vol] 1.2 mg/dL Low 1.9-2.7 [facility] Comment on above: Result Comment: PERF ORMED BY: [place] [id number] PATHOLOGIST DIGITAL DESIGNER BRANDEN WHATLEY M.D. Performed By: #### F E and TIBC, [id number], ODALIS #### [address] Reticulocyte Counton 023 Reticulocyte Number 0.069 10*6/uL Normal 0.024-0.084 [facility] Comment on above: Result Comment: PERF ORMED BY: [place] [address] PATHOLOGIST DIGITAL DESIGNER BRANDEN WHATLEY M.D. Performed By: #### G LULS #### Point of Care testing , Reticulocyte Percent 2.7 % High 0.5-1.5 [facility] Comment on above: Performed By: #### G LULS #### Point of Care testing , Type and Screenon 08-31-2022 ABO and Rh group Nom (Bld) Blood group O Rh(D) negative Normal [facility] Comment on above: Order Comment: NEEDS DRAWN Result Comment: PERF ORMED BY: [place] [address] PATHOLOGIST DIGITAL DESIGNER BRANDEN WHATLEY M.D. Vit. B12/Folate Profileon Cobalamin (Vitamin B12) [Mass/Vol] 616 pg/mL Normal 180-914 [facility] Comment on above: Performed By: #### F E and TIBC, [id number], ODALIS #### [address] Folate 12.5 ng/mL Normal >5.9 [facility] Comment on above: Result Comment: Adrianna te reference range: >5.9 ng/ml The WHO technical consultation on folate and vitamin b12 deficiencies has determined that folate concentrations less than 4 ng/ml are considered deficient. PERFORMED BY: [place] [address] PATHOLOGIST DIGITAL DESIGNER BRANDEN WHATLEY M.D. Performed By: #### F E and TIBC, [id number], ODALIS #### [address] Blood Cultureon 08-30-2022 Bacteria identified Cx Nom (Bld) NO GROWTH 5 DAYS PERFORMED BY: [place] [address] PATHOLOGIST DIGITAL DESIGNER BRANDEN WHATLEY M.D. [facility] Comment on above: Performed By: #### G LULS #### Point of Care testing , CT abdomen pelvis wo conon 0 08-30-2022 CT abdomen pelvis wo con [facility] [place] [address] [place] [address] CT Scan Report Signed Patient: Matt Kelly MR#: [id number] : 1950 Acct:[id number] Age/Sex: 71 / M ADM Date: 08/30/22 Loc: ER Room: Type: [facility] ER Attending Dr: Copies to: Ragini Aguilar [...] Erik Larson M.D.08/30/2022 3:47 PM Dictation Location: [place] [address] Transcribed By: [facility] 08/30/22 1547 Dictated By: Erik Larson DO 08/30/22 1535 Signed By: 08/30/22 1547 Normal [facility] Complete Blood Count Auto Di ffon 08-30-2022 Basophils (Bld) [#/Vol] 0.1 10*3/uL Normal 0.0-0.2 [facility] Comment on above: Result Comment: PERF ORMED BY: [facility] [address] [place] [address] PATHOLOGIST DIGITAL DESIGNER BRANDEN WHATLEY M.D. Performed By: #### G LULS #### Point of Care testing , Basophils/100 WBC (Bld) 1.0 % Normal . [facility] Comment on above: Performed By: #### G SUSIELS #### Point of Care testing , Eosinophils (Bld) [#/Vol] 0.4 10*3/uL Normal 0.0-0.45 [facility] Comment on above: Performed By: #### G SUSIELS #### Point of Care testing , Eosinophils/100 WBC (Bld) 4.9 % Normal . [facility] Comment on above: Performed By: #### G SUSIELS #### Point of Care testing , Erythrocyte distribution width (RBC) [Ratio] 14.7 % Normal 12.0-14.8 [facility] Comment on above: Performed By: #### G SUSIELS #### Point of Care testing , Hematocrit (Bld) [Volume fraction] 24.2 % Low 38.8-50.0 [facility] Comment on above: Performed By: #### G SUSIELS #### Point of Care testing , Hemoglobin (Bld) [Mass/Vol] 8.0 g/dL Low 13.0-17.0 [facility] Comment on above: Performed By: #### G SUSIELS #### Point of Care testing , Lymphocytes (Bld) [#/Vol] 1.0 10*3/uL Normal 1.00-4.8 [facility] Comment on above: Performed By: #### G SUSIELS #### Point of Care testing , Lymphocytes/100 WBC (Bld) 13.4 % Normal . [facility] Comment on above: Performed By: #### G SUSIELS #### Point of Care testing , MCH (RBC) [Entitic mass] 29.4 pg Normal 27.5-35.2 [facility] Comment on above: Performed By: #### G SUSIELS #### Point of Care testing , MCV (RBC) [Entitic vol] 88.5 fL Normal 83.5-101 [facility] Comment on above: Performed By: #### G SUSIELS #### Point of Care testing , Mean Corpuscular HGB Conc 33.2 g/dL Normal 32.5-35.6 [facility] Comment on above: Performed By: #### Young FRANK #### Point of Care testing , Monocytes (Bld) [#/Vol] 0.8 10*3/uL Normal 0.0-0.8 [facility] Comment on above: Performed By: #### G ZAC #### Point of Care testing , Monocytes/100 WBC (Bld) 16.70 % Normal 0.00-20.00 [facility] Comment on above: Performed By: #### Young FRANK #### Point of Care testing , Monocytes/100 WBC (Bld) 10.1 % Normal . [facility] Comment on above: Performed By: #### Young FRANK #### Point of Care testing , Neutrophils (Bld) [#/Vol] 5.3 10*3/uL Normal 1.8-7.7 [facility] Comment on above: Performed By: #### Young FRANK #### Point of Care testing , Neutrophils/100 WBC (Bld) 70.6 % Normal . [facility] Comment on above: Performed By: #### Young FRANK #### Point of Care testing , NRBC% 0.1 /100{WBC} Normal 0-0.5 [facility] Comment on above: Performed By: #### Young FRANK #### Point of Care testing , Platelet mean volume (Bld) [Entitic vol] 7.7 fL Normal 6.6-10.1 [facility] Comment on above: Performed By: #### Young FRANK #### Point of Care testing , Platelets (Bld) [#/Vol] 181 10*3/uL Normal 150-450 [facility] Comment on above: Performed By: #### Young FRANK #### Point of Care testing , RBC (Bld) [#/Vol] 2.73 10*6/uL Low 3.90-5.60 [facility] Comment on above: Performed By: #### Young FRANK #### Point of Care testing , WBC (Bld) [#/Vol] 7.4 10*3/uL Normal 4.1-10.5 [facility] Comment on above: Performed By: #### Young FRANK #### Point of Care testing , Comprehensive Metabolic Pane real 08-30-2022 Albumin [Mass/Vol] 2.9 g/dL Low 3.5-5.7 [facility] Comment on above: Performed By: #### Young FRANK #### Point of Care testing , Albumin/Globulin [Mass ratio] 0.8 {ratio} Normal [facility] Comment on above: Performed By: #### Young FRANK #### Point of Care testing , ALP [Catalytic activity/Vol] 105 U/L High 34-104 [facility] Comment on above: Performed By: #### Young FRANK #### Point of Care testing , ALT [Catalytic activity/Vol] 31 U/L Normal 7-52 [facility] Comment on above: Performed By: #### Young FRANK #### Point of Care testing , Anion gap [Moles/Vol] 14.3 mmol/L Normal 6.0-15.0 [facility] Comment on above: Performed By: #### Young FRANK #### Point of Care testing , AST [Catalytic activity/Vol] 14 U/L Normal 13-39 [facility] Comment on above: Performed By: #### Young FRANK #### Point of Care testing , Bilirubin [Mass/Vol] 0.3 mg/dL Normal 0.3-1.0 [facility] Comment on above: Performed By: #### Young FRANK #### Point of Care testing , Calcium [Mass/Vol] 8.9 mg/dL Normal 8.6-10.3 [facility] Comment on above: Performed By: #### Young FRANK #### Point of Care testing , Chloride [Moles/Vol] 110 mmol/L High 98-107 [facility] Comment on above: Performed By: #### Young FRANK #### Point of Care testing , CO2 [Moles/Vol] 17.6 mmol/L Low 21.0-31.0 [facility] Comment on above: Performed By: #### Young FRANK #### Point of Care testing , Creatinine [Mass/Vol] 6.18 mg/dL High 0.70-1.30 [facility] Comment on above: Performed By: #### G SUSIELS #### Point of Care testing , Creatinine Clr Calc Pharmacy 16.08 [facility] Comment on above: Result Comment: PERF ORMED BY: [place] [address] PATHOLOGIST DIGITAL DESIGNER BRANDEN WHATLEY M.D. Performed By: #### G SUSIELS #### Point of Care testing , GFR/1.73 sq M.predicted MDRD (S/P/Bld) [Vol rate/Area] 9.045 mL/min/{1.73_m2} [facility] Comment on above: Performed By: #### G SUSIELS #### Point of Care testing , Globulin (S) [Mass/Vol] 3.5 g/dL [facility] Comment on above: Performed By: #### G SUSIELS #### Point of Care testing , Glucose [Mass/Vol] 105 mg/dL High 70-100 [facility] Comment on above: Result Comment: [place] Glucose Reference Range is dependent on time and content of last meal. Glucose of more than 200 mg/dL in a nonstressed, ambulatory subject supports the diagnosis of Diabetes Mellitus. ADA recommended reference range Performed By: #### G SUSIELS #### Point of Care testing , Potassium [Moles/Vol] 4.9 mmol/L Normal 3.5-5.1 [facility] Comment on above: Performed By: #### G SUSIELS #### Point of Care testing , Protein [Mass/Vol] 6.4 g/dL Normal 6.4-8.9 [facility] Comment on above: Performed By: #### G SUSIELS #### Point of Care testing , Sodium [Moles/Vol] 137 mmol/L Normal 136-145 [facility] Comment on above: Performed By: #### G SUSIELS #### Point of Care testing , Urea nitrogen [Mass/Vol] 84 mg/dL High 7-25 [facility] Comment on above: Performed By: #### G LULS #### Point of Care testing , Dipstick and Microscopicon 0 08-30-2022 Appearance (U) Turbid Critically abnormal Clear [facility] Comment on above: Order Comment: Name Collection Type:: Wooten Catheter Performed By: #### F E and TIBC, [id number], ODALIS #### [address] Bacteria,Urine 2+ High None Seen [facility] Comment on above: Order Comment: Name Collection Type:: Wooten Catheter Performed By: #### F E and TIBC, [id number], ODALIS #### [place] [address] [place] Bilirubin,Urine Negative Normal Negative [facility] Comment on above: Order Comment: Name Collection Type:: Wooten Catheter Performed By: #### F E and TIBC, [id number], ODALIS #### [place] [address] [place] Color (U) Yellow Normal Yellow [facility] Comment on above: Order Comment: Name Collection Type:: Wooten Catheter Performed By: #### F E and TIBC, [id number], ODALIS #### [address] Glucose Ql (U) 100 mg/dL High Normal [facility] Comment on above: Order Comment: Name Collection Type:: Wooten Catheter Performed By: #### F E and TIBC, [id number], ODALIS #### [place] [address] [place] Hyaline Casts,Urine None Seen Normal 0-1 [facility] Comment on above: Order Comment: Name Collection Type:: Wooten Catheter Performed By: #### F E and TIBC, [id number], ODALIS #### [place] [address] [place] Ketones Ql (U) Negative Normal Negative [facility] Comment on above: Order Comment: Name Collection Type:: Wooten Catheter Performed By: #### F E and TIBC, [id number], ODALIS #### [address] [place] [address] [place] Leukocyte esterase Test strip Ql (U) 4+ High Negative [facility] Comment on above: Order Comment: Name Collection Type:: Wooten Catheter Performed By: #### F E and TIBC, [id number], ODALIS #### [facility] [address] Nitrite,Urine Positive High Negative [facility] Comment on above: Order Comment: Name Collection Type:: Wooten Catheter Performed By: #### F E and TIBC, [id number], ODALIS #### [address] Occult Blood,Urine 3+ High Negative [facility] Comment on above: Order Comment: Name Collection Type:: Wooten Catheter Result Comment: PERF ORMED BY: [place] [address] PATHOLOGIST DIGITAL DESIGNER BRANDEN WHATLEY M.D. Performed By: #### F E and TIBC, [id number], ODALIS #### [address] Other Casts,Urine None Seen Normal None Seen [facility] Comment on above: Order Comment: Name Collection Type:: Wooten Catheter Performed By: #### F E and TIBC, [id number], ODALIS #### [address] pH (U) 6.0 [pH] Normal 5.0-9.0 [facility] Comment on above: Order Comment: Name Collection Type:: Wooten Catheter Performed By: #### F E and TIBC, [id number], ODALIS #### [address] Protein (U) [Mass/Vol] 100 mg/dL High Negative [facility] Comment on above: Order Comment: Name Collection Type:: Wooten Catheter Performed By: #### F E and TIBC, [id number], ODALIS #### [address] RBC,Urine 3-4 Normal 0-4 [facility] Comment on above: Order Comment: Name Collection Type:: Wooten Catheter Performed By: #### F E and TIBC, [id number], ODALIS #### [address] Specificy [place],Urine 1.011 Normal 1.001-1.030 [facility] Comment on above: Order Comment: Name Collection Type:: Wooten Catheter Performed By: #### F E and TIBC, [id number], ODALIS #### [address] Squamous Epithelial Cell,Urine 1-2 Normal 0-2 [facility] Comment on above: Order Comment: Name Collection Type:: Wooten Catheter Performed By: #### F E and TIBC, [id number], ODALIS #### [address] Urobilinogen,Urine Normal Normal Normal [facility] Comment on above: Order Comment: Name Collection Type:: Wooten Catheter Performed By: #### F E and TIBC, [id number], ODALIS #### [address] WBC,Urine Innumerable High 0-4 [facility] Comment on above: Order Comment: Name Collection Type:: Wooten Catheter Performed By: #### F E and TIBC, [id number], ODALIS #### [place] [address] [place] Yeast,Urine 2+ Critically abnormal None Seen [facility] Comment on above: Order Comment: Name Collection Type:: Wooten Catheter Result Comment: PERF ORMED BY: [place] [address] PATHOLOGIST DIGITAL DESIGNER BRANDEN WHATLEY M.D. Performed By: #### F E and TIBC, [id number], ODALIS #### [address] Glucose Poct Glucometerson 0 08-30-2022 Glucose [Mass/Vol] 100 mg/dL Normal [facility] Comment on above: Result Comment: [place] om Glucose Reference Range is dependent on time and content of last meal. Glucose of more than 200 mg/dL in a nonstressed, ambulatory subject supports the diagnosis of Diabetes Mellitus. PERFORMED BY: [place] [address] PATHOLOGIST DIGITAL DESIGNER BRANDEN WHATLEY M.D. Performed By: #### F E and TIBC, [id number], ODALIS #### [address] Glucose [Mass/Vol] 148 mg/dL Normal [facility] Comment on above: Result Comment: [facility] Glucose Reference Range is dependent on time and content of last meal. Glucose of more than 200 mg/dL in a nonstressed, ambulatory subject supports the diagnosis of Diabetes Mellitus. PERFORMED BY: [place] [address] PATHOLOGIST DIGITAL DESIGNER BRANDEN WHATLEY M.D. Performed By: #### G LUDAVID #### Point of Care testing , Urine Cultureon 08-30-2022 Bacteria identified Cx Nom (U) ORGANISM: Pseudomonas aeruginosa (O:PSEAER) [place] Count 30,000 Aerobic RONI Charge (NMIC56) ---- [...] RESISTANT TO ALL B-LACTAM DRUGS. PERFORMED BY: [place] [address] PATHOLOGIST DIGITAL DESIGNER BRANDEN WHATLEY M.D. Normal [facility] Comment on above: Performed By: #### F E and TIBC, [id number], ODALIS #### [address] PRBC LEUKOREDUCEDon 07-19-19 PRBC LEUKOREDUCED Cross Match Result Compatible Unit Blood Type O Neg Unit Number [id number] Status Information Transfused Product ID Red Blood Cells Product Code [id number] [facility] Comment on above: Performed By: #### P OCGLUC #### [facility] [address] [place] [address] [address] Dk Mahoney PRBC LEUKOREDUCED Cross Match Result Compatible Unit Blood Type O Neg Unit Number [id number] Status Information Transfused Product ID Red Blood Cells Product Code [id number] [facility] Comment on above: Performed By: #### P OCGLUC #### [facility] [address] [place] [address] [address] Dk Mahoney CULTURE URINEon 07-09-2022 CULTURE [...] Levofloxacin >=8 R F Normal [facility] Comment on above: Performed By: #### P OCGLUC #### [facility] [address] [place] [address] Dr. Dk Mahoney PROTEIN ELECTROPHERESISon Albumin [Mass/Vol] 2.7 g/dL Critically low 2.9-4.4 [facility] Comment on above: Performed By: #### M G, CMP, PHOS #### [facility] [address] [place] [address] Dr. Dk Mahoney Albumin/Globulin [Mass ratio] 0.9 {ratio} Normal 0.7-1.7 [facility] Comment on above: Performed By: #### M G, CMP, PHOS #### [facility] [address] [place] [address] Dr. Dk Mahoney Sfvkx-6-Ecyqzndy 0.2 g/dL Normal 0.0-0.4 [facility] Comment on above: Performed By: #### M G, CMP, PHOS #### [facility] [address] [place] [address] Dr. Dk Mahoney Ekxje-2-Ivwdvtyp 0.8 g/dL Normal 0.4-1.0 [facility] Comment on above: Performed By: #### M G, CMP, PHOS #### [facility] [address] [place] [address] Dr. Dk Mahoney Beta Globulin 1.0 g/dL Normal 0.7-1.3 [facility] Comment on above: Performed By: #### M G, CMP, PHOS #### [facility] [address] [place] [address] Dr. Dk Mahoney Gamma Globulin 1.1 g/dL Normal 0.4-1.8 [facility] Comment on above: Performed By: #### M G, CMP, PHOS #### [facility] [address] [place] [address] Dr. Dk Mahoney Globulin (S) [Mass/Vol] 3.1 g/dL Normal 2.2-3.9 [facility] Comment on above: Performed By: #### M Young, CMP, PHOS #### [facility] [address] [place] [address] [address] Dk Mahoney M-Primitivo Comment: Normal Not Observed [facility] Comment on above: Result Comment: SPE shows an asymmetrical gamma. Performed By: #### M G, CMP, PHOS #### [facility] [address] [place] [address] [address] Dk Mahoney PDF . Normal [facility] Comment on above: Performed By: #### M Young, CMP, PHOS #### [facility] [address] [place] [address] Dr. Dk Mahoney Please note: Comment Normal [facility] Comment on above: Result Comment: Prot ein electrophoresis scan will follow via computer, mail, or physician anesthesiologist delivery. Performed By: #### M Young CMP, PHOS #### [facility] [address] [place] [address] [address] Dk Mahoney Protein [Mass/Vol] 5.8 g/dL Critically low 6.0-8.5 [facility] Comment on above: Performed By: #### M Young CMP, PHOS #### [facility] [facility] [address] [place] [address] Dr. kD Mahoney PROTEIN ELECTROPHERESIS URIN E RANDOMon 07-09-2022 Albumin, U 23.2 % Normal [facility] Comment on above: Performed By: #### M G, CMP, PHOS #### [facility] [address] [place] [address] Dr. Dk Mahoney Alpha-1 Globulin U 3.6 % Normal [facility] Comment on above: Performed By: #### M G, CMP, PHOS #### [facility] [address] [place] [address] Dr. Dk Mahoney Alpha-2 Glubulin U 19.7 % Normal [facility] Comment on above: Performed By: #### M G, CMP, PHOS #### [facility] [address] [address] [address] Dk Mahoney Beta Globulin, U 31.4 % Normal [facility] Comment on above: Performed By: #### M G, CMP, PHOS #### [facility] [address] [address] [address] Dk Mahoney Gamma Globulin U 22.1 % Normal [facility] Comment on above: Performed By: #### M G, CMP, PHOS #### [facility] [address] [place] [address] Dr. Dk Mahoney M-Primitivo, % Comment: Normal Not Observed [facility] Comment on above: Result Comment: UPE shows an asymmetrical beta. Performed By: #### M G, CMP, PHOS #### [facility] [address] [place] [address] Dr. Dk Mahoney PDF . Normal [facility] Comment on above: Performed By: #### M G, CMP, PHOS #### [facility] [address] [place] [address] Dr. Dk Mahoney Please note: Comment Normal [facility] Comment on above: Result Comment: Prot ein electrophoresis scan will follow via computer, mail, or physician anesthesiologist delivery. Performed By: #### M G, CMP, PHOS #### [facility] [address] [place] [address] Dr. Dk Mahoney Protein (U) [Mass/Vol] 34.7 mg/dL Normal Not Estab. [facility] Comment on above: Performed By: #### M G, CMP, PHOS #### [facility] [address] [place] [address] Dr. Dk Mahoney CBC AUTO DIFFon 07-07-2022 BASO # 0.1 103/ul Normal 0.0-0.1 [facility] Comment on above: Performed By: #### M G, CMP, PHOS #### [facility] [address] [place] [address] Dr. Dk Mahoney Basophils/100 WBC (Bld) 0.9 % Normal 0.2-2.0 [facility] Comment on above: Performed By: #### M G, CMP, PHOS #### [facility] [address] [place] [address] Dr. Dk Mahoney EO # 0.2 103/ul Normal 0.0-0.7 [facility] Comment on above: Performed By: #### M G, CMP, PHOS #### [facility] [address] [place] [address] Dr. Dk Mahoney Eosinophils/100 WBC (Bld) 2.9 % Normal 0.9-7.0 [facility] Comment on above: Performed By: #### M G, CMP, PHOS #### [facility] [address] [place] [address] Dr. Dk Mahoney Erythrocyte distribution width (RBC) [Ratio] 15.0 % Normal 11.0-15.0 [facility] Comment on above: Performed By: #### M G, CMP, PHOS #### [facility] [address] [place] [address] Dr. Dk Mahoney Hematocrit (Bld) [Volume fraction] 24.4 % Critically low 42.0-54.0 [facility] Comment on above: Performed By: #### M G, CMP, PHOS #### [facility] [address] [place] [address] Dr. Dk Mahoney Hemoglobin (Bld) [Mass/Vol] 7.8 g/dL Critically low 14.0-18.0 [facility] Comment on above: Performed By: #### M G, CMP, PHOS #### [facility] [address] [place] [address] Dr. Dk Mahoney IG # 0.07 10e3/ul Critically high 0.00-0.03 [facility] Comment on above: Performed By: #### M G, CMP, PHOS #### [facility] [address] [place] [address] Dr. Dk Mahoney IG % 1.1 % Critically high 0.0-0.5 [facility] Comment on above: Performed By: #### M G, CMP, PHOS #### [facility] [address] [place] [address] Dr. Dk Mahoney LYMPH # 1.0 103/ul Critically low 1.2-3.8 The [facility] Comment on above: Performed By: #### M SHIREEN Vidal, PHOS #### [facility] [address] [place] [address] Dr. Dk Mahoney Lymphocytes/100 WBC (Bld) 15.4 % Critically low 20.5-60.0 [facility] Comment on above: Performed By: #### Rosmery Vidal CMP, PHOS #### [facility] [address] [place] [address] Dr. Dk Mahoney MANUAL DIFF REQ NO Normal [facility] Comment on above: Performed By: #### Rosmery Vidal CMP, PHOS #### [facility] [address] [place] [address] Dr. Dk Mahoney MCH (RBC) [Entitic mass] 29.3 pg Normal 25.9-34.0 [facility] Comment on above: Performed By: #### Rosmery Vidal CMP, PHOS #### [facility] [address] [place] [address] Dr. Dk Mahoney MCHC (RBC) [Mass/Vol] 32.0 g/dL Normal 29.9-35.2 [facility] Comment on above: Performed By: #### M SHIREEN Vidal, PHOS #### [facility] [address] [place] [address] Dr. Dk Mahoney MCV (RBC) [Entitic vol] 91.7 fL Normal 80.0-94.0 [facility] Comment on above: Performed By: #### Rosmery Vidal CMP, PHOS #### [facility] [address] [place] [address] Dr. Dk Mahoney MONO # 0.6 103/ul Normal 0.3-0.8 [facility] Comment on above: Performed By: #### M Young CMP, PHOS #### [facility] [address] [place] [address] Dr. Dk Mahoney Monocytes/100 WBC (Bld) 9.2 % Normal 1.7-12.0 [facility] Comment on above: Performed By: #### M G, CMP, PHOS #### [facility] [address] [place] [address] Dr. Dk Mahoney NEUT # 4.6 103/ul Normal 1.4-6.5 [facility] Comment on above: Performed By: #### M G, CMP, PHOS #### [facility] [address] [place] [address] Dr. Dk Mahoney Neutrophils/100 WBC (Bld) 70.5 % Normal 43.0-75.0 [facility] Comment on above: Performed By: #### M G, CMP, PHOS #### [facility] [address] [place] [address] Dr. Dk Mahoney Platelet mean volume (Bld) [Entitic vol] 10.1 fL Normal 9.5-13.5 [facility] Comment on above: Performed By: #### M G, CMP, PHOS #### [facility] [address] [place] [address] Dr. Dk Mahoney PLT 172 103/ul Normal 150-450 [facility] Comment on above: Performed By: #### M G, CMP, PHOS #### [facility] [address] [place] [address] Dr. Dk Mahoney RBC 2.66 106/ul Critically low 4.70-6.10 [facility] Comment on above: Performed By: #### M G, CMP, PHOS #### [facility] [address] [place] [address] Dr. Dk Mahoney WBC 6.5 103/ul Normal 4.0-11.0 [facility] Comment on above: Performed By: #### M G, CMP, PHOS #### [facility] [address] [place] [address] Dr. Dk Mahoney MAGNESIUMon 07-07-2022 Magnesium [Mass/Vol] 1.4 mg/dL Critically low 1.8-2.4 [facility] Comment on above: Performed By: #### M G, CMP, PHOS #### [facility] [address] [place] [address] Dr. Dk Mahoney PHOSPHORUSon 07-07-2022 Phosphate [Mass/Vol] 5.9 mg/dL Critically high 2.6-4.7 [facility] Comment on above: Performed By: #### M G, CMP, PHOS #### [facility] [address] [place] [address] Dr. Dk Mahoney POINT OF CARE GLUCOSEon 06-13 Glucose [Mass/Vol] 121 mg/dL Critically high 74-106 [facility] Comment on above: Performed By: #### M G, CMP, PHOS #### [facility] [address] [place] [address] Dr. Dk Mahoney PROF 14(COMP METB)on 023 Albumin [Mass/Vol] 2.4 g/dL Critically low 3.4-5.0 [facility] Comment on above: Performed By: #### M G, CMP, PHOS #### [facility] [address] [place] [address] Dr. Dk Mahoney Albumin/Globulin [Mass ratio] 0.6 {ratio} Normal [facility] Comment on above: Performed By: #### M G, CMP, PHOS #### [facility] [address] [place] [address] Dr. Dk Mahoney ALP [Catalytic activity/Vol] 128 U/L Critically high 46-116 [facility] Comment on above: Performed By: #### M G, CMP, PHOS #### [facility] [address] [place] [address] Dr. Dk Mahoney ALT [Catalytic activity/Vol] 49 U/L Normal 16-63 [facility] Comment on above: Performed By: #### M G, CMP, PHOS #### [facility] [address] [place] [address] Dr. Dk Mahoney Anion gap [Moles/Vol] 16.3 mmol/L Normal [facility] Comment on above: Performed By: #### M G, CMP, PHOS #### [facility] [address] [place] [address] Dr. Dk Mahoney AST [Catalytic activity/Vol] 17 U/L Normal 15-37 [facility] Comment on above: Performed By: #### M Young CMP, PHOS #### [facility] [address] [place] [address] Dr. Dk Mahoney Bilirubin [Mass/Vol] 0.3 mg/dL Normal 0.2-1.0 [facility] Comment on above: Performed By: #### M Young CMP, PHOS #### [facility] [address] [place] [address] Dr. Dk Mahoney Calcium [Mass/Vol] 9.2 mg/dL Normal 8.5-10.1 [facility] Comment on above: Performed By: #### M Young CMP, PHOS #### [facility] [address] [place] [address] Dr. Dk Mahoney Chloride [Moles/Vol] 105 mmol/L Normal 98-107 [facility] Comment on above: Performed By: #### Rosmery Vidal CMP, PHOS #### [facility] [address] [place] [address] Dr. Dk Mahoney CO2 [Moles/Vol] 20.3 mmol/L Critically low 21.0-32.0 [facility] Comment on above: Performed By: #### Rosmery Vidal CMP, PHOS #### [facility] [address] [place] [address] Dr. Dk Mahoney Creatinine [Mass/Vol] 5.59 mg/dL Critically high 0.70-1.30 [facility] Comment on above: Performed By: #### M Young CMP, PHOS #### [facility] [address] [place] [address] Dr. Dk Mahoney EGFR-AF FIJIAN 12 mL/min/1.73m2 Critically low >=60 [facility] Comment on above: Performed By: #### M G, CMP, PHOS #### [facility] [address] [place] [address] Dr. Dk Mahoney EGFR-NON AF FIJIAN 10 mL/min/1.73m2 Critically low >=60 [facility] Comment on above: Performed By: #### M G, CMP, PHOS #### [facility] [address] [address] [address] Dk Mahoney Globulin (S) [Mass/Vol] 3.7 g/dL Normal [facility] Comment on above: Performed By: #### M G, CMP, PHOS #### [facility] [address] [address] [address] Dk Mahoney Glucose [Mass/Vol] 191 mg/dL Critically high 74-106 [facility] Comment on above: Performed By: #### M G, CMP, PHOS #### [facility] [address] [address] [address] Dk Mahoney Potassium [Moles/Vol] 4.5 mmol/L Normal 3.5-5.1 [facility] Comment on above: Performed By: #### M G, CMP, PHOS #### [facility] [address] [place] [address] Dr. Dk Mahoney Protein [Mass/Vol] 6.1 g/dL Critically low 6.4-8.2 [facility] Comment on above: Performed By: #### M G, CMP, PHOS #### [facility] [address] [address] [address] Dk Mahoney Sodium [Moles/Vol] 137 mmol/L Normal 136-145 [facility] Comment on above: Performed By: #### M G, CMP, PHOS #### [facility] [address] [address] [address] Dk Mahoney Urea nitrogen [Mass/Vol] 83.0 mg/dL Critically high 7.0-18.0 [facility] Comment on above: Performed By: #### M G, CMP, PHOS #### [facility] [address] [place] [address] Dr. Dk Mahoney Urea nitrogen/Creatinine [Mass ratio] 14.8 mg/mg [facility] Comment on above: Performed By: #### M G, CMP, PHOS #### [facility] [address] [address] [address] Dk Mahoney CBC AUTO DIFFon 07-06-2022 BASO # 0.0 103/ul Normal 0.0-0.1 [facility] Comment on above: Performed By: #### C BC #### [facility] [address] [place] [address] Dr. Dk Mahoney BASO # 0.1 103/ul Normal 0.0-0.1 [facility] Comment on above: Performed By: #### M G, CMP, PHOS #### [facility] [address] [place] [address] Dr. Dk Mahoney Basophils/100 WBC (Bld) 0.6 % Normal 0.2-2.0 [facility] Comment on above: Performed By: #### C BC #### [facility] [address] [place] [address] Dr. Dk Mahoney Basophils/100 WBC (Bld) 0.9 % Normal 0.2-2.0 [facility] Comment on above: Performed By: #### M Young CMP, PHOS #### [facility] [address] [place] [address] Dr. Dk Mahoney EO # 0.2 103/ul Normal 0.0-0.7 [facility] Comment on above: Performed By: #### C BC #### [facility] [address] [place] [address] Dr. Dk Mahoney EO # 0.2 103/ul Normal 0.0-0.7 [facility] Comment on above: Performed By: #### M Young CMP, PHOS #### [facility] [address] [place] [address] Dr. Dk Mahoney Eosinophils/100 WBC (Bld) 3.2 % Normal 0.9-7.0 [facility] Comment on above: Performed By: #### C BC #### [facility] [address] [place] [address] Dr. Dk Mahoney Eosinophils/100 WBC (Bld) 2.9 % Normal 0.9-7.0 [facility] Comment on above: Performed By: #### M G CMP, PHOS #### [facility] [address] [place] [address] Dr. Dk Mahoney Erythrocyte distribution width (RBC) [Ratio] 15.2 % Critically high 11.0-15.0 [facility] Comment on above: Performed By: #### C BC #### [facility] [address] [place] [address] Dr. Dk Mahoney Erythrocyte distribution width (RBC) [Ratio] 15.0 % Normal 11.0-15.0 [facility] Comment on above: Performed By: #### M Young, CMP, PHOS #### [facility] [address] [place] [address] Dr. Dk Mahoney Hematocrit (Bld) [Volume fraction] 21.4 % Critically low 42.0-54.0 [facility] Comment on above: Performed By: #### C BC #### [facility] [address] [place] [address] Dr. Dk Mahoney Hematocrit (Bld) [Volume fraction] 24.2 % Critically low 42.0-54.0 [facility] Comment on above: Performed By: #### M Young CMP, PHOS #### [facility] [address] [place] [address] Dr. Dk Mahoney Hemoglobin (Bld) [Mass/Vol] 6.9 g/dL Critically low 14.0-18.0 [facility] Comment on above: Performed By: #### C BC #### [facility] [address] [place] [address] Dr. Dk Mahoney Hemoglobin (Bld) [Mass/Vol] 8.0 g/dL Critically low 14.0-18.0 [facility] Comment on above: Performed By: #### M G, CMP, PHOS #### [facility] [address] [address] [address] Dk Mahoney IG # 0.05 10e3/ul Critically high 0.00-0.03 [facility] Comment on above: Performed By: #### C BC #### [facility] [address] [place] [address] Dr. Dk Mahoney IG # 0.06 10e3/ul Critically high 0.00-0.03 [facility] Comment on above: Performed By: #### M G, CMP, PHOS #### [facility] [address] [address] [address] Dk Mahoney IG % 0.8 % Critically high 0.0-0.5 [facility] Comment on above: Performed By: #### C BC #### [facility] [address] [place] [address] Dr. Dk Mahoney IG % 0.9 % Critically high 0.0-0.5 [facility] Comment on above: Performed By: #### M G, CMP, PHOS #### [facility] [address] [place] [address] Dr. Dk Mahoney LYMPH # 0.9 103/ul Critically low 1.2-3.8 [facility] Comment on above: Performed By: #### C BC #### [facility] [address] [place] [address] Dr. Dk Mahoney LYMPH # 1.0 103/ul Critically low 1.2-3.8 [facility] Comment on above: Performed By: #### M G, CMP, PHOS #### [facility] [address] [place] [address] Dr. Dk Mahoney Lymphocytes/100 WBC (Bld) 13.8 % Critically low 20.5-60.0 [facility] Comment on above: Performed By: #### C BC #### [facility] [address] [place] [address] Dr. Dk Mahoney Lymphocytes/100 WBC (Bld) 14.6 % Critically low 20.5-60.0 [facility] Comment on above: Performed By: #### M G, CMP, PHOS #### [facility] [address] [place] [address] Dr. Dk Mahoney MANUAL DIFF REQ NO Normal [facility] Comment on above: Performed By: #### C BC #### [facility] [address] [place] [address] Dr. Dk Mahoney MANUAL DIFF REQ NO Normal [facility] Comment on above: Performed By: #### M G, CMP, PHOS #### [facility] [address] [place] [address] Dr. Dk Mahoney MCH (RBC) [Entitic mass] 29.9 pg Normal 25.9-34.0 [facility] Comment on above: Performed By: #### C BC #### [facility] [address] [place] [address] Dr. Dk Mahoney MCH (RBC) [Entitic mass] 30.4 pg Normal 25.9-34.0 [facility] Comment on above: Performed By: #### M G, CMP, PHOS #### [facility] [address] [place] [address] Dr. Dk Mahoney MCHC (RBC) [Mass/Vol] 32.2 g/dL Normal 29.9-35.2 [facility] Comment on above: Performed By: #### C BC #### [facility] [address] [place] [address] Dr. Dk CRC (RBC) [Mass/Vol] 33.1 g/dL Normal 29.9-35.2 [facility] Comment on above: Performed By: #### M Young, CMP, PHOS #### [facility] [address] [place] [address] Dr. Dk Mahoney MCV (RBC) [Entitic vol] 92.6 fL Normal 80.0-94.0 [facility] Comment on above: Performed By: #### C BC #### [facility] [address] [place] [address] Dr. Dk Mahoney MCV (RBC) [Entitic vol] 92.0 fL Normal 80.0-94.0 [facility] Comment on above: Performed By: #### M G, CMP, PHOS #### [facility] [address] [place] [address] Dr. Dk Mahoney MONO # 0.8 103/ul Normal 0.3-0.8 [facility] Comment on above: Performed By: #### C BC #### [facility] [address] [place] [address] Dr. Dk Mahoney MONO # 0.7 103/ul Normal 0.3-0.8 [facility] Comment on above: Performed By: #### M Young CMP, PHOS #### [facility] [address] [place] [address] Dr. Dk Mahoney Monocytes/100 WBC (Bld) 11.4 % Normal 1.7-12.0 [facility] Comment on above: Performed By: #### C BC #### [facility] [address] [place] [address] Dr. Dk Mahoney Monocytes/100 WBC (Bld) 11.1 % Normal 1.7-12.0 [facility] Comment on above: Performed By: #### M Young CMP, PHOS #### [facility] [address] [place] [address] Dr. Dk Mahoney NEUT # 4.6 103/ul Normal 1.4-6.5 [facility] Comment on above: Performed By: #### C BC #### [facility] [address] [place] [address] Dr. Dk Mahoney NEUT # 4.5 103/ul Normal 1.4-6.5 [facility] Comment on above: Performed By: #### M Young CMP, PHOS #### [facility] [address] [place] [address] Dr. Dk Mahoney Neutrophils/100 WBC (Bld) 70.2 % Normal 43.0-75.0 [facility] Comment on above: Performed By: #### C BC #### [facility] [address] [place] [address] Dr. Dk Mahoney Neutrophils/100 WBC (Bld) 69.6 % Normal 43.0-75.0 [facility] Comment on above: Performed By: #### M Young CMP, PHOS #### [facility] [address] [place] [address] Dr. Dk Mahoney Platelet mean volume (Bld) [Entitic vol] 9.6 fL Normal 9.5-13.5 [facility] Comment on above: Performed By: #### C BC #### [facility] [address] [address] [address] Dk Mahoney Platelet mean volume (Bld) [Entitic vol] 9.4 fL Critically low 9.5-13.5 [facility] Comment on above: Performed By: #### M Young CMP, PHOS #### [facility] [address] [address] [address] Dk Mahoney PLT 163 103/ul Normal 150-450 [facility] Comment on above: Performed By: #### C BC #### [facility] [address] [place] [address] Dr. Dk Mahoney PLT 159 103/ul Normal 150-450 [facility] [facility] Comment on above: Performed By: #### M Young CMP, PHOS #### [facility] [address] [place] [address] Dr. Dk Mahoney RBC 2.31 106/ul Critically low 4.70-6.[address] [facility] Comment on above: Performed By: #### C BC #### [facility] [address] [place] [address] Dr. Dk Mahoney RBC 2.63 106/ul Critically low 4.70-6.[address] [facility] Comment on above: Performed By: #### Rosmery Vidal CMP, PHOS #### [facility] [address] [place] [address] Dr. Dk Mahoney WBC 6.6 103/ul Normal 4.0-11.0 [facility] Comment on above: Performed By: #### C BC #### [facility] [address] [place] [address] Dr. Dk Mahoney WBC 6.5 103/ul Normal 4.0-11.0 [facility] Comment on above: Performed By: #### M Young CMP, PHOS #### [facility] [address] [place] [address] Dr. Dk Mahoney FERRITINon 07-06-2022 Ferritin [Mass/Vol] 538.0 ng/mL Critically high 26.0-388.0 [facility] Comment on above: Performed By: #### Rosmery Vidal CMP, PHOS #### [facility] [address] [address] [address] Dk Mahoney IRON AND TIBCon 07-06-2022 % SATURATION 29.7 % Normal [facility] Comment on above: Performed By: #### M Young, CMP, PHOS #### [facility] [address] [address] [address] Dk Mahoney Iron [Mass/Vol] 51.0 ug/dL Critically low 65.0-175.0 [facility] Comment on above: Performed By: #### M G, CMP, PHOS #### [facility] [address] [place] [address] Dr. Dk Mahoney TIBC DIRECT 172.0 ug/dL Critically low 250.0-450.0 [facility] Comment on above: Performed By: #### M Young, CMP, PHOS #### [facility] [address] [place] [address] Dr. Dk Mahoney LDHon 07-06-2022 LDH 126 U/L Normal 85-227 [facility] Comment on above: Performed By: #### M Young, CMP, PHOS #### [facility] [address] [address] [address] Dk Mahoney MAGNESIUMon 07-06-2022 Magnesium [Mass/Vol] 1.5 mg/dL Critically low 1.8-2.4 [facility] Comment on above: Performed By: #### M Young CMP, PHOS #### [facility] [address] [place] [address] Dr. Dk Mahoney PHOSPHORUSon 07-06-2022 Phosphate [Mass/Vol] 7.8 mg/dL Critically high 2.6-4.7 [facility] Comment on above: Performed By: #### M Young CMP, PHOS #### [facility] [address] [place] [address] Dr. Dk Mahoney POINT OF CARE GLUCOSEon 06-13 Glucose [Mass/Vol] 173 mg/dL Critically high 74-106 [facility] Comment on above: Performed By: #### P OCGLUC #### [facility] [address] [address] [address] Dk Mahoney Glucose [Mass/Vol] 133 mg/dL Critically high 74-106 [facility] Comment on above: Performed By: #### M Young, CMP, PHOS #### [facility] [address] [place] [address] Dr. Dk Mahoney Glucose [Mass/Vol] 112 mg/dL Critically high 74-106 [facility] Comment on above: Performed By: #### M G, CMP, PHOS #### [facility] [address] [place] [address] Dr. Dk Mahoney Glucose [Mass/Vol] 145 mg/dL Critically high -106 [facility] Comment on above: Performed By: #### M Young, CMP, PHOS #### [facility] [address] [place] [address] Dr. Dk Mahoney Glucose [Mass/Vol] 149 mg/dL Critically high 74-106 [facility] Comment on above: Performed By: #### M Young, CMP, PHOS #### [facility] [address] [place] [address] Dr. Dk Mahoney PROF 14(COMP METB)on 023 Albumin [Mass/Vol] 2.4 g/dL Critically low 3.4-5.0 [facility] Comment on above: Performed By: #### M SHIREEN Vidal, PHOS #### [facility] [address] [address] [address] Dk Mahoney Albumin/Globulin [Mass ratio] 0.6 {ratio} Normal [facility] Comment on above: Performed By: #### M G, CMP, PHOS #### [facility] [address] [address] [address] Dk Mahoney ALP [Catalytic activity/Vol] 133 U/L Critically high 46-116 [facility] Comment on above: Performed By: #### M G, CMP, PHOS #### [facility] [address] [place] [address] Dr. Dk Mahoney ALT [Catalytic activity/Vol] 58 U/L Normal 16-63 [facility] Comment on above: Performed By: #### M G, CMP, PHOS #### [facility] [address] [address] [address] Dk Mahoney Anion gap [Moles/Vol] 16.8 mmol/L Normal [facility] Comment on above: Performed By: #### M G, CMP, PHOS #### [facility] [address] [address] [address] Dk Mahoney AST [Catalytic activity/Vol] 20 U/L Normal 15-37 [facility] Comment on above: Performed By: #### M G, CMP, PHOS #### [facility] [address] [address] [address] Dk Mahoney Bilirubin [Mass/Vol] 0.2 mg/dL Normal 0.2-1.0 [facility] Comment on above: Performed By: #### M G, CMP, PHOS #### [facility] [address] [address] [address] Dk Mahoney Calcium [Mass/Vol] 9.0 mg/dL Normal 8.5-10.1 [facility] Comment on above: Performed By: #### M G, CMP, PHOS #### [facility] [address] [place] [address] Dr. Dk Mahoney Chloride [Moles/Vol] 107 mmol/L Normal 98-107 [facility] Comment on above: Performed By: #### M G, CMP, PHOS #### [facility] [address] [address] [address] Dk Mahoney CO2 [Moles/Vol] 18.2 mmol/L Critically low 21.0-32.0 [facility] Comment on above: Performed By: #### M G, CMP, PHOS #### [facility] [address] [place] [address] Dr. Dk Mahoney Creatinine [Mass/Vol] 5.80 mg/dL Critically high 0.70-1.30 [facility] Comment on above: Performed By: #### M G, CMP, PHOS #### [facility] [address] [place] [address] Dr. Dk Mahoney EGFR-AF FIJIAN 12 mL/min/1.73m2 Critically low >=60 [facility] Comment on above: Performed By: #### M G, CMP, PHOS #### [facility] [address] [address] [address] Dk Mahoney EGFR-NON AF FIJIAN 10 mL/min/1.73m2 Critically low >=60 [facility] Comment on above: Performed By: #### M G, CMP, PHOS #### [facility] [address] [address] [address] Dk Mahoney Globulin (S) [Mass/Vol] 3.9 g/dL Normal [facility] Comment on above: Performed By: #### M Young, CMP, PHOS #### [facility] [address] [address] [address] Dk Mahoney Glucose [Mass/Vol] 108 mg/dL Critically high 74-106 [facility] Comment on above: Performed By: #### M Young CMP, PHOS #### [facility] [address] [address] [address] Dk Mahoney Potassium [Moles/Vol] 5.0 mmol/L Normal 3.5-5.1 [facility] Comment on above: Performed By: #### M Young, CMP, PHOS #### [facility] [address] [address] [address] Dk Mahoney Protein [Mass/Vol] 6.3 g/dL Critically low 6.4-8.2 [facility] Comment on above: Performed By: #### M G, CMP, PHOS #### [facility] [address] [address] [address] Dk Mahoney Sodium [Moles/Vol] 137 mmol/L Normal 136-145 [facility] Comment on above: Performed By: #### M G, CMP, PHOS #### [facility] [address] [address] [address] Dk Mahoney Urea nitrogen [Mass/Vol] 83.0 mg/dL Critically high 7.0-18.0 [facility] Comment on above: Performed By: #### M G, CMP, PHOS #### [facility] [address] [place] [address] Dr. Dk Mahoney Urea nitrogen/Creatinine [Mass ratio] 14.3 mg/mg Normal [facility] Comment on above: Performed By: #### M G, CMP, PHOS #### [facility] [address] [place] [address] Dr. Dk Mahoney RETICULOCYTEon 07-06-2022 RETIC 4.20 % Critically high 0.60-3.[address] [facility] Comment on above: Performed By: #### M G, CMP, PHOS #### [facility] [address] [place] [address] Dr. Dk Mahoney TYPE AND SCREENon 07-06-2022 TYPE AND SCREEN Negative Normal [facility] Comment on above: Performed By: #### P OCGLUC #### [facility] [address] [place] [address] Dr. Dk Mahoney URIC ACID SERUMon 07-06-2022 Urate [Mass/Vol] 6.1 mg/dL Normal 3.5-7.2 [facility] Comment on above: Performed By: #### M Young CMP, PHOS #### [facility] [address] [place] [address] Dr. Dk Mahoney VIT B12 AND FOLATEon 023 Cobalamin (Vitamin B12) [Mass/Vol] 686.0 pg/mL Normal 193.0-986.0 [facility] Comment on above: Performed By: #### P OCGLUC #### [facility] [address] [place] [address] Dr. Dk Mahoney FOLATE 15.50 ng/mL Normal 8.60-58.90 [facility] Comment on above: Performed By: #### P OCGLUC #### [facility] [address] [place] [address] Dr. Dk Mahoney CBC AUTO DIFFon 07-05-2022 BASO # 0.1 103/ul Normal 0.0-0.1 [facility] Comment on above: Performed By: #### M G, CMP, PHOS #### [facility] [address] [place] [address] Dr. Dk Mahoney Basophils/100 WBC (Bld) 0.7 % Normal 0.2-2.0 [facility] Comment on above: Performed By: #### M G, CMP, PHOS #### [facility] [address] [place] [address] Dr. Dk Mahoney EO # 0.2 103/ul Normal 0.0-0.7 [facility] Comment on above: Performed By: #### M G, CMP, PHOS #### [facility] [address] [place] [address] Dr. Dk Mahoney Eosinophils/100 WBC (Bld) 3.1 % Normal 0.9-7.0 [facility] Comment on above: Performed By: #### M G, CMP, PHOS #### [facility] [address] [place] [address] Dr. Dk Mahoney Erythrocyte distribution width (RBC) [Ratio] 15.4 % Critically high 11.0-15.0 [facility] Comment on above: Performed By: #### M G, CMP, PHOS #### [facility] [address] [place] [address] Dr. Dk Mahoney Hematocrit (Bld) [Volume fraction] 23.9 % Critically low 42.0-54.0 [facility] Comment on above: Performed By: #### M G, CMP, PHOS #### [facility] [address] [place] [address] Dr. Dk Mahoney Hemoglobin (Bld) [Mass/Vol] 7.7 g/dL Critically low 14.0-18.0 [facility] Comment on above: Performed By: #### M G, CMP, PHOS #### [facility] [address] [place] [address] Dr. Dk Mahoney IG # 0.05 10e3/ul Critically high 0.00-0.03 [facility] Comment on above: Performed By: #### M G, CMP, PHOS #### [facility] [address] [place], [place] [id number] Dr. Dk Mahoney IG % 0.7 % Critically high 0.0-0.[address] [facility] Comment on above: Performed By: #### M Young, CMP, PHOS #### [facility] [address] [place] [address] Dr. Dk Mahoney LYMPH # 1.0 103/ul Critically low 1.2-3.8 [facility] Comment on above: Performed By: #### M G, CMP, PHOS #### [facility] [address] [place] [address] Dr. Dk Mahoney Lymphocytes/100 WBC (Bld) 12.8 % Critically low 20.5-60.0 [facility] Comment on above: Performed By: #### M Young CMP, PHOS #### [facility] [address] [place] [address] Dr. Dk Mahoney MANUAL DIFF REQ NO Normal [facility] Comment on above: Performed By: #### M Young CMP, PHOS #### [facility] [address] [place] [address] Dr. Dk Mahoney MCH (RBC) [Entitic mass] 30.0 pg Normal 25.9-34.0 [facility] Comment on above: Performed By: #### M Young CMP, PHOS #### [facility] [address] [place] [address] Dr. Dk Mahoney MCHC (RBC) [Mass/Vol] 32.2 g/dL Normal 29.9-35.2 [facility] Comment on above: Performed By: #### M G, CMP, PHOS #### [facility] [address] [place] [address] Dr. Dk Mahoney MCV (RBC) [Entitic vol] 93.0 fL Normal 80.0-94.0 [facility] Comment on above: Performed By: #### M G, CMP, PHOS #### [facility] [address] [place] [address] Dr. Dk Mahoney MONO # 0.8 103/ul Normal 0.3-0.8 [facility] Comment on above: Performed By: #### M G, CMP, PHOS #### [facility] [address] [place] [address] Dr. Dk Mahoney Monocytes/100 WBC (Bld) 10.2 % Normal 1.7-12.0 [facility] Comment on above: Performed By: #### M G, CMP, PHOS #### [facility] [address] [place] [address] Dr. Dk Mahoney NEUT # 5.6 103/ul Normal 1.4-6.5 [facility] Comment on above: Performed By: #### M G, CMP, PHOS #### [facility] [address] [place] [address] Dr. Dk Mahoney Neutrophils/100 WBC (Bld) 72.5 % Normal 43.0-75.0 [facility] Comment on above: Performed By: #### M G, CMP, PHOS #### [facility] [address] [place] [address] Dr. Dk Mahoney Platelet mean volume (Bld) [Entitic vol] 9.8 fL Normal 9.5-13.5 [facility] Comment on above: Performed By: #### M G, CMP, PHOS #### [facility] [address] [place] [address] Dr. Dk Mahoney PLT 203 103/ul Normal 150-450 [facility] Comment on above: Performed By: #### M G, CMP, PHOS #### [facility] [address] [place] [address] Dr. Dk Mahoney RBC 2.57 106/ul Critically low 4.70-6.[address] [facility] Comment on above: Performed By: #### M G, CMP, PHOS #### [facility] [address] [place] [address] Dr. Dk Mahoney WBC 7.7 103/ul Normal 4.0-11.0 [facility] Comment on above: Performed By: #### M G, CMP, PHOS #### [facility] [address] [place] [address] ABD/PELVIS WO CONon [...] MARQUES AMAYA Date: 2022-07-05 18:21 Normal [facility] Covid-19 PCR (CVDTB)on 06-13 SARS-CoV-2 (COVID-19) RNA JASON+probe Ql (Unsp spec) Not detected Normal NOT DETECTED [facility] Comment on above: Result Comment: [...] for this test is supported by the [employer] of [employer] and Human Service's declaration that [...] used). Performed By: #### C BC #### [facility] [address] [place] [address] Dr. Dk Mahoney ER URINE PROFILEon 3 Bilirubin Ql (U) Negative Normal NEGATIVE [facility] Comment on above: Performed By: #### M Young CMP, PHOS #### [facility] [address] [place] [address] Dr. Dk Mahoney Clarity (U) CLEAR Normal CLEAR [facility] Comment on above: Performed By: #### M G, CMP, PHOS #### [facility] [address] [place] [address] Dr. Dk Mahoney Color (U) YELLOW Normal YELLOW [facility] Comment on above: Performed By: #### M G, CMP, PHOS #### [facility] [address] [place] [address] Dr. Yilan Mahoney ERUAHD A micrscopic examination will be performed if indicated. Normal [facility] Comment on above: Performed By: #### M G, CMP, PHOS #### [facility] [address] [address] [address] Dk Mahoney Glucose Ql (U) 100 mg/dl Abnormal NEGATIVE [facility] Comment on above: Performed By: #### M G, CMP, PHOS #### [facility] [address] [address] [address] Dk Mahoney Hemoglobin Ql (U) MODERATE Abnormal NEGATIVE [facility] Comment on above: Performed By: #### M G, CMP, PHOS #### [facility] [address] [place] [address] Dr. Dk Mahoney Ketones Ql (U) Negative Normal NEGATIVE [facility] Comment on above: Performed By: #### M G, CMP, PHOS #### [facility] [address] [place] [address] Dr. Dk Mahoney LEUKOCYTES LARGE Abnormal NEGATIVE [facility] Comment on above: Performed By: #### M G, CMP, PHOS #### [facility] [address] [address] [address] Dk Mahoney Nitrite Ql (U) Negative Normal NEGATIVE [facility] Comment on above: Performed By: #### M G, CMP, PHOS #### [facility] [address] [place] [address] Dr. Dk Mahoney pH (U) 7.0 [pH] Normal 5-9 [facility] Comment on above: Performed By: #### M G, CMP, PHOS #### [facility] [address] [place] [address] Dr. Dk Mahoney Protein (U) [Mass/Vol] 30 mg/dL Abnormal NEGAT BETSY/ TRACE [facility] Comment on above: Performed By: #### M G, CMP, PHOS #### [facility] [address] [place] [address] Dr. Dk Mahoney SPEC GRAVITY 1.010 Normal 1.005-<=1.02 5 [facility] Comment on above: Performed By: #### M Young, CMP, PHOS #### [facility] [address] [place] [address] Dr. Dk Mahoney UR MICRO IND INDICATED Normal [facility] Comment on above: Performed By: #### M G, CMP, PHOS #### [facility] [address] [place] [address] Dr. Dk Mahoney Urobilinogen Qn (U) 0.2 {Ramiro'U}/dL Normal 0.2 - 1. 0 [facility] Comment on above: Performed By: #### M Young, SHIREEN, PHOS #### [facility] [address] [place] [address] Dr. Dk Mahoney PROF 14(COMP METB)on 023 Albumin [Mass/Vol] 2.7 g/dL Critically low 3.4-5.0 [facility] Comment on above: Performed By: #### C BC #### [facility] [address] [place] [address] Dr. Dk Mahoeny Albumin/Globulin [Mass ratio] 0.6 {ratio} Normal [facility] Comment on above: Performed By: #### C BC #### [facility] [address] [place] [address] Dr. Dk Mahoney ALP [Catalytic activity/Vol] 148 U/L Critically high 46-116 [facility] Comment on above: Performed By: #### C BC #### [facility] [address] [place] [address] Dr. Dk Mahoney ALT [Catalytic activity/Vol] 70 U/L Critically high 16-63 [facility] Comment on above: Performed By: #### C BC #### [facility] [address] [place] [address] Dr. Dk Mahoney Anion gap [Moles/Vol] 16.7 mmol/L Normal [facility] Comment on above: Performed By: #### C BC #### [facility] [address] [place] [address] Dr. Dk Mahoney AST [Catalytic activity/Vol] 26 U/L Normal 15-37 [facility] Comment on above: Performed By: #### C BC #### [facility] [address] [address] [address] Dk Mahoney Bilirubin [Mass/Vol] 0.4 mg/dL Normal 0.2-1.0 [facility] Comment on above: Performed By: #### C BC #### [facility] [address] [address] [address] Dk Mahoney Calcium [Mass/Vol] 9.2 mg/dL Normal 8.5-10.1 [facility] Comment on above: Performed By: #### C BC #### [facility] [address] [address] [address] Dk Mahoney Chloride [Moles/Vol] 105 mmol/L Normal 98-107 [facility] Comment on above: Performed By: #### C BC #### [facility] [address] [address] [address] Dk Mahoney CO2 [Moles/Vol] 18.1 mmol/L Critically low 21.0-32.0 [facility] Comment on above: Performed By: #### C BC #### [facility] [address] [address] [address] Dk Mahoney Creatinine [Mass/Vol] 5.81 mg/dL Critically high 0.70-1.30 [facility] Comment on above: Performed By: #### C BC #### [facility] [address] [address] [address] Dk Mahoney EGFR-AF FIJIAN 12 mL/min/1.73m2 Critically low >=60 [facility] Comment on above: Performed By: #### C BC #### [facility] [address] [address] [address] Dk Mahoney EGFR-NON AF FIJIAN 10 mL/min/1.73m2 Critically low >=60 [facility] Comment on above: Performed By: #### C BC #### [facility] [address] [address] [address] Dk Mahoney Globulin (S) [Mass/Vol] 4.3 g/dL Normal [facility] Comment on above: Performed By: #### C BC #### [facility] [address] [address] [address] Dk Mahoney Glucose [Mass/Vol] 138 mg/dL Critically high 74-106 [facility] Comment on above: Performed By: #### C BC #### [facility] [address] [address] [address] Dk Mahoney Potassium [Moles/Vol] 4.8 mmol/L Normal 3.5-5.1 [facility] [facility] Comment on above: Performed By: #### C BC #### [facility] [address] [address] [address] Dk Mahoney Protein [Mass/Vol] 7.0 g/dL Normal 6.4-8.2 [facility] Comment on above: Performed By: #### C BC #### [facility] [address] [address] [address] Dk Mahoney Sodium [Moles/Vol] 135 mmol/L Critically low 136-145 [facility] Comment on above: Performed By: #### C BC #### [facility] [address] [address] [address] Dk Mahoney Urea nitrogen [Mass/Vol] 83.0 mg/dL Critically high 7.0-18.0 [facility] Comment on above: Performed By: #### C BC #### [facility] [address] [address] [address] Dk Mahoney Urea nitrogen/Creatinine [Mass ratio] 14.3 mg/mg Normal [facility] Comment on above: Performed By: #### C BC #### [facility] [address] [address] [address] Dk Mahoney TROPONIN, HIGH SENSITIVITYon 07-05-2022 HSTROP 21.4 pg/mL Normal 4.0-76.1 [facility] Comment on above: Result Comment: CUT- OFF POINTS HAVE BEEN ESTABLISHED BASED ON THE FOURTH UNIVERSAL DEFINITIONS OF MYOCARDIAL INFARCTION. THE UPPER REFERENCE LIMIT (URL) OF TROPONIN, DEFINED THE 99TH PERCENTILE OF cTnI DISTRIBUTION IN A REFERENCE POPULATION, HAS BEEN CONFIRMED THE DECISION THRESHOLD FOR OR DIAGNOSIS. Performed By: #### C BC #### [facility] [address] [address] [address] Dk Mahoney URINE MICROSCOPIC ONLYon BACTERIA MODERATE Abnormal NONE SEEN The [facility] Comment on above: Performed By: #### M G, CMP, PHOS #### [facility] [address] [address] [address] Dk Mahoney Bacteria identified Cx Nom (U) INDICATED Normal The [facility] Comment on above: Performed By: #### M G, CMP, PHOS #### [facility] [address] [address] [address] Dk Mahoney CAST NONE SEEN Normal NONE SEEN The [facility] Comment on above: Performed By: #### M G, CMP, PHOS #### [facility] [address] [place] [address] Dr. Dk Mahoney Crystals LM Nom (Urine sed) NONE SEEN Normal NONE SEEN The [facility] Comment on above: Performed By: #### M G, CMP, PHOS #### [facility] [address] [place] [address] Dr. Dk Mahoney Epithelial cells LM Ql (Urine sed) FEW Abnormal NONE SEEN /RARE The [facility] Comment on above: Performed By: #### M G, CMP, PHOS #### [facility] [address] [place] [address] Dr. Dk Mahoney MUCOUS NONE SEEN Normal NONE SEEN The [facility] Comment on above: Performed By: #### M G, CMP, PHOS #### [facility] [address] [place] [address] Dr. Dk Mahoney RBC 10-20 Abnormal 0-2 The [facility] Comment on above: Performed By: #### M G, CMP, PHOS #### [facility] [address] [place] [address] Dr. Dk Mahoney WBC 75-100 Abnormal NONE SEEN The [facility] Comment on above: Performed By: #### M G, CMP, PHOS #### [facility] [address] [place] [address] Dr. Dk Mahoney YEAST PRESENT Abnormal NONE SEEN The [facility] Comment on above: Performed By: #### M G, CMP, PHOS #### [facility] [address] [place] [address] Dr. Dk Mahoney PRBC LEUKOREDUCEDon 05-11-19 PRBC LEUKOREDUCED Cross Match Result Compatible Unit Blood Type O Neg Unit Number [id number] Status Information Transfused Product ID Red Blood Cells Product Code [id number] Normal [facility] Comment on above: Performed By: #### P RBC #### [facility] [address] [place] [address] Dr. Dk Mahoney ABO AND RH TYPEon 05-04-2022 ABO and Rh group Nom (Bld) ABO Rh Typing O Rh Negative Normal [facility] Comment on above: Performed By: #### A NOE TNS #### [facility] [address] [place] [address] Dr. Dk Mahoney BNPon 05-04-2022 Natriuretic peptide B (Bld) [Mass/Vol] 42951.0 pg/mL Critically high <=900.0 [facility] Comment on above: Performed By: #### M Young, CMP, PHOS #### [facility] [address] [place] [address] Dr. Dk Mahoney CBC AUTO DIFFon 05-04-2022 BASO # 0.1 103/ul Normal 0.0-0.1 [facility] Comment on above: Performed By: #### M G, CMP, PHOS #### [facility] [address] [place] [address] Dr. Dk Mahoney Basophils/100 WBC (Bld) 0.7 % Normal 0.2-2.0 [facility] Comment on above: Performed By: #### M G, CMP, PHOS #### [facility] [address] [place] [address] Dr. Dk Mahoney EO # 0.3 103/ul Normal 0.0-0.7 [facility] Comment on above: Performed By: #### M G, CMP, PHOS #### [facility] [address] [place] [address] Dr. Dk Mahoney Eosinophils/100 WBC (Bld) 4.4 % Normal 0.9-7.0 [facility] Comment on above: Performed By: #### M Young, CMP, PHOS #### [facility] [address] [address] [address] Dk Mahoney Erythrocyte distribution width (RBC) [Ratio] 15.4 % Critically high 11.0-15.0 [facility] Comment on above: Performed By: #### M G, CMP, PHOS #### [facility] [address] [address] [address] Dk Mahoney Hematocrit (Bld) [Volume fraction] 21.6 % Critically low 42.0-54.0 [facility] Comment on above: Performed By: #### M Young CMP, PHOS #### [facility] [address] [place] [address] Dr. Dk Mahoney Hemoglobin (Bld) [Mass/Vol] 7.4 g/dL Critically low 14.0-18.0 [facility] Comment on above: Performed By: #### M G, CMP, PHOS #### [facility] [address] [address] [address] Dk Mahoney IG # 0.03 10e3/ul Normal 0.00-0.03 [facility] Comment on above: Performed By: #### M Young, CMP, PHOS #### [facility] [address] [address] [address] Dk Mahoney IG % 0.4 % Normal 0.0-0.5 [facility] Comment on above: Performed By: #### M G, CMP, PHOS #### [facility] [address] [address] [address] Dk Mahoney LYMPH # 0.9 103/ul Critically low 1.2-3.8 The [facility] Comment on above: Performed By: #### M G, CMP, PHOS #### [facility] [address] [place] [address] Dr. Dk Mahoney Lymphocytes/100 WBC (Bld) 13.8 % Critically low 20.5-60.0 [facility] Comment on above: Performed By: #### M G, CMP, PHOS #### [facility] [address] [address] [address] Dk Mahoney MANUAL DIFF REQ NO Normal [facility] Comment on above: Performed By: #### M G, CMP, PHOS #### [facility] [address] [place] [address] Dr. Dk Mahoney MCH (RBC) [Entitic mass] 28.4 pg Normal 25.9-34.0 [facility] Comment on above: Performed By: #### M G, CMP, PHOS #### [facility] [address] [place] [address] Dr. Dk Mahoney MCHC (RBC) [Mass/Vol] 34.3 g/dL Normal 29.9-35.2 [facility] Comment on above: Performed By: #### M G, CMP, PHOS #### [facility] [address] [place] [address] Dr. Dk Mahoney MCV (RBC) [Entitic vol] 82.8 fL Normal 80.0-94.0 [facility] Comment on above: Performed By: #### M G, CMP, PHOS #### [facility] [address] [place] [address] Dr. Dk Mahoney MONO # 0.6 103/ul Normal 0.3-0.8 [facility] Comment on above: Performed By: #### M G, CMP, PHOS #### [facility] [address] [place] [address] Dr. Dk Mahoney Monocytes/100 WBC (Bld) 8.8 % Normal 1.7-12.0 [facility] Comment on above: Performed By: #### M G, CMP, PHOS #### [facility] [address] [place] [address] Dr. Dk Mahoney NEUT # 4.9 103/ul Normal 1.4-6.5 [facility] Comment on above: Performed By: #### M G, CMP, PHOS #### [facility] [address] [place] [address] Dr. Dk Mahoney Neutrophils/100 WBC (Bld) 71.9 % Normal 43.0-75.0 [facility] Comment on above: Performed By: #### M SHIREEN Vidal, PHOS #### [facility] [address] [address] [address] Dk Mahoney Platelet mean volume (Bld) [Entitic vol] 9.3 fL Critically low 9.5-13.5 [facility] Comment on above: Performed By: #### M Young CMP, PHOS #### [facility] [address] [address] [address] Dk Mahoney PLT 178 103/ul Normal 150-450 [facility] Comment on above: Performed By: #### M SHIREEN Vidal, PHOS #### [facility] [address] [address] [address] Dk Mahoney RBC 2.61 106/ul Critically low 4.70-6.[address] [facility] Comment on above: Performed By: #### Rosmery Vidal CMP, PHOS #### [facility] [address] [address] [address] Dk Mahoney WBC 6.8 103/ul Normal 4.0-11.0 [facility] Comment on above: Performed By: #### Rosmery Vidal CMP, PHOS #### [facility] [address] [address] [address] Dk Mahoney [facility] SARS-CoV-2 (COVID-19) RNA JASON+probe Ql (Unsp spec) Not detected Normal NOT DETECTED The [facility] Comment on above: Result Comment: [...] for this test is supported by the [employer] of Health and Human Service's declaration that [...] used). Performed By: #### P OCGLUC #### [facility] [address] [place] [address] Dr. Dk Mahoney PROF CHEM 8 (BAS METB)on Anion gap [Moles/Vol] 14.7 mmol/L Normal Th e [facility] Comment on above: Performed By: #### M G, CMP, PHOS #### [facility] [address] [place] [address] Dr. Dk Mahoney Calcium [Mass/Vol] 9.3 mg/dL Normal 8.5-10.1 [facility] Comment on above: Performed By: #### M G, CMP, PHOS #### [facility] [address] [place] [address] Dr. Dk Mahoney Chloride [Moles/Vol] 109 mmol/L Critically high 98-107 [facility] Comment on above: Performed By: #### M G, CMP, PHOS #### [facility] [address] [place] [address] Dr. Dk Mahoney CO2 [Moles/Vol] 21.3 mmol/L Normal 21.0-32.0 [facility] Comment on above: Performed By: #### M G, CMP, PHOS #### [facility] [address] [place] [address] Dr. Dk Mahoney Creatinine [Mass/Vol] 4.61 mg/dL Critically high 0.70-1.30 [facility] Comment on above: Performed By: #### M G, CMP, PHOS #### [facility] [address] [place] [address] Dr. Dk Mahoney EGFR-AF FIJIAN 15 mL/min/1.73m2 Critically low >=60 [facility] Comment on above: Performed By: #### M G, CMP, PHOS #### [facility] [address] [address] [address] Dk Mahoney EGFR-NON AF FIJIAN 13 mL/min/1.73m2 Critically low >=60 [facility] Comment on above: Performed By: #### M G, CMP, PHOS #### [facility] [address] [address] [address] Dk Mahoney Glucose [Mass/Vol] 200 mg/dL Critically high 74-106 [facility] Comment on above: Performed By: #### M G, CMP, PHOS #### [facility] [address] [address] [address] Dk Mahoney Potassium [Moles/Vol] 5.0 mmol/L Normal 3.5-5.1 [facility] Comment on above: Performed By: #### M G, CMP, PHOS #### [facility] [address] [address] [address] Dk Mahoney Sodium [Moles/Vol] 140 mmol/L Normal 136-145 [facility] Comment on above: Performed By: #### M G, CMP, PHOS #### [facility] [address] [address] [address] Dk Mahoney Urea nitrogen [Mass/Vol] 64.0 mg/dL Critically high 7.0-18.0 [facility] Comment on above: Performed By: #### M G, CMP, PHOS #### [facility] [address] [address] [address] Dk Mahoney Urea nitrogen/Creatinine [Mass ratio] 13.9 mg/mg Normal [facility] Comment on above: Performed By: #### M G, CMP, PHOS #### [facility] [address] [place] [address] Dr. Dk Mahoney TROPONIN, HIGH SENSITIVITYon 05-04-2022 HSTROP 29.4 pg/mL Normal 4.0-76.1 [facility] Comment on above: Result Comment: CUT- OFF POINTS HAVE BEEN ESTABLISHED BASED ON THE FOURTH UNIVERSAL DEFINITIONS OF MYOCARDIAL INFARCTION. THE UPPER REFERENCE LIMIT (URL) OF TROPONIN, DEFINED THE 99TH PERCENTILE OF cTnI DISTRIBUTION IN A REFERENCE POPULATION, HAS BEEN CONFIRMED THE DECISION THRESHOLD FOR OR DIAGNOSIS. Performed By: #### M Young CMP, PHOS #### [facility] [address] [address] [address] Dk Mahoney TYPE AND SCREENon 05-04-2022 TYPE AND SCREEN Negative Normal [facility] Comment on above: Performed By: #### A NOE TNS #### [facility] [address] [address] [address] Dk Mahoney US ROWAN DOP LEG [...] HEBERT Date: 2022-05-04 14:33 Normal [facility] PRBC LEUKOREDUCEDon 04-29-19 PRBC LEUKOREDUCED Cross Match Result Compatible Unit Blood Type O Neg Unit Number [id number] Status Information Transfused Product ID Red Blood Cells Product Code [id number] Normal [facility] Comment on above: Performed By: #### P RBC #### [facility] [address] [place] [address] Dr. Dk Mahoney ABO RH RETYPEon 04-19-2022 ABO and Rh group Nom (Bld) DONE Normal [facility] Comment on above: Performed By: #### M Young CMP, PHOS #### [facility] [address] [address] [address] Dk Mahoney CBC AUTO DIFFon 04-19-2022 BASO # 0.1 103/ul Normal 0.0-0.1 [facility] Comment on above: Performed By: #### M G CMP, PHOS #### [facility] [address] [place] [address] Dr. Dk Mahoney Basophils/100 WBC (Bld) 0.8 % Normal 0.2-2.0 [facility] Comment on above: Performed By: #### M SHIREEN Vidal, PHOS #### [facility] [address] [place] [address] Dr. Dk Mahoney EO # 0.5 103/ul Normal 0.0-0.7 [facility] Comment on above: Performed By: #### M Young CMP, PHOS #### [facility] [address] [place] [address] Dr. Dk Mahoney Eosinophils/100 WBC (Bld) 6.9 % Normal 0.9-7.0 [facility] Comment on above: Performed By: #### M Young CMP, PHOS #### [facility] [address] [place] [address] Dr. Dk Mahoney Erythrocyte distribution width (RBC) [Ratio] 16.3 % Critically high 11.0-15.0 [facility] Comment on above: Performed By: #### M SHIREEN Vidal, PHOS #### [facility] [address] [place] [address] Dr. Dk Mahoney Hematocrit (Bld) [Volume fraction] 20.8 % Critically low 42.0-54.0 [facility] Comment on above: Performed By: #### M Young CMP, PHOS #### [facility] [address] [place] [address] Dr. Dk Mahoney Hemoglobin (Bld) [Mass/Vol] 6.8 g/dL Critically low 14.0-18.0 [facility] Comment on above: Performed By: #### M G, CMP, PHOS #### [facility] [address] [place] [address] Dr. Dk Mahoney IG # 0.04 10e3/ul Critically high 0.00-0.03 [facility] Comment on above: Performed By: #### M G, CMP, PHOS #### [facility] [address] [place] [address] Dr. Dk Mahoney IG % 0.6 % Critically high 0.0-0.5 [facility] Comment on above: Performed By: #### M G, CMP, PHOS #### [facility] [address] [place] [address] Dr. Dk Mahoney LYMPH # 1.0 103/ul Critically low 1.2-3.8 [facility] Comment on above: Performed By: #### M G, CMP, PHOS #### [facility] [address] [place] [address] Dr. Dk Mahoney Lymphocytes/100 WBC (Bld) 14.1 % Critically low 20.5-60.0 [facility] Comment on above: Performed By: #### M G, CMP, PHOS #### [facility] [address] [place] [address] Dr. Dk Mahoney MANUAL DIFF REQ NO Normal [facility] Comment on above: Performed By: #### M G, CMP, PHOS #### [facility] [address] [place] [address] Dr. Dk Mahoney MCH (RBC) [Entitic mass] 29.3 pg Normal 25.9-34.0 [facility] Comment on above: Performed By: #### M G, CMP, PHOS #### [facility] [address] [place] [address] Dr. Dk Mahoney MCHC (RBC) [Mass/Vol] 32.7 g/dL Normal 29.9-35.2 [facility] Comment on above: Performed By: #### M G, CMP, PHOS #### [facility] [address] [place] [address] Dr. Dk Mahoney MCV (RBC) [Entitic vol] 89.7 fL Normal 80.0-94.0 [facility] Comment on above: Performed By: #### M G, CMP, PHOS #### [facility] [address] [place] [address] Dr. Dk Mahoney MONO # 0.7 103/ul Normal 0.3-0.8 [facility] Comment on above: Performed By: #### M G, CMP, PHOS #### [facility] [address] [place] [address] Dr. Dk Mahoney Monocytes/100 WBC (Bld) 10.1 % Normal 1.7-12.0 [facility] Comment on above: Performed By: #### M SHIREEN Vidal, PHOS #### [facility] [address] [address] [address] Dk Mahoney NEUT # 4.9 103/ul Normal 1.4-6.5 [facility] Comment on above: Performed By: #### M SHIREEN Vidal, PHOS #### [facility] [address] [place] [address] Dr. Dk Mahoney Neutrophils/100 WBC (Bld) 67.5 % Normal 43.0-75.0 [facility] Comment on above: Performed By: #### Rosmery Vidal CMP, PHOS #### [facility] [address] [place] [address] Dr. Dk Mahoney Platelet mean volume (Bld) [Entitic vol] 9.5 fL Normal 9.5-13.5 [facility] Comment on above: Performed By: #### Rosmery Vidal CMP, PHOS #### [facility] [address] [place] [address] Dr. Dk Mahoney PLT 212 103/ul Normal 150-450 [facility] Comment on above: Performed By: #### Rosmery Vidal CMP, PHOS #### [facility] [address] [place] [address] Dr. Dk Mahoney RBC 2.32 106/ul Critically low 4.70-6.[address] [facility] Comment on above: Performed By: #### Rosmery Vidal CMP, PHOS #### [facility] [address] [place] [address] Dr. Dk Mahoney WBC 7.2 103/ul Normal 4.0-11.0 [facility] Comment on above: Performed By: #### Rosmery Vidal CMP, PHOS #### [facility] [address] [place] [address] Dr. Dk Mahoney [facility]on SARS-CoV-2 (COVID-19) RNA JASON+probe Ql (Unsp spec) Not detected Normal NOT DETECTED [facility] Comment on above: Result Comment: [...] for this test is supported by the [employer] of Health and Human Service's declaration that [...] By: #### M SHIREEN Vidal, PHOS #### [facility] [address] [place] [address] Dr. Dk Mahoney PROF 14(COMP METB)on 023 Albumin [Mass/Vol] 2.4 g/dL Critically low 3.4-5.0 [facility] Comment on above: Performed By: #### M SHIREEN Vidal, PHOS #### [facility] [address] [place] [address] Dr. Dk Mahoney Albumin/Globulin [Mass ratio] 0.6 {ratio} Normal [facility] Comment on above: Performed By: #### M SHIREEN Vidal, PHOS #### [facility] [address] [place] [address] Dr. Dk Mahoney ALP [Catalytic activity/Vol] 142 U/L Critically high 46-116 [facility] Comment on above: Performed By: #### M G CMP, PHOS #### [facility] [address] [place] [address] Dr. Dk Mahoney ALT [Catalytic activity/Vol] 26 U/L Normal 16-63 [facility] Comment on above: Performed By: #### M G CMP, PHOS #### [facility] [address] [address] [address] Dk Mahoney Anion gap [Moles/Vol] 12.0 mmol/L Normal [facility] Comment on above: Performed By: #### M G, CMP, PHOS #### [facility] [address] [address] [address] Dk Mahoney AST [Catalytic activity/Vol] 19 U/L Normal 15-37 [facility] Comment on above: Performed By: #### M G, CMP, PHOS #### [facility] [address] [address] [address] Dk Mahoney Bilirubin [Mass/Vol] 0.3 mg/dL Normal 0.2-1.0 [facility] Comment on above: Performed By: #### M G, CMP, PHOS #### [facility] [address] [address] [address] Dk Mahoney Calcium [Mass/Vol] 9.3 mg/dL Normal 8.5-10.1 [facility] Comment on above: Performed By: #### M G, CMP, PHOS #### [facility] [address] [address] [address] Dk Mahoney Chloride [Moles/Vol] 109 mmol/L Critically high 98-107 [facility] Comment on above: Performed By: #### M G, CMP, PHOS #### [facility] [facility] [address] [address] [address] Dk Mahoney CO2 [Moles/Vol] 25.0 mmol/L Normal 21.0-32.0 [facility] Comment on above: Performed By: #### M G, CMP, PHOS #### [facility] [address] [address] [address] Dk Mahoney Creatinine [Mass/Vol] 4.83 mg/dL Critically high 0.70-1.30 [facility] Comment on above: Performed By: #### M G, CMP, PHOS #### [facility] [address] [address] [address] Dk Mahoney EGFR-AF FIJIAN 15 mL/min/1.73m2 Critically low >=60 [facility] Comment on above: Performed By: #### M G, CMP, PHOS #### [facility] [address] [address] [address] Dk Mahoney EGFR-NON AF FIJIAN 12 mL/min/1.73m2 Critically low >=60 [facility] Comment on above: Performed By: #### M G, CMP, PHOS #### [facility] [address] [place] [address] Dr. Dk Mahoney Globulin (S) [Mass/Vol] 4.1 g/dL Normal [facility] Comment on above: Performed By: #### M G, CMP, PHOS #### [facility] [address] [place] [address] Dr. Dk Mahoney Glucose [Mass/Vol] 128 mg/dL Critically high 74-106 [facility] Comment on above: Performed By: #### M G, CMP, PHOS #### [facility] [address] [place] [address] Dr. Dk Mahoney Potassium [Moles/Vol] 5.0 mmol/L Normal 3.5-5.1 [facility] Comment on above: Performed By: #### M Yougn CMP, PHOS #### [facility] [address] [place] [address] Dr. Dk Maohney Protein [Mass/Vol] 6.5 g/dL Normal 6.4-8.2 [facility] Comment on above: Performed By: #### M G, CMP, PHOS #### [facility] [address] [place] [address] Dr. Dk Mahoney Sodium [Moles/Vol] 141 mmol/L Normal 136-145 [facility] Comment on above: Performed By: #### M G, CMP, PHOS #### [facility] [address] [place] [address] Dr. Dk Mahoney Urea nitrogen [Mass/Vol] 62.0 mg/dL Critically high 7.0-18.0 [facility] Comment on above: Performed By: #### M G, CMP, PHOS #### [facility] [address] [place] [address] Dr. Dk Mahoney Urea nitrogen/Creatinine [Mass ratio] 12.8 mg/mg Normal [facility] Comment on above: Performed By: #### M SHIREEN Vidal PHOS #### [facility] [address] [place] [address] Dr. Dk Mahoney PROTIMEon 04-19-2022 INR Coag (PPP) [Relative time] 1.01 {INR} Normal [facility] Comment on above: Performed By: #### P OCGLUC #### [facility] [address] [place] [address] Dr. Dk Mahoney INR GUIDELINES SEE BELOW Normal [facility] Comment on above: Result Comment: JOSELO RED INR: 2.0 - 3.0 CONDITIONS NOT LISTED BELOW 2.5 - 3.5 FOR PROSTHETIC HEART VALVE REPLACEMENT 2.5 - 3.5 RECURRENT THROMBOSIS Performed By: #### P OCGLUC #### [facility] [address] [place] [address] Dr. Dk Mahoney PT Coag (PPP) [Time] 10.9 s Normal 9.0-11.6 [facility] Comment on above: Performed By: #### P OCGLUC #### [facility] [address] [place] [address] Dr. Dk Mahoney PTTon 04-19-2022 aPTT Coag (Bld) [Time] 25.8 s Normal 22.3-36.2 [facility] Comment on above: Performed By: #### P OCGLUC #### [facility] [address] [place] [address] Dr. Dk Mahoney TYPE AND SCREENon 04-19-2022 TYPE AND SCREEN Negative Normal [facility] Comment on above: Performed By: #### P OCGLUC #### [facility] [address] [place] [address] Dr. Dk Mahoney CBC AUTO DIFFon 10-24-2021 BASO # 0.1 103/ul Normal 0.0-0.1 [facility] Comment on above: Performed By: #### C BC #### [facility] [address] [place], [place] [id number] Dr. Dk Mahoney Basophils/100 WBC (Bld) 0.7 % Normal 0.2-2.0 [facility] Comment on above: Performed By: #### C BC #### [facility] [address] [place] [address] Dr. Dk Mahoney EO # 0.6 103/ul Normal 0.0-0.7 [facility] Comment on above: Performed By: #### C BC #### [facility] [address] [place] [address] Dr. Dk Mahoney Eosinophils/100 WBC (Bld) 7.7 % Critically high 0.9-7.0 [facility] Comment on above: Performed By: #### C BC #### [facility] [address] [place] [address] Dr. Dk Mahoney Erythrocyte distribution width (RBC) [Ratio] 17.2 % Critically high 11.0-15.0 [facility] Comment on above: Performed By: #### C BC #### [facility] [address] [place] [address] Dr. Dk Mahoney Hematocrit (Bld) [Volume fraction] 26.1 % Critically low 42.0-54.0 [facility] Comment on above: Performed By: #### C BC #### [facility] [address] [place] [address] Dr. Dk Mahoney Hemoglobin (Bld) [Mass/Vol] 8.1 g/dL Critically low 14.0-18.0 [facility] Comment on above: Performed By: #### C BC #### [facility] [address] [place] [address] Dr. Dk Mahoney IG # 0.06 10e3/ul Critically high 0.00-0.03 [facility] Comment on above: Performed By: #### C BC #### [facility] [address] [place] [address] Dr. Dk Mahoney IG % 0.8 % Critically high 0.0-0.[address] [facility] Comment on above: Performed By: #### C BC #### [facility] [address] [address] [address] Dk Mahoney LYMPH # 1.4 103/ul Normal 1.2-3.8 [facility] Comment on above: Performed By: #### C BC #### [facility] [address] [place] [address] Dr. Dk Mahoney Lymphocytes/100 WBC (Bld) 18.1 % Critically low 20.5-60.0 [facility] Comment on above: Performed By: #### C BC #### [facility] [address] [place] [address] Dr. Dk Mahoney MANUAL DIFF REQ NO Normal [facility] Comment on above: Performed By: #### C BC #### [facility] [address] [place] [address] Dr. Dk Mahoney MCH (RBC) [Entitic mass] 25.6 pg Critically low 25.9-34.0 [facility] Comment on above: Performed By: #### C BC #### [facility] [address] [place] [address] Dr. Dk Mahoney MCHC (RBC) [Mass/Vol] 31.0 g/dL Normal 29.9-35.2 [facility] Comment on above: Performed By: #### C BC #### [facility] [address] [place] [address] Dr. Dk Mahoney MCV (RBC) [Entitic vol] 82.3 fL Normal 80.0-94.0 [facility] Comment on above: Performed By: #### C BC #### [facility] [address] [place] [address] Dr. Dk Mahoney MONO # 0.9 103/ul Critically high 0.3-0.[address] [facility] Comment on above: Performed By: #### C BC #### [facility] [address] [place] [address] Dr. Dk Mahoney Monocytes/100 WBC (Bld) 12.4 % Critically high 1.7-12.0 [facility] Comment on above: Performed By: #### C BC #### [facility] [address] [place] [address] Dr. Dk Mahoney NEUT # 4.6 103/ul Normal 1.4-6.5 [facility] Comment on above: Performed By: #### C BC #### [facility] [address] [address] [address] Dk Mahoney Neutrophils/100 WBC (Bld) 60.3 % Normal 43.0-75.0 [facility] Comment on above: Performed By: #### C BC #### [facility] [address] [address] [address] Dk Mahoney Platelet mean volume (Bld) [Entitic vol] 9.5 fL Normal 9.5-13.5 [facility] Comment on above: Performed By: #### C BC #### [facility] [address] [place] [address] Dr. Dk Mahoney PLT 201 103/ul Normal 150-450 [facility] Comment on above: Performed By: #### C BC #### [facility] [address] [place] [address] Dr. Dk Mahoney RBC 3.17 106/ul Critically low 4.70-6.10 [facility] Comment on above: Performed By: #### C BC #### [facility] [address] [place] [address] Dr. Dk Mahoney WBC 7.5 103/ul Normal 4.0-11.0 [facility] Comment on above: Performed By: #### C BC #### [facility] [address] [place] [address] Dr. Dk Mahoney PROF CHEM 8 (BAS METB)on Anion gap [Moles/Vol] 12.3 mmol/L Normal [facility] Comment on above: Performed By: #### M G, CMP, PHOS #### [facility] [address] [place] [address] Dr. Dk Mahoney Calcium [Mass/Vol] 9.6 mg/dL Normal 8.5-10.1 [facility] Comment on above: Performed By: #### M G, CMP, PHOS #### [facility] [address] [address] [address] Dk Mahoney Chloride [Moles/Vol] 107 mmol/L Normal 98-107 [facility] Comment on above: Performed By: #### M G, CMP, PHOS #### [facility] [address] [address] [address] Dk Mahoney CO2 [Moles/Vol] 26.5 mmol/L Normal 21.0-32.0 [facility] Comment on above: Performed By: #### M G, CMP, PHOS #### [facility] [address] [address] [address] Dk Mahoney Creatinine [Mass/Vol] 3.76 mg/dL Critically high 0.70-1.30 [facility] Comment on above: Performed By: #### M G, CMP, PHOS #### [facility] [address] [address] [address] Dk Mahoney EGFR-AF FIJIAN 19 mL/min/1.73m2 Critically low >=60 [facility] Comment on above: Performed By: #### M G, CMP, PHOS #### [facility] [address] [address] [address] Dk Mahoney EGFR-NON AF FIJIAN 16 mL/min/1.73m2 Critically low >=60 [facility] Comment on above: Performed By: #### M G, CMP, PHOS #### [facility] [address] [address] [address] Dk Mahoney Glucose [Mass/Vol] 143 mg/dL Critically high 74-106 [facility] Comment on above: Performed By: #### M G, CMP, PHOS #### [facility] [address] [address] [address] Dk Mahoney Potassium [Moles/Vol] 4.8 mmol/L Normal 3.5-5.1 [facility] Comment on above: Performed By: #### M G, CMP, PHOS #### [facility] [address] [address] [address] Dk Mahoney Sodium [Moles/Vol] 141 mmol/L Normal 136-145 [facility] Comment on above: Performed By: #### M G, CMP, PHOS #### [facility] [address], [place] [address] Dr. Dk Mahoney Urea nitrogen [Mass/Vol] 47.0 mg/dL Critically high 7.0-18.0 [facility] Comment on above: Performed By: #### M G, CMP, PHOS #### [facility] [address], [place] [address] Dr. Dk Mahoney Urea nitrogen/Creatinine [Mass ratio] 12.5 mg/mg Normal [facility] Comment on above: Performed By: #### M G, CMP, PHOS #### [facility] [address], [place] [address] Dr. Dk Mahoney US ROWAN DOP LEG [...] MARQUES AMAYA Date: 2021-10-24 18:07 Normal [facility] Office Visit (Urology)on Follow-up visit [...] d By: Riana Pro on 08-29-2020 - [employer] Work Phone: Amorphous, UA NOT REPORTED None [facility] Work Phone: Bacteria, UA 2+ Abnormal None [employer] Work Phone: Casts UA NOT REPORTED /LPF [employer] Work Phone: Crystals, UA NOT REPORTED None /HPF [employer] [facility] Work Phone: Epithelial Cells UA 2 TO 5 [employer] Work Phone: Mucus, UA NOT REPORTED None [facility] Work Phone: Other Observations UA NOT REPORTED NOT REQ. [facility] Work Phone: RBC, UA 50 TO 100 [facility] Work Phone: Renal Epithelial, UA NOT REPORTED 0 /HPF [facility] Work Phone: Trichomonas, UA NOT REPORTED None [facility] Work Phone: WBC, UA GREATER THAN 100 [facility] Work Phone: Yeast, UA NOT REPORTED None [facility] Work Phone: No Panel InformationOrdered By: Riana Pro on 08-29-2020 Interpretation and review of laboratory results Abnormal [facility] Work Phone: [facility] Work Phone: Urinalysis Reflex to Culture Ordered By: Riana Pro on 08-29-2020 Bilirubin Urine Negative NEGATIVE [facility] Work Phone: Color, UA YELLOW YELLOW [facility] Work Phone: Glucose, Ur Negative NEGATIVE [facility] Work Phone: Ketones Ql (U) Negative NEGATIVE [facility] Work Phone: Leukocyte esterase Test strip Ql (U) LARGE Abnormal NEGATIVE [facility] Work Phone: Nitrite, Urine Positive Abnormal NEGATIVE [facility] Work Phone: pH, UA 7.5 [facility] Work Phone: Protein, UA 1+ Abnormal NEGATIVE [facility] Work Phone: Specific [place], UA 1.010 [facility] Work Phone: Turbidity UA CLEAR CLEAR [facility] Work Phone: Urinalysis Comments NOT REPORTED [facility] Work Phone: Urine Hgb 3+ Abnormal NEGATIVE [facility] Work Phone: Urobilinogen, Urine Normal Normal [facility] Work Phone: Microscopic Urinalysison Amorphous, UA NOT REPORTED None [facility] [place] [place] Bacteria, UA 2+ Abnormal None [facility], [place] Casts UA NOT REPORTED /LPF [place], [place] Crystals, UA NOT REPORTED None /HPF [facility], [place] Epithelial Cells UA 2 TO 5 [place], [place] Mucus, UA NOT REPORTED None [facility], [place] Other Observations UA NOT REPORTED NOT REQ. M [place], [place] RBC (U) [#/Vol] 20 TO 50 [facility] [place], [place] Renal Epithelial, UA NOT REPORTED 0 /HPF [place], [place] Trichomonas, UA NOT REPORTED None [place], [place] WBC, UA GREATER THAN 100 [place], [place] Yeast, UA NOT REPORTED None [facility], [place] - [place], [place] Otheron 02-03-2020 Interpretation and review of laboratory results Abnormal [place], [place] Urinalysison 02-03-2020 Bilirubin Urine Negative NEGATIVE [facility], [place] Color, UA YELLOW YELLOW [place], [place] Glucose, Ur Negative NEGATIVE [place] Ketones Ql (U) Negative NEGATIVE [place], [place] Leukocyte esterase Test strip Ql (U) LARGE Abnormal NEGATIVE [place] Nitrite, Urine Positive Abnormal NEGATIVE [place] pH, UA 8.0 [place], [place] Protein (U) [Mass/Vol] TRACE Abnormal NEGATIVE [place], [place] Specific [place], UA 1.015 [place], [place] Turbidity UA SLIGHTLY CLOUDY Abnormal CLEAR [place], [place] Urinalysis Comments NOT REPORTED [place], [place] Urine Hgb 3+ Abnormal NEGATIVE [place], [place] Urobilinogen, Urine Normal Normal [place], [place] Social History Date Type Detail Facility Start: 02-05-2019 Tobacco smoking status NHIS Unknown if ever smoked [place], [place] Start: 1950 Sex Assigned At Not on file [facility], [place] Sex Assigned At Sex Assigned At Bir th [facility] Other Vital Signs Date Time Vital Sign Value Performing Clinician Facility 10-08-2022 12:20-0400 Body height 180.34 cm Devaughn Khadijah Other [facility] Other 10-08-2022 12:20-0400 Body temperature 96.6 [degF] Devaughn Khadijah Other [facility] Other 10-08-2022 12:20-0400 Diastolic blood pressure 60 mm[Hg] Devaughn Khadijah Other [facility] Other 10-08-2022 12:20-0400 Respiratory rate 18 /min Devaughn Khadijah Other [facility] Other 10-08-2022 12:20-0400 SaO2% (BldA) [Mass fraction] 100 % Devaughn Khadijah Other [facility] Other 10-08-2022 12:20-0400 Systolic blood pressure 121 mm[Hg] Devaughn Khadijah Other [facility] Other 10-01-2022 13:30-0400 Body height 180.34 cm Erik Sanderson Other [facility] Other 10-01-2022 13:30-0400 Body mass index (BMI) [Ratio] 42.12 kg/m2 Erik Sanderson Other [facility] Other 10-01-2022 13:30-0400 Body temperature 97.2 [degF] Erik Sanderson Other [facility] Other 10-01-2022 13:30-0400 Body weight 136.99 kg Erik Sanderson Other [facility] Other 10-01-2022 13:30-0400 Diastolic blood pressure 68 mm[Hg] Erik Sanderson Other [facility] Other 10-01-2022 13:30-0400 SaO2% (BldA) [Mass fraction] 97 % Erik Sanderson Other [facility] Other 10-01-2022 13:30-0400 Systolic blood pressure 138 mm[Hg] Erik Sanderson Other [facility] Other Evaluation note 10-08-2022 Note Date & [...] [facility] [place] [facility] and renal function monitoring Patient's recent lab from the [place] are not available. 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 He appears to be euvolemic. Continue current medications. Sep, Secondary hyperparathyroidism (ICD-10 - N25.81) Continue sevelamer and vitamin D as prescribed by [place] physician. [facility] [place]. Sep, Anemia of renal disease (ICD-10 - D63.1) Continue oral iron. Sep, Nephrolithiasis (ICD-10 - N20.0) Continue follow up with urology. [facility] Other Evaluation note 10-01-2022 Note Date & [...] this well and a dressing was applied. 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 Expl anation ACP-Advance Directive ACP-Power of Technical Sourcing Recruiter Summary Purpose Family History No Family History Records FoundNo Family History Records FoundNo Family History Records FoundNo Family History Records FoundNo Family History Records Found Additional Source Comments (unrecognized sect ion and content) No Status Records FoundNo Status Records FoundNo Status Records FoundNo Status Records FoundNo Status Records Found INFORMATION SOURCE (unrecogn ized section and content) DATE CREATED AUTHOR 09/09/2020 [employer] DATE CREATED AUTHOR AUTHOR'S ORGANIZ ATION 07/20/2022 [facility] DATE CREATED AUTHOR AUTHOR'S ORGANIZ ATION 09/22/2022 [facility] DATE CREATED AUTHOR AUTHOR'S ORGANIZ ATION 10/29/2022 [facility] DATE CREATED AUTHOR AUTHOR'S ORGANIZ ATION 01/20/2023 Maru hsieh REASON FOR VISIT (unrecogniz ed section and [...] BE BASED ON THE PRIMARY CLINICAL RECORDS. [facility] [employer] [facility]. provides no warranty or guarantee of the accuracy or completeness of information in this document.
[2023-09-11 03:04] LABS: Adenovirus F 40/41 NOT DETECTED (NOT DETECTE); Astrovirus NOT DETECTED (NOT DETECTE); Campylobacter NOT DETECTED (NOT DETECTE); Cryptosporidium NOT DETECTED (NOT DETECTE); Cyclospora cayetanensis NOT DETECTED (NOT DETECTE); Entamoeba histolytica NOT DETECTED (NOT DETECTE); Enteroaggregative E.coli NOT DETECTED (NOT DETECTE); Enteropathogenic E.coli NOT DETECTED (NOT DETECTE); Enterotoxigenic E. coli NOT DETECTED (NOT DETECTE); Giardia lamblia NOT DETECTED (NOT DETECTE); Norovirus GI/GII NOT DETECTED (NOT DETECTE); Plesiomonas shigelloides NOT DETECTED (NOT DETECTE); Rotavirus A NOT DETECTED (NOT DETECTE); Salmonella NOT DETECTED (NOT DETECTE); Sapovirus NOT DETECTED (NOT DETECTE); Shiga-like toxin-producing E.C NOT DETECTED (NOT DETECTE); Shigella/Enteroinvasive E.coli NOT DETECTED (NOT DETECTE); Vibrio NOT DETECTED (NOT DETECTE); Vibrio cholerae NOT DETECTED (NOT DETECTE); Yersinia enterocolitica NOT DETECTED (NOT DETECTE)
[2023-09-11 04:54] LABS: Hemoglobin 8.1 g/dL (14.0-18.0); Mean Corpuscular HGB Conc 31.2 g/dL (29.9-35.2); Mean Corpuscular Hemoglobin 28.3 pg (25.9-34.0); Mean Corpuscular Volume 90.9 fL (80.0-94.0); Mean Platelet Volume 10.1 fL (9.5-13.5); Platelet Count 153 10^3/uL (150-450); Red Blood Count 2.86 10^6/uL (4.70-6.10); Red Cell Distribution Width 15.6 % (11.0-15.0); White Blood Count 11.5 10^3/uL (4.0-11.0)
[2023-09-11] MEDS: VANCOMYCIN HCL 7,500 MG/150 ML BOTTLE 125 MG PO ×4 (05:59→21:18)
[2023-09-11] MEDS: DEXTROSE 5 %-0.45 % SOD CHLORD 1,000 ML 100 ML IV (06:01)
--- NOTE | 2023-09-11 09:05 | P.HP_ITS ---
<Statement entered by Skye Boothe DO - 09/11/23 10:56> This documentation has been reviewed and approved. I have also seen and evaluated patient at the time of admission and agree with the above findings and plan of care. 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 He was admitted to this facility approximately 3 weeks ago with a UTI (Pseudomonas aeruginosa) and completed an appropriate course of antibiotics after discharge. He noted onset of diarrhea approximately 2 weeks later. He has some colicky abdominal pain with active diarrhea, but otherwise denies abdominal pain, nausea and vomiting, chest pain, or shortness of breath. He presented to the ED for further evaluation. Workup in the ED revealed leukocytosis (13.4), stable vital signs without fever or hypotension, anemia (8.9) stable/consistent with his anemia of chronic disease. His renal function is slightly worse than his baseline CKD 5 (BUN 100, CR 6.5, EGFR 8 on ED labs). A GI panel was positive for C. difficile. A CT of the abdomen and pelvis noted inflammatory colon changes consistent with colitis. He was admitted in observation to the hospitalist service early this morning. At the time of my exam the patient is resting comfortably in bed. He is sleeping soundly but awakens to voice. He is alert and oriented x 3 and cooperates with exam. He continues to deny abdominal pain except mild colicky pain with diarrhea, N/V, chest pain or shortness of breath. He lives at home alone and has caregivers in the house 8 hours daily. He is nonambulatory and dependent on Mckenzie lift for transfers. He reports that he is not currently on dialysis and that nephrology is trying to keep him off dialysis if possible. D/t the pt's dehydration and significant risk for SHAWN and skin breakdown with active C-diff infection, he will be made an inpatient as we expect greater than a 2 midnight stay. 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 - Other specified dermatitis (ICD-10) CAD (coronary artery disease) ?I25.10 - Atherosclerotic heart disease of [place] coronary artery without angina pectoris (ICD-10) T2DM (type 2 diabetes mellitus) ?E11.9 - Type 2 diabetes mellitus without complications (ICD-10) Hypothyroid ?E03.9 - Hypothyroidism, unspecified (ICD-10) HLD (hyperlipidemia) ?E78.5 - Hyperlipidemia, unspecified (ICD-10) HTN (hypertension) ?I10 - Essential (primary) hypertension (ICD-10) Anemia in CKD (chronic kidney disease) ?N18.9 - Chronic kidney disease, unspecified (ICD-10) ?D63.1 - Anemia in chronic kidney disease (ICD-10) Chronic indwelling Wooten catheter ?Z97.8 - Presence of other specified devices (ICD-10) Paraplegia ?G82.20 - Paraplegia, unspecified (ICD-10) Bedbound ?Z74.01 - Bed confinement status (ICD-10) H/O: CVA (cerebrovascular accident) ?Z86.73 - Personal history of transient ischemic attack (TIA), and cerebral infarction without residual deficits (ICD-10) CKD (chronic kidney disease) stage 5, GFR less than 15 ml/min ?N18.5 - Chronic kidney disease, stage 5 (ICD-10) Surgical History (Updated 09/11/23 @ 03:19 by Bethany Amor) H/O heart artery stent ?Z95.5 - Presence of coronary angioplasty implant and graft (ICD-10) Social History (Updated 09/11/23 @ 01:42 by Bethany Amor) Within the past year, how often did you have a drink containing alcohol: never Score interpretation: A score less than 4 is consistent with normal alcohol consumption. Smoking status: Former smoker Non-prescribed substance use: denies use Highest level of school completed/degree received: Associate degree: occupational, technical, vocational program Are you now , , , , never or living with a partner: don't know In a typical week, how many times do you talk on the telephone with family, friends, or neighbors: never How often do you get together with friends or relatives: never How often do you attend buddhist or voodoo services: never Little interest or pleasure in doing things: not at all Feeling down, depressed, or hopeless: not at all Do you think of yourself as: straight/heterosexual Gender Identity: male Meds Home Medications and Allergies Home Medications ?Medication ?Instructions ?Recorded ?Confirmed ?Type acetaminophen 325 mg capsule 975 mg PO TID PRN fever or pain 08/17/23 09/11/23 History (Tylenol) albuterol 90 mcg/actuation aerosol 180 mcg inhalation QID PRN 08/17/23 09/11/23 History inhaler shortness of breath or wheezing aspirin 81 mg tablet,delayed 81 mg PO DAILY 08/17/23 09/11/23 History release (Adult Low Dose Aspirin) atorvastatin 80 mg tablet 80 mg PO .QHS 08/17/23 09/11/23 History bacitracin zinc 500 unit/gram 1 applic topical DAILY PRN skin 08/17/23 09/11/23 History topical ointment irritation calcitriol 0.25 mcg capsule 0.25 mcg PO .3 TIMES WEEK 08/17/23 09/11/23 History carvedilol 12.5 mg tablet 12.5 mg PO BID 08/17/23 09/11/23 History cholecalciferol (vitamin D3) 50 2,000 unit PO DAILY 08/17/23 09/11/23 History mcg (2,000 unit) capsule clobetasol 0.05 % topical cream 1 applic topical BID 08/17/23 09/11/23 History darbepoetin danielle in polysorbat 100 100 mcg subcut QWEEK 08/17/23 09/11/23 History mcg/mL in polysorbate injection darifenacin 15 mg tablet,extended 15 mg PO DAILY 08/17/23 09/11/23 History release 24 hr ferrous sulfate 325 mg (65 mg 325 mg PO .QOD 08/17/23 09/11/23 History iron) tablet,delayed release finasteride 5 mg tablet 5 mg PO DAILY 08/17/23 09/11/23 History guaifenesin 600 mg tablet, 600 mg PO BID PRN congestion 08/17/23 09/11/23 History extended release 12 hr hydrophilic cream 1 applic topical BID 08/17/23 09/11/23 History levothyroxine 75 mcg capsule 75 mcg PO QAM 08/17/23 09/11/23 History lidocaine HCl 2 % topical gel 1 applic topical DAILY PRN pain 08/17/23 09/11/23 History lidocaine HCl 4 % topical ointment 1 ea topical TID PRN pain 08/17/23 09/11/23 History (AsperFlex (lidocaine HCl)) loratadine 10 mg tablet (Allergy 10 mg PO .QOD 08/17/23 09/11/23 History Relief (loratadine)) melatonin 3 mg tablet 3 mg PO .QHS PRN sleep 08/17/23 09/11/23 History miconazole nitrate 2 % topical 1 applic topical DAILY PRN fungal 08/17/23 09/11/23 History powder (Remedy Phytoplex Antifungal) multivitamin 1 tab PO DAILY 08/17/23 09/11/23 History nitroglycerin 0.4 mg sublingual 0.4 mg sublingual Q5M PRN chest 08/17/23 09/11/23 History tablet pain omeprazole 20 mg tablet,delayed 20 mg PO DAILY 08/17/23 09/11/23 History release polyethylene glycol 3350 17 17 g PO DAILY PRN constipation 08/17/23 09/11/23 History gram/dose oral powder (Miralax) potassium citrate-citric acid 30 ml PO DAILY 08/17/23 09/11/23 History 1,100 mg-334 mg/5 mL oral solution pramoxine 1 % lotion 1 applic topical TID PRN itching 08/17/23 09/11/23 History semaglutide 2 mg/dose (8 mg/3 mL) 0.5 mg subcut QWEEK 08/17/23 09/11/23 History subcutaneous pen injector (Ozempic) sennosides 8.6 mg capsule 8.6 mg PO DAILY PRN constipation 08/17/23 09/11/23 History trazodone 100 mg tablet 100 mg PO .QHS 08/17/23 09/11/23 History venlafaxine 37.5 mg 37.5 mg PO DAILY 08/17/23 09/11/23 History capsule,extended release 24 hr wound dressings (Triad Wound 1 applic topical .COMPLEX 08/17/23 09/11/23 History Dressing paste) zinc oxide 20 % topical ointment 1 applic topical DAILY PRN skin 08/17/23 09/11/23 History irritation ixekizumab 80 mg/mL subcutaneous See Rx Instructions subcut .COMPLEX 09/11/23 09/11/23 History syringe sodium chloride 0.65 % nasal spray 2 spray intranasal QID PRN dry 09/11/23 09/11/23 History aerosol (Frazer Saline) nasal passages triamcinolone acetonide 0.1 % 1 applic topical BID 09/11/23 09/11/23 History topical ointment Allergies Allergy/AdvReac Type Severity Reaction Status Date / Time Penicillins Allergy Mild Rash Verified 09/10/23 22:11 ferumoxides Allergy Rash Verified 09/10/23 22:11 sulfamethoxazole AdvReac Mild Nausea Verified 09/10/23 22:11 [From Sulfamethoxazole-Trimethoprim] trimethoprim AdvReac Mild Nausea Verified 09/10/23 22:11 [From Sulfamethoxazole-Trimethoprim] Exam Constitutional Vital Signs, click to edit/add: Last Vital Signs Temp 97.0 F L 09/11/23 06:00 Pulse 75 09/11/23 07:53 Resp 20 09/11/23 06:00 BP 124/70 09/11/23 06:00 Pulse Ox 98 09/11/23 06:00 O2 Del Method Room Air 09/11/23 06:00 Common normals: no apparent distress, oriented x3, alert and well nourished General appearance: cooperative Orientation/consciousness: Yes awake [facility] Common normals: normocephalic, head/scalp atraumatic, hearing grossly normal bilaterally, external nose normal and moist oral mucous membranes Eye Common normals: PERRL, EOMs intact bilaterally, conjunctivae normal and no s cleral icterus Alignment: alignment normal Eyelid: eyelids normal Chest Common normals: inspection of chest normal Chest: symmetrical chest wall rise Respiratory Common normals: normal respiratory effort, no retractions, no use of accessory muscles and clear to auscultation bilaterally Effort & inspection: able to speak in complete sentences Auscultation: diminished lung sounds (BLL) Cardio Common normals: no JVD, regular rate, regular rhythm, S1 normal heart sound, S2 normal heart sound, no gallops, no clicks, no rub and peripheral pulses 2+ throughout Heart sounds: murmur (HSM 2/6) and other (Distant HT) GI Common normals: Normal to inspection, nondistended, normoactive bowel sounds present, soft to palpation, no hepatosplenomegaly, no masses and no bruits Palpation: tender (Mild, diffuse, Non-specific chronic tenderness. No foci.) Bladder/kidney exam: bladder normal to palpation Back & Pelvis Common normals: thoracic and lumbar spine normal to inspection Extremity Common normals: normal capillary refill and no pedal edema General: normal exam except as noted and edema (1-2+ Bilat knees to toes); no clubbing and no cyanosis Neuro [place] Coma Scale: GCS not evaluated Common normals: CN's II-XII intact bilaterally, moves all extremities and no sensory deficits noted Speech: speech normal Motor exam: muscle tone abnormal hypotonic: right lower extremity and left lower extremity and other (Pos dorsiflexion bilat) Psych Common normals: mental status grossly normal, thought process normal, affect normal and activity/motor behavior normal Results Labs Labs: Short CBC 09/10/23 09/11/23 Range/Units 22:22 04:29 WBC 13.4 H 11.5 H (4.0-11.0) 10^3/uL Hgb 8.9 L 8.1 L (14.0-18.0) g/dL Hct 28.6 L 26.0 L (42.0-54.0) % Plt Count 176 153 (150-450) 10^3/uL BMP 09/10/23 22:22 Sodium 135 L Potassium 3.5 Chloride 102 Carbon Dioxide 20.5 L BUN 100.0 H* Creatinine 6.50 H* Glucose 146 H Calcium 9.1 Liver Function 09/10/23 Range/Units 22:22 Total Bilirubin 0.3 (0.2-1.0) mg/dL AST 15 (15-37) U/L ALT 37 (16-63) U/L Alkaline Phosphatase 143 H (46-116) U/L Albumin 2.3 L (3.4-5.0) g/dL Pulse Oximetry Attestation: I have reviewed the pertinent pulse oximetry results. Imaging CT scan - abdomen: Attestation: I have reviewed the pertinent imaging results. Radiologist's impression: COMPARISON: 09/05/2022 IMPRESSION: 1. There are new bilateral ureteral stents identified, with tips appearing to be appropriate in the bilateral renal pelvis and the urinary bladder. There are numerous nonobstructing bilateral renal calculi identified. No evidence for hydronephrosis or hydroureter. 2. A Wooten catheter is visualized, with the urinary bladder decompressed. Small amount of gas in the bladder, likely related to instrumentation. This can be correlated with urinalysis to exclude less likely possibility of infection. 3. Circumferential wall thickening of the sigmoid colon and the rectum, with surrounding inflammatory stranding. This could represent nonspecific colitis. 4. There is a small amount of liquid material in the distal colon, which can present as diarrhea. Assessment and Plan Assessment and Plan (1) C. difficile colitis: Assessment and Plan: Acute * Adm inpatient * We plan greater than a 2 midnight stay for medically necessary hospital care, i.e.: IV fluids, antibiotic administration, strict I&O, close monitoring of labs and skin as pt is at high risk for SHAWN and skin breakdown (non-ambulatory pt w/ uncontrolled diarrhea/dehydration/baseline CKD5) * Recently completed course of ABX for UTI (Pseudomonas aeruginosa) from chronically indwelling urinary catheter - approx 2 weeks prior to onset * PO Firvanq QID * Contact precautions * Leukocytosis, but afebrile w/ stable BP and mentation. Low clinical suspicion of sepsis at this time. * CBC, CMP daily (2) Dehydration: Assessment and Plan: Acute * Clinical dehydration and risk for worsening w/ frequent uncontrolled diarrhea * NS 1 liter bolus given in ED * NS IVF x 1 liter at 125/hr, decrease to 100 ml/hr now to avoid fluid overload in a pt w/ compromised renal fx at baseline and unknown HF history * Strict I&O * CMP daily (3) At high risk for kidney injury: Assessment and Plan: Acute * Moderately worsened renal fx in ED but not yet to the level of SHAWN - BUN 100, Cr 6.5, eGFR 8 * Baseline CKD 5 (baseline labs: BUN 77-110, Cr 5.4-5.8, eGFR 10) * At significant risk for SHAWN, possibly even emergent dialysis (requires hospital transfer) from dehydration w/ frequent diarrhea * See IVFs/dehydration above * Hold renal toxic medications if applicable * Consider Tele-Nephrology consult pending clinical course * Daily CMP (4) Hyperglycemia: Assessment and Plan: Acute on chronic * Uncontrolled hyperglycemia on ED labs - see T2DM (5) T2DM (type 2 diabetes mellitus): Assessment and Plan: Chronic * Hold home Ozempic during acute illness/hospitalization (Takes weekly on Mond ays) * ACHS glucometer checks * Med SSI for glucose correction * Med CC diet Qualifiers: Chronic kidney disease stage: stage 5, not on chronic dialysis Diabetes mellitus complication detail: with chronic kidney disease Diabetes mellitus complication status: with kidney complications Diabetes mellitus mcfp insulin use: with director long term care use Qualified Code(s): E11.22 - Type 2 diabetes mellitus with diabetic chronic kidney disease; N18.5 - Chronic kidney disease, stage 5; Z79.4 - lobsterman (current) use of insulin (6) H/O: CVA (cerebrovascular accident): Assessment and Plan: Chronic * Non-ambulatory/bedbound * Mild L side residual, but unable to stand independently * [facility]ck[facility] lift for transfers (7) Chronic indwelling Wooten catheter: Assessment and Plan: Chronic * Maintain chronic indwelling Wooten catheter * Urine clear, w/o hematuria (8) Anemia in CKD (chronic kidney disease): Assessment and Plan: Chronic * Pt pale, but denies dizziness/sob * Hgb at/near baseline * CBC daily * Darbepoetin prescribed weekly per nephrology Qualifiers: Chronic kidney disease stage: stage 5, not on chronic dialysis Qualified Code(s): N18.5 - Chronic kidney disease, stage 5; D63.1 - Anemia in chronic kidney disease (9) Hypothyroid: Assessment and Plan: Chronic * Continue home levothyroxine * Check TSH w/ reflex FT4 in AM to monitor therapeutic status Qualifiers: Hypothyroidism type: unspecified Qualified Code(s): E03.9 - Hypothyroidism, unspecified (10) CKD (chronic kidney disease) stage 5, GFR less than 15 ml/min: Assessment and Plan: Chronic * Baseline CKD5, not currently on dialysis * Follows outpatient with nephrology - defer to outpatient management * Continue home calcitriol, Vit D3 supplement (11) CAD (coronary artery disease): Assessment and Plan: Chronic * Continue home ASA, BB, and statin. Not on ACEi/ARB at baseline likely d/t end-stage CKD Qualifiers: Associated angina: without angina Coronary Disease-Associated Artery/Lesion type: [place] artery [place] vs. transplanted heart: [place] heart Qualified Code(s): I25.10 - Atherosclerotic heart disease of [place] coronary artery without angina pectoris (12) Bedbound: Assessment and Plan: Chronic * Turn q2h (13) Psoriasiform eczema: Assessment and Plan: Chronic * Hold home Ustekinumab (immunosuppressive) for now d/t active C-diff infection * Likely resume once diarrhea has resolved Urinary Catheter Management Urinary Catheter Management Urethral: Cath placed during this visit: no
[2023-09-11] MEDS: 0.9 % SODIUM CHLORIDE 1,000 ML 100 ML IV ×2 (09:06→19:17)
[2023-09-11 09:16] LABS: Alanine Aminotransferase 38 U/L (16-63); Albumin Globulin Ratio 0.6; Albumin Level 2.1 g/dL (3.4-5.0); Alkaline Phosphatase 139 U/L (46-116); Anion Gap 18.1; Aspartate Amino Transferase 17 U/L (15-37); Bilirubin Total 0.3 mg/dL (0.2-1.0); Carbon Dioxide 18.5 mmol/L (21.0-32.0); Chloride 105 mmol/L (98-107); Estimated GFR (African America 11 (>=60); Estimated GFR (Non-African Ame 9 (>=60); Globulin 3.5 g/dL; Glucose 115 mg/dL (74-106); Potassium 3.6 mmol/L (3.5-5.1); Sodium 138 mmol/L (136-145); Total Protein 5.6 g/dL (6.4-8.2)
[2023-09-11 09:20] LABS: Glucometer 120 mg/dL (74-106)
--- NOTE | 2023-09-11 10:42 | SWNOTE1 ---
SW attempted to see pt, pt voiced he was tired and asked for SW to come back later today.
--- NOTE | 2023-09-11 10:43 | CM.NOTE ---
Rounds made with Dr. Boothe, no discharge for pt today.
[2023-09-11] MEDS: ASPIRIN 81 MG TABLET.DR PO (11:59)
[2023-09-11] MEDS: FINASTERIDE 5 MG TABLET PO (11:59)
[2023-09-11] MEDS: HEPARIN SODIUM (PORCINE) 5,000 UNIT/ML VIAL 5000 UNIT SUBQ ×2 (11:59→20:41)
--- NOTE | 2023-09-11 12:06 | SWNOTE1 ---
CONNIE spoke to Neelima at [facility]. She has spoken to her marketing planning manager nad Kim [facility]RAY is through his VA insurance. As of now the VA is only approving care thru 09/17/23, unless there is a skilled need other than the solomon at home. The [facility] has told Kim BRAY that the caregiver can do solomon care, med box, and the triad paste wound care. Unless patient has another skilled need such as PT/OT or a detention need from Kim , they will not be coming in after 09/17/23. Kim provided CONNIE with the [place] fax number if pt does have other nursing care indicated or a need for PT/OT. CONNIE asked Neelima if they would still like updates and she voiced yes. She voiced Kim will continue to come in until 09/17/23. Updates sent to Kim BRAY and to the [place] fax number in case pt has any other skilled need. Updates included face sheet, ER note, H&P.
[2023-09-11 12:19] LABS: Glucometer 110 mg/dL (74-106)
--- NOTE | 2023-09-11 12:43 | SWNOTE1 ---
CONNIE was able to meet with pt to discuss dc needs. Pt lives at home alone, his daughter assists in the home and he has caregivers for 8 hours per day at home thru the [place]. CONNIE notified pt that his [facility] nurse would be ending on 09/17/23. Pt was surprised by this information. CONNIE explained to pt the emails that CONNIE has between Neelima at [facility] and the [place]. SW to provide this information to pt. He voiced he will have to have an RN administer shots. CONNIE is not sure on this and will check with Neelima from [facility]. CONNIE asked how long he will need the shots for? Pt voiced he thinks forever. CONNIE advised pt that does not usually continue services forever , and that may have to teach pt/daughter/caregiver to administer, depeding on what the shot is.
--- NOTE | 2023-09-11 12:49 | SWNOTE1 ---
Important Message from Medicare reviewed and discussed with patient. Pt. verbalized understanding and signed the form. Original given to patient and copy placed in patient?s chart.
--- NOTE | 2023-09-11 14:24 | SWNOTE1 ---
CONNIE provided pt with the emails with [facility]. CONNIE let pt know that CONNIE is waiting to hear back from Neelima at [facility] to see what she found out about the shots.
[2023-09-11 17:50] LABS: Glucometer 136 mg/dL (74-106)
[2023-09-11] MEDS: CLOBETASOL PROPIONATE 0.05% CREAM 15 GRAM TUBE 1 APPLIC TOPICAL (20:40)
[2023-09-11 20:50] LABS: Glucometer 129 mg/dL (74-106)
[2023-09-11] MEDS: TRAZODONE HCL 50 MG TABLET 100 MG PO (21:17)
[2023-09-11] MEDS: ZINC OXIDE 20% 1 APPLIC TOPICAL (21:18)
[2023-09-12] VITALS (15 sets, daily range): BP systolic 133–162; BP diastolic 68–80; PULSE 77–92; TEMP 36.3–36.6; O2SAT 97–99
[2023-09-12] MEDS: 0.9 % SODIUM CHLORIDE 1,000 ML 100 ML IV ×2 (04:36→14:42)
[2023-09-12 05:43] LABS: Basophils Absolute Auto 0.1 10^3/uL (0.0-0.1); Basophils Percent Auto 0.7 % (0.2-2.0); Eosinophils Absolute Auto 0.4 10^3/uL (0.0-0.7); Eosinophils Percent Auto 4.2 % (0.9-7.0); Hematocrit 26.3 % (42.0-54.0); Immature Granulocytes Abs Auto 0.11 10^3/uL (0.00-0.03); Immature Granulocytes Pct Auto 1.2 % (0.0-0.5); Lymphocytes Absolute Auto 1.1 10^3/uL (1.2-3.8); Lymphocytes Percent Auto 11.3 % (20.5-60.0); Mean Corpuscular HGB Conc 30.4 g/dL (29.9-35.2); Mean Corpuscular Hemoglobin 27.8 pg (25.9-34.0); Mean Corpuscular Volume 91.3 fL (80.0-94.0); Mean Platelet Volume 9.6 fL (9.5-13.5); Monocytes Absolute Auto 1.1 10^3/uL (0.3-0.8); Monocytes Percent Auto 11.7 % (1.7-12.0); Neutrophils Absolute Auto 6.7 10^3/uL (1.4-6.5); Neutrophils Percent Auto 70.9 % (43.0-75.0); Platelet Count 153 10^3/uL (150-450); Red Blood Count 2.88 10^6/uL (4.70-6.10); Red Cell Distribution Width 15.5 % (11.0-15.0); White Blood Count 9.4 10^3/uL (4.0-11.0)
[2023-09-12] MEDS: VANCOMYCIN HCL 7,500 MG/150 ML BOTTLE 125 MG PO ×4 (05:49→21:56)
[2023-09-12] MEDS: LEVOTHYROXINE SODIUM 75 MCG TABLET PO (05:49)
[2023-09-12 05:52] LABS: Estimated Average Glucose 80 mg/dL; Glycohemoglobin A1C 4.4 % (4.5-6.2)
[2023-09-12 05:59] LABS: Alanine Aminotransferase 49 U/L (16-63); Albumin Globulin Ratio 0.6; Albumin Level 2.1 g/dL (3.4-5.0); Alkaline Phosphatase 139 U/L (46-116); Aspartate Amino Transferase 23 U/L (15-37); Bilirubin Total 0.3 mg/dL (0.2-1.0); Calcium 9.1 mg/dL (8.5-10.1); Carbon Dioxide 20.3 mmol/L (21.0-32.0); Chloride 107 mmol/L (98-107); Estimated GFR (African America 11 (>=60); Estimated GFR (Non-African Ame 9 (>=60); Globulin 3.4 g/dL; Glucose 126 mg/dL (74-106); Potassium 3.3 mmol/L (3.5-5.1); Sodium 137 mmol/L (136-145); Total Protein 5.5 g/dL (6.4-8.2)
[2023-09-12 06:08] LABS: TSH W/ REFLEX FT4 1.943 uIU/mL (0.358-3.740)
--- NOTE | 2023-09-12 08:44 | SWNOTE1 ---
CONNIE received email back from Neelima at [facility]. Neelima had received message from her high up, Dipti, at [facility] and the patient's home based primary care (which is the [facility]'s own home care) should be taking over care for this patient and his shots. CONNIE to advise pt of this. [facility] did again voice CONNIE should send over updates to [facility] transfer [facility]. CONNIE sent over face sheet, ED note, H&P to [place] transfer center.
[2023-09-12] MEDS: OMEPRAZOLE 20 MG CAPSULE.DR PO (09:36)
[2023-09-12] MEDS: CHOLECALCIFEROL (VITAMIN D3) 25 MCG/1,000 UNITS TABLET 50 MCG PO (09:36)
[2023-09-12] MEDS: VENLAFAXINE HCL ER 37.5 MG CAPSULE PO (09:36)
[2023-09-12] MEDS: POTASSIUM CITRATE 10 MEQ ER TABLET PO (09:36)
[2023-09-12] MEDS: HEPARIN SODIUM (PORCINE) 5,000 UNIT/ML VIAL 5000 UNIT SUBQ ×2 (09:37→21:55)
[2023-09-12] MEDS: MULTIVITAMIN TABLET 1 TAB PO (09:37)
[2023-09-12] MEDS: FINASTERIDE 5 MG TABLET PO (09:37)
[2023-09-12] MEDS: ASPIRIN 81 MG TABLET.DR PO (09:37)
[2023-09-12] MEDS: CLOBETASOL PROPIONATE 0.05% CREAM 15 GRAM TUBE 1 APPLIC TOPICAL ×2 (09:38→21:55)
[2023-09-12] MEDS: FERROUS SULFATE 325 MG TABLET PO (09:42)
--- NOTE | 2023-09-12 12:29 | CM.NOTE ---
Rounds made with Dr. Morris, no discharge today. Pt continues with diarrhea, pt is bedbound and uses Mckenzie lift.
--- NOTE | 2023-09-12 12:50 | P.PN_ITS ---
<Statement entered by Shaikh Arturo MD - 09/12/23 13:17> This documentation has been reviewed and approved. Seen and examined. Case discussed with RN, Hospitalist [employer] Agree with clinical documentation/treatment plan. Patient admitted for c diff colitis - on PO vancomycin. Diarrhea and abdominal improved a little. He is at high risk of poor outcome due to CKD, T2 DM, immo bility and will need continued inpatient treatment and monitoring. Progress Note: Subjective Subjective Interval history: 09/12/23 0940 The patient is resting comfortably in bed at the time of my exam. He is awake and alert and oriented x 3. His renal function is improving today since his admission, but is not yet back to baseline. He continues to have frequent mucoid stools but the stool volume is lessening. Discharge likely in the next 24 to 48 hours pending further improvement of his renal function and decreased frequency of his stooling. Exam Constitutional Vital Signs, click to edit/add: Last Vital Signs Temp 97.8 F 09/12/23 04:37 Pulse 84 09/12/23 12:00 Resp 16 09/12/23 04:37 BP 133/68 09/12/23 04:37 Pulse Ox 98 09/12/23 04:37 O2 Del Method Room Air 09/12/23 04:37 Common normals: no apparent distress, oriented x3 and alert General appearance: cooperative Orientation/consciousness: Yes awake HENMT Common normals: normocephalic, head/scalp atraumatic and hearing grossly normal bilaterally Head and scalp: normocephalic and atraumatic Eye Common normals: PERRL, EOMs intact bilaterally, conjunctivae normal and no scleral icterus General eye: normal appearance of both eyes Conjunctiva: conjunctiva(e) normal Pupil: PERRL Chest Common normals: inspection of chest normal Chest: symmetrical chest wall rise Respiratory Common normals: normal respiratory effort, no use of accessory muscles and clear to auscultation bilaterally Effort & inspection: able to speak in complete sentences Auscultation: diminished lung sounds (BLL) Cardio Common normals: regular rate, regular rhythm, S1 normal heart sound, S2 normal heart sound, no murmurs and peripheral pulses 2+ throughout GI Common normals: Normal to inspection, nondistended, normoactive bowel sounds present, soft to palpation and no hepatosplenomegaly Palpation: tender (Mild, diffuse, chronic) Bladder/kidney exam: bladder normal to palpation Extremity Common normals: normal to inspection and no calf tenderness General: edema (1+ BLE); no clubbing and no cyanosis Neuro Common normals: CN's II-XII intact bilaterally, moves all extremities, no focal motor deficits and no sensory deficits noted Motor exam: other (Chronic L side resid from CVA. Non-ambulatory/unable to bear weight) Psych Common normals: mental status grossly normal Progress Note: Objective Labs Labs: Short CBC 09/12/23 Range/Units 05:20 WBC 9.4 (4.0-11.0) 10^3/uL Hgb 8.0 L (14.0-18.0) g/dL Hct 26.3 L (42.0-54.0) % Plt Count 153 (150-450) 10^3/uL BMP 09/12/23 05:20 Sodium 137 Potassium 3.3 L Chloride 107 Carbon Dioxide 20.3 L BUN 90.0 H* Creatinine 6.00 H* Glucose 126 H Calcium 9.1 Liver Function 09/12/23 Range/Units 05:20 Total Bilirubin 0.3 (0.2-1.0) mg/dL AST 23 (15-37) U/L ALT 49 (16-63) U/L Alkaline Phosphatase 139 H (46-116) U/L Albumin 2.1 L (3.4-5.0) g/dL Progress Note: A&P Assessment and Plan (1) C. difficile colitis: Assessment and Plan: Acute * Slowly improving * Diarrhea volume decreased, but frequency remains the same * Pt reports only mild crampy pain w/ diarrhea episodes now - improving * Continue PO Firvanq QID * Maintain contact precautions * Leukocytosis resolved * CBC, CMP daily (2) Dehydration: Assessment and Plan: Acute * Clinical dehydration improving, but remains at risk for worsening w/ frequent uncontrolled diarrhea * Continue NS IVF at 100 ml/hr - gentle IVFS to avoid fluid overload in a pt w/ compromised renal fx at baseline and unknown HF history * Does not appear overloaded to date * Strict I&O * CMP daily (3) At high risk for kidney injury: Assessment and Plan: Acute * Moderately improved renal fx today - BUN 90, Cr 6.0, eGFR 9 * Baseline CKD 5 (baseline labs: BUN 77-110, Cr 5.4-5.8, eGFR 10) * At significant risk for SHAWN from dehydration w/ frequent diarrhea * See IVFs/dehydration above * Hold renal toxic medications if applicable * Consider Tele-Nephrology consult pending clinical course - not indicated at this time but still could be considered pending clinical course * Daily CMP (4) Hyperglycemia: Assessment and Plan: Acute on chronic * Uncontrolled hyperglycemia on ED labs - see T2DM (5) T2DM (type 2 diabetes mellitus): Assessment and Plan: Chronic * Hold home Ozempic during acute illness/hospitalization (Takes weekly on Mondays) * ACHS glucometer checks * Med SSI for glucose correction * Med CC diet Qualifiers: Chronic kidney disease stage: stage 5, not on chronic dialysis Diabetes mellitus complication detail: with chronic kidney disease Diabetes mellitus complication status: with kidney complications Diabetes mellitus termite treater insulin use: with termite treater use Qualified Code(s): E11.22 - Type 2 diabetes mellitus with diabetic chronic kidney disease; N18.5 - Chronic kidney disease, stage 5; Z79.4 - exterminator termite (current) use of insulin (6) H/O: CVA (cerebrovascular accident): Assessment and Plan: Chronic * Non-ambulatory/bedbound * Mild L side residual, but unable to stand independently * Mckenzie lift for transfers (7) Chronic indwelling Wooten catheter: Assessment and Plan: Chronic * Maintain chronic indwelling Wooten catheter * Urine clear, w/o hematuria (8) Anemia in CKD (chronic kidney disease): Assessment and Plan: Chronic * Pt pale, but denies dizziness/sob * Hgb slightly below baseline today * Darbepoetin injection due today, but pt did not bring it from home and no one is available to bring it in. Plan to take as soon as he is discharged. * CBC daily Qualifiers: Chronic kidney disease stage: stage 5, not on chronic dialysis Qualified Code(s): N18.5 - Chronic kidney disease, stage 5; D63.1 - Anemia in chronic kidney disease (9) Hypothyroid: Assessment and Plan: Chronic * Continue home levothyroxine * Check TSH WNL Qualifiers: Hypothyroidism type: unspecified Qualified Code(s): E03.9 - Hypothyroidism, unspecified (10) CKD (chronic kidney disease) stage 5, GFR less than 15 ml/min: Assessment and Plan: Chronic * Baseline CKD5, not currently on dialysis * Follows outpatient with nephrology - defer to outpatient management * Continue home calcitriol, Vit D3 supplement (11) CAD (coronary artery disease): Assessment and Plan: Chronic * Continue home ASA, BB, and statin. Not on ACEi/ARB at baseline likely d/t end-stage CKD Qualifiers: Associated angina: without angina Coronary Disease-Associated Artery/Lesion type: [place] artery [place] vs. 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
--- NOTE | 2023-09-12 12:50 | PM.PN ---
Progress Note: Subjective Subjective Interval history: 09/12/23 0940 The patient is resting comfortably in bed at the time of my exam. He is awake and alert and oriented x 3. His renal function is improving today since his admission, but is not yet back to baseline. He continues to have frequent mucoid stools but the stool volume is lessening. Discharge likely in the next 24 to 48 hours pending further improvement of his renal function and decreased frequency of his stooling. Exam Constitutional Vital Signs, click to edit/add: Last Vital Signs Temp 97.8 F 09/12/23 04:37 Pulse 84 09/12/23 12:00 Resp 16 09/12/23 04:37 BP 133/68 09/12/23 04:37 Pulse Ox 98 09/12/23 04:37 O2 Del Method Room Air 09/12/23 04:37 Common normals: no apparent distress, oriented x3 and alert General appearance: cooperative Orientation/consciousness: Yes awake HENMT Common normals: normocephalic, head/scalp atraumatic and hearing grossly normal bilaterally Head and scalp: normocephalic and atraumatic Eye Common normals: PERRL, EOMs intact bilaterally, conjunctivae normal and no scleral icterus General eye: normal appearance of both eyes Conjunctiva: conjunctiva(e) normal Pupil: PERRL Chest Common normals: inspection of chest normal Chest: symmetrical chest wall rise Respiratory Common normals: normal respiratory effort, no use of accessory muscles and clear to auscultation bilaterally Effort & inspection: able to speak in complete sentences Auscultation: diminished lung sounds (BLL) Cardio Common normals: regular rate, regular rhythm, S1 normal heart sound, S2 normal heart sound, no murmurs and peripheral pulses 2+ throughout GI Common normals: Normal to inspection, nondistended, normoactive bowel sounds present, soft to palpation and no hepatosplenomegaly Palpation: tender (Mild, diffuse, chronic) Bladder/kidney exam: bladder normal to palpation Extremity Common normals: normal to inspection and no calf tenderness General: edema (1+ BLE); no clubbing and no cyanosis Neuro Common normals: CN's II-XII intact bilaterally, moves all extremities, no focal motor deficits and no sensory deficits noted Motor exam: other (Chronic L side resid from CVA. Non-ambulatory/unable to bear weight) Psych Common normals: mental status grossly normal Progress Note: Objective Labs Labs: Short CBC 09/12/23 Range/Units 05:20 WBC 9.4 (4.0-11.0) 10^3/uL Hgb 8.0 L (14.0-18.0) g/dL Hct 26.3 L (42.0-54.0) % Plt Count 153 (150-450) 10^3/uL BMP 09/12/23 05:20 Sodium 137 Potassium 3.3 L Chloride 107 Carbon Dioxide 20.3 L BUN 90.0 H* Creatinine 6.00 H* Glucose 126 H Calcium 9.1 Liver Function 09/12/23 Range/Units 05:20 Total Bilirubin 0.3 (0.2-1.0) mg/dL AST 23 (15-37) U/L ALT 49 (16-63) U/L Alkaline Phosphatase 139 H (46-116) U/L Albumin 2.1 L (3.4-5.0) g/dL Progress Note: A&P Assessment and Plan (1) C. difficile colitis: Assessment and Plan: Acute Slowly improving Diarrhea volume decreased, but frequency remains the same Pt reports only mild crampy pain w/ diarrhea episodes now - improving Continue PO Firvanq QID Maintain contact precautions Leukocytosis resolved CBC, CMP daily (2) Dehydration: Assessment and Plan: Acute Clinical dehydration improving, but remains at risk for worsening w/ frequent uncontrolled diarrhea Continue NS IVF at 100 ml/hr - gentle IVFS to avoid fluid overload in a pt w/ compromised renal fx at baseline and unknown HF history Does not appear overloaded to date Strict I&O CMP daily (3) At high risk for kidney injury: Assessment and Plan: Acute Moderately improved renal fx today - BUN 90, Cr 6.0, eGFR 9 Baseline CKD 5 (baseline labs: BUN 77-110, Cr 5.4-5.8, eGFR 10) At significant risk for SHAWN from dehydration w/ frequent diarrhea See IVFs/dehydration above Hold renal toxic medications if applicable Consider Tele-Nephrology consult pending clinical course - not indicated at this time but still could be considered pending clinical course Daily CMP (4) Hyperglycemia: Assessment and Plan: Acute on chronic Uncontrolled hyperglycemia on ED labs - see T2DM (5) T2DM (type 2 diabetes mellitus): Assessment and Plan: Chronic Hold home Ozempic during acute illness/hospitalization (Takes weekly on Mondays) ACHS glucometer checks Med SSI for glucose correction Med CC diet Qualifiers: Chronic kidney disease stage: stage 5, not on chronic dialysis Diabetes mellitus complication detail: with chronic kidney disease Diabetes mellitus complication status: with kidney complications Diabetes mellitus residential insulin use: with residential use Qualified Code(s): E11.22 - Type 2 diabetes mellitus with diabetic chronic kidney disease; N18.5 - Chronic kidney disease, stage 5; Z79.4 - joint terminal attack controller (current) use of insulin (6) H/O: CVA (cerebrovascular accident): Assessment and Plan: Chronic Non-ambulatory/bedbound Mild L side residual, but unable to stand independently Mckenzie lift for transfers (7) Chronic indwelling Wooten catheter: Assessment and Plan: Chronic Maintain chronic indwelling Wooten catheter Urine clear, w/o hematuria (8) Anemia in CKD (chronic kidney disease): Assessment and Plan: Chronic Pt pale, but denies dizziness/sob Hgb slightly below baseline today Darbepoetin injection due today, but pt did not bring it from home and no one is available to bring it in. Plan to take as soon as he is discharged. CBC daily Qualifiers: Chronic kidney disease stage: stage 5, not on chronic dialysis Qualified Code(s): N18.5 - Chronic kidney disease, stage 5; D63.1 - Anemia in chronic kidney disease (9) Hypothyroid: Assessment and Plan: Chronic Continue home levothyroxine Check TSH WNL Qualifiers: Hypothyroidism type: unspecified Qualified Code(s): E03.9 - Hypothyroidism, unspecified (10) CKD (chronic kidney disease) stage 5, GFR less than 15 ml/min: Assessment and Plan: Chronic Baseline CKD5, not currently on dialysis Follows outpatient with nephrology - defer to outpatient management Continue home calcitriol, Vit D3 supplement (11) CAD (coronary artery disease): Assessment and Plan: Chronic Continue home ASA, BB, and statin. Not on ACEi/ARB at baseline likely d/t end-stage CKD Qualifiers: Associated angina: without angina Coronary Disease-Associated Artery/Lesion type: [place] artery [place] vs. 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
--- NOTE | 2023-09-12 13:13 | SWNOTE1 ---
CONNIE attempted to see pt 2x late morning, but was sleeping. SW attempted again early afternoon, but pt voiced he needed repositioned and was tired. Sw helped adjust pillows and blanket and notified nursing to check on pt to re-adjust. SW to check back on patient later today. CONNIE to advise pt to check with [facility] in regards to [facility] shots in the home and extra care in the home since [facility] will not be coming in after 09/17/23.
--- NOTE | 2023-09-12 13:46 | SWNOTE1 ---
CONNIE printed off emails from today with Kim BRAY. CONNIE advised pt to talk to [facility] in regards to the shots. He voiced understanding. CONNIE also had pt sign a form that was requested by the [facility] in regards to transfer. At this time no [facility] beds available for transfer. Pt potentially will be dc tomorrow, home with HH and caregivers. CONNIE faxed form back to [facility].
[2023-09-12 14:03] LABS: Glucometer 165 mg/dL (74-106)
[2023-09-12] MEDS: ENSURE CLEAR 237 ML LIQUID PO ×2 (14:42→21:55)
--- NOTE | 2023-09-12 15:27 | CM.NOTE ---
Called Leticia from [facility] to verify she received fax for patient. Pt is not being discharged today.
--- NOTE | 2023-09-12 17:19 | DIETREC ---
Recommend change diet order to 2200 kcal CCD, Renal diet to meet pt's estimated energy needs d/t dx DM2 and CKD-Stage 5. Also recommend 30 mL PRO-stat BID to ensure adequate PRO intakes.
[2023-09-12] MEDS: CALCITRIOL 0.25 MCG CAPSULE PO (17:27)
[2023-09-12 17:35] LABS: Glucometer 121 mg/dL (74-106)
[2023-09-12] MEDS: TRAZODONE HCL 50 MG TABLET 100 MG PO (21:55)
[2023-09-12] MEDS: PROSTAT 15 GM PROTEIN/100 CAL 30 ML LIQUID PACKET PO (21:55)
[2023-09-12] MEDS: CARVEDILOL 12.5 MG TABLET PO (21:55)
[2023-09-12] MEDS: ATORVASTATIN CALCIUM 40 MG TABLET 80 MG PO (21:55)
[2023-09-12] MEDS: CITRIC ACID/SODIUM CITRATE 30 ML SOLUTION ORACIT SHOHL'S SOLN PO (21:55)
[2023-09-12 22:01] LABS: Glucometer 146 mg/dL (74-106)
[2023-09-13] VITALS: PULSE 81
[2023-09-13 02:00] VITALS: PULSE 82
[2023-09-13 04:00] VITALS: PULSE 79
[2023-09-13 04:55] LABS: Basophils Absolute Auto 0.1 10^3/uL (0.0-0.1); Basophils Percent Auto 0.8 % (0.2-2.0); Eosinophils Absolute Auto 0.4 10^3/uL (0.0-0.7); Eosinophils Percent Auto 5.2 % (0.9-7.0); Hematocrit 25.9 % (42.0-54.0); Hemoglobin 7.9 g/dL (14.0-18.0); Immature Granulocytes Abs Auto 0.09 10^3/uL (0.00-0.03); Immature Granulocytes Pct Auto 1.2 % (0.0-0.5); Lymphocytes Absolute Auto 0.8 10^3/uL (1.2-3.8); Lymphocytes Percent Auto 10.9 % (20.5-60.0); Mean Corpuscular HGB Conc 30.5 g/dL (29.9-35.2); Mean Corpuscular Hemoglobin 28.3 pg (25.9-34.0); Mean Corpuscular Volume 92.8 fL (80.0-94.0); Mean Platelet Volume 9.5 fL (9.5-13.5); Monocytes Absolute Auto 0.9 10^3/uL (0.3-0.8); Monocytes Percent Auto 11.4 % (1.7-12.0); Neutrophils Absolute Auto 5.5 10^3/uL (1.4-6.5); Neutrophils Percent Auto 70.5 % (43.0-75.0); Platelet Count 147 10^3/uL (150-450); Red Blood Count 2.79 10^6/uL (4.70-6.10); Red Cell Distribution Width 15.8 % (11.0-15.0); White Blood Count 7.7 10^3/uL (4.0-11.0)
[2023-09-13 05:11] LABS: Alanine Aminotransferase 46 U/L (16-63); Albumin Globulin Ratio 0.6; Alkaline Phosphatase 127 U/L (46-116); Anion Gap 13.8; Aspartate Amino Transferase 17 U/L (15-37); BUN Creatinine Ratio 13.8; Bilirubin Total 0.2 mg/dL (0.2-1.0); Carbon Dioxide 19.2 mmol/L (21.0-32.0); Chloride 109 mmol/L (98-107); Estimated GFR (African America 12 (>=60); Estimated GFR (Non-African Ame 10 (>=60); Globulin 3.4 g/dL; Glucose 130 mg/dL (74-106); Sodium 138 mmol/L (136-145); Total Protein 5.4 g/dL (6.4-8.2)
[2023-09-13 06:00] VITALS: BP 166/76; PULSE 82; TEMP 36.4; O2SAT 97
[2023-09-13] MEDS: VANCOMYCIN HCL 7,500 MG/150 ML BOTTLE 125 MG PO ×2 (06:00→11:06)
[2023-09-13] MEDS: LEVOTHYROXINE SODIUM 75 MCG TABLET PO (06:00)
[2023-09-13 07:53] VITALS: PULSE 81
[2023-09-13] MEDS: 0.9 % SODIUM CHLORIDE 1,000 ML 50 ML IV (09:03)
[2023-09-13] MEDS: POTASSIUM CITRATE 10 MEQ ER TABLET PO (09:03)
[2023-09-13] MEDS: CHOLECALCIFEROL (VITAMIN D3) 25 MCG/1,000 UNITS TABLET 50 MCG PO (09:03)
[2023-09-13] MEDS: MULTIVITAMIN TABLET 1 TAB PO (09:03)
[2023-09-13] MEDS: FINASTERIDE 5 MG TABLET PO (09:03)
[2023-09-13] MEDS: CETIRIZINE HCL 10 MG TABLET PO (09:03)
[2023-09-13] MEDS: OMEPRAZOLE 20 MG CAPSULE.DR PO (09:03)
[2023-09-13] MEDS: ASPIRIN 81 MG TABLET.DR PO (09:03)
[2023-09-13] MEDS: CARVEDILOL 12.5 MG TABLET PO (09:03)
[2023-09-13] MEDS: CLOBETASOL PROPIONATE 0.05% CREAM 15 GRAM TUBE 1 APPLIC TOPICAL (09:04)
[2023-09-13] MEDS: HEPARIN SODIUM (PORCINE) 5,000 UNIT/ML VIAL 5000 UNIT SUBQ (09:04)
[2023-09-13] MEDS: VENLAFAXINE HCL ER 37.5 MG CAPSULE PO (09:07)
[2023-09-13 09:53] VITALS: PULSE 84
--- NOTE | 2023-09-13 10:45 | PM.DS1 ---
DS: Providers Provider Date of admission: 09/11/23 09:40 Primary care physician: Non-Staff PhysicianMD Admitting clinician: Shaikh Arturo Attending physician on admission: Shaikh Arturo Attending physician on discharge: Shaikh Arturo Discharging clinician: Shaikh Arturo Anticipated date of discharge: 09/13/23 DS: Diagnosis Discharge Diagnosis (1) C. difficile colitis: (2) Dehydration: (3) At high risk for kidney injury: (4) Hyperglycemia: (5) T2DM (type 2 diabetes mellitus): Qualifiers: Diabetes mellitus halfway insulin use: with halfway use Diabetes mellitus complication status: with kidney complications Diabetes mellitus complication detail: with chronic kidney disease Chronic kidney disease stage: stage 5, not on chronic dialysis Qualified Code(s): E11.22 - Type 2 diabetes mellitus with diabetic chronic kidney disease; N18.5 - Chronic kidney disease, stage 5; Z79.4 - terminal manager (current) use of insulin (6) H/O: CVA (cerebrovascular accident): (7) Chronic indwelling Wooten catheter: (8) Anemia in CKD (chronic kidney disease): Qualifiers: Chronic kidney disease stage: stage 5, not on chronic dialysis Qualified Code(s): N18.5 - Chronic kidney disease, stage 5; D63.1 - Anemia in chronic kidney disease (9) Hypothyroid: Qualifiers: Hypothyroidism type: unspecified Qualified Code(s): E03.9 - Hypothyroidism, unspecified (10) CKD (chronic kidney disease) stage 5, GFR less than 15 ml/min: (11) CAD (coronary artery disease): Qualifiers: Coronary Disease-Associated Artery/Lesion type: [place] artery [place] vs. transplanted heart: [place] heart Associated angina: without angina Qualified Code(s): I25.10 - Atherosclerotic heart disease of [place] coronary artery without angina pectoris (12) Bedbound: (13) Psoriasiform eczema: DS: Summary Hospital Course Hospital Course: 73-year-old male with history of CKD stage V, was admitted for abdominal pain, nausea, diarrhea, poor oral intake for 7 days. His workup revealed C. difficile colitis likely from recent antibiotic use for UTI. Patient was treated with oral vancomycin, started on IV fluids. Patient slowly improved with resolution of GI symptoms. He is medically stable for discharge on oral vancomycin Status at Discharge Functional status at discharge: bed bound Overall status at discharge: patient is back to baseline Time Spent with Patient Time attestation: Total time spent providing and/or coordinating discharge services: Time spent: greater than 30 minutes Exam Constitutional Vital Signs, click to edit/add: Last Vital Signs Temp 97.6 F 09/13/23 06:00 Pulse 84 09/13/23 09:53 Resp 17 09/13/23 06:00 BP 166/76 H 09/13/23 06:00 Pulse Ox 97 09/13/23 06:00 O2 Del Method Room Air 09/13/23 06:00 Common normals: oriented x3 General appearance: cooperative Orientation/consciousness: Yes awake Respiratory Common normals: normal respiratory effort, no use of accessory muscles and clear to auscultation bilaterally Effort & inspection: able to speak in complete sentences Auscultation: diminished lung sounds (BLL) Cardio Common normals: regular rate, regular rhythm, S1 normal heart sound, S2 normal heart sound, no murmurs and peripheral pulses 2+ throughout GI Common normals: Normal to inspection, nondistended, normoactive bowel sounds present, soft to palpation and no hepatosplenomegaly Extremity Common normals: normal to inspection and no calf tenderness General: edema (1+ BLE); no clubbing and no cyanosis Neuro Common normals: oriented x3 and moves all extremities Psych Common normals: mental status grossly normal DS: Data Data Completed and Pending Labs on day of discharge: Labs from last 24 hours 09/13/23 09/12/23 09/12/23 04:44 21:59 17:29 WBC 7.7 RBC 2.79 L Hgb 7.9 L Hct 25.9 L MCV 92.8 MCH 28.3 MCHC 30.5 RDW 15.8 H Plt Count 147 L MPV 9.5 Neut % (Auto) 70.5 Lymph % (Auto) 10.9 L [place] % (Auto) 11.4 Eos % (Auto) 5.2 Baso % (Auto) 0.8 Neut # (Auto) 5.5 Lymph # (Auto) 0.8 L [place] # (Auto) 0.9 H Eos # (Auto) 0.4 Baso # (Auto) 0.1 Abs Immat Gran (auto) 0.09 H Imm/Tot Granulo (auto) 1.2 H Sodium 138 Potassium 4.0 Chloride 109 H Carbon Dioxide 19.2 L Anion Gap 13.8 BUN 78.0 H* Creatinine 5.67 H* Est GFR ( Amer) 12 L Est GFR (Non-Af Amer) 10 L BUN/Creatinine Ratio 13.8 Glucose 130 H Calcium 9.0 Total Bilirubin 0.2 AST 17 ALT 46 Alkaline Phosphatase 127 H Total Protein 5.4 L Albumin 2.0 L Globulin 3.4 Albumin/Globulin Ratio 0.6 POC Glucose 146 H 121 H 09/12/23 14:02 WBC RBC Hgb Hct MCV MCH MCHC RDW Plt Count MPV Neut % (Auto) Lymph % (Auto) [place] % (Auto) Eos % (Auto) Baso % (Auto) Neut # (Auto) Lymph # (Auto) [place] # (Auto) Eos # (Auto) Baso # (Auto) Abs Immat Gran (auto) Imm/Tot Granulo (auto) Sodium Potassium Chloride Carbon Dioxide Anion Gap BUN Creatinine Est GFR ( Amer) Est GFR (Non-Af Amer) BUN/Creatinine Ratio Glucose Calcium Total Bilirubin AST ALT Alkaline Phosphatase Total Protein Albumin Globulin Albumin/Globulin Ratio POC Glucose 165 H Discharge Plan Discharge Disposition: Home, Self-Care Condition: Good Discharge Medications: New vancomycin 125 mg capsule 125 mg PO Q6H 10 Days Qty: 40 0RF Continued triamcinolone acetonide 0.1 % ointment 1 applic topical BID [place] Saline 0.65 % aerosol,spray 2 spray intranasal QID PRN (Reason: dry nasal passages) ixekizumab 80 mg/mL syringe See Rx Instructions subcut .COMPLEX Rx Instructions: subcutaneously 160MG SQ ONCE, THEN 80MG SQ EVERY 2 WEEKS; clobetasol 0.05 % cream 1 applic topical BID Rx Instructions: TO UPPER ARM NODULES PER [facility] nitroglycerin 0.4 mg tablet, sublingual 0.4 mg sublingual Q5M PRN (Reason: chest pain) Rx Instructions: do not exceed 3 doses per episode bacitracin zinc 500 unit/gram ointment 1 applic topical DAILY PRN (Reason: skin irritation) trazodone 100 mg tablet 100 mg PO .QHS venlafaxine 37.5 mg capsule,extended release 24hr 37.5 mg PO DAILY loratadine [Allergy Relief (loratadine)] 10 mg tablet 10 mg PO .QOD Rx Instructions: QOD PER [facility] atorvastatin 80 mg tablet 80 mg PO .QHS darifenacin 15 mg tablet extended release 24 hr 15 mg PO DAILY [employer] W[employer] Dressing Paste 1 applic topical .COMPLEX Rx Instructions: 1 applic topically TWICE A WEEK ON FRIDAY AND FRIDAY; carvedilol 12.5 mg tablet 12.5 mg PO BID Rx Instructions: must administer with a meal/food darbepoetin danielle in polysorbat 100 mcg/mL solution 100 mcg subcut QWEEK albuterol 90 mcg/actuation aerosol 180 mcg inhalation QID PRN (Reason: shortness of breath or wheezing) Rx Instructions: 2 PUFFS QID PRN PER [facility] calcitriol 0.25 mcg capsule 0.25 mcg PO .3 TIMES WEEK Rx Instructions: FRIDAY, FRIDAY AND FRIDAY PER [facility] potassium citrate-citric acid 1,100-334 mg/5 mL solution 30 ml PO DAILY zinc oxide 20 % ointment 1 applic topical DAILY PRN (Reason: skin irritation) hydrophilic cream Cream 1 applic topical BID miconazole nitrate [Remedy Phytoplex Antifungal] 2 % powder 1 applic topical DAILY PRN (Reason: fungal) omeprazole 20 mg tablet,delayed release (DR/EC) 20 mg PO DAILY melatonin 3 mg tablet 3 mg PO .QHS PRN (Reason: sleep) finasteride 5 mg tablet 5 mg PO DAILY polyethylene glycol 3350 [Miralax] 17 gram/dose powder 17 g PO DAILY PRN (Reason: constipation) Ozempic 2 mg/dose (8 mg/3 mL) pen injector 0.5 mg subcut QWEEK ferrous sulfate 325 mg (65 mg iron) tablet,delayed release (DR/EC) 325 mg PO .QOD Rx Instructions: EVERY OTHER DAY PER [facility] AsperFlex (lidocaine HCl) 4 % ointment 1 ea topical TID PRN (Reason: pain) lidocaine HCl 2 % gel 1 applic topical DAILY PRN (Reason: pain) Patient Comments: urethral pain pramoxine 1 % lotion 1 applic topical TID PRN (Reason: itching) acetaminophen [Tylenol] 325 mg capsule 975 mg PO TID PRN (Reason: fever or pain) aspirin [Adult Low Dose Aspirin] 81 mg tablet,delayed release (DR/EC) 81 mg PO DAILY guaifenesin 600 mg tablet extended release 12hr 600 mg PO BID PRN (Reason: congestion) sennosides 8.6 mg capsule 8.6 mg PO DAILY PRN (Reason: constipation) levothyroxine 75 mcg capsule 75 mcg PO QAM cholecalciferol (vitamin D3) 50 mcg (2,000 unit) capsule 2,000 unit PO DAILY multivitamin Tablet 1 tab PO DAILY Rx Instructions: WITH MINERALS, NO VITAMIN K PER [facility] Activity: resume usual activities as tolerated Diet: advance to your usual diet Print Language: Georgian Patient Instructions: C. 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
[2023-09-13 10:58] LABS: Glucometer 129 mg/dL (74-106)
--- NOTE | 2023-09-15 15:41 | CM.DCFOLLOWU ---
09/14- 1st attempt. No answer
--- NOTE | 2023-09-18 15:02 | CM.DCFOLLOWU ---
2nd attempt 09/18/23, no answer
== END 2023-09-13 13:32 | disposition home or self-care (01) | DRG 372 ==
LOC: ER 09-11 02:37 → MS 09-11 02:44
PROVIDERS: Nurse Practitioner; Registered Nurse; Admitting Provider Family Medicine; Emergency Provider Emergency Medicine; Visit Provider Family Medicine
DX: A04.72 Enterocolitis due to Clostridium difficile, not specified as recurrent (principal); I69.354 Hemiplegia and hemiparesis following cerebral infarction affecting left non-dominant side; N18.5 Chronic kidney disease, stage 5; E86.0 Dehydration; E11.65 Type 2 diabetes mellitus with hyperglycemia; E11.22 Type 2 diabetes mellitus with diabetic chronic kidney disease; D63.1 Anemia in chronic kidney disease; E03.9 Hypothyroidism, unspecified; I25.10 Atherosclerotic heart disease of native coronary artery without angina pectoris; L30.8 Other specified dermatitis; Z87.440 Personal history of urinary (tract) infections; Z96.0 Presence of urogenital implants; Z79.4 Long term (current) use of insulin; Z74.01 Bed confinement status; Z79.899 Other long term (current) drug therapy; Z79.890 Hormone replacement therapy; Z87.891 Personal history of nicotine dependence; Z95.5 Presence of coronary angioplasty implant and graft
CPT/HCPCS: 36415; 74176; 80053; 82948; 83036; 83605; 83735; 84443; 85025; 85027; 87493; 87507; 93005; 96360; 96361; 96372; 99285

== ENCOUNTER 2023-09-25 15:36 | Emergency (ER) | payer OTHER, SELFPAY ==
[2023-09-25 15:39] VITALS: BP 118/78; PULSE 80; TEMP 36.7; O2SAT 99; BMI 39.9
--- NOTE | 2023-09-25 15:46 | CT_ITS ---
The [address] [address] Patient Name: MATT HONEYCUTT MRN: [id number] date: 1950 Sex: M Assigned Patient Location: ER Current Patient Location: ER Accession/Order Number: [id number] Exam Date: 09/25/2023 16:05 Report Date: 09/25/2023 17:08 At the request of: JUAN GERONIMO Procedure: CT head/brain wo con CT head/brain wo con, CT cervical spine wo con, 09/25/2023 4:05 PM EDT INDICATION: fall, injury COMPARISON: Prior CT of the head dated 01/26/2019 TECHNIQUE: Axial images of 3 mm are obtained from the base of the skull to vertex completed with Axial images of 2 mm are obtained from base of skull to T2 without contrast. Dose reduction techniques were achieved by using automated exposure control and/or adjustment of mA and/or kV according to patient size and/or use of iterative reconstruction technique. FINDINGS: The cerebral and cerebellar sulci as well as ventricular system are appropriate for age. 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 There is no intracranial mass, mass effect, midline shift, intra or extra-axial fluid collection. No acute territorial infarction or hemorrhage is noted. Periventricular and centrum semiovale hypodensities are most likely consistent with microvascular ischemic changes. There is mucosal thickening within the left maxillary sinus. The visualized portions of orbits, mastoid air cells as well as remainder of paranasal sinuses are unremarkable. There is status post bilateral lens replacement. There is no suspicious osteolytic or osteoblastic lesion. No acute fracture or dislocation is noted. Multilevel degenerative changes of cervical spine are noted. Anterior flowing osteophytes in cervical spine may suggest diffuse idiopathic skeletal hyperostosis. CT/CT head/brain wo con IMPRESSION: No acute intracranial process is identified. No acute fracture. Electronically authenticated by: HARISH REYNOSO Date: 09/25/2023 17:08
--- NOTE | 2023-09-25 15:46 | CT_ITS ---
The [address] [address] Patient Name: MATT HONEYCUTT MRN: [id number] date: 1950 Sex: M Assigned Patient Location: ER Current Patient Location: ER Accession/Order Number: [id number] Exam Date: 09/25/2023 16:05 Report Date: 09/25/2023 17:08 At the request of: JUAN GERONIMO Procedure: CT cervical spine wo con CT head/brain wo con, CT cervical spine wo con, 09/25/2023 4:05 PM EDT INDICATION: fall, injury COMPARISON: Prior CT of the head dated 01/26/2019 TECHNIQUE: Axial images of 3 mm are obtained from the base of the skull to vertex completed with Axial images of 2 mm are obtained from base of skull to T2 without contrast. Dose reduction techniques were achieved by using automated exposure control and/or adjustment of mA and/or kV according to patient size and/or use of iterative reconstruction technique. FINDINGS: The cerebral and cerebellar sulci as well as ventricular system are appropriate for age. 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 There is no intracranial mass, mass effect, midline shift, intra or extra-axial fluid collection. No acute territorial infarction or hemorrhage is noted. Periventricular and centrum semiovale hypodensities are most likely consistent with microvascular ischemic changes. There is mucosal thickening within the left maxillary sinus. The visualized portions of orbits, mastoid air cells as well as remainder of paranasal sinuses are unremarkable. There is status post bilateral lens replacement. There is no suspicious osteolytic or osteoblastic lesion. No acute fracture or dislocation is noted. Multilevel degenerative changes of cervical spine are noted. Anterior flowing osteophytes in cervical spine may suggest diffuse idiopathic skeletal hyperostosis. CT/CT cervical spine wo con IMPRESSION: No acute intracranial process is identified. No acute fracture. Electronically authenticated by: HARISH REYNOSO Date: 09/25/2023 17:08
--- NOTE | 2023-09-25 15:47 | CT_ITS ---
The [address] [address] Patient Name: MATT HONEYCUTT MRN: [id number] date: 1950 Sex: M Assigned Patient Location: ER Current Patient Location: ED.MAIN Accession/Order Number: [id number] Exam Date: 09/25/2023 16:05 Report Date: 09/25/2023 17:16 At the request of: JUAN GERONIMO Procedure: CT lumbar spine wo con CT thoracic spine wo con, CT lumbar spine wo con, 09/25/2023 4:05 PM EDT INDICATION: pain, fall COMPARISON: There is no appropriate prior study for comparison. TECHNIQUE: Axial images of 2 mm are obtained from thoracic and lumbar spine with sagittal and coronal reconstruction withoutcontrast. Dose reduction techniques were achieved by using automated exposure control and/or adjustment of mA and/or kV according to patient size and/or use of iterative reconstruction technique. FINDINGS: There is normal physiologic thoracic kyphosis and lumbar lordosis. There is diffuse demineralization of bone. Flowing osteophytes in the thoracic spine suggesting of diffuse idiopathic skeletal hyperostosis. No acute fracture or dislocation is noted. The vertebral heights are preserved. There is 1-2 anterolisthesis of L5 on S1. Lower lumbar spine and SI joints degenerative changes are noted. Multilevel degenerative changes throughout thoracic and lumbar spine. 2.3 cm nodule in the right lobe of thyroid is noted. Bilateral fat-containing adenomas within the adrenal glands are noted. Bilateral nonobstructing nephrolithiasis are noted as well as double-J catheters within the urinary bladder and bilateral renal pelvis. CT/CT lumbar spine wo con Impression: No acute finding. Large thyroid nodule. An ultrasound is recommended for further evaluation. Electronically authenticated by: HARISH REYNOSO Date: 09/25/2023 17:16
--- NOTE | 2023-09-25 15:47 | CT_ITS ---
The [address] [address] Patient Name: MATT HONEYCUTT MRN: [id number] date: 1950 Sex: M Assigned Patient Location: ER Current Patient Location: ED.MAIN Accession/Order Number: [id number] Exam Date: 09/25/2023 16:05 Report Date: 09/25/2023 17:16 At the request of: JUAN GERONIMO Procedure: CT thoracic spine wo con CT thoracic spine wo con, CT lumbar spine wo con, 09/25/2023 4:05 PM EDT INDICATION: pain, fall COMPARISON: There is no appropriate prior study for comparison. TECHNIQUE: Axial images of 2 mm are obtained from thoracic and lumbar spine with sagittal and coronal reconstruction withoutcontrast. Dose reduction techniques were achieved by using automated exposure control and/or adjustment of mA and/or kV according to patient size and/or use of iterative reconstruction technique. FINDINGS: There is normal physiologic thoracic kyphosis and lumbar lordosis. There is diffuse demineralization of bone. Flowing osteophytes in the thoracic spine suggesting of diffuse idiopathic skeletal hyperostosis. No acute fracture or dislocation is noted. The vertebral heights are preserved. There is 1-2 anterolisthesis of L5 on S1. Lower lumbar spine and SI joints degenerative changes are noted. Multilevel degenerative changes throughout thoracic and lumbar spine. 2.3 cm nodule in the right lobe of thyroid is noted. Bilateral fat-containing adenomas within the adrenal glands are noted. Bilateral nonobstructing nephrolithiasis are noted as well as double-J catheters within the urinary bladder and bilateral renal pelvis. CT/CT thoracic spine wo con Impression: No acute finding. Large thyroid nodule. An ultrasound is recommended for further evaluation. Electronically authenticated by: HARISH REYNOSO Date: 09/25/2023 17:16
--- NOTE | 2023-09-25 15:48 | XR_ITS ---
The [address] [address] Patient Name: MATT HONEYCUTT MRN: [id number] date: 1950 Sex: M Assigned Patient Location: ER Current Patient Location: ER Accession/Order Number: [id number] Exam Date: 09/25/2023 16:05 Report Date: 09/25/2023 17:54 At the request of: JUAN GERONIMO Procedure: XR shoulder LT min 2V EXAM: XR shoulder LT min 2V HISTORY: The patient is a 73-year-old male, pain, fall COMPARISON: None. FINDINGS: No fractures or dislocations are seen within or around the left shoulder. There is osteoarthritic narrowing of the acromioclavicular joint which is otherwise anatomically aligned. Osteophytes arise from the inferior humeral head, suggesting there is osteoarthritic narrowing of the glenohumeral joint, although the glenohumeral joint is not well profiled on the supplied views. The subacromial space is maintained. XR/XR shoulder LT min 2V IMPRESSION: No radiographic findings of acute trauma of the left shoulder. Electronically authenticated by: YUSUF MELO Date: 09/25/2023 17:54
--- NOTE | 2023-09-25 15:48 | XR_ITS ---
The [address] [address] Patient Name: MATT HONEYCUTT MRN: [id number] date: 1950 Sex: M Assigned Patient Location: ER Current Patient Location: ER Accession/Order Number: [id number] Exam Date: 09/25/2023 16:05 Report Date: 09/25/2023 17:53 At the request of: JUAN GERONIMO Procedure: XR knee LT 3V EXAM: XR knee LT 3V HISTORY: The patient is a 73-year-old male, pain ,fall COMPARISON: None. XR/XR knee LT 3V IMPRESSION: No fractures or dislocations are seen within or around the left knee. There is moderate to severe osteoarthritic narrowing of the medial compartment. Electronically authenticated by: YUSUF MELO Date: 09/25/2023 17:53
--- OUTSIDE RECORDS SUMMARY | 2023-09-25 15:54 | XMS_ITS | CCD ---
Author Organization [facility] Care Team Providers Care Learning Consultant Name Role Phone Unavailable Primary Care Provider [...] (antibiotic) (1 source) Penicillins Drug Allergy 02-06-20 [facility] (1 source) Penicillins Propensity to adverse reactions to drug 02-06-20 [place] (2 sources) Penicillin; Translations: [penicillin] Drug Allergy [facility] (2 sources) Sulfamethoxazole / Trimethoprim; Translations: [Bactrim] Drug Allergy [facility] (1 source) No Known Medication Allergies; Translations: [No Known Medication Allergies] Propensity to adverse reactions (disorder) [facility] (3 sources) Penicillin G Drug Allergy Unknown [facility] Other (3 sources) Sulfamethoxazole / Trimethoprim Drug Allergy Unknown [facility] Other (1 source) Penicillins Drug allergy (disorder) 08-31-19 [facility] (1 source) Sulfamethoxazole Drug Allergy 08-31-19 [facility] (1 source) Trimethoprim Drug Allergy 08-31-19 [facility] Medications Current Medications Medication Drug [...] mouth every morning (before breakfast) 0 Active [id number] 200 actuat albuterol 0.09 mg/actuat metered dose [...] Once a day Active polyethylene glycol 3350 16062 mg powder for oral solution (3 sources) [...] disease (2 sources) Atherosclerotic heart disease of [place] coronary artery without angina pectoris; Translations: [Chronic [...] Onset: 2 Chronic Other aftercare (1 source) [facility] (current) use of aspirin; Translations: [[facility] CURRENT USE OF ASPIRIN] Onset: 3 Episodic Other aftercare (1 source) Other 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 [address] Pot Feeder: Rao Espinosa MD UA w/Reflex Cultureon 2022 Bilirubin, SemiQt,Ur Negative Normal NEG [facility] Comment on above: Performed By: #### U MICAO, UAX #### [facility] [address] [place] [address] [place] [address] Pot Feeder: Rao Espinosa MD Blood, Urine 2+ Abnormal NEG [facility] Comment on above: Performed By: #### U MICAO, UAX #### [facility] [address] [place] [address] Pot Feeder: Rao Espinosa MD Clarity (U) Cloudy Abnormal CLEAR [facility] Comment on above: Performed By: #### U MICAO, UAX #### [facility] [address] [place], [place] [phone] Pot Feeder: Rao Espinosa MD Color (U) Yellow Normal YEL [facility] Comment on above: Performed By: #### U MICAO, UAX #### [facility] [address] [place], [place] [id number] Pot Feeder: Rao Espinosa MD Glucose Ql (U) TRACE Abnormal NEG [facility] in Hospital Comment on above: Performed By: #### U MICAO, UAX #### [facility] [address] [place] [address] [place] [place], [place] [id number] Pot Feeder: Rao Espinosa MD Ketones Ql (U) Negative Normal NEG [facility] Comment on above: Performed By: #### U MICAO, UAX #### [facility] [address] [place] [address] [place], [place] [id number] Pot Feeder: Rao Espinosa MD Leukocyte esterase Test strip Ql (U) LARGE Abnormal NEG [facility] Comment on above: Performed By: #### U MICAO, UAX #### [facility] [address] [place] [address] [place], [place] [phone] Pot Feeder: Rao Espinosa MD Nitrite,Ur Positive Abnormal NEG [facility] Comment on above: Performed By: #### U MICAO, UAX #### [facility] [address] [place], [place] [id number] Pot Feeder: Rao Espinosa MD PH,Ur 7.0 Normal 5.0-9.0 [facility] Comment on above: Performed By: #### U MICAO, UAX #### [facility] [address] [place] [address] [place], [place] [phone] Pot Feeder: Rao Espinosa MD Protein Ql (U) 1+ mg/dL Abnormal NEG [facility] Comment on above: Performed By: #### U MICAO, UAX #### [facility] [address] [place], [place] [id number] Pot Feeder: Rao Espinosa MD Spec. [place],Ur 1.010 Normal 1.010-1.020 [facility] Comment on above: Performed By: #### U MICAO, UAX #### [facility] [address] [place], [place] [id number] Pot Feeder: Rao Espinosa MD Urobilinogen,Ur Normal Normal 0.0-1.0 [facility] Comment on above: Performed By: #### U MICAO, UAX #### [facility] [address] [place], [place] [phone] Pot Feeder: Rao Espinosa MD Urinalysis,Microon 3 Bacteria 3+ Abnormal NONE [facility] Comment on above: Performed By: #### U MICAO, UAX #### [facility] [address] [place], [place] [phone] Pot Feeder: Rao Espinosa MD Epithelial cells LM Ql (Urine sed) 0 TO 2 Normal 0-5 [facility] Comment on above: Performed By: #### U MICAO, UAX #### [facility] [address] [place] [address] [place], [place] [phone] Pot Feeder: Rao Espinosa MD Urine RBC's 5 TO 10 Normal 0-2 [facility] Comment on above: Performed By: #### U MICAO, UAX #### [facility] [address] [place], [place] [phone] Pot Feeder: Rao Espinosa MD Urine WBC's GREATER THAN 100 Normal 0-5 [facility] Comment on above: Performed By: #### U MICAO, UAX #### [facility] [address] [place], [place] [id number] Pot Feeder: Rao Espinosa MD Glucose Poct Glucometerson 0 09-04-2022 Glucose [Mass/Vol] 122 mg/dL Normal [facility] Comment on above: Result Comment: [facility] Glucose Reference Range is dependent on time and content of last meal. Glucose of more than 200 mg/dL in a nonstressed, ambulatory subject supports the diagnosis of Diabetes Mellitus. PERFORMED BY: [facility] [address] [place] [address] PATHOLOGIST BENCH HAND BRANDEN WHATLEY M.D. Performed By: #### G LULS #### Point of Care testing , Renal Function Panelon 09-04 Albumin [Mass/Vol] 2.4 g/dL Low 3.5-5.7 [facility] Comment on above: Performed By: #### G LULS #### Point of Care testing , Anion gap [Moles/Vol] 14.8 mmol/L Normal 6.0-15.0 [facility] Comment on above: Performed By: #### G LULS #### Point of Care testing , Calcium [Mass/Vol] 8.6 mg/dL Normal 8.6-10.3 [facility] Comment on above: Performed By: #### G LULS #### Point of Care testing , Chloride [Moles/Vol] 99 mmol/L Normal 98-107 [facility] Comment on above: Performed By: #### G LULS #### Point of Care testing , CO2 [Moles/Vol] 24.7 mmol/L Normal 21.0-31.0 [facility] Comment on above: Performed By: #### G LULS #### Point of Care testing , Creatinine [Mass/Vol] 6.52 mg/dL Significan t change up 0.70-1.30 [facility] Comment on above: Performed By: #### G LULS #### Point of Care testing , Creatinine Clr Calc Pharmacy 16.01 Normal [facility] Comment on above: Result Comment: PERF ORMED BY: [facility] [address] [place] [address] PATHOLOGIST BENCH HAND BRANDEN WHATLEY M.D. Performed By: #### G LULS #### Point of Care testing , GFR/1.73 sq M.predicted MDRD (S/P/Bld) [Vol rate/Area] 8.483 mL/min/{1.73_m2} Normal [facility] Comment on above: Performed By: #### G LULS #### Point of Care testing , Glucose [Mass/Vol] 115 mg/dL High 70-100 [facility] Comment on above: Result Comment: [place] Glucose Reference Range is dependent on time and content of last meal. Glucose of more than 200 mg/dL in a nonstressed, ambulatory subject supports the diagnosis of Diabetes Mellitus. ADA recommended reference range Performed By: #### G LULS #### Point of Care testing , Phosphate [Mass/Vol] 6.4 mg/dL Normal 3.7-7.2 [facility] Comment on above: Performed By: #### G LULS #### Point of Care testing , Potassium [Moles/Vol] 4.5 mmol/L Normal 3.5-5.1 [facility] Comment on above: Performed By: #### G LULS #### Point of Care testing , Sodium [Moles/Vol] 134 mmol/L Low 136-145 [facility] Comment on above: Performed By: #### G LULS #### Point of Care testing , Urea nitrogen [Mass/Vol] 76 mg/dL High 7-25 [facility] Comment on above: Performed By: #### G LULS #### Point of Care testing , [facility] SARS-CoV-2 (COVID-19) RNA JASON+probe Ql (Unsp spec) Negative Normal Negative [facility] Comment on above: Order Comment: Healt hcare Worker?: N Result Comment: Testing for SARS-CoV-2 by RT-PCR This test was developed and its performance characteristics determined by [employer] and validated at the [facility]. This test has not been FDA [...] is terminated or revoked sooner. PERFORMED BY: [place] [address] PATHOLOGIST BENCH HAND BRANDEN WHATLEY M.D. Performed By: #### F E and TIBC, [id number], ODALIS #### [address] Glucose Poct Glucometerson 0 09-03-2022 Glucose [Mass/Vol] 152 mg/dL Normal [facility] Comment on above: Result Comment: [facility] Glucose Reference Range is dependent on time and content of last meal. Glucose of more than 200 mg/dL in a nonstressed, ambulatory subject supports the diagnosis of Diabetes Mellitus. PERFORMED BY: [place] [address] PATHOLOGIST BENCH HAND BRANDEN WHATLEY M.D. Performed By: #### G LULS #### Point of Care testing , Glucose [Mass/Vol] 111 mg/dL Normal [facility] Comment on above: Result Comment: [facility] Glucose Reference Range is dependent on time and content of last meal. Glucose of more than 200 mg/dL in a nonstressed, ambulatory subject supports the diagnosis of Diabetes Mellitus. PERFORMED BY: [place] [address] PATHOLOGIST BENCH HAND BRANDEN WHATLEY M.D. Performed By: #### G LULS #### Point of Care testing , Glucose [Mass/Vol] 106 mg/dL Normal [facility] Comment on above: Result Comment: [facility] Glucose Reference Range is dependent on time and content of last meal. Glucose of more than 200 mg/dL in a nonstressed, ambulatory subject supports the diagnosis of Diabetes Mellitus. PERFORMED BY: [facility] [address] [place] [address] PATHOLOGIST BENCH HAND BRANDEN WHATLEY M.D. Performed By: #### G LULS #### Point of Care testing , Glucose [Mass/Vol] 140 mg/dL Normal [facility] Comment on above: Result Comment: [facility] Glucose Reference Range is dependent on time and content of last meal. Glucose of more than 200 mg/dL in a nonstressed, ambulatory subject supports the diagnosis of Diabetes Mellitus. PERFORMED BY: [facility] [address] [place] [address] PATHOLOGIST BENCH HAND BRANDEN WHATLEY M.D. Performed By: #### G LULS #### Point of Care testing , Hemogram CBC Without Diffon 09-03-2022 Erythrocyte distribution width (RBC) [Ratio] 14.9 % High 12.0-14.8 [facility] Comment on above: Performed By: #### G LULS #### Point of Care testing , Hematocrit (Bld) [Volume fraction] 25.1 % Low 38.8-50.0 [facility] Comment on above: Performed By: #### G LULS #### Point of Care testing , Hemoglobin (Bld) [Mass/Vol] 8.4 g/dL Low 13.0-17.0 [facility] Comment on above: Performed By: #### G LULS #### Point of Care testing , MCH (RBC) [Entitic mass] 29.5 pg Normal 27.5-35.2 [facility] Comment on above: Performed By: #### G LULS #### Point of Care testing , MCV (RBC) [Entitic vol] 87.8 fL Normal 83.5-101 [facility] Comment on above: Performed By: #### G LULS #### Point of Care testing , Mean Corpuscular HGB Conc 33.5 g/dL Normal 32.5-35.6 [facility] Comment on above: Performed By: #### G LULS #### Point of Care testing , Platelet mean volume (Bld) [Entitic vol] 8.0 fL Normal 6.6-10.1 [facility] Comment on above: Result Comment: PERF ORMED BY: [place] [address] PATHOLOGIST BENCH HAND BRANDEN WHATLEY M.D. Performed By: #### G LULS #### Point of Care testing , Platelets (Bld) [#/Vol] 111 10*3/uL Significant change down 150-450 [facility] Comment on above: Performed By: #### G LULS #### Point of Care testing , RBC (Bld) [#/Vol] 2.86 10*6/uL Low 3.90-5.60 [facility] Comment on above: Performed By: #### G LULS #### Point of Care testing , WBC (Bld) [#/Vol] 8.1 10*3/uL Normal 4.1-10.5 [facility] Comment on above: Performed By: #### G LULS #### Point of Care testing , Hepatitis Acute Panelon 08-13 HBsAg Screen Negative Normal Negative [facility] Comment on above: Order Comment: pt no t in room Performed By: #### F E and TIBC, [id number], ODALIS #### [facility] [address] [place] [address] Hepatitis A Antibody IgM Negative Normal Negative [facility] Comment on above: Order Comment: pt no t in room Performed By: #### F E and TIBC, [id number], ODALIS #### [facility] [address] [place] [address] Hepatitis B Core Antibody IgM Negative Normal Negative [facility] Comment on above: Order Comment: pt no t in room Result Comment: Ve rified by repeat analysis Performed By: #### F E and TIBC, [id number], ODALIS #### [address] Hepatitis C Virus Antibody Non-Reactive Normal Non Reactive [facility] Comment on above: Order Comment: pt no t in room Performed By: #### F E and TIBC, [id number], ODALIS #### [address] Interpretation Hepatitis C Normal . [facility] Comment on above: Order Comment: pt no t in room Result Comment: Not infected with HCV unless early or acute infection is suspected (which may be delayed in an immunocompromised individual), or other evidence exists to indicate HCV infection. Performed By: #### F E and TIBC, [id number], ODALIS #### [address] Hepatitis B Core Antibodyon 09-03-2022 Hepatitis B Core Antibody Negative Normal Negative [facility] Comment on above: Order Comment: pt no t in room Result Comment: Perf ormed at: - [facility] [address] [id number] Pot Feeder: Mata Pérez PhD, Phone: [phone] PERFORMED BY: [place] [address] PATHOLOGIST BENCH HAND BRANDEN WHATLEY M.D. Performed By: #### F E and TIBC, [id number], ODALIS #### [address] Hepatitis B Surface Antibody on 09-03-2022 Hepatitis B Surface Antibody Reactive Normal . [facility] Comment on above: Order Comment: pt no t in room Result Comment: Non Reactive: Inconsistent with immunity, less than 10 mIU/mL Reactive: Consistent with immunity, greater than 9.9 mIU/mL Performed By: #### F E and TIBC, [id number], ODALIS #### [address] Renal Function Panelon 09-03 Albumin [Mass/Vol] 2.4 g/dL Low 3.5-5.7 [facility] Comment on above: Performed By: #### G LULS #### Point of Care testing , Anion gap [Moles/Vol] 16.5 mmol/L High 6.0-15.0 [facility] Comment on above: Performed By: #### G LULS #### Point of Care testing , Calcium [Mass/Vol] 8.7 mg/dL Normal 8.6-10.3 [facility] Comment on above: Performed By: #### G LULS #### Point of Care testing , Chloride [Moles/Vol] 101 mmol/L Normal 98-107 [facility] Comment on above: Performed By: #### G LULS #### Point of Care testing , CO2 [Moles/Vol] 22.4 mmol/L Normal 21.0-31.0 [facility] Comment on above: Performed By: #### G LULS #### Point of Care testing , Creatinine [Mass/Vol] 8.19 mg/dL Significan t change up 0.70-1.30 [facility] Comment on above: Performed By: #### G LULS #### Point of Care testing , Creatinine Clr Calc Pharmacy 12.70 [facility] Comment on above: Result Comment: PERF ORMED BY: [facility] [address] [address] PATHOLOGIST BENCH HAND BRANDEN WHATLEY M.D. Performed By: #### G LULS #### Point of Care testing , GFR/1.73 sq M.predicted MDRD (S/P/Bld) [Vol rate/Area] 6.452 mL/min/{1.73_m2} [facility] Comment on above: Performed By: #### G LULS #### Point of Care testing , Glucose [Mass/Vol] 112 mg/dL High 70-100 [facility] Comment on above: Result Comment: [place] Glucose Reference Range is dependent on time and content of last meal. Glucose of more than 200 mg/dL in a nonstressed, ambulatory subject supports the diagnosis of Diabetes Mellitus. ADA recommended reference range Performed By: #### G LULS #### Point of Care testing , Phosphate [Mass/Vol] 6.7 mg/dL Normal 3.7-7.2 [facility] Comment on above: Performed By: #### G LULS #### Point of Care testing , Potassium [Moles/Vol] 4.9 mmol/L Normal 3.5-5.1 [facility] Comment on above: Performed By: #### G LULS #### Point of Care testing , Sodium [Moles/Vol] 135 mmol/L Low 136-145 [facility] Comment on above: Performed By: #### G LULS #### Point of Care testing , Urea nitrogen [Mass/Vol] 99 mg/dL High 7-25 [facility] Comment on above: Performed By: #### G LULS #### Point of Care testing , Stool Occult Blood (Immuno)o n 09-03-2022 Stool Occult Blood (Immuno) Occult Blood (Immuno) Positive for Occult Blood by Immunochemical Methodology Reference range = Negative PERFORMED BY: [place] [address] PATHOLOGIST BENCH HAND BRANDEN WHATLEY M.D. [facility] Comment on above: Performed By: #### G LULS #### Point of Care testing , XR chest 1V portableon 09-03 XR chest 1V portable [facility] [place] [address] XRay Report Signed Patient: Matt Kelly MR#: [id number] : 1950 Acct:[id number] Age/Sex: 71 / M ADM Date: 08/30/22 Loc: Room: [address] [place] [address] Type: ADM IN Attending Dr: Eldon López [...] Rafi Morales M.D.09/03/2022 3:02 PM Dictation Location: [place] [address] Transcribed By: [facility] 09/03/22 1502 Dictated By: Rafi Morales II, MD 09/03/22 1501 Signed By: 09/03/22 1502 Normal [facility] Complete Blood Count Auto Di ffon 09-02-2022 Basophils (Bld) [#/Vol] 0.1 10*3/uL Normal 0.0-0.2 [facility] Comment on above: Result Comment: PERF ORMED BY: [facility] [address] [facility] [place] [address] PATHOLOGIST BENCH HAND BRANDEN WHATLEY M.D. Performed By: #### G LULS #### Point of Care testing , Basophils/100 WBC (Bld) 0.4 % Normal . [facility] Comment on above: Performed By: #### G LULS #### Point of Care testing , Eosinophils (Bld) [#/Vol] 0.1 10*3/uL Normal 0.0-0.45 [facility] Comment on above: Performed By: #### G LULS #### Point of Care testing , Eosinophils/100 WBC (Bld) 0.5 % Normal . [facility] Comment on above: Performed By: #### G LULS #### Point of Care testing , Erythrocyte distribution width (RBC) [Ratio] 14.8 % Normal 12.0-14.8 [facility] Comment on above: Performed By: #### G LULS #### Point of Care testing , Hematocrit (Bld) [Volume fraction] 26.7 % Low 38.8-50.0 [facility] Comment on above: Performed By: #### Young FRANK #### Point of Care testing , Hemoglobin (Bld) [Mass/Vol] 8.7 g/dL Low 13.0-17.0 [facility] Comment on above: Performed By: #### Young FRANK #### Point of Care testing , Lymphocytes (Bld) [#/Vol] 0.6 10*3/uL Low 1.00-4.8 [facility] Comment on above: Performed By: #### Young FRANK #### Point of Care testing , Lymphocytes/100 WBC (Bld) 3.6 % Normal . [facility] Comment on above: Performed By: #### Young FRANK #### Point of Care testing , MCH (RBC) [Entitic mass] 28.6 pg Normal 27.5-35.2 [facility] Comment on above: Performed By: #### Young RICHARDSLS #### Point of Care testing , MCV (RBC) [Entitic vol] 87.9 fL Normal 83.5-101 [facility] Comment on above: Performed By: #### Young FRANK #### Point of Care testing , Mean Corpuscular HGB Conc 32.5 g/dL Normal 32.5-35.6 [facility] Comment on above: Performed By: #### Young FRANK #### Point of Care testing , Monocytes (Bld) [#/Vol] 0.9 10*3/uL High 0.0-0.8 [facility] Comment on above: Performed By: #### Young FRANK #### Point of Care testing , Monocytes/100 WBC (Bld) 5.9 % Normal . [facility] Comment on above: Performed By: #### Young RICHARDSLS #### Point of Care testing , Neutrophils (Bld) [#/Vol] 13.9 10*3/uL High 1.8-7.7 [facility] Comment on above: Performed By: #### Young FRANK #### Point of Care testing , Neutrophils/100 WBC (Bld) 89.6 % Normal . [facility] Comment on above: Performed By: #### G ZAC #### Point of Care testing , NRBC% 0.1 /100{WBC} Normal 0-0.5 [facility] Comment on above: Performed By: #### G ZAC #### Point of Care testing , Platelet mean volume (Bld) [Entitic vol] 7.8 fL Normal 6.6-10.1 [facility] Comment on above: Performed By: #### G ZAC #### Point of Care testing , Platelets (Bld) [#/Vol] 146 10*3/uL Low 150-450 [facility] Comment on above: Performed By: #### G ZAC #### Point of Care testing , RBC (Bld) [#/Vol] 3.04 10*6/uL Low 3.90-5.60 [facility] Comment on above: Performed By: #### Young FRANK #### Point of Care testing , WBC (Bld) [#/Vol] 15.5 10*3/uL High 4.1-10.5 [facility] Comment on above: Performed By: #### Young FRANK #### Point of Care testing , Comprehensive Metabolic Pane real 09-02-2022 Albumin [Mass/Vol] 2.5 g/dL Low 3.5-5.7 [facility] Comment on above: Performed By: #### C BC, RENAL, CMP ####[facility] [id number] [place] [id number] [facility] Albumin/Globulin [Mass ratio] 0.8 {ratio} Normal [facility] Comment on above: Performed By: #### C BC, RENAL, CMP ####[facility] [id number] [place] [id number] [facility] ALP [Catalytic activity/Vol] 97 U/L Normal 34-104 [facility] Comment on above: Performed By: #### C BC, RENAL, CMP ####[facility] [place] [id number] [facility] ALT [Catalytic activity/Vol] 27 U/L Normal 7-52 [facility] Comment on above: Performed By: #### C BC, RENAL, CMP ####[place] [place] [address] [facility] Anion gap [Moles/Vol] 15.2 mmol/L High 6.0-15.0 [facility] Comment on above: Performed By: #### C BC, RENAL, CMP ####[address] [address] [facility] AST [Catalytic activity/Vol] 14 U/L Normal 13-39 [facility] Comment on above: Performed By: #### C BC, RENAL, CMP ####[place] [address] [place] [address] [facility] Bilirubin [Mass/Vol] 0.3 mg/dL Normal 0.3-1.0 [facility] Comment on above: Performed By: #### C BC, RENAL, CMP ####[address] [address] [facility] Calcium [Mass/Vol] 8.5 mg/dL Low 8.6-10.3 [facility] Comment on above: Performed By: #### C BC, RENAL, CMP ####[place] [id number] [facility] Chloride [Moles/Vol] 106 mmol/L Normal 98-107 [facility] Comment on above: Performed By: #### C BC, RENAL, CMP ####[address] [address] [facility] CO2 [Moles/Vol] 20.3 mmol/L Low 21.0-31.0 [facility] Comment on above: Performed By: #### C BC, RENAL, CMP ####[address] [address] [place] [facility] Creatinine [Mass/Vol] 6.98 mg/dL High 0.70-1.30 [facility] Comment on above: Performed By: #### C BC, RENAL, CMP ####[address] [address] [place] Creatinine Clr Calc Pharmacy 14.33 Normal [facility] Comment on above: Performed By: #### C BC, RENAL, CMP ####[place] [address] [place] [id number] [facility] GFR/1.73 sq M.predicted MDRD (S/P/Bld) [Vol rate/Area] 7.816 mL/min/{1.73_m2} [facility] Comment on above: Performed By: #### C BC, RENAL, CMP ####[place] [id number] [facility] Globulin (S) [Mass/Vol] 3.1 g/dL [facility] Comment on above: Performed By: #### C BC, RENAL, CMP ####[place] [id number] [facility] Glucose [Mass/Vol] 118 mg/dL High 70-100 [facility] Comment on above: Result Comment: [place] Glucose Reference Range is dependent on time and content of last meal. Glucose of more than 200 mg/dL in a nonstressed, ambulatory subject supports the diagnosis of Diabetes Mellitus. ADA recommended reference range Performed By: #### C BC, RENAL, CMP ####[place] [id number] [facility] Potassium [Moles/Vol] 5.5 mmol/L High 3.5-5.1 [facility] Comment on above: Performed By: #### C BC, RENAL, CMP ####[place] [id number] [facility] Protein [Mass/Vol] 5.6 g/dL Low 6.4-8.9 [facility] Comment on above: Performed By: #### C BC, RENAL, CMP ####[place] [id number] [facility] Sodium [Moles/Vol] 136 mmol/L Normal 136-145 [facility] Comment on above: Performed By: #### C BC, RENAL, CMP ####[place] [id number] [facility] Urea nitrogen [Mass/Vol] 92 mg/dL High 7-25 [facility] Comment on above: Performed By: #### C BC, RENAL, CMP ####[facility] [id number] [place] [address] [place] Consultation Noteon 09-03-19 Consultation Note [phone] [id number]:127 Normal [facility] Glucose Poct Glucometerson 0 09-02-2022 Glucose [Mass/Vol] 161 mg/dL Normal [facility] Comment on above: Result Comment: [facility] Glucose Reference Range is dependent on time and content of last meal. Glucose of more than 200 mg/dL in a nonstressed, ambulatory subject supports the diagnosis of Diabetes Mellitus. PERFORMED BY: [facility] [address] [place] [id number] PATHOLOGIST BENCH HAND BRANDEN WHATLEY M.D. Performed By: #### G LULS #### Point of Care testing , Commemt1 Glu2: Cleaned Meter Normal [facility] Comment on above: Result Comment: PERF ORMED BY: [facility] [address] [facility] [id number] PATHOLOGIST BENCH HAND BRANDEN WHATLYE M.D. Performed By: #### G LULS #### Point of Care testing , Glucose [Mass/Vol] 244 mg/dL Normal [facility] Comment on above: Result Comment: [facility] Glucose Reference Range is dependent on time and content of last meal. Glucose of more than 200 mg/dL in a nonstressed, ambulatory subject supports the diagnosis of Diabetes Mellitus. Performed By: #### G LULS #### Point of Care testing , Insurance Correspondence Off iceon 09-02-2022 Insurance Correspondence Office [id number]:127 Normal [facility] Renal Function Panelon 09-02 Phosphate [Mass/Vol] 6.5 mg/dL Normal 3.7-7.2 [facility] Comment on above: Result Comment: PERF ORMED BY: [facility] [address] [place] [address] PATHOLOGIST BENCH HAND BRANDEN WHATLEY M.D. Performed By: #### C BC, RENAL, CMP ####[address] Complete Blood Count Auto Di ffon 09-01-2022 Basophils (Bld) [#/Vol] 0.1 10*3/uL Normal 0.0-0.2 [facility] Comment on above: Result Comment: PERF ORMED BY: [facility] [address] [facility] [place] [address] PATHOLOGIST BENCH HAND BRANDEN WHATLEY M.D. Performed By: #### R ENAL, CBC, CMP ####[address] Basophils/100 WBC (Bld) 1.2 % Normal . [facility] Comment on above: Performed By: #### R ENAL, CBC, CMP ####[address] Eosinophils (Bld) [#/Vol] 0.3 10*3/uL Normal 0.0-0.45 [facility] Comment on above: Performed By: #### R ENAL, CBC, CMP ####[address] Eosinophils/100 WBC (Bld) 5.5 % Normal . [facility] Comment on above: Performed By: #### R ENAL, CBC, CMP ####[address] Erythrocyte distribution width (RBC) [Ratio] 14.7 % Normal 12.0-14.8 [facility] Comment on above: Performed By: #### R ENAL, CBC, CMP ####[address] Hematocrit (Bld) [Volume fraction] 25.2 % Low 38.8-50.0 [facility] Comment on above: Performed By: #### R ENAL, CBC, CMP ####[address] [place] [address] [place] Hemoglobin (Bld) [Mass/Vol] 8.3 g/dL Low 13.0-17.0 [facility] Comment on above: Performed By: #### R ENAL, CBC, CMP ####[address] Lymphocytes (Bld) [#/Vol] 0.9 10*3/uL Low 1.00-4.8 [facility] Comment on above: Performed By: #### R ENAL, CBC, CMP ####[address] Lymphocytes/100 WBC (Bld) 14.6 % Normal . [facility] Comment on above: Performed By: #### R ENAL, CBC, CMP ####[address] MCH (RBC) [Entitic mass] 29.0 pg Normal 27.5-35.2 [facility] Comment on above: Performed By: #### R ENAL, CBC, CMP ####[address] MCV (RBC) [Entitic vol] 87.7 fL Normal 83.5-101 [facility] Comment on above: Performed By: #### R ENAL, CBC, CMP ####[address] Mean Corpuscular HGB Conc 33.0 g/dL Normal 32.5-35.6 [facility] Comment on above: Performed By: #### R ENAL, CBC, CMP ####[address] Monocytes (Bld) [#/Vol] 0.8 10*3/uL Normal 0.0-0.8 [facility] Comment on above: Performed By: #### R ENAL, CBC, CMP ####[address] Monocytes/100 WBC (Bld) 12.6 % Normal . [facility] Comment on above: Performed By: #### R ENAL, CBC, CMP ####[address] Neutrophils (Bld) [#/Vol] 4.0 10*3/uL Normal 1.8-7.7 [facility] Comment on above: Performed By: #### R ENAL, CBC, CMP ####[address] Neutrophils/100 WBC (Bld) 66.1 % Normal . [facility] Comment on above: Performed By: #### R ENAL, CBC, CMP ####[address] NRBC% 0.1 /100{WBC} Normal 0-0.5 [facility] Comment on above: Performed By: #### R ENAL, CBC, CMP ####[address] Platelet mean volume (Bld) [Entitic vol] 7.9 fL Normal 6.6-10.1 [facility] Comment on above: Performed By: #### R ENAL, CBC, CMP ####[address] Platelets (Bld) [#/Vol] 145 10*3/uL Low 150-450 [facility] Comment on above: Performed By: #### R ENAL, CBC, CMP ####[address] RBC (Bld) [#/Vol] 2.87 10*6/uL Low 3.90-5.60 [facility] Comment on above: Performed By: #### R ENAL, CBC, CMP ####[address] WBC (Bld) [#/Vol] 6.1 10*3/uL Normal 4.1-10.5 [facility] Comment on above: Performed By: #### R ENAL, CBC, CMP ####[place] [id number] [facility] Comprehensive Metabolic Pane real 09-01-2022 Albumin [Mass/Vol] 2.7 g/dL Low 3.5-5.7 [facility] Comment on above: Performed By: #### R TELLY, CBC, CMP ####[facility] [id number] [place] [address] [facility] Albumin/Globulin [Mass ratio] 0.9 {ratio} Normal [facility] Comment on above: Performed By: #### R TELLY CBC, CMP ####[facility] [id number] [place] [address] [facility] ALP [Catalytic activity/Vol] 107 U/L High 34-104 [facility] Comment on above: Performed By: #### R TELYL CBC, CMP ####[facility] [id number] [place] [address] [facility] ALT [Catalytic activity/Vol] 32 U/L Normal 7-52 [facility] Comment on above: Performed By: #### R TELLY, CBC, CMP ####[facility] [id number] [place] [address] [facility] Anion gap [Moles/Vol] 14.1 mmol/L Normal 6.0-15.0 [facility] Comment on above: Performed By: #### Fadia VARNER CBC, CMP ####[place] [address] [place] [address] [facility] AST [Catalytic activity/Vol] 21 U/L Normal 13-39 [facility] Comment on above: Performed By: #### R TELLY, CBC, CMP ####[facility] [id number] [place] [address] [facility] Bilirubin [Mass/Vol] 0.4 mg/dL Normal 0.3-1.0 [facility] Comment on above: Performed By: #### R TELLY, CBC, CMP ####[facility] [id number] [place] [address] [facility] Calcium [Mass/Vol] 8.9 mg/dL Normal 8.6-10.3 [facility] Comment on above: Performed By: #### R ENAL, CBC, CMP ####[place] [address] [place] [id number] [facility] Chloride [Moles/Vol] 110 mmol/L High 98-107 [facility] Comment on above: Performed By: #### R ENAL, CBC, CMP ####[place] [phone] [facility] CO2 [Moles/Vol] 17.7 mmol/L Low 21.0-31.0 [facility] Comment on above: Performed By: #### R ENAL, CBC, CMP ####[address] Creatinine [Mass/Vol] 6.68 mg/dL Significan t change up 0.70-1.30 [facility] Comment on above: Performed By: #### R TELLY, CBC, CMP ####[address] Creatinine Clr Calc Pharmacy 14.96 [facility] Comment on above: Performed By: #### R ENAL, CBC, CMP ####[place] [phone] [facility] GFR/1.73 sq M.predicted MDRD (S/P/Bld) [Vol rate/Area] 8.239 mL/min/{1.73_m2} [facility] Comment on above: Performed By: #### R ENAL, CBC, CMP ####[address] Globulin (S) [Mass/Vol] 3.0 g/dL [facility] Comment on above: Performed By: #### R ENAL, CBC, CMP ####[place] [phone] [facility] Glucose [Mass/Vol] 90 mg/dL Normal 70-100 [facility] Comment on above: Result Comment: [place] Glucose Reference Range is dependent on time and content of last meal. Glucose of more than 200 mg/dL in a nonstressed, ambulatory subject supports the diagnosis of Diabetes Mellitus. ADA recommended reference range Performed By: #### R ENAL, CBC, CMP ####[facility] [place] [address] [facility] Potassium [Moles/Vol] 4.8 mmol/L Normal 3.5-5.1 [facility] Comment on above: Performed By: #### R ENAL, CBC, CMP ####[place] [address] [place] [address] [facility] Protein [Mass/Vol] 5.7 g/dL Low 6.4-8.9 [facility] Comment on above: Performed By: #### R ENAL, CBC, CMP ####[place] [address] [place] [address] [facility] Sodium [Moles/Vol] 137 mmol/L Normal 136-145 [facility] Comment on above: Performed By: #### R ENAL, CBC, CMP ####[address] [address] [facility] Urea nitrogen [Mass/Vol] 83 mg/dL High 7-25 [facility] Comment on above: Performed By: #### R ENAL, CBC, CMP ####[address] [address] [facility] Glucose Poct Glucometerson 0 - Glucose [Mass/Vol] 95 mg/dL Normal [facility] Comment on above: Result Comment: [facility] Glucose Reference Range is dependent on time and content of last meal. Glucose of more than 200 mg/dL in a nonstressed, ambulatory subject supports the diagnosis of Diabetes Mellitus. PERFORMED BY: [facility] [address] [address] PATHOLOGIST BENCH HAND BRANDEN WHATLEY M.D. Performed By: #### G LULS #### Point of Care testing , Commemt1 Glu2: Cleaned Meter Normal [facility] Comment on above: Result Comment: PERF ORMED BY: [facility] [address] [place] [address] PATHOLOGIST BENCH HAND BRANDEN WHATLEY M.D. Performed By: #### G LULS #### Point of Care testing , Glucose [Mass/Vol] 96 mg/dL Normal [facility] Comment on above: Result Comment: [place] om Glucose Reference Range is dependent on time and content of last meal. Glucose of more than 200 mg/dL in a nonstressed, ambulatory subject supports the diagnosis of Diabetes Mellitus. Performed By: #### G LULS #### Point of Care testing , Glucose [Mass/Vol] 100 mg/dL Normal [facility] Comment on above: Result Comment: [place] om Glucose Reference Range is dependent on time and content of last meal. Glucose of more than 200 mg/dL in a nonstressed, ambulatory subject supports the diagnosis of Diabetes Mellitus. PERFORMED BY: [facility] [address] [place] [address] PATHOLOGIST BENCH HAND BRANDEN WHATLEY M.D. Performed By: #### G LULS ####Point of Care testing, Renal Function Panelon 09-01 Phosphate [Mass/Vol] 7.0 mg/dL Normal 3.7-7.2 [facility] Comment on above: Result Comment: PERF ORMED BY: [facility] [address] [place] [address] PATHOLOGIST BENCH HAND BRANDEN WHATLEY M.D. Performed By: #### R ENAL, CBC, CMP ####[facility] [id number] [place] [id number] [facility] ABO/Rh Retypeon 08-31-2022 ABO/RH Recheck Result Negative Normal [facility] Comment on above: Order Comment: NEEDS DRAWN Result Comment: PERF ORMED BY: [facility] [address] [place] [address] PATHOLOGIST BENCH HAND BRANDEN WHATLEY M.D. Basic Metabolic Panelon 08-13 Anion gap [Moles/Vol] 16.5 mmol/L High 6.0-15.0 [facility] Comment on above: Performed By: #### F E and TIBC, [id number], ODALIS #### [facility] [address] [place] [id number] [facility] Calcium [Mass/Vol] 8.3 mg/dL Low 8.6-10.3 [facility] Comment on above: Performed By: #### F E and TIBC, [id number], ODALIS #### [facility] [address] Chloride [Moles/Vol] 111 mmol/L High 98-107 [facility] Comment on above: Performed By: #### F E and TIBC, [id number], ODALIS #### [facility] [address] CO2 [Moles/Vol] 14.2 mmol/L Low 21.0-31.0 [facility] Comment on above: Performed By: #### F E and TIBC, [id number], ODALIS #### [facility] [address] Creatinine [Mass/Vol] 5.39 mg/dL Significan t change up 0.70-1.30 [facility] Comment on above: Performed By: #### F E and TIBC, [id number], ODALIS #### [facility] [address] [place] [address] [place] Creatinine Clr Calc Pharmacy 18.62 [facility] Comment on above: Performed By: #### F E and TIBC, [id number], ODALIS #### [facility] [address] GFR/1.73 sq M.predicted MDRD (S/P/Bld) [Vol rate/Area] 10.659 mL/min/{1.73_m2} [facility] Comment on above: Performed By: #### F E and TIBC, [id number], ODALIS #### [facility] [address] [place] [address] [place] Glucose [Mass/Vol] 104 mg/dL High 70-100 [facility] Comment on above: Result Comment: [place] Glucose Reference Range is dependent on time and content of last meal. Glucose of more than 200 mg/dL in a nonstressed, ambulatory subject supports the diagnosis of Diabetes Mellitus. ADA recommended reference range Performed By: #### F E and TIBC, [id number], ODALIS #### [facility] [address] Potassium [Moles/Vol] 4.7 mmol/L Normal 3.5-5.1 [facility] Comment on above: Performed By: #### F E and TIBC, [id number], ODALIS #### [address] Sodium [Moles/Vol] 137 mmol/L Normal 136-145 [facility] Comment on above: Performed By: #### F E and TIBC, [id number], ODALIS #### [address] Urea nitrogen [Mass/Vol] 73 mg/dL High 7-25 [facility] Comment on above: Performed By: #### F E and TIBC, [id number], ODALIS #### [address] Complete Blood Count Auto Di ffon 08-31-2022 Basophils (Bld) [#/Vol] 0.0 10*3/uL Normal 0.0-0.2 [facility] Comment on above: Result Comment: PERF ORMED BY: [place] [address] PATHOLOGIST BENCH HAND BRANDEN WHATLEY M.D. Performed By: #### B MP, CBC, MG ####[address] Basophils/100 WBC (Bld) 0.8 % Normal . [facility] Comment on above: Performed By: #### B MP, CBC, MG ####[place] [address] [place] Eosinophils (Bld) [#/Vol] 0.2 10*3/uL Normal 0.0-0.45 [facility] Comment on above: Performed By: #### B MP, CBC, MG ####[place] [address] [place] Eosinophils/100 WBC (Bld) 4.2 % Normal . [facility] Comment on above: Performed By: #### B MP, CBC, MG ####[address] Erythrocyte distribution width (RBC) [Ratio] 14.9 % High 12.0-14.8 [facility] Comment on above: Performed By: #### B MP, CBC, MG ####[address] Hematocrit (Bld) [Volume fraction] 19.8 % Off scale low 38.8-50.0 [facility] Comment on above: Result Comment: Crit ical Result HCT:19.8 called to and read back by: [id number] on 08/31/2022 11:09:15 by:SULY. Performed By: #### B MP, CBC, MG ####[address] Hemoglobin (Bld) [Mass/Vol] 6.4 g/dL Low 13.0-17.0 [facility] Comment on above: Performed By: #### B MP, CBC, MG ####[address] Lymphocytes (Bld) [#/Vol] 0.8 10*3/uL Low 1.00-4.8 [facility] Comment on above: Performed By: #### B MP, CBC, MG ####[address] Lymphocytes/100 WBC (Bld) 14.6 % Normal . [facility] Comment on above: Performed By: #### B MP, CBC, MG ####[address] MCH (RBC) [Entitic mass] 28.7 pg Normal 27.5-35.2 [facility] Comment on above: Performed By: #### B MP, CBC, MG ####[address] MCV (RBC) [Entitic vol] 88.3 fL Normal 83.5-101 [facility] Comment on above: Performed By: #### B MP, CBC, MG ####[address] Mean Corpuscular HGB Conc 32.5 g/dL Normal 32.5-35.6 [facility] Comment on above: Performed By: #### B MP, CBC, MG ####[address] Monocytes (Bld) [#/Vol] 0.5 10*3/uL Normal 0.0-0.8 [facility] Comment on above: Performed By: #### B MP, CBC, MG ####[address] Monocytes/100 WBC (Bld) 9.8 % Normal . [facility] Comment on above: Performed By: #### B MP, CBC, MG ####[address] Neutrophils (Bld) [#/Vol] 3.8 10*3/uL Normal 1.8-7.7 [facility] Comment on above: Performed By: #### B MP, CBC, MG ####[address] Neutrophils/100 WBC (Bld) 70.6 % Normal . [facility] Comment on above: Performed By: #### B MP, CBC, MG ####[address] NRBC% 0.0 /100{WBC} Normal 0-0.5 [facility] Comment on above: Performed By: #### B MP, CBC, MG ####[address] Platelet mean volume (Bld) [Entitic vol] 7.7 fL Normal 6.6-10.1 [facility] Comment on above: Performed By: #### B MP, CBC, MG ####[address] Platelets (Bld) [#/Vol] 142 10*3/uL Low 150-450 [facility] Comment on above: Performed By: #### B MP, CBC, MG ####[facility] [id number] RBC (Bld) [#/Vol] 2.24 10*6/uL Low 3.90-5.60 [facility] Comment on above: Performed By: #### B MP, CBC, MG ####[facility] [id number] WBC (Bld) [#/Vol] 5.4 10*3/uL Normal 4.1-10.5 [facility] Comment on above: Performed By: #### B MP, CBC, MG ####[facility] [id number] Ferritinon 08-31-2022 Ferritin [Mass/Vol] 551.8 ng/mL High 23.9-336.2 [facility] Comment on above: Performed By: #### F E and TIBC, [id number], ODALIS #### [facility] [address] Glucose Poct Glucometerson 0 08-31-2022 Commemt1 Glu2: Cleaned Meter [facility] Comment on above: Result Comment: PERF ORMED BY: [place] [address] PATHOLOGIST BENCH HAND BRANDEN WHATLEY M.D. Performed By: #### G LULS ####Point of Care testing, Glucose [Mass/Vol] 123 mg/dL Normal [facility] Comment on above: Result Comment: [facility] Glucose Reference Range is dependent on time and content of last meal. Glucose of more than 200 mg/dL in a nonstressed, ambulatory subject supports the diagnosis of Diabetes Mellitus. Performed By: #### G LULS ####Point of Care testing, Commemt1 Glu2: Cleaned Meter Normal [facility] Comment on above: Result Comment: PERF ORMED BY: [place] [address] PATHOLOGIST BENCH HAND BRANDEN WHATLEY M.D. Performed By: #### G LULS #### Point of Care testing , Glucose [Mass/Vol] 101 mg/dL Normal [facility] Comment on above: Result Comment: [place] om Glucose Reference Range is dependent on time and content of last meal. Glucose of more than 200 mg/dL in a nonstressed, ambulatory subject supports the diagnosis of Diabetes Mellitus. Performed By: #### G LULS #### Point of Care testing , Commemt1 Glu2: Cleaned Meter Normal [facility] Comment on above: Result Comment: PERF ORMED BY: [place] [address] PATHOLOGIST BENCH HAND BRANDEN WHATLEY M.D. Performed By: #### G LULS #### Point of Care testing , Glucose [Mass/Vol] 126 mg/dL Normal [facility] Comment on above: Result Comment: [place] om Glucose Reference Range is dependent on time and content of last meal. Glucose of more than 200 mg/dL in a nonstressed, ambulatory subject supports the diagnosis of Diabetes Mellitus. Performed By: #### G LULS #### Point of Care testing , Glucose [Mass/Vol] 123 mg/dL Normal [facility] Comment on above: Result Comment: [place] om Glucose Reference Range is dependent on time and content of last meal. Glucose of more than 200 mg/dL in a nonstressed, ambulatory subject supports the diagnosis of Diabetes Mellitus. PERFORMED BY: [place] [address] PATHOLOGIST BENCH HAND BRANDEN WHATLEY M.D. Performed By: #### F E and TIBC, [id number], ODALIS #### [address] Haptoglobinon 08-31-2022 Haptoglobin 189 mg/dL Normal 44-215 [facility] Comment on above: Result Comment: PERF ORMED BY: [place] [address] PATHOLOGIST BENCH HAND BRANDEN WHATLEY M.D. Performed By: #### G LULS #### Point of Care testing , Iron and TIBC Profileon 08-13 0 % Iron Saturation 27.5 % Normal 20-50 [facility] Comment on above: Performed By: #### F E and TIBC, [id number], ODALIS #### [facility] [address] Iron [Mass/Vol] 53 ug/dL Normal 50-212 [facility] Comment on above: Performed By: #### F E and TIBC, [id number], ODALIS #### [facility] [address] Total Iron Binding Capacity 193 ug/dL Low 255-450 [facility] Comment on above: Performed By: #### F E and TIBC, [id number], ODALIS #### [facility] [address] [place] [address] [place] Transferrin [Mass/Vol] 138 mg/dL Low 203-362 [facility] Comment on above: Performed By: #### F E and TIBC, [id number], ODALIS #### [facility] [address] [place] [address] LDH Lactate Dehydrogenaseon 08-31-2022 LDH Lactate Dehydrogenase 100 U/L Low 140-271 [facility] Comment on above: Result Comment: PERF ORMED BY: [place] [address] PATHOLOGIST BENCH HAND BRANDEN WHATLEY M.D. Performed By: #### G LULS #### Point of Care testing , LeukoReduced RBCon 3 LeukoReduced RBC TRANSFUSED 08/31/22 1822 Normal [facility] Magnesiumon 08-31-2022 Magnesium [Mass/Vol] 1.2 mg/dL Low 1.9-2.7 [facility] Comment on above: Result Comment: PERF ORMED BY: [place] [address] PATHOLOGIST BENCH HAND BRANDEN WHATLEY M.D. Performed By: #### F E and TIBC, [id number], ODALIS #### [address] Reticulocyte Counton 023 Reticulocyte Number 0.069 10*6/uL Normal 0.024-0.084 [facility] Comment on above: Result Comment: PERF ORMED BY: [place] [address] PATHOLOGIST BENCH HAND BRANDEN WHATLEY M.D. Performed By: #### G LULS #### Point of Care testing , Reticulocyte Percent 2.7 % High 0.5-1.5 [facility] Comment on above: Performed By: #### G LULS #### Point of Care testing , Type and Screenon 08-31-2022 ABO and Rh group Nom (Bld) Blood group O Rh(D) negative Normal [facility] Comment on above: Order Comment: NEEDS DRAWN Result Comment: PERF ORMED BY: [place] [address] PATHOLOGIST BENCH HAND BRANDEN WHATLEY M.D. Vit. B12/Folate Profileon Cobalamin (Vitamin B12) [Mass/Vol] 616 pg/mL Normal 180-914 [facility] Comment on above: Performed By: #### F E and TIBC, [id number], ODALIS #### [address] Folate 12.5 ng/mL Normal >5.9 [facility] Comment on above: Result Comment: Adrianna te reference range: >5.9 ng/ml The WHO technical consultation on folate and vitamin b12 deficiencies has determined that folate concentrations less than 4 ng/ml are considered deficient. PERFORMED BY: [place] [address] PATHOLOGIST BENCH HAND BRANDEN WHATLEY M.D. Performed By: #### F E and TIBC, [id number], ODALIS #### [address] Blood Cultureon 08-30-2022 Bacteria identified Cx Nom (Bld) NO GROWTH 5 DAYS PERFORMED BY: [place] [address] PATHOLOGIST BENCH HAND BRANDEN WHATLEY M.D. [facility] Comment on above: Performed By: #### G LULS #### Point of Care testing , Bacteria identified Cx Nom (Bld) NO GROWTH 5 DAYS PERFORMED BY: [place] [id number] PATHOLOGIST BENCH HAND BRANDEN WHATLEY M.D. [facility] Comment on above: Performed By: #### G LULS #### Point of Care testing , CT abdomen pelvis wo conon 0 08-30-2022 CT abdomen pelvis wo con [facility] [place] [address] [place], [place] [id number] CT Scan Report Signed Patient: Matt Kelly MR#: [id number] : 1950 Acct:[id number] Age/Sex: 71 / M ADM Date: 08/30/22 Loc: ER Room: Type: [facility] ER Attending Dr: Copies to: Ragini [...] Erik Larson M.D.08/30/2022 3:47 PM Dictation Location: [place] [address] Transcribed By: [facility] 08/30/22 1547 Dictated By: Erik Larson DO 08/30/22 1535 Signed By: 08/30/22 1547 Normal [facility] Complete Blood Count Auto Di ffon 08-30-2022 Basophils (Bld) [#/Vol] 0.1 10*3/uL Normal 0.0-0.2 [facility] Comment on above: Result Comment: PERF ORMED BY: [facility] [address] [place] [address] PATHOLOGIST BENCH HAND BRANDEN WHATLEY M.D. Performed By: #### G LULS #### Point of Care testing , Basophils/100 WBC (Bld) 1.0 % Normal . [facility] Comment on above: Performed By: #### G LULS #### Point of Care testing , Eosinophils (Bld) [#/Vol] 0.4 10*3/uL Normal 0.0-0.45 [facility] Comment on above: Performed By: #### G LULS #### Point of Care testing , Eosinophils/100 WBC (Bld) 4.9 % Normal . [facility] Comment on above: Performed By: #### G LULS #### Point of Care testing , Erythrocyte distribution width (RBC) [Ratio] 14.7 % Normal 12.0-14.8 [facility] Comment on above: Performed By: #### Young FRANK #### Point of Care testing , Hematocrit (Bld) [Volume fraction] 24.2 % Low 38.8-50.0 [facility] Comment on above: Performed By: #### G ZAC #### Point of Care testing , Hemoglobin (Bld) [Mass/Vol] 8.0 g/dL Low 13.0-17.0 [facility] Comment on above: Performed By: #### G ZAC #### Point of Care testing , Lymphocytes (Bld) [#/Vol] 1.0 10*3/uL Normal 1.00-4.8 [facility] Comment on above: Performed By: #### G ZAC #### Point of Care testing , Lymphocytes/100 WBC (Bld) 13.4 % Normal . [facility] Comment on above: Performed By: #### Young RICHARDSLS #### Point of Care testing , MCH (RBC) [Entitic mass] 29.4 pg Normal 27.5-35.2 [facility] Comment on above: Performed By: #### Young FRANK #### Point of Care testing , MCV (RBC) [Entitic vol] 88.5 fL Normal 83.5-101 [facility] Comment on above: Performed By: #### G ZAC #### Point of Care testing , Mean Corpuscular HGB Conc 33.2 g/dL Normal 32.5-35.6 [facility] Comment on above: Performed By: #### G ZAC #### Point of Care testing , Monocytes (Bld) [#/Vol] 0.8 10*3/uL Normal 0.0-0.8 [facility] Comment on above: Performed By: #### Young RICHARDSLS #### Point of Care testing , Monocytes/100 WBC (Bld) 16.70 % Normal 0.00-20.00 [facility] Comment on above: Performed By: #### Young FRANK #### Point of Care testing , Monocytes/100 WBC (Bld) 10.1 % Normal . [facility] Comment on above: Performed By: #### Young FRANK #### Point of Care testing , Neutrophils (Bld) [#/Vol] 5.3 10*3/uL Normal 1.8-7.7 [facility] Comment on above: Performed By: #### Young RICHARDSLS #### Point of Care testing , Neutrophils/100 WBC (Bld) 70.6 % Normal . [facility] Comment on above: Performed By: #### G SUSIELS #### Point of Care testing , NRBC% 0.1 /100{WBC} Normal 0-0.5 [facility] Comment on above: Performed By: #### Young RICHARDSLS #### Point of Care testing , Platelet mean volume (Bld) [Entitic vol] 7.7 fL Normal 6.6-10.1 [facility] Comment on above: Performed By: #### Young RICHARDSLS #### Point of Care testing , Platelets (Bld) [#/Vol] 181 10*3/uL Normal 150-450 [facility] Comment on above: Performed By: #### Young FRANK #### Point of Care testing , RBC (Bld) [#/Vol] 2.73 10*6/uL Low 3.90-5.60 [facility] Comment on above: Performed By: #### Young RICHARDSLS #### Point of Care testing , WBC (Bld) [#/Vol] 7.4 10*3/uL Normal 4.1-10.5 [facility] Comment on above: Performed By: #### Young RICHARDSLS #### Point of Care testing , Comprehensive Metabolic Pane real 08-30-2022 Albumin [Mass/Vol] 2.9 g/dL Low 3.5-5.7 [facility] Comment on above: Performed By: #### Young RICHARDSLS #### Point of Care testing , Albumin/Globulin [Mass ratio] 0.8 {ratio} Normal [facility] Comment on above: Performed By: #### Young RICHARDSLS #### Point of Care testing , ALP [Catalytic activity/Vol] 105 U/L High 34-104 [facility] Comment on above: Performed By: #### G SUSIELS #### Point of Care testing , ALT [Catalytic activity/Vol] 31 U/L Normal 7-52 [facility] Comment on above: Performed By: #### G SUSIELS #### Point of Care testing , Anion gap [Moles/Vol] 14.3 mmol/L Normal 6.0-15.0 [facility] Comment on above: Performed By: #### G LULS #### Point of Care testing , AST [Catalytic activity/Vol] 14 U/L Normal 13-39 [facility] Comment on above: Performed By: #### G SUSIELS #### Point of Care testing , Bilirubin [Mass/Vol] 0.3 mg/dL Normal 0.3-1.0 [facility] Comment on above: Performed By: #### G SUSIELS #### Point of Care testing , Calcium [Mass/Vol] 8.9 mg/dL Normal 8.6-10.3 [facility] Comment on above: Performed By: #### G SUSIELS #### Point of Care testing , Chloride [Moles/Vol] 110 mmol/L High 98-107 [facility] Comment on above: Performed By: #### G SUSIELS #### Point of Care testing , CO2 [Moles/Vol] 17.6 mmol/L Low 21.0-31.0 [facility] Comment on above: Performed By: #### G SUSIELS #### Point of Care testing , Creatinine [Mass/Vol] 6.18 mg/dL High 0.70-1.30 [facility] Comment on above: Performed By: #### G SUSIELS #### Point of Care testing , Creatinine Clr Calc Pharmacy 16.08 [facility] Comment on above: Result Comment: PERF ORMED BY: [facility] [address] [place] [address] PATHOLOGIST BENCH HAND BRANDEN WHATLEY M.D. Performed By: #### G SUSIELS #### Point of Care testing , GFR/1.73 sq M.predicted MDRD (S/P/Bld) [Vol rate/Area] 9.045 mL/min/{1.73_m2} [facility] Comment on above: Performed By: #### G SUSIELS #### Point of Care testing , Globulin (S) [Mass/Vol] 3.5 g/dL Normal [facility] Comment on above: Performed By: #### G LULS #### Point of Care testing , Glucose [Mass/Vol] 105 mg/dL High 70-100 [facility] Comment on above: Result Comment: [facility] Glucose Reference Range is dependent on time and content of last meal. Glucose of more than 200 mg/dL in a nonstressed, ambulatory subject supports the diagnosis of Diabetes Mellitus. ADA recommended reference range Performed By: #### G LULS #### Point of Care testing , Potassium [Moles/Vol] 4.9 mmol/L Normal 3.5-5.1 [facility] Comment on above: Performed By: #### G SUSIELS #### Point of Care testing , Protein [Mass/Vol] 6.4 g/dL Normal 6.4-8.9 [facility] Comment on above: Performed By: #### G SUSIELS #### Point of Care testing , Sodium [Moles/Vol] 137 mmol/L Normal 136-145 [facility] Comment on above: Performed By: #### G SUSIELS #### Point of Care testing , Urea nitrogen [Mass/Vol] 84 mg/dL High 7-25 [facility] Comment on above: Performed By: #### G SUSIELS #### Point of Care testing , Dipstick and Microscopicon 0 08-30-2022 Appearance (U) Turbid Critically abnormal Clear [facility] Comment on above: Order Comment: Name Collection Type:: Wooten Catheter Performed By: #### F E and TIBC, [id number], ODALIS #### [facility] [address] Bacteria,Urine 2+ High None Seen [facility] Comment on above: Order Comment: Name Collection Type:: Wooten Catheter Performed By: #### F E and TIBC, [id number], ODALIS #### [facility] [address] [place] [address] [place] Bilirubin,Urine Negative Normal Negative [facility] Comment on above: Order Comment: Name Collection Type:: Wooten Catheter Performed By: #### F E and TIBC, [id number], ODALIS #### [facility] [address] [place] [address] [place] Color (U) Yellow Normal Yellow [facility] Comment on above: Order Comment: Name Collection Type:: Wooten Catheter Performed By: #### F E and TIBC, [id number], ODALIS #### [facility] [address] Glucose Ql (U) 100 mg/dL High Normal [facility] Comment on above: Order Comment: Name Collection Type:: Wooten Catheter Performed By: #### F E and TIBC, [id number], ODALIS #### [place] [address] [place] Hyaline Casts,Urine None Seen Normal 0-1 [facility] Comment on above: Order Comment: Name Collection Type:: Wooten Catheter Performed By: #### F E and TIBC, [id number], ODALIS #### [address] Ketones Ql (U) Negative Normal Negative [facility] Comment on above: Order Comment: Name Collection Type:: Wooten Catheter Performed By: #### F E and TIBC, [id number], ODALIS #### [address] Leukocyte esterase Test strip Ql (U) 4+ High Negative [facility] Comment on above: Order Comment: Name Collection Type:: Wooten Catheter Performed By: #### F E and TIBC, [id number], ODALIS #### [place] [address] [place] Nitrite,Urine Positive High Negative [facility] Comment on above: Order Comment: Name Collection Type:: Wooten Catheter Performed By: #### F E and TIBC, [id number], ODALIS #### [address] Occult Blood,Urine 3+ High Negative [facility] Comment on above: Order Comment: Name Collection Type:: Wooten Catheter Result Comment: PERF ORMED BY: [place] [address] PATHOLOGIST BENCH HAND BRANDEN WHATLEY M.D. Performed By: #### F E and TIBC, [id number], ODALIS #### [address] Other Casts,Urine None Seen Normal None Seen [facility] Comment on above: Order Comment: Name Collection Type:: Wooten Catheter Performed By: #### F E and TIBC, [id number], ODALIS #### [address] pH (U) 6.0 [pH] Normal 5.0-9.0 [facility] Comment on above: Order Comment: Name Collection Type:: Wooten Catheter Performed By: #### F E and TIBC, [id number], ODALIS #### [address] Protein (U) [Mass/Vol] 100 mg/dL High Negative [facility] Comment on above: Order Comment: Name Collection Type:: Wooten Catheter Performed By: #### F E and TIBC, [id number], ODALIS #### [facility] [address] [place] [address] [place] RBC,Urine 3-4 Normal 0-4 [facility] Comment on above: Order Comment: Name Collection Type:: Wooten Catheter Performed By: #### F E and TIBC, [id number], ODALIS #### [place] [address] [place] Specificy [place],Urine 1.011 Normal 1.001-1.030 [facility] Comment on above: Order Comment: Name Collection Type:: Wooten Catheter Performed By: #### F E and TIBC, [id number], ODALIS #### [facility] [address] Squamous Epithelial Cell,Urine 1-2 Normal 0-2 [facility] Comment on above: Order Comment: Name Collection Type:: Wooten Catheter Performed By: #### F E and TIBC, [id number], ODALIS #### [facility] [address] Urobilinogen,Urine Normal Normal Normal [facility] Comment on above: Order Comment: Name Collection Type:: Wooten Catheter Performed By: #### F E and TIBC, [id number], ODALIS #### [facility] [address] [place] [address] WBC,Urine Innumerable High 0-4 [facility] Comment on above: Order Comment: Name Collection Type:: Wooten Catheter Performed By: #### F E and TIBC, [id number], ODALIS #### [address] Yeast,Urine 2+ Critically abnormal None Seen [facility] Comment on above: Order Comment: Name Collection Type:: Wooten Catheter Result Comment: PERF ORMED BY: [place] [address] PATHOLOGIST BENCH HAND BRANDEN WHATLEY M.D. Performed By: #### F E and TIBC, [id number], ODALIS #### [facility] [address] [place] [address] Glucose Poct Glucometerson 0 08-30-2022 Glucose [Mass/Vol] 148 mg/dL Normal [facility] Comment on above: Result Comment: [place] Glucose Reference Range is dependent on time and content of last meal. Glucose of more than 200 mg/dL in a nonstressed, ambulatory subject supports the diagnosis of Diabetes Mellitus. PERFORMED BY: [place] [address] PATHOLOGIST BENCH HAND BRANDEN WHATLEY M.D. Performed By: #### G LULS #### Point of Care testing , Glucose [Mass/Vol] 100 mg/dL Normal [facility] Comment on above: Result Comment: [facility] Glucose Reference Range is dependent on time and content of last meal. Glucose of more than 200 mg/dL in a nonstressed, ambulatory subject supports the diagnosis of Diabetes Mellitus. PERFORMED BY: [place] [address] PATHOLOGIST BENCH HAND BRANDEN WHATLEY M.D. Performed By: #### F E and TIBC, [id number], ODALIS #### [facility] [address] [place] [address] Urine Cultureon 08-30-2022 Bacteria identified Cx Nom (U) ORGANISM: Pseudomonas aeruginosa (O:PSEAER) [place] Count 30,000 Aerobic RONI Charge (NMIC56) ---- [...] RESISTANT TO ALL B-LACTAM DRUGS. PERFORMED BY: [address] [place] [address] PATHOLOGIST BENCH HAND BRANDEN WHATLEY M.D. Normal [facility] Comment on above: Performed By: #### F E and TIBC, [id number], ODALIS #### [facility] [address] [place] [address] PRBC LEUKOREDUCEDon 04-06-20 23 PRBC LEUKOREDUCED Cross Match Result Compatible Unit Blood Type O Neg Unit Number [id number] Status Information Transfused Product ID Red Blood Cells Product Code [id number] [facility] Comment on above: Performed By: #### P OCGLUC #### [facility] [address] [place] [address] Dr. Dk Mahoney PRBC LEUKOREDUCED Cross Match Result Compatible Unit Blood Type O Neg Unit Number [id number] Status Information Transfused Product ID Red Blood Cells Product Code [id number] [facility] Comment on above: Performed By: #### P OCGLUC #### [facility] [address] [place] [address] Dr. Dk Mahoney CULTURE URINEon 07-09-2022 CULTURE [...] R F Levofloxacin >=[address] [facility] Comment on above: Performed By: #### P OCGLUC #### [facility] [address] [place] [address] Dr. Dk Mahoney PROTEIN ELECTROPHERESISon Albumin [Mass/Vol] 2.7 g/dL Critically low 2.9-4.4 [facility] Comment on above: Performed By: #### M G, CMP, PHOS #### [facility] [address] [place] [address] Dr. Dk Mahoney Albumin/Globulin [Mass ratio] 0.9 {ratio} Normal 0.7-1.7 [facility] Comment on above: Performed By: #### M G, CMP, PHOS #### [facility] [address] [place] [address] Dr. Dk Mahoney Bnwpz-5-Lxbxbrjh 0.2 g/dL Normal 0.0-0.4 [facility] Comment on above: Performed By: #### M G, CMP, PHOS #### [facility] [address] [place] [address] Dr. Dk Mahoney Luepc-2-Kgvirdju 0.8 g/dL Normal 0.4-1.0 [facility] Comment on above: Performed By: #### M G, CMP, PHOS #### [facility] [address] [place] [address] Dr. Dk Mahoney Beta Globulin 1.0 g/dL Normal 0.7-1.3 [facility] Comment on above: Performed By: #### M G, CMP, PHOS #### [facility] [address] [place] [address] Dr. Dk Mahoney Gamma Globulin 1.1 g/dL Normal 0.4-1.8 [facility] Comment on above: Performed By: #### M G, CMP, PHOS #### [facility] [address] [place] [address] Dr. Dk Mahoney Globulin (S) [Mass/Vol] 3.1 g/dL Normal 2.2-3.9 [facility] Comment on above: Performed By: #### M G, CMP, PHOS #### [facility] [address] [place] [address] Dr. Dk Mahoney M-Primitivo Comment: Normal Not Observed [facility] Comment on above: Result Comment: SPE shows an asymmetrical gamma. Performed By: #### M G, CMP, PHOS #### [facility] [address] [place] [address] Dr. Dk Mahoney PDF . Normal [facility] Comment on above: Performed By: #### M G, CMP, PHOS #### [facility] [address] [place] [address] [address] Dk Mahoney Please note: Comment Normal [facility] Comment on above: Result Comment: Prot ein electrophoresis scan will follow via computer, mail, or maintenance trainer delivery. Performed By: #### M G, CMP, PHOS #### [facility] [address] [place] [address] [address] Dk Mahoney Protein [Mass/Vol] 5.8 g/dL Critically low 6.0-8.5 [facility] Comment on above: Performed By: #### M G, CMP, PHOS #### [facility] [address] [place] [address] Dr. Dk Mahoney PROTEIN ELECTROPHERESIS URIN E RANDOMon 07-09-2022 Albumin, U 23.2 % Normal [facility] Comment on above: Performed By: #### M G, CMP, PHOS #### [facility] [address] [place] [address] Dr. Dk Mahoney Alpha-1 Globulin U 3.6 % Normal [facility] Comment on above: Performed By: #### M G, CMP, PHOS #### [facility] [address] [place] [address] Dr. Dk Mahoney Alpha-2 Glubulin U 19.7 % Normal [facility] Comment on above: Performed By: #### M G, CMP, PHOS #### [facility] [address] [place] [address] Dr. Dk Mahoney Beta Globulin, U 31.4 % Normal [facility] Comment on above: Performed By: #### M G, CMP, PHOS #### [facility] [address] [place] [address] Dr. Dk Mahoney Gamma Globulin U 22.1 % Normal [facility] Comment on above: Performed By: #### M G, CMP, PHOS #### [facility] [address] [place] [address] Dr. Dk Mahoney M-Primitivo, % Comment: Normal Not Observed [facility] Comment on above: Result Comment: UPE shows an asymmetrical beta. Performed By: #### M G, CMP, PHOS #### [facility] [address] [place] [address] Dr. Dk Mahoney PDF . Normal [facility] Comment on above: Performed By: #### M G, CMP, PHOS #### [facility] [address] [place] [address] Dr. Dk Mahoney Please note: Comment Normal [facility] Comment on above: Result Comment: Prot ein electrophoresis scan will follow via computer, mail, or maintenance trainer delivery. Performed By: #### M Young, CMP, PHOS #### [facility] [address] [place] [address] Dr. Dk Mahoney Protein (U) [Mass/Vol] 34.7 mg/dL Normal Not Estab. [facility] Comment on above: Performed By: #### M G CMP, PHOS #### [facility] [address] [place] [address] Dr. Dk Mahoney CBC AUTO DIFFon 07-07-2022 BASO # 0.1 103/ul Normal 0.0-0.1 [facility] Comment on above: Performed By: #### M Young CMP, PHOS #### [facility] [address] [place] [address] Dr. Dk Mahoney Basophils/100 WBC (Bld) 0.9 % Normal 0.2-2.0 [facility] Comment on above: Performed By: #### M G, CMP, PHOS #### [facility] [address] [place] [address] Dr. Dk Mahoney EO # 0.2 103/ul Normal 0.0-0.7 [facility] Comment on above: Performed By: #### M G, CMP, PHOS #### [facility] [address] [place] [address] Dr. Dk Mahoney Eosinophils/100 WBC (Bld) 2.9 % Normal 0.9-7.0 [facility] Comment on above: Performed By: #### M G, CMP, PHOS #### [facility] [address] [place] [address] Dr. Dk Mahoney Erythrocyte distribution width (RBC) [Ratio] 15.0 % Normal 11.0-15.0 [facility] Comment on above: Performed By: #### M G, CMP, PHOS #### [facility] [address] [place] [address] Dr. Dk Mahoney Hematocrit (Bld) [Volume fraction] 24.4 % Critically low 42.0-54.0 [facility] Comment on above: Performed By: #### M G, CMP, PHOS #### [facility] [address] [place] [address] Dr. Dk Mahoney Hemoglobin (Bld) [Mass/Vol] 7.8 g/dL Critically low 14.0-18.0 [facility] Comment on above: Performed By: #### M G, CMP, PHOS #### [facility] [address] [place] [address] Dr. Dk Mahoney IG # 0.07 10e3/ul Critically high 0.00-0.03 [facility] Comment on above: Performed By: #### M G, CMP, PHOS #### [facility] [address] [place] [address] Dr. Dk Mahoney IG % 1.1 % Critically high 0.0-0.5 [facility] Comment on above: Performed By: #### M G, CMP, PHOS #### [facility] [address] [place] [address] Dr. Dk Mahoney LYMPH # 1.0 103/ul Critically low 1.2-3.8 [facility] Comment on above: Performed By: #### M G, CMP, PHOS #### [facility] [address] [place] [address] Dr. Dk Mahoney Lymphocytes/100 WBC (Bld) 15.4 % Critically low 20.5-60.0 [facility] Comment on above: Performed By: #### M G, CMP, PHOS #### [facility] [address] [place] [address] Dr. Dk Mahoney MANUAL DIFF REQ NO Normal [facility] Comment on above: Performed By: #### M G, CMP, PHOS #### [facility] [address] [place] [address] Dr. Dk Mahoney MCH (RBC) [Entitic mass] 29.3 pg Normal 25.9-34.0 [facility] Comment on above: Performed By: #### M G, CMP, PHOS #### [facility] [address] [place] [address] [address] Dk Mahoney MCHC (RBC) [Mass/Vol] 32.0 g/dL Normal 29.9-35.2 [facility] Comment on above: Performed By: #### M G, CMP, PHOS #### [facility] [address] [place] [address] Dr. Dk Mahoney MCV (RBC) [Entitic vol] 91.7 fL Normal 80.0-94.0 [facility] Comment on above: Performed By: #### M G, CMP, PHOS #### [facility] [address] [place] [address] Dr. Dk Mahoney MONO # 0.6 103/ul Normal 0.3-0.8 [facility] Comment on above: Performed By: #### M G, CMP, PHOS #### [facility] [address] [place] [address] Dr. Dk Mahoney Monocytes/100 WBC (Bld) 9.2 % Normal 1.7-12.0 [facility] Comment on above: Performed By: #### M G, CMP, PHOS #### [facility] [address] [place] [address] Dr. Dk Mahoney NEUT # 4.6 103/ul Normal 1.4-6.5 [facility] Comment on above: Performed By: #### M G, CMP, PHOS #### [facility] [address] [place] [address] Dr. Dk Mahoney Neutrophils/100 WBC (Bld) 70.5 % Normal 43.0-75.0 [facility] Comment on above: Performed By: #### M Young, CMP, PHOS #### [facility] [address] [address] [address] Dk Mahoney Platelet mean volume (Bld) [Entitic vol] 10.1 fL Normal 9.5-13.5 [facility] Comment on above: Performed By: #### M Young, CMP, PHOS #### [facility] [address] [address] [address] Dk Mahoney PLT 172 103/ul Normal 150-450 [facility] Comment on above: Performed By: #### M G, CMP, PHOS #### [facility] [address] [place] [address] Dr. Dk Mahoney RBC 2.66 106/ul Critically low 4.70-6.10 [facility] Comment on above: Performed By: #### M Young, CMP, PHOS #### [facility] [address] [place] [address] Dr. Dk Mahoney WBC 6.5 103/ul Normal 4.0-11.0 [facility] Comment on above: Performed By: #### M Young, CMP, PHOS #### [facility] [address] [place] [address] Dr. Dk Mahoney MAGNESIUMon 07-07-2022 Magnesium [Mass/Vol] 1.4 mg/dL Critically low 1.8-2.4 [facility] Comment on above: Performed By: #### Rosmery Vidal CMP, PHOS #### [facility] [address] [place] [address] Dr. Dk Mahoney PHOSPHORUSon 07-07-2022 Phosphate [Mass/Vol] 5.9 mg/dL Critically high 2.6-4.7 [facility] Comment on above: Performed By: #### M Young, CMP, PHOS #### [facility] [address] [place] [address] Dr. Dk Mahoney POINT OF CARE GLUCOSEon 06-13 Glucose [Mass/Vol] 121 mg/dL Critically high 74-106 [facility] Comment on above: Performed By: #### Rosmery Vidal, CMP, PHOS #### [facility] [address] [address] [address] Dk Mahoney PROF 14(COMP METB)on 023 Albumin [Mass/Vol] 2.4 g/dL Critically low 3.4-5.0 [facility] Comment on above: Performed By: #### M G, CMP, PHOS #### [facility] [address] [address] [address] Dk Mahoney Albumin/Globulin [Mass ratio] 0.6 {ratio} Normal [facility] Comment on above: Performed By: #### M G, CMP, PHOS #### [facility] [address] [address] [address] Dk Mahoney ALP [Catalytic activity/Vol] 128 U/L Critically high 46-116 [facility] Comment on above: Performed By: #### M G, CMP, PHOS #### [facility] [address] [address] [address] Dk Mahoney ALT [Catalytic activity/Vol] 49 U/L Normal 16-63 [facility] Comment on above: Performed By: #### M G, CMP, PHOS #### [facility] [address] [address] [address] Dk Mahoney Anion gap [Moles/Vol] 16.3 mmol/L Normal [facility] Comment on above: Performed By: #### M G, CMP, PHOS #### [facility] [address] [address] [address] Dk Mahoney AST [Catalytic activity/Vol] 17 U/L Normal 15-37 [facility] Comment on above: Performed By: #### M G, CMP, PHOS #### [facility] [address] [address] [address] Dk Mahoney Bilirubin [Mass/Vol] 0.3 mg/dL Normal 0.2-1.0 [facility] Comment on above: Performed By: #### M G, CMP, PHOS #### [facility] [address] [address] [address] Dk Mahoney Calcium [Mass/Vol] 9.2 mg/dL Normal 8.5-10.1 [facility] Comment on above: Performed By: #### M SHIREEN Vidal, PHOS #### [facility] [address] [place] [address] Dr. Dk Mahoney Chloride [Moles/Vol] 105 mmol/L Normal 98-107 [facility] Comment on above: Performed By: #### Rosmery Vidal CMP, PHOS #### [facility] [address] [place] [address] Dr. Dk Mahoney CO2 [Moles/Vol] 20.3 mmol/L Critically low 21.0-32.0 [facility] Comment on above: Performed By: #### Rosmery Vidal CMP, PHOS #### [facility] [address] [place] [address] Dr. Dk Mahoney Creatinine [Mass/Vol] 5.59 mg/dL Critically high 0.70-1.30 [facility] Comment on above: Performed By: #### Rosmery Vidal CMP, PHOS #### [facility] [address] [place] [address] Dr. Dk Mahoney EGFR-AF TRISTANIAN 12 mL/min/1.73m2 Critically low >=60 [facility] Comment on above: Performed By: #### Rosmery Vidal CMP, PHOS #### [facility] [address] [place] [address] Dr. Dk Mahoney EGFR-NON AF TRISTANIAN 10 mL/min/1.73m2 Critically low >=60 [facility] Comment on above: Performed By: #### Rosmery Vidal CMP, PHOS #### [facility] [address] [place] [address] Dr. Dk Mahoney Globulin (S) [Mass/Vol] 3.7 g/dL Normal [facility] Comment on above: Performed By: #### M Young CMP, PHOS #### [facility] [address] [place] [address] Dr. Dk Mahoney Glucose [Mass/Vol] 191 mg/dL Critically high 74-106 [facility] Comment on above: Performed By: #### Rosmery Vidal CMP, PHOS #### [facility] [address] [place] [address] Dr. Dk Mahoney Potassium [Moles/Vol] 4.5 mmol/L Normal 3.5-5.1 [facility] Comment on above: Performed By: #### M G, CMP, PHOS #### [facility] [address] [place] [address] Dr. Dk Mahoney Protein [Mass/Vol] 6.1 g/dL Critically low 6.4-8.2 [facility] Comment on above: Performed By: #### M G, CMP, PHOS #### [facility] [address] [place] [address] Dr. Dk Mahoney Sodium [Moles/Vol] 137 mmol/L Normal 136-145 [facility] Comment on above: Performed By: #### M G, CMP, PHOS #### [facility] [address] [place] [address] Dr. Dk Mahoney Urea nitrogen [Mass/Vol] 83.0 mg/dL Critically high 7.0-18.0 [facility] Comment on above: Performed By: #### M G, CMP, PHOS #### [facility] [address] [place] [address] Dr. Dk Mahoney Urea nitrogen/Creatinine [Mass ratio] 14.8 mg/mg Normal [facility] Comment on above: Performed By: #### M G, CMP, PHOS #### [facility] [address] [place] [address] Dr. Dk Maohney CBC AUTO DIFFon 07-06-2022 BASO # 0.1 103/ul Normal 0.0-0.1 [facility] Comment on above: Performed By: #### M G, CMP, PHOS #### [facility] [address] [place] [address] Dr. Dk Mahoney Basophils/100 WBC (Bld) 0.9 % Normal 0.2-2.0 [facility] Comment on above: Performed By: #### M G, CMP, PHOS #### [facility] [address] [place] [address] Dr. Dk Mahoney EO # 0.2 103/ul Normal 0.0-0.7 [facility] Comment on above: Performed By: #### M G, CMP, PHOS #### [facility] [address] [place] [address] Dr. Dk Mahoney Eosinophils/100 WBC (Bld) 2.9 % Normal 0.9-7.0 [facility] Comment on above: Performed By: #### M G, CMP, PHOS #### [facility] [address] [place] [address] Dr. Dk Mahoney Erythrocyte distribution width (RBC) [Ratio] 15.0 % Normal 11.0-15.0 [facility] Comment on above: Performed By: #### M G, CMP, PHOS #### [facility] [address] [place] [address] Dr. Dk Mahoney Hematocrit (Bld) [Volume fraction] 24.2 % Critically low 42.0-54.0 [facility] Comment on above: Performed By: #### M G, CMP, PHOS #### [facility] [address] [place] [address] Dr. Dk Mahoney Hemoglobin (Bld) [Mass/Vol] 8.0 g/dL Critically low 14.0-18.0 [facility] Comment on above: Performed By: #### M G, CMP, PHOS #### [facility] [address] [place] [address] Dr. Dk Mahoney IG # 0.06 10e3/ul Critically high 0.00-0.03 [facility] Comment on above: Performed By: #### M G, CMP, PHOS #### [facility] [address] [place] [address] Dr. Dk Mahoney IG % 0.9 % Critically high 0.0-0.5 [facility] Comment on above: Performed By: #### M G, CMP, PHOS #### [facility] [address] [place] [address] Dr. Dk Mahoney LYMPH # 1.0 103/ul Critically low 1.2-3.8 [facility] Comment on above: Performed By: #### M G, CMP, PHOS #### [facility] [address] [address] [address] Dk Mahoney Lymphocytes/100 WBC (Bld) 14.6 % Critically low 20.5-60.0 [facility] Comment on above: Performed By: #### M G, CMP, PHOS #### [facility] [address] [address] [address] Dk Mahoney MANUAL DIFF REQ NO Normal [facility] Comment on above: Performed By: #### M G, CMP, PHOS #### [facility] [address] [place] [address] Dr. Dk Mahoney MCH (RBC) [Entitic mass] 30.4 pg Normal 25.9-34.0 [facility] Comment on above: Performed By: #### M G, CMP, PHOS #### [facility] [address] [place] [address] Dr. Dk Mahoney MCHC (RBC) [Mass/Vol] 33.1 g/dL Normal 29.9-35.2 [facility] Comment on above: Performed By: #### M G, CMP, PHOS #### [facility] [address] [place] [address] Dr. Dk Mahoney MCV (RBC) [Entitic vol] 92.0 fL Normal 80.0-94.0 [facility] Comment on above: Performed By: #### M G, CMP, PHOS #### [facility] [address] [place] [address] Dr. Dk Mahoney MONO # 0.7 103/ul Normal 0.3-0.8 [facility] Comment on above: Performed By: #### M G, CMP, PHOS #### [facility] [address] [place] [address] Dr. Dk Mahoney Monocytes/100 WBC (Bld) 11.1 % Normal 1.7-12.0 [facility] Comment on above: Performed By: #### M G, CMP, PHOS #### [facility] [address] [place] [address] Dr. Dk Mahoney NEUT # 4.5 103/ul Normal 1.4-6.5 [facility] Comment on above: Performed By: #### M Young CMP, PHOS #### [facility] [address] [address] [address] Dk Mahoney Neutrophils/100 WBC (Bld) 69.6 % Normal 43.0-75.0 [facility] Comment on above: Performed By: #### M Young CMP, PHOS #### [facility] [address] [place] [address] Dr. Dk Mahoney Platelet mean volume (Bld) [Entitic vol] 9.4 fL Critically low 9.5-13.5 [facility] Comment on above: Performed By: #### Rosmery Vidal CMP, PHOS #### [facility] [address] [place] [address] Dr. Dk Mahoney PLT 159 103/ul Normal 150-450 [facility] Comment on above: Performed By: #### M Young CMP, PHOS #### [facility] [address] [place] [address] Dr. Dk Mahoney RBC 2.63 106/ul Critically low 4.70-6.10 [facility] Comment on above: Performed By: #### M Young CMP, PHOS #### [facility] [address] [place] [address] Dr. Dk Mahoney WBC 6.5 103/ul Normal 4.0-11.0 [facility] Comment on above: Performed By: #### M Young CMP, PHOS #### [facility] [address] [place] [address] Dr. Dk Mahoney BASO # 0.0 103/ul Normal 0.0-0.1 [facility] Comment on above: Performed By: #### C BC #### [facility] [address] [place] [address] Dr. Dk Mahoney Basophils/100 WBC (Bld) 0.6 % Normal 0.2-2.0 [facility] Comment on above: Performed By: #### C BC #### [facility] [address] [address] [address] Dk Mahoney EO # 0.2 103/ul Normal 0.0-0.7 [facility] Comment on above: Performed By: #### C BC #### [facility] [address] [place] [address] Dr. Dk Mahoney Eosinophils/100 WBC (Bld) 3.2 % Normal 0.9-7.0 [facility] Comment on above: Performed By: #### C BC #### [facility] [address] [place] [address] Dr. Dk Mahoney Erythrocyte distribution width (RBC) [Ratio] 15.2 % Critically high 11.0-15.0 [facility] Comment on above: Performed By: #### C BC #### [facility] [address] [place] [address] Dr. Dk Mahoney Hematocrit (Bld) [Volume fraction] 21.4 % Critically low 42.0-54.0 [facility] Comment on above: Performed By: #### C BC #### [facility] [address] [place] [address] Dr. Dk Mahoney Hemoglobin (Bld) [Mass/Vol] 6.9 g/dL Critically low 14.0-18.0 [facility] Comment on above: Performed By: #### C BC #### [facility] [address] [place] [address] Dr. Dk Mahoney IG # 0.05 10e3/ul Critically high 0.00-0.03 [facility] Comment on above: Performed By: #### C BC #### [facility] [address] [place] [address] Dr. Dk Mahoney IG % 0.8 % Critically high 0.0-0.5 [facility] Comment on above: Performed By: #### C BC #### [facility] [address] [place] [address] Dr. Dk Mahoney LYMPH # 0.9 103/ul Critically low 1.2-3.8 [facility] Comment on above: Performed By: #### C BC #### [facility] [address] [place] [address] Dr. Dk Mahoney Lymphocytes/100 WBC (Bld) 13.8 % Critically low 20.5-60.0 [facility] Comment on above: Performed By: #### C BC #### [facility] [address] [place] [address] Dr. Dk Mahoney MANUAL DIFF REQ NO Normal [facility] Comment on above: Performed By: #### C BC #### [facility] [address] [place] [address] Dr. Dk Mahoney MCH (RBC) [Entitic mass] 29.9 pg Normal 25.9-34.0 [facility] Comment on above: Performed By: #### C BC #### [facility] [address] [place] [address] Dr. Dk Mahoney MCHC (RBC) [Mass/Vol] 32.2 g/dL Normal 29.9-35.2 [facility] Comment on above: Performed By: #### C BC #### [facility] [address] [place] [address] Dr. Dk Mahoney MCV (RBC) [Entitic vol] 92.6 fL Normal 80.0-94.0 [facility] Comment on above: Performed By: #### C BC #### [facility] [address] [place] [address] Dr. Dk Mahoney MONO # 0.8 103/ul Normal 0.3-0.8 [facility] Comment on above: Performed By: #### C BC #### [facility] [address] [place] [address] Dr. Dk Mahoney Monocytes/100 WBC (Bld) 11.4 % Normal 1.7-12.0 [facility] Comment on above: Performed By: #### C BC #### [facility] [address] [place] [address] Dr. Dk Mahoney NEUT # 4.6 103/ul Normal 1.4-6.5 [facility] Comment on above: Performed By: #### C BC #### [facility] [address] [address] [address] Dk Mahoney Neutrophils/100 WBC (Bld) 70.2 % Normal 43.0-75.0 [facility] Comment on above: Performed By: #### C BC #### [facility] [address] [place] [address] Dr. Dk Mahoney Platelet mean volume (Bld) [Entitic vol] 9.6 fL Normal 9.5-13.5 [facility] Comment on above: Performed By: #### C BC #### [facility] [address] [place] [address] Dr. Dk Mahoney PLT 163 103/ul Normal 150-450 [facility] Comment on above: Performed By: #### C BC #### [facility] [address] [place] [address] Dr. Dk Mahoney RBC 2.31 106/ul Critically low 4.70-6.10 [facility] Comment on above: Performed By: #### C BC #### [facility] [address] [place] [address] Dr. Dk Mahoney WBC 6.6 103/ul Normal 4.0-11.0 [facility] Comment on above: Performed By: #### C BC #### [facility] [address] [place] [address] Dr. Dk Mahoney FERRITINon 07-06-2022 Ferritin [Mass/Vol] 538.0 ng/mL Critically high 26.0-388.0 [facility] Comment on above: Performed By: #### M G, CMP, PHOS #### [facility] [address] [place] [address] Dr. Dk Mahoney IRON AND TIBCon 07-06-2022 % SATURATION 29.7 % Normal [facility] Comment on above: Performed By: #### M G, CMP, PHOS #### [facility] [address] [place] [address] Dr. Dk Mahoney Iron [Mass/Vol] 51.0 ug/dL Critically low 65.0-175.0 [facility] Comment on above: Performed By: #### M G, CMP, PHOS #### [facility] [address] [address] [address] Dk Mahoney TIBC DIRECT 172.0 ug/dL Critically low 250.0-450.0 [facility] Comment on above: Performed By: #### M Young CMP, PHOS #### [facility] [address] [address] [address] Dk Mahoney LDHon 07-06-2022 LDH 126 U/L Normal 85-227 [facility] Comment on above: Performed By: #### Rosmery Vidal CMP, PHOS #### [facility] [address] [address] [address] Dk Mahoney MAGNESIUMon 07-06-2022 Magnesium [Mass/Vol] 1.5 mg/dL Critically low 1.8-2.4 [facility] Comment on above: Performed By: #### Rosmery Vidal CMP, PHOS #### [facility] [address] [place] [address] Dr. Dk Mahoney PHOSPHORUSon 07-06-2022 Phosphate [Mass/Vol] 7.8 mg/dL Critically high 2.6-4.7 [facility] Comment on above: Performed By: #### Rosmery Vidal CMP, PHOS #### [facility] [address] [place] [address] Dr. Dk Mahoney POINT OF CARE GLUCOSEon 06-13 Glucose [Mass/Vol] 149 mg/dL Critically high 74-106 [facility] Comment on above: Performed By: #### Rosmery Vidal CMP, PHOS #### [facility] [address] [place] [address] Dr. Dk Mahoney Glucose [Mass/Vol] 145 mg/dL Critically high 74-106 [facility] Comment on above: Performed By: #### Rosmery Vidal CMP, PHOS #### [facility] [address] [place] [address] Dr. Dk Mahoney Glucose [Mass/Vol] 112 mg/dL Critically high 74-106 [facility] Comment on above: Performed By: #### Rosmery Vidal CMP, PHOS #### [facility] [address] [address] [address] Dk Mahoney Glucose [Mass/Vol] 133 mg/dL Critically high 74-106 [facility] Comment on above: Performed By: #### M G, CMP, PHOS #### [facility] [address] [address] [address] Dk Mahoney Glucose [Mass/Vol] 173 mg/dL Critically high 74-106 [facility] Comment on above: Performed By: #### P OCGLUC #### [facility] [address] [address] [address] Dk Mahoney PROF 14(COMP METB)on 023 Albumin [Mass/Vol] 2.4 g/dL Critically low 3.4-5.0 [facility] Comment on above: Performed By: #### M G, CMP, PHOS #### [facility] [address] [place] [address] Dr. Dk Mahoney Albumin/Globulin [Mass ratio] 0.6 {ratio} Normal [facility] Comment on above: Performed By: #### M G, CMP, PHOS #### [facility] [address] [address] [address] Dk Mahoney ALP [Catalytic activity/Vol] 133 U/L Critically high 46-116 [facility] Comment on above: Performed By: #### M G, CMP, PHOS #### [facility] [address] [address] [address] Dk Mahoney ALT [Catalytic activity/Vol] 58 U/L Normal 16-63 [facility] Comment on above: Performed By: #### M G, CMP, PHOS #### [facility] [address] [address] [address] Dk Mahoney Anion gap [Moles/Vol] 16.8 mmol/L Normal [facility] Comment on above: Performed By: #### M G, CMP, PHOS #### [facility] [address] [address] [address] Dk Mahoney AST [Catalytic activity/Vol] 20 U/L Normal 15-37 [facility] Comment on above: Performed By: #### M G, CMP, PHOS #### [facility] [address] [place] [address] Dr. Dk Mahoney Bilirubin [Mass/Vol] 0.2 mg/dL Normal 0.2-1.0 [facility] Comment on above: Performed By: #### M G, CMP, PHOS #### [facility] [address] [place] [address] Dr. Dk Mahoney Calcium [Mass/Vol] 9.0 mg/dL Normal 8.5-10.1 [facility] Comment on above: Performed By: #### M G, CMP, PHOS #### [facility] [address] [place] [address] Dr. Dk Mahoney Chloride [Moles/Vol] 107 mmol/L Normal 98-107 [facility] Comment on above: Performed By: #### M G, CMP, PHOS #### [facility] [address] [place] [address] Dr. Dk Mahoney CO2 [Moles/Vol] 18.2 mmol/L Critically low 21.0-32.0 [facility] Comment on above: Performed By: #### M G, CMP, PHOS #### [facility] [address] [place] [address] Dr. Dk Mahoney Creatinine [Mass/Vol] 5.80 mg/dL Critically high 0.70-1.30 [facility] Comment on above: Performed By: #### M G, CMP, PHOS #### [facility] [address] [place] [address] Dr. Dk Mahoney EGFR-AF TRISTANIAN 12 mL/min/1.73m2 Critically low >=60 [facility] Comment on above: Performed By: #### M G, CMP, PHOS #### [facility] [address] [place] [address] Dr. Dk Mahoney EGFR-NON AF TRISTANIAN 10 mL/min/1.73m2 Critically low >=60 [facility] Comment on above: Performed By: #### M G, CMP, PHOS #### [facility] [address] [place], [place] [id number] Dr. Dk Mahoney Globulin (S) [Mass/Vol] 3.9 g/dL Normal [facility] Comment on above: Performed By: #### M G, CMP, PHOS #### [facility] [address] [address] [address] Dk Mahoney Glucose [Mass/Vol] 108 mg/dL Critically high 74-106 [facility] Comment on above: Performed By: #### M G, CMP, PHOS #### [facility] [address] [address] [address] Dk Mahoney Potassium [Moles/Vol] 5.0 mmol/L Normal 3.5-5.1 [facility] Comment on above: Performed By: #### M G, CMP, PHOS #### [facility] [address] [address] [address] Dk Mahoney Protein [Mass/Vol] 6.3 g/dL Critically low 6.4-8.2 [facility] Comment on above: Performed By: #### M G, CMP, PHOS #### [facility] [address] [address] [address] Dk Mahoney Sodium [Moles/Vol] 137 mmol/L Normal 136-145 [facility] Comment on above: Performed By: #### M G, CMP, PHOS #### [facility] [address] [address] [address] Dk Mahoney Urea nitrogen [Mass/Vol] 83.0 mg/dL Critically high 7.0-18.0 [facility] Comment on above: Performed By: #### M G, CMP, PHOS #### [facility] [address] [address] [address] Dk Mahoney Urea nitrogen/Creatinine [Mass ratio] 14.3 mg/mg Normal [facility] Comment on above: Performed By: #### M G, CMP, PHOS #### [facility] [address] [address] [address] Dk Mahoney RETICULOCYTEon 07-06-2022 RETIC 4.20 % Critically high 0.60-3.10 [facility] Comment on above: Performed By: #### M G, CMP, PHOS #### [facility] [address] [place] [address] Dr. Dk Mahoney TYPE AND SCREENon 07-06-2022 TYPE AND SCREEN Negative Normal [facility] Comment on above: Performed By: #### P OCGLUC #### [facility] [address] [place] [address] Dr. Dk Mahoney URIC ACID SERUMon 07-06-2022 Urate [Mass/Vol] 6.1 mg/dL Normal 3.5-7.2 [facility] Comment on above: Performed By: #### M Young CMP, PHOS #### [facility] [address] [place] [address] Dr. Dk Mahoney VIT B12 AND FOLATEon 023 Cobalamin (Vitamin B12) [Mass/Vol] 686.0 pg/mL Normal 193.0-986.0 [facility] Comment on above: Performed By: #### P OCGLUC #### [facility] [address] [place] [address] Dr. Dk Mahoney FOLATE 15.50 ng/mL Normal 8.60-58.90 [facility] Comment on above: Performed By: #### P OCGLUC #### [facility] [address] [place] [address] Dr. Dk Mahoney CBC AUTO DIFFon 07-05-2022 BASO # 0.1 103/ul Normal 0.0-0.1 [facility] Comment on above: Performed By: #### M G, CMP, PHOS #### [facility] [address] [place] [address] Dr. Dk Mahoney Basophils/100 WBC (Bld) 0.7 % Normal 0.2-2.0 [facility] Comment on above: Performed By: #### M G, CMP, PHOS #### [facility] [address] [place] [address] Dr. Dk Mahoney EO # 0.2 103/ul Normal 0.0-0.7 [facility] Comment on above: Performed By: #### M G, CMP, PHOS #### [facility] [address] [place] [address] Dr. Dk Mahoney Eosinophils/100 WBC (Bld) 3.1 % Normal 0.9-7.0 [facility] Comment on above: Performed By: #### M Young CMP, PHOS #### [facility] [address] [place] [address] Dr. Dk Mahoney Erythrocyte distribution width (RBC) [Ratio] 15.4 % Critically high 11.0-15.0 [facility] Comment on above: Performed By: #### M Young CMP, PHOS #### [facility] [address] [place] [address] Dr. Dk Mahoney Hematocrit (Bld) [Volume fraction] 23.9 % Critically low 42.0-54.0 [facility] Comment on above: Performed By: #### Rosmery Vidal CMP, PHOS #### [facility] [address] [place] [address] Dr. Dk Mahoney Hemoglobin (Bld) [Mass/Vol] 7.7 g/dL Critically low 14.0-18.0 [facility] Comment on above: Performed By: #### Rosmery Vidal CMP, PHOS #### [facility] [address] [place] [address] Dr. Dk Mahoney IG # 0.05 10e3/ul Critically high 0.00-0.03 [facility] Comment on above: Performed By: #### Rosmery Vidal CMP, PHOS #### [facility] [address] [place] [address] Dr. Dk Mahoney IG % 0.7 % Critically high 0.0-0.5 [facility] Comment on above: Performed By: #### M Young CMP, PHOS #### [facility] [address] [place] [address] Dr. Dk Mahoney LYMPH # 1.0 103/ul Critically low 1.2-3.8 [facility] Comment on above: Performed By: #### M Young CMP, PHOS #### [facility] [address] [place], [place] [id number] Dr. Dk Mahoney Lymphocytes/100 WBC (Bld) 12.8 % Critically low 20.5-60.0 [facility] Comment on above: Performed By: #### M G, CMP, PHOS #### [facility] [address] [place] [address] Dr. Dk Mahoney MANUAL DIFF REQ NO Normal [facility] Comment on above: Performed By: #### M G, CMP, PHOS #### [facility] [address] [place] [address] Dr. Dk Mahoney MCH (RBC) [Entitic mass] 30.0 pg Normal 25.9-34.0 [facility] Comment on above: Performed By: #### M G, CMP, PHOS #### [facility] [address] [place] [address] Dr. Dk Mahoney MCHC (RBC) [Mass/Vol] 32.2 g/dL Normal 29.9-35.2 [facility] Comment on above: Performed By: #### M G, CMP, PHOS #### [facility] [address] [place] [address] Dr. Dk Mahoney MCV (RBC) [Entitic vol] 93.0 fL Normal 80.0-94.0 [facility] Comment on above: Performed By: #### M G, CMP, PHOS #### [facility] [address] [place] [address] Dr. Dk Mahoney MONO # 0.8 103/ul Normal 0.3-0.8 [facility] Comment on above: Performed By: #### M G, CMP, PHOS #### [facility] [address] [place] [address] Dr. Dk Mahoney Monocytes/100 WBC (Bld) 10.2 % Normal 1.7-12.0 [facility] Comment on above: Performed By: #### M G, CMP, PHOS #### [facility] [address] [place] [address] Dr. Dk Mahoney NEUT # 5.6 103/ul Normal 1.4-6.5 [facility] Comment on above: Performed By: #### M G, CMP, PHOS #### [facility] [address] [address] [address] Dk Mahoney Neutrophils/100 WBC (Bld) 72.5 % Normal 43.0-75.0 [facility] Comment on above: Performed By: #### M G, CMP, PHOS #### [facility] [address] [address] [address] Dk Mahoney Platelet mean volume (Bld) [Entitic vol] 9.8 fL Normal 9.5-13.5 [facility] Comment on above: Performed By: #### M G, CMP, PHOS #### [facility] [address] [place] [address] Dr. Dk Mahoney PLT 203 103/ul Normal 150-450 [facility] Comment on above: Performed By: #### M G, CMP, PHOS #### [facility] [address] [address] [address] Dk Mahoney RBC 2.57 106/ul Critically low 4.70-6.10 [facility] Comment on above: Performed By: #### M G, CMP, PHOS #### [facility] [address] [place] [address] Dr. Dk Mahoney WBC 7.7 103/ul Normal 4.0-11.0 [facility] Comment on above: Performed By: #### M G, CMP, PHOS #### [facility] [address] [place] [address] ABD/PELVIS WO CONon [...] MARQUES AMAYA Date: 2022-07-05 18:21 Normal [facility] Covid-19 PCR ([facility])on 06-13 SARS-CoV-2 (COVID-19) RNA JASON+probe Ql (Unsp spec) Not detected Normal NOT DETECTED [facility] Comment on above: Result Comment: When diagnostic [...] for this test is supported by the [place] of Health and Human Service's declaration that [...] used). Performed By: #### C BC #### [facility] [address] [place] [address] Dr. Dk Mahoney ER URINE PROFILEon 3 Bilirubin Ql (U) Negative Normal NEGATIVE [facility] Comment on above: Performed By: #### M G CMP, PHOS #### [facility] [address] [place] [address] Dr. Dk Mahoney Clarity (U) CLEAR Normal CLEAR [facility] Comment on above: Performed By: #### M Young CMP, PHOS #### [facility] [address] [place] [address] Dr. Dk Mahoney Color (U) YELLOW Normal YELLOW [facility] Comment on above: Performed By: #### M G CMP, PHOS #### [facility] [address] [place] [address] Dr. Dk Mahoney ERUAHD A micrscopic examination will be performed if indicated. Normal [facility] Comment on above: Performed By: #### M G, CMP, PHOS #### [facility] [address] [place] [address] Dr. Dk Mahoney Glucose Ql (U) 100 mg/dl Abnormal NEGATIVE [facility] Comment on above: Performed By: #### M G, CMP, PHOS #### [facility] [address] [place] [address] Dr. Dk Mahoney Hemoglobin Ql (U) MODERATE Abnormal NEGATIVE [facility] Comment on above: Performed By: #### M G, CMP, PHOS #### [facility] [address] [place] [address] Dr. Dk Mahoney Ketones Ql (U) Negative Normal NEGATIVE [facility] Comment on above: Performed By: #### M G, CMP, PHOS #### [facility] [address] [place] [address] Dr. Dk Mahoney LEUKOCYTES LARGE Abnormal NEGATIVE [facility] Comment on above: Performed By: #### M G, CMP, PHOS #### [facility] [address] [address] [address] Dk Mahoney Nitrite Ql (U) Negative Normal NEGATIVE [facility] Comment on above: Performed By: #### M G, CMP, PHOS #### [facility] [address] [place] [address] Dr. Dk Mahoney pH (U) 7.0 [pH] Normal 5-9 [facility] Comment on above: Performed By: #### M G, CMP, PHOS #### [facility] [address] [place] [address] Dr. Dk Mahoney Protein (U) [Mass/Vol] 30 mg/dL Abnormal NEGATIVE/ TRACE [facility] Comment on above: Performed By: #### M G, CMP, PHOS #### [facility] [address] [place] [address] Dr. Dk Mahoney SPEC GRAVITY 1.010 Normal 1.005-<=1.[address] [facility] Comment on above: Performed By: #### M G, CMP, PHOS #### [facility] [address] [place] [address] Dr. Dk Mahoney UR MICRO IND INDICATED Normal [facility] Comment on above: Performed By: #### M G, CMP, PHOS #### [facility] [address] [place] [address] Dr. Dk Mahoney Urobilinogen Qn (U) 0.2 {Ramiro'U}/dL Normal 0.2 - 1. 0 [facility] Comment on above: Performed By: #### M G, CMP, PHOS #### [facility] [address] [address] [address] Dk Mahoney PROF 14(COMP METB)on 023 Albumin [Mass/Vol] 2.7 g/dL Critically low 3.4-5.0 [facility] Comment on above: Performed By: #### C BC #### [facility] [address] [place] [address] Dr. Dk Mahoney Albumin/Globulin [Mass ratio] 0.6 {ratio} Normal [facility] Comment on above: Performed By: #### C BC #### [facility] [address] [place] [address] Dr. Dk Mahoney ALP [Catalytic activity/Vol] 148 U/L Critically high 46-116 [facility] Comment on above: Performed By: #### C BC #### [facility] [address] [place] [address] Dr. Dk Mahoney ALT [Catalytic activity/Vol] 70 U/L Critically high 16-63 [facility] Comment on above: Performed By: #### C BC #### [facility] [address] [place] [address] Dr. Dk Mahoney Anion gap [Moles/Vol] 16.7 mmol/L Normal [facility] Comment on above: Performed By: #### C BC #### [facility] [address] [place] [address] Dr. Dk Mahoney AST [Catalytic activity/Vol] 26 U/L Normal 15-37 [facility] Comment on above: Performed By: #### C BC #### [facility] [address] [place] [address] Dr. Dk Mahoney Bilirubin [Mass/Vol] 0.4 mg/dL Normal 0.2-1.0 [facility] Comment on above: Performed By: #### C BC #### [facility] [address] [place] [address] Dr. Dk Mahoney Calcium [Mass/Vol] 9.2 mg/dL Normal 8.5-10.1 [facility] Comment on above: Performed By: #### C BC #### [facility] [address] [address] [address] Dk Mahoney Chloride [Moles/Vol] 105 mmol/L Normal 98-107 [facility] Comment on above: Performed By: #### C BC #### [facility] [address] [address] [address] Dk Mahoney CO2 [Moles/Vol] 18.1 mmol/L Critically low 21.0-32.0 [facility] Comment on above: Performed By: #### C BC #### [facility] [address] [address] [address] Dk Mahoney Creatinine [Mass/Vol] 5.81 mg/dL Critically high 0.70-1.30 [facility] Comment on above: Performed By: #### C BC #### [facility] [address] [place] [address] Dr. Dk Mahoney EGFR-AF TRISTANIAN 12 mL/min/1.73m2 Critically low >=60 [facility] Comment on above: Performed By: #### C BC #### [facility] [address] [address] [address] Dk Mahoney EGFR-NON AF TRISTANIAN 10 mL/min/1.73m2 Critically low >=60 [facility] Comment on above: Performed By: #### C BC #### [facility] [address] [address] [address] Dk Mahoney Globulin (S) [Mass/Vol] 4.3 g/dL Normal [facility] Comment on above: Performed By: #### C BC #### [facility] [address] [address] [address] Dk Mahoney Glucose [Mass/Vol] 138 mg/dL Critically high 74-106 [facility] Comment on above: Performed By: #### C BC #### [facility] [address] [address] [address] Dk Mahoney Potassium [Moles/Vol] 4.8 mmol/L Normal 3.5-5.1 [facility] Comment on above: Performed By: #### C BC #### [facility] [address] [address] [address] Dk Mahoney Protein [Mass/Vol] 7.0 g/dL Normal 6.4-8.2 [facility] Comment on above: Performed By: #### C BC #### [facility] [address] [address] [address] Dk Mahoney Sodium [Moles/Vol] 135 mmol/L Critically low 136-145 [facility] Comment on above: Performed By: #### C BC #### [facility] [address] [address] [address] Dk Mahoney Urea nitrogen [Mass/Vol] 83.0 mg/dL Critically high 7.0-18.0 [facility] Comment on above: Performed By: #### C BC #### [facility] [address] [address] [address] Dk Mahoney Urea nitrogen/Creatinine [Mass ratio] 14.3 mg/mg Normal [facility] Comment on above: Performed By: #### C BC #### [facility] [address] [address] [address] Dk Mahoney TROPONIN, HIGH SENSITIVITYon 07-05-2022 HSTROP 21.4 pg/mL Normal 4.0-76.1 [facility] Comment on above: Result Comment: CUT- OFF POINTS HAVE BEEN ESTABLISHED BASED ON THE FOURTH UNIVERSAL DEFINITIONS OF MYOCARDIAL INFARCTION. THE UPPER REFERENCE LIMIT (URL) OF TROPONIN, DEFINED THE 99TH PERCENTILE OF cTnI DISTRIBUTION IN A REFERENCE POPULATION, HAS BEEN CONFIRMED THE DECISION THRESHOLD FOR [place] DIAGNOSIS. Performed By: #### C BC #### [facility] [address] [address] [address] Dk Mahoney URINE MICROSCOPIC ONLYon BACTERIA MODERATE Abnormal NONE SEEN [facility] Comment on above: Performed By: #### M G, CMP, PHOS #### [facility] [address] [id number] [address] Dk Mahoney Bacteria identified Cx Nom (U) INDICATED Normal [facility] Comment on above: Performed By: #### M G, CMP, PHOS #### [facility] [address] [place] [address] Dr. Dk Mahoney CAST NONE SEEN Normal NONE SEEN [facility] Comment on above: Performed By: #### M G, CMP, PHOS #### [facility] [address] [place] [address] Dr. Dk Mahoney Crystals LM Nom (Urine sed) NONE SEEN Normal NONE SEEN [facility] Comment on above: Performed By: #### M G, CMP, PHOS #### [facility] [address] [place] [address] Dr. Dk Mahoney Epithelial cells LM Ql (Urine sed) FEW Abnormal NONE SEEN /RARE [facility] Comment on above: Performed By: #### M G, CMP, PHOS #### [facility] [address] [place] [address] Dr. Dk Mahoney MUCOUS NONE SEEN Normal NONE SEEN [facility] Comment on above: Performed By: #### M G, CMP, PHOS #### [facility] [address] [place] [address] Dr. Dk Mahoney RBC 10-20 Abnormal 0-2 [facility] Comment on above: Performed By: #### M G, CMP, PHOS #### [facility] [address] [place] [address] Dr. Dk Mahoney WBC 75-100 Abnormal NONE SEEN [facility] Comment on above: Performed By: #### M G, CMP, PHOS #### [facility] [address] [place] [address] Dr. Dk Mahoney YEAST PRESENT Abnormal NONE SEEN [facility] Comment on above: Performed By: #### M G, CMP, PHOS #### [facility] [address] [place] [address] Dr. Dk Mahoney PRBC LEUKOREDUCEDon 05-11-19 23 PRBC LEUKOREDUCED Cross Match Result Compatible Unit Blood Type O Neg Unit Number [id number] Status Information Transfused Product ID Red Blood Cells Product Code [id number] Normal [facility] Comment on above: Performed By: #### P RBC #### [facility] [address] [place] [address] Dr. Dk Mahoney ABO AND RH TYPEon 05-04-2022 ABO and Rh group Nom (Bld) ABO Rh Typing O Rh Negative Normal [facility] Comment on above: Performed By: #### A NOE TNS #### [facility] [address] [place] [address] Dr. Dk Mahoney BNPon 05-04-2022 Natriuretic peptide B (Bld) [Mass/Vol] 53511.0 pg/mL Critically high <=900.0 [facility] Comment on above: Performed By: #### M G, CMP, PHOS #### [facility] [address] [place] [address] Dr. Dk Mahoney CBC AUTO DIFFon 05-04-2022 BASO # 0.1 103/ul Normal 0.0-0.1 [facility] Comment on above: Performed By: #### M G, CMP, PHOS #### [facility] [address] [place] [address] Dr. Dk Mahoney Basophils/100 WBC (Bld) 0.7 % Normal 0.2-2.0 [facility] Comment on above: Performed By: #### M G, CMP, PHOS #### [facility] [address] [place] [address] Dr. Dk Mahoney EO # 0.3 103/ul Normal 0.0-0.7 [facility] Comment on above: Performed By: #### M G, CMP, PHOS #### [facility] [address] [place] [address] Dr. Dk Mahoney Eosinophils/100 WBC (Bld) 4.4 % Normal 0.9-7.0 [facility] Comment on above: Performed By: #### M G, CMP, PHOS #### [facility] [address] [place] [address] Dr. Dk Mahoney Erythrocyte distribution width (RBC) [Ratio] 15.4 % Critically high 11.0-15.0 [facility] Comment on above: Performed By: #### M G, CMP, PHOS #### [facility] [address] [place] [address] Dr. Dk Mahoney Hematocrit (Bld) [Volume fraction] 21.6 % Critically low 42.0-54.0 [facility] Comment on above: Performed By: #### M G, CMP, PHOS #### [facility] [address] [place] [address] Dr. Dk Mahoney Hemoglobin (Bld) [Mass/Vol] 7.4 g/dL Critically low 14.0-18.0 [facility] Comment on above: Performed By: #### M G, CMP, PHOS #### [facility] [address] [place] [address] Dr. Dk Mahoney IG # 0.03 10e3/ul Normal 0.00-0.03 [facility] Comment on above: Performed By: #### M G, CMP, PHOS #### [facility] [address] [place] [address] Dr. Dk Mahoney IG % 0.4 % Normal 0.0-0.5 [facility] Comment on above: Performed By: #### M G, CMP, PHOS #### [facility] [address] [place] [address] Dr. Dk Mahoney LYMPH # 0.9 103/ul Critically low 1.2-3.8 [facility] Comment on above: Performed By: #### M G, CMP, PHOS #### [facility] [address] [place] [address] Dr. Dk Mahoney Lymphocytes/100 WBC (Bld) 13.8 % Critically low 20.5-60.0 [facility] Comment on above: Performed By: #### M G, CMP, PHOS #### [facility] [address] [place] [address] Dr. Dk Mahoney MANUAL DIFF REQ NO Normal [facility] Comment on above: Performed By: #### M G, CMP, PHOS #### [facility] [address] [place] [address] Dr. Dk Mahonye MCH (RBC) [Entitic mass] 28.4 pg Normal 25.9-34.0 [facility] Comment on above: Performed By: #### M G, CMP, PHOS #### [facility] [address] [place] [address] Dr. Dk Mahoney MCHC (RBC) [Mass/Vol] 34.3 g/dL Normal 29.9-35.2 [facility] Comment on above: Performed By: #### M G, CMP, PHOS #### [facility] [address] [place] [address] Dr. Dk Mahoney MCV (RBC) [Entitic vol] 82.8 fL Normal 80.0-94.0 [facility] Comment on above: Performed By: #### M G, CMP, PHOS #### [facility] [address] [place] [address] Dr. Dk Mahoney MONO # 0.6 103/ul Normal 0.3-0.8 [facility] Comment on above: Performed By: #### M G, CMP, PHOS #### [facility] [address] [place] [address] Dr. Dk Mahoney Monocytes/100 WBC (Bld) 8.8 % Normal 1.7-12.0 [facility] Comment on above: Performed By: #### M G, CMP, PHOS #### [facility] [facility] [address] [place] [address] Dr. Dk Mahoney NEUT # 4.9 103/ul Normal 1.4-6.5 [facility] Comment on above: Performed By: #### M G, CMP, PHOS #### [facility] [address] [place] [address] Dr. Dk Mahoney Neutrophils/100 WBC (Bld) 71.9 % Normal 43.0-75.0 [facility] Comment on above: Performed By: #### M G, CMP, PHOS #### [facility] [address] [place] [address] Dr. Dk Mahoney Platelet mean volume (Bld) [Entitic vol] 9.3 fL Critically low 9.5-13.5 [facility] Comment on above: Performed By: #### M G, CMP, PHOS #### [facility] [address] [address] [address] Dk Mahoney PLT 178 103/ul Normal 150-450 [facility] Comment on above: Performed By: #### M SHIREEN Vidal, PHOS #### [facility] [address] [address] [address] Dk Mahoney RBC 2.61 106/ul Critically low 4.70-6.10 [facility] Comment on above: Performed By: #### M SHIREEN Vidal, PHOS #### [facility] [address] [address] [address] Dk Mahoney WBC 6.8 103/ul Normal 4.0-11.0 [facility] Comment on above: Performed By: #### M SHIREEN Vidal PHOS #### [facility] [address] [place] [address] Dr. Dk Mahoney Covid-19 PCR ([facility])on 04-15 SARS-CoV-2 (COVID-19) RNA JASON+probe Ql (Unsp spec) Not detected Normal NOT DETECTED [facility] Comment on above: Result Comment: When diagnostic [...] for this test is supported by the Mechanic Assistant of Health and Human Service's declaration [...] used). Performed By: #### P OCGLUC #### [facility] [address] [address] [address] Dk Mahoney PROF CHEM 8 (BAS METB)on 01- 21-2023 Anion gap [Moles/Vol] 14.7 mmol/L Normal Th [facility] Comment on above: Performed By: #### M Young CMP, PHOS #### [facility] [address] [address] [address] Dk Mahoney Calcium [Mass/Vol] 9.3 mg/dL Normal 8.5-10.1 [facility] Comment on above: Performed By: #### M Young CMP, PHOS #### [facility] [address] [address] [address] Dk Mahoney Chloride [Moles/Vol] 109 mmol/L Critically high 98-107 [facility] Comment on above: Performed By: #### M Young CMP, PHOS #### [facility] [address] [address] [address] Dk Mahoney CO2 [Moles/Vol] 21.3 mmol/L Normal 21.0-32.0 [facility] Comment on above: Performed By: #### Rosmery Vidal CMP, PHOS #### [facility] [address] [place] [address] Dr. Dk Mahoney Creatinine [Mass/Vol] 4.61 mg/dL Critically high 0.70-1.30 [facility] Comment on above: Performed By: #### Rosmery Vidal CMP, PHOS #### [facility] [address] [place] [address] Dr. Dk Mahoney EGFR-AF TRISTANIAN 15 mL/min/1.73m2 Critically low >=60 [facility] Comment on above: Performed By: #### M Young, CMP, PHOS #### [facility] [address] [address] [address] Dk Mahoney EGFR-NON AF TRISTANIAN 13 mL/min/1.73m2 Critically low >=60 [facility] Comment on above: Performed By: #### M Young, CMP, PHOS #### [facility] [address] [address] [address] Dk Mahoney Glucose [Mass/Vol] 200 mg/dL Critically high 74-106 [facility] Comment on above: Performed By: #### M Young, CMP, PHOS #### [facility] [address] [address] [address] Dk Mahoney Potassium [Moles/Vol] 5.0 mmol/L Normal 3.5-5.1 [facility] Comment on above: Performed By: #### M G, CMP, PHOS #### [facility] [address] [address] [address] Dk Mahoney Sodium [Moles/Vol] 140 mmol/L Normal 136-145 [facility] Comment on above: Performed By: #### M G, CMP, PHOS #### [facility] [address] [address] [address] Dk Mahoney Urea nitrogen [Mass/Vol] 64.0 mg/dL Critically high 7.0-18.0 [facility] Comment on above: Performed By: #### M G, CMP, PHOS #### [facility] [address] [address] [address] Dk Mahoney Urea nitrogen/Creatinine [Mass ratio] 13.9 mg/mg Normal [facility] Comment on above: Performed By: #### M G, CMP, PHOS #### [facility] [address] [address] [address] Dk Mahoney TROPONIN, HIGH SENSITIVITYon 05-04-2022 HSTROP 29.4 pg/mL Normal 4.0-76.1 [facility] Comment on above: Result Comment: CUT- OFF POINTS HAVE BEEN ESTABLISHED BASED ON THE FOURTH UNIVERSAL DEFINITIONS OF MYOCARDIAL INFARCTION. THE UPPER REFERENCE LIMIT (URL) OF TROPONIN, DEFINED THE 99TH PERCENTILE OF cTnI DISTRIBUTION IN A REFERENCE POPULATION, HAS BEEN CONFIRMED THE DECISION THRESHOLD FOR [place] DIAGNOSIS. Performed By: #### M G, CMP, PHOS #### [facility] [address] [address] [address] Dk Mahoney TYPE AND SCREENon 05-04-2022 TYPE AND SCREEN Negative Normal [facility] Comment on above: Performed By: #### A NOE, TNS #### [facility] [address] [address] [address] Dk Mahoney US ROWAN DOP LEG [...] by: ROBERTO HEBERT Date: 2022-05-04 14:[address] [facility] PRBC LEUKOREDUCEDon 04-29-19 PRBC LEUKOREDUCED Cross Match Result Compatible Unit Blood Type O Neg Unit Number [id number] Status Information Transfused Product ID Red Blood Cells Product Code [id number] Normal [facility] Comment on above: Performed By: #### P RBC #### [facility] [address] [place] [address] Dr. Dk Mahoney ABO RH RETYPEon 04-19-2022 ABO and Rh group Nom (Bld) DONE Normal [facility] Comment on above: Performed By: #### M G, CMP, PHOS #### [facility] [address] [place] [address] Dr. Dk Mahoney CBC AUTO DIFFon 04-19-2022 BASO # 0.1 103/ul Normal 0.0-0.1 [facility] Comment on above: Performed By: #### M G, CMP, PHOS #### [facility] [address] [place] [address] Dr. Dk Mahoney Basophils/100 WBC (Bld) 0.8 % Normal 0.2-2.0 [facility] Comment on above: Performed By: #### M G, CMP, PHOS #### [facility] [address] [place] [address] Dr. Dk Mahoney EO # 0.5 103/ul Normal 0.0-0.7 [facility] Comment on above: Performed By: #### M G, CMP, PHOS #### [facility] [address] [place] [address] Dr. Dk Mahoney Eosinophils/100 WBC (Bld) 6.9 % Normal 0.9-7.0 [facility] Comment on above: Performed By: #### M SHIREEN Vidal, PHOS #### [facility] [address] [address] [address] Dk Mahoney Erythrocyte distribution width (RBC) [Ratio] 16.3 % Critically high 11.0-15.0 [facility] Comment on above: Performed By: #### M Young, CMP, PHOS #### [facility] [address] [address] [address] Dk Mahoney Hematocrit (Bld) [Volume fraction] 20.8 % Critically low 42.0-54.0 [facility] Comment on above: Performed By: #### M Young CMP, PHOS #### [facility] [address] [place] [address] Dr. Dk Mahoney Hemoglobin (Bld) [Mass/Vol] 6.8 g/dL Critically low 14.0-18.0 [facility] Comment on above: Performed By: #### M Young, CMP, PHOS #### [facility] [address] [place] [address] Dr. Dk Mahoney IG # 0.04 10e3/ul Critically high 0.00-0.03 [facility] Comment on above: Performed By: #### M Young CMP, PHOS #### [facility] [address] [place] [address] Dr. Dk Mahoney IG % 0.6 % Critically high 0.0-0.5 [facility] Comment on above: Performed By: #### M G, CMP, PHOS #### [facility] [address] [place] [address] Dr. Dk Mahoney LYMPH # 1.0 103/ul Critically low 1.2-3.8 [facility] Comment on above: Performed By: #### M G, CMP, PHOS #### [facility] [address] [place] [address] Dr. Dk Mahoney Lymphocytes/100 WBC (Bld) 14.1 % Critically low 20.5-60.0 [facility] Comment on above: Performed By: #### M G, CMP, PHOS #### [facility] [address] [place] [address] Dr. Dk Mahoney MANUAL DIFF REQ NO Normal [facility] Comment on above: Performed By: #### M G, CMP, PHOS #### [facility] [address] [place] [address] Dr. Dk Mahoney MCH (RBC) [Entitic mass] 29.3 pg Normal 25.9-34.0 [facility] Comment on above: Performed By: #### M G, CMP, PHOS #### [facility] [address] [place] [address] Dr. Dk Mahoney MCHC (RBC) [Mass/Vol] 32.7 g/dL Normal 29.9-35.2 [facility] Comment on above: Performed By: #### M G, CMP, PHOS #### [facility] [address] [place] [address] Dr. Dk Mahoney MCV (RBC) [Entitic vol] 89.7 fL Normal 80.0-94.0 [facility] Comment on above: Performed By: #### M G, CMP, PHOS #### [facility] [address] [place] [address] Dr. Dk Mahoney MONO # 0.7 103/ul Normal 0.3-0.8 [facility] Comment on above: Performed By: #### M G, CMP, PHOS #### [facility] [address] [place] [address] Dr. Dk Mahoney Monocytes/100 WBC (Bld) 10.1 % Normal 1.7-12.0 [facility] Comment on above: Performed By: #### M G, CMP, PHOS #### [facility] [address] [place] [address] Dr. Dk Mahoney NEUT # 4.9 103/ul Normal 1.4-6.5 [facility] Comment on above: Performed By: #### M G, CMP, PHOS #### [facility] [address] [place] [address] Dr. Dk Mahoney Neutrophils/100 WBC (Bld) 67.5 % Normal 43.0-75.0 [facility] Comment on above: Performed By: #### M SHIREEN Vidal, PHOS #### [facility] [address] [address] [address] Dk Mahoney Platelet mean volume (Bld) [Entitic vol] 9.5 fL Normal 9.5-13.5 [facility] Comment on above: Performed By: #### Rosmery Vidal CMP, PHOS #### [facility] [address] [address] [address] Dk Mahoney PLT 212 103/ul Normal 150-450 [facility] Comment on above: Performed By: #### Rosmery Vidal CMP, PHOS #### [facility] [address] [place] [address] Dr. Dk Mahoney RBC 2.32 106/ul Critically low 4.70-6.10 [facility] Comment on above: Performed By: #### Rosmery Vidal CMP, PHOS #### [facility] [address] [place] [address] Dr. Dk Mahoney WBC 7.2 103/ul Normal 4.0-11.0 [facility] Comment on above: Performed By: #### Rosmery Vidal CMP, PHOS #### [facility] [address] [place] [address] Dr. Dk Mahoney [facility]on SARS-CoV-2 (COVID-19) RNA JASON+probe Ql (Unsp spec) Not detected Normal NOT DETECTED [facility] Comment on above: Result Comment: When diagnostic [...] for this test is supported by the Mechanic Assistant of Health and Human Service's declaration [...] By: #### M SHIREEN Vidal, PHOS #### [facility] [address] [place] [address] Dr. Dk Mahoney PROF 14(COMP METB)on 023 Albumin [Mass/Vol] 2.4 g/dL Critically low 3.4-5.0 [facility] Comment on above: Performed By: #### Rosmery Vidal CMP, PHOS #### [facility] [address] [place] [address] Dr. Dk Mahoney Albumin/Globulin [Mass ratio] 0.6 {ratio} Normal [facility] Comment on above: Performed By: #### Rosmery Vidal CMP, PHOS #### [facility] [address] [place] [address] Dr. Dk Mahoney ALP [Catalytic activity/Vol] 142 U/L Critically high 46-116 [facility] Comment on above: Performed By: #### Rosmery Vidal CMP, PHOS #### [facility] [address] [place] [address] Dr. Dk Mahoney ALT [Catalytic activity/Vol] 26 U/L Normal 16-63 [facility] Comment on above: Performed By: #### Rosmery Vidal CMP, PHOS #### [facility] [address] [place] [address] Dr. Dk Mahoney Anion gap [Moles/Vol] 12.0 mmol/L Normal [facility] Comment on above: Performed By: #### Rosmery Vidal CMP, PHOS #### [facility] [address] [place] [address] Dr. Dk Mahoney AST [Catalytic activity/Vol] 19 U/L Normal 15-37 [facility] Comment on above: Performed By: #### Rosmery Vidal CMP, PHOS #### [facility] [address] [address] [address] Dk Mahoney Bilirubin [Mass/Vol] 0.3 mg/dL Normal 0.2-1.0 [facility] Comment on above: Performed By: #### M G, CMP, PHOS #### [facility] [address] [address] [address] Dk Mahoney Calcium [Mass/Vol] 9.3 mg/dL Normal 8.5-10.1 [facility] Comment on above: Performed By: #### M G, CMP, PHOS #### [facility] [address] [address] [address] Dk Mahoney Chloride [Moles/Vol] 109 mmol/L Critically high 98-107 [facility] Comment on above: Performed By: #### M G, CMP, PHOS #### [facility] [address] [address] [address] Dk Mahoney CO2 [Moles/Vol] 25.0 mmol/L Normal 21.0-32.0 [facility] Comment on above: Performed By: #### M G, CMP, PHOS #### [facility] [address] [address] [address] Dk Mahoney Creatinine [Mass/Vol] 4.83 mg/dL Critically high 0.70-1.30 [facility] Comment on above: Performed By: #### M G, CMP, PHOS #### [facility] [address] [address] [address] Dk Mahoney EGFR-AF TRISTANIAN 15 mL/min/1.73m2 Critically low >=60 [facility] Comment on above: Performed By: #### M G, CMP, PHOS #### [facility] [address] [address] [address] Dk Mahoney EGFR-NON AF TRISTANIAN 12 mL/min/1.73m2 Critically low >=60 [facility] Comment on above: Performed By: #### M G, CMP, PHOS #### [facility] [address] [address] [address] Dk Mahoney Globulin (S) [Mass/Vol] 4.1 g/dL Normal [facility] Comment on above: Performed By: #### M G, CMP, PHOS #### [facility] [address] [address] [address] Dk Mahoney Glucose [Mass/Vol] 128 mg/dL Critically high 74-106 [facility] Comment on above: Performed By: #### M G, CMP, PHOS #### [facility] [address] [address] [address] Dk Mahoney Potassium [Moles/Vol] 5.0 mmol/L Normal 3.5-5.1 [facility] Comment on above: Performed By: #### M G, CMP, PHOS #### [facility] [address] [place] [address] Dr. Dk Mahoney Protein [Mass/Vol] 6.5 g/dL Normal 6.4-8.2 [facility] Comment on above: Performed By: #### M Young CMP, PHOS #### [facility] [address] [address] [address] Dk Mahoney Sodium [Moles/Vol] 141 mmol/L Normal 136-145 [facility] Comment on above: Performed By: #### M Young CMP, PHOS #### [facility] [address] [place] [address] Dr. Dk Mahoney Urea nitrogen [Mass/Vol] 62.0 mg/dL Critically high 7.0-18.0 [facility] Comment on above: Performed By: #### M G, CMP, PHOS #### [facility] [address] [place] [address] Dr. Dk Mahoney Urea nitrogen/Creatinine [Mass ratio] 12.8 mg/mg Normal [facility] Comment on above: Performed By: #### M G CMP, PHOS #### [facility] [address] [place] [address] Dr. Dk Mahoney PROTIMEon 04-19-2022 INR Coag (PPP) [Relative time] 1.01 {INR} Normal [facility] Comment on above: Performed By: #### P OCGLUC #### [facility] [address] [place] [address] Dr. Dk Mahoney INR GUIDELINES SEE BELOW Normal [facility] Comment on above: Result Comment: JOSELO RED INR: 2.0 - 3.0 CONDITIONS NOT LISTED BELOW 2.5 - 3.5 FOR PROSTHETIC HEART VALVE REPLACEMENT 2.5 - 3.5 RECURRENT THROMBOSIS Performed By: #### P OCGLUC #### [facility] [address] [place] [address] Dr. Dk Mahoney PT Coag (PPP) [Time] 10.9 s Normal 9.0-11.6 [facility] Comment on above: Performed By: #### P OCGLUC #### [facility] [address] [place] [address] Dr. Dk Mahoney PTTon 04-19-2022 aPTT Coag (Bld) [Time] 25.8 s Normal 22.3-36.2 [facility] Comment on above: Performed By: #### P OCGLUC #### [facility] [address] [place] [address] Dr. Dk Mahoney TYPE AND SCREENon 04-19-2022 TYPE AND SCREEN Negative Normal [facility] Comment on above: Performed By: #### P OCGLUC #### [facility] [address] [place] [address] Dr. Dk Mahoney CBC AUTO DIFFon 10-24-2021 BASO # 0.1 103/ul Normal 0.0-0.1 [facility] Comment on above: Performed By: #### C BC #### [facility] [address] [place] [address] Dr. Dk Mahoney Basophils/100 WBC (Bld) 0.7 % Normal 0.2-2.0 [facility] Comment on above: Performed By: #### C BC #### [facility] [address] [place] [address] Dr. Dk Mahoney EO # 0.6 103/ul Normal 0.0-0.7 [facility] Comment on above: Performed By: #### C BC #### [facility] [address] [place] [address] Dr. Dk Mahoney Eosinophils/100 WBC (Bld) 7.7 % Critically high 0.9-7.0 [facility] Comment on above: Performed By: #### C BC #### [facility] [address] [place] [address] Dr. Dk Mahoney Erythrocyte distribution width (RBC) [Ratio] 17.2 % Critically high 11.0-15.0 [facility] Comment on above: Performed By: #### C BC #### [facility] [address] [place] [address] Dr. Dk Mahoney Hematocrit (Bld) [Volume fraction] 26.1 % Critically low 42.0-54.0 [facility] Comment on above: Performed By: #### C BC #### [facility] [address] [place] [address] Dr. Dk Mahoney Hemoglobin (Bld) [Mass/Vol] 8.1 g/dL Critically low 14.0-18.0 [facility] Comment on above: Performed By: #### C BC #### [facility] [address] [place] [address] Dr. Dk Mahoney IG # 0.06 10e3/ul Critically high 0.00-0.03 [facility] Comment on above: Performed By: #### C BC #### [facility] [address] [place] [address] Dr. Dk Mahoney IG % 0.8 % Critically high 0.0-0.5 [facility] Comment on above: Performed By: #### C BC #### [facility] [address] [place] [address] Dr. Dk Mahoney LYMPH # 1.4 103/ul Normal 1.2-3.8 [facility] Comment on above: Performed By: #### C BC #### [facility] [address] [place] [address] Dr. Dk Mahoney Lymphocytes/100 WBC (Bld) 18.1 % Critically low 20.5-60.0 [facility] Comment on above: Performed By: #### C BC #### [facility] [address] [place] [address] Dr. Dk Mahoney MANUAL DIFF REQ NO Normal [facility] Comment on above: Performed By: #### C BC #### [facility] [address] [place] [address] Dr. Dk Mahoney MCH (RBC) [Entitic mass] 25.6 pg Critically low 25.9-34.0 [facility] Comment on above: Performed By: #### C BC #### [facility] [address] [place] [address] Dr. Dk Mahoney MCHC (RBC) [Mass/Vol] 31.0 g/dL Normal 29.9-35.2 [facility] Comment on above: Performed By: #### C BC #### [facility] [address] [place] [address] Dr. Dk Mahoney MCV (RBC) [Entitic vol] 82.3 fL Normal 80.0-94.0 [facility] Comment on above: Performed By: #### C BC #### [facility] [address] [place] [address] Dr. Dk Mahoney MONO # 0.9 103/ul Critically high 0.3-0.8 [facility] Comment on above: Performed By: #### C BC #### [facility] [address] [place] [address] Dr. Dk Mahoney Monocytes/100 WBC (Bld) 12.4 % Critically high 1.7-12.0 [facility] Comment on above: Performed By: #### C BC #### [facility] [address] [place] [address] Dr. Dk Mahoney NEUT # 4.6 103/ul Normal 1.4-6.5 [facility] Comment on above: Performed By: #### C BC #### [facility] [address] [place] [address] Dr. Dk Mahoney Neutrophils/100 WBC (Bld) 60.3 % Normal 43.0-75.0 [facility] Comment on above: Performed By: #### C BC #### [facility] [address] [place] [address] Dr. Dk Mahoney Platelet mean volume (Bld) [Entitic vol] 9.5 fL Normal 9.5-13.5 [facility] Comment on above: Performed By: #### C BC #### [facility] [address] [place] [address] Dr. Dk Mahoney PLT 201 103/ul Normal 150-450 [facility] Comment on above: Performed By: #### C BC #### [facility] [address] [address] [address] Dk Mahoney RBC 3.17 106/ul Critically low 4.70-6.10 [facility] Comment on above: Performed By: #### C BC #### [facility] [address] [place] [address] Dr. Dk Mahoney WBC 7.5 103/ul Normal 4.0-11.0 [facility] Comment on above: Performed By: #### C BC #### [facility] [address] [place] [address] Dr. Dk Mahoney PROF CHEM 8 (BAS METB)on Anion gap [Moles/Vol] 12.3 mmol/L Normal [facility] Comment on above: Performed By: #### M Young CMP, PHOS #### [facility] [address] [place] [address] Dr. Dk Mahoney Calcium [Mass/Vol] 9.6 mg/dL Normal 8.5-10.1 [facility] Comment on above: Performed By: #### M G, CMP, PHOS #### [facility] [address] [place] [address] Dr. Dk Mahoney Chloride [Moles/Vol] 107 mmol/L Normal 98-107 [facility] Comment on above: Performed By: #### M G, CMP, PHOS #### [facility] [address] [place] [address] Dr. Dk Mahoney CO2 [Moles/Vol] 26.5 mmol/L Normal 21.0-32.0 [facility] Comment on above: Performed By: #### M G, CMP, PHOS #### [facility] [address] [address] [address] Dk Mahoney Creatinine [Mass/Vol] 3.76 mg/dL Critically high 0.70-1.30 [facility] Comment on above: Performed By: #### M G, CMP, PHOS #### [facility] [address] [address] [address] Dk Mahoney EGFR-AF TRISTANIAN 19 mL/min/1.73m2 Critically low >=60 [facility] Comment on above: Performed By: #### M G, CMP, PHOS #### [facility] [address] [address] [address] Dk Mahoney EGFR-NON AF TRISTANIAN 16 mL/min/1.73m2 Critically low >=60 [facility] Comment on above: Performed By: #### M G, CMP, PHOS #### [facility] [address] [address] [address] Dk Mahoney Glucose [Mass/Vol] 143 mg/dL Critically high 74-106 [facility] Comment on above: Performed By: #### M G, CMP, PHOS #### [facility] [address] [address] [address] Dk Mahoney Potassium [Moles/Vol] 4.8 mmol/L Normal 3.5-5.1 [facility] Comment on above: Performed By: #### M G, CMP, PHOS #### [facility] [address] [address] [address] Dk Mahoney Sodium [Moles/Vol] 141 mmol/L Normal 136-145 [facility] Comment on above: Performed By: #### M G, CMP, PHOS #### [facility] [address] [address] [address] Dk Mahoney Urea nitrogen [Mass/Vol] 47.0 mg/dL Critically high 7.0-18.0 [facility] Comment on above: Performed By: #### M G, CMP, PHOS #### [facility] [address] [address] [address] Dk Mahoney Urea nitrogen/Creatinine [Mass ratio] 12.5 mg/mg Normal [facility] Comment on above: Performed By: #### M G, CMP, PHOS #### [facility] [address] [address] [address] Dk Mahoney US ROWAN DOP LEG [...] MARQUES AMAYA Date: 2021-10-24 18:07 Normal [facility] Visit (Urology)on Follow-up visit Diagnoses/Problems Assessed [...] d By: Riana Pro on 08-29-2020 - [employer] Work Phone: Amorphous, UA NOT REPORTED None [employer] [facility] Work Phone: Bacteria, UA 2+ Abnormal None [facility] Work Phone: Casts UA NOT REPORTED /LPF [facility] [employer] Work Phone: Crystals, UA NOT REPORTED None /HPF [facility] Work Phone: Epithelial Cells UA 2 TO 5 [facility] [employer] Work Phone: Interpretation and review of laboratory results Abnormal [facility] Work Phone: Mucus, UA NOT REPORTED None [facility] [employer] Work Phone: Other Observations UA NOT REPORTED NOT REQ. M [facility] [employer] Work Phone: RBC, UA 50 TO 100 [facility] [employer] Work Phone: Renal Epithelial, UA NOT REPORTED 0 /HPF [facility] [employer] Work Phone: Trichomonas, UA NOT REPORTED None [facility] [employer] Work Phone: WBC, UA GREATER THAN 100 [employer] [facility] Work Phone: Yeast, UA NOT REPORTED None [employer] Work Phone: [facility] [employer] Work Phone: Urinalysis Reflex to Culture Ordered By: Riana Pro on 08-29-2020 Bilirubin Urine Negative NEGATIVE [facility] Work Phone: Color, UA YELLOW YELLOW [facility] [employer] Work Phone: Glucose, Ur Negative NEGATIVE [facility] Work Phone: Interpretation and review of laboratory results Abnormal [employer] Work Phone: Ketones Ql (U) Negative NEGATIVE [employer] Work Phone: Leukocyte esterase Test strip Ql (U) LARGE Abnormal NEGATIVE [employer] Phone: Nitrite, Urine Positive Abnormal NEGATIVE [employer] Work Phone: pH, UA 7.5 [facility] [employer] Work Phone: Protein, UA 1+ Abnormal NEGATIVE [facility] [employer] Work Phone: Specific [place], UA 1.010 [employer] Work Phone: Turbidity UA CLEAR CLEAR [facility] Work Phone: Urinalysis Comments NOT REPORTED [facility] [employer] Work Phone: Urine Hgb 3+ Abnormal NEGATIVE [facility] [employer] Work Phone: Urobilinogen, Urine Normal Normal [facility] [employer] Work Phone: [facility] [employer] Work Phone: Microscopic Urinalysison Amorphous, UA NOT REPORTED None [facility] [place] [place] Bacteria, UA 2+ Abnormal None [facility] [place] Casts UA NOT REPORTED /LPF [facility] [place] Crystals, UA NOT REPORTED None /HPF [facility] [place] Epithelial Cells UA 2 TO 5 [facility] [place] Interpretation and review of laboratory results Abnormal [place], [place] Mucus, UA NOT REPORTED None [place], [place] Other Observations UA NOT REPORTED NOT REQ. M [place], [place] RBC (U) [#/Vol] 20 TO 50 [place], [place] Renal Epithelial, UA NOT REPORTED 0 /HPF [place] Trichomonas, UA NOT REPORTED None [place] WBC, UA GREATER THAN 100 [place] Yeast, UA NOT REPORTED None [place] - [place] Urinalysison 02-03-2020 Bilirubin Urine Negative NEGATIVE [place] Color, UA YELLOW YELLOW [place] Glucose, Ur Negative NEGATIVE [place] Interpretation and review of laboratory results Abnormal [place] Ketones Ql (U) Negative NEGATIVE [place] Leukocyte esterase Test strip Ql (U) LARGE Abnormal NEGATIVE [place] Nitrite, Urine Positive Abnormal NEGATIVE [place] pH, UA 8.0 [place] Protein (U) [Mass/Vol] TRACE Abnormal NEGATIVE [place] Specific [place], UA 1.015 [place] Turbidity UA SLIGHTLY CLOUDY Abnormal CLEAR [place] Urinalysis Comments NOT REPORTED [place] Urine Hgb 3+ Abnormal NEGATIVE [place] Urobilinogen, Urine Normal Normal [place] Vital Signs Date Time Vital Sign Value Performing Clinician Facility 10-08-2022 12:20-0400 Body height 180.34 cm Devaughn Lucio Other [employer] [facility] Other 10-08-2022 12:20-0400 Body temperature 96.6 [degF] Devaughn Aviladir Other [employer] Other 10-08-2022 12:20-0400 Diastolic blood pressure 60 mm[Hg] Devaughn Aviladir Other [employer] Other 10-08-2022 12:20-0400 Respiratory rate 18 /min Devaughn Khadijah Other [employer] Other 10-08-2022 12:20-0400 SaO2% (BldA) [Mass fraction] 100 % Devaughn Khadijah Other [employer] Other 10-08-2022 12:20-0400 Systolic blood pressure 121 mm[Hg] Devaughn Khadijah Other [employer] Other 10-01-2022 13:30-0400 Body height 180.34 cm Erik Shepherdrefadia Other [employer] Other 10-01-2022 13:30-0400 Body mass index (BMI) [Ratio] 42.12 kg/m2 Erik Ariasehrer Other [employer] Other 10-01-2022 13:30-0400 Body temperature 97.2 [degF] Erik Shepherdrer Other [employer] Other 10-01-2022 13:30-0400 Body weight 136.99 kg Erik Ariasehrer Other [employer] Other 10-01-2022 13:30-0400 Diastolic blood pressure 68 mm[Hg] Erik Buehrer Other [employer] Other 10-01-2022 13:30-0400 SaO2% (BldA) [Mass fraction] 97 % Erik Buehrer Other [employer] Other 10-01-2022 13:30-0400 Systolic blood pressure 138 mm[Hg] Erik Sanderson Other [employer] Other Encounters Encounter Date Encounter Type Care Provider Facility Start: 01-17-2023 End: 01-18-2023 ambulatory BLANCA Mahoney [facility] Start: 10-21-2022 End: 10-21-2022 ambulatory Devaughn Khadijah Other [employer] Other Start: 10-21-2022 Telephone encounter Devaughn Khadijah [facility] Start: 10-18-2022 End: 10-18-2022 ambulatory Devaughn Khadijah Other [employer] Other Start: 10-18-2022 Telephone encounter Devaughn Khadijah [facility] Start: 10-08-2022 End: 10-08-2022 ambulatory Devaughn Khadijah Other [employer] Other Start: 10-08-2022 Office outpatient visit 15 minutes Devaughn Khadijah [facility] Start: 10-01-2022 End: 10-01-2022 ambulatory Erik Sanderson Other [employer] Other Start: 10-01-2022 Office outpatient visit 25 minutes Erik Sanderson [facility] Start: 08-31-2022 End: 09-01-2022 ambulatory ЕЛЕНА SAMSON Facility:CD:[id number] Start: 08-30-2022 End: 09-04-2022 Evaluation and management of inpatient Eldon López Facility:[facility] Start: 07-05-2022 End: 07-07-[address] ERIK RHODES . Facility:[facility] Start: 05-04-2022 End: 05-04-2022 ambulatory ROBERTO HEBERT Facility:[facility] Start: 04-19-2022 End: 04-19-[address] ERIK RHODES . Facility:[facility] Start: 03-14-2022 End: 03-14-[address] NONE LISTED REQUEST Facility: Start: 10-24-2021 End: 10-24-2021 ambulatory KENDRA KEVIN . Facility:[facility] Start: 08-29-2020 End: 08-29-2020 [facility] Start: 02-03-2020 End: 02-03-2020 Subsequent hospital visit by physician [facility] Laboratory Procedures Date Procedure Procedure Detail Performing Clinician Start: 08-31-2022 Antibody screen Eldon López Comment on above: Order Comment: NEEDS DRAWN Result Comment: PERF ORMED BY: [facility] [address] [place] [address] PATHOLOGIST BENCH HAND BRANDEN WHATLEY M.D. Start: 08-29-2020 Urinalysis microscop [...] Influenza vaccination Flu vacc ine (Season Ended) [facility] Work Phone: Start: 04-30-2020 Creatinine measurement Creatinine mo [place]itoring [place] Start: 04-30-2020 Potassium monitoring Potassium monit [place] Start: 12-14-2019 Influenza vaccination Flu vaccine (# 1) [place] Start: 02-08-2019 Annual Wellness Visi t (AWV) Annual Wellness Visit (AWV) [place] Start: 09-11-2015 Pneumococcal 65+ yea rs Vaccine (1 of 1 - PPSV23) Pneumococcal 65+ years Vaccine (1 of 1 - PPSV23) [place] Start: 2000 Screening for malign ant neoplasm of colon Colon cancer screen colonoscopy [place] Start: 2000 Shingles Vaccine (1 of 2) Ordoñez gles Vaccine (1 of 2) [place] Start: 1969 DTaP/Tdap/Td vaccine (1 - Tdap) DTaP/Tdap/Td vaccine (1 - Tdap) [place] Start: 1962 COVID-19 Vaccine (1) COVID-19 Vaccin e (1) [facility] Phone: Start: 1960 Lipid panel Lipid screen [place], [place] Start: 1950 Hepatitis C screening Hepatitis C sc [place]en [place] End: 02-03-2020 Culture, Urine Culture, Urine Microbiology Routine Once for 1 Occurrences starting 02/03/2020 until 02/03/2020 [place] Comment on above: Once for 1 Occurrenc es starting 02/03/2020 until 02/03/2020 Culture, Urine [place] End: 08-29-2020 Culture, Urine Culture, Urine Microbiology Routine Once for 1 Occurrences starting 08/29/2020 until 08/29/2020 [facility] Phone: Comment on above: Once for 1 Occurrenc es starting 08/29/2020 until 08/29/2020 Payers Date Payer Category Payer Self-pay 2022 Unknown [id number] 2022 Medicare [id number] 2020 Medicare [id number] 2019 Medicare [id number] 2019 Unknown [id number] 2014 Medicare [employer] MEDIC[employer] [facility] [id number] 2014-Present [address] [address] [place] [address] [id number] 1950 Unknown [id number] 1950 Unknown [id number] 1950 Unknown [id number] 1950 Unknown [id number] 1950 Unknown [id number] 1950 Unknown [id number] 1950 Unknown [id number] Medicare [id number] Unknown [id number] Social History Date Type Detail Facility Start: 02-05-2019 Tobacco smoking status [facility] Unknown if ever smoked [place], [place] Start: 1950 Sex Assigned At Not on file [place] Sex Assigned At Sex Assigned At [facility] [employer] Other Evaluation note 10-08-2022 Note Date & Type Note Facility 10-08-2022 Evaluation note Encounter Date Diagnosis Assessment Notes Sep, CKD (chronic kidney disease) stage 4, GFR 15-29 ml/min (ICD-10 - N18.4) He has a CKD due to the longstanding hypertension and recurrent SHAWN due to the obstructive uropathy. He recently required hemodialysis due to the obstructive uropathy. He was monitored by the [facility] and catheter was removed as his renal function was improving as per the patient. Patient currently bedbound and can not be transferred out of the stretcher at our office. He does not want to follow-up in our office. Advised him to continue follow with the PCP and the [facility] vinicius [place] for CKD and renal function monitoring [facility]. 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 He appears to be euvolemic. Continue current medications. Sep, Secondary hyperparathyroidism (ICD-10 - N25.81) Continue sevelamer and vitamin D as prescribed by [facility] physician. Continue to follow with the [facility] vinicius [place]. Sep, Anemia of renal disease (ICD-10 - D63.1) Continue oral iron. Sep, Nephrolithiasis (ICD-10 - N20.0) Continue follow up with urology. [employer] Other Evaluation note 10-01-2022 Note Date & [...] this well and a dressing was applied. 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 [facility] provides no warranty or guarantee of the accuracy or completeness of information in this document.
--- NOTE | 2023-09-25 17:48 | ED_ITS ---
HPI HPI - General Adult General Chief complaint: Fall Stated complaint: fall Time Seen by Provider: 09/25/23 15:42 Source: patient Mode of arrival: ambulance Limitations: no limitations History of Present Illness HPI narrative: 73-year-old male to the emergency department with accidental fall off bed. Patient reports that he sleeps on a hospital bed and is a [employer]ck[employer] lift at home. Home health care has placed a second mattress on top of his mattress and he keeps sliding. Patient reports that he slid off the bed. Home health care was able to get him back into the bed and called 911 as he was complaining of pain in his back, left shoulder, left knee. Patient took some Tylenol at home. Reports pain is currently controlled. Not on blood thinners. Related Data Home Medications ?Medication ?Instructions ?Recorded ?Confirmed acetaminophen 325 mg capsule 975 mg PO TID PRN fever or pain 08/17/23 09/11/23 (Tylenol) albuterol 90 mcg/actuation aerosol 180 mcg inhalation QID PRN 08/17/23 09/11/23 inhaler shortness of breath or wheezing aspirin 81 mg tablet,delayed 81 mg PO DAILY 08/17/23 09/11/23 release (Adult Low Dose Aspirin) atorvastatin 80 mg tablet 80 mg PO .QHS 08/17/23 09/11/23 bacitracin zinc 500 unit/gram 1 applic topical DAILY PRN skin 08/17/23 09/11/23 topical ointment irritation calcitriol 0.25 mcg capsule 0.25 mcg PO .3 TIMES WEEK 08/17/23 09/11/23 carvedilol 12.5 mg tablet 12.5 mg PO BID 08/17/23 09/11/23 cholecalciferol (vitamin D3) 50 2,000 unit PO DAILY 08/17/23 09/11/23 mcg (2,000 unit) capsule clobetasol 0.05 % topical cream 1 applic topical BID 08/17/23 09/11/23 darbepoetin danielle in polysorbat 100 100 mcg subcut QWEEK 08/17/23 09/11/23 mcg/mL in polysorbate injection darifenacin 15 mg tablet,extended 15 mg PO DAILY 08/17/23 09/11/23 release 24 hr ferrous sulfate 325 mg (65 mg 325 mg PO .QOD 08/17/23 09/11/23 iron) tablet,delayed release finasteride 5 mg tablet 5 mg PO DAILY 08/17/23 09/11/23 guaifenesin 600 mg tablet, 600 mg PO BID PRN congestion 08/17/23 09/11/23 extended release 12 hr hydrophilic cream 1 applic topical BID 08/17/23 09/11/23 levothyroxine 75 mcg capsule 75 mcg PO QAM 08/17/23 09/11/23 lidocaine HCl 2 % topical gel 1 applic topical DAILY PRN pain 08/17/23 09/11/23 lidocaine HCl 4 % topical ointment 1 ea topical TID PRN pain 08/17/23 09/11/23 (AsperFlex (lidocaine HCl)) loratadine 10 mg tablet (Allergy 10 mg PO .QOD 08/17/23 09/11/23 Relief (loratadine)) melatonin 3 mg tablet 3 mg PO .QHS PRN sleep 08/17/23 09/11/23 miconazole nitrate 2 % topical 1 applic topical DAILY PRN fungal 08/17/23 09/11/23 powder (Remedy Phytoplex Antifungal) multivitamin 1 tab PO DAILY 08/17/23 09/11/23 nitroglycerin 0.4 mg sublingual 0.4 mg sublingual Q5M PRN chest 08/17/23 09/11/23 tablet pain omeprazole 20 mg tablet,delayed 20 mg PO DAILY 08/17/23 09/11/23 release polyethylene glycol 3350 17 17 g PO DAILY PRN constipation 08/17/23 09/11/23 gram/dose oral powder (Miralax) potassium citrate-citric acid 30 ml PO DAILY 08/17/23 09/11/23 1,100 mg-334 mg/5 mL oral solution pramoxine 1 % lotion 1 applic topical TID PRN itching 08/17/23 09/11/23 semaglutide 2 mg/dose (8 mg/3 mL) 0.5 mg subcut QWEEK 08/17/23 09/11/23 subcutaneous pen injector (Ozempic) sennosides 8.6 mg capsule 8.6 mg PO DAILY PRN constipation 08/17/23 09/11/23 trazodone 100 mg tablet 100 mg PO .QHS 08/17/23 09/11/23 venlafaxine 37.5 mg 37.5 mg PO DAILY 08/17/23 09/11/23 capsule,extended release 24 hr wound dressings (Triad Wound 1 applic topical .COMPLEX 08/17/23 09/11/23 Dressing paste) zinc oxide 20 % topical ointment 1 applic topical DAILY PRN skin 08/17/23 09/11/23 irritation ixekizumab 80 mg/mL subcutaneous See Rx Instructions subcut .COMPLEX 09/11/23 09/11/23 syringe sodium chloride 0.65 % nasal spray 2 spray intranasal QID PRN dry 09/11/23 09/11/23 aerosol (Termo Saline) nasal passages triamcinolone acetonide 0.1 % 1 applic topical BID 09/11/23 09/11/23 topical ointment Previous Rx's ?Medication ?Instructions ?Recorded vancomycin 125 mg capsule 125 mg PO Q6H 10 days #40 caps 09/13/23 Allergies Allergy/AdvReac Type Severity Reaction Status Date / Time Penicillins Allergy Mild Rash Verified 09/25/23 15:39 ferumoxides Allergy Rash Verified 09/25/23 15:39 sulfamethoxazole AdvReac Mild Nausea Verified 09/25/23 15:39 [From Sulfamethoxazole-Trimethoprim] trimethoprim AdvReac Mild Nausea Verified 09/25/23 15:39 [From Sulfamethoxazole-Trimethoprim] Opioid HPI Opioid Management Most Recent Opioid Data: Last Pain Scale 0 09/12/23 05:48 Last ORT Total Score 0 09/11/23 03:04 Last ORT Risk Category Low Risk 09/11/23 03:04 Review of Systems ROS Status of ROS 10 or more systems reviewed and unremark able except as noted in history and below [facility] Medical History (Updated 09/25/23 @ 18:06 by Tevin Jennings MD) C. 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 - Other specified dermatitis (ICD-10) CAD (coronary artery disease) ?I25.10 - Atherosclerotic heart disease of [place] coronary artery without angina pectoris (ICD-10) T2DM (type 2 diabetes mellitus) ?E11.9 - Type 2 diabetes mellitus without complications (ICD-10) Hypothyroid ?E03.9 - Hypothyroidism, unspecified (ICD-10) HLD (hyperlipidemia) ?E78.5 - Hyperlipidemia, unspecified (ICD-10) HTN (hypertension) ?I10 - Essential (primary) hypertension (ICD-10) Anemia in CKD (chronic kidney disease) ?N18.9 - Chronic kidney disease, unspecified (ICD-10) ?D63.1 - Anemia in chronic kidney disease (ICD-10) Chronic indwelling Wooten catheter ?Z97.8 - Presence of other specified devices (ICD-10) Paraplegia ?G82.20 - Paraplegia, unspecified (ICD-10) Bedbound ?Z74.01 - Bed confinement status (ICD-10) H/O: CVA (cerebrovascular accident) ?Z86.73 - Personal history of transient ischemic attack (TIA), and cerebral infarction without residual deficits (ICD-10) CKD (chronic kidney disease) stage 5, GFR less than 15 ml/min ?N18.5 - Chronic kidney disease, stage 5 (ICD-10) Surgical History (Updated 09/11/23 @ 03:19 by Bethany Amor) H/O heart artery stent ?Z95.5 - Presence of coronary angioplasty implant and graft (ICD-10) Social History (Updated 09/11/23 @ 01:42 by Bethany Amor) Within the past year, how often did you have a drink containing alcohol: never Score interpretation: A score less than 4 is consistent with normal alcohol consumption. Smoking status: Former smoker Non-prescribed substance use: denies use Highest level of school completed/degree received: Associate degree: occupational, technical, vocational program Are you now , , , , never or living with a partner: don't know In a typical week, how many times do you talk on the telephone with family, friends, or neighbors: never How often do you get together with friends or relatives: never How often do you attend spiritism or presybeterian services: never Little interest or pleasure in doing things: not at all Feeling down, depressed, or hopeless: not at all Do you think of yourself as: straight/heterosexual Gender Identity: male Exam Narrative Exam Narrative: Primary Survey Airway Intact Lung sounds clear and equal bilaterally Pulses full and equal to femoral, radial, and dorsalis pedis bilaterally Heart regular rate and rhythm Skin warm, dry, pink GCS 15 Movement and sensation intact to all extremities Patient Fully Exposed. Pain with range of motion of the left shoulder, left knee. No visible evidence of trauma. Secondary Survey General: GCS 15; Alert HEENT: Head atraumatic; Facial bones stable; Eyes normal inspection, Pupils round, 4-2mm blt; No evidence of oropharyngeal trauma; No blood in the nares or septal hematoma; Tympanic Membranes intact, no hemotympanum or drainage Neck: Normal inspection; C-collar in place; No tracheal deviation; No JVD Resp: Normal breath sounds, no wheeze or crackles; No chest wall tenderness, crepitus, or subcutaneous emphysema; No visible evidence of chest wall trauma; Chest rise symmetric; No respiratory distress Heart: Heart rate and rhythm regular; Carotid, radial, femoral, dorsalis pedis pulses +2 and equal bilaterally; No Murmurs Abdomen: Soft; Non-tender No ecchymosis or visible wounds to abdominal wall; No distention, guarding, rigidity, or rebound; Pelvis stable, no pain on co mpression MSK: All major joints with normal ROM. No deformities. No bony tenderness. No tenderness or step-offs to palpation of thoracic or lumbar spine; No ecchymosis or wounds to upper or lower back Neuro: Alert and oriented; Sensation intact and symmetric bilaterally; muscle strengths symmetric bilaterally in the upper and lower extremities. Skin: Color normal; No rash; Warm; Dry Constitutional Vital Signs, click to edit/add: Last Vital Signs Temp 98.1 F 09/25/23 15:39 Pulse 80 09/25/23 15:39 Resp 16 09/25/23 15:39 BP 118/78 09/25/23 15:39 Pulse Ox 99 09/25/23 15:39 O2 Del Method Room Air 09/25/23 15:39 Course Vital Signs Vital signs: Vital Signs Temperature 98.1 F 09/25/23 15:39 Pulse Rate 80 09/25/23 15:39 Respiratory Rate 16 09/25/23 15:39 Blood Pressure 118/78 09/25/23 15:39 Pulse Oximetry 99 09/25/23 15:39 Oxygen Delivery Method Room Air 09/25/23 15:39 Temperature 98.1 F 09/25/23 15:39 Pulse Rate 80 09/25/23 15:39 Respiratory Rate 16 09/25/23 15:39 Blood Pressure 118/78 09/25/23 15:39 Pulse Oximetry 99 09/25/23 15:39 Oxygen Delivery Method Room Air 09/25/23 15:39 Medical Decision Making MDM Narrative Medical decision making narrative: Morbidly obese 73-year-old male to the emergency department for fall at home. He rolled out of bed. Complaining of pain in his back, left shoulder, left knee. CT head and cervical spine are ordered as he cannot be ruled out by clinical decision rules alone due to his advanced age. CT imaging of the thoracic and lumbar spine is ordered given that he already be on the CT table is complaining of pain in his back. X-ray left knee and shoulder ordered. He declines pain medication. CT head: Negative CT C-spine: Negative CT thoracic and lumbar spine: No acute findings, incidentally visualized thyroid nodule X-ray knee: No acute findings X-ray shoulder: No acute findings Findings discussed with patient. He will return home. He will follow-up with his doctor about the thyroid nodule. Return precautions were discussed. All questions were answered. The patient was discharged home. Medical Records Medical records reviewed: Yes I reviewed the patient's medical records Imaging Data CT scan - head: Radiologist's impression: ITS Impressions Cervical Spine CT 09/25/23 15:46 IMPRESSION: No acute intracranial process is identified. No acute fracture. Electronically authenticated by: Teal Orbit Date: 09/25/2023 17:[address] 09/25/23 15:46 IMPRESSION: No acute intracranial process is identified. No acute fracture. Electronically authenticated by: Teal Orbit Date: 09/25/2023 17:[address] 09/25/23 15:47 Impression: No acute finding. Large thyroid nodule. An ultrasound is recommended for further evaluation. Electronically authenticated by: Teal Orbit Date: 09/25/2023 17:[address] 09/25/23 15:47 Impression: No acute finding. Large thyroid nodule. An ultrasound is recommended for further evaluation. Electronically authenticated by: Teal Orbit Date: 09/25/2023 17:16 Knee X-Ray 09/25/23 15:48 IMPRESSION: No fractures or dislocations are seen within or around the left knee. There is moderate to severe osteoarthritic narrowing of the medial compartment. Electronically authenticated by: YUSUF MELO Date: 09/25/2023 17:53 Shoulder X-Ray 09/25/23 15:48 IMPRESSION: No radiographic findings of acute trauma of the left shoulder. Electronically authenticated by: YUSUF LENZCLAY Date: 09/25/2023 17:54 Discharge Plan Discharge Stand Alone Forms: Portal Instructions Chief Complaint: Fall Clinical Impression: Accidental fall from bed, Contusion of left shoulder, Contusion of knee, left, Contusion of back, Thyroid nodule Patient Disposition: Home, Self-Care Time of Disposition Decision: 18:05 Condition: Good Mode of Transportation: EMS Prescriptions / Home Meds: No Action triamcinolone acetonide 0.1 % ointment 1 applic topical BID Termo Saline 0.65 % aerosol,spray 2 spray intranasal QID PRN (Reason: dry nasal passages) ixekizumab 80 mg/mL syringe See Rx Instructions subcut .COMPLEX Rx Instructions: subcutaneously 160MG SQ ONCE, THEN 80MG SQ EVERY 2 WEEKS; vancomycin 125 mg capsule 125 mg PO Q6H 10 Days Qty: 40 0RF clobetasol 0.05 % cream 1 applic topical BID Rx Instructions: TO UPPER ARM NODULES PER [facility] nitroglycerin 0.4 mg tablet, sublingual 0.4 mg sublingual Q5M PRN (Reason: chest pain) Rx Instructions: do not exceed 3 doses per episode bacitracin zinc 500 unit/gram ointment 1 applic topical DAILY PRN (Reason: skin irritation) trazodone 100 mg tablet 100 mg PO .QHS venlafaxine 37.5 mg capsule,extended release 24hr 37.5 mg PO DAILY loratadine [Allergy Relief (loratadine)] 10 mg tablet 10 mg PO .QOD Rx Instructions: QOD PER [facility] atorvastatin 80 mg tablet 80 mg PO .QHS darifenacin 15 mg tablet extended release 24 hr 15 mg PO DAILY Triad Wound Dressing Paste 1 applic topical .COMPLEX Rx Instructions: 1 applic topically TWICE A WEEK ON FRIDAY AND FRIDAY; carvedilol 12.5 mg tablet 12.5 mg PO BID Rx Instructions: must administer with a meal/food darbepoetin danielle in polysorbat 100 mcg/mL solution 100 mcg subcut QWEEK albuterol 90 mcg/actuation aerosol 180 mcg inhalation QID PRN (Reason: shortness of breath or wheezing) Rx Instructions: 2 PUFFS QID PRN PER [facility] calcitriol 0.25 mcg capsule 0.25 mcg PO .3 TIMES WEEK Rx Instructions: FRIDAY, FRIDAY AND FRIDAY PER [facility] potassium citrate-citric acid 1,100-334 mg/5 mL solution 30 ml PO DAILY zinc oxide 20 % ointment 1 applic topical DAILY PRN (Reason: skin irritation) hydrophilic cream Cream 1 applic topical BID miconazole nitrate [Remedy Phytoplex Antifungal] 2 % powder 1 applic topical DAILY PRN (Reason: fungal) omeprazole 20 mg tablet,delayed release (DR/EC) 20 mg PO DAILY melatonin 3 mg tablet 3 mg PO .QHS PRN (Reason: sleep) finasteride 5 mg tablet 5 mg PO DAILY polyethylene glycol 3350 [Miralax] 17 gram/dose powder 17 g PO DAILY PRN (Reason: constipation) Ozempic 2 mg/dose (8 mg/3 mL) pen injector 0.5 mg subcut QWEEK ferrous sulfate 325 mg (65 mg iron) tablet,delayed release (DR/EC) 325 mg PO .QOD Rx Instructions: EVERY OTHER DAY PER [facility] AsperFlex (lidocaine HCl) 4 % ointment 1 ea topical TID PRN (Reason: pain) lidocaine HCl 2 % gel 1 applic topical DAILY PRN (Reason: pain) Patient Comments: urethral pain pramoxine 1 % lotion 1 applic topical TID PRN (Reason: itching) acetaminophen [Tylenol] 325 mg capsule 975 mg PO TID PRN (Reason: fever or pain) aspirin [Adult Low Dose Aspirin] 81 mg tablet,delayed release (DR/EC) 81 mg PO DAILY guaifenesin 600 mg tablet extended release 12hr 600 mg PO BID PRN (Reason: congestion) sennosides 8.6 mg capsule 8.6 mg PO DAILY PRN (Reason: constipation) levothyroxine 75 mcg capsule 75 mcg PO QAM cholecalciferol (vitamin D3) 50 mcg (2,000 unit) capsule 2,000 unit PO DAILY multivitamin Tablet 1 tab PO DAILY Rx Instructions: WITH MINERALS, NO VITAMIN K PER [facility] Print Language: Romansh Instructions: Fall Prevention for Older Adults (ED), Contusion in Adults (ED) Additional Instructions: Follow-up with your doctor at the [facility]. You had an incidentally visualized thyroid nodule which needs an outpatient ultrasound. You may discuss this with your doctor further. Referrals: Physician,Non-Staff, MD [Primary Care Provider] - 1 week
[2023-09-25 20:14] VITALS: BP 151/80; PULSE 88; O2SAT 100
== END 2023-09-25 20:15 | disposition home or self-care (01) ==
PROVIDERS: Emergency Provider Student in an Organized Health Care Education/Training Program
DX: S20.229A Contusion of unspecified back wall of thorax, initial encounter (principal); S30.0XXA Contusion of lower back and pelvis, initial encounter; S40.012A Contusion of left shoulder, initial encounter; S80.02XA Contusion of left knee, initial encounter; E04.1 Nontoxic single thyroid nodule; W06.XXXA Fall from bed, initial encounter; Z87.891 Personal history of nicotine dependence
CPT/HCPCS: 70450; 72125; 72128; 72131; 73030; 73562; 80048; 99284

== ENCOUNTER 2023-10-14 17:21 | Inpatient (IN) | payer OTHER, SELFPAY ==
[2023-10-14] VITALS (9 sets, daily range): BP systolic 133–164; BP diastolic 65–71; PULSE 94–114; TEMP 36.6–37.7; O2SAT 96–100; BMI 39.6; BMI 39.0
--- NOTE | 2023-10-14 17:36 | ECG_ITS ---
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
--- NOTE | 2023-10-14 17:36 | XR_ITS ---
The [address] [address] Patient Name: MATT HONEYCUTT MRN: [id number] date: 1950 Sex: M Assigned Patient Location: ER Current Patient Location: ER Accession/Order Number: [id number] Exam Date: 10/14/2023 17:35 Report Date: 10/14/2023 18:36 At the request of: PRATEEK MARIE Procedure: XR chest 1V EXAM: XR chest 1V HISTORY: weak COMPARISON: None. TECHNIQUE: Chest X-ray AP, 1 view FINDINGS: Support devices: None. Lungs/pleura: No consolidation, effusion, or pneumothorax. Heart and mediastinum: Normal contours. Bones: No acute abnormality identified. XR/XR chest 1V Impression: No radiographic evidence of acute cardiopulmonary process. Electronically authenticated by: FINN QUINONEZ Date: 10/14/2023 18:36
--- NOTE | 2023-10-14 17:40 | ED_ITS ---
HPI HPI - General Adult General Chief complaint: Abdominal Pain Stated complaint: Infection Time Seen by Provider: 10/14/23 17:23 Source: patient Mode of arrival: ambulance History of Present Illness HPI narrative: 73-year-old male presents for feeling shaky. He is worried about a UTI. The symptoms started today and he called his [place] doctor and they told him to go to the hospital and get his urine checked. He did not check his temperature at home. He does not seem to be complaining of any pain. He lives at home but is unable to walk and has 24-hour care, apparently. He states he vomited today and has not had diarrhea for 2 weeks. Related Data Home Medications ?Medication ?Instructions ?Recorded ?Confirmed acetaminophen 325 mg capsule 975 mg PO TID PRN fever or pain 08/17/23 09/11/23 (Tylenol) albuterol 90 mcg/actuation aerosol 180 mcg inhalation QID PRN 08/17/23 09/11/23 inhaler shortness of breath or wheezing aspirin 81 mg tablet,delayed 81 mg PO DAILY 08/17/23 09/11/23 release (Adult Low Dose Aspirin) atorvastatin 80 mg tablet 80 mg PO .QHS 08/17/23 09/11/23 bacitracin zinc 500 unit/gram 1 applic topical DAILY PRN skin 08/17/23 09/11/23 topical ointment irritation calcitriol 0.25 mcg capsule 0.25 mcg PO .3 TIMES WEEK 08/17/23 09/11/23 carvedilol 12.5 mg tablet 12.5 mg PO BID 08/17/23 09/11/23 cholecalciferol (vitamin D3) 50 2,000 unit PO DAILY 08/17/23 09/11/23 mcg (2,000 unit) capsule clobetasol 0.05 % topical cream 1 applic topical BID 08/17/23 09/11/23 darbepoetin danielle in polysorbat 100 100 mcg subcut QWEEK 08/17/23 09/11/23 mcg/mL in polysorbate injection darifenacin 15 mg tablet,extended 15 mg PO DAILY 08/17/23 09/11/23 release 24 hr ferrous sulfate 325 mg (65 mg 325 mg PO .QOD 08/17/23 09/11/23 iron) tablet,delayed release finasteride 5 mg tablet 5 mg PO DAILY 08/17/23 09/11/23 guaifenesin 600 mg tablet, 600 mg PO BID PRN congestion 08/17/23 09/11/23 extended release 12 hr hydrophilic cream 1 applic topical BID 08/17/23 09/11/23 levothyroxine 75 mcg capsule 75 mcg PO QAM 08/17/23 09/11/23 lidocaine HCl 2 % topical gel 1 applic topical DAILY PRN pain 08/17/23 09/11/23 lidocaine HCl 4 % topical ointment 1 ea topical TID PRN pain 08/17/23 09/11/23 (AsperFlex (lidocaine HCl)) loratadine 10 mg tablet (Allergy 10 mg PO .QOD 08/17/23 09/11/23 Relief (loratadine)) melatonin 3 mg tablet 3 mg PO .QHS PRN sleep 08/17/23 09/11/23 miconazole nitrate 2 % topical 1 applic topical DAILY PRN fungal 08/17/23 09/11/23 powder (Remedy Phytoplex Antifungal) multivitamin 1 tab PO DAILY 08/17/23 09/11/23 nitroglycerin 0.4 mg sublingual 0.4 mg sublingual Q5M PRN chest 08/17/23 09/11/23 tablet pain omeprazole 20 mg tablet,delayed 20 mg PO DAILY 08/17/23 09/11/23 release polyethylene glycol 3350 17 17 g PO DAILY PRN constipation 08/17/23 09/11/23 gram/dose oral powder (Miralax) potassium citrate-citric acid 30 ml PO DAILY 08/17/23 09/11/23 1,100 mg-334 mg/5 mL oral solution pramoxine 1 % lotion 1 applic topical TID PRN itching 08/17/23 09/11/23 semaglutide 2 mg/dose (8 mg/3 mL) 0.5 mg subcut QWEEK 08/17/23 09/11/23 subcutaneous pen injector (Ozempic) sennosides 8.6 mg capsule 8.6 mg PO DAILY PRN constipation 08/17/23 09/11/23 trazodone 100 mg tablet 100 mg PO .QHS 08/17/23 09/11/23 venlafaxine 37.5 mg 37.5 mg PO DAILY 08/17/23 09/11/23 capsule,extended release 24 hr wound dressings (Triad Wound 1 applic topical .COMPLEX 08/17/23 09/11/23 Dressing paste) zinc oxide 20 % topical ointment 1 applic topical DAILY PRN skin 08/17/23 09/11/23 irritation ixekizumab 80 mg/mL subcutaneous See Rx Instructions subcut .COMPLEX 09/11/23 09/11/23 syringe sodium chloride 0.65 % nasal spray 2 spray intranasal QID PRN dry 09/11/23 09/11/23 aerosol ([place] Saline) nasal passages triamcinolone acetonide 0.1 % 1 applic topical BID 09/11/23 09/11/23 topical ointment Previous Rx's ?Medication ?Instructions ?Recorded vancomycin 125 mg capsule 125 mg PO Q6H 10 days #40 caps 09/13/23 Allergies Allergy/AdvReac Type Severity Reaction Status Date / Time Penicillins Allergy Mild Rash Verified 09/25/23 15:39 ferumoxides Allergy Rash Verified 09/25/23 15:39 sulfamethoxazole AdvReac Mild Nausea Verified 09/25/23 15:39 [From Sulfamethoxazole-Trimethoprim] trimethoprim AdvReac Mild Nausea Verified 09/25/23 15:39 [From Sulfamethoxazole-Trimethoprim] Opioid HPI Opioid Management Most Recent Opioid Data: Last Pain Scale 5 10/14/23 17:30 Last ORT Total Score 0 09/11/23 03:04 Last ORT Risk Category Low Risk 09/11/23 03:04 Review of Systems ROS Narrative A ten point review of systems is negative except as noted above. [facility] Medical History (Updated 10/14/23 @ 18:50 by Chivo Kamara MD) C. 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 - Other specified dermatitis (ICD-10) CAD (coronary artery disease) ?I25.10 - Atherosclerotic heart disease of [place] coronary artery without angina pectoris (ICD-10) T2DM (type 2 diabetes mellitus) ?E11.9 - Type 2 diabetes mellitus without complications (ICD-10) Hypothyroid ?E03.9 - Hypothyroidism, unspecified (ICD-10) HLD (hyperlipidemia) ?E78.5 - Hyperlipidemia, unspecified (ICD-10) HTN (hypertension) ?I10 - Essential (primary) hypertension (ICD-10) Anemia in CKD (chronic kidney disease) ?N18.9 - Chronic kidney disease, unspecified (ICD-10) ?D63.1 - Anemia in chronic kidney disease (ICD-10) Chronic indwelling Wooten catheter ?Z97.8 - Presence of other specified devices (ICD-10) Paraplegia ?G82.20 - Paraplegia, unspecified (ICD-10) Bedbound ?Z74.01 - Bed confinement status (ICD-10) H/O: CVA (cerebrovascular accident) ?Z86.73 - Personal history of transient ischemic attack (TIA), and cerebral infarction without residual deficits (ICD-10) CKD (chronic kidney disease) stage 5, GFR less than 15 ml/min ?N18.5 - Chronic kidney disease, stage 5 (ICD-10) Surgical History (Updated 09/11/23 @ 03:19 by Bethany Amor) H/O heart artery stent ?Z95.5 - Presence of coronary angioplasty implant and graft (ICD-10) Social History (Updated 09/11/23 @ 01:42 by Bethany Amor) Within the past year, how often did you have a drink containing alcohol: never Score interpretation: A score less than 4 is consistent with normal alcohol consumption. Smoking status: Former smoker Non-prescribed substance use: denies use Highest level of school completed/degree received: Associate degree: occupational, technical, vocational program Are you now , , , , never or living with a partner: don't know In a typical week, how many times do you talk on the telephone with family, friends, or neighbors: never How often do you get together with friends or relatives: never How often do you attend pentecostalism or episcopal services: never Little interest or pleasure in doing things: not at all Feeling down, depressed, or hopeless: not at all Do you think of yourself as: straight/heterosexual Gender Identity: male Exam Narrative Exam Narrative: Nurses note and vital signs reviewed and patient is not hypoxic. General: The patient appears in no apparent distress. Patient is resting on cart. Skin: Warm, dry, no pallor noted. There is no rash noted. Head: Normocephalic, atraumatic Eye: Normal conjunctiva, no drainage Ears, Nose, Mouth, and Throat: oral mucosa is moist. Nares patent. a Cardiovascular: Regular Rate and Rhythm, not tachycardic Respiratory: Patient is in no distress, no accessory muscle use, lungs are clear to auscultation, no wheezing, rales or rhonchi GI: Obese, soft, nontender. Wooten catheter is in place. Musculoskeletal: The patient has no evidence of calf tenderness, symmetrical pulses noted bilaterally Neurological: A&O, normal speech Psychiatric: Cooperative Constitutional Vital Signs, click to edit/add: Last Vital Signs Temp 99.9 F 10/14/23 17:22 Pulse 94 H 10/14/23 17:22 Resp 20 10/14/23 17:22 BP 133/65 10/14/23 17:22 Pulse Ox 100 10/14/23 17:22 O2 Del Method Room Air 10/14/23 17:22 Course Vital Signs Vital signs: Vital Signs Temperature 99.9 F 10/14/23 17:22 Pulse Rate 94 H 10/14/23 17:22 Respiratory Rate 20 10/14/23 17:22 Blood Pressure 133/65 10/14/23 17:22 Pulse Oximetry 100 10/14/23 17:22 Oxygen Delivery Method Room Air 10/14/23 17:22 Temperature 99.9 F 10/14/23 17:22 Pulse Rate 94 H 10/14/23 17:22 Respiratory Rate 10/14/23 17:22 Blood Pressure 133/65 10/14/23 17:22 Pulse Oximetry 100 10/14/23 17:22 Oxygen Delivery Method Room Air 10/14/23 17:22 Medical Decision Making MDM Narrative Medical decision making narrative: Tests are ordered and the patient is signed out to Dr. Richards Lab Data Lab results reviewed: Yes I reviewed the patient's lab results Labs: Lab Results 10/14/23 Range/Units 18:10 WBC 19.3 H (4.0-11.0) 10^3/uL RBC 3.17 L (4.70-6.10) 10^6/uL Hgb 9.4 L (14.0-18.0) g/dL Hct 29.6 L (42.0-54.0) % MCV 93.4 (80.0-94.0) fL MCH 29.7 (25.9-34.0) pg MCHC 31.8 (29.9-35.2) g/dL RDW 16.1 H (11.0-15.0) % Plt Count 160 (150-450) 10^3/uL MPV 10.2 (9.5-13.5) fL Seg Neuts % (Manual) 85.0 Band Neutrophils % 3.0 (0-5) % Lymphocytes % (Manual) 2.0 L (20.5-60.0) % Monocytes % (Manual) 7.0 (1.7-12.0) % Eosinophils % (Manual) 2.0 (0.9-7.0) % Basophils % (Manual) 1.0 (0.2-2.0) % Neutrophils # (Manual) 16.40 H (1.4-6.5) 10^3/uL Band Neutrophils # 0.6 H (0.0-0.3) 10^3/uL Lymphocytes # (Manual) 0.38 L (1.20-3.80) 10^3/uL Monocytes # (Manual) 1.35 H (0.30-0.80) 10^3/uL Eosinophils # (Manual) 0.38 (0.00-0.70) 10^3/uL Basophils # (Manual) 0.19 H (0.00-0.10) 10^3/uL Sodium 135 L (136-145) mmol/L Potassium 5.1 (3.5-5.1) mmol/L Chloride 101 (98-107) mmol/L Carbon Dioxide 19.4 L (21.0-32.0) mmol/L Anion Gap 19.7 BUN 99.0 H* (7.0-18.0) mg/dL Creatinine 6.99 H* (0.70-1.30) mg/dL Est GFR ( Amer) 9 L (>=60) Est GFR (Non-Af Amer) 8 L (>=60) BUN/Creatinine Ratio 14.2 Glucose 144 H (74-106) mg/dL Calcium 9.8 (8.5-10.1) mg/dL Urine Color Yellow (YELLOW) Urine Clarity Cloudy A (CLEAR) Urine pH 6.5 (5.0-9.0) Ur Specific [place] 1.020 (1.005-1.025) Urine Protein 100 A (NEG/TRACE) mg/dL Urine Glucose (UA) 250 A (NEGATIVE) mg/dL Urine Ketones Negative (NEGATIVE) mg/dL Urine Occult Blood Large A (NEGATIVE) Urine Nitrite Negative (NEGATIVE) Urine Bilirubin Negative (NEGATIVE) Urine Urobilinogen 0.2 (0.2-1.0) EU/dL Ur Leukocyte Esterase Moderate A (NEGATIVE) Urine RBC 20-50 A (0-2) #/HPF Urine WBC 50-75 A (NONE SEEN) #/HPF Ur Squamous Epith Cells Rare (NONE/RARE) #/LPF Urine Crystals None seen (None Seen) #/HPF Urine Bacteria Moderate A (NONE SEEN) #/HPF Urine Casts None seen (NONE SEEN) #/LPF Urine Mucus None seen (NONE SEEN) Ur Culture Indicated? Yes Discharge Plan Discharge Chief Complaint: Abdominal Pain Clinical Impression: Urinary tract infection Patient Disposition: Still a Patient Prescriptions / Home Meds: No Action triamcinolone acetonide 0.1 % ointment 1 applic topical BID [place] Saline 0.65 % aerosol,spray 2 spray intranasal QID PRN (Reason: dry nasal passages) ixekizumab 80 mg/mL syringe See Rx Instructions subcut .COMPLEX Rx Instructions: subcutaneously 160MG SQ ONCE, THEN 80MG SQ EVERY 2 WEEKS; vancomycin 125 mg capsule 125 mg PO Q6H 10 Days Qty: 40 0RF clobetasol 0.05 % cream 1 applic topical BID Rx Instructions: TO UPPER ARM NODULES PER [facility] nitroglycerin 0.4 mg tablet, sublingual 0.4 mg sublingual Q5M PRN (Reason: chest pain) Rx Instructions: do not exceed 3 doses per episode bacitracin zinc 500 unit/gram ointment 1 applic topical DAILY PRN (Reason: skin irritation) trazodone 100 mg tablet 100 mg PO .QHS venlafaxine 37.5 mg capsule,extended release 24hr 37.5 mg PO DAILY loratadine [Allergy Relief (loratadine)] 10 mg tablet 10 mg PO .QOD Rx Instructions: QOD PER [facility] atorvastatin 80 mg tablet 80 mg PO .QHS darifenacin 15 mg tablet extended release 24 hr 15 mg PO DAILY Triad Wound Dressing Paste 1 applic topical .COMPLEX Rx Instructions: 1 applic topically TWICE A WEEK ON FRIDAY AND FRIDAY; carvedilol 12.5 mg tablet 12.5 mg PO BID Rx Instructions: must administer with a meal/food darbepoetin danielle in polysorbat 100 mcg/mL solution 100 mcg subcut QWEEK albuterol 90 mcg/actuation aerosol 180 mcg inhalation QID PRN (Reason: shortness of breath or wheezing) Rx Instructions: 2 PUFFS QID PRN PER [place] PHARMACIST [facility] calcitriol 0.25 mcg capsule 0.25 mcg PO .3 TIMES WEEK Rx Instructions: FRIDAY, FRIDAY AND FRIDAY PER [facility] potassium citrate-citric acid 1,100-334 mg/5 mL solution 30 ml PO DAILY zinc oxide 20 % ointment 1 applic topical DAILY PRN (Reason: skin irritation) hydrophilic cream Cream 1 applic topical BID miconazole nitrate [Remedy Phytoplex Antifungal] 2 % powder 1 applic topical DAILY PRN (Reason: fungal) omeprazole 20 mg tablet,delayed release (DR/EC) 20 mg PO DAILY melatonin 3 mg tablet 3 mg PO .QHS PRN (Reason: sleep) finasteride 5 mg tablet 5 mg PO DAILY polyethylene glycol 3350 [Miralax] 17 gram/dose powder 17 g PO DAILY PRN (Reason: constipation) Ozempic 2 mg/dose (8 mg/3 mL) pen injector 0.5 mg subcut QWEEK ferrous sulfate 325 mg (65 mg iron) tablet,delayed release (DR/EC) 325 mg PO .QOD Rx Instructions: EVERY OTHER DAY PER [facility] AsperFlex (lidocaine HCl) 4 % ointment 1 ea topical TID PRN (Reason: pain) lidocaine HCl 2 % gel 1 applic topical DAILY PRN (Reason: pain) Patient Comments: urethral pain pramoxine 1 % lotion 1 applic topical TID PRN (Reason: itching) acetaminophen [Tylenol] 325 mg capsule 975 mg PO TID PRN (Reason: fever or pain) aspirin [Adult Low Dose Aspirin] 81 mg tablet,delayed release (DR/EC) 81 mg PO DAILY guaifenesin 600 mg tablet extended release 12hr 600 mg PO BID PRN (Reason: congestion) sennosides 8.6 mg capsule 8.6 mg PO DAILY PRN (Reason: constipation) levothyroxine 75 mcg capsule 75 mcg PO QAM cholecalciferol (vitamin D3) 50 mcg (2,000 unit) capsule 2,000 unit PO DAILY multivitamin Tablet 1 tab PO DAILY Rx Instructions: WITH MINERALS, NO VITAMIN K PER [facility] Print Language: Wol[place] Referrals: Physician,Non-Staff, MD [Primary Care Provider] - 1 week
--- OUTSIDE RECORDS SUMMARY | 2023-10-14 17:52 | XMS_ITS ---
Patient Summarization (C-CDA 2.1 CCD) Created on: October 14, 2023 TANGELAMATT : 1950 Sex: Male Author Organization Sample organization Care Team Providers Care Development Consultant Name Role Phone Unavailable Primary Care [...] Consulting Unavailable STRAWGLORIA MARQUES Consulting Unavailable ELEANOR .PASHA Consulting Unavailable [...] (antibiotic) (1 source) Penicillins Drug Allergy 02-06-20 [facility] (1 source) Penicillins Propensity to adverse reactions to drug 02-06-20 [facility] [place] [place] (2 sources) Penicillin; Translations: [penicillin] Drug Allergy [facility] Repository (2 sources) Sulfamethoxazole / Trimethoprim; Translations: [Bactrim] Drug Allergy [facility] [place] [facility] Repository (1 source) No Known Medication Allergies; Translations: [No Known Medication Allergies] Propensity to adverse reactions (disorder) [facility] Repository (3 sources) Penicillin G Drug Allergy Unknown [facility] Other (3 sources) Sulfamethoxazole / Trimethoprim Drug Allergy Unknown [facility] Other (1 source) Penicillins Drug allergy (disorder) 08-31-19 [facility] Repository (1 source) Sulfamethoxazole Drug Allergy 08-31-19 [facility] Repository (1 source) Trimethoprim Drug Allergy 08-31-19 [facility] Repository Encounters Encounter Date Encounter Type Care Provider Facility Start: 01-17-2023 End: 01-18-2023 ambulatory BLANCA VARGAS [facility] Start: 10-21-2022 End: 10-21-2022 ambulatory Devaughn Khadijah Other [employer] Other Start: 10-21-2022 Telephone encounter Devaughn Khadijah [facility] Start: 10-18-2022 End: 10-18-2022 ambulatory Devaughn Khadijah Other [employer] Other Start: 10-18-2022 Telephone encounter Devaughn Khadijah [facility] Start: 10-08-2022 End: 10-08-2022 ambulatory Devaughn Khadijah Other [employer] Other Start: 06-27-2023 Office outpatient visit 15 minutes Devaughn Khadijah [facility] Start: 10-01-2022 End: 10-01-2022 ambulatory Erik Sanderson Other [place] [employer] Other Start: 10-01-2022 Office outpatient visit 25 minutes Erik Sanderson [facility] Start: 08-31-2022 End: 09-01-2022 ambulatory ЕЛЕНА OLSEN Facility::[id number] Start: 08-30-2022 End: 09-04-2022 Evaluation and management of inpatient Eldon López Facility:[facility] Start: 07-05-2022 End: 07-07-[address] ERIK RHODES . Facility: Start: 05-04-2022 End: 05-04-2022 ambulatory ROBERTO HEBERT Facility: Start: 04-19-2022 End: 04-19-[address] ERIK RHODES . Facility: Start: 03-14-2022 End: 03-14-[address] BOOTH LISTED REQUEST Facility: Start: 10-24-2021 End: 10-24-2021 ambulatory KENDRA KEVIN . Facility: Start: 08-29-2020 End: 08-29-2020 Subsequent hospital visit by physician [facility] Start: 02-03-2020 End: 02-03-2020 Subsequent hospital visit by physician [facility] Medications Current Medications Medication Drug Class(es) [...] mouth every morning (before breakfast) 0 Active [id number] 200 actuat albuterol 0.09 mg/actuat metered dose [...] Once a day Active polyethylene glycol 3350 88706 mg powder for oral solution (3 sources) [...] Category Payer Self-pay 2022 Unknown [id number] 2022 Medicare [id number] 2020 Medicare [id number] 2019 Medicare [id number] 2019 Unknown [id number] 2014 Medicare [employer]MANA MEDICARE [facility] [id number] 2014-Present [address] [address] [place] [address] [id number] 1950 Unknown [id number] 1950 Unknown [id number] 1950 Unknown [id number] 1950 Unknown [id number] 1950 Unknown [id number] 1950 Unknown [id number] 1950 Unknown [id number] Medicare [id number] Unknown [id number] Plan of Treatment Date Care Activity Detail Author Start: 12-13-2020 Influenza vaccination Flu vacc ine (Season Ended) [facility] [employer] Phone: Start: 04-30-2020 Creatinine measurement Creatinine mo nitoring [place], [place] Start: 04-30-2020 Potassium monitoring Potassium monit oring [place] Start: 12-14-2019 Influenza vaccination Flu vaccine (# 1) [place] Start: 02-08-2019 Annual Wellness Visi t (AWV) Annual Wellness Visit (AWV) [place] Start: 09-11-2015 Pneumococcal 65+ yea rs Vaccine (1 of 1 - PPSV23) Pneumococcal 65+ years Vaccine (1 of 1 - PPSV23) [place], [place] Start: 2000 Screening for malign ant neoplasm of colon Colon cancer screen colonoscopy [place], [place] Start: 2000 Shingles Vaccine (1 of 2) Ordoñez gles Vaccine (1 of 2) [place], [place] Start: 1969 DTaP/Tdap/Td vaccine (1 - Tdap) DTaP/Tdap/Td vaccine (1 - Tdap) [place], [place] Start: 1962 COVID-19 Vaccine (1) COVID-19 Vaccin e (1) [facility] [employer] Phone: Start: 1960 Lipid panel Lipid screen [place], [place] Start: 1950 Hepatitis C screening Hepatitis C sc reekathleen [place], [place] End: 02-03-2020 Culture, Urine Culture, Urine Microbiology Routine Once for 1 Occurrences starting 02/03/2020 until 02/03/2020 [place] Comment on above: Once for 1 Occurrenc es starting 02/03/2020 until 02/03/2020 Culture, Urine [place] End: 08-29-2020 Culture, Urine Culture, Urine Microbiology Routine Once for 1 Occurrences starting 08/29/2020 until 08/29/2020 [facility] [employer] [facility] Phone: Comment on above: Once for 1 [...] disease (2 sources) Atherosclerotic heart disease of [place] coronary artery without angina pectoris; Translations: [Chronic [...] Onset: 2 Chronic Other aftercare (1 source) 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 Start: 08-29-2020 Urinalysis microscop [...] SIGNIFICANT GROWTH Report Status FINAL 01/19/2023 Normal [facility] Comment on above: Performed By: #### U #### [facility] [employer] [address] [place] [address] Armature Inspector: Fredis Miller MD [facility] [address] [place], [place] [id number] Armature Inspector: Rao Espinosa MD UA w/Reflex Cultureon 2022 Bilirubin, SemiQt,Ur Negative Normal NEG [facility] Comment on above: Performed By: #### U MICAO, UAX #### [facility] [address] [place], [place] [id number] Armature Inspector: Rao Espinosa MD Blood, Urine 2+ Abnormal NEG [facility] Comment on above: Performed By: #### U MICAO, UAX #### [facility] [address] [place] [address] Armature Inspector: Rao Espinosa MD Clarity (U) Cloudy Abnormal CLEAR [facility] Comment on above: Performed By: #### U MICAO, UAX #### [facility] [address] [place] [address] Dr[address] [place], [place] [id number] Armature Inspector: Rao Espinosa MD Color (U) Yellow Normal YEL [facility] Comment on above: Performed By: #### U MICAO, UAX #### [address] [place] [address] Armature Inspector: Rao Espinosa MD Glucose Ql (U) TRACE Abnormal NEG [facility] in Hospital Comment on above: Performed By: #### U MICAO, UAX #### [facility] [address] [place], [facility] Armature Inspector: Rao Espinosa MD Ketones Ql (U) Negative Normal NEG [facility] in Hospital Comment on above: Performed By: #### U MICAO, UAX #### [facility] [address] [place], [place] 1496183 Armature Inspector: Rao Espinosa MD Leukocyte esterase Test strip Ql (U) LARGE Abnormal NEG [facility] Comment on above: Performed By: #### U MICAO, UAX #### [facility] [address] [place], [place] 348[address]83 Armature Inspector: Rao Espinosa MD Nitrite,Ur Positive Abnormal NEG [facility] Comment on above: Performed By: #### U MICAO, UAX #### [facility] [address] [place] [address] Dr[place], [place] [id number] Armature Inspector: Rao Espinosa MD PH,Ur 7.0 Normal 5.0-9.0 [facility] Comment on above: Performed By: #### U MICAO, UAX #### [address] [place], [place] [address]83 Armature Inspector: Rao Espinosa MD Protein Ql (U) 1+ mg/dL Abnormal NEG [facility] Comment on above: Performed By: #### U MICAO, UAX #### [address] [place], [place] 83[address]83 Armature Inspector: Rao Espinosa MD Spec. [place],Ur 1.010 Normal 1.010-1.020 [facility] Comment on above: Performed By: #### U MICAO, UAX #### [address] [place], [place] [address]83 Armature Inspector: Rao Espinosa MD Urobilinogen,Ur Normal Normal 0.0-1.0 [facility] Comment on above: Performed By: #### U MICAO, UAX #### [address] [place], [place] [address]28383 Armature Inspector: Rao Espinosa MD Urinalysis,Microon 3 Bacteria 3+ Abnormal NONE [facility] Comment on above: Performed By: #### U MICAO, UAX #### [address] [place], [place] [address]34[address] Armature Inspector: Rao Espinosa MD Epithelial cells LM Ql (Urine sed) 0 TO 2 Normal 0-5 [facility] Comment on above: Performed By: #### U RADHAO, UAX #### [facility] [address] [place] [address] Armature Inspector: Rao Espinosa MD Urine RBC's 5 TO 10 Normal 0-2 [facility] Comment on above: Performed By: #### U MICAO, UAX #### [facility] [address] [place] [address] Armature Inspector: Rao Espinosa MD Urine WBC's GREATER THAN 100 Normal 0-5 [facility] Comment on above: Performed By: #### U NANCY UAX #### [facility] [address] [place] [address] Armature Inspector: Rao Espinosa MD Glucose Poct Glucometerson 0 09-04-2022 Glucose [Mass/Vol] 122 mg/dL Normal [facility] Comment on above: Result Comment: [facility] Glucose Reference Range is dependent on time and content of last meal. Glucose of more than 200 mg/dL in a nonstressed, ambulatory subject supports the diagnosis of Diabetes Mellitus. PERFORMED BY: [facility] [address] [place] [address] PATHOLOGIST GOVERNOR ASSEMBLER BRANDEN WHATLEY M.D. Performed By: #### G LULS #### Point of Care testing , Renal Function Panelon 09-04 Albumin [Mass/Vol] 2.4 g/dL Low 3.5-5.7 [facility] Comment on above: Performed By: #### G LULS #### Point of Care testing , Anion gap [Moles/Vol] 14.8 mmol/L Normal 6.0-15.0 [facility] Comment on above: Performed By: #### G LULS #### Point of Care testing , Calcium [Mass/Vol] 8.6 mg/dL Normal 8.6-10.3 [facility] Comment on above: Performed By: #### G LULS #### Point of Care testing , Chloride [Moles/Vol] 99 mmol/L Normal 98-107 [facility] Comment on above: Performed By: #### G LULS #### Point of Care testing , CO2 [Moles/Vol] 24.7 mmol/L Normal 21.0-31.0 [facility] Comment on above: Performed By: #### G LULS #### Point of Care testing , Creatinine [Mass/Vol] 6.52 mg/dL Significan t change up 0.70-1.30 [facility] Comment on above: Performed By: #### G LULS #### Point of Care testing , Creatinine Clr Calc Pharmacy 16.01 [facility] Comment on above: Result Comment: PERF ORMED BY: [facility] [address] [place] [address] PATHOLOGIST GOVERNOR ASSEMBLER BRANDEN WHATLEY M.D. Performed By: #### G LULS #### Point of Care testing , GFR/1.73 sq M.predicted MDRD (S/P/Bld) [Vol rate/Area] 8.483 mL/min/{1.73_m2} [facility] Comment on above: Performed By: #### G LULS #### Point of Care testing , Glucose [Mass/Vol] 115 mg/dL High 70-100 [facility] Comment on above: Result Comment: [place] Glucose Reference Range is dependent on time and content of last meal. Glucose of more than 200 mg/dL in a nonstressed, ambulatory subject supports the diagnosis of Diabetes Mellitus. ADA recommended reference range Performed By: #### G LULS #### Point of Care testing , Phosphate [Mass/Vol] 6.4 mg/dL Normal 3.7-7.2 [facility] Comment on above: Performed By: #### G LULS #### Point of Care testing , Potassium [Moles/Vol] 4.5 mmol/L Normal 3.5-5.1 [facility] Comment on above: Performed By: #### G LULS #### Point of Care testing , Sodium [Moles/Vol] 134 mmol/L Low 136-145 [facility] Comment on above: Performed By: #### G LULS #### Point of Care testing , Urea nitrogen [Mass/Vol] 76 mg/dL High 7-25 [facility] Comment on above: Performed By: #### G LULS #### Point of Care testing , COVID-19 FRMCon 09-03-2022 SARS-CoV-2 (COVID-19) RNA JASON+probe Ql (Unsp spec) Negative Normal Negative [facility] Comment on above: Order Comment: Healt hcare Worker?: N Result Comment: Testing for SARS-CoV-2 by RT-PCR This test was developed and its performance characteristics determined by [employer] and validated at the [facility]. This test has not been FDA [...] is terminated or revoked sooner. PERFORMED BY: [facility] [address] [place] [address] PATHOLOGIST GOVERNOR ASSEMBLER BRANDEN WHATLEY M.D. Performed By: #### F E and TIBC, [id number], ODALIS #### [facility] [address] Glucose Poct Glucometerson 0 09-03-2022 Glucose [Mass/Vol] 140 mg/dL Normal [facility] Comment on above: Result Comment: [place] Glucose Reference Range is dependent on time and content of last meal. Glucose of more than 200 mg/dL in a nonstressed, ambulatory subject supports the diagnosis of Diabetes Mellitus. PERFORMED BY: [facility] [address] [facility] [place] [address] PATHOLOGIST GOVERNOR ASSEMBLER BRANDEN WHATLEY M.D. Performed By: #### G LULS #### Point of Care testing , Glucose [Mass/Vol] 106 mg/dL Normal [facility] Comment on above: Result Comment: [place] Glucose Reference Range is dependent on time and content of last meal. Glucose of more than 200 mg/dL in a nonstressed, ambulatory subject supports the diagnosis of Diabetes Mellitus. PERFORMED BY: [facility] [address] [facility] [place] [address] PATHOLOGIST GOVERNOR ASSEMBLER BRANDEN WHATLEY M.D. Performed By: #### G LULS #### Point of Care testing , Glucose [Mass/Vol] 111 mg/dL Normal [facility] Comment on above: Result Comment: [facility] Glucose Reference Range is dependent on time and content of last meal. Glucose of more than 200 mg/dL in a nonstressed, ambulatory subject supports the diagnosis of Diabetes Mellitus. PERFORMED BY: [facility] [address] [facility] [place] [address] PATHOLOGIST GOVERNOR ASSEMBLER BRANDEN WHATLEY M.D. Performed By: #### G LULS #### Point of Care testing , Glucose [Mass/Vol] 152 mg/dL Normal [facility] Comment on above: Result Comment: [facility] Glucose Reference Range is dependent on time and content of last meal. Glucose of more than 200 mg/dL in a nonstressed, ambulatory subject supports the diagnosis of Diabetes Mellitus. PERFORMED BY: [facility] [address] [facility] [place] [address] PATHOLOGIST GOVERNOR ASSEMBLER BRANDEN WHATLEY M.D. Performed By: #### G LULS #### Point of Care testing , Hemogram CBC Without Diffon 09-03-2022 Erythrocyte distribution width (RBC) [Ratio] 14.9 % High 12.0-14.8 [facility] Comment on above: Performed By: #### G LULS #### Point of Care testing , Hematocrit (Bld) [Volume fraction] 25.1 % Low 38.8-50.0 [facility] Comment on above: Performed By: #### G LULS #### Point of Care testing , Hemoglobin (Bld) [Mass/Vol] 8.4 g/dL Low 13.0-17.0 [facility] Comment on above: Performed By: #### G LULS #### Point of Care testing , MCH (RBC) [Entitic mass] 29.5 pg Normal 27.5-35.2 [facility] Comment on above: Performed By: #### G LULS #### Point of Care testing , MCV (RBC) [Entitic vol] 87.8 fL Normal 83.5-101 [facility] Comment on above: Performed By: #### G LULS #### Point of Care testing , Mean Corpuscular HGB Conc 33.5 g/dL Normal 32.5-35.6 [facility] Comment on above: Performed By: #### G LULS #### Point of Care testing , Platelet mean volume (Bld) [Entitic vol] 8.0 fL Normal 6.6-10.1 [facility] Comment on above: Result Comment: PERF ORMED BY: [facility] [address] [place] [address] PATHOLOGIST GOVERNOR ASSEMBLER BRANDEN WHATLEY M.D. Performed By: #### G SUSIELS #### Point of Care testing , Platelets (Bld) [#/Vol] 111 10*3/uL Significant change down 150-450 [facility] Comment on above: Performed By: #### G LULS #### Point of Care testing , RBC (Bld) [#/Vol] 2.86 10*6/uL Low 3.90-5.60 [facility] Comment on above: Performed By: #### G LULS #### Point of Care testing , WBC (Bld) [#/Vol] 8.1 10*3/uL Normal 4.1-10.5 [facility] Comment on above: Performed By: #### G LULS #### Point of Care testing , Hepatitis Acute Panelon 05-2 HBsAg Screen Negative Normal Negative [facility] Comment on above: Order Comment: pt no t in room Performed By: #### F E and TIBC, [id number], ODALIS #### [address] Hepatitis A Antibody IgM Negative Normal Negative [facility] Comment on above: Order Comment: pt no t in room Performed By: #### F E and TIBC, [id number], ODALIS #### [address] Hepatitis B Core Antibody IgM Negative Normal Negative [facility] Comment on above: Order Comment: pt no t in room Result Comment: Ve rified by repeat analysis Performed By: #### F E and TIBC, [id number], ODALIS #### [address] Hepatitis C Virus Antibody Non-Reactive Normal Non Reactive [facility] Comment on above: Order Comment: pt no t in room Performed By: #### F E and TIBC, [id number], ODALIS #### [facility] [address] [place] [address] Interpretation Hepatitis C Normal . [facility] Comment on above: Order Comment: pt no t in room Result Comment: Not infected with HCV unless early or acute infection is suspected (which may be delayed in an immunocompromised individual), or other evidence exists to indicate HCV infection. Performed By: #### F E and TIBC, [id number], ODALIS #### [facility] [address] [place] [address] Hepatitis B Core Antibodyon 09-03-2022 Hepatitis B Core Antibody Negative Normal Negative [facility] Comment on above: Order Comment: pt no t in room Result Comment: Perf ormed at: - [facility] [id number] Armature Inspector: Mata Pérez PhD, Phone: [phone] PERFORMED BY: [place] [address] PATHOLOGIST GOVERNOR ASSEMBLER BRANDEN WHATLEY M.D. Performed By: #### F E and TIBC, [id number], ODALIS #### [facility] [address] Hepatitis B Surface Antibody on 09-03-2022 Hepatitis B Surface Antibody Reactive Normal . [facility] Comment on above: Order Comment: pt no t in room Result Comment: Non Reactive: Inconsistent with immunity, less than 10 mIU/mL Reactive: Consistent with immunity, greater than 9.9 mIU/mL Performed By: #### F E and TIBC, [id number], ODALIS #### [facility] [address] Renal Function Panelon 09-03 Albumin [Mass/Vol] 2.4 g/dL Low 3.5-5.7 [facility] Comment on above: Performed By: #### G LULS #### Point of Care testing , Anion gap [Moles/Vol] 16.5 mmol/L High 6.0-15.0 [facility] Comment on above: Performed By: #### G LULS #### Point of Care testing , Calcium [Mass/Vol] 8.7 mg/dL Normal 8.6-10.3 [facility] Comment on above: Performed By: #### G LULS #### Point of Care testing , Chloride [Moles/Vol] 101 mmol/L Normal 98-107 [facility] Comment on above: Performed By: #### G LULS #### Point of Care testing , CO2 [Moles/Vol] 22.4 mmol/L Normal 21.0-31.0 [facility] Comment on above: Performed By: #### G LULS #### Point of Care testing , Creatinine [Mass/Vol] 8.19 mg/dL Significan t change up 0.70-1.30 [facility] Comment on above: Performed By: #### G LULS #### Point of Care testing , Creatinine Clr Calc Pharmacy 12.70 Normal [facility] Comment on above: Result Comment: PERF ORMED BY: [address] [place] [address] PATHOLOGIST GOVERNOR ASSEMBLER BRANDEN WHATLEY M.D. Performed By: #### G SUSIELS #### Point of Care testing , GFR/1.73 sq M.predicted MDRD (S/P/Bld) [Vol rate/Area] 6.452 mL/min/{1.73_m2} Normal [facility] Comment on above: Performed By: #### G LULS #### Point of Care testing , Glucose [Mass/Vol] 112 mg/dL High 70-100 [facility] Comment on above: Result Comment: [facility] Glucose Reference Range is dependent on time and content of last meal. Glucose of more than 200 mg/dL in a nonstressed, ambulatory subject supports the diagnosis of Diabetes Mellitus. ADA recommended reference range Performed By: #### G LULS #### Point of Care testing , Phosphate [Mass/Vol] 6.7 mg/dL Normal 3.7-7.2 [facility] Comment on above: Performed By: #### G LULS #### Point of Care testing , Potassium [Moles/Vol] 4.9 mmol/L Normal 3.5-5.1 [facility] Comment on above: Performed By: #### G LULS #### Point of Care testing , Sodium [Moles/Vol] 135 mmol/L Low 136-145 [facility] Comment on above: Performed By: #### G LULS #### Point of Care testing , Urea nitrogen [Mass/Vol] 99 mg/dL High 7-25 [facility] Comment on above: Performed By: #### G LULS #### Point of Care testing , Stool Occult Blood (Immuno)o n 09-03-2022 Stool Occult Blood (Immuno) Occult Blood (Immuno) Positive for Occult Blood by Immunochemical Methodology Reference range = Negative PERFORMED BY: [place] [address] [place] [address] PATHOLOGIST GOVERNOR ASSEMBLER BRANDEN WHATLEY M.D. [facility] Comment on above: Performed By: #### G LULS #### Point of Care testing , XR chest 1V portableon 09-03 XR chest 1V portable [facility] [place] [address] [place] [id number] XRay Report Signed Patient: Matt Kelly MR#: [id number] : 1950 Acct:[id number] Age/Sex: 71 / M ADM Date: 08/30/22 Loc: Room: [address] [place] [address] Type: ADM IN Attending Dr: Eldon Lpóez DO Copies to: MD Eldon Hurst DO [...] Rafi Morales M.D.09/03/2022 3:02 PM Dictation Location: [place] [address] Transcribed By: [facility] 09/03/22 1502 Dictated By: Rafi Morales II, MD 09/03/22 1501 Signed By: 09/03/22 1502 [facility] Complete Blood Count Auto Di ffon 09-02-2022 Basophils (Bld) [#/Vol] 0.1 10*3/uL Normal 0.0-0.2 [facility] Comment on above: Result Comment: PERF ORMED BY: [address] [address] PATHOLOGIST GOVERNOR ASSEMBLER BRANDEN WHATLEY M.D. Performed By: #### G SUSIELS #### Point of Care testing , Basophils/100 WBC (Bld) 0.4 % Normal . [facility] Comment on above: Performed By: #### G SUSIELS #### Point of Care testing , Eosinophils (Bld) [#/Vol] 0.1 10*3/uL Normal 0.0-0.45 [facility] Comment on above: Performed By: #### G SUSIELS #### Point of Care testing , Eosinophils/100 WBC (Bld) 0.5 % Normal . [facility] Comment on above: Performed By: #### G SUSIELS #### Point of Care testing , Erythrocyte distribution width (RBC) [Ratio] 14.8 % Normal 12.0-14.8 [facility] Comment on above: Performed By: #### G SUSIELS #### Point of Care testing , Hematocrit (Bld) [Volume fraction] 26.7 % Low 38.8-50.0 [facility] Comment on above: Performed By: #### G SUSIELS #### Point of Care testing , Hemoglobin (Bld) [Mass/Vol] 8.7 g/dL Low 13.0-17.0 [facility] Comment on above: Performed By: #### G SUSIELS #### Point of Care testing , Lymphocytes (Bld) [#/Vol] 0.6 10*3/uL Low 1.00-4.8 [facility] Comment on above: Performed By: #### G SUSIELS #### Point of Care testing , Lymphocytes/100 WBC (Bld) 3.6 % Normal . [facility] Comment on above: Performed By: #### G LULS #### Point of Care testing , MCH (RBC) [Entitic mass] 28.6 pg Normal 27.5-35.2 [facility] Comment on above: Performed By: #### G LULS #### Point of Care testing , MCV (RBC) [Entitic vol] 87.9 fL Normal 83.5-101 [facility] Comment on above: Performed By: #### G SUSIELS #### Point of Care testing , Mean Corpuscular HGB Conc 32.5 g/dL Normal 32.5-35.6 [facility] Comment on above: Performed By: #### Young FRANK #### Point of Care testing , Monocytes (Bld) [#/Vol] 0.9 10*3/uL High 0.0-0.8 [facility] Comment on above: Performed By: #### Young FRANK #### Point of Care testing , Monocytes/100 WBC (Bld) 5.9 % Normal . [facility] Comment on above: Performed By: #### Young FRANK #### Point of Care testing , Neutrophils (Bld) [#/Vol] 13.9 10*3/uL High 1.8-7.7 [facility] Comment on above: Performed By: #### Young FRANK #### Point of Care testing , Neutrophils/100 WBC (Bld) 89.6 % Normal . [facility] Comment on above: Performed By: #### Young RICHARDSLS #### Point of Care testing , NRBC% 0.1 /100{WBC} Normal 0-0.5 [facility] Comment on above: Performed By: #### Young FRANK #### Point of Care testing , Platelet mean volume (Bld) [Entitic vol] 7.8 fL Normal 6.6-10.1 [facility] Comment on above: Performed By: #### Young FRANK #### Point of Care testing , Platelets (Bld) [#/Vol] 146 10*3/uL Low 150-450 [facility] Comment on above: Performed By: #### Young FRANK #### Point of Care testing , RBC (Bld) [#/Vol] 3.04 10*6/uL Low 3.90-5.60 [facility] Comment on above: Performed By: #### Young FRANK #### Point of Care testing , WBC (Bld) [#/Vol] 15.5 10*3/uL High 4.1-10.5 [facility] Comment on above: Performed By: #### Young FRANK #### Point of Care testing , Comprehensive Metabolic Pane real 09-02-2022 Albumin [Mass/Vol] 2.5 g/dL Low 3.5-5.7 [facility] Comment on above: Performed By: #### C BC, RENAL, CMP ####[facility] [place] [address] [facility] Albumin/Globulin [Mass ratio] 0.8 {ratio} Normal [facility] Comment on above: Performed By: #### C BC, RENAL, CMP ####[place] [address] [place] [address] [facility] ALP [Catalytic activity/Vol] 97 U/L Normal 34-104 [facility] Comment on above: Performed By: #### C BC, RENAL, CMP ####[address] [place] [address] [facility] ALT [Catalytic activity/Vol] 27 U/L Normal 7-52 [facility] Comment on above: Performed By: #### C BC, RENAL, CMP ####[address] [place] [address] [facility] Anion gap [Moles/Vol] 15.2 mmol/L High 6.0-15.0 [facility] Comment on above: Performed By: #### C BC, RENAL, CMP ####[address] [address] [facility] AST [Catalytic activity/Vol] 14 U/L Normal 13-39 [facility] Comment on above: Performed By: #### C BC, RENAL, CMP ####[place] [id number] [facility] Bilirubin [Mass/Vol] 0.3 mg/dL Normal 0.3-1.0 [facility] Comment on above: Performed By: #### C BC, RENAL, CMP ####[address] [address] [facility] Calcium [Mass/Vol] 8.5 mg/dL Low 8.6-10.3 [facility] Comment on above: Performed By: #### C BC, RENAL, CMP ####[address] [place] [address] [facility] Chloride [Moles/Vol] 106 mmol/L Normal 98-107 [facility] Comment on above: Performed By: #### C BC, RENAL, CMP ####[place] [id number] [facility] CO2 [Moles/Vol] 20.3 mmol/L Low 21.0-31.0 [facility] Comment on above: Performed By: #### C BC, RENAL, CMP ####[place] [id number] [facility] Creatinine [Mass/Vol] 6.98 mg/dL High 0.70-1.30 [facility] Comment on above: Performed By: #### C BC, RENAL, CMP ####[address] Creatinine Clr Calc Pharmacy 14.33 [facility] Comment on above: Performed By: #### C BC, RENAL, CMP ####[address] GFR/1.73 sq M.predicted MDRD (S/P/Bld) [Vol rate/Area] 7.816 mL/min/{1.73_m2} [facility] Comment on above: Performed By: #### C BC, RENAL, CMP ####[place] [id number] [facility] Globulin (S) [Mass/Vol] 3.1 g/dL [facility] Comment on above: Performed By: #### C BC, RENAL, CMP ####[place] [id number] [facility] Glucose [Mass/Vol] 118 mg/dL High 70-100 [facility] Comment on above: Result Comment: [place] Glucose Reference Range is dependent on time and content of last meal. Glucose of more than 200 mg/dL in a nonstressed, ambulatory subject supports the diagnosis of Diabetes Mellitus. ADA recommended reference range Performed By: #### C BC, RENAL, CMP ####[address] Potassium [Moles/Vol] 5.5 mmol/L High 3.5-5.1 [facility] Comment on above: Performed By: #### C BC, RENAL, CMP ####[facility] [place] [id number] [facility] Protein [Mass/Vol] 5.6 g/dL Low 6.4-8.9 [facility] Comment on above: Performed By: #### C BC, RENAL, CMP ####[facility] [place] [id number] [facility] Sodium [Moles/Vol] 136 mmol/L Normal 136-145 [facility] Comment on above: Performed By: #### C BC, RENAL, CMP ####[place] [address] [place] [id number] [facility] Urea nitrogen [Mass/Vol] 92 mg/dL High 7-25 [facility] Comment on above: Performed By: #### C BC, RENAL, CMP ####[place] [address] [place] [id number] [facility] Consultation Noteon 09-03-19 23 Consultation Note [id number] .[id number]:127 Normal [facility] Glucose Poct Glucometerson 0 09-02-2022 Commemt1 Glu2: Cleaned Meter Normal [facility] Comment on above: Result Comment: PERF ORMED BY: [facility] [address] [place] [id number] PATHOLOGIST [employer] BRANDEN WHATLEY M.D. Performed By: #### G LULS #### Point of Care testing , Glucose [Mass/Vol] 244 mg/dL Normal [facility] Comment on above: Result Comment: [place] Glucose Reference Range is dependent on time and content of last meal. Glucose of more than 200 mg/dL in a nonstressed, ambulatory subject supports the diagnosis of Diabetes Mellitus. Performed By: #### G LULS #### Point of Care testing , Glucose [Mass/Vol] 161 mg/dL Normal [facility] Comment on above: Result Comment: [place] om Glucose Reference Range is dependent on time and content of last meal. Glucose of more than 200 mg/dL in a nonstressed, ambulatory subject supports the diagnosis of Diabetes Mellitus. PERFORMED BY: [facility] [address] [place] [address] PATHOLOGIST [employer] BRANDEN WHATLEY M.D. Performed By: #### G LUDAVID #### Point of Care testing , Insurance Correspondence Off ice09-02-2022 Insurance Correspondence Office [id number]:127 Normal [facility] Renal Function Panelon 09-02 Phosphate [Mass/Vol] 6.5 mg/dL Normal 3.7-7.2 [facility] Comment on above: Result Comment: PERF ORMED BY: [facility] [address] [place] [address] PATHOLOGIST [employer] BRANDEN WHATLEY M.D. Performed By: #### C BC, RENAL, CMP ####[place] [id number] [facility] Complete Blood Count Auto Di ffon 09-01-2022 Basophils (Bld) [#/Vol] 0.1 10*3/uL Normal 0.0-0.2 [facility] Comment on above: Result Comment: PERF ORMED BY: [facility] [address] [place] [address] PATHOLOGIST [employer] BRANDEN WHATLEY M.D. Performed By: #### R ENAL, CBC, CMP ####[place] [phone] [facility] Basophils/100 WBC (Bld) 1.2 % Normal . [facility] Comment on above: Performed By: #### R ENAL, CBC, CMP ####[place] [id number] [facility] Eosinophils (Bld) [#/Vol] 0.3 10*3/uL Normal 0.0-0.45 [facility] Comment on above: Performed By: #### R ENAL, CBC, CMP ####[address] Eosinophils/100 WBC (Bld) 5.5 % Normal . [facility] Comment on above: Performed By: #### R ENAL, CBC, CMP ####[address] Erythrocyte distribution width (RBC) [Ratio] 14.7 % Normal 12.0-14.8 [facility] Comment on above: Performed By: #### R ENAL, CBC, CMP ####[address] Hematocrit (Bld) [Volume fraction] 25.2 % Low 38.8-50.0 [facility] Comment on above: Performed By: #### R ENAL, CBC, CMP ####[address] Hemoglobin (Bld) [Mass/Vol] 8.3 g/dL Low 13.0-17.0 [facility] Comment on above: Performed By: #### R ENAL, CBC, CMP ####[address] Lymphocytes (Bld) [#/Vol] 0.9 10*3/uL Low 1.00-4.8 [facility] Comment on above: Performed By: #### R ENAL, CBC, CMP ####[address] Lymphocytes/100 WBC (Bld) 14.6 % Normal . [facility] Comment on above: Performed By: #### R ENAL, CBC, CMP ####[address] MCH (RBC) [Entitic mass] 29.0 pg Normal 27.5-35.2 [facility] Comment on above: Performed By: #### R ENAL, CBC, CMP ####[place] [phone] [facility] MCV (RBC) [Entitic vol] 87.7 fL Normal 83.5-101 [facility] Comment on above: Performed By: #### R ENAL, CBC, CMP ####[address] Mean Corpuscular HGB Conc 33.0 g/dL Normal 32.5-35.6 [facility] Comment on above: Performed By: #### R ENAL, CBC, CMP ####[address] Monocytes (Bld) [#/Vol] 0.8 10*3/uL Normal 0.0-0.8 [facility] Comment on above: Performed By: #### R ENAL, CBC, CMP ####[address] Monocytes/100 WBC (Bld) 12.6 % Normal . [facility] Comment on above: Performed By: #### R ENAL, CBC, CMP ####[address] Neutrophils (Bld) [#/Vol] 4.0 10*3/uL Normal 1.8-7.7 [facility] Comment on above: Performed By: #### R ENAL, CBC, CMP ####[address] Neutrophils/100 WBC (Bld) 66.1 % Normal . [facility] Comment on above: Performed By: #### R ENAL, CBC, CMP ####[address] NRBC% 0.1 /100{WBC} Normal 0-0.5 [facility] Comment on above: Performed By: #### R ENAL, CBC, CMP ####[address] Platelet mean volume (Bld) [Entitic vol] 7.9 fL Normal 6.6-10.1 [facility] Comment on above: Performed By: #### R ENAL, CBC, CMP ####[address] Platelets (Bld) [#/Vol] 145 10*3/uL Low 150-450 [facility] Comment on above: Performed By: #### R TELLY CBC, CMP ####[address] RBC (Bld) [#/Vol] 2.87 10*6/uL Low 3.90-5.60 [facility] Comment on above: Performed By: #### R TELLY, CBC, CMP ####[address] WBC (Bld) [#/Vol] 6.1 10*3/uL Normal 4.1-10.5 [facility] Comment on above: Performed By: #### Fadia VARNER, CBC, CMP ####[address] Comprehensive Metabolic Pane real 09-01-2022 Albumin [Mass/Vol] 2.7 g/dL Low 3.5-5.7 [facility] Comment on above: Performed By: #### R TELLY, CBC, CMP ####[address] Albumin/Globulin [Mass ratio] 0.9 {ratio} Normal [facility] Comment on above: Performed By: #### R TELLY, CBC, CMP ####[address] ALP [Catalytic activity/Vol] 107 U/L High 34-104 [facility] Comment on above: Performed By: #### R ENAL, CBC, CMP ####[address] ALT [Catalytic activity/Vol] 32 U/L Normal 7-52 [facility] Comment on above: Performed By: #### R ENAL, CBC, CMP ####[address] Anion gap [Moles/Vol] 14.1 mmol/L Normal 6.0-15.0 [facility] Comment on above: Performed By: #### R TELLY CBC, CMP ####[address] [address] [facility] AST [Catalytic activity/Vol] 21 U/L Normal 13-39 [facility] Comment on above: Performed By: #### R TELLY, CBC, CMP ####[address] [address] [facility] Bilirubin [Mass/Vol] 0.4 mg/dL Normal 0.3-1.0 [facility] Comment on above: Performed By: #### R TELLY, CBC, CMP ####[place] [phone] [facility] Calcium [Mass/Vol] 8.9 mg/dL Normal 8.6-10.3 [facility] Comment on above: Performed By: #### Fadia VARNER, CBC, CMP ####[place] [phone] [facility] Chloride [Moles/Vol] 110 mmol/L High 98-107 [facility] Comment on above: Performed By: #### R TELLY CBC, CMP ####[place] [phone] [facility] CO2 [Moles/Vol] 17.7 mmol/L Low 21.0-31.0 [facility] Comment on above: Performed By: #### R TELLY, CBC, CMP ####[place] [phone] [facility] Creatinine [Mass/Vol] 6.68 mg/dL Significan t change up 0.70-1.30 [facility] Comment on above: Performed By: #### R TELLY, CBC, CMP ####[place] [phone] [facility] Creatinine Clr Calc Pharmacy 14.96 Normal [facility] Comment on above: Performed By: #### R ENDEVORA, CBC, CMP ####[place] [phone] [place] GFR/1.73 sq M.predicted MDRD (S/P/Bld) [Vol rate/Area] 8.239 mL/min/{1.73_m2} [facility] Comment on above: Performed By: #### R JANET VARNER, CMP ####[place] [id number] [facility] Globulin (S) [Mass/Vol] 3.0 g/dL Normal [facility] Comment on above: Performed By: #### R TELLY CBC, CMP ####[place] [phone] [facility] Glucose [Mass/Vol] 90 mg/dL Normal 70-100 [facility] Comment on above: Result Comment: [facility] Glucose Reference Range is dependent on time and content of last meal. Glucose of more than 200 mg/dL in a nonstressed, ambulatory subject supports the diagnosis of Diabetes Mellitus. ADA recommended reference range Performed By: #### JANET WYNN, CMP ####[place] [phone] [facility] Potassium [Moles/Vol] 4.8 mmol/L Normal 3.5-5.1 [facility] Comment on above: Performed By: #### R JANET VARNER, CMP ####[place] [phone] [facility] Protein [Mass/Vol] 5.7 g/dL Low 6.4-8.9 [facility] Comment on above: Performed By: #### R JANET VARNER, CMP ####[place] [phone] [facility] Sodium [Moles/Vol] 137 mmol/L Normal 136-145 [facility] Comment on above: Performed By: #### R TELLY CBC, CMP ####[place] [phone] [facility] Urea nitrogen [Mass/Vol] 83 mg/dL High 7-25 [facility] Comment on above: Performed By: #### R TELLY CBC, CMP ####[place] [phone] [facility] Glucose Poct Glucometerson 0 09-01-2022 Commemt1 Glu2: Cleaned Meter Normal [facility] Comment on above: Result Comment: PERF ORMED BY: [facility] [address] [place] [id number] PATHOLOGIST [employer] BRANDEN WHATLEY M.D. Performed By: #### G LULS #### Point of Care testing , Glucose [Mass/Vol] 100 mg/dL Normal [facility] Comment on above: Result Comment: [place] om Glucose Reference Range is dependent on time and content of last meal. Glucose of more than 200 mg/dL in a nonstressed, ambulatory subject supports the diagnosis of Diabetes Mellitus. PERFORMED BY: [address] [place] [address] PATHOLOGIST [employer] BRANDEN WAHTLEY M.D. Performed By: #### G LULS ####Point of Care testing, Glucose [Mass/Vol] 96 mg/dL Normal [facility] Comment on above: Result Comment: [place] om Glucose Reference Range is dependent on time and content of last meal. Glucose of more than 200 mg/dL in a nonstressed, ambulatory subject supports the diagnosis of Diabetes Mellitus. Performed By: #### G LULS #### Point of Care testing , Glucose [Mass/Vol] 95 mg/dL Normal [facility] Comment on above: Result Comment: [place] om Glucose Reference Range is dependent on time and content of last meal. Glucose of more than 200 mg/dL in a nonstressed, ambulatory subject supports the diagnosis of Diabetes Mellitus. PERFORMED BY: [facility] [address] [place] [id number] PATHOLOGIST [employer] BRANDEN WHATLEY M.D. Performed By: #### G LULS #### Point of Care testing , Renal Function Panelon 09-01 Phosphate [Mass/Vol] 7.0 mg/dL Normal 3.7-7.2 [facility] Comment on above: Result Comment: PERF ORMED BY: [facility] [address] [place] [id number] PATHOLOGIST [employer] BRANDEN WHATLEY M.D. Performed By: #### R ENAL, CBC, CMP ####[facility] [address] [place] [address] [place] ABO/Rh Retypeon 08-31-2022 ABO/RH Recheck Result Negative Normal [facility] Comment on above: Order Comment: NEEDS DRAWN Result Comment: PERF ORMED BY: [place] [address] PATHOLOGIST [employer] BRANDEN WHATLEY M.D. Basic Metabolic Panelon 08-13 Anion gap [Moles/Vol] 16.5 mmol/L High 6.0-15.0 [facility] Comment on above: Performed By: #### F E and TIBC, [id number], ODALIS #### [facility] [address] Calcium [Mass/Vol] 8.3 mg/dL Low 8.6-10.3 [facility] Comment on above: Performed By: #### F E and TIBC, [id number], ODALIS #### [facility] [address] Chloride [Moles/Vol] 111 mmol/L High 98-107 [facility] Comment on above: Performed By: #### F E and TIBC, [id number], ODALIS #### [facility] [address] CO2 [Moles/Vol] 14.2 mmol/L Low 21.0-31.0 [facility] Comment on above: Performed By: #### F E and TIBC, [id number], ODALIS #### [facility] [address] [place] [address] [place] Creatinine [Mass/Vol] 5.39 mg/dL Significan t change up 0.70-1.30 [facility] Comment on above: Performed By: #### F E and TIBC, [id number], ODALIS #### [facility] [address] [place] [address] [place] Creatinine Clr Calc Pharmacy 18.62 Normal [facility] Comment on above: Performed By: #### F E and TIBC, [id number], ODALIS #### [facility] [address] GFR/1.73 sq M.predicted MDRD (S/P/Bld) [Vol rate/Area] 10.659 mL/min/{1.73_m2} Normal [facility] Comment on above: Performed By: #### F E and TIBC, [id number], ODALIS #### [facility] [address] Glucose [Mass/Vol] 104 mg/dL High 70-100 [facility] Comment on above: Result Comment: [facility] Glucose Reference Range is dependent on time and content of last meal. Glucose of more than 200 mg/dL in a nonstressed, ambulatory subject supports the diagnosis of Diabetes Mellitus. ADA recommended reference range Performed By: #### F E and TIBC, [id number], ODALIS #### [address] Potassium [Moles/Vol] 4.7 mmol/L Normal 3.5-5.1 [facility] Comment on above: Performed By: #### F E and TIBC, [id number], ODALIS #### [address] Sodium [Moles/Vol] 137 mmol/L Normal 136-145 [facility] Comment on above: Performed By: #### F E and TIBC, [id number], ODALIS #### [address] Urea nitrogen [Mass/Vol] 73 mg/dL High 7-25 [facility] Comment on above: Performed By: #### F E and TIBC, [id number], ODALIS #### [address] Complete Blood Count Auto Di ffon 08-31-2022 Basophils (Bld) [#/Vol] 0.0 10*3/uL Normal 0.0-0.2 [facility] Comment on above: Result Comment: PERF ORMED BY: [address] [place] [address] PATHOLOGIST [employer] BRANDEN WHATLEY M.D. Performed By: #### B MP, CBC, MG ####[address] Basophils/100 WBC (Bld) 0.8 % Normal . [facility] Comment on above: Performed By: #### B MP, CBC, MG ####[address] Eosinophils (Bld) [#/Vol] 0.2 10*3/uL Normal 0.0-0.45 [facility] Comment on above: Performed By: #### B MP, CBC, MG ####[address] Eosinophils/100 WBC (Bld) 4.2 % Normal . [facility] Comment on above: Performed By: #### B MP, CBC, MG ####[address] Erythrocyte distribution width (RBC) [Ratio] 14.9 % High 12.0-14.8 [facility] Comment on above: Performed By: #### B MP, CBC, MG ####[address] Hematocrit (Bld) [Volume fraction] 19.8 % Off scale low 38.8-50.0 [facility] Comment on above: Result Comment: Crit ical Result HCT:19.8 called to and read back by: [id number] on 08/31/2022 11:09:15 by:SULY. Performed By: #### B MP, CBC, MG ####[address] Hemoglobin (Bld) [Mass/Vol] 6.4 g/dL Low 13.0-17.0 [facility] Comment on above: Performed By: #### B MP, CBC, MG ####[address] Lymphocytes (Bld) [#/Vol] 0.8 10*3/uL Low 1.00-4.8 [facility] Comment on above: Performed By: #### B MP, CBC, MG ####[address] Lymphocytes/100 WBC (Bld) 14.6 % Normal . [facility] Comment on above: Performed By: #### B MP, CBC, MG ####[address] MCH (RBC) [Entitic mass] 28.7 pg Normal 27.5-35.2 [facility] Comment on above: Performed By: #### B MP, CBC, MG ####[address] MCV (RBC) [Entitic vol] 88.3 fL Normal 83.5-101 [facility] Comment on above: Performed By: #### B MP, CBC, MG ####[address] Mean Corpuscular HGB Conc 32.5 g/dL Normal 32.5-35.6 [facility] Comment on above: Performed By: #### B MP, CBC, MG ####[address] Monocytes (Bld) [#/Vol] 0.5 10*3/uL Normal 0.0-0.8 [facility] Comment on above: Performed By: #### B MP, CBC, MG ####[address] Monocytes/100 WBC (Bld) 9.8 % Normal . [facility] Comment on above: Performed By: #### B MP, CBC, MG ####[address] Neutrophils (Bld) [#/Vol] 3.8 10*3/uL Normal 1.8-7.7 [facility] Comment on above: Performed By: #### B MP, CBC, MG ####[place] [address] Neutrophils/100 WBC (Bld) 70.6 % Normal . [facility] Comment on above: Performed By: #### B MP, CBC, MG ####[facility] NRBC% 0.0 /100{WBC} Normal 0-0.5 [facility] Comment on above: Performed By: #### B MP, CBC, MG ####[place] [address] Platelet mean volume (Bld) [Entitic vol] 7.7 fL Normal 6.6-10.1 [facility] Comment on above: Performed By: #### B MP, CBC, MG ####[place] [address] Platelets (Bld) [#/Vol] 142 10*3/uL Low 150-450 [facility] Comment on above: Performed By: #### B MP, CBC, MG ####[place] [address] RBC (Bld) [#/Vol] 2.24 10*6/uL Low 3.90-5.60 [facility] Comment on above: Performed By: #### B MP, CBC, MG ####[place] [id number] [facility] WBC (Bld) [#/Vol] 5.4 10*3/uL Normal 4.1-10.5 [facility] Comment on above: Performed By: #### B MP, CBC, MG ####[place] [address] [place] [id number] [facility] Ferritinon 08-31-2022 Ferritin [Mass/Vol] 551.8 ng/mL High 23.9-336.2 [facility] Comment on above: Performed By: #### F E and TIBC, [id number], ODALIS #### [facility] [address] Glucose Poct Glucometerson 0 08-31-2022 Commemt1 Glu2: Cleaned Meter [facility] Comment on above: Result Comment: PERF ORMED BY: [place] [address] PATHOLOGIST GOVERNOR ASSEMBLER BRANDEN WHATLEY M.D. Performed By: #### G LULS #### Point of Care testing , Commemt1 Glu2: Cleaned Meter [facility] Comment on above: Result Comment: PERF ORMED BY: [place] [address] PATHOLOGIST GOVERNOR ASSEMBLER BRANDEN WHATLEY M.D. Performed By: #### G LULS #### Point of Care testing , Commemt1 Glu2: Cleaned Meter [facility] Comment on above: Result Comment: PERF ORMED BY: [place] [address] PATHOLOGIST GOVERNOR ASSEMBLER BRANDEN WHATLEY M.D. Performed By: #### G LULS ####Point of Care testing, Glucose [Mass/Vol] 123 mg/dL Normal [facility] Comment on above: Result Comment: [facility] Glucose Reference Range is dependent on time and content of last meal. Glucose of more than 200 mg/dL in a nonstressed, ambulatory subject supports the diagnosis of Diabetes Mellitus. PERFORMED BY: [place] [address] PATHOLOGIST GOVERNOR ASSEMBLER BRANDEN WHATLEY M.D. Performed By: #### F E and TIBC, [id number], ODALIS #### [address] Glucose [Mass/Vol] 126 mg/dL Normal [facility] Comment on above: Result Comment: [facility] Glucose Reference Range is dependent on time and content of last meal. Glucose of more than 200 mg/dL in a nonstressed, ambulatory subject supports the diagnosis of Diabetes Mellitus. Performed By: #### G LULS #### Point of Care testing , Glucose [Mass/Vol] 101 mg/dL Normal [facility] Comment on above: Result Comment: [place] [facility] Glucose Reference Range is dependent on time and content of last meal. Glucose of more than 200 mg/dL in a nonstressed, ambulatory subject supports the diagnosis of Diabetes Mellitus. Performed By: #### G LULS #### Point of Care testing , Glucose [Mass/Vol] 123 mg/dL Normal [facility] Comment on above: Result Comment: [place] om Glucose Reference Range is dependent on time and content of last meal. Glucose of more than 200 mg/dL in a nonstressed, ambulatory subject supports the diagnosis of Diabetes Mellitus. Performed By: #### G LULS ####Point of Care testing, Haptoglobinon 08-31-2022 Haptoglobin 189 mg/dL Normal 44-215 [facility] Comment on above: Result Comment: PERF ORMED BY: [place] [address] PATHOLOGIST GOVERNOR ASSEMBLER BRANDEN WHATLEY M.D. Performed By: #### G LULS #### Point of Care testing , Iron and TIBC Profileon 08-13 % Iron Saturation 27.5 % Normal 20-50 [facility] Comment on above: Performed By: #### F E and TIBC, [id number], ODALIS #### [facility] [address] [place] [address] Iron [Mass/Vol] 53 ug/dL Normal 50-212 [facility] Comment on above: Performed By: #### F E and TIBC, [id number], ODALIS #### [facility] [address] [place] [address] Total Iron Binding Capacity 193 ug/dL Low 255-450 [facility] Comment on above: Performed By: #### F E and TIBC, [id number], ODALIS #### [facility] [address] [place] [address] Transferrin [Mass/Vol] 138 mg/dL Low 203-362 [facility] Comment on above: Performed By: #### F E and TIBC, [id number], ODALIS #### [facility] [address] [place] [address] LDH Lactate Dehydrogenaseon 08-31-2022 LDH Lactate Dehydrogenase 100 U/L Low 140-271 [facility] Comment on above: Result Comment: PERF ORMED BY: [place] [address] PATHOLOGIST GOVERNOR ASSEMBLER BRANDEN WHATLEY M.D. Performed By: #### G LULS #### Point of Care testing , LeukoReduced RBCon 3 LeukoReduced RBC TRANSFUSED 08/31/22 1822 Normal [facility] Magnesiumon 08-31-2022 Magnesium [Mass/Vol] 1.2 mg/dL Low 1.9-2.7 [facility] Comment on above: Result Comment: PERF ORMED BY: [place] [id number] PATHOLOGIST GOVERNOR ASSEMBLER BRANDEN WHATLEY M.D. Performed By: #### F E and TIBC, [id number], ODALIS #### [address] Reticulocyte Counton 023 Reticulocyte Number 0.069 10*6/uL Normal 0.024-0.084 [facility] Comment on above: Result Comment: PERF ORMED BY: [place] [address] PATHOLOGIST GOVERNOR ASSEMBLER BRANDEN WHATLEY M.D. Performed By: #### G LULS #### Point of Care testing , Reticulocyte Percent 2.7 % High 0.5-1.5 [facility] Comment on above: Performed By: #### G LULS #### Point of Care testing , Type and Screenon 08-31-2022 ABO and Rh group Nom (Bld) Blood group O Rh(D) negative Normal [facility] Comment on above: Order Comment: NEEDS DRAWN Result Comment: PERF ORMED BY: [place] [address] PATHOLOGIST GOVERNOR ASSEMBLER BRANDEN WHATLEY M.D. Vit. B12/Folate Profileon Cobalamin (Vitamin B12) [Mass/Vol] 616 pg/mL Normal 180-914 [facility] Comment on above: Performed By: #### F E and TIBC, [id number], ODALIS #### [address] Folate 12.5 ng/mL Normal >5.9 [facility] Comment on above: Result Comment: Adrianna te reference range: >5.9 ng/ml The WHO technical consultation on folate and vitamin b12 deficiencies has determined that folate concentrations less than 4 ng/ml are considered deficient. PERFORMED BY: [place] [address] PATHOLOGIST GOVERNOR ASSEMBLER BRANDEN WHATLEY M.D. Performed By: #### F E and TIBC, [id number], ODALIS #### [address] Blood Cultureon 08-30-2022 Bacteria identified Cx Nom (Bld) NO GROWTH 5 DAYS PERFORMED BY: [place] [address] PATHOLOGIST GOVERNOR ASSEMBLER BRANDEN WHATLEY M.D. [facility] Comment on above: Performed By: #### G LULS #### Point of Care testing , CT abdomen pelvis wo conon 0 08-30-2022 CT abdomen pelvis wo con [facility] [place] [address] [place] [address] CT Scan Report Signed Patient: Matt Kelly MR#: [id number] : 1950 Acct:[id number] Age/Sex: 71 / M ADM Date: 08/30/22 Loc: ER Room: Type: [facility] ER Attending Dr: Copies to: [...] Erik Larson M.D.08/30/2022 3:47 PM Dictation Location: [place] [address] Transcribed By: [facility] 08/30/22 1547 Dictated By: Erik Larson DO 08/30/22 1535 Signed By: 08/30/22 1547 Normal [facility] Complete Blood Count Auto Di ffon 08-30-2022 Basophils (Bld) [#/Vol] 0.1 10*3/uL Normal 0.0-0.2 [facility] Comment on above: Result Comment: PERF ORMED BY: [facility] [address] [place] [address] PATHOLOGIST GOVERNOR ASSEMBLER BRANDEN WHATLEY M.D. Performed By: #### G LULS #### Point of Care testing , Basophils/100 WBC (Bld) 1.0 % Normal . [facility] Comment on above: Performed By: #### G SUSIELS #### Point of Care testing , Eosinophils (Bld) [#/Vol] 0.4 10*3/uL Normal 0.0-0.45 [facility] Comment on above: Performed By: #### G SUSIELS #### Point of Care testing , Eosinophils/100 WBC (Bld) 4.9 % Normal . [facility] Comment on above: Performed By: #### G SUSIELS #### Point of Care testing , Erythrocyte distribution width (RBC) [Ratio] 14.7 % Normal 12.0-14.8 [facility] Comment on above: Performed By: #### G SUSIELS #### Point of Care testing , Hematocrit (Bld) [Volume fraction] 24.2 % Low 38.8-50.0 [facility] Comment on above: Performed By: #### G SUSIELS #### Point of Care testing , Hemoglobin (Bld) [Mass/Vol] 8.0 g/dL Low 13.0-17.0 [facility] Comment on above: Performed By: #### G SUSIELS #### Point of Care testing , Lymphocytes (Bld) [#/Vol] 1.0 10*3/uL Normal 1.00-4.8 [facility] Comment on above: Performed By: #### G SUSIELS #### Point of Care testing , Lymphocytes/100 WBC (Bld) 13.4 % Normal . [facility] Comment on above: Performed By: #### G SUSIELS #### Point of Care testing , MCH (RBC) [Entitic mass] 29.4 pg Normal 27.5-35.2 [facility] Comment on above: Performed By: #### G SUSIELS #### Point of Care testing , MCV (RBC) [Entitic vol] 88.5 fL Normal 83.5-101 [facility] Comment on above: Performed By: #### G SUSIELS #### Point of Care testing , Mean Corpuscular HGB Conc 33.2 g/dL Normal 32.5-35.6 [facility] Comment on above: Performed By: #### G ZAC #### Point of Care testing , Monocytes (Bld) [#/Vol] 0.8 10*3/uL Normal 0.0-0.8 [facility] Comment on above: Performed By: #### G SUSIELS #### Point of Care testing , Monocytes/100 WBC (Bld) 16.70 % Normal 0.00-20.00 [facility] Comment on above: Performed By: #### Young RICHARDSLS #### Point of Care testing , Monocytes/100 WBC (Bld) 10.1 % Normal . [facility] Comment on above: Performed By: #### Young FRANK #### Point of Care testing , Neutrophils (Bld) [#/Vol] 5.3 10*3/uL Normal 1.8-7.7 [facility] Comment on above: Performed By: #### Young FRANK #### Point of Care testing , Neutrophils/100 WBC (Bld) 70.6 % Normal . [facility] Comment on above: Performed By: #### Young RICHARDSLS #### Point of Care testing , NRBC% 0.1 /100{WBC} Normal 0-0.5 [facility] Comment on above: Performed By: #### Young FRANK #### Point of Care testing , Platelet mean volume (Bld) [Entitic vol] 7.7 fL Normal 6.6-10.1 [facility] Comment on above: Performed By: #### Young FRANK #### Point of Care testing , Platelets (Bld) [#/Vol] 181 10*3/uL Normal 150-450 [facility] Comment on above: Performed By: #### Young FRANK #### Point of Care testing , RBC (Bld) [#/Vol] 2.73 10*6/uL Low 3.90-5.60 [facility] Comment on above: Performed By: #### G ZAC #### Point of Care testing , WBC (Bld) [#/Vol] 7.4 10*3/uL Normal 4.1-10.5 [facility] Comment on above: Performed By: #### G LULS #### Point of Care testing , Comprehensive Metabolic Pane real 08-30-2022 Albumin [Mass/Vol] 2.9 g/dL Low 3.5-5.7 [facility] Comment on above: Performed By: #### G ZAC #### Point of Care testing , Albumin/Globulin [Mass ratio] 0.8 {ratio} Normal [facility] Comment on above: Performed By: #### Young FRANK #### Point of Care testing , ALP [Catalytic activity/Vol] 105 U/L High 34-104 [facility] Comment on above: Performed By: #### Young FRANK #### Point of Care testing , ALT [Catalytic activity/Vol] 31 U/L Normal 7-52 [facility] Comment on above: Performed By: #### Young FRANK #### Point of Care testing , Anion gap [Moles/Vol] 14.3 mmol/L Normal 6.0-15.0 [facility] Comment on above: Performed By: #### Young FRANK #### Point of Care testing , AST [Catalytic activity/Vol] 14 U/L Normal 13-39 [facility] Comment on above: Performed By: #### Young FRANK #### Point of Care testing , Bilirubin [Mass/Vol] 0.3 mg/dL Normal 0.3-1.0 [facility] Comment on above: Performed By: #### Young FRANK #### Point of Care testing , Calcium [Mass/Vol] 8.9 mg/dL Normal 8.6-10.3 [facility] Comment on above: Performed By: #### Young FRANK #### Point of Care testing , Chloride [Moles/Vol] 110 mmol/L High 98-107 [facility] Comment on above: Performed By: #### Young FRANK #### Point of Care testing , CO2 [Moles/Vol] 17.6 mmol/L Low 21.0-31.0 [facility] Comment on above: Performed By: #### Young FRANK #### Point of Care testing , Creatinine [Mass/Vol] 6.18 mg/dL High 0.70-1.30 [facility] Comment on above: Performed By: #### G SUSIELS #### Point of Care testing , Creatinine Clr Calc Pharmacy 16.08 [facility] Comment on above: Result Comment: PERF ORMED BY: [place] [address] PATHOLOGIST GOVERNOR ASSEMBLER BRANDEN WHATLEY M.D. Performed By: #### G SUSIELS #### Point of Care testing , GFR/1.73 sq M.predicted MDRD (S/P/Bld) [Vol rate/Area] 9.045 mL/min/{1.73_m2} [facility] Comment on above: Performed By: #### G SUSIELS #### Point of Care testing , Globulin (S) [Mass/Vol] 3.5 g/dL [facility] Comment on above: Performed By: #### G SUSIELS #### Point of Care testing , Glucose [Mass/Vol] 105 mg/dL High 70-100 [facility] Comment on above: Result Comment: [place] Glucose Reference Range is dependent on time and content of last meal. Glucose of more than 200 mg/dL in a nonstressed, ambulatory subject supports the diagnosis of Diabetes Mellitus. ADA recommended reference range Performed By: #### G SUSIELS #### Point of Care testing , Potassium [Moles/Vol] 4.9 mmol/L Normal 3.5-5.1 [facility] Comment on above: Performed [...] nitrogen [Mass/Vol] 84 mg/dL High 7-25 [facility] Comment on above: Performed By: #### G LULS #### Point of Care testing , Dipstick and Microscopicon 0 08-30-2022 Appearance (U) Turbid Critically abnormal Clear [facility] Comment on above: Order Comment: Name Collection Type:: Wooten Catheter Performed By: #### F E and TIBC, [id number], ODALIS #### [facility] [address] [place] [address] [place] Bacteria,Urine 2+ High None Seen [facility] Comment on above: Order Comment: Name Collection Type:: Wooten Catheter Performed By: #### F E and TIBC, [id number], ODALIS #### [place] [address] [place] Bilirubin,Urine Negative Normal Negative [facility] Comment on above: Order Comment: Name Collection Type:: Wooten Catheter Performed By: #### F E and TIBC, [id number], ODALIS #### [place] [address] [place] Color (U) Yellow Normal Yellow [facility] Comment on above: Order Comment: Name Collection Type:: Wooten Catheter Performed By: #### F E and TIBC, [id number], ODALIS #### [place] [address] [place] Glucose Ql (U) 100 mg/dL High Normal [facility] Comment on above: Order Comment: Name Collection Type:: Wooten Catheter Performed By: #### F E and TIBC, [id number], ODALIS #### [place] [address] [place] Hyaline Casts,Urine None Seen Normal 0-1 [facility] Comment on above: Order Comment: Name Collection Type:: Wooten Catheter Performed By: #### F E and TIBC, [id number], ODALIS #### [place] [address] [place] Ketones Ql (U) Negative Normal Negative [facility] Comment on above: Order Comment: Name Collection Type:: Wooten Catheter Performed By: #### F E and TIBC, [id number], ODALIS #### [address] [place] [address] [place] Leukocyte esterase Test strip Ql (U) 4+ High Negative [facility] Comment on above: Order Comment: Name Collection Type:: Wooten Catheter Performed By: #### F E and TIBC, [id number], ODALIS #### [facility] [address] Nitrite,Urine Positive High Negative [facility] Comment on above: Order Comment: Name Collection Type:: Wooten Catheter Performed By: #### F E and TIBC, [id number], ODALIS #### [address] Occult Blood,Urine 3+ High Negative [facility] Comment on above: Order Comment: Name Collection Type:: Wooten Catheter Result Comment: PERF ORMED BY: [place] [address] PATHOLOGIST GOVERNOR ASSEMBLER BRANDEN WHATLEY M.D. Performed By: #### F E and TIBC, [id number], ODALIS #### [address] Other Casts,Urine None Seen Normal None Seen [facility] Comment on above: Order Comment: Name Collection Type:: Wooten Catheter Performed By: #### F E and TIBC, [id number], ODALIS #### [address] pH (U) 6.0 [pH] Normal 5.0-9.0 [facility] Comment on above: Order Comment: Name Collection Type:: Wooten Catheter Performed By: #### F E and TIBC, [id number], ODALIS #### [address] Protein (U) [Mass/Vol] 100 mg/dL High Negative [facility] Comment on above: Order Comment: Name Collection Type:: Wooten Catheter Performed By: #### F E and TIBC, [id number], ODALIS #### [address] RBC,Urine 3-4 Normal 0-4 [facility] Comment on above: Order Comment: Name Collection Type:: Wooten Catheter Performed By: #### F E and TIBC, [id number], ODALIS #### [address] Specificy [place],Urine 1.011 Normal 1.001-1.030 [facility] Comment on above: Order Comment: Name Collection Type:: Wooten Catheter Performed By: #### F E and TIBC, [id number], ODALIS #### [address] Squamous Epithelial Cell,Urine 1-2 Normal 0-2 [facility] Comment on above: Order Comment: Name Collection Type:: Wooten Catheter Performed By: #### F E and TIBC, [id number], ODALIS #### [address] Urobilinogen,Urine Normal Normal Normal [facility] Comment on above: Order Comment: Name Collection Type:: Wooten Catheter Performed By: #### F E and TIBC, [id number], ODALIS #### [address] WBC,Urine Innumerable High 0-4 [facility] Comment on above: Order Comment: Name Collection Type:: Wooten Catheter Performed By: #### F E and TIBC, [id number], ODALIS #### [place] [address] [place] Yeast,Urine 2+ Critically abnormal None Seen [facility] Comment on above: Order Comment: Name Collection Type:: Wooten Catheter Result Comment: PERF ORMED BY: [place] [address] PATHOLOGIST GOVERNOR ASSEMBLER BRANDEN WHATLEY M.D. Performed By: #### F E and TIBC, [id number], ODALIS #### [address] Glucose Poct Glucometerson 0 08-30-2022 Glucose [Mass/Vol] 100 mg/dL Normal [facility] Comment on above: Result Comment: [place] om Glucose Reference Range is dependent on time and content of last meal. Glucose of more than 200 mg/dL in a nonstressed, ambulatory subject supports the diagnosis of Diabetes Mellitus. PERFORMED BY: [place] [address] PATHOLOGIST GOVERNOR ASSEMBLER BRANDEN WHATLEY M.D. Performed By: #### F E and TIBC, [id number], ODALIS #### [address] Glucose [Mass/Vol] 148 mg/dL Normal [facility] Comment on above: Result Comment: [facility] Glucose Reference Range is dependent on time and content of last meal. Glucose of more than 200 mg/dL in a nonstressed, ambulatory subject supports the diagnosis of Diabetes Mellitus. PERFORMED BY: [place] [address] PATHOLOGIST GOVERNOR ASSEMBLER BRANDEN WHATLEY M.D. Performed By: #### G LUDAVID #### Point of Care testing , Urine Cultureon 08-30-2022 Bacteria identified Cx Nom (U) ORGANISM: Pseudomonas aeruginosa (O:PSEAER) [place] Count 30,000 Aerobic RONI Charge (NMIC56) ---- [...] RESISTANT TO ALL B-LACTAM DRUGS. PERFORMED BY: [place] [address] PATHOLOGIST GOVERNOR ASSEMBLER BRANDEN WHATLEY M.D. Normal [facility] Comment on above: Performed By: #### F E and TIBC, [id number], ODALIS #### [address] PRBC LEUKOREDUCEDon 07-19-19 PRBC LEUKOREDUCED Cross Match Result Compatible Unit Blood Type O Neg Unit Number [id number] Status Information Transfused Product ID Red Blood Cells Product Code [id number] [facility] Comment on above: Performed By: #### P OCGLUC #### [facility] [address] [place] [address] [address] Dk Mahoney PRBC LEUKOREDUCED Cross Match Result Compatible Unit Blood Type O Neg Unit Number [id number] Status Information Transfused Product ID Red Blood Cells Product Code [id number] [facility] Comment on above: Performed By: #### P OCGLUC #### [facility] [address] [place] [address] [address] Dk Mahoney CULTURE URINEon 07-09-2022 CULTURE [...] R F Levofloxacin >=8 R F Normal [facility] Comment on above: Performed By: #### P OCGLUC #### [facility] [address] [place] [address] Dr. Dk Mahoney PROTEIN ELECTROPHERESISon Albumin [Mass/Vol] 2.7 g/dL Critically low 2.9-4.4 [facility] Comment on above: Performed By: #### M G, CMP, PHOS #### [facility] [address] [place] [address] Dr. Dk Mahoney Albumin/Globulin [Mass ratio] 0.9 {ratio} Normal 0.7-1.7 [facility] Comment on above: Performed By: #### M G, CMP, PHOS #### [facility] [address] [place] [address] Dr. Dk Mahoney Zecci-4-Suoxfprv 0.2 g/dL Normal 0.0-0.4 [facility] Comment on above: Performed By: #### M G, CMP, PHOS #### [facility] [address] [place] [address] Dr. Dk Mahoney Gvakj-2-Dvpfgnxg 0.8 g/dL Normal 0.4-1.0 [facility] Comment on above: Performed By: #### M G, CMP, PHOS #### [facility] [address] [place] [address] Dr. Dk Mahoney Beta Globulin 1.0 g/dL Normal 0.7-1.3 [facility] Comment on above: Performed By: #### M G, CMP, PHOS #### [facility] [address] [place] [address] Dr. Dk Mahoney Gamma Globulin 1.1 g/dL Normal 0.4-1.8 [facility] Comment on above: Performed By: #### M G, CMP, PHOS #### [facility] [address] [place] [address] Dr. Dk Mahoney Globulin (S) [Mass/Vol] 3.1 g/dL Normal 2.2-3.9 [facility] Comment on above: Performed By: #### M Young, CMP, PHOS #### [facility] [address] [place] [address] [address] Dk Mahoney M-Primitivo Comment: Normal Not Observed [facility] Comment on above: Result Comment: SPE shows an asymmetrical gamma. Performed By: #### M G, CMP, PHOS #### [facility] [address] [place] [address] [address] Dk Mahoney PDF . Normal [facility] Comment on above: Performed By: #### M G, CMP, PHOS #### [facility] [address] [place] [address] Dr. Dk Mahoney Please note: Comment Normal [facility] Comment on above: Result Comment: Prot ein electrophoresis scan will follow via computer, mail, or conductor pullman delivery. Performed By: #### M Young CMP, PHOS #### [facility] [address] [place] [address] [address] Dk Mahoney Protein [Mass/Vol] 5.8 g/dL Critically low 6.0-8.5 [facility] Comment on above: Performed By: #### M Young CMP, PHOS #### [facility] [address] [place] [address] Dr. Dk Mahoney PROTEIN ELECTROPHERESIS URIN E RANDOMon 07-09-2022 Albumin, U 23.2 % Normal [facility] Comment on above: Performed By: #### M G, CMP, PHOS #### [facility] [address] [place] [address] Dr. Dk Mahoney Alpha-1 Globulin U 3.6 % Normal [facility] Comment on above: Performed By: #### M G, CMP, PHOS #### [facility] [address] [place] [address] Dr. Dk Mahoney Alpha-2 Glubulin U 19.7 % Normal [facility] Comment on above: Performed By: #### M G, CMP, PHOS #### [facility] [address] [place] [address] [address] Dk Mahoney Beta Globulin, U 31.4 % Normal [facility] Comment on above: Performed By: #### M G, CMP, PHOS #### [facility] [address] [place] [address] Dr. Dk Mahoney Gamma Globulin U 22.1 % Normal [facility] Comment on above: Performed By: #### M G, CMP, PHOS #### [facility] [address] [place] [address] Dr. Dk Mahoney M-Primitivo, % Comment: Normal Not Observed [facility] Comment on above: Result Comment: UPE shows an asymmetrical beta. Performed By: #### M G, CMP, PHOS #### [facility] [address] [place] [address] Dr. Dk Mahoney PDF . Normal [facility] Comment on above: Performed By: #### M G CMP, PHOS #### [facility] [address] [place] [address] Dr. Dk Mahoney Please note: Comment Normal The [facility] Comment on above: Result Comment: Prot ein electrophoresis scan will follow via computer, mail, or conductor pullman delivery. Performed By: #### M G, CMP, PHOS #### [facility] [address] [place] [address] Dr. Dk Mahoney Protein (U) [Mass/Vol] 34.7 mg/dL Normal Not Estab. [facility] Comment on above: Performed By: #### M G, CMP, PHOS #### [facility] [address] [place] [address] Dr. Dk Mahoney CBC AUTO DIFFon 07-07-2022 BASO # 0.1 103/ul Normal 0.0-0.1 [facility] Comment on above: Performed By: #### M G, CMP, PHOS #### [facility] [address] [place] [address] Dr. Dk Mahoney Basophils/100 WBC (Bld) 0.9 % Normal 0.2-2.0 [facility] Comment on above: Performed By: #### M G, CMP, PHOS #### [facility] [address] [place] [address] Dr. Dk Mahoney EO # 0.2 103/ul Normal 0.0-0.7 [facility] Comment on above: Performed By: #### M G, CMP, PHOS #### [facility] [address] [place] [address] Dr. Dk Mahoney Eosinophils/100 WBC (Bld) 2.9 % Normal 0.9-7.0 [facility] Comment on above: Performed By: #### M G, CMP, PHOS #### [facility] [address] [place] [address] Dr. Dk Mahoney Erythrocyte distribution width (RBC) [Ratio] 15.0 % Normal 11.0-15.0 [facility] Comment on above: Performed By: #### M G, CMP, PHOS #### [facility] [address] [place] [address] Dr. Dk Mahoney Hematocrit (Bld) [Volume fraction] 24.4 % Critically low 42.0-54.0 [facility] Comment on above: Performed By: #### M G, CMP, PHOS #### [facility] [address] [place] [address] Dr. Dk Mahoney Hemoglobin (Bld) [Mass/Vol] 7.8 g/dL Critically low 14.0-18.0 [facility] Comment on above: Performed By: #### M G, CMP, PHOS #### [facility] [address] [place] [address] Dr. Dk Mahoney IG # 0.07 10e3/ul Critically high 0.00-0.03 [facility] Comment on above: Performed By: #### M G, CMP, PHOS #### [facility] [address] [place] [address] Dr. Dk Mahoney IG % 1.1 % Critically high 0.0-0.5 [facility] Comment on above: Performed By: #### M G, CMP, PHOS #### [facility] [address] [place] [address] Dr. Dk Mahoney LYMPH # 1.0 103/ul Critically low 1.2-3.8 [facility] Comment on above: Performed By: #### M SHIREEN Vidal, PHOS #### [facility] [address] [place] [address] Dr. Dk Mahoney Lymphocytes/100 WBC (Bld) 15.4 % Critically low 20.5-60.0 [facility] Comment on above: Performed By: #### Rosmery Vidal CMP, PHOS #### [facility] [address] [place] [address] Dr. Dk Mahoney MANUAL DIFF REQ NO Normal [facility] Comment on above: Performed By: #### Rosmery Vidal CMP, PHOS #### [facility] [address] [place] [address] Dr. Dk Mahoney MCH (RBC) [Entitic mass] 29.3 pg Normal 25.9-34.0 [facility] Comment on above: Performed By: #### Rosmery Vidal CMP, PHOS #### [facility] [address] [place] [address] Dr. Dk Mahoney MCHC (RBC) [Mass/Vol] 32.0 g/dL Normal 29.9-35.2 [facility] Comment on above: Performed By: #### Rsomery Vidal CMP, PHOS #### [facility] [address] [place] [address] Dr. Dk Mahoney MCV (RBC) [Entitic vol] 91.7 fL Normal 80.0-94.0 [facility] Comment on above: Performed By: #### Rosmery Vidal CMP, PHOS #### [facility] [address] [place] [address] Dr. Dk Mahoney MONO # 0.6 103/ul Normal 0.3-0.8 [facility] Comment on above: Performed By: #### Rosmery Vidal CMP, PHOS #### [facility] [address] [place] [address] Dr. Dk Mahoney Monocytes/100 WBC (Bld) 9.2 % Normal 1.7-12.0 [facility] Comment on above: Performed By: #### M G, CMP, PHOS #### [facility] [address] [address] [address] Dk Mahoney NEUT # 4.6 103/ul Normal 1.4-6.5 [facility] Comment on above: Performed By: #### M G, CMP, PHOS #### [facility] [address] [place] [address] Dr. Dk Mahoney Neutrophils/100 WBC (Bld) 70.5 % Normal 43.0-75.0 [facility] Comment on above: Performed By: #### M G, CMP, PHOS #### [facility] [address] [place] [address] Dr. Dk Mahoney Platelet mean volume (Bld) [Entitic vol] 10.1 fL Normal 9.5-13.5 [facility] Comment on above: Performed By: #### M G, CMP, PHOS #### [facility] [address] [place] [address] Dr. Dk Mahoney PLT 172 103/ul Normal 150-450 [facility] Comment on above: Performed By: #### M G, CMP, PHOS #### [facility] [address] [place] [address] Dr. Dk Mahoney RBC 2.66 106/ul Critically low 4.70-6.10 [facility] Comment on above: Performed By: #### M G, CMP, PHOS #### [facility] [address] [place] [address] Dr. Dk Mahoney WBC 6.5 103/ul Normal 4.0-11.0 [facility] Comment on above: Performed By: #### M G, CMP, PHOS #### [facility] [address] [place] [address] Dr. Dk Mahoney MAGNESIUMon 07-07-2022 Magnesium [Mass/Vol] 1.4 mg/dL Critically low 1.8-2.4 [facility] Comment on above: Performed By: #### M G, CMP, PHOS #### [facility] [address] [place] [address] Dr. Dk Mahoney PHOSPHORUSon 07-07-2022 Phosphate [Mass/Vol] 5.9 mg/dL Critically high 2.6-4.7 [facility] Comment on above: Performed By: #### M G, CMP, PHOS #### [facility] [address] [place] [address] Dr. Dk Mahoney POINT OF CARE GLUCOSEon 06-13 Glucose [Mass/Vol] 121 mg/dL Critically high 74-106 [facility] Comment on above: Performed By: #### M G, CMP, PHOS #### [facility] [address] [place] [address] Dr. Dk Mahoney PROF 14(COMP METB)on 023 Albumin [Mass/Vol] 2.4 g/dL Critically low 3.4-5.0 [facility] Comment on above: Performed By: #### M G, CMP, PHOS #### [facility] [address] [place] [address] Dr. Dk Mahonye Albumin/Globulin [Mass ratio] 0.6 {ratio} Normal [facility] Comment on above: Performed By: #### M G, CMP, PHOS #### [facility] [address] [place] [address] Dr. Dk Mahoney ALP [Catalytic activity/Vol] 128 U/L Critically high 46-116 [facility] Comment on above: Performed By: #### M G, CMP, PHOS #### [facility] [address] [place] [address] Dr. Dk Mahoney ALT [Catalytic activity/Vol] 49 U/L Normal 16-63 [facility] Comment on above: Performed By: #### M G, CMP, PHOS #### [facility] [address] [place] [address] Dr. Dk Mahoney Anion gap [Moles/Vol] 16.3 mmol/L Normal [facility] Comment on above: Performed By: #### M G, CMP, PHOS #### [facility] [address] [place] [address] Dr. Dk Mahoney AST [Catalytic activity/Vol] 17 U/L Normal 15-37 [facility] Comment on above: Performed By: #### M Young, CMP, PHOS #### [facility] [address] [place] [address] Dr. Dk Mahoney Bilirubin [Mass/Vol] 0.3 mg/dL Normal 0.2-1.0 [facility] Comment on above: Performed By: #### M Young, CMP, PHOS #### [facility] [address] [place] [address] Dr. Dk Mahonye Calcium [Mass/Vol] 9.2 mg/dL Normal 8.5-10.1 [facility] Comment on above: Performed By: #### M Young CMP, PHOS #### [facility] [address] [place] [address] Dr. Dk Mahoney Chloride [Moles/Vol] 105 mmol/L Normal 98-107 [facility] Comment on above: Performed By: #### M Young CMP, PHOS #### [facility] [address] [place] [address] Dr. Dk Mahoney CO2 [Moles/Vol] 20.3 mmol/L Critically low 21.0-32.0 [facility] Comment on above: Performed By: #### Rosmery Vidal CMP, PHOS #### [facility] [address] [place] [address] Dr. Dk Mahoney Creatinine [Mass/Vol] 5.59 mg/dL Critically high 0.70-1.30 [facility] Comment on above: Performed By: #### M G, CMP, PHOS #### [facility] [address] [place] [address] Dr. Dk Mahoney EGFR-AF LAO 12 mL/min/1.73m2 Critically low >=60 [facility] Comment on above: Performed By: #### M G, CMP, PHOS #### [facility] [address] [place] [address] Dr. Dk Mahoney EGFR-NON AF LAO 10 mL/min/1.73m2 Critically low >=60 [facility] Comment on above: Performed By: #### M G, CMP, PHOS #### [facility] [address] [address] [address] Dk Mahoney Globulin (S) [Mass/Vol] 3.7 g/dL Normal [facility] Comment on above: Performed By: #### M G, CMP, PHOS #### [facility] [address] [address] [address] Dk Mahoney Glucose [Mass/Vol] 191 mg/dL Critically high 74-106 [facility] Comment on above: Performed By: #### M G, CMP, PHOS #### [facility] [address] [address] [address] Dk Mahoney Potassium [Moles/Vol] 4.5 mmol/L Normal 3.5-5.1 [facility] Comment on above: Performed By: #### M G, CMP, PHOS #### [facility] [address] [address] [address] Dk Mahoney Protein [Mass/Vol] 6.1 g/dL Critically low 6.4-8.2 [facility] Comment on above: Performed By: #### M G, CMP, PHOS #### [facility] [address] [address] [address] Dk Mahoney Sodium [Moles/Vol] 137 mmol/L Normal 136-145 [facility] Comment on above: Performed By: #### M G, CMP, PHOS #### [facility] [address] [address] [address] Dk Mahoney Urea nitrogen [Mass/Vol] 83.0 mg/dL Critically high 7.0-18.0 [facility] Comment on above: Performed By: #### M G, CMP, PHOS #### [facility] [address] [address] [address] Dk Mahoney Urea nitrogen/Creatinine [Mass ratio] 14.8 mg/mg [facility] Comment on above: Performed By: #### M G, CMP, PHOS #### [facility] [address] [address] [address] Dk Mahoney CBC AUTO DIFFon 07-06-2022 BASO # 0.0 103/ul Normal 0.0-0.1 [facility] Comment on above: Performed By: #### C BC #### [facility] [address] [place] [address] Dr. Dk Mahoney BASO # 0.1 103/ul Normal 0.0-0.1 [facility] Comment on above: Performed By: #### M G, CMP, PHOS #### [facility] [address] [place] [address] Dr. Dk Mahoney Basophils/100 WBC (Bld) 0.6 % Normal 0.2-2.0 [facility] Comment on above: Performed By: #### C BC #### [facility] [address] [place] [address] Dr. Dk Mahoney Basophils/100 WBC (Bld) 0.9 % Normal 0.2-2.0 [facility] Comment on above: Performed By: #### M Young CMP, PHOS #### [facility] [address] [place] [address] Dr. Dk Mahoney EO # 0.2 103/ul Normal 0.0-0.7 [facility] Comment on above: Performed By: #### C BC #### [facility] [address] [place] [address] Dr. Dk Mahoney EO # 0.2 103/ul Normal 0.0-0.7 [facility] Comment on above: Performed By: #### M Young CMP, PHOS #### [facility] [address] [place] [address] Dr. Dk Mahoney Eosinophils/100 WBC (Bld) 3.2 % Normal 0.9-7.0 [facility] Comment on above: Performed By: #### C BC #### [facility] [address] [place] [address] Dr. Dk Mahoney Eosinophils/100 WBC (Bld) 2.9 % Normal 0.9-7.0 [facility] Comment on above: Performed By: #### M G CMP, PHOS #### [facility] [address] [place] [address] Dr. Dk Mahoney Erythrocyte distribution width (RBC) [Ratio] 15.2 % Critically high 11.0-15.0 [facility] Comment on above: Performed By: #### C BC #### [facility] [address] [place] [address] Dr. Dk Mahoney Erythrocyte distribution width (RBC) [Ratio] 15.0 % Normal 11.0-15.0 [facility] Comment on above: Performed By: #### M G, CMP, PHOS #### [facility] [address] [place] [address] Dr. Dk Mahoney Hematocrit (Bld) [Volume fraction] 21.4 % Critically low 42.0-54.0 [facility] Comment on above: Performed By: #### C BC #### [facility] [address] [place] [address] Dr. Dk Mahoney Hematocrit (Bld) [Volume fraction] 24.2 % Critically low 42.0-54.0 [facility] Comment on above: Performed By: #### M Young CMP, PHOS #### [facility] [address] [place] [address] Dr. Dk Mahoney Hemoglobin (Bld) [Mass/Vol] 6.9 g/dL Critically low 14.0-18.0 [facility] Comment on above: Performed By: #### C BC #### [facility] [address] [place] [address] Dr. Dk Mahoney Hemoglobin (Bld) [Mass/Vol] 8.0 g/dL Critically low 14.0-18.0 [facility] Comment on above: Performed By: #### M G, CMP, PHOS #### [facility] [address] [place] [address] Dr. Dk Mahoney IG # 0.05 10e3/ul Critically high 0.00-0.03 [facility] Comment on above: Performed By: #### C BC #### [facility] [address] [place] [address] Dr. Dk Mahoney IG # 0.06 10e3/ul Critically high 0.00-0.03 [facility] Comment on above: Performed By: #### M G, CMP, PHOS #### [facility] [address] [address] [address] Dk Mahoney IG % 0.8 % Critically high 0.0-0.5 [facility] Comment on above: Performed By: #### C BC #### [facility] [address] [place] [address] Dr. Dk Mahoney IG % 0.9 % Critically high 0.0-0.5 [facility] Comment on above: Performed By: #### M G, CMP, PHOS #### [facility] [address] [place] [address] Dr. Dk Mahoney LYMPH # 0.9 103/ul Critically low 1.2-3.8 [facility] Comment on above: Performed By: #### C BC #### [facility] [address] [place] [address] Dr. Dk Mahoney LYMPH # 1.0 103/ul Critically low 1.2-3.8 [facility] Comment on above: Performed By: #### M G, CMP, PHOS #### [facility] [address] [place] [address] Dr. Dk Mahoney Lymphocytes/100 WBC (Bld) 13.8 % Critically low 20.5-60.0 [facility] Comment on above: Performed By: #### C BC #### [facility] [address] [place] [address] Dr. Dk Mahoney Lymphocytes/100 WBC (Bld) 14.6 % Critically low 20.5-60.0 [facility] Comment on above: Performed By: #### M G, CMP, PHOS #### [facility] [address] [place] [address] Dr. Dk Mahoney MANUAL DIFF REQ NO Normal [facility] Comment on above: Performed By: #### C BC #### [facility] [address] [place] [address] Dr. Dk Mahoney MANUAL DIFF REQ NO Normal [facility] Comment on above: Performed By: #### M G, CMP, PHOS #### [facility] [address] [place] [address] Dr. Dk Mahoney MCH (RBC) [Entitic mass] 29.9 pg Normal 25.9-34.0 [facility] Comment on above: Performed By: #### C BC #### [facility] [address] [place] [address] Dr. Dk Mahoney MCH (RBC) [Entitic mass] 30.4 pg Normal 25.9-34.0 [facility] Comment on above: Performed By: #### M G, CMP, PHOS #### [facility] [address] [place] [address] Dr. Dk Mahoney MCHC (RBC) [Mass/Vol] 32.2 g/dL Normal 29.9-35.2 [facility] Comment on above: Performed By: #### C BC #### [facility] [address] [place] [address] Dr. Dk CRC (RBC) [Mass/Vol] 33.1 g/dL Normal 29.9-35.2 [facility] Comment on above: Performed By: #### M G, CMP, PHOS #### [facility] [address] [place] [address] Dr. Dk Mahoney MCV (RBC) [Entitic vol] 92.6 fL Normal 80.0-94.0 [facility] Comment on above: Performed By: #### C BC #### [facility] [address] [place] [address] Dr. Dk Mahoney MCV (RBC) [Entitic vol] 92.0 fL Normal 80.0-94.0 [facility] Comment on above: Performed By: #### M G, CMP, PHOS #### [facility] [address] [place] [address] Dr. Dk Mahoney MONO # 0.8 103/ul Normal 0.3-0.8 [facility] Comment on above: Performed By: #### C BC #### [facility] [address] [place] [address] Dr. Dk Mahoney MONO # 0.7 103/ul Normal 0.3-0.8 [facility] Comment on above: Performed By: #### M Young CMP, PHOS #### [facility] [address] [place] [address] Dr. Dk Mahoney Monocytes/100 WBC (Bld) 11.4 % Normal 1.7-12.0 [facility] Comment on above: Performed By: #### C BC #### [facility] [address] [place] [address] Dr. Dk Mahoney Monocytes/100 WBC (Bld) 11.1 % Normal 1.7-12.0 [facility] Comment on above: Performed By: #### M Young CMP, PHOS #### [facility] [address] [place] [address] Dr. Dk Mahoney NEUT # 4.6 103/ul Normal 1.4-6.5 [facility] Comment on above: Performed By: #### C BC #### [facility] [address] [place] [address] Dr. Dk Mahoney NEUT # 4.5 103/ul Normal 1.4-6.5 [facility] Comment on above: Performed By: #### M Young CMP, PHOS #### [facility] [address] [place] [address] Dr. Dk Mahoney Neutrophils/100 WBC (Bld) 70.2 % Normal 43.0-75.0 [facility] Comment on above: Performed By: #### C BC #### [facility] [address] [place] [address] Dr. Dk Mahoney Neutrophils/100 WBC (Bld) 69.6 % Normal 43.0-75.0 [facility] Comment on above: Performed By: #### M Young CMP, PHOS #### [facility] [address] [place] [address] Dr. Dk Mahoney Platelet mean volume (Bld) [Entitic vol] 9.6 fL Normal 9.5-13.5 [facility] Comment on above: Performed By: #### C BC #### [facility] [address] [address] [address] Dk Mahoney Platelet mean volume (Bld) [Entitic vol] 9.4 fL Critically low 9.5-13.5 [facility] Comment on above: Performed By: #### M Young CMP, PHOS #### [facility] [address] [address] [address] Dk Mahoney PLT 163 103/ul Normal 150-450 [facility] Comment on above: Performed By: #### C BC #### [facility] [address] [place] [address] Dr. Dk Mahoney PLT 159 103/ul Normal 150-450 [facility] Comment on above: Performed By: #### M Young CMP, PHOS #### [facility] [address] [place] [address] Dr. Dk Mahoney RBC 2.31 106/ul Critically low 4.70-6.10 [facility] Comment on above: Performed By: #### C BC #### [facility] [address] [place] [address] Dr. Dk Mahoney RBC 2.63 106/ul Critically low 4.70-6.10 [facility] Comment on above: Performed By: #### Rosmery Vidal CMP, PHOS #### [facility] [address] [place] [address] Dr. Dk Mhaoney WBC 6.6 103/ul Normal 4.0-11.0 [facility] Comment on above: Performed By: #### C BC #### [facility] [address] [place] [address] Dr. Dk Mahoney WBC 6.5 103/ul Normal 4.0-11.0 [facility] Comment on above: Performed By: #### M Young CMP, PHOS #### [facility] [address] [place] [address] Dr. Dk Mahoney FERRITINon 07-06-2022 Ferritin [Mass/Vol] 538.0 ng/mL Critically high 26.0-388.0 [facility] Comment on above: Performed By: #### Rosmery Vidal CMP, PHOS #### [facility] [address] [address] [address] Dk Mahoney IRON AND TIBCon 07-06-2022 % SATURATION 29.7 % Normal [facility] Comment on above: Performed By: #### M Young, CMP, PHOS #### [facility] [address] [address] [address] Dk Mahoney Iron [Mass/Vol] 51.0 ug/dL Critically low 65.0-175.0 [facility] Comment on above: Performed By: #### M Young, CMP, PHOS #### [facility] [address] [address] [address] Dk Mahoney TIBC DIRECT 172.0 ug/dL Critically low 250.0-450.0 [facility] Comment on above: Performed By: #### M Young, CMP, PHOS #### [facility] [address] [place] [address] Dr. Dk Mahoney LDHon 07-06-2022 LDH 126 U/L Normal 85-227 [facility] Comment on above: Performed By: #### M Young, CMP, PHOS #### [facility] [address] [address] [address] Dk Mahoney MAGNESIUMon 07-06-2022 Magnesium [Mass/Vol] 1.5 mg/dL Critically low 1.8-2.4 [facility] Comment on above: Performed By: #### M Young CMP, PHOS #### [facility] [address] [address] [address] Dk Mahoney PHOSPHORUSon 07-06-2022 Phosphate [Mass/Vol] 7.8 mg/dL Critically high 2.6-4.7 [facility] Comment on above: Performed By: #### M Young CMP, PHOS #### [facility] [address] [place] [address] Dr. Dk Mahoney POINT OF CARE GLUCOSEon 06-13 Glucose [Mass/Vol] 173 mg/dL Critically high 74-106 [facility] Comment on above: Performed By: #### P OCGLUC #### [facility] [address] [address] [address] Dk Mahoney Glucose [Mass/Vol] 133 mg/dL Critically high 74-106 [facility] Comment on above: Performed By: #### M Young, CMP, PHOS #### [facility] [address] [address] [address] Dk Mahoney Glucose [Mass/Vol] 112 mg/dL Critically high 74-106 [facility] Comment on above: Performed By: #### M Young, CMP, PHOS #### [facility] [address] [place] [address] Dr. Dk Mahoney Glucose [Mass/Vol] 145 mg/dL Critically high -106 [facility] Comment on above: Performed By: #### M Young, CMP, PHOS #### [facility] [address] [place] [address] Dr. Dk Mahoney Glucose [Mass/Vol] 149 mg/dL Critically high 74-106 [facility] Comment on above: Performed By: #### M Young CMP, PHOS #### [facility] [address] [place] [address] Dr. Dk Mahoney PROF 14(COMP METB)on 023 Albumin [Mass/Vol] 2.4 g/dL Critically low 3.4-5.0 Th [facility] Comment on above: Performed By: #### M SHIREEN Vidal, PHOS #### [facility] [address] [id number] Dr. Dk Mahoney Albumin/Globulin [Mass ratio] 0.6 {ratio} Normal [facility] Comment on above: Performed By: #### M Young, CMP, PHOS #### [facility] [address] [address] [address] Dk Mahoney ALP [Catalytic activity/Vol] 133 U/L Critically high 46-116 [facility] Comment on above: Performed By: #### M G, CMP, PHOS #### [facility] [address] [place] [address] Dr. Dk Mahoney ALT [Catalytic activity/Vol] 58 U/L Normal 16-63 [facility] Comment on above: Performed By: #### M G, CMP, PHOS #### [facility] [address] [address] [address] Dk Mahoney Anion gap [Moles/Vol] 16.8 mmol/L Normal [facility] Comment on above: Performed By: #### M G, CMP, PHOS #### [facility] [address] [address] [address] Dk Mahoney AST [Catalytic activity/Vol] 20 U/L Normal 15-37 [facility] Comment on above: Performed By: #### M G, CMP, PHOS #### [facility] [address] [address] [address] Dk Mahoney Bilirubin [Mass/Vol] 0.2 mg/dL Normal 0.2-1.0 [facility] Comment on above: Performed By: #### M G, CMP, PHOS #### [facility] [address] [address] [address] Dk Mahoney Calcium [Mass/Vol] 9.0 mg/dL Normal 8.5-10.1 [facility] Comment on above: Performed By: #### M G, CMP, PHOS #### [facility] [address] [place] [address] Dr. Dk Mahoney Chloride [Moles/Vol] 107 mmol/L Normal 98-107 [facility] Comment on above: Performed By: #### M G, CMP, PHOS #### [facility] [address] [address] [address] Dk Mahoney CO2 [Moles/Vol] 18.2 mmol/L Critically low 21.0-32.0 [facility] Comment on above: Performed By: #### M G, CMP, PHOS #### [facility] [address] [place] [address] Dr. Dk Mahoney Creatinine [Mass/Vol] 5.80 mg/dL Critically high 0.70-1.30 [facility] Comment on above: Performed By: #### M G, CMP, PHOS #### [facility] [address] [place] [address] Dr. Dk Mahoney EGFR-AF LAO 12 mL/min/1.73m2 Critically low >=60 [facility] Comment on above: Performed By: #### M Young, CMP, PHOS #### [facility] [address] [address] [address] Dk Mahoney EGFR-NON AF LAO 10 mL/min/1.73m2 Critically low >=60 [facility] Comment on above: Performed By: #### M Young, CMP, PHOS #### [facility] [address] [address] [address] Dk Mahoney Globulin (S) [Mass/Vol] 3.9 g/dL Normal [facility] Comment on above: Performed By: #### M SHIREEN Vidal, PHOS #### [facility] [address] [place] [address] Dr. Dk Mahoney Glucose [Mass/Vol] 108 mg/dL Critically high 74-106 [facility] Comment on above: Performed By: #### M SHIREEN Vidal, PHOS #### [facility] [address] [address] [address] Dk Mahoney Potassium [Moles/Vol] 5.0 mmol/L Normal 3.5-5.1 [facility] Comment on above: Performed By: #### M Young CMP, PHOS #### [facility] [address] [address] [address] Dk Mahoney Protein [Mass/Vol] 6.3 g/dL Critically low 6.4-8.2 [facility] Comment on above: Performed By: #### M Young CMP, PHOS #### [facility] [address] [address] [address] Dk Mahoney Sodium [Moles/Vol] 137 mmol/L Normal 136-145 [facility] Comment on above: Performed By: #### M Young CMP, PHOS #### [facility] [address] [address] [address] Dk Mahoney Urea nitrogen [Mass/Vol] 83.0 mg/dL Critically high 7.0-18.0 [facility] Comment on above: Performed By: #### M Young, CMP, PHOS #### [facility] [address] [place] [address] Dr. Dk Mahoney Urea nitrogen/Creatinine [Mass ratio] 14.3 mg/mg Normal [facility] Comment on above: Performed By: #### M G, CMP, PHOS #### [facility] [address] [place] [address] Dr. Dk Mahoney RETICULOCYTEon 07-06-2022 RETIC 4.20 % Critically high 0.60-3.10 [facility] Comment on above: Performed By: #### M Young, CMP, PHOS #### [facility] [address] [place] [address] Dr. Dk Mahoney TYPE AND SCREENon 07-06-2022 TYPE AND SCREEN Negative Normal [facility] Comment on above: Performed By: #### P OCGLUC #### [facility] [address] [place] [address] Dr. Dk Mahoney URIC ACID SERUMon 07-06-2022 Urate [Mass/Vol] 6.1 mg/dL Normal 3.5-7.2 [facility] Comment on above: Performed By: #### M SHIREEN Vidal, PHOS #### [facility] [address] [place] [address] Dr. Dk Mahoney VIT B12 AND FOLATEon 023 Cobalamin (Vitamin B12) [Mass/Vol] 686.0 pg/mL Normal 193.0-986.0 [facility] Comment on above: Performed By: #### P OCGLUC #### [facility] [address] [place] [address] Dr. Dk Mahoney FOLATE 15.50 ng/mL Normal 8.60-58.90 [facility] Comment on above: Performed By: #### P OCGLUC #### [facility] [address] [place] [address] Dr. Dk Mahoney CBC AUTO DIFFon 07-05-2022 BASO # 0.1 103/ul Normal 0.0-0.1 [facility] Comment on above: Performed By: #### M G, CMP, PHOS #### [facility] [address] [place] [address] Dr. Dk Mahoney Basophils/100 WBC (Bld) 0.7 % Normal 0.2-2.0 [facility] Comment on above: Performed By: #### M G, CMP, PHOS #### [facility] [address] [place] [address] Dr. Dk Mahoney EO # 0.2 103/ul Normal 0.0-0.7 [facility] Comment on above: Performed By: #### M G, CMP, PHOS #### [facility] [address] [place] [address] Dr. Dk Mahoney Eosinophils/100 WBC (Bld) 3.1 % Normal 0.9-7.0 [facility] Comment on above: Performed By: #### M G, CMP, PHOS #### [facility] [address] [place] [address] Dr. Dk Mahoney Erythrocyte distribution width (RBC) [Ratio] 15.4 % Critically high 11.0-15.0 [facility] Comment on above: Performed By: #### M G, CMP, PHOS #### [facility] [address] [place] [address] Dr. Dk Mahoney Hematocrit (Bld) [Volume fraction] 23.9 % Critically low 42.0-54.0 [facility] Comment on above: Performed By: #### M G, CMP, PHOS #### [facility] [address] [place] [address] Dr. Dk Mahoney Hemoglobin (Bld) [Mass/Vol] 7.7 g/dL Critically low 14.0-18.0 [facility] Comment on above: Performed By: #### M G, CMP, PHOS #### [facility] [address] [place] [address] Dr. Dk Mahoney IG # 0.05 10e3/ul Critically high 0.00-0.03 [facility] Comment on above: Performed By: #### M G, CMP, PHOS #### [facility] [address] [place] [address] Dr. Dk Mahoney IG % 0.7 % Critically high 0.0-0.5 [facility] Comment on above: Performed By: #### M Young, CMP, PHOS #### [facility] [address] [place] [address] Dr. Dk Mahoney LYMPH # 1.0 103/ul Critically low 1.2-3.8 [facility] Comment on above: Performed By: #### M G, CMP, PHOS #### [facility] [address] [place] [address] Dr. Dk Mahoney Lymphocytes/100 WBC (Bld) 12.8 % Critically low 20.5-60.0 [facility] Comment on above: Performed By: #### M Young CMP, PHOS #### [facility] [address] [place] [address] Dr. Dk Mahoney MANUAL DIFF REQ NO Normal [facility] Comment on above: Performed By: #### M Young CMP, PHOS #### [facility] [address] [place] [address] Dr. Dk Mahoney MCH (RBC) [Entitic mass] 30.0 pg Normal 25.9-34.0 [facility] Comment on above: Performed By: #### M Young CMP, PHOS #### [facility] [address] [place] [address] Dr. Dk Mahoney MCHC (RBC) [Mass/Vol] 32.2 g/dL Normal 29.9-35.2 [facility] Comment on above: Performed By: #### M G, CMP, PHOS #### [facility] [address] [place] [address] Dr. Dk Mahoney MCV (RBC) [Entitic vol] 93.0 fL Normal 80.0-94.0 [facility] Comment on above: Performed By: #### M G, CMP, PHOS #### [facility] [address] [place] [address] Dr. Dk Mahoney MONO # 0.8 103/ul Normal 0.3-0.8 [facility] Comment on above: Performed By: #### M G, CMP, PHOS #### [facility] [address] [place] [address] Dr. Dk Mahoney Monocytes/100 WBC (Bld) 10.2 % Normal 1.7-12.0 [facility] Comment on above: Performed By: #### M G, CMP, PHOS #### [facility] [address] [place] [address] Dr. Dk Mahoney NEUT # 5.6 103/ul Normal 1.4-6.5 [facility] Comment on above: Performed By: #### M G, CMP, PHOS #### [facility] [address] [place] [address] Dr. Dk Mahoney Neutrophils/100 WBC (Bld) 72.5 % Normal 43.0-75.0 [facility] Comment on above: Performed By: #### M G, CMP, PHOS #### [facility] [address] [place] [address] Dr. Dk Mahoney Platelet mean volume (Bld) [Entitic vol] 9.8 fL Normal 9.5-13.5 [facility] Comment on above: Performed By: #### M G, CMP, PHOS #### [facility] [address] [place] [address] Dr. Dk Mahoney PLT 203 103/ul Normal 150-450 [facility] Comment on above: Performed By: #### M G, CMP, PHOS #### [facility] [address] [place] [address] Dr. Dk Mahoney RBC 2.57 106/ul Critically low 4.70-6.10 [facility] Comment on above: Performed By: #### M G, CMP, PHOS #### [facility] [address] [place] [address] Dr. Dk Mahoney WBC 7.7 103/ul Normal 4.0-11.0 [facility] Comment on above: Performed By: #### M G, CMP, PHOS #### [facility] [address] [place] [address] ABD/PELVIS WO CONon [...] MARQUES AMAYA Date: 2022-07-05 18:21 Normal [facility]13 SARS-CoV-2 (COVID-19) RNA JASON+probe Ql (Unsp spec) Not detected Normal NOT DETECTED [facility] Comment on above: Result Comment: When [...] for this test is supported by the [place] of Health and Human Service's declaration that [...] used). Performed By: #### C BC #### [facility] [address] [place] [address] Dr. Dk Mahoney ER URINE PROFILEon 3 Bilirubin Ql (U) Negative Normal NEGATIVE [facility] Comment on above: Performed By: #### M Young CMP, PHOS #### [facility] [address] [place] [address] Dr. Dk Mahoney Clarity (U) CLEAR Normal CLEAR [facility] Comment on above: Performed By: #### M Young CMP, PHOS #### [facility] [address] [place] [address] Dr. Dk Mahoney Color (U) YELLOW Normal YELLOW [facility] Comment on above: Performed By: #### M Young CMP, PHOS #### [facility] [address] [place] [address] Dr. Yilan Mahoney ERUAHD A micrscopic examination will be performed if indicated. Normal [facility] Comment on above: Performed By: #### M G, CMP, PHOS #### [facility] [address] [address] [address] Dk Mahoney Glucose Ql (U) 100 mg/dl Abnormal NEGATIVE [facility] Comment on above: Performed By: #### M G, CMP, PHOS #### [facility] [address] [address] [address] Dk Mahoney Hemoglobin Ql (U) MODERATE Abnormal NEGATIVE [facility] Comment on above: Performed By: #### M G, CMP, PHOS #### [facility] [address] [place] [address] Dr. Dk Mahoney Ketones Ql (U) Negative Normal NEGATIVE [facility] Comment on above: Performed By: #### M G, CMP, PHOS #### [facility] [address] [place] [address] Dr. Dk Mahoney LEUKOCYTES LARGE Abnormal NEGATIVE [facility] Comment on above: Performed By: #### M G, CMP, PHOS #### [facility] [address] [address] [address] Dk Mahoney Nitrite Ql (U) Negative Normal NEGATIVE [facility] Comment on above: Performed By: #### M G, CMP, PHOS #### [facility] [address] [place] [address] Dr. Dk Mahoney pH (U) 7.0 [pH] Normal 5-9 [facility] Comment on above: Performed By: #### M G, CMP, PHOS #### [facility] [address] [place] [address] Dr. Dk Mahoney Protein (U) [Mass/Vol] 30 mg/dL Abnormal NEGAT BETSY/ TRACE [facility] Comment on above: Performed By: #### M G, CMP, PHOS #### [facility] [address] [place] [address] Dr. Dk Mahoney SPEC GRAVITY 1.010 Normal 1.005-<=1.02 5 [facility] Comment on above: Performed By: #### M SHIREEN Vidal, PHOS #### [facility] [address] [place] [address] Dr. Dk Mahoney UR MICRO IND INDICATED Normal [facility] Comment on above: Performed By: #### M G, CMP, PHOS #### [facility] [address] [place] [address] Dr. Dk Mahoney Urobilinogen Qn (U) 0.2 {Ramiro'U}/dL Normal 0.2 - 1. 0 [facility] Comment on above: Performed By: #### M Young, SHIREEN, PHOS #### [facility] [address] [place] [address] Dr. Dk Mahoney PROF 14(COMP METB)on 023 Albumin [Mass/Vol] 2.7 g/dL Critically low 3.4-5.0 [facility] Comment on above: Performed By: #### C BC #### [facility] [address] [place] [address] Dr. Dk Mahoney Albumin/Globulin [Mass ratio] 0.6 {ratio} Normal [facility] Comment on above: Performed By: #### C BC #### [facility] [address] [place] [address] Dr. Dk Mahoney ALP [Catalytic activity/Vol] 148 U/L Critically high 46-116 [facility] Comment on above: Performed By: #### C BC #### [facility] [address] [place] [address] Dr. Dk Mahoney ALT [Catalytic activity/Vol] 70 U/L Critically high 16-63 [facility] Comment on above: Performed By: #### C BC #### [facility] [address] [place] [address] Dr. Dk Mahoney Anion gap [Moles/Vol] 16.7 mmol/L Normal [facility] Comment on above: Performed By: #### C BC #### [facility] [address] [place] [address] Dr. Dk Mahoney AST [Catalytic activity/Vol] 26 U/L Normal 15-37 [facility] Comment on above: Performed By: #### C BC #### [facility] [address] [address] [address] Dk Mahoney Bilirubin [Mass/Vol] 0.4 mg/dL Normal 0.2-1.0 [facility] Comment on above: Performed By: #### C BC #### [facility] [address] [address] [address] Dk Mahoney Calcium [Mass/Vol] 9.2 mg/dL Normal 8.5-10.1 [facility] Comment on above: Performed By: #### C BC #### [facility] [address] [address] [address] Dk Mahoney Chloride [Moles/Vol] 105 mmol/L Normal 98-107 [facility] Comment on above: Performed By: #### C BC #### [facility] [address] [address] [address] Dk Mahoney CO2 [Moles/Vol] 18.1 mmol/L Critically low 21.0-32.0 [facility] Comment on above: Performed By: #### C BC #### [facility] [address] [address] [address] Dk Mahoney Creatinine [Mass/Vol] 5.81 mg/dL Critically high 0.70-1.30 [facility] Comment on above: Performed By: #### C BC #### [facility] [address] [address] [address] Dk Mahoney EGFR-AF LAO 12 mL/min/1.73m2 Critically low >=60 [facility] Comment on above: Performed By: #### C BC #### [facility] [address] [address] [address] Dk Mahoney EGFR-NON AF LAO 10 mL/min/1.73m2 Critically low >=60 [facility] Comment on above: Performed By: #### C BC #### [facility] [address] [address] [address] Dk Mahoney Globulin (S) [Mass/Vol] 4.3 g/dL Normal [facility] Comment on above: Performed By: #### C BC #### [facility] [address] [address] [address] Dk Mahoney Glucose [Mass/Vol] 138 mg/dL Critically high 74-106 [facility] Comment on above: Performed By: #### C BC #### [facility] [address] [address] [address] Dk Mahoney Potassium [Moles/Vol] 4.8 mmol/L Normal 3.5-5.1 [facility] Comment on above: Performed By: #### C BC #### [facility] [address] [address] [address] Dk Mahoney Protein [Mass/Vol] 7.0 g/dL Normal 6.4-8.2 [facility] Comment on above: Performed By: #### C BC #### [facility] [address] [address] [address] Dk Mahoney Sodium [Moles/Vol] 135 mmol/L Critically low 136-145 [facility] Comment on above: Performed By: #### C BC #### [facility] [address] [address] [address] Dk Mahoney Urea nitrogen [Mass/Vol] 83.0 mg/dL Critically high 7.0-18.0 [facility] Comment on above: Performed By: #### C BC #### [facility] [address] [address] [address] Dk Mahoney Urea nitrogen/Creatinine [Mass ratio] 14.3 mg/mg Normal [facility] Comment on above: Performed By: #### C BC #### [facility] [address] [address] [address] Dk Mahoney TROPONIN, HIGH SENSITIVITYon 07-05-2022 HSTROP 21.4 pg/mL Normal 4.0-76.1 [facility] Comment on above: Result Comment: CUT- OFF POINTS HAVE BEEN ESTABLISHED BASED ON THE FOURTH UNIVERSAL DEFINITIONS OF MYOCARDIAL INFARCTION. THE UPPER REFERENCE LIMIT (URL) OF TROPONIN, DEFINED THE 99TH PERCENTILE OF cTnI DISTRIBUTION IN A REFERENCE POPULATION, HAS BEEN CONFIRMED THE DECISION THRESHOLD FOR [place] DIAGNOSIS. Performed By: #### C BC #### [facility] [address] [address] [address] Dk Mahoney URINE MICROSCOPIC ONLYon BACTERIA MODERATE Abnormal NONE SEEN [facility] Comment on above: Performed By: #### M G, CMP, PHOS #### [facility] [address] [address] [address] Dk Mahoney Bacteria identified Cx Nom (U) INDICATED Normal [facility] Comment on above: Performed By: #### M G, CMP, PHOS #### [facility] [address] [address] [address] Dk Mahoney CAST NONE SEEN Normal NONE SEEN [facility] Comment on above: Performed By: #### M G, CMP, PHOS #### [facility] [address] [place] [address] Dr. Dk Mahoney Crystals LM Nom (Urine sed) NONE SEEN Normal NONE SEEN [facility] Comment on above: Performed By: #### M G, CMP, PHOS #### [facility] [address] [place] [address] Dr. Dk Mahoney Epithelial cells LM Ql (Urine sed) FEW Abnormal NONE SEEN /RARE [facility] Comment on above: Performed By: #### M G, CMP, PHOS #### [facility] [address] [place] [address] Dr. Dk Mahoney MUCOUS NONE SEEN Normal NONE SEEN [facility] Comment on above: Performed By: #### M G, CMP, PHOS #### [facility] [address] [place] [address] Dr. Dk Mahoney RBC 10-20 Abnormal 0-2 [facility] Comment on above: Performed By: #### M G, CMP, PHOS #### [facility] [address] [place] [address] Dr. Dk Mahoney WBC 75-100 Abnormal NONE SEEN [facility] Comment on above: Performed By: #### M G, CMP, PHOS #### [facility] [address] [place] [address] Dr. Dk Mahoney YEAST PRESENT Abnormal NONE SEEN [facility] Comment on above: Performed By: #### M G, CMP, PHOS #### [facility] [address] [place] [address] Dr. Dk Mahoney PRBC LEUKOREDUCEDon 05-11-19 PRBC LEUKOREDUCED Cross Match Result Compatible Unit Blood Type O Neg Unit Number [id number] Status Information Transfused Product ID Red Blood Cells Product Code [id number] Normal [facility] Comment on above: Performed By: #### P RBC #### [facility] [address] [place] [address] Dr. Dk Mahoney ABO AND RH TYPEon 05-04-2022 ABO and Rh group Nom (Bld) ABO Rh Typing O Rh Negative Normal [facility] Comment on above: Performed By: #### A NOE TNS #### [facility] [address] [place] [address] Dr. Dk Mahoney BNPon 05-04-2022 Natriuretic peptide B (Bld) [Mass/Vol] 10422.0 pg/mL Critically high <=900.0 [facility] Comment on above: Performed By: #### M G, CMP, PHOS #### [facility] [address] [place] [address] Dr. Dk Mahoney CBC AUTO DIFFon 05-04-2022 BASO # 0.1 103/ul Normal 0.0-0.1 [facility] Comment on above: Performed By: #### M G, CMP, PHOS #### [facility] [address] [place] [address] Dr. Dk Mahoney Basophils/100 WBC (Bld) 0.7 % Normal 0.2-2.0 [facility] Comment on above: Performed By: #### M G, CMP, PHOS #### [facility] [address] [place] [address] Dr. Dk Mahoney EO # 0.3 103/ul Normal 0.0-0.7 [facility] Comment on above: Performed By: #### M G, CMP, PHOS #### [facility] [address] [place] [address] Dr. Dk Mahoney Eosinophils/100 WBC (Bld) 4.4 % Normal 0.9-7.0 [facility] Comment on above: Performed By: #### M Young CMP, PHOS #### [facility] [address] [address] [address] Dk Mahoney Erythrocyte distribution width (RBC) [Ratio] 15.4 % Critically high 11.0-15.0 [facility] Comment on above: Performed By: #### M G, CMP, PHOS #### [facility] [address] [place] [address] Dr. Dk Mahoney Hematocrit (Bld) [Volume fraction] 21.6 % Critically low 42.0-54.0 [facility] Comment on above: Performed By: #### M Young CMP, PHOS #### [facility] [address] [place] [address] Dr. Dk Mahoney Hemoglobin (Bld) [Mass/Vol] 7.4 g/dL Critically low 14.0-18.0 [facility] Comment on above: Performed By: #### M Young, CMP, PHOS #### [facility] [address] [place] [address] Dr. Dk Mahoney IG # 0.03 10e3/ul Normal 0.00-0.03 [facility] Comment on above: Performed By: #### M Young CMP, PHOS #### [facility] [address] [place] [address] Dr. Dk Mahoney IG % 0.4 % Normal 0.0-0.5 [facility] Comment on above: Performed By: #### M G, CMP, PHOS #### [facility] [address] [place] [address] Dr. Dk Mahoney LYMPH # 0.9 103/ul Critically low 1.2-3.8 [facility] Comment on above: Performed By: #### M G, CMP, PHOS #### [facility] [address] [place] [address] Dr. Dk Mahoney Lymphocytes/100 WBC (Bld) 13.8 % Critically low 20.5-60.0 [facility] Comment on above: Performed By: #### M G, CMP, PHOS #### [facility] [address] [place] [address] Dr. Dk Mahoney MANUAL DIFF REQ NO Normal [facility] Comment on above: Performed By: #### M G, CMP, PHOS #### [facility] [address] [place] [address] Dr. Dk Mahoney MCH (RBC) [Entitic mass] 28.4 pg Normal 25.9-34.0 [facility] Comment on above: Performed By: #### M G, CMP, PHOS #### [facility] [address] [place] [address] Dr. Dk Mahoney MCHC (RBC) [Mass/Vol] 34.3 g/dL Normal 29.9-35.2 [facility] Comment on above: Performed By: #### M G, CMP, PHOS #### [facility] [address] [place] [address] Dr. Dk Mahoney MCV (RBC) [Entitic vol] 82.8 fL Normal 80.0-94.0 [facility] Comment on above: Performed By: #### M G, CMP, PHOS #### [facility] [address] [place] [address] Dr. Dk Mahoney MONO # 0.6 103/ul Normal 0.3-0.8 [facility] Comment on above: Performed By: #### M G, CMP, PHOS #### [facility] [address] [place] [address] Dr. Dk Mahoney Monocytes/100 WBC (Bld) 8.8 % Normal 1.7-12.0 [facility] Comment on above: Performed By: #### M G, CMP, PHOS #### [facility] [address] [place] [address] Dr. Dk Mahoney NEUT # 4.9 103/ul Normal 1.4-6.5 [facility] Comment on above: Performed By: #### M G, CMP, PHOS #### [facility] [address] [place] [address] Dr. Dk Mahoney Neutrophils/100 WBC (Bld) 71.9 % Normal 43.0-75.0 [facility] Comment on above: Performed By: #### M SHIREEN Vidal, PHOS #### [facility] [address] [address] [address] Dk Mahoney Platelet mean volume (Bld) [Entitic vol] 9.3 fL Critically low 9.5-13.5 [facility] Comment on above: Performed By: #### Rosmery Vidal CMP, PHOS #### [facility] [address] [address] [address] Dk Mahoney PLT 178 103/ul Normal 150-450 [facility] Comment on above: Performed By: #### M SHIREEN Vidal, PHOS #### [facility] [address] [address] [address] Dk Mahoney RBC 2.61 106/ul Critically low 4.70-6.10 [facility] Comment on above: Performed By: #### Rosmery Vidal CMP, PHOS #### [facility] [address] [address] [address] Dk Mahoney WBC 6.8 103/ul Normal 4.0-11.0 [facility] Comment on above: Performed By: #### Rosmery Vidal CMP, PHOS #### [facility] [address] [address] [address] Dk Mahoney Covid-19 PCR (CVDTB)on 04-15 SARS-CoV-2 (COVID-19) RNA JASON+probe Ql (Unsp spec) Not detected Normal NOT DETECTED [facility] Comment on above: Result Comment: When [...] for this test is supported by the [place] of Health and Human Service's declaration that [...] used). Performed By: #### P OCGLUC #### [facility] [address] [place] [address] Dr. Dk Mahoney PROF CHEM 8 (BAS METB)on Anion gap [Moles/Vol] 14.7 mmol/L Normal [facility] Comment on above: Performed By: #### M G CMP, PHOS #### [facility] [address] [place] [address] Dr. Dk Mahoney Calcium [Mass/Vol] 9.3 mg/dL Normal 8.5-10.1 [facility] Comment on above: Performed By: #### M G, CMP, PHOS #### [facility] [address] [place] [address] Dr. Dk Mahoney Chloride [Moles/Vol] 109 mmol/L Critically high 98-107 [facility] Comment on above: Performed By: #### M G, CMP, PHOS #### [facility] [address] [place] [address] Dr. Dk Mahoney CO2 [Moles/Vol] 21.3 mmol/L Normal 21.0-32.0 [facility] Comment on above: Performed By: #### M G, CMP, PHOS #### [facility] [address] [place] [address] Dr. Dk Mahoney Creatinine [Mass/Vol] 4.61 mg/dL Critically high 0.70-1.30 [facility] Comment on above: Performed By: #### M G, CMP, PHOS #### [facility] [address] [place] [address] Dr. Dk Mahoney EGFR-AF LAO 15 mL/min/1.73m2 Critically low >=60 [facility] Comment on above: Performed By: #### M G, CMP, PHOS #### [facility] [address] [address] [address] Dk Mahoney EGFR-NON AF LAO 13 mL/min/1.73m2 Critically low >=60 [facility] Comment on above: Performed By: #### M G, CMP, PHOS #### [facility] [address] [address] [address] Dk Mahoney Glucose [Mass/Vol] 200 mg/dL Critically high 74-106 T [facility] Comment on above: Performed By: #### M G, CMP, PHOS #### [facility] [address] [address] [address] Dk Mahoney Potassium [Moles/Vol] 5.0 mmol/L Normal 3.5-5.1 [facility] Comment on above: Performed By: #### M G, CMP, PHOS #### [facility] [address] [address] [address] Dk Mahoney Sodium [Moles/Vol] 140 mmol/L Normal 136-145 [facility] Comment on above: Performed By: #### M G, CMP, PHOS #### [facility] [address] [address] [address] Dk Mahoney Urea nitrogen [Mass/Vol] 64.0 mg/dL Critically high 7.0-18.0 [facility] Comment on above: Performed By: #### M G, CMP, PHOS #### [facility] [address] [address] [address] Dk Mahoney Urea nitrogen/Creatinine [Mass ratio] 13.9 mg/mg Normal [facility] Comment on above: Performed By: #### M G, CMP, PHOS #### [facility] [address] [address] [address] Dk Mahoney TROPONIN, HIGH SENSITIVITYon 05-04-2022 HSTROP 29.4 pg/mL Normal 4.0-76.1 [facility] Comment on above: Result Comment: CUT- OFF POINTS HAVE BEEN ESTABLISHED BASED ON THE FOURTH UNIVERSAL DEFINITIONS OF MYOCARDIAL INFARCTION. THE UPPER REFERENCE LIMIT (URL) OF TROPONIN, DEFINED THE 99TH PERCENTILE OF cTnI DISTRIBUTION IN A REFERENCE POPULATION, HAS BEEN CONFIRMED THE DECISION THRESHOLD FOR [place] DIAGNOSIS. Performed By: #### M G, CMP, PHOS #### [facility] [address] [address] [address] Dk Mahoney TYPE AND SCREENon 05-04-2022 TYPE AND SCREEN Negative Normal [facility] Comment on above: Performed By: #### A NOE TNS #### [facility] [address] [address] [address] Dk Mahoney US ROWAN DOP LEG [...] by: ROBERTO HEBERT Date: 2022-05-04 14:33 Normal [facility] PRBC LEUKOREDUCEDon 04-29-19 23 PRBC LEUKOREDUCED Cross Match Result Compatible Unit Blood Type O Neg Unit Number [id number] Status Information Transfused Product ID Red Blood Cells Product Code [id number] Normal [facility] Comment on above: Performed By: #### P RBC #### [facility] [address] [place], [place] [id number] Dr. Dk Mahoney ABO RH RETYPEon 04-19-2022 ABO and Rh group Nom (Bld) DONE Normal [facility] Comment on above: Performed By: #### M G, CMP, PHOS #### [facility] [address] [address] [address] Dk Mahoney CBC AUTO DIFFon 04-19-2022 BASO # 0.1 103/ul Normal 0.0-0.1 [facility] Comment on above: Performed By: #### M G, CMP, PHOS #### [facility] [address] [address] [address] Dk Mahoney Basophils/100 WBC (Bld) 0.8 % Normal 0.2-2.0 [facility] Comment on above: Performed By: #### M SHIREEN Vidal, PHOS #### [facility] [address] [place] [address] Dr. Dk Mahoney EO # 0.5 103/ul Normal 0.0-0.7 [facility] Comment on above: Performed By: #### M Young CMP, PHOS #### [facility] [address] [place] [address] Dr. Dk Mahoney Eosinophils/100 WBC (Bld) 6.9 % Normal 0.9-7.0 [facility] Comment on above: Performed By: #### M SHIREEN Vidal, PHOS #### [facility] [address] [place] [address] Dr. Dk Mahoney Erythrocyte distribution width (RBC) [Ratio] 16.3 % Critically high 11.0-15.0 [facility] Comment on above: Performed By: #### Rosmery Vidal CMP, PHOS #### [facility] [address] [place] [address] Dr. Dk Mahoney Hematocrit (Bld) [Volume fraction] 20.8 % Critically low 42.0-54.0 [facility] Comment on above: Performed By: #### M SHIREEN Vidal, PHOS #### [facility] [address] [place] [address] Dr. Dk Mahoney Hemoglobin (Bld) [Mass/Vol] 6.8 g/dL Critically low 14.0-18.0 [facility] Comment on above: Performed By: #### M Young CMP, PHOS #### [facility] [address] [place] [address] Dr. Dk Mahoney IG # 0.04 10e3/ul Critically high 0.00-0.03 [facility] Comment on above: Performed By: #### M G, CMP, PHOS #### [facility] [address] [place] [address] Dr. Dk Mahoney IG % 0.6 % Critically high 0.0-0.5 [facility] Comment on above: Performed By: #### M G, CMP, PHOS #### [facility] [address] [place] [address] Dr. Dk Mahoney LYMPH # 1.0 103/ul Critically low 1.2-3.8 [facility] Comment on above: Performed By: #### M G, CMP, PHOS #### [facility] [address] [place] [address] Dr. Dk Mahoney Lymphocytes/100 WBC (Bld) 14.1 % Critically low 20.5-60.0 [facility] Comment on above: Performed By: #### M G, CMP, PHOS #### [facility] [address] [place] [address] Dr. Dk Mahoney MANUAL DIFF REQ NO Normal [facility] Comment on above: Performed By: #### M G, CMP, PHOS #### [facility] [address] [place] [address] Dr. Dk Mahoney MCH (RBC) [Entitic mass] 29.3 pg Normal 25.9-34.0 [facility] Comment on above: Performed By: #### M G, CMP, PHOS #### [facility] [address] [place] [address] Dr. Dk Mahoney MCHC (RBC) [Mass/Vol] 32.7 g/dL Normal 29.9-35.2 [facility] Comment on above: Performed By: #### M G, CMP, PHOS #### [facility] [address] [place] [address] Dr. Dk Mahoney MCV (RBC) [Entitic vol] 89.7 fL Normal 80.0-94.0 [facility] Comment on above: Performed By: #### M G, CMP, PHOS #### [facility] [address] [place] [address] Dr. Dk Mahoney MONO # 0.7 103/ul Normal 0.3-0.8 [facility] Comment on above: Performed By: #### M G, CMP, PHOS #### [facility] [address] [place] [address] Dr. Dk Mahoney Monocytes/100 WBC (Bld) 10.1 % Normal 1.7-12.0 [facility] Comment on above: Performed By: #### Rosmery Vidal CMP, PHOS #### [facility] [address] [address] [address] Dk Mahoney NEUT # 4.9 103/ul Normal 1.4-6.5 [facility] Comment on above: Performed By: #### Rosmery Vidal CMP, PHOS #### [facility] [address] [place] [address] Dr. Dk Mahoney Neutrophils/100 WBC (Bld) 67.5 % Normal 43.0-75.0 [facility] Comment on above: Performed By: #### Rosmery Vidal CMP, PHOS #### [facility] [address] [place] [address] Dr. Dk Mahoney Platelet mean volume (Bld) [Entitic vol] 9.5 fL Normal 9.5-13.5 [facility] Comment on above: Performed By: #### Rosmery Vidal CMP, PHOS #### [facility] [address] [place] [address] Dr. Dk Mahoney PLT 212 103/ul Normal 150-450 [facility] Comment on above: Performed By: #### Rosmery Vidal CMP, PHOS #### [facility] [address] [place] [address] Dr. Dk Mahoney RBC 2.32 106/ul Critically low 4.70-6.10 [facility] Comment on above: Performed By: #### Rosmery Vidal CMP, PHOS #### [facility] [address] [place] [address] Dr. Dk Mahoney WBC 7.2 103/ul Normal 4.0-11.0 [facility] Comment on above: Performed By: #### Rosmery Vidal CMP, PHOS #### [facility] [address] [place] [address] Dr. Dk Mahoney [facility]on SARS-CoV-2 (COVID-19) RNA JASON+probe Ql (Unsp spec) Not detected Normal NOT DETECTED [facility] Comment on above: Result Comment: When [...] for this test is supported by the [employer] of Health and Human Service's declaration that [...] By: #### M SHIREEN Vidal, PHOS #### [facility] [address] [place] [address] Dr. Dk Mahoney PROF 14(COMP METB)on 023 Albumin [Mass/Vol] 2.4 g/dL Critically low 3.4-5.0 Th [facility] Comment on above: Performed By: #### Rosmery Vidal CMP, PHOS #### [facility] [address] [place] [address] Dr. Dk Mahoney Albumin/Globulin [Mass ratio] 0.6 {ratio} Normal [facility] Comment on above: Performed By: #### Rosmery Vidal CMP, PHOS #### [facility] [address] [place] [address] Dr. Dk Mahoney ALP [Catalytic activity/Vol] 142 U/L Critically high 46-116 [facility] Comment on above: Performed By: #### M SHIREEN Vidal, PHOS #### [facility] [address] [place] [address] Dr. Dk Mahoney ALT [Catalytic activity/Vol] 26 U/L Normal 16-63 [facility] Comment on above: Performed By: #### M SHIREEN Vidal, PHOS #### [facility] [address] [address] [address] Dk Mahoney Anion gap [Moles/Vol] 12.0 mmol/L Normal Th [facility] Comment on above: Performed By: #### M G, CMP, PHOS #### [facility] [address] [address] [address] Dk Mahoney AST [Catalytic activity/Vol] 19 U/L Normal 15-37 [facility] Comment on above: Performed By: #### M G, CMP, PHOS #### [facility] [address] [address] [address] Dk Mahoney Bilirubin [Mass/Vol] 0.3 mg/dL Normal 0.2-1.0 [facility] Comment on above: Performed By: #### M G, CMP, PHOS #### [facility] [address] [address] [address] Dk Mahoney Calcium [Mass/Vol] 9.3 mg/dL Normal 8.5-10.1 [facility] Comment on above: Performed By: #### M G, CMP, PHOS #### [facility] [address] [address] [address] Dk Mahoney Chloride [Moles/Vol] 109 mmol/L Critically high 98-107 [facility] Comment on above: Performed By: #### M G, CMP, PHOS #### [facility] [address] [address] [address] Dk Mahoney CO2 [Moles/Vol] 25.0 mmol/L Normal 21.0-32.0 [facility] Comment on above: Performed By: #### M G, CMP, PHOS #### [facility] [address] [address] [address] Dk Mahoney Creatinine [Mass/Vol] 4.83 mg/dL Critically high 0.70-1.30 [facility] Comment on above: Performed By: #### M G, CMP, PHOS #### [facility] [address] [address] [address] Dk Mahoney EGFR-AF LAO 15 mL/min/1.73m2 Critically low >=60 [facility] Comment on above: Performed By: #### M G, CMP, PHOS #### [facility] [address] [address] [address] Dk Mahoney EGFR-NON AF LAO 12 mL/min/1.73m2 Critically low >=60 [facility] Comment on above: Performed By: #### M G, CMP, PHOS #### [facility] [address] [place] [address] Dr. Dk Mahoney Globulin (S) [Mass/Vol] 4.1 g/dL Normal [facility] Comment on above: Performed By: #### M Young, CMP, PHOS #### [facility] [address] [place] [address] Dr. Dk Mahoney Glucose [Mass/Vol] 128 mg/dL Critically high 74-106 T [facility] Comment on above: Performed By: #### M Young CMP, PHOS #### [facility] [address] [place] [address] Dr. Dk Mahoney Potassium [Moles/Vol] 5.0 mmol/L Normal 3.5-5.1 [facility] Comment on above: Performed By: #### M SHIREEN Vidal, PHOS #### [facility] [address] [place] [address] Dr. Dk Mahoney Protein [Mass/Vol] 6.5 g/dL Normal 6.4-8.[address] [facility] Comment on above: Performed By: #### M Young, CMP, PHOS #### [facility] [address] [place] [address] Dr. Dk Mahoney Sodium [Moles/Vol] 141 mmol/L Normal 136-[address] [facility] Comment on above: Performed By: #### M G, CMP, PHOS #### [facility] [address] [place] [address] Dr. Dk Mahoney Urea nitrogen [Mass/Vol] 62.0 mg/dL Critically high 7.0-18.0 [facility] Comment on above: Performed By: #### M Young, CMP, PHOS #### [facility] [address] [place] [address] Dr. Dk Mahoney Urea nitrogen/Creatinine [Mass ratio] 12.8 mg/mg Normal [facility] Comment on above: Performed By: #### M Young, HIEN IYERS #### [facility] [address] [place] [address] Dr. Dk Mahoney PROTIMEon 04-19-2022 INR Coag (PPP) [Relative time] 1.01 {INR} Normal [facility] Comment on above: Performed By: #### P OCGLUC #### [facility] [address] [place] [address] Dr. Dk Mahoney INR GUIDELINES SEE BELOW Normal [facility] Comment on above: Result Comment: JOSELO RED INR: 2.0 - 3.0 CONDITIONS NOT LISTED BELOW 2.5 - 3.5 FOR PROSTHETIC HEART VALVE REPLACEMENT 2.5 - 3.5 RECURRENT THROMBOSIS Performed By: #### P OCGLUC #### [facility] [address] [place] [address] Dr. Dk Mahoney PT Coag (PPP) [Time] 10.9 s Normal 9.0-11.6 [facility] Comment on above: Performed By: #### P OCGLUC #### [facility] [address] [place] [address] Dr. Dk Mahoney PTTon 04-19-2022 aPTT Coag (Bld) [Time] 25.8 s Normal 22.3-36.2 Th [facility] Comment on above: Performed By: #### P OCGLUC #### [facility] [address] [place] [address] Dr. Dk Mahoney TYPE AND SCREENon 04-19-2022 TYPE AND SCREEN Negative Normal [facility] Comment on above: Performed By: #### P OCGLUC #### [facility] [address] [place] [address] Dr. Dk Mahoney CBC AUTO DIFFon 10-24-2021 BASO # 0.1 103/ul Normal 0.0-0.1 [facility] Comment on above: Performed By: #### C BC #### [facility] [address] [place] [address] Dr. Dk Mahoney Basophils/100 WBC (Bld) 0.7 % Normal 0.2-2.0 [facility] Comment on above: Performed By: #### C BC #### [facility] [address] [address] [address] Dk Mahoney EO # 0.6 103/ul Normal 0.0-0.7 [facility] Comment on above: Performed By: #### C BC #### [facility] [address] [address] [address] Dk Mahoney Eosinophils/100 WBC (Bld) 7.7 % Critically high 0.9-7.0 [facility] Comment on above: Performed By: #### C BC #### [facility] [address] [place] [address] Dr. Dk Mahoney Erythrocyte distribution width (RBC) [Ratio] 17.2 % Critically high 11.0-15.0 [facility] Comment on above: Performed By: #### C BC #### [facility] [address] [address] [address] Dk Mahoney Hematocrit (Bld) [Volume fraction] 26.1 % Critically low 42.0-54.0 [facility] Comment on above: Performed By: #### C BC #### [facility] [address] [place] [address] Dr. Dk Mahoney Hemoglobin (Bld) [Mass/Vol] 8.1 g/dL Critically low 14.0-18.0 [facility] Comment on above: Performed By: #### C BC #### [facility] [address] [place] [address] Dr. Dk Mahoney IG # 0.06 10e3/ul Critically high 0.00-0.03 [facility] Comment on above: Performed By: #### C BC #### [facility] [address] [place] [address] Dr. Dk Mahoney IG % 0.8 % Critically high 0.0-0.5 [facility] Comment on above: Performed By: #### C BC #### [facility] [address] [address] [address] Dk Mahoney LYMPH # 1.4 103/ul Normal 1.2-3.8 [facility] Comment on above: Performed By: #### C BC #### [facility] [address] [place] [address] Dr. Dk Mahoney Lymphocytes/100 WBC (Bld) 18.1 % Critically low 20.5-60.0 [facility] Comment on above: Performed By: #### C BC #### [facility] [address] [place] [address] Dr. Dk Mahoney MANUAL DIFF REQ NO Normal [facility] Comment on above: Performed By: #### C BC #### [facility] [address] [place] [address] Dr. Dk Mahoney MCH (RBC) [Entitic mass] 25.6 pg Critically low 25.9-34.0 [facility] Comment on above: Performed By: #### C BC #### [facility] [address] [place] [address] Dr. Dk Mahoney MCHC (RBC) [Mass/Vol] 31.0 g/dL Normal 29.9-35.2 [facility] Comment on above: Performed By: #### C BC #### [facility] [address] [place] [address] Dr. Dk Mahoney MCV (RBC) [Entitic vol] 82.3 fL Normal 80.0-94.0 [facility] Comment on above: Performed By: #### C BC #### [facility] [address] [place] [address] Dr. Dk Mahoney MONO # 0.9 103/ul Critically high 0.3-0.8 [facility] Comment on above: Performed By: #### C BC #### [facility] [address] [place] [address] Dr. Dk Mahoney Monocytes/100 WBC (Bld) 12.4 % Critically high 1.7-12.0 [facility] Comment on above: Performed By: #### C BC #### [facility] [address] [place] [address] Dr. Dk Mahoney NEUT # 4.6 103/ul Normal 1.4-6.5 [facility] Comment on above: Performed By: #### C BC #### [facility] [address] [address] [address] Dk Mahoney Neutrophils/100 WBC (Bld) 60.3 % Normal 43.0-75.0 [facility] Comment on above: Performed By: #### C BC #### [facility] [address] [address] [address] Dk Mahoney Platelet mean volume (Bld) [Entitic vol] 9.5 fL Normal 9.5-13.5 [facility] Comment on above: Performed By: #### C BC #### [facility] [address] [place] [address] Dr. Dk Mahoney PLT 201 103/ul Normal 150-450 [facility] Comment on above: Performed By: #### C BC #### [facility] [address] [place] [address] Dr. Dk Mahoney RBC 3.17 106/ul Critically low 4.70-6.10 [facility] Comment on above: Performed By: #### C BC #### [facility] [address] [place] [address] Dr. Dk Mhaoney WBC 7.5 103/ul Normal 4.0-11.0 [facility] Comment on above: Performed By: #### C BC #### [facility] [place] [facility] [address] [place] [address] Dr. Dk Mahoney PROF CHEM 8 (BAS METB)on Anion gap [Moles/Vol] 12.3 mmol/L Normal [facility] Comment on above: Performed By: #### M G, CMP, PHOS #### [facility] [place] [facility] [address] [place] [address] Dr. Dk Mahoney Calcium [Mass/Vol] 9.6 mg/dL Normal 8.5-10.1 [facility] Comment on above: Performed By: #### M G, CMP, PHOS #### [facility] [place] [facility] [address] [address] [address] Dk Mahoney Chloride [Moles/Vol] 107 mmol/L Normal 98-107 [facility] Comment on above: Performed By: #### M G, CMP, PHOS #### [facility] [place] [facility] [address] [address] [address] Dk Mahoney CO2 [Moles/Vol] 26.5 mmol/L Normal 21.0-32.0 [facility] Comment on above: Performed By: #### M G, CMP, PHOS #### [facility] [place] [facility] [address] [address] [address] Dk Mahoney Creatinine [Mass/Vol] 3.76 mg/dL Critically high 0.70-1.30 [facility] Comment on above: Performed By: #### M G, CMP, PHOS #### [facility] [place] [facility] [address] [address] [address] Dk Mahoney EGFR-AF LAO 19 mL/min/1.73m2 Critically low >=60 [facility] Comment on above: Performed By: #### M G, CMP, PHOS #### [facility] [place] [facility] [address] [address] [address] Dk Mahoney EGFR-NON AF LAO 16 mL/min/1.73m2 Critically low >=60 [facility] Comment on above: Performed By: #### M G, CMP, PHOS #### [facility] [place] [facility] [address] [address] [address] Dk Mahoney Glucose [Mass/Vol] 143 mg/dL Critically high 74-106 [facility] Comment on above: Performed By: #### M G, CMP, PHOS #### [facility] [place] [facility] [address] [address] [address] Dk Mahoney Potassium [Moles/Vol] 4.8 mmol/L Normal 3.5-5.1 [facility] Comment on above: Performed By: #### M G, CMP, PHOS #### [facility] [place] [facility] [address] [address] [address] Dk Mahoney Sodium [Moles/Vol] 141 mmol/L Normal 136-145 [facility] Comment on above: Performed By: #### M G, CMP, PHOS #### [facility] [place] [facility] [address] [place], [place] [address] Dr. Dk Mahoney Urea nitrogen [Mass/Vol] 47.0 mg/dL Critically high 7.0-18.0 [facility] Comment on above: Performed By: #### M G, CMP, PHOS #### [facility] [place] [facility] [address] [place], [place] [address] Dr. Dk Mahoney Urea nitrogen/Creatinine [Mass ratio] 12.5 mg/mg Normal [facility] Comment on above: Performed By: #### M G, CMP, PHOS #### [facility] [place] [facility] [address] [place], [place] [address] Dr. Dk Mahoney US ROWAN DOP LEG [...] by: MARQUES AMAYA Date: 2021-10-24 18:07 Normal [facility] Office Visit (Urology)on Follow-up visit Diagnoses/Problems [...] Verbal consent was requested and obtained from MATTKirill KELLY on this date, 09/06/2020 03:30 PM [...] d By: Riana Pro on 08-29-2020 - [employer] Work Phone: Amorphous, UA NOT REPORTED None [employer] [facility] Work Phone: Bacteria, UA 2+ Abnormal None [employer] Work Phone: Casts UA NOT REPORTED /LPF [employer] Work Phone: Crystals, UA NOT REPORTED None /HPF [employer] [facility] Work Phone: Epithelial Cells UA 2 TO 5 [employer] Work Phone: Mucus, UA NOT REPORTED None [facility] Work Phone: Other Observations UA NOT REPORTED NOT REQ. [facility] Work Phone: RBC, UA 50 TO 100 [facility] Work Phone: Renal Epithelial, UA NOT REPORTED 0 /HPF [facility] Work Phone: Trichomonas, UA NOT REPORTED None [facility] Work Phone: WBC, UA GREATER THAN 100 [facility] Work Phone: Yeast, UA NOT REPORTED None [facility] Work Phone: No Panel InformationOrdered By: Riana Pro on 08-29-2020 Interpretation and review of laboratory results Abnormal [facility] Work Phone: [facility] Work Phone: Urinalysis Reflex to Culture Ordered By: Riana Pro on 08-29-2020 Bilirubin Urine Negative NEGATIVE [facility] Work Phone: Color, UA YELLOW YELLOW [facility] Work Phone: Glucose, Ur Negative NEGATIVE [facility] Work Phone: Ketones Ql (U) Negative NEGATIVE [facility] Work Phone: Leukocyte esterase Test strip Ql (U) LARGE Abnormal NEGATIVE [facility] Work Phone: Nitrite, Urine Positive Abnormal NEGATIVE [facility] Work Phone: pH, UA 7.5 [facility] Work Phone: Protein, UA 1+ Abnormal NEGATIVE [facility] Work Phone: Specific [place], UA 1.010 [facility] Work Phone: Turbidity UA CLEAR CLEAR [facility] Work Phone: Urinalysis Comments NOT REPORTED [facility] Work Phone: Urine Hgb 3+ Abnormal NEGATIVE [facility] Work Phone: Urobilinogen, Urine Normal Normal [facility] Work Phone: Microscopic Urinalysison Amorphous, UA NOT REPORTED None [facility] [place] [place] Bacteria, UA 2+ Abnormal None [facility], [place] Casts UA NOT REPORTED /LPF [place], [place] Crystals, UA NOT REPORTED None /HPF [facility], [place] Epithelial Cells UA 2 TO 5 [place], [place] Mucus, UA NOT REPORTED None [facility], [place] Other Observations UA NOT REPORTED NOT REQ. [place], [place] RBC (U) [#/Vol] 20 TO 50 [facility] [place] [place] Renal Epithelial, UA NOT REPORTED 0 /HPF [place], [place] Trichomonas, UA NOT REPORTED None [place], [place] WBC, UA GREATER THAN 100 [place], [place] Yeast, UA NOT REPORTED None [facility], [place] - [place], [place] Otheron 02-03-2020 Interpretation and review of laboratory results Abnormal [place], [place] Urinalysison 02-03-2020 Bilirubin Urine Negative NEGATIVE [place], [place] Color, UA YELLOW YELLOW [place], [place] Glucose, Ur Negative NEGATIVE [place] Ketones Ql (U) Negative NEGATIVE [place], [place] Leukocyte esterase Test strip Ql (U) LARGE Abnormal NEGATIVE [place] Nitrite, Urine Positive Abnormal NEGATIVE [place], [place] pH, UA 8.0 [place], [place] Protein (U) [Mass/Vol] TRACE Abnormal NEGATIVE [place], [place] Specific [place], UA 1.015 [place] Turbidity UA SLIGHTLY CLOUDY Abnormal CLEAR [place], [place] Urinalysis Comments NOT REPORTED [place], [place] Urine Hgb 3+ Abnormal NEGATIVE [place] Urobilinogen, Urine Normal Normal [place], [place] Social History Date Type Detail Facility Start: 02-05-2019 Tobacco smoking status NHIS Unknown if ever smoked [place], [place] Start: 1950 Sex Assigned At Not on file [facility], [place] Sex Assigned At Sex Assigned At Bir th [facility] Other Vital Signs Date Time Vital Sign Value Performing Clinician Facility 10-08-2022 12:20-0400 Body height 180.34 cm Devaughn Khadijah Other [facility] Other 10-08-2022 12:20-0400 Body temperature 96.6 [degF] Devaughn Khadijah Other [facility] Other 10-08-2022 12:20-0400 Diastolic blood pressure 60 mm[Hg] Devaughn Khadijah Other [facility] Other 10-08-2022 12:20-0400 Respiratory rate 18 /min Devaughn Khadijah Other [facility] Other 10-08-2022 12:20-0400 SaO2% (BldA) [Mass fraction] 100 % Devaughn Khadijah Other [facility] Other 10-08-2022 12:20-0400 Systolic blood pressure 121 mm[Hg] Devaughn Khadijah Other [facility] Other 10-01-2022 13:30-0400 Body height 180.34 cm Erik Sanderson Other [facility] Other 10-01-2022 13:30-0400 Body mass index (BMI) [Ratio] 42.12 kg/m2 Erik Sanderson Other [facility] Other 10-01-2022 13:30-0400 Body temperature 97.2 [degF] Erik Sanderson Other [facility] Other 10-01-2022 13:30-0400 Body weight 136.99 kg Erik Sanderson Other [facility] Other 10-01-2022 13:30-0400 Diastolic blood pressure 68 mm[Hg] Erik Sanderson Other [facility] Other 10-01-2022 13:30-0400 SaO2% (BldA) [Mass fraction] 97 % Erik Sanderson Other [facility] Other 10-01-2022 13:30-0400 Systolic blood pressure 138 mm[Hg] Erik Sanderson Other [facility] Other Evaluation note 10-08-2022 Note Date & Type Note Facility 10-08-2022 Evaluation note Encounter Date Diagnosis Assessment Notes Sep, CKD (chronic kidney disease) stage 4, GFR 15-29 ml/min (ICD-10 - N18.4) He has a CKD due to the longstanding hypertension and recurrent SHAWN due to the obstructive uropathy. He recently required hemodialysis due to the obstructive uropathy. He was monitored by the [place] and catheter was removed as his renal function was improving as per the patient. Patient currently bedbound and can not be transferred out of the stretcher at our office. He does not want to follow-up in our office. Advised him [facility] and renal function monitoring Patient's recent lab from the [place] are not available. 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 He appears to be euvolemic. Continue current medications. Sep, Secondary hyperparathyroidism (ICD-10 - N25.81) Continue sevelamer and vitamin D as prescribed by [place] physician. [facility] Sep, Anemia of renal disease (ICD-10 - D63.1) Continue oral iron. Sep, Nephrolithiasis (ICD-10 - N20.0) Continue follow up with urology. [facility] Other Evaluation note 10-01-2022 Note Date & [...] this well and a dressing was applied. [facility] Other Evaluation note Note Date & Type Note Facility Evaluation note No Information [employer] Other History general Narrative - Reported Note [...] REMOVAL Hospitalization History SEE ABOVE Hospitalization History [facility] 09/11[facility]19 23 [facility] Other Advance Directives No Advanced Directives Records FoundDocuments on File Type Date Recorded Patient Certified Home Health Aide Expl anation ACP-Advance Directive ACP-Power of Deck Hand Summary Purpose Family History No Family History Records FoundNo Family History Records FoundNo Family History Records FoundNo Family History Records FoundNo Family History Records Found Additional Source Comments (unrecognized sect ion and content) No Status Records FoundNo Status Records FoundNo Status Records FoundNo Status Records FoundNo Status Records Found INFORMATION SOURCE (unrecogn ized section and content) DATE CREATED AUTHOR 09/09/2020 [place] DATE CREATED AUTHOR AUTHOR'S ORGANIZ ATION 07/20/2022 [facility] DATE CREATED AUTHOR AUTHOR'S ORGANIZ ATION 09/22/2022 Livan Ho [facility] DATE CREATED AUTHOR AUTHOR'S ORGANIZ ATION 10/29/2022 [facility] DATE CREATED AUTHOR AUTHOR'S [...] BE BASED ON THE PRIMARY CLINICAL RECORDS. [facility] [employer] [facility]. provides no warranty or guarantee of the accuracy or completeness of information in this document.
[2023-10-14 18:19] LABS: Hematocrit 29.6 % (42.0-54.0); Hemoglobin 9.4 g/dL (14.0-18.0); Mean Corpuscular HGB Conc 31.8 g/dL (29.9-35.2); Mean Corpuscular Hemoglobin 29.7 pg (25.9-34.0); Mean Corpuscular Volume 93.4 fL (80.0-94.0); Mean Platelet Volume 10.2 fL (9.5-13.5); Platelet Count 160 10^3/uL (150-450); Red Blood Count 3.17 10^6/uL (4.70-6.10); Red Cell Distribution Width 16.1 % (11.0-15.0); White Blood Count 19.3 10^3/uL (4.0-11.0)
[2023-10-14 18:22] LABS: Bilirubin Urine NEGATIVE (NEGATIVE); Blood Urine LARGE (NEGATIVE); Clarity Urine CLOUDY (CLEAR); Color Urine YELLOW (YELLOW); Glucose Urine UA 250 mg/dL (NEGATIVE); Ketones Urine NEGATIVE (NEGATIVE); Leukocyte Esterase Urine MODERATE (NEGATIVE); Nitrite Urine NEGATIVE (NEGATIVE); Protein Urine 100 mg/dL (NEG/TRACE); Urobilinogen Urine 0.2 EU/dL (0.2-1.0); pH Urine 6.5 (5.0-9.0)
[2023-10-14 18:29] LABS: Anion Gap 19.7; BUN Creatinine Ratio 14.2; Calcium 9.8 mg/dL (8.5-10.1); Carbon Dioxide 19.4 mmol/L (21.0-32.0); Chloride 101 mmol/L (98-107); Estimated GFR (African America 9 (>=60); Estimated GFR (Non-African Ame 8 (>=60); Glucose 144 mg/dL (74-106); Potassium 5.1 mmol/L (3.5-5.1); Sodium 135 mmol/L (136-145)
[2023-10-14 18:38] LABS: Bacteria Urine MODERATE #/HPF (NONE SEEN); Cast Seen? NONE SEEN #/LPF (NONE SEEN); Crystals Seen? None Seen #/HPF (None Seen); Mucus Urine NONE SEEN (NONE SEEN); RBC Urine 20-50 #/HPF (0-2); Squamous Epithelial Cell Urine RARE #/LPF (NONE/RARE); Urine Culture Indicated YES; WBC Urine 50-75 #/HPF (NONE SEEN)
[2023-10-14 18:39] LABS: Band Neutrophils Absolute 0.6 10^3/uL (0.0-0.3); Basophils Abs Manual 0.19 10^3/uL (0.00-0.10); Eosinophils Absolute Manual 0.38 10^3/uL (0.00-0.70); Lymphocytes Absolute Manual 0.38 10^3/uL (1.20-3.80); Monocytes Absolute Manual 1.35 10^3/uL (0.30-0.80)
[2023-10-14] MEDS: CEFTRIAXONE 1,000 MG in 0.9 % SODIUM CHLORIDE 50 ML 100 MG IV (18:57)
[2023-10-14 19:26] LABS: Lactate/Lactic Acid 2.5 mmol/L (0.4-2.0)
--- NOTE | 2023-10-14 19:32 | ED_ITS ---
HPI HPI - General Adult General Chief complaint: Abdominal Pain Stated complaint: Infection Time Seen by Provider: 10/14/23 17:23 Source: patient Mode of arrival: ambulance History of Present Illness HPI narrative: This 73-year-old male with a history of morbid obesity, chronic renal insufficiency, indwelling Wooten catheter who is cared for at home by several home health aides and/or nurses is brought to the emergency department by EMS from home for evaluation of chills and sweats and concern for UTI. The patient has a program director scouting at the [place] who he recently spoke to. The program director scouting does not think that he requires dialysis at this time. The patient states that he got very nauseated earlier today with chills and sweats. Upon arrival he was noted to have a low-grade fever. He has an elevated white count. BUN and creatinine are elevated. He does have a normal potassium. Urine is positive for leukocyte esterase and 50-75 white blood cells per high-power field. Blood cultures and lactic acid are pending at this time. He was seen and evaluated. He appears generally deconditioned, he is warm to the touch. He had an episode of bilious vomiting prior to me coming into the room. He denies any abdominal pain. He denies any chest pain or shortness of breath. Blood cultures are still pending, lactic acid is elevated at 2.5. I did review his urine culture results from August and he was positive for Pseudomonas which was sensitive to Levaquin and imipenem. He will be given a dose of Levaquin in addition to the Rocephin that he had earlier today and admitted for further evaluation and treatment. At this time according to him he does not require dialysis. He will be given very gentle hydration to prevent fluid overload due to his poor renal function. Related Data Home Medications ?Medication ?Instructions ?Recorded ?Confirmed acetaminophen 325 mg capsule 975 mg PO TID PRN fever or pain 08/17/23 09/11/23 (Tylenol) albuterol 90 mcg/actuation aerosol 180 mcg inhalation QID PRN 08/17/23 09/11/23 inhaler shortness of breath or wheezing aspirin 81 mg tablet,delayed 81 mg PO DAILY 08/17/23 09/11/23 release (Adult Low Dose Aspirin) atorvastatin 80 mg tablet 80 mg PO .QHS 08/17/23 09/11/23 bacitracin zinc 500 unit/gram 1 applic topical DAILY PRN skin 08/17/23 09/11/23 topical ointment irritation calcitriol 0.25 mcg capsule 0.25 mcg PO .3 TIMES WEEK 08/17/23 09/11/23 carvedilol 12.5 mg tablet 12.5 mg PO BID 08/17/23 09/11/23 cholecalciferol (vitamin D3) 50 2,000 unit PO DAILY 08/17/23 09/11/23 mcg (2,000 unit) capsule clobetasol 0.05 % topical cream 1 applic topical BID 08/17/23 09/11/23 darbepoetin danielle in polysorbat 100 100 mcg subcut QWEEK 08/17/23 09/11/23 mcg/mL in polysorbate injection darifenacin 15 mg tablet,extended 15 mg PO DAILY 08/17/23 09/11/23 release 24 hr ferrous sulfate 325 mg (65 mg 325 mg PO .QOD 08/17/23 09/11/23 iron) tablet,delayed release finasteride 5 mg tablet 5 mg PO DAILY 08/17/23 09/11/23 guaifenesin 600 mg tablet, 600 mg PO BID PRN congestion 08/17/23 09/11/23 extended release 12 hr hydrophilic cream 1 applic topical BID 08/17/23 09/11/23 levothyroxine 75 mcg capsule 75 mcg PO QAM 08/17/23 09/11/23 lidocaine HCl 2 % topical gel 1 applic topical DAILY PRN pain 08/17/23 09/11/23 lidocaine HCl 4 % topical ointment 1 ea topical TID PRN pain 08/17/23 09/11/23 (AsperFlex (lidocaine HCl)) loratadine 10 mg tablet (Allergy 10 mg PO .QOD 08/17/23 09/11/23 Relief (loratadine)) melatonin 3 mg tablet 3 mg PO .QHS PRN sleep 08/17/23 09/11/23 miconazole nitrate 2 % topical 1 applic topical DAILY PRN fungal 08/17/23 09/11/23 powder (Remedy Phytoplex Antifungal) multivitamin 1 tab PO DAILY 08/17/23 09/11/23 nitroglycerin 0.4 mg sublingual 0.4 mg sublingual Q5M PRN chest 08/17/23 09/11/23 tablet pain omeprazole 20 mg tablet,delayed 20 mg PO DAILY 08/17/23 09/11/23 release polyethylene glycol 3350 17 17 g PO DAILY PRN constipation 08/17/23 09/11/23 gram/dose oral powder (Miralax) potassium citrate-citric acid 30 ml PO DAILY 08/17/23 09/11/23 1,100 mg-334 mg/5 mL oral solution pramoxine 1 % lotion 1 applic topical TID PRN itching 08/17/23 09/11/23 semaglutide 2 mg/dose (8 mg/3 mL) 0.5 mg subcut QWEEK 08/17/23 09/11/23 subcutaneous pen injector (Ozempic) sennosides 8.6 mg capsule 8.6 mg PO DAILY PRN constipation 08/17/23 09/11/23 trazodone 100 mg tablet 100 mg PO .QHS 08/17/23 09/11/23 venlafaxine 37.5 mg 37.5 mg PO DAILY 08/17/23 09/11/23 capsule,extended release 24 hr wound dressings (Triad Wound 1 applic topical .COMPLEX 08/17/23 09/11/23 Dressing paste) zinc oxide 20 % topical ointment 1 applic topical DAILY PRN skin 08/17/23 09/11/23 irritation ixekizumab 80 mg/mL subcutaneous See Rx Instructions subcut .COMPLEX 09/11/23 09/11/23 syringe sodium chloride 0.65 % nasal spray 2 spray intranasal QID PRN dry 09/11/23 09/11/23 aerosol ([place] Saline) nasal passages triamcinolone acetonide 0.1 % 1 applic topical BID 09/11/23 09/11/23 topical ointment Previous Rx's ?Medication ?Instructions ?Recorded vancomycin 125 mg capsule 125 mg PO Q6H 10 days #40 caps 09/13/23 Allergies Allergy/AdvReac Type Severity Reaction Status Date / Time Penicillins Allergy Mild Rash Verified 09/25/23 15:39 ferumoxides Allergy Rash Verified 09/25/23 15:39 sulfamethoxazole AdvReac Mild Nausea Verified 09/25/23 15:39 [From Sulfamethoxazole-Trimethoprim] trimethoprim AdvReac Mild Nausea Verified 09/25/23 15:39 [From Sulfamethoxazole-Trimethoprim] Opioid HPI Opioid Management Most Recent Opioid Data: Last Pain Scale 5 10/14/23 17:30 Last ORT Total Score 0 09/11/23 03:04 Last ORT Risk Category Low Risk 09/11/23 03:04 [facility] Medical History (Updated 10/14/23 @ 18:50 by Chivo Kamara MD) C. 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 - Other specified dermatitis (ICD-10) CAD (coronary artery disease) ?I25.10 - Atherosclerotic heart disease of [place] coronary artery without angina pectoris (ICD-10) T2DM (type 2 diabetes mellitus) ?E11.9 - Type 2 diabetes mellitus without complications (ICD-10) Hypothyroid ?E03.9 - Hypothyroidism, unspecified (ICD-10) HLD (hyperlipidemia) ?E78.5 - Hyperlipidemia, unspecified (ICD-10) HTN (hypertension) ?I10 - Essential (primary) hypertension (ICD-10) Anemia in CKD (chronic kidney disease) ?N18.9 - Chronic kidney disease, unspecified (ICD-10) ?D63.1 - Anemia in chronic kidney disease (ICD-10) Chronic indwelling Wooten catheter ?Z97.8 - Presence of other specified devices (ICD-10) Paraplegia ?G82.20 - Paraplegia, unspecified (ICD-10) Bedbound ?Z74.01 - Bed confinement status (ICD-10) H/O: CVA (cerebrovascular accident) ?Z86.73 - Personal history of transient ischemic attack (TIA), and cerebral infarction without residual deficits (ICD-10) CKD (chronic kidney disease) stage 5, GFR less than 15 ml/min ?N18.5 - Chronic kidney disease, stage 5 (ICD-10) Surgical History (Updated 09/11/23 @ 03:19 by Bethany Amor) H/O heart artery stent ?Z95.5 - Presence of coronary angioplasty implant and graft (ICD-10) Social History (Updated 09/11/23 @ 01:42 by Bethany Amor) Within the past year, how often did you have a drink containing alcohol: never Score interpretation: A score less than 4 is consistent with normal alcohol consumption. Smoking status: Former smoker Non-prescribed substance use: denies use Highest level of school completed/degree received: Associate degree: o ccupational, technical, vocational program Are you now , , , , never or living with a partner: don't know In a typical week, how many times do you talk on the telephone with family, friends, or neighbors: never How often do you get together with friends or relatives: never How often do you attend christian or synagogue services: never Little interest or pleasure in doing things: not at all Feeling down, depressed, or hopeless: not at all Do you think of yourself as: straight/heterosexual Gender Identity: male Exam Constitutional Vital Signs, click to edit/add: Last Vital Signs Temp 99.9 F 10/14/23 17:22 Pulse 112 H 10/14/23 18:50 Resp 26 H 10/14/23 18:50 BP 133/65 10/14/23 17:22 Pulse Ox 100 10/14/23 17:22 O2 Del Method Room Air 10/14/23 17:22 Course Vital Signs Vital signs: Vital Signs Temperature 99.9 F 10/14/23 17:22 Pulse Rate 94 H 10/14/23 17:22 Respiratory Rate 20 10/14/23 17:22 Blood Pressure 133/65 10/14/23 17:22 Pulse Oximetry 100 10/14/23 17:22 Oxygen Delivery Method Room Air 10/14/23 17:22 Temperature 99.9 F 10/14/23 17:22 Pulse Rate 112 H 10/14/23 18:50 Respiratory Rate 26 H 10/14/23 18:50 Blood Pressure 133/65 10/14/23 17:22 Pulse Oximetry 100 10/14/23 17:22 Oxygen Delivery Method Room Air 10/14/23 17:22 Medical Decision Making Lab Data Labs: Lab Results 10/14/23 Range/Units 18:10 WBC 19.3 H (4.0-11.0) 10^3/uL RBC 3.17 L (4.70-6.10) 10^6/uL Hgb 9.4 L (14.0-18.0) g/dL Hct 29.6 L (42.0-54.0) % MCV 93.4 (80.0-94.0) fL MCH 29.7 (25.9-34.0) pg MCHC 31.8 (29.9-35.2) g/dL RDW 16.1 H (11.0-15.0) % Plt Count 160 (150-450) 10^3/uL MPV 10.2 (9.5-13.5) fL Seg Neuts % (Manual) 85.0 Band Neutrophils % 3.0 (0-5) % Lymphocytes % (Manual) 2.0 L (20.5-60.0) % Monocytes % (Manual) 7.0 (1.7-12.0) % Eosinophils % (Manual) 2.0 (0.9-7.0) % Basophils % (Manual) 1.0 (0.2-2.0) % Neutrophils # (Manual) 16.40 H (1.4-6.5) 10^3/uL Band Neutrophils # 0.6 H (0.0-0.3) 10^3/uL Lymphocytes # (Manual) 0.38 L (1.20-3.80) 10^3/uL Monocytes # (Manual) 1.35 H (0.30-0.80) 10^3/uL Eosinophils # (Manual) 0.38 (0.00-0.70) 10^3/uL Basophils # (Manual) 0.19 H (0.00-0.10) 10^3/uL Sodium 135 L (136-145) mmol/L Potassium 5.1 (3.5-5.1) mmol/L Chloride 101 (98-107) mmol/L Carbon Dioxide 19.4 L (21.0-32.0) mmol/L Anion Gap 19.7 BUN 99.0 H* (7.0-18.0) mg/dL Creatinine 6.99 H* (0.70-1.30) mg/dL Est GFR ( Amer) 9 L (>=60) Est GFR (Non-Af Amer) 8 L (>=60) BUN/Creatinine Ratio 14.2 Glucose 144 H (74-106) mg/dL Lactate 2.5 H* (0.4-2.0) mmol/L Calcium 9.8 (8.5-10.1) mg/dL Urine Color Yellow (YELLOW) Urine Clarity Cloudy A (CLEAR) Urine pH 6.5 (5.0-9.0) Ur Specific [place] 1.020 (1.005-1.025) Urine Protein 100 A (NEG/TRACE) mg/dL Urine Glucose (UA) 250 A (NEGATIVE) mg/dL Urine Ketones Negative (NEGATIVE) mg/dL Urine Occult Blood Large A (NEGATIVE) Urine Nitrite Negative (NEGATIVE) Urine Bilirubin Negative (NEGATIVE) Urine Urobilinogen 0.2 (0.2-1.0) EU/dL Ur Leukocyte Esterase Moderate A (NEGATIVE) Urine RBC 20-50 A (0-2) #/HPF Urine WBC 50-75 A (NONE SEEN) #/HPF Ur Squamous Epith Cells Rare (NONE/RARE) #/LPF Urine Crystals None seen (None Seen) #/HPF Urine Bacteria Moderate A (NONE SEEN) #/HPF Urine Casts None seen (NONE SEEN) #/LPF Urine Mucus None seen (NONE SEEN) Ur Culture Indicated? Yes Critical Care Time Critical Care Time Critical Care Time: Yes Total Critical Care Time: 35 Attestation: I personal;y evaluated and treated this patient Discharge Plan Discharge Chief Complaint: Abdominal Pain Clinical Impression: Urinary tract infection Disposition: Still a Patient Time of Disposition Decision: 20:49
[2023-10-14] MEDS: ONDANSETRON PF 4 MG/2 ML VIAL IV (20:11)
[2023-10-14] MEDS: ACETAMINOPHEN 325 MG TABLET 650 MG PO (20:11)
[2023-10-14] MEDS: 0.9 % SODIUM CHLORIDE 500 ML IV (20:11)
--- OUTSIDE RECORDS SUMMARY | 2023-10-14 21:31 | XMS_ITS | CCD ---
Author Organization [facility] Care Team Providers Care Senior Engineering Technician Name Role Phone Unavailable Primary Care Provider [...] e GRECHNY ., KENDRA MERIDA Consulting Unavailangela benson HAY ., DR BARAJAS Attending Unavailable HAY ., DR BARAJAS Admitting Unavailable REQUEST, DR BOOTH LISTED Primary Care UnavailMARQUES Byers Consulting Unavailable PAY ., DR GRAVES Consulting Unavailable PAY ., DR GRAVES Attending Unavailable PAY ., DR GRAVES Admitting Unavailable REQUEST, DR BOOTH LISTED Primary Care Unavaila YOAN Grady Consulting Unavailable PAY ., DR GRAVES Consulting Unavailable SHAIKH HUNTLEY H Attending Unavailable SHAIKH HUNTLEY H Admitting Unavailable MISC, DR YODER Primary Care Unavailable MORTEZA .DEVANTE Consulting Unavailable SHAIKH Irasema HUNTLEY Consulting Unavailable STRAWSER, MARQUES Consulting Unavailable ELEANOR ., PASHA Consulting [...] (antibiotic) (1 source) Penicillins Drug Allergy 02-06-20 [facility] (1 source) Penicillins Propensity to adverse reactions to drug 02-06-20 [place], [place] (2 sources) Penicillin; Translations: [penicillin] Drug Allergy [facility] Repository (2 sources) Sulfamethoxazole / Trimethoprim; Translations: [Bactrim] Drug Allergy [facility] Repository (1 source) No Known Medication Allergies; Translations: [No Known Medication Allergies] Propensity to adverse reactions (disorder) [facility] Repository (3 sources) Penicillin G Drug Allergy Unknown [facility] [employer] Other (3 sources) Sulfamethoxazole / Trimethoprim Drug Allergy Unknown [facility] [employer] Other (1 source) Penicillins Drug allergy (disorder) 08-31-19 [facility] Repository (1 source) Sulfamethoxazole Drug Allergy 08-31-19 [facility] Repository (1 source) Trimethoprim Drug Allergy 08-31-19 [facility] Repository Medications Current Medications Medication Drug [...] mouth every morning (before breakfast) 0 Active [id number] 200 actuat albuterol 0.09 mg/actuat metered dose [...] Once a day Active polyethylene glycol 3350 [id number] mg powder for oral solution (3 sources) [...] disease (2 sources) Atherosclerotic heart disease of [place] coronary artery without angina pectoris; Translations: [Chronic [...] Onset: 2 Chronic Other aftercare (1 source) jail (current) use of aspirin; Translations: [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 Comment on above: Performed By: #### U RC #### [place] [id number] [place], [place] [id number] Public Health Outreach Worker: Fredis Miller MD [facility] [address] [place] [address] [place] [address] Public Health Outreach Worker: Rao Espinosa MD UA w/Reflex Cultureon 2022 Bilirubin, SemiQt,Ur Negative Normal NEG [facility] Comment on above: Performed By: #### U MICAO, UAX #### [facility] [address] [place] [address] Public Health Outreach Worker: Rao Espinosa MD Blood, Urine 2+ Abnormal NEG [facility] Comment on above: Performed By: #### U MICAO, UAX #### [facility] [address] [place] [address] Public Health Outreach Worker: Rao Espinosa MD Clarity (U) Cloudy Abnormal CLEAR [facility] Comment on above: Performed By: #### U MICAO, UAX #### [facility] [address] [place], [place] [id number] Public Health Outreach Worker: Rao Espinosa MD Color (U) Yellow Normal YEL [facility] Comment on above: Performed By: #### U MICAO, UAX #### [facility] [address] [place], [place] [id number] Public Health Outreach Worker: Rao Espinosa MD Glucose Ql (U) TRACE Abnormal NEG [facility] in Hospital Comment on above: Performed By: #### U MICAO, UAX #### [facility] [address] [place] [address] [place], [place] [id number] Public Health Outreach Worker: Rao Espinosa MD Ketones Ql (U) Negative Normal NEG [facility] in Hospital Comment on above: Performed By: #### U MICAO, UAX #### [facility] [address] [place] [address] [address], [place] [id number] Public Health Outreach Worker: Rao Espinosa MD Leukocyte esterase Test strip Ql (U) LARGE Abnormal NEG [facility] Comment on above: Performed By: #### U MICAO, UAX #### [address] [place], [place] [phone] Public Health Outreach Worker: Rao Espinosa MD Nitrite,Ur Positive Abnormal NEG [facility] Comment on above: Performed By: #### U MICAO, UAX #### [facility] [address] [place] [address] [address], [place] [id number] Public Health Outreach Worker: Rao Espinosa MD PH,Ur 7.0 Normal 5.0-9.0 [facility] Comment on above: Performed By: #### U MICAO, UAX #### [facility] [address] [place] [address] [address], [place] [phone] Public Health Outreach Worker: Rao Espinosa MD Protein Ql (U) 1+ mg/dL Abnormal NEG [facility] in Hospital Comment on above: Performed By: #### U MICAO, UAX #### [facility] [address] [place], [place] [phone] Public Health Outreach Worker: Rao Espinosa MD Spec. Kenvil,Ur 1.010 Normal 1.010-1.020 [facility] Comment on above: Performed By: #### U MICAO, UAX #### [facility] [address] [place], [place] [phone] Public Health Outreach Worker: Rao Espinosa MD Urobilinogen,Ur Normal Normal 0.0-1.0 [facility] Comment on above: Performed By: #### U MICAO, UAX #### [facility] [address] [place], [place] [phone] Public Health Outreach Worker: Rao Espinosa MD Urinalysis,Microon 3 Bacteria 3+ Abnormal NONE [facility] Comment on above: Performed By: #### U MICAO, UAX #### [facility] [address] [place] [address] [place], [place] [id number] Public Health Outreach Worker: Rao Espinosa MD Epithelial cells LM Ql (Urine sed) 0 TO 2 Normal 0-5 [facility] Comment on above: Performed By: #### U MICAO, UAX #### [facility] [address] [place] [address] Dr[place], [place] [id number] Public Health Outreach Worker: Rao Espinosa MD Urine RBC's 5 TO 10 Normal 0-2 [facility] Comment on above: Performed By: #### U MICAO, UAX #### [facility] [address] [place], [place] [phone] Public Health Outreach Worker: Rao Espinosa MD Urine WBC's GREATER THAN 100 Normal 0-5 [facility] Comment on above: Performed By: #### U MICAO, UAX #### [facility] [address] [place] [address] Public Health Outreach Worker: Rao Espinosa MD Glucose Poct Glucometerson 0 09-04-2022 Glucose [Mass/Vol] 122 mg/dL Normal [facility] Comment on above: Result Comment: [facility] Glucose Reference Range is dependent on time and content of last meal. Glucose of more than 200 mg/dL in a nonstressed, ambulatory subject supports the diagnosis of Diabetes Mellitus. PERFORMED BY: [facility] [address] [place] [address] PATHOLOGIST IT ACCOUNT MANAGER BRANDEN WHATLEY M.D. Performed By: #### G LULS #### Point of Care testing , Renal Function Panelon 09-04 Albumin [Mass/Vol] 2.4 g/dL Low 3.5-5.[address] [facility] Comment on above: Performed By: #### G LULS #### Point of Care testing , Anion gap [Moles/Vol] 14.8 mmol/L Normal 6.0-15.0 [facility] Comment on above: Performed By: #### G LULS #### Point of Care testing , Calcium [Mass/Vol] 8.6 mg/dL Normal 8.6-10.[address] [facility] Comment on above: Performed By: #### G LULS #### Point of Care testing , Chloride [Moles/Vol] 99 mmol/L Normal 98-107 [facility] Comment on above: Performed By: #### G LULS #### Point of Care testing , CO2 [Moles/Vol] 24.7 mmol/L Normal 21.0-31.0 [facility] Comment on above: Performed By: #### G LULS #### Point of Care testing , Creatinine [Mass/Vol] 6.52 mg/dL Significan t change up 0.70-1.30 [facility] Comment on above: Performed By: #### G LULS #### Point of Care testing , Creatinine Clr Calc Pharmacy 16.01 Normal [facility] Comment on above: Result Comment: PERF ORMED BY: [facility] [address] [place] [address] PATHOLOGIST IT ACCOUNT MANAGER BRANDEN WHATLEY M.D. Performed By: #### G LULS #### Point of Care testing , GFR/1.73 sq M.predicted MDRD (S/P/Bld) [Vol rate/Area] 8.483 mL/min/{1.73_m2} Normal [facility] Comment on above: Performed By: #### G LULS #### Point of Care testing , Glucose [Mass/Vol] 115 mg/dL High 70-[address] [facility] Comment on above: Result Comment: [facility] Glucose Reference Range is dependent on time and content of last meal. Glucose of more than 200 mg/dL in a nonstressed, ambulatory subject supports the diagnosis of Diabetes Mellitus. ADA recommended reference range Performed By: #### G LULS #### Point of Care testing , Phosphate [Mass/Vol] 6.4 mg/dL Normal 3.7-7.2 [facility] Comment on above: Performed By: #### G LULS #### Point of Care testing , Potassium [Moles/Vol] 4.5 mmol/L Normal 3.5-5.1 [facility] Comment on above: Performed By: #### G LULS #### Point of Care testing , Sodium [Moles/Vol] 134 mmol/L Low 136-[address] [facility] Comment on above: Performed By: #### G LULS #### Point of Care testing , Urea nitrogen [Mass/Vol] 76 mg/dL High 7-25 [facility] Comment on above: Performed By: #### G LULS #### Point of Care testing , [facility] SARS-CoV-2 (COVID-19) RNA JASON+probe Ql (Unsp spec) Negative Normal Negative [facility] Comment on above: Order Comment: Healt hcare Worker?: N Result Comment: Testing for SARS-CoV-2 by RT-PCR This test was developed and its performance characteristics determined by [employer] and validated at the [facility]. [...] is terminated or revoked sooner. PERFORMED BY: [place] [address] PATHOLOGIST IT ACCOUNT MANAGER BRANDEN WHATLEY M.D. Performed By: #### F E and TIB, [id number], ODALIS #### [address] Glucose Poct Glucometerson 0 09-03-2022 Glucose [Mass/Vol] 152 mg/dL Normal [facility] Comment on above: Result Comment: [facility] Glucose Reference Range is dependent on time and content of last meal. Glucose of more than 200 mg/dL in a nonstressed, ambulatory subject supports the diagnosis of Diabetes Mellitus. PERFORMED BY: [place] [address] PATHOLOGIST IT ACCOUNT MANAGER BRANDEN WHATLEY M.D. Performed By: #### G LULS #### Point of Care testing , Glucose [Mass/Vol] 111 mg/dL Normal [facility] Comment on above: Result Comment: [facility] Glucose Reference Range is dependent on time and content of last meal. Glucose of more than 200 mg/dL in a nonstressed, ambulatory subject supports the diagnosis of Diabetes Mellitus. PERFORMED BY: [place] [address] PATHOLOGIST IT ACCOUNT MANAGER BRANDEN WHATLEY M.D. Performed By: #### G LULS #### Point of Care testing , Glucose [Mass/Vol] 106 mg/dL Normal [facility] Comment on above: Result Comment: [facility] Glucose Reference Range is dependent on time and content of last meal. Glucose of more than 200 mg/dL in a nonstressed, ambulatory subject supports the diagnosis of Diabetes Mellitus. PERFORMED BY: [facility] [address] [place] [address] PATHOLOGIST IT ACCOUNT MANAGER BRANDEN WHATLEY M.D. Performed By: #### G LULS #### Point of Care testing , Glucose [Mass/Vol] 140 mg/dL Normal [facility] Comment on above: Result Comment: [facility] Glucose Reference Range is dependent on time and content of last meal. Glucose of more than 200 mg/dL in a nonstressed, ambulatory subject supports the diagnosis of Diabetes Mellitus. PERFORMED BY: [facility] [address] [place] [address] PATHOLOGIST IT ACCOUNT MANAGER BRANDEN WHATLEY M.D. Performed By: #### G [...] on above: Result Comment: PERF ORMED BY: [place] [address] PATHOLOGIST IT ACCOUNT MANAGER BRANDEN WHATLEY M.D. Performed By: #### G LULS #### Point of Care testing , Platelets (Bld) [#/Vol] 111 10*3/uL Significant change down 150-450 [facility] Comment on above: Performed By: #### G LULS #### Point of Care testing , RBC (Bld) [#/Vol] 2.86 10*6/uL Low 3.90-5.60 [facility] Comment on above: Performed By: #### G LULS #### Point of Care testing , WBC (Bld) [#/Vol] 8.1 10*3/uL Normal 4.1-10.[address] [facility] Comment on above: Performed By: #### G LULS #### Point of Care testing , Hepatitis Acute Panelon 08-13 HBsAg Screen Negative Normal Negative [facility] Comment on above: Order Comment: pt no t in room Performed By: #### F E and TIBC, [id number], ODALIS #### [facility] [address] [place] [address] Hepatitis A Antibody IgM Negative Normal Negative [facility] Comment on above: Order Comment: pt no t in room Performed By: #### F E and TIBC, [id number], ODALIS #### [facility] [address] [place] [address] Hepatitis B Core Antibody IgM Negative Normal Negative [facility] Comment on above: Order Comment: pt no t in room Result Comment: Ve rified by repeat analysis Performed By: #### F E and TIBC, [id number], ODALIS #### [facility] [address] [place] [address] Hepatitis C Virus Antibody Non-Reactive Normal Non Reactive [facility] Comment on above: Order Comment: pt no t in room Performed By: #### F E and TIBC, [id number], ODALIS #### [address] Interpretation Hepatitis C Normal . [facility] Comment on above: Order Comment: pt no t in room Result Comment: Not infected with HCV unless early or acute infection is suspected (which may be delayed in an immunocompromised individual), or other evidence exists to indicate HCV infection. Performed By: #### F E and TIBC, [id number], ODALIS #### [address] Hepatitis B Core Antibodyon 09-03-2022 Hepatitis B Core Antibody Negative Normal Negative [facility] Comment on above: Order Comment: pt no t in room Result Comment: Perf ormed at: - [facility] [address] [id number] Public Health Outreach Worker: Mata Pérez PhD, Phone: [phone] PERFORMED BY: [place] [address] PATHOLOGIST IT ACCOUNT MANAGER BRANDEN WHATLEY M.D. Performed By: #### F E and TIBC, [id number], ODALIS #### [address] Hepatitis B Surface Antibody on 09-03-2022 Hepatitis B Surface Antibody Reactive Normal . [facility] Comment on above: Order Comment: pt no t in room Result Comment: Non Reactive: Inconsistent with immunity, less than 10 mIU/mL Reactive: Consistent with immunity, greater than 9.9 mIU/mL Performed By: #### F E and TIBC, [id number], ODALIS #### [address] Renal Function Panelon 09-03 Albumin [Mass/Vol] 2.4 g/dL Low 3.5-5.[address] [facility] Comment on above: Performed By: #### G LULS #### Point of Care testing , Anion gap [Moles/Vol] 16.5 mmol/L High 6.0-15.0 [facility] Comment on above: Performed By: #### G LULS #### Point of Care testing , Calcium [Mass/Vol] 8.7 mg/dL Normal 8.6-10.[address] [facility] Comment on above: Performed By: #### G LULS #### Point of Care testing , Chloride [Moles/Vol] 101 mmol/L Normal 98-107 [facility] Comment on above: Performed By: #### G LULS #### Point of Care testing , CO2 [Moles/Vol] 22.4 mmol/L Normal 21.0-31.0 [facility] Comment on above: Performed By: #### G LULS #### Point of Care testing , Creatinine [Mass/Vol] 8.19 mg/dL Significan t change up 0.70-1.30 [facility] Comment on above: Performed By: #### G LULS #### Point of Care testing , Creatinine Clr Calc Pharmacy 12.70 [facility] Comment on above: Result Comment: PERF ORMED BY: [facility] [address] [place] [address] PATHOLOGIST IT ACCOUNT MANAGER BRANDEN WHATLEY M.D. Performed By: #### G LULS #### Point of Care testing , GFR/1.73 sq M.predicted MDRD (S/P/Bld) [Vol rate/Area] 6.452 mL/min/{1.73_m2} [facility] Comment on above: Performed By: #### G LULS #### Point of Care testing , Glucose [Mass/Vol] 112 mg/dL High 70-[address] [facility] Comment on above: Result Comment: [place] Glucose Reference Range is dependent on time and content of last meal. Glucose of more than 200 mg/dL in a nonstressed, ambulatory subject supports the diagnosis of Diabetes Mellitus. ADA recommended reference range Performed By: #### G LULS #### Point of Care testing , Phosphate [Mass/Vol] 6.7 mg/dL Normal 3.7-7.2 [facility] Comment on above: Performed By: #### G LULS #### Point of Care testing , Potassium [Moles/Vol] 4.9 mmol/L Normal 3.5-5.1 [facility] Comment on above: Performed By: #### G LULS #### Point of Care testing , Sodium [Moles/Vol] 135 mmol/L Low 136-[address] [facility] Comment on above: Performed By: [...] Methodology Reference range = Negative PERFORMED BY: [place] [address] PATHOLOGIST IT ACCOUNT MANAGER BRANDEN WHATLEY M.D. [facility] Comment on above: Performed By: #### G LULS #### Point of Care testing , XR chest 1V portableon 09-03 XR chest 1V portable [facility] [place] [address] XRay Report Signed Patient: Matt Kelly MR#: [id number] : 1950 Acct:[id number] Age/Sex: 71 / M ADM Date: 08/30/22 Loc: Room: [address] [place] [address] Type: ADM IN Attending Dr: Eldon López [...] M.D.09/03/2022 3:02 PM Dictation Location: [place] [address] Transcribed By: [facility] 09/03/22 1502 Dictated By: Rafi Morales II, MD 09/03/22 1501 Signed By: 09/03/22 1502 Normal [facility] Complete Blood Count Auto Di ffon 09-02-2022 Basophils (Bld) [#/Vol] 0.1 10*3/uL Normal 0.0-0.2 [facility] Comment on above: Result Comment: PERF ORMED BY: [facility] [address] [facility] [address] PATHOLOGIST IT ACCOUNT MANAGER BRANDEN WHATLEY M.D. Performed By: #### G [...] Hospital Comment on above: Performed By: #### Yonug RICHARDSLS #### Point of Care testing , [...] RBC (Bld) [#/Vol] 3.04 10*6/uL Low 3.90-5.60 [facility] Comment on above: Performed By: #### Young FRANK #### Point of Care testing , WBC (Bld) [#/Vol] 15.5 10*3/uL High 4.1-10.5 [facility] Comment on above: Performed By: #### Young FRANK #### Point of Care testing , Comprehensive Metabolic Pane real 09-02-2022 Albumin [Mass/Vol] 2.5 g/dL Low 3.5-5.[address] [facility] Comment on above: Performed By: #### C BC, RENAL, CMP ####[facility] [id number] [place] [id number] [facility] Albumin/Globulin [Mass ratio] 0.8 {ratio} Normal [facility] Comment on above: Performed By: #### C BC, RENAL, CMP ####[facility] [id number] [place] [address] [facility] ALP [Catalytic activity/Vol] 97 U/L Normal 34-104 [facility] Comment on above: Performed By: #### C BC, RENAL, CMP ####[facility] [place] [id number] [facility] ALT [Catalytic activity/Vol] 27 U/L Normal 7-52 [facility] Comment on above: Performed By: #### C BC, RENAL, CMP ####[place] [address] [place] [address] [facility] Anion gap [Moles/Vol] 15.2 mmol/L High 6.0-15.0 [facility] Comment on above: Performed By: #### C BC, RENAL, CMP ####[address] [address] [facility] AST [Catalytic activity/Vol] 14 U/L Normal 13-39 [facility] Comment on above: Performed By: #### C BC, RENAL, CMP ####[place] [address] [place] [address] [facility] Bilirubin [Mass/Vol] 0.3 mg/dL Normal 0.3-1.0 [facility] Comment on above: Performed By: #### C BC, RENAL, CMP ####[address] [address] [facility] Calcium [Mass/Vol] 8.5 mg/dL Low 8.6-10.[address] [facility] Comment on above: Performed By: #### C BC, RENAL, CMP ####[address] [address] [facility] Chloride [Moles/Vol] 106 mmol/L Normal 98-107 [facility] Comment on above: Performed By: #### C BC, RENAL, CMP ####[address] [address] [facility] CO2 [Moles/Vol] 20.3 mmol/L Low 21.0-31.0 [facility] Comment on above: Performed By: #### C BC, RENAL, CMP ####[address] [address] [facility] Creatinine [Mass/Vol] 6.98 mg/dL High 0.70-1.30 [facility] Comment on above: Performed By: #### C BC, RENAL, CMP ####[address] [address] [facility] Creatinine Clr Calc Pharmacy 14.33 Normal [facility] Comment on above: Performed By: #### C BC, RENAL, CMP ####[address] GFR/1.73 sq M.predicted MDRD (S/P/Bld) [Vol rate/Area] 7.816 mL/min/{1.73_m2} [facility] Comment on above: Performed By: #### C BC, RENAL, CMP ####[place] [id number] [facility] Globulin (S) [Mass/Vol] 3.1 g/dL [facility] Comment on above: Performed By: #### C BC, RENAL, CMP ####[address] Glucose [Mass/Vol] 118 mg/dL High 70-[address] [facility] Comment on above: Result Comment: [place] Glucose Reference Range is dependent on time and content of last meal. Glucose of more than 200 mg/dL in a nonstressed, ambulatory subject supports the diagnosis of Diabetes Mellitus. ADA recommended reference range Performed By: #### C BC, RENAL, CMP ####[place] [id number] [facility] Potassium [Moles/Vol] 5.5 mmol/L High 3.5-5.1 [facility] Comment on above: Performed By: #### C BC, RENAL, CMP ####[place] [id number] [facility] Protein [Mass/Vol] 5.6 g/dL Low 6.4-8.[address] [facility] Comment on above: Performed By: #### C BC, RENAL, CMP ####[place] [id number] [facility] Sodium [Moles/Vol] 136 mmol/L Normal 136-[address] [facility] Comment on above: Performed By: #### C BC, RENAL, CMP ####[place] [id number] [facility] Urea nitrogen [Mass/Vol] 92 mg/dL High 7-25 [facility] Comment on above: Performed By: #### C BC, RENAL, CMP ####[facility] [id number] [place] [address] [place] Consultation Noteon 09-03-19 Consultation Note [phone] [id number] Normal [facility] Glucose Poct Glucometerson 0 09-02-2022 Glucose [Mass/Vol] 161 mg/dL Normal [facility] Comment on above: Result Comment: [facility] Glucose Reference Range is dependent on time and content of last meal. Glucose of more than 200 mg/dL in a nonstressed, ambulatory subject supports the diagnosis of Diabetes Mellitus. PERFORMED BY: [facility] [address] [id number] PATHOLOGIST IT ACCOUNT MANAGER BRANDEN WHATLEY M.D. Performed By: #### G LULS #### Point of Care testing , Commemt1 Glu2: Cleaned Meter Normal [facility] Comment on above: Result Comment: PERF ORMED BY: [facility] [address] [place] [id number] PATHOLOGIST IT ACCOUNT MANAGER BRANDEN WHATLEY M.D. Performed By: #### G LULS #### Point of Care testing , Glucose [Mass/Vol] 244 mg/dL Normal [facility] Comment on above: Result Comment: [facility] Glucose Reference Range is dependent on time and content of last meal. Glucose of more than 200 mg/dL in a nonstressed, ambulatory subject supports the diagnosis of Diabetes Mellitus. Performed By: #### G LULS #### Point of Care testing , Insurance Correspondence Off iceon 09-02-2022 Insurance Correspondence Office [phone] [id number] Normal [facility] Renal Function Panelon 09-02 Phosphate [Mass/Vol] 6.5 mg/dL Normal 3.7-7.2 [facility] Comment on above: Result Comment: PERF ORMED BY: [facility] [address] [place] [address] PATHOLOGIST IT ACCOUNT MANAGER BRANDEN WHATLEY M.D. Performed By: #### C BC, RENAL, CMP ####[address] Complete Blood Count Auto Di ffon 09-01-2022 Basophils (Bld) [#/Vol] 0.1 10*3/uL Normal 0.0-0.2 [facility] Comment on above: Result Comment: PERF ORMED BY: [facility] [address] [place] [address] PATHOLOGIST IT ACCOUNT MANAGER BRANDEN WHATLEY M.D. Performed By: #### R ENAL, CBC, CMP ####[address] Basophils/100 WBC (Bld) 1.2 % Normal . [facility] Comment on above: Performed By: #### R ENAL, CBC, CMP ####[address] Eosinophils (Bld) [#/Vol] 0.3 10*3/uL Normal 0.0-0.45 [facility] Comment on above: Performed By: #### R ENAL, CBC, CMP ####[address] Eosinophils/100 WBC (Bld) 5.5 % Normal . [facility] Comment on above: Performed By: #### R ENAL, CBC, CMP ####[address] Erythrocyte distribution width (RBC) [Ratio] 14.7 % Normal 12.0-14.8 [facility] Comment on above: Performed By: #### R ENAL, CBC, CMP ####[address] Hematocrit (Bld) [Volume fraction] 25.2 % Low 38.8-50.0 [facility] Comment on above: Performed By: #### R ENAL, CBC, CMP ####[address] [address] [place] Hemoglobin (Bld) [Mass/Vol] 8.3 g/dL Low 13.0-17.0 [facility] Comment on above: Performed By: #### R ENAL, CBC, CMP ####[address] Lymphocytes (Bld) [#/Vol] 0.9 10*3/uL Low 1.00-4.8 [facility] Comment on above: Performed By: #### R ENAL, CBC, CMP ####[address] Lymphocytes/100 WBC (Bld) 14.6 % Normal . [facility] Comment on above: Performed By: #### R ENAL, CBC, CMP ####[address] MCH (RBC) [Entitic mass] 29.0 pg Normal 27.5-35.2 [facility] Comment on above: Performed By: #### R ENAL, CBC, CMP ####[address] MCV (RBC) [Entitic vol] 87.7 fL Normal 83.5-101 [facility] Comment on above: Performed By: #### R ENAL, CBC, CMP ####[address] Mean Corpuscular HGB Conc 33.0 g/dL Normal 32.5-35.6 [facility] Comment on above: Performed By: #### R ENAL, CBC, CMP ####[address] Monocytes (Bld) [#/Vol] 0.8 10*3/uL Normal 0.0-0.8 [facility] Comment on above: Performed By: #### R ENAL, CBC, CMP ####[address] Monocytes/100 WBC (Bld) 12.6 % Normal . [facility] Comment on above: Performed By: #### R ENAL, CBC, CMP ####[address] Neutrophils (Bld) [#/Vol] 4.0 10*3/uL Normal 1.8-7.7 [facility] Comment on above: Performed By: #### R ENAL, CBC, CMP ####[address] Neutrophils/100 WBC (Bld) 66.1 % Normal . [facility] Comment on above: Performed By: #### R ENAL, CBC, CMP ####[address] NRBC% 0.1 /100{WBC} Normal 0-0.5 [facility] Comment on above: Performed By: #### R ENAL, CBC, CMP ####[address] Platelet mean volume (Bld) [Entitic vol] 7.9 fL Normal 6.6-10.1 [facility] Comment on above: Performed By: #### R ENAL, CBC, CMP ####[address] Platelets (Bld) [#/Vol] 145 10*3/uL Low 150-450 [facility] Comment on above: Performed By: #### R ENAL, CBC, CMP ####[address] RBC (Bld) [#/Vol] 2.87 10*6/uL Low 3.90-5.60 [facility] Comment on above: Performed By: #### R ENAL, CBC, CMP ####[address] WBC (Bld) [#/Vol] 6.1 10*3/uL Normal 4.1-10.[address] [facility] Comment on above: Performed By: #### R ENAL, CBC, CMP ####[place] [address] [facility] Comprehensive Metabolic Pane real 09-01-2022 Albumin [Mass/Vol] 2.7 g/dL Low 3.5-5.[address] [facility] Comment on above: Performed By: #### R TELLY, CBC, CMP ####[facility] [id number] [place] [address] [facility] Albumin/Globulin [Mass ratio] 0.9 {ratio} Normal [facility] Comment on above: Performed By: #### R TELLY, CBC, CMP ####[facility] [id number] [place] [address] [facility] ALP [Catalytic activity/Vol] 107 U/L High 34-104 [facility] Comment on above: Performed By: #### R TELLY CBC, CMP ####[facility] [id number] [place] [address] [facility] ALT [Catalytic activity/Vol] 32 U/L Normal 7-52 [facility] Comment on above: Performed By: #### R TELLY, CBC, CMP ####[facility] [id number] [place] [address] [facility] Anion gap [Moles/Vol] 14.1 mmol/L Normal 6.0-15.0 [facility] Comment on above: Performed By: #### Fadia VARNER CBC, CMP ####[place] [address] [place] [address] [facility] AST [Catalytic activity/Vol] 21 U/L Normal 13-39 [facility] Comment on above: Performed By: #### R TELLY, CBC, CMP ####[facility] [id number] [place] [address] [facility] Bilirubin [Mass/Vol] 0.4 mg/dL Normal 0.3-1.0 [facility] Comment on above: Performed By: #### R TELLY, CBC, CMP ####[facility] [id number] [place] [address] [facility] Calcium [Mass/Vol] 8.9 mg/dL Normal 8.6-10.[address] [facility] Comment on above: Performed By: #### R ENAL, CBC, CMP ####[place] [address] [place] [id number] [facility] Chloride [Moles/Vol] 110 mmol/L High 98-107 [facility] Comment on above: Performed By: #### R TELLY CBC, CMP ####[place] [id number] [facility] CO2 [Moles/Vol] 17.7 mmol/L Low 21.0-31.0 [facility] Comment on above: Performed By: #### R TELLY CBC, CMP ####[address] Creatinine [Mass/Vol] 6.68 mg/dL Significan t change up 0.70-1.30 [facility] Comment on above: Performed By: #### R TELLY CBC, CMP ####[address] Creatinine Clr Calc Pharmacy 14.96 [facility] Comment on above: Performed By: #### R TELLY CBC, CMP ####[place] [id number] [facility] GFR/1.73 sq M.predicted MDRD (S/P/Bld) [Vol rate/Area] 8.239 mL/min/{1.73_m2} [facility] Comment on above: Performed By: #### R TELLY CBC, CMP ####[place] [id number] [facility] Globulin (S) [Mass/Vol] 3.0 g/dL [facility] Comment on above: Performed By: #### R ENDEVORA CBC, CMP ####[place] [id number] [facility] Glucose [Mass/Vol] 90 mg/dL Normal 70-[address] [facility] Comment on above: Result Comment: [place] Glucose Reference Range is dependent on time and content of last meal. Glucose of more than 200 mg/dL in a nonstressed, ambulatory subject supports the diagnosis of Diabetes Mellitus. ADA recommended reference range Performed By: #### R ENAL, CBC, CMP ####[facility] [place] [address] [facility] Potassium [Moles/Vol] 4.8 mmol/L Normal 3.5-5.1 [facility] Comment on above: Performed By: #### R ENAL, CBC, CMP ####[place] [address] [place] [address] [facility] Protein [Mass/Vol] 5.7 g/dL Low 6.4-8.[address] [facility] Comment on above: Performed By: #### R ENAL, CBC, CMP ####[place] [address] [place] [address] [facility] Sodium [Moles/Vol] 137 mmol/L Normal 136-[address] [facility] Comment on above: Performed By: #### R ENAL, CBC, CMP ####[address] [address] [facility] Urea nitrogen [Mass/Vol] 83 mg/dL High 7-25 [facility] Comment on above: Performed By: #### R ENAL, CBC, CMP ####[address] [address] [facility] Glucose Poct Glucometerson 0 - Glucose [Mass/Vol] 95 mg/dL Normal [facility] Comment on above: Result Comment: [facility] Glucose Reference Range is dependent on time and content of last meal. Glucose of more than 200 mg/dL in a nonstressed, ambulatory subject supports the diagnosis of Diabetes Mellitus. PERFORMED BY: [facility] [address] [address] PATHOLOGIST IT ACCOUNT MANAGER BRANDEN WHATLEY M.D. Performed By: #### G LULS #### Point of Care testing , Commemt1 Glu2: Cleaned Meter Normal [facility] Comment on above: Result Comment: PERF ORMED BY: [facility] [address] [place] [id number] PATHOLOGIST IT ACCOUNT MANAGER BRANDEN WHATLEY M.D. Performed By: #### G LULS #### Point of Care testing , Glucose [Mass/Vol] 96 mg/dL Normal [facility] Comment on above: Result Comment: [place] [facility] Glucose Reference Range is dependent on time and content of last meal. Glucose of more than 200 mg/dL in a nonstressed, ambulatory subject supports the diagnosis of Diabetes Mellitus. Performed By: #### G LULS #### Point of Care testing , Glucose [Mass/Vol] 100 mg/dL Normal [facility] Comment on above: Result Comment: [place] [facility] Glucose Reference Range is dependent on time and content of last meal. Glucose of more than 200 mg/dL in a nonstressed, ambulatory subject supports the diagnosis of Diabetes Mellitus. PERFORMED BY: [facility] [address] [place] [address] PATHOLOGIST IT ACCOUNT MANAGER BRANDEN WHATLEY M.D. Performed By: #### G LULS ####Point of Care testing, Renal Function Panelon 09-01 Phosphate [Mass/Vol] 7.0 mg/dL Normal 3.7-7.2 [facility] Comment on above: Result Comment: PERF ORMED BY: [facility] [address] [place] [address] PATHOLOGIST IT ACCOUNT MANAGER BRANDEN WHATLEY M.D. Performed By: #### R ENAL, CBC, CMP ####[facility] [id number] [place] [address] [facility] ABO/Rh Retypeon 08-31-2022 ABO/RH Recheck Result Negative Normal [facility] Comment on above: Order Comment: NEEDS DRAWN Result Comment: PERF ORMED BY: [facility] [address] [place] [address] PATHOLOGIST IT ACCOUNT MANAGER BRANDEN WHATLEY M.D. Basic Metabolic Panelon 08-13 Anion gap [Moles/Vol] 16.5 mmol/L High 6.0-15.0 [facility] Comment on above: Performed By: #### F E and TIBC, [id number], ODALIS #### [facility] [address] [place] [id number] [facility] Calcium [Mass/Vol] 8.3 mg/dL Low 8.6-10.[address] [facility] Comment on above: Performed By: #### F E and TIBC, [id number], ODALIS #### [facility] [address] Chloride [Moles/Vol] 111 mmol/L High 98-107 [facility] Comment on above: Performed By: #### F E and TIBC, [id number], ODALIS #### [facility] [address] CO2 [Moles/Vol] 14.2 mmol/L Low 21.0-31.0 [facility] Comment on above: Performed By: #### F E and TIBC, [id number], ODALIS #### [address] Creatinine [Mass/Vol] 5.39 mg/dL Significan t change up 0.70-1.30 [facility] Comment on above: Performed By: #### F E and TIBC, [id number], ODALIS #### [address] Creatinine Clr Calc Pharmacy 18.62 [facility] Comment on above: Performed By: #### F E and TIBC, [id number], ODALIS #### [address] GFR/1.73 sq M.predicted MDRD (S/P/Bld) [Vol rate/Area] 10.659 mL/min/{1.73_m2} [facility] Comment on above: Performed By: #### F E and TIBC, [id number], ODALIS #### [facility] [address] [place] [address] Glucose [Mass/Vol] 104 mg/dL High 70-[address] [facility] Comment on above: Result Comment: [place] Glucose Reference Range is dependent on time and content of last meal. Glucose of more than 200 mg/dL in a nonstressed, ambulatory subject supports the diagnosis of Diabetes Mellitus. ADA recommended reference range Performed By: #### F E and TIBC, [id number], ODALIS #### [facility] [address] Potassium [Moles/Vol] 4.7 mmol/L Normal 3.5-5.1 [facility] Comment on above: Performed By: #### F E and TIBC, [id number], ODALIS #### [address] Sodium [Moles/Vol] 137 mmol/L Normal 136-[address] [facility] Comment on above: Performed By: #### F E and TIBC, [id number], ODALIS #### [address] Urea nitrogen [Mass/Vol] 73 mg/dL High 7-25 [facility] Comment on above: Performed By: #### F E and TIBC, [id number], ODALIS #### [address] Complete Blood Count Auto Di ffon 08-31-2022 Basophils (Bld) [#/Vol] 0.0 10*3/uL Normal 0.0-0.2 [facility] Comment on above: Result Comment: PERF ORMED BY: [place] [address] PATHOLOGIST IT ACCOUNT MANAGER BRANDEN WHATLEY M.D. Performed By: #### B MP, CBC, MG ####[address] Basophils/100 WBC (Bld) 0.8 % Normal . [facility] Comment on above: Performed By: #### B MP, CBC, MG ####[place] [address] [place] Eosinophils (Bld) [#/Vol] 0.2 10*3/uL Normal 0.0-0.45 [facility] Comment on above: Performed By: #### B MP, CBC, MG ####[place] [address] [place] Eosinophils/100 WBC (Bld) 4.2 % Normal . [facility] Comment on above: Performed By: #### B MP, CBC, MG ####[address] Erythrocyte distribution width (RBC) [Ratio] 14.9 % High 12.0-14.8 [facility] Comment on above: Performed By: #### B MP, CBC, MG ####[address] Hematocrit (Bld) [Volume fraction] 19.8 % Off scale low 38.8-50.0 [facility] Comment on above: Result Comment: Crit ical Result HCT:19.8 called to and read back by: [id number] on 08/31/2022 11:09:15 by:SULY. Performed By: #### B MP, CBC, MG ####[address] Hemoglobin (Bld) [Mass/Vol] 6.4 g/dL Low 13.0-17.0 [facility] Comment on above: Performed By: #### B MP, CBC, MG ####[address] Lymphocytes (Bld) [#/Vol] 0.8 10*3/uL Low 1.00-4.8 [facility] Comment on above: Performed By: #### B MP, CBC, MG ####[address] Lymphocytes/100 WBC (Bld) 14.6 % Normal . [facility] Comment on above: Performed By: #### B MP, CBC, MG ####[address] MCH (RBC) [Entitic mass] 28.7 pg Normal 27.5-35.2 [facility] Comment on above: Performed By: #### B MP, CBC, MG ####[address] MCV (RBC) [Entitic vol] 88.3 fL Normal 83.5-101 [facility] Comment on above: Performed By: #### B MP, CBC, MG ####[address] Mean Corpuscular HGB Conc 32.5 g/dL Normal 32.5-35.6 [facility] Comment on above: Performed By: #### B MP, CBC, MG ####[address] Monocytes (Bld) [#/Vol] 0.5 10*3/uL Normal 0.0-0.8 [facility] Comment on above: Performed By: #### B MP, CBC, MG ####[address] Monocytes/100 WBC (Bld) 9.8 % Normal . [facility] Comment on above: Performed By: #### B MP, CBC, MG ####[address] Neutrophils (Bld) [#/Vol] 3.8 10*3/uL Normal 1.8-7.7 [facility] Comment on above: Performed By: #### B MP, CBC, MG ####[address] Neutrophils/100 WBC (Bld) 70.6 % Normal . [facility] Comment on above: Performed By: #### B MP, CBC, MG ####[address] NRBC% 0.0 /100{WBC} Normal 0-0.5 [facility] Comment on above: Performed By: #### B MP, CBC, MG ####[address] Platelet mean volume (Bld) [Entitic vol] 7.7 fL Normal 6.6-10.1 [facility] Comment on above: Performed By: #### B MP, CBC, MG ####[address] Platelets (Bld) [#/Vol] 142 10*3/uL Low 150-450 [facility] Comment on above: Performed By: #### B MP, CBC, MG ####[facility] [id number] RBC (Bld) [#/Vol] 2.24 10*6/uL Low 3.90-5.60 [facility] Comment on above: Performed By: #### B MP, CBC, MG ####[facility] [id number] [address] WBC (Bld) [#/Vol] 5.4 10*3/uL Normal 4.1-10.[address] [facility] Comment on above: Performed By: #### B MP, CBC, MG ####[facility] [id number] [address] Ferritinon 08-31-2022 Ferritin [Mass/Vol] 551.8 ng/mL High 23.9-336.2 [facility] Comment on above: Performed By: #### F E and TIBC, [id number], ODALIS #### [facility] [address] Glucose Poct Glucometerson 0 08-31-2022 Commemt1 Glu2: Cleaned Meter [facility] Comment on above: Result Comment: PERF ORMED BY: [place] [address] PATHOLOGIST IT ACCOUNT MANAGER BRANDEN WHATLEY M.D. Performed By: #### G LULS ####Point of Care testing, Glucose [Mass/Vol] 123 mg/dL Normal [facility] Comment on above: Result Comment: [facility] Glucose Reference Range is dependent on time and content of last meal. Glucose of more than 200 mg/dL in a nonstressed, ambulatory subject supports the diagnosis of Diabetes Mellitus. Performed By: #### G LULS ####Point of Care testing, Commemt1 Glu2: Cleaned Meter Normal [facility] Comment on above: Result Comment: PERF ORMED BY: [place] [address] PATHOLOGIST IT ACCOUNT MANAGER BRANDEN WHATLEY M.D. Performed By: #### G LULS #### Point of Care testing , Glucose [Mass/Vol] 101 mg/dL Normal [facility] Comment on above: Result Comment: [place] Glucose Reference Range is dependent on time and content of last meal. Glucose of more than 200 mg/dL in a nonstressed, ambulatory subject supports the diagnosis of Diabetes Mellitus. Performed By: #### G LULS #### Point of Care testing , Commemt1 Glu2: Cleaned Meter Normal [facility] Comment on above: Result Comment: PERF ORMED BY: [place] [address] PATHOLOGIST IT ACCOUNT MANAGER BRANDEN WHATLEY M.D. Performed By: #### G LULS #### Point of Care testing , Glucose [Mass/Vol] 126 mg/dL Normal [facility] Comment on above: Result Comment: [place] [facility] Glucose Reference Range is dependent on time and content of last meal. Glucose of more than 200 mg/dL in a nonstressed, ambulatory subject supports the diagnosis of Diabetes Mellitus. Performed By: #### G LULS #### Point of Care testing , Glucose [Mass/Vol] 123 mg/dL Normal [facility] Comment on above: Result Comment: [place] om Glucose Reference Range is dependent on time and content of last meal. Glucose of more than 200 mg/dL in a nonstressed, ambulatory subject supports the diagnosis of Diabetes Mellitus. PERFORMED BY: [place] [address] PATHOLOGIST IT ACCOUNT MANAGER BRANDEN WHATLEY M.D. Performed By: #### F E and TIBC, [id number], ODALIS #### [address] Haptoglobinon 08-31-2022 Haptoglobin 189 mg/dL Normal 44-215 [facility] Comment on above: Result Comment: PERF ORMED BY: [place] [address] PATHOLOGIST IT ACCOUNT MANAGER BRANDEN WHATLEY M.D. Performed By: #### G LULS #### Point of Care testing , Iron and TIBC Profileon 08-13 0 % Iron Saturation 27.5 % Normal 20-50 [facility] Comment on above: Performed By: #### F E and TIBC, [id number], ODALIS #### [facility] [address] Iron [Mass/Vol] 53 ug/dL Normal 50-212 [facility] Comment on above: Performed By: #### F E and TIBC, [id number], ODALIS #### [facility] [address] Total Iron Binding Capacity 193 ug/dL Low 255-450 [facility] Comment on above: Performed By: #### F E and TIBC, [id number], ODALIS #### [facility] [address] [place] [address] [place] Transferrin [Mass/Vol] 138 mg/dL Low 203-362 [facility] Comment on above: Performed By: #### F E and TIBC, [id number], ODALIS #### [facility] [address] [place] [address] LDH Lactate Dehydrogenaseon 08-31-2022 LDH Lactate Dehydrogenase 100 U/L Low 140-271 [facility] Comment on above: Result Comment: PERF ORMED BY: [place] [address] PATHOLOGIST IT ACCOUNT MANAGER RBANDEN WHATLEY M.D. Performed By: #### G LULS #### Point of Care testing , LeukoReduced RBCon 3 LeukoReduced RBC TRANSFUSED 08/31/22 1822 Normal [facility] Magnesiumon 08-31-2022 Magnesium [Mass/Vol] 1.2 mg/dL Low 1.9-2.7 [facility] Comment on above: Result Comment: PERF ORMED BY: [place] [address] PATHOLOGIST IT ACCOUNT MANAGER BRANDEN WHATLEY M.D. Performed By: #### F E and TIBC, [id number], ODALIS #### [address] Reticulocyte Counton 023 Reticulocyte Number 0.069 10*6/uL Normal 0.024-0.084 [facility] Comment on above: Result Comment: PERF ORMED BY: [place] [address] PATHOLOGIST IT ACCOUNT MANAGER BRANDEN WHATLEY M.D. Performed By: #### G LULS #### Point of Care testing , Reticulocyte Percent 2.7 % High 0.5-1.5 [facility] Comment on above: Performed By: #### G LULS #### Point of Care testing , Type and Screenon 08-31-2022 ABO and Rh group Nom (Bld) Blood group O Rh(D) negative Normal [facility] Comment on above: Order Comment: NEEDS DRAWN Result Comment: PERF ORMED BY: [place] [address] PATHOLOGIST IT ACCOUNT MANAGER BRANDEN WHATLEY M.D. Vit. B12/Folate Profileon Cobalamin (Vitamin B12) [Mass/Vol] 616 pg/mL Normal 180-914 [facility] Comment on above: Performed By: #### F E and TIBC, [id number], ODALIS #### [address] Folate 12.5 ng/mL Normal >5.9 [facility] Comment on above: Result Comment: Adrianna te reference range: >5.9 ng/ml The WHO technical consultation on folate and vitamin b12 deficiencies has determined that folate concentrations less than 4 ng/ml are considered deficient. PERFORMED BY: [place] [address] PATHOLOGIST IT ACCOUNT MANAGER BRANDEN WHATLEY M.D. Performed By: #### F E and TIBC, [id number], ODALIS #### [address] Blood Cultureon 08-30-2022 Bacteria identified Cx Nom (Bld) NO GROWTH 5 DAYS PERFORMED BY: [place] [address] PATHOLOGIST IT ACCOUNT MANAGER BRANDEN WHATLEY M.D. [facility] Comment on above: Performed By: #### G LULS #### Point of Care testing , Bacteria identified Cx Nom (Bld) NO GROWTH 5 DAYS PERFORMED BY: [place] [address] PATHOLOGIST IT ACCOUNT MANAGER BRANDEN WHATLEY M.D. [facility] Comment on above: Performed By: #### G LULS #### Point of Care testing , CT abdomen pelvis wo conon 0 08-30-2022 CT abdomen pelvis wo con [facility] [place] [address] [place], [place] [id number] CT Scan Report Signed Patient: Matt Kelly MR#: [id number] : 1950 Acct:[id number] Age/Sex: 71 / M ADM Date: 08/30/22 Loc: ER Room: Type: [facility] ER Attending Dr: Copies to: Ragini [...] Erik Larson M.D.08/30/2022 3:47 PM Dictation Location: [place] [address] Transcribed By: [facility] 08/30/22 1547 Dictated By: Erik Larson DO 08/30/22 1535 Signed By: 08/30/22 1547 Normal [facility] Complete Blood Count Auto Di ffon 08-30-2022 Basophils (Bld) [#/Vol] 0.1 10*3/uL Normal 0.0-0.2 [facility] Comment on above: Result Comment: PERF ORMED BY: [facility] [address] [place] [address] PATHOLOGIST IT ACCOUNT MANAGER BRANDEN WHATLEY M.D. Performed By: #### G [...] RBC (Bld) [#/Vol] 2.73 10*6/uL Low 3.90-5.60 [facility] Comment on above: Performed By: #### Young RICHARDSLS #### Point of Care testing , WBC (Bld) [#/Vol] 7.4 10*3/uL Normal 4.1-10.[address] [facility] Comment on above: Performed By: #### Young RICHARDSLS #### Point of Care testing , Comprehensive Metabolic Pane real 08-30-2022 Albumin [Mass/Vol] 2.9 g/dL Low 3.5-5.[address] [facility] Comment on above: Performed By: [...] Anion gap [Moles/Vol] 14.3 mmol/L Normal 6.0-15.0 [facility] Comment on above: Performed By: #### G LULS #### Point of Care testing , AST [Catalytic activity/Vol] 14 U/L Normal 13-39 [facility] Comment on above: Performed By: #### G SUSIELS #### Point of Care testing , Bilirubin [Mass/Vol] 0.3 mg/dL Normal 0.3-1.0 [facility] Comment on above: Performed By: #### G SUSIELS #### Point of Care testing , Calcium [Mass/Vol] 8.9 mg/dL Normal 8.6-10.[address] [facility] Comment on above: Performed By: #### G SUSIELS #### Point of Care testing , Chloride [Moles/Vol] 110 mmol/L High 98-107 [facility] Comment on above: Performed By: #### G SUSIELS #### Point of Care testing , CO2 [Moles/Vol] 17.6 mmol/L Low 21.0-31.0 [facility] Comment on above: Performed By: #### G SUSIELS #### Point of Care testing , Creatinine [Mass/Vol] 6.18 mg/dL High 0.70-1.30 [facility] Comment on above: Performed By: #### G LULS #### Point of Care testing , Creatinine Clr Calc Pharmacy 16.08 [facility] Comment on above: Result Comment: PERF ORMED BY: [facility] [address] [place] [address] PATHOLOGIST IT ACCOUNT MANAGER BRANDEN WHATLEY M.D. Performed By: #### G SUSIELS #### Point of Care testing , GFR/1.73 sq M.predicted MDRD (S/P/Bld) [Vol rate/Area] 9.045 mL/min/{1.73_m2} [facility] Comment on above: Performed By: #### G SUSIELS #### Point of Care testing , Globulin (S) [Mass/Vol] 3.5 g/dL Normal [facility] Comment on above: Performed By: #### G LULS #### Point of Care testing , Glucose [Mass/Vol] 105 mg/dL High 70-[address] [facility] Comment on above: Result Comment: [facility] Glucose Reference Range is dependent on time and content of last meal. Glucose of more than 200 mg/dL in a nonstressed, ambulatory subject supports the diagnosis of Diabetes Mellitus. ADA recommended reference range Performed By: #### G LULS #### Point of Care testing , Potassium [Moles/Vol] 4.9 mmol/L Normal 3.5-5.1 [facility] Comment on above: Performed By: #### G SUSIELS #### Point of Care testing , Protein [Mass/Vol] 6.4 g/dL Normal 6.4-8.[address] [facility] Comment on above: Performed By: #### G SUSIELS #### Point of Care testing , Sodium [Moles/Vol] 137 mmol/L Normal 136-[address] [facility] Comment on above: Performed By: [...] Performed By: #### F E and TIBC, [id number], ODALIS #### [facility] [address] Bacteria,Urine 2+ High None Seen [facility] Comment on above: Order Comment: Name Collection Type:: Wooten Catheter Performed By: #### F E and TIBC, [id number], ODALIS #### [facility] [address] [place] [address] [place] Bilirubin,Urine Negative Normal Negative [facility] Comment on above: Order Comment: Name Collection Type:: Wooten Catheter Performed By: #### F E and TIBC, [id number], ODALIS #### [facility] [address] Color (U) Yellow Normal Yellow [facility] Comment on above: Order Comment: Name Collection Type:: Wooten Catheter Performed By: #### F E and TIBC, [id number], ODALIS #### [address] Glucose Ql (U) 100 mg/dL High Normal [facility] Comment on above: Order Comment: Name Collection Type:: Wooten Catheter Performed By: #### F E and TIBC, [id number], ODALIS #### [place] [address] [place] Hyaline Casts,Urine None Seen Normal 0-1 [facility] Comment on above: Order Comment: Name Collection Type:: Wooten Catheter Performed By: #### F E and TIBC, [id number], ODALIS #### [address] Ketones Ql (U) Negative Normal Negative [facility] Comment on above: Order Comment: Name Collection Type:: Wooten Catheter Performed By: #### F E and TIBC, [id number], ODALIS #### [address] Leukocyte esterase Test strip Ql (U) 4+ High Negative [facility] Comment on above: Order Comment: Name Collection Type:: Wooten Catheter Performed By: #### F E and TIBC, [id number], ODALIS #### [place] [address] [place] Nitrite,Urine Positive High Negative [facility] Comment on above: Order Comment: Name Collection Type:: Wooten Catheter Performed By: #### F E and TIBC, [id number], ODALIS #### [address] Occult Blood,Urine 3+ High Negative [facility] Comment on above: Order Comment: Name Collection Type:: Wooten Catheter Result Comment: PERF ORMED BY: [place] [address] PATHOLOGIST IT ACCOUNT MANAGER BRANDEN WHATLEY M.D. Performed By: #### F E and TIBC, [id number], ODALIS #### [address] Other Casts,Urine None Seen Normal None Seen [facility] Comment on above: Order Comment: Name Collection Type:: Wooten Catheter Performed By: #### F E and TIBC, [id number], ODALIS #### [address] pH (U) 6.0 [pH] Normal 5.0-9.0 [facility] Comment on above: Order Comment: Name Collection Type:: Wooten Catheter Performed By: #### F E and TIBC, [id number], ODALIS #### [address] Protein (U) [Mass/Vol] 100 mg/dL High Negative [facility] Comment on above: Order Comment: Name Collection Type:: Wooten Catheter Performed By: #### F E and TIBC, [id number], ODALIS #### [facility] [address] [place] [address] [place] RBC,Urine 3-4 Normal 0-4 [facility] Comment on above: Order Comment: Name Collection Type:: Wooten Catheter Performed By: #### F E and TIBC, [id number], ODALIS #### [place] [address] [place] Specificy [place],Urine 1.011 Normal 1.001-1.030 [facility] Comment on above: Order Comment: Name Collection Type:: Wooten Catheter Performed By: #### F E and TIBC, [id number], ODALIS #### [place] [address] Squamous Epithelial Cell,Urine 1-2 Normal 0-2 [facility] Comment on above: Order Comment: Name Collection Type:: Wooten Catheter Performed By: #### F E and TIBC, [id number], ODALIS #### [facility] [address] Urobilinogen,Urine Normal Normal Normal [facility] Comment on above: Order Comment: Name Collection Type:: Wooten Catheter Performed By: #### F E and TIBC, [id number], ODALIS #### [address] WBC,Urine Innumerable High 0-4 [facility] Comment on above: Order Comment: Name Collection Type:: Wooten Catheter Performed By: #### F E and TIBC, [id number], ODALIS #### [address] Yeast,Urine 2+ Critically abnormal None Seen [facility] Comment on above: Order Comment: Name Collection Type:: Wooten Catheter Result Comment: PERF ORMED BY: [place] [address] PATHOLOGIST IT ACCOUNT MANAGER BRANDEN WHATLEY M.D. Performed By: #### F E and TIBC, [id number], ODALIS #### [facility] [address] [place] [address] Glucose Poct Glucometerson 0 08-30-2022 Glucose [Mass/Vol] 148 mg/dL Normal [facility] Comment on above: Result Comment: [place] Glucose Reference Range is dependent on time and content of last meal. Glucose of more than 200 mg/dL in a nonstressed, ambulatory subject supports the diagnosis of Diabetes Mellitus. PERFORMED BY: [place] [address] PATHOLOGIST IT ACCOUNT MANAGER BRANDEN WHATLEY M.D. Performed By: #### G LULS #### Point of Care testing , Glucose [Mass/Vol] 100 mg/dL Normal [facility] Comment on above: Result Comment: [facility] Glucose Reference Range is dependent on time and content of last meal. Glucose of more than 200 mg/dL in a nonstressed, ambulatory subject supports the diagnosis of Diabetes Mellitus. PERFORMED BY: [place] [address] PATHOLOGIST IT ACCOUNT MANAGER BRANDEN WHATLEY M.D. Performed By: #### F E and TIBC, [id number], ODALIS #### [facility] [address] [place] [address] Urine Cultureon 08-30-2022 Bacteria identified Cx Nom (U) ORGANISM: Pseudomonas aeruginosa (O:PSEAER) [place] Count 30,000 Aerobic RONI Charge (NMIC56) ---- [...] RESISTANT TO ALL B-LACTAM DRUGS. PERFORMED BY: [place] [address] PATHOLOGIST IT ACCOUNT MANAGER BRANDEN WHATLEY M.D. [facility] Comment on above: Performed By: #### F E and TIBC, [id number], ODALIS #### [facility] [address] [place] [address] PRBC LEUKOREDUCEDon 04-06-20 23 PRBC LEUKOREDUCED Cross Match Result Compatible Unit Blood Type O Neg Unit Number [id number] Status Information Transfused Product ID Red Blood Cells Product Code [id number] [facility] Comment on above: Performed By: #### P OCGLUC #### [facility] [address] [place] [address] Dr. Dk Mahoney PRBC LEUKOREDUCED Cross Match Result Compatible Unit Blood Type O Neg Unit Number [id number] Status Information Transfused Product ID Red Blood Cells Product Code [id number] [facility] Comment on above: Performed By: #### P OCGLUC #### [facility] [address] [place] [address] Dr. Dk Mahoney CULTURE URINEon 07-09-2022 CULTURE [...] R F Levofloxacin >=8 R F Normal [facility] Comment on above: Performed By: #### P OCGLUC #### [facility] [address] [place] [address] Dr. Dk Mahoney PROTEIN ELECTROPHERESISon Albumin [Mass/Vol] 2.7 g/dL Critically low 2.9-4.4 [facility] Comment on above: Performed By: #### M G, CMP, PHOS #### [facility] [address] [place] [address] [address] Dk Mahoney Albumin/Globulin [Mass ratio] 0.9 {ratio} Normal 0.7-1.7 [facility] Comment on above: Performed By: #### M G, CMP, PHOS #### [facility] [address] [place] [address] Dr. Dk Mahoney Zohnn-2-Vthcwizs 0.2 g/dL Normal 0.0-0.4 [facility] Comment on above: Performed By: #### M G, CMP, PHOS #### [facility] [address] [place] [address] Dr. Dk Mahoney Hozpv-7-Icmnmoht 0.8 g/dL Normal 0.4-1.0 [facility] Comment on above: Performed By: #### M G, CMP, PHOS #### [facility] [address] [place] [address] Dr. Dk Mahoney Beta Globulin 1.0 g/dL Normal 0.7-1.3 [facility] Comment on above: Performed By: #### M G, CMP, PHOS #### [facility] [address] [place] [address] Dr. Dk Mahoney Gamma Globulin 1.1 g/dL Normal 0.4-1.8 [facility] Comment on above: Performed By: #### M G, CMP, PHOS #### [facility] [address] [place] [address] Dr. Dk Mahoney Globulin (S) [Mass/Vol] 3.1 g/dL Normal 2.2-3.9 [facility] Comment on above: Performed By: #### M G, CMP, PHOS #### [facility] [address] [place] [address] Dr. Dk Mahoney M-Primitivo Comment: Normal Not Observed [facility] Comment on above: Result Comment: SPE shows an asymmetrical gamma. Performed By: #### M G, CMP, PHOS #### [facility] [address] [place] [address] Dr. Dk Mahoney PDF . Normal [facility] Comment on above: Performed By: #### M G, CMP, PHOS #### [facility] [address] [address] [address] Dk Mahoney Please note: Comment Normal [facility] Comment on above: Result Comment: Prot ein electrophoresis scan will follow via computer, mail, or junior oracle dba delivery. Performed By: #### M G, CMP, PHOS #### [facility] [address] [place] [address] [address] Dk Mahoney Protein [Mass/Vol] 5.8 g/dL Critically low 6.0-8.5 [facility] Comment on above: Performed By: #### M G, CMP, PHOS #### [facility] [address] [address] [address] Dk Mahoney PROTEIN ELECTROPHERESIS URIN E RANDOMon 07-09-2022 Albumin, U 23.2 % Normal [facility] Comment on above: Performed By: #### M G, CMP, PHOS #### [facility] [address] [place] [address] Dr. Dk Mahoney Alpha-1 Globulin U 3.6 % Normal [facility] Comment on above: Performed By: #### M G, CMP, PHOS #### [facility] [address] [place] [address] Dr. Dk Mahoney Alpha-2 Glubulin U 19.7 % Normal [facility] Comment on above: Performed By: #### M G, CMP, PHOS #### [facility] [address] [place] [address] [address] Dk Mahoney Beta Globulin, U 31.4 % Normal [facility] Comment on above: Performed By: #### M G, CMP, PHOS #### [facility] [address] [place] [address] Dr. Dk Mahoney Gamma Globulin U 22.1 % Normal [facility] Comment on above: Performed By: #### M G, CMP, PHOS #### [facility] [address] [place] [address] [address] Dk Mahoney M-Primitivo, % Comment: Normal Not Observed [facility] Comment on above: Result Comment: UPE shows an asymmetrical beta. Performed By: #### M G, CMP, PHOS #### [facility] [address] [place] [address] Dr. Dk Mahoney PDF . Normal [facility] Comment on above: Performed By: #### M G, CMP, PHOS #### [facility] [address] [place] [address] Dr. Dk Mahoney Please note: Comment Normal [facility] Comment on above: Result Comment: Prot ein electrophoresis scan will follow via computer, mail, or junior oracle dba delivery. Performed By: #### M Young, CMP, PHOS #### [facility] [address] [place] [address] Dr. Dk Mahoney Protein (U) [Mass/Vol] 34.7 mg/dL Normal Not Estab. [facility] Comment on above: Performed By: #### M G, CMP, PHOS #### [facility] [address] [place] [address] Dr. Dk Mahoney CBC AUTO DIFFon 07-07-2022 BASO # 0.1 103/ul Normal 0.0-0.1 [facility] Comment on above: Performed By: #### M Young CMP, PHOS #### [facility] [address] [place] [address] Dr. Dk Mahoney Basophils/100 WBC (Bld) 0.9 % Normal 0.2-2.0 [facility] Comment on above: Performed By: #### M G, CMP, PHOS #### [facility] [address] [place] [address] Dr. Dk Mahoney EO # 0.2 103/ul Normal 0.0-0.7 [facility] Comment on above: Performed By: #### M G, CMP, PHOS #### [facility] [address] [place] [address] Dr. Dk Mahoney Eosinophils/100 WBC (Bld) 2.9 % Normal 0.9-7.0 [facility] Comment on above: Performed By: #### M G, CMP, PHOS #### [facility] [address] [place] [address] Dr. Dk Mahoney Erythrocyte distribution width (RBC) [Ratio] 15.0 % Normal 11.0-15.0 [facility] Comment on above: Performed By: #### M G, CMP, PHOS #### [facility] [address] [place] [address] Dr. Dk Mahoney Hematocrit (Bld) [Volume fraction] 24.4 % Critically low 42.0-54.0 [facility] Comment on above: Performed By: #### M G, CMP, PHOS #### [facility] [address] [place] [address] Dr. Dk Mahoney Hemoglobin (Bld) [Mass/Vol] 7.8 g/dL Critically low 14.0-18.0 [facility] Comment on above: Performed By: #### M G, CMP, PHOS #### [facility] [address] [place] [address] Dr. Dk Mahoney IG # 0.07 10e3/ul Critically high 0.00-0.03 [facility] Comment on above: Performed By: #### M G, CMP, PHOS #### [facility] [address] [place] [address] Dr. Dk Mahoney IG % 1.1 % Critically high 0.0-0.5 [facility] Comment on above: Performed By: #### M G, CMP, PHOS #### [facility] [address] [place] [address] Dr. Dk Mahoney LYMPH # 1.0 103/ul Critically low 1.2-3.8 [facility] Comment on above: Performed By: #### M G, CMP, PHOS #### [facility] [address] [place] [address] Dr. Dk Mahoney Lymphocytes/100 WBC (Bld) 15.4 % Critically low 20.5-60.0 [facility] Comment on above: Performed By: #### M G, CMP, PHOS #### [facility] [address] [place] [address] Dr. Dk Mahoney MANUAL DIFF REQ NO Normal [facility] Comment on above: Performed By: #### M Young, CMP, PHOS #### [facility] [address] [place] [address] Dr. Dk Mahoney MCH (RBC) [Entitic mass] 29.3 pg Normal 25.9-34.0 [facility] Comment on above: Performed By: #### M Young CMP, PHOS #### [facility] [address] [place] [address] Dr. Dk Mahoney MCHC (RBC) [Mass/Vol] 32.0 g/dL Normal 29.9-35.2 [facility] Comment on above: Performed By: #### M Young CMP, PHOS #### [facility] [address] [place] [address] Dr. Dk Mahoney MCV (RBC) [Entitic vol] 91.7 fL Normal 80.0-94.0 [facility] Comment on above: Performed By: #### M Young CMP, PHOS #### [facility] [address] [place] [address] Dr. Dk Mahoney MONO # 0.6 103/ul Normal 0.3-0.8 [facility] Comment on above: Performed By: #### M Young CMP, PHOS #### [facility] [address] [place] [address] Dr. Dk Mahoney Monocytes/100 WBC (Bld) 9.2 % Normal 1.7-12.0 [facility] Comment on above: Performed By: #### M G, CMP, PHOS #### [facility] [address] [place] [address] Dr. Dk Mahoney NEUT # 4.6 103/ul Normal 1.4-6.5 [facility] Comment on above: Performed By: #### M G, CMP, PHOS #### [facility] [address] [place] [address] Dr. Dk Mahoney Neutrophils/100 WBC (Bld) 70.5 % Normal 43.0-75.0 [facility] Comment on above: Performed By: #### M G, CMP, PHOS #### [facility] [address] [address] [address] Dk Mahoney Platelet mean volume (Bld) [Entitic vol] 10.1 fL Normal 9.5-13.5 [facility] Comment on above: Performed By: #### M Young, CMP, PHOS #### [facility] [address] [address] [address] Dk Mahoney PLT 172 103/ul Normal 150-450 [facility] Comment on above: Performed By: #### M G, CMP, PHOS #### [facility] [address] [place] [address] Dr. Dk Mahoney RBC 2.66 106/ul Critically low 4.70-6.10 [facility] Comment on above: Performed By: #### M Young, CMP, PHOS #### [facility] [address] [place] [address] Dr. Dk Mahoney WBC 6.5 103/ul Normal 4.0-11.0 [facility] Comment on above: Performed By: #### M Young, CMP, PHOS #### [facility] [address] [place] [address] Dr. Dk Mahoney MAGNESIUMon 07-07-2022 Magnesium [Mass/Vol] 1.4 mg/dL Critically low 1.8-2.4 [facility] Comment on above: Performed By: #### M Young CMP, PHOS #### [facility] [address] [place] [address] Dr. Dk Mahoney PHOSPHORUSon 07-07-2022 Phosphate [Mass/Vol] 5.9 mg/dL Critically high 2.6-4.7 [facility] Comment on above: Performed By: #### M Young, CMP, PHOS #### [facility] [address] [place] [address] Dr. Dk Mahoney POINT OF CARE GLUCOSEon 06-13 Glucose [Mass/Vol] 121 mg/dL Critically high 74-106 [facility] Comment on above: Performed By: #### Rosmery G, CMP, PHOS #### [facility] [address] [address] [address] Dk Mahoney PROF 14(COMP METB)on 023 Albumin [Mass/Vol] 2.4 g/dL Critically low 3.4-5.0 [facility] Comment on above: Performed By: #### M G, CMP, PHOS #### [facility] [address] [address] [address] Dk Mahoney Albumin/Globulin [Mass ratio] 0.6 {ratio} Normal [facility] Comment on above: Performed By: #### M G, CMP, PHOS #### [facility] [address] [address] [address] Dk Mahoney ALP [Catalytic activity/Vol] 128 U/L Critically high 46-116 [facility] Comment on above: Performed By: #### M G, CMP, PHOS #### [facility] [address] [address] [address] Dk Mahoney ALT [Catalytic activity/Vol] 49 U/L Normal 16-63 [facility] Comment on above: Performed By: #### M G, CMP, PHOS #### [facility] [address] [address] [address] Dk Mahoney Anion gap [Moles/Vol] 16.3 mmol/L Normal [facility] Comment on above: Performed By: #### M G, CMP, PHOS #### [facility] [address] [address] [address] Dk Mahoney AST [Catalytic activity/Vol] 17 U/L Normal 15-37 [facility] Comment on above: Performed By: #### M G, CMP, PHOS #### [facility] [address] [address] [address] Dk Mahoney Bilirubin [Mass/Vol] 0.3 mg/dL Normal 0.2-1.0 [facility] Comment on above: Performed By: #### M G, CMP, PHOS #### [facility] [address] [address] [address] Dk Mahoney Calcium [Mass/Vol] 9.2 mg/dL Normal 8.5-10.1 [facility] Comment on above: Performed By: #### M SHIREEN Vidal, PHOS #### [facility] [address] [place] [address] Dr. Dk Mahoney Chloride [Moles/Vol] 105 mmol/L Normal 98-107 [facility] Comment on above: Performed By: #### M Young CMP, PHOS #### [facility] [address] [place] [address] Dr. Dk Mahoney CO2 [Moles/Vol] 20.3 mmol/L Critically low 21.0-32.0 [facility] Comment on above: Performed By: #### M SHIREEN Vidal, PHOS #### [facility] [address] [place] [address] Dr. Dk Mahoney Creatinine [Mass/Vol] 5.59 mg/dL Critically high 0.70-1.30 [facility] Comment on above: Performed By: #### Rosmery Vidal CMP, PHOS #### [facility] [address] [place] [address] Dr. Dk Mahoney EGFR-AF TURKMEN 12 mL/min/1.73m2 Critically low >=60 [facility] Comment on above: Performed By: #### Rosmery iVdal CMP, PHOS #### [facility] [address] [place] [address] Dr. Dk Mahoney EGFR-NON AF TURKMEN 10 mL/min/1.73m2 Critically low >=60 [facility] Comment on above: Performed By: #### M Young CMP, PHOS #### [facility] [address] [place] [address] Dr. Dk Mahoney Globulin (S) [Mass/Vol] 3.7 g/dL Normal [facility] Comment on above: Performed By: #### M Young CMP, PHOS #### [facility] [address] [place] [address] Dr. Dk Mahoney Glucose [Mass/Vol] 191 mg/dL Critically high 74-106 [facility] Comment on above: Performed By: #### M Young CMP, PHOS #### [facility] [address] [place] [address] Dr. Dk Mahoney Potassium [Moles/Vol] 4.5 mmol/L Normal 3.5-5.1 [facility] Comment on above: Performed By: #### M G, CMP, PHOS #### [facility] [address] [place] [address] Dr. Dk Mahoney Protein [Mass/Vol] 6.1 g/dL Critically low 6.4-8.2 [facility] Comment on above: Performed By: #### M G, CMP, PHOS #### [facility] [address] [place] [address] Dr. Dk Mahoney Sodium [Moles/Vol] 137 mmol/L Normal 136-145 [facility] Comment on above: Performed By: #### M G, CMP, PHOS #### [facility] [address] [place] [address] Dr. Dk Mahoney Urea nitrogen [Mass/Vol] 83.0 mg/dL Critically high 7.0-18.0 [facility] Comment on above: Performed By: #### M G, CMP, PHOS #### [facility] [address] [place] [address] Dr. Dk Mahoney Urea nitrogen/Creatinine [Mass ratio] 14.8 mg/mg Normal [facility] Comment on above: Performed By: #### M G, CMP, PHOS #### [facility] [address] [place] [address] Dr. Dk Mahoney CBC AUTO DIFFon 07-06-2022 BASO # 0.1 103/ul Normal 0.0-0.1 [facility] Comment on above: Performed By: #### M G, CMP, PHOS #### [facility] [address] [place] [address] Dr. kD Mahoney Basophils/100 WBC (Bld) 0.9 % Normal 0.2-2.0 [facility] Comment on above: Performed By: #### M G, CMP, PHOS #### [facility] [address] [place] [address] Dr. Dk Mahoney EO # 0.2 103/ul Normal 0.0-0.7 [facility] Comment on above: Performed By: #### M G, CMP, PHOS #### [facility] [address] [address] [address] Dk Mahoney Eosinophils/100 WBC (Bld) 2.9 % Normal 0.9-7.0 [facility] Comment on above: Performed By: #### M G, CMP, PHOS #### [facility] [address] [place] [address] Dr. Dk Mahoney Erythrocyte distribution width (RBC) [Ratio] 15.0 % Normal 11.0-15.0 [facility] Comment on above: Performed By: #### M Young CMP, PHOS #### [facility] [address] [place] [address] Dr. Dk Mahoney Hematocrit (Bld) [Volume fraction] 24.2 % Critically low 42.0-54.0 [facility] Comment on above: Performed By: #### M Young CMP, PHOS #### [facility] [address] [place] [address] Dr. Dk Mahoney Hemoglobin (Bld) [Mass/Vol] 8.0 g/dL Critically low 14.0-18.0 [facility] Comment on above: Performed By: #### M Young CMP, PHOS #### [facility] [address] [place] [address] Dr. Dk Mahoney IG # 0.06 10e3/ul Critically high 0.00-0.03 [facility] Comment on above: Performed By: #### M G, CMP, PHOS #### [facility] [address] [place] [address] Dr. Dk Mahnoey IG % 0.9 % Critically high 0.0-0.5 [facility] Comment on above: Performed By: #### M G, CMP, PHOS #### [facility] [address] [place] [address] Dr. Dk Mahoney LYMPH # 1.0 103/ul Critically low 1.2-3.8 [facility] Comment on above: Performed By: #### M G, CMP, PHOS #### [facility] [address] [address] [address] Dk Mahoney Lymphocytes/100 WBC (Bld) 14.6 % Critically low 20.5-60.0 [facility] Comment on above: Performed By: #### M G, CMP, PHOS #### [facility] [address] [place] [address] Dr. Dk Mahoney MANUAL DIFF REQ NO Normal [facility] Comment on above: Performed By: #### M G, CMP, PHOS #### [facility] [address] [place] [address] Dr. Dk Mahoney MCH (RBC) [Entitic mass] 30.4 pg Normal 25.9-34.0 [facility] Comment on above: Performed By: #### M G, CMP, PHOS #### [facility] [address] [place] [address] Dr. Dk Mahoney MCHC (RBC) [Mass/Vol] 33.1 g/dL Normal 29.9-35.2 [facility] Comment on above: Performed By: #### M G, CMP, PHOS #### [facility] [address] [place] [address] Dr. Dk Mahoney MCV (RBC) [Entitic vol] 92.0 fL Normal 80.0-94.0 [facility] Comment on above: Performed By: #### M G, CMP, PHOS #### [facility] [address] [place] [address] Dr. Dk Mahoney MONO # 0.7 103/ul Normal 0.3-0.8 [facility] Comment on above: Performed By: #### M G, CMP, PHOS #### [facility] [address] [place] [address] Dr. Dk Mahoney Monocytes/100 WBC (Bld) 11.1 % Normal 1.7-12.0 [facility] Comment on above: Performed By: #### M G, CMP, PHOS #### [facility] [address] [place] [address] Dr. Dk Mahoney NEUT # 4.5 103/ul Normal 1.4-6.5 [facility] Comment on above: Performed By: #### M SHIREEN Vidal, PHOS #### [facility] [address] [address] [address] Dk Mahoney Neutrophils/100 WBC (Bld) 69.6 % Normal 43.0-75.0 [facility] Comment on above: Performed By: #### Rosmery Vidal CMP, PHOS #### [facility] [address] [place] [address] Dr. Dk Mahoney Platelet mean volume (Bld) [Entitic vol] 9.4 fL Critically low 9.5-13.5 [facility] Comment on above: Performed By: #### Rosmery Vidal CMP, PHOS #### [facility] [address] [place] [address] Dr. Dk Mahoney PLT 159 103/ul Normal 150-450 [facility] Comment on above: Performed By: #### M Young CMP, PHOS #### [facility] [address] [place] [address] Dr. Dk Mahoney RBC 2.63 106/ul Critically low 4.70-6.10 [facility] Comment on above: Performed By: #### Rosmery Vidal CMP, PHOS #### [facility] [address] [place] [address] Dr. Dk Mahoney WBC 6.5 103/ul Normal 4.0-11.0 [facility] Comment on above: Performed By: #### M Young CMP, PHOS #### [facility] [address] [place] [address] Dr. Dk Mahoney BASO # 0.0 103/ul Normal 0.0-0.1 [facility] Comment on above: Performed By: #### C BC #### [facility] [address] [place] [address] Dr. Dk Mahoney Basophils/100 WBC (Bld) 0.6 % Normal 0.2-2.0 [facility] Comment on above: Performed By: #### C BC #### [facility] [address] [address] [address] Dk Mahoney EO # 0.2 103/ul Normal 0.0-0.7 [facility] Comment on above: Performed By: #### C BC #### [facility] [address] [address] [address] Dk Mahoney Eosinophils/100 WBC (Bld) 3.2 % Normal 0.9-7.0 [facility] Comment on above: Performed By: #### C BC #### [facility] [address] [place] [address] Dr. Dk Mahoney Erythrocyte distribution width (RBC) [Ratio] 15.2 % Critically high 11.0-15.0 [facility] Comment on above: Performed By: #### C BC #### [facility] [address] [place] [address] Dr. Dk Mahoney Hematocrit (Bld) [Volume fraction] 21.4 % Critically low 42.0-54.0 [facility] Comment on above: Performed By: #### C BC #### [facility] [address] [place] [address] Dr. Dk Mahoney Hemoglobin (Bld) [Mass/Vol] 6.9 g/dL Critically low 14.0-18.0 [facility] Comment on above: Performed By: #### C BC #### [facility] [address] [place] [address] Dr. Dk Mahoney IG # 0.05 10e3/ul Critically high 0.00-0.03 [facility] Comment on above: Performed By: #### C BC #### [facility] [address] [place] [address] Dr. Dk Mahoney IG % 0.8 % Critically high 0.0-0.5 [facility] Comment on above: Performed By: #### C BC #### [facility] [address] [place] [address] Dr. Dk Mahoney LYMPH # 0.9 103/ul Critically low 1.2-3.8 [facility] Comment on above: Performed By: #### C BC #### [facility] [address] [address] [address] Dk Mahoney Lymphocytes/100 WBC (Bld) 13.8 % Critically low 20.5-60.0 [facility] Comment on above: Performed By: #### C BC #### [facility] [address] [address] [address] kD Mahoney MANUAL DIFF REQ NO Normal [facility] Comment on above: Performed By: #### C BC #### [facility] [address] [place] [address] Dr. Dk Mahoney MCH (RBC) [Entitic mass] 29.9 pg Normal 25.9-34.0 [facility] Comment on above: Performed By: #### C BC #### [facility] [address] [place] [address] Dr. Dk Mahoney MCHC (RBC) [Mass/Vol] 32.2 g/dL Normal 29.9-35.2 [facility] Comment on above: Performed By: #### C BC #### [facility] [address] [place] [address] Dr. Dk Mahoney MCV (RBC) [Entitic vol] 92.6 fL Normal 80.0-94.0 [facility] Comment on above: Performed By: #### C BC #### [facility] [address] [place] [address] Dr. Dk Mahoney MONO # 0.8 103/ul Normal 0.3-0.8 [facility] Comment on above: Performed By: #### C BC #### [facility] [address] [place] [address] Dr. Dk Mhaoney Monocytes/100 WBC (Bld) 11.4 % Normal 1.7-12.0 [facility] Comment on above: Performed By: #### C BC #### [facility] [address] [place] [address] Dr. Dk Mahoney NEUT # 4.6 103/ul Normal 1.4-6.5 [facility] Comment on above: Performed By: #### C BC #### [facility] [address] [address] [address] Dk Mahoney Neutrophils/100 WBC (Bld) 70.2 % Normal 43.0-75.0 [facility] Comment on above: Performed By: #### C BC #### [facility] [address] [place] [address] Dr. Dk Mahoney Platelet mean volume (Bld) [Entitic vol] 9.6 fL Normal 9.5-13.5 [facility] Comment on above: Performed By: #### C BC #### [facility] [address] [place] [address] Dr. Dk Mahoney PLT 163 103/ul Normal 150-450 [facility] Comment on above: Performed By: #### C BC #### [facility] [address] [place] [address] Dr. Dk Mahoney RBC 2.31 106/ul Critically low 4.70-6.10 [facility] Comment on above: Performed By: #### C BC #### [facility] [address] [place] [address] Dr. Dk Mahoney WBC 6.6 103/ul Normal 4.0-11.0 [facility] Comment on above: Performed By: #### C BC #### [facility] [address] [place] [address] Dr. Dk Mahoney FERRITINon 07-06-2022 Ferritin [Mass/Vol] 538.0 ng/mL Critically high 26.0-388.0 [facility] Comment on above: Performed By: #### M G, CMP, PHOS #### [facility] [address] [place] [address] Dr. Dk Mahoney IRON AND TIBCon 07-06-2022 % SATURATION 29.7 % Normal [facility] Comment on above: Performed By: #### M G, CMP, PHOS #### [facility] [address] [place] [address] Dr. Dk Mahoney Iron [Mass/Vol] 51.0 ug/dL Critically low 65.0-175.0 [facility] Comment on above: Performed By: #### M G, CMP, PHOS #### [facility] [address] [address] [address] Dk Mahoney TIBC DIRECT 172.0 ug/dL Critically low 250.0-450.0 [facility] Comment on above: Performed By: #### M SHIREEN Vidal, PHOS #### [facility] [address] [address] [address] Dk Mahoney LDHon 07-06-2022 LDH 126 U/L Normal 85-227 [facility] Comment on above: Performed By: #### Rosmery Vidal CMP, PHOS #### [facility] [address] [address] [address] Dk Mahoney MAGNESIUMon 07-06-2022 Magnesium [Mass/Vol] 1.5 mg/dL Critically low 1.8-2.4 [facility] Comment on above: Performed By: #### Rosmery Vidal CMP, PHOS #### [facility] [address] [place] [address] Dr. Dk Mahoney PHOSPHORUSon 07-06-2022 Phosphate [Mass/Vol] 7.8 mg/dL Critically high 2.6-4.7 [facility] Comment on above: Performed By: #### Rosmery Vidal CMP, PHOS #### [facility] [address] [place] [address] Dr. Dk Mahoney POINT OF CARE GLUCOSEon 06-13 Glucose [Mass/Vol] 149 mg/dL Critically high 74-106 [facility] Comment on above: Performed By: #### Rosmery Vidal CMP, PHOS #### [facility] [address] [place] [address] Dr. Dk Mahoney Glucose [Mass/Vol] 145 mg/dL Critically high 74-106 [facility] Comment on above: Performed By: #### Rosmery Vidal CMP, PHOS #### [facility] [address] [place] [address] Dr. Dk Mahoney Glucose [Mass/Vol] 112 mg/dL Critically high 74-106 [facility] Comment on above: Performed By: #### Rosmery Vidal CMP, PHOS #### [facility] [address] [address] [address] Dk Mahoney Glucose [Mass/Vol] 133 mg/dL Critically high 74-106 [facility] Comment on above: Performed By: #### M G, CMP, PHOS #### [facility] [address] [address] [address] Dk Mahoney Glucose [Mass/Vol] 173 mg/dL Critically high 74-106 [facility] Comment on above: Performed By: #### P OCGLUC #### [facility] [address] [address] [address] Dk Mahoney PROF 14(COMP METB)on 023 Albumin [Mass/Vol] 2.4 g/dL Critically low 3.4-5.0 [facility] Comment on above: Performed By: #### M G, CMP, PHOS #### [facility] [address] [place] [address] Dr. Dk Mahoney Albumin/Globulin [Mass ratio] 0.6 {ratio} Normal [facility] Comment on above: Performed By: #### M G, CMP, PHOS #### [facility] [address] [address] [address] Dk Mahoney ALP [Catalytic activity/Vol] 133 U/L Critically high 46-116 [facility] Comment on above: Performed By: #### M G, CMP, PHOS #### [facility] [address] [place] [address] Dr. Dk Mahoney ALT [Catalytic activity/Vol] 58 U/L Normal 16-63 [facility] Comment on above: Performed By: #### M G, CMP, PHOS #### [facility] [address] [address] [address] Dk Mahoney Anion gap [Moles/Vol] 16.8 mmol/L Normal [facility] Comment on above: Performed By: #### M G, CMP, PHOS #### [facility] [address] [address] [address] Dk Mahoney AST [Catalytic activity/Vol] 20 U/L Normal 15-37 [facility] Comment on above: Performed By: #### M G, CMP, PHOS #### [facility] [address] [place] [address] Dr. Dk Mahoney Bilirubin [Mass/Vol] 0.2 mg/dL Normal 0.2-1.0 [facility] Comment on above: Performed By: #### M G, CMP, PHOS #### [facility] [address] [place] [address] Dr. Dk Mahoney Calcium [Mass/Vol] 9.0 mg/dL Normal 8.5-10.1 [facility] Comment on above: Performed By: #### M G, CMP, PHOS #### [facility] [address] [place] [address] Dr. Dk Mahoney Chloride [Moles/Vol] 107 mmol/L Normal 98-107 [facility] Comment on above: Performed By: #### M G, CMP, PHOS #### [facility] [address] [place] [address] Dr. Dk Mahoney CO2 [Moles/Vol] 18.2 mmol/L Critically low 21.0-32.0 [facility] Comment on above: Performed By: #### M G, CMP, PHOS #### [facility] [address] [place] [address] Dr. Dk Mahoney Creatinine [Mass/Vol] 5.80 mg/dL Critically high 0.70-1.30 [facility] Comment on above: Performed By: #### M G, CMP, PHOS #### [facility] [address] [place] [address] Dr. Dk Mahoney EGFR-AF TURKMEN 12 mL/min/1.73m2 Critically low >=60 [facility] Comment on above: Performed By: #### M G, CMP, PHOS #### [facility] [address] [place] [address] Dr. Dk Mahoney EGFR-NON AF TURKMEN 10 mL/min/1.73m2 Critically low >=60 [facility] Comment on above: Performed By: #### M G, CMP, PHOS #### [facility] [address] [place] [address] Dr. Dk Mahoney Globulin (S) [Mass/Vol] 3.9 g/dL Normal [facility] Comment on above: Performed By: #### M G, CMP, PHOS #### [facility] [address] [address] [address] Dk Mahoney Glucose [Mass/Vol] 108 mg/dL Critically high 74-106 [facility] Comment on above: Performed By: #### M G, CMP, PHOS #### [facility] [address] [address] [address] Dk Mahoney Potassium [Moles/Vol] 5.0 mmol/L Normal 3.5-5.1 [facility] Comment on above: Performed By: #### M G, CMP, PHOS #### [facility] [address] [address] [address] Dk Mahoney Protein [Mass/Vol] 6.3 g/dL Critically low 6.4-8.2 [facility] Comment on above: Performed By: #### M G, CMP, PHOS #### [facility] [address] [address] [address] Dk Mahoney Sodium [Moles/Vol] 137 mmol/L Normal 136-145 [facility] Comment on above: Performed By: #### M G, CMP, PHOS #### [facility] [address] [address] [address] Dk Mahoney Urea nitrogen [Mass/Vol] 83.0 mg/dL Critically high 7.0-18.0 [facility] Comment on above: Performed By: #### M G, CMP, PHOS #### [facility] [address] [address] [address] Dk Mahoney Urea nitrogen/Creatinine [Mass ratio] 14.3 mg/mg Normal [facility] Comment on above: Performed By: #### M G, CMP, PHOS #### [facility] [address] [address] [address] Dk Mahoney RETICULOCYTEon 07-06-2022 RETIC 4.20 % Critically high 0.60-3.10 [facility] Comment on above: Performed By: #### M G, CMP, PHOS #### [facility] [address] [place] [address] Dr. Dk Mahonye TYPE AND SCREENon 07-06-2022 TYPE AND SCREEN Negative Normal [facility] Comment on above: Performed By: #### P OCGLUC #### [facility] [address] [place] [address] Dr. Dk Mahoney URIC ACID SERUMon 07-06-2022 Urate [Mass/Vol] 6.1 mg/dL Normal 3.5-7.2 [facility] Comment on above: Performed By: #### M Young CMP, PHOS #### [facility] [address] [place] [address] Dr. Dk Mahoney VIT B12 AND FOLATEon 023 Cobalamin (Vitamin B12) [Mass/Vol] 686.0 pg/mL Normal 193.0-986.0 [facility] Comment on above: Performed By: #### P OCGLUC #### [facility] [address] [place] [address] Dr. Dk Mahoney FOLATE 15.50 ng/mL Normal 8.60-58.90 [facility] Comment on above: Performed By: #### P OCGLUC #### [facility] [address] [place] [address] Dr. Dk Mahoney CBC AUTO DIFFon 07-05-2022 BASO # 0.1 103/ul Normal 0.0-0.1 [facility] Comment on above: Performed By: #### M G, CMP, PHOS #### [facility] [address] [place] [address] Dr. Dk Mahoney Basophils/100 WBC (Bld) 0.7 % Normal 0.2-2.0 [facility] Comment on above: Performed By: #### M G, CMP, PHOS #### [facility] [address] [place] [address] Dr. Dk Mahoney EO # 0.2 103/ul Normal 0.0-0.7 [facility] Comment on above: Performed By: #### M G, CMP, PHOS #### [facility] [address] [place] [address] Dr. Dk Mahoney Eosinophils/100 WBC (Bld) 3.1 % Normal 0.9-7.0 [facility] Comment on above: Performed By: #### M Young CMP, PHOS #### [facility] [address] [place] [address] Dr. Dk Mahoney Erythrocyte distribution width (RBC) [Ratio] 15.4 % Critically high 11.0-15.0 [facility] Comment on above: Performed By: #### M Young CMP, PHOS #### [facility] [address] [place] [address] Dr. Dk Mahoney Hematocrit (Bld) [Volume fraction] 23.9 % Critically low 42.0-54.0 [facility] Comment on above: Performed By: #### M Young CMP, PHOS #### [facility] [address] [place] [address] Dr. Dk Mahoney Hemoglobin (Bld) [Mass/Vol] 7.7 g/dL Critically low 14.0-18.0 [facility] Comment on above: Performed By: #### M SHIREEN Vidal, PHOS #### [facility] [address] [place] [address] Dr. Dk Mahoney IG # 0.05 10e3/ul Critically high 0.00-0.03 [facility] Comment on above: Performed By: #### M Young CMP, PHOS #### [facility] [address] [place] [address] Dr. Dk Mahoney IG % 0.7 % Critically high 0.0-0.5 [facility] Comment on above: Performed By: #### M Young CMP, PHOS #### [facility] [address] [place] [address] Dr. Dk Mahoney LYMPH # 1.0 103/ul Critically low 1.2-3.8 [facility] Comment on above: Performed By: #### M Young, CMP, PHOS #### [facility] [address] [place] [address] Dr. Dk Mahoney Lymphocytes/100 WBC (Bld) 12.8 % Critically low 20.5-60.0 [facility] Comment on above: Performed By: #### M G, CMP, PHOS #### [facility] [address] [address] [address] Dk Mahoney MANUAL DIFF REQ NO Normal [facility] Comment on above: Performed By: #### M G, CMP, PHOS #### [facility] [address] [address] [address] Dk Mahoney MCH (RBC) [Entitic mass] 30.0 pg Normal 25.9-34.0 [facility] Comment on above: Performed By: #### M G, CMP, PHOS #### [facility] [address] [place] [address] Dr. Dk Mahoney MCHC (RBC) [Mass/Vol] 32.2 g/dL Normal 29.9-35.2 [facility] Comment on above: Performed By: #### M G, CMP, PHOS #### [facility] [address] [address] [address] Dk Mahoney MCV (RBC) [Entitic vol] 93.0 fL Normal 80.0-94.0 [facility] Comment on above: Performed By: #### M G, CMP, PHOS #### [facility] [address] [place] [address] Dr. Dk Mahoney MONO # 0.8 103/ul Normal 0.3-0.8 [facility] Comment on above: Performed By: #### M G, CMP, PHOS #### [facility] [address] [address] [address] Dk Mahoney Monocytes/100 WBC (Bld) 10.2 % Normal 1.7-12.0 [facility] Comment on above: Performed By: #### M G, CMP, PHOS #### [facility] [address] [address] [address] Dk Mahoney NEUT # 5.6 103/ul Normal 1.4-6.5 [facility] Comment on above: Performed By: #### M G, CMP, PHOS #### [facility] [address] [address] [address] Dk Mahoney Neutrophils/100 WBC (Bld) 72.5 % Normal 43.0-75.0 [facility] Comment on above: Performed By: #### M G, CMP, PHOS #### [facility] [address] [address] [address] Dk Mahoney Platelet mean volume (Bld) [Entitic vol] 9.8 fL Normal 9.5-13.5 [facility] Comment on above: Performed By: #### M G, CMP, PHOS #### [facility] [address] [place] [address] Dr. Dk Mahoney PLT 203 103/ul Normal 150-450 [facility] Comment on above: Performed By: #### M G, CMP, PHOS #### [facility] [address] [address] [address] Dk Mahoney RBC 2.57 106/ul Critically low 4.70-6.10 [facility] Comment on above: Performed By: #### M G, CMP, PHOS #### [facility] [address] [place] [address] Dr. Dk Mahoney WBC 7.7 103/ul Normal 4.0-11.0 [facility] Comment on above: Performed By: #### M G, CMP, PHOS #### [facility] [address] [place] [address] ABD/PELVIS WO CONon [...] MARQUES AMAYA Date: 2022-07-05 18:21 Normal [facility] Covid-19 PCR ([facility])on 06-13 SARS-CoV-2 (COVID-19) RNA JASON+probe Ql (Unsp spec) Not detected Normal NOT DETECTED [facility] Comment on above: Result Comment: When [...] for this test is supported by the [place] of [employer] and Human Service's declaration that [...] used). Performed By: #### C BC #### [facility] [address] [place] [address] Dr. Dk Mahoney ER URINE PROFILEon 3 Bilirubin Ql (U) Negative Normal NEGATIVE [facility] Comment on above: Performed By: #### M Young CMP, PHOS #### [facility] [address] [place] [address] Dr. Dk Mahoney Clarity (U) CLEAR Normal CLEAR [facility] Comment on above: Performed By: #### M Young CMP, PHOS #### [facility] [address] [place] [address] Dr. Dk Mahoney Color (U) YELLOW Normal YELLOW [facility] Comment on above: Performed By: #### M G CMP, PHOS #### [facility] [address] [place] [address] Dr. Dk Mahoney ERUAHD A micrscopic examination will be performed if indicated. Normal [facility] Comment on above: Performed By: #### M G CMP, PHOS #### [facility] [address] [place] [address] Dr. Dk Mahoney Glucose Ql (U) 100 mg/dl Abnormal NEGATIVE [facility] Comment on above: Performed By: #### M G, CMP, PHOS #### [facility] [address] [place] [address] Dr. Dk Mahoney Hemoglobin Ql (U) MODERATE Abnormal NEGATIVE [facility] Comment on above: Performed By: #### M G, CMP, PHOS #### [facility] [address] [place] [address] Dr. Dk Mahoney Ketones Ql (U) Negative Normal NEGATIVE [facility] Comment on above: Performed By: #### M G, CMP, PHOS #### [facility] [address] [place] [address] Dr. Dk Mahoney LEUKOCYTES LARGE Abnormal NEGATIVE [facility] Comment on above: Performed By: #### M G, CMP, PHOS #### [facility] [address] [place] [address] Dr. Dk Mahoney Nitrite Ql (U) Negative Normal NEGATIVE [facility] Comment on above: Performed By: #### M G, CMP, PHOS #### [facility] [address] [place] [address] Dr. Dk Mahoney pH (U) 7.0 [pH] Normal 5-9 [facility] Comment on above: Performed By: #### M G, CMP, PHOS #### [facility] [address] [place] [address] Dr. Dk Mahoney Protein (U) [Mass/Vol] 30 mg/dL Abnormal NEGATIVE/ TRACE [facility] Comment on above: Performed By: #### M G, CMP, PHOS #### [facility] [address] [place] [address] Dr. Dk Mahoney SPEC GRAVITY 1.010 Normal 1.005-<=1.02 5 [facility] Comment on above: Performed By: #### M G, CMP, PHOS #### [facility] [address] [place] [address] Dr. Dk Mahoney UR MICRO IND INDICATED Normal [facility] Comment on above: Performed By: #### M G, CMP, PHOS #### [facility] [address] [place] [address] Dr. Dk Mahoney Urobilinogen Qn (U) 0.2 {Ramiro'U}/dL Normal 0.2 - 1. 0 [facility] Comment on above: Performed By: #### M G, CMP, PHOS #### [facility] [address] [address] [address] Dk Mahoney PROF 14(COMP METB)on 023 Albumin [Mass/Vol] 2.7 g/dL Critically low 3.4-5.0 [facility] Comment on above: Performed By: #### C BC #### [facility] [address] [place] [address] Dr. Dk Mahoney Albumin/Globulin [Mass ratio] 0.6 {ratio} Normal [facility] Comment on above: Performed By: #### C BC #### [facility] [address] [place] [address] Dr. Dk Mahoney ALP [Catalytic activity/Vol] 148 U/L Critically high 46-116 [facility] Comment on above: Performed By: #### C BC #### [facility] [address] [place] [address] Dr. Dk Mahoney ALT [Catalytic activity/Vol] 70 U/L Critically high 16-63 [facility] Comment on above: Performed By: #### C BC #### [facility] [address] [place] [address] Dr. Dk Mahoney Anion gap [Moles/Vol] 16.7 mmol/L Normal [facility] Comment on above: Performed By: #### C BC #### [facility] [address] [place] [address] Dr. Dk Mahoney AST [Catalytic activity/Vol] 26 U/L Normal 15-37 [facility] Comment on above: Performed By: #### C BC #### [facility] [address] [place] [address] Dr. Dk Mahoney Bilirubin [Mass/Vol] 0.4 mg/dL Normal 0.2-1.0 [facility] Comment on above: Performed By: #### C BC #### [facility] [address] [place] [address] Dr. Dk Mahoney Calcium [Mass/Vol] 9.2 mg/dL Normal 8.5-10.1 [facility] Comment on above: Performed By: #### C BC #### [facility] [address] [address] [address] Dk Mahoney Chloride [Moles/Vol] 105 mmol/L Normal 98-107 [facility] Comment on above: Performed By: #### C BC #### [facility] [address] [address] [address] Dk Mahoney CO2 [Moles/Vol] 18.1 mmol/L Critically low 21.0-32.0 [facility] Comment on above: Performed By: #### C BC #### [facility] [address] [address] [address] Dk Mahoney Creatinine [Mass/Vol] 5.81 mg/dL Critically high 0.70-1.30 [facility] Comment on above: Performed By: #### C BC #### [facility] [address] [place] [address] Dr. Dk Mahoney EGFR-AF TURKMEN 12 mL/min/1.73m2 Critically low >=60 [facility] Comment on above: Performed By: #### C BC #### [facility] [address] [place] [address] Dr. Dk Mahoney EGFR-NON AF TURKMEN 10 mL/min/1.73m2 Critically low >=60 [facility] Comment on above: Performed By: #### C BC #### [facility] [address] [place] [address] Dr. Dk Mahoney Globulin (S) [Mass/Vol] 4.3 g/dL Normal [facility] Comment on above: Performed By: #### C BC #### [facility] [address] [address] [address] Dk Mahoney Glucose [Mass/Vol] 138 mg/dL Critically high 74-106 [facility] Comment on above: Performed By: #### C BC #### [facility] [address] [address] [address] Dk Mahoney Potassium [Moles/Vol] 4.8 mmol/L Normal 3.5-5.1 [facility] Comment on above: Performed By: #### C BC #### [facility] [address] [address] [address] Dk Mahoney Protein [Mass/Vol] 7.0 g/dL Normal 6.4-8.2 [facility] Comment on above: Performed By: #### C BC #### [facility] [address] [address] [address] Dk Mahoney Sodium [Moles/Vol] 135 mmol/L Critically low 136-145 [facility] Comment on above: Performed By: #### C BC #### [facility] [address] [address] [address] Dk Mahoney Urea nitrogen [Mass/Vol] 83.0 mg/dL Critically high 7.0-18.0 [facility] Comment on above: Performed By: #### C BC #### [facility] [address] [address] [address] Dk Mahoney Urea nitrogen/Creatinine [Mass ratio] 14.3 mg/mg Normal [facility] Comment on above: Performed By: #### C BC #### [facility] [address] [address] [address] Dk Mahoney TROPONIN, HIGH SENSITIVITYon 07-05-2022 HSTROP 21.4 pg/mL Normal 4.0-76.1 [facility] Comment on above: Result Comment: CUT- OFF POINTS HAVE BEEN ESTABLISHED BASED ON THE FOURTH UNIVERSAL DEFINITIONS OF MYOCARDIAL INFARCTION. THE UPPER REFERENCE LIMIT (URL) OF TROPONIN, DEFINED THE 99TH PERCENTILE OF cTnI DISTRIBUTION IN A REFERENCE POPULATION, HAS BEEN CONFIRMED THE DECISION THRESHOLD FOR AR DIAGNOSIS. Performed By: #### C BC #### [facility] [address] [address] [address] Dk Mahoney URINE MICROSCOPIC ONLYon BACTERIA MODERATE Abnormal NONE SEEN [facility] Comment on above: Performed By: #### M G, CMP, PHOS #### [facility] [address] [id number] [address] Dk Mahoney Bacteria identified Cx Nom (U) INDICATED Normal [facility] Comment on above: Performed By: #### M G, CMP, PHOS #### [facility] [address] [place] [address] Dr. Dk Mahoney CAST NONE SEEN Normal NONE SEEN [facility] Comment on above: Performed By: #### M G, CMP, PHOS #### [facility] [address] [place] [address] Dr. Dk Mahoney Crystals LM Nom (Urine sed) NONE SEEN Normal NONE SEEN [facility] Comment on above: Performed By: #### M G, CMP, PHOS #### [facility] [address] [place] [address] Dr. Dk Mahoney Epithelial cells LM Ql (Urine sed) FEW Abnormal NONE SEEN /RARE [facility] Comment on above: Performed By: #### M G, CMP, PHOS #### [facility] [address] [place] [address] Dr. Dk Mahoney MUCOUS NONE SEEN Normal NONE SEEN [facility] Comment on above: Performed By: #### M G, CMP, PHOS #### [facility] [address] [place] [address] Dr. Dk Mahoney RBC 10-20 Abnormal 0-2 [facility] Comment on above: Performed By: #### M G, CMP, PHOS #### [facility] [address] [place] [address] Dr. Dk Mahoney WBC 75-100 Abnormal NONE SEEN [facility] Comment on above: Performed By: #### M G, CMP, PHOS #### [facility] [address] [place] [address] Dr. Dk Mahoney YEAST PRESENT Abnormal NONE SEEN [facility] Comment on above: Performed By: #### M G, CMP, PHOS #### [facility] [address] [place] [address] Dr. Dk Mahoney PRBC LEUKOREDUCEDon 05-11-19 23 PRBC LEUKOREDUCED Cross Match Result Compatible Unit Blood Type O Neg Unit Number [id number] Status Information Transfused Product ID Red Blood Cells Product Code [id number] Normal [facility] Comment on above: Performed By: #### P RBC #### [facility] [address] [place] [address] Dr. Dk Mahoney ABO AND RH TYPEon 05-04-2022 ABO and Rh group Nom (Bld) ABO Rh Typing O Rh Negative Normal [facility] Comment on above: Performed By: #### A NOE TNS #### [facility] [address] [place] [address] Dr. Dk Mahoney BNPon 05-04-2022 Natriuretic peptide B (Bld) [Mass/Vol] 00583.0 pg/mL Critically high <=900.0 [facility] Comment on above: Performed By: #### M G, CMP, PHOS #### [facility] [address] [place] [address] Dr. Dk Mahoney CBC AUTO DIFFon 05-04-2022 BASO # 0.1 103/ul Normal 0.0-0.1 [facility] Comment on above: Performed By: #### M G, CMP, PHOS #### [facility] [address] [place] [address] Dr. Dk Mahoney Basophils/100 WBC (Bld) 0.7 % Normal 0.2-2.0 [facility] Comment on above: Performed By: #### M G, CMP, PHOS #### [facility] [address] [place] [address] Dr. Dk Mahoney EO # 0.3 103/ul Normal 0.0-0.7 [facility] Comment on above: Performed By: #### M G, CMP, PHOS #### [facility] [address] [place] [address] Dr. Dk Mahoney Eosinophils/100 WBC (Bld) 4.4 % Normal 0.9-7.0 [facility] Comment on above: Performed By: #### M G, CMP, PHOS #### [facility] [address] [place] [address] Dr. Dk Mahoney Erythrocyte distribution width (RBC) [Ratio] 15.4 % Critically high 11.0-15.0 [facility] Comment on above: Performed By: #### M G, CMP, PHOS #### [facility] [address] [place] [address] Dr. Dk Mahoney Hematocrit (Bld) [Volume fraction] 21.6 % Critically low 42.0-54.0 [facility] Comment on above: Performed By: #### M Young CMP, PHOS #### [facility] [address] [place] [address] Dr. Dk Mahoney Hemoglobin (Bld) [Mass/Vol] 7.4 g/dL Critically low 14.0-18.0 [facility] Comment on above: Performed By: #### M G, CMP, PHOS #### [facility] [address] [place] [address] Dr. Dk Mahoney IG # 0.03 10e3/ul Normal 0.00-0.03 [facility] Comment on above: Performed By: #### M Young, CMP, PHOS #### [facility] [address] [place] [address] Dr. Dk Mahoney IG % 0.4 % Normal 0.0-0.5 [facility] Comment on above: Performed By: #### M Young, CMP, PHOS #### [facility] [address] [place] [address] Dr. Dk Mahoney LYMPH # 0.9 103/ul Critically low 1.2-3.8 [facility] Comment on above: Performed By: #### M Young CMP, PHOS #### [facility] [address] [place] [address] Dr. Dk Mahoney Lymphocytes/100 WBC (Bld) 13.8 % Critically low 20.5-60.0 [facility] Comment on above: Performed By: #### M G, CMP, PHOS #### [facility] [address] [place] [address] Dr. Dk Mahoney MANUAL DIFF REQ NO Normal [facility] Comment on above: Performed By: #### M G, CMP, PHOS #### [facility] [address] [place] [address] Dr. Dk Mahoney MCH (RBC) [Entitic mass] 28.4 pg Normal 25.9-34.0 [facility] Comment on above: Performed By: #### M G, CMP, PHOS #### [facility] [address] [place] [address] Dr. Dk Mahoney MCHC (RBC) [Mass/Vol] 34.3 g/dL Normal 29.9-35.2 [facility] Comment on above: Performed By: #### M G, CMP, PHOS #### [facility] [address] [place] [address] Dr. Dk Mahoney MCV (RBC) [Entitic vol] 82.8 fL Normal 80.0-94.0 [facility] Comment on above: Performed By: #### M G, CMP, PHOS #### [facility] [address] [place] [address] Dr. Dk Mahoney MONO # 0.6 103/ul Normal 0.3-0.8 [facility] Comment on above: Performed By: #### M G, CMP, PHOS #### [facility] [address] [place] [address] Dr. Dk Mahoney Monocytes/100 WBC (Bld) 8.8 % Normal 1.7-12.0 [facility] Comment on above: Performed By: #### M G, CMP, PHOS #### [facility] [address] [place] [address] Dr. Dk Mahoney NEUT # 4.9 103/ul Normal 1.4-6.5 [facility] Comment on above: Performed By: #### M G, CMP, PHOS #### [facility] [address] [place] [address] Dr. Dk Mahoney Neutrophils/100 WBC (Bld) 71.9 % Normal 43.0-75.0 [facility] Comment on above: Performed By: #### M G, CMP, PHOS #### [facility] [address] [place] [address] Dr. Dk Mahoney Platelet mean volume (Bld) [Entitic vol] 9.3 fL Critically low 9.5-13.5 [facility] Comment on above: Performed By: #### M G, CMP, PHOS #### [facility] [address] [address] [address] Dk Mahoney PLT 178 103/ul Normal 150-450 [facility] Comment on above: Performed By: #### M SHIREEN Vidal, PHOS #### [facility] [address] [address] [address] Dk Mahoney RBC 2.61 106/ul Critically low 4.70-6.10 [facility] Comment on above: Performed By: #### M SHIREEN Vidal, PHOS #### [facility] [address] [address] [address] Dk Mahoney WBC 6.8 103/ul Normal 4.0-11.0 [facility] Comment on above: Performed By: #### M SHIREEN Vidal PHOS #### [facility] [address] [place] [address] Dr. Dk Mahoney Covid-19 PCR ([facility])on 04-15 SARS-CoV-2 (COVID-19) RNA JASON+probe Ql (Unsp spec) Not detected Normal NOT DETECTED [facility] Comment on above: Result Comment: When [...] for this test is supported by the [place] of [employer] and Human Service's declaration that [...] used). Performed By: #### P OCGLUC #### [facility] [address] [place] [address] Dr. Dk Mahoney PROF CHEM 8 (BAS METB)on Anion gap [Moles/Vol] 14.7 mmol/L Normal [facility] Comment on above: Performed By: #### M Young CMP, PHOS #### [facility] [address] [address] [address] Dk Mahoney Calcium [Mass/Vol] 9.3 mg/dL Normal 8.5-10.1 [facility] Comment on above: Performed By: #### M Young, CMP, PHOS #### [facility] [address] [address] [address] Dk Mahoney Chloride [Moles/Vol] 109 mmol/L Critically high 98-107 [facility] Comment on above: Performed By: #### M Young CMP, PHOS #### [facility] [address] [address] [address] Dk Mahoney CO2 [Moles/Vol] 21.3 mmol/L Normal 21.0-32.0 [facility] Comment on above: Performed By: #### Rosmery Vidal CMP, PHOS #### [facility] [address] [place] [address] Dr. Dk Mahoney Creatinine [Mass/Vol] 4.61 mg/dL Critically high 0.70-1.30 [facility] Comment on above: Performed By: #### Rosmery Vidal CMP, PHOS #### [facility] [address] [place] [address] Dr. Dk Mahoney EGFR-AF TURKMEN 15 mL/min/1.73m2 Critically low >=60 [facility] Comment on above: Performed By: #### M Young, CMP, PHOS #### [facility] [address] [address] [address] Dk Mahoney EGFR-NON AF TURKMEN 13 mL/min/1.73m2 Critically low >=60 [facility] Comment on above: Performed By: #### M Young, CMP, PHOS #### [facility] [address] [address] [address] Dk Mahoney Glucose [Mass/Vol] 200 mg/dL Critically high 74-106 [facility] Comment on above: Performed By: #### M Young, CMP, PHOS #### [facility] [address] [address] [address] Dk Mahoney Potassium [Moles/Vol] 5.0 mmol/L Normal 3.5-5.1 [facility] Comment on above: Performed By: #### M G, CMP, PHOS #### [facility] [address] [address] [address] Dk Mahoney Sodium [Moles/Vol] 140 mmol/L Normal 136-145 [facility] Comment on above: Performed By: #### M G, CMP, PHOS #### [facility] [address] [address] [address] Dk Mahoney Urea nitrogen [Mass/Vol] 64.0 mg/dL Critically high 7.0-18.0 [facility] Comment on above: Performed By: #### M G, CMP, PHOS #### [facility] [address] [address] [address] Dk Mahoney Urea nitrogen/Creatinine [Mass ratio] 13.9 mg/mg Normal [facility] Comment on above: Performed By: #### M G, CMP, PHOS #### [facility] [address] [address] [address] Dk Mahoney TROPONIN, HIGH SENSITIVITYon 05-04-2022 HSTROP 29.4 pg/mL Normal 4.0-76.1 [facility] Comment on above: Result Comment: CUT- OFF POINTS HAVE BEEN ESTABLISHED BASED ON THE FOURTH UNIVERSAL DEFINITIONS OF MYOCARDIAL INFARCTION. THE UPPER REFERENCE LIMIT (URL) OF TROPONIN, DEFINED THE 99TH PERCENTILE OF cTnI DISTRIBUTION IN A REFERENCE POPULATION, HAS BEEN CONFIRMED THE DECISION THRESHOLD FOR AR DIAGNOSIS. Performed By: #### M G, CMP, PHOS #### [facility] [address] [address] [address] Dk Mahoney TYPE AND SCREENon 05-04-2022 TYPE AND SCREEN Negative Normal [facility] Comment on above: Performed By: #### A NOE, TNS #### [facility] [address] [address] [address] Dk Mahoney US ROWAN DOP LEG [...] by: ROBERTO HEBERT Date: 2022-05-04 14:33 Normal [facility] PRBC LEUKOREDUCEDon 04-29-19 PRBC LEUKOREDUCED Cross Match Result Compatible Unit Blood Type O Neg Unit Number [id number] Status Information Transfused Product ID Red Blood Cells Product Code [id number] Normal [facility] Comment on above: Performed By: #### P RBC #### [facility] [address] [place] [address] Dr. Dk Mahoney ABO RH RETYPEon 04-19-2022 ABO and Rh group Nom (Bld) DONE Normal [facility] Comment on above: Performed By: #### M G, CMP, PHOS #### [facility] [address] [place] [address] Dr. Dk Mahoney CBC AUTO DIFFon 04-19-2022 BASO # 0.1 103/ul Normal 0.0-0.1 [facility] Comment on above: Performed By: #### M G, CMP, PHOS #### [facility] [address] [place] [address] Dr. Dk Mahoney Basophils/100 WBC (Bld) 0.8 % Normal 0.2-2.0 [facility] Comment on above: Performed By: #### M G, CMP, PHOS #### [facility] [address] [place] [address] Dr. Dk Mahoney EO # 0.5 103/ul Normal 0.0-0.7 [facility] Comment on above: Performed By: #### M G, CMP, PHOS #### [facility] [address] [place] [address] Dr. Dk Mahoney Eosinophils/100 WBC (Bld) 6.9 % Normal 0.9-7.0 [facility] Comment on above: Performed By: #### M SHIREEN Vidal, PHOS #### [facility] [address] [address] [address] Dk Mahoney Erythrocyte distribution width (RBC) [Ratio] 16.3 % Critically high 11.0-15.0 [facility] Comment on above: Performed By: #### M Young, CMP, PHOS #### [facility] [address] [address] [address] Dk Mahoney Hematocrit (Bld) [Volume fraction] 20.8 % Critically low 42.0-54.0 [facility] Comment on above: Performed By: #### M Young CMP, PHOS #### [facility] [address] [place] [address] Dr. Dk Mahoney Hemoglobin (Bld) [Mass/Vol] 6.8 g/dL Critically low 14.0-18.0 [facility] Comment on above: Performed By: #### M Young CMP, PHOS #### [facility] [address] [place] [address] Dr. Dk Mahoney IG # 0.04 10e3/ul Critically high 0.00-0.03 [facility] Comment on above: Performed By: #### M Young CMP, PHOS #### [facility] [address] [place] [address] Dr. Dk Mahoney IG % 0.6 % Critically high 0.0-0.5 [facility] Comment on above: Performed By: #### M G, CMP, PHOS #### [facility] [address] [place] [address] Dr. Dk Mahoney LYMPH # 1.0 103/ul Critically low 1.2-3.8 [facility] Comment on above: Performed By: #### M G, CMP, PHOS #### [facility] [address] [place] [address] Dr. Dk Mahoney Lymphocytes/100 WBC (Bld) 14.1 % Critically low 20.5-60.0 [facility] Comment on above: Performed By: #### M G, CMP, PHOS #### [facility] [address] [place] [address] Dr. Dk Mahoney MANUAL DIFF REQ NO Normal [facility] Comment on above: Performed By: #### M G, CMP, PHOS #### [facility] [address] [place] [address] Dr. Dk Mahoney MCH (RBC) [Entitic mass] 29.3 pg Normal 25.9-34.0 [facility] Comment on above: Performed By: #### M G, CMP, PHOS #### [facility] [address] [place] [address] Dr. Dk Mahoney MCHC (RBC) [Mass/Vol] 32.7 g/dL Normal 29.9-35.2 [facility] Comment on above: Performed By: #### M G, CMP, PHOS #### [facility] [address] [place] [address] Dr. Dk Mahoney MCV (RBC) [Entitic vol] 89.7 fL Normal 80.0-94.0 [facility] Comment on above: Performed By: #### M G, CMP, PHOS #### [facility] [address] [place] [address] Dr. Dk Mahoney MONO # 0.7 103/ul Normal 0.3-0.8 [facility] Comment on above: Performed By: #### M G, CMP, PHOS #### [facility] [address] [place] [address] Dr. Dk Mahoney Monocytes/100 WBC (Bld) 10.1 % Normal 1.7-12.0 [facility] Comment on above: Performed By: #### M G, CMP, PHOS #### [facility] [address] [place] [address] Dr. Dk Mahoney NEUT # 4.9 103/ul Normal 1.4-6.5 [facility] Comment on above: Performed By: #### M G, CMP, PHOS #### [facility] [address] [place] [address] Dr. Dk Mahoney Neutrophils/100 WBC (Bld) 67.5 % Normal 43.0-75.0 [facility] Comment on above: Performed By: #### M SHIREEN Vidal, PHOS #### [facility] [address] [address] [address] Dk Mahoney Platelet mean volume (Bld) [Entitic vol] 9.5 fL Normal 9.5-13.5 [facility] Comment on above: Performed By: #### Rosmery Vidal CMP, PHOS #### [facility] [address] [address] [address] Dk Mahoney PLT 212 103/ul Normal 150-450 [facility] Comment on above: Performed By: #### Rosmery Vidal CMP, PHOS #### [facility] [address] [place] [address] Dr. Dk Mahoney RBC 2.32 106/ul Critically low 4.70-6.10 [facility] Comment on above: Performed By: #### Rosmery Vidal CMP, PHOS #### [facility] [address] [place] [address] Dr. Dk Mahoney WBC 7.2 103/ul Normal 4.0-11.0 [facility] Comment on above: Performed By: #### Rosmery Vidal CMP, PHOS #### [facility] [address] [place] [address] Dr. Dk Mahoney Cov[facility]19 [facility]on SARS-CoV-2 (COVID-19) RNA JASON+probe Ql (Unsp spec) Not detected Normal NOT DETECTED [facility] Comment on above: Result Comment: When [...] for this test is supported by the [place] of Health and Human Service's declaration that [...] By: #### M SHIREEN Vidal, PHOS #### [facility] [address] [place] [address] Dr. Dk Mahoney PROF 14(COMP METB)on 023 Albumin [Mass/Vol] 2.4 g/dL Critically low 3.4-5.0 [facility] Comment on above: Performed By: #### Rosmery Vidal CMP, PHOS #### [facility] [address] [place] [address] Dr. Dk Mahoney Albumin/Globulin [Mass ratio] 0.6 {ratio} Normal [facility] Comment on above: Performed By: #### Rosmery Vidal CMP, PHOS #### [facility] [address] [place] [address] Dr. Dk Mahoney ALP [Catalytic activity/Vol] 142 U/L Critically high 46-116 [facility] Comment on above: Performed By: #### Rosmery Vidal CMP, PHOS #### [facility] [address] [place] [address] Dr. Dk Mahoney ALT [Catalytic activity/Vol] 26 U/L Normal 16-63 [facility] Comment on above: Performed By: #### Rosmery Vidal CMP, PHOS #### [facility] [address] [place] [address] Dr. Dk Mahoney Anion gap [Moles/Vol] 12.0 mmol/L Normal [facility] Comment on above: Performed By: #### Rosmery Vidal CMP, PHOS #### [facility] [address] [place] [address] Dr. Dk Mahoney AST [Catalytic activity/Vol] 19 U/L Normal 15-37 [facility] Comment on above: Performed By: #### Rosmery Vidal CMP, PHOS #### [facility] [address] [place], [place] [id number] Dr. Dk Mahoney Bilirubin [Mass/Vol] 0.3 mg/dL Normal 0.2-1.0 [facility] Comment on above: Performed By: #### M G, CMP, PHOS #### [facility] [address] [place] [address] Dr. Dk Mahoney Calcium [Mass/Vol] 9.3 mg/dL Normal 8.5-10.1 [facility] Comment on above: Performed By: #### M G, CMP, PHOS #### [facility] [address] [address] [address] Dk Mahoney Chloride [Moles/Vol] 109 mmol/L Critically high 98-107 [facility] Comment on above: Performed By: #### M G, CMP, PHOS #### [facility] [address] [place] [address] Dr. Dk Mahoney CO2 [Moles/Vol] 25.0 mmol/L Normal 21.0-32.0 [facility] Comment on above: Performed By: #### M G, CMP, PHOS #### [facility] [address] [address] [address] Dk Mahoney Creatinine [Mass/Vol] 4.83 mg/dL Critically high 0.70-1.30 [facility] Comment on above: Performed By: #### M G, CMP, PHOS #### [facility] [address] [place] [address] Dr. Dk Mahoney EGFR-AF TURKMEN 15 mL/min/1.73m2 Critically low >=60 [facility] Comment on above: Performed By: #### M G, CMP, PHOS #### [facility] [address] [address] [address] Dk Mahoney EGFR-NON AF TURKMEN 12 mL/min/1.73m2 Critically low >=60 [facility] Comment on above: Performed By: #### M G, CMP, PHOS #### [facility] [address] [place] [address] Dr. Dk Mahoney Globulin (S) [Mass/Vol] 4.1 g/dL Normal [facility] Comment on above: Performed By: #### M G, CMP, PHOS #### [facility] [address] [address] [address] Dk Mahoney Glucose [Mass/Vol] 128 mg/dL Critically high 74-106 [facility] Comment on above: Performed By: #### M G, CMP, PHOS #### [facility] [address] [address] [address] Dk Mahoney Potassium [Moles/Vol] 5.0 mmol/L Normal 3.5-5.1 [facility] Comment on above: Performed By: #### M G, CMP, PHOS #### [facility] [address] [place] [address] Dr. Dk Mahoney Protein [Mass/Vol] 6.5 g/dL Normal 6.4-8.2 [facility] Comment on above: Performed By: #### M G CMP, PHOS #### [facility] [address] [address] [address] Dk Mahoney Sodium [Moles/Vol] 141 mmol/L Normal 136-145 [facility] Comment on above: Performed By: #### M G CMP, PHOS #### [facility] [address] [place] [address] Dr. Dk Mahoney Urea nitrogen [Mass/Vol] 62.0 mg/dL Critically high 7.0-18.0 [facility] Comment on above: Performed By: #### M G, CMP, PHOS #### [facility] [address] [place] [address] Dr. Dk Mahoney Urea nitrogen/Creatinine [Mass ratio] 12.8 mg/mg Normal [facility] Comment on above: Performed By: #### M G, CMP, PHOS #### [facility] [address] [place] [address] Dr. Dk Mahoney PROTIMEon 04-19-2022 INR Coag (PPP) [Relative time] 1.01 {INR} Normal [facility] Comment on above: Performed By: #### P OCGLUC #### [facility] [address] [place] [address] Dr. Dk Mahoney INR GUIDELINES SEE BELOW Normal [facility] Comment on above: Result Comment: JOSELO RED INR: 2.0 - 3.0 CONDITIONS NOT LISTED BELOW 2.5 - 3.5 FOR PROSTHETIC HEART VALVE REPLACEMENT 2.5 - 3.5 RECURRENT THROMBOSIS Performed By: #### P OCGLUC #### [facility] [address] [place] [address] Dr. Dk Mahoney PT Coag (PPP) [Time] 10.9 s Normal 9.0-11.6 [facility] Comment on above: Performed By: #### P OCGLUC #### [facility] [address] [place] [address] Dr. Dk Mahoney PTTon 04-19-2022 aPTT Coag (Bld) [Time] 25.8 s Normal 22.3-36.2 [facility] Comment on above: Performed By: #### P OCGLUC #### [facility] [address] [place] [address] Dr. Dk Mahoney TYPE AND SCREENon 04-19-2022 TYPE AND SCREEN Negative Normal [facility] Comment on above: Performed By: #### P OCGLUC #### [facility] [address] [place] [address] Dr. Dk Mahoney CBC AUTO DIFFon 10-24-2021 BASO # 0.1 103/ul Normal 0.0-0.1 [facility] Comment on above: Performed By: #### C BC #### [facility] [address] [place] [address] Dr. Dk Mahoney Basophils/100 WBC (Bld) 0.7 % Normal 0.2-2.0 [facility] Comment on above: Performed By: #### C BC #### [facility] [address] [place] [address] Dr. Dk Mahoney EO # 0.6 103/ul Normal 0.0-0.7 [facility] Comment on above: Performed By: #### C BC #### [facility] [address] [place] [address] Dr. Dk Mahoney Eosinophils/100 WBC (Bld) 7.7 % Critically high 0.9-7.0 [facility] Comment on above: Performed By: #### C BC #### [facility] [address] [place] [address] Dr. Dk Mahoney Erythrocyte distribution width (RBC) [Ratio] 17.2 % Critically high 11.0-15.0 [facility] Comment on above: Performed By: #### C BC #### [facility] [address] [place] [address] Dr. Dk Mahoney Hematocrit (Bld) [Volume fraction] 26.1 % Critically low 42.0-54.0 [facility] Comment on above: Performed By: #### C BC #### [facility] [address] [place] [address] Dr. Dk Mahoney Hemoglobin (Bld) [Mass/Vol] 8.1 g/dL Critically low 14.0-18.0 [facility] Comment on above: Performed By: #### C BC #### [facility] [address] [place] [address] Dr. Dk Mahoney IG # 0.06 10e3/ul Critically high 0.00-0.03 [facility] Comment on above: Performed By: #### C BC #### [facility] [address] [place] [address] Dr. Dk Mahoney IG % 0.8 % Critically high 0.0-0.5 [facility] Comment on above: Performed By: #### C BC #### [facility] [address] [place] [address] Dr. Dk Mahoney LYMPH # 1.4 103/ul Normal 1.2-3.8 [facility] Comment on above: Performed By: #### C BC #### [facility] [address] [place] [address] Dr. Dk aMhoney Lymphocytes/100 WBC (Bld) 18.1 % Critically low 20.5-60.0 [facility] Comment on above: Performed By: #### C BC #### [facility] [address] [place] [address] Dr. Dk Mahoney MANUAL DIFF REQ NO Normal [facility] Comment on above: Performed By: #### C BC #### [facility] [address] [place] [address] Dr. Dk Mahoney MCH (RBC) [Entitic mass] 25.6 pg Critically low 25.9-34.0 [facility] Comment on above: Performed By: #### C BC #### [facility] [address] [place] [address] Dr. Dk Mahoney MCHC (RBC) [Mass/Vol] 31.0 g/dL Normal 29.9-35.2 [facility] Comment on above: Performed By: #### C BC #### [facility] [address] [place] [address] Dr. Dk Mahoney MCV (RBC) [Entitic vol] 82.3 fL Normal 80.0-94.0 [facility] Comment on above: Performed By: #### C BC #### [facility] [address] [place] [address] Dr. Dk Mahoney MONO # 0.9 103/ul Critically high 0.3-0.8 [facility] Comment on above: Performed By: #### C BC #### [facility] [address] [place] [address] Dr. Dk Mahoney Monocytes/100 WBC (Bld) 12.4 % Critically high 1.7-12.0 [facility] Comment on above: Performed By: #### C BC #### [facility] [address] [place] [address] Dr. Dk Mahoney NEUT # 4.6 103/ul Normal 1.4-6.5 [facility] Comment on above: Performed By: #### C BC #### [facility] [address] [place] [address] Dr. Dk Mahoney Neutrophils/100 WBC (Bld) 60.3 % Normal 43.0-75.0 [facility] Comment on above: Performed By: #### C BC #### [facility] [address] [place] [address] Dr. Dk Mahoney Platelet mean volume (Bld) [Entitic vol] 9.5 fL Normal 9.5-13.5 [facility] Comment on above: Performed By: #### C BC #### [facility] [address] [place] [address] Dr. Dk Mahoney PLT 201 103/ul Normal 150-450 [facility] Comment on above: Performed By: #### C BC #### [facility] [address] [address] [address] Dk Mahoney RBC 3.17 106/ul Critically low 4.70-6.10 [facility] Comment on above: Performed By: #### C BC #### [facility] [address] [place] [address] Dr. Dk Mahoney WBC 7.5 103/ul Normal 4.0-11.0 [facility] Comment on above: Performed By: #### C BC #### [facility] [address] [place] [address] Dr. Dk Mahoney PROF CHEM 8 (BAS METB)on Anion gap [Moles/Vol] 12.3 mmol/L Normal [facility] Comment on above: Performed By: #### M Young CMP, PHOS #### [facility] [address] [place] [address] Dr. Dk Mahoney Calcium [Mass/Vol] 9.6 mg/dL Normal 8.5-10.1 [facility] Comment on above: Performed By: #### M G, CMP, PHOS #### [facility] [address] [place] [address] Dr. Dk Mahoney Chloride [Moles/Vol] 107 mmol/L Normal 98-107 [facility] Comment on above: Performed By: #### M G CMP, PHOS #### [facility] [address] [place] [address] Dr. Dk Mahoney CO2 [Moles/Vol] 26.5 mmol/L Normal 21.0-32.0 [facility] Comment on above: Performed By: #### M G, CMP, PHOS #### [facility] [address] [address] [address] Dk Mahoney Creatinine [Mass/Vol] 3.76 mg/dL Critically high 0.70-1.30 [facility] Comment on above: Performed By: #### M G, CMP, PHOS #### [facility] [address] [address] [address] Dk Mahoney EGFR-AF TURKMEN 19 mL/min/1.73m2 Critically low >=60 [facility] Comment on above: Performed By: #### M G, CMP, PHOS #### [facility] [address] [address] [address] Dk Mahoney EGFR-NON AF TURKMEN 16 mL/min/1.73m2 Critically low >=60 [facility] Comment on above: Performed By: #### M G, CMP, PHOS #### [facility] [address] [address] [address] Dk Mahoney Glucose [Mass/Vol] 143 mg/dL Critically high 74-106 [facility] Comment on above: Performed By: #### M G, CMP, PHOS #### [facility] [address] [address] [address] Dk Mahoney Potassium [Moles/Vol] 4.8 mmol/L Normal 3.5-5.1 [facility] Comment on above: Performed By: #### M G, CMP, PHOS #### [facility] [address] [address] [address] Dk Mahoney Sodium [Moles/Vol] 141 mmol/L Normal 136-145 [facility] Comment on above: Performed By: #### M G, CMP, PHOS #### [facility] [address] [address] [address] Dk Mahoney Urea nitrogen [Mass/Vol] 47.0 mg/dL Critically high 7.0-18.0 [facility] Comment on above: Performed By: #### M G, CMP, PHOS #### [facility] [address] [address] [address] Dk Mahoney Urea nitrogen/Creatinine [Mass ratio] 12.5 mg/mg Normal [facility] Comment on above: Performed By: #### M G, CMP, PHOS #### [facility] [address] [address] [address] Dk Mahoney US ROWAN DOP LEG [...] MARQUES AMAYA Date: 2021-10-24 18:07 Normal [facility] Office Visit (Urology)on Follow-up visit Diagnoses/Problems [...] Sep 06 2020 2:12PM EST (Author) Normal [facility] Microscopic UrinalysisOrdere d By: Riana Pro on 08-29-2020 - [employer] Work Phone: Amorphous, UA NOT REPORTED None [employer] [facility] Work Phone: Bacteria, UA 2+ Abnormal None [facility] Work Phone: Casts UA NOT REPORTED /LPF [facility] [employer] Work Phone: Crystals, UA NOT REPORTED None /HPF [facility] Work Phone: Epithelial Cells UA 2 TO 5 [facility] Work Phone: Interpretation and review of laboratory results Abnormal [facility] Work Phone: Mucus, UA NOT REPORTED None [facility] Work Phone: Other Observations UA NOT REPORTED NOT REQ. M [facility] [employer] Work Phone: RBC, UA 50 TO 100 [facility] Work Phone: Renal Epithelial, UA NOT REPORTED 0 /HPF [facility] [employer] Work Phone: Trichomonas, UA NOT REPORTED None [facility] Work Phone: WBC, UA GREATER THAN 100 [facility] Work Phone: Yeast, UA NOT REPORTED None [employer] Work Phone: [employer] Work Phone: Urinalysis Reflex to Culture Ordered By: Riana Pro on 08-29-2020 Bilirubin Urine Negative NEGATIVE [facility] Work Phone: Color, UA YELLOW YELLOW [employer] Work Phone: Glucose, Ur Negative NEGATIVE [facility] Work Phone: Interpretation and review of laboratory results Abnormal [employer] Work Phone: Ketones Ql (U) Negative NEGATIVE [employer] Work Phone: Leukocyte esterase Test strip Ql (U) LARGE Abnormal NEGATIVE [employer] Phone: Nitrite, Urine Positive Abnormal NEGATIVE [employer] Work Phone: pH, UA 7.5 [facility] [employer] Work Phone: Protein, UA 1+ Abnormal NEGATIVE [facility] Work Phone: Specific [place], UA 1.010 [employer] Work Phone: Turbidity UA CLEAR CLEAR [facility] Work Phone: Urinalysis Comments NOT REPORTED [facility] [employer] Work Phone: Urine Hgb 3+ Abnormal NEGATIVE [facility] Work Phone: Urobilinogen, Urine Normal Normal [facility] [employer] Work Phone: [facility] [employer] Work Phone: Microscopic Urinalysison Amorphous, UA NOT REPORTED None [facility] [place] Bacteria, UA 2+ Abnormal None [facility] [place] Casts UA NOT REPORTED /LPF [facility] [place] Crystals, UA NOT REPORTED None /HPF [facility] [place] Epithelial Cells UA 2 TO 5 [facility] [place] Interpretation and review of laboratory results Abnormal [place], [place] Mucus, UA NOT REPORTED None [place], [place] Other Observations UA NOT REPORTED NOT REQ. M [place], [place] RBC (U) [#/Vol] 20 TO 50 [place], [place] Renal Epithelial, UA NOT REPORTED 0 /HPF [place], [place] Trichomonas, UA NOT REPORTED None [place], [place] WBC, UA GREATER THAN 100 [place], [place] Yeast, UA NOT REPORTED None [place], [place] - [place], [place] Urinalysison 02-03-2020 Bilirubin Urine Negative NEGATIVE [place], [place] Color, UA YELLOW YELLOW [place] Glucose, Ur Negative NEGATIVE [place] Interpretation and review of laboratory results Abnormal [place] Ketones Ql (U) Negative NEGATIVE [place], [place] Leukocyte esterase Test strip Ql (U) LARGE Abnormal NEGATIVE [place] Nitrite, Urine Positive Abnormal NEGATIVE [place], [place] pH, UA 8.0 [place] Protein (U) [Mass/Vol] TRACE Abnormal NEGATIVE [place] Specific [place], UA 1.015 [place], [place] Turbidity UA SLIGHTLY CLOUDY Abnormal CLEAR [place] Urinalysis Comments NOT REPORTED [place], [place] Urine Hgb 3+ Abnormal NEGATIVE [place] Urobilinogen, Urine Normal Normal [place] Vital Signs Date Time Vital Sign Value Performing Clinician Facility 10-08-2022 12:20-0400 Body height 180.34 cm Devaughn Lucio Other [employer] [facility] [employer] Other 10-08-2022 12:20-0400 Body temperature 96.6 [degF] Devaughn Lucio Other [employer] Other 10-08-2022 12:20-0400 Diastolic blood pressure 60 mm[Hg] Devaughn Lucio Other [employer] Other 10-08-2022 12:20-0400 Respiratory rate 18 /min Devaughn Khadijah Other [employer] Other 10-08-2022 12:20-0400 SaO2% (BldA) [Mass fraction] 100 % Devaughn Khadijah Other [employer] Other 10-08-2022 12:20-0400 Systolic blood pressure 121 mm[Hg] Devaughn Khadijah Other [employer] Other 10-01-2022 13:30-0400 Body height 180.34 cm Erik Shepherdrefadia Other [employer] Other 10-01-2022 13:30-0400 Body mass index (BMI) [Ratio] 42.12 kg/m2 Erik Shepherdrer Other [employer] Other 10-01-2022 13:30-0400 Body temperature 97.2 [degF] Erik Ariasehrer Other [employer] Other 10-01-2022 13:30-0400 Body weight 136.99 kg Erik Ariasehrer Other [employer] Other 10-01-2022 13:30-0400 Diastolic blood pressure 68 mm[Hg] Erik Buehrer Other [employer] Other 10-01-2022 13:30-0400 SaO2% (BldA) [Mass fraction] 97 % Erik Buehrer Other [employer] Other 10-01-2022 13:30-0400 Systolic blood pressure 138 mm[Hg] Erik Sanderson Other [employer] Other Encounters Encounter Date Encounter Type Care Provider Facility Start: 01-17-2023 End: 01-18-2023 ambulatory BLANCA Mahoney [facility] Start: 10-21-2022 End: 10-21-2022 ambulatory Devaughn Khadijah Other [employer] Other Start: 10-21-2022 Telephone encounter Devaughn Khadijah [facility] Start: 10-18-2022 End: 10-18-2022 ambulatory Devaughn Khadijah Other [employer] Other Start: 10-18-2022 Telephone encounter Devaughn Khadijah [facility] Start: 10-08-2022 End: 10-08-2022 ambulatory Devaughn Khadijah Other [employer] Other Start: 10-08-2022 Office outpatient visit 15 minutes Devaughn Khadijah [facility] Start: 10-01-2022 End: 10-01-2022 ambulatory Erik Sanderson Other [employer] Other Start: 10-01-2022 Office outpatient visit 25 minutes Erik Sanderson [facility] Start: 08-31-2022 End: 09-01-2022 ambulatory ЕЛЕНА OLSEN Facility:[id number] Start: 08-30-2022 End: 09-04-2022 Evaluation and [...] End: 08-29-2020 [facility] Start: 02-03-2020 End: 02-03-2020 Subsequent hospital visit by physician [facility] Laboratory Procedures Date Procedure Procedure Detail Performing Clinician Start: 08-31-2022 Antibody screen Eldon López Comment on above: Order Comment: NEEDS DRAWN Result Comment: PERF ORMED BY: [facility] [address] [place] [address] PATHOLOGIST IT ACCOUNT MANAGER BRANDEN WHATLEY M.D. Start: 08-29-2020 Urinalysis microscop ic only Riana Pantoja Morteza DO Work Phone: Start: 08-29-2020 Urnls dip stick/tabl et rgnt auto w/o microscopy Riana Pantoja Morteza Work Phone: Start: 02-03-2020 Urinalysis microscop ic only Riana Pro Work Phone: Start: 02-03-2020 Urnls dip stick/tabl et rgnt auto w/o microscopy Riana Pro Work Phone: Plan of Treatment Date Care Activity Detail Author Start: 12-13-2020 Influenza vaccination Flu vacc ine (Season Ended) [facility] Work Phone: Start: 04-30-2020 Creatinine measurement Creatinine mo nitoring [place] Start: 04-30-2020 Potassium monitoring Potassium monit [place] Start: 12-14-2019 Influenza vaccination Flu vaccine (# 1) [place] Start: 02-08-2019 Annual Wellness Visi t (AWV) Annual Wellness Visit (AWV) [place], [place] Start: 09-11-2015 Pneumococcal 65+ yea rs Vaccine (1 of 1 - PPSV23) Pneumococcal 65+ years Vaccine (1 of 1 - PPSV23) [place], [place] Start: 2000 Screening for malign ant neoplasm of colon Colon cancer screen colonoscopy [place] Start: 2000 Shingles Vaccine (1 of 2) Ordoñez gles Vaccine (1 of 2) [place], [place] Start: 1969 DTaP/Tdap/Td vaccine (1 - Tdap) DTaP/Tdap/Td vaccine (1 - Tdap) [place], [place] Start: 1962 COVID-19 Vaccine (1) COVID-19 Vaccin e (1) [facility] Phone: Start: 1960 Lipid panel Lipid screen [place], [place] Start: 1950 Hepatitis C screening Hepatitis C sc reen [place], [place] End: 02-03-2020 Culture, Urine Culture, Urine Microbiology Routine Once for 1 Occurrences starting 02/03/2020 until 02/03/2020 [place] Comment on above: Once for 1 Occurrenc es starting 02/03/2020 until 02/03/2020 Culture, Urine [place] End: 08-29-2020 Culture, Urine Culture, Urine Microbiology Routine Once for 1 Occurrences starting 08/29/2020 until 08/29/2020 [facility] Phone: Comment on above: Once for 1 Occurrenc es starting 08/29/2020 until 08/29/2020 Payers Date Payer Category Payer Self-pay 2022 Unknown [id number] 2022 Medicare [id number] 2020 Medicare [id number] 2019 Medicare [id number] 2019 Unknown [id number] 2014 Medicare [employer] MEDIC[employer] [facility] [id number] 2014-Present [address] [address] [place] [address] [id number] 1950 Unknown [id number] 1950 Unknown [id number] 1950 Unknown [id number] 1950 Unknown [id number] 1950 Unknown [id number] 1950 Unknown [id number] 1950 Unknown [id number] Medicare [id number] Unknown [id number] Social History Date Type Detail Facility Start: 02-05-2019 Tobacco [facility] [place] Start: 1950 Sex Assigned At Not on file [place] Sex Assigned At Sex Assigned At [facility] [employer] Other Evaluation note 10-08-2022 Note Date & Type Note Facility 10-08-2022 Evaluation note Encounter Date Diagnosis Assessment Notes Sep, CKD (chronic kidney disease) stage 4, GFR 15-29 ml/min (ICD-10 - N18.4) He has a CKD due to the longstanding hypertension and recurrent SHAWN due to the obstructive uropathy. He recently required hemodialysis due to the obstructive uropathy. He was monitored by the SD and catheter was removed as his renal function was improving as per the patient. Patient currently bedbound and can not be transferred out of the stretcher at our office. He does not want to follow-up in our office. Advised him [facility]. 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 He appears to be euvolemic. Continue current medications. Sep, Secondary hyperparathyroidism (ICD-10 - N25.81) Continue sevelamer and vitamin D as prescribed by SD physician. Continue to follow with the SD vinicius [place]. Sep, Anemia of renal disease (ICD-10 - D63.1) Continue oral iron. Sep, Nephrolithiasis (ICD-10 - N20.0) Continue follow up with urology. [employer] Other Evaluation note 10-01-2022 Note Date & [...] this well and a dressing was applied. [employer] Other Evaluation note Note Date & Type Note Facility Evaluation note No Information Sociall Other History general Narrative - Reported Note [...] REMOVAL Hospitalization History SEE ABOVE Hospitalization History [facility] 09/11/19 23 [employer] Other Advance Directives No Advanced Directives Records FoundDocuments on File Type Date Recorded Patient Can Tender Expl anation ACP-Advance Directive ACP-Power of Swimming Teacher Summary Purpose Family History No Family History [...] DATE CREATED AUTHOR AUTHOR'S ORGANIZ ATION 09/22/2022 [facility] DATE CREATED AUTHOR AUTHOR'S ORGANIZ ATION 10/29/2022 [facility] DATE CREATED AUTHOR AUTHOR'S ORGANIZ ATION 01/20/2023 [facility] REASON FOR VISIT (unrecogniz ed [...] BE BASED ON THE PRIMARY CLINICAL RECORDS. [facility]. provides no warranty or guarantee of the accuracy or completeness of information in this document.
[2023-10-14 21:58] LABS: Lactate/Lactic Acid 1.3 mmol/L (0.4-2.0)
[2023-10-14] MEDS: 0.9 % SODIUM CHLORIDE 1,000 ML 75 ML IV (23:50)
[2023-10-14] MEDS: LEVOFLOXACIN IN DEXTROSE 5 % 500 MG/100 ML PIGGYBACK 100 MG IV (23:51)
[2023-10-14] MEDS: HEPARIN SODIUM (PORCINE) 5,000 UNIT/ML VIAL 5000 UNIT SUBQ (23:52)
[2023-10-15] VITALS (15 sets, daily range): BP systolic 108–129; BP diastolic 3–66; PULSE 84–125; TEMP 36.5–37.3; O2SAT 92–97
[2023-10-15 04:36] LABS: Basophils Absolute Auto 0.1 10^3/uL (0.0-0.1); Basophils Percent Auto 0.3 % (0.2-2.0); Eosinophils Percent Auto 0.2 % (0.9-7.0); Hematocrit 27.2 % (42.0-54.0); Hemoglobin 8.5 g/dL (14.0-18.0); Immature Granulocytes Abs Auto 0.13 10^3/uL (0.00-0.03); Immature Granulocytes Pct Auto 0.8 % (0.0-0.5); Lymphocytes Absolute Auto 0.3 10^3/uL (1.2-3.8); Mean Corpuscular HGB Conc 31.3 g/dL (29.9-35.2); Mean Corpuscular Hemoglobin 28.8 pg (25.9-34.0); Mean Corpuscular Volume 92.2 fL (80.0-94.0); Mean Platelet Volume 10.8 fL (9.5-13.5); Monocytes Absolute Auto 1.2 10^3/uL (0.3-0.8); Monocytes Percent Auto 7.1 % (1.7-12.0); Neutrophils Absolute Auto 14.9 10^3/uL (1.4-6.5); Neutrophils Percent Auto 89.6 % (43.0-75.0); Platelet Count 132 10^3/uL (150-450); Red Blood Count 2.95 10^6/uL (4.70-6.10); Red Cell Distribution Width 15.9 % (11.0-15.0); White Blood Count 16.7 10^3/uL (4.0-11.0)
[2023-10-15 04:49] LABS: Alanine Aminotransferase 127 U/L (16-63); Albumin Globulin Ratio 0.6; Albumin Level 2.1 g/dL (3.4-5.0); Alkaline Phosphatase 137 U/L (46-116); Anion Gap 17.8; Aspartate Amino Transferase 31 U/L (15-37); BUN Creatinine Ratio 14.5; Bilirubin Total 0.5 mg/dL (0.2-1.0); Calcium 9.4 mg/dL (8.5-10.1); Carbon Dioxide 18.7 mmol/L (21.0-32.0); Chloride 101 mmol/L (98-107); Estimated GFR (African America 9 (>=60); Estimated GFR (Non-African Ame 7 (>=60); Globulin 3.6 g/dL; Glucose 136 mg/dL (74-106); Potassium 5.5 mmol/L (3.5-5.1); Sodium 132 mmol/L (136-145); Total Protein 5.7 g/dL (6.4-8.2)
[2023-10-15] MEDS: LEVOTHYROXINE SODIUM 75 MCG TABLET PO (05:52)
--- NOTE | 2023-10-15 06:36 | PC.NURSE ---
urine is very cloudy in color
[2023-10-15] MEDS: CHOLECALCIFEROL (VITAMIN D3) 25 MCG/1,000 UNITS TABLET 50 MCG PO (10:31)
[2023-10-15] MEDS: VENLAFAXINE HCL ER 37.5 MG CAPSULE PO (10:31)
[2023-10-15] MEDS: VANCOMYCIN HCL 7,500 MG/150 ML BOTTLE 125 MG PO ×2 (10:31→21:26)
[2023-10-15] MEDS: FINASTERIDE 5 MG TABLET PO (10:32)
[2023-10-15] MEDS: SOLIFENACIN SUCCINATE 10 MG TABLET PO (10:32)
[2023-10-15] MEDS: OMEPRAZOLE 20 MG CAPSULE.DR PO (10:33)
[2023-10-15] MEDS: ASPIRIN 81 MG TABLET.DR PO (10:33)
[2023-10-15] MEDS: HEPARIN SODIUM (PORCINE) 5,000 UNIT/ML VIAL 5000 UNIT SUBQ ×2 (10:33→21:26)
[2023-10-15] MEDS: CARVEDILOL 12.5 MG TABLET PO ×2 (10:38→21:25)
[2023-10-15] MEDS: FERROUS SULFATE 325 MG TABLET PO (10:38)
[2023-10-15] MEDS: CLOBETASOL PROPIONATE 0.05% CREAM 15 GRAM TUBE 1 APPLIC TOPICAL ×2 (10:40→21:25)
[2023-10-15] MEDS: SODIUM POLYSTYRENE SULFON 15 GM/60 ML ORAL.SUSP KAYEXALATE PO (10:43)
--- NOTE | 2023-10-15 10:47 | SWNOTE1 ---
CONNIE reached out to [facility] to see if they are still coming in to the home or if they stopped care. CONNIE received email back from Neelima at [facility] and they actually resumed care on 10/02. CONNIE let nursing know.
[2023-10-15 11:13] LABS: Glucometer 139 mg/dL (74-106)
--- NOTE | 2023-10-15 11:32 | CM.NOTE ---
Rounds made with Dr. Morris. Dr. Morris discussed labs and plan of care with Milan. Dr Morris discussed the possible need to start dialysis. Milan said [facility] is aware and trying to wait as long as possible before beginning dialysis. Food Beverage Supervisor asked Milan if he wants his stay to be under [facility] or [facility] and he said [facility]. No plan for discharge today.
--- NOTE | 2023-10-15 12:00 | P.HP_ITS ---
<Statement entered by Shaikh Arturo MD - 10/15/23 16:03> This documentation has been reviewed and approved. Seen and examined. Case discussed with Hospital NO EXPERIENCE. agree with treatment plan. 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 He became nauseated yesterday morning and vomited up his breakfast. He denies recurrent diarrhea after he was discharged home on 09/13/23 on PO Vanco for an acute C-diff infection. His las BM was normal. He presented to the ED for further evaluation as he was concerned for a recurrent UTI. He experienced bilious vomiting after arriving in the ED. Workup in the ED revealed tachycardia (114), tachypnea (26), and low-grade temp (99.9). Labs revealed leukocytosis (19.3) with left shift, stable anemia (19.4), slightly worsened renal function from baseline CKD 5 (BUN 99, CR 6.99, GFR 8), and lactic acidosis (2.5). His UA was positive for UTI. He was admitted last night as an inpatient to the hospitalist service for sepsis and UT I. At the time of my exam the patient is lethargic but arousable to voice. He is oriented but quickly falls back to sleep during conversation. He confirms that his last bowel movements at home are within normal limits and no further diarrhea was noted. He is experienced no further vomiting since arrival in the ED. He reports crampy abdominal pain occurred in the ED just prior to emesis and has resolved. He saw his pool coordinator last Friday who continues to report that the patient does not yet need dialysis. He was given gentle fluids overnight for his sepsis and UTI along with IV antibiotics. His renal function is a little worse than baseline today and he has mild hyperkalemia on repeat labs this morning. Opioid HPI Opioid Management Most Recent Pain and Opioid Data: Last Pain Scale 7 10/15/23 07:53 Last Pain Assessment 10/15/23 12:00 Last ORT Total Score 0 10/14/23 22:27 Last ORT Risk Category Low Risk 10/14/23 22:27 Review of Systems ROS Status of ROS 10 or more systems reviewed and unremark able except as noted in history and below [facility] Medical History (Updated 10/15/23 @ 12:17 by Sara Montoya NP) Accidental fall from bed ?W06.XXXA - Fall from bed, initial encounter (ICD-10) Contusion of left shoulder ?S40.012A - Contusion of left shoulder, initial encounter (ICD-10) Contusion of knee, left ?S80.02XA - Contusion of left knee, initial encounter (ICD-10) Contusion of back ?S20.229A - Contusion of unspecified back wall of thorax, initial encounter (ICD-10) Thyroid nodule ?E04.1 - Nontoxic single thyroid nodule (ICD-10) Chronic renal disease ?N18.9 - Chronic kidney disease, unspecified (ICD-10) C. 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 - Other specified dermatitis (ICD-10) CAD (coronary artery disease) ?I25.10 - Atherosclerotic heart disease of solomon coronary artery without angina pectoris (ICD-10) T2DM (type 2 diabetes mellitus) ?E11.9 - Type 2 diabetes mellitus without complications (ICD-10) Hypothyroid ?E03.9 - Hypothyroidism, unspecified (ICD-10) HLD (hyperlipidemia) ?E78.5 - Hyperlipidemia, unspecified (ICD-10) HTN (hypertension) ?I10 - Essential (primary) hypertension (ICD-10) Anemia in CKD (chronic kidney disease) ?N18.9 - Chronic kidney disease, unspecified (ICD-10) ?D63.1 - Anemia in chronic kidney disease (ICD-10) Chronic indwelling Solomon catheter ?Z97.8 - Presence of other specified devices (ICD-10) Paraplegia ?G82.20 - Paraplegia, unspecified (ICD-10) Bedbound ?Z74.01 - Bed confinement status (ICD-10) H/O: CVA (cerebrovascular accident) ?Z86.73 - Personal history of transient ischemic attack (TIA), and cerebral infarction without residual deficits (ICD-10) CKD (chronic kidney disease) stage 5, GFR less than 15 ml/min ?N18.5 - Chronic kidney disease, stage 5 (ICD-10) Surgical History (Updated 09/11/23 @ 03:19 by Bethany Amor) H/O heart artery stent ?Z95.5 - Presence of coronary angioplasty implant and graft (ICD-10) Social History (Updated 09/11/23 @ 01:42 by Bethany Amor) Within the past year, how often did you have a drink containing alcohol: never Score interpretation: A score less than 4 is consistent with normal alcohol consumption. Smoking status: Former smoker Non-prescribed substance use: denies use Highest level of school completed/degree received: Associate degree: occupational, technical, vocational program Are you now , , , , never or living with a partner: don't know In a typical week, how many times do you talk on the telephone with family, friends, or neighbors: never How often do you get together with friends or relatives: never How often do you attend latter-day or anabaptist services: never Little interest or pleasure in doing things: not at all Feeling down, depressed, or hopeless: not at all Do you think of yourself as: straight/heterosexual Gender Identity: male Meds Home Medications and Allergies Home Medications ?Medication ?Instructions ?Recorded ?Confirmed ?Type acetaminophen 325 mg capsule 975 mg PO TID PRN fever or pain 08/17/23 10/14/23 History (Tylenol) albuterol 90 mcg/actuation aerosol 180 mcg inhalation QID PRN 08/17/23 10/15/23 History inhaler shortness of breath or wheezing aspirin 81 mg tablet,delayed 81 mg PO DAILY 08/17/23 10/14/23 History release (Adult Low Dose Aspirin) atorvastatin 80 mg tablet 80 mg PO .QHS 08/17/23 10/14/23 History bacitracin zinc 500 unit/gram 1 applic topical DAILY PRN skin 08/17/23 10/14/23 History topical ointment irritation calcitriol 0.25 mcg capsule 0.25 mcg PO .3 TIMES WEEK 08/17/23 10/14/23 History carvedilol 12.5 mg tablet 12.5 mg PO BID 08/17/23 10/14/23 History cholecalciferol (vitamin D3) 50 2,000 unit PO DAILY 08/17/23 10/14/23 History mcg (2,000 unit) capsule clobetasol 0.05 % topical cream 1 applic topical BID 08/17/23 10/15/23 History darbepoetin adnielle in polysorbat 100 100 mcg subcut QWEEK 08/17/23 10/15/23 History mcg/mL in polysorbate injection darifenacin 15 mg tablet,extended 15 mg PO DAILY 08/17/23 10/15/23 History release 24 hr ferrous sulfate 325 mg (65 mg 325 mg PO .QOD 08/17/23 10/15/23 History iron) tablet,delayed release finasteride 5 mg tablet 5 mg PO DAILY 08/17/23 10/15/23 History guaifenesin 600 mg tablet, 600 mg PO BID PRN congestion 08/17/23 10/15/23 History extended release 12 hr hydrophilic cream 1 applic topical BID 08/17/23 10/15/23 History levothyroxine 75 mcg capsule 75 mcg PO QAM 08/17/23 10/15/23 History lidocaine HCl 2 % topical gel 1 applic topical DAILY PRN pain 08/17/23 10/15/23 History lidocaine HCl 4 % topical ointment 1 ea topical TID PRN pain 08/17/23 10/15/23 History (AsperFlex (lidocaine HCl)) loratadine 10 mg tablet (Allergy 10 mg PO .QOD 08/17/23 10/15/23 History Relief (loratadine)) melatonin 3 mg tablet 3 mg PO .QHS PRN sleep 08/17/23 10/15/23 History miconazole nitrate 2 % topical 1 applic topical DAILY PRN fungal 08/17/23 History powder (Remedy Phytoplex Antifungal) multivitamin 1 tab PO DAILY 08/17/23 10/15/23 History nitroglycerin 0.4 mg sublingual 0.4 mg sublingual Q5M PRN chest 08/17/23 4 History tablet pain omeprazole 20 mg tablet,delayed 20 mg PO DAILY 08/17/23 10/15/23 History release polyethylene glycol 3350 17 17 g PO DAILY PRN constipation 08/17/23 10/15/23 History gram/dose oral powder (Miralax) potassium citrate-citric acid 30 ml PO DAILY 08/17/23 10/15/23 History 1,100 mg-334 mg/5 mL oral solution pramoxine 1 % lotion 1 applic topical TID PRN itching 08/17/23 10/15/23 History semaglutide 2 mg/dose (8 mg/3 mL) 0.5 mg subcut QWEEK 08/17/23 10/15/23 History subcutaneous pen injector (Ozempic) sennosides 8.6 mg capsule 8.6 mg PO DAILY PRN constipation 08/17/23 10/15/23 History trazodone 100 mg tablet 100 mg PO .QHS 08/17/23 10/15/23 History venlafaxine 37.5 mg 37.5 mg PO DAILY 08/17/23 10/15/23 History capsule,extended release 24 hr wound dressings (Triad Wound 1 applic topical .COMPLEX 08/17/23 10/15/23 History Dressing paste) zinc oxide 20 % topical ointment 1 applic topical DAILY PRN skin 08/17/23 10/15/23 History irritation ixekizumab 80 mg/mL subcutaneous See Rx Instructions subcut .COMPLEX 09/11/23 10/15/23 History syringe sodium chloride 0.65 % nasal spray 2 spray intranasal QID PRN dry 09/11/23 10/15/23 History aerosol ([place] Saline) nasal passages triamcinolone acetonide 0.1 % 1 applic topical BID 09/11/23 10/15/23 History topical ointment Allergies Allergy/AdvReac Type Severity Reaction Status Date / Time Penicillins Allergy Mild Rash Verified 09/25/23 15:39 ferumoxides Allergy Rash Verified 09/25/23 15:39 sulfamethoxazole AdvReac Mild Nausea Verified 09/25/23 15:39 [From Sulfamethoxazole-Trimethoprim] trimethoprim AdvReac Mild Nausea Verified 09/25/23 15:39 [From Sulfamethoxazole-Trimethoprim] Exam Constitutional Vital Signs, click to edit/add: Last Vital Signs Temp 98.2 F 10/15/23 05:42 Pulse 87 10/15/23 11:43 Resp 18 10/15/23 05:42 BP 114/64 10/15/23 05:42 Pulse Ox 92 L 10/15/23 05:42 O2 Del Method Room Air 10/15/23 05:42 Common normals: no apparent distress, oriented x3 and well nourished General appearance: cooperative and lethargic [facility] Common normals: normocephalic, head/scalp atraumatic, hearing grossly normal bilaterally, external nose normal and moist oral mucous membranes Eye Common normals: PERRL, EOMs intact bilaterally, conjunctivae normal and no scleral icterus Alignment: alignment normal Eyelid: eyelids normal Neck & C-Spine Common normals: full ROM, supple and no JVD Chest Common normals: inspection of chest normal Chest: symmetrical chest wall rise Respiratory Common normals: normal respiratory effort, no retractions, no use of accessory muscles and clear to auscultation bilaterally Effort & inspection: able to speak in complete sentences Cardio Common normals: no JVD, regular rate, regular rhythm, S1 normal heart sound, S2 normal heart sound, no gallops, no clicks, no rub and peripheral pulses 2+ throughout Heart sounds: murmur (HSM 2/6) GI Common normals: Normal to inspection, nondistended, normoactive bowel sounds present, soft to palpation, no hepatosplenomegaly, no masses and no bruits Palpation: tender Details: RLQ (Chronic, non-focal) Bladder/kidney exam: bladder normal to palpation Back & Pelvis Common normals: thoracic and lumbar spine normal to inspection Extremity Common normals: normal capillary refill General: normal exam except as noted and edema (Chronic brawny edema BLE, w/ trace pitting); no clubbing and no cyanosis Neuro [place] Coma Scale: document GCS findings Darrow coma scale eye opening: To sound Alba coma scale verbal response: Orientated [place]arrow coma scale motor response: Obey commands Alba coma scale total score: 14 Common normals: CN's II-XII intact bilaterally and no sensory deficits noted Speech: speech normal Other: Non-ambulatory at baseline after CVA w/ L side residual. Able to move bilat toes Psych Common normals: mental status grossly normal, thought process normal, affect normal and activity/motor behavior normal Results Labs Labs: Short CBC 10/14/23 10/15/23 Range/Units 18:10 04:04 WBC 19.3 H 16.7 H (4.0-11.0) 10^3/uL Hgb 9.4 L 8.5 L (14.0-18.0) g/dL Hct 29.6 L 27.2 L (42.0-54.0) % Plt Count 160 132 L (150-450) 10^3/uL BMP 10/14/23 10/15/23 18:10 04:04 Sodium 135 L 132 L Potassium 5.1 5.5 H Chloride 101 101 Carbon Dioxide 19.4 L 18.7 L BUN 99.0 H* 105.0 H* Creatinine 6.99 H* 7.23 H* Glucose 144 H 136 H Calcium 9.8 9.4 Liver Function 10/15/23 Range/Units 04:04 Total Bilirubin 0.5 (0.2-1.0) mg/dL AST 31 (15-37) U/L ALT 127 H (16-63) U/L Alkaline Phosphatase 137 H (46-116) U/L Albumin 2.1 L (3.4-5.0) g/dL Urine 10/14/23 Range/Units 18:10 Urine Color Yellow (YELLOW) Urine Clarity Cloudy A (CLEAR) Urine pH 6.5 (5.0-9.0) Ur Specific [place] 1.020 (1.005-1.025) Urine Protein 100 A (NEG/TRACE) mg/dL Urine Glucose (UA) 250 A (NEGATIVE) mg/dL Pulse Oximetry Attestation: I have reviewed the pertinent pulse oximetry results. Imaging Chest x-ray: Attestation: I have reviewed the pertinent imaging results. Radiologist's impression: Impression: No radiographic evidence of acute cardiopulmonary process. Assessment and Plan Assessment and Plan (1) Sepsis: Assessment and Plan: Acute * AEB: * SEP1 Criteria - Severe Sepsis: SIRS (HR 114, RR 26, WBC 19.3), Lactic Acid 2.5, Source - UTI * SEP3 Criteria - Sepsis w/o Shock: qSOFA score of 2 (GCS 14, RR 26), SOFA score of 3 (GCS 14, Cr 6.99 [1.5 above normal]), Source - UTI * Adm inpatient * We anticipate greater than a 2 midnight stay for medically necessary hospital care including: IVF and close monitoring of fluid balance, IV ABX, daily labs, Tele monitoring * Gentle IVFs in setting of end-stage renal disease * lactic acidosis resolved overnight (1.3) * See UTI for antibiotics * BC x 2 obtained in ED - pending * CBC, CMP daily (2) Urinary tract infection: Assessment and Plan: Acute * Recently treated for UTI w/ pseudomonas that was perkins-sensitive but with some near intermediate sensitivities * Rocephin initially given in the ED, then Levaquin given based on prior pseud omonas UTI * Switch to Cipro renally dosed - better sensitivity profile and easier on the kidneys * UA C&S pending * CBC daily (3) Lactic acidosis: Assessment and Plan: Acute * Resolved - 2.4, 1.3 after IVFs (4) Hyperkalemia: Assessment and Plan: Acute * Mild, K+ 5.5 on repeat labs this morning * At risk for worsening hyperkalemia w/ end stage renal disease, slightly worse than baseline currently * Kayexalate x 1 now * Repeat BMP at 1400 and consider further dosing pending result (5) C. 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 Not on ACEi/ARB at baseline likely d/t end-stage CKD Qualifiers: Coronary Disease-Associated Artery/Lesion type: solomon artery [place] vs. 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 * Hold home Ustekinumab (immunosuppressive) for now d/t active C-diff infection * Likely resume at discharge (9) Anemia in CKD (chronic kidney disease): Assessment and Plan: Chronic * Stable at baseline * Asymptomatic Qualifiers: Chronic kidney disease stage: stage 5, not on chronic dialysis Qualified Code(s): N18.5 - Chronic kidney disease, stage 5; D63.1 - Anemia in chronic kidney disease (10) Chronic indwelling Solomon catheter: Assessment and Plan: Chronic * Maintain solomon catheter (11) CKD (chronic kidney disease) stage 5, GFR less than 15 ml/min: Assessment and Plan: Chronic * Baseline CKD5, not currently on dialysis * Follows outpatient with nephrology - defer to outpatient management * Continue home calcitriol, Vit D3 supplement Urinary Catheter Management Urinary Catheter Management Urethral: Cath placed during this visit: no
--- NOTE | 2023-10-15 13:08 | W.PM.WC_ITS ---
Wound Consult Note Assessment and Plan (1) Sepsis: (2) Urinary tract infection: (3) Lactic acidosis: (4) Hyperkalemia: (5) C. 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 transplanted heart: [place] heart Associated angina: without angina Qualified Code(s): I25.10 - Atherosclerotic heart disease of [place] coronary artery without angina pectoris (8) Psoriasiform eczema: (9) Anemia in CKD (chronic kidney disease): Qualifiers: Chronic kidney disease stage: stage 5, not on chronic dialysis Qualified Code(s): N18.5 - Chronic kidney disease, stage 5; D63.1 - Anemia in chronic kidney disease (10) Chronic indwelling [place] catheter: (11) CKD (chronic kidney disease) stage 5, GFR less than 15 ml/min: Plan Consult: Right buttock ulcer Patient very drowsy. When asked if he has skin issues he shakes his head yes and falls back asleep. Photos were taken on admission and reviewed. Patient has moisture associated dermatitis along with shearing/friction injury. There is zinc oxide noted on his room counter that has already been ordered. This will be good to use on this area. I did assess his heels which are intact. His BLE are elevated but edematous. Spoke with bedside RN that states his right buttock is the only area of concern. Wound recommend repositioning frequently, monitoring for moisture/incontinence to keep skin dry and intact. Please call [phone] with any concerns/questions. Deven Guthrie, BSN, RN, CWON
[2023-10-15] MEDS: 0.9 % SODIUM CHLORIDE 1,000 ML 75 ML IV (14:18)
[2023-10-15 14:44] LABS: BUN Creatinine Ratio 13.9; Calcium 9.5 mg/dL (8.5-10.1); Carbon Dioxide 16.4 mmol/L (21.0-32.0); Chloride 102 mmol/L (98-107); Estimated GFR (African America 8 (>=60); Estimated GFR (Non-African Ame 7 (>=60); Glucose 143 mg/dL (74-106); Potassium 5.4 mmol/L (3.5-5.1); Sodium 132 mmol/L (136-145)
--- NOTE | 2023-10-15 14:47 | SWNOTE1 ---
CONNIE stopped in to speak with pt. Pt is at home alone, daughter checks on him. [facility] 8 hours per day. He also has Kim BRAY coming in as well. Pt's plan is to reutrn home at discharge. He voiced he will never go to a facility. CONNIE sent over updates to Kim BRAY.
[2023-10-15 16:12] LABS: Glucometer 160 mg/dL (74-106)
[2023-10-15] MEDS: CALCITRIOL 0.25 MCG CAPSULE PO (16:40)
[2023-10-15] MEDS: CIPROFLOXACIN IN 5 % DEXTROSE 400 MG/200 ML PIGGYBACK 200 MG IV (16:40)
[2023-10-15 17:25] LABS: A. calcoaceticus-baumannii Cpx NOT DETECTED (NOT DETECTE); Bacteroides fragilis NOT DETECTED (NOT DETECTE); Candida albicans NOT DETECTED (NOT DETECTE); Candida auris NOT DETECTED (NOT DETECTE); Candida glabrata NOT DETECTED (NOT DETECTE); Candida krusei NOT DETECTED (NOT DETECTE); Candida parapsilosis NOT DETECTED (NOT DETECTE); Candida tropicalis NOT DETECTED (NOT DETECTE); Cryptococcus neoformans/gattii NOT DETECTED (NOT DETECTE); Enterobacter cloacae complex NOT DETECTED (NOT DETECTE); Enterobacterales NOT DETECTED (NOT DETECTE); Enterococcus faecalis NOT DETECTED (NOT DETECTE); Enterococcus faecium NOT DETECTED (NOT DETECTE); Haemophilus influenzae NOT DETECTED (NOT DETECTE); Klebsiella aerogenes NOT DETECTED (NOT DETECTE); Klebsiella pneumoniae group NOT DETECTED (NOT DETECTE); Listeria monocytogenes NOT DETECTED (NOT DETECTE); Neisseria meningitidis NOT DETECTED (NOT DETECTE); Proteus spp. NOT DETECTED (NOT DETECTE); Salmonella spp. NOT DETECTED (NOT DETECTE); Serratia marcescens NOT DETECTED (NOT DETECTE); Staphylococcus epidermidis NOT DETECTED (NOT DETECTE); Staphylococcus lugdunensis NOT DETECTED (NOT DETECTE); Staphylococcus spp. NOT DETECTED (NOT DETECTE); Stenotrophomonas maltophilia NOT DETECTED (NOT DETECTE); Streptococcus agalactiae NOT DETECTED (NOT DETECTE); Streptococcus pneumoniae NOT DETECTED (NOT DETECTE); Streptococcus pyogenes NOT DETECTED (NOT DETECTE); Streptococcus spp. NOT DETECTED (NOT DETECTE)
[2023-10-15] MEDS: SODIUM POLYSTYRENE SULFON 15 GM/60 ML ORAL.SUSP KAYEXALATE 30 GM PO (17:57)
[2023-10-15 18:40] LABS: CTX-M NOT DETECTED (NOT DETECTE); IMP NOT DETECTED (NOT DETECTE); KPC NOT DETECTED (NOT DETECTE); NDM NOT DETECTED (NOT DETECTE); Source BLOOD; VIM NOT DETECTED (NOT DETECTE)
[2023-10-15 18:45] LABS: Pseudomonas aeruginosa DETECTED (NOT DETECTE)
[2023-10-15 20:31] LABS: Glucometer 139 mg/dL (74-106)
[2023-10-15] MEDS: TRAZODONE HCL 50 MG TABLET 100 MG PO (21:25)
[2023-10-15] MEDS: ATORVASTATIN CALCIUM 40 MG TABLET 80 MG PO (21:25)
[2023-10-16] VITALS (14 sets, daily range): BP systolic 108–129; BP diastolic 52–67; PULSE 77–108; TEMP 36.4–37.1; O2SAT 97–100
[2023-10-16] MEDS: 0.9 % SODIUM CHLORIDE 1,000 ML 100 ML IV ×3 (02:14→21:21)
[2023-10-16] MEDS: LEVOTHYROXINE SODIUM 75 MCG TABLET PO (05:37)
[2023-10-16] MEDS: OMEPRAZOLE 20 MG CAPSULE.DR PO (05:37)
[2023-10-16 06:27] LABS: Basophils Percent Auto 0.1 % (0.2-2.0); Hematocrit 24.1 % (42.0-54.0); Hemoglobin 7.7 g/dL (14.0-18.0); Immature Granulocytes Abs Auto 0.07 10^3/uL (0.00-0.03); Immature Granulocytes Pct Auto 0.8 % (0.0-0.5); Lymphocytes Absolute Auto 0.2 10^3/uL (1.2-3.8); Lymphocytes Percent Auto 2.4 % (20.5-60.0); Mean Corpuscular Hemoglobin 29.1 pg (25.9-34.0); Mean Corpuscular Volume 90.9 fL (80.0-94.0); Mean Platelet Volume 10.7 fL (9.5-13.5); Monocytes Absolute Auto 0.7 10^3/uL (0.3-0.8); Monocytes Percent Auto 8.4 % (1.7-12.0); Neutrophils Absolute Auto 7.8 10^3/uL (1.4-6.5); Neutrophils Percent Auto 88.3 % (43.0-75.0); Platelet Count 96 10^3/uL (150-450); Red Blood Count 2.65 10^6/uL (4.70-6.10); Red Cell Distribution Width 15.7 % (11.0-15.0); White Blood Count 8.9 10^3/uL (4.0-11.0)
[2023-10-16 06:47] LABS: Alanine Aminotransferase 98 U/L (16-63); Albumin Globulin Ratio 0.6; Albumin Level 1.9 g/dL (3.4-5.0); Alkaline Phosphatase 115 U/L (46-116); Anion Gap 22.9; Aspartate Amino Transferase 32 U/L (15-37); BUN Creatinine Ratio 15.2; Bilirubin Total 0.4 mg/dL (0.2-1.0); Calcium 8.6 mg/dL (8.5-10.1); Carbon Dioxide 14.1 mmol/L (21.0-32.0); Chloride 101 mmol/L (98-107); Estimated GFR (African America 8 (>=60); Estimated GFR (Non-African Ame 7 (>=60); Globulin 3.1 g/dL; Glucose 135 mg/dL (74-106); Sodium 134 mmol/L (136-145)
--- NOTE | 2023-10-16 09:33 | PM.IMPN1 ---
Progress Note: A&P Assessment and Plan (1) Sepsis: Assessment and Plan: Hemodynamics have improved. On IV ciprofloxacin. Blood cultures positive for Pseudomonas. Continue with ciprofloxacin. Follow-up sensitivities. Qualifiers: Sepsis acute organ dysfunction status: without acute organ dysfunction Sepsis type: Pseudomonas Qualified Code(s): A41.52 - Sepsis due to Pseudomonas (2) Bacteremia due to Pseudomonas: Assessment and Plan: On IV ciprofloxacin. Awaiting sensitivities. Ordered repeat blood cultures tomorrow after being treated for 48 hours (3) Urinary tract infection: Assessment and Plan: Due to Pseudomonas and associated with urinary catheter, c/w antibiotics. Qualifiers: Encounter type: subsequent encounter Indwelling urinary catheter type: indwelling urethral catheter Urinary tract infection type: catheter-associated UTI Qualified Code(s): T83.511D - Infection and inflammatory reaction due to indwelling urethral catheter, subsequent encounter; N39.0 - Urinary tract infection, site not specified (4) Lactic acidosis: Assessment and Plan: Improved. (5) Hyperkalemia: Assessment and Plan: Resolved with Kayexalate. (6) C. difficile colitis: Assessment and Plan: Empirically on p.o. vancomycin. He had recent hospital admission for C. difficile colitis and had just finished his course of p.o. vancomycin. Patient had diarrhea overnight but this could be because of Kayexalate. (7) T2DM (type 2 diabetes mellitus): Assessment and Plan: Ozempic as outpatient. 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 Continue with home medications. Qualifiers: Associated angina: without angina Coronary Disease-Associated Artery/Lesion type: [place] artery [place] vs. transplanted heart: [place] heart Qualified Code(s): I25.10 - Atherosclerotic heart disease of [place] coronary artery without angina pectoris (9) Psoriasiform eczema: Assessment and Plan: Stable (10) Anemia in CKD (chronic kidney disease): Assessment and Plan: Stable, at baseline. Monitor. Qualifiers: Chronic kidney disease stage: stage 5, not on chronic dialysis Qualified Code(s): N18.5 - Chronic kidney disease, stage 5; D63.1 - Anemia in chronic kidney disease (11) Chronic indwelling Wooten catheter: Assessment and Plan: In place, no obstruction. Continue with routine indwelling catheter care (12) CKD (chronic kidney disease) stage 5, GFR less than 15 ml/min: Assessment and Plan: Not on hemodialysis. Monitor closely. Internal Medicine - PN: Subj Subjective Interval history: Seen and examined. Reports multiple bowel movements at night due to kayaxelate given for Hyperkalemia. Feels exhausted and tired because of it. Denies nausea/vomiting. No overnight events otherwise. Exam Constitutional Vital Signs, click to edit/add: Last Vital Signs Temp 98 F 10/16/23 05:58 Pulse 102 H 10/16/23 07:56 Resp 18 10/16/23 05:58 BP 121/54 10/16/23 05:58 Pulse Ox 97 10/16/23 05:58 O2 Del Method Room Air 10/16/23 05:58 Documenting provider has reviewed patient's vital signs: yes Common normals: no apparent distress and oriented x3 Nutritional appearance: obese Respiratory Common normals: normal respiratory effort, no retractions, no use of accessory muscles and clear to auscultation bilaterally Effort & inspection: able to speak in complete sentences Cardio Common normals: no JVD, regular rate, regular rhythm, S1 normal heart sound and S2 normal heart sound GI Common normals: Normal to inspection, nondistended, normoactive bowel sounds present, soft to palpation, non-tender and no hepatosplenomegaly Extremity Common normals: normal to inspection and no clubbing, cyanosis or edema Neuro Common normals: oriented x3 Gait (neuro): unable to assess gait Motor exam: strength abnormal Psych Common normals: mental status grossly normal, thought process normal, cooperative, denies homicidal ideation and denies suicidal ideation Internal Medicine - PN: Obj Da Labs Labs: Laboratory Results - last 24 hr 10/14/23 10/15/23 10/15/23 18:10 11:12 14:07 WBC RBC Hgb Hct MCV MCH MCHC RDW Plt Count MPV Neut % (Auto) Lymph % (Auto) [place] % (Auto) Eos % (Auto) Baso % (Auto) Neut # (Auto) Lymph # (Auto) [place] # (Auto) Eos # (Auto) Baso # (Auto) Abs Immat Gran (auto) Imm/Tot Granulo (auto) Sodium 132 L Potassium 5.4 H Chloride 102 Carbon Dioxide 16.4 L Anion Gap 19.0 BUN 108.0 H* Creatinine 7.75 H* Est GFR ( Amer) 8 L Est GFR (Non-Af Amer) 7 L BUN/Creatinine Ratio 13.9 Glucose 143 H Calcium 9.5 Total Bilirubin AST ALT Alkaline Phosphatase Total Protein Albumin Globulin Albumin/Globulin Ratio Specimen Source Blood A.calcoaceticus-baumannii cmplx PCR Not detected Bacteroides fragilis Not detected Elizabeth albicans (PCR) Not detected Elizabeth auris (PCR) Not detected C. glabrata (PCR) Not detected C. krusei (PCR) Not detected C. parapsilosis (PCR) Not detected C. tropicalis (PCR) Not detected C. neoform/gattii (PCR) Not detected Enterobacterales (PCR) Not detected E. cloacae complex PCR Not detected Enterococc faecalis PCR Not detected Enterococc faecium PCR Not detected E. coli (PCR) Not detected H. influenzae (PCR) Not detected Klebsiella aerogenes (PCR) Not detected Klebsiella oxytoca PCR Not detected K. pneumoniae group (PCR) Not detected List. monocytogenes PCR Not detected N. meningitidis (PCR) Not detected Proteus spp. (copies/mL) Not detected Salmonella spp. (PCR) Not detected Serratia marcescens PCR Not detected Staphylococcus sp PCR Not detected Staph aureus (PCR) Not detected mecA/C & MREJ Resist Gene Not applicable mecA/C-Methicil Resis Gene Not applicable mcr-1 Colistin Res Gene PCR Not applicable Staph epidermidis (PCR) Not detected Staph lugdunensis (TEM-PCR) Not detected S. maltophilia (PCR) Not detected Streptococcus sp PCR Not detected Strep agalactiae (PCR) Not detected Strep pneumoniae (PCR) Not detected S. pyogenes (PCR) Not detected P. aeruginosa (PCR) Detected A* Charlene/B-Vanco Res Genes Not applicable blaIMP Car res Gene PCR Not detected KPC (blaKPC) Detect PCR Not detected NDM (blaNDM) Detect PCR Not detected OXA-48 Carbapenem Resis Gene (PCR) Not applicable blaVIM Car Res Gene PCR Not detected CTX-M ESBL (PCR) Not detected POC Glucose 139 H 10/15/23 10/15/23 10/16/23 16:11 20:26 06:02 WBC 8.9 RBC 2.65 L Hgb 7.7 L Hct 24.1 L MCV 90.9 MCH 29.1 MCHC 32.0 RDW 15.7 H Plt Count 96 L MPV 10.7 Neut % (Auto) 88.3 H Lymph % (Auto) 2.4 L [place] % (Auto) 8.4 Eos % (Auto) 0.0 L Baso % (Auto) 0.1 L Neut # (Auto) 7.8 H Lymph # (Auto) 0.2 L [place] # (Auto) 0.7 Eos # (Auto) 0.0 Baso # (Auto) 0.0 Abs Immat Gran (auto) 0.07 H Imm/Tot Granulo (auto) 0.8 H Sodium 134 L Potassium 4.0 Chloride 101 Carbon Dioxide 14.1 L Anion Gap 22.9 BUN 120.0 H* Creatinine 7.90 H* Est GFR ( Amer) 8 L Est GFR (Non-Af Amer) 7 L BUN/Creatinine Ratio 15.2 Glucose 135 H Calcium 8.6 Total Bilirubin 0.4 AST 32 ALT 98 H Alkaline Phosphatase 115 Total Protein 5.0 L Albumin 1.9 L Globulin 3.1 Albumin/Globulin Ratio 0.6 Specimen Source A.calcoaceticus-baumannii cmplx PCR Bacteroides fragilis Elizabeth albicans (PCR) Elizabeth auris (PCR) C. glabrata (PCR) C. krusei (PCR) C. parapsilosis (PCR) C. tropicalis (PCR) C. neoform/gattii (PCR) Enterobacterales (PCR) E. cloacae complex PCR Enterococc faecalis PCR Enterococc faecium PCR E. coli (PCR) H. influenzae (PCR) Klebsiella aerogenes (PCR) Klebsiella oxytoca PCR K. pneumoniae group (PCR) List. monocytogenes PCR N. meningitidis (PCR) Proteus spp. (copies/mL) Salmonella spp. (PCR) Serratia marcescens PCR Staphylococcus sp PCR Staph aureus (PCR) mecA/C & MREJ Resist Gene mecA/C-Methicil Resis Gene mcr-1 Colistin Res Gene PCR Staph epidermidis (PCR) Staph lugdunensis (TEM-PCR) S. maltophilia (PCR) Streptococcus sp PCR Strep agalactiae (PCR) Strep pneumoniae (PCR) S. pyogenes (PCR) P. aeruginosa (PCR) Charlene/B-Vanco Res Genes blaIMP Car res Gene PCR KPC (blaKPC) Detect PCR NDM (blaNDM) Detect PCR OXA-48 Carbapenem Resis Gene (PCR) blaVIM Car Res Gene PCR CTX-M ESBL (PCR) POC Glucose 160 H 139 H Urinary Catheter Management Urinary Catheter Management Urethral: Cath placed during this visit: no
[2023-10-16 11:29] LABS: Glucometer 124 mg/dL (74-106)
[2023-10-16] MEDS: VENLAFAXINE HCL ER 37.5 MG CAPSULE PO (11:33)
[2023-10-16] MEDS: SOLIFENACIN SUCCINATE 10 MG TABLET PO (11:33)
[2023-10-16] MEDS: CHOLECALCIFEROL (VITAMIN D3) 25 MCG/1,000 UNITS TABLET 50 MCG PO (11:33)
[2023-10-16] MEDS: HEPARIN SODIUM (PORCINE) 5,000 UNIT/ML VIAL 5000 UNIT SUBQ ×2 (11:33→21:11)
[2023-10-16] MEDS: FINASTERIDE 5 MG TABLET PO (11:33)
[2023-10-16] MEDS: ASPIRIN 81 MG TABLET.DR PO (11:34)
[2023-10-16] MEDS: CARVEDILOL 12.5 MG TABLET PO ×2 (11:34→21:11)
[2023-10-16] MEDS: VANCOMYCIN HCL 7,500 MG/150 ML BOTTLE 125 MG PO ×2 (11:34→21:11)
[2023-10-16] MEDS: CLOBETASOL PROPIONATE 0.05% CREAM 15 GRAM TUBE 1 APPLIC TOPICAL ×2 (11:35→21:13)
[2023-10-16] MEDS: CIPROFLOXACIN IN 5 % DEXTROSE 400 MG/200 ML PIGGYBACK 200 MG IV (16:55)
[2023-10-16] MEDS: CALCITRIOL 0.25 MCG CAPSULE PO (16:55)
[2023-10-16 17:10] LABS: Glucometer 185 mg/dL (74-106)
[2023-10-16] MEDS: INSULIN ASPART 300 UNIT/3 ML PEN SUBQ (17:43)
[2023-10-16] MEDS: TRAZODONE HCL 50 MG TABLET 100 MG PO (21:11)
[2023-10-16] MEDS: ATORVASTATIN CALCIUM 40 MG TABLET 80 MG PO (21:11)
[2023-10-16 21:31] LABS: Glucometer 125 mg/dL (74-106)
[2023-10-17] VITALS (9 sets, daily range): BP systolic 99–125; BP diastolic 53–66; PULSE 71–84; TEMP 36.1–36.2; O2SAT 98–100
[2023-10-17 05:06] LABS: Basophils Percent Auto 0.2 % (0.2-2.0); Eosinophils Percent Auto 0.8 % (0.9-7.0); Hemoglobin 7.3 g/dL (14.0-18.0); Immature Granulocytes Abs Auto 0.02 10^3/uL (0.00-0.03); Immature Granulocytes Pct Auto 0.4 % (0.0-0.5); Lymphocytes Absolute Auto 0.2 10^3/uL (1.2-3.8); Lymphocytes Percent Auto 3.5 % (20.5-60.0); Mean Corpuscular HGB Conc 31.7 g/dL (29.9-35.2); Mean Corpuscular Hemoglobin 29.2 pg (25.9-34.0); Mean Platelet Volume 10.7 fL (9.5-13.5); Monocytes Absolute Auto 0.4 10^3/uL (0.3-0.8); Monocytes Percent Auto 9.1 % (1.7-12.0); Neutrophils Absolute Auto 4.2 10^3/uL (1.4-6.5); Platelet Count 67 10^3/uL (150-450); Red Cell Distribution Width 15.5 % (11.0-15.0); White Blood Count 4.9 10^3/uL (4.0-11.0)
[2023-10-17 05:19] LABS: Alanine Aminotransferase 79 U/L (16-63); Albumin Globulin Ratio 0.5; Albumin Level 1.6 g/dL (3.4-5.0); Alkaline Phosphatase 123 U/L (46-116); Aspartate Amino Transferase 25 U/L (15-37); BUN Creatinine Ratio 15.2; Bilirubin Total 0.3 mg/dL (0.2-1.0); Calcium 8.9 mg/dL (8.5-10.1); Carbon Dioxide 13.6 mmol/L (21.0-32.0); Chloride 102 mmol/L (98-107); Estimated GFR (African America 8 (>=60); Estimated GFR (Non-African Ame 6 (>=60); Globulin 3.2 g/dL; Glucose 129 mg/dL (74-106); Potassium 3.6 mmol/L (3.5-5.1); Sodium 133 mmol/L (136-145); Total Protein 4.8 g/dL (6.4-8.2)
[2023-10-17] MEDS: LEVOTHYROXINE SODIUM 75 MCG TABLET PO (05:39)
[2023-10-17] MEDS: OMEPRAZOLE 20 MG CAPSULE.DR PO (05:39)
[2023-10-17] MEDS: 0.9 % SODIUM CHLORIDE 1,000 ML 100 ML IV (07:24)
[2023-10-17] MEDS: VANCOMYCIN HCL 7,500 MG/150 ML BOTTLE 125 MG PO (09:02)
[2023-10-17] MEDS: ASPIRIN 81 MG TABLET.DR PO (09:03)
[2023-10-17] MEDS: VENLAFAXINE HCL ER 37.5 MG CAPSULE PO (09:03)
[2023-10-17] MEDS: CARVEDILOL 12.5 MG TABLET PO (09:03)
[2023-10-17] MEDS: CHOLECALCIFEROL (VITAMIN D3) 25 MCG/1,000 UNITS TABLET 50 MCG PO (09:03)
[2023-10-17] MEDS: SOLIFENACIN SUCCINATE 10 MG TABLET PO (09:03)
[2023-10-17] MEDS: FINASTERIDE 5 MG TABLET PO (09:03)
[2023-10-17] MEDS: CLOBETASOL PROPIONATE 0.05% CREAM 15 GRAM TUBE 1 APPLIC TOPICAL (09:06)
[2023-10-17] MEDS: HEPARIN SODIUM (PORCINE) 5,000 UNIT/ML VIAL 5000 UNIT SUBQ (09:13)
[2023-10-17] MEDS: FERROUS SULFATE 325 MG TABLET PO (09:13)
--- NOTE | 2023-10-17 09:52 | PM.DS1 ---
DS: Providers Provider Date of admission: 10/14/23 21:24 Primary care physician: Non-Staff PhysicianMD Admitting clinician: Shaikh Arturo Attending physician on admission: Shaikh Arturo Consults: 10/14/23 21:27 Consult to Pharmacy Routine Consulting Provider: Reason for consultation: Levaquin dose; Hx ESRD please Has provider been notified: No 10/15/23 Consult to Wound Care Routine Consulting Provider: Deven Guthrie Reason for consultation: right buttock wound Has provider been notified: No Attending physician on discharge: Shaikh Arturo Discharging clinician: Shaikh Arturo Anticipated date of discharge: 10/17/23 DS: Diagnosis Discharge Diagnosis (1) Sepsis: Assessment and plan: stable now, will d/c on oral abx Qualifiers: Sepsis type: Pseudomonas Sepsis acute organ dysfunction status: without acute organ dysfunction Qualified Code(s): A41.52 - Sepsis due to Pseudomonas (2) Bacteremia due to Pseudomonas: Assessment and plan: repeat blood cx ordered. need to follow up as outpatient to ensure they are negative. Will d/c on oral levaquin (3) Urinary tract infection: Assessment and plan: due to pseudomonas and associated with indwelling catheter Qualifiers: Encounter type: subsequent encounter Indwelling urinary catheter type: indwelling urethral catheter Urinary tract infection type: catheter-associated UTI Qualified Code(s): T83.511D - Infection and inflammatory reaction due to indwelling urethral catheter, subsequent encounter; N39.0 - Urinary tract infection, site not specified (4) Lactic acidosis: Assessment and plan: resolved (5) Hyperkalemia: Assessment and plan: resolved (6) C. difficile colitis: Assessment and plan: recent c diff. 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 c/w home meds Qualifiers: Coronary Disease-Associated Artery/Lesion type: [place] artery [place] vs. transplanted heart: [place] heart Associated angina: without angina Qualified Code(s): I25.10 - Atherosclerotic heart disease of [place] coronary artery without angina pectoris (9) Psoriasiform eczema: (10) Anemia in CKD (chronic kidney disease): Assessment and plan: F/u and monitor. Qualifiers: Chronic kidney disease stage: stage 5, not on chronic dialysis Qualified Code(s): N18.5 - Chronic kidney disease, stage 5; D63.1 - Anemia in chronic kidney disease (11) Chronic indwelling Wooten catheter: Assessment and plan: routine catheter care (12) CKD (chronic kidney disease) stage 5, GFR less than 15 ml/min: Assessment and plan: worsening and I feel that he has reached a point where he will need HD as outpatient. DS: Summary Hospital Course Hospital Course: 73-year-old male with chronic indwelling catheter, bedbound because of prior CVA presented to ER with nausea, vomiting, fever, chills and was found to have sepsis secondary to UTI. He was treated with IV fluids, IV antibiotics. His blood culture is positive for Pseudomonas. Repeat blood cultures ordered today to ensure resolution. He is doing much better and is medically stable for discharge. Time Spent with Patient Time attestation: Total time spent providing and/or coordinating discharge services: Exam Constitutional Vital Signs, click to edit/add: Last Vital Signs Temp 97.1 F L 10/17/23 04:24 Pulse 71 10/17/23 08:00 Resp 18 10/17/23 04:24 BP 125/66 10/17/23 04:24 Pulse Ox 98 10/17/23 04:24 O2 Del Method Room Air 10/17/23 04:24 DS: Data Data Completed and Pending Labs on day of discharge: Labs from last 24 hours 10/17/23 10/16/23 10/16/23 04:10 21:20 16:58 WBC 4.9 RBC 2.50 L Hgb 7.3 L Hct 23.0 L* MCV 92.0 MCH 29.2 MCHC 31.7 RDW 15.5 H Plt Count 67 L MPV 10.7 Neut % (Auto) 86.0 H Lymph % (Auto) 3.5 L [place] % (Auto) 9.1 Eos % (Auto) 0.8 L Baso % (Auto) 0.2 Neut # (Auto) 4.2 Lymph # (Auto) 0.2 L [place] # (Auto) 0.4 Eos # (Auto) 0.0 Baso # (Auto) 0.0 Abs Immat Gran (auto) 0.02 Imm/Tot Granulo (auto) 0.4 Sodium 133 L Potassium 3.6 Chloride 102 Carbon Dioxide 13.6 L Anion Gap 21.0 BUN 125.0 H* Creatinine 8.23 H* Est GFR ( Amer) 8 L Est GFR (Non-Af Amer) 6 L BUN/Creatinine Ratio 15.2 Glucose 129 H Calcium 8.9 Total Bilirubin 0.3 AST 25 ALT 79 H Alkaline Phosphatase 123 H Total Protein 4.8 L Albumin 1.6 L Globulin 3.2 Albumin/Globulin Ratio 0.5 POC Glucose 125 H 185 H 10/16/23 11:22 WBC RBC Hgb Hct MCV MCH MCHC RDW Plt Count MPV Neut % (Auto) Lymph % (Auto) [place] % (Auto) Eos % (Auto) Baso % (Auto) Neut # (Auto) Lymph # (Auto) [place] # (Auto) Eos # (Auto) Baso # (Auto) Abs Immat Gran (auto) Imm/Tot Granulo (auto) Sodium Potassium Chloride Carbon Dioxide Anion Gap BUN Creatinine Est GFR ( Amer) Est GFR (Non-Af Amer) BUN/Creatinine Ratio Glucose Calcium Total Bilirubin AST ALT Alkaline Phosphatase Total Protein Albumin Globulin Albumin/Globulin Ratio POC Glucose 124 H Preliminary micro results at discharge 10/14/23 18:10 Urine Culture - Preliminary Urine,Clean Catch Klebsiella pneumoniae Pseudomonas aeruginosa Proteus mirabilis Discharge Plan Discharge Disposition: Home, Self-Care Condition: Fair Discharge Medications: New levofloxacin 250 mg tablet 250 mg PO Q48H 10 Days Qty: 5 0RF Continued triamcinolone acetonide 0.1 % ointment 1 applic topical BID [place] Saline 0.65 % aerosol,spray 2 spray intranasal QID PRN (Reason: dry nasal passages) ixekizumab 80 mg/mL syringe See Rx Instructions subcut .COMPLEX Rx Instructions: subcutaneously 160MG SQ ONCE, THEN 80MG SQ EVERY 2 WEEKS; clobetasol 0.05 % cream 1 applic topical BID Rx Instructions: TO UPPER ARM NODULES PER [facility] nitroglycerin 0.4 mg tablet, sublingual 0.4 mg sublingual Q5M PRN (Reason: chest pain) Rx Instructions: do not exceed 3 doses per episode bacitracin zinc 500 unit/gram ointment 1 applic topical DAILY PRN (Reason: skin irritation) trazodone 100 mg tablet 100 mg PO .QHS venlafaxine 37.5 mg capsule,extended release 24hr 37.5 mg PO DAILY loratadine [Allergy Relief (loratadine)] 10 mg tablet 10 mg PO .QOD Rx Instructions: QOD PER [facility] PRATER atorvastatin 80 mg tablet 80 mg PO .QHS darifenacin 15 mg tablet extended release 24 hr 15 mg PO DAILY [facility] D[employer] Paste 1 applic topical .COMPLEX Rx Instructions: 1 applic topically TWICE A WEEK ON FRIDAY AND FRIDAY; carvedilol 12.5 mg tablet 12.5 mg PO BID Rx Instructions: must administer with a meal/food darbepoetin danielle in polysorbat 100 mcg/mL solution 100 mcg subcut QWEEK albuterol 90 mcg/actuation aerosol 180 mcg inhalation QID PRN (Reason: shortness of breath or wheezing) Rx Instructions: 2 PUFFS QID PRN PER [facility] PR[facility] calcitriol 0.25 mcg capsule 0.25 mcg PO .3 TIMES WEEK Rx Instructions: FRIDAY, FRIDAY AND FRIDAY PER [facility] PRATER potassium citrate-citric acid 1,100-334 mg/5 mL solution 30 ml PO DAILY zinc oxide 20 % ointment 1 applic topical DAILY PRN (Reason: skin irritation) hydrophilic cream Cream 1 applic topical BID miconazole nitrate [Remedy Phytoplex Antifungal] 2 % powder 1 applic topical DAILY PRN (Reason: fungal) omeprazole 20 mg tablet,delayed release (DR/EC) 20 mg PO DAILY melatonin 3 mg tablet 3 mg PO .QHS PRN (Reason: sleep) finasteride 5 mg tablet 5 mg PO DAILY polyethylene glycol 3350 [Miralax] 17 gram/dose powder 17 g PO DAILY PRN (Reason: constipation) Ozempic 2 mg/dose (8 mg/3 mL) pen injector 0.5 mg subcut QWEEK ferrous sulfate 325 mg (65 mg iron) tablet,delayed release (DR/EC) 325 mg PO .QOD Rx Instructions: EVERY OTHER DAY PER [facility] PRATER AsperFlex (lidocaine HCl) 4 % ointment 1 ea topical TID PRN (Reason: pain) lidocaine HCl 2 % gel 1 applic topical DAILY PRN (Reason: pain) Patient Comments: urethral pain pramoxine 1 % lotion 1 applic topical TID PRN (Reason: itching) acetaminophen [Tylenol] 325 mg capsule 975 mg PO TID PRN (Reason: fever or pain) aspirin [Adult Low Dose Aspirin] 81 mg tablet,delayed release (DR/EC) 81 mg PO DAILY guaifenesin 600 mg tablet extended release 12hr 600 mg PO BID PRN (Reason: congestion) sennosides 8.6 mg capsule 8.6 mg PO DAILY PRN (Reason: constipation) levothyroxine 75 mcg capsule 75 mcg PO QAM cholecalciferol (vitamin D3) 50 mcg (2,000 unit) capsule 2,000 unit PO DAILY multivitamin Tablet 1 tab PO DAILY Rx Instructions: WITH MINERALS, NO VITAMIN K PER [facility] PRATER Activity: increase activity as tolerated Diet: advance to your usual diet Print Language: Greenlandic Forms: Portal Instructions Follow Up Appointments: f/u with PCP in one week
[2023-10-17 10:15] LABS: Phosphorus 8.9 mg/dL (2.6-4.7)
--- NOTE | 2023-10-17 11:05 | PC.NURSE ---
has been attempting to make a follow up appt with PCP and nephrology since patient is discharging today. has been on the phone for almost an hour trying to get these appointments scheduled and keep being transferred and given wrong phone numbers of who to contact. When finally getting a hold of the correct nephrology office, i was given a voicemail as they are out of the office due to the holiday. Generation Technologist put phone numbers on discharge paperwork and patient willneed to call and schedule appointments on Friday when offices are open.
[2023-10-17 11:13] LABS: Glucometer 156 mg/dL (74-106)
[2023-10-17] MEDS: INSULIN ASPART 300 UNIT/3 ML PEN SUBQ (11:37)
--- NOTE | 2023-10-17 11:45 | CM.NOTE ---
Rounds made with Dr. Morris. Dr Morris discussed labs and need for repeat blood cx and also discussed at length the need for patient to consider dialysis soon and not to wait until it is an emergency. [place] verbalized understanding. Plan is for discharge home today on po antibiotics.
--- NOTE | 2023-10-17 13:49 | SWNOTE1 ---
SW received a call and [facility] had to push fern picker time back to 4:00. SW notified nursing.
--- NOTE | 2023-10-20 14:02 | CM.DCFOLLOWU ---
1st attempt 10/20/23
--- NOTE | 2023-10-21 13:23 | CM.DCFOLLOWU ---
Patient is down in our ED currently
== END 2023-10-17 16:32 | disposition home health service (06) | DRG 698 ==
LOC: ER 20:52 → MS 21:29
PROVIDERS: Emergency Medicine; Nurse Practitioner; Nurse Practitioner Acute Care; Admitting Provider Internal Medicine; Emergency Provider Emergency Medicine; Visit Provider Internal Medicine
DX: T83.511A Infection and inflammatory reaction due to indwelling urethral catheter, initial encounter (principal); A41.52 Sepsis due to Pseudomonas; A41.81 Sepsis due to Enterococcus; A41.59 Other Gram-negative sepsis; I12.0 Hypertensive chronic kidney disease with stage 5 chronic kidney disease or end stage renal disease; N18.5 Chronic kidney disease, stage 5; G82.20 Paraplegia, unspecified; A04.72 Enterocolitis due to Clostridium difficile, not specified as recurrent; E87.20 Acidosis, unspecified; Z68.45 Body mass index [BMI] 70 or greater, adult; N39.0 Urinary tract infection, site not specified; Z87.891 Personal history of nicotine dependence; E87.5 Hyperkalemia; I25.10 Atherosclerotic heart disease of native coronary artery without angina pectoris; Z95.5 Presence of coronary angioplasty implant and graft; E11.22 Type 2 diabetes mellitus with diabetic chronic kidney disease; E03.9 Hypothyroidism, unspecified; E78.5 Hyperlipidemia, unspecified; D63.1 Anemia in chronic kidney disease; Z74.01 Bed confinement status; Z86.73 Personal history of transient ischemic attack (TIA), and cerebral infarction without residual deficits; Z79.85 Long-term (current) use of injectable non-insulin antidiabetic drugs; L30.8 Other specified dermatitis; E66.01 Morbid (severe) obesity due to excess calories
CPT/HCPCS: 36415; 71045; 80048; 80053; 81001; 82948; 83605; 84100; 85007; 85025; 85027; 87040; 87076; 87086; 87150; 87186; 93005; 96365; 96366; 96367; 96372; 96375; 99285; J0696; J0744; J2405

== ENCOUNTER 2023-10-20 14:23 | Emergency (ER) | payer OTHER, SELFPAY ==
[2023-10-20] VITALS (82 sets, daily range): BP systolic 71–142; BP diastolic 47–87; PULSE 72–98; TEMP 36.4–36.6; O2SAT 95–100; BMI 37.2
--- NOTE | 2023-10-20 14:42 | CT_ITS ---
[address] [address] Patient Name: MATT HONEYCUTT MRN: [id number] date: 1950 Sex: M Assigned Patient Location: ER Current Patient Location: ER Accession/Order Number: [id number] Exam Date: 10/20/2023 15:03 Report Date: 10/20/2023 15:36 At the request of: FUAD KEVIN Procedure: CT abdomen pelvis wo con EXAMINATION: CT abdomen pelvis wo con HISTORY: Abdominal pain COMPARISON: 09/11/2023 TECHNIQUE: Axial, Coronal, and Sagittal images were created without IV contrast. Dose reduction techniques were achieved by using automated exposure control and/or adjustment of mA and/or kV according to patient size and/or use of iterative reconstruction technique. FINDINGS: LUNG BASES: 1.5 cm right pleural effusion. Right basilar atelectasis. Coronary artery calcifications LIVER: No enlargement, atrophy, abnormal density, or significant focal lesion. BILIARY: Surgical clips from cholecystectomy PANCREAS: Diffuse atrophy SPLEEN: No enlargement or focal lesion. ADRENALS: Bilateral fatty masses KIDNEYS: New stranding and fluid collection identified along the superior pole of the right kidney. Bilateral cortical atrophy. Bilateral nephrolithiasis staghorn-type calculus on the right. Bilateral double-J ureteral stents with calcifications in the right renal pelvis BOWEL/MESENTERY: Moderate gaseous distention of the stomach and proximal duodenum. Some mild dilation of small bowel loops in the ventral lower abdominal measuring up to 3.1 cm. AORTA/VASCULAR: No aortic aneurysm. Extensive calcific atherosclerosis RETROPERITONEUM: No mass or adenopathy. LYMPH NODES: No adenopathy. URINARY BLADDER: Balloon catheter within a nondistended urinary bladder PELVIC ORGANS: No visible mass. Pelvic organs appropriate for patient age. ABDOMINAL WALL: No mass or hernia. BONES: No bony lesion or fracture. Extensive degenerative changes with calcification anterior longitudinal ligament. Foraminal stenosis at multiple levels OTHER: Negative. CT/CT abdomen pelvis wo con IMPRESSION: Bilateral double-J ureteral stents with new right hydronephrosis. Inflammatory stranding of the right kidney most significant along the upper pole where there is free fluid, this could represent a small urinary leak from obstruction Gaseous distention of the stomach, proximal duodenum and scattered small and large bowel loops, overall nonobstructive bowel gas pattern Electronically authenticated by: NIGEL FISH Date: 10/20/2023 15:36
--- NOTE | 2023-10-20 14:43 | XR_ITS ---
The [address] [address] Patient Name: MATT HONEYCUTT MRN: [id number] date: 1950 Sex: M Assigned Patient Location: ER Current Patient Location: ER Accession/Order Number: [id number] Exam Date: 10/20/2023 15:03 Report Date: 10/20/2023 15:25 At the request of: FUAD KEVIN Procedure: XR chest 1V EXAMINATION: XR chest 1V HISTORY: abdominal pain COMPARISON: 10/14/2023 TECHNIQUE: AP portable FINDINGS: LUNGS: No significant pulmonary parenchymal abnormalities. VASCULATURE: No increased pulmonary vasculature. PLEURA: No pneumothorax, effusion, or pleural thickening. CARDIAC: No cardiomegaly or cardiac silhouette abnormality. MEDIASTINUM: No visible mass or adenopathy. BONES: No fracture or visible bone lesion. OTHER: Negative. XR/XR chest 1V IMPRESSION: No acute cardiopulmonary process Electronically authenticated by: NIGEL FISH Date: 10/20/2023 15:25
--- NOTE | 2023-10-20 14:43 | ED.GENADUL1 ---
HPI HPI - General Adult General Chief complaint: Urogenital-Male Stated complaint: ABDOMINAL PAIN Time Seen by Provider: 10/20/23 14:36 Mode of arrival: ambulance History of Present Illness HPI narrative: Patient is a 73-year-old male who presents to the emergency department by EMS. This patient is well-known to this emergency department, he was discharged from an inpatient admission 3 days ago for UTI. He has chronic severe kidney disease although he does not receive dialysis. He has a gynecologist at the [facility]. He presents to the ER today with decreased bowel movements, generalized abdominal pain and decreased output from his Wooten catheter. Patient has a chronic indwelling Wooten catheter, there is noted to be cloudy, white urine from his Wooten catheter tubing. He reports diffuse abdominal pain with no fevers or vomiting. He does not report chest pain or shortness of breath. He reports general weakness. Patient's daughter is apparently very upset that the patient was not transported directly to the [facility] by EMS. Patient states he had a bowel movement the day he left the hospital, he was discharged on 10/17/2023 Related Data Home Medications ?Medication ?Instructions ?Recorded ?Confirmed acetaminophen 325 mg capsule 975 mg PO TID PRN fever or pain 08/17/23 10/14/23 (Tylenol) albuterol 90 mcg/actuation aerosol 180 mcg inhalation QID PRN 08/17/23 10/15/23 inhaler shortness of breath or wheezing aspirin 81 mg tablet,delayed 81 mg PO DAILY 08/17/23 10/14/23 release (Adult Low Dose Aspirin) atorvastatin 80 mg tablet 80 mg PO .QHS 08/17/23 10/14/23 bacitracin zinc 500 unit/gram 1 applic topical DAILY PRN skin 08/17/23 10/14/23 topical ointment irritation calcitriol 0.25 mcg capsule 0.25 mcg PO .3 TIMES WEEK 08/17/23 10/14/23 carvedilol 12.5 mg tablet 12.5 mg PO BID 08/17/23 10/14/23 cholecalciferol (vitamin D3) 50 2,000 unit PO DAILY 08/17/23 10/14/23 mcg (2,000 unit) capsule clobetasol 0.05 % topical cream 1 applic topical BID 08/17/23 10/15/23 darbepoetin danielle in polysorbat 100 100 mcg subcut QWEEK 08/17/23 10/15/23 mcg/mL in polysorbate injection darifenacin 15 mg tablet,extended 15 mg PO DAILY 08/17/23 10/15/23 release 24 hr ferrous sulfate 325 mg (65 mg 325 mg PO .QOD 08/17/23 10/15/23 iron) tablet,delayed release finasteride 5 mg tablet 5 mg PO DAILY 08/17/23 10/15/23 guaifenesin 600 mg tablet, 600 mg PO BID PRN congestion 08/17/23 10/15/23 extended release 12 hr hydrophilic cream 1 applic topical BID 08/17/23 10/15/23 levothyroxine 75 mcg capsule 75 mcg PO QAM 08/17/23 10/15/23 lidocaine HCl 2 % topical gel 1 applic topical DAILY PRN pain 08/17/23 10/15/23 lidocaine HCl 4 % topical ointment 1 ea topical TID PRN pain 08/17/23 10/15/23 (AsperFlex (lidocaine HCl)) loratadine 10 mg tablet (Allergy 10 mg PO .QOD 08/17/23 10/15/23 Relief (loratadine)) melatonin 3 mg tablet 3 mg PO .QHS PRN sleep 08/17/23 10/15/23 miconazole nitrate 2 % topical 1 applic topical DAILY PRN fungal 08/17/23 10/15/23 powder (Remedy Phytoplex Antifungal) multivitamin 1 tab PO DAILY 08/17/23 10/15/23 nitroglycerin 0.4 mg sublingual 0.4 mg sublingual Q5M PRN chest 08/17/23 10/15/23 tablet pain omeprazole 20 mg tablet,delayed 20 mg PO DAILY 08/17/23 10/15/23 release polyethylene glycol 3350 17 17 g PO DAILY PRN constipation 08/17/23 10/15/23 gram/dose oral powder (Miralax) potassium citrate-citric acid 30 ml PO DAILY 08/17/23 10/15/23 1,100 mg-334 mg/5 mL oral solution pramoxine 1 % lotion 1 applic topical TID PRN itching 08/17/23 10/15/23 semaglutide 2 mg/dose (8 mg/3 mL) 0.5 mg subcut QWEEK 08/17/23 10/15/23 subcutaneous pen injector (Ozempic) sennosides 8.6 mg capsule 8.6 mg PO DAILY PRN constipation 08/17/23 10/15/23 trazodone 100 mg tablet 100 mg PO .QHS 08/17/23 10/15/23 venlafaxine 37.5 mg 37.5 mg PO DAILY 08/17/23 10/15/23 capsule,extended release 24 hr wound dressings (Triad Wound 1 applic topical .COMPLEX 08/17/23 10/15/23 Dressing paste) zinc oxide 20 % topical ointment 1 applic topical DAILY PRN skin 08/17/23 10/15/23 irritation ixekizumab 80 mg/mL subcutaneous See Rx Instructions subcut .COMPLEX 09/11/23 10/15/23 syringe sodium chloride 0.65 % nasal spray 2 spray intranasal QID PRN dry 09/11/23 10/15/23 aerosol (Piercy Saline) nasal passages triamcinolone acetonide 0.1 % 1 applic topical BID 09/11/23 10/15/23 topical ointment Previous Rx's ?Medication ?Instructions ?Recorded levofloxacin 250 mg tablet 250 mg PO Q48H 10 days #5 tabs 10/17/23 Allergies Allergy/AdvReac Type Severity Reaction Status Date / Time Penicillins Allergy Mild Rash Verified 09/25/23 15:39 ferumoxides Allergy Rash Verified 09/25/23 15:39 sulfamethoxazole AdvReac Mild Nausea Verified 09/25/23 15:39 [From Sulfamethoxazole-Trimethoprim] trimethoprim AdvReac Mild Nausea Verified 09/25/23 15:39 [From Sulfamethoxazole-Trimethoprim] Opioid HPI Opioid Management Most Recent Opioid Data: Last Pain Scale 6 10/20/23 15:01 Last Pain Assessment 10/17/23 15:00 Last ORT Total Score 0 10/14/23 22:27 Last ORT Risk Category Low Risk 10/14/23 22:27 Review of Systems ROS Constitutional Denies: fever or chills Ears, nose, mouth, and throat Denies: throat pain or nasal congestion Cardiovascular Denies: chest pain Respiratory Denies: shortness of breath or cough Gastrointestinal Reports: abdominal pain; Denies: nausea or vomiting Genitourinary Denies: painful urination Musculoskeletal Denies: back pain Integumentary/Breast Denies: rash Neurological Denies: headache Hematologic/Lymphatic Denies: easy bruising or easy bleeding [facility] Medical History (Updated 10/20/23 @ 17:55 by KENDRA Avendano) Accidental fall from bed ?W06.XXXA - Fall from bed, initial encounter (ICD-10) Contusion of left shoulder ?S40.012A - Contusion of left shoulder, initial encounter (ICD-10) Contusion of knee, left ?S80.02XA - Contusion of left knee, initial encounter (ICD-10) Contusion of back ?S20.229A - Contusion of unspecified back wall of thorax, initial encounter (ICD-10) Thyroid nodule ?E04.1 - Nontoxic single thyroid nodule (ICD-10) Chronic renal disease ?N18.9 - Chronic kidney disease, unspecified (ICD-10) C. 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 - Other specified dermatitis (ICD-10) CAD (coronary artery disease) ?I25.10 - Atherosclerotic heart disease of [place] coronary artery without angina pectoris (ICD-10) T2DM (type 2 diabetes mellitus) ?E11.9 - Type 2 diabetes mellitus without complications (ICD-10) Hypothyroid ?E03.9 - Hypothyroidism, unspecified (ICD-10) HLD (hyperlipidemia) ?E78.5 - Hyperlipidemia, unspecified (ICD-10) HTN (hypertension) ?I10 - Essential (primary) hypertension (ICD-10) Anemia in CKD (chronic kidney disease) ?N18.9 - Chronic kidney disease, unspecified (ICD-10) ?D63.1 - Anemia in chronic kidney disease (ICD-10) Chronic indwelling Wooten catheter ?Z97.8 - Presence of other specified devices (ICD-10) Paraplegia ?G82.20 - Paraplegia, unspecified (ICD-10) Bedbound ?Z74.01 - Bed confinement status (ICD-10) H/O: CVA (cerebrovascular accident) ?Z86.73 - Personal history of transient ischemic attack (TIA), and cerebral infarction without residual deficits (ICD-10) CKD (chronic kidney disease) stage 5, GFR less than 15 ml/min ?N18.5 - Chronic kidney disease, stage 5 (ICD-10) Surgical History (Updated 09/11/23 @ 03:19 by Bethany Amor) H/O heart artery stent ?Z95.5 - Presence of coronary angioplasty implant and graft (ICD-10) Social History Within the past year, how often did you have a drink containing alcohol: never Score interpretation: A score less than 4 is consistent with normal alcohol consumption. Smoking status: Former smoker Non-prescribed substance use: denies use Highest level of school completed/degree received: Associate degree: occupational, technical, vocational program Are you now , , , , never or living with a partner: don't know In a typical week, how many times do you talk on the telephone with family, friends, or neighbors: never How often do you get together with friends or relatives: never How often do you attend mormon or orthodoxy services: never Little interest or pleasure in doing things: not at all Feeling down, depressed, or hopeless: not at all Do you think of yourself as: straight/heterosexual Gender Identity: male Exam Narrative Exam Narrative: Gen.: Morbidly obese male, answers questions but is drowsy Head: Normocephalic, atraumatic ENT: Moist mucous membranes Respiratory: No respiratory distress, lungs clear bilaterally Cardio: Regular rate and rhythm Gastrointestinal: Abdomen is soft, No point tenderness to palpation, no guarding or rebound; Wooten catheter in place with cloudy/white urine in tubing Extremities: 3+ pitting edema to the bilateral lower extremities Psych: Normal mood and affect Neuro: No focal neuro deficit Skin: Warm, dry, intact Constitutional Vital Signs, click to edit/add: Last Vital Signs Temp 97.7 F 10/20/23 17:38 Pulse 85 10/20/23 17:38 Resp 18 10/20/23 17:38 BP 119/57 10/20/23 17:38 Pulse Ox 99 10/20/23 17:38 O2 Del Method Room Air 10/20/23 14:26 Course Vital Signs Vital signs: Vital Signs Temperature 97.5 F L 10/20/23 14:26 Pulse Rate 86 10/20/23 14:26 Respiratory Rate 24 H 10/20/23 14:26 Blood Pressure 94/47 L 10/20/23 14:26 Pulse Oximetry 98 10/20/23 14:26 Oxygen Delivery Method Room Air 10/20/23 14:26 Temperature 97.7 F 10/20/23 17:38 Pulse Rate 85 10/20/23 17:38 Respiratory Rate 18 10/20/23 17:38 Blood Pressure 119/57 10/20/23 17:38 Pulse Oximetry 99 10/20/23 17:38 Oxygen Delivery Method Room Air 10/20/23 14:26 Medical Decision Making MDM Narrative Medical decision making narrative: Patient with diffuse edema, initially hypotensive but with otherwise stable vital signs. He also had multiple IV sticks from previous admission. Initial IV was placed by nursing staff and a second IV was established by attending physician. Labs show the patient has critical hematocrit which is slightly improved from discharge 3 days ago, however based on the patient's hypotension and weakness in addition to low hematocrit, blood consent was obtained and the patient was given 2 units of IV PRBCs. He was also found to have acute kidney injury with creatinine 10.71 and BUN 176, almost double where his creatinine has been in the past. Discussed with the patient and family member at bedside, his daughter who is his POA. We contacted the [facility] at the patient's daughter's request, they are unable to take the patient for at least a day. Given his constellation of symptoms, we feel he requires a more emergent transfer, he may require dialysis, he does not have an AV fistula in place so a transfer to the [facility] at this time may not be appropriate. Discussed this with the patient and family, they would like the patient to still be transferred to [place] and request [facility]. Blood pressure improved with 1 L of IV fluids in addition to blood administration. Patient's Wooten catheter was changed in the ER due to significant sediment and cloudy urine in the ER. Since his Wooten catheter was changed on arrival, the patient has not produced a urine specimen although given his previous urine culture which was positive for Proteus, Pseudomonas we suspect he continues to have a urinary tract infection and possibly early sepsis given mild leukocytosis and elevated procalcitonin. Blood cultures are pending. Chest x-ray is clear, EKG is normal sinus rhythm. CT of the abdomen and pelvis shows the patient has bilateral ureteral stents and stranding of the right kidney. He was treated with imipenem for coverage of urinary tract and right kidney. Discussed the case with the hospitalist at [facility], Dr. Epps, Who accepted the patient for transfer. Patient with stable vital signs at this time. Critical care time 35 minutes. SHARED APC VISIT, PHYSICIAN ATTESTATION: [id number] I performed a substantive part of the MDM during the patient?s E/M visit. I personally evaluated and examined the patient. I personally made or approved the documented management plan and acknowledge its risk of complications. Medical Records Medical records reviewed: Yes I reviewed the patient's medical records Lab Data Lab results reviewed: Yes I reviewed the patient's lab results Labs: Lab Results 10/20/23 10/20/23 Range/Units 14:43 16:18 WBC 12.0 H (4.0-11.0) 10^3/uL RBC 2.59 L (4.70-6.10) 10^6/uL Hgb 7.6 L (14.0-18.0) g/dL Hct 23.2 L* (42.0-54.0) % MCV 89.6 (80.0-94.0) fL MCH 29.3 (25.9-34.0) pg MCHC 32.8 (29.9-35.2) g/dL RDW 15.4 H (11.0-15.0) % Plt Count 61 L (150-450) 10^3/uL MPV 12.1 (9.5-13.5) fL Seg Neuts % (Manual) 92.0 Band Neutrophils % 1.0 (0-5) % Lymphocytes % (Manual) 4.0 L (20.5-60.0) % Monocytes % (Manual) 3.0 (1.7-12.0) % Eosinophils % (Manual) 0.0 L (0.9-7.0) % Basophils % (Manual) 0.0 L (0.2-2.0) % Neutrophils # (Manual) 11.04 H (1.4-6.5) 10^3/uL Band Neutrophils # 0.1 (0.0-0.3) 10^3/uL Lymphocytes # (Manual) 0.48 L (1.20-3.80) 10^3/uL Monocytes # (Manual) 0.36 (0.30-0.80) 10^3/uL Eosinophils # (Manual) 0.00 (0.00-0.70) 10^3/uL Basophils # (Manual) 0.00 (0.00-0.10) 10^3/uL ESR 22 H (<=20) mm/hr PT 12.0 H (9.0-11.6) sec INR 1.15 VBG pH 7.179 L (7.330-7.430) VBG pCO2 29.4 L (40.0-52.0) mmHg Sodium 132 L (136-145) mmol/L Potassium 4.2 (3.5-5.1) mmol/L Chloride 101 (98-107) mmol/L Carbon Dioxide 12.9 L (21.0-32.0) mmol/L Anion Gap 22.3 BUN 176.0 H* (7.0-18.0) mg/dL Creatinine 10.71 H* (0.70-1.30) mg/dL Est GFR ( Amer) 6 L (>=60) Est GFR (Non-Af Amer) 5 L (>=60) BUN/Creatinine Ratio 16.4 Glucose 153 H (74-106) mg/dL Lactate 1.1 (0.4-2.0) mmol/L Calcium 9.0 (8.5-10.1) mg/dL Total Bilirubin 0.3 (0.2-1.0) mg/dL AST 20 (15-37) U/L ALT 59 (16-63) U/L Alkaline Phosphatase 142 H (46-116) U/L Troponin I High Sens 61.3 (4.0-76.1) pg/mL C-Reactive Protein 19.45 H (<=0.50) mg/dL NT-Pro-B Natriuret Pep >49353.0 H* (<=900.0) pg/mL Total Protein 4.9 L (6.4-8.2) g/dL Albumin 1.6 L (3.4-5.0) g/dL Globulin 3.3 g/dL Albumin/Globulin Ratio 0.5 Lipase 27.0 (16.0-77.0) U/L Procalcitonin 4.38 H (0.00-0.50) ng/mL TSH 1.151 (0.358-3.740) uIU/mL Blood Type O Negative Antibody Screen Negative Crossmatch See Detail Imaging Data Chest x-ray: Radiologist's impression: ITS Impressions Abdomen/Pelvis CT 10/20/23 14:42 IMPRESSION: Bilateral double-J ureteral stents with new right hydronephrosis. Inflammatory stranding of the right kidney most significant along the upper pole where there is free fluid, this could represent a small urinary leak from obstruction Gaseous distention of the stomach, proximal duodenum and scattered small and large bowel loops, overall nonobstructive bowel gas pattern Electronically authenticated by: NIGEL FISH Date: 10/20/2023 15:36 Chest X-Ray 10/20/23 14:43 IMPRESSION: No acute cardiopulmonary process Electronically authenticated by: NIGEL FISH Date: 10/20/2023 15:25 ECG Data Attestation: I personally reviewed and interpreted this ECG as follows: (Normal sinus rhythm at a rate of 84 with occasional PVCs, no acute ST elevation,EKG reviewed by attending physician) Critical Care Time Critical Care Time Critical Care Time: Yes Total Critical Care Time: 35 Attestation: 35 min for critical diagnosis, administration of blood and transfer to tertiary care Discharge Plan Discharge Chief Complaint: Urogenital-Male Clinical Impression: Anemia requiring transfusions, Acute kidney failure, Acute UTI Patient Disposition: [facility] Time of Disposition Decision: 17:54 Discharge Location: [facility] Condition: Fair Mode of Transportation: EMS Prescriptions / Home Meds: No Action triamcinolone acetonide 0.1 % ointment 1 applic topical BID Piercy Saline 0.65 % aerosol,spray 2 spray intranasal QID PRN (Reason: dry nasal passages) ixekizumab 80 mg/mL syringe See Rx Instructions subcut .COMPLEX Rx Instructions: subcutaneously 160MG SQ ONCE, THEN 80MG SQ EVERY 2 WEEKS; levofloxacin 250 mg tablet 250 mg PO Q48H 10 Days Qty: 5 0RF clobetasol 0.05 % cream 1 applic topical BID Rx Instructions: TO UPPER ARM NODULES PER [facility] PR[facility] nitroglycerin 0.4 mg tablet, sublingual 0.4 mg sublingual Q5M PRN (Reason: chest pain) Rx Instructions: do not exceed 3 doses per episode bacitracin zinc 500 unit/gram ointment 1 applic topical DAILY PRN (Reason: skin irritation) trazodone 100 mg tablet 100 mg PO .QHS venlafaxine 37.5 mg capsule,extended release 24hr 37.5 mg PO DAILY loratadine [Allergy Relief (loratadine)] 10 mg tablet 10 mg PO .QOD Rx Instructions: QOD PER [facility] PRATER atorvastatin 80 mg tablet 80 mg PO .QHS darifenacin 15 mg tablet extended release 24 hr 15 mg PO DAILY Triad Wound Dressing Paste 1 applic topical .COMPLEX Rx Instructions: 1 applic topically TWICE A WEEK ON FRIDAY AND FRIDAY; carvedilol 12.5 mg tablet 12.5 mg PO BID Rx Instructions: must administer with a meal/food darbepoetin danielle in polysorbat 100 mcg/mL solution 100 mcg subcut QWEEK albuterol 90 mcg/actuation aerosol 180 mcg inhalation QID PRN (Reason: shortness of breath or wheezing) Rx Instructions: 2 PUFFS QID PRN PER [place] [facility] PRATER calcitriol 0.25 mcg capsule 0.25 mcg PO .3 TIMES WEEK Rx Instructions: FRIDAY, FRIDAY AND FRIDAY PER [facility] PR[facility] potassium citrate-citric acid 1,100-334 mg/5 mL solution 30 ml PO DAILY zinc oxide 20 % ointment 1 applic topical DAILY PRN (Reason: skin irritation) hydrophilic cream Cream 1 applic topical BID miconazole nitrate [Remedy Phytoplex Antifungal] 2 % powder 1 applic topical DAILY PRN (Reason: fungal) omeprazole 20 mg tablet,delayed release (DR/EC) 20 mg PO DAILY melatonin 3 mg tablet 3 mg PO .QHS PRN (Reason: sleep) finasteride 5 mg tablet 5 mg PO DAILY polyethylene glycol 3350 [Miralax] 17 gram/dose powder 17 g PO DAILY PRN (Reason: constipation) Ozempic 2 mg/dose (8 mg/3 mL) pen injector 0.5 mg subcut QWEEK ferrous sulfate 325 mg (65 mg iron) tablet,delayed release (DR/EC) 325 mg PO .QOD Rx Instructions: EVERY OTHER DAY PER [facility] PRATER AsperFlex (lidocaine HCl) 4 % ointment 1 ea topical TID PRN (Reason: pain) lidocaine HCl 2 % gel 1 applic topical DAILY PRN (Reason: pain) Patient Comments: urethral pain pramoxine 1 % lotion 1 applic topical TID PRN (Reason: itching) acetaminophen [Tylenol] 325 mg capsule 975 mg PO TID PRN (Reason: fever or pain) aspirin [Adult Low Dose Aspirin] 81 mg tablet,delayed release (DR/EC) 81 mg PO DAILY guaifenesin 600 mg tablet extended release 12hr 600 mg PO BID PRN (Reason: congestion) sennosides 8.6 mg capsule 8.6 mg PO DAILY PRN (Reason: constipation) levothyroxine 75 mcg capsule 75 mcg PO QAM cholecalciferol (vitamin D3) 50 mcg (2,000 unit) capsule 2,000 unit PO DAILY multivitamin Tablet 1 tab PO DAILY Rx Instructions: WITH MINERALS, NO VITAMIN K PER [facility] PRATER Print Language: Lithuanian Referrals: Physician,Non-Staff, MD [Primary Care Provider] - 1 week
[2023-10-20 15:07] LABS: Hemoglobin 7.6 g/dL (14.0-18.0); Mean Corpuscular HGB Conc 32.8 g/dL (29.9-35.2); Mean Corpuscular Hemoglobin 29.3 pg (25.9-34.0); Mean Corpuscular Volume 89.6 fL (80.0-94.0); Mean Platelet Volume 12.1 fL (9.5-13.5); Platelet Count 61 10^3/uL (150-450); Red Blood Count 2.59 10^6/uL (4.70-6.10); Red Cell Distribution Width 15.4 % (11.0-15.0)
[2023-10-20 15:09] LABS: PCO2 VBG 29.4 mmHg (40.0-52.0); pH VBG 7.179 (7.330-7.430)
[2023-10-20 15:23] LABS: Hematocrit 23.2 % (42.0-54.0)
[2023-10-20 15:25] LABS: Erythrocyte Sedimentation Rate 22 mm/hr (<=20)
[2023-10-20 15:29] LABS: INR 1.15
[2023-10-20 15:41] LABS: Alanine Aminotransferase 59 U/L (16-63); Albumin Globulin Ratio 0.5; Albumin Level 1.6 g/dL (3.4-5.0); Alkaline Phosphatase 142 U/L (46-116); Anion Gap 22.3; Aspartate Amino Transferase 20 U/L (15-37); BUN Creatinine Ratio 16.4; Bilirubin Total 0.3 mg/dL (0.2-1.0); C Reactive Protein 19.45 mg/dL (<=0.50); Carbon Dioxide 12.9 mmol/L (21.0-32.0); Chloride 101 mmol/L (98-107); Estimated GFR (African America 6 (>=60); Estimated GFR (Non-African Ame 5 (>=60); Globulin 3.3 g/dL; Glucose 153 mg/dL (74-106); Potassium 4.2 mmol/L (3.5-5.1); Sodium 132 mmol/L (136-145); Thyroid Stimulating Hormone 1.151 uIU/mL (0.358-3.740); Total Protein 4.9 g/dL (6.4-8.2); Troponin I High Sensitivity 61.3 pg/mL (4.0-76.1)
[2023-10-20 15:44] LABS: NT Pro B Type Natriuretic Pept >35000.0 pg/mL (<=900.0)
[2023-10-20 15:45] LABS: Lactate/Lactic Acid 1.1 mmol/L (0.4-2.0)
[2023-10-20 15:46] LABS: Band Neutrophils Absolute 0.1 10^3/uL (0.0-0.3); Lymphocytes Absolute Manual 0.48 10^3/uL (1.20-3.80); Monocytes Absolute Manual 0.36 10^3/uL (0.30-0.80); Segmented Neut Absolute Manual 11.04 10^3/uL (1.4-6.5)
[2023-10-20 15:49] LABS: PROCALCITONIN 4.38 ng/mL (0.00-0.50)
[2023-10-20] MEDS: 0.9 % SODIUM CHLORIDE 1,000 ML 500 ML IV (15:49)
--- NOTE | 2023-10-20 16:50 | ECG_ITS ---
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
--- NOTE | 2023-10-20 16:54 | PC.NURSE ---
WHEN THIS NURSE ENTERS ROOM IV STOPPED FLUIDS STOPPED THIS NURSE DID NOT STOP IV OR NOR DID ANY STAFF THAT WAS IN THE ROOM - PTS DAUGHTER DOESNT SAY ANYTHING OTHER THAN IT KEPT BEEPING
[2023-10-20] MEDS: IMIPENEM/CILASTATIN SODIUM 1,000 MG in 0.9 % SODIUM CHLORIDE 100 ML 100 MG IV (17:58)
[2023-10-20 18:16] LABS: Bilirubin Urine NEGATIVE (NEGATIVE); Blood Urine LARGE (NEGATIVE); Clarity Urine CLOUDY (CLEAR); Color Urine YELLOW (YELLOW); Glucose Urine UA NEGATIVE (NEGATIVE); Ketones Urine NEGATIVE (NEGATIVE); Leukocyte Esterase Urine MODERATE (NEGATIVE); Nitrite Urine NEGATIVE (NEGATIVE); Protein Urine 100 mg/dL (NEG/TRACE); Specific Gravity Urine 1.015 (1.005-1.025); Urobilinogen Urine 0.2 EU/dL (0.2-1.0)
[2023-10-20 18:19] LABS: Urine Microscopic Indicated YES
[2023-10-20 18:29] LABS: Bacteria Urine LARGE #/HPF (NONE SEEN); Cast Seen? NONE SEEN #/LPF (NONE SEEN); Crystals Seen? None Seen #/HPF (None Seen); Mucus Urine TRACE (NONE SEEN); RBC Urine 20-50 #/HPF (0-2); Squamous Epithelial Cell Urine RARE #/LPF (NONE/RARE); Transitional Epi Cells Urine RARE #/LPF (NONE SEEN); WBC Urine >100 #/HPF (NONE SEEN)
[2023-10-20 18:30] LABS: Urine Culture Indicated YES
--- NOTE | 2023-10-20 19:49 | PC.NURSE ---
Scant amount of urine out put in solomon catheter bag.
[2023-10-21] VITALS (45 sets, daily range): BP systolic 103–136; BP diastolic 52–74; PULSE 77–89; O2SAT 95–100
--- NOTE | 2023-10-21 00:01 | PC.NURSE ---
Received call from [facility] transfer [place], updates given. Transfer center relays that there are 30 borders in their ED ahead of patient as well as many on wait list so likely no bed availability any time soon. Dr. Figueroa notified.
[2023-10-21 07:14] LABS: A. calcoaceticus-baumannii Cpx NOT DETECTED (NOT DETECTE); Candida albicans NOT DETECTED (NOT DETECTE); Candida auris NOT DETECTED (NOT DETECTE); Candida glabrata NOT DETECTED (NOT DETECTE); Candida krusei NOT DETECTED (NOT DETECTE); Candida parapsilosis NOT DETECTED (NOT DETECTE); Candida tropicalis NOT DETECTED (NOT DETECTE); Cryptococcus neoformans/gattii NOT DETECTED (NOT DETECTE); Enterobacter cloacae complex NOT DETECTED (NOT DETECTE); Enterococcus faecium NOT DETECTED (NOT DETECTE); Haemophilus influenzae NOT DETECTED (NOT DETECTE); Klebsiella aerogenes NOT DETECTED (NOT DETECTE); Klebsiella pneumoniae group NOT DETECTED (NOT DETECTE); Listeria monocytogenes NOT DETECTED (NOT DETECTE); Neisseria meningitidis NOT DETECTED (NOT DETECTE); Pseudomonas aeruginosa NOT DETECTED (NOT DETECTE); Salmonella spp. NOT DETECTED (NOT DETECTE); Serratia marcescens NOT DETECTED (NOT DETECTE); Staphylococcus epidermidis NOT DETECTED (NOT DETECTE); Staphylococcus lugdunensis NOT DETECTED (NOT DETECTE); Staphylococcus spp. NOT DETECTED (NOT DETECTE); Stenotrophomonas maltophilia NOT DETECTED (NOT DETECTE); Streptococcus agalactiae NOT DETECTED (NOT DETECTE); Streptococcus pneumoniae NOT DETECTED (NOT DETECTE); Streptococcus pyogenes NOT DETECTED (NOT DETECTE); Streptococcus spp. NOT DETECTED (NOT DETECTE)
[2023-10-21 09:08] LABS: CTX-M NOT DETECTED (NOT DETECTE); IMP NOT DETECTED (NOT DETECTE); KPC NOT DETECTED (NOT DETECTE); NDM NOT DETECTED (NOT DETECTE); OXA-48-like NOT DETECTED (NOT DETECTE); VIM NOT DETECTED (NOT DETECTE); vanA/B NOT DETECTED (NOT DETECTE)
[2023-10-21 09:09] LABS: Source BLOOD
[2023-10-21 09:11] LABS: Enterobacterales DETECTED (NOT DETECTE); Enterococcus faecalis DETECTED (NOT DETECTE); Proteus spp. DETECTED (NOT DETECTE)
[2023-10-21 09:13] LABS: Bacteroides fragilis DETECTED (NOT DETECTE)
--- NOTE | 2023-10-21 09:17 | PC.NURSE ---
Blood cultures and urine cultures results notified to Dr. Reis. Orders received. Patient remains in ER during treatments due to waiting for transportation to [facility].
[2023-10-21] MEDS: ACETAMINOPHEN 325 MG TABLET 650 MG PO (17:11)
[2023-10-21 17:36] LABS: Basophils Percent Auto 0.1 % (0.2-2.0); Eosinophils Absolute Auto 0.1 10^3/uL (0.0-0.7); Eosinophils Percent Auto 0.4 % (0.9-7.0); Hematocrit 28.9 % (42.0-54.0); Hemoglobin 9.6 g/dL (14.0-18.0); Immature Granulocytes Abs Auto 0.15 10^3/uL (0.00-0.03); Immature Granulocytes Pct Auto 1.1 % (0.0-0.5); Lymphocytes Absolute Auto 0.5 10^3/uL (1.2-3.8); Lymphocytes Percent Auto 3.6 % (20.5-60.0); Mean Corpuscular HGB Conc 33.2 g/dL (29.9-35.2); Mean Corpuscular Volume 87.3 fL (80.0-94.0); Mean Platelet Volume 11.5 fL (9.5-13.5); Monocytes Absolute Auto 1.1 10^3/uL (0.3-0.8); Monocytes Percent Auto 8.2 % (1.7-12.0); Neutrophils Absolute Auto 11.7 10^3/uL (1.4-6.5); Neutrophils Percent Auto 86.6 % (43.0-75.0); Platelet Count 67 10^3/uL (150-450); Red Blood Count 3.31 10^6/uL (4.70-6.10); Red Cell Distribution Width 15.9 % (11.0-15.0); White Blood Count 13.5 10^3/uL (4.0-11.0)
[2023-10-21] MEDS: IMIPENEM/CILASTATIN SODIUM 500 MG in 0.9 % SODIUM CHLORIDE 100 ML 200 MG IV (17:38)
[2023-10-21 17:52] LABS: Alanine Aminotransferase 46 U/L (16-63); Albumin Globulin Ratio 0.4; Albumin Level 1.5 g/dL (3.4-5.0); Alkaline Phosphatase 138 U/L (46-116); Aspartate Amino Transferase 14 U/L (15-37); BUN Creatinine Ratio 17.5; Bilirubin Total 0.4 mg/dL (0.2-1.0); Carbon Dioxide 9.3 mmol/L (21.0-32.0); Chloride 100 mmol/L (98-107); Estimated GFR (African America 6 (>=60); Estimated GFR (Non-African Ame 5 (>=60); Globulin 3.6 g/dL; Glucose 123 mg/dL (74-106); Potassium 4.3 mmol/L (3.5-5.1); Sodium 131 mmol/L (136-145); Total Protein 5.1 g/dL (6.4-8.2)
--- NOTE | 2023-10-21 21:33 | ED_ITS ---
HPI HPI - General Adult General Chief complaint: Urogenital-Male Stated complaint: ABDOMINAL PAIN Time Seen by Provider: 10/20/23 14:36 Mode of arrival: ambulance History of Present Illness HPI narrative: This 73-year-old male who was admitted by myself to this facility for UTI and chronic renal failure on October 13, was admitted for several days then discharged home was brought back to the emergency department for worsening symptoms incl uding weakness, urinary symptoms. He was found to have a UTI continually. His white count has come down from 18-4.9. He was noted to be anemic and given 2 units of blood. He was also noted to be hypotensive upon arrival and was given IV fluid hydration with clinical improvement. The plan at the time of signout was that the patient was going to be transferred to [facility] for further evaluation of his renal insufficiency and consideration for dialysis. At this time he has been here for over 31 hours and we do not have a transfer arrangement in place. The patient's family is becoming very anxious and I discussed with them transferring him to a hospital closer such as [facility]. The patient and his daughter who is his power of [place] attorney were in agreement with this plan. The case was discussed with Dr. Dempsey and he is excepted for transfer. At the time of this dictation his vital signs are stable. He is resting and arousable and appropriate. His last dose of IV antibiotics was around 6 PM. Related Data Home Medications ?Medication ?Instructions ?Recorded ?Confirmed acetaminophen 325 mg capsule 975 mg PO TID PRN fever or pain 08/17/23 10/14/23 (Tylenol) albuterol 90 mcg/actuation aerosol 180 mcg inhalation QID PRN 08/17/23 10/15/23 inhaler shortness of breath or wheezing aspirin 81 mg tablet,delayed 81 mg PO DAILY 08/17/23 10/14/23 release (Adult Low Dose Aspirin) atorvastatin 80 mg tablet 80 mg PO .QHS 08/17/23 10/14/23 bacitracin zinc 500 unit/gram 1 applic topical DAILY PRN skin 08/17/23 10/14/23 topical ointment irritation calcitriol 0.25 mcg capsule 0.25 mcg PO .3 TIMES WEEK 08/17/23 10/14/23 carvedilol 12.5 mg tablet 12.5 mg PO BID 08/17/23 10/14/23 cholecalciferol (vitamin D3) 50 2,000 unit PO DAILY 08/17/23 10/14/23 mcg (2,000 unit) capsule clobetasol 0.05 % topical cream 1 applic topical BID 08/17/23 10/15/23 darbepoetin danielle in polysorbat 100 100 mcg subcut QWEEK 08/17/23 10/15/23 mcg/mL in polysorbate injection darifenacin 15 mg tablet,extended 15 mg PO DAILY 08/17/23 10/15/23 release 24 hr ferrous sulfate 325 mg (65 mg 325 mg PO .QOD 08/17/23 10/15/23 iron) tablet,delayed release finasteride 5 mg tablet 5 mg PO DAILY 08/17/23 10/15/23 guaifenesin 600 mg tablet, 600 mg PO BID PRN congestion 08/17/23 10/15/23 extended release 12 hr hydrophilic cream 1 applic topical BID 08/17/23 10/15/23 levothyroxine 75 mcg capsule 75 mcg PO QAM 08/17/23 10/15/23 lidocaine HCl 2 % topical gel 1 applic topical DAILY PRN pain 08/17/23 10/15/23 lidocaine HCl 4 % topical ointment 1 ea topical TID PRN pain 08/17/23 10/15/23 (AsperFlex (lidocaine HCl)) loratadine 10 mg tablet (Allergy 10 mg PO .QOD 08/17/23 10/15/23 Relief (loratadine)) melatonin 3 mg tablet 3 mg PO .QHS PRN sleep 08/17/23 10/15/23 miconazole nitrate 2 % topical 1 applic topical DAILY PRN fungal 08/17/23 10/15/23 powder (Remedy Phytoplex Antifungal) multivitamin 1 tab PO DAILY 08/17/23 10/15/23 nitroglycerin 0.4 mg sublingual 0.4 mg sublingual Q5M PRN chest 08/17/23 10/15/23 tablet pain omeprazole 20 mg tablet,delayed 20 mg PO DAILY 08/17/23 10/15/23 release polyethylene glycol 3350 17 17 g PO DAILY PRN constipation 08/17/23 10/15/23 gram/dose oral powder (Miralax) potassium citrate-citric acid 30 ml PO DAILY 08/17/23 10/15/23 1,100 mg-334 mg/5 mL oral solution pramoxine 1 % lotion 1 applic topical TID PRN itching 08/17/23 10/15/23 semaglutide 2 mg/dose (8 mg/3 mL) 0.5 mg subcut QWEEK 08/17/23 10/15/23 subcutaneous pen injector (Ozempic) sennosides 8.6 mg capsule 8.6 mg PO DAILY PRN constipation 08/17/23 10/15/23 trazodone 100 mg tablet 100 mg PO .QHS 08/17/23 10/15/23 venlafaxine 37.5 mg 37.5 mg PO DAILY 08/17/23 10/15/23 capsule,extended release 24 hr wound dressings (Triad Wound 1 applic topical .COMPLEX 08/17/23 10/15/23 Dressing paste) zinc oxide 20 % topical ointment 1 applic topical DAILY PRN skin 08/17/23 10/15/23 irritation ixekizumab 80 mg/mL subcutaneous See Rx Instructions subcut .COMPLEX 09/11/23 10/15/23 syringe sodium chloride 0.65 % nasal spray 2 spray intranasal QID PRN dry 09/11/23 10/15/23 aerosol ([place] Saline) nasal passages triamcinolone acetonide 0.1 % 1 applic topical BID 09/11/23 10/15/23 topical ointment Previous Rx's ?Medication ?Instructions ?Recorded levofloxacin 250 mg tablet 250 mg PO Q48H 10 days #5 tabs 10/17/23 Allergies Allergy/AdvReac Type Severity Reaction Status Date / Time Penicillins Allergy Mild Rash Verified 09/25/23 15:39 ferumoxides Allergy Rash Verified 09/25/23 15:39 sulfamethoxazole AdvReac Mild Nausea Verified 09/25/23 15:39 [From Sulfamethoxazole-Trimethoprim] trimethoprim AdvReac Mild Nausea Verified 09/25/23 15:39 [From Sulfamethoxazole-Trimethoprim] Opioid HPI Opioid Management Most Recent Opioid Data: Last Pain Scale 6 10/20/23 15:01 Last Pain Assessment 10/17/23 15:00 Last ORT Total Score 0 10/14/23 22:27 Last ORT Risk Category Low Risk 10/14/23 22:27 [facility] Medical History (Updated 10/21/23 @ 00:00 by ) Bacteremia due to Pseudomonas ?R78.81 - Bacteremia (ICD-10) ?B96.5 - Pseudomonas (aeruginosa) (mallei) (pseudomallei) as the cause of diseases classified elsewhere (ICD-10) Urinary tract infection ?N39.0 - Urinary tract infection, site not specified (ICD-10) Accidental fall from bed ?W06.XXXA - Fall from bed, initial encounter (ICD-10) Contusion of left shoulder ?S40.012A - Contusion of left shoulder, initial encounter (ICD-10) Contusion of knee, left ?S80.02XA - Contusion of left knee, initial encounter (ICD-10) Contusion of back ?S20.229A - Contusion of unspecified back wall of thorax, initial encounter (ICD-10) Thyroid nodule ?E04.1 - Nontoxic single thyroid nodule (ICD-10) Chronic renal disease ?N18.9 - Chronic kidney disease, unspecified (ICD-10) C. 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 - Other specified dermatitis (ICD-10) CAD (coronary artery disease) ?I25.10 - Atherosclerotic heart disease of [place] coronary artery without angina pectoris (ICD-10) T2DM (type 2 diabetes mellitus) ?E11.9 - Type 2 diabetes mellitus without complications (ICD-10) Hypothyroid ?E03.9 - Hypothyroidism, unspecified (ICD-10) HLD (hyperlipidemia) ?E78.5 - Hyperlipidemia, unspecified (ICD-10) HTN (hypertension) ?I10 - Essential (primary) hypertension (ICD-10) Anemia in CKD (chronic kidney disease) ?N18.9 - Chronic kidney disease, unspecified (ICD-10) ?D63.1 - Anemia in chronic kidney disease (ICD-10) Chronic indwelling Wooten catheter ?Z97.8 - Presence of other specified devices (ICD-10) Paraplegia ?G82.20 - Paraplegia, unspecified (ICD-10) Bedbound ?Z74.01 - Bed confinement status (ICD-10) H/O: CVA (cerebrovascular accident) ?Z86.73 - Personal history of transient ischemic attack (TIA), and cerebral infarction without residual deficits (ICD-10) CKD (chronic kidney disease) stage 5, GFR less than 15 ml/min ?N18.5 - Chronic kidney disease, stage 5 (ICD-10) Surgical History (Updated 09/11/23 @ 03:19 by Bethany Amor) H/O heart artery stent ?Z95.5 - Presence of coronary angioplasty implant and graft (ICD-10) Social History Within the past year, how often did you have a drink containing alcohol: never Score interpretation: A score less than 4 is consistent with normal alcohol consumption. Smoking status: Former smoker Non-prescribed substance use: denies use Highest level of school completed/degree received: Associate degree: occupational, technical, vocational program Are you now , , , , never or living with a partner: don't know In a typical week, how many times do you talk on the telephone with family, friends, or neighbors: never How often do you get together with friends or relatives: never How often do you attend spiritism or adventism services: never Little interest or pleasure in doing things: not at all Feeling down, depressed, or hopeless: not at all Do you think of yourself as: straight/heterosexual Gender Identity: male Exam Constitutional Vital Signs, click to edit/add: Last Vital Signs Temp 97.8 F 10/20/23 21:05 Pulse 81 10/21/23 20:39 Resp 20 10/21/23 20:39 BP 111/59 10/21/23 20:39 Pulse Ox 98 10/21/23 20:39 O2 Del Method Room Air 10/20/23 14:26 Course Vital Signs Vital signs: Vital Signs Temperature 97.5 F L 10/20/23 14:26 Pulse Rate 86 10/20/23 14:26 Respiratory Rate 24 H 10/20/23 14:26 Blood Pressure 94/47 L 10/20/23 14:26 Pulse Oximetry 98 10/20/23 14:26 Oxygen Delivery Method Room Air 10/20/23 14:26 Temperature 97.8 F 10/20/23 21:05 Pulse Rate 81 10/21/23 20:39 Respiratory Rate 20 10/21/23 20:39 Blood Pressure 111/59 10/21/23 20:39 Pulse Oximetry 98 10/21/23 20:39 Oxygen Delivery Method Room Air 10/20/23 14:26 Medical Decision Making Lab Data Labs: Lab Results 10/20/23 10/20/23 10/20/23 Range/Units 14:43 16:18 17:57 WBC 12.0 H (4.0-11.0) 10^3/uL RBC 2.59 L (4.70-6.10) 10^6/uL Hgb 7.6 L (14.0-18.0) g/dL Hct 23.2 L* (42.0-54.0) % MCV 89.6 (80.0-94.0) fL MCH 29.3 (25.9-34.0) pg MCHC 32.8 (29.9-35.2) g/dL RDW 15.4 H (11.0-15.0) % Plt Count 61 L (150-450) 10^3/uL MPV 12.1 (9.5-13.5) fL Neut % (Auto) (43.0-75.0) % Lymph % (Auto) (20.5-60.0) % [place] % (Auto) (1.7-12.0) % Eos % (Auto) (0.9-7.0) % Baso % (Auto) (0.2-2.0) % Neut # (Auto) (1.4-6.5) 10^3/uL Lymph # (Auto) (1.2-3.8) 10^3/uL [place] # (Auto) (0.3-0.8) 10^3/uL Eos # (Auto) (0.0-0.7) 10^3/uL Baso # (Auto) (0.0-0.1) 10^3/uL Abs Immat Gran (auto) (0.00-0.03) 10^3/uL Seg Neuts % (Manual) 92.0 Band Neutrophils % 1.0 (0-5) % Lymphocytes % (Manual) 4.0 L (20.5-60.0) % Monocytes % (Manual) 3.0 (1.7-12.0) % Eosinophils % (Manual) 0.0 L (0.9-7.0) % Basophils % (Manual) 0.0 L (0.2-2.0) % Imm/Tot Granulo (auto) (0.0-0.5) % Neutrophils # (Manual) 11.04 H (1.4-6.5) 10^3/uL Band Neutrophils # 0.1 (0.0-0.3) 10^3/uL Lymphocytes # (Manual) 0.48 L (1.20-3.80) 10^3/uL Monocytes # (Manual) 0.36 (0.30-0.80) 10^3/uL Eosinophils # (Manual) 0.00 (0.00-0.70) 10^3/uL Basophils # (Manual) 0.00 (0.00-0.10) 10^3/uL ESR 22 H (<=20) mm/hr PT 12.0 H (9.0-11.6) sec INR 1.15 VBG pH 7.179 L (7.330-7.430) VBG pCO2 29.4 L (40.0-52.0) mmHg Sodium 132 L (136-145) mmol/L Potassium 4.2 (3.5-5.1) mmol/L Chloride 101 (98-107) mmol/L Carbon Dioxide 12.9 L (21.0-32.0) mmol/L Anion Gap 22.3 BUN 176.0 H* (7.0-18.0) mg/dL Creatinine 10.71 H* (0.70-1.30) mg/dL Est GFR ( Amer) 6 L (>=60) Est GFR (Non-Af Amer) 5 L (>=60) BUN/Creatinine Ratio 16.4 Glucose 153 H (74-106) mg/dL Lactate 1.1 (0.4-2.0) mmol/L Calcium 9.0 (8.5-10.1) mg/dL Total Bilirubin 0.3 (0.2-1.0) mg/dL AST 20 (15-37) U/L ALT 59 (16-63) U/L Alkaline Phosphatase 142 H (46-116) U/L Troponin I High Sens 61.3 (4.0-76.1) pg/mL C-Reactive Protein 19.45 H (<=0.50) mg/dL NT-Pro-B Natriuret Pep >75570.0 H* (<=900.0) pg/mL Total Protein 4.9 L (6.4-8.2) g/dL Albumin 1.6 L (3.4-5.0) g/dL Globulin 3.3 g/dL Albumin/Globulin Ratio 0.5 Lipase 27.0 (16.0-77.0) U/L Procalcitonin 4.38 H (0.00-0.50) ng/mL TSH 1.151 (0.358-3.740) uIU/mL Urine Color Yellow (YELLOW) Urine Clarity Cloudy A (CLEAR) Urine pH 6.0 (5.0-9.0) Ur Specific Schneider 1.015 (1.005-1.025) Urine Protein 100 A (NEG/TRACE) mg/dL Urine Glucose (UA) Negative (NEGATIVE) mg/dL Urine Ketones Negative (NEGATIVE) mg/dL Urine Occult Blood Large A (NEGATIVE) Urine Nitrite Negative (NEGATIVE) Urine Bilirubin Negative (NEGATIVE) Urine Urobilinogen 0.2 (0.2-1.0) EU/dL Ur Leukocyte Esterase Moderate A (NEGATIVE) Urine RBC 20-50 A (0-2) #/HPF Urine WBC >100 A (NONE SEEN) #/HPF Ur Squamous Epith Cells Rare (NONE/RARE) #/LPF Ur Transition Epith Cell Rare A (NONE SEEN) #/LPF Urine Crystals None seen (None Seen) #/HPF Urine Bacteria Large A (NONE SEEN) #/HPF Urine Casts None seen (NONE SEEN) #/LPF Urine Mucus Trace A (NONE SEEN) Urine Yeast Seen A (NONE SEEN) Ur Culture Indicated? Yes Specimen Source Blood A.calcoaceticus-baumannii cmplx PCR Not detected (NOT DETECTE) Bacteroides fragilis Detected A* (NOT DETECTE) Elizabeth albicans (PCR) Not detected (NOT DETECTE) Elizabeth auris (PCR) Not detected (NOT DETECTE) C. glabrata (PCR) Not detected (NOT DETECTE) C. krusei (PCR) Not detected (NOT DETECTE) C. parapsilosis (PCR) Not detected (NOT DETECTE) C. tropicalis (PCR) Not detected (NOT DETECTE) C. neoform/gattii (PCR) Not detected (NOT DETECTE) Enterobacterales (PCR) Detected A* (NOT DETECTE) E. cloacae complex PCR Not detected (NOT DETECTE) Enterococc faecalis PCR Detected A* (NOT DETECTE) Enterococc faecium PCR Not detected (NOT DETECTE) E. coli (PCR) Not detected (NOT DETECTE) H. influenzae (PCR) Not detected (NOT DETECTE) Klebsiella aerogenes (PCR) Not detected (NOT DETECTE) Klebsiella oxytoca PCR Not detected (NOT DETECTE) K. pneumoniae group (PCR) Not detected (NOT DETECTE) List. monocytogenes PCR Not detected (NOT DETECTE) N. meningitidis (PCR) Not detected (NOT DETECTE) Proteus spp. (copies/mL) Detected A* (NOT DETECTE) Salmonella spp. (PCR) Not detected (NOT DETECTE) Serratia marcescens PCR Not detected (NOT DETECTE) Staphylococcus sp PCR Not detected (NOT DETECTE) Staph aureus (PCR) Not detected (NOT DETECTE) mecA/C & MREJ Resist Gene Not applicable (NOT DETECTE) mecA/C-Methicil Resis Gene Not applicable (NOT DETECTE) mcr-1 Colistin Res Gene PCR Not applicable (NOT DETECTE) Staph epidermidis (PCR) Not detected (NOT DETECTE) Staph lugdunensis (TEM-PCR) Not detected (NOT DETECTE) S. maltophilia (PCR) Not detected (NOT DETECTE) Streptococcus sp PCR Not detected (NOT DETECTE) Strep agalactiae (PCR) Not detected (NOT DETECTE) Strep pneumoniae (PCR) Not detected (NOT DETECTE) S. pyogenes (PCR) Not detected (NOT DETECTE) P. aeruginosa (PCR) Not detected (NOT DETECTE) Charlene/B-Vanco Res Genes Not detected (NOT DETECTE) blaIMP Car res Gene PCR Not detected (NOT DETECTE) KPC (blaKPC) Detect PCR Not detected (NOT DETECTE) NDM (blaNDM) Detect PCR Not detected (NOT DETECTE) OXA-48 Carbapenem Resis Gene (PCR) Not detected (NOT DETECTE) blaVIM Car Res Gene PCR Not detected (NOT DETECTE) CTX-M ESBL (PCR) Not detected (NOT DETECTE) Blood Type O Negative Antibody Screen Negative Crossmatch See Detail 10/21/23 Range/Units 17:29 WBC 13.5 H (4.0-11.0) 10^3/uL RBC 3.31 L (4.70-6.10) 10^6/uL Hgb 9.6 L (14.0-18.0) g/dL Hct 28.9 L (42.0-54.0) % MCV 87.3 (80.0-94.0) fL MCH 29.0 (25.9-34.0) pg MCHC 33.2 (29.9-35.2) g/dL RDW 15.9 H (11.0-15.0) % Plt Count 67 L (150-450) 10^3/uL MPV 11.5 (9.5-13.5) fL Neut % (Auto) 86.6 H (43.0-75.0) % Lymph % (Auto) 3.6 L (20.5-60.0) % [place] % (Auto) 8.2 (1.7-12.0) % Eos % (Auto) 0.4 L (0.9-7.0) % Baso % (Auto) 0.1 L (0.2-2.0) % Neut # (Auto) 11.7 H (1.4-6.5) 10^3/uL Lymph # (Auto) 0.5 L (1.2-3.8) 10^3/uL [place] # (Auto) 1.1 H (0.3-0.8) 10^3/uL Eos # (Auto) 0.1 (0.0-0.7) 10^3/uL Baso # (Auto) 0.0 (0.0-0.1) 10^3/uL Abs Immat Gran (auto) 0.15 H (0.00-0.03) 10^3/uL Seg Neuts % (Manual) Band Neutrophils % (0-5) % Lymphocytes % (Manual) (20.5-60.0) % Monocytes % (Manual) (1.7-12.0) % Eosinophils % (Manual) (0.9-7.0) % Basophils % (Manual) (0.2-2.0) % Imm/Tot Granulo (auto) 1.1 H (0.0-0.5) % Neutrophils # (Manual) (1.4-6.5) 10^3/uL Band Neutrophils # (0.0-0.3) 10^3/uL Lymphocytes # (Manual) (1.20-3.80) 10^3/uL Monocytes # (Manual) (0.30-0.80) 10^3/uL Eosinophils # (Manual) (0.00-0.70) 10^3/uL Basophils # (Manual) (0.00-0.10) 10^3/uL ESR (<=20) mm/hr PT (9.0-11.6) sec INR VBG pH (7.330-7.430) VBG pCO2 (40.0-52.0) mmHg Sodium 131 L (136-145) mmol/L Potassium 4.3 (3.5-5.1) mmol/L Chloride 100 (98-107) mmol/L Carbon Dioxide 9.3 L (21.0-32.0) mmol/L Anion Gap 26.0 BUN 184.0 H* (7.0-18.0) mg/dL Creatinine 10.52 H* (0.70-1.30) mg/dL Est GFR ( Amer) 6 L (>=60) Est GFR (Non-Af Amer) 5 L (>=60) BUN/Creatinine Ratio 17.5 Glucose 123 H (74-106) mg/dL Lactate (0.4-2.0) mmol/L Calcium 9.0 (8.5-10.1) mg/dL Total Bilirubin 0.4 (0.2-1.0) mg/dL AST 14 L (15-37) U/L ALT 46 (16-63) U/L Alkaline Phosphatase 138 H (46-116) U/L Troponin I High Sens (4.0-76.1) pg/mL C-Reactive Protein (<=0.50) mg/dL NT-Pro-B Natriuret Pep (<=900.0) pg/mL Total Protein 5.1 L (6.4-8.2) g/dL Albumin 1.5 L (3.4-5.0) g/dL Globulin 3.6 g/dL Albumin/Globulin Ratio 0.4 Lipase (16.0-77.0) U/L Procalcitonin (0.00-0.50) ng/mL TSH (0.358-3.740) uIU/mL Urine Color (YELLOW) Urine Clarity (CLEAR) Urine pH (5.0-9.0) Ur Specific Schneider (1.005-1.025) Urine Protein (NEG/TRACE) mg/dL Urine Glucose (UA) (NEGATIVE) mg/dL Urine Ketones (NEGATIVE) mg/dL Urine Occult Blood (NEGATIVE) Urine Nitrite (NEGATIVE) Urine Bilirubin (NEGATIVE) Urine Urobilinogen (0.2-1.0) EU/dL Ur Leukocyte Esterase (NEGATIVE) Urine RBC (0-2) #/HPF Urine WBC (NONE SEEN) #/HPF Ur Squamous Epith Cells (NONE/RARE) #/LPF Ur Transition Epith Cell (NONE SEEN) #/LPF Urine Crystals (None Seen) #/HPF Urine Bacteria (NONE SEEN) #/HPF Urine Casts (NONE SEEN) #/LPF Urine Mucus (NONE SEEN) Urine Yeast (NONE SEEN) Ur Culture Indicated? Specimen Source A.calcoaceticus-baumannii cmplx PCR (NOT DETECTE) Bacteroides fragilis (NOT DETECTE) Elizabeth albicans (PCR) (NOT DETECTE) Elizabeth auris (PCR) (NOT DETECTE) C. glabrata (PCR) (NOT DETECTE) C. krusei (PCR) (NOT DETECTE) C. parapsilosis (PCR) (NOT DETECTE) C. tropicalis (PCR) (NOT DETECTE) C. neoform/gattii (PCR) (NOT DETECTE) Enterobacterales (PCR) (NOT DETECTE) E. cloacae complex PCR (NOT DETECTE) Enterococc faecalis PCR (NOT DETECTE) Enterococc faecium PCR (NOT DETECTE) E. coli (PCR) (NOT DETECTE) H. influenzae (PCR) (NOT DETECTE) Klebsiella aerogenes (PCR) (NOT DETECTE) Klebsiella oxytoca PCR (NOT DETECTE) K. pneumoniae group (PCR) (NOT DETECTE) List. monocytogenes PCR (NOT DETECTE) N. meningitidis (PCR) (NOT DETECTE) Proteus spp. (copies/mL) (NOT DETECTE) Salmonella spp. (PCR) (NOT DETECTE) Serratia marcescens PCR (NOT DETECTE) Staphylococcus sp PCR (NOT DETECTE) Staph aureus (PCR) (NOT DETECTE) mecA/C & MREJ Resist Gene (NOT DETECTE) mecA/C-Methicil Resis Gene (NOT DETECTE) mcr-1 Colistin Res Gene PCR (NOT DETECTE) Staph epidermidis (PCR) (NOT DETECTE) Staph lugdunensis (TEM-PCR) (NOT DETECTE) S. maltophilia (PCR) (NOT DETECTE) Streptococcus sp PCR (NOT DETECTE) Strep agalactiae (PCR) (NOT DETECTE) Strep pneumoniae (PCR) (NOT DETECTE) S. pyogenes (PCR) (NOT DETECTE) P. aeruginosa (PCR) (NOT DETECTE) Charlene/B-Vanco Res Genes (NOT DETECTE) blaIMP Car res Gene PCR (NOT DETECTE) KPC (blaKPC) Detect PCR (NOT DETECTE) NDM (blaNDM) Detect PCR (NOT DETECTE) OXA-48 Carbapenem Resis Gene (PCR) (NOT DETECTE) blaVIM Car Res Gene PCR (NOT DETECTE) CTX-M ESBL (PCR) (NOT DETECTE) Blood Type Antibody Screen Crossmatch Discharge Plan Discharge Chief Complaint: Urogenital-Male Clinical Impression: Anemia requiring transfusions, Acute kidney failure, Acute UTI Patient Disposition: [facility] Time of Disposition Decision: 21:56 Discharge Location: [facility] Condition: Fair Mode of Transportation: EMS
[2023-10-22 00:18] VITALS: BP 140/69; PULSE 81; O2SAT 98
== END 2023-10-22 00:18 | disposition short-term general hospital (02) ==
PROVIDERS: Emergency Medicine; Internal Medicine; Physician Assistant; Emergency Provider Emergency Medicine
DX: N17.9 Acute kidney failure, unspecified (principal); N39.0 Urinary tract infection, site not specified; D64.9 Anemia, unspecified; Z96.0 Presence of urogenital implants; N18.9 Chronic kidney disease, unspecified; I95.9 Hypotension, unspecified; Z87.891 Personal history of nicotine dependence
CPT/HCPCS: 36415; 36430; 71045; 74176; 80053; 81001; 82800; 83605; 83690; 83880; 84145; 84443; 84484; 85007; 85025; 85027; 85610; 85652; 86140; 86850; 86900; 86901; 87040; 87086; 87150; 87186; 93005; 96361; 96365; 96366; 99285; J0743; P9016

== ENCOUNTER 2023-11-01 19:05 | Emergency (ER) | payer OTHER, SELFPAY ==
[2023-11-01] VITALS (11 sets, daily range): BP systolic 109–114; BP diastolic 55–70; PULSE 63–70; TEMP 36.7; O2SAT 93–99; BMI 39.1
--- OUTSIDE RECORDS SUMMARY | 2023-11-01 19:13 | XMS_ITS | CCD ---
Author Organization [facility] Inform ion [facility] Care Team Providers Care Apprentice Funeral Director Name Role Phone Unavailable Primary Care Provider UnavailROBERTO Raman Consulting Unavailable DIAB ., GAVIOTA Attending Unavailable DIAB ., GAVIOTA Admitting Unavailable MISC, DR YODER Primary Care Unavailable DEISI ., GAVIOTA Consulting Unavailable REQUEST, DR BOOTH LISTED Primary Care Unavailaudrey HALLMAN, DR REJI Vidal Consulting Unavailabl shelley HALLMAN, DR REJI Vidal Attending Unavailangela HALLMAN, DR REJI Vidal Admitting Unavailabl shelley KEVIN ., KENDRA DAVIES Consulting Unavailangela benson HAY ., DR BARAJAS Attending Unavailable HAY ., DR BARAJAS Admitting Unavailable REQUEST, DR BOOTH LISTED Primary Care Unavaila MARQUES Lieberman Consulting Unavailable PAY ., DR GRAVES Consulting [...] Consulting Unavailable ELEANOR ., PASHA Consulting Unavailable JBSTACEY YASER Consulting Unavailable ЕЛЕНА DAVIES Referring Unavailable Graciela ANGEL Attending Unavailable Erik Sanderson Unavailable Devaughn Lucio Unavailable BLANCA VARGAS Referring Unavailable Unavailable Primary Care Provider UnavailNorma Maya Consulting Unavailable Marky Depmsey Admitting Unavailable Krysta Singer Attending Unavailable Morteza (Clinic)Barak Primary Care UnavailTres Nair Consulting Unavailable Cloeen Mason Consulting Unavailable Araseli Sena Consulting Unavailable Luigi Borges Consulting Unavailable Umang Yan Consulting Unavailangela Pro (Clinic), DO [place] Primary Care Provider MD Marky Dempsey Admit Provider [phone] MD Krysta Singer Attending Provider MD Norma Lopez Other Provider DO Tres Young Other Provider [phone] MARILEE Mason Other Provider [phone] DO Araseli Sena Other Provider MD Luigi Borges Other Provider MD Umang Yan Other Provider Allergies Allergy Classification Reported Allergen(s) Allergy Type Date of Onset Reaction(s) Facility Penicillins (antibiotic) (1 source) Penicillins Drug Allergy 02-06-20 [facility] (2 sources) Penicillins Propensity to adverse reactions to drug 02-06-20 [place] (2 sources) Penicillin; Translations: [penicillin] Drug Allergy [facility] (2 sources) Sulfamethoxazole / Trimethoprim; Translations: [Bactrim] Drug Allergy [facility] (1 source) No Known Medication Allergies; Translations: [No Known Medication Allergies] Propensity to adverse reactions (disorder) [facility]ository (4 sources) Penicillin G Drug Allergy 10-22-19 Unknown, Nausea [facility] (3 sources) Sulfamethoxazole / Trimethoprim Drug Allergy Unknown [facility] Other (1 source) Penicillin Drug Allergy 10-22-19 [facility] (1 source) Penicillins Drug allergy (disorder) 10-22-19 [facility] (2 sources) Sulfamethoxazole Drug Allergy 10-22-19 [facility] (2 sources) Trimethoprim Drug Allergy 10-22-19 [facility] Medications Current Medications Medication Drug Class(es) Dates Sig (Normalized) Sig (Original) 0.25 MG, 0.5 MG Dose 3 ML semaglutide 0.68 MG/ML Pen Injector [Ozempic] (3 sources) Ozempic (0.25 or 0.5 MG/DOSE) 2 MG/3ML as directed Subcutaneous ONCE A WEEK Active acetaminophen 500 mg oral tablet (5 sources) Start: 08-30-2022 take 650 mg by mouth every six hours Acetaminophen Active 650 MG PO Q6H August 30, 2022 3:58pm Start: 06-14-2019 End: 08-30-2022 take 1000 mg by mouth every eight hours Acetaminophen Discontinued 1000 MG PO Q8H 0 June 14, 2019 1:00am August 30, 2022 3:59pm Start: 06-02-2019 End: 06-14-2019 take 1 tablet by mouth every six hours Acetaminophen (Tylenol) 325 mg Tablet Discontinued 325 MG PO Q6H June 02, 2019 1:00am June 14, 2019 2:50pm take 2 tablets by mo ut every four hours as needed for pain acetaminophen (TYLENOL) 325 MG tablet Take 650 mg by mouth every 4 hours as needed for Pain 0 Active acetaminophen 325 mg / HYDROcodone bitartrate 5 mg oral tablet (2 sources) Opioid Agonist take 2 tablets by mouth every six hours as needed for pain HYDROcodone-acetaminophen (NORCO) 5-325 MG per tablet Take 2 tablets by mouth every 6 hours as needed for Pain. 0 Active acitretin 10 mg oral capsule (2 sources) Retinoid take 2 capsules by mouth once daily before breakfast acitretin (SORIATANE) 10 MG capsule Take 20 mg by mouth every morning (before breakfast) 0 Active [id number] actuat albuterol 0.09 mg/actuat metered dose inhaler (4 sources) beta2-Adrenerg ic Agonist Start: 2019 take 1 puff(s) by inhalation every six hours Albuterol Sulfate Active 2 PUFF INHALATION Q6H June 02, 2019 1:00am albuterol (PROVE NTIL) (2.5 MG/3ML) 0.083% nebulizer solution Take 2.5 [...] times daily 0 Active aspirin 81 mg chewable tablet (6 sources) Platelet Aggregation Inhibitor, Nonsteroidal Anti-inflammatory Drug Start: 0 take 81 mg by mouth once daily Aspirin Active 81 MG PO Daily June 02, 2019 1:00am [facility] Aspirin Adult Low Dose 81 MG 1 tablet Orally Once a day Active atorvastatin 80 mg oral tablet (6 sources) HMG-CoA Reductase Inhibitor Start: 06-02-2019 take 80 mg by mouth once daily Atorvastatin Active 80 MG PO Daily June 02, 2019 1:00am betamethasone 0.5 mg/ml topical cream (1 source) Corticosteroid Start: 08-30-2022 Betamethasone Dipropionate Active 1 APPLIC TOPICAL Twice daily August 30, 2022 12:00am bisacodyl 10 mg rectal suppository (2 sources) Stimulant Laxative take 10 mg rectal route once daily as needed for constipation bisacodyl (DULCOLAX) [address] 10 mg rectally daily as needed for Constipation 0 Active calcitriol 0.82530 mg oral capsule (1 source) Vitamin D3 Analog Start: 10-30-2023 take 0.25 ug by mouth three times weekly Calcitriol Active 0.25 MCG PO 3 Times a week October 30, 2023 12:00am calcium acetate 667 mg oral tablet (1 source) Start: 10-30-2023 take 1334 mg by mouth three times daily at mealtime Calcium Acetate(Phosphat Bind) Active 1334 MG PO 3 times per day with meals October 30, 2023 12:00am docusate sodium 100 mg oral capsule (4 sources) Start: 08-30-2022 take 100 mg by mouth twice daily Docusate Sodium Active 100 MG PO Twice daily August 30, 2022 12:00am take 1 capsule by mo [facility] every twenty-four hours Colace 100 MG 1 capsule as needed Orally Once a day Active ferrous sulfate 325 mg oral tablet (6 sources) Start: 06-02-2019 take 325 mg by mouth once daily Ferrous Sulfate Active 325 MG PO Daily June 02, 2019 1:00am take 1 tablet by mouth once ja y Ferrous Sulfate 325 (65 Fe) MG 1 tablet Orally ONCE A DAY Active finasteride 5 mg oral tablet (6 sources) 5-alpha Reductase Inhibitor Start: 06-02-2019 take 5 mg by mouth once daily Finasteride Active 5 MG PO Daily June 02, 2019 1:00am 30 actuat fluticasone furoate 0.05 mg/actuat dry powder inhaler (1 source) Corticosteroid Start: 08-30-2022 take 50 ug by inhalation twice daily Fluticasone Furoate Active 50 MCG INHALATION Twice daily August 30, 2022 12:00am furosemide 80 mg oral tablet (4 sources) Loop Diuretic Start: 10-30-2023 take 80 mg by mouth twice daily Furosemide Active 80 MG PO BID@0800,1600 60 30 October 30, 2023 12:00am Start: 08-30-2022 End: 10-30-2023 take 20 mg by mouth once daily Furosemide Discontinued 20 MG PO Daily August 30, 2022 12:00am October 30, 2023 6:21pm take 1 tablet by estrella th once daily furosemide (LASIX) 80 MG tablet Take 80 mg by mouth daily 0 Active 0.2 ml glucagon 5 mg/ml prefilled syringe (1 source) Antihypoglycemic Agent Start: 08-30-2022 inject 1 mg by subcutaneous injection once daily Glucagon Active 1 MG SUBCUT Daily August 30, 2022 12:00am Insulin Glargine (4 sources) Insulin Analog Start: 06-02-2019 inject 12 [IU] by subcutaneous injection once daily at bedtime Insulin Glargine Active 12 UNIT SUBCUT Daily at bedtime June 02, 2019 1:00am Lantus SoloStar 100 UNIT/ML as directed Subcutaneous 12UNITS Q HS Active Lanolin Glszzdn-Mv-D.Pet-[place] (Minerin Creme) Cream (1 source) Start: 08-30-2022 Lanolin Lutfwbv-Ds-F.Pet-[place] (Minerin Creme) Cream Active 1 APPLIC TOPICAL Daily August 30, 2022 12:00am legs and feet levothyroxine sodium 0.075 mg oral tablet (6 sources) l-Thy roxin e Start: 06-02-2019 take 75 ug by mouth once daily Levothyroxine Active 75 MCG PO Daily June 02, 2019 1:00am take 1 tablet by estrella th once daily in the morning Levothyroxine Sodium [...] 0 Active loratadine 10 mg oral tablet (6 sources) Start: 06-02-19 Loratadine Active 10 MG PO Every 48 hours June 02, 2019 1:00am take 1 tablet by mouth every oth er day Loratadine 10 MG 1 tablet Orally [...] 2 times daily (with meals) 0 Active 24 hr metoprolol succinate 25 mg extended release oral tablet (3 sources) beta-Adrenergic Zayda Start: 4 take 12.5 mg by mouth once daily Metoprolol Succinate Active 12.5 MG PO Daily October 30, 2023 12:00am take 1 tablet by mouth twice js ly metoprolol tartrate (LOPRESSOR) 25 MG tablet Take [...] 0 Active nitroglycerin 0.4 mg sublingual tablet (3 sources) Nitrate Vasodilator Start: 06-02-19 Nitroglycerin Active 0.4 MG SUBLINGUAL every 5 to 15 minutes June 02, 2019 1:00am omeprazole 20 mg delayed release oral capsule (4 sources) Proton Pump Inhibitor Start: 08-31-19 take 20 mg by mouth once daily Omeprazole Active 20 MG PO Daily August 30, 2022 12:00am Ostomy Supplies (Coloplast Paste) Paste (1 source) Start: 08-31-19 Ostomy Supplies (Coloplast Paste) Paste Active EACH MISCELLANE August 30, 2022 12:00am polyethylene glycol 3350 58723 mg powder for oral solution (4 sources) Osmotic Laxative Start: 06-02-19 take 17 g by mouth twice daily Polyethylene Glycol 3350 Active 17 GM PO Twice daily June 02, 2019 1:00am raNITIdine 300 mg oral tablet (2 sources) [...] day Active simethicone 80 mg chewable tablet (4 sources) Start: 08-31-19 take 80 mg by mouth twice daily Simethicone Active 80 MG PO Twice daily August 30, 2022 12:00am take 1 tablet by mouth every six hours Simethicone 80 MG 1 tablet after meals and at bedtime as needed Orally Four times a day Active sodium phosphate, dibasic 35.5 mg/ml / sodium phosphate, monobasic 96.4 mg/ml enema (2 sources) Sodium Phosphate s (FLEET) 7-19 GM/118ML Place 1 enema rectally once as needed 0 Active traZODone hydrochloride 50 mg oral tablet (8 sources) Serotonin Reuptake Inhibitor Start: take 25 mg by mouth once daily at bedtime Trazodone Active 25 MG PO Daily at bedtime August 30, 2022 4:07pm Start: 06-02-2019 End: 08-30-2022 take 50 mg by mouth once daily at bedtime Trazodone Discontinued 50 MG PO Daily at bedtime 3 3 June 14, 2019 2:50pm August 30, 2022 4:07pm take 0.5 tablet by m outh once daily traZODone HCl 50 MG 1/2 TABLET Orally Once a day Active trospium chloride 20 mg oral tablet (1 source) Cholinergic Muscarinic Antagonist Start: 08-30-2022 take 20 mg by mouth once daily Trospium Active 20 MG PO Daily August 30, 2022 12:00am 1 ml ustekinumab 90 mg/ml prefilled syringe (3 sources) Interleukin-12 Antagonist, Interleukin-23 Antagonist Start: 08-30-2022 Ustekinumab (Stelara) 90 mg/mL Syringe Active 90 MG SUBCUT once every 10 weeks August 30, 2022 12:00am ustekinumab (BENJAMIN JAY) 90 MG/ML SOSY prefilled syringe Inject 90 mg into the skin once 0 Active venlafaxine 37.5 mg oral tablet (4 sources) Serotonin and Norepinephrine Reuptake Inhibitor Start: 08-30-2022 take 37.5 mg by mouth twice daily Venlafaxine Active 37.5 MG PO Twice daily August 30, 2022 12:00am Zinc Oxide (1 source) Start: 08-30-2022 Zinc Oxide Act magdi 1 APPLIC TOPICAL Twice daily August 30, 2022 12:00am Completed/Discontinued Medications Medication Drug Class(es) Dates Sig (Normalized) Sig (Original) Balsam [place] Oil (Venelex) Ointment (1 source) Start: 06-14-2019 End: 08-30-2022 Balsam Prem-[place] Oil (Venelex) Ointment Discontinued 1 APPLIC TOPICAL Three times daily 0 June 14, 2019 1:00am August 30, 2022 3:56pm bumetanide 2 mg oral tablet (2 sources) Loop Diuretic Start: 06-02-2019 End: 06-14-2019 take 1 mg by mouth at bedtime Bumetanide Discontinued 1 MG PO Bedtime June 02, 2019 1:00am June 14, 2019 2:50pm Start: 06-02-2019 End: 06-14-2019 take 2 mg by mouth once daily Bumetanide Discontinued 2 MG PO Daily June 02, 2019 1:00am June 14, 2019 2:50pm capsaicin 0.25 mg/ml topical cream (1 source) Start: 06-14-2019 End: 08-30-2022 Capsaicin Discontinued 1 APPLIC TOPICAL Twice daily 0 June 14, 2019 1:00am August 30, 2022 3:56pm carvedilol 12.5 mg oral tablet (6 sources) alpha-Adrenergi c Zayda, beta-Adrenergic Zayda Start: 06-02-2019 End: 10-30-2023 take 12.5 mg by mouth twice daily Carvedilol Discontinued 12.5 MG PO Twice daily June 02, 2019 1:00am October 30, 2023 6:21pm take 1 tablet by mouth every twe lve hours Carvedilol 25 MG 1 tablet with food Orally Twice a day Active take 1 tablet by estrella th twice daily at mealtime carvedilol (COREG) 6.25 MG tablet Take 6.25 mg by mouth 2 times daily (with meals) 0 Active cefepime 1000 mg injection (1 source) Cephalosporin Antibacterial Start: 09-04-2022 End: 10-30-2023 take 1 g intravenously every twenty-four hours Cefepime Discontinued 1 GM IV Q24H September 04, 2022 12:00am October 30, 2023 6:21pm cholecalciferol 0.05 mg oral tablet (4 sources) Vitamin D Start: 08-30-2022 End: 10-30-2023 take 50 ug by mouth once daily Cholecalciferol (Vitamin D3) Discontinued 50 MCG PO Daily August 30, 2022 12:00am October 30, 2023 6:21pm take 1 tablet by mouth once ja y Cholecalciferol 50 MCG (1999 UT) 1 tablet Orally Once a day Active gabapentin 300 mg oral capsule (3 sources) Anti-epileptic Agent Start: 06-02-2019 End: 06-14-2019 take 300 mg by mouth twice daily Gabapentin Discontinued 300 MG PO Twice daily June 02, 2019 1:00am June 14, 2019 2:50pm take 1 capsule by mo ut three times daily gabapentin (NEURONTIN) 300 MG capsule Ta ke 300 mg by mouth 3 times daily. 0 Active ammonium lactate 120 mg/ml topical cream (1 source) Start: 06-02-2019 End: 08-30-2022 Ammonium Lactate Discontinued 1 APPLIC TOPICAL Twice daily June 02, 2019 1:00am August 30, 2022 3:55pm levoFLOXacin 500 mg oral tablet (1 source) Quinolone Antimicrobial Start: 08-30-2022 End: 08-30-2022 Levofloxacin Discontinued 500 MG PO Q48H August 30, 2022 12:00am August 30, 2022 6:24pm Sennosides (1 source) Start: 06-02-2019 End: 08-30-2022 take 8.6 mg by mouth twice daily Sennosides Discontinued 8.6 MG PO Twice daily June 02, 2019 1:00am August 30, 2022 4:06pm sodium bicarbonate 650 mg oral tablet (1 source) Start: 09-04-2022 End: 10-30-2023 take 650 mg by mouth three times daily Sodium Bicarbonate Discontinued 650 MG PO Three times daily September 04, 2022 12:00am October 30, 2023 6:21pm tamsulosin hydrochloride 0.4 mg oral capsule (3 sources) alpha-Adrenergic Zayda Start: 06-02-2019 End: 08-30-2022 take 0.4 mg by mouth at bedtime Tamsulosin Discontinued 0.4 MG PO Bedtime June 02, 2019 1:00am August 30, 2022 4:06pm Problems Active Problems Problem Classification Problem Date Documented Date Episodic/Chronic Acute and unspecified renal failure (7 sources) Acute renal failure syndrome; Translations: [Acute kidney failure, unspecified] Onset: 9 02-05-2019 Episodic Administrative/socia l admission (3 sources) Other specified counseling; Translations: [Advance directive discussed with patient] Onset: 4 10-30-2023 Episodic Anxiety disorders (4 sources) Post-traumatic stress disorder, unspecified; Translations: [Posttraumatic stress disorder] Onset: 2 10-23-2023 Chronic Bacterial infection; unspecified site (1 source) Proteus (mirabilis) (morganii) as the cause of diseases classified elsewhere; Translations: [PROTEUS CAUSE OF DZ CLASS ELSW] Onset: 3 Episodic Blindness and vision defects (1 source) Unspecified visual loss; Translations: [UNSPECIFIED VISUAL LOSS] Onset: 2 Chronic Calculus of urinary tract (11 sources) Personal history of urinary calculi; Translations: [Kidney stone] Onset: 2 Episodic Cardiac dysrhythmias (2 sources) Ventricular tachycardia; Translations: [Ventricular tachycardia] 10-22-2023 Chronic Chronic kidney disease (20 sources) End stage renal disease; Translations: [Chronic kidney disease, unspecified] Onset: 3 Chronic Chronic ulcer of skin (3 sources) Pressure ulcer stage 2; Translations: [Pressure ulcer of right buttock, stage 2] Onset: 9 02-05-2019 Chronic Complication of device; implant or graft (2 sources) Infection and inflammatory reaction due to indwelling urethral catheter, initial encounter; Translations: [Catheter-associated urinary tract infection] Onset: 3 03-26-2023 Episodic Congestive heart failure; nonhypertensive (7 sources) Systolic heart failure; Translations: [Unspecified systolic (congestive) heart failure] Onset: 9 02-05-2019 Chronic Coronary atherosclerosis and other heart disease (2 sources) Atherosclerotic heart disease of [place] coronary artery without angina pectoris; Translations: [Chronic ischemic heart disease, unspecified] Onset: 2 Chronic Deficiency and other anemia (1 source) Anemia in other chronic diseases classified elsewhere; Translations: [ANEMIA IN OTH CHRONIC DZ CLASS ELSW] Onset: 3 Chronic Deficiency and other anemia (4 sources) Anemia of renal disease; Translations: [Anemia in chronic kidney disease] Chronic Deficiency and other anemia (2 sources) Anemia in chronic kidney disease; Translations: [Anemia in chronic kidney disease] Onset: 4 Chronic Deficiency and other anemia (4 sources) Anemia, unspecified; Translations: [ANEMIA UNSPECIFIED] Onset: 3 Episodic Deficiency and other anemia (1 source) Anemia; Translations: [Anemia, unspecified] 03-26-2023 Episodic Diabetes mellitus with complications (7 sources) Type 2 diabetes mellitus with diabetic chronic kidney disease; Translations: [Disorder of kidney due to diabetes mellitus] Onset: 3 03-26-2023 Chronic Diabetes mellitus without complication (2 sources) Type 2 diabetes mellitus without complications; Translations: [Diabetes mellitus] Onset: 2 10-23-2023 Chronic Disorders of lipid metabolism (2 sources) Pure hypercholesterolemia, unspecified; Translations: [Hyperlipidemia] Onset: 3 03-26-2023 Chronic Essential hypertension (3 sources) Essential (primary) hypertension; Translations: [Hypertensive disorder] Onset: 4 10-23-2023 Chronic Fluid and electrolyte disorders (4 sources) Acidosis; Translations: [Fluid overload, unspecified] Onset: 4 03-26-2023 Episodic Genitourinary symptoms and ill-defined conditions (1 source) Presence of urogenital implants; Translations: [PRESENCE OF UROGENITAL IMPLANTS] Onset: 3 Chronic Genitourinary symptoms and ill-defined conditions (4 sources) Obstructive and reflux uropathy, unspecified; Translations: [Personal history of urinary (tract) infections] Onset: 2 03-26-2023 Episodic Hyperplasia of prostate (4 sources) Benign prostatic hyperplasia without lower urinary tract symptoms; Translations: [Benign prostatic hyperplasia] Onset: 2 10-23-2023 Chronic Hypertension with complications and secondary hypertension [...] N-DOM] Onset: 3 Chronic Malaise and fatigue (2 sources) Weakness; Translations: [Physical deconditioning] Onset: 3 03-26-2023 Episodic Menopausal disorders (1 source) Hormone replacement therapy; Translations: [HORMONE REPLACEMENT THERAPY] Onset: 3 Episodic Mood disorders (4 sources) Major depressive disorder, single episode, unspecified; Translations: [Depressive disorder] Onset: 2 10-23-2023 Chronic Osteoarthritis (1 source) Unspecified osteoarthritis, unspecified site; Translations: [UNSPECIFIED OSTEOARTHRITIS UNS SITE] Onset: 2 Chronic Other aftercare (1 source) FPC (current) use of aspirin; Translations: [CHICKEN AND FISH CLEANER CURRENT USE OF ASPIRIN] Onset: 3 Episodic Other aftercare (1 source) Other detention (current) drug therapy; Translations: [OTH CHICKEN AND FISH CLEANER CURRENT DRUG THERAPY] Onset: 3 Episodic Other aftercare (1 source) terminal make up operator (current) use of insulin; Translations: [FPC CURRENT [...] Chronic Other diseases of kidney and ureters (3 sources) Secondary hyperparathyroidism of renal origin; Translations: [Secondary hyperparathyroidism (of renal origin)] Onset: 4 Chronic Other diseases of kidney and ureters (2 sources) Other specified disorders of kidney and ureter; Translations: [Other specified disorders of kidney and ureter] Onset: 4 10-31-2023 Chronic Other diseases of kidney and ureters (1 source) Hyperparathyroidism due to renal insufficiency; Translations: [Secondary hyperparathyroidism of renal origin] 10-22-2023 Chronic Other diseases of kidney and ureters (1 source) Kidney disease; Translations: [Other specified disorders of kidney and ureter] 10-22-2023 Chronic Other diseases of kidney and ureters (2 sources) Unspecified hydronephrosis; Translations: [Hydronephrosis] Onset: 4 10-31-2023 Episodic Other diseases of kidney and ureters (2 sources) Hydronephrosis; Translations: [Unspecified hydronephrosis] 03-26-2023 Episodic Other ear and sense organ disorders (1 source) Unspecified hearing loss, unspecified ear; Translations: [UNS HEARING LOSS UNSPECIFIED EAR] Onset: 2 Chronic Other inflammatory condition of skin (1 source) Psoriasis, unspecified; Translations: [PSORIASIS UNSPECIFIED] Onset: 2 Chronic Other nutritional; endocrine; and metabolic disorders (3 sources) Morbid (severe) obesity due to excess calories; Translations: [Morbid obesity] Onset: 3 10-31-2023 Chronic Other nutritional; endocrine; and metabolic disorders (1 source) Other disorders of phosphorus metabolism; Translations: [OTH DISORDERS PHOSPHORUS METABOLISM] Onset: 3 Chronic Other nutritional; endocrine; and metabolic disorders (1 source) Body mass index (BMI) 40.0-44.9, adult; Translations: [BODY MASS INDEX BMI 40.0-44.9 ADULT] Onset: 3 Chronic Other nutritional; endocrine; and metabolic disorders (1 source) Obesity, unspecified; Translations: [OBESITY UNSPECIFIED] Onset: 3 Chronic Other nutritional; endocrine; and metabolic disorders (1 source) Morbid obesity; Translations: [Morbid (severe) obesity due to excess calories] 10-23-2023 Chronic Other screening for suspected conditions (not mental disorders or infectious disease) (1 source) Other specified abnormal findings of blood chemistry; Translations: [OTH SPEC ABNORMAL FINDINGS BLD CHEM] Onset: 3 Episodic Zandra-; endo-; and myocarditis; cardiomyopathy (except that caused by tuberculosis or sexually transmitted disease) (3 sources) Cardiomyopathy, unspecified; Translations: [Cardiomyopathy] Onset: 4 10-22-2023 Chronic Residual codes; unclassified (1 source) Dependence on wheelchair; Translations: [DEPENDENCE ON WHEELCHAIR] Onset: 3 Chronic Residual codes; unclassified (1 source) Sleep apnea, unspecified; Translations: [SLEEP APNEA UNSPECIFIED] Onset: 2 Chronic Residual codes; unclassified (2 sources) Presence of other specified devices; Translations: [Other postprocedural status] Onset: 4 10-31-2023 Episodic Residual codes; unclassified (1 source) Urinary catheter in situ; Translations: [Presence of other specified devices] 10-22-2023 Episodic Screening and history of mental health and substance abuse codes (1 source) Personal history of nicotine dependence; Translations: [PERSONAL HISTORY OF NICOTINE DEPEND] Onset: 3 Episodic Thyroid disorders (5 sources) Hypothyroidism, unspecified; Translations: [Hypothyroidism] Onset: 3 10-23-2023 Chronic Unclassified (1 source) CONTACT W/AND (SUSP) EXPOS COVID-19; Translations: [CONTACT W/AND (SUSP) EXPOS COVID-19] Onset: 3 Unclassified (1 source) ACIDOSIS UNSPECIFIED; Translations: [ACIDOSIS UNSPECIFIED] Onset: 3 Unclassified (1 source) Ventricular tachycardia, unspecified; Translations: [Ventricular tachycardia, unspecified] Onset: 4 Urinary tract infections (5 sources) Urinary tract infection, site not specified; Translations: [Urinary tract infectious disease] Onset: 3 Episodic Past or Other Problems [...] Test Name Value Interpretation Reference Range Facility Glucose Poct GlucometersOrde red By: Krysta Singer on 10-31-2023 Glucose [Mass/Vol] 87 mg/dL Normal [facility] Comment on above: Result Comment: [facility] Glucose Reference Range is dependent on time and content of last meal. Glucose of more than 200 mg/dL in a nonstressed, ambulatory subject supports the diagnosis of Diabetes Mellitus. PERFORMED BY: [facility] [address] [place] [address] PATHOLOGIST SURGICAL SERVICES DIRECTOR BRANDEN WHATLEY M.D. Performed By: #### G LULS #### Point of Care testing , Random Glucose Refer ence Range is dependent on time and content of last meal. Glucose of more than 200 mg/dL in a nonstressed, ambulatory subject supports the diagnosis of Diabetes Mellitus. Glucose Poct Glucometerson 0 10-31-2023 Glucose [Mass/Vol] 111 mg/dL Normal [facility] Comment on above: Result Comment: [place] om Glucose Reference Range is dependent on time and content of last meal. Glucose of more than 200 mg/dL in a nonstressed, ambulatory subject supports the diagnosis of Diabetes Mellitus. PERFORMED BY: [place] [phone] PATHOLOGIST SURGICAL SERVICES DIRECTOR BRANDEN WHATLEY M.D. Performed By: #### B PANEL BEATER, HS TROP, PT, CBC #### [address] Glucose Poct Glucometerson 0 10-30-2023 Glucose [Mass/Vol] 124 mg/dL Normal [facility] Comment on above: Result Comment: [place] om Glucose Reference Range is dependent on time and content of last meal. Glucose of more than 200 mg/dL in a nonstressed, ambulatory subject supports the diagnosis of Diabetes Mellitus. PERFORMED BY: [place] [address] PATHOLOGIST SURGICAL SERVICES DIRECTOR BRANDEN WHATLEY M.D. Performed By: #### H EP PLATAB #### [facility] , Glucose [Mass/Vol] 81 mg/dL Normal [facility] Comment on above: Result Comment: [place] om Glucose Reference Range is dependent on time and content of last meal. Glucose of more than 200 mg/dL in a nonstressed, ambulatory subject supports the diagnosis of Diabetes Mellitus. PERFORMED BY: [place] [address] PATHOLOGIST SURGICAL SERVICES DIRECTOR BRANDEN WHATLEY M.D. Performed By: #### G LULS #### Point of Care testing , Glucose [Mass/Vol] 93 mg/dL Normal [facility] Comment on above: Result Comment: [place] om Glucose Reference Range is dependent on time and content of last meal. Glucose of more than 200 mg/dL in a nonstressed, ambulatory subject supports the diagnosis of Diabetes Mellitus. PERFORMED BY: [place] [address] PATHOLOGIST SURGICAL SERVICES DIRECTOR BRANDEN WHATLEY M.D. Performed By: #### B PANEL BEATER, HS TROP, PT, CBC #### [facility] [address] [place] [id number] [facility] Heparin Induced Platelet Abo n 10-30-2023 Heparin Induced Platelet Ab 0.324 Normal 0.000-0.400 [facility] Comment on above: Result Comment: Perf ormed at: BN - [facility] [address] [id number] Jr. Systems Administrator: Precious Perrin MD, Phone: [phone] PERFORMED BY: [place] [address] PATHOLOGIST SURGICAL SERVICES DIRECTOR BRANDEN WHATLEY M.D. Performed By: #### H EP PLATAB #### [facility] , Basic Metabolic PanelOrdered By: Krysta Singer on 10-29-2023 Anion gap [Moles/Vol] 14.5 mmol/L Normal 6.0-15.0 [facility] Comment on above: Performed By: #### H EP PLATAB #### [facility] , Calcium [Mass/Vol] 9.1 mg/dL Normal 8.6-10.3 [facility] Comment on above: Performed By: #### H EP PLATAB #### [facility] , Chloride [Moles/Vol] 95 mmol/L Low 98-107 [facility] Comment on above: Performed By: #### H EP PLATAB #### [facility] , CO2 [Moles/Vol] 25.1 mmol/L Normal 21.0-31.0 [facility] Comment on above: Performed By: #### H EP PLATAB #### [facility] , Creatinine [Mass/Vol] 6.00 mg/dL Significant change up 0.70-1.30 [facility] Comment on above: Performed By: #### H EP PLATAB #### [facility] , Delta: 4.64 on 10/27-0430 Glucose [Mass/Vol] 92 mg/dL Normal 70-100 [facility] Comment on above: Result Comment: [place] om Glucose Reference Range is dependent on time and content of last meal. Glucose of more than 200 mg/dL in a nonstressed, ambulatory subject supports the diagnosis of Diabetes Mellitus. ADA recommended reference range Performed By: #### H EP PLATAB #### [facility] , ADA recommended refe rence rangeRandom Glucose Reference Range is dependent on time and content of last meal. Glucose of more than 200 mg/dL in a nonstressed, ambulatory subject supports the diagnosis of Diabetes Mellitus. Potassium [Moles/Vol] 4.6 mmol/L Normal 3.5-5.1 [facility] Comment on above: Performed By: #### H EP PLATAB #### [facility] , Sodium [Moles/Vol] 130 mmol/L Low 136-145 [facility] Comment on above: Performed By: #### H EP PLATAB #### [facility] , Urea nitrogen [Mass/Vol] 74 mg/dL High 7-25 [facility] Comment on above: Performed By: #### H EP PLATAB #### [facility] , Basic Metabolic Panelon 10-12 Creatinine Clr Calc Pharmacy 15.55 Normal [facility] Comment on above: Result Comment: PERF ORMED BY: [facility] [address] [place] [address] PATHOLOGIST SURGICAL SERVICES DIRECTOR BRANDEN WHATLEY M.D. Performed By: #### H EP PLATAB #### [facility] , GFR/1.73 sq M.predicted MDRD (S/P/Bld) [Vol rate/Area] 9.256 mL/min/{1.73_m2} Normal [facility] Comment on above: Performed By: #### H EP PLATAB #### [facility] , Glucose Poct Glucometerson 0 7-17-2024 Glucose [Mass/Vol] 110 mg/dL Normal [facility] Comment on above: Result Comment: [place] om Glucose Reference Range is dependent on time and content of last meal. Glucose of more than 200 mg/dL in a nonstressed, ambulatory subject supports the diagnosis of Diabetes Mellitus. PERFORMED BY: [address] [place] [id number] PATHOLOGIST SURGICAL SERVICES DIRECTOR BRANDEN WHATLEY M.D. Performed By: #### B PANEL BEATER, HS TROP, PT, CBC #### [facility] [address] Glucose [Mass/Vol] 88 mg/dL Normal [facility] Comment on above: Result Comment: [place] Glucose Reference Range is dependent on time and content of last meal. Glucose of more than 200 mg/dL in a nonstressed, ambulatory subject supports the diagnosis of Diabetes Mellitus. PERFORMED BY: [address] [place] [id number] PATHOLOGIST SURGICAL SERVICES DIRECTOR BRANDEN WHATLEY M.D. Performed By: #### B PANEL BEATER, HS TROP, PT, CBC #### [facility] [address] [place] [address] [place] Glucose [Mass/Vol] 107 mg/dL Normal [facility] Comment on above: Result Comment: [place] om Glucose Reference Range is dependent on time and content of last meal. Glucose of more than 200 mg/dL in a nonstressed, ambulatory subject supports the diagnosis of Diabetes Mellitus. PERFORMED BY: [facility] [address] [facility] [place] [phone] PATHOLOGIST SURGICAL SERVICES DIRECTOR BRANDEN WHATLEY M.D. Performed By: #### B PANEL BEATER, HS TROP, PT, CBC #### [facility] [address] [place] [phone] [place] Glucose [Mass/Vol] 111 mg/dL Normal [facility] Comment on above: Result Comment: [place] om Glucose Reference Range is dependent on time and content of last meal. Glucose of more than 200 mg/dL in a nonstressed, ambulatory subject supports the diagnosis of Diabetes Mellitus. PERFORMED BY: [facility] [address] [place] [id number] PATHOLOGIST SURGICAL SERVICES DIRECTOR BRANDEN WHATLEY M.D. Performed By: #### H EP PLATAB #### [facility] , Leukocytes [#/volume] correc peña for nucleated erythrocytes in Blood by Automated counOrdered By: Krysta Singer on 10-29-2023 WBC corrected for nucl RBC Auto (Bld) [#/Vol] 5.4 10*3/uL 4.1-10.5 [facility] MCHC Auto (RBC) [Mass/Vol]Or dered By: Krysta Singer on 10-29-2023 MCHC (RBC) [Mass/Vol] 33.7 g/dL 32.5-35.6 [facility] No Panel InformationOrdered By: Krysta Singer on 10-29-2023 Estimated GFR (CKD-EPI) 9.256 mL/Min [facility] Creatinine Clearance (Chem 15.55 [facility] Nucleated erythrocytes [Pres ence] in Blood by Automated countOrdered By: Krysta Singer on 10-29-2023 Nucleated RBC Auto Ql (Bld) 0.0 /100{WBC} 0-0.5 [facility] Ovalocyte detectionOrdered B y: Krysta Singer on 10-29-2023 Ovalocytes LM Ql (Bld) Slight [facility] Platelet adequacy [Presence] in Blood by Light microscopyOrdered By: Krysta Singer on 10-29-2023 Platelets LM Ql (Bld) Decreased Normal [facility] Platelet morphology finding [Identifier] in BloodOrdered By: Krysta Singer on 10-29-2023 Platelet morphology finding Nom (Bld) Normal Normal [facility] Poikilocytosis [Presence] in Blood by Light microscopyOrdered By: Krysta Singer on 10-29-2023 Poikilocytosis LM Ql (Bld) Slight [facility] RBC morphologyOrdered By: Jeff Singer on 10-29-2023 RBC morphology finding Nom (Bld) N/A [facility] Scan and CBCOrdered By: Elodia Singer on 10-29-2023 Anisocytosis Ql (Bld) Slight Normal [facility] Comment on above: Performed By: #### H EP PLATAB #### [facility] , Basophils (Bld) [#/Vol] 0.0 10*3/uL Normal 0.0-0.2 [facility] Comment on above: Performed By: #### H EP PLATAB #### [facility] , Basophils/100 WBC (Bld) 0.7 % Normal . [facility] Comment on above: Performed By: #### H EP PLATAB #### [facility] , Eosinophils (Bld) [#/Vol] 0.1 10*3/uL Normal 0.0-0.45 [facility] Comment on above: Performed By: #### H EP PLATAB #### [facility] , Eosinophils/100 WBC (Bld) 1.7 % Normal . [facility] Comment on above: Performed By: #### H EP PLATAB #### [facility] , Erythrocyte distribution width (RBC) [Ratio] 15.1 % High 12.0-14.8 [facility] Comment on above: Performed By: #### H EP PLATAB #### [facility] , Hematocrit (Bld) [Volume fraction] 22.6 % Low 38.8-50.0 [facility] Comment on above: Performed By: #### H EP PLATAB #### [facility] , Hemoglobin (Bld) [Mass/Vol] 7.6 g/dL Low 13.0-17.0 [facility] Comment on above: Performed By: #### H EP PLATAB #### [facility] , Lymphocytes (Bld) [#/Vol] 0.4 10*3/uL Low 1.00-4.8 [facility] Comment on above: Performed By: #### H EP PLATAB #### [facility] , Lymphocytes/100 WBC (Bld) 8.2 % Normal . [facility] Comment on above: Performed By: #### H EP PLATAB #### [facility] , MCH (RBC) [Entitic mass] 28.8 pg Normal 27.5-35.2 [facility] Comment on above: Performed By: #### H EP PLATAB #### [facility] , MCV (RBC) [Entitic vol] 85.5 fL Normal 83.5-101 [facility] Comment on above: Performed By: #### H EP PLATAB #### [facility] , Monocytes (Bld) [#/Vol] 0.6 10*3/uL Normal 0.0-0.8 [facility] Comment on above: Performed By: #### H EP PLATAB #### [facility] , Monocytes/100 WBC (Bld) 12.0 % Normal . [facility] Comment on above: Performed By: #### H EP PLATAB #### [facility] , Neutrophils (Bld) [#/Vol] 4.1 10*3/uL Normal 1.8-7.7 [facility] Comment on above: Performed By: #### H EP PLATAB #### [facility] , Neutrophils/100 WBC (Bld) 77.4 % Normal . [facility] Comment on above: Performed By: #### H EP PLATAB #### [facility] , Platelet mean volume (Bld) [Entitic vol] 9.3 fL Normal 6.6-10.1 [facility] Comment on above: Performed By: #### H EP PLATAB #### [facility] , Platelets (Bld) [#/Vol] 66 10*3/uL Low 150-450 [facility] Comment on above: Performed By: #### H EP PLATAB #### [facility] , RBC (Bld) [#/Vol] 2.64 10*6/uL Low 3.90-5.60 [facility] Comment on above: Performed By: #### H EP PLATAB #### [facility] , WBC (Bld) [#/Vol] 5.4 10*3/uL Normal 4.1-10.5 [facility] Comment on above: Performed By: #### H EP PLATAB #### [facility] , Scan and CBCon 10-29-2023 Mean Corpuscular HGB Conc 33.7 g/dL Normal 32.5-35.6 [facility] Comment on above: Performed By: #### H EP PLATAB #### [facility] , NRBC% 0.0 /100{WBC} Normal 0-0.5 [facility] Comment on above: Performed By: #### H EP PLATAB #### [facility] , Ovalocytes Slight Normal [facility] Comment on above: Performed By: #### H EP PLATAB #### [facility] , Platelet Estimate Decreased Normal Normal [facility] Comment on above: Performed By: #### H EP PLATAB #### [facility] , Platelet Morphology Normal Normal Normal [facility] Comment on above: Result Comment: PERF ORMED BY: [place] [address] PATHOLOGIST SURGICAL SERVICES DIRECTOR BRANDEN WHATLEY M.D. Performed By: #### H EP PLATAB #### [facility] , Poikilocytosis Slight Normal [facility] Comment on above: Performed By: #### H EP PLATAB #### [facility] , Basic Metabolic Panelon 10-12 Anion gap [Moles/Vol] 13.7 mmol/L Normal 6.0-15.0 [facility] Comment on above: Performed By: #### B PANEL BEATER, HS TROP, PT, CBC #### [address] Calcium [Mass/Vol] 9.0 mg/dL Normal 8.6-10.3 [facility] Comment on above: Performed By: #### B PANEL BEATER, HS TROP, PT, CBC #### [address] Chloride [Moles/Vol] 95 mmol/L Low 98-107 [facility] Comment on above: Performed By: #### B PANEL BEATER, HS TROP, PT, CBC #### [address] CO2 [Moles/Vol] 26.5 mmol/L Normal 21.0-31.0 [facility] Comment on above: Performed By: #### B PANEL BEATER, HS TROP, PT, CBC #### [address] Creatinine [Mass/Vol] 4.64 mg/dL Significant change up 0.70-1.30 [facility] Comment on above: Performed By: #### B PANEL BEATER, HS TROP, PT, CBC #### [address] Creatinine Clr Calc Pharmacy 20.10 Normal [facility] Comment on above: Result Comment: PERF ORMED BY: [place] [address] PATHOLOGIST SURGICAL SERVICES DIRECTOR BRANDEN WHATLEY M.D. Performed By: #### B PANEL BEATER, HS TROP, PT, CBC #### [address] GFR/1.73 sq M.predicted MDRD (S/P/Bld) [Vol rate/Area] 12.600 mL/min/{1.73_m2} Normal [facility] Comment on above: Performed By: #### B PANEL BEATER, HS TROP, PT, CBC #### [address] Glucose [Mass/Vol] 113 mg/dL High 70-100 [facility] Comment on above: Result Comment: [place] Glucose Reference Range is dependent on time and content of last meal. Glucose of more than 200 mg/dL in a nonstressed, ambulatory subject supports the diagnosis of Diabetes Mellitus. ADA recommended reference range Performed By: #### B PANEL BEATER, HS TROP, PT, CBC #### [facility] [address] Potassium [Moles/Vol] 4.2 mmol/L Normal 3.5-5.1 [facility] Comment on above: Performed By: #### B PANEL BEATER, HS TROP, PT, CBC #### [facility] [address] Sodium [Moles/Vol] 131 mmol/L Low 136-145 [facility] Comment on above: Performed By: #### B PANEL BEATER, HS TROP, PT, CBC #### [facility] [address] Urea nitrogen [Mass/Vol] 61 mg/dL High 7-25 [facility] Comment on above: Performed By: #### B PANEL BEATER, HS TROP, PT, CBC #### [address] Diff and CBCon 10-28-2023 Anisocytosis Ql (Bld) Slight Normal [facility] Comment on above: Performed By: #### B PANEL BEATER, HS TROP, PT, CBC #### [address] Erythrocyte distribution width (RBC) [Ratio] 15.4 % High 12.0-14.8 [facility] Comment on above: Performed By: #### B PANEL BEATER, HS TROP, PT, CBC #### [address] Giant Platelet Tally 1 /100{WBC} Normal [facility] Comment on above: Performed By: #### B PANEL BEATER, HS TROP, PT, CBC #### [facility] [address] [place] [address] Hematocrit (Bld) [Volume fraction] 21.9 % Low 38.8-50.0 [facility] Comment on above: Performed By: #### B PANEL BEATER, HS TROP, PT, CBC #### [facility] [address] [place] [address] Hemoglobin (Bld) [Mass/Vol] 7.4 g/dL Low 13.0-17.0 [facility] Comment on above: Performed By: #### B PANEL BEATER, HS TROP, PT, CBC #### [address] MCH (RBC) [Entitic mass] 28.8 pg Normal 27.5-35.2 [facility] Comment on above: Performed By: #### B PANEL BEATER, HS TROP, PT, CBC #### [address] MCV (RBC) [Entitic vol] 85.1 fL Normal 83.5-101 [facility] Comment on above: Performed By: #### B PANEL BEATER, HS TROP, PT, CBC #### [address] Mean Corpuscular HGB Conc 33.8 g/dL Normal 32.5-35.6 [facility] Comment on above: Performed By: #### B PANEL BEATER, HS TROP, PT, CBC #### [address] Myelocytes 1 % High 0-0 [facility] Comment on above: Performed By: #### B PANEL BEATER, HS TROP, PT, CBC #### [address] Ovalocytes Slight Normal [facility] Comment on above: Performed By: #### B PANEL BEATER, HS TROP, PT, CBC #### [address] Platelet Estimate Decreased Normal Normal [facility] Comment on above: Performed By: #### B PANEL BEATER, HS TROP, PT, CBC #### [address] Platelet mean volume (Bld) [Entitic vol] 9.6 fL Normal 6.6-10.1 [facility] Comment on above: Performed By: #### B PANEL BEATER, HS TROP, PT, CBC #### [address] Platelet Morphology Normal Normal Normal [facility] Comment on above: Result Comment: PERF ORMED BY: [place] [address] PATHOLOGIST SURGICAL SERVICES DIRECTOR BRANDEN WHATLEY M.D. Performed By: #### B PANEL BEATER, HS TROP, PT, CBC #### [address] Platelets (Bld) [#/Vol] 61 10*3/uL Low 150-450 [facility] Comment on above: Performed By: #### B PANEL BEATER, HS TROP, PT, CBC #### [address] Poikilocytosis Slight Normal [facility] Comment on above: Performed By: #### B PANEL BEATER, HS TROP, PT, CBC #### [address] RBC (Bld) [#/Vol] 2.57 10*6/uL Low 3.90-5.60 [facility] Comment on above: Performed By: #### B PANEL BEATER, HS TROP, PT, CBC #### [address] WBC (Bld) [#/Vol] 3.0 10*3/uL Low 4.1-10.5 [facility] Comment on above: Performed By: #### B PANEL BEATER, HS TROP, PT, CBC #### [address] Diff and CBCOrdered By: Elodia Singer on 10-28-2023 Band form neutrophils/100 WBC (Bld) 7 % High 0-5 [facility] Comment on above: Performed By: #### B PANEL BEATER, HS TROP, PT, CBC #### [place] [address] [place] Eosinophils/100 WBC (Bld) 3 % Normal 1-3 [facility] Comment on above: Performed By: #### B PANEL BEATER, HS TROP, PT, CBC #### [address] Lymphocytes/100 WBC (Bld) 3 % Low 18-42 [facility] Comment on above: Performed By: #### B PANEL BEATER, HS TROP, PT, CBC #### [facility] [address] [place] [id number] [place] Monocytes/100 WBC (Bld) 5 % Normal 2-11 [facility] Comment on above: Performed By: #### B PANEL BEATER, HS TROP, PT, CBC #### [facility] [address] [place] [phone] [place] Segmented neutrophils/100 WBC (Bld) 81 % High 50-70 [facility] Comment on above: Performed By: #### B PANEL BEATER, HS TROP, PT, CBC #### [facility] [address] [place] [id number] [place] Giant platelets/100 leukocyt es [Ratio] in Blood by Manual countOrdered By: Krysta Singer on 10-28-2023 Giant platelets/100 WBC Manual cnt (Bld) [Ratio] 1 /100{WBC} [facility] Glucose Poct Glucometerson 0 10-28-2023 Glucose [Mass/Vol] 122 mg/dL Normal [facility] Comment on above: Result Comment: [facility] Glucose Reference Range is dependent on time and content of last meal. Glucose of more than 200 mg/dL in a nonstressed, ambulatory subject supports the diagnosis of Diabetes Mellitus. PERFORMED BY: [place] [address] PATHOLOGIST SURGICAL SERVICES DIRECTOR BRANDEN WHATLEY M.D. Performed By: #### B PANEL BEATER, HS TROP, PT, CBC #### [address] Glucose [Mass/Vol] 96 mg/dL Normal [facility] Comment on above: Result Comment: [place] Glucose Reference Range is dependent on time and content of last meal. Glucose of more than 200 mg/dL in a nonstressed, ambulatory subject supports the diagnosis of Diabetes Mellitus. PERFORMED BY: [place] [address] PATHOLOGIST SURGICAL SERVICES DIRECTOR BRANEDN WHATLEY M.D. Performed By: #### B PANEL BEATER, HS TROP, PT, CBC #### [facility] [address] [place] [address] [place] Glucose [Mass/Vol] 103 mg/dL Normal [facility] Comment on above: Result Comment: [facility] Glucose Reference Range is dependent on time and content of last meal. Glucose of more than 200 mg/dL in a nonstressed, ambulatory subject supports the diagnosis of Diabetes Mellitus. PERFORMED BY: [place] [address] PATHOLOGIST SURGICAL SERVICES DIRECTOR BRANDEN WHATLEY M.D. Performed By: #### B PANEL BEATER, HS TROP, PT, CBC #### [facility] [address] [place] [address] [place] Myelocytes/100 WBC Manual cn t (Bld)Ordered By: Krysta Singer on 10-28-2023 Myelocytes/100 WBC (Bld) 1 % High 0-0 [facility] Basic Metabolic Panelon 10-12 Anion gap [Moles/Vol] 12.7 mmol/L Normal 6.0-15.0 [facility] Comment on above: Performed By: #### B PANEL BEATER, HS TROP, PT, CBC #### [facility] [address] [place] [address] [place] Calcium [Mass/Vol] 9.0 mg/dL Normal 8.6-10.3 [facility] Comment on above: Performed By: #### B PANEL BEATER, HS TROP, PT, CBC #### [facility] [address] [place] [phone] [place] Chloride [Moles/Vol] 96 mmol/L Low 98-107 [facility] Comment on above: Performed By: #### B PANEL BEATER, HS TROP, PT, CBC #### [facility] [address] [place] [id number] [place] CO2 [Moles/Vol] 22.5 mmol/L Normal 21.0-31.0 [facility] Comment on above: Performed By: #### B PANEL BEATER, HS TROP, PT, CBC #### [facility] [address] [place] [phone] [place] Creatinine [Mass/Vol] 6.42 mg/dL Significant change up 0.70-1.30 [facility] Comment on above: Performed By: #### B PANEL BEATER, HS TROP, PT, CBC #### [address] Creatinine Clr Calc Pharmacy 14.53 Normal [facility] Comment on above: Result Comment: PERF ORMED BY: [place] [address] PATHOLOGIST SURGICAL SERVICES DIRECTOR BRANDEN WHATLEY M.D. Performed By: #### B PANEL BEATER, HS TROP, PT, CBC #### [place] [address] [place] GFR/1.73 sq M.predicted MDRD (S/P/Bld) [Vol rate/Area] 8.534 mL/min/{1.73_m2} Normal [facility] Comment on above: Performed By: #### B PANEL BEATER, HS TROP, PT, CBC #### [address] Glucose [Mass/Vol] 96 mg/dL Normal 70-100 [facility] Comment on above: Result Comment: [place] Glucose Reference Range is dependent on time and content of last meal. Glucose of more than 200 mg/dL in a nonstressed, ambulatory subject supports the diagnosis of Diabetes Mellitus. ADA recommended reference range Performed By: #### B PANEL BEATER, HS TROP, PT, CBC #### [address] Potassium [Moles/Vol] 4.2 mmol/L Normal 3.5-5.1 [facility] Comment on above: Performed By: #### B PANEL BEATER, HS TROP, PT, CBC #### [place] [address] [place] Sodium [Moles/Vol] 127 mmol/L Low 136-145 [facility] Comment on above: Performed By: #### B PANEL BEATER, HS TROP, PT, CBC #### [place] [address] [place] Urea nitrogen [Mass/Vol] 83 mg/dL High 7-25 [facility] Comment on above: Performed By: #### B PANEL BEATER, HS TROP, PT, CBC #### [address] [address] [place] ECG 12 lead ECGon 10-27-2023 ECG 12 lead ECG [facility] [place] [address] [place] [address] Electrocardiograph Report Signed Patient: Matt Honeycutt MR#: [id number] : 1950 Acct:[id number] Age/Sex: 73 / M ADM Date: 10/22/23 Loc: Room: [address] [place] [address] Type: ADM IN Attending Dr: Krysta Singer MD Ordering Provider: Marky Dempsey MD Date of Service: 10/27/23 ECG/ECG 12 lead ECG: prn ekg Copies to: Test Reason : Blood Pressure : */* mmHG Vent. Rate : 82 BPM Atrial Rate : 82 BPM P-R Int : 174 ms QRS Dur : 134 ms QT Int : 406 ms P-R-T Axes : 36 62 42 degrees QTcB Int : 474 ms Normal sinus rhythm Nonspecific intraventricular block Cannot rule out Anterior infarct , age undetermined Abnormal ECG When compared with ECG of 22-Oct-2023 10:47, premature ventricular complexes are no longer present Minimal criteria for Anterior infarct are now present T wave inversion no longer evident in Inferior leads T wave inversion no longer evident in Lateral leads Confirmed by [facility] ([id number]) on 10/28/2023 4:47:16 PM Referred By: Electronically Signed By: GRACIELA MUIR MD, FACC Transcribed By: MUS Signed By Aubrey Muir MD 10/28/23 1647 Normal [facility] Glucose Poct Glucometerson 0 10-27-2023 Glucose [Mass/Vol] 129 mg/dL Normal [facility] Comment on above: Result Comment: [place] Glucose Reference Range is dependent on time and content of last meal. Glucose of more than 200 mg/dL in a nonstressed, ambulatory subject supports the diagnosis of Diabetes Mellitus. PERFORMED BY: [place] [address] PATHOLOGIST SURGICAL SERVICES DIRECTOR BRANDEN WHATLEY M.D. Performed By: #### B PANEL BEATER, HS TROP, PT, CBC #### [facility] [address] [place] [address] Commemt1 Glu2: Cleaned Meter Normal [facility] Comment on above: Result Comment: PERF ORMED BY: [place] [address] PATHOLOGIST SURGICAL SERVICES DIRECTOR BRANDEN WHATLEY M.D. Performed By: #### B PANEL BEATER, HS TROP, PT, CBC #### [place] [address] [place] Glucose [Mass/Vol] 102 mg/dL Normal [facility] Comment on above: Result Comment: [place] om Glucose Reference Range is dependent on time and content of last meal. Glucose of more than 200 mg/dL in a nonstressed, ambulatory subject supports the diagnosis of Diabetes Mellitus. Performed By: #### B PANEL BEATER, HS TROP, PT, CBC #### [address] Commemt1 Glu2: Cleaned Meter Normal [facility] Comment on above: Result Comment: PERF ORMED BY: [place] [address] PATHOLOGIST SURGICAL SERVICES DIRECTOR BRANDEN WHATLEY M.D. Performed By: #### B PANEL BEATER, HS TROP, PT, CBC #### [place] [address] [place] Glucose [Mass/Vol] 95 mg/dL Normal [facility] Comment on above: Result Comment: [place] om Glucose Reference Range is dependent on time and content of last meal. Glucose of more than 200 mg/dL in a nonstressed, ambulatory subject supports the diagnosis of Diabetes Mellitus. Performed By: #### B PANEL BEATER, HS TROP, PT, CBC #### [place] [address] [place] Commemt1 Glu2: Cleaned Meter Normal [facility] Comment on above: Result Comment: PERF ORMED BY: [place] [address] PATHOLOGIST SURGICAL SERVICES DIRECTOR BRANDEN WHATLEY M.D. Performed By: #### H EP PLATAB #### [facility] , Glucose [Mass/Vol] 106 mg/dL Normal [facility] Comment on above: Result Comment: [place] Glucose Reference Range is dependent on time and content of last meal. Glucose of more than 200 mg/dL in a nonstressed, ambulatory subject supports the diagnosis of Diabetes Mellitus. Performed By: #### H EP PLATAB #### [facility] , No Panel InformationOrdered By: Krysta Singer on 10-27-2023 Bedside Glucose Comment Glu2: cleaned meter [facility] Arterial Blood Gason 024 ABG Base Excess -0.8 mmol/L Normal -3.0-3.0 [facility] Comment on above: Performed By: #### G LULS #### Point of Care testing , ABG Frac Inspired O2 32 % Normal [facility] Comment on above: Performed By: #### G LULS #### Point of Care testing , ABG Liter Flow 3 Normal [facility] Comment on above: Performed By: #### G LULS #### Point of Care testing , ABG Oxygen Content 5.3 mmol/L Low 6.6-9.7 [facility] Comment on above: Performed By: #### G LULS #### Point of Care testing , ABG Oxygen Saturation 98.4 % Normal 95.0-100.0 [facility] Comment on above: Performed By: #### G LULS #### Point of Care testing , ABG PCO2 39.6 mm[Hg] Normal 35.0-45.0 [facility] Comment on above: Performed By: #### G LULS #### Point of Care testing , ABG PH 7.40 Normal 7.35-7.45 [facility] Comment on above: Performed By: #### G LULS #### Point of Care testing , ABG PO2 127.0 mm[Hg] Off scale high 80.0-100.0 [facility] Comment on above: Performed By: #### G LULS #### Point of Care testing , Respiratory Critical Normal [facility] Comment on above: Result Comment: Crit ical Value called on: 10/26/2023 at 17:41 PERFORMED BY: [facility] [address] [place] [address] PATHOLOGIST SURGICAL SERVICES DIRECTOR BRANDEN WHATLEY M.D. Performed By: #### G LULS #### Point of Care testing , VBG Draw Site Right Brachial Normal [facility] Comment on above: Performed By: #### G LULS #### Point of Care testing , Arterial Blood GasOrdered By : Dionicio Donald on 10-26-2023 CO2 [Moles/Vol] 25.1 mmol/L Normal 23.0-27.0 [facility] Comment on above: Performed By: #### G LULS #### Point of Care testing , HCO3 (Bld) [Moles/Vol] 23.9 mmol/L Normal 23.0-29.0 [facility] Comment on above: Performed By: #### G LULS #### Point of Care testing , Basic Metabolic Panelon 10-12 Anion gap [Moles/Vol] 12.1 mmol/L Normal 6.0-15.0 [facility] Comment on above: Performed By: #### G LULS #### Point of Care testing , Calcium [Mass/Vol] 8.6 mg/dL Normal 8.6-10.3 [facility] Comment on above: Performed By: #### G LULS #### Point of Care testing , Chloride [Moles/Vol] 96 mmol/L Low 98-107 [facility] Comment on above: Performed By: #### G LULS #### Point of Care testing , CO2 [Moles/Vol] 24.9 mmol/L Normal 21.0-31.0 [facility] Comment on above: Performed By: #### G LULS #### Point of Care testing , Creatinine [Mass/Vol] 5.53 mg/dL Significant change up 0.70-1.30 [facility] Comment on above: Performed By: #### G LULS #### Point of Care testing , Creatinine Clr Calc Pharmacy 16.87 Normal [facility] Comment on above: Result Comment: PERF ORMED BY: [facility] [address] [place] [address] PATHOLOGIST SURGICAL SERVICES DIRECTOR BRANDEN WHATLEY M.D. Performed By: #### G SUSIELS #### Point of Care testing , GFR/1.73 sq M.predicted MDRD (S/P/Bld) [Vol rate/Area] 10.208 mL/min/{1.73_m2} Normal [facility] Comment on above: Performed By: #### G LULS #### Point of Care testing , Glucose [Mass/Vol] 91 mg/dL Normal 70-100 [facility] Comment on above: Result Comment: [facility] Glucose Reference Range is dependent on time and content of last meal. Glucose of more than 200 mg/dL in a nonstressed, ambulatory subject supports the diagnosis of Diabetes Mellitus. ADA recommended reference range Performed By: #### G LULS #### Point of Care testing , Potassium [Moles/Vol] 4.0 mmol/L Normal 3.5-5.1 [facility] Comment on above: Performed By: #### G LULS #### Point of Care testing , Sodium [Moles/Vol] 129 mmol/L Low 136-145 [facility] Comment on above: Performed By: #### G LULS #### Point of Care testing , Urea nitrogen [Mass/Vol] 72 mg/dL High 7-25 [facility] Comment on above: Performed By: #### G LULS #### Point of Care testing , FE PROon 10-26-2023 % Iron Saturation Not performed Normal 20-50 [facility] Comment on above: Performed By: #### G LULS #### Point of Care testing , Total Iron Binding Capacity Not performed Normal 255-450 [facility] Comment on above: Performed By: #### G LULS #### Point of Care testing , FE PROOrdered By: Norma martin on 10-26-2023 Ferritin [Mass/Vol] 1013.9 ng/mL High 23.9-336.2 [facility] Comment on above: Performed By: #### G LULS #### Point of Care testing , Iron [Mass/Vol] 52 ug/dL Normal 50-212 [facility] Comment on above: Performed By: #### G LULS #### Point of Care testing , Transferrin [Mass/Vol] mg/dL Low 203-362 [facility] Comment on above: Performed By: #### G LULS #### Point of Care testing , Folate [Mass/volume] in Seru m or PlasmaOrdered By: Dionicio Donald on 10-26-2023 Folate [Mass/Vol] 9.8 ng/mL >5.9 [facility] Comment on above: Folate reference ran ge: >5.9 ng/mlThe WHO technical consultation on folate and vitamin [id number] has determined that folate concentrations lessthan 4 ng/ml are considered deficient. Glucose Poct Glucometerson 0 10-26-2023 Glucose [Mass/Vol] 145 mg/dL Normal [facility] Comment on above: Result Comment: [place] Glucose Reference Range is dependent on time and content of last meal. Glucose of more than 200 mg/dL in a nonstressed, ambulatory subject supports the diagnosis of Diabetes Mellitus. PERFORMED BY: [address] [address] PATHOLOGIST SURGICAL SERVICES DIRECTOR BRANDEN WHATLEY M.D. Performed By: #### H EP PLATAB #### [facility] , Glucose [Mass/Vol] 110 mg/dL Normal [facility] Comment on above: Result Comment: [place] Glucose Reference Range is dependent on time and content of last meal. Glucose of more than 200 mg/dL in a nonstressed, ambulatory subject supports the diagnosis of Diabetes Mellitus. PERFORMED BY: [address] [address] PATHOLOGIST SURGICAL SERVICES DIRECTOR BRANDEN WHATLEY M.D. Performed By: #### G LULS #### Point of Care testing , Glucose [Mass/Vol] 103 mg/dL Normal [facility] Comment on above: Result Comment: [place] Glucose Reference Range is dependent on time and content of last meal. Glucose of more than 200 mg/dL in a nonstressed, ambulatory subject supports the diagnosis of Diabetes Mellitus. PERFORMED BY: [facility] [address] [place] [address] PATHOLOGIST SURGICAL SERVICES DIRECTOR BRANDEN WHATLEY M.D. Performed By: #### G LULS #### Point of Care testing , Glucose [Mass/Vol] 121 mg/dL Normal [facility] Comment on above: Result Comment: [facility] Glucose Reference Range is dependent on time and content of last meal. Glucose of more than 200 mg/dL in a nonstressed, ambulatory subject supports the diagnosis of Diabetes Mellitus. PERFORMED BY: [facility] [address] [place] [address] PATHOLOGIST SURGICAL SERVICES DIRECTOR BARNDEN WHATLEY M.D. Performed By: #### G LULS #### Point of Care testing , Iron binding capacity [Mass/ volume] in Serum or PlasmaOrdered By: Norma Lopez on 10-26-2023 Iron binding capacity [Mass/Vol] [facility] Comment on above: Test not performed Iron saturation [Mass Fracti on] in Serum or PlasmaOrdered By: Norma Lopez on 10-26-2023 Iron saturation [Mass fraction] [facility] Comment on above: Test not performed No Panel InformationOrdered By: Dionicio Donald on 10-26-2023 Arterial Blood Base Excess -0.8 mmol/L -3.0-3.0 [facility] Arterial Blood Oxygen Content 5.3 mmol/L Low 6.6-9.7 [facility] Arterial Blood Oxygen Saturation 98.4 % 95.0-100.0 [facility] Arterial Blood Partial Pressure CO2 39.6 mm[Hg] 35.0-45.0 [facility] Arterial Blood Partial Pressure O2 127.0 mm[Hg] High 80.0-100.0 [facility] Arterial Blood pH 7.40 7.35-7.45 [facility] Blood Gas Critical Value See comment [facility] Comment on above: Critical Value pascal d on: 10/26/2023 at 17:41 Blood Gas Liter Flow 3 L/min [facility] Blood Gas Sample Site Right brachial [facility] FiO2 32 % [facility] Vit. B12/Folate ProfileOrder ed By: Dionicio Donald on 10-26-2023 Cobalamin (Vitamin B12) [Mass/Vol] 607 pg/mL Normal 180-914 [facility] Comment on above: Performed By: #### G LULS #### Point of Care testing , Vit. B12/Folate Profileon Folate 9.8 ng/mL Normal >5.9 [facility] Comment on above: Result Comment: Adrianna te reference range: >5.9 ng/ml The WHO technical consultation on folate and vitamin b12 deficiencies has determined that folate concentrations less than 4 ng/ml are considered deficient. PERFORMED BY: [address] [place] [id number] PATHOLOGIST SURGICAL SERVICES DIRECTOR BRANDEN WHATLEY M.D. Performed By: #### G LULS #### Point of Care testing , Glucose Poct Glucometerson 0 10-25-2023 Commemt1 Glu2: Cleaned Meter Normal [facility] Comment on above: Result Comment: PERF ORMED BY: [address] [place] [address] PATHOLOGIST SURGICAL SERVICES DIRECTOR BRANDEN WHATLEY M.D. Performed By: #### G LULS #### Point of Care testing , Glucose [Mass/Vol] 177 mg/dL Normal [facility] Comment on above: Result Comment: [place] om Glucose Reference Range is dependent on time and content of last meal. Glucose of more than 200 mg/dL in a nonstressed, ambulatory subject supports the diagnosis of Diabetes Mellitus. Performed By: #### G LULS #### Point of Care testing , Commemt1 Glu2: Cleaned Meter Normal [facility] Comment on above: Result Comment: PERF ORMED BY: [address] [place] [address] PATHOLOGIST SURGICAL SERVICES DIRECTOR BRANDEN WHATLEY M.D. Performed By: #### G LULS #### Point of Care testing , Glucose [Mass/Vol] 95 mg/dL Normal [facility] Comment on above: Result Comment: [place] om Glucose Reference Range is dependent on time and content of last meal. Glucose of more than 200 mg/dL in a nonstressed, ambulatory subject supports the diagnosis of Diabetes Mellitus. Performed By: #### G LULS #### Point of Care testing , Glucose [Mass/Vol] 117 mg/dL Normal [facility] Comment on above: Result Comment: [facility] Glucose Reference Range is dependent on time and content of last meal. Glucose of more than 200 mg/dL in a nonstressed, ambulatory subject supports the diagnosis of Diabetes Mellitus. PERFORMED BY: [address] [place] [address] PATHOLOGIST SURGICAL SERVICES DIRECTOR BRANDEN WHATLEY M.D. Performed By: #### G LULS #### Point of Care testing , Glucose [Mass/Vol] 107 mg/dL Normal [facility] Comment on above: Result Comment: [facility] Glucose Reference Range is dependent on time and content of last meal. Glucose of more than 200 mg/dL in a nonstressed, ambulatory subject supports the diagnosis of Diabetes Mellitus. PERFORMED BY: [facility] [address] [place] [address] PATHOLOGIST SURGICAL SERVICES DIRECTOR BRANDEN WHATLEY M.D. Performed By: #### G LULS #### Point of Care testing , Basic Metabolic Panelon 10-12 Anion gap [Moles/Vol] 14.8 mmol/L Normal 6.0-15.0 [facility] Comment on above: Performed By: #### G LULS #### Point of Care testing , Calcium [Mass/Vol] 8.6 mg/dL Normal 8.6-10.3 [facility] Comment on above: Performed By: #### G LULS #### Point of Care testing , Chloride [Moles/Vol] 97 mmol/L Low 98-107 [facility] Comment on above: Performed By: #### G LULS #### Point of Care testing , CO2 [Moles/Vol] 24.2 mmol/L Normal 21.0-31.0 [facility] Comment on above: Performed By: #### G LULS #### Point of Care testing , Creatinine [Mass/Vol] 6.64 mg/dL Significant change up 0.70-1.30 [facility] Comment on above: Performed By: #### G LULS #### Point of Care testing , Creatinine Clr Calc Pharmacy 14.05 Normal [facility] Comment on above: Result Comment: PERF ORMED BY: [facility] [address] [place] [address] PATHOLOGIST SURGICAL SERVICES DIRECTOR BRANDEN WHATLEY M.D. Performed By: #### G LULS #### Point of Care testing , GFR/1.73 sq M.predicted MDRD (S/P/Bld) [Vol rate/Area] 8.196 mL/min/{1.73_m2} Normal [facility] Comment on above: Performed By: #### G LULS #### Point of Care testing , Glucose [Mass/Vol] 102 mg/dL High 70-100 [facility] Comment on above: Result Comment: [place] Glucose Reference Range is dependent on time and content of last meal. Glucose of more than 200 mg/dL in a nonstressed, ambulatory subject supports the diagnosis of Diabetes Mellitus. ADA recommended reference range Performed By: #### G LULS #### Point of Care testing , Potassium [Moles/Vol] 3.0 mmol/L Low 3.5-5.1 [facility] Comment on above: Performed By: #### G LULS #### Point of Care testing , Sodium [Moles/Vol] 133 mmol/L Low 136-145 [facility] Comment on above: Performed By: #### G LULS #### Point of Care testing , Urea nitrogen [Mass/Vol] 95 mg/dL Significant change up 11-05 [facility] Comment on above: Performed By: #### G LULS #### Point of Care testing , Glucose Poct Glucometerson 0 10-24-2023 Glucose [Mass/Vol] 120 mg/dL Normal [facility] Comment on above: Result Comment: [place] om Glucose Reference Range is dependent on time and content of last meal. Glucose of more than 200 mg/dL in a nonstressed, ambulatory subject supports the diagnosis of Diabetes Mellitus. PERFORMED BY: [facility] [address] [place] [address] PATHOLOGIST SURGICAL SERVICES DIRECTOR BRANDEN WHATLEY M.D. Performed By: #### G LULS #### Point of Care testing , Glucose [Mass/Vol] 117 mg/dL Normal [facility] Comment on above: Result Comment: [place] Glucose Reference Range is dependent on time and content of last meal. Glucose of more than 200 mg/dL in a nonstressed, ambulatory subject supports the diagnosis of Diabetes Mellitus. PERFORMED BY: [place] [address] PATHOLOGIST SURGICAL SERVICES DIRECTOR BRANDEN WHATLEY M.D. Performed By: #### G LULS #### Point of Care testing , Glucose [Mass/Vol] 117 mg/dL Normal [facility] Comment on above: Result Comment: [facility] Glucose Reference Range is dependent on time and content of last meal. Glucose of more than 200 mg/dL in a nonstressed, ambulatory subject supports the diagnosis of Diabetes Mellitus. PERFORMED BY: [place] [address] PATHOLOGIST SURGICAL SERVICES DIRECTOR BRANDEN WHATLEY M.D. Performed By: #### G LULS #### Point of Care testing , Hepatitis Acute Panelon 10-12 HBsAg Screen Negative Normal Negative [facility] Comment on above: Order Comment: LINE DRAW Performed By: #### B PANEL BEATER, HS TROP, PT, CBC #### [address] Hepatitis A Antibody IgM Negative Normal Negative [facility] Comment on above: Order Comment: LINE DRAW Performed By: #### B PANEL BEATER, HS TROP, PT, CBC #### [address] Hepatitis B Core Antibody IgM Negative Normal Negative [facility] Comment on above: Order Comment: LINE DRAW Performed By: #### B PANEL BEATER, HS TROP, PT, CBC #### [address] Hepatitis C Virus Antibody Non-Reactive Normal Non Reactive [facility] Comment on above: Order Comment: LINE DRAW Performed By: #### B PANEL BEATER, HS TROP, PT, CBC #### [address] Interpretation Hepatitis C Normal . [facility] Comment on above: Order Comment: LINE DRAW Result Comment: Not infected with HCV unless early or acute infection is suspected (which may be delayed in an immunocompromised individual), or other evidence exists to indicate HCV infection. Performed at: - [facility] [id number] Jr. Systems Administrator: Mata Pérez PhD, Phone: [phone] PERFORMED BY: [place] [address] PATHOLOGIST SURGICAL SERVICES DIRECTOR BRANDEN WHATLEY M.D. Performed By: #### B PANEL BEATER, HS TROP, PT, CBC #### [address] Hepatitis B virus surface Ag [Presence] in Serum or Plasma by ImmunoassayOrdered By: Norma Lopez on 10-24-2023 HBV surface Ag IA Ql Negative Negative [facility] Hepatitis C virus IgG Ab [Pr esence] in Serum or Plasma by ImmunoassayOrdered By: Norma Lopez on 10-24-2023 HCV IgG IA Ql Non-Reactive Non Reactive [facility] Hepatitis C virus RNA [Units /volume] (viral load) in Serum or Plasma by JASON with probOrdered By: Norma Lopez on 10-24-2023 HCV RNA JASON+probe Qn N/A [facility] Hepatitis C virus RNA [log u nits/volume] (viral load) in Serum or Plasma by JASON withOrdered By: Norma Lopez on 10-24-2023 HCV RNA JASON+probe [Log units/Vol] N/A [facility] No Panel InformationOrdered By: Norma Lopez on 10-24-2023 Hepatitis A IgM Antibody Negative Negative [facility] Hepatitis B Core IgM Antibody Negative Negative [facility] Hepatitis C Interpretation See comment . [facility] Comment on above: Not infected with HC V unless early or acute infection issuspected (which may be delayed in an immunocompromisedindividual), or other evidence exists to indicate HCVinfection.Performed at: [facility] [id number] Director: Mata Pérez PhD, Phone: [phone] Basic Metabolic Panelon 10-12 Anion gap [Moles/Vol] 21.5 mmol/L High 6.0-15.0 [facility] Comment on above: Performed By: #### B PANEL BEATER, HS TROP, PT, CBC #### [facility] [address] Calcium [Mass/Vol] 8.6 mg/dL Normal 8.6-10.3 [facility] Comment on above: Performed By: #### B PANEL BEATER, HS TROP, PT, CBC #### [address] Chloride [Moles/Vol] 99 mmol/L Normal 98-107 [facility] Comment on above: Performed By: #### B PANEL BEATER, HS TROP, PT, CBC #### [address] CO2 [Moles/Vol] 16.0 mmol/L Low 21.0-31.0 [facility] Comment on above: Performed By: #### B PANEL BEATER, HS TROP, PT, CBC #### [address] Creatinine [Mass/Vol] 8.87 mg/dL Significant change up 0.70-1.30 [facility] Comment on above: Performed By: #### B PANEL BEATER, HS TROP, PT, CBC #### [place] [address] [place] Creatinine Clr Calc Pharmacy 10.52 Normal [facility] Comment on above: Performed By: #### B PANEL BEATER, HS TROP, PT, CBC #### [place] [address] [place] GFR/1.73 sq M.predicted MDRD (S/P/Bld) [Vol rate/Area] 5.791 mL/min/{1.73_m2} Normal [facility] Comment on above: Performed By: #### B PANEL BEATER, HS TROP, PT, CBC #### [address] Glucose [Mass/Vol] 129 mg/dL High 70-100 [facility] Comment on above: Result Comment: [place] Glucose Reference Range is dependent on time and content of last meal. Glucose of more than 200 mg/dL in a nonstressed, ambulatory subject supports the diagnosis of Diabetes Mellitus. ADA recommended reference range Performed By: #### B PANEL BEATER, HS TROP, PT, CBC #### [address] Potassium [Moles/Vol] 3.5 mmol/L Normal 3.5-5.1 [facility] Comment on above: Performed By: #### B PANEL BEATER, HS TROP, PT, CBC #### [address] Sodium [Moles/Vol] 133 mmol/L Low 136-145 [facility] Comment on above: Performed By: #### B PANEL BEATER, HS TROP, PT, CBC #### [address] Urea nitrogen [Mass/Vol] 143 mg/dL High 7-25 [facility] Comment on above: Performed By: #### B PANEL BEATER, HS TROP, PT, CBC #### [address] Complete Blood Count Auto Di ffon 10-23-2023 Basophils (Bld) [#/Vol] 0.0 10*3/uL Normal 0.0-0.2 [facility] Comment on above: Result Comment: PERF ORMED BY: [place] [address] PATHOLOGIST SURGICAL SERVICES DIRECTOR BRANDEN WHATLEY M.D. Performed By: #### B PANEL BEATER, HS TROP, PT, CBC #### [place] [address] [place] Basophils/100 WBC (Bld) 0.2 % Normal . [facility] Comment on above: Performed By: #### B PANEL BEATER, HS TROP, PT, CBC #### [place] [address] [place] Eosinophils (Bld) [#/Vol] 0.1 10*3/uL Normal 0.0-0.45 [facility] Comment on above: Performed By: #### B PANEL BEATER, HS TROP, PT, CBC #### [address] Eosinophils/100 WBC (Bld) 0.7 % Normal . [facility] Comment on above: Performed By: #### B PANEL BEATER, HS TROP, PT, CBC #### [address] Erythrocyte distribution width (RBC) [Ratio] 16.5 % High 12.0-14.8 [facility] Comment on above: Performed By: #### B PANEL BEATER, HS TROP, PT, CBC #### [address] Hematocrit (Bld) [Volume fraction] 25.3 % Low 38.8-50.0 [facility] Comment on above: Performed By: #### B PANEL BEATER, HS TROP, PT, CBC #### [address] Hemoglobin (Bld) [Mass/Vol] 8.6 g/dL Low 13.0-17.0 [facility] Comment on above: Performed By: #### B PANEL BEATER, HS TROP, PT, CBC #### [address] Lymphocytes (Bld) [#/Vol] 0.5 10*3/uL Low 1.00-4.8 [facility] Comment on above: Performed By: #### B PANEL BEATER, HS TROP, PT, CBC #### [address] Lymphocytes/100 WBC (Bld) 4.1 % Normal . [facility] Comment on above: Performed By: #### B PANEL BEATER, HS TROP, PT, CBC #### [address] MCH (RBC) [Entitic mass] 28.9 pg Normal 27.5-35.2 [facility] Comment on above: Performed By: #### B PANEL BEATER, HS TROP, PT, CBC #### [address] MCV (RBC) [Entitic vol] 85.0 fL Normal 83.5-101 [facility] Comment on above: Performed By: #### B PANEL BEATER, HS TROP, PT, CBC #### [address] Mean Corpuscular HGB Conc 34.0 g/dL Normal 32.5-35.6 [facility] Comment on above: Performed By: #### B PANEL BEATER, HS TROP, PT, CBC #### [address] Monocytes (Bld) [#/Vol] 1.1 10*3/uL High 0.0-0.8 [facility] Comment on above: Performed By: #### B PANEL BEATER, HS TROP, PT, CBC #### [address] Monocytes/100 WBC (Bld) 7.9 % Normal . [facility] Comment on above: Performed By: #### B PANEL BEATER, HS TROP, PT, CBC #### [address] Neutrophils (Bld) [#/Vol] 11.6 10*3/uL High 1.8-7.7 [facility] Comment on above: Performed By: #### B PANEL BEATER, HS TROP, PT, CBC #### [address] Neutrophils/100 WBC (Bld) 87.1 % Normal . [facility] Comment on above: Performed By: #### B PANEL BEATER, HS TROP, PT, CBC #### [address] NRBC% 0.1 /100{WBC} Normal 0-0.5 [facility] Comment on above: Performed By: #### B PANEL BEATER, HS TROP, PT, CBC #### [address] Platelet mean volume (Bld) [Entitic vol] 8.7 fL Normal 6.6-10.1 [facility] Comment on above: Performed By: #### B PANEL BEATER, HS TROP, PT, CBC #### [facility] [address] [place] [address] [place] Platelets (Bld) [#/Vol] 92 10*3/uL Low 150-450 [facility] Comment on above: Performed By: #### B PANEL BEATER, HS TROP, PT, CBC #### [facility] [address] RBC (Bld) [#/Vol] 2.97 10*6/uL Low 3.90-5.60 [facility] Comment on above: Performed By: #### B PANEL BEATER, HS TROP, PT, CBC #### [facility] [address] [place] [address] [place] WBC (Bld) [#/Vol] 13.3 10*3/uL High 4.1-10.5 [facility] Comment on above: Performed By: #### B PANEL BEATER, HS TROP, PT, CBC #### [facility] [address] echo transthoracicon [facility] echo transthoracic [facility] [place] [address] [place] [address] Echocardiogram Signed Patient: Matt Honeycutt MR#: [id number] : 1950 Acct:[id number] Age/Sex: 73 / M ADM Date: 10/22/23 Loc: Room: [address] [place] [address] Type: ADM IN Attending Dr: Dionicio Donald MD Ordering Provider: Dionicio Donald MD Date of Service: 10/22/2302/04/1157 [facility] echo transthoracic: [place] Copies to: MD Alfred Strange MD, [facility] Weight: 296 lb Performed By: RODRIGUEZ Polo BSA: 2.5 m2 BP: 121/54 mmHg HR: 73 Reason For Study: VT History: weakness Interpretation Summary The left ventricular size, thickness and function are normal Ejection Fraction = 60-65%. Apical aneurysm with dyskinesia is noted No left ventricular thrombus or mass is seen. There is left ventricular diastolic dysfunction. There is no prior echocardiogram noted for this patient. Procedure/Quality: A two-dimensional transthoracic echocardiogram with color flow, Doppler and injection of contrast agent Definity was performed. The study was technically fair in quality. There is no prior echocardiogram noted for this patient. Left Ventricle: The left ventricular size, thickness and function are normal. Ejection Fraction = 60-65%. There is left ventricular diastolic dysfunction. Apical aneurysm with dyskinesia is noted. No left ventricular thrombus or mass is seen. Left Atrium: The left atrium appears normal in size. The atrial septum appears normal. Right Atrium: The right atrium appears normal in size. Right Ventricle: The right ventricular size, thickness and function are normal. Aortic Valve: The aortic valve is not well visualized. Mitral Valve: The mitral valve is normal in structure and function. Tricuspid Valve: The tricuspid valve is normal in structure. Pulmonic Valve: The pulmonic valve is not well visualized. Arteries: The aortic root is normal size. Pericardium/Pleura: No pericardial effusion seen. There is no pleural effusion. IVC/Hepatic Veins: The IVC is normal in size with an inspiratory collapse of greater then 50%, suggesting normal right atrial pressure. Miscellaneous: No thrombus, vegetation or mass is seen. Measurements with Normals IVSd: 1.7 cm (0.7-1.1 cm)LVIDd: 4.5 cm (3.7-5.4 cm) LVPWd: 1.1 cm (0.7-1.1 cm)LVIDs: 3.2 cm (2.3-3.6 cm) LA dimension: 2.8 cm (2.3-4.0 cm)Ao root diam: 2.5 cm(2.0-3.6 cm) asc Aorta Diam: 3.7 cm(2.1-3.4cm) Doppler with Normals RVSP(TR): 14.7 mmHg (18-35mmHg) LV V1 max: 78.0 cm/sec (0.7-1.7m/s)MV E max phuong: 78.8 cm/sec(0.8-1.3m/s) MV A max phuong: 90.0 cm/sec(0.0-0.0m/s) MV E/A: 0.88 (<1.5) MMode/2D Measurements Calculations FS: 28.2 % Ao root area: LVOT diam: 2.0 cm LVLd ap4: 7.9 cm EDV(Teich): 5.0 cm2 LVOT area: 3.1 cm2 EDV(MOD-sp4): 92.2 ml 105.0 ml ESV(Teich): LVLs ap4: 7.2 cm 41.8 ml ESV(MOD-sp4): EF(Teich): 54.7 % 58.3 ml EF(MOD-sp4): 44.5 % __ SV(MOD-sp4): LAV(MOD-sp4): LA A2 area: 20.2 cm2 46.7 ml 41.6 ml LAV(MOD-sp2): LA A4 area: 17.6 cm2 60.8 ml LA length (vol): 5.7 cm LA vol: 52.9 ml LA vol index: 21.0 ml/m2 Doppler Measurements Calculations MV dec time: MV V2 max: E/E' lat: 7.6 MV dec slope: 0.29 sec 88.7 cm/sec E/E' med: 19.1 MV max P.1 mmHg 276.4 cm/sec2 MV V2 mean: 57.1 cm/sec MV mean P.5 mmHg MV V2 VTI: 26.2 cm MVA(VTI): 2.4 cm2 __ Ao V2 max: LV V1 max PG: TV max PG: TR max phuong: 159.0 cm/sec 2.4 mmHg 10.0 mmHg 155.6 cm/sec Ao max P.1 mmHgLV V1 mean PG: TR max P.7 mmHg Ao mean P.1 mmHg1.5 mmHg RAP systole: 5.0 mmHg Ao V2 mean: LV V1 mean: 118.7 cm/sec 58.7 cm/sec Ao V2 VTI: 32.2 cm LV V1 VTI: 20.2 cm SUZETTE(I,D): 1.9 cm2 SUZETTE(V,D): 1.5 cm2 Transcribed By: MAURICE Performed At: 10/23/23 0856 Signed By: Alfred Dalye MD, [facility] 10/23/23 1750 Normal [facility] Glucose Poct Glucometerson 0 10-23-2023 Commemt1 Glu2: Cleaned Meter Normal [facility] Comment on above: Result Comment: PERF ORMED BY: [place] [address] PATHOLOGIST SURGICAL SERVICES DIRECTOR BRANDEN WHATLEY M.D. Performed By: #### H EP PLATAB #### [facility] , Glucose [Mass/Vol] 228 mg/dL Normal [facility] Comment on above: Result Comment: [place] om Glucose Reference Range is dependent on time and content of last meal. Glucose of more than 200 mg/dL in a nonstressed, ambulatory subject supports the diagnosis of Diabetes Mellitus. Performed By: #### H EP PLATAB #### [facility] , Glucose [Mass/Vol] 147 mg/dL Normal [facility] Comment on above: Result Comment: [place] om Glucose Reference Range is dependent on time and content of last meal. Glucose of more than 200 mg/dL in a nonstressed, ambulatory subject supports the diagnosis of Diabetes Mellitus. PERFORMED BY: [place] [address] PATHOLOGIST SURGICAL SERVICES DIRECTOR BRANDEN WHATLEY M.D. Performed By: #### H EP PLATAB #### [facility] , Glucose [Mass/Vol] 118 mg/dL Normal [facility] Comment on above: Result Comment: [place] om Glucose Reference Range is dependent on time and content of last meal. Glucose of more than 200 mg/dL in a nonstressed, ambulatory subject supports the diagnosis of Diabetes Mellitus. PERFORMED BY: [place] [address] PATHOLOGIST SURGICAL SERVICES DIRECTOR BRANDEN WHATLEY M.D. Performed By: #### B PANEL BEATER, HS TROP, PT, CBC #### [address] MagnesiumOrdered By: Norma han on 10-23-2023 Magnesium [Mass/Vol] 2.0 mg/dL Normal 1.9-2.7 [facility] Comment on above: Result Comment: PERF ORMED BY: [facility] [address] [place] [address] PATHOLOGIST SURGICAL SERVICES DIRECTOR BRANDEN WHATLEY M.D. Performed By: #### B PANEL BEATER, HS TROP, PT, CBC #### [facility] [address] [place] [id number] [place] Albumin [Mass/volume] in Ser um or Plasma by Bromocresol green (BCG) dye binding methoOrdered By: Norma Lopez on 10-22-2023 Albumin BCG dye [Mass/Vol] 2.4 g/dL Low 3.5-5.7 [facility] B-Type Natriuretic PeptideOr dered By: Marky Dempsey on 10-22-2023 Natriuretic peptide B (Bld) [Mass/Vol] 297.0 pg/mL High 5-100 [facility] Comment on above: Result Comment: PERF ORMED BY: [facility] [address] [place] [address] PATHOLOGIST SURGICAL SERVICES DIRECTOR BRANDEN WHATLEY M.D. Performed By: #### B PANEL BEATER, HS TROP, PT, CBC #### [facility] [address] [place] [address] [place] Bacteria [Presence] in Urine by AutomatedOrdered By: Marky Dempsey on 10-22-2023 Bacteria Auto Ql (U) 1+ [HPF] High None Seen [facility] Beta Hydroxybuterateon 10-21 Beta Hydroxybuterate 0.27 mmol/L Normal 0.02-0.27 [facility] Comment on above: Result Comment: PERF ORMED BY: [place] [address] PATHOLOGIST SURGICAL SERVICES DIRECTOR BRANDEN WHATLEY M.D. Performed By: #### B PANEL BEATER, HS TROP, PT, CBC #### [facility] [address] [place] [address] [place] Beta hydroxybutyrate [Moles/ volume] in Serum or PlasmaOrdered By: Markyrobert Dempsey on 10-22-2023 Beta hydroxybutyrate [Moles/Vol] 0.27 mmol/L 0.02-0.27 [facility] Bilirubin Test strip Ql (U)O rdered By: Maryk Ke on 10-22-2023 Bilirubin Ql (U) Negative Negative [facility] Complete Blood Count Auto Di ffon 10-22-2023 Basophils (Bld) [#/Vol] 0.0 10*3/uL Normal 0.0-0.2 [facility] Comment on above: Result Comment: PERF ORMED BY: [place] [address] PATHOLOGIST SURGICAL SERVICES DIRECTOR BRANDEN WHATLEY M.D. Performed By: #### B PANEL BEATER, HS TROP, PT, CBC #### [address] Basophils/100 WBC (Bld) 0.3 % Normal . [facility] Comment on above: Performed By: #### B PANEL BEATER, HS TROP, PT, CBC #### [address] Eosinophils (Bld) [#/Vol] 0.1 10*3/uL Normal 0.0-0.45 [facility] Comment on above: Performed By: #### B PANEL BEATER, HS TROP, PT, CBC #### [address] Eosinophils/100 WBC (Bld) 0.6 % Normal . [facility] Comment on above: Performed By: #### B PANEL BEATER, HS TROP, PT, CBC #### [address] Erythrocyte distribution width (RBC) [Ratio] 16.3 % High 12.0-14.8 [facility] Comment on above: Performed By: #### B PANEL BEATER, HS TROP, PT, CBC #### [address] Hematocrit (Bld) [Volume fraction] 29.8 % Low 38.8-50.0 [facility] Comment on above: Performed By: #### B PANEL BEATER, HS TROP, PT, CBC #### [address] Hemoglobin (Bld) [Mass/Vol] 9.9 g/dL Low 13.0-17.0 [facility] Comment on above: Performed By: #### B PANEL BEATER, HS TROP, PT, CBC #### [address] Lymphocytes (Bld) [#/Vol] 0.5 10*3/uL Low 1.00-4.8 [facility] Comment on above: Performed By: #### B PANEL BEATER, HS TROP, PT, CBC #### [address] Lymphocytes/100 WBC (Bld) 4.0 % Normal . [facility] Comment on above: Performed By: #### B PANEL BEATER, HS TROP, PT, CBC #### [address] MCH (RBC) [Entitic mass] 29.2 pg Normal 27.5-35.2 [facility] Comment on above: Performed By: #### B PANEL BEATER, HS TROP, PT, CBC #### [address] MCV (RBC) [Entitic vol] 87.6 fL Normal 83.5-101 [facility] Comment on above: Performed By: #### B PANEL BEATER, HS TROP, PT, CBC #### [address] Mean Corpuscular HGB Conc 33.3 g/dL Normal 32.5-35.6 [facility] Comment on above: Performed By: #### B PANEL BEATER, HS TROP, PT, CBC #### [address] Monocytes (Bld) [#/Vol] 1.0 10*3/uL High 0.0-0.8 [facility] Comment on above: Performed By: #### B PANEL BEATER, HS TROP, PT, CBC #### [address] Monocytes/100 WBC (Bld) 7.7 % Normal . [facility] Comment on above: Performed By: #### B PANEL BEATER, HS TROP, PT, CBC #### [address] Neutrophils (Bld) [#/Vol] 11.7 10*3/uL High 1.8-7.7 [facility] Comment on above: Performed By: #### B PANEL BEATER, HS TROP, PT, CBC #### [address] Neutrophils/100 WBC (Bld) 87.4 % Normal . [facility] Comment on above: Performed By: #### B PANEL BEATER, HS TROP, PT, CBC #### [address] NRBC% 0.0 /100{WBC} Normal 0-0.5 [facility] Comment on above: Performed By: #### B PANEL BEATER, HS TROP, PT, CBC #### [address] Platelet mean volume (Bld) [Entitic vol] 8.6 fL Normal 6.6-10.1 [facility] Comment on above: Performed By: #### B PANEL BEATER, HS TROP, PT, CBC #### [place] [address] [place] Platelets (Bld) [#/Vol] 74 10*3/uL Low 150-450 [facility] Comment on above: Performed By: #### B PANEL BEATER, HS TROP, PT, CBC #### [place] [address] [place] RBC (Bld) [#/Vol] 3.40 10*6/uL Low 3.90-5.60 [facility] Comment on above: Performed By: #### B PANEL BEATER, HS TROP, PT, CBC #### [place] [address] [place] WBC (Bld) [#/Vol] 13.4 10*3/uL High 4.1-10.5 [facility] Comment on above: Performed By: #### B PANEL BEATER, HS TROP, PT, CBC #### [address] Comprehensive Metabolic Pane real 10-22-2023 Albumin [Mass/Vol] 2.1 g/dL Low 3.5-5.7 [facility] Comment on above: Performed By: #### B PANEL BEATER, HS TROP, PT, CBC #### [address] Anion gap [Moles/Vol] 23.9 mmol/L High 6.0-15.0 [facility] Comment on above: Performed By: #### B PANEL BEATER, HS TROP, PT, CBC #### [address] Calcium [Mass/Vol] 8.6 mg/dL Normal 8.6-10.3 [facility] Comment on above: Performed By: #### B PANEL BEATER, HS TROP, PT, CBC #### [address] Chloride [Moles/Vol] 102 mmol/L Normal 98-107 [facility] Comment on above: Performed By: #### B PANEL BEATER, HS TROP, PT, CBC #### [address] CO2 [Moles/Vol] 9.4 mmol/L Low 21.0-31.0 [facility] Comment on above: Performed By: #### B PANEL BEATER, HS TROP, PT, CBC #### [address] Creatinine [Mass/Vol] 10.75 mg/dL High 0.70-1.30 [facility] Comment on above: Performed By: #### B PANEL BEATER, HS TROP, PT, CBC #### [address] Creatinine Clr Calc Pharmacy 8.68 Normal [facility] Comment on above: Performed By: #### B PANEL BEATER, HS TROP, PT, CBC #### [address] GFR/1.73 sq M.predicted MDRD (S/P/Bld) [Vol rate/Area] 4.597 mL/min/{1.73_m2} Normal [facility] Comment on above: Performed By: #### B PANEL BEATER, HS TROP, PT, CBC #### [address] Glucose [Mass/Vol] 129 mg/dL High 70-100 [facility] Comment on above: Result Comment: [place] Glucose Reference Range is dependent on time and content of last meal. Glucose of more than 200 mg/dL in a nonstressed, ambulatory subject supports the diagnosis of Diabetes Mellitus. ADA recommended reference range Performed By: #### B PANEL BEATER, HS TROP, PT, CBC #### [address] Potassium [Moles/Vol] 4.3 mmol/L Normal 3.5-5.1 [facility] Comment on above: Performed By: #### B PANEL BEATER, HS TROP, PT, CBC #### [address] Sodium [Moles/Vol] 131 mmol/L Low 136-145 [facility] Comment on above: Performed By: #### B PANEL BEATER, HS TROP, PT, CBC #### [address] Urea nitrogen [Mass/Vol] 192 mg/dL High 7-25 [facility] Comment on above: Performed By: #### B PANEL BEATER, HS TROP, PT, CBC #### [address] Comprehensive Metabolic Pane lOrdered By: Marky Dempsey on 10-22-2023 Albumin/Globulin [Mass ratio] 0.8 {ratio} Normal [facility] Comment on above: Performed By: #### B PANEL BEATER, HS TROP, PT, CBC #### [address] ALP [Catalytic activity/Vol] 123 U/L High 34-104 [facility] Comment on above: Performed By: #### B PANEL BEATER, HS TROP, PT, CBC #### [facility] [address] [place] [address] [place] ALT [Catalytic activity/Vol] 32 U/L Normal 7-52 [facility] Comment on above: Performed By: #### B PANEL BEATER, HS TROP, PT, CBC #### [facility] [address] [place] [address] [place] AST [Catalytic activity/Vol] 17 U/L Normal 13-39 [facility] Comment on above: Performed By: #### B PANEL BEATER, HS TROP, PT, CBC #### [facility] [address] Bilirubin [Mass/Vol] 0.4 mg/dL Normal 0.3-1.0 [facility] Comment on above: Performed By: #### B PANEL BEATER, HS TROP, PT, CBC #### [facility] [address] Globulin (S) [Mass/Vol] 2.8 g/dL Normal [facility] Comment on above: Performed By: #### B PANEL BEATER, HS TROP, PT, CBC #### [facility] [address] [place] [address] [place] Protein [Mass/Vol] 4.9 g/dL Low 6.4-8.9 [facility] Comment on above: Performed By: #### B PANEL BEATER, HS TROP, PT, CBC #### [facility] [address] [place] [address] [place] Creatinine [Mass/volume] in UrineOrdered By: Marky Dempsey on 10-22-2023 Creatinine (U) [Mass/Vol] 30.00 mg/dL [facility] Comment on above: No reference range e stablished Creatinine, Urine (Random)on 10-22-2023 Creatinine, Urine (Random) 30.00 mg/dL Normal [facility] Comment on above: Result Comment: No r eference range established Performed By: #### G LULS #### Point of Care testing , Dipstick and MicroscopicOrde red By: Marky Dempsey on 10-22-2023 Appearance (U) Turbid Critically abnormal Clear [facility] Comment on above: Order Comment: Name Collection Type:: Wooten Catheter Performed By: #### G LULS #### Point of Care testing , Color (U) Light-yellow Normal Yellow [facility] Comment on above: Order Comment: Name Collection Type:: Wooten Catheter Performed By: #### G LULS #### Point of Care testing , Ketones Ql (U) Negative Normal Negative [facility] Comment on above: Order Comment: Name Collection Type:: Wooten Catheter Performed By: #### G LULS #### Point of Care testing , Leukocyte esterase Test strip Ql (U) 4+ High Negative [facility] Comment on above: Order Comment: Name Collection Type:: Wooten Catheter Performed By: #### G LULS #### Point of Care testing , pH (U) 5.5 [pH] Normal 5.0-9.0 [facility] Comment on above: Order Comment: Name Collection Type:: Wooten Catheter Performed By: #### G LULS #### Point of Care testing , Protein (U) [Mass/Vol] 30 mg/dL High Negative [facility] Comment on above: Order Comment: Name Collection Type:: Wooten Catheter Performed By: #### G LULS #### Point of Care testing , Dipstick and Microscopicon 0 10-22-2023 Bacteria,Urine 1+ High None Seen [facility] Comment on above: Order Comment: Name Collection Type:: Wooten Catheter Performed By: #### G LULS #### Point of Care testing , Bilirubin,Urine Negative Normal Negative [facility] Comment on above: Order Comment: Name Collection Type:: Wooten Catheter Performed By: #### G LULS #### Point of Care testing , Budding Yeast,Urine 4+ High None Seen [facility] Comment on above: Order Comment: Name Collection Type:: Wooten Catheter Result Comment: PERF ORMED BY: [facility] [address] [place] [address] PATHOLOGIST SURGICAL SERVICES DIRECTOR BRANDEN WHATLEY M.D. Performed By: #### G LULS #### Point of Care testing , Glucose Ql (U) Normal Normal Normal [facility] Comment on above: Order Comment: Name Collection Type:: Wooten Catheter Performed By: #### G LULS #### Point of Care testing , Hyaline Casts,Urine None Normal 0-8 [facility] Comment on above: Order Comment: Name Collection Type:: Wooten Catheter Performed By: #### G LULS #### Point of Care testing , Nitrite,Urine Negative Normal Negative [facility] Comment on above: Order Comment: Name Collection Type:: Wooten Catheter Performed By: #### G LULS #### Point of Care testing , Occult Blood,Urine 3+ High Negative [facility] Comment on above: Order Comment: Name Collection Type:: Wooten Catheter Result Comment: PERF ORMED BY: [address] [address] PATHOLOGIST SURGICAL SERVICES DIRECTOR BRANDEN WHATLEY M.D. Performed By: #### G LULS #### Point of Care testing , RBC,Urine 50-100 High 0-4 [facility] Comment on above: Order Comment: Name Collection Type:: Wooten Catheter Performed By: #### G LULS #### Point of Care testing , Specificy [place],Urine 1.009 Normal 1.001-1.030 [facility] Comment on above: Order Comment: Name Collection Type:: Wooten Catheter Performed By: #### G LULS #### Point of Care testing , Urobilinogen,Urine Normal Normal Normal [facility] Comment on above: Order Comment: Name Collection Type:: Wooten Catheter Performed By: #### G LULS #### Point of Care testing , WBC CLUMP, Urine Many High None Seen [facility] Comment on above: Order Comment: Name Collection Type:: Wooten Catheter Performed By: #### G LULS #### Point of Care testing , WBC,Urine Innumerable High 0-4 [facility] Comment on above: Order Comment: Name Collection Type:: Wooten Catheter Performed By: #### G LULS #### Point of Care testing , ECG 12 lead ECGon 10-22-2023 ECG 12 lead ECG [facility] [place] [id number] Electrocardiograph Report Signed Patient: Matt Honeycutt MR#: [id number] : 1950 Acct:[id number] Age/Sex: 73 / M ADM Date: 10/22/23 Loc: Room: [address] [place] [address] Type: ADM IN Attending Dr: Dionicio Donald MD Ordering Provider: Dionicio Donald MD Date of Service: 10/22/2302/05/1036 ECG/ECG 12 lead ECG: VT Copies to: Test Reason : Blood Pressure : */* mmHG Vent. Rate : 83 BPM Atrial Rate : 83 BPM P-R Int : 160 ms QRS Dur : 142 ms QT Int : 394 ms P-R-T Axes : 40 67 -57 degrees QTcB Int : 462 ms Sinus rhythm with occasional and consecutive premature ventricular complexes Nonspecific intraventricular block Inferior infarct , age undetermined T wave abnormality, consider lateral ischemia Abnormal ECG When compared with ECG of 07-Jun-2019 15:34, premature ventricular complexes are now present QRS duration has increased Confirmed by [facility], ALFRED ([id number]) on 10/22/2023 3:31:44 PM Referred By: Electronically Signed By: ALFRED DALEY MD FAC Transcribed By: MUS Signed By Alfred Daley MD, FACC 10/22/23 1531 Normal [facility] Epithelial cells.squamous [# /area] in Urine sediment by Automated countOrdered By: Marky Dempsey on 10-22-2023 Epithelial cells.squamous Auto (Urine sed) [#/Area] N/A [facility] Erythrocytes [#/area] in Uri ne sediment by Automated countOrdered By: Marky Dempsey on 10-22-2023 RBC Auto (Urine sed) [#/Area] 50-100 [HPF] High 0-4 [facility] Glucose Poct Glucometerson 0 10-22-2023 Commemt1 Glu2: Cleaned Meter Normal [facility] Comment on above: Result Comment: PERF ORMED BY: [place] [address] PATHOLOGIST SURGICAL SERVICES DIRECTOR BRANEDN WHATLEY M.D. Performed By: #### H EP PLATAB #### [facility] , Glucose [Mass/Vol] 139 mg/dL Normal [facility] Comment on above: Result Comment: [place] om Glucose Reference Range is dependent on time and content of last meal. Glucose of more than 200 mg/dL in a nonstressed, ambulatory subject supports the diagnosis of Diabetes Mellitus. Performed By: #### H EP PLATAB #### [facility] , Glucose [Mass/Vol] 134 mg/dL Normal [facility] Comment on above: Result Comment: [place] om Glucose Reference Range is dependent on time and content of last meal. Glucose of more than 200 mg/dL in a nonstressed, ambulatory subject supports the diagnosis of Diabetes Mellitus. PERFORMED BY: [place] [phone] PATHOLOGIST SURGICAL SERVICES DIRECTOR BRANDEN WHATLEY M.D. Performed By: #### B PANEL BEATER, HS TROP, PT, CBC #### [address] Glucose [Mass/Vol] 132 mg/dL Normal [facility] Comment on above: Result Comment: [place] om Glucose Reference Range is dependent on time and content of last meal. Glucose of more than 200 mg/dL in a nonstressed, ambulatory subject supports the diagnosis of Diabetes Mellitus. PERFORMED BY: [place] [address] PATHOLOGIST SURGICAL SERVICES DIRECTOR BRANDEN WHATLEY M.D. Performed By: #### G LULS #### Point of Care testing , Commemt1 Glu2: Cleaned Meter Normal [facility] Comment on above: Result Comment: PERF ORMED BY: [place] [address] PATHOLOGIST SURGICAL SERVICES DIRECTOR BRANDEN WHATLEY M.D. Performed By: #### G LULS #### Point of Care testing , Glucose [Mass/Vol] 141 mg/dL Normal [facility] Comment on above: Result Comment: [place] om Glucose Reference Range is dependent on time and content of last meal. Glucose of more than 200 mg/dL in a nonstressed, ambulatory subject supports the diagnosis of Diabetes Mellitus. Performed By: #### G LULS #### Point of Care testing , Glucose [Mass/Vol] 170 mg/dL Normal [facility] Comment on above: Result Comment: [facility] Glucose Reference Range is dependent on time and content of last meal. Glucose of more than 200 mg/dL in a nonstressed, ambulatory subject supports the diagnosis of Diabetes Mellitus. PERFORMED BY: [facility] [address] [place] [address] PATHOLOGIST SURGICAL SERVICES DIRECTOR BRANDEN WHATLEY M.D. Performed By: #### B PANEL BEATER, HS TROP, PT, CBC #### [facility] [address] Glucose [Mass/volume] in Uri ne by Test stripOrdered By: Marky Dempsey on 10-22-2023 Glucose Test strip (U) [Mass/Vol] Normal mg/dL Normal [facility] Hemoglobin Test strip Ql (U) Ordered By: Marky Dempsey on 10-22-2023 Hemoglobin Ql (U) 3+ High Negative [facility] Hemogram CBC Without Diffon 10-22-2023 Erythrocyte distribution width (RBC) [Ratio] 16.1 % High 12.0-14.8 [facility] Comment on above: Performed By: #### G LULS #### Point of Care testing , Hematocrit (Bld) [Volume fraction] 26.8 % Low 38.8-50.0 [facility] Comment on above: Performed By: #### G LULS #### Point of Care testing , Hemoglobin (Bld) [Mass/Vol] 9.1 g/dL Low 13.0-17.0 [facility] Comment on above: Performed By: #### G LULS #### Point of Care testing , MCH (RBC) [Entitic mass] 28.8 pg Normal 27.5-35.2 [facility] Comment on above: Performed By: #### G LULS #### Point of Care testing , MCV (RBC) [Entitic vol] 85.4 fL Normal 83.5-101 [facility] Comment on above: Performed By: #### G LULS #### Point of Care testing , Mean Corpuscular HGB Conc 33.8 g/dL Normal 32.5-35.6 [facility] Comment on above: Performed By: #### G LULS #### Point of Care testing , Platelet mean volume (Bld) [Entitic vol] 8.9 fL Normal 6.6-10.1 [facility] Comment on above: Result Comment: PERF ORMED BY: [address] [place] [id number] PATHOLOGIST SURGICAL SERVICES DIRECTOR BRANDEN WHATLEY M.D. Performed By: #### G LULS #### Point of Care testing , Platelets (Bld) [#/Vol] 84 10*3/uL Low 150-450 [facility] Comment on above: Performed By: #### G LULS #### Point of Care testing , RBC (Bld) [#/Vol] 3.14 10*6/uL Low 3.90-5.60 [facility] Comment on above: Performed By: #### G LULS #### Point of Care testing , WBC (Bld) [#/Vol] 13.6 10*3/uL High 4.1-10.5 [facility] Comment on above: Performed By: #### G LULS #### Point of Care testing , Hyaline casts [#/area] in Ur ine sediment by Automated countOrdered By: Marky Dempsey on 10-22-2023 Hyaline casts Auto (Urine sed) [#/Area] None [LPF] 0-8 [facility] Lactic AcidOrdered By: Bogdan Dempsey on 10-22-2023 Lactate [Moles/Vol] 0.8 mmol/L Normal 0.5-2.2 [facility] Comment on above: Result Comment: PERF ORMED BY: [address] [address] PATHOLOGIST SURGICAL SERVICES DIRECTOR BRANDEN WHATLEY M.D. Performed By: #### G LULS #### Point of Care testing , Leukocyte clumps [Presence] in Urine by AutomatedOrdered By: Marky Dempsey on 10-22-2023 Leukocyte clumps Auto Ql (U) Many [LPF] High None Seen [facility] Leukocytes [#/area] in Urine sediment by Automated countOrdered By: Marky Dempsey on 10-22-2023 WBC Auto (Urine sed) [#/Area] Innumerable [HPF] High 0-4 [facility] Magnesiumon 10-22-2023 Magnesium [Mass/Vol] 1.7 mg/dL Low 1.9-2.7 [facility] Comment on above: Performed By: #### B PANEL BEATER, HS TROP, PT, CBC #### [facility] [address] [place] [address] Nitrite Test strip Ql (U)Ord ered By: Marky Dempsey on 10-22-2023 Nitrite Ql (U) Negative Negative [facility] Parathyrin.intact [Mass/volu me] in Serum or PlasmaOrdered By: Marky Dempsey on 10-22-2023 Parathyrin.intact [Mass/Vol] 498.2 pg/mL High [facility] Parathyroid Hormone Intacton 10-22-2023 Parathyroid Hormone Intact 498.2 pg/mL High [facility] Comment on above: Result Comment: PERF ORMED BY: [place] [address] PATHOLOGIST SURGICAL SERVICES DIRECTOR BRANDEN WHATLEY M.D. Performed By: #### B PANEL BEATER, HS TROP, PT, CBC #### [facility] [address] [place] [address] Phosphoruson 10-22-2023 Phosphate [Mass/Vol] 10.6 mg/dL High 2.5-4.5 [facility] Comment on above: Performed By: #### B PANEL BEATER, HS TROP, PT, CBC #### [facility] [address] [place] [address] Prothrombin Time INROrdered By: Marky Dempsey on 10-22-2023 INR Coag (PPP) [Relative time] 1.3 {INR} Normal [facility] Comment on above: Result Comment: INR Therapeutic Range A) Pre- and Peroperative OAT started two weeks before surgery. NOT HIP SURGERY: 1.5 - 2.5 HIP SURGERY: 2 - 3 B) Primary and secondary prevention of venous THROMBOSIS: 2 - 3 C) Active venous thrombosis, pulmonary embolism and prevention of recurrent venous thrombosis: 2 - 3 D) Prevention of arterial thromboembolism including patients with mechanical heart valves: 3 - 4.5 PERFORMED BY: [place] [address] PATHOLOGIST SURGICAL SERVICES DIRECTOR BRANDEN WHATLEY M.D. Performed By: #### B PANEL BEATER, HS TROP, PT, CBC #### [address] INR Therapeutic Rang e A) Pre- and Peroperative OAT started two weeks before surgery. NOT HIP SURGERY: 1.5 - 2.5 HIP SURGERY: 2 - 3B) Primary and secondary prevention of venous THROMBOSIS: 2 - 3C) Active venous thrombosis, pulmonary embolismand prevention of recurrent venous thrombosis: 2 - 3D) Prevention of arterial thromboembolismincluding patients with mechanical heart valves: 3 - 4.5 PT Coag (PPP) [Time] 15.0 s High 9.0-12.9 [facility] Comment on above: Result Comment: A he matocrit value greater than 55% may lead to inaccurate results in coagulation testing. Patients having hematocrit values >55% require a special collection tube for coagulation studies. Please contact the laboratory at [phone] for redraw instructions. Performed By: #### B PANEL BEATER, HS TROP, PT, CBC #### [address] A hematocrit value g reater than 55% may lead to inaccurate results in coagulation testing. Patients having hematocrit values >55% require a special collection tube for coagulation studies. Please contact the laboratory at [phone] for redraw instructions. Renal Function Panelon 10-21 Albumin [Mass/Vol] 2.4 g/dL Low 3.5-5.7 [facility] Comment on above: Performed By: #### G LULS #### Point of Care testing , Anion gap [Moles/Vol] 25.7 mmol/L High 6.0-15.0 [facility] Comment on above: Performed By: #### G LULS #### Point of Care testing , Calcium [Mass/Vol] 8.4 mg/dL Low 8.6-10.3 [facility] Comment on above: Performed By: #### G LULS #### Point of Care testing , Chloride [Moles/Vol] 98 mmol/L Normal 98-107 [facility] Comment on above: Performed By: #### G LULS #### Point of Care testing , CO2 [Moles/Vol] 12.7 mmol/L Low 21.0-31.0 [facility] Comment on above: Performed By: #### G LULS #### Point of Care testing , Creatinine [Mass/Vol] 8.21 mg/dL Significant change up 0.70-1.30 [facility] Comment on above: Performed By: #### G LULS #### Point of Care testing , Creatinine Clr Calc Pharmacy 11.36 Normal [facility] Comment on above: Result Comment: PERF ORMED BY: [address] [place] [address] PATHOLOGIST SURGICAL SERVICES DIRECTOR BRANDEN WHATLEY M.D. Performed By: #### G LULS #### Point of Care testing , GFR/1.73 sq M.predicted MDRD (S/P/Bld) [Vol rate/Area] 6.353 mL/min/{1.73_m2} Normal [facility] Comment on above: Performed By: #### G LULS #### Point of Care testing , Glucose [Mass/Vol] 133 mg/dL High 70-100 [facility] Comment on above: Result Comment: [place] Glucose Reference Range is dependent on time and content of last meal. Glucose of more than 200 mg/dL in a nonstressed, ambulatory subject supports the diagnosis of Diabetes Mellitus. ADA recommended reference range Performed By: #### G LULS #### Point of Care testing , Potassium [Moles/Vol] 3.4 mmol/L Low 3.5-5.1 [facility] Comment on above: Performed By: #### G LULS #### Point of Care testing , Sodium [Moles/Vol] 133 mmol/L Low 136-145 [facility] Comment on above: Performed By: #### G LULS #### Point of Care testing , Urea nitrogen [Mass/Vol] 130 mg/dL Significant change up 11-05 [facility] Comment on above: Performed By: #### G LULS #### Point of Care testing , Renal Function PanelOrdered By: Norma Lopez on 10-22-2023 Phosphate [Mass/Vol] 7.6 mg/dL High 2.5-4.5 [facility] Comment on above: Performed By: #### G LULS #### Point of Care testing , Sodium, Urine (Random)Ordere d By: Marky Dempsey on 10-22-2023 Sodium (U) [Moles/Vol] 71 mmol/L Normal [facility] Comment on above: Result Comment: No r eference range established PERFORMED BY: [facility] [address] [place] [address] PATHOLOGIST SURGICAL SERVICES DIRECTOR BRANDEN WHATLEY M.D. Performed By: #### G LULS #### Point of Care testing , No reference range e stablished Specific gravity Test strip (U) [Rel density]Ordered By: Marky Dempsey on 10-22-2023 Specific gravity (U) [Rel density] 1.009 1.001-1.030 [facility] Troponin I High Sensitivityo n 10-22-2023 Troponin I High Sensitivity 80.6 pg/mL Off scale high 0.0-20.0 [facility] Comment on above: Result Comment: Crit ical Result : Called to and read back by: BARAK ORTEZ at: 10/22/2023 11:33:35 by:PATY PERFORMED BY: [facility] [address] [place] [address] PATHOLOGIST SURGICAL SERVICES DIRECTOR BRANDEN WHATLEY M.D. Performed By: #### G LULS #### Point of Care testing , Troponin I High Sensitivity 77.8 pg/mL Off scale high 0.0-20.0 [facility] Comment on above: Result Comment: Crit ical Result : Called to and read back by: TAMMY BOWMAN at: 10/22/2023 07:34:46 by:[id number] PERFORMED BY: [place] [address] PATHOLOGIST SURGICAL SERVICES DIRECTOR BRANDEN WHATLEY M.D. Performed By: #### B PANEL BEATER, HS TROP, PT, CBC #### [address] Troponin I.cardiac [Mass/vol ume] in Serum or Plasma by Detection limit <= 0.01 ng/Ordered By: Dionicio Donald on 10-22-2023 Troponin I.cardiac DL <= 0.01 ng/mL [Mass/Vol] 80.6 pg/mL High 0.0-20.0 [facility] Comment on above: Critical Result : Ca lled to and read back by: BARAK ORTEZ at: 10/22/2023 11:33:35 by:PATY Urine Cultureon 10-22-2023 Bacteria identified Cx Nom (U) ORGANISM: Elizabeth albicans (O:CANALB) [place] Count >100,000 PERFORMED BY: [place] [address] PATHOLOGIST SURGICAL SERVICES DIRECTOR BRANDEN WHATLEY M.D. Normal [facility] Comment on above: Performed By: #### H EP PLATAB #### [facility] , Urine culture routineOrdered By: Marky Dempsey on 10-22-2023 Bacteria identified Cx Nom (U) Elizabeth albicans Abnormal [facility] Urobilinogen Test strip (U) [Mass/Vol]Ordered By: Marky Dempsey on 10-22-2023 Urobilinogen (U) [Mass/Vol] Normal mg/dL Normal [facility] Vitamin D 25 Hydroxy Totalon 10-22-2023 Vitamin D 25 Hydroxy Total 42.7 ng/mL Normal 30-100 [facility] Comment on above: Result Comment: WILLIAM MIN D STATUS 25(OH)VITAMIN D RANGE (ng/mL) Deficient <20 Insufficient 20 to <30 Sufficient 30 to 100 Reference: Garrison MF,Lilliam NC, Bailee AGUILAR, et al. Evaluation,treatment, and prevention of vitamin D deficiency; an Endocrine Society clinical practice guideline. JCEM. 2010; 96(7):1911-. PERFORMED BY: [facility] [address] [place] [address] PATHOLOGIST SURGICAL SERVICES DIRECTOR BRANDEN WHATLEY M.D. Performed By: #### B PANEL BEATER, HS TROP, PT, CBC #### [facility] [address] Vitamin D+Metabolites [Mass/ volume] in Serum or PlasmaOrdered By: Marky Dempsey on 10-22-2023 Vitamin D+Metabolites [Mass/Vol] 42.7 ng/mL 30-100 [facility] Comment on above: VITAMIN D STATUS 25( [place])VITAMIN D RANGE (ng/mL) Deficient <20 Insufficient 20 to <30Sufficient 30 to 100Reference: Garrison MF,Lilliam RAYMUNDO, Bailee AGUILAR, et al. Evaluation,treatment, and prevention of vitamin D deficiency; an Endocrine Society clinical practice guideline. JCEM. 2010; 96(7):1911-30. 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 Discharged 3 days ago. P/w Generalized weakness Hypotensive 70-90 systolic s/p 1L IVF , BP now 119/57 WBC - 12 Hemoglobin - 7.6 (chronic anemia, baseline 8-10). No signs of bleeding Lactate normal. Cr - normally between ~5 Today BUN / CR - 176/10.71 CT A/P - bilateral J stents, stranding in the right kidney. CXR - no pulmonary edema Concern for UTI/pyelonephritis. [facility] does not have nephrology services. So requesting transfer as he may need dialysis. Patient is accepted to [facility]. Admitting physician to re-conference with [facility] after bed is assigned to confirm patient continues to be medically stable for F given hypotension on presentation. Denise epps MD Normal [facility] Cult,Urineon 01-19-2023 Cult,Urine Specimen Description .CATHETERIZED URINE Culture NO SIGNIFICANT GROWTH Report Status FINAL 01/19/2023 Normal [facility] Comment on above: Performed By: #### U RC #### [facility] [address] [place] [place], [place] [id number] Jr. Systems Administrator: Fredis Miller MD [facility] [address] [place] [address] [place], [place] [id number] Jr. Systems Administrator: Rao Espinosa MD UA w/Reflex Cultureon 2022 Bilirubin, SemiQt,Ur Negative Normal NEG [facility] Comment on above: Performed By: #### U MICAO, UAX #### [facility] [address] [place] [address] [place], [place] [id number] Jr. Systems Administrator: Rao Espinosa MD Blood, Urine 2+ Abnormal NEG [facility] Comment on above: Performed By: #### U MICAO, UAX #### [facility] [address] [place] [address] [place], [place] [id number] Jr. Systems Administrator: Rao Espinosa MD Clarity (U) Cloudy Abnormal CLEAR [facility] Comment on above: Performed By: #### U MICAO, UAX #### [facility] [address] [place] [address] [place], [place] [id number] Jr. Systems Administrator: Rao Espinosa MD Color (U) Yellow Normal YEL [facility] Comment on above: Performed By: #### U MICAO, UAX #### [facility] [address] [place] [address] [place] [address] Jr. Systems Administrator: Rao Espinosa MD Glucose Ql (U) TRACE Abnormal NEG [facility] Comment on above: Performed By: #### U MICAO, UAX #### [facility] [address] [place] [address] Dr[place], [place] [id number] Jr. Systems Administrator: Roa Espinosa MD Ketones Ql (U) Negative Normal NEG [facility] Comment on above: Performed By: #### U MICAO, UAX #### [facility] [address] [place], [place] [id number] Jr. Systems Administrator: Rao Espinosa MD Leukocyte esterase Test strip Ql (U) LARGE Abnormal NEG [facility] Comment on above: Performed By: #### U MICAO, UAX #### [facility] [address] [place], [place] [id number] Jr. Systems Administrator: Rao Espinosa MD Nitrite,Ur Positive Abnormal NEG [facility] Comment on above: Performed By: #### U MICAO, UAX #### [facility] [address] [place] [address] [place], [place] [phone] Jr. Systems Administrator: Rao Espinosa MD PH,Ur 7.0 Normal 5.0-9.0 [facility] Comment on above: Performed By: #### U MICAO, UAX #### [facility] [address] [place] [address] Dr. [place], [place] [id number] Jr. Systems Administrator: Rao Espinosa MD Protein Ql (U) 1+ mg/dL Abnormal NEG [facility] Comment on above: Performed By: #### U MICAO, UAX #### [facility] [address] [place] [address] [place]. [place], [place] [id number] Jr. Systems Administrator: Rao Espinosa MD Spec. [place],Ur 1.010 Normal 1.010-1.020 [facility] Comment on above: Performed By: #### U MICAO, UAX #### [facility] [address] [place], [place] [id number] Jr. Systems Administrator: Rao Espinosa MD Urobilinogen,Ur Normal Normal 0.0-1.0 [facility] Comment on above: Performed By: #### U MICAO, UAX #### [facility] [address] [place], [place] [id number] Jr. Systems Administrator: Rao Espinosa MD Urinalysis,Microon 10-06-202 3 Bacteria 3+ Abnormal NONE [facility] Comment on above: Performed By: #### U RADHAO, UAX #### [facility] [address] [place], [place] [id number] Jr. Systems Administrator: Rao Espinosa MD Epithelial cells LM Ql (Urine sed) 0 TO 2 Normal 0-5 [facility] Comment on above: Performed By: #### U MICAO, UAX #### [facility] [address] [place], [place] [id number] Jr. Systems Administrator: Rao Espinosa MD Urine RBC's 5 TO 10 Normal 0-2 [facility] Comment on above: Performed By: #### U RADHAO, UAX #### [facility] [address] [place], [place] [id number] Jr. Systems Administrator: Rao Espinosa MD Urine WBC's GREATER THAN 100 Normal 0-5 [facility] Comment on above: Performed By: #### U RADHAO, UAX #### [facility] [address] [place] [address] Jr. Systems Administrator: Rao Espinosa MD Consultation Noteon 09-03-19 Consultation Note [id number]:127 Normal [facility] Insurance Correspondence Off iceon 09-02-2022 Insurance Correspondence Office [id number]:127 Normal [facility] PRBC LEUKOREDUCEDon 07-19-19 23 PRBC LEUKOREDUCED Cross Match Result Compatible Unit Blood Type O Neg Unit Number [id number] Status Information Transfused Product ID Red Blood Cells Product Code [id number] [facility] Comment on above: Performed By: #### P OCGLUC #### [facility] [address] [place] [address] Dr. Dk Mahoney PRBC LEUKOREDUCED Cross Match Result Compatible Unit Blood Type O Neg Unit Number [id number] Status Information Transfused Product ID Red Blood Cells Product Code [id number] Normal [facility] Comment on above: Performed By: #### P OCGLUC #### [facility] [address] [place] [address] Dr. Dk Mahoney CULTURE URINEon 07-09-2022 CULTURE URINE Isolate 1 Proteus mirabilis >100,000 cfu/mL of Isolate 2 Pseudomonas aeruginosa >100,000 cfu/mL of ORGANISM 1 Proteus mirabilis ANTIBIOTIC M.I.C RX STATUS Ampicillin >=32 R F Ampicillin/Sulbactam >=32 R F Piperacillin/Tazobactam <=4 S F Cefazolin >=64 R F Ceftazidime 4 R F Ceftriaxone 2 R F Ertapenem <=0.5 S F Imipenem 2 S F Amikacin <=2 S F Gentamicin <=1 S F Tobramycin <=1 S F Ciprofloxacin >=4 R F Levofloxacin >=8 R F Nitrofurantoin 64 R F Trimethoprim/Sulfamethoxaz ole <=20 S F ORGANISM 2 Pseudomonas aeruginosa ANTIBIOTIC M.I.C RX STATUS Piperacillin/Tazobactam 16 S F Ceftazidime 8 S F Imipenem 2 S F Amikacin <=2 S F Gentamicin <=1 S F Tobramycin <=1 S F Ciprofloxacin >=4 R F Levofloxacin >=8 R F Normal [facility] Comment on above: Performed By: #### P OCGLUC #### [facility] [address] [place] [address] Dr. Dk Mahoney PROTEIN ELECTROPHERESISon Albumin [Mass/Vol] 2.7 g/dL Critically low 2.9-4.4 [facility] Comment on above: Performed By: #### M Young CMP, PHOS #### [facility] [address] [place] [address] Dr. Dk Mahoney Albumin/Globulin [Mass ratio] 0.9 {ratio} Normal 0.7-1.7 [facility] Comment on above: Performed By: #### M Young CMP, PHOS #### [facility] [address] [place] [address] Dr. Dk Mahoney Xbkhd-9-Ijfanrbl 0.2 g/dL Normal 0.0-0.[address] [facility] Comment on above: Performed By: #### M Young CMP, PHOS #### [facility] [address] [address] [address] Dk Mahoney Uqemi-7-Eohrfsfh 0.8 g/dL Normal 0.4-1.[address] [facility] Comment on above: Performed By: #### M Young, CMP, PHOS #### [facility] [address] [address] [address] Dk Mahoney Beta Globulin 1.0 g/dL Normal 0.7-1.3 [facility] Comment on above: Performed By: #### M Young CMP, PHOS #### [facility] [address] [address] [address] Dk Mahoney Gamma Globulin 1.1 g/dL Normal 0.4-1.8 [facility] Comment on above: Performed By: #### M Young CMP, PHOS #### [facility] [address] [address] [address] Dk Mahoney Globulin (S) [Mass/Vol] 3.1 g/dL Normal 2.2-3.9 [facility] Comment on above: Performed By: #### Rosmery Vidal CMP, PHOS #### [facility] [address] [address] [address] Dk Mahoney M-Primitivo Comment: Normal Not Observed [facility] Comment on above: Result Comment: SPE shows an asymmetrical gamma. Performed By: #### M Young CMP, PHOS #### [facility] [address] [address] [address] Dk Mahoney PDF . Normal [facility] Comment on above: Performed By: #### M G CMP, PHOS #### [facility] [address] [address] [address] Dk Mahoney Please note: Comment Normal [facility] Comment on above: Result Comment: Prot ein electrophoresis scan will follow via computer, mail, or shaker washer delivery. Performed By: #### M G, CMP, PHOS #### [facility] [address] [address] [address] Dk Mahoney Protein [Mass/Vol] 5.8 g/dL Critically low 6.0-8.5 Th [facility] Comment on above: Performed By: #### M G, CMP, PHOS #### [facility] [address] [address] [address] Dk Mahoney PROTEIN ELECTROPHERESIS URIN E RANDOMon 07-09-2022 Albumin, U 23.2 % Normal [facility] Comment on above: Performed By: #### M G, CMP, PHOS #### [facility] [address] [address] [address] Dk Mahoney Alpha-1 Globulin U 3.6 % Normal [facility] Comment on above: Performed By: #### M G, CMP, PHOS #### [facility] [address] [place] [address] Dr. Dk Mahoney Alpha-2 Glubulin U 19.7 % Normal [facility] Comment on above: Performed By: #### M G, CMP, PHOS #### [facility] [address] [address] [address] kD Mahoney Beta Globulin, U 31.4 % Normal [facility] Comment on above: Performed By: #### M G, CMP, PHOS #### [facility] [address] [address] [address] Dk Mahoney Gamma Globulin U 22.1 % Normal [facility] Comment on above: Performed By: #### M G, CMP, PHOS #### [facility] [address] [address] [address] Dk Mahoney M-Primitivo, % Comment: Normal Not Observed [facility] Comment on above: Result Comment: UPE shows an asymmetrical beta. Performed By: #### M G, CMP, PHOS #### [facility] [address] [address] [address] Dk Mahoney PDF . Normal [facility] Comment on above: Performed By: #### M G, CMP, PHOS #### [facility] [address] [place] [address] Dr. Dk Mahoney Please note: Comment Normal [facility] Comment on above: Result Comment: Prot ein electrophoresis scan will follow via computer, mail, or shaker washer delivery. Performed By: #### M G, CMP, PHOS #### [facility] [address] [place] [address] Dr. Dk Mahoney Protein (U) [Mass/Vol] 34.7 mg/dL Normal Not Estab. [facility] Comment on above: Performed By: #### M G, CMP, PHOS #### [facility] [address] [place] [address] Dr. Dk Mahoney CBC AUTO DIFFon 07-07-2022 BASO # 0.1 103/ul Normal 0.0-0.1 [facility] Comment on above: Performed By: #### M G, CMP, PHOS #### [facility] [address] [place] [address] Dr. Dk Mahoney Basophils/100 WBC (Bld) 0.9 % Normal 0.2-2.0 [facility] Comment on above: Performed By: #### M G, CMP, PHOS #### [facility] [address] [place] [address] Dr. Dk Mahoney EO # 0.2 103/ul Normal 0.0-0.7 [facility] Comment on above: Performed By: #### M G, CMP, PHOS #### [facility] [address] [place] [address] Dr. Dk Mahoney Eosinophils/100 WBC (Bld) 2.9 % Normal 0.9-7.0 [facility] Comment on above: Performed By: #### M G, CMP, PHOS #### [facility] [address] [place] [address] Dr. Dk Mahoney Erythrocyte distribution width (RBC) [Ratio] 15.0 % Normal 11.0-15.0 [facility] Comment on above: Performed By: #### M G, CMP, PHOS #### [facility] [address] [place] [address] Dr. Dk Mahoney Hematocrit (Bld) [Volume fraction] 24.4 % Critically low 42.0-54.0 [facility] Comment on above: Performed By: #### M SHIREEN Vidal, PHOS #### [facility] [address] [place] [address] Dr. kD Mahoney Hemoglobin (Bld) [Mass/Vol] 7.8 g/dL Critically low 14.0-18.0 [facility] Comment on above: Performed By: #### M Young CMP, PHOS #### [facility] [address] [place] [address] Dr. Dk Mahoney IG # 0.07 10e3/ul Critically high 0.00-0.03 [facility] Comment on above: Performed By: #### M SHIREEN Vidal, PHOS #### [facility] [address] [place] [address] Dr. Dk Mahoney IG % 1.1 % Critically high 0.0-0.5 [facility] Comment on above: Performed By: #### M SHIREEN iVdal, PHOS #### [facility] [address] [place] [address] Dr. Dk Mahoney LYMPH # 1.0 103/ul Critically low 1.2-3.8 [facility] Comment on above: Performed By: #### M SHIREEN Vidal, PHOS #### [facility] [address] [place] [address] Dr. Dk Mahoney Lymphocytes/100 WBC (Bld) 15.4 % Critically low 20.5-60.0 [facility] Comment on above: Performed By: #### M Young CMP, PHOS #### [facility] [address] [place] [address] Dr. Dk Mahoney MANUAL DIFF REQ NO Normal [facility] Comment on above: Performed By: #### M Young CMP, PHOS #### [facility] [address] [place] [address] Dr. Dk Mahoney MCH (RBC) [Entitic mass] 29.3 pg Normal 25.9-34.0 [facility] Comment on above: Performed By: #### M Young CMP, PHOS #### [facility] [address] [place] [address] Dr. Dk Mahoney MCHC (RBC) [Mass/Vol] 32.0 g/dL Normal 29.9-35.2 [facility] Comment on above: Performed By: #### M G, CMP, PHOS #### [facility] [address] [place] [address] Dr. Dk Mahoney MCV (RBC) [Entitic vol] 91.7 fL Normal 80.0-94.0 [facility] Comment on above: Performed By: #### M G, CMP, PHOS #### [facility] [address] [place] [address] Dr. Dk Mahoney MONO # 0.6 103/ul Normal 0.3-0.8 [facility] Comment on above: Performed By: #### M G, CMP, PHOS #### [facility] [address] [place] [address] Dr. Dk Mahoney Monocytes/100 WBC (Bld) 9.2 % Normal 1.7-12.0 [facility] Comment on above: Performed By: #### M G, CMP, PHOS #### [facility] [address] [place] [address] Dr. Dk Mahoney NEUT # 4.6 103/ul Normal 1.4-6.5 [facility] Comment on above: Performed By: #### M G, CMP, PHOS #### [facility] [address] [place] [address] Dr. Dk Mahoney Neutrophils/100 WBC (Bld) 70.5 % Normal 43.0-75.0 [facility] Comment on above: Performed By: #### M G, CMP, PHOS #### [facility] [address] [place] [address] Dr. Dk Mahoney Platelet mean volume (Bld) [Entitic vol] 10.1 fL Normal 9.5-13.5 [facility] Comment on above: Performed By: #### M G, CMP, PHOS #### [facility] [address] [place] [address] Dr. Dk Mahoney PLT 172 103/ul Normal 150-450 [facility] Comment on above: Performed By: #### M Young CMP, PHOS #### [facility] [address] [address] [address] Dk Mahoney RBC 2.66 106/ul Critically low 4.70-6.10 [facility] Comment on above: Performed By: #### M Young CMP, PHOS #### [facility] [address] [address] [address] Dk Mahoney WBC 6.5 103/ul Normal 4.0-11.0 [facility] Comment on above: Performed By: #### Rosmery Vidal CMP, PHOS #### [facility] [address] [address] [address] Dk Mahoney MAGNESIUMon 07-07-2022 Magnesium [Mass/Vol] 1.4 mg/dL Critically low 1.8-2.4 [facility] Comment on above: Performed By: #### Rosmery Vidal CMP, PHOS #### [facility] [address] [address] [address] Dk Mahoney PHOSPHORUSon 07-07-2022 Phosphate [Mass/Vol] 5.9 mg/dL Critically high 2.6-4.7 [facility] Comment on above: Performed By: #### Rosmery Vidal CMP, PHOS #### [facility] [address] [place] [address] Dr. Dk Mahoney POINT OF CARE GLUCOSEon 06-13 Glucose [Mass/Vol] 121 mg/dL Critically high 74-106 [facility] Comment on above: Performed By: #### M Young, CMP, PHOS #### [facility] [address] [address] [address] Dk Mahoney PROF 14(COMP METB)on 023 Albumin [Mass/Vol] 2.4 g/dL Critically low 3.4-5.0 [facility] Comment on above: Performed By: #### M Young CMP, PHOS #### [facility] [address] [place] [address] Dr. Dk Mahoney Albumin/Globulin [Mass ratio] 0.6 {ratio} Normal [facility] Comment on above: Performed By: #### M G, CMP, PHOS #### [facility] [address] [address] [address] Dk Mahoney ALP [Catalytic activity/Vol] 128 U/L Critically high 46-116 [facility] Comment on above: Performed By: #### M G, CMP, PHOS #### [facility] [address] [address] [address] Dk Mahoney ALT [Catalytic activity/Vol] 49 U/L Normal 16-63 [facility] Comment on above: Performed By: #### M G, CMP, PHOS #### [facility] [address] [place] [address] Dr. Dk Mahoney Anion gap [Moles/Vol] 16.3 mmol/L Normal [facility] Comment on above: Performed By: #### M G, CMP, PHOS #### [facility] [address] [place] [address] Dr. Dk Mahoney AST [Catalytic activity/Vol] 17 U/L Normal 15-37 [facility] Comment on above: Performed By: #### M G, CMP, PHOS #### [facility] [address] [place] [address] Dr. Dk Mahoney Bilirubin [Mass/Vol] 0.3 mg/dL Normal 0.2-1.0 [facility] Comment on above: Performed By: #### M G, CMP, PHOS #### [facility] [address] [place] [address] Dr. Dk Mahoney Calcium [Mass/Vol] 9.2 mg/dL Normal 8.5-10.1 [facility] Comment on above: Performed By: #### M G, CMP, PHOS #### [facility] [address] [place] [address] Dr. Dk Mahoney Chloride [Moles/Vol] 105 mmol/L Normal 98-107 [facility] Comment on above: Performed By: #### M G, CMP, PHOS #### [facility] [address] [address] [address] Dk Mahoney CO2 [Moles/Vol] 20.3 mmol/L Critically low 21.0-32.0 [facility] Comment on above: Performed By: #### M G, CMP, PHOS #### [facility] [address] [address] [address] Dk Mahoney Creatinine [Mass/Vol] 5.59 mg/dL Critically high 0.70-1.30 [facility] Comment on above: Performed By: #### M G, CMP, PHOS #### [facility] [address] [address] [address] Dk Mahoney EGFR-AF FRENCH 12 mL/min/1.73m2 Critically low >=60 [facility] Comment on above: Performed By: #### M G, CMP, PHOS #### [facility] [address] [place] [address] Dr. Dk Mahoney EGFR-NON AF FRENCH 10 mL/min/1.73m2 Critically low >=60 [facility] Comment on above: Performed By: #### M G, CMP, PHOS #### [facility] [address] [address] [address] Dk Mahoney Globulin (S) [Mass/Vol] 3.7 g/dL Normal [facility] Comment on above: Performed By: #### M G, CMP, PHOS #### [facility] [address] [address] [address] Dk Mahoney Glucose [Mass/Vol] 191 mg/dL Critically high 74-106 T [facility] Comment on above: Performed By: #### M G, CMP, PHOS #### [facility] [address] [address] [address] Dk Mahoney Potassium [Moles/Vol] 4.5 mmol/L Normal 3.5-5.1 [facility] Comment on above: Performed By: #### M G, CMP, PHOS #### [facility] [address] [address] [address] Dk Mahoney Protein [Mass/Vol] 6.1 g/dL Critically low 6.4-8.2 Th [facility] Comment on above: Performed By: #### M Young CMP, PHOS #### [facility] [address] [place] [address] Dr. Dk Mahoney Sodium [Moles/Vol] 137 mmol/L Normal 136-145 [facility] Comment on above: Performed By: #### M Young CMP, PHOS #### [facility] [address] [place] [address] Dr. Dk Mahoney Urea nitrogen [Mass/Vol] 83.0 mg/dL Critically high 7.0-18.0 [facility] Comment on above: Performed By: #### M Young CMP, PHOS #### [facility] [address] [place] [address] Dr. Dk Mahoney Urea nitrogen/Creatinine [Mass ratio] 14.8 mg/mg Normal [facility] Comment on above: Performed By: #### Rosmery Vidal CMP, PHOS #### [facility] [address] [place] [address] Dr. Dk Mahoney CBC AUTO DIFFon 07-06-2022 BASO # 0.1 103/ul Normal 0.0-0.1 [facility] Comment on above: Performed By: #### Rosmery Vidal CMP, PHOS #### [facility] [address] [place] [address] Dr. Dk Mahoney Basophils/100 WBC (Bld) 0.9 % Normal 0.2-2.0 [facility] Comment on above: Performed By: #### M Young CMP, PHOS #### [facility] [address] [place] [address] Dr. Dk Mahoney EO # 0.2 103/ul Normal 0.0-0.7 [facility] Comment on above: Performed By: #### M G CMP, PHOS #### [facility] [address] [place] [address] Dr. Dk Mahoney Eosinophils/100 WBC (Bld) 2.9 % Normal 0.9-7.0 [facility] Comment on above: Performed By: #### M G, CMP, PHOS #### [facility] [address] [place] [address] Dr. Dk Mahoney Erythrocyte distribution width (RBC) [Ratio] 15.0 % Normal 11.0-15.0 [facility] Comment on above: Performed By: #### M G, CMP, PHOS #### [facility] [address] [place] [address] Dr. Dk Mahoney Hematocrit (Bld) [Volume fraction] 24.2 % Critically low 42.0-54.0 [facility] Comment on above: Performed By: #### M G, CMP, PHOS #### [facility] [address] [place] [address] Dr. Dk Mahoney Hemoglobin (Bld) [Mass/Vol] 8.0 g/dL Critically low 14.0-18.0 [facility] Comment on above: Performed By: #### M G, CMP, PHOS #### [facility] [address] [place] [address] Dr. Dk Mahoney IG # 0.06 10e3/ul Critically high 0.00-0.03 [facility] Comment on above: Performed By: #### M G, CMP, PHOS #### [facility] [address] [place] [address] Dr. Dk Mahoney IG % 0.9 % Critically high 0.0-0.5 [facility] Comment on above: Performed By: #### M G, CMP, PHOS #### [facility] [address] [place] [address] Dr. Dk Mahoney LYMPH # 1.0 103/ul Critically low 1.2-3.8 [facility] Comment on above: Performed By: #### M G, CMP, PHOS #### [facility] [address] [place] [address] Dr. Dk Mahoney Lymphocytes/100 WBC (Bld) 14.6 % Critically low 20.5-60.0 [facility] Comment on above: Performed By: #### M G, CMP, PHOS #### [facility] [address] [place] [address] Dr. Dk Mahoney MANUAL DIFF REQ NO Normal [facility] Comment on above: Performed By: #### M G, CMP, PHOS #### [facility] [address] [place] [address] Dr. Dk Mahoney MCH (RBC) [Entitic mass] 30.4 pg Normal 25.9-34.0 [facility] Comment on above: Performed By: #### M G, CMP, PHOS #### [facility] [address] [address] [address] kD Mahoney MCHC (RBC) [Mass/Vol] 33.1 g/dL Normal 29.9-35.2 [facility] Comment on above: Performed By: #### M G, CMP, PHOS #### [facility] [address] [place] [address] Dr. Dk Mahoney MCV (RBC) [Entitic vol] 92.0 fL Normal 80.0-94.0 [facility] Comment on above: Performed By: #### M G, CMP, PHOS #### [facility] [address] [place] [address] Dr. Dk Mahoney MONO # 0.7 103/ul Normal 0.3-0.8 [facility] Comment on above: Performed By: #### M G, CMP, PHOS #### [facility] [address] [place] [address] Dr. Dk Mahoney Monocytes/100 WBC (Bld) 11.1 % Normal 1.7-12.0 [facility] Comment on above: Performed By: #### M G, CMP, PHOS #### [facility] [address] [place] [address] Dr. Dk Mahoney NEUT # 4.5 103/ul Normal 1.4-6.5 [facility] Comment on above: Performed By: #### M G, CMP, PHOS #### [facility] [address] [place] [address] Dr. Dk Mahoney Neutrophils/100 WBC (Bld) 69.6 % Normal 43.0-75.0 [facility] Comment on above: Performed By: #### M G, CMP, PHOS #### [facility] [address] [address] [address] Dk Mahoney Platelet mean volume (Bld) [Entitic vol] 9.4 fL Critically low 9.5-13.5 [facility] Comment on above: Performed By: #### M G, CMP, PHOS #### [facility] [address] [address] [address] Dk Mahoney PLT 159 103/ul Normal 150-450 [facility] Comment on above: Performed By: #### M G, CMP, PHOS #### [facility] [address] [address] [address] Dk Mahoney RBC 2.63 106/ul Critically low 4.70-6.10 [facility] Comment on above: Performed By: #### M G, CMP, PHOS #### [facility] [address] [place] [address] Dr. Dk Mahoney WBC 6.5 103/ul Normal 4.0-11.0 [facility] Comment on above: Performed By: #### M G, CMP, PHOS #### [facility] [address] [place] [address] Dr. Dk Mahoney BASO # 0.0 103/ul Normal 0.0-0.1 [facility] Comment on above: Performed By: #### C BC #### [facility] [address] [place] [address] Dr. Dk Mahoney Basophils/100 WBC (Bld) 0.6 % Normal 0.2-2.0 [facility] Comment on above: Performed By: #### C BC #### [facility] [address] [place] [address] Dr. Dk Mahoney EO # 0.2 103/ul Normal 0.0-0.7 [facility] Comment on above: Performed By: #### C BC #### [facility] [address] [place] [address] Dr. Dk Mahoney Eosinophils/100 WBC (Bld) 3.2 % Normal 0.9-7.0 [facility] Comment on above: Performed By: #### C BC #### [facility] [address] [address] [address] Dk Mahoney Erythrocyte distribution width (RBC) [Ratio] 15.2 % Critically high 11.0-15.0 [facility] Comment on above: Performed By: #### C BC #### [facility] [address] [place] [address] Dr. Dk Mahoney Hematocrit (Bld) [Volume fraction] 21.4 % Critically low 42.0-54.0 [facility] Comment on above: Performed By: #### C BC #### [facility] Laboratory [address] [place] [address] Dr. Dk Mahoney Hemoglobin (Bld) [Mass/Vol] 6.9 g/dL Critically low 14.0-18.0 [facility] Comment on above: Performed By: #### C BC #### [facility] [address] [place] [address] Dr. Dk Mahoney IG # 0.05 10e3/ul Critically high 0.00-0.03 [facility] Comment on above: Performed By: #### C BC #### [facility] [address] [place] [address] Dr. Dk Mahoney IG % 0.8 % Critically high 0.0-0.5 [facility] Comment on above: Performed By: #### C BC #### [facility] [address] [place] [address] Dr. Dk Mahoney LYMPH # 0.9 103/ul Critically low 1.2-3.8 [facility] Comment on above: Performed By: #### C BC #### [facility] [address] [place] [address] Dr. Dk Mahoney Lymphocytes/100 WBC (Bld) 13.8 % Critically low 20.5-60.0 [facility] Comment on above: Performed By: #### C BC #### [facility] [address] [place] [address] Dr. Dk Mahoney MANUAL DIFF REQ NO Normal [facility] Comment on above: Performed By: #### C BC #### [facility] [address] [address] [address] Dk Mahoney MCH (RBC) [Entitic mass] 29.9 pg Normal 25.9-34.0 [facility] Comment on above: Performed By: #### C BC #### [facility] [address] [place] [address] Dr. Dk Mahoney MCHC (RBC) [Mass/Vol] 32.2 g/dL Normal 29.9-35.2 [facility] Comment on above: Performed By: #### C BC #### [facility] [address] [place] [address] Dr. Dk Mahoney MCV (RBC) [Entitic vol] 92.6 fL Normal 80.0-94.0 [facility] Comment on above: Performed By: #### C BC #### [facility] [address] [place] [address] Dr. Dk Mahoney MONO # 0.8 103/ul Normal 0.3-0.8 [facility] Comment on above: Performed By: #### C BC #### [facility] [address] [place] [address] Dr. Dk Mahoney Monocytes/100 WBC (Bld) 11.4 % Normal 1.7-12.0 [facility] Comment on above: Performed By: #### C BC #### [facility] [address] [place] [address] Dr. Dk Mahoney NEUT # 4.6 103/ul Normal 1.4-6.5 [facility] Comment on above: Performed By: #### C BC #### [facility] [address] [place] [address] Dr. Dk Mahoney Neutrophils/100 WBC (Bld) 70.2 % Normal 43.0-75.0 [facility] Comment on above: Performed By: #### C BC #### [facility] [address] [place] [address] Dr. Dk Mahoney Platelet mean volume (Bld) [Entitic vol] 9.6 fL Normal 9.5-13.5 [facility] Comment on above: Performed By: #### C BC #### [facility] [address] [address] [address] Dk Mahoney PLT 163 103/ul Normal 150-450 [facility] Comment on above: Performed By: #### C BC #### [facility] [address] [address] [address] Dk Mahoney RBC 2.31 106/ul Critically low 4.70-6.10 [facility] Comment on above: Performed By: #### C BC #### [facility] [address] [address] [address] Dk Mahoney WBC 6.6 103/ul Normal 4.0-11.0 [facility] Comment on above: Performed By: #### C BC #### [facility] [address] [address] [address] Dk Mahoney FERRITINon 07-06-2022 Ferritin [Mass/Vol] 538.0 ng/mL Critically high 26.0-388.0 [facility] Comment on above: Performed By: #### M G, CMP, PHOS #### [facility] [address] [address] [address] Dk Mahoney IRON AND TIBCon 07-06-2022 % SATURATION 29.7 % Normal [facility] Comment on above: Performed By: #### M G, CMP, PHOS #### [facility] [address] [address] [address] Dk Mahoney Iron [Mass/Vol] 51.0 ug/dL Critically low 65.0-175.0 [facility] Comment on above: Performed By: #### M G, CMP, PHOS #### [facility] [address] [address] [address] Dk Mahoney TIBC DIRECT 172.0 ug/dL Critically low 250.0-450.0 [facility] Comment on above: Performed By: #### M G, CMP, PHOS #### [facility] [address] [address] [address] Dk Mahoney LDHon 03-25-2023 LDH 126 U/L Normal 85-227 [facility] Comment on above: Performed By: #### Rosmery Vidal, CMP, PHOS #### [facility] [address] [address] [address] Dk Mahoney MAGNESIUMon 07-06-2022 Magnesium [Mass/Vol] 1.5 mg/dL Critically low 1.8-2.4 [facility] Comment on above: Performed By: #### Rosmery Vidal, CMP, PHOS #### [facility] [address] [address] [address] Dk Mahoney PHOSPHORUSon 07-06-2022 Phosphate [Mass/Vol] 7.8 mg/dL Critically high 2.6-4.7 [facility] Comment on above: Performed By: #### Rosmery Vidal CMP, PHOS #### [facility] [address] [place] [address] Dr. Dk Mahoney POINT OF CARE GLUCOSEon 06-13 Glucose [Mass/Vol] 149 mg/dL Critically high 74-106 [facility] Comment on above: Performed By: #### Rosmery Vidal CMP, PHOS #### [facility] [address] [address] [address] Dk Mahoney Glucose [Mass/Vol] 145 mg/dL Critically high -[address] [place] [address] Comment on above: Performed By: #### Rosmery Vidal CMP, PHOS #### [facility] [address] [address] [address] Dk Mahoney Glucose [Mass/Vol] 112 mg/dL Critically high -106 [facility] Comment on above: Performed By: #### Rosmery Vidal, CMP, PHOS #### [facility] [address] [address] [address] Dk Mahoney Glucose [Mass/Vol] 133 mg/dL Critically high -106 [facility] Comment on above: Performed By: #### Rosmery Vidal, CMP, PHOS #### [facility] [address] [place] [address] Dr. Dk Mahoney Glucose [Mass/Vol] 173 mg/dL Critically high -106 [facility] Comment on above: Performed By: #### P OCGLUC #### [facility] [address] [place] [address] Dr. Dk Mahoney PROF 14(COMP METB)on 023 Albumin [Mass/Vol] 2.4 g/dL Critically low 3.4-5.0 [facility] Comment on above: Performed By: #### M G, CMP, PHOS #### [facility] [address] [place] [address] Dr. Dk Mahoney Albumin/Globulin [Mass ratio] 0.6 {ratio} Normal [facility] Comment on above: Performed By: #### M G, CMP, PHOS #### [facility] [address] [place] [address] Dr. Dk Mahoney ALP [Catalytic activity/Vol] 133 U/L Critically high 46-116 [facility] Comment on above: Performed By: #### M G, CMP, PHOS #### [facility] [address] [place] [address] Dr. Dk Mahoney ALT [Catalytic activity/Vol] 58 U/L Normal 16-63 [facility] Comment on above: Performed By: #### M G, CMP, PHOS #### [facility] [address] [place] [address] Dr. Dk Mahoney Anion gap [Moles/Vol] 16.8 mmol/L Normal [facility] Comment on above: Performed By: #### M G, CMP, PHOS #### [facility] [address] [place] [address] Dr. Dk Mahoney AST [Catalytic activity/Vol] 20 U/L Normal 15-37 [facility] Comment on above: Performed By: #### M G, CMP, PHOS #### [facility] [address] [place] [address] Dr. Dk Mahoney Bilirubin [Mass/Vol] 0.2 mg/dL Normal 0.2-1.0 [facility] Comment on above: Performed By: #### M G, CMP, PHOS #### [facility] [address] [place] [address] Dr. Dk Mahoney Calcium [Mass/Vol] 9.0 mg/dL Normal 8.5-10.1 [facility] Comment on above: Performed By: #### M SHIREEN Vidal, PHOS #### [facility] [address] [address] [address] Dk Mahoney Chloride [Moles/Vol] 107 mmol/L Normal 98-107 [facility] Comment on above: Performed By: #### M Young, CMP, PHOS #### [facility] [address] [address] [address] Dk Mahoney CO2 [Moles/Vol] 18.2 mmol/L Critically low 21.0-32.0 [facility] Comment on above: Performed By: #### Rosmery Vidal CMP, PHOS #### [facility] [address] [place] [address] Dr. Dk Mahoney Creatinine [Mass/Vol] 5.80 mg/dL Critically high 0.70-1.30 [facility] Comment on above: Performed By: #### Rosmery Vidal CMP, PHOS #### [facility] [address] [place] [address] Dr. Dk Mahoney EGFR-AF FRENCH 12 mL/min/1.73m2 Critically low >=60 [facility] Comment on above: Performed By: #### Rosmery Vidal CMP, PHOS #### [facility] [address] [place] [address] Dr. Dk Mahoney EGFR-NON AF FRENCH 10 mL/min/1.73m2 Critically low >=60 [facility] Comment on above: Performed By: #### M Young, CMP, PHOS #### [facility] [address] [address] [address] Dk Mahoney Globulin (S) [Mass/Vol] 3.9 g/dL Normal [facility] Comment on above: Performed By: #### M Young, CMP, PHOS #### [facility] [address] [address] [address] Dk Mahoney Glucose [Mass/Vol] 108 mg/dL Critically high 74-106 [facility] Comment on above: Performed By: #### M G, CMP, PHOS #### [facility] [address] [place] [address] Dr. Dk Mahoney Potassium [Moles/Vol] 5.0 mmol/L Normal 3.5-5.1 [facility] Comment on above: Performed By: #### M G, CMP, PHOS #### [facility] [address] [place] [address] Dr. Dk Mahoney Protein [Mass/Vol] 6.3 g/dL Critically low 6.4-8.2 [facility] Comment on above: Performed By: #### M G, CMP, PHOS #### [facility] [address] [place] [address] Dr. Dk Mahoney Sodium [Moles/Vol] 137 mmol/L Normal 136-145 [facility] Comment on above: Performed By: #### M G, CMP, PHOS #### [facility] [address] [place] [address] Dr. Dk Mahoney Urea nitrogen [Mass/Vol] 83.0 mg/dL Critically high 7.0-18.0 [facility] Comment on above: Performed By: #### M G, CMP, PHOS #### [facility] [address] [place] [address] Dr. Dk Mahoney Urea nitrogen/Creatinine [Mass ratio] 14.3 mg/mg Normal [facility] Comment on above: Performed By: #### M G, CMP, PHOS #### [facility] [address] [place] [address] Dr. Dk Mahoney RETICULOCYTEon 07-06-2022 RETIC 4.20 % Critically high 0.60-3.10 [facility] Comment on above: Performed By: #### M G, CMP, PHOS #### [facility] [address] [place] [address] Dr. Dk Mahoney TYPE AND SCREENon 07-06-2022 TYPE AND SCREEN Negative Normal [facility] Comment on above: Performed By: #### P OCGLUC #### [facility] [address] [place] [address] Dr. Dk Mahoney URIC ACID SERUMon 07-06-2022 Urate [Mass/Vol] 6.1 mg/dL Normal 3.5-7.2 [facility] Comment on above: Performed By: #### M G, CMP, PHOS #### [facility] [address] [place] [address] Dr. Dk Mahoney VIT B12 AND FOLATEon 023 Cobalamin (Vitamin B12) [Mass/Vol] 686.0 pg/mL Normal 193.0-986.0 [facility] Comment on above: Performed By: #### P OCGLUC #### [facility] [address] [place] [address] Dr. Dk Mahoney FOLATE 15.50 ng/mL Normal 8.60-58.90 [facility] Comment on above: Performed By: #### P OCGLUC #### [facility] [address] [place] [address] Dr. Dk Mahoney CBC AUTO DIFFon 07-05-2022 BASO # 0.1 103/ul Normal 0.0-0.1 [facility] Comment on above: Performed By: #### M G, CMP, PHOS #### [facility] [address] [place] [address] Dr. Dk Mahoney Basophils/100 WBC (Bld) 0.7 % Normal 0.2-2.0 [facility] Comment on above: Performed By: #### M G, CMP, PHOS #### [facility] [address] [place] [address] Dr. Dk Mahoney EO # 0.2 103/ul Normal 0.0-0.7 [facility] Comment on above: Performed By: #### M G, CMP, PHOS #### [facility] [address] [place] [address] Dr. Dk Mahoney Eosinophils/100 WBC (Bld) 3.1 % Normal 0.9-7.0 [facility] Comment on above: Performed By: #### M G, CMP, PHOS #### [facility] [address] [place] [address] Dr. Dk Mahoney Erythrocyte distribution width (RBC) [Ratio] 15.4 % Critically high 11.0-15.0 [facility] Comment on above: Performed By: #### M SHIREEN Vidal, PHOS #### [facility] [address] [place] [address] Dr. Dk Mahoeny Hematocrit (Bld) [Volume fraction] 23.9 % Critically low 42.0-54.0 [facility] Comment on above: Performed By: #### M Young, CMP, PHOS #### [facility] [address] [place] [address] Dr. Dk Mahoney Hemoglobin (Bld) [Mass/Vol] 7.7 g/dL Critically low 14.0-18.0 [facility] Comment on above: Performed By: #### M Young CMP, PHOS #### [facility] [address] [place] [address] Dr. Dk Mahoney IG # 0.05 10e3/ul Critically high 0.00-0.03 [facility] Comment on above: Performed By: #### M Young, CMP, PHOS #### [facility] [address] [place] [address] Dr. Dk Mahoney IG % 0.7 % Critically high 0.0-0.5 [facility] Comment on above: Performed By: #### M Young CMP, PHOS #### [facility] [address] [place] [address] Dr. Dk Mahoney LYMPH # 1.0 103/ul Critically low 1.2-3.8 [facility] Comment on above: Performed By: #### M Young, CMP, PHOS #### [facility] [address] [place] [address] Dr. Dk aMhoney Lymphocytes/100 WBC (Bld) 12.8 % Critically low 20.5-60.0 [facility] Comment on above: Performed By: #### M Young, CMP, PHOS #### [facility] [address] [place] [address] Dr. Dk Mahoney MANUAL DIFF REQ NO Normal [facility] Comment on above: Performed By: #### M Young, CMP, PHOS #### [facility] [address] [place] [address] Dr. Dk Mahoney MCH (RBC) [Entitic mass] 30.0 pg Normal 25.9-34.0 [facility] Comment on above: Performed By: #### M G, CMP, PHOS #### [facility] [address] [place] [address] Dr. Dk Mahoney MCHC (RBC) [Mass/Vol] 32.2 g/dL Normal 29.9-35.2 [facility] Comment on above: Performed By: #### M G, CMP, PHOS #### [facility] [address] [place] [address] Dr. Dk Mahoney MCV (RBC) [Entitic vol] 93.0 fL Normal 80.0-94.0 [facility] Comment on above: Performed By: #### M G, CMP, PHOS #### [facility] [address] [place] [address] Dr. Dk Mahoney MONO # 0.8 103/ul Normal 0.3-0.8 [facility] Comment on above: Performed By: #### M G, CMP, PHOS #### [facility] [address] [place] [address] Dr. Dk Mahoney Monocytes/100 WBC (Bld) 10.2 % Normal 1.7-12.0 [facility] Comment on above: Performed By: #### M G, CMP, PHOS #### [facility] [address] [place] [address] Dr. Dk Mahoney NEUT # 5.6 103/ul Normal 1.4-6.5 [facility] Comment on above: Performed By: #### M G, CMP, PHOS #### [facility] [address] [place] [address] Dr. Dk Mahoney Neutrophils/100 WBC (Bld) 72.5 % Normal 43.0-75.0 [facility] Comment on above: Performed By: #### M G, CMP, PHOS #### [facility] [address] [place] [address] Dr. Dk Mahoney Platelet mean volume (Bld) [Entitic vol] 9.8 fL Normal 9.5-13.5 [facility] Comment on above: Performed By: #### M SHIREEN Vidal, PHOS #### [facility] [address] [address] [address] Dk Mahoney PLT 203 103/ul Normal 150-450 [facility] Comment on above: Performed By: #### M SHIREEN Vidal, PHOS #### [facility] [address] [address] [address] Dk Mahoney RBC 2.57 106/ul Critically low 4.70-6.10 [facility] Comment on above: Performed By: #### M SHIREEN Vidal, PHOS #### [facility] [address] [address] [address] Dk Mahoney WBC 7.7 103/ul Normal 4.0-11.0 [facility] Comment on above: Performed By: #### Rosmery Vidal CMP, PHOS #### [facility] [address] [address] [address] ABD/PELVIS WO CONon 07-05 CT ABD/PELVIS WO CON EXAMINATION:CT ABD/ PELVIS WO CON INDICATION:GENERALIZED ABDOMINAL PAIN COMPARISON:04/21/2022 TECHNIQUE:Multiple thin section transaxial [...] is atherosclerotic plaque abdominal aorta without aneurysm. PERITONEUM/RETROPERITONEUM : Peritoneum/retroperitoneum is unremarkable. LYMPH NODES: There are enlarged [...] MARQUES AMAYA Date: 2022-07-05 18:21 Normal [facility]on 06[facility]13 SARS-CoV-2 (COVID-19) RNA JASON+probe Ql (Unsp spec) Not detected Normal NOT DETECTED [facility] Comment on above: Result Comment: [...] for this test is supported by the [place] [place] and [employer]'s declaration that [...] used). Performed By: #### C BC #### [facility] [address] [place] [address] Dr. Dk Mahoney ER URINE PROFILEon 3 Bilirubin Ql (U) Negative Normal NEGATIVE [facility] Comment on above: Performed By: #### M G, CMP, PHOS #### [facility] [address] [address] [address] Dk Mahoney Clarity (U) CLEAR Normal CLEAR [facility] Comment on above: Performed By: #### M G, CMP, PHOS #### [facility] [address] [place] [address] Dr. Dk Mahoney Color (U) YELLOW Normal YELLOW [facility] Comment on above: Performed By: #### M G, CMP, PHOS #### [facility] [address] [place] [address] Dr. Dk Mahoney ERUAHD A micrscopic examina tion will be performed if indicated. Normal [facility] Comment on above: Performed By: #### M G, CMP, PHOS #### [facility] [address] [place] [address] Dr. Dk Mahoney Glucose Ql (U) 100 mg/dl Abnormal NEGATIVE [facility] Comment on above: Performed By: #### M G, CMP, PHOS #### [facility] [address] [place] [address] Dr. Dk Mahoney Hemoglobin Ql (U) MODERATE Abnormal NEGATIVE [facility] Comment on above: Performed By: #### M G, CMP, PHOS #### [facility] [address] [place] [address] Dr. Dk Mahoney Ketones Ql (U) Negative Normal NEGATIVE [facility] Comment on above: Performed By: #### M G, CMP, PHOS #### [facility] [address] [place] [address] Dr. Dk Mahoney LEUKOCYTES LARGE Abnormal NEGATIVE [facility] Comment on above: Performed By: #### M G, CMP, PHOS #### [facility] [address] [place] [address] Dr. Dk Mahoney Nitrite Ql (U) Negative Normal NEGATIVE [facility] Comment on above: Performed By: #### M G, CMP, PHOS #### [facility] [address] [place] [address] Dr. Dk Mahoney pH (U) 7.0 [pH] Normal 5-9 [facility] Comment on above: Performed By: #### M G, CMP, PHOS #### [facility] [address] [place] [address] Dr. Dk Mahoney Protein (U) [Mass/Vol] 30 mg/dL Abnormal NEGATIVE/ TRACE [facility] Comment on above: Performed By: #### M G, CMP, PHOS #### [facility] [address] [place] [address] Dr. Dk Mahoney SPEC GRAVITY 1.010 Normal 1.005-<=1.0 25 [facility] Comment on above: Performed By: #### M G, CMP, PHOS #### [facility] [address] [place] [address] Dr. Dk Mahoney UR MICRO IND INDICATED Normal [facility] Comment on above: Performed By: #### M G, CMP, PHOS #### [facility] [address] [place] [address] Dr. Dk Mahoney Urobilinogen Qn (U) 0.2 {Ramiro'U}/dL Normal 0.2 - 1. 0 [facility] Comment on above: Performed By: #### M G, CMP, PHOS #### [facility] [address] [place] [address] Dr. Dk Mahoney PROF 14(COMP METB)on 023 Albumin [Mass/Vol] 2.7 g/dL Critically low 3.4-5.0 [facility] Comment on above: Performed By: #### C BC #### [facility] [address] [place] [address] Dr. Dk Mahoney Albumin/Globulin [Mass ratio] 0.6 {ratio} Normal [facility] Comment on above: Performed By: #### C BC #### [facility] [address] [place] [address] Dr. Dk Mahoney ALP [Catalytic activity/Vol] 148 U/L Critically high 46-116 [facility] Comment on above: Performed By: #### C BC #### [facility] [address] [place] [address] Dr. Dk Mahoney ALT [Catalytic activity/Vol] 70 U/L Critically high 16-63 [facility] Comment on above: Performed By: #### C BC #### [facility] [address] [place] [address] Dr. Dk Mahoney Anion gap [Moles/Vol] 16.7 mmol/L Normal [facility] Comment on above: Performed By: #### C BC #### [facility] [address] [place] [address] Dr. Dk Mahoney AST [Catalytic activity/Vol] 26 U/L Normal 15-37 [facility] Comment on above: Performed By: #### C BC #### [facility] [address] [place] [address] Dr. Dk Mahoney Bilirubin [Mass/Vol] 0.4 mg/dL Normal 0.2-1.0 [facility] Comment on above: Performed By: #### C BC #### [facility] [address] [place] [address] Dr. Dk Mahoney Calcium [Mass/Vol] 9.2 mg/dL Normal 8.5-10.1 [facility] Comment on above: Performed By: #### C BC #### [facility] [address] [place] [address] Dr. Dk Mahoney Chloride [Moles/Vol] 105 mmol/L Normal 98-107 [facility] Comment on above: Performed By: #### C BC #### [facility] [address] [place] [address] Dr. Dk Mahoney CO2 [Moles/Vol] 18.1 mmol/L Critically low 21.0-32.0 [facility] Comment on above: Performed By: #### C BC #### [facility] [address] [address] [address] Dk Mahoney Creatinine [Mass/Vol] 5.81 mg/dL Critically high 0.70-1.30 [facility] Comment on above: Performed By: #### C BC #### [facility] [address] [address] [address] Dk Mahoney EGFR-AF FRENCH 12 mL/min/1.73m2 Critically low >=60 [facility] Comment on above: Performed By: #### C BC #### [facility] [address] [address] [address] Dk Mahoney EGFR-NON AF FRENCH 10 mL/min/1.73m2 Critically low >=60 [facility] Comment on above: Performed By: #### C BC #### [facility] [address] [address] [address] Dk Mahoney Globulin (S) [Mass/Vol] 4.3 g/dL Normal [facility] Comment on above: Performed By: #### C BC #### [facility] [address] [address] [address] Dk Mahoney Glucose [Mass/Vol] 138 mg/dL Critically high 74-106 T [facility] Comment on above: Performed By: #### C BC #### [facility] [address] [address] [address] Dk Mahoney Potassium [Moles/Vol] 4.8 mmol/L Normal 3.5-5.1 [facility] Comment on above: Performed By: #### C BC #### [facility] [address] [address] [address] Dk Mahoney Protein [Mass/Vol] 7.0 g/dL Normal 6.4-8.2 [facility] Comment on above: Performed By: #### C BC #### [facility] [address] [address] [address] Dk Mahoney Sodium [Moles/Vol] 135 mmol/L Critically low 136-145 [facility] Comment on above: Performed By: #### C BC #### [facility] [address] [address] [address] Dk Mahoney Urea nitrogen [Mass/Vol] 83.0 mg/dL Critically high 7.0-18.0 [facility] Comment on above: Performed By: #### C BC #### [facility] [address] [address] [address] Dk Mahoney Urea nitrogen/Creatinine [Mass ratio] 14.3 mg/mg [facility] [place] Comment on above: Performed By: #### C BC #### [facility] [address] [address] [address] Dk Mahoney TROPONIN, HIGH SENSITIVITYon 07-05-2022 HSTROP 21.4 pg/mL Normal 4.0-76.1 [facility] [place] Comment on above: Result Comment: CUT- OFF POINTS HAVE BEEN ESTABLISHED BASED ON THE FOURTH UNIVERSAL DEFINITIONS OF MYOCARDIAL INFARCTION. THE UPPER REFERENCE LIMIT (URL) OF TROPONIN, DEFINED THE 99TH PERCENTILE OF cTnI DISTRIBUTION IN A REFERENCE POPULATION, HAS BEEN CONFIRMED THE DECISION THRESHOLD FOR [place] DIAGNOSIS. Performed By: #### C BC #### [facility] [address] [address] [address] Dk Mahoney URINE MICROSCOPIC ONLYon BACTERIA MODERATE Abnormal NONE SEEN [facility] [place] Comment on above: Performed By: #### M G, CMP, PHOS #### [facility] [address] [address] [address] Dk Mahoney Bacteria identified Cx Nom (U) INDICATED Normal [facility] Comment on above: Performed By: #### M G, CMP, PHOS #### [facility] [address] [address] [address] Dk Mahoney CAST NONE SEEN Normal NONE SEEN [facility] [place] Comment on above: Performed By: #### M G, CMP, PHOS #### [facility] [address] [address] [address] Dk Mahoney Crystals LM Nom (Urine sed) NONE SEEN Normal NONE SEEN [facility] [place] Comment on above: Performed By: #### M G, CMP, PHOS #### [facility] [address] [address] [address] Dk Mahoney Epithelial cells LM Ql (Urine sed) FEW Abnormal NONE SEEN /RARE [facility] Comment on above: Performed By: #### M G, CMP, PHOS #### [facility] [address] [address] [address] Dk Mahoney MUCOUS NONE SEEN Normal NONE SEEN [facility] Comment on above: Performed By: #### M G, CMP, PHOS #### [facility] [address] [address] [address] Dk Mahoney RBC 10-20 Abnormal 0-2 [facility] [place] Comment on above: Performed By: #### M G CMP, PHOS #### [facility] [address] [place] [address] Dr. Dk Mahoney WBC 75-100 Abnormal NONE SEEN [facility] Comment on above: Performed By: #### M Young CMP, PHOS #### [facility] [address] [address] [address] Dk Mahoney YEAST PRESENT Abnormal NONE SEEN [facility] Comment on above: Performed By: #### M SHIREEN Vidal, PHOS #### [facility] [address] [place] [address] Dr. Dk Mahoney PRBC LEUKOREDUCEDon 05-11-19 23 PRBC LEUKOREDUCED Cross Match Result Compatible Unit Blood Type O Neg Unit Number [id number] Status Information Transfused Product ID Red Blood Cells Product Code [id number] Normal [facility] Comment on above: Performed By: #### P RBC #### [facility] [address] [place] [address] Dr. Dk Mahoney ABO AND RH TYPEon 05-04-2022 ABO and Rh group Nom (Bld) ABO Rh Typing O Rh Negative Normal [facility] Comment on above: Performed By: #### A NOE TNS #### [facility] [address] [address] [address] Dk Mahoney BNPon 05-04-2022 Natriuretic peptide B (Bld) [Mass/Vol] 16141.0 pg/mL Critically high <=900.0 [facility] Comment on above: Performed By: #### M Young, CMP, PHOS #### [facility] [address] [place] [address] Dr. Dk Mahoney CBC AUTO DIFFon 05-04-2022 BASO # 0.1 103/ul Normal 0.0-0.1 [facility] Comment on above: Performed By: #### M Young CMP, PHOS #### [facility] [address] [place] [address] Dr. Dk Mahoney Basophils/100 WBC (Bld) 0.7 % Normal 0.2-2.0 [facility] Comment on above: Performed By: #### M G CMP, PHOS #### [facility] [address] [place] [address] Dr. Dk Mahoney EO # 0.3 103/ul Normal 0.0-0.7 [facility] Comment on above: Performed By: #### M G CMP, PHOS #### [facility] [address] [place] [address] Dr. Dk Mahoney Eosinophils/100 WBC (Bld) 4.4 % Normal 0.9-7.0 [facility] Comment on above: Performed By: #### M Young CMP, PHOS #### [facility] [address] [place] [address] Dr. Dk Mahoney Erythrocyte distribution width (RBC) [Ratio] 15.4 % Critically high 11.0-15.0 [facility] Comment on above: Performed By: #### M G, CMP, PHOS #### [facility] [address] [place] [address] Dr. Dk Mahoney Hematocrit (Bld) [Volume fraction] 21.6 % Critically low 42.0-54.0 [facility] Comment on above: Performed By: #### M G CMP, PHOS #### [facility] [address] [place] [address] Dr. Dk Mahoney Hemoglobin (Bld) [Mass/Vol] 7.4 g/dL Critically low 14.0-18.0 [facility] Comment on above: Performed By: #### M G, CMP, PHOS #### [facility] [address] [address] [address] Dk Mahoney IG # 0.03 10e3/ul Normal 0.00-0.03 [facility] [place] Comment on above: Performed By: #### M G, CMP, PHOS #### [facility] [address] [place] [address] Dr. Dk Mahoney IG % 0.4 % Normal 0.0-0.5 [facility] [place] Comment on above: Performed By: #### M G, CMP, PHOS #### [facility] [address] [place] [address] Dr. Dk Mahoney LYMPH # 0.9 103/ul Critically low 1.2-3.8 [facility] Comment on above: Performed By: #### M G, CMP, PHOS #### [facility] [address] [place] [address] Dr. Dk Mahoney Lymphocytes/100 WBC (Bld) 13.8 % Critically low 20.5-60.0 [facility] [place] Comment on above: Performed By: #### M G, CMP, PHOS #### [facility] [address] [place] [address] Dr. Dk Mahoney MANUAL DIFF REQ NO Normal [facility] Comment on above: Performed By: #### M G, CMP, PHOS #### [facility] [address] [place] [address] Dr. Dk Mahoney MCH (RBC) [Entitic mass] 28.4 pg Normal 25.9-34.0 [facility] [place] Comment on above: Performed By: #### M G, CMP, PHOS #### [facility] [address] [place] [address] Dr. Dk Mahoney MCHC (RBC) [Mass/Vol] 34.3 g/dL Normal 29.9-35.2 [facility] [place] Comment on above: Performed By: #### M G, CMP, PHOS #### [facility] [address] [place] [address] Dr. Dk Mahoney MCV (RBC) [Entitic vol] 82.8 fL Normal 80.0-94.0 [facility] Comment on above: Performed By: #### M G, CMP, PHOS #### [facility] [address] [address] [address] Dk Mahoney MONO # 0.6 103/ul Normal 0.3-0.8 [facility] Comment on above: Performed By: #### M G, CMP, PHOS #### [facility] [address] [place] [address] Dr. Dk Mahoney Monocytes/100 WBC (Bld) 8.8 % Normal 1.7-12.0 [facility] Comment on above: Performed By: #### M G, CMP, PHOS #### [facility] [address] [place] [address] Dr. Dk Mahoney NEUT # 4.9 103/ul Normal 1.4-6.5 [facility] Comment on above: Performed By: #### M G, CMP, PHOS #### [facility] [address] [place] [address] Dr. Dk Mahoney Neutrophils/100 WBC (Bld) 71.9 % Normal 43.0-75.0 [facility] Comment on above: Performed By: #### M G, CMP, PHOS #### [facility] [address] [place] [address] Dr. Dk Mahoney Platelet mean volume (Bld) [Entitic vol] 9.3 fL Critically low 9.5-13.5 [facility] Comment on above: Performed By: #### M G, CMP, PHOS #### [facility] [address] [place] [address] Dr. Dk Mahoney PLT 178 103/ul Normal 150-450 [facility] Comment on above: Performed By: #### M G, CMP, PHOS #### [facility] [address] [place] [address] Dr. Dk Mahoney RBC 2.61 106/ul Critically low 4.70-6.10 [facility] Comment on above: Performed By: #### M G, CMP, PHOS #### [facility] [address] [address] [address] Dk Mahoney WBC 6.8 103/ul Normal 4.0-11.0 [facility] Comment on above: Performed By: #### M SHIREEN Vidal, PHOS #### [facility] [address] [address] [address] Dk Mahoney Covid-19 PCR ([facility])on 04-15 SARS-CoV-2 (COVID-19) RNA JASON+probe Ql (Unsp spec) Not detected Normal NOT DETECTED [facility] Comment on above: Result Comment: [...] for this test is supported by the [place] [employer] and Human Service's declaration that [...] used). Performed By: #### P OCGLUC #### [facility] [address] [place] [address] Dr. Dk Mahoney PROF CHEM 8 (BAS METB)on Anion gap [Moles/Vol] 14.7 mmol/L Normal [facility] [place] Comment on above: Performed By: #### M SHIREEN Vidal, PHOS #### [facility] [address] [address] [address] Dk Mahoney Calcium [Mass/Vol] 9.3 mg/dL Normal 8.5-10.1 [facility] Comment on above: Performed By: #### M SHIREEN Vidal, PHOS #### [facility] [address] [address] [address] Dk Mahoney Chloride [Moles/Vol] 109 mmol/L Critically high 98-107 [facility] [place] Comment on above: Performed By: #### M G, CMP, PHOS #### [facility] [address] [address] [address] Dk Mahoney CO2 [Moles/Vol] 21.3 mmol/L Normal 21.0-32.0 [facility] Comment on above: Performed By: #### M G, CMP, PHOS #### [facility] [address] [address] [address] Dk Mahoney Creatinine [Mass/Vol] 4.61 mg/dL Critically high 0.70-1.30 [facility] [place] Comment on above: Performed By: #### M G, CMP, PHOS #### [facility] [address] [address] [address] Dk Mahoney EGFR-AF FRENCH 15 mL/min/1.73m2 Critically low >=60 [facility] [place] Comment on above: Performed By: #### M G, CMP, PHOS #### [facility] [address] [address] [address] Dk Mahoney EGFR-NON AF FRENCH 13 mL/min/1.73m2 Critically low >=60 [facility] [place] Comment on above: Performed By: #### M G, CMP, PHOS #### [facility] [address] [address] [address] Dk Mahoney Glucose [Mass/Vol] 200 mg/dL Critically high 74-106 [facility] Comment on above: Performed By: #### M G, CMP, PHOS #### [facility] [address] [address] [address] Dk Mahoney Potassium [Moles/Vol] 5.0 mmol/L Normal 3.5-5.1 [facility] [place] Comment on above: Performed By: #### M G, CMP, PHOS #### [facility] [address] [address] [address] Dk Mahoney Sodium [Moles/Vol] 140 mmol/L Normal 136-145 [facility] Comment on above: Performed By: #### M SHIREEN Vidal, PHOS #### [facility] [address] [address] [address] Dk Mahoney Urea nitrogen [Mass/Vol] 64.0 mg/dL Critically high 7.0-18.0 [facility] [place] Comment on above: Performed By: #### M SHIREEN Vidal, PHOS #### [facility] [address] [place] [address] Dr. Dk Mahoney Urea nitrogen/Creatinine [Mass ratio] 13.9 mg/mg Normal [facility] [place] Comment on above: Performed By: #### M SHIREEN Vidal, PHOS #### [facility] [address] [place] [address] Dr. Dk Mahoney TROPONIN, HIGH SENSITIVITYon 05-04-2022 HSTROP 29.4 pg/mL Normal 4.0-76.1 [facility] [place] Comment on above: Result Comment: CUT- OFF POINTS HAVE BEEN ESTABLISHED BASED ON THE FOURTH UNIVERSAL DEFINITIONS OF MYOCARDIAL INFARCTION. THE UPPER REFERENCE LIMIT (URL) OF TROPONIN, DEFINED THE 99TH PERCENTILE OF cTnI DISTRIBUTION IN A REFERENCE POPULATION, HAS BEEN CONFIRMED THE DECISION THRESHOLD FOR [place] DIAGNOSIS. Performed By: #### Rosmery Vidal CMP, PHOS #### [facility] [address] [place] [address] Dr. kD Mahoney TYPE AND SCREENon 05-04-2022 TYPE AND SCREEN Negative Normal [facility] Comment on above: Performed By: #### SHOBHA LEONGS #### [facility] [address] [place] [address] Dr. Dk Mahoney US ROWAN DOP LEG [...] by: ROBERTO HEBERT Date: 2022-05-04 14:33 Normal [facility] PRBC LEUKOREDUCEDon 04-29-19 23 PRBC LEUKOREDUCED Cross Match Result Compatible Unit Blood Type O Neg Unit Number [id number] Status Information Transfused Product ID Red Blood Cells Product Code [id number] Normal [facility] [place] Comment on above: Performed By: #### P RBC #### [facility] [address] [place] [address] Dr. Dk Mahoney ABO RH RETYPEon 04-19-2022 ABO and Rh group Nom (Bld) DONE Normal [facility] [place] Comment on above: Performed By: #### M G, CMP, PHOS #### [facility] [address] [place] [address] Dr. Dk Mahoney CBC AUTO DIFFon 04-19-2022 BASO # 0.1 103/ul Normal 0.0-0.1 [facility] [place] Comment on above: Performed By: #### M G, CMP, PHOS #### [facility] [address] [place] [address] Dr. Dk Mahoney Basophils/100 WBC (Bld) 0.8 % Normal 0.2-2.0 [facility] Comment on above: Performed By: #### M G, CMP, PHOS #### [facility] [address] [place] [address] Dr. Dk Mahoney EO # 0.5 103/ul Normal 0.0-0.7 [facility] Comment on above: Performed By: #### M G, CMP, PHOS #### [facility] [address] [place] [address] Dr. Dk Mahoney Eosinophils/100 WBC (Bld) 6.9 % Normal 0.9-7.0 [facility] Comment on above: Performed By: #### M G, CMP, PHOS #### [facility] [address] [place] [address] Dr. Dk Mahoney Erythrocyte distribution width (RBC) [Ratio] 16.3 % Critically high 11.0-15.0 [facility] Comment on above: Performed By: #### M G, CMP, PHOS #### [facility] [address] [place] [address] Dr. Dk Mahoney Hematocrit (Bld) [Volume fraction] 20.8 % Critically low 42.0-54.0 [facility] [place] Comment on above: Performed By: #### M G, CMP, PHOS #### [facility] [address] [place] [address] Dr. Dk Mahoney Hemoglobin (Bld) [Mass/Vol] 6.8 g/dL Critically low 14.0-18.0 [facility] [place] Comment on above: Performed By: #### M G, CMP, PHOS #### [facility] [address] [place] [address] Dr. Dk Mahoney IG # 0.04 10e3/ul Critically high 0.00-0.03 [facility] Comment on above: Performed By: #### M G, CMP, PHOS #### [facility] [address] [place] [address] Dr. Dk Mahoney IG % 0.6 % Critically high 0.0-0.5 [facility] Comment on above: Performed By: #### M G, CMP, PHOS #### [facility] [address] [place] [address] Dr. Dk Mahoney LYMPH # 1.0 103/ul Critically low 1.2-3.8 [facility] Comment on above: Performed By: #### M G, CMP, PHOS #### [facility] [address] [place] [address] Dr. Dk Mahoney Lymphocytes/100 WBC (Bld) 14.1 % Critically low 20.5-60.0 [facility] [place] Comment on above: Performed By: #### M G, CMP, PHOS #### [facility] [address] [place] [address] Dr. Dk Mahoney MANUAL DIFF REQ NO Normal [facility] Comment on above: Performed By: #### M G, CMP, PHOS #### [facility] [address] [place] [address] Dr. Dk Mahoney MCH (RBC) [Entitic mass] 29.3 pg Normal 25.9-34.0 [facility] Comment on above: Performed By: #### M Young, CMP, PHOS #### [facility] [address] [place] [address] Dr. Dk Mahoney MCHC (RBC) [Mass/Vol] 32.7 g/dL Normal 29.9-35.2 [facility] Comment on above: Performed By: #### M Young CMP, PHOS #### [facility] [address] [place] [address] Dr. Dk Mahoney MCV (RBC) [Entitic vol] 89.7 fL Normal 80.0-94.0 [facility] Comment on above: Performed By: #### M Young CMP, PHOS #### [facility] [address] [place] [address] Dr. Dk Mahoney MONO # 0.7 103/ul Normal 0.3-0.8 [facility] Comment on above: Performed By: #### Rosmery Vidal CMP, PHOS #### [facility] [address] [place] [address] Dr. Dk Mahoney Monocytes/100 WBC (Bld) 10.1 % Normal 1.7-12.0 [facility] Comment on above: Performed By: #### M Young CMP, PHOS #### [facility] [address] [place] [address] Dr. Dk Mahoney NEUT # 4.9 103/ul Normal 1.4-6.5 [facility] Comment on above: Performed By: #### M Young CMP, PHOS #### [facility] [address] [place] [address] Dr. Dk Mahoney Neutrophils/100 WBC (Bld) 67.5 % Normal 43.0-75.0 [facility] Comment on above: Performed By: #### M G CMP, PHOS #### [facility] [address] [place] [address] Dr. Dk Mahoney Platelet mean volume (Bld) [Entitic vol] 9.5 fL Normal 9.5-13.5 [facility] Comment on above: Performed By: #### M G, SHIREEN, PHOS #### [facility] [address] [address] [address] Dk Mahoney PLT 212 103/ul Normal 150-450 [facility] Comment on above: Performed By: #### M G, SHIREEN, PHOS #### [facility] [address] [place], [place] [address] Dr. Dk Mahoney RBC 2.32 106/ul Critically low 4.70-6.10 [facility] Comment on above: Performed By: #### M G, CMP, PHOS #### [facility] [address] [address] [address] Dk Mahoney WBC 7.2 103/ul Normal 4.0-11.0 [facility] Comment on above: Performed By: #### M Young, SHIREEN, PHOS #### [facility] [address] [place] [address] Dr. Dk Mahoney Covid-19 PCR ([facility])on SARS-CoV-2 (COVID-19) RNA JASON+probe Ql (Unsp spec) Not detected Normal NOT DETECTED [facility] Comment on above: Result Comment: [...] for this test is supported by the [place] [employer] and Human Service's declaration that [...] longer be used). Performed By: #### M Young, SHIREEN, PHOS #### [facility] [address] [place] [address] Dr. Dk Mahoney PROF 14(COMP METB)on 023 Albumin [Mass/Vol] 2.4 g/dL Critically low 3.4-5.0 [facility] Comment on above: Performed By: #### M Young, CMP, PHOS #### [facility] [address] [address] [address] Dk Mahoney Albumin/Globulin [Mass ratio] 0.6 {ratio} Normal [facility] Comment on above: Performed By: #### M Young, CMP, PHOS #### [facility] [address] [address] [address] Dk Mahoney ALP [Catalytic activity/Vol] 142 U/L Critically high 46-116 [facility] Comment on above: Performed By: #### M Young, CMP, PHOS #### [facility] [address] [address] [address] Dk Mahoney ALT [Catalytic activity/Vol] 26 U/L Normal 16-63 [facility] Comment on above: Performed By: #### M Young, CMP, PHOS #### [facility] [address] [address] [address] Dk Mahoney Anion gap [Moles/Vol] 12.0 mmol/L Normal [facility] Comment on above: Performed By: #### M Young, CMP, PHOS #### [facility] [address] [address] [address] Dk Mahoney AST [Catalytic activity/Vol] 19 U/L Normal 15-37 [facility] Comment on above: Performed By: #### M G, CMP, PHOS #### [facility] [address] [address] [address] Dk Mahoney Bilirubin [Mass/Vol] 0.3 mg/dL Normal 0.2-1.0 [facility] Comment on above: Performed By: #### M Young, CMP, PHOS #### [facility] [address] [address] [address] Dk Mahoney Calcium [Mass/Vol] 9.3 mg/dL Normal 8.5-10.1 [facility] Comment on above: Performed By: #### M G, CMP, PHOS #### [facility] [address] [address] [address] Dk Mahoney Chloride [Moles/Vol] 109 mmol/L Critically high 98-107 [facility] Comment on above: Performed By: #### M G, CMP, PHOS #### [facility] [address] [place] [address] Dr. Dk Mahoney CO2 [Moles/Vol] 25.0 mmol/L Normal 21.0-32.0 [facility] Comment on above: Performed By: #### M G, CMP, PHOS #### [facility] [address] [place] [address] Dr. Dk Mahoney Creatinine [Mass/Vol] 4.83 mg/dL Critically high 0.70-1.30 [facility] Comment on above: Performed By: #### M G, CMP, PHOS #### [facility] [address] [place] [address] Dr. Dk Mahoney EGFR-AF FRENCH 15 mL/min/1.73m2 Critically low >=60 [facility] Comment on above: Performed By: #### M Young, CMP, PHOS #### [facility] [address] [place] [address] Dr. Dk Mahoney EGFR-NON AF FRENCH 12 mL/min/1.73m2 Critically low >=60 [facility] Comment on above: Performed By: #### M G, CMP, PHOS #### [facility] [address] [place] [address] Dr. Dk Mahoney Globulin (S) [Mass/Vol] 4.1 g/dL Normal [facility] Comment on above: Performed By: #### M G, CMP, PHOS #### [facility] [address] [place] [address] Dr. Dk Mahoney Glucose [Mass/Vol] 128 mg/dL Critically high 74-106 [facility] Comment on above: Performed By: #### M G, CMP, PHOS #### [facility] [address] [place] [address] Dr. Dk Mahoney Potassium [Moles/Vol] 5.0 mmol/L Normal 3.5-5.1 [facility] Comment on above: Performed By: #### Rosmery Vidal CMP, PHOS #### [facility] [address] [address] [address] Dk Mahoney Protein [Mass/Vol] 6.5 g/dL Normal 6.4-8.2 [facility] Comment on above: Performed By: #### Rosmery Vidal CMP, PHOS #### [facility] [address] [address] [address] Dk Mahoney Sodium [Moles/Vol] 141 mmol/L Normal 136-145 [facility] Comment on above: Performed By: #### Rosmery Vidal CMP, PHOS #### [facility] [address] [place] [address] Dr. Dk Mahoney Urea nitrogen [Mass/Vol] 62.0 mg/dL Critically high 7.0-18.0 [facility] Comment on above: Performed By: #### Rosmery Vidal CMP, PHOS #### [facility] [address] [place] [address] Dr. Dk Mahoney Urea nitrogen/Creatinine [Mass ratio] 12.8 mg/mg Normal [facility] Comment on above: Performed By: #### Rosmery Vidal CMP, PHOS #### [facility] [address] [place] [address] Dr. Dk Mahoney PROTIMEon 04-19-2022 INR Coag (PPP) [Relative time] 1.01 {INR} Normal [facility] Comment on above: Performed By: #### P OCGLUC #### [facility] [address] [place] [address] Dr. Dk Mahoney INR GUIDELINES SEE BELOW Normal [facility] Comment on above: Result Comment: JOSELO RED INR: 2.0 - 3.0 CONDITIONS NOT LISTED BELOW 2.5 - 3.5 FOR PROSTHETIC HEART VALVE REPLACEMENT 2.5 - 3.5 RECURRENT THROMBOSIS Performed By: #### P OCGLUC #### [facility] [address] [place] [address] Dr. Dk Mahoney PT Coag (PPP) [Time] 10.9 s Normal 9.0-11.6 [facility] Comment on above: Performed By: #### P OCGLUC #### [facility] [address] [place] [address] Dr. Dk Mahoney PTTon 04-19-2022 aPTT Coag (Bld) [Time] 25.8 s Normal 22.3-36.2 [facility] Comment on above: Performed By: #### P OCGLUC #### [facility] [address] [place] [address] Dr. Dk Mahoney TYPE AND SCREENon 04-19-2022 TYPE AND SCREEN Negative Normal [facility] Comment on above: Performed By: #### P OCGLUC #### [facility] [address] [place] [address] Dr. Dk Mahoney CBC AUTO DIFFon 10-24-2021 BASO # 0.1 103/ul Normal 0.0-0.1 [facility] Comment on above: Performed By: #### C BC #### [facility] [address] [place] [address] Dr. Dk Mahoney Basophils/100 WBC (Bld) 0.7 % Normal 0.2-2.0 [facility] Comment on above: Performed By: #### C BC #### [facility] [address] [place] [address] Dr. Dk Mahoney EO # 0.6 103/ul Normal 0.0-0.7 [facility] Comment on above: Performed By: #### C BC #### [facility] [address] [place] [address] Dr. Dk Mahoney Eosinophils/100 WBC (Bld) 7.7 % Critically high 0.9-7.0 [facility] Comment on above: Performed By: #### C BC #### [facility] [address] [place] [address] Dr. Dk Mahoney Erythrocyte distribution width (RBC) [Ratio] 17.2 % Critically high 11.0-15.0 [facility] Comment on above: Performed By: #### C BC #### [facility] [address] [address] [address] Dk Mahoney Hematocrit (Bld) [Volume fraction] 26.1 % Critically low 42.0-54.0 [facility] Comment on above: Performed By: #### C BC #### [facility] [address] [address] [address] Dk Mahoney Hemoglobin (Bld) [Mass/Vol] 8.1 g/dL Critically low 14.0-18.0 [facility] Comment on above: Performed By: #### C BC #### [facility] [address] [address] [address] Dk Mahoney IG # 0.06 10e3/ul Critically high 0.00-0.03 [facility] Comment on above: Performed By: #### C BC #### [facility] [address] [place] [address] Dr. Dk Mahoney IG % 0.8 % Critically high 0.0-0.5 [facility] Comment on above: Performed By: #### C BC #### [facility] [address] [place] [address] Dr. Dk Mahoney LYMPH # 1.4 103/ul Normal 1.2-3.8 [facility] Comment on above: Performed By: #### C BC #### [facility] [address] [place] [address] Dr. Dk Mahoney Lymphocytes/100 WBC (Bld) 18.1 % Critically low 20.5-60.0 [facility] Comment on above: Performed By: #### C BC #### [facility] [address] [place] [address] Dr. Dk Mahoney MANUAL DIFF REQ NO Normal [facility] Comment on above: Performed By: #### C BC #### [facility] [address] [place] [address] Dr. Dk Mahoney MCH (RBC) [Entitic mass] 25.6 pg Critically low 25.9-34.0 [facility] Comment on above: Performed By: #### C BC #### [facility] [address] [place] [address] Dr. Dk Mahoney MCHC (RBC) [Mass/Vol] 31.0 g/dL Normal 29.9-35.2 [facility] Comment on above: Performed By: #### C BC #### [facility] [address] [place] [address] Dr. Dk Mahoney MCV (RBC) [Entitic vol] 82.3 fL Normal 80.0-94.0 [facility] Comment on above: Performed By: #### C BC #### [facility] [address] [place] [address] Dr. Dk Mahoney MONO # 0.9 103/ul Critically high 0.3-0.8 [facility] Comment on above: Performed By: #### C BC #### [facility] [address] [place] [address] Dr. Dk Mahoney Monocytes/100 WBC (Bld) 12.4 % Critically high 1.7-12.0 [facility] Comment on above: Performed By: #### C BC #### [facility] [address] [place] [address] Dr. Dk Mahoney NEUT # 4.6 103/ul Normal 1.4-6.5 [facility] Comment on above: Performed By: #### C BC #### [facility] [address] [place] [address] Dr. Dk Mahoney Neutrophils/100 WBC (Bld) 60.3 % Normal 43.0-75.0 [facility] Comment on above: Performed By: #### C BC #### [facility] [address] [place] [address] Dr. Dk Mahoney Platelet mean volume (Bld) [Entitic vol] 9.5 fL Normal 9.5-13.5 [facility] Comment on above: Performed By: #### C BC #### [facility] [address] [place] [address] Dr. Dk Mahoney PLT 201 103/ul Normal 150-450 [facility] Comment on above: Performed By: #### C BC #### [facility] [address] [place] [address] Dr. Dk Mahoney RBC 3.17 106/ul Critically low 4.70-6.10 [facility] Comment on above: Performed By: #### C BC #### [facility] [address] [address] [address] Dk Mahoney WBC 7.5 103/ul Normal 4.0-11.0 [facility] Comment on above: Performed By: #### C BC #### [facility] [address] [address] [address] Dk Mahoney PROF CHEM 8 (BAS METB)on Anion gap [Moles/Vol] 12.3 mmol/L Normal [facility] Comment on above: Performed By: #### M Young, CMP, PHOS #### [facility] [address] [place] [address] Dr. Dk Mahoney Calcium [Mass/Vol] 9.6 mg/dL Normal 8.5-10.1 [facility] Comment on above: Performed By: #### M G, CMP, PHOS #### [facility] [address] [place] [address] Dr. Dk Mahoney Chloride [Moles/Vol] 107 mmol/L Normal 98-107 [facility] Comment on above: Performed By: #### M G, CMP, PHOS #### [facility] [address] [place] [address] Dr. kD Mahoney CO2 [Moles/Vol] 26.5 mmol/L Normal 21.0-32.0 [facility] Comment on above: Performed By: #### M G, CMP, PHOS #### [facility] [address] [place] [address] Dr. Dk Mahoney Creatinine [Mass/Vol] 3.76 mg/dL Critically high 0.70-1.30 [facility] Comment on above: Performed By: #### M G, CMP, PHOS #### [facility] [address] [address] [address] Dk Mahoney EGFR-AF FRENCH 19 mL/min/1.73m2 Critically low >=60 [facility] Comment on above: Performed By: #### M G, CMP, PHOS #### [facility] [address] [address] [address] Dk Mahoney EGFR-NON AF FRENCH 16 mL/min/1.73m2 Critically low >=60 [facility] Comment on above: Performed By: #### M G, CMP, PHOS #### [facility] [address] [address] [address] Dk Mahoney Glucose [Mass/Vol] 143 mg/dL Critically high 74-106 [facility] Comment on above: Performed By: #### M G, CMP, PHOS #### [facility] [address] [address] [address] Dk Mahoney Potassium [Moles/Vol] 4.8 mmol/L Normal 3.5-5.1 [facility] Comment on above: Performed By: #### M G, CMP, PHOS #### [facility] [address] [place] [address] Dr. Dk Mahoney Sodium [Moles/Vol] 141 mmol/L Normal 136-145 [facility] Comment on above: Performed By: #### M G, CMP, PHOS #### [facility] [address] [address] [address] Dk Mahoney Urea nitrogen [Mass/Vol] 47.0 mg/dL Critically high 7.0-18.0 [facility] Comment on above: Performed By: #### M Young, CMP, PHOS #### [facility] [address] [place] [address] Dr. Dk Mahoney Urea nitrogen/Creatinine [Mass ratio] 12.5 mg/mg Normal [facility] Comment on above: Performed By: #### M G, CMP, PHOS #### [facility] [address] [place] [address] Dr. Dk Mahoney US ROWAN DOP LEG BILon 10-24-2 022 ROWAN DOP LEG SERGIO US ROWAN DOP [...] MARQUES AMAYA Date: 2021-10-24 18:07 Normal [facility] Office Visit (Urology)on Follow-up visit [...] consent was requested and obtained from MATT HONEYCUTT on this date, 09/06/2020 03:30 PM , [...] Normal [facility] Microscopic UrinalysisOrdere d By: Barak Pro on 08-29-2020 - [employer] Work Phone: Amorphous, UA NOT REPORTED None [facility] Work Phone: Bacteria, UA 2+ Abnormal None [facility] Work Phone: Casts UA NOT REPORTED /LPF [facility] Work Phone: Crystals, UA NOT REPORTED None /HPF [facility] Work Phone: Epithelial Cells UA 2 TO 5 [facility] Work Phone: Interpretation and review of laboratory results Abnormal [facility] Work Phone: Mucus, UA NOT REPORTED None [facility] Work Phone: Other Observations UA NOT REPORTED NOT REQ. [facility] Work Phone: RBC, UA 50 TO 100 [facility] Work Phone: Renal Epithelial, UA NOT REPORTED 0 /HPF [facility] [employer] Work Phone: Trichomonas, UA NOT REPORTED None [facility] Work Phone: WBC, UA GREATER THAN 100 [facility] Work Phone: Yeast, UA NOT REPORTED None [facility] Work Phone: [facility] Work Phone: Urinalysis Reflex to Culture Ordered By: Barak Pro on 08-29-2020 Bilirubin Urine Negative NEGATIVE [facility] Work Phone: Color, UA YELLOW YELLOW [employer] Work Phone: Glucose, Ur Negative NEGATIVE [employer] Work Phone: Interpretation and review of laboratory results Abnormal [employer] Work Phone: Ketones Ql (U) Negative NEGATIVE [facility] Work Phone: Leukocyte esterase Test strip Ql (U) LARGE Abnormal NEGATIVE [employer] Work Phone: Nitrite, Urine Positive Abnormal NEGATIVE [employer] [facility] Work Phone: pH, UA 7.5 [facility] Work Phone: Protein, UA 1+ Abnormal NEGATIVE [employer] Work Phone: Specific [place], UA 1.010 [employer] Work Phone: Turbidity UA CLEAR CLEAR [employer] Work Phone: Urinalysis Comments NOT REPORTED [facility] [employer] Work Phone: Urine Hgb 3+ Abnormal NEGATIVE [employer] Work Phone: Urobilinogen, Urine Normal Normal [facility] Phone: [facility] Work Phone: Microscopic Urinalysison Amorphous, UA NOT REPORTED None [place] Bacteria, UA 2+ Abnormal None [place] Casts UA NOT REPORTED /LPF [place] Crystals, UA NOT REPORTED None /HPF [place] Epithelial Cells UA 2 TO 5 [place] Interpretation and review of laboratory results Abnormal [facility] [place] Mucus, UA NOT REPORTED None [place] Other Observations UA NOT REPORTED NOT REQ. [place] RBC (U) [#/Vol] 20 TO 50 [place] Renal Epithelial, UA NOT REPORTED 0 /HPF [facility] [place] Trichomonas, UA NOT REPORTED None [place] WBC, UA GREATER THAN 100 [place] Yeast, UA NOT REPORTED None [place] - [facility]- [place], [place] Urinalysison 02-03-2020 Bilirubin Urine Negative NEGATIVE [facility] [place] Color, UA YELLOW YELLOW [facility] Glucose, Ur Negative NEGATIVE [facility] [place] Interpretation and review of laboratory results Abnormal [facility] [place] Ketones Ql (U) Negative NEGATIVE [facility] [place] Leukocyte esterase Test strip Ql (U) LARGE Abnormal NEGATIVE [facility] [place] Nitrite, Urine Positive Abnormal NEGATIVE [facility] pH, UA 8.0 [facility] [place] Protein (U) [Mass/Vol] TRACE Abnormal NEGATIVE [facility] Specific [place], UA 1.015 [facility] [employer] Turbidity UA SLIGHTLY CLOUDY Abnormal CLEAR [facility] Urinalysis Comments NOT REPORTED [facility] [employer] Urine Hgb 3+ Abnormal NEGATIVE [facility], [place] Urobilinogen, Urine Normal Normal [facility], [place] Vital Signs Date Time Vital Sign Value Performing Clinician Facility 10-31-2023 14:56-0400 Body temperature 98.7 [degF] DO Barak Pro (Clinic) Work Phone: [facility] 10-31-2023 14:56-0400 Diastolic blood pressure 65 mm[Hg] DO Barak Pro ([facility]) Work Phone: [facility] 10-31-2023 14:56-0400 Heart rate 73 /min DO Barak Pro ([facility]) Work Phone: [facility] 10-31-2023 14:56-0400 Respiratory rate 20 /min DO Barak Pro ([facility]) Work Phone: [facility] 10-31-2023 14:56-0400 SaO2% (BldA) [Mass fraction] 95 % DO Barak Pro (Clinic) Work Phone: [facility] 10-31-2023 14:56-0400 Systolic blood pressure 111 mm[Hg] DO Barak Pro ([facility]) Work Phone: [facility] 10-31-2023 06:00-0400 Body weight 134.2 kg DO Barak Pro (Clinic) Work Phone: [facility] 10-28-2023 13:07-0400 Body height 182.88 cm DO Barak Pro ([facility]) Work Phone: [facility] 10-28-2023 11:56-0400 Inhaled oxygen flow rate 4 L/min DO Barak Morteza ([facility]) Work Phone: [facility] 10-08-2022 12:20-0400 Body height 180.34 cm Devaughn Khadijah Other [employer] Other 10-08-2022 12:20-0400 Body temperature 96.6 [degF] Devaughn Khadijah Other [facility] Other 10-08-2022 12:20-0400 Diastolic blood pressure 60 mm[Hg] Devaughn Khadijah Other [facility] Other 10-08-2022 12:20-0400 Respiratory rate 18 /min Devaughn Khdaijah Other [facility] Other 10-08-2022 12:20-0400 SaO2% (BldA) [Mass fraction] 100 % Devaughn Khadijah Other [facility] Other 10-08-2022 12:20-0400 Systolic blood pressure 121 mm[Hg] Devaughn Khadijah Other [employer] Other 10-01-2022 13:30-0400 Body height 180.34 cm Erik Sanderson Other [employer] Other 10-01-2022 13:30-0400 Body mass index (BMI) [Ratio] 42.12 kg/m2 Erik Sanderson Other [employer] Other 10-01-2022 13:30-0400 Body temperature 97.2 [degF] Erik Sanderson Other [employer] Other 10-01-2022 13:30-0400 Body weight 136.99 kg Erik Sanderson Other [employer] Other 10-01-2022 13:30-0400 Diastolic blood pressure 68 mm[Hg] Erik Sanderson Other [employer] Other 10-01-2022 13:30-0400 SaO2% (BldA) [Mass fraction] 97 % Erik Sanderson Other [employer] Other 10-01-2022 13:30-0400 Systolic blood pressure 138 mm[Hg] Erik Sanderson Other [employer] Other Encounters Encounter Date Encounter Type Care Provider Facility Start: 10-30-2023 Non-patient / Non-visit DO Barak Pro (Clinic) Work Phone: [facility] Work Phone: Start: 10-29-2023 Non-patient / Non-visit DO Barak Pro (Clinic) Work Phone: [facility] Work Phone: Start: 10-22-2023 Non-patient / Non-visit DO Barak Pro (Clinic) Work Phone: [facility] Work Phone: Start: 10-22-2023 End: 10-31-2023 Evaluation and management of inpatient [facility] Facility:[facility] Start: 10-20-2023 End: 10-20-2023 Telephone encounter Denise Epps MD Work Phone: [facility] Start: 01-17-2023 End: 01-18-2023 ambulatory BLANCA VARGAS [facility] Start: 10-21-2022 End: 10-21-2022 ambulatory Devaughn Khadijah Other [facility] Other Start: 10-21-2022 Telephone encounter Devaughn Khadijah [facility] Start: 10-18-2022 End: 10-18-2022 ambulatory Devaughn Khadijah Other [facility] Other Start: 10-18-2022 Telephone encounter Devaughn Khadijah [facility] Start: 10-08-2022 End: 10-08-2022 ambulatory Devaughn Khadijah Other [facility] Other Start: 10-08-2022 Office outpatient visit 15 minutes Devaughn Khadijah [facility] Start: 10-01-2022 End: 10-01-2022 ambulatory Erik Sanderson Other [facility] Other Start: 10-01-2022 Office outpatient visit 25 minutes Erik Sanderson [facility] Start: 08-31-2022 End: 09-01-2022 ambulatory ЕЛЕНА DAVIES Facility:[id number] Start: 07-05-2022 End: 07-07-[address] ERIK RHODES . Facility:[facility] Start: 05-04-2022 End: 05-04-2022 ambulatory ROBERTO HEBERT Facility:[facility] Start: 04-19-2022 End: 04-19-[address] ERIK RHODES . Facility:[facility] Start: 03-14-2022 End: 03-14-[address] BOOTH LISTED REQUEST Facility:[facility] Start: 10-24-2021 End: 10-24-2021 ambulatory KENDRA KEVIN . Facility:[facility] Start: 08-29-2020 End: 08-29-2020 Subsequent hospital visit by physician [facility] Start: 02-03-2020 End: 02-03-2020 Subsequent hospital visit by physician [facility] Procedures Date Procedure Procedure Detail Performing Clinician Start: 10-28-2023 Catheterization DO Karely Pro (Clinic) Work Phone: Start: 10-22-2023 Urine culture DO Barak Pro (Clinic) Work Phone: Start: 10-22-2023 Fluoroscopic guidance D O Barak Pro (Clinic) Work Phone: Start: 08-29-2020 Urinalysis microscopic only Barak Pro DO Work Phone: Start: 08-29-2020 Urnls dip stick/tabl et rgnt auto w/o microscopy Barak Pro DO Work Phone: Start: 02-03-2020 Urinalysis microscopic only Barak Kit [place] Work Phone: Start: 02-03-2020 Urnls dip stick/tabl et rgnt auto w/o microscopy Barak Pro Work Phone: Plan of Treatment Date Care Activity Detail Author Start: 01-13-2024 Influenza vaccination Influenza Vacc ine (#1) [facility] Start: 10-31-2023 [facility] Start: 10-29-2023 Referral to palliati ve care physician [facility] Start: 10-22-2023 [facility] Start: 10-22-2023 Referral to vascular surgeon [facility] Start: 10-22-2023 Referral to urologist [facility] Start: 10-22-2023 Hospital admission [facility] Start: 10-22-2023 Referral to synthetic filament extruder [facility] Start: 04-14-2023 Annual wellness visit Annual W ellness Visit (G0438) [facility] Start: 12-13-2022 COVID-19 Vaccine ( season) COVID-19 Vaccine ( season) [facility] Start: 12-13-2020 Influenza vaccination Flu vacc ine (Season Ended) [employer] Phone: Start: 04-30-2020 Creatinine measurement Creatinine mo [place]itoring [place] Start: 04-30-2020 Potassium monitoring Potassium monit oring [place] Start: 12-14-2019 Influenza vaccination Flu vaccine (# 1) [place] Start: 02-08-2019 Annual Wellness Visi t (AWV) Annual Wellness Visit (AWV) [place] Start: 09-11-2015 Pneumococcal 65+ yea rs Vaccine (1 of 1 - PPSV23) Pneumococcal 65+ years Vaccine (1 of 1 - PPSV23) [place] Start: 09-11-2015 Pneumococcal vaccination Pneumococcal Vaccine(s) (65+ yrs) (1 of 1 - PCV) [facility] Start: 2010 Hepatitis B (HBV) Vaccine (optional start 60+ years) Hepatitis B (HBV) Vaccine (optional start 60+ years) [facility] Start: 2010 RSV vaccine (optiona l 60+ years) RSV vaccine (optional 60+ years) [facility] Start: 2000 Screening for malign ant neoplasm of colon Colon cancer screen colonoscopy [place] Start: 2000 Shingles (RZV) Vacci ne (1 of 2) Shingles (RZV) Vaccine ([facility] of 2) [facility] Start: 2000 Shingles Vaccine (1 of 2) Shingles Vaccine (1 of 2) [place] Start: 09-11-1995 Screening for malign ant neoplasm of colon [facility] Start: 1985 [facility]id panel [facility] Start: 1969 DTaP/Tdap/Td vaccine (1 - Tdap) DTaP/Tdap/Td vaccine (1 - Tdap) [place] Start: 1969 Hepatitis A (HAV) Vaccine (optional start 19+ years) Hepatitis A (HAV) Vaccine (optional start 19+ years) [facility] Start: 1968 Hepatitis C screening Hepatitis C An tibody [facility] Start: 1968 Tetanus + diphtheria + acellular pertussis vaccine (product) Tdap Booster [facility] Start: 1962 COVID-19 Vaccine (1) COVID-19 Vaccin e (1) [facility] Work Phone: Start: 1960 Lipid panel Lipid screen [place], [place] Start: 1950 Hepatitis C screening Hepatitis C sc reen [place], [place] Start: 1950 Screening for malign ant neoplasm of colon Colonoscopy [facility] End: 02-03-2020 Culture, Urine Culture, Urine Microbiology Routine Once for 1 Occurrences starting 02/03/2020 until 02/03/2020 [place] Comment on above: Once for 1 Occurrenc es starting 02/03/2020 until 02/03/2020 Culture, Urine [place] End: 08-29-2020 Culture, Urine Culture, Urine Microbiology Routine Once for 1 Occurrences starting 08/29/2020 until 08/29/2020 [facility] Phone: Comment on above: Once for 1 Occurrenc es starting 08/29/2020 until 08/29/2020 Heparin induced platelet Ab [Presence] in Serum [facility] Patient Education How to Care fo r a Central Line Catheter Alternatives to a Central Line How to Prevent Central Line Infections Dialysis Catheter (DC) Know your Meds [facility] Work Phone: Patient referral [facility] Work Phone: [facility] Payers Date Payer Category Payer Self-pay 2023 Unknown [id number] 2022 Medicare [id number] 2022 Medicare [employer] [facility] MEDIC[facility] [id number] 2022-Present [address] [place] [address] Medicare [id number] 2020 Medicare [id number] 2019 Medicare [id number] 2019 Unknown [id number] 2014 Medicare [employer] MEDICARE [facility] RICK [id number] 2014-Present [address] [address] [place] [address] [id number] 1950 Unknown [id number] 1950 Unknown [id number] 1950 Unknown [id number] 1950 Unknown [id number] 1950 Unknown [id number] 1950 Unknown [id number] 1950 Unknown [id number] Medicare [id number] Unknown [id number] Social History Date Type Detail Facility Start: 02-05-2019 Tobacco smoking stat [email or web address] Unknown if ever smoked [employer] Work Phone: Start: 1950 Sex Assigned At Not on file [place] Sex Assigned At [facility] Other Start: 10-30-2023 Tobacco smoking stat [email or web address]IS Ex-smoker (finding) [facility] Start: 1950 Sex Assigned At Male [facility] Medical Equipment Procedure Code Equipment Code Equipment Origin al Text Equipment Identifier Dates Insertion, nephrostomy tube, with imaging guidance IR STENT URETERAL [id number] FDA Start: 06-10-2019 Insertion, catheter, dialysis, tunneled, with imaging guidance Double-lumen haemodialysis catheter, implantable [id number] FDA Start: 09-03-2022 Insertion, catheter, dialysis, tunneled, with imaging guidance Double-lumen haemodialysis catheter, implantable [id number] FDA Start: 10-28-2023 Goals Date Patient Goal Desired Activity /State Functional Status Date Assessment Result Facility 10-31-2023 Functional status Patient at Baseline [facility] Work Phone: Mental Status Date Assessment Result Facility 10-31-2023 Cognitive function Cognitive Sta tus Patient at Baseline [facility] Work Phone: Clinical Notes 10-01-2022 to 10-31-2023 Note Date & Type Note Facility 10-31-2023 Progress note Note Date/Time October 31, 2023 11:43am [facility] [address] [place] [address] Nephrology Progress Note Signed Patient: Matt Honeycutt MR#: [id number] : 1950 Acct:[id number] Age/Sex: 73 / M Adm Date: 4 Loc: Room: [address] [place] [address] Type: ADM IN Attending Dr: Krysta Singer MD Copies to: ~ Date of Service: 10/31/2023 Subjective Subjective Narrative: Mr. Honeycutt is a 73-year-old male with medical history of CKD stage 5 with serum creatinine between 5 and 6 mg/dL since 2022 related to obstructive uropathy, DM,HTN, hypothyroidism, CAD, paraplegia requiring chronic indwelling catheter. [facility] was [facility] by our service on August 2022 when he presented with SHAWN with creatinine 6 mg/dL in the setting of obstructive uropathy. He was started on hemodialysis with tunneled hemodialysiscatheter and then was referred to [facility] in [place] for nephrostomy. He presentedto [facility] on October 18 with progressive shortness of breath, weakness and lethargy and he was found to have SHAWN on top of CKD stage V with doubling of serum creatinine up to 10 mg/dL and BUN 193 mg/dL. Patient was supposed to be transferred to [facility] however there is no bed. He has been 31-hour at [facility] and subsequently he was transferred to [facility] for assessment and management. Lab today was reviewed showed BUN 192, creatinine 10.75. Patient has significant acidosis with carbon oxide 9.4. He has normal potassium. He has mild volume overload with lower extremity edema. Patient was awake and able to give history however he has mild confusion. He tried to call his daughter who was not able to. 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 All of a sudden he developed uremic symptoms. Patient and daughter agreed to proceed with dialysis. Interval history: Pt had an additional HD yesterday so he will be able to be discharged home today. He denies SOB. Able to eat and drink. He has tunneled HD catheter now Exam Physical Exam Vital Signs: Temp Pulse Resp BP Pulse Ox O2 Del Method O2 Flow Rate 36.4 C L 82 16 123/67 98 Room Air 4 10/31/23 08:00 10/31/23 08:00 10/31/23 08:00 10/31/23 08:00 10/31/23 08:14 10/31/23 08:14 10/28/23 11:56 Narrative: General: Sitting up in bed, looks comfortable with no complaints. HEENT: No jaundice, Moist mucous membranes. He has mild pallor. Cardiovascular: Distant heart sound, regular rate and rhythm, no murmur Respiratory: Diminished bilateral air entry, bilateral diffuse wheezing GI: Nondistended, nontender, no palpable masses or organs. Normal bowel sounds Extremities: 1+ edema, no cyanosis Neurological: Awake, alert, oriented x 3. Patient is bedridden with paraplegia. Psychiatric: Cooperative, normal mood and affect Objective Intake and Output I&O: Intake & Output 10/28/23 10/29/23 10/30/23 10/31/23 23:59 23:59 23:59 23:59 Intake Total 750 / 750 1100 / 1100 650 / 650 Output Total 350 / 350 2548 / 2548 1823 / 1823 100 / 100 Balance 400 / 400 -1448 / -1448 -1173 / -1173 -100 / -100 Weight 134.8 kg 134.2 kg Meds and Allergies Meds: Active Medications Acetaminophen (Acetaminophen 325 Mg Tablet) 650 mg PO Q6H PRN PRN Reason: Pain Scale 1 - 5 Stop: 10/21/24 22:12 Last Admin: 10/29/23 21:01 Dose: 650 mg Albuterol (Albuterol Hfa 60 Puff/8 Gram Inhaler) 2 puff INHALATION Q6H PRN PRN Reason: Shortness Of Breath Or Wheezing Stop: 10/22/24 13:41 Aspirin (Aspirin 81 Mg Tab.Chew) 81 mg PO DAILY [facility] Stop: 10/23/24 08:59 Last Admin: 10/31/23 08:38 Dose: 81 mg Atorvastatin Calcium (Atorvastatin 80 Mg Tablet) 80 mg PO DAILY [facility] Stop: 10/23/24 08:59 Last Admin: 10/31/23 08:38 Dose: 80 mg Docusate Sodium (Docusate 100 Mg Capsule) 100 mg PO BID [facility] Stop: 10/22/24 20:59 Last Admin: 10/31/23 08:38 Dose: 100 mg Ferrous Sulfate (Ferrous Sulfate 324 Mg Tablet.Dr) 324 mg PO DAILY [facility] Stop: 10/23/24 08:59 Last Admin: 10/31/23 08:39 Dose: 324 mg Finasteride (Finasteride 5 Mg Tablet) 5 mg PO DAILY [facility] Stop: 10/23/24 08:59 Last Admin: 10/31/23 08:42 Dose: 5 mg Fluticasone Propionate (Fluticasone Propionate 44 120 Puff/10.6 Gm Inhaler) 1 puff INHALATION BID [facility] Stop: 10/22/24 20:59 Last Admin: 10/31/23 08:13 Dose: 1 puff Furosemide (Furosemide 80 Mg Tablet) 80 mg PO BID@0800,1600 [facility] Stop: 10/23/24 15:59 Last Admin: 10/31/23 08:38 Dose: 80 mg Heparin Sodium (Porcine) (Heparin 5,000 Unit/Ml Vial) 5,000 unit SUBCUT Q8HR [facility] Stop: 10/21/24 05:59 Last Admin: 10/31/23 05:29 Dose: 5,000 unit Heparin Sodium (Porcine) (Heparin 10,000 Unit/10 Ml Vial) 1,000 unit IV PRN PRN PRN Reason: Dialysis Stop: 10/23/24 09:07 Last Admin: 10/27/23 15:41 Dose: 1,000 unit Heparin Sodium (Porcine) (Heparin-Lock 500 Unit/5 Ml Syringe) 500 unit IV-PUSH QSHIFT [facility] Stop: 10/27/24 13:59 Last Admin: 10/31/23 05:11 Dose: Not Given Heparin Sodium (Porcine) (Heparin 10,000 Unit/10 Ml Vial) 3,800 unit IV PRN PRN PRN Reason: Dialysis Stop: 10/22/24 11:29 Last Admin: 10/30/23 11:06 Dose: 3,800 unit Sodium Chloride (0.9% Sodium Chloride 1,000 Ml) 1,000 mls @ 0 mls/hr MISCELLANE.Q0M PRN PRN Reason: Dialysis Stop: 10/21/24 11:46 Last Infusion: 10/30/23 11:07 Dose: Infused Albumin Human (Albuminar-25) 25 gm in 100 mls @ 200 mls/hr IV PRN PRN PRN Reason: Dialysis Stop: 10/23/24 11:30 Last Infusion: 10/30/23 11:46 Dose: Infused Insulin Aspart (Insulin Aspart 300 Units/3 Ml Insuln.Pen) 0 units SUBCUT TID.WM.HS [facility]; Protocol Stop: 10/21/24 07:59 Last Admin: 10/31/23 08:39 Dose: Not Given Insulin Glargine (Insulin Glargine 300 Units/3 Ml Insuln.Pen) 12 units SUBCUT QHS [facility] Stop: 10/22/24 21:59 Last Admin: 10/30/23 22:27 Dose: 12 units Levothyroxine Sodium (Levothyroxine 75 Mcg Tablet) 75 mcg PO DAILY@0630 [facility] Stop: 10/23/24 06:29 Last Admin: 10/31/23 05:31 Dose: 75 mcg Lidocaine HCl (Lidocaine 1% 50 Ml Vial) 0.1 ml INTRADERMA PREOP PRN PRN Reason: Venipuncture x 1 Dose Loratadine (Loratadine 10 Mg Tablet) 10 mg PO Q48HR PRN PRN Reason: Allergy Symptoms Stop: 10/22/24 13:41 Magnesium Oxide (Magnesium Oxide 400 Mg Tablet) 400 mg PO DAILY [facility] Stop: 10/21/24 14:59 Last Admin: 10/31/23 08:38 Dose: 400 mg Metoprolol Succinate (Metoprolol Succinate 25 Mg Tab.Er.24h) 12.5 mg PO DAILY [facility] Stop: 10/21/24 14:59 Last Admin: 10/31/23 08:39 Dose: 12.5 mg Multi-Ingredient Cream (Lanolin Alcohol/Mo/W.Pet/[place] (Minerin) 454 Gm Jar) 1 applic TOPICAL DAILY [facility] Stop: 10/23/24 08:59 Last Admin: 10/31/23 08:40 Dose: Not Given Nitroglycerin (Nitroglycerin 0.4 Mg Tab.Subl) 0.4 mg SUBLINGUAL Q5M PRN PRN Reason: Chest Pain Stop: 10/22/24 13:41 Oxycodone HCl (Oxycodone Ir 5 Mg Tablet) 2.5 mg PO Q6HR PRN PRN Reason: Pain Pantoprazole Sodium (Pantoprazole 40 Mg Tablet.Dr) 40 mg PO DAILY [facility] Stop: 10/23/24 08:59 Last Admin: 10/31/23 08:39 Dose: 40 mg Polyethylene Glycol (Polyethylene Glycol 3350 17 Gm Powd.Pack) 17 gm PO BID [facility] Stop: 10/22/24 20:59 Last Admin: 10/31/23 08:39 Dose: 17 gm Simethicone (Simethicone 80 Mg Tab.Chew) 80 mg PO BID PRN PRN Reason: (Drug) Ingestion Stop: 10/22/24 13:41 Sodium Chloride (Sodium Chloride 0.9 % 10 Ml Syringe) 0 ml IV-PUSH PRN PRN PRN Reason: Flush Stop: 10/21/24 11:46 Last Admin: 10/30/23 11:06 Dose: 40 ml Sodium Chloride (Sodium Chloride 0.9 % 10 Ml Syringe) 0 ml IV-PUSH QSHIFT [facility] Stop: 10/27/24 13:59 Last Admin: 10/31/23 05:29 Dose: 10 ml Tolterodine Tartrate (Tolterodine 2 Mg Cap.Er.24h) 2 mg PO DAILY [facility] Stop: 10/23/24 08:59 Last Admin: 10/31/23 08:38 Dose: 2 mg Triamcinolone Acetonide (Triamcinolone 0.5% Cream 15 Gm Tube) 1 applic TOPICAL BID [facility] Stop: 10/22/24 20:59 Last Admin: 10/31/23 08:40 Dose: Not Given Venlafaxine HCl (Venlafaxine 37.5 Mg Tablet) 37.5 mg PO BID [facility] Stop: 10/22/24 20:59 Last Admin: 10/31/23 08:38 Dose: 37.5 mg Vitamin D (Cholecalciferol 25 Mcg (1,000 Units) Tablet) 50 mcg PO DAILY [facility] Stop: 10/23/24 08:59 Last Admin: 10/31/23 08:39 Dose: 50 mcg Zinc Oxide (Zinc Oxide 20% Ointment 56 Gm Tube) 1 applic TOPICAL BID [facility] Stop: 10/22/24 20:59 Last Admin: 10/31/23 08:40 Dose: Not Given Allergies penicillin G Allergy (Unknown, Verified 10/22/23 01:36) Nausea sulfamethoxazole [From Bactrim] Allergy (Unknown, Verified 10/22/23 01:36) Nausea trimethoprim [From Bactrim] Allergy (Unknown, Verified 10/22/23 01:36) Nausea Penicillins Allergy (Verified 10/22/23 01:36) Hives Results - Nephrology Labs 10/29/23 04:39 10/29/23 04:39 Radiology Impressions Impressions - last 24 hours: Any impression(s) listed above is documentation that was entered by the reading physician into a diagnostic report(s) for Matt Honeycutt. I have reviewedthe report(s) and am incorporating any findings in the treatment plan of this patient where applicable. A&P - Nephrology Assessment/Plan (1) ESRD (end stage renal disease): Plan: Patient has progressive CKD currently ESRD. Serum creatinine has been running between 5 and 6 mg/dL over the last year in the setting of obstructive uropathy currently with Wooten catheter. Patient has diabetes as well that contribute toprogression of CKD. He has uremic symptoms with severe metabolic acidosis requiring urgent dialysis (2) Anemia of renal disease: Plan: Patient has anemia with drop of hemoglobin during hospital stay. Ferritin was more than 1000. Patient has anemia in setting of chronic kidney disease and was just started on erythropoietin. (3) Uropathy, obstructive: Plan: He is known to have BPH and left renal hydronephrosis s/p nephrostomy 2021 (4) Metabolic acidosis: Plan: Patient has severe metabolic acidosis seems to be related to advanced CKD. Lactic acid was only 0.8 mmol/L. (5) Type 2 diabetes mellitus with diabetic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 Patient may not have any renal recovery since he has advanced CKD with creatinine has been around 6 mg/dL over the last 1 year Documented By: Norma Lopez MD 10/30/23 1100 Signed By: <Electronically signed by MD Norma Lopez> 10/30/23 [address] [facility] Work Phone: [phone] Progress note Author Norma Lopez [facility] October 29, 2023 1:19pm Note Date/Time October 29, 2023 1:19 pm [facility] [address] [place] [address] Nephrology Progress Note Signed Patient: Matt Honeycutt MR#: [id number] : 1950 Acct:[id number] Age/Sex: 73 / M Adm Date: 4 Loc: Room: [address] [place] [address] Type: ADM IN Attending Dr: Krysta Singer MD Copies to: ~ Date of Service: 10/29/2023 Subjective Subjective Narrative: Mr. Honeycutt is a 73-year-old male with medical history of CKD stage 5 with serum creatinine between 5 and 6 mg/dL since 2022 related to obstructive uropathy, DM,HTN, hypothyroidism, CAD, paraplegia requiring chronic indwelling catheter. Patient currently follow-up with [facility]. He was seen by our service on August 2022 when he presented with SHAWN with creatinine 6 mg/dL in the setting of obstructive uropathy. He was started on hemodialysis with tunneled hemodialysiscatheter and then was referred to [facility] in [place] for nephrostomy. He presentedto [facility] on October 18 with progressive shortness of breath, weakness and lethargy and he was found to have SHAWN on top of CKD stage V with doubling of serum creatinine up to 10 mg/dL and BUN 193 mg/dL. Patient was supposed to be transferred to [facility] however there is no bed. He has been 31-hour at [facility] ED and subsequently he was transferred to [facility] for assessment and management. Lab today was reviewed showed BUN 192, creatinine 10.75. Patient has significant acidosis with carbon oxide 9.4. He has normal potassium. He has mild volume overload with lower extremity edema. Patient was awake and able to give history however he has mild confusion. He tried to call his daughter who was not able to. 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 All of a sudden he developed uremic symptoms. Patient and daughter agreed to proceed with dialysis. Interval history: Patient still boarding in the ICU as there is no available bed outside. Patient had tunneled hemodialysis catheter inserted yesterday. He is waiting to be discharged home after dialysis today however show service still working with his dialysis unit about timing that is convenient for him. Patient need transportation and help to go to dialysis Patient has mild edema. No shortness of breath or chest pain. Blood pressure is stable however drops with ultrafiltration Exam Physical Exam Vital Signs: Temp Pulse Resp BP Pulse Ox O2 Del Method O2 Flow Rate 36.2 C L 64 18 116/49 L 95 Room Air 4 10/29/23 10:30 10/29/23 13:00 10/29/23 10:10/29/23 13:00 10/29/23 10:30 10/29/23 10:30 10/28/23 11:56 Narrative: General: Sitting up in bed, looks comfortable with no complaints. HEENT: No jaundice, Moist mucous membranes. He has mild pallor. Cardiovascular: Distant heart sound, regular rate and rhythm, no murmur Respiratory: Diminished bilateral air entry, bilateral diffuse wheezing GI: Nondistended, nontender, no palpable masses or organs. Normal bowel sounds Extremities: 1+ edema, no cyanosis Neurological: Awake, alert, oriented x 3. Patient is bedridden with paraplegia. Psychiatric: Cooperative, normal mood and affect Objective Intake and Output I&O: Intake & Output 10/26/23 10/27/23 10/28/23 10/29/23 23:59 23:59 23:59 23:59 Intake Total 500 / 500 1100 / 1100 750 / 750 600 / 600 Output Total 325 / 325 2130 / 2130 350 / 350 Balance 175 / 175 -1030 / -1030 400 / 400 600 / 600 Meds and Allergies Meds: Active Medications Acetaminophen (Acetaminophen 325 Mg Tablet) 650 mg PO Q6H PRN PRN Reason: Pain Scale 1 - 5 Stop: 10/21/24 22:12 Last Admin: 10/29/23 09:50 Dose: 650 mg Albuterol (Albuterol Hfa 60 Puff/8 Gram Inhaler) 2 puff INHALATION Q6H PRN PRN Reason: Shortness Of Breath Or Wheezing Stop: 10/22/24 13:41 Aspirin (Aspirin 81 Mg Tab.Chew) 81 mg PO DAILY [facility]FIN Stop: 10/23/24 08:59 Last Admin: 10/29/23 08:35 Dose: 81 mg Atorvastatin Calcium (Atorvastatin 80 Mg Tablet) 80 mg PO DAILY [facility] Stop: 10/23/24 08:59 Last Admin: 10/29/23 08:35 Dose: 80 mg Docusate Sodium (Docusate 100 Mg Capsule) 100 mg PO BID [facility] Stop: 10/22/24 20:59 Last Admin: 10/29/23 08:35 Dose: 100 mg Ferrous Sulfate (Ferrous Sulfate 324 Mg Tablet.Dr) 324 mg PO DAILY [facility] Stop: 10/23/24 08:59 Last Admin: 10/29/23 08:35 Dose: 324 mg Finasteride (Finasteride 5 Mg Tablet) 5 mg PO DAILY [facility] Stop: 10/23/24 08:59 Last Admin: 10/29/23 09:00 Dose: Not Given Fluticasone Propionate (Fluticasone Propionate 44 120 Puff/10.6 Gm Inhaler) 1 puff INHALATION BID [facility] Stop: 10/22/24 20:59 Last Admin: 10/29/23 08:47 Dose: 1 puff Furosemide (Furosemide 80 Mg Tablet) 80 mg PO BID@0800,1600 [facility] Stop: 10/23/24 15:59 Last Admin: 10/29/23 07:33 Dose: 80 mg Heparin Sodium (Porcine) (Heparin 5,000 Unit/Ml Vial) 5,000 unit SUBCUT Q8HR [facility] Stop: 10/21/24 05:59 Last Admin: 10/29/23 07:30 Dose: 5,000 unit Heparin Sodium (Porcine) (Heparin 10,000 Unit/10 Ml Vial) 1,000 unit IV PRN PRN PRN Reason: Dialysis Stop: 10/23/24 09:07 Last Admin: 10/27/23 15:41 Dose: 1,000 unit Heparin Sodium (Porcine) (Heparin-Lock 500 Unit/5 Ml Syringe) 500 unit IV-PUSH QSHIFT [facility] Stop: 10/27/24 13:59 Last Admin: 10/29/23 07:31 Dose: Not Given Heparin Sodium (Porcine) (Heparin 10,000 Unit/10 Ml Vial) 3,800 unit IV PRN PRN PRN Reason: Dialysis Stop: 10/22/24 11:29 Sodium Chloride (0.9% Sodium Chloride 1,000 Ml) 1,000 mls @ 0 mls/hr MISCELLANE.Q0M PRN PRN Reason: Dialysis Stop: 10/21/24 11:46 Last Infusion: 10/29/23 10:41 Dose: Infused Albumin Human (Albuminar-25) 25 gm in 100 mls @ 200 mls/hr IV PRN PRN PRN Reason: Dialysis Stop: 10/23/24 11:30 Last Infusion: 10/29/23 12:13 Dose: Infused Insulin Aspart (Insulin Aspart 300 Units/3 Ml Insuln.Pen) 0 units SUBCUT TID.WM.HS [facility]; Protocol Stop: 10/21/24 07:59 Last Admin: 10/29/23 07:33 Dose: Not Given Insulin Glargine (Insulin Glargine 300 Units/3 Ml Insuln.Pen) 12 units SUBCUT QHS [facility] Stop: 10/22/24 21:59 Last Admin: 10/28/23 21:17 Dose: 12 units Levothyroxine Sodium (Levothyroxine 75 Mcg Tablet) 75 mcg PO DAILY@0630 [facility] Stop: 10/23/24 06:29 Last Admin: 10/29/23 07:30 Dose: 75 mcg Lidocaine HCl (Lidocaine 1% 50 Ml Vial) 0.1 ml INTRADERMA PREOP PRN PRN Reason: Venipuncture x 1 Dose Loratadine (Loratadine 10 Mg Tablet) 10 mg PO Q48HR PRN PRN Reason: Allergy Symptoms Stop: 10/22/24 13:41 Magnesium Oxide (Magnesium Oxide 400 Mg Tablet) 400 mg PO DAILY [facility] Stop: 10/21/24 14:59 Last Admin: 10/29/23 08:35 Dose: 400 mg Metoprolol Succinate (Metoprolol Succinate 25 Mg Tab.Er.24h) 12.5 mg PO DAILY [facility] Stop: 10/21/24 14:59 Last Admin: 10/29/23 09:00 Dose: Not Given Multi-Ingredient Cream (Lanolin Alcohol/Mo/W.Pet/[place] (Minerin) 454 Gm Jar) 1 applic TOPICAL DAILY [facility] Stop: 10/23/24 08:59 Last Admin: 10/28/23 09:01 Dose: 1 applic Nitroglycerin (Nitroglycerin 0.4 Mg Tab.Subl) 0.4 mg SUBLINGUAL Q5M PRN PRN Reason: Chest Pain Stop: 10/22/24 13:41 Pantoprazole Sodium (Pantoprazole 40 Mg Tablet.Dr) 40 mg PO DAILY [facility] Stop: 10/23/24 08:59 Last Admin: 10/29/23 08:35 Dose: 40 mg Polyethylene Glycol (Polyethylene Glycol 3350 17 Gm Powd.Pack) 17 gm PO BID [facility] Stop: 10/22/24 20:59 Last Admin: 10/29/23 09:00 Dose: Not Given Simethicone (Simethicone 80 Mg Tab.Chew) 80 mg PO BID PRN PRN Reason: (Drug) Ingestion Stop: 10/22/24 13:41 Sodium Chloride (Sodium Chloride 0.9 % 10 Ml Syringe) 0 ml IV-PUSH PRN PRN PRN Reason: Flush Stop: 10/21/24 11:46 Last Admin: 10/29/23 10:40 Dose: 40 ml Sodium Chloride (Sodium Chloride 0.9 % 10 Ml Syringe) 0 ml IV-PUSH QSHIFT [facility] Stop: 10/27/24 13:59 Last Admin: 10/29/23 07:31 Dose: 10 ml Tolterodine Tartrate (Tolterodine 2 Mg Cap.Er.24h) 2 mg PO DAILY [facility] Stop: 10/23/24 08:59 Last Admin: 10/29/23 08:35 Dose: 2 mg Triamcinolone Acetonide (Triamcinolone 0.5% Cream 15 Gm Tube) 1 applic TOPICAL BID [facility] Stop: 10/22/24 20:59 Last Admin: 10/28/23 21:13 Dose: 1 applic Venlafaxine HCl (Venlafaxine 37.5 Mg Tablet) 37.5 mg PO BID [facility] Stop: 10/22/24 20:59 Last Admin: 10/29/23 08:35 Dose: 37.5 mg Vitamin D (Cholecalciferol 25 Mcg (1,000 Units) Tablet) 50 mcg PO DAILY [facility] Stop: 10/23/24 08:59 Last Admin: 10/29/23 08:35 Dose: 50 mcg Zinc Oxide (Zinc Oxide 20% Ointment 56 Gm Tube) 1 applic TOPICAL BID [facility] Stop: 10/22/24 20:59 Last Admin: 10/28/23 21:13 Dose: 1 applic Allergies penicillin G Allergy (Unknown, Verified 10/22/23 01:36) Nausea sulfamethoxazole [From Bactrim] Allergy (Unknown, Verified 10/22/23 01:36) Nausea trimethoprim [From Bactrim] Allergy (Unknown, Verified 10/22/23 01:36) Nausea Penicillins Allergy (Verified 10/22/23 01:36) Hives Results - Nephrology Labs 10/29/23 04:39 10/29/23 04:39 Labs: 10/29/23 04:39 BUN 74 H Creatinine 6.00 H D Radiology Impressions Impressions - last 24 hours: Any impression(s) listed above is documentation that was entered by the reading physician into a diagnostic report(s) for Matt Honeycutt. I have reviewedthe report(s) and am incorporating any findings in the treatment plan of this patient where applicable. A&P - Nephrology Assessment/Plan (1) ESRD (end stage renal disease): Plan: Patient has progressive CKD currently ESRD. Serum creatinine has been running between 5 and 6 mg/dL over the last year in the setting of obstructive uropathy currently with Wooten catheter. Patient has diabetes as well that contribute toprogression of CKD. He has uremic symptoms with severe metabolic acidosis requiring urgent dialysis (2) Anemia of renal disease: Plan: Patient has anemia with drop of hemoglobin during hospital stay. Ferritin was more than 1000. Patient has anemia in setting of chronic kidney disease and was just started on erythropoietin. (3) Uropathy, obstructive: Plan: He is known to have BPH and left renal hydronephrosis s/p nephrostomy 2021 (4) Metabolic acidosis: Plan: Patient has severe metabolic acidosis seems to be related to advanced CKD. Lactic acid was only 0.8 mmol/L. (5) Type 2 diabetes mellitus with diabetic chronic kidney disease: Plan: Patient has longstanding history of diabetes with diabetic complications. (6) Volume overload: Plan: Bilateral lower extremity edema shortness of breath with volume overload in the setting of CKD (7) Hyperparathyroidism, secondary renal: Plan: Patient has hyperphosphatemia and elevated intact PTH 498 pg/mL in the setting of advanced CKD. (8) Ventricular tachycardia: Plan: Patient had ventricular tachycardia in the setting of severe acidosis and uremia. He was on amiodarone drip that was stopped by cardiology. Patient on metoprolol. Echocardiogram The left ventricular size, thickness and function are normal Ejection Fraction = 60-65%. Apical aneurysm with dyskinesia is noted No left ventricular thrombus or mass is seen. There is left ventricular diastolic dysfunction. There is no prior echocardiogram noted for this patient. Plan * Hemodialysis today for 210 minutes, 3K bath. 3 L ultrafiltration as tolerated. * Platelet count has dropped down to 66,000 since admission. Will hold heparin and check heparin-induced antibodies * Patient has anemia in the setting of chronic kidney disease. Ferritin was more than 1000. Continue Aranesp 40 mcg weekly to be adjusted to keep hemoglobin between 9 and 11 g/dL. * Continue calcium acetate 1300 mg with each meal for hyperphosphatemia * Continue calcitriol 0.25 mcg 3 times a week for secondary Hyperparathyroidism * Outpatient is being arranged at [facility] dialysis unit considering his [facility] insurance. Patient will be ready to be discharged after securing outpatient dialysis unit time that is convenient for the patient. Urology was consulted for persistent hydronephrosis and bilateral ureteral stents, urology recommended to transfer to tertiary care center considering his comorbidities that can be done as outpatient. Patient may not have any renal recovery since he has advanced CKD with creatinine has been around 6 mg/dL over the last 1 year Documented By: Norma Lopez MD 10/29/23 [id number] Signed By: <Electronically signed by MD Norma Lopez> 10/29/23 [address] [facility] Work Phone: [phone] Progress note Author Krysta Singer [facility] October 29, 2023 11:48am Note Date/Time October 29, 2023 11:4 8am [facility] [address] [place] [address] Hospitalist Progress Note Signed Patient: Matt Honeycutt MR#: [id number] : 1950 Acct:[id number] Age/Sex: 73 / M Adm Date: 4 Loc: Room: 7L0196-7 Type: ADM IN Attending Dr: Krysta Singer MD Copies to: ~ Date of Service: 10/29/2023 Subjective Subjective Narrative: Patient examined at bedside with no overnight event. He is coming of pain at the site of tunneled dialysis catheter on right chest and neck area. Yesterday he underwent placement of tunneled dialysis catheter to right IJ and removal of temporary dialysis catheter in right groin. He denies generalized weakness, chest pain or shortness of breath. He has chronic indwelling Wooten catheter. Exam Physical Exam Vital Signs: Temp Pulse Resp BP Pulse Ox O2 Del Method O2 Flow Rate 97.1 F L 72 18 98/50 L 95 Room Air 4 10/29/23 10:30 10/29/23 11:00 10/29/23 10:30 10/29/23 11:00 10/29/23 10:30 10/29/23 10:30 10/28/23 11:56 Const Orientation: alert, awake and oriented x3 Other: Answering appropriately but does appear slightly drowsy while talking. Resp Effort & Inspection: normal respiratory effort and able to speak in complete sentences Auscultation: diminished lung sounds (Due to body habitus on basis) bilaterally,no rales, no rhonchi and no wheezes Cardio Rate: regular rate Rhythm: regular rhythm Heart Sounds: S1 normal and S2 normal GI Palpation: soft, not firm, no guarding and nontender Neuro General: patient alert, patient awake, patient oriented x3, moves all extremities and CN's II-XI intact bilaterally Extrem General: no calf tenderness bilaterally and edema Laterality: bilaterally Severity: 2+ Objective Lab Results 10/29/23 04:39 10/29/23 04:39 Meds Allergies and Active Meds Allergies penicillin G Allergy (Unknown, Verified 10/22/23 01:36) Nausea sulfamethoxazole [From Bactrim] Allergy (Unknown, Verified 10/22/23 01:36) Nausea trimethoprim [From Bactrim] Allergy (Unknown, Verified 10/22/23 01:36) Nausea Penicillins Allergy (Verified 10/22/23 01:36) Hives Active Meds: Active Medications Generic Name Dose Route Start Last Admin Trade Name Freq PRN Reason Stop Dose Admin Acetaminophen 650 mg 10/22/23 22:13 10/29/23 09:50 Acetaminophen 325 Mg Tablet PO 10/21/24 22:12 650 mg Q6H PRN Administration Pain Scale 1 - 5 Albuterol 2 puff 10/23/23 13:42 Albuterol Hfa 60 Puff/8 Gram Inhaler INHALATION 10/22/24 13:41 Q6H PRN Shortness Of Breath Or Wheezing Aspirin 81 mg 10/24/23 09:00 10/29/23 08:35 Aspirin 81 Mg Tab.Chew PO 10/23/24 08:59 81 mg DAILY DELFIN Administration Atorvastatin Calcium 80 mg 10/24/23 09:00 10/29/23 08:35 Atorvastatin 80 Mg Tablet PO 10/23/24 08:59 80 mg DAILY DELFIN Administration Docusate Sodium 100 mg 10/23/23 21:00 10/29/23 08:35 Docusate 100 Mg Capsule PO 10/22/24 20:59 100 mg BID DELFIN Administration Ferrous Sulfate 324 mg 10/24/23 09:00 10/29/23 08:35 Ferrous Sulfate 324 Mg Tablet. PO 10/23/24 08:59 324 mg DAILY DELFIN Administration Finasteride 5 mg 10/24/23 09:00 10/28/23 09:00 Finasteride 5 Mg Tablet PO 10/23/24 08:59 5 mg DAILY DELFIN Administration Fluticasone Propionate 1 puff 10/23/23 21:00 10/29/23 08:47 Fluticasone Propionate 44 120 Puff/10.6 Gm Inhaler INHALATION 10/22/24 20:59 1 puff BID DELFIN Administration Furosemide 80 mg 10/24/23 16:00 10/29/23 07:33 Furosemide 80 Mg Tablet PO 10/23/24 15:59 80 mg BID@0800,1600 DELFIN Administration Heparin Sodium (Porcine) 5,000 unit 10/22/23 06:00 10/29/23 07:30 Heparin 5,000 Unit/Ml Vial SUBCUT 10/21/24 05:59 5,000 unit Q8HR DELFIN Administration Heparin Sodium (Porcine) 1,000 unit 10/24/23 09:08 10/27/23 15:41 Heparin 10,000 Unit/10 Ml Vial IV 10/23/24 09:07 1,000 unit PRN PRN Administration Dialysis Heparin Sodium (Porcine) 500 unit 10/28/23 14:00 10/29/23 07:31 Heparin-Lock 500 Unit/5 Ml Syringe IV-PUSH 10/27/24 13:59 Not Given QSHIFT DELFIN Heparin Sodium (Porcine) 3,800 unit 10/29/23 10:44 Heparin 10,000 Unit/10 Ml Vial IV 10/22/24 11:29 PRN PRN Dialysis Sodium Chloride 1,000 mls @ 0 mls/hr 10/22/23 11:47 10/29/23 10:41 0.9% Sodium Chloride 1,000 Ml MISCELLANE 10/21/24 11:46 Infused .Q0M PRN Infusion Dialysis As Directed Albumin Human 25 gm in 100 mls @ 200 mls/hr 10/24/23 11:31 10/27/23 15:39 Albuminar-25 IV 10/23/24 11:30 200 mls/hr PRN PRN Administration Dialysis Insulin Aspart 0 units 10/22/23 08:00 10/29/23 07:33 Insulin Aspart 300 Units/3 Ml Insuln.Pen SUBCUT 10/21/24 07:59 Not Given TID.WM.HS [facility] Protocol Insulin Glargine 12 units 10/23/23 22:00 10/28/23 21:17 Insulin Glargine 300 Units/3 Ml Insuln.Pen SUBCUT 10/22/24 21:59 12 units QHS DELFIN Administration Levothyroxine Sodium 75 mcg 10/24/23 06:30 10/29/23 07:30 Levothyroxine 75 Mcg Tablet PO 10/23/24 06:29 75 mcg DAILY@0630 DELFIN Administration Lidocaine HCl 0.1 ml 10/22/23 10:44 Lidocaine 1% 50 Ml Vial INTRADERMA PREOP PRN Venipuncture x 1 Dose Loratadine 10 mg 10/23/23 13:42 Loratadine 10 Mg Tablet PO 10/22/24 13:41 Q48HR PRN Allergy Symptoms Magnesium Oxide 400 mg 10/22/23 15:00 10/29/23 08:35 Magnesium Oxide 400 Mg Tablet PO 10/21/24 14:59 400 mg DAILY DELFIN Administration Metoprolol Succinate 12.5 mg 10/22/23 15:00 10/28/23 09:00 Metoprolol Succinate 25 Mg Tab.Er.24h PO 10/21/24 14:59 12.5 mg DAILY DELFIN Administration Multi-Ingredient Cream 1 applic 10/24/23 09:00 10/28/23 09:01 Lanolin Alcohol/Mo/W.Pet/[place] (Minerin) 454 Gm Jar TOPICAL 10/23/24 08:59 1 applic DAILY DELFIN Administration Nitroglycerin 0.4 mg 10/23/23 13:42 Nitroglycerin 0.4 Mg Tab.Subl SUBLINGUAL 10/22/24 13:41 Q5M PRN Chest Pain Pantoprazole Sodium 40 mg 10/24/23 09:00 10/29/23 08:35 Pantoprazole 40 Mg Tablet.Dr PO 10/23/24 08:59 40 mg DAILY DELFIN Administration Polyethylene Glycol 17 gm 10/23/23 21:00 10/28/23 21:13 Polyethylene Glycol 3350 17 Gm Powd.Pack PO 10/22/24 20:59 17 gm BID DELFIN Administration Simethicone 80 mg 10/23/23 13:42 Simethicone 80 Mg Tab.Chew PO 10/22/24 13:41 BID PRN (Drug) Ingestion Sodium Chloride 0 ml 10/22/23 11:47 10/29/23 10:40 Sodium Chloride 0.9 % 10 Ml Syringe IV-PUSH 10/21/24 11:46 40 ml PRN PRN Administration Flush Sodium Chloride 0 ml 10/28/23 14:00 10/29/23 07:31 Sodium Chloride 0.9 % 10 Ml Syringe IV-PUSH 10/27/24 13:59 10 ml QSHIFT DELFIN Administration Tolterodine Tartrate 2 mg 10/24/23 09:00 10/29/23 08:35 Tolterodine 2 Mg Cap.Er.24h PO 10/23/24 08:59 2 mg DAILY DELFIN Administration Triamcinolone Acetonide 1 applic 10/23/23 21:00 10/28/23 21:13 Triamcinolone 0.5% Cream 15 Gm Tube TOPICAL 10/22/24 20:59 1 applic BID DELFIN Administration Venlafaxine HCl 37.5 mg 10/23/23 21:00 10/29/23 08:35 Venlafaxine 37.5 Mg Tablet PO 10/22/24 20:59 37.5 mg BID DELFIN Administration Vitamin D 50 mcg 10/24/23 09:00 10/29/23 08:35 Cholecalciferol 25 Mcg (1,000 Units) Tablet PO 10/23/24 08:59 50 mcg DAILY DELFIN Administration Zinc Oxide 1 applic 10/23/23 21:00 10/28/23 21:13 Zinc Oxide 20% Ointment 56 Gm Tube TOPICAL 10/22/24 20:59 1 applic BID DELFIN Administration A&P - Hospitalist Assessment/Plan (1) Acute on chronic renal failure: (2) Hypertension: (3) CHF (congestive heart failure): (4) Hypothyroid: (5) Depression: (6) PTSD (post-traumatic stress disorder): (7) BPH (benign prostatic hyperplasia): (8) Morbid obesity: Plan Anasarca Volume overload Acute diastolic heart failure Acute on Chronic renal failure/ now ESRD End-stage renal disease Patient seen by nephrology and cardiology services. Patient underwent tunneled dialysis catheter with removal of temporary catheter yesterday. Currently awaiting arrangement for hemodialysis and can be discharged once arranged. VT arrhythmias: Off amiodarone infusion/ Cardiology is following No further episode of ventricular tachycardia. Cardiology did not recommend antiarrhythmic is likely triggered by acute kidney injury. No further episode noted. Urine culture growing Elizabeth Discontinue fluconazole as it does not require treatment. Diabetes mellitus type 2 Blood glucose well-controlled and continue basal insulin with sliding scale coverage. Obesity class I: Life style modification HPL: Lipitor daily Hypertension Blood pressure has been well-controlled continue low-dose beta-zayda. Thrombocytopenia Patient does have history of chronic thrombocytopenia. Continue to monitor. Right hydronephrosis/nephrolithiasis Seen by urology with recommendation for outpatient follow-up at tertiary care facility given his multiple comorbidities. He does have chronic indwelling Wooten catheter. Acute on chronic anemia No signs of active bleeding. Continue to monitor. No signs of active bleeding. Consult PT/OT. Documented By: Krysta Singer MD 10/29/23 1145 Signed By: <Electronically signed by Krysta Singer MD> 10/29/23 1148 [facility] Work Phone: [phone] Progress [facility] October 28, 2023 1:34pm Note Date/Time October 28, 2023 1:34 pm [facility] [address] [place] [address] Nephrology Progress Note Signed Patient: Matt Honeycutt MR#: [id number] : 1950 Acct:[id number] Age/Sex: 73 / M Adm Date: 4 Loc: Room: [address] [place] [address] Type: ADM IN Attending Dr: Krysta Singer MD Copies to: ~ Date of Service: 10/28/2023 Subjective Subjective Narrative: Mr. Honeycutt is a 73-year-old male with medical history of CKD stage 5 with serum creatinine between 5 and 6 mg/dL since 2022 related to obstructive uropathy, DM,HTN, hypothyroidism, CAD, paraplegia requiring chronic indwelling catheter. Patient currently follow-up with [facility]. He was seen by our service on August 2022 when he presented with SHAWN with creatinine 6 mg/dL in the setting of obstructive uropathy. He was started on hemodialysis with tunneled hemodialysiscatheter and then was referred to [facility] in [place] for nephrostomy. He presentedto [facility] on October 18 with progressive shortness of breath, weakness and lethargy and he was found to have SHAWN on top of CKD stage V with doubling of serum creatinine up to 10 mg/dL and BUN 193 mg/dL. Patient was supposed to be transferred to [facility] however there is no bed. He has been 31-hour at [facility] ED and subsequently he was transferred to [facility] for assessment and management. Lab today was reviewed showed BUN 192, creatinine 10.75. Patient has significant acidosis with carbon oxide 9.4. He has normal potassium. He has mild volume overload with lower extremity edema. Patient was awake and able to give history however he has mild confusion. He tried to call his daughter who was not able to. 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 All of a sudden he developed uremic symptoms. Patient and daughter agreed to proceed with dialysis. Interval history: Patient still boarding in the ICU as there is no available bed outside. He had hemodialysis through right femoral hemodialysis catheter. He is scheduled to have tunneled hemodialysis catheter today in preparation for discharge. Patient is eager to go home. He lives with his family. Monitor showed sinus rhythm with no more V. tach's. Exam Physical Exam Vital Signs: Temp Pulse Resp BP Pulse Ox O2 Del Method O2 Flow Rate 36.5 C 77 18 122/59 L 100 Nasal Cannula 4 10/28/23 07:42 10/28/23 11:56 10/28/23 11:56 10/28/23 11:56 10/28/23 11:56 10/28/23 11:56 10/28/23 11:56 Narrative: General: Sitting up in bed, looks comfortable with no complaints. HEENT: Atraumatic, normocephalic. No jaundice, Moist mucous membranes. He has mild pallor. Cardiovascular: Distant heart sound, regular rate and rhythm, no murmur Respiratory: Diminished bilateral air entry, bilateral diffuse wheezing GI: Nondistended, nontender, no palpable masses or organs. Normal bowel sounds Extremities: 1+ edema, no cyanosis Neurological: Awake, alert, oriented x 3. Patient is bedridden with paraplegia. Psychiatric: Cooperative, normal mood and affect Objective Intake and Output I&O: Intake & Output 10/25/23 10/26/23 10/27/23 10/28/23 23:59 23:59 23:59 23:59 Intake Total 1760 / 1760 500 / 500 1100 / 1100 250 / 250 Output Total 325 / 325 325 / 325 2130 / 2130 150 / 150 Balance 1435 / 1435 175 / 175 -1030 / -1030 100 / 100 Meds and Allergies Meds: Active Medications Acetaminophen (Acetaminophen 325 Mg Tablet) 650 mg PO Q6H PRN PRN Reason: Pain Scale 1 - 5 Stop: 10/21/24 22:12 Last Admin: 10/27/23 16:26 Dose: 650 mg Albuterol (Albuterol Hfa 60 Puff/8 Gram Inhaler) 2 puff INHALATION Q6H PRN PRN Reason: Shortness Of Breath Or Wheezing Stop: 10/22/24 13:41 Aspirin (Aspirin 81 Mg Tab.Chew) 81 mg PO DAILY [facility] Stop: 10/23/24 08:59 Last Admin: 10/28/23 09:00 Dose: 81 mg Atorvastatin Calcium (Atorvastatin 80 Mg Tablet) 80 mg PO DAILY [facility] Stop: 10/23/24 08:59 Last Admin: 10/28/23 09:00 Dose: 80 mg Docusate Sodium (Docusate 100 Mg Capsule) 100 mg PO BID [facility] Stop: 10/22/24 20:59 Last Admin: 10/28/23 09:00 Dose: 100 mg Ferrous Sulfate (Ferrous Sulfate 324 Mg Tablet.Dr) 324 mg PO DAILY [facility] Stop: 10/23/24 08:59 Last Admin: 10/28/23 09:00 Dose: 324 mg Finasteride (Finasteride 5 Mg Tablet) 5 mg PO DAILY [facility] Stop: 10/23/24 08:59 Last Admin: 10/28/23 09:00 Dose: 5 mg Fluticasone Propionate (Fluticasone Propionate 44 120 Puff/10.6 Gm Inhaler) 1 puff INHALATION BID [facility] Stop: 10/22/24 20:59 Last Admin: 07/16/24 09:46 Dose: 1 puff Furosemide (Furosemide 80 Mg Tablet) 80 mg PO BID@0800,1600 [facility] Stop: 10/23/24 15:59 Last Admin: 10/28/23 09:00 Dose: 80 mg Heparin Sodium (Porcine) (Heparin 5,000 Unit/Ml Vial) 5,000 unit SUBCUT Q8HR DELFIN Stop: 10/21/24 05:59 Last Admin: 10/28/23 05:11 Dose: 5,000 unit Heparin Sodium (Porcine) (Heparin 10,000 Unit/10 Ml Vial) 2,000 unit IV PRN PRN PRN Reason: Dialysis Stop: 10/21/24 11:46 Last Admin: 10/27/23 15:41 Dose: 2,000 unit Heparin Sodium (Porcine) (Heparin 10,000 Unit/10 Ml Vial) 2,600 unit IV PRN PRN PRN Reason: Dialysis Stop: 10/22/24 11:29 Last Admin: 10/27/23 15:41 Dose: 2,600 unit Heparin Sodium (Porcine) (Heparin 10,000 Unit/10 Ml Vial) 2,000 unit IV PRN PRN PRN Reason: Dialysis Stop: 10/23/24 09:07 Heparin Sodium (Porcine) (Heparin 10,000 Unit/10 Ml Vial) 1,000 unit IV PRN PRN PRN Reason: Dialysis Stop: 10/23/24 09:07 Last Admin: 10/27/23 15:41 Dose: 1,000 unit Heparin Sodium (Porcine) (Heparin-Lock 500 Unit/5 Ml Syringe) 500 unit IV-PUSH QSHIFT [facility] Stop: 10/27/24 13:59 Sodium Chloride (0.9% Sodium Chloride 1,000 Ml) 1,000 mls @ 0 mls/hr MISCELLANE.Q0M PRN PRN Reason: Dialysis Stop: 10/21/24 11:46 Last Infusion: 10/27/23 15:54 Dose: Infused Albumin Human (Albuminar-25) 25 gm in 100 mls @ 200 mls/hr IV PRN PRN PRN Reason: Dialysis Stop: 10/23/24 11:30 Last Admin: 10/27/23 15:39 Dose: 200 mls/hr Insulin Aspart (Insulin Aspart 300 Units/3 Ml Insuln.Pen) 0 units SUBCUT TID.WM.HS [facility]; Protocol Stop: 10/21/24 07:59 Last Admin: 10/28/23 09:08 Dose: Not Given Insulin Glargine (Insulin Glargine 300 Units/3 Ml Insuln.Pen) 12 units SUBCUT QHS [facility] Stop: 10/22/24 21:59 Last Admin: 10/27/23 21:07 Dose: 12 units Levothyroxine Sodium (Levothyroxine 75 Mcg Tablet) 75 mcg PO DAILY@0630 DELFIN Stop: 10/23/24 06:29 Last Admin: 10/28/23 05:41 Dose: Not Given Lidocaine HCl (Lidocaine 1% 50 Ml Vial) 0.1 ml INTRADERMA PREOP PRN PRN Reason: Venipuncture x 1 Dose Loratadine (Loratadine 10 Mg Tablet) 10 mg PO Q48HR PRN PRN Reason: Allergy Symptoms Stop: 10/22/24 13:41 Magnesium Oxide (Magnesium Oxide 400 Mg Tablet) 400 mg PO DAILY [facility] Stop: 10/21/24 14:59 Last Admin: 10/28/23 09:00 Dose: 400 mg Metoprolol Succinate (Metoprolol Succinate 25 Mg Tab.Er.24h) 12.5 mg PO DAILY [facility] Stop: 10/21/24 14:59 Last Admin: 10/28/23 09:00 Dose: 12.5 mg Multi-Ingredient Cream (Lanolin Alcohol/Mo/W.Pet/[place] (Minerin) 454 Gm Jar) 1 applic TOPICAL DAILY [facility] Stop: 10/23/24 08:59 Last Admin: 10/28/23 09:01 Dose: 1 applic Nitroglycerin (Nitroglycerin 0.4 Mg Tab.Subl) 0.4 mg SUBLINGUAL Q5M PRN PRN Reason: Chest Pain Stop: 10/22/24 13:41 Pantoprazole Sodium (Pantoprazole 40 Mg Tablet.Dr) 40 mg PO DAILY [facility] Stop: 10/23/24 08:59 Last Admin: 10/28/23 09:01 Dose: 40 mg Polyethylene Glycol (Polyethylene Glycol 3350 17 Gm Powd.Pack) 17 gm PO BID [facility] Stop: 10/22/24 20:59 Last Admin: 10/28/23 09:01 Dose: 17 gm Simethicone (Simethicone 80 Mg Tab.Chew) 80 mg PO BID PRN PRN Reason: (Drug) Ingestion Stop: 10/22/24 13:41 Sodium Chloride (Sodium Chloride 0.9 % 10 Ml Syringe) 0 ml IV-PUSH PRN PRN PRN Reason: Flush Stop: 10/21/24 11:46 Last Admin: 10/27/23 15:40 Dose: 40 ml Sodium Chloride (Sodium Chloride 0.9 % 10 Ml Syringe) 0 ml IV-PUSH QSHIFT DELFIN Stop: 10/27/24 13:59 Tolterodine Tartrate (Tolterodine 2 Mg Cap.Er.24h) 2 mg PO DAILY [facility] Stop: 10/23/24 08:59 Last Admin: 10/28/23 09:00 Dose: 2 mg Triamcinolone Acetonide (Triamcinolone 0.5% Cream 15 Gm Tube) 1 applic TOPICAL BID [facility] Stop: 10/22/24 20:59 Last Admin: 10/28/23 09:01 Dose: 1 applic Venlafaxine HCl (Venlafaxine 37.5 Mg Tablet) 37.5 mg PO BID [facility] Stop: 10/22/24 20:59 Last Admin: 10/28/23 09:00 Dose: 37.5 mg Vitamin D (Cholecalciferol 25 Mcg (1,000 Units) Tablet) 50 mcg PO DAILY [facility] Stop: 10/23/24 08:59 Last Admin: 10/28/23 12:52 Dose: Not Given Zinc Oxide (Zinc Oxide 20% Ointment 56 Gm Tube) 1 applic TOPICAL BID [facility] Stop: 10/22/24 20:59 Last Admin: 10/28/23 09:01 Dose: 1 applic Allergies penicillin G Allergy (Unknown, Verified 10/22/23 01:36) Nausea sulfamethoxazole [From Bactrim] Allergy (Unknown, Verified 10/22/23 01:36) Nausea trimethoprim [From Bactrim] Allergy (Unknown, Verified 10/22/23 01:36) Nausea Penicillins Allergy (Verified 10/22/23 01:36) Hives Results - Nephrology Labs 10/28/23 04:30 10/28/23 04:30 Labs: 10/28/23 04:30 BUN 61 H Creatinine 4.64 H D Radiology Impressions Impressions - last 24 hours: Any impression(s) listed above is documentation that was entered by the reading physician into a diagnostic report(s) for Matt Honeycutt. I have reviewedthe report(s) and am incorporating any findings in the treatment plan of this patient where applicable. A&P - Nephrology Assessment/Plan (1) ESRD (end stage renal disease): Plan: Patient has progressive CKD currently ESRD. Serum creatinine has been running between 5 and 6 mg/dL over the last year in the setting of obstructive uropathy currently with Wooten catheter. Patient has diabetes as well that contribute toprogression of CKD. He has uremic symptoms with severe metabolic acidosis requiring urgent dialysis (2) Anemia of renal disease: Plan: Patient has anemia with drop of hemoglobin during hospital stay. Ferritin was more than 1000. Patient has anemia in setting of chronic kidney disease and was just started on erythropoietin. (3) Uropathy, obstructive: Plan: He is known to have BPH and left renal hydronephrosis s/p nephrostomy 2021 (4) Metabolic acidosis: Plan: Patient has severe metabolic acidosis seems to be related to advanced CKD. Lactic acid was only 0.8 mmol/L. (5) Type 2 diabetes mellitus with diabetic chronic kidney disease: Plan: Patient has longstanding history of diabetes with diabetic complications. (6) Volume overload: Plan: Bilateral lower extremity edema shortness of breath with volume overload in the setting of CKD (7) Hyperparathyroidism, secondary renal: Plan: Patient has hyperphosphatemia and elevated intact PTH 498 pg/mL in the setting of advanced CKD. (8) Ventricular tachycardia: Plan: Patient had ventricular tachycardia in the setting of severe acidosis and uremia. He was on amiodarone drip that was stopped by cardiology. Patient on metoprolol. Echocardiogram The left ventricular size, thickness and function are normal Ejection Fraction = 60-65%. Apical aneurysm with dyskinesia is noted No left ventricular thrombus or mass is seen. There is left ventricular diastolic dysfunction. There is no prior echocardiogram noted for this patient. Plan * Patient had full hemodialysis yesterday with no events. Potassium is normal 4.2, BUN down to 61 and creatinine 4.64. Patient was admitted with BUN more than 190. Next hemodialysis will be tomorrow * Patient has anemia in the setting of chronic kidney disease. Ferritin was more than 1000. Aranesp was started 40 mcg weekly to be adjusted to keep hemoglobin between 9 and 11 g/dL. * Continue calcium acetate 1300 mg with each meal for hyperphosphatemia * Continue calcitriol 0.25 mcg 3 times a week for secondary Hyperparathyroidism * Outpatient is being arranged at [facility] dialysis unit considering his [employer] insurance. Patient will be ready to be discharged after securing outpatient dialysis unit and he have tunneled hemodialysis catheter done. He will follow-up with a synthetic filament extruder in [place] area. Patient and daughter are interested in home hemodialysis that can be discussed with his synthetic filament extruder in [place]. Urology was consulted for persistent hydronephrosis and bilateral ureteral stents, urology recommended to transfer to tertiary care center considering his comorbidities that can be done as outpatient. Patient may not have any renal recovery since he has advanced CKD with creatinine has been around 6 mg/dL over the last 1 year Documented By: Norma Lopez MD 10/28/23 1329 Signed By: <Electronically signed by MD Norma Lopez> 10/28/23 1339 [facility] Work Phone: [phone] Progress note Author Krysta Singer [facility] October 28, 2023 12:00pm Note Date/Time October 28, 2023 12:0 0pm [facility] [address] [place] [address] Hospitalist Progress Note Signed Patient: Matt Honeycutt MR#: [id number] : 1950 Acct:[id number] Age/Sex: 73 / M Adm Date: 4 Loc: Room: [address] [place] [address] Type: ADM IN Attending Dr: Krysta Singer MD Copies to: ~ Date of Service: 10/28/2023 Subjective Subjective Narrative: On examination patient resting comfortably with no overnight event. No further arrhythmia noted and currently noted to have occasional PVCs on telemetry. Waiting placement of dialysis catheter. Denies chest pain or shortness of breath. Patient is looking forward to going back home and mentioned he has multiple aides at home. Exam Physical Exam Vital Signs: Temp Pulse Resp BP Pulse Ox O2 Del Method O2 Flow Rate 97.7 F 80 18 117/53 L 99 Nasal Cannula 4 10/28/23 07:42 10/28/23 11:46 10/28/23 11:46 10/28/23 11:46 10/28/23 11:46 10/28/23 11:46 10/28/23 11:46 Const Orientation: alert, awake and oriented x3 Resp Effort & Inspection: normal respiratory effort Auscultation: diminished lung sounds (Due to body habitus on basis) bilaterally,no rales, no rhonchi and no wheezes Cardio Rate: regular rate Rhythm: regular rhythm Heart Sounds: S1 normal and S2 normal GI Palpation: soft, not firm, no guarding and nontender Neuro General: patient alert, patient awake, patient oriented x3, moves all extremities and CN's II-XI intact bilaterally Extrem General: no calf tenderness bilaterally and edema Laterality: bilaterally Severity: 2+ Objective Lab Results 10/28/23 04:30 10/28/23 04:30 Meds Allergies and Active Meds Allergies penicillin G Allergy (Unknown, Verified 10/22/23 01:36) Nausea sulfamethoxazole [From Bactrim] Allergy (Unknown, Verified 10/22/23 01:36) Nausea trimethoprim [From Bactrim] Allergy (Unknown, Verified 10/22/23 01:36) Nausea Penicillins Allergy (Verified 10/22/23 01:36) Hives Active Meds: Active Medications Generic Name Dose Route Start Last Admin Trade Name Freq PRN Reason Stop Dose Admin Acetaminophen 650 mg 10/22/23 22:13 10/27/23 16:26 Acetaminophen 325 Mg Tablet PO 10/21/24 22:12 650 mg Q6H PRN Administration Pain Scale 1 - 5 Albuterol 2 puff 10/23/23 13:42 Albuterol Hfa 60 Puff/8 Gram Inhaler INHALATION 10/22/24 13:41 Q6H PRN Shortness Of Breath Or Wheezing Aspirin 81 mg 10/24/23 09:00 10/28/23 09:00 Aspirin 81 Mg Tab.Chew PO 10/23/24 08:59 81 mg DAILY [facility] Administration Atorvastatin Calcium 80 mg 10/24/23 09:00 10/28/23 09:00 Atorvastatin 80 Mg Tablet PO 10/23/24 08:59 80 mg DAILY [facility] Administration Docusate Sodium 100 mg 10/23/23 21:00 10/28/23 09:00 Docusate 100 Mg Capsule PO 10/22/24 20:59 100 mg BID DELFIN Administration Ferrous Sulfate 324 mg 10/24/23 09:00 10/28/23 09:00 Ferrous Sulfate 324 Mg Tablet. PO 10/23/24 08:59 324 mg DAILY [facility] Administration Finasteride 5 mg 10/24/23 09:00 10/28/23 09:00 Finasteride 5 Mg Tablet PO 10/23/24 08:59 5 mg DAILY [facility] Administration Fluticasone Propionate 1 puff 10/23/23 21:00 10/28/23 09:46 Fluticasone Propionate 44 120 Puff/10.6 Gm Inhaler INHALATION 10/22/24 20:59 1 puff BID [facility]FIN Administration Furosemide 80 mg 10/24/23 16:00 10/28/23 09:00 Furosemide 80 Mg Tablet PO 10/23/24 15:59 80 mg BID@0800,1600 [facility] Administration Heparin Sodium (Porcine) 5,000 unit 10/22/23 06:00 10/28/23 05:11 Heparin 5,000 Unit/Ml Vial SUBCUT 10/21/24 05:59 5,000 unit Q8HR [facility]FIN Administration Heparin Sodium (Porcine) 2,000 unit 10/22/23 11:47 10/27/23 15:41 Heparin 10,000 Unit/10 Ml Vial IV 10/21/24 11:46 2,000 unit PRN PRN Administration Dialysis Heparin Sodium (Porcine) 2,600 unit 10/23/23 11:30 10/27/23 15:41 Heparin 10,000 Unit/10 Ml Vial IV 10/22/24 11:29 2,600 unit PRN PRN Administration Dialysis Heparin Sodium (Porcine) 2,000 unit 10/24/23 09:08 Heparin 10,000 Unit/10 Ml Vial IV 10/23/24 09:07 PRN PRN Dialysis Heparin Sodium (Porcine) 1,000 unit 10/24/23 09:08 10/27/23 15:41 Heparin 10,000 Unit/10 Ml Vial IV 10/23/24 09:07 1,000 unit PRN PRN Administration Dialysis Sodium Chloride 1,000 mls @ 0 mls/hr 10/22/23 11:47 10/27/23 15:54 0.9% Sodium Chloride 1,000 Ml MISCELLANE 10/21/24 11:46 Infused .Q0M PRN Infusion Dialysis As Directed Albumin Human 25 gm in 100 mls @ 200 mls/hr 10/24/23 11:31 10/27/23 15:39 Albuminar-25 IV 10/23/24 11:30 200 mls/hr PRN PRN Administration Dialysis Insulin Aspart 0 units 10/22/23 08:00 10/28/23 09:08 Insulin Aspart 300 Units/3 Ml Insuln.Pen SUBCUT 10/21/24 07:59 Not Given TID.WM.HS [facility] Protocol Insulin Glargine 12 units 10/23/23 22:00 10/27/23 21:07 Insulin Glargine 300 Units/3 Ml Insuln.Pen SUBCUT 10/22/24 21:59 12 units QHS DELFIN Administration Levothyroxine Sodium 75 mcg 10/24/23 06:30 10/28/23 05:41 Levothyroxine 75 Mcg Tablet PO 10/23/24 06:29 Not Given DAILY@0630 DELFIN Lidocaine HCl 0.1 ml 10/22/23 10:44 Lidocaine 1% 50 Ml Vial INTRADERMA PREOP PRN Venipuncture x 1 Dose Loratadine 10 mg 10/23/23 13:42 Loratadine 10 Mg Tablet PO 10/22/24 13:41 Q48HR PRN Allergy Symptoms Magnesium Oxide 400 mg 10/22/23 15:00 10/28/23 09:00 Magnesium Oxide 400 Mg Tablet PO 10/21/24 14:59 400 mg DAILY DELFIN Administration Metoprolol Succinate 12.5 mg 10/22/23 15:00 10/28/23 09:00 Metoprolol Succinate 25 Mg Tab.Er.24h PO 10/21/24 14:59 12.5 mg DAILY DELFIN Administration Midazolam HCl 1 mg 10/28/23 11:55 10/28/23 11:55 Midazolam/Pf 2 Mg/2 Ml Vial IV-PUSH 10/28/23 11:56 1 mg ONCE ONE Administration Multi-Ingredient Cream 1 applic 10/24/23 09:00 10/28/23 09:01 Lanolin Alcohol/Mo/W.Pet/[place] (Minerin) 454 Gm Jar TOPICAL 10/23/24 08:59 1 applic DAILY DELFNI Administration Nitroglycerin 0.4 mg 10/23/23 13:42 Nitroglycerin 0.4 Mg Tab.Subl SUBLINGUAL 10/22/24 13:41 Q5M PRN Chest Pain Pantoprazole Sodium 40 mg 10/24/23 09:00 10/28/23 09:01 Pantoprazole 40 Mg Tablet. PO 10/23/24 08:59 40 mg DAILY DELFIN Administration Polyethylene Glycol 17 gm 10/23/23 21:00 10/28/23 09:01 Polyethylene Glycol 3350 17 Gm Powd.Pack PO 10/22/24 20:59 17 gm BID DELFIN Administration Simethicone 80 mg 10/23/23 13:42 Simethicone 80 Mg Tab.Chew PO 10/22/24 13:41 BID PRN (Drug) Ingestion Sodium Chloride 0 ml 10/22/23 11:47 10/27/23 15:40 Sodium Chloride 0.9 % 10 Ml Syringe IV-PUSH 10/21/24 11:46 40 ml PRN PRN Administration Flush Tolterodine Tartrate 2 mg 10/24/23 09:00 10/28/23 09:00 Tolterodine 2 Mg Cap.Er.24h PO 10/23/24 08:59 2 mg DAILY DELFIN Administration Triamcinolone Acetonide 1 applic 10/23/23 21:00 10/28/23 09:01 Triamcinolone 0.5% Cream 15 Gm Tube TOPICAL 10/22/24 20:59 1 applic BID DELFIN Administration Venlafaxine HCl 37.5 mg 10/23/23 21:00 10/28/23 09:00 Venlafaxine 37.5 Mg Tablet PO 10/22/24 20:59 37.5 mg BID DELFIN Administration Vitamin D 50 mcg 10/24/23 09:00 10/27/23 08:23 Cholecalciferol 25 Mcg (1,000 Units) Tablet PO 10/23/24 08:59 50 mcg DAILY DELFIN Administration Zinc Oxide 1 applic 10/23/23 21:00 10/28/23 09:01 Zinc Oxide 20% Ointment 56 Gm Tube TOPICAL 10/22/24 20:59 1 applic BID DELFIN Administration A&P - Hospitalist Assessment/Plan (1) Acute on chronic renal failure: (2) Hypertension: (3) CHF (congestive heart failure): (4) Hypothyroid: (5) Depression: (6) PTSD (post-traumatic stress disorder): (7) BPH (benign prostatic hyperplasia): (8) Morbid obesity: Plan Anasarca Volume overload Acute diastolic heart failure Acute on Chronic renal failure/ now ESRD End-stage renal disease Patient seen by nephrology and cardiology services. Plan for tunneled dialysis catheter as he will require hemodialysis for long- term. Currently on furosemide 80 mg twice daily. VT arrhythmias: Off amiodarone infusion/ Cardiology is following No further episode of ventricular tachycardia. Cardiology did not recommend antiarrhythmic is likely triggered by acute kidney injury. Further episode noted. Urine culture growing Elizabeth Discontinue fluconazole as it does not require treatment. Diabetes mellitus type 2 Blood glucose well-controlled and continue basal insulin with sliding scale coverage. Obesity class I: Life style modification HPL: Lipitor daily Hypertension Blood pressure has been well-controlled continue low-dose beta-zayda. Thrombocytopenia Patient does have history of chronic thrombocytopenia. Continue to monitor. Right hydronephrosis/nephrolithiasis Seen by urology with recommendation for outpatient follow-up at tertiary care facility given his multiple comorbidities. Acute on chronic anemia No signs of active bleeding. Continue to monitor. Consult PT/OT. Documented By: Krysta Singer MD 10/28/23 1157 Signed By: <Electronically signed by Krysta Singer MD> 10/28/23 1200 [facility] Work Phone: [phone] Procedure [facility]07-16-2024 Procedure [facility]07-15-2024 Progress note Author Norma Lopez [facility] October 27, 2023 1:16pm Note Date/Time October 27, 2023 1:16 pm [facility] [address] [place] [address] Nephrology Progress Note Signed Patient: Matt Honeycutt MR#: [id number] : 1950 Acct:[id number] Age/Sex: 73 / M Adm Date: 4 Loc: Room: [address] [place] [address] Type: ADM IN Attending Dr: Krysta Singer MD Copies to: ~ Date of Service: 10/27/2023 Subjective Subjective Narrative: Mr. Honeycutt is a 73-year-old male with medical history of CKD stage 5 with serum creatinine between 5 and 6 mg/dL since 2022 related to obstructive uropathy, DM,HTN, hypothyroidism, CAD, paraplegia requiring chronic indwelling catheter. Patient currently follow-up with [facility]. He was seen by our service on August 2022 when he presented with SHAWN with creatinine 6 mg/dL in the setting of obstructive uropathy. He was started on hemodialysis with tunneled hemodialysiscatheter and then was referred to [facility] in [place] for nephrostomy. He presentedto [facility] on October 18 with progressive shortness of breath, weakness and lethargy and he was found to have SHAWN on top of CKD stage V with doubling of serum creatinine up to 10 mg/dL and BUN 193 mg/dL. Patient was supposed to be transferred to [facility] however there is no bed. He has been 31-hour at [facility] ED and subsequently he was transferred to [facility] for assessment and management. Lab today was reviewed showed BUN 192, creatinine 10.75. Patient has significant acidosis with carbon oxide 9.4. He has normal potassium. He has mild volume overload with lower extremity edema. Patient was awake and able to give history however he has mild confusion. He tried to call his daughter who was not able to. 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 All of a sudden he developed uremic symptoms. Patient and daughter agreed to proceed with dialysis. Interval history: Patient still boarding in the ICU as there is no available bed outside. Patient did improve after 3 sets of hemodialysis last week. He is due for dialysis today. Monitor showed sinus rhythm with no more V. tach's. Vascular surgery was informed that patient is ready to have tunneled hemodialysis catheter either today or tomorrow. He still has temporary femoral hemodialysis catheter that was done at the time of V. tach. Exam Physical Exam Vital Signs: Temp Pulse Resp BP Pulse Ox O2 Del Method O2 Flow Rate 36.6 C 73 21 105/56 L 100 Nasal Cannula 2 10/27/23 11:52 10/27/23 11:52 10/27/23 11:52 10/27/23 11:52 10/27/23 11:52 10/27/23 11:52 10/27/23 11:52 Narrative: General: Sitting up in bed, appears uncomfortable HEENT: Atraumatic, normocephalic. No jaundice, Moist mucous membranes. He has mild pallor. Cardiovascular: Distant heart sound, regular rate and rhythm, no murmur Respiratory: Diminished bilateral air entry, bilateral diffuse wheezing GI: Nondistended, nontender, no palpable masses or organs. Normal bowel sounds Extremities: 1+ edema, no cyanosis Neurological: Awake, alert, oriented x 3. Patient is bedridden with paraplegia. Psychiatric: Cooperative, normal mood and affect Objective Intake and Output I&O: Intake & Output 10/24/23 10/25/23 10/26/23 10/27/23 23:59 23:59 23:59 23:59 Intake Total 1160 / 1160 1760 / 1760 500 / 500 100 / 100 Output Total 3251 / 3251 325 / 325 325 / 325 100 / 100 Balance -2091 / -2091 1435 / 1435 175 / 175 0 / 0 Meds and Allergies Meds: Active Medications Acetaminophen (Acetaminophen 325 Mg Tablet) 650 mg PO Q6H PRN PRN Reason: Pain Scale 1 - 5 Stop: 10/21/24 22:12 Last Admin: 10/26/23 23:59 Dose: 650 mg Albuterol (Albuterol Hfa 60 Puff/8 Gram Inhaler) 2 puff INHALATION Q6H PRN PRN Reason: Shortness Of Breath Or Wheezing Stop: 10/22/24 13:41 Aspirin (Aspirin 81 Mg Tab.Chew) 81 mg PO DAILY [facility] Stop: 10/23/24 08:59 Last Admin: 10/27/23 08:24 Dose: 81 mg Atorvastatin Calcium (Atorvastatin 80 Mg Tablet) 80 mg PO DAILY [facility] Stop: 10/23/24 08:59 Last Admin: 10/27/23 08:23 Dose: 80 mg Docusate Sodium (Docusate 100 Mg Capsule) 100 mg PO BID [facility] Stop: 10/22/24 20:59 Last Admin: 10/27/23 08:24 Dose: 100 mg Ferrous Sulfate (Ferrous Sulfate 324 Mg Tablet.Dr) 324 mg PO DAILY [facility] Stop: 10/23/24 08:59 Last Admin: 10/27/23 08:24 Dose: 324 mg Finasteride (Finasteride 5 Mg Tablet) 5 mg PO DAILY [facility] Stop: 10/23/24 08:59 Last Admin: 10/27/23 08:25 Dose: 5 mg Fluticasone Propionate (Fluticasone Propionate 44 120 Puff/10.6 Gm Inhaler) 1 puff INHALATION BID [facility] Stop: 10/22/24 20:59 Last Admin: 10/27/23 05:38 Dose: 1 puff Furosemide (Furosemide 80 Mg Tablet) 80 mg PO BID@0800,1600 [facility] Stop: 10/23/24 15:59 Last Admin: 10/27/23 08:24 Dose: 80 mg Heparin Sodium (Porcine) (Heparin 5,000 Unit/Ml Vial) 5,000 unit SUBCUT Q8HR [facility] Stop: 10/21/24 05:59 Last Admin: 10/27/23 06:19 Dose: Not Given Heparin Sodium (Porcine) (Heparin 10,000 Unit/10 Ml Vial) 2,000 unit IV PRN PRN PRN Reason: Dialysis Stop: 10/21/24 11:46 Last Admin: 10/24/23 10:57 Dose: 2,000 unit Heparin Sodium (Porcine) (Heparin 10,000 Unit/10 Ml Vial) 2,600 unit IV PRN PRN PRN Reason: Dialysis Stop: 10/22/24 11:29 Last Admin: 10/24/23 10:57 Dose: 2,600 unit Heparin Sodium (Porcine) (Heparin 10,000 Unit/10 Ml Vial) 2,000 unit IV PRN PRN PRN Reason: Dialysis Stop: 10/23/24 09:07 Heparin Sodium (Porcine) (Heparin 10,000 Unit/10 Ml Vial) 1,000 unit IV PRN PRN PRN Reason: Dialysis Stop: 10/23/24 09:07 Last Admin: 10/24/23 10:58 Dose: 1,000 unit Sodium Chloride (0.9% Sodium Chloride 1,000 Ml) 1,000 mls @ 0 mls/hr MISCELLANE.Q0M PRN PRN Reason: Dialysis Stop: 10/21/24 11:46 Last Admin: 10/24/23 10:56 Dose: 999 mls/hr Albumin Human (Albuminar-25) 25 gm in 100 mls @ 200 mls/hr IV PRN PRN PRN Reason: Dialysis Stop: 10/23/24 11:30 Last Admin: 10/24/23 12:41 Dose: 200 mls/hr Insulin Aspart (Insulin Aspart 300 Units/3 Ml Insuln.Pen) 0 units SUBCUT TID.WM.[facility]; Protocol Stop: 10/21/24 07:59 Last Admin: 10/27/23 11:50 Dose: Not Given Insulin Glargine (Insulin Glargine 300 Units/3 Ml Insuln.Pen) 12 units SUBCUT QHS [facility] Stop: 10/22/24 21:59 Last Admin: 10/26/23 21:47 Dose: 12 units Levothyroxine Sodium (Levothyroxine 75 Mcg Tablet) 75 mcg PO DAILY@0630 [facility] Stop: 10/23/24 06:29 Last Admin: 10/27/23 07:41 Dose: Not Given Lidocaine HCl (Lidocaine 1% 50 Ml Vial) 0.1 ml INTRADERMA PREOP PRN PRN Reason: Venipuncture x 1 Dose Loratadine (Loratadine 10 Mg Tablet) 10 mg PO Q48HR PRN PRN Reason: Allergy Symptoms Stop: 10/22/24 13:41 Magnesium Oxide (Magnesium Oxide 400 Mg Tablet) 400 mg PO DAILY [facility] Stop: 10/21/24 14:59 Last Admin: 10/27/23 08:23 Dose: 400 mg Metoprolol Succinate (Metoprolol Succinate 25 Mg Tab.Er.24h) 12.5 mg PO DAILY [facility] Stop: 10/21/24 14:59 Last Admin: 10/27/23 08:24 Dose: 12.5 mg Multi-Ingredient Cream (Lanolin Alcohol/Mo/W.Pet/[place] (Minerin) 454 Gm Jar) 1 applic TOPICAL DAILY [facility] Stop: 10/23/24 08:59 Last Admin: 10/27/23 08:26 Dose: 1 applic Nitroglycerin (Nitroglycerin 0.4 Mg Tab.Subl) 0.4 mg SUBLINGUAL Q5M PRN PRN Reason: Chest Pain Stop: 10/22/24 13:41 Pantoprazole Sodium (Pantoprazole 40 Mg Tablet.Dr) 40 mg PO DAILY [facility] Stop: 10/23/24 08:59 Last Admin: 10/27/23 08:25 Dose: 40 mg Polyethylene Glycol (Polyethylene Glycol 3350 17 Gm Powd.Pack) 17 gm PO BID [facility] Stop: 10/22/24 20:59 Last Admin: 10/27/23 08:25 Dose: Not Given Simethicone (Simethicone 80 Mg Tab.Chew) 80 mg PO BID PRN PRN Reason: (Drug) Ingestion Stop: 10/22/24 13:41 Sodium Chloride (Sodium Chloride 0.9 % 10 Ml Syringe) 0 ml IV-PUSH PRN PRN PRN Reason: Flush Stop: 10/21/24 11:46 Last Admin: 10/24/23 10:56 Dose: 40 ml Tolterodine Tartrate (Tolterodine 2 Mg Cap.Er.24h) 2 mg PO DAILY DELFIN Stop: 10/23/24 08:59 Last Admin: 10/27/23 08:24 Dose: 2 mg Triamcinolone Acetonide (Triamcinolone 0.5% Cream 15 Gm Tube) 1 applic TOPICAL BID DELFIN Stop: 10/22/24 20:59 Last Admin: 10/27/23 08:27 Dose: 1 applic Venlafaxine HCl (Venlafaxine 37.5 Mg Tablet) 37.5 mg PO BID DELFIN Stop: 10/22/24 20:59 Last Admin: 10/27/23 08:25 Dose: 37.5 mg Vitamin D (Cholecalciferol 25 Mcg (1,000 Units) Tablet) 50 mcg PO DAILY DELFIN Stop: 10/23/24 08:59 Last Admin: 10/27/23 08:23 Dose: 50 mcg Zinc Oxide (Zinc Oxide 20% Ointment 56 Gm Tube) 1 applic TOPICAL BID DELFIN Stop: 10/22/24 20:59 Last Admin: 10/27/23 08:26 Dose: 1 applic Allergies penicillin G Allergy (Unknown, Verified 10/22/23 01:36) Nausea sulfamethoxazole [From Bactrim] Allergy (Unknown, Verified 10/22/23 01:36) Nausea trimethoprim [From Bactrim] Allergy (Unknown, Verified 10/22/23 01:36) Nausea Penicillins Allergy (Verified 10/22/23 01:36) Hives Results - Nephrology Labs 10/23/23 05:54 10/27/23 04:36 Labs: 10/26/23 10/27/23 04:43 04:36 BUN 83 H Creatinine 6.42 H D Iron Saturation TNP Radiology Impressions Impressions - last 24 hours: Any impression(s) listed above is documentation that was entered by the reading physician into a diagnostic report(s) for Matt Honeycutt. I have reviewedthe report(s) and am incorporating any findings in the treatment plan of this patient where applicable. A&P - Nephrology Assessment/Plan (1) ESRD (end stage renal disease): Plan: Patient has progressive CKD currently ESRD. Serum creatinine has been running between 5 and 6 mg/dL over the last year in the setting of obstructive uropathy currently with Wooten catheter. Patient has diabetes as well that contribute toprogression of CKD. He has uremic symptoms with severe metabolic acidosis requiring urgent dialysis (2) Uropathy, obstructive: Plan: He is known to have BPH and left renal hydronephrosis s/p nephrostomy 2021 (3) Metabolic acidosis: Plan: Patient has severe metabolic acidosis seems to be related to advanced CKD. Lactic acid was only 0.8 mmol/L. (4) Type 2 diabetes mellitus with diabetic chronic kidney disease: Plan: Patient has longstanding history of diabetes with diabetic complications. (5) Volume overload: Plan: Bilateral lower extremity edema shortness of breath with volume overload in the setting of CKD (6) Hyperparathyroidism, secondary renal: Plan: Patient has hyperphosphatemia and elevated intact PTH 498 pg/mL in the setting of advanced CKD. (7) Ventricular tachycardia: Plan: Patient had ventricular tachycardia in the setting of severe acidosis and uremia. He was on amiodarone drip that was stopped by cardiology. Patient on metoprolol. Echocardiogram The left ventricular size, thickness and function are normal Ejection Fraction = 60-65%. Apical aneurysm with dyskinesia is noted No left ventricular thrombus or mass is seen. There is left ventricular diastolic dysfunction. There is no prior echocardiogram noted for this patient. Plan * Hemodialysis today for 210 minutes, 3K bath. 3 L ultrafiltration as tolerated. Will use his current femoral hemodialysis catheter will continue to work, last hemodialysis has poor blood flow. If patient was not able to get dialysis today, will wait until he gets a tunneled hemodialysis catheter hopefully by tomorrow. * Patient has anemia in the setting of chronic kidney disease. Ferritin was more than 1000. Will start Aranesp 40 mcg weekly with each hemodialysis per * Continue calcium acetate 1300 mg with each meal for hyperphosphatemia * Continue calcitriol 0.25 mcg 3 times a week for secondary Hyperparathyroidism * Outpatient is being arranged at [facility] dialysis unit considering his [employer] insurance. Patient will be ready to be discharged after securing outpatient dialysis unit and he have tunneled hemodialysis catheter done. He will follow-up with a synthetic filament extruder in [place] area. Patient and daughter are interested in home hemodialysis that can be discussed with his synthetic filament extruder in [place]. Urology was consulted for persistent hydronephrosis and bilateral ureteral stents, urology recommended to transfer to tertiary care center considering his comorbidities. This can be done as outpatient. Patient may not have any renal recovery since he has advanced CKD with creatinine has been around 6 mg/dL over the last 1 year Documented By: Norma Lopez MD 10/27/23 1311 Signed By: <Electronically signed by MD Norma Lopez> 10/27/23 1316 [facility] Work Phone: [phone] Progress note Author Krysta Singer [facility] October 27, 2023 10:23am Note Date/Time October 27, 2023 10:1 4am [facility] [address] [place] [address] Hospitalist Progress Note Signed Patient: Matt Honeycutt MR#: [id number] : 1950 Acct:[id number] Age/Sex: 73 / M Adm Date: 4 Loc: Room: [address] [place] [address] Type: ADM IN Attending Dr: Krysta Singer MD Copies to: ~ Date of Service: 10/27/2023 Subjective Subjective Narrative: On examination patient was on phone. He did not sleep much last night. On 3 L oxygen and mentioned that he does not use oxygen at home. He is complaining of back pain which is chronic. No event monitored on telemetry last night. Patient was transferred from [facility] 10/21 for weakness, lethargy and SHAWN on chronic kidney disease. As per the patient he is bedbound since he had astroke with some left-sided weakness in January last year. Does get home healthand uses [employer] lift and wheelchair. Wooten catheter in place. He underwent emergent right femoral dialysis catheter placement and started on hemodialysis by nephrology. Echocardiogram showed preserved ejection fraction with apical aneurysm. No ventricular thrombus or mass seen. Prior to the dialysis he had along run of sustained monomorphic V. tach and cardiology was consulted. Cardiology impression likely provoked by acute on chronic renal failure. No antiarrhythmic therapy recommended. Exam Physical Exam Vital Signs: Temp Pulse Resp BP Pulse Ox O2 Del Method O2 Flow Rate 98.2 F 76 23 130/76 99 Nasal Cannula 2 10/27/23 08:00 10/27/23 08:00 10/27/23 08:00 10/27/23 08:00 10/27/23 08:00 10/27/23 08:00 10/27/23 08:00 Const Orientation: awake Other: Answering appropriately but does appear slightly drowsy while talking. Resp Effort & Inspection: normal respiratory effort Auscultation: diminished lung sounds (Due to body habitus on basis) bilaterally,no rales, no rhonchi and no wheezes Cardio Rate: regular rate Rhythm: regular rhythm Heart Sounds: S1 normal and S2 normal GI Palpation: soft, not firm, no guarding and nontender Neuro General: patient awake, moves all extremities and CN's II-XI intact bilaterally Other: Weakness in both lower extremities with difficulty left both legs. Extrem General: no calf tenderness bilaterally and edema Laterality: bilaterally Severity: 1+ Objective Lab Results 10/23/23 05:54 10/27/23 04:36 Meds Allergies and Active Meds Allergies penicillin G Allergy (Unknown, Verified 10/22/23 01:36) Nausea sulfamethoxazole [From Bactrim] Allergy (Unknown, Verified 10/22/23 01:36) Nausea trimethoprim [From Bactrim] Allergy (Unknown, Verified 10/22/23 01:36) Nausea Penicillins Allergy (Verified 10/22/23 01:36) Hives Active Meds: Active Medications Generic Name Dose Route Start Last Admin Trade Name Freq PRN Reason Stop Dose Admin Acetaminophen 650 mg 10/22/23 22:13 10/26/23 23:59 Acetaminophen 325 Mg Tablet PO 10/21/24 22:12 650 mg Q6H PRN Administration Pain Scale 1 - 5 Albuterol 2 puff 10/23/23 13:42 Albuterol Hfa 60 Puff/8 Gram Inhaler INHALATION 10/22/24 13:41 Q6H PRN Shortness Of Breath Or Wheezing Aspirin 81 mg 10/24/23 09:00 10/27/23 08:24 Aspirin 81 Mg Tab.Chew PO 10/23/24 08:59 81 mg DAILY DELFIN Administration Atorvastatin Calcium 80 mg 10/24/23 09:00 10/27/23 08:23 Atorvastatin 80 Mg Tablet PO 10/23/24 08:59 80 mg DAILY DELFIN Administration Carvedilol 12.5 mg 10/23/23 17:00 10/27/23 08:24 Carvedilol 12.5 Mg Tablet PO 10/22/24 16:59 12.5 mg BID.WITH.MEALS DELFIN Administration Docusate Sodium 100 mg 10/23/23 21:00 10/27/23 08:24 Docusate 100 Mg Capsule PO 10/22/24 20:59 100 mg BID DELFIN Administration Ferrous Sulfate 324 mg 10/24/23 09:00 10/27/23 08:24 Ferrous Sulfate 324 Mg Tablet. PO 10/23/24 08:59 324 mg DAILY DELFIN Administration Finasteride 5 mg 10/24/23 09:00 10/27/23 08:25 Finasteride 5 Mg Tablet PO 10/23/24 08:59 5 mg DAILY DELFIN Administration Fluconazole 1 each 10/23/23 15:11 Fluconazole - Pharmacy Dosing IV ONCE PRN ZZ.Pharmacy Consult Protocol Fluticasone Propionate 1 puff 10/23/23 21:00 10/27/23 05:38 Fluticasone Propionate 44 120 Puff/10.6 Gm Inhaler INHALATION 10/22/24 20:59 1 puff BID DELFIN Administration Furosemide 80 mg 10/24/23 16:00 10/27/23 08:24 Furosemide 80 Mg Tablet PO 10/23/24 15:59 80 mg BID@0800,1600 DELFIN Administration Heparin Sodium (Porcine) 5,000 unit 10/22/23 06:00 10/27/23 06:19 Heparin 5,000 Unit/Ml Vial SUBCUT 10/21/24 05:59 Not Given Q8HR DELFIN Heparin Sodium (Porcine) 2,000 unit 10/22/23 11:47 10/24/23 10:57 Heparin 10,000 Unit/10 Ml Vial IV 10/21/24 11:46 2,000 unit PRN PRN Administration Dialysis Heparin Sodium (Porcine) 2,600 unit 10/23/23 11:30 10/24/23 10:57 Heparin 10,000 Unit/10 Ml Vial IV 10/22/24 11:29 2,600 unit PRN PRN Administration Dialysis Heparin Sodium (Porcine) 2,000 unit 10/24/23 09:08 Heparin 10,000 Unit/10 Ml Vial IV 10/23/24 09:07 PRN PRN Dialysis Heparin Sodium (Porcine) 1,000 unit 10/24/23 09:08 10/24/23 10:58 Heparin 10,000 Unit/10 Ml Vial IV 10/23/24 09:07 1,000 unit PRN PRN Administration Dialysis Sodium Chloride 1,000 mls @ 0 mls/hr 10/22/23 11:47 10/24/23 10:56 0.9% Sodium Chloride 1,000 Ml MISCELLANE 10/21/24 11:46 999 mls/hr .Q0M PRN Administration Dialysis As Directed Albumin Human 25 gm in 100 mls @ 200 mls/hr 10/24/23 11:31 10/24/23 12:41 Albuminar-25 IV 10/23/24 11:30 200 mls/hr PRN PRN Administration Dialysis Insulin Aspart 0 units 10/22/23 08:00 10/27/23 07:54 Insulin Aspart 300 Units/3 Ml Insuln.Pen SUBCUT 10/21/24 07:59 Not Given TID.WM.HS [facility] Protocol Insulin Glargine 12 units 10/23/23 22:00 10/26/23 21:47 Insulin Glargine 300 Units/3 Ml Insuln.Pen SUBCUT 10/22/24 21:59 12 units QHS DELFIN Administration Levothyroxine Sodium 75 mcg 10/24/23 06:30 10/27/23 07:41 Levothyroxine 75 Mcg Tablet PO 10/23/24 06:29 Not Given DAILY@0630 [facility]FIN Lidocaine HCl 0.1 ml 10/22/23 10:44 Lidocaine 1% 50 Ml Vial INTRADERMA PREOP PRN Venipuncture x 1 Dose Loratadine 10 mg 10/23/23 13:42 Loratadine 10 Mg Tablet PO 10/22/24 13:41 Q48HR PRN Allergy Symptoms Magnesium Oxide 400 mg 10/22/23 15:00 10/27/23 08:23 Magnesium Oxide 400 Mg Tablet PO 10/21/24 14:59 400 mg DAILY [facility] Administration Metoprolol Succinate 12.5 mg 10/22/23 15:00 10/27/23 08:24 Metoprolol Succinate 25 Mg Tab.Er.24h PO 10/21/24 14:59 12.5 mg DAILY [facility] Administration Multi-Ingredient Cream 1 applic 10/24/23 09:00 10/27/23 08:26 Lanolin Alcohol/Mo/W.Pet/[place] (Minerin) 454 Gm Jar TOPICAL 10/23/24 08:59 1 applic DAILY [facility] Administration Nitroglycerin 0.4 mg 10/23/23 13:42 Nitroglycerin 0.4 Mg Tab.Subl SUBLINGUAL 10/22/24 13:41 Q5M PRN Chest Pain Pantoprazole Sodium 40 mg 10/24/23 09:00 10/27/23 08:25 Pantoprazole 40 Mg Tablet.Dr PO 10/23/24 08:59 40 mg DAILY DELFIN Administration Polyethylene Glycol 17 gm 10/23/23 21:00 10/27/23 08:25 Polyethylene Glycol 3350 17 Gm Powd.Pack PO 10/22/24 20:59 Not Given BID DELFIN Simethicone 80 mg 10/23/23 13:42 Simethicone 80 Mg Tab.Chew PO 10/22/24 13:41 BID PRN (Drug) Ingestion Sodium Chloride 0 ml 10/22/23 11:47 10/24/23 10:56 Sodium Chloride 0.9 % 10 Ml Syringe IV-PUSH 10/21/24 11:46 40 ml PRN PRN Administration Flush Tolterodine Tartrate 2 mg 10/24/23 09:00 10/27/23 08:24 Tolterodine 2 Mg Cap.Er.24h PO 10/23/24 08:59 2 mg DAILY DELFIN Administration Triamcinolone Acetonide 1 applic 10/23/23 21:00 10/27/23 08:27 Triamcinolone 0.5% Cream 15 Gm Tube TOPICAL 10/22/24 20:59 1 applic BID DELFIN Administration Venlafaxine HCl 37.5 mg 10/23/23 21:00 10/27/23 08:25 Venlafaxine 37.5 Mg Tablet PO 10/22/24 20:59 37.5 mg BID DELFIN Administration Vitamin D 50 mcg 10/24/23 09:00 10/27/23 08:23 Cholecalciferol 25 Mcg (1,000 Units) Tablet PO 10/23/24 08:59 50 mcg DAILY DELFIN Administration Zinc Oxide 1 applic 10/23/23 21:00 10/27/23 08:26 Zinc Oxide 20% Ointment 56 Gm Tube TOPICAL 10/22/24 20:59 1 applic BID DELFIN Administration A&P - Hospitalist Assessment/Plan (1) Acute on chronic renal failure: (2) Hypertension: (3) CHF (congestive heart failure): (4) Hypothyroid: (5) Depression: (6) PTSD (post-traumatic stress disorder): (7) BPH (benign prostatic hyperplasia): (8) Morbid obesity: Plan Anasarca Volume overload Acute diastolic heart failure Acute on Chronic renal failure/ now ESRD End-stage renal disease Patient seen by nephrology and cardiology services. Plan for tunneled dialysis catheter as he will require hemodialysis for long- term. Currently on furosemide 80 mg twice daily. VT arrhythmias: Off amiodarone infusion/ Cardiology is following No further episode of ventricular tachycardia. Cardiology did not recommend antiarrhythmic is likely triggered by acute kidney injury. Urine culture growing Elizabeth Discontinue fluconazole as it does not require treatment. Diabetes mellitus type 2 Blood glucose well-controlled and continue basal insulin with sliding scale coverage. Obesity class I: Life style modification HPL: Lipitor daily Hypertension Blood pressure has been well-controlled continue low-dose beta-zayda. Thrombocytopenia Patient does have history of chronic thrombocytopenia. Continue to monitor. Right hydronephrosis/nephrolithiasis Seen by urology with recommendation for outpatient follow-up at tertiary care facility given his multiple comorbidities. Documented By: Krysta Singer MD 10/27/23 1007 Signed By: <Electronically signed by Krysta Singer MD> 10/27/23 [facility] Work Phone: [phone] Progress note [facility] October 26, 2023 12:23pm Note Date/Time October 26, 2023 12:2 3pm [facility] [address] [place] [address] Nephrology Progress Note Signed Patient: Matt Honeycutt MR#: [id number] : 1950 Acct:[id number] Age/Sex: 73 / M Adm Date: 4 Loc: Room: [address] [place] [address] Type: ADM IN Attending Dr: Dionicio Donald MD Copies to: ~ Date of Service: 10/26/2023 Subjective Subjective Narrative: Mr. Honeycutt is a 73-year-old male with medical history of CKD stage 5 with serum creatinine between 5 and 6 mg/dL since 2022 related to obstructive uropathy, DM,HTN, hypothyroidism, CAD, paraplegia requiring chronic indwelling catheter. Patient currently follow-up with [facility]. He was seen by our service on August 2022 when he presented with SHAWN with creatinine 6 mg/dL in the setting of obstructive uropathy. He was started on hemodialysis with tunneled hemodialysiscatheter and then was referred to [facility] in Winter for nephrostomy. He presentedto [facility] on October 18 with progressive shortness of breath, weakness and lethargy and he was found to have SHAWN on top of CKD stage V with doubling of serum creatinine up to 10 mg/dL and BUN 193 mg/dL. Patient was supposed to be transferred to [facility] however there is no bed. He has been 31-hour at [facility] and subsequently he was transferred to [facility] for assessment and management. Lab today was reviewed showed BUN 192, creatinine 10.75. Patient has significant acidosis with carbon oxide 9.4. He has normal potassium. He has mild volume overload with lower extremity edema. Patient was awake and able to give history however he has mild confusion. He tried to call his daughter who was not able to. 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 All of a sudden he developed uremic symptoms. Patient and daughter agreed to proceed with dialysis. Interval history: Patient still boarding in the ICU as there is no available bed outside. He is sleeping with no reported complaints. He is breathing comfortably on 3 L/min nasal cannula with pulse ox 100% He had 3 hemodialysis treatments [id number] with improvement of uremia and acidosis. Edema has markedly improved with ultrafiltration as well. He is waiting for tunneled hemodialysis catheter that hopefully can be done tomorrow then I will arrange for discharge Exam Physical Exam Vital Signs: Temp Pulse Resp BP Pulse Ox O2 Del Method O2 Flow Rate 37.2 C 97 24 129/60 100 Nasal Cannula 3 10/26/23 08:00 10/26/23 08:00 10/26/23 08:00 10/26/23 08:00 10/26/23 08:00 10/26/23 09:08 10/26/23 09:08 Narrative: General: Sitting up in bed, appears uncomfortable HEENT: Atraumatic, normocephalic. No jaundice, Moist mucous membranes. He has mild pallor. Cardiovascular: Distant heart sound, regular rate and rhythm, no murmur Respiratory: Diminished bilateral air entry, bilateral diffuse wheezing GI: Nondistended, nontender, no palpable masses or organs. Normal bowel sounds Extremities: 1+ edema, no cyanosis Neurological: Awake, alert, oriented x 3. Patient is bedridden with paraplegia. Psychiatric: Cooperative, normal mood and affect Objective Intake and Output I&O: Intake & Output 10/23/23 10/24/23 10/25/23 10/26/23 23:59 23:59 23:59 23:59 Intake Total 1270 / 1270 1160 / 1160 1760 / 1760 500 / 500 Output Total 2932 / 2932 3251 / 3251 325 / 325 200 / 200 Balance -1662 / -1662 -2091 / -2091 1435 / 1435 300 / 300 Meds and Allergies Meds: Active Medications Acetaminophen (Acetaminophen 325 Mg Tablet) 650 mg PO Q6H PRN PRN Reason: Pain Scale 1 - 5 Stop: 10/21/24 22:12 Last Admin: 10/25/23 21:50 Dose: 650 mg Albuterol (Albuterol Hfa 60 Puff/8 Gram Inhaler) 2 puff INHALATION Q6H PRN PRN Reason: Shortness Of Breath Or Wheezing Stop: 10/22/24 13:41 Aspirin (Aspirin 81 Mg Tab.Chew) 81 mg PO DAILY [facility] Stop: 10/23/24 08:59 Last Admin: 10/26/23 09:03 Dose: 81 mg Atorvastatin Calcium (Atorvastatin 80 Mg Tablet) 80 mg PO DAILY [facility] Stop: 10/23/24 08:59 Last Admin: 10/26/23 09:03 Dose: 80 mg Carvedilol (Carvedilol 12.5 Mg Tablet) 12.5 mg PO BID.WITH.MEALS [facility] Stop: 10/22/24 16:59 Last Admin: 10/26/23 09:03 Dose: 12.5 mg Docusate Sodium (Docusate 100 Mg Capsule) 100 mg PO BID [facility] Stop: 10/22/24 20:59 Last Admin: 10/26/23 09:04 Dose: 100 mg Ferrous Sulfate (Ferrous Sulfate 324 Mg Tablet.Dr) 324 mg PO DAILY [facility] Stop: 10/23/24 08:59 Last Admin: 10/26/23 09:04 Dose: 324 mg Finasteride (Finasteride 5 Mg Tablet) 5 mg PO DAILY [facility] Stop: 10/23/24 08:59 Last Admin: 10/26/23 09:04 Dose: 5 mg Fluconazole (Fluconazole - Pharmacy Dosing) 1 each IV ONCE PRN; Protocol PRN Reason: ZZ.Pharmacy Consult Fluticasone Propionate (Fluticasone Propionate 44 120 Puff/10.6 Gm Inhaler) 1 puff INHALATION BID DELFIN Stop: 10/22/24 20:59 Last Admin: 10/26/23 06:10 Dose: 1 puff Furosemide (Furosemide 80 Mg Tablet) 80 mg PO BID@0800,1600 DELFIN Stop: 10/23/24 15:59 Last Admin: 10/26/23 09:03 Dose: 80 mg Heparin Sodium (Porcine) (Heparin 5,000 Unit/Ml Vial) 5,000 unit SUBCUT Q8HR DELFIN Stop: 10/21/24 05:59 Last Admin: 10/26/23 06:34 Dose: 5,000 unit Heparin Sodium (Porcine) (Heparin 10,000 Unit/10 Ml Vial) 2,000 unit IV PRN PRN PRN Reason: Dialysis Stop: 10/21/24 11:46 Last Admin: 10/24/23 10:57 Dose: 2,000 unit Heparin Sodium (Porcine) (Heparin 10,000 Unit/10 Ml Vial) 2,600 unit IV PRN PRN PRN Reason: Dialysis Stop: 10/22/24 11:29 Last Admin: 10/24/23 10:57 Dose: 2,600 unit Heparin Sodium (Porcine) (Heparin 10,000 Unit/10 Ml Vial) 2,000 unit IV PRN PRN PRN Reason: Dialysis Stop: 10/23/24 09:07 Heparin Sodium (Porcine) (Heparin 10,000 Unit/10 Ml Vial) 1,000 unit IV PRN PRN PRN Reason: Dialysis Stop: 10/23/24 09:07 Last Admin: 10/24/23 10:58 Dose: 1,000 unit Sodium Chloride (0.9% Sodium Chloride 1,000 Ml) 1,000 mls @ 0 mls/hr MISCELLANE.Q0M PRN PRN Reason: Dialysis Stop: 10/21/24 11:46 Last Admin: 10/24/23 10:56 Dose: 999 mls/hr Albumin Human (Albuminar-25) 25 gm in 100 mls @ 200 mls/hr IV PRN PRN PRN Reason: Dialysis Stop: 10/23/24 11:30 Last Admin: 10/24/23 12:41 Dose: 200 mls/hr Insulin Aspart (Insulin Aspart 300 Units/3 Ml Insuln.Pen) 0 units SUBCUT TID.WM.HS [facility]; Protocol Stop: 10/21/24 07:59 Last Admin: 10/26/23 09:02 Dose: Not Given Insulin Glargine (Insulin Glargine 300 Units/3 Ml Insuln.Pen) 12 units SUBCUT QHS [facility] Stop: 10/22/24 21:59 Last Admin: 10/25/23 21:50 Dose: 12 units Levothyroxine Sodium (Levothyroxine 75 Mcg Tablet) 75 mcg PO DAILY@0630 [facility] Stop: 10/23/24 06:29 Last Admin: 10/26/23 09:03 Dose: 75 mcg Lidocaine HCl (Lidocaine 1% 50 Ml Vial) 0.1 ml INTRADERMA PREOP PRN PRN Reason: Venipuncture x 1 Dose Loratadine (Loratadine 10 Mg Tablet) 10 mg PO Q48HR PRN PRN Reason: Allergy Symptoms Stop: 10/22/24 13:41 Magnesium Oxide (Magnesium Oxide 400 Mg Tablet) 400 mg PO DAILY [facility] Stop: 10/21/24 14:59 Last Admin: 10/26/23 09:04 Dose: 400 mg Metoprolol Succinate (Metoprolol Succinate 25 Mg Tab.Er.24h) 12.5 mg PO DAILY [facility] Stop: 10/21/24 14:59 Last Admin: 10/26/23 09:04 Dose: 12.5 mg Multi-Ingredient Cream (Lanolin Alcohol/Mo/W.Pet/[place] (Minerin) 454 Gm Jar) 1 applic TOPICAL DAILY [facility] Stop: 10/23/24 08:59 Last Admin: 10/26/23 10:05 Dose: 1 applic Nitroglycerin (Nitroglycerin 0.4 Mg Tab.Subl) 0.4 mg SUBLINGUAL Q5M PRN PRN Reason: Chest Pain Stop: 10/22/24 13:41 Pantoprazole Sodium (Pantoprazole 40 Mg Tablet.Dr) 40 mg PO DAILY [facility] Stop: 10/23/24 08:59 Last Admin: 10/26/23 09:05 Dose: 40 mg Polyethylene Glycol (Polyethylene Glycol 3350 17 Gm Powd.Pack) 17 gm PO BID [facility] Stop: 10/22/24 20:59 Last Admin: 10/26/23 09:05 Dose: Not Given Simethicone (Simethicone 80 Mg Tab.Chew) 80 mg PO BID PRN PRN Reason: (Drug) Ingestion Stop: 10/22/24 13:41 Sodium Chloride (Sodium Chloride 0.9 % 10 Ml Syringe) 0 ml IV-PUSH PRN PRN PRN Reason: Flush Stop: 10/21/24 11:46 Last Admin: 10/24/23 10:56 Dose: 40 ml Tolterodine Tartrate (Tolterodine 2 Mg Cap.Er.24h) 2 mg PO DAILY DELFIN Stop: 10/23/24 08:59 Last Admin: 10/26/23 09:05 Dose: 2 mg Triamcinolone Acetonide (Triamcinolone 0.5% Cream 15 Gm Tube) 1 applic TOPICAL BID DELFIN Stop: 10/22/24 20:59 Last Admin: 10/26/23 09:05 Dose: 1 applic Venlafaxine HCl (Venlafaxine 37.5 Mg Tablet) 37.5 mg PO BID DELFIN Stop: 10/22/24 20:59 Last Admin: 10/26/23 09:05 Dose: 37.5 mg Vitamin D (Cholecalciferol 25 Mcg (1,000 Units) Tablet) 50 mcg PO DAILY DELFIN Stop: 10/23/24 08:59 Last Admin: 10/26/23 09:04 Dose: 50 mcg Zinc Oxide (Zinc Oxide 20% Ointment 56 Gm Tube) 1 applic TOPICAL BID DELFIN Stop: 10/22/24 20:59 Last Admin: 10/26/23 10:05 Dose: 1 applic Allergies penicillin G Allergy (Unknown, Verified 10/22/23 01:36) Nausea sulfamethoxazole [From Bactrim] Allergy (Unknown, Verified 10/22/23 01:36) Nausea trimethoprim [From Bactrim] Allergy (Unknown, Verified 10/22/23 01:36) Nausea Penicillins Allergy (Verified 10/22/23 01:36) Hives Results - Nephrology Labs 10/23/23 05:54 10/26/23 04:43 Labs: 10/26/23 04:43 BUN 72 H Creatinine 5.53 H D Radiology Impressions Impressions - last 24 hours: Any impression(s) listed above is documentation that was entered by the reading physician into a diagnostic report(s) for Matt Honeycutt. I have reviewedthe report(s) and am incorporating any findings in the treatment plan of this patient where applicable. A&P - Nephrology Assessment/Plan (1) ESRD (end stage renal disease): Plan: Patient has progressive CKD currently ESRD. Serum creatinine has been running between 5 and 6 mg/dL over the last year in the setting of obstructive uropathy currently with Wooten catheter. Patient has diabetes as well that contribute toprogression of CKD. He has uremic symptoms with severe metabolic acidosis requiring urgent dialysis (2) Uropathy, obstructive: Plan: He is known to have BPH and left renal hydronephrosis s/p nephrostomy 2021 (3) Metabolic acidosis: Plan: Patient has severe metabolic acidosis seems to be related to advanced CKD. Lactic acid was only 0.8 mmol/L. (4) Type 2 diabetes mellitus with diabetic chronic kidney disease: Plan: Patient has longstanding history of diabetes with diabetic complications. (5) Volume overload: Plan: Bilateral lower extremity edema shortness of breath with volume overload in the setting of CKD (6) Hyperparathyroidism, secondary renal: Plan: Patient has hyperphosphatemia and elevated intact PTH 498 pg/mL in the setting of advanced CKD. (7) Ventricular tachycardia: Plan: Patient had ventricular tachycardia in the setting of severe acidosis and uremia. He was on amiodarone drip that was stopped by cardiology. Patient on metoprolol. Echocardiogram The left ventricular size, thickness and function are normal Ejection Fraction = 60-65%. Apical aneurysm with dyskinesia is noted No left ventricular thrombus or mass is seen. There is left ventricular diastolic dysfunction. There is no prior echocardiogram noted for this patient. Plan * Patient is euvolemic to mildly hypervolemic on furosemide 80 mg twice a day. He had multiple hemodialysis treatments with ultrafiltration. Next hemodialysis is due for tomorrow. * Continue calcium acetate 1300 mg with each meal for hyperphosphatemia * Continue calcitriol 0.25 mcg 3 times a week for secondary Hyperparathyroidism * Monitor daily intake, output and renal panel to adjust medications and dialysis prescription as indicated Patient is waiting for outpatient arrangement for outpatient dialysis. He has [employer] insurance, trying to get dialysis unit that accept his insurance closer to his home. Patient seems to be set up for transportation at home. He has electric wheelchair and able to move from bed to chair. He has a [employer]ckenzie lift at home. Option of home hemodialysis was discussed with him since his daughter lives with him and she is a retired RN. He is interested on home dialysis as well. Patient is bedridden with paraplegia however he is interested to continuedialysis at this point. Urology was consulted for persistent hydronephrosis and bilateral ureteral stents, urology recommended to transfer to tertiary care center considering his comorbidities. This can be done as outpatient. Patient may not have any renal recovery since he has advanced CKD with creatinine has been around 6 mg/dL over the last 1 year Documented By: Norma Lopez MD 10/26/23 1216 Signed By: <Electronically signed by MD Norma Lopez> 10/26/23 1223 [facility] Work Phone: [phone] Progress note Author Dionicio Donald [facility] October 26, 2023 10:46am Note Date/Time October 26, 2023 10:4 0am [facility] [address] [place] [address] Hospitalist Progress Note Signed Patient: Matt Honeycutt MR#: [id number] : 1950 Acct:[id number] Age/Sex: 73 / M Adm Date: 4 Loc: Room: [address] [place] [address] Type: ADM IN Attending Dr: Dionicio Donald MD Copies to: ~ Date of Service: 10/26/2023 Subjective Subjective Narrative: Patient is a 73-year-old male, was transferred to us from [facility]. Hepresented there about 2 days ago, complaining of weakness, lethargy. Evaluationrevealed presence of SHAWN on CKD stage IV-V. Arrangements were made for him to be transferred to [facility] but the bed was not available. Patient spent some 31 hours in the emergency department. Eventually we were called to see whether we can assist. He had been recently treated for recurrent urinary tract infections in the setting of chronic urinary catheter. He appears to have bilateral renal stents in place. He is a rather poor historian. At the time my examination the patient is feeling a bit better. His mental status feels somewhat improved. He has no acute pain or discomfort. Seen and examined Little lethargic Clinically stable Mild SOB No chest pain Exam Physical Exam Vital Signs: Temp Pulse Resp BP Pulse Ox O2 Del Method O2 Flow Rate 99 F 97 24 129/60 100 Nasal Cannula 3 10/26/23 08:00 10/26/23 08:00 10/26/23 08:00 10/26/23 08:00 10/26/23 08:00 10/26/23 09:08 10/26/23 09:08 Narrative: General patient laying in bed in no acute distress alert awake oriented x3 HEENT PERRLA Neck supple no JVD no carotid bruit CVS S1-S2 regular rate and rhythm no murmur no gallop Chest diminished breath sounds bilateral Abdomen soft bowel sounds normoactive no rebound no guarding Extremities no stenosis no clubbing +480 Musculoskeletal exam normal no joint effusion Neurologic exam oriented x3 alert awake no focal left Psychiatry: Normal insight and judgment Skin: no rash or lesions Objective Lab Results 10/23/23 05:54 10/26/23 04:43 Meds Allergies and Active Meds Allergies penicillin G Allergy (Unknown, Verified 10/22/23 01:36) Nausea sulfamethoxazole [From Bactrim] Allergy (Unknown, Verified 10/22/23 01:36) Nausea trimethoprim [From Bactrim] Allergy (Unknown, Verified 10/22/23 01:36) Nausea Penicillins Allergy (Verified 10/22/23 01:36) Hives Active Meds: Active Medications Generic Name Dose Route Start Last Admin Trade Name Freq PRN Reason Stop Dose Admin Acetaminophen 650 mg 10/22/23 22:13 10/25/23 21:50 Acetaminophen 325 Mg Tablet PO 10/21/24 22:12 650 mg Q6H PRN Administration Pain Scale 1 - 5 Albuterol 2 puff 10/23/23 13:42 Albuterol Hfa 60 Puff/8 Gram Inhaler INHALATION 10/22/24 13:41 Q6H PRN Shortness Of Breath Or Wheezing Aspirin 81 mg 10/24/23 09:00 10/26/23 09:03 Aspirin 81 Mg Tab.Chew PO 10/23/24 08:59 81 mg DAILY DELFIN Administration Atorvastatin Calcium 80 mg 10/24/23 09:00 10/26/23 09:03 Atorvastatin 80 Mg Tablet PO 10/23/24 08:59 80 mg DAILY DELFIN Administration Carvedilol 12.5 mg 10/23/23 17:00 10/26/23 09:03 Carvedilol 12.5 Mg Tablet PO 10/22/24 16:59 12.5 mg BID.WITH.MEALS DELFIN Administration Docusate Sodium 100 mg 10/23/23 21:00 10/26/23 09:04 Docusate 100 Mg Capsule PO 10/22/24 20:59 100 mg BID DELFIN Administration Ferrous Sulfate 324 mg 10/24/23 09:00 10/26/23 09:04 Ferrous Sulfate 324 Mg Tablet. PO 10/23/24 08:59 324 mg DAILY DELFIN Administration Finasteride 5 mg 10/24/23 09:00 10/26/23 09:04 Finasteride 5 Mg Tablet PO 10/23/24 08:59 5 mg DAILY DELFIN Administration Fluconazole 1 each 10/23/23 15:11 Fluconazole - Pharmacy Dosing IV ONCE PRN ZZ.Pharmacy Consult Protocol Fluticasone Propionate 1 puff 10/23/23 21:00 10/26/23 06:10 Fluticasone Propionate 44 120 Puff/10.6 Gm Inhaler INHALATION 10/22/24 20:59 1 puff BID DELFIN Administration Furosemide 80 mg 10/24/23 16:00 10/26/23 09:03 Furosemide 80 Mg Tablet PO 10/23/24 15:59 80 mg BID@0800,1600 DELFIN Administration Heparin Sodium (Porcine) 5,000 unit 10/22/23 06:00 10/26/23 06:34 Heparin 5,000 Unit/Ml Vial SUBCUT 10/21/24 05:59 5,000 unit Q8HR DELFIN Administration Heparin Sodium (Porcine) 2,000 unit 10/22/23 11:47 10/24/23 10:57 Heparin 10,000 Unit/10 Ml Vial IV 10/21/24 11:46 2,000 unit PRN PRN Administration Dialysis Heparin Sodium (Porcine) 2,600 unit 10/23/23 11:30 10/24/23 10:57 Heparin 10,000 Unit/10 Ml Vial IV 10/22/24 11:29 2,600 unit PRN PRN Administration Dialysis Heparin Sodium (Porcine) 2,000 unit 10/24/23 09:08 Heparin 10,000 Unit/10 Ml Vial IV 10/23/24 09:07 PRN PRN Dialysis Heparin Sodium (Porcine) 1,000 unit 10/24/23 09:08 10/24/23 10:58 Heparin 10,000 Unit/10 Ml Vial IV 10/23/24 09:07 1,000 unit PRN PRN Administration Dialysis Sodium Chloride 1,000 mls @ 0 mls/hr 10/22/23 11:47 10/24/23 10:56 0.9% Sodium Chloride 1,000 Ml MISCELLANE 10/21/24 11:46 999 mls/hr .Q0M PRN Administration Dialysis As Directed Meropenem 0.5 gm in 100 mls @ 200 mls/hr 10/23/23 15:30 10/25/23 16:07 Merrem IV 200 mls/hr Q24H DELFIN Administration Albumin Human 25 gm in 100 mls @ 200 mls/hr 10/24/23 11:31 10/24/23 12:41 Albuminar-25 IV 10/23/24 11:30 200 mls/hr PRN PRN Administration Dialysis Insulin Aspart 0 units 10/22/23 08:00 10/26/23 09:02 Insulin Aspart 300 Units/3 Ml Insuln.Pen SUBCUT 10/21/24 07:59 Not Given TID.WM.HS [facility] Protocol Insulin Glargine 12 units 10/23/23 22:00 10/25/23 21:50 Insulin Glargine 300 Units/3 Ml Insuln.Pen SUBCUT 10/22/24 21:59 12 units QHS DELFIN Administration Levothyroxine Sodium 75 mcg 10/24/23 06:30 10/26/23 09:03 Levothyroxine 75 Mcg Tablet PO 10/23/24 06:29 75 mcg DAILY@0630 DELFIN Administration Lidocaine HCl 0.1 ml 10/22/23 10:44 Lidocaine 1% 50 Ml Vial INTRADERMA PREOP PRN Venipuncture x 1 Dose Loratadine 10 mg 10/23/23 13:42 Loratadine 10 Mg Tablet PO 10/22/24 13:41 Q48HR PRN Allergy Symptoms Magnesium Oxide 400 mg 10/22/23 15:00 10/26/23 09:04 Magnesium Oxide 400 Mg Tablet PO 10/21/24 14:59 400 mg DAILY DELFIN Administration Metoprolol Succinate 12.5 mg 10/22/23 15:00 10/26/23 09:04 Metoprolol Succinate 25 Mg Tab.Er.24h PO 10/21/24 14:59 12.5 mg DAILY [facility] Administration Multi-Ingredient Cream 1 applic 10/24/23 09:00 10/26/23 10:05 Lanolin Alcohol/Mo/W.Pet/[place] (Minerin) 454 Gm Jar TOPICAL 10/23/24 08:59 1 applic DAILY [facility] Administration Nitroglycerin 0.4 mg 10/23/23 13:42 Nitroglycerin 0.4 Mg Tab.Subl SUBLINGUAL 10/22/24 13:41 Q5M PRN Chest Pain Pantoprazole Sodium 40 mg 10/24/23 09:00 10/26/23 09:05 Pantoprazole 40 Mg Tablet.Dr PO 10/23/24 08:59 40 mg DAILY DEL[facility] Administration Polyethylene Glycol 17 gm 10/23/23 21:00 10/26/23 09:05 Polyethylene Glycol 3350 17 Gm Powd.Pack PO 10/22/24 20:59 Not Given BID DELFIN Simethicone 80 mg 10/23/23 13:42 Simethicone 80 Mg Tab.Chew PO 10/22/24 13:41 BID PRN (Drug) Ingestion Sodium Chloride 0 ml 10/22/23 11:47 10/24/23 10:56 Sodium Chloride 0.9 % 10 Ml Syringe IV-PUSH 10/21/24 11:46 40 ml PRN PRN Administration Flush Tolterodine Tartrate 2 mg 10/24/23 09:00 10/26/23 09:05 Tolterodine 2 Mg Cap.Er.24h PO 10/23/24 08:59 2 mg DAILY [facility] Administration Triamcinolone Acetonide 1 applic 10/23/23 21:00 10/26/23 09:05 Triamcinolone 0.5% Cream 15 Gm Tube TOPICAL 10/22/24 20:59 1 applic BID DELFIN Administration Venlafaxine HCl 37.5 mg 10/23/23 21:00 10/26/23 09:05 Venlafaxine 37.5 Mg Tablet PO 10/22/24 20:59 37.5 mg BID DELFIN Administration Vitamin D 50 mcg 10/24/23 09:00 10/26/23 09:04 Cholecalciferol 25 Mcg (1,000 Units) Tablet PO 10/23/24 08:59 50 mcg DAILY [facility] Administration Zinc Oxide 1 applic 10/23/23 21:00 10/26/23 10:05 Zinc Oxide 20% Ointment 56 Gm Tube TOPICAL 10/22/24 20:59 1 applic BID DELFIN Administration A&P - Hospitalist Assessment/Plan (1) Acute on chronic renal failure: (2) Hypertension: (3) CHF (congestive heart failure): (4) Hypothyroid: (5) Depression: (6) PTSD (post-traumatic stress disorder): (7) BPH (benign prostatic hyperplasia): (8) Morbid obesity: Plan Assessment and plan Anasarca Volume overload Acute congestive heart Acute on Chronic renal failure/ now ESRD End-stage renal disease Seen and examined Clinically stable Slightly lethargic today Mild SOB ON No fever On NC Saturation is 92% No fever Culture grew Elizabeth Blood cultures are negative Discontinue meropenem Dialysis tomorrow Echocardiogram The left ventricular size, thickness and function are normal Ejection Fraction = 60-65%. Apical aneurysm with dyskinesia is noted No left ventricular thrombus or mass is seen. There is left ventricular diastolic dysfunction. There is no prior echocardiogram noted for this patient. Nephrology is following Cardiology is following You will need outpatient dialysis arrangement, [facility] Social [facility] consult [place] arrhythmias: Off amiodarone infusion/ Cardiology is following Yeast UTI: Add fluconazole 200 mg daily DVT prophylaxis heparin Obesity class I: Life style modification Diabetes mellitus type 2: Resume insulin Lantus/insulin sliding HPL: Lipitor daily Hypertension: BP is low side A-fib:Amiodarone daily Documented By: Dionicio Donald MD 10/26/23 1037 Signed By: <Electronically signed by Dionicio Donald MD> 10/26/23 8659 [facility] Work Phone: [phone]) 396-633707-13-2024 Progress note Author Dionicio Donald [facility] October 25, 2023 12:15pm Note Date/Time October 24, 2023 11:0 7am [facility] [address] [place] [address] Hospitalist Progress Note Signed with Vijay Patient: Matt Honeycutt MR#: [id number] : 1950 Acct:[id number] Age/Sex: 73 / M Adm Date: 4 Loc: Room: [address] [place] [address] Type: ADM IN Attending Dr: Dionicio Donald MD Copies to: ~ ADDENDUM1 Please note that in the assessment and plan bilateral BKA was an error, patient does not have bilateral BKA, Addendum Documented By: Dionicio Donald MD 10/25/23 1215 Addendum Signed By: <Electronically signed by Dionicio Donald MD> 10/25/23 1215 Date of Service: 10/24/2023 Subjective Subjective Narrative: Patient is a 73-year-old male, was transferred to us from [facility]. Hepresented there about 2 days ago, complaining of weakness, lethargy. Evaluationrevealed presence of SHAWN on CKD stage IV-V. Arrangements were made for him to be transferred to [facility] but the bed was not available. Patient spent some 31 hours in the emergency department. Eventually we were called to see whether we can assist. He had been recently treated for recurrent urinary tract infections in the setting of chronic urinary catheter. He appears to have bilateral renal stents in place. He is a rather poor historian. At the time my examination the patient is feeling a bit better. His mental status feels somewhat improved. He has no acute pain or discomfort. Seen and examined Clinically stable Still c/w SOB Leg edema + 3 NO chest pain No fever Exam Physical Exam Vital Signs: Temp Pulse Resp BP Pulse Ox O2 Del Method O2 Flow Rate 98 F 65 16 92/55 L 98 Room Air 3 10/24/23 08:00 10/24/23 11:00 10/24/23 08:00 10/24/23 11:00 10/24/23 08:00 10/24/23 08:25 10/22/23 16:31 Narrative: General patient laying in bed in no acute distress alert awake oriented x3 HEENT PERRLA Neck supple no JVD no carotid bruit CVS S1-S2 regular rate and rhythm no murmur no gallop Chest diminished breath sounds bilateral Abdomen soft bowel sounds normoactive no rebound no guarding Extremities no stenosis no clubbing +480 Musculoskeletal exam normal no joint effusion Neurologic exam oriented x3 alert awake no focal left Psychiatry: Normal insight and judgment Skin: no rash or lesions Objective Lab Results 10/23/23 05:54 10/24/23 07:00 Microbiology Results Microbiology 10/22/23 06:15 [place] Urine Culture - Preliminary Yeast Like Organism Meds Allergies and Active Meds Allergies penicillin G Allergy (Unknown, Verified 10/22/23 01:36) Nausea sulfamethoxazole [From Bactrim] Allergy (Unknown, Verified 10/22/23 01:36) Nausea trimethoprim [From Bactrim] Allergy (Unknown, Verified 10/22/23 01:36) Nausea Penicillins Allergy (Verified 10/22/23 01:36) Hives Active Meds: Active Medications Generic Name Dose Route Start Last Admin Trade Name Freq PRN Reason Stop Dose Admin Acetaminophen 650 mg 10/22/23 22:13 10/23/23 12:09 Acetaminophen 325 Mg Tablet PO 10/21/24 22:12 650 mg Q6H PRN Administration Pain Scale 1 - 5 Albuterol 2 puff 10/23/23 13:42 Albuterol Hfa 60 Puff/8 Gram Inhaler INHALATION 10/22/24 13:41 Q6H PRN Shortness Of Breath Or Wheezing Aspirin 81 mg 10/24/23 09:00 Aspirin 81 Mg Tab.Chew PO 10/23/24 08:59 DAILY [facility] Atorvastatin Calcium 80 mg 10/24/23 09:00 Atorvastatin 80 Mg Tablet PO 10/23/24 08:59 DAILY [facility] Carvedilol 12.5 mg 10/23/23 17:00 10/24/23 08:16 Carvedilol 12.5 Mg Tablet PO 10/22/24 16:59 12.5 mg BID.WITH.MEALS [facility] Administration Docusate Sodium 100 mg 10/23/23 21:00 10/24/23 08:17 Docusate 100 Mg Capsule PO 10/22/24 20:59 Not Given BID [facility] Ferrous Sulfate 324 mg 10/24/23 09:00 Ferrous Sulfate 324 Mg Tablet. PO 10/23/24 08:59 DAILY [facility] Finasteride 5 mg 10/24/23 09:00 Finasteride 5 Mg Tablet PO 10/23/24 08:59 DAILY [facility] Fluconazole 1 each 10/23/23 15:11 Fluconazole - Pharmacy Dosing IV ONCE PRN ZZ.Pharmacy Consult Protocol Fluticasone Propionate 1 puff 10/23/23 21:00 10/24/23 08:57 Fluticasone Propionate 44 120 Puff/10.6 Gm Inhaler INHALATION 10/22/24 20:59 1 puff BID [facility] Administration Heparin Sodium (Porcine) 5,000 unit 10/22/23 06:00 10/24/23 06:11 Heparin 5,000 Unit/Ml Vial SUBCUT 10/21/24 05:59 5,000 unit Q8HR [facility] Administration Heparin Sodium (Porcine) 2,000 unit 10/22/23 11:47 10/24/23 10:57 Heparin 10,000 Unit/10 Ml Vial IV 10/21/24 11:46 2,000 unit PRN PRN Administration Dialysis Heparin Sodium (Porcine) 2,600 unit 10/23/23 11:30 10/24/23 10:57 Heparin 10,000 Unit/10 Ml Vial IV 10/22/24 11:29 2,600 unit PRN PRN Administration Dialysis Heparin Sodium (Porcine) 2,000 unit 10/24/23 09:08 Heparin 10,000 Unit/10 Ml Vial IV 10/23/24 09:07 PRN PRN Dialysis Heparin Sodium (Porcine) 1,000 unit 10/24/23 09:08 10/24/23 10:58 Heparin 10,000 Unit/10 Ml Vial IV 10/23/24 09:07 1,000 unit PRN PRN Administration Dialysis Sodium Chloride 1,000 mls @ 0 mls/hr 10/22/23 11:47 10/24/23 10:56 0.9% Sodium Chloride 1,000 Ml MISCELLANE 10/21/24 11:46 999 mls/hr .Q0M PRN Administration Dialysis As Directed Meropenem 0.5 gm in 100 mls @ 200 mls/hr 10/23/23 15:30 10/23/23 15:40 Merrem IV 200 mls/hr Q24H [facility] Administration Amiodarone HCl 450 mg/ 250 mls @ 16.667 mls/hr 10/23/23 18:15 10/24/23 10:42 Dextrose IV 10/22/24 18:14 0.5 mg/min .Q15H [facility] 16.67 mls/hr Administration 0.5 MG/MIN Insulin Aspart 0 units 10/22/23 08:00 10/24/23 08:16 Insulin Aspart 300 Units/3 Ml Insuln.Pen SUBCUT 10/21/24 07:59 Not Given TID.WM.HS [facility] Protocol Insulin Glargine 12 units 10/23/23 22:00 10/23/23 21:21 Insulin Glargine 300 Units/3 Ml Insuln.Pen SUBCUT 10/22/24 21:59 12 units QHS [facility] Administration Levothyroxine Sodium 75 mcg 10/24/23 06:30 10/24/23 06:11 Levothyroxine 75 Mcg Tablet PO 10/23/24 06:29 75 mcg DAILY@0630 [facility] Administration Lidocaine HCl 0.1 ml 10/22/23 10:44 Lidocaine 1% 50 Ml Vial INTRADERMA PREOP PRN Venipuncture x 1 Dose Loratadine 10 mg 10/23/23 13:42 Loratadine 10 Mg Tablet PO 10/22/24 13:41 Q48HR PRN Allergy Symptoms Magnesium Oxide 400 mg 10/22/23 15:00 10/23/23 15:26 Magnesium Oxide 400 Mg Tablet PO 10/21/24 14:59 400 mg DAILY [facility] Administration Metoprolol Succinate 12.5 mg 10/22/23 15:00 10/23/23 09:00 Metoprolol Succinate 25 Mg Tab.Er.24h PO 10/21/24 14:59 Not Given DAILY [facility] Multi-Ingredient Cream 1 applic 10/24/23 09:00 10/24/23 08:17 Lanolin Alcohol/Mo/W.Pet/[place] (Minerin) 454 Gm Jar TOPICAL 10/23/24 08:59 1 applic DAILY [facility] Administration Nitroglycerin 0.4 mg 10/23/23 13:42 Nitroglycerin 0.4 Mg Tab.Subl SUBLINGUAL 10/22/24 13:41 Q5M PRN Chest Pain Pantoprazole Sodium 40 mg 10/24/23 09:00 Pantoprazole 40 Mg Tablet.Dr PO 10/23/24 08:59 DAILY [facility] Polyethylene Glycol 17 gm 10/23/23 21:00 10/24/23 08:17 Polyethylene Glycol 3350 17 Gm Powd.Pack PO 10/22/24 20:59 Not Given BID [facility] Simethicone 80 mg 10/23/23 13:42 Simethicone 80 Mg Tab.Chew PO 10/22/24 13:41 BID PRN (Drug) Ingestion Sodium Chloride 0 ml 10/22/23 11:47 10/24/23 10:56 Sodium Chloride 0.9 % 10 Ml Syringe IV-PUSH 10/21/24 11:46 40 ml PRN PRN Administration Flush Tolterodine Tartrate 2 mg 10/24/23 09:00 Tolterodine 2 Mg Cap.Er.24h PO 10/23/24 08:59 DAILY [facility] Triamcinolone Acetonide 1 applic 10/23/23 21:00 10/24/23 08:18 Triamcinolone 0.5% Cream 15 Gm Tube TOPICAL 10/22/24 20:59 Not Given BID [facility] Venlafaxine HCl 37.5 mg 10/23/23 21:00 10/24/23 08:18 Venlafaxine 37.5 Mg Tablet PO 10/22/24 20:59 37.5 mg BID [facility] Administration Vitamin D 50 mcg 10/24/23 09:00 Cholecalciferol 25 Mcg (1,000 Units) Tablet PO 10/23/24 08:59 DAILY [facility] Zinc Oxide 1 applic 10/23/23 21:00 10/24/23 08:18 Zinc Oxide 20% Ointment 56 Gm Tube TOPICAL 10/22/24 20:59 1 applic BID [facility] Administration A&P - Hospitalist Assessment/Plan (1) Acute kidney injury: Plan: \ (2) Acute on chronic renal failure: (3) Hypertension: (4) CHF (congestive heart failure): (5) Hypothyroid: (6) Depression: (7) PTSD (post-traumatic stress disorder): (8) BPH (benign prostatic hyperplasia): (9) Morbid obesity: Plan Assessment and plan Anasarca Volume overload Acute congestive heart end-stage renal disease Seen and examined Clinically slightly better Still Has SOB and leg edema +3 No chest pain No fever Saturation is 98% Dialysis again today Echocardiogram The left ventricular size, thickness and function are normal Ejection Fraction = 60-65%. Apical aneurysm with dyskinesia is noted No left ventricular thrombus or mass is seen. There is left ventricular diastolic dysfunction. There is no prior echocardiogram noted for this patient. Nephrology is following Cardiology is following [place] arrhythmias: On Amiodarone / Cardiology is following Yeast UTI: Add fluconazole 200 mg daily DVT prophylaxis heparin Obesity class I: Life style modification Diabetes mellitus type 2: Resume insulin Lantus/insulin sliding HPL: Lipitor daily Hypertension: BP is low side A-fib:Amiodarone daily Bilateral BKA Documented By: Dionicio Donald MD 10/24/23 1100 Signed By: <Electronically signed by Dionicio Donald MD> 10/24/23 1316 [facility] Work Phone: [phone]) [phone] Progress note Author Dionicio Donald [facility] October 25, 2023 12:14pm Note Date/Time October 25, 2023 12:1 4pm [facility] [address] [place] [address] Hospitalist Progress Note Signed Patient: Matt Honeycutt MR#: [id number] : 1950 Acct:[id number] Age/Sex: 73 / M Adm Date: 4 Loc: Room: [address] [place] [address] Type: ADM IN Attending Dr: Dionicio Donald MD Copies to: ~ Date of Service: 10/25/2023 Subjective Subjective Narrative: Patient is a 73-year-old male, was transferred to us from [facility]. Hepresented there about 2 days ago, complaining of weakness, lethargy. Evaluationrevealed presence of SHAWN on CKD stage IV-V. Arrangements were made for him to be transferred to [facility] but the bed was not available. Patient spent some 31 hours in the emergency department. Eventually we were called to see whether we can assist. He had been recently treated for recurrent urinary tract infections in the setting of chronic urinary catheter. He appears to have bilateral renal stents in place. He is a rather poor historian. At the time my examination the patient is feeling a bit better. His mental status feels somewhat improved. He has no acute pain or discomfort. Seen and examined Clinically stable No SOB No chest pain Exam Physical Exam Vital Signs: Temp Pulse Resp BP Pulse Ox O2 Del Method O2 Flow Rate 97.7 F 75 22 107/52 L 97 Room Air 3 10/24/23 23:32 10/25/23 04:00 10/25/23 04:00 10/25/23 05:55 10/24/23 23:32 10/25/23 04:00 10/22/23 16:31 Narrative: General patient laying in bed in no acute distress alert awake oriented x3 HEENT PERRLA Neck supple no JVD no carotid bruit CVS S1-S2 regular rate and rhythm no murmur no gallop Chest diminished breath sounds bilateral Abdomen soft bowel sounds normoactive no rebound no guarding Extremities no stenosis no clubbing +480 Musculoskeletal exam normal no joint effusion Neurologic exam oriented x3 alert awake no focal left Psychiatry: Normal insight and judgment Skin: no rash or lesions Objective Lab Results 10/23/23 05:54 10/24/23 07:00 Microbiology Results Microbiology 10/22/23 06:15 [place] Urine Culture - Final Elizabeth albicans Meds Allergies and Active Meds Allergies penicillin G Allergy (Unknown, Verified 10/22/23 01:36) Nausea sulfamethoxazole [From Bactrim] Allergy (Unknown, Verified 10/22/23 01:36) Nausea trimethoprim [From Bactrim] Allergy (Unknown, Verified 10/22/23 01:36) Nausea Penicillins Allergy (Verified 10/22/23 01:36) Hives Active Meds: Active Medications Generic Name Dose Route Start Last Admin Trade Name Freq PRN Reason Stop Dose Admin Acetaminophen 650 mg 10/22/23 22:13 10/25/23 09:04 Acetaminophen 325 Mg Tablet PO 10/21/24 22:12 650 mg Q6H PRN Administration Pain Scale 1 - 5 Albuterol 2 puff 10/23/23 13:42 Albuterol Hfa 60 Puff/8 Gram Inhaler INHALATION 10/22/24 13:41 Q6H PRN Shortness Of Breath Or Wheezing Aspirin 81 mg 10/24/23 09:00 10/25/23 09:16 Aspirin 81 Mg Tab.Chew PO 10/23/24 08:59 81 mg DAILY [facility] Administration Atorvastatin Calcium 80 mg 10/24/23 09:00 10/25/23 09:02 Atorvastatin 80 Mg Tablet PO 10/23/24 08:59 80 mg DAILY [facility] Administration Carvedilol 12.5 mg 10/23/23 17:00 10/25/23 09:02 Carvedilol 12.5 Mg Tablet PO 10/22/24 16:59 12.5 mg BID.WITH.MEALS [facility] Administration Docusate Sodium 100 mg 10/23/23 21:00 10/25/23 09:07 Docusate 100 Mg Capsule PO 10/22/24 20:59 100 mg BID [facility] Administration Ferrous Sulfate 324 mg 10/24/23 09:00 10/25/23 09:02 Ferrous Sulfate 324 Mg Tablet. PO 10/23/24 08:59 324 mg DAILY [facility] Administration Finasteride 5 mg 10/24/23 09:00 10/25/23 09:14 Finasteride 5 Mg Tablet PO 10/23/24 08:59 5 mg DAILY [facility] Administration Fluconazole 1 each 10/23/23 15:11 Fluconazole - Pharmacy Dosing IV ONCE PRN ZZ.Pharmacy Consult Protocol Fluticasone Propionate 1 puff 10/23/23 21:00 10/25/23 07:51 Fluticasone Propionate 44 120 Puff/10.6 Gm Inhaler INHALATION 10/22/24 20:59 1 puff BID [facility] Administration Furosemide 80 mg 10/24/23 16:00 10/25/23 09:03 Furosemide 80 Mg Tablet PO 10/23/24 15:59 80 mg BID@0800,1600 [facility] Administration Heparin Sodium (Porcine) 5,000 unit 10/22/23 06:00 10/25/23 06:22 Heparin 5,000 Unit/Ml Vial SUBCUT 10/21/24 05:59 5,000 unit Q8HR [facility] Administration Heparin Sodium (Porcine) 2,000 unit 10/22/23 11:47 10/24/23 10:57 Heparin 10,000 Unit/10 Ml Vial IV 10/21/24 11:46 2,000 unit PRN PRN Administration Dialysis Heparin Sodium (Porcine) 2,600 unit 10/23/23 11:30 10/24/23 10:57 Heparin 10,000 Unit/10 Ml Vial IV 10/22/24 11:29 2,600 unit PRN PRN Administration Dialysis Heparin Sodium (Porcine) 2,000 unit 10/24/23 09:08 Heparin 10,000 Unit/10 Ml Vial IV 10/23/24 09:07 PRN PRN Dialysis Heparin Sodium (Porcine) 1,000 unit 10/24/23 09:08 10/24/23 10:58 Heparin 10,000 Unit/10 Ml Vial IV 10/23/24 09:07 1,000 unit PRN PRN Administration Dialysis Sodium Chloride 1,000 mls @ 0 mls/hr 10/22/23 11:47 10/24/23 10:56 0.9% Sodium Chloride 1,000 Ml MISCELLANE 10/21/24 11:46 999 mls/hr .Q0M PRN Administration Dialysis As Directed Meropenem 0.5 gm in 100 mls @ 200 mls/hr 10/23/23 15:30 10/24/23 16:44 Merrem IV 200 mls/hr Q24H [facility] Administration Albumin Human 25 gm in 100 mls @ 200 mls/hr 10/24/23 11:31 10/24/23 12:41 Albuminar-25 IV 10/23/24 11:30 200 mls/hr PRN PRN Administration Dialysis Insulin Aspart 0 units 10/22/23 08:00 10/25/23 08:00 Insulin Aspart 300 Units/3 Ml Insuln.Pen SUBCUT 10/21/24 07:59 Not Given TID.WM.HS [facility] Protocol Insulin Glargine 12 units 10/23/23 22:00 10/24/23 21:40 Insulin Glargine 300 Units/3 Ml Insuln.Pen SUBCUT 10/22/24 21:59 12 units QHS [facility] Administration Levothyroxine Sodium 75 mcg 10/24/23 06:30 10/25/23 06:22 Levothyroxine 75 Mcg Tablet PO 10/23/24 06:29 75 mcg DAILY@0630 [facility] Administration Lidocaine HCl 0.1 ml 10/22/23 10:44 Lidocaine 1% 50 Ml Vial INTRADERMA PREOP PRN Venipuncture x 1 Dose Loratadine 10 mg 10/23/23 13:42 Loratadine 10 Mg Tablet PO 10/22/24 13:41 Q48HR PRN Allergy Symptoms Magnesium Oxide 400 mg 10/22/23 15:00 10/25/23 09:03 Magnesium Oxide 400 Mg Tablet PO 10/21/24 14:59 400 mg DAILY [facility] Administration Metoprolol Succinate 12.5 mg 10/22/23 15:00 10/25/23 09:03 Metoprolol Succinate 25 Mg Tab.Er.24h PO 10/21/24 14:59 12.5 mg DAILY [facility] Administration Multi-Ingredient Cream 1 applic 10/24/23 09:00 10/25/23 09:55 Lanolin Alcohol/Mo/W.Pet/[place] (Minerin) 454 Gm Jar TOPICAL 10/23/24 08:59 1 applic DAILY [facility] Administration Nitroglycerin 0.4 mg 10/23/23 13:42 Nitroglycerin 0.4 Mg Tab.Subl SUBLINGUAL 10/22/24 13:41 Q5M PRN Chest Pain Pantoprazole Sodium 40 mg 10/24/23 09:00 10/25/23 09:14 Pantoprazole 40 Mg Tablet.Dr PO 10/23/24 08:59 40 mg DAILY [facility] Administration Polyethylene Glycol 17 gm 10/23/23 21:00 10/24/23 21:40 Polyethylene Glycol 3350 17 Gm Powd.Pack PO 10/22/24 20:59 Not Given BID [facility] Simethicone 80 mg 10/23/23 13:42 Simethicone 80 Mg Tab.Chew PO 10/22/24 13:41 BID PRN (Drug) Ingestion Sodium Chloride 0 ml 10/22/23 11:47 10/24/23 10:56 Sodium Chloride 0.9 % 10 Ml Syringe IV-PUSH 10/21/24 11:46 40 ml PRN PRN Administration Flush Tolterodine Tartrate 2 mg 10/24/23 09:00 10/25/23 09:03 Tolterodine 2 Mg Cap.Er.24h PO 10/23/24 08:59 2 mg DAILY [facility] Administration Triamcinolone Acetonide 1 applic 10/23/23 21:00 10/25/23 09:55 Triamcinolone 0.5% Cream 15 Gm Tube TOPICAL 10/22/24 20:59 1 applic BID [facility] Administration Venlafaxine HCl 37.5 mg 10/23/23 21:00 10/25/23 09:02 Venlafaxine 37.5 Mg Tablet PO 10/22/24 20:59 37.5 mg BID [facility] Administration Vitamin D 50 mcg 10/24/23 09:00 10/25/23 09:03 Cholecalciferol 25 Mcg (1,000 Units) Tablet PO 10/23/24 08:59 50 mcg DAILY [facility] Administration Zinc Oxide 1 applic 10/23/23 21:00 10/25/23 09:55 Zinc Oxide 20% Ointment 56 Gm Tube TOPICAL 10/22/24 20:59 1 applic BID [facility] Administration A&P - Hospitalist Assessment/Plan (1) Acute kidney injury: Plan: \ (2) Acute on chronic renal failure: (3) Hypertension: (4) CHF (congestive heart failure): (5) Hypothyroid: (6) Depression: (7) PTSD (post-traumatic stress disorder): (8) BPH (benign prostatic hyperplasia): (9) Morbid obesity: Plan Assessment and plan Anasarca Volume overload Acute congestive heart end-stage renal disease Seen and examined Clinically slightly better No complaint Leg edema improving On room air Saturation is 98% Echocardiogram The left ventricular size, thickness and function are normal Ejection Fraction = 60-65%. Apical aneurysm with dyskinesia is noted No left ventricular thrombus or mass is seen. There is left ventricular diastolic dysfunction. There is no prior echocardiogram noted for this patient. Nephrology is following No plan for dialysis at this Plan for tunneled dialysis catheter on Friday He will need outpatient dialysis arranged Nephrology recommended dialysis at home Social service for discharge plan VT arrhythmias: No more runs of VT / off amiodarone amiodarone infusion/switch to oral amiodarone/ cardiology is following Yeast UTI: Add fluconazole 200 mg daily DVT prophylaxis heparin Obesity class I: Life style modification Diabetes mellitus type 2: Resume insulin Lantus/insulin sliding HPL: Lipitor daily Hypertension: BP is low side A-fib:Amiodarone daily Documented By: Dionicio Donald MD 10/25/231210 Signed By: <Electronically signed by Dionicio Donald MD> 10/25/231213 [facility] Work Phone: [phone]) 200-260307-13-2024 Progress note Author Norma Lopez [facility] October 25, 2023 12:03pm Note Date/Time October 25, 2023 11:5 9am [facility] [address] [place] [address] Nephrology Progress Note Signed Patient: Matt Honeycutt MR#: [id number] : 1950 Acct:[id number] Age/Sex: 73 / M Adm Date: 4 Loc: Room: [address] [place] [address] Type: ADM IN Attending Dr: Dionicio Donald MD Copies to: ~ Date of Service: 10/25/2023 Subjective Subjective Narrative: Mr. Honeycutt is a 73-year-old male with medical history of CKD stage 5 with serum creatinine between 5 and 6 mg/dL since 2022 related to obstructive uropathy, DM,HTN, hypothyroidism, CAD, paraplegia requiring chronic indwelling catheter. [facility] He was seen by our service on August 2022 when he presented with SHAWN with creatinine 6 mg/dL in the setting of obstructive uropathy. He was started on hemodialysis with tunneled hemodialysiscatheter and then was referred to [facility] in [place] for nephrostomy. He presentedto [facility] on October 18 with progressive shortness of breath, weakness and lethargy and he was found to have SHAWN on top of CKD stage V with doubling of serum creatinine up to 10 mg/dL and BUN 193 mg/dL. Patient was supposed to be transferred to [facility] however there is no bed. He has been 31-hour at [facility] and subsequently he was transferred to [facility] for assessment and management. Lab today was reviewed showed BUN 192, creatinine 10.75. Patient has significant acidosis with carbon oxide 9.4. He has normal potassium. He has mild volume overload with lower extremity edema. Patient was awake and able to give history however he has mild confusion. He tried to call his daughter who was not able to. 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 All of a sudden he developed uremic symptoms. Patient and daughter agreed to proceed with dialysis. Interval history: Patient still boarding in the ICU as there is no available bed outside. He had 3 hemodialysis treatments [id number] with improvement of uremia and acidosis. Edema has markedly improved with ultrafiltration as well. Patient is awake and able to communicate. Pulse ox 97% in room air. He still has sinus rhythm currently on oral amiodarone with no more V. tach's. Patient had temporary hemodialysis catheter. Eventually will need tunneled hemodialysis catheter possibly by Friday. Exam Physical Exam Vital Signs: Temp Pulse Resp BP Pulse Ox O2 Del Method O2 Flow Rate 36.5 C 75 22 107/52 L 97 Room Air 3 10/24/23 23:32 10/25/23 04:00 10/25/23 04:00 10/25/23 05:55 10/24/23 23:32 10/25/23 04:00 10/22/23 16:31 Narrative: General: Sitting up in bed, appears uncomfortable HEENT: Atraumatic, normocephalic. No jaundice, Moist mucous membranes. He has mild pallor. Cardiovascular: Distant heart sound, regular rate and rhythm, no murmur Respiratory: Diminished bilateral air entry, bilateral diffuse wheezing GI: Nondistended, nontender, no palpable masses or organs. Normal bowel sounds Extremities: 1+ edema, no cyanosis Neurological: Awake, alert, oriented x 3. Patient is bedridden with paraplegia. Psychiatric: Cooperative, normal mood and affect Objective Intake and Output I&O: Intake & Output 10/22/23 10/23/23 10/24/23 10/25/23 23:59 23:59 23:59 23:59 Intake Total 900 / 900 1270 / 1270 1060 / 1060 360 / 360 Output Total 3010 / 3010 2932 / 2932 3251 / 3251 225 / 225 Balance -2110 / -2110 -1662 / -1662 -2191 / -2191 135 / 135 Weight 134.2 kg Meds and Allergies Meds: Active Medications Acetaminophen (Acetaminophen 325 Mg Tablet) 650 mg PO Q6H PRN PRN Reason: Pain Scale 1 - 5 Stop: 10/21/24 22:12 Last Admin: 10/25/23 09:04 Dose: 650 mg Albuterol (Albuterol Hfa 60 Puff/8 Gram Inhaler) 2 puff INHALATION Q6H PRN PRN Reason: Shortness Of Breath Or Wheezing Stop: 10/22/24 13:41 Aspirin (Aspirin 81 Mg Tab.Chew) 81 mg PO DAILY [facility] Stop: 10/23/24 08:59 Last Admin: 10/25/23 09:16 Dose: 81 mg Atorvastatin Calcium (Atorvastatin 80 Mg Tablet) 80 mg PO DAILY [facility] Stop: 10/23/24 08:59 Last Admin: 10/25/23 09:02 Dose: 80 mg Carvedilol (Carvedilol 12.5 Mg Tablet) 12.5 mg PO BID.WITH.MEALS [facility] Stop: 10/22/24 16:59 Last Admin: 10/25/23 09:02 Dose: 12.5 mg Docusate Sodium (Docusate 100 Mg Capsule) 100 mg PO BID [facility] [facility] Stop: 10/22/24 20:59 Last Admin: 10/25/23 09:07 Dose: 100 mg Ferrous Sulfate (Ferrous Sulfate 324 Mg Tablet.Dr) 324 mg PO DAILY [facility] Stop: 10/23/24 08:59 Last Admin: 10/25/23 09:02 Dose: 324 mg Finasteride (Finasteride 5 Mg Tablet) 5 mg PO DAILY [facility] Stop: 10/23/24 08:59 Last Admin: 10/25/23 09:14 Dose: 5 mg Fluconazole (Fluconazole - Pharmacy Dosing) 1 each IV ONCE PRN; Protocol PRN Reason: ZZ.Pharmacy Consult Fluticasone Propionate (Fluticasone Propionate 44 120 Puff/10.6 Gm Inhaler) 1 puff INHALATION BID [facility] Stop: 10/22/24 20:59 Last Admin: 10/25/23 07:51 Dose: 1 puff Furosemide (Furosemide 80 Mg Tablet) 80 mg PO BID@0800,1600 [facility] Stop: 10/23/24 15:59 Last Admin: 10/25/23 09:03 Dose: 80 mg Heparin Sodium (Porcine) (Heparin 5,000 Unit/Ml Vial) 5,000 unit SUBCUT Q8HR [facility] Stop: 10/21/24 05:59 Last Admin: 10/25/23 06:22 Dose: 5,000 unit Heparin Sodium (Porcine) (Heparin 10,000 Unit/10 Ml Vial) 2,000 unit IV PRN PRN PRN Reason: Dialysis Stop: 10/21/24 11:46 Last Admin: 10/24/23 10:57 Dose: 2,000 unit Heparin Sodium (Porcine) (Heparin 10,000 Unit/10 Ml Vial) 2,600 unit IV PRN PRN PRN Reason: Dialysis Stop: 10/22/24 11:29 Last Admin: 10/24/23 10:57 Dose: 2,600 unit Heparin Sodium (Porcine) (Heparin 10,000 Unit/10 Ml Vial) 2,000 unit IV PRN PRN PRN Reason: Dialysis Stop: 10/23/24 09:07 Heparin Sodium (Porcine) (Heparin 10,000 Unit/10 Ml Vial) 1,000 unit IV PRN PRN PRN Reason: Dialysis Stop: 10/23/24 09:07 Last Admin: 10/24/23 10:58 Dose: 1,000 unit Sodium Chloride (0.9% Sodium Chloride 1,000 Ml) 1,000 mls @ 0 mls/hr MISCELLANE.Q0M PRN PRN Reason: Dialysis Stop: 10/21/24 11:46 Last Admin: 10/24/23 10:56 Dose: 999 mls/hr Meropenem (Merrem) 0.5 gm in 100 mls @ 200 mls/hr IV Q24H [facility] Last Admin: 10/24/23 16:44 Dose: 200 mls/hr Albumin Human (Albuminar-25) 25 gm in 100 mls @ 200 mls/hr IV PRN PRN PRN Reason: Dialysis Stop: 10/23/24 11:30 Last Admin: 10/24/23 12:41 Dose: 200 mls/hr Insulin Aspart (Insulin Aspart 300 Units/3 Ml Insuln.Pen) 0 units SUBCUT TID.WM.HS [facility]; Protocol Stop: 10/21/24 07:59 Last Admin: 10/25/23 08:00 Dose: Not Given Insulin Glargine (Insulin Glargine 300 Units/3 Ml Insuln.Pen) 12 units SUBCUT QHS [facility] Stop: 10/22/24 21:59 Last Admin: 10/24/23 21:40 Dose: 12 units Levothyroxine Sodium (Levothyroxine 75 Mcg Tablet) 75 mcg PO DAILY@0630 [facility] Stop: 10/23/24 06:29 Last Admin: 10/25/23 06:22 Dose: 75 mcg Lidocaine HCl (Lidocaine 1% 50 Ml Vial) 0.1 ml INTRADERMA PREOP PRN PRN Reason: Venipuncture x 1 Dose Loratadine (Loratadine 10 Mg Tablet) 10 mg PO Q48HR PRN PRN Reason: Allergy Symptoms Stop: 10/22/24 13:41 Magnesium Oxide (Magnesium Oxide 400 Mg Tablet) 400 mg PO DAILY [facility] Stop: 10/21/24 14:59 Last Admin: 10/25/23 09:03 Dose: 400 mg Metoprolol Succinate (Metoprolol Succinate 25 Mg Tab.Er.24h) 12.5 mg PO DAILY [facility] Stop: 10/21/24 14:59 Last Admin: 10/25/23 09:03 Dose: 12.5 mg Multi-Ingredient Cream (Lanolin Alcohol/Mo/W.Pet/[place] (Minerin) 454 Gm Jar) 1 applic TOPICAL DAILY [facility] Stop: 10/23/24 08:59 Last Admin: 10/25/23 09:55 Dose: 1 applic Nitroglycerin (Nitroglycerin 0.4 Mg Tab.Subl) 0.4 mg SUBLINGUAL Q5M PRN PRN Reason: Chest Pain Stop: 10/22/24 13:41 Pantoprazole Sodium (Pantoprazole 40 Mg Tablet.Dr) 40 mg PO DAILY [facility] Stop: 10/23/24 08:59 Last Admin: 10/25/23 09:14 Dose: 40 mg Polyethylene Glycol (Polyethylene Glycol 3350 17 Gm Powd.Pack) 17 gm PO BID [facility] Stop: 10/22/24 20:59 Last Admin: 10/24/23 21:40 Dose: Not Given Simethicone (Simethicone 80 Mg Tab.Chew) 80 mg PO BID PRN PRN Reason: (Drug) Ingestion Stop: 10/22/24 13:41 Sodium Chloride (Sodium Chloride 0.9 % 10 Ml Syringe) 0 ml IV-PUSH PRN PRN PRN Reason: Flush Stop: 10/21/24 11:46 Last Admin: 10/24/23 10:56 Dose: 40 ml Tolterodine Tartrate (Tolterodine 2 Mg Cap.Er.24h) 2 mg PO DAILY [facility] Stop: 10/23/24 08:59 Last Admin: 10/25/23 09:03 Dose: 2 mg Triamcinolone Acetonide (Triamcinolone 0.5% Cream 15 Gm Tube) 1 applic TOPICAL BID [facility] Stop: 10/22/24 20:59 Last Admin: 10/25/23 09:55 Dose: 1 applic Venlafaxine HCl (Venlafaxine 37.5 Mg Tablet) 37.5 mg PO BID [facility] Stop: 10/22/24 20:59 Last Admin: 10/25/23 09:02 Dose: 37.5 mg Vitamin D (Cholecalciferol 25 Mcg (1,000 Units) Tablet) 50 mcg PO DAILY [facility] Stop: 10/23/24 08:59 Last Admin: 10/25/23 09:03 Dose: 50 mcg Zinc Oxide (Zinc Oxide 20% Ointment 56 Gm Tube) 1 applic TOPICAL BID [facility] Stop: 10/22/24 20:59 Last Admin: 10/25/23 09:55 Dose: 1 applic Allergies penicillin G Allergy (Unknown, Verified 10/22/23 01:36) Nausea sulfamethoxazole [From Bactrim] Allergy (Unknown, Verified 10/22/23 01:36) Nausea trimethoprim [From Bactrim] Allergy (Unknown, Verified 10/22/23 01:36) Nausea Penicillins Allergy (Verified 10/22/23 01:36) Hives Results - Nephrology Labs 10/23/23 05:54 10/24/23 07:00 Radiology Impressions Impressions - last 24 hours: Any impression(s) listed above is documentation that was entered by the reading physician into a diagnostic report(s) for Matt Honeycutt. I have reviewedthe report(s) and am incorporating any findings in the treatment plan of this patient where applicable. A&P - Nephrology Assessment/Plan (1) ESRD (end stage renal disease): Plan: Patient has progressive CKD currently ESRD. Serum creatinine has been running between 5 and 6 mg/dL over the last year in the setting of obstructive uropathy currently with Wooten catheter. Patient has diabetes as well that contribute toprogression of CKD. He has uremic symptoms with severe metabolic acidosis requiring urgent dialysis (2) Uropathy, obstructive: Plan: He is known to have BPH and left renal hydronephrosis s/p nephrostomy 2021 (3) Metabolic acidosis: Plan: Patient has severe metabolic acidosis seems to be related to advanced CKD. Lactic acid was only 0.8 mmol/L. (4) Type 2 diabetes mellitus with diabetic chronic kidney disease: Plan: Patient has longstanding history of diabetes with diabetic complications. (5) Volume overload: Plan: Bilateral lower extremity edema shortness of breath with volume overload in the setting of CKD (6) Hyperparathyroidism, secondary renal: Plan: Patient has hyperphosphatemia and elevated intact PTH 498 pg/mL in the setting of advanced CKD. Plan * Patient is euvolemic. He has Wooten catheter with 250-300 urine output on furosemide 80 mg p.o. twice a day. General condition has improved. Patient is waiting for tunneled hemodialysis catheter that possibly will be done on Friday since he has no more V. tach's * Continue calcium acetate 1300 mg with each meal for hyperphosphatemia * Continue calcitriol 0.25 mcg 3 times a week for secondary Hyperparathyroidism * Monitor daily intake, output and renal panel to adjust medications and dialysis prescription as indicated Patient is waiting for outpatient arrangement for outpatient dialysis. He has [employer] insurance, trying to get dialysis unit that accept his insurance closer to his home. Patient seems to be set up for transportation at home. He has electric wheelchair and able to move from bed to chair. He has a [employer] lift at home. Option of home hemodialysis was discussed with him since his daughter lives with him and she is a retired RN. He is interested on home dialysis as well. Patient is bedridden with paraplegia however he is interested to continuedialysis at this point. Urology was consulted for persistent hydronephrosis and bilateral ureteral stents, urology recommended to transfer to tertiary care center considering his comorbidities. This can be done as outpatient. It is not clear how much renal recovery will obtain. His creatinine has been around 6 mg/dL over the last 1 year Documented By: Norma Lopez MD 10/25/23 1157 Signed By: <Electronically signed by MD Norma Lopez> 10/25/23 1200 [facility] Work Phone: [phone] 390-134807-12-2024 Progress note Author Norma Lopez [facility] October 24, 2023 12:55pm Note Date/Time October 24, 2023 12:5 5pm [facility] [address] [place] [address] Nephrology Progress Note Signed Patient: Matt Honeycutt MR#: [id number] : 1950 Acct:[id number] Age/Sex: 73 / M Adm Date: 4 Loc: Room: [address] [place] [address] Type: ADM IN Attending Dr: Dionicio Donald MD Copies to: ~ Date of Service: 10/24/2023 Subjective Subjective Narrative: Mr. Honeycutt is a 73-year-old male with medical history of CKD stage 5 with serum creatinine between 5 and 6 mg/dL since 2022 related to obstructive uropathy, DM,HTN, hypothyroidism, CAD, paraplegia requiring chronic indwelling catheter. [facility] He was seen by our service on August 2022 when he presented with SHAWN with creatinine 6 mg/dL in the setting of obstructive uropathy. He was started on hemodialysis with tunneled hemodialysiscatheter and then was referred to [facility] in [place] for nephrostomy. He presentedto [facility] ER on October 18 with progressive shortness of breath, weakness and lethargy and he was found to have SHAWN on top of CKD stage V with doubling of serum creatinine up to 10 mg/dL and BUN 193 mg/dL. Patient was supposed to be transferred to [facility] however there is no bed. He has been 31-hour at [facility] ED and subsequently he was transferred to [facility] for assessment and management. Lab today was reviewed showed BUN 192, creatinine 10.75. Patient has significant acidosis with carbon oxide 9.4. He has normal potassium. He has mild volume overload with lower extremity edema. Patient was awake and able to give history however he has mild confusion. He tried to call his daughter who was not able to. 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 All of a sudden he developed uremic symptoms. Patient and daughter agreed to proceed with dialysis. Interval history: Patient being seen on hemodialysis #3 today. He is awake and he feels comfortable. He has mild shortness of breath. Mental function is improving. He still on amiodarone drip for V. tach however heart rate has been sinus rhythmwith premature atrial complexes. Patient had temporary hemodialysis catheter. Eventually will need tunneled hemodialysis catheter possibly by Friday. Exam Physical Exam Vital Signs: Temp Pulse Resp BP Pulse Ox O2 Del Method O2 Flow Rate 36.1 C L 60 16 100/61 97 Room Air 3 10/24/23 09:50 10/24/23 12:00 10/24/23 09:50 10/24/23 12:00 10/24/23 09:50 10/24/23 09:50 10/22/23 16:31 Narrative: General: Sitting up in bed, appears uncomfortable HEENT: Atraumatic, normocephalic. No jaundice, Moist mucous membranes. He has mild pallor. Cardiovascular: Distant heart sound, regular rate and rhythm, no murmur Respiratory: Diminished bilateral air entry, bilateral diffuse wheezing GI: Nondistended, nontender, no palpable masses or organs. Normal bowel sounds Extremities: 1+ edema, no cyanosis Neurological: Awake, alert, oriented x 3. Patient is bedridden with paraplegia. Psychiatric: Cooperative, normal mood and affect Objective Intake and Output I&O: Intake & Output 10/21/23 10/22/23 10/23/23 10/24/23 23:59 23:59 23:59 23:59 Intake Total 900 / 900 1170 / 1170 600 / 600 Output Total 3010 / 3010 2932 / 2932 200 / 200 Balance -2110 / -2110 -1762 / -1762 400 / 400 Weight 134.2 kg Meds and Allergies Meds: Active Medications Acetaminophen (Acetaminophen 325 Mg Tablet) 650 mg PO Q6H PRN PRN Reason: Pain Scale 1 - 5 Stop: 10/21/24 22:12 Last Admin: 10/24/23 12:39 Dose: 650 mg Albuterol (Albuterol Hfa 60 Puff/8 Gram Inhaler) 2 puff INHALATION Q6H PRN PRN Reason: Shortness Of Breath Or Wheezing Stop: 10/22/24 13:41 Aspirin (Aspirin 81 Mg Tab.Chew) 81 mg PO DAILY [facility] Stop: 10/23/24 08:59 Atorvastatin Calcium (Atorvastatin 80 Mg Tablet) 80 mg PO DAILY [facility] Stop: 10/23/24 08:59 Carvedilol (Carvedilol 12.5 Mg Tablet) 12.5 mg PO BID.WITH.MEALS [facility] Stop: 10/22/24 16:59 Last Admin: 10/24/23 08:16 Dose: 12.5 mg Docusate Sodium (Docusate 100 Mg Capsule) 100 mg PO BID [facility] Stop: 10/22/24 20:59 Last Admin: 10/24/23 08:17 Dose: Not Given Ferrous Sulfate (Ferrous Sulfate 324 Mg Tablet.Dr) 324 mg PO DAILY [facility] Stop: 10/23/24 08:59 Finasteride (Finasteride 5 Mg Tablet) 5 mg PO DAILY [facility] Stop: 10/23/24 08:59 Fluconazole (Fluconazole - Pharmacy Dosing) 1 each IV ONCE PRN; Protocol PRN Reason: ZZ.Pharmacy Consult Fluticasone Propionate (Fluticasone Propionate 44 120 Puff/10.6 Gm Inhaler) 1 puff INHALATION BID [facility] Stop: 10/22/24 20:59 Last Admin: 10/24/23 08:57 Dose: 1 puff Heparin Sodium (Porcine) (Heparin 5,000 Unit/Ml Vial) 5,000 unit SUBCUT Q8HR [facility] Stop: 10/21/24 05:59 Last Admin: 10/24/23 06:11 Dose: 5,000 unit Heparin Sodium (Porcine) (Heparin 10,000 Unit/10 Ml Vial) 2,000 unit IV PRN PRN PRN Reason: Dialysis Stop: 10/21/24 11:46 Last Admin: 10/24/23 10:57 Dose: 2,000 unit Heparin Sodium (Porcine) (Heparin 10,000 Unit/10 Ml Vial) 2,600 unit IV PRN PRN PRN Reason: Dialysis Stop: 10/22/24 11:29 Last Admin: 10/24/23 10:57 Dose: 2,600 unit Heparin Sodium (Porcine) (Heparin 10,000 Unit/10 Ml Vial) 2,000 unit IV PRN PRN PRN Reason: Dialysis Stop: 10/23/24 09:07 Heparin Sodium (Porcine) (Heparin 10,000 Unit/10 Ml Vial) 1,000 unit IV PRN PRN PRN Reason: Dialysis Stop: 10/23/24 09:07 Last Admin: 10/24/23 10:58 Dose: 1,000 unit Sodium Chloride (0.9% Sodium Chloride 1,000 Ml) 1,000 mls @ 0 mls/hr MISCELLANE.Q0M PRN PRN Reason: Dialysis Stop: 10/21/24 11:46 Last Admin: 10/24/23 10:56 Dose: 999 mls/hr Meropenem (Merrem) 0.5 gm in 100 mls @ 200 mls/hr IV Q24H [facility] Last Admin: 10/23/23 15:40 Dose: 200 mls/hr Amiodarone HCl 450 mg/ (Dextrose) 250 mls @ 16.667 mls/hr IV .Q15H [facility] Stop: 10/22/24 18:14 Last Admin: 10/24/23 10:42 Dose: 0.5 mg/min, 16.67 mls/hr Albumin Human (Albuminar-25) 25 gm in 100 mls @ 200 mls/hr IV PRN PRN PRN Reason: Dialysis Stop: 10/23/24 11:30 Last Admin: 10/24/23 12:41 Dose: 200 mls/hr Fluconazole (Diflucan) 200 mg in 100 mls @ 100 mls/hr IV ONCE ONE Stop: 10/24/23 15:59 Insulin Aspart (Insulin Aspart 300 Units/3 Ml Insuln.Pen) 0 units SUBCUT TID.WM.HS [facility]; Protocol Stop: 10/21/24 07:59 Last Admin: 10/24/23 11:41 Dose: Not Given Insulin Glargine (Insulin Glargine 300 Units/3 Ml Insuln.Pen) 12 units SUBCUT QHS [facility] Stop: 10/22/24 21:59 Last Admin: 10/23/23 21:21 Dose: 12 units Levothyroxine Sodium (Levothyroxine 75 Mcg Tablet) 75 mcg PO DAILY@0630 [facility] Stop: 10/23/24 06:29 Last Admin: 10/24/23 06:11 Dose: 75 mcg Lidocaine HCl (Lidocaine 1% 50 Ml Vial) 0.1 ml INTRADERMA PREOP PRN PRN Reason: Venipuncture x 1 Dose Loratadine (Loratadine 10 Mg Tablet) 10 mg PO Q48HR PRN PRN Reason: Allergy Symptoms Stop: 10/22/24 13:41 Magnesium Oxide (Magnesium Oxide 400 Mg Tablet) 400 mg PO DAILY [facility] Stop: 10/21/24 14:59 Last Admin: 10/23/23 15:26 Dose: 400 mg Metoprolol Succinate (Metoprolol Succinate 25 Mg Tab.Er.24h) 12.5 mg PO DAILY [facility] Stop: 10/21/24 14:59 Last Admin: 10/23/23 09:00 Dose: Not Given Multi-Ingredient Cream (Lanolin Alcohol/Mo/W.Pet/[place] (Minerin) 454 Gm Jar) 1 applic TOPICAL DAILY [facility] Stop: 10/23/24 08:59 Last Admin: 10/24/23 08:17 Dose: 1 applic Nitroglycerin (Nitroglycerin 0.4 Mg Tab.Subl) 0.4 mg SUBLINGUAL Q5M PRN PRN Reason: Chest Pain Stop: 10/22/24 13:41 Pantoprazole Sodium (Pantoprazole 40 Mg Tablet.Dr) 40 mg PO DAILY [facility] Stop: 10/23/24 08:59 Polyethylene Glycol (Polyethylene Glycol 3350 17 Gm Powd.Pack) 17 gm PO BID [facility] Stop: 10/22/24 20:59 Last Admin: 10/24/23 08:17 Dose: Not Given Simethicone (Simethicone 80 Mg Tab.Chew) 80 mg PO BID PRN PRN Reason: (Drug) Ingestion Stop: 10/22/24 13:41 Sodium Chloride (Sodium Chloride 0.9 % 10 Ml Syringe) 0 ml IV-PUSH PRN PRN PRN Reason: Flush Stop: 10/21/24 11:46 Last Admin: 10/24/23 10:56 Dose: 40 ml Tolterodine Tartrate (Tolterodine 2 Mg Cap.Er.24h) 2 mg PO DAILY [facility] Stop: 10/23/24 08:59 Triamcinolone Acetonide (Triamcinolone 0.5% Cream 15 Gm Tube) 1 applic TOPICAL BID [facility] Stop: 10/22/24 20:59 Last Admin: 10/24/23 08:18 Dose: Not Given Venlafaxine HCl (Venlafaxine 37.5 Mg Tablet) 37.5 mg PO BID [facility] Stop: 10/22/24 20:59 Last Admin: 10/24/23 08:18 Dose: 37.5 mg Vitamin D (Cholecalciferol 25 Mcg (1,000 Units) Tablet) 50 mcg PO DAILY [facility] Stop: 10/23/24 08:59 Zinc Oxide (Zinc Oxide 20% Ointment 56 Gm Tube) 1 applic TOPICAL BID [facility] Stop: 10/22/24 20:59 Last Admin: 10/24/23 08:18 Dose: 1 applic Allergies penicillin G Allergy (Unknown, Verified 10/22/23 01:36) Nausea sulfamethoxazole [From Bactrim] Allergy (Unknown, Verified 10/22/23 01:36) Nausea trimethoprim [From Bactrim] Allergy (Unknown, Verified 10/22/23 01:36) Nausea Penicillins Allergy (Verified 10/22/23 01:36) Hives Results - Nephrology Labs 10/23/23 05:54 10/24/23 07:00 Labs: 10/24/23 07:00 BUN 95 H D Creatinine 6.64 H D Radiology Impressions Impressions - last 24 hours: Any impression(s) listed above is documentation that was entered by the reading physician into a diagnostic report(s) for Matt Robin. I have reviewedthe report(s) and am incorporating any findings in the treatment plan of this patient where applicable. A&P - Nephrology Assessment/Plan (1) ESRD (end stage renal disease): Plan: Patient has progressive CKD currently ESRD. Serum creatinine has been running between 5 and 6 mg/dL over the last year in the setting of obstructive uropathy currently with Wooten catheter. Patient has diabetes as well that contribute toprogression of CKD. He has uremic symptoms with severe metabolic acidosis requiring urgent dialysis (2) Uropathy, obstructive: Plan: He is known to have BPH and left renal hydronephrosis s/p nephrostomy 2021 (3) Metabolic acidosis: Plan: Patient has severe metabolic acidosis seems to be related to advanced CKD. Lactic acid was only 0.8 mmol/L. (4) Type 2 diabetes mellitus with diabetic chronic kidney disease: Plan: Patient has longstanding history of diabetes with diabetic complications. (5) Volume overload: Plan: Bilateral lower extremity edema shortness of breath with volume overload in the setting of CKD (6) Hyperparathyroidism, secondary renal: Plan: Patient has hyperphosphatemia and elevated intact PTH 498 pg/mL in the setting of advanced CKD. Plan * Hemodialysis #3 today for 210 minutes, 3K bath. 3 L ultrafiltration as tolerated. Blood pressure drops with dialysis, will give albumin 25 g x 1 during dialysis. Patient has significant edema * Continue furosemide 80 mg p.o. twice a day. Patient is urine output 200 to 300 cc daily. * Continue calcium acetate 1300 mg with each meal for hyperphosphatemia * Continue calcitriol 0.25 mcg 3 times a week for secondary Hyperparathyroidism * Arrange for tunneled hemodialysis catheter once patient is stable. Will arrange for outpatient dialysis as well. Patient has [facility] insurance. He lives close to [facility] dialysis unit. * Monitor daily intake, output and renal panel to adjust medications and dialysis prescription as indicated Urology was consulted for persistent hydronephrosis and bilateral ureteral stents, urology recommended to transfer to tertiary care center considering his comorbidities. Patient needs interventional radiologist is not available at [facility]. Originally the patient was supposed to go [facility] in [place] however there was no beds available. Documented By: Norma Lopez MD 10/24/23 1250 Signed By: <Electronically signed by MD Norma Lopez> 10/24/23 1255 [facility] Work Phone: [phone] Progress note Author W Artie [facility] October 23, 2023 5:55pm Note Date/Time October 23, 2023 5:55 pm [facility] [address] [place] [address] Cardiology Progress Note Signed Patient: Matt Honeycutt MR#: [id number] : 1950 Acct:[id number] Age/Sex: 73 / M Adm Date: 4 Loc: Room: [address] [place] [address] Type: ADM IN Attending Dr: Dionicio Donald MD Copies to: ~ Date of Service: 10/23/2023 Subjective Principal diagnosis: Ventricular tachycardia, acute on chronic renal failure Interval history: Mr. Honeycutt is a 73 year old male seen in interventional cardiology consultation at request of hospitalist and patient who was transferred from [facility] with worsening renal failure, edema, seen by vascular surgery and underwent urgent dialysis catheter placement and dialysis today. Patient is now back in the roompostdialysis. He is cognitively impaired at this time cannot answer medical history or questions. There is evidence of 4+ lower extremity and upper extremity edema, Prior to dialysis he had a long run of sustained monomorphic VT that was asymptomatic and converted spontaneously. Baseline rhythm is sinus rhythm with Left bundle branch configuration. Upon review of [facility] EMR and outside imaging and notes, from [facility], and [place] and [facility], patient is chronic renal failure with renal calculus, morbid obesity, history of TIA/stroke in 2019; and for the most part has been bedbound; essential hypertension, hyperlipidemia, iron deficiency anemia, type 2 diabetes, chronic obstructive pulmonary disease, moderate LV dysfunction by 2 separate echoes dating back to 2019 in [place], with ejection fraction of approximately 35% There is 1 note documenting previous PCI of unknown vessel where he is treated with antiplatelet therapies and isosorbide including Ranexa (not appropriate with renal failure) and including statin and aspirin therapy and carvedilol. Patient is not able to answer any questions in regards to his medical history; Idid call his daughter who is medical power of civil litigation attorney, she is unable to ascertain when or where he has had previous cardiac evaluations and interventions. Since patient was transferred from outside hospital ([facility]) we do not have a chest x-ray 2 view. His initial creatinine was 10.75, BUN 192, carbon dioxide 9.4, sodium 131 and potassium 4.3, calcium 8.6, magnesium 1.7 and phosphorus 10.6. Troponins were weakly positive and flat at 77.8 and 80.6 BNP 297 on arrival. 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 He currently is in sinus rhythm; will not institute antiarrhythmic therapy at this juncture. Will institute low-dose metoprolol 12.5 twice daily, and echocardiography; and proceed with ischemic cardiac workupat a later date. Interim evaluation 10/23/2023: Patient is more alert, daughters at bedside, no further ventricular tachycardia now on IV amiodarone as instituted by myself at 6:50 PM yesterday. Had second dialysis today and did well, hemoglobin is 8.6, white count 13.3, platelet count 92,000, creatinine down to 8.87. Patient has a history of bilateral ureteral stents, with right-sided hydronephrosis. Recommendations from a cardiac standpoint as noted above eventual ischemic evaluation on a more elective basis once electrolytes, renal issues have stabilized. I did discuss with daughter possibility of either noninvasive stress perfusion imaging versus cardiac catheterization (contrast load would potentially portend risk of transitioning to permanent dialysis) Exam Physical Exam Vital Signs: Temp Pulse Resp BP Pulse Ox O2 Del Method O2 Flow Rate 98.3 F 99 22 125/59 L 98 Room Air 3 10/23/23 16:00 10/23/23 17:00 10/23/23 17:00 10/23/23 17:00 10/23/23 17:00 10/23/23 17:00 10/22/23 16:31 Const General: in distress and ill appearing Nutritional Appearance: obese Orientation: awake, confused and obtunded Neck Neck: normal visual inspection Resp Effort & Inspection: normal respiratory effort Auscultation: clear to auscultation bilaterally Cardio Rate: regular rate Rhythm: regular rhythm Heart Sounds: no murmurs GI Inspection: obesity Skin General: ecchymosis Lesions: lesion noted Neuro General: patient awake, patient confused and patient obtunded Extrem General: edema (4+ bilateral lower extremity) Laterality: bilaterally Psych Appearance: disheveled Objective Labs 10/23/23 05:54 10/23/23 05:54 Labs: Laboratory Results - last 24 hr 10/22/23 10/22/23 10/23/23 17:36 21:43 05:54 Corrected WBC 13.6 H 13.3 H Uncorrected WBC Count 13.3 H RBC 3.14 L 2.97 L Hgb 9.1 L 8.6 L Hct 26.8 L 25.3 L MCV 85.4 85.0 MCH 28.8 28.9 MCHC 33.8 34.0 RDW 16.1 H 16.5 H Plt Count 84 L 92 L MPV 8.9 8.7 Neut % (Auto) 87.1 Lymph % (Auto) 4.1 Starr % (Auto) 7.9 Eos % (Auto) 0.7 Baso % (Auto) 0.2 Nucleat RBC Rel Count 0.1 Neut # (Auto) 11.6 H Lymph # (Auto) 0.5 L Starr # (Auto) 1.1 H Eos # (Auto) 0.1 Baso # (Auto) 0.0 PHA Creatinine Clear 11.36 10.52 Sodium 133 L 133 L Potassium 3.4 L 3.5 Chloride 98 99 Carbon Dioxide 12.7 L 16.0 L Anion Gap 25.7 H 21.5 H BUN 130 H D 143 H Creatinine 8.21 H D 8.87 H D Est GFR (CKD-EPI) 6.353 5.791 Glucose 133 H 129 H POC Glucose 139 POC Glucose Comment Glu2: cleaned meter Calcium 8.4 L 8.6 Phosphorus 7.6 H Magnesium 2.0 Albumin 2.4 L 10/23/23 10/23/23 13:47 17:11 Corrected WBC Uncorrected WBC Count RBC Hgb Hct MCV MCH MCHC RDW Plt Count MPV Neut % (Auto) Lymph % (Auto) Starr % (Auto) Eos % (Auto) Baso % (Auto) Nucleat RBC Rel Count Neut # (Auto) Lymph # (Auto) Starr # (Auto) Eos # (Auto) Baso # (Auto) PHA Creatinine Clear Sodium Potassium Chloride Carbon Dioxide Anion Gap BUN Creatinine Est GFR (CKD-EPI) Glucose POC Glucose 118 147 POC Glucose Comment Calcium Phosphorus Magnesium Albumin A&P - Cardiology (1) ESRD (end stage renal disease): Code(s): N18.6 - End stage renal disease (2) Ventricular tachycardia: Code(s): I47.20 - Ventricular tachycardia, unspecified (3) Acute on chronic renal failure: Code(s): N17.9 - Acute kidney failure, unspecified; N18.9 - Chronic kidney disease, unspecified (4) Morbid obesity: Code(s): E66.01 - Morbid (severe) obesity due to excess calories (5) UTI (urinary tract infection): Code(s): N39.0 - Urinary tract infection, site not specified (6) Cardiomyopathy: Code(s): I42.9 - Cardiomyopathy, unspecified Plan See above Documented By: Annie Alva DO 10/23/231750 Signed By: <Electronically signed by Annie Alva DO> 10/23/23 [address] [facility] Work Phone: [phone] 168-200807-11-2024 Progress note Author Dionicio Donald [facility] October 23, 2023 1:44pm Note Date/Time October 23, 2023 1:44 pm [facility] [address] [place] [address] Hospitalist Progress Note Signed Patient: Matt Honeycutt MR#: [id number] : 1950 Acct:[id number] Age/Sex: 73 / M Adm Date: 4 Loc: Room: 2E6732-1 Type: ADM IN Attending Dr: Dionicio Donald MD Copies to: ~ Date of Service: 10/23/2023 Subjective Subjective Narrative: Patient is a 73-year-old male, was transferred to us from [facility]. Hepresented there about 2 days ago, complaining of weakness, lethargy. Evaluationrevealed presence of SHAWN on CKD stage IV-V. Arrangements were made for him to be transferred to [facility] but the bed was not available. Patient spent some 31 hours in the emergency department. Eventually we were called to see whether we can assist. He had been recently treated for recurrent urinary tract infections in the setting of chronic urinary catheter. He appears to have bilateral renal stents in place. He is a rather poor historian. At the time my examination the patient is feeling a bit better. His mental status feels somewhat improved. He has no acute pain or discomfort. Exam Physical Exam Vital Signs: Temp Pulse Resp BP Pulse Ox O2 Del Method O2 Flow Rate 97.7 F 80 20 106/36 L 98 Room Air 3 10/23/23 08:00 10/23/23 13:00 10/23/23 10:00 10/23/23 13:00 10/23/23 10:00 10/23/23 10:00 10/22/23 16:31 Narrative: General patient laying in bed in no acute distress alert awake oriented x3 HEENT PERRLA Neck supple no JVD no carotid bruit CVS S1-S2 regular rate and rhythm no murmur no gallop Chest diminished breath sounds bilateral Abdomen soft bowel sounds normoactive no rebound no guarding Extremities no stenosis no clubbing +480 Musculoskeletal exam normal no joint effusion Neurologic exam oriented x3 alert awake no focal left Psychiatry: Normal insight and judgment Skin: no rash or lesions Objective Lab Results 10/23/23 05:54 10/23/23 05:54 Microbiology Results Microbiology 10/22/23 06:15 [place] Urine Culture - Preliminary Yeast Like Organism Meds Allergies and Active Meds Allergies penicillin G Allergy (Unknown, Verified 10/22/23 01:36) Nausea sulfamethoxazole [From Bactrim] Allergy (Unknown, Verified 10/22/23 01:36) Nausea trimethoprim [From Bactrim] Allergy (Unknown, Verified 10/22/23 01:36) Nausea Penicillins Allergy (Verified 10/22/23 01:36) Hives Active Meds: Active Medications Generic Name Dose Route Start Last Admin Trade Name Freq PRN Reason Stop Dose Admin Acetaminophen 650 mg 10/22/23 22:13 10/23/23 12:09 Acetaminophen 325 Mg Tablet PO 10/21/24 22:12 650 mg Q6H PRN Administration Pain Scale 1 - 5 Heparin Sodium (Porcine) 5,000 unit 10/22/23 06:00 10/23/23 06:48 Heparin 5,000 Unit/Ml Vial SUBCUT 10/21/24 05:59 5,000 unit Q8HR DELFIN Administration Heparin Sodium (Porcine) 2,000 unit 10/22/23 11:47 10/23/23 11:26 Heparin 10,000 Unit/10 Ml Vial IV 10/21/24 11:46 2,000 unit PRN PRN Administration Dialysis Heparin Sodium (Porcine) 2,600 unit 10/23/23 11:30 10/23/23 12:10 Heparin 10,000 Unit/10 Ml Vial IV 10/22/24 11:29 2,600 unit PRN PRN Administration Dialysis Meropenem 0.5 gm in 100 mls @ 200 mls/hr 10/22/23 09:00 10/23/23 08:43 Merrem IV Not Given Q24H [facility] Sodium Chloride 1,000 mls @ 0 mls/hr 10/22/23 11:47 10/23/23 11:30 0.9% Sodium Chloride 1,000 Ml MISCELLANE 10/21/24 11:46 Infused .Q0M PRN Infusion Dialysis As Directed Amiodarone HCl 450 mg/ 250 mls @ 33.333 mls/hr 10/22/23 17:00 10/23/23 01:18 Dextrose IV 10/23/23 16:59 0.5 mg/min .Q7H30M DELFIN 16.67 mls/hr Administration Protocol 1 MG/MIN Albumin Human 25 gm in 100 mls @ 200 mls/hr 10/23/23 11:11 10/23/23 11:10 Albuminar-25 IV 10/23/23 23:59 200 mls/hr PRN PRN Administration Dialysis Insulin Aspart 0 units 10/22/23 08:00 10/23/23 08:36 Insulin Aspart 300 Units/3 Ml Insuln.Pen SUBCUT 10/21/24 07:59 Not Given TID.WM.HS DELFIN Protocol Lidocaine HCl 0.1 ml 10/22/23 10:44 Lidocaine 1% 50 Ml Vial INTRADERMA PREOP PRN Venipuncture x 1 Dose Magnesium Oxide 400 mg 10/22/23 15:00 10/22/23 15:54 Magnesium Oxide 400 Mg Tablet PO 10/21/24 14:59 400 mg DAILY DELFIN Administration Metoprolol Succinate 12.5 mg 10/22/23 15:00 10/22/23 15:54 Metoprolol Succinate 25 Mg Tab.Er.24h PO 10/21/24 14:59 12.5 mg DAILY DELFIN Administration Sodium Chloride 0 ml 10/22/23 11:47 10/23/23 11:28 Sodium Chloride 0.9 % 10 Ml Syringe IV-PUSH 10/21/24 11:46 40 ml PRN PRN Administration Flush A&P - Hospitalist Assessment/Plan (1) Acute kidney injury: Plan: \ (2) Acute on chronic renal failure: (3) Hypertension: (4) CHF (congestive heart failure): (5) Hypothyroid: (6) Depression: (7) PTSD (post-traumatic stress disorder): (8) BPH (benign prostatic hyperplasia): (9) Morbid obesity: Plan Assessment and plan Anasarca Volume overload Acute congestive heart end-stage renal disease Seen and examined Clinically slightly better Dialysis tunneled catheter was placed Had dialysis yesterday Dialysis again for 3 hours Weight 134.2. Sat 98% Nephrology is following Echocardiogram Yeast UTI: Add fluconazole 200 mg daily DVT prophylaxis heparin Obesity class I: Life style modification Diabetes mellitus type 2: Resume insulin Lantus/insulin sliding HPL: Lipitor daily Hypertension: BP is low side A-fib:Amiodarone daily Bilateral BKA Documented By: Dionicio Donald MD 10/23/23 1334 Signed By: <Electronically signed by Dionicio Donald MD> 10/23/23 134[address] [facility] Work Phone: 1(860) 640-698007-11-2024 Progress note Author Norma Lopez [facility] October 23, 2023 1:33pm Note Date/Time October 23, 2023 1:22 pm [facility] [address] [place] [address] Nephrology Progress Note Signed Patient: Matt Honeycutt MR#: [id number] : 1950 Acct:[id number] Age/Sex: 73 / M Adm Date: 4 Loc: Room: 8E7427-7 Type: ADM IN Attending Dr: Dionicio Donald MD Copies to: ~ Date of Service: 10/23/2023 Subjective Subjective Narrative: Mr. Honeycutt is a 73-year-old male with medical history of CKD stage 5 with serum creatinine between 5 and 6 mg/dL since 2022 related to obstructive uropathy, DM,HTN, hypothyroidism, CAD, paraplegia requiring chronic indwelling catheter. Patient currently follow-up with [facility]. He was seen by our service on August 2022 when he presented with SHAWN with creatinine 6 mg/dL in the setting of obstructive uropathy. He was started on hemodialysis with tunneled hemodialysiscatheter and then was referred to [facility] in [place] for nephrostomy. He presentedto [facility] on October 18 with progressive shortness of breath, weakness and lethargy and he was found to have SHAWN on top of CKD stage V with doubling of serum creatinine up to 10 mg/dL and BUN 193 mg/dL. Patient was supposed to be transferred to [facility] however there is no bed. He has been 31-hour at [facility] ED and subsequently he was transferred to [facility] for assessment and management. Lab today was reviewed showed BUN 192, creatinine 10.75. Patient has significant acidosis with carbon oxide 9.4. He has normal potassium. He has mild volume overload with lower extremity edema. Patient was awake and able to give history however he has mild confusion. He tried to call his daughter who was not able to. 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 All of a sudden he developed uremic symptoms. Patient and daughter agreed to proceed with dialysis. Interval history: Patient being seen on hemodialysis #2 today. He is awake and he feels comfortable. He has mild shortness of breath. Mental function is improving. Patient had temporary hemodialysis catheter yesterday and he started first hemodialysis for 2 and half hours with 2 L ultrafiltration. Patient moved to the ICU yesterday because of runs of V. tach and is currently on IV amiodarone drip. Patient has no more V. tach's at this point He was evaluated by urology for right-sided hydronephrosis and bilateral ureteral stent. Considering his multiple comorbidities, recommendation was madeto transfer to tertiary care center where the stents was placed. Exam Physical Exam Vital Signs: Temp Pulse Resp BP Pulse Ox O2 Del Method O2 Flow Rate 36.5 C 120 H 20 113/59 L 98 Room Air 3 10/23/23 08:10/23/23 12:00 10/23/23 10:00 10/23/23 12:00 10/23/23 10:10/23/23 10:10/22/23 16:31 Narrative: General: Sitting up in bed, appears uncomfortable HEENT: Atraumatic, normocephalic. No jaundice, Moist mucous membranes. He has mild pallor. Cardiovascular: Distant heart sound, regular rate and rhythm, no murmur Respiratory: Diminished bilateral air entry, bilateral diffuse wheezing GI: Nondistended, nontender, no palpable masses or organs. Normal bowel sounds Extremities: 1+ edema, no cyanosis Musculoskeletal: No joint swellings or inflammation. Neurological: Awake, alert, oriented x 3. Patient is bedridden with paraplegia. Psychiatric: Cooperative, normal mood and affect Objective Intake and Output I&O: Intake & Output 10/20/23 10/21/23 10/22/23 10/23/23 23:59 23:59 23:59 23:59 Intake Total 900 / 900 810 / 810 Output Total 3010 / 3010 250 / 250 Balance -211 / -2110 560 / 560 Weight 134.2 kg Meds and Allergies Meds: Active Medications Acetaminophen (Acetaminophen 325 Mg Tablet) 650 mg PO Q6H PRN PRN Reason: Pain Scale 1 - 5 Stop: 10/21/24 22:12 Last Admin: 10/23/23 12:09 Dose: 650 mg Heparin Sodium (Porcine) (Heparin 5,000 Unit/Ml Vial) 5,000 unit SUBCUT Q8HR [facility] Stop: 10/21/24 05:59 Last Admin: 10/23/23 06:48 Dose: 5,000 unit Heparin Sodium (Porcine) (Heparin 10,000 Unit/10 Ml Vial) 2,000 unit IV PRN PRN PRN Reason: Dialysis Stop: 10/21/24 11:46 Last Admin: 10/23/23 11:26 Dose: 2,000 unit Heparin Sodium (Porcine) (Heparin 10,000 Unit/10 Ml Vial) 2,600 unit IV PRN PRN PRN Reason: Dialysis Stop: 10/22/24 11:29 Last Admin: 10/23/23 12:10 Dose: 2,600 unit Meropenem (Merrem) 0.5 gm in 100 mls @ 200 mls/hr IV Q24H [facility] Last Admin: 10/23/23 08:43 Dose: Not Given Sodium Chloride (0.9% Sodium Chloride 1,000 Ml) 1,000 mls @ 0 mls/hr MISCELLANE.Q0M PRN PRN Reason: Dialysis Stop: 10/21/24 11:46 Last Infusion: 10/23/23 11:30 Dose: Infused Amiodarone HCl 450 mg/ (Dextrose) 250 mls @ 33.333 mls/hr IV .Q7H30M [facility]; Protocol Stop: 10/23/23 16:59 Last Admin: 10/23/23 01:18 Dose: 0.5 mg/min, 16.67 mls/hr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
--- NOTE | 2023-11-01 19:19 | ECG_ITS ---
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: : 1950 Requested By: [id number] Order Number: [id number] Reading MD: JAYANT HU Measurements Intervals Jeannette Rate: 69 P: 46 AR: 172 QRS: 42 QRSD: 140 T: 72 QT: 414 QTc: 434 Interpretive Statements 1100 Sinus rhythm 2330 Nonspecific intraventricular conduction block 3524 Possible lateral myocardial infarction, age undetermined 3634 Inferior myocardial infarction, age undetermined 9150 abnormal ECG Compared to ECG 10/20/2023 14:35:21 Left ventricular hypertrophy no longer present Early repolarization no longer present Myocardial infarct finding still present Electronically Signed On 11-03-2023 7:33:08 EDT by JAYANT HU
--- NOTE | 2023-11-01 19:42 | ED.GENADUL1 ---
HPI HPI - General Adult General Chief complaint: Urogenital-Male Stated complaint: MALE URO/GENITAL Time Seen by Provider: 11/01/23 19:15 Source: patient Mode of arrival: ambulance Limitations: no limitations History of Present Illness HPI narrative: 73-year-old male presents for very little urine output. He has a history of renal failure and is scheduled to have his first dialysis treatment on November 03, 3 days from now. It was noticed that he had little urine in his Wooten, reportedly 100 mL over the past 24 hours so he was sent here. He does not seem to have any specific complaints. He is not complaining of abdominal pain and has not had a fever. Family reports that he has been more fatigued than typical. They have not seen any blood in his stools. Related Data Home Medications ?Medication ?Instructions ?Recorded ?Confirmed acetaminophen 325 mg capsule 975 mg PO TID PRN fever or pain 08/17/23 11/01/23 (Tylenol) albuterol 90 mcg/actuation aerosol 180 mcg inhalation QID PRN 08/17/23 11/01/23 inhaler shortness of breath or wheezing aspirin 81 mg tablet,delayed 81 mg PO DAILY 08/17/23 11/01/23 release (Adult Low Dose Aspirin) atorvastatin 80 mg tablet 80 mg PO .QHS 08/17/23 11/01/23 bacitracin zinc 500 unit/gram 1 applic topical DAILY PRN skin 08/17/23 11/01/23 topical ointment irritation calcitriol 0.25 mcg capsule 0.25 mcg PO .3 TIMES WEEK 08/17/23 11/01/23 clobetasol 0.05 % topical cream 1 applic topical BID 08/17/23 11/01/23 ferrous sulfate 325 mg (65 mg 325 mg PO .QOD 08/17/23 11/01/23 iron) tablet,delayed release finasteride 5 mg tablet 5 mg PO DAILY 08/17/23 11/01/23 guaifenesin 600 mg tablet, 600 mg PO BID PRN congestion 08/17/23 11/01/23 extended release 12 hr hydrophilic cream 1 applic topical BID 08/17/23 11/01/23 levothyroxine 75 mcg capsule 75 mcg PO QAM 08/17/23 11/01/23 loratadine 10 mg tablet (Allergy 10 mg PO .QOD 08/17/23 11/01/23 Relief (loratadine)) miconazole nitrate 2 % topical 1 applic topical DAILY PRN fungal 08/17/23 11/01/23 powder (Remedy Phytoplex Antifungal) multivitamin 1 tab PO DAILY 08/17/23 11/01/23 nitroglycerin 0.4 mg sublingual 0.4 mg sublingual Q5M PRN chest 08/17/23 11/01/23 tablet pain omeprazole 20 mg tablet,delayed 20 mg PO DAILY 08/17/23 11/01/23 release polyethylene glycol 3350 17 17 g PO DAILY PRN constipation 08/17/23 11/01/23 gram/dose oral powder (Miralax) potassium citrate-citric acid 30 ml PO DAILY 08/17/23 11/01/23 1,100 mg-334 mg/5 mL oral solution pramoxine 1 % lotion 1 applic topical TID PRN itching 08/17/23 11/01/23 semaglutide 2 mg/dose (8 mg/3 mL) 0.5 mg subcut QWEEK 08/17/23 11/01/23 subcutaneous pen injector (Ozempic) sennosides 8.6 mg capsule 8.6 mg PO DAILY PRN constipation 08/17/23 11/01/23 venlafaxine 37.5 mg 37.5 mg PO BID 08/17/23 11/01/23 capsule,extended release 24 hr wound dressings (Triad Wound 1 applic topical .COMPLEX 08/17/23 11/01/23 Dressing paste) zinc oxide 20 % topical ointment 1 applic topical DAILY PRN skin 08/17/23 11/01/23 irritation ixekizumab 80 mg/mL subcutaneous See Rx Instructions subcut .COMPLEX 09/11/23 10/15/23 syringe sodium chloride 0.65 % nasal spray 2 spray intranasal QID PRN dry 09/11/23 11/01/23 aerosol (Flagler Saline) nasal passages triamcinolone acetonide 0.1 % 1 applic topical BID 09/11/23 11/01/23 topical ointment calcium acetate 667 mg tablet 667 mg PO TID 11/01/23 11/01/23 furosemide 80 mg tablet 80 mg PO BID 11/01/23 11/01/23 metoprolol succinate 25 mg 12.5 mg PO DAILY 11/01/23 11/01/23 tablet,extended release 24 hr Allergies Allergy/AdvReac Type Severity Reaction Status Date / Time Penicillins Allergy Mild Rash Verified 11/01/23 19:16 ferumoxides Allergy Rash Verified 11/01/23 19:16 sulfamethoxazole AdvReac Mild Nausea Verified 11/01/23 19:16 [From Sulfamethoxazole-Trimethoprim] trimethoprim AdvReac Mild Nausea Verified 11/01/23 19:16 [From Sulfamethoxazole-Trimethoprim] Opioid HPI Opioid Management Most Recent Opioid Data: Last Pain Scale 6 10/20/23 15:01 Last ORT Total Score 0 10/14/23 22:27 Last ORT Risk Category Low Risk 10/14/23 22:27 Review of Systems ROS Narrative A ten point review of systems is negative except as noted above. [facility] Medical History (Updated 11/01/23 @ 23:34 by Chivo Kamara MD) Bacteremia due to Pseudomonas ?R78.81 - Bacteremia (ICD-10) ?B96.5 - Pseudomonas (aeruginosa) (mallei) (pseudomallei) as the cause of diseases classified elsewhere (ICD-10) Urinary tract infection ?N39.0 - Urinary tract infection, site not specified (ICD-10) Accidental fall from bed ?W06.XXXA - Fall from bed, initial encounter (ICD-10) Contusion of left shoulder ?S40.012A - Contusion of left shoulder, initial encounter (ICD-10) Contusion of knee, left ?S80.02XA - Contusion of left knee, initial encounter (ICD-10) Contusion of back ?S20.229A - Contusion of unspecified back wall of thorax, initial encounter (ICD-10) Thyroid nodule ?E04.1 - Nontoxic single thyroid nodule (ICD-10) Chronic renal disease ?N18.9 - Chronic kidney disease, unspecified (ICD-10) C. 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 - Other specified dermatitis (ICD-10) CAD (coronary artery disease) ?I25.10 - Atherosclerotic heart disease of [place] coronary artery without angina pectoris (ICD-10) T2DM (type 2 diabetes mellitus) ?E11.9 - Type 2 diabetes mellitus without complications (ICD-10) Hypothyroid ?E03.9 - Hypothyroidism, unspecified (ICD-10) HLD (hyperlipidemia) ?E78.5 - Hyperlipidemia, unspecified (ICD-10) HTN (hypertension) ?I10 - Essential (primary) hypertension (ICD-10) Anemia in CKD (chronic kidney disease) ?N18.9 - Chronic kidney disease, unspecified (ICD-10) ?D63.1 - Anemia in chronic kidney disease (ICD-10) Chronic indwelling Wooten catheter ?Z97.8 - Presence of other specified devices (ICD-10) Paraplegia ?G82.20 - Paraplegia, unspecified (ICD-10) Bedbound ?Z74.01 - Bed confinement status (ICD-10) H/O: CVA (cerebrovascular accident) ?Z86.73 - Personal history of transient ischemic attack (TIA), and cerebral infarction without residual deficits (ICD-10) CKD (chronic kidney disease) stage 5, GFR less than 15 ml/min ?N18.5 - Chronic kidney disease, stage 5 (ICD-10) Surgical History (Updated 09/11/23 @ 03:19 by Bethany Amor) H/O heart artery stent ?Z95.5 - Presence of coronary angioplasty implant and graft (ICD-10) Social History Within the past year, how often did you have a drink containing alcohol: never Score interpretation: A score less than 4 is consistent with normal alcohol consumption. Smoking status: Former smoker Non-prescribed substance use: denies use Highest level of school completed/degree received: Associate degree: occupational, technical, vocational program Are you now , , , , never or living with a partner: don't know In a typical week, how many times do you talk on the telephone with family, friends, or neighbors: never How often do you get together with friends or relatives: never How often do you attend mormon or restorationist services: never Little interest or pleasure in doing things: not at all Feeling down, depressed, or hopeless: not at all Do you think of yourself as: straight/heterosexual Gender Identity: male Exam Narrative Exam Narrative: Nurses note and vital signs reviewed and patient is not hypoxic. General: The patient appears generally weak. Skin: Warm, dry, no pallor noted. There is no rash noted. Head: Normocephalic, atraumatic Eye: Normal conjunctiva, no drainage Ears, Nose, Mouth, and Throat: oral mucosa is dry. Nares patent. Cardiovascular: Regular Rate and Rhythm Respiratory: Patient is in no distress, no accessory muscle use, lungs are clear to auscultation, no wheezing, rales or rhonchi Back: non-tender GI: Obese and not tender : Wooten catheter in place Musculoskeletal: Significant peripheral edema in all 4 extremities Neurological: Awake and alert Psychiatric: Cooperative Constitutional Vital Signs, click to edit/add: Last Vital Signs Temp 98.1 F 11/01/23 19:08 Pulse 68 11/01/23 23:30 Resp 20 11/01/23 23:30 BP 109/70 11/01/23 23:30 Pulse Ox 98 11/01/23 23:30 O2 Del Method Room Air 11/01/23 19:08 Course Vital Signs Vital signs: Vital Signs Temperature 98.1 F 11/01/23 19:08 Pulse Rate 70 11/01/23 19:08 Respiratory Rate 24 H 11/01/23 19:08 Blood Pressure 114/55 11/01/23 19:08 Pulse Oximetry 93 L 11/01/23 19:08 Oxygen Delivery Method Room Air 11/01/23 19:08 Temperature 98.1 F 11/01/23 19:08 Pulse Rate 68 11/01/23 23:30 Respiratory Rate 20 11/01/23 23:30 Blood Pressure 109/70 11/01/23 23:30 Pulse Oximetry 98 11/01/23 23:30 Oxygen Delivery Method Room Air 11/01/23 19:08 Medical Decision Making [facility] Narrative Medical decision making narrative: Hemoglobin is 6.0 with heme positive stools which are brown in color. Blood transfusion was ordered. We made attempts to transfer him to the [facility] but this was not successful. After discussing the issue with the patient and his daughter the patient elects to be transferred to [facility]. He was also noted to have greater than 100 white cells in his urine so he was given IV Rocephin. He is stable and agreeable for transfer. Case discussed with Dr. Siddiqui at [facility] who accepts the patient. He is stable and agreeable for transfer. Differential Diagnosis Differential Diagnosis: UTI, acute kidney injury, anemia Lab Data Lab results reviewed: Yes I reviewed the patient's lab results Labs: Lab Results 11/01/23 11/01/23 11/01/23 Range/Units 19:44 20:47 22:40 WBC 4.5 (4.0-11.0) 10^3/uL RBC 2.12 L (4.70-6.10) 10^6/uL Hgb 6.0 L* (14.0-18.0) g/dL Hct 19.3 L* (42.0-54.0) % MCV 91.0 (80.0-94.0) fL MCH 28.3 (25.9-34.0) pg MCHC 31.1 (29.9-35.2) g/dL RDW 14.4 (11.0-15.0) % Plt Count 67 L (150-450) 10^3/uL MPV 11.8 (9.5-13.5) fL Neut % (Auto) 77.6 H (43.0-75.0) % Lymph % (Auto) 8.6 L (20.5-60.0) % Davidson % (Auto) 11.2 (1.7-12.0) % Eos % (Auto) 1.3 (0.9-7.0) % Baso % (Auto) 0.4 (0.2-2.0) % Neut # (Auto) 3.5 (1.4-6.5) 10^3/uL Lymph # (Auto) 0.4 L (1.2-3.8) 10^3/uL Davidson # (Auto) 0.5 (0.3-0.8) 10^3/uL Eos # (Auto) 0.1 (0.0-0.7) 10^3/uL Baso # (Auto) 0.0 (0.0-0.1) 10^3/uL Abs Immat Gran (auto) 0.04 H (0.00-0.03) 10^3/uL Imm/Tot Granulo (auto) 0.9 H (0.0-0.5) % Sodium 133 L (136-145) mmol/L Potassium 3.7 (3.5-5.1) mmol/L Chloride 97 L (98-107) mmol/L Carbon Dioxide 30.5 (21.0-32.0) mmol/L Anion Gap 9.2 BUN 45.0 H (7.0-18.0) mg/dL Creatinine 4.57 H (0.70-1.30) mg/dL Est GFR ( Amer) 15 L (>=60) Est GFR (Non-Af Amer) 13 L (>=60) BUN/Creatinine Ratio 9.8 Glucose 125 H (74-106) mg/dL Calcium 9.4 (8.5-10.1) mg/dL Urine Color Yellow (YELLOW) Urine Clarity Clear (CLEAR) Urine pH 8.5 (5.0-9.0) Ur Specific Olds 1.020 (1.005-1.025) Urine Protein 100 A (NEG/TRACE) mg/dL Urine Glucose (UA) Negative (NEGATIVE) mg/dL Urine Ketones Negative (NEGATIVE) mg/dL Urine Occult Blood Large A (NEGATIVE) Urine Nitrite Negative (NEGATIVE) Urine Bilirubin Negative (NEGATIVE) Urine Urobilinogen 0.2 (0.2-1.0) EU/dL Ur Leukocyte Esterase Moderate A (NEGATIVE) Urine RBC 2-5 A (0-2) #/HPF Urine WBC >100 A (NONE SEEN) #/HPF Ur Squamous Epith Cells None seen (NONE/RARE) #/LPF Urine Crystals None seen (None Seen) #/HPF Amorphous Sediment Many Urine Bacteria None seen (NONE SEEN) #/HPF Urine Casts None seen (NONE SEEN) #/LPF Urine Mucus None seen (NONE SEEN) Ur Culture Indicated? Yes Stool Occult Blood Positive A Blood Type O Negative Antibody Screen Negative Crossmatch See Detail ECG Data Attestation: I personally reviewed and interpreted this ECG as follows: (EKG on my interpretation shows sinus rhythm with a rate of 69) Discharge Plan Discharge Chief Complaint: Urogenital-Male Clinical Impression: Anemia requiring transfusions, GI bleed Patient Disposition: General Acute Hospital Time of Disposition Decision: 23:33 Discharge Location: [facility] Condition: Fair Mode of Transportation: EMS
[2023-11-01 19:55] LABS: Basophils Percent Auto 0.4 % (0.2-2.0); Eosinophils Absolute Auto 0.1 10^3/uL (0.0-0.7); Eosinophils Percent Auto 1.3 % (0.9-7.0); Immature Granulocytes Abs Auto 0.04 10^3/uL (0.00-0.03); Immature Granulocytes Pct Auto 0.9 % (0.0-0.5); Lymphocytes Absolute Auto 0.4 10^3/uL (1.2-3.8); Lymphocytes Percent Auto 8.6 % (20.5-60.0); Mean Corpuscular HGB Conc 31.1 g/dL (29.9-35.2); Mean Corpuscular Hemoglobin 28.3 pg (25.9-34.0); Mean Platelet Volume 11.8 fL (9.5-13.5); Monocytes Absolute Auto 0.5 10^3/uL (0.3-0.8); Monocytes Percent Auto 11.2 % (1.7-12.0); Neutrophils Absolute Auto 3.5 10^3/uL (1.4-6.5); Neutrophils Percent Auto 77.6 % (43.0-75.0); Platelet Count 67 10^3/uL (150-450); Red Blood Count 2.12 10^6/uL (4.70-6.10); Red Cell Distribution Width 14.4 % (11.0-15.0); White Blood Count 4.5 10^3/uL (4.0-11.0)
[2023-11-01 20:04] LABS: Anion Gap 9.2; BUN Creatinine Ratio 9.8; Calcium 9.4 mg/dL (8.5-10.1); Carbon Dioxide 30.5 mmol/L (21.0-32.0); Chloride 97 mmol/L (98-107); Estimated GFR (African America 15 (>=60); Estimated GFR (Non-African Ame 13 (>=60); Glucose 125 mg/dL (74-106); Potassium 3.7 mmol/L (3.5-5.1); Sodium 133 mmol/L (136-145)
--- NOTE | 2023-11-01 20:15 | PC.NURSE ---
pt home health nurse states pt has had 100 cc of urine output in 24 hours. pt has solomon catheter placed. pt will be put on dialysis on 11/03.
[2023-11-01 20:19] LABS: Hematocrit 19.3 % (42.0-54.0)
[2023-11-01 20:54] LABS: Bilirubin Urine NEGATIVE (NEGATIVE); Blood Urine LARGE (NEGATIVE); Clarity Urine CLEAR (CLEAR); Color Urine YELLOW (YELLOW); Glucose Urine UA NEGATIVE (NEGATIVE); Ketones Urine NEGATIVE (NEGATIVE); Leukocyte Esterase Urine MODERATE (NEGATIVE); Nitrite Urine NEGATIVE (NEGATIVE); Protein Urine 100 mg/dL (NEG/TRACE); Urobilinogen Urine 0.2 EU/dL (0.2-1.0); pH Urine 8.5 (5.0-9.0)
[2023-11-01 21:02] LABS: WBC Urine >100 #/HPF (NONE SEEN)
[2023-11-01 21:03] LABS: Amorphous Sediment Urine MANY; Bacteria Urine NONE SEEN #/HPF (NONE SEEN); Cast Seen? NONE SEEN #/LPF (NONE SEEN); Crystals Seen? None Seen #/HPF (None Seen); Mucus Urine NONE SEEN (NONE SEEN); Squamous Epithelial Cell Urine NONE SEEN #/LPF (NONE/RARE); Urine Culture Indicated YES
[2023-11-01 21:30] LABS: Internal Control Within Normal Limits; Occult Blood Positive
[2023-11-01] MEDS: CEFTRIAXONE 1,000 MG in 0.9 % SODIUM CHLORIDE 50 ML 100 MG IV (21:53)
[2023-11-01] MEDS: PANTOPRAZOLE SODIUM 40 MG VIAL IV (22:42)
[2023-11-02] VITALS (16 sets, daily range): BP systolic 104–144; BP diastolic 51–81; PULSE 61–70; TEMP 36.1–36.6; O2SAT 94–100
== END 2023-11-02 03:57 | disposition short-term general hospital (02) ==
PROVIDERS: Emergency Provider Emergency Medicine
DX: D64.9 Anemia, unspecified (principal); K92.2 Gastrointestinal hemorrhage, unspecified; N19 Unspecified kidney failure; Z96.0 Presence of urogenital implants; Z87.891 Personal history of nicotine dependence
CPT/HCPCS: 36415; 36430; 80048; 81001; 85025; 86850; 86900; 86901; 86923; 87040; 87086; 93005; 96365; 96375; 99285; G0328; J0696; P9016

== ENCOUNTER 2023-11-10 10:17 | Emergency (ER) | payer OTHER, SELFPAY ==
[2023-11-10] VITALS (57 sets, daily range): BP systolic 92–119; BP diastolic 47–86; PULSE 83–88; TEMP 36.7–36.8; O2SAT 93–98; BMI 39.0
--- OUTSIDE RECORDS SUMMARY | 2023-11-10 10:28 | XMS_ITS | CCD ---
Author Organization [facility] CliniSywv Care Team Providers Care Insole Presser Name Role Phone Unavailable Primary Care Provider UnavailROBERTO Raman Consulting Unavailable DIAB ., GAVIOTA Attending Unavailable DIAB ., GAVIOTA Admitting Unavailable MISC, DR YODER Primary Care Unavailable DIAB ., GAVIOTA Consulting Unavailable REQUEST, DR BOOTH LISTED Primary Care Unavaila ble LEXX, DR REJI Vidal Consulting Unavailabl e REINECK, DR REJI Vidal Attending Unavailabl e REINECK, DR REJI Vidal Admitting Unavailabl e GRECHNY ., KENDRA DAVIES Consulting Unavailangela e HAY ., DR BARAJAS [...] Unavailable JOSE LUIS MARQUES Consulting Unavailable ELEANOR ., PASHA Consulting Unavailable GWENDOLYN WARREN Consulting Unavailable Erik Sanderson Unavailable Devaughn Lucio Unavailable BLANCA VARGAS Referring Unavailable Unavailable Primary Care Provider Kailash Pro (Clinic), DO Mayers Primary Care Provider MD Marky Dempsey Admit Provider MD Krysta Singer Attending Provider [phone] MD Norma Lopez Other Provider DO Tres Young Other Provider [phone] MARILEE Mason Other Provider DO Araseli Sena Other Provider [phone] MD Luigi Borges Other Provider MD Umang Yan Other Provider Luigi BORGES Attending Unavailable Luigi BORGES Referring Unavailable DO Jose Luis Siddiqui Admit Provider NON STAFF Primary Care Provider UnavailDO Rubi Pineda Other Provider Marky Dempsey Admitting Unavailable Krysta Singer Attending Unavailable Morteza (Clinic)Barak Primary Care UnavailNorma Maya Consulting Unavailable Tres Young Consulting Unavailable Coleen Mason Consulting Unavailable Araseli Sena Consulting Unavailable Luigi Borges Consulting Unavailable Umang Yan Consulting UnavailKrysta Tang Attending Unavailable Rubi Adam Consulting Unavailable Jose Luis Siddiqui Admitting Unavailable NON STAFF Primary Care Unavailable Norma Lopez Consulting Unavailable DO Mendel Young Emergency Provider [phone] Allergies Allergy Classification Reported Allergen(s) Allergy Type Date of Onset Reaction(s) Facility Penicillins (antibiotic) (1 source) Penicillins Drug Allergy 02-06-20 [facility] (4 sources) Penicillins Propensity to adverse reactions to drug 02-06-20 19 [place], [place] (2 sources) Penicillin; Translations: [penicillin] Drug Allergy [facility] Repository (2 sources) Sulfamethoxazole / Trimethoprim; Translations: [Bactrim] Drug Allergy [facility] Repository (6 sources) Penicillin G Drug Allergy 10-22-19 Unknown, [facility] (3 sources) Sulfamethoxazole / Trimethoprim Drug Allergy Unknown [employer] Other (4 sources) Sulfamethoxazole; Translations: [sulfamethoxazole] Drug Allergy 10-22-19 [facility] (4 sources) Trimethoprim; Translations: [trimethoprim] Drug Allergy 10-22-19 [facility] (1 source) No Known Medication Allergies; Translations: [No Known Medication Allergies] Propensity to adverse reactions (disorder) [facility] Repository (1 source) Penicillin Drug Allergy 10-22-19 [facility] Repository (1 source) Penicillins Drug allergy (disorder) 10-22-19 [facility] Repository Medications Current Medications Medication Drug Class(es) Dates Sig (Normalized) Sig (Original) 0.25 MG, 0.5 MG Dose 3 ML semaglutide 0.68 MG/ML Pen Injector [Ozempic] (3 sources) Ozempic (0.25 or 0.5 MG/DOSE) 2 MG/3ML as directed Subcutaneous ONCE A WEEK Active acetaminophen 500 mg oral tablet (11 sources) Start: 08-30-2022 take 650 mg by [...] mouth every morning (before breakfast) 0 Active [id number] actuat albuterol 0.09 mg/actuat metered dose inhaler (6 sources) beta2-Adrenerg ic Agonist Start: 2019 take [...] 0 Active aspirin 81 mg chewable tablet (8 sources) Platelet Aggregation Inhibitor, Nonsteroidal Anti-inflammatory Drug Start: 0 take 81 mg by mouth once daily Aspirin Active 81 MG PO Daily June 02, 2019 1:00am take 1 tablet by estrella th every twenty-four hours Aspirin Adult Low Dose 81 MG 1 tablet Orally Once a day Active atorvastatin 80 mg oral tablet (8 sources) HMG-CoA Reductase Inhibitor Start: 06-02-2019 take 80 mg by mouth once daily Atorvastatin Active 80 MG PO Daily June 02, 2019 1:00am betamethasone 0.5 mg/ml topical cream (3 sources) Corticosteroid Start: 08-30-2022 Betamethasone Dipropionate Active 1 APPLIC TOPICAL Twice daily August 30, 2022 12:00am bisacodyl 10 mg rectal suppository (2 sources) Stimulant Laxative take 10 mg rectal route once daily as needed for constipation bisacodyl (DULCOLAX) [address] 10 mg rectally daily as needed for Constipation 0 Active calcitriol 0.96104 mg oral capsule (3 sources) Vitamin D3 Analog Start: 10-30-2023 take 0.25 ug by mouth three times weekly Calcitriol Active 0.25 MCG PO 3 Times a week October 30, 2023 12:00am calcium acetate 667 mg oral tablet (3 sources) Start: 10-30-2023 take 1334 mg by mouth three times daily at mealtime Calcium Acetate(Phosphat Bind) Active 1334 MG PO 3 times per day with meals October 30, 2023 12:00am docusate sodium 100 mg oral capsule (6 sources) Start: 08-30-2022 take 100 mg by mouth twice daily Docusate Sodium Active 100 MG PO Twice daily August 30, 2022 12:00am take 1 capsule by mo [facility] every twenty-four hours Colace 100 MG 1 capsule as needed Orally Once a day Active ferrous sulfate 325 mg oral tablet (8 sources) Start: 06-02-2019 take 325 mg by mouth once daily Ferrous Sulfate Active 325 MG PO Daily June 02, 2019 1:00am take 1 tablet by mouth once ja y Ferrous Sulfate 325 (65 Fe) MG 1 tablet Orally ONCE A DAY Active finasteride 5 mg oral tablet (8 sources) 5-alpha Reductase Inhibitor Start: 06-02-2019 take 5 mg by mouth once daily Finasteride Active 5 MG PO Daily June 02, 2019 1:00am 30 actuat fluticasone furoate 0.05 mg/actuat dry powder inhaler (1 source) Corticosteroid Start: 08-30-2022 take 50 ug by inhalation twice daily Fluticasone Furoate Active 50 MCG INHALATION Twice daily August 30, 2022 12:00am furosemide 80 mg oral tablet (8 sources) Loop Diuretic Start: 10-30-2023 take 80 mg by mouth twice daily Furosemide Active 80 MG PO BID@0800,1600 60 30 October 30, 2023 12:00am Start: 08-30-2022 End: 10-30-2023 take 20 mg by mouth once daily Furosemide Discontinued 20 MG PO Daily August 30, 2022 12:00am October 30, 2023 6:21pm take 1 tablet by [facility] once daily furosemide (LASIX) 80 MG tablet Take 80 mg by mouth daily 0 Active 0.2 ml glucagon 5 mg/ml prefilled syringe (3 sources) Antihypoglycemic Agent Start: 08-30-2022 inject 1 mg by subcutaneous injection once daily Glucagon Active 1 MG SUBCUT Daily August 30, 2022 12:00am Insulin Glargine (6 sources) Insulin Analog Start: 06-02-2019 inject 12 [IU] by subcutaneous injection once daily at bedtime Insulin Glargine Active 12 UNIT SUBCUT Daily at bedtime June 02, 2019 1:00am Lantus SoloStar 100 UNIT/ML as directed Subcutaneous 12UNITS Q HS Active Lanolin Cofoocv-Xw-B.Pet[place] (Minerin Creme) Cream (3 sources) Start: 08-30-2022 Lanolin Qogznvs-Ot-I.Pet-[place] (Minerin Creme) Cream Active 1 APPLIC TOPICAL Daily August 30, 2022 12:00am legs and feet levothyroxine sodium 0.075 mg oral tablet (8 sources) l-Thy roxin e Start: 06-02-2019 take [...] 0 Active loratadine 10 mg oral tablet (8 sources) Start: 06-02-19 Loratadine Active 10 MG [...] succinate 25 mg extended release oral tablet (7 sources) beta-Adrenergic Zayda Start: take 25 mg by mouth once daily Metoprolol Succinate Active 25 MG PO Daily November 02, 2023 12:00am Start: 10-30-2023 End: 11-02-2023 take 12.5 mg by mouth once daily Metoprolol Succinate Discontinued 12.5 MG PO Daily October 30, 2023 12:00am November 02, 2023 11:43am take 1 tablet by estrella th twice daily metoprolol tartrate (LOPRESSOR) 25 MG [...] 0 Active nitroglycerin 0.4 mg sublingual tablet (5 sources) Nitrate Vasodilator Start: 06-02-19 Nitroglycerin Active 0.4 MG SUBLINGUAL every 5 to 15 minutes June 02, 2019 1:00am nystatin [id number] unt/ml oral suspension (2 sources) Polyene Antifungal Start: 11-03-19 take 405336 [IU] by mouth four times daily Nystatin Active 145855 UNIT PO Four times daily 112 November 03, 2023 12:00am omeprazole 20 mg delayed release oral capsule (6 sources) Proton Pump Inhibitor Start: 08-31-19 take 20 mg by mouth once daily Omeprazole Active 20 MG PO Daily August 30, 2022 12:00am Ostomy Supplies (Coloplast Paste) Paste (3 sources) Start: 08-31-19 Ostomy Supplies (Coloplast Paste) Paste Active EACH MISCELLANE August 30, 2022 12:00am polyethylene glycol 3350 27653 mg powder for oral solution (6 sources) Osmotic Laxative Start: 06-02-19 take 17 [...] day Active simethicone 80 mg chewable tablet (6 sources) Start: 08-31-19 take 80 mg by [...] Active traZODone hydrochloride 50 mg oral tablet (12 sources) Serotonin Reuptake Inhibitor Start: take 25 [...] Active trospium chloride 20 mg oral tablet (3 sources) Cholinergic Muscarinic Antagonist Start: 08-30-2022 take 20 mg by mouth once daily Trospium Active 20 MG PO Daily August 30, 2022 12:00am 1 ml ustekinumab 90 mg/ml prefilled syringe (5 sources) Interleukin-12 Antagonist, Interleukin-23 Antagonist Start: 08-30-2022 Ustekinumab (Stelara) 90 mg/mL Syringe Active 90 MG SUBCUT once every 10 weeks August 30, 2022 12:00am ustekinumab (BENJAMIN JAY) 90 MG/ML SOSY prefilled syringe Inject 90 mg into the skin once 0 Active venlafaxine 37.5 mg oral tablet (6 sources) Serotonin and Norepinephrine Reuptake Inhibitor Start: 08-30-2022 take 37.5 mg by mouth twice daily Venlafaxine Active 37.5 MG PO Twice daily August 30, 2022 12:00am Zinc Oxide (3 sources) Start: 08-30-2022 Zinc Oxide Act betsy 1 APPLIC TOPICAL Twice daily August 30, 2022 12:00am Completed/Discontinued Medications Medication Drug Class(es) Dates Sig (Normalized) Sig (Original) Balsam [place] Oil (Venelex) Ointment (3 sources) Start: 06-14-2019 End: 08-30-2022 Balsam Prem-[place] Oil (Venelex) Ointment Discontinued 1 APPLIC TOPICAL Three times daily 0 June 14, 2019 1:00am August 30, 2022 3:56pm bumetanide 2 mg oral tablet (6 sources) Loop Diuretic Start: 06-02-2019 End: 06-14-2019 take 1 mg by mouth at bedtime Bumetanide Discontinued 1 MG PO Bedtime June 02, 2019 1:00am June 14, 2019 2:50pm Start: 06-02-2019 End: 06-14-2019 take 2 mg by mouth once daily Bumetanide Discontinued 2 MG PO Daily June 02, 2019 1:00am June 14, 2019 2:50pm capsaicin 0.25 mg/ml topical cream (3 sources) Start: 06-14-2019 End: 08-30-2022 Capsaicin Discontinued 1 APPLIC TOPICAL Twice daily 0 June 14, 2019 1:00am August 30, 2022 3:56pm carvedilol 12.5 mg oral tablet (8 sources) alpha-Adrenergi c Zayda, beta-Adrenergic Zayda Start: [...] meals) 0 Active cefepime 1000 mg injection (3 sources) Cephalosporin Antibacterial Start: 09-04-2022 End: 10-30-2023 take 1 g intravenously every twenty-four hours Cefepime Discontinued 1 GM IV Q24H September 04, 2022 12:00am October 30, 2023 6:21pm cholecalciferol 0.05 mg oral tablet (6 sources) Vitamin D Start: 08-30-2022 End: 10-30-2023 take 50 ug by mouth once daily Cholecalciferol (Vitamin D3) Discontinued 50 MCG PO Daily August 30, 2022 12:00am October 30, 2023 6:21pm take 1 tablet by mouth once ja y Cholecalciferol 50 MCG (1999 UT) 1 tablet Orally Once a day Active gabapentin 300 mg oral capsule (5 sources) Anti-epileptic Agent Start: 06-02-2019 End: 06-14-2019 take 300 mg by mouth twice daily Gabapentin Discontinued 300 MG PO Twice daily June 02, 2019 1:00am June 14, 2019 2:50pm take 1 capsule by sc ut three times daily gabapentin (NEURONTIN) 300 MG capsule Ta ke 300 mg by mouth 3 times daily. 0 Active ammonium lactate 120 mg/ml topical cream (3 sources) Start: 06-02-2019 End: 08-30-2022 Ammonium Lactate Discontinued 1 APPLIC TOPICAL Twice daily June 02, 2019 1:00am August 30, 2022 3:55pm levoFLOXacin 500 mg oral tablet (3 sources) Quinolone Antimicrobial Start: 08-30-2022 End: 08-30-2022 Levofloxacin Discontinued 500 MG PO Q48H August 30, 2022 12:00am August 30, 2022 6:24pm Sennosides (3 sources) Start: 06-02-2019 End: 08-30-2022 take 8.6 mg by mouth twice daily Sennosides Discontinued 8.6 MG PO Twice daily June 02, 2019 1:00am August 30, 2022 4:06pm sodium bicarbonate 650 mg oral tablet (3 sources) Start: 09-04-2022 End: 10-30-2023 take 650 mg by mouth three times daily Sodium Bicarbonate Discontinued 650 MG PO Three times daily September 04, 2022 12:00am October 30, 2023 6:21pm tamsulosin hydrochloride 0.4 mg oral capsule (5 sources) alpha-Adrenergic Zayda Start: 06-02-2019 End: 08-30-2022 take 0.4 mg by mouth at bedtime Tamsulosin Discontinued 0.4 MG PO Bedtime June 02, 2019 1:00am August 30, 2022 4:06pm Problems Active Problems Problem Classification Problem Date Documented Date Episodic/Chronic Acute and unspecified renal failure (15 sources) Acute renal failure syndrome; Translations: [Acute kidney failure, unspecified] Onset: 10-25-201 9 02-05-2019 Episodic Acute posthemorrhagic anemia (5 sources) Acute posthemorrhagic anemia; Translations: [Acute posthemorrhagic anemia] Onset: 4 11-02-2023 Episodic Administrative/social admission (7 sources) Advance directive discussed with patient; Translations: [Other specified counseling] Onset: 4 10-30-2023 Episodic Anxiety disorders (8 sources) Post-traumatic stress disorder, unspecified; Translations: [Posttraumatic stress disorder] Onset: 2 10-23-2023 Chronic Bacterial infection; unspecified site (1 source) Proteus (mirabilis) (morganii) as the cause of diseases classified elsewhere; Translations: [PROTEUS CAUSE OF DZ CLASS ELSW] Onset: 3 Episodic Blindness and vision defects (1 source) Unspecified visual loss; Translations: [UNSPECIFIED VISUAL LOSS] Onset: 2 Chronic Calculus of urinary tract (20 sources) Personal history of urinary calculi; Translations: [Kidney stone] Onset: 2 Episodic Cardiac dysrhythmias (6 sources) Ventricular tachycardia; Translations: [Ventricular tachycardia] 10-22-2023 Chronic Chronic kidney disease (20 sources) End stage renal disease; Translations: [Chronic kidney disease, unspecified] Onset: 3 Chronic Chronic ulcer of skin (3 sources) Pressure ulcer stage 2; Translations: [Pressure ulcer of right buttock, stage 2] Onset: 9 02-05-2019 Chronic Complication of device; implant or graft (4 sources) Infection and inflammatory reaction due to indwelling urethral catheter, initial encounter; Translations: [Catheter-associated urinary tract infection] Onset: 3 03-26-2023 Episodic Congestive heart failure; nonhypertensive (15 sources) Systolic heart failure; Translations: [Unspecified systolic (congestive) heart failure] Onset: 9 02-05-2019 Chronic Coronary atherosclerosis and other heart disease (2 sources) Atherosclerotic heart disease of [place] coronary artery without angina pectoris; Translations: [Chronic [...] Onset: 3 Episodic Deficiency and other anemia (3 sources) Anemia; Translations: [Anemia, unspecified] 03-26-2023 Episodic Deficiency and other anemia (1 source) Chronic anemia; Translations: [Anemia, unspecified] 11-06-2023 Episodic Diabetes mellitus with complications (9 sources) Type 2 diabetes mellitus with diabetic chronic kidney disease; Translations: [Disorder of kidney due to diabetes mellitus] Onset: 3 03-26-2023 Chronic Diabetes mellitus without complication (7 sources) Type 2 diabetes mellitus without complications; Translations: [Diabetes mellitus] Onset: 2 10-23-2023 Chronic Disorders of lipid metabolism (4 sources) Pure hypercholesterolemia, unspecified; Translations: [Hyperlipidemia] Onset: 3 03-26-2023 Chronic Essential hypertension (9 sources) Hypertensive disorder; Translations: [Essential (primary) hypertension] Onset: 4 10-23-2023 Chronic Fluid and electrolyte disorders (8 sources) Metabolic acidosis; Translations: [Metabolic acidosis] Onset: 4 03-26-2023 Episodic Gastrointestinal hemorrhage (9 sources) Acute gastrointestinal hemorrhage; Translations: [Gastrointestinal hemorrhage, unspecified] Onset: 4 11-03-2023 Episodic Genitourinary symptoms and ill-defined conditions (1 source) Presence of urogenital implants; Translations: [PRESENCE OF UROGENITAL IMPLANTS] Onset: 3 Chronic Genitourinary symptoms and ill-defined conditions (6 sources) Obstructive and reflux uropathy, unspecified; Translations: [Personal history of urinary (tract) infections] Onset: 2 03-26-2023 Episodic Hyperplasia of prostate (8 sources) Benign prostatic hyperplasia without lower urinary tract symptoms; Translations: [Benign prostatic hyperplasia] Onset: 2 10-23-2023 Chronic Hypertension with complications and secondary hypertension (10 sources) Hypertensive chronic kidney disease with stage [...] N-DOM] Onset: 3 Chronic Malaise and fatigue (4 sources) Weakness; Translations: [Physical deconditioning] Onset: 3 03-26-2023 Episodic Menopausal disorders (1 source) Hormone replacement therapy; Translations: [HORMONE REPLACEMENT THERAPY] Onset: 3 Episodic Mood disorders (8 sources) Major depressive disorder, single episode, unspecified; Translations: [Depressive disorder] Onset: 2 10-23-2023 Chronic Osteoarthritis (1 source) Unspecified osteoarthritis, unspecified site; Translations: [UNSPECIFIED OSTEOARTHRITIS UNS SITE] Onset: 2 Chronic Other aftercare (1 source) exterminator (current) use of aspirin; Translations: [USP CURRENT USE OF ASPIRIN] Onset: 3 Episodic Other aftercare (1 source) Other roasterman (current) drug therapy; Translations: [OTH USP CURRENT DRUG THERAPY] Onset: 3 Episodic Other aftercare (1 source) exterminator (current) use of insulin; Translations: [USP CURRENT USE OF INSULIN] Onset: 3 Episodic Other and ill-defined cerebrovascular disease (2 sources) Cerebral ischemia; Translations: [Transient cerebral ischemic attack, unspecified] Onset: 9 02-05-2019 Chronic Other and ill-defined heart disease (2 sources) Aneurysm of heart; Translations: [Aneurysm of heart] 11-02-2023 Chronic Other and ill-defined heart disease (3 sources) Aneurysm of heart; 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)] Onset: 4 11-03-2023 Chronic Other connective tissue disease (4 sources) Pain in left leg; Translations: [PAIN IN LEFT LEG] Onset: 3 Episodic Other diseases of kidney and ureters (3 sources) Secondary hyperparathyroidism; Translations: [Secondary hyperparathyroidism of renal origin] Chronic Other diseases of kidney and ureters (7 sources) Secondary hyperparathyroidism of renal origin; Translations: [Secondary hyperparathyroidism (of renal origin)] Onset: 4 Chronic Other diseases of kidney and ureters (3 sources) Hyperparathyroidism due to renal insufficiency; Translations: [Secondary hyperparathyroidism of renal origin] 10-22-2023 Chronic Other diseases of kidney and ureters (3 sources) Kidney disease; Translations: [Other specified disorders of kidney and ureter] 10-22-2023 Chronic Other diseases of kidney and ureters (4 sources) Other specified disorders of kidney and ureter; Translations: [Other specified disorders of kidney and ureter] Onset: 4 10-31-2023 Chronic Other diseases of kidney and ureters (6 sources) Hydronephrosis; Translations: [Unspecified hydronephrosis] 03-26-2023 Episodic Other diseases of kidney and ureters (4 sources) Unspecified hydronephrosis; Translations: [Hydronephrosis] Onset: 4 10-31-2023 Episodic Other ear and sense organ disorders (1 source) Unspecified hearing loss, unspecified ear; Translations: [UNS HEARING LOSS UNSPECIFIED EAR] Onset: 2 Chronic Other gastrointestinal disorders (2 sources) Occult blood in stools; Translations: [Other fecal abnormalities] 11-02-2023 Episodic Other gastrointestinal disorders (3 sources) Other fecal abnormalities; Translations: [Nonspecific abnormal findings in stool contents] Onset: 4 11-03-2023 Episodic Other inflammatory condition of skin (1 source) Psoriasis, unspecified; Translations: [PSORIASIS UNSPECIFIED] Onset: 2 Chronic Other nutritional; endocrine; and metabolic disorders (5 sources) Morbid (severe) obesity due to excess [...] endocrine; and metabolic disorders (3 sources) Morbid obesity; Translations: [Morbid (severe) obesity due to excess calories] 10-23-2023 Chronic Other screening for suspected conditions (not mental disorders or infectious disease) (1 source) Other specified abnormal findings of blood chemistry; Translations: [OTH SPEC ABNORMAL FINDINGS BLD CHEM] Onset: 3 Episodic Zandra-; endo-; and myocarditis; cardiomyopathy (except that caused by tuberculosis or sexually transmitted disease) (7 sources) Cardiomyopathy; Translations: [Cardiomyopathy, unspecified] Onset: 4 10-22-2023 Chronic Residual codes; unclassified (1 source) Dependence on wheelchair; Translations: [DEPENDENCE ON WHEELCHAIR] Onset: 3 Chronic Residual codes; unclassified (1 source) Sleep apnea, unspecified; Translations: [SLEEP APNEA UNSPECIFIED] Onset: 2 Chronic Residual codes; unclassified (3 sources) Urinary catheter in situ; Translations: [Presence of other specified devices] 10-22-2023 Episodic Residual codes; unclassified (4 sources) Presence of other specified devices; Translations: [Other postprocedural status] Onset: 4 10-31-2023 Episodic Screening and history of mental health and substance abuse codes (1 source) Personal history of nicotine dependence; Translations: [PERSONAL HISTORY OF NICOTINE DEPEND] Onset: 3 Episodic Thyroid disorders (11 sources) Hypothyroidism, unspecified; Translations: [Hypothyroidism] Onset: 3 10-23-2023 Chronic Unclassified (1 source) CONTACT W/AND (SUSP) EXPOS COVID-19; Translations: [CONTACT W/AND (SUSP) EXPOS COVID-19] Onset: 3 Unclassified (1 source) ACIDOSIS UNSPECIFIED; Translations: [ACIDOSIS UNSPECIFIED] Onset: 3 Unclassified (1 source) Ventricular tachycardia, unspecified; Translations: [Ventricular tachycardia, unspecified] Onset: 4 Urinary tract infections (7 sources) Urinary tract infection, site not specified; [...] Test Name Value Interpretation Reference Range Facility Hematocrit Auto (Bld) [Volum e fraction]Ordered By: Mendel Young on 11-06-2023 Hematocrit (Bld) [Volume fraction] 24.2 % Low 38.8-50.0 [facility] Hemoglobin [Mass/volume] in BloodOrdered By: Mendel Young on 11-06-2023 Hemoglobin (Bld) [Mass/Vol] 8.0 g/dL Low 13.0-17.0 [facility] Basic Metabolic Panelon 10-13 Creatinine Clr Calc Pharmacy 16.68 Normal [facility] Comment on above: Result Comment: PERF ORMED BY: [place] [id number] PATHOLOGIST SLIP TENDER BRANDEN WHATLEY M.D. Performed By: #### C BCNO, BMP #### [place] [address] [place] GFR/1.73 sq M.predicted MDRD (S/P/Bld) [Vol rate/Area] 10.457 mL/min/{1.73_m2} Normal [facility] Comment on above: Performed By: #### C FÉLIX, DONA #### [place] [address] [place] Calcium [Mass/volume] in Ser um or PlasmaOrdered By: Germán August on 11-03-2023 Calcium [Mass/Vol] 9.3 mg/dL 8.6-10.3 [facility] Comment on above: Performed By: #### C FÉLIX, BMP #### [address] Capillary blood glucose manuel urement by glucometer (mass/volume)Ordered By: Krysta Singer on 11-03-2023 Glucose [Mass/Vol] 80 mg/dL [facility] Comment on above: Random Glucose Refer ence Range is dependent on time and content of last meal. Glucose of more than 200 mg/dL in a nonstressed, ambulatory subject supports the diagnosis of Diabetes Mellitus. Result Comment: [place] om Glucose Reference Range is dependent on time and content of last meal. Glucose of more than 200 mg/dL in a nonstressed, ambulatory subject supports the diagnosis of Diabetes Mellitus. PERFORMED BY: [place] [id number] PATHOLOGIST SLIP TENDER BRANDEN WHATLEY M.D. Performed By: #### C FÉLIX, BMP #### [place] [address] [place] Carbon dioxide, total [Moles /volume] in Serum or PlasmaOrdered By: Germán August on 11-03-2023 CO2 [Moles/Vol] 24.4 mmol/L 21.0-31.0 [facility] Comment on above: Performed By: #### C FÉLIX, BMP #### [place] [address] [place] Chloride [Moles/volume] in S liv or PlasmaOrdered By: Germán August on 11-03-2023 Chloride [Moles/Vol] 97 mmol/L Low 98-107 [facility] Comment on above: Performed By: #### C FÉLIX, BMP #### [facility] [id number] [address] Creatinine [Mass/volume] in Serum or PlasmaOrdered By: Germán August on 11-03-2023 Creatinine [Mass/Vol] 5.42 mg/dL High 0.70-1.30 [facility] Comment on above: Performed By: #### C FÉLIX, BMP #### [facility] [address] Erythrocyte distribution wid th [Ratio] by Automated countOrdered By: Germán August on 11-03-2023 Erythrocyte distribution width (RBC) [Ratio] 15.3 % High 12.0-14.8 [facility] Comment on above: Performed By: #### C FÉLIX, BMP #### [address] Erythrocytes [#/volume] in B lood by Automated countOrdered By: Germán August on 11-03-2023 RBC (Bld) [#/Vol] 2.73 10*6/uL Low 3.90-5.60 [facility] Comment on above: Performed By: #### C FÉLIX, BMP #### [address] Glucose Poct Glucometerson 0 11-03-2023 Glucose [Mass/Vol] 101 mg/dL Normal [facility] Comment on above: Result Comment: [facility] Glucose Reference Range is dependent on time and content of last meal. Glucose of more than 200 mg/dL in a nonstressed, ambulatory subject supports the diagnosis of Diabetes Mellitus. PERFORMED BY: [place] [address] PATHOLOGIST SLIP TENDER BRANDEN WHATLEY M.D. Performed By: #### G ZAC #### Point of Care testing , Glucose [Mass/volume] in Ser um or PlasmaOrdered By: Germán August on 11-03-2023 Glucose [Mass/Vol] 112 mg/dL High 70-100 [facility] Comment on above: ADA recommended refe rence rangeRandom Glucose Reference Range is dependent on time and content of last meal. Glucose of more than 200 mg/dL in a nonstressed, ambulatory subject supports the diagnosis of Diabetes Mellitus. Result Comment: [place] om Glucose Reference Range is dependent on time and content of last meal. Glucose of more than 200 mg/dL in a nonstressed, ambulatory subject supports the diagnosis of Diabetes Mellitus. ADA recommended reference range Performed By: #### C FÉLIX, BMP #### [address] Hematocrit [Volume Fraction] of Blood by Automated countOrdered By: Germán August on 11-03-2023 Hematocrit (Bld) [Volume fraction] 23.3 % Low 38.8-50.0 [facility] Comment on above: Performed By: #### C FÉLIX, DONA #### [address] Hemoglobin [Mass/volume] in BloodOrdered By: Germán August on 11-03-2023 Hemoglobin (Bld) [Mass/Vol] 7.9 g/dL Low 13.0-17.0 [facility] Comment on above: Performed By: #### C FÉLIX, BMP #### [address] Hemogram CBC Without Diffon 11-03-2023 Mean Corpuscular HGB Conc 33.9 g/dL Normal 32.5-35.6 [facility] Comment on above: Performed By: #### C FÉLIX, BMP #### [address] WBC (Bld) [#/Vol] 4.4 10*3/uL Normal 4.1-10.5 [facility] Comment on above: Performed By: #### C FÉLIX, BMP #### [address] Leukocytes [#/volume] correc peña for nucleated erythrocytes in Blood by Automated counOrdered By: Germán August on 11-03-2023 WBC corrected for nucl RBC Auto (Bld) [#/Vol] 4.4 10*3/uL 4.1-10.5 [facility] MCH [Entitic mass] by Automa peña countOrdered By: Germán August on 11-03-2023 MCH (RBC) [Entitic mass] 28.9 pg 27.5-35.2 [facility] Comment on above: Performed By: #### C FÉLIX, BMP #### [facility] [address] MCHC Auto (RBC) [Mass/Vol]Or dered By: Germán August on 11-03-2023 MCHC (RBC) [Mass/Vol] 33.9 g/dL 32.5-35.6 [facility] MCV [Entitic volume] by Auto mated countOrdered By: Germán August on 11-03-2023 MCV (RBC) [Entitic vol] 85.2 fL 83.5-101 [facility] Comment on above: Performed By: #### C FÉLIX, BMP #### [facility] [address] [place] [address] No Panel InformationOrdered By: Germán August on 11-03-2023 Estimated GFR (CKD-EPI) 10.457 mL/Min [facility] Creatinine Clearance (Chem 16.68 [facility] Platelet mean volume [Entiti c volume] in Blood by Automated countOrdered By: Germán August on 11-03-2023 Platelet mean volume (Bld) [Entitic vol] 9.3 fL 6.6-10.1 [facility] Comment on above: Result Comment: PERF ORMED BY: [place] [address] PATHOLOGIST SLIP TENDER BRANDEN WHATLEY M.D. Performed By: #### C FÉLIX, BMP #### [facility] [address] [place] [address] Platelets [#/volume] in Bloo d by Automated countOrdered By: Germán August on 11-03-2023 Platelets (Bld) [#/Vol] 66 10*3/uL Low 150-450 [facility] Comment on above: Performed By: #### C FÉLIX, BMP #### [facility] [address] Potassium [Moles/volume] in Serum or PlasmaOrdered By: Germán August on 11-03-2023 Potassium [Moles/Vol] 4.0 mmol/L 3.5-5.1 [facility] Comment on above: Performed By: #### C BCNO, BMP #### [facility] [address] Serum or plasma anion gap de terminationOrdered By: Germán August on 11-03-2023 Anion gap [Moles/Vol] 15.6 mmol/L High 6.0-15.0 [facility] Comment on above: Performed By: #### C FÉLIX, BMP #### [address] Sodium [Moles/volume] in Ser um or PlasmaOrdered By: Germán August on 11-03-2023 Sodium [Moles/Vol] 133 mmol/L Low 136-145 [facility] Comment on above: Performed By: #### C FÉLIX, BMP #### [address] Urea nitrogen [Mass/volume] in Serum or PlasmaOrdered By: Germán August on 11-03-2023 Urea nitrogen [Mass/Vol] 64 mg/dL High 7-25 [facility] Comment on above: Performed By: #### C FÉLIX, BMP #### [address] Activated partial thrombopla stin time (aPTT) in platelet poor plasma by coagulation aOrdered By: Jose Luis Siddiqui on 11-02-2023 aPTT Coag (PPP) [Time] 27.3 s 25.1-36.5 [facility] Comment on above: A hematocrit value g reater than 55% may lead to inaccurate results in coagulation testing. Patients having hematocrit values >55% require a special collection tube for coagulation studies. Please contact the laboratory at [phone] for redraw instructions. Anisocytosis [Presence] in B lood by Light microscopyOrdered By: Jose Luis Siddiqui on 11-02-2023 Anisocytosis Ql (Bld) Slight [facility] Comment on above: Performed By: #### C FÉLIX, BMP #### [address] Automated basophil %Ordered By: Jose Luis Siddiqui on 11-02-2023 Basophils/100 WBC (Bld) 0.9 % . [facility] Comment on above: Performed By: #### C FÉLIX, BMP #### [address] Automated basophil countOrde red By: Jose Luis Siddiqui on 11-02-2023 Basophils (Bld) [#/Vol] 0.0 10*3/uL 0.0-0.2 [facility] Comment on above: Performed By: #### C FÉLIX, BMP #### [address] Automated blood monocyte cou ntOrdered By: Jose Luis Siddiqui on 11-02-2023 Monocytes (Bld) [#/Vol] 0.6 10*3/uL 0.0-0.8 [facility] Comment on above: Performed By: #### C FÉLIX, BMP #### [address] Automated eosinophil %Ordere d By: Jose Luis Siddiqui on 11-02-2023 Eosinophils/100 WBC (Bld) 1.9 % . [facility] Comment on above: Performed By: #### C FÉLIX, BMP #### [address] Automated eosinophil countOr dered By: Jose Luis Siddiqui on 11-02-2023 Eosinophils (Bld) [#/Vol] 0.1 10*3/uL 0.0-0.45 [facility] Comment on above: Performed By: #### C FÉLIX, BMP #### [address] Automated monocyte %Ordered By: Jose Luis Siddiqui on 11-02-2023 Monocytes/100 WBC (Bld) 14.7 % . [facility] Comment on above: Performed By: #### C FÉLIX, BMP #### [address] Automated neutrophil %Ordere d By: Jose Luis Siddiqui on 11-02-2023 Neutrophils/100 WBC (Bld) 73.7 % . [facility] Comment on above: Performed By: #### C FÉLIX, BMP #### [address] Basic Metabolic Panelon 10-13 Anion gap [Moles/Vol] 12.8 mmol/L Normal 6.0-15.0 [facility] Comment on above: Performed By: #### C FÉLIX, BMP #### [address] Calcium [Mass/Vol] 9.6 mg/dL Normal 8.6-10.3 [facility] Comment on above: Performed By: #### C FÉLIX, BMP #### [address] Chloride [Moles/Vol] 97 mmol/L Low 98-107 [facility] Comment on above: Performed By: #### C FÉLIX, BMP #### [address] CO2 [Moles/Vol] 27.0 mmol/L Normal 21.0-31.0 [facility] Comment on above: Performed By: #### C FÉLIX, BMP #### [address] Creatinine [Mass/Vol] 5.09 mg/dL High 0.70-1.30 [facility] Comment on above: Performed By: #### C BCJULIO CESAR, BMP #### [address] Creatinine Clr Calc Pharmacy 17.77 Normal [facility] Comment on above: Performed By: #### C FÉLIX, BMP #### [facility] [address] [place] [address] [place] GFR/1.73 sq M.predicted MDRD (S/P/Bld) [Vol rate/Area] 11.275 mL/min/{1.73_m2} Normal [facility] Comment on above: Performed By: #### C FÉLIX, BMP #### [address] Glucose [Mass/Vol] 109 mg/dL High 70-100 [facility] Comment on above: Result Comment: [place] Glucose Reference Range is dependent on time and content of last meal. Glucose of more than 200 mg/dL in a nonstressed, ambulatory subject supports the diagnosis of Diabetes Mellitus. ADA recommended reference range Performed By: #### C FÉLIX, BMP #### [address] Potassium [Moles/Vol] 3.8 mmol/L Normal 3.5-5.1 [facility] Comment on above: Performed By: #### C FÉLIX, BMP #### [address] Sodium [Moles/Vol] 133 mmol/L Low 136-145 [facility] Comment on above: Performed By: #### C FÉLIX, BMP #### [address] Urea nitrogen [Mass/Vol] 51 mg/dL High 7-25 [facility] Comment on above: Performed By: #### C FÉLIX, BMP #### [address] Blood toxic granulation dete ction by light microscopyOrdered By: Jose Luis Siddiqui on 11-02-2023 Toxic granules LM Ql (Bld) Slight [facility] Coagulation Profileon 2023 aPTT Coag (Bld) [Time] 27.3 s Normal 25.1-36.5 [facility] Comment on above: Result Comment: A he matocrit value greater than 55% may lead to inaccurate results in coagulation testing. Patients having hematocrit values >55% require a special collection tube for coagulation studies. Please contact the laboratory at [phone] for redraw instructions. PERFORMED BY: [place] [address] PATHOLOGIST SLIP TENDER BRANDEN WHATLEY M.D. Performed By: #### C BCNO, BMP #### [address] FE PROon 11-02-2023 % Iron Saturation Not performed Normal 20-50 [facility] Comment on above: Performed By: #### C BCNO, BMP #### [address] Total Iron Binding Capacity Not performed Normal 255-450 [facility] Comment on above: Performed By: #### C BCNO, BMP #### [address] Ferritin [Mass/volume] in Se rum or PlasmaOrdered By: Norma Lopez on 11-02-2023 Ferritin [Mass/Vol] 909.6 ng/mL High 23.9-336.2 [facility] Comment on above: Result Comment: PERF ORMED BY: [place] [address] PATHOLOGIST SLIP TENDER BRANDEN WHATLEY M.D. Performed By: #### C BCNO, BMP #### [address] Glucose Poct Glucometerson 0 11-02-2023 Glucose [Mass/Vol] 157 mg/dL Normal [facility] Comment on above: Result Comment: [facility] Glucose Reference Range is dependent on time and content of last meal. Glucose of more than 200 mg/dL in a nonstressed, ambulatory subject supports the diagnosis of Diabetes Mellitus. PERFORMED BY: [place] [address] PATHOLOGIST SLIP TENDER BRANDEN WHATLEY M.D. Performed By: #### C BC, BNP, HS TROP, PT #### [address] Glucose [Mass/Vol] 118 mg/dL Normal [facility] Comment on above: Result Comment: [facility] Glucose Reference Range is dependent on time and content of last meal. Glucose of more than 200 mg/dL in a nonstressed, ambulatory subject supports the diagnosis of Diabetes Mellitus. PERFORMED BY: [place] [address] PATHOLOGIST SLIP TENDER BRANDEN WHATLEY M.D. Performed By: #### C BC, BNP, HS TROP, PT #### [address] Glucose [Mass/Vol] 110 mg/dL Normal [facility] Comment on above: Result Comment: [place] Glucose Reference Range is dependent on time and content of last meal. Glucose of more than 200 mg/dL in a nonstressed, ambulatory subject supports the diagnosis of Diabetes Mellitus. PERFORMED BY: [place] [address] PATHOLOGIST SLIP TENDER BRANDEN WHATLEY M.D. Performed By: #### C BC, BNP, HS TROP, PT #### [address] Glucose [Mass/Vol] 113 mg/dL Normal [facility] Comment on above: Result Comment: [place] Glucose Reference Range is dependent on time and content of last meal. Glucose of more than 200 mg/dL in a nonstressed, ambulatory subject supports the diagnosis of Diabetes Mellitus. PERFORMED BY: [place] [address] PATHOLOGIST SLIP TENDER BRANDEN WHATLEY M.D. Performed By: #### C BCNO, BMP #### [address] INR in Platelet poor plasma by Coagulation assayOrdered By: Jose Luis Siddiqui on 11-02-2023 INR Coag (PPP) [Relative time] 1.1 {INR} [facility] Comment on above: INR Therapeutic Rang e A) Pre- and Peroperative OAT started two weeks before surgery. NOT HIP SURGERY: 1.5 - 2.5 HIP SURGERY: 2 - 3B) Primary and secondary prevention of venous THROMBOSIS: 2 - 3C) Active venous thrombosis, pulmonary embolismand prevention of recurrent venous thrombosis: 2 - 3D) Prevention of arterial thromboembolismincluding patients with mechanical heart valves: 3 - 4.5 Result Comment: INR Therapeutic Range A) Pre- [...] with mechanical heart valves: 3 - 4.5 Performed By: #### C FÉLIX, BMP #### [address] Iron [Mass/volume] in Serum or PlasmaOrdered By: Norma Lopez on 11-02-2023 Iron [Mass/Vol] 47 ug/dL Low 50-212 [facility] Comment on above: Performed By: #### C FÉLIX, BMP #### [address] Iron binding capacity [Mass/ volume] in Serum or PlasmaOrdered By: Norma Lopez on 11-02-2023 Iron binding capacity [Mass/Vol] [facility] Comment on above: Test not performed Iron saturation [Mass Fracti on] in Serum or PlasmaOrdered By: Norma Lopez on 11-02-2023 Iron saturation [Mass fraction] [facility] Comment on above: Test not performed Leukocytes [#/volume] in Blo od by Automated countOrdered By: Jose Luis Siddiqui on 11-02-2023 WBC (Bld) [#/Vol] 3.9 10*3/uL Low 4.1-10.5 [facility] Comment on above: Performed By: #### C FÉLIX, BMP #### [place] [address] [place] Lymphocytes [#/volume] in Bl ood by Automated countOrdered By: Jose Luis Siddiqui on 11-02-2023 Lymphocytes (Bld) [#/Vol] 0.3 10*3/uL Low 1.00-4.8 [facility] Comment on above: Performed By: #### C FÉLIX, BMP #### [place] [address] [place] Lymphocytes/100 leukocytes i n Blood by Automated countOrdered By: Jose Luis Siddiqui on 11-02-2023 Lymphocytes/100 WBC (Bld) 8.8 % . [facility] Comment on above: Performed By: #### C FÉLIX, BMP #### [facility] [address] [place] [address] [place] Magnesium [Mass/volume] in S liv or PlasmaOrdered By: Jose Luis Siddiqui on 11-02-2023 Magnesium [Mass/Vol] 1.8 mg/dL Low 1.9-2.7 [facility] Comment on above: Result Comment: PERF ORMED BY: [place] [address] PATHOLOGIST SLIP TENDER BRANDEN WHATLEY M.D. Performed By: #### C FÉLIX, BMP #### [facility] [address] [place] [address] [place] Neutrophils [#/volume] in Bl ood by Automated countOrdered By: Jose Luis Siddiqui on 11-02-2023 Neutrophils (Bld) [#/Vol] 2.9 10*3/uL 1.8-7.7 [facility] Comment on above: Performed By: #### C FÉLIX, BMP #### [facility] [address] [place] [address] [place] Nucleated erythrocytes [Pres ence] in Blood by Automated countOrdered By: Jose Luis Siddiqui on 11-02-2023 Nucleated RBC Auto Ql (Bld) 0.1 /100{WBC} 0-0.5 [facility] Platelet adequacy [Presence] in Blood by Light microscopyOrdered By: Jose Luis Siddiqui on 11-02-2023 Platelets LM Ql (Bld) Decreased Normal [facility] Platelet morphology finding [Identifier] in BloodOrdered By: Jose Luis Siddiqui on 11-02-2023 Platelet morphology finding Nom (Bld) N/A [facility] Platelets Large [Presence] i n Blood by Light microscopyOrdered By: Jose Luis Siddiqui on 11-02-2023 Platelets Large LM Ql (Bld) Slight [facility] Polychromasia [Presence] in Blood by Light microscopyOrdered By: Jose Luis Siddiqui on 11-02-2023 Polychromasia LM Ql (Bld) Slight [facility] Prothrombin time (PT)Ordered By: Jose Luis Siddiqui on 11-02-2023 PT Coag (PPP) [Time] 12.5 s 9.0-12.9 [facility] Comment on above: A hematocrit value g reater than 55% may lead to inaccurate results in coagulation testing. Patients having hematocrit values >55% require a special collection tube for coagulation studies. Please contact the laboratory at [phone] for redraw instructions. Result Comment: A he matocrit value greater than 55% may lead to inaccurate results in coagulation testing. Patients having hematocrit values >55% require a special collection tube for coagulation studies. Please contact the laboratory at [phone] for redraw instructions. Performed By: #### C FÉLIX, DONA #### [address] RBC morphologyOrdered By: Aura Siddiqui on 11-02-2023 RBC morphology finding Nom (Bld) N/A [facility] Scan and CBCon 11-02-2023 Erythrocyte distribution width (RBC) [Ratio] 15.2 % High 12.0-14.8 [facility] Comment on above: Performed By: #### C FÉLIX, BMP #### [address] Hematocrit (Bld) [Volume fraction] 23.3 % Low 38.8-50.0 [facility] Comment on above: Performed By: #### C FLÉIX, BMP #### [address] Hemoglobin (Bld) [Mass/Vol] 7.9 g/dL Low 13.0-17.0 [facility] Comment on above: Performed By: #### C FÉLIX, BMP #### [address] Large Platelets Slight Normal [facility] Comment on above: Result Comment: PERF ORMED BY: [place] [address] PATHOLOGIST SLIP TENDER BRANDEN WHATLEY M.D. Performed By: #### C BCNO, BMP #### [address] MCH (RBC) [Entitic mass] 29.2 pg Normal 27.5-35.2 [facility] Comment on above: Performed By: #### C BCNO, BMP #### [address] MCV (RBC) [Entitic vol] 85.8 fL Normal 83.5-101 [facility] Comment on above: Performed By: #### C BCNO, BMP #### [address] Mean Corpuscular HGB Conc 34.1 g/dL Normal 32.5-35.6 [facility] Comment on above: Performed By: #### C BCNO, BMP #### [address] NRBC% 0.1 /100{WBC} Normal 0-0.5 [facility] Comment on above: Performed By: #### C BCNO, BMP #### [address] Platelet Estimate Decreased Normal Normal [facility] Comment on above: Performed By: #### C BCNO, BMP #### [address] Platelet mean volume (Bld) [Entitic vol] 8.9 fL Normal 6.6-10.1 [facility] Comment on above: Performed By: #### C BCNO, BMP #### [address] Platelets (Bld) [#/Vol] 63 10*3/uL Low 150-450 [facility] Comment on above: Performed By: #### C BCNO, BMP #### [address] Polychromasia Slight Normal [facility] Comment on above: Performed By: #### C BCNO, BMP #### [address] [place] [address] [place] RBC (Bld) [#/Vol] 2.72 10*6/uL Low 3.90-5.60 [facility] Comment on above: Performed By: #### C BCNO, BMP #### [address] Toxic Granulation Slight Normal [facility] Comment on above: Performed By: #### C BCNO, BMP #### [address] Toxic Vacuolation Slight Normal [facility] Comment on above: Performed By: #### C BCNO, BMP #### [address] Toxic leukocyte vacuolation detectionOrdered By: Jose Luis Siddiqui on 11-02-2023 Leukocyte toxic vacuoles LM Ql (Bld) Slight [facility] Transferrin [Mass/volume] in Serum or PlasmaOrdered By: Norma Lopez on 11-02-2023 Transferrin [Mass/Vol] mg/dL Low 203-362 [facility] Comment on above: Performed By: #### C BCNO, BMP #### [address] Capillary blood glucose manuel urement by glucometer (mass/volume)Ordered By: Krysta Singer on 10-31-2023 Glucose [Mass/Vol] 87 mg/dL [facility] Comment on above: Random Glucose Refer ence Range is dependent on time and content of last meal. Glucose of more than 200 mg/dL in a nonstressed, ambulatory subject supports the diagnosis of Diabetes Mellitus. Result Comment: [facility] Glucose Reference Range is dependent on time and content of last meal. Glucose of more than 200 mg/dL in a nonstressed, ambulatory subject supports the diagnosis of Diabetes Mellitus. PERFORMED BY: [place] [address] PATHOLOGIST SLIP TENDER BRANDEN WHATLEY M.D. Performed By: #### C BC, BNP, HS TROP, PT #### [address] Glucose Poct Glucometerson 0 7-19-2024 Glucose [Mass/Vol] 111 mg/dL Normal [facility] Comment on above: Result Comment: [place] om Glucose Reference Range is dependent on time and content of last meal. Glucose of more than 200 mg/dL in a nonstressed, ambulatory subject supports the diagnosis of Diabetes Mellitus. PERFORMED BY: [place] [address] PATHOLOGIST SLIP TENDER BRANDEN WHATLEY M.D. Performed By: #### C BC, BNP, HS TROP, PT #### [facility] [address] [place] [id number] [place] Glucose Poct Glucometerson 0 10-30-2023 Glucose [Mass/Vol] 124 mg/dL Normal [facility] Comment on above: Result Comment: [place] om Glucose Reference Range is dependent on time and content of last meal. Glucose of more than 200 mg/dL in a nonstressed, ambulatory subject supports the diagnosis of Diabetes Mellitus. PERFORMED BY: [place] [address] PATHOLOGIST SLIP TENDER BRANDEN WHATLEY M.D. Performed By: #### C BCNO, BMP #### [facility] [address] [place] [address] [place] Glucose [Mass/Vol] 81 mg/dL Normal [facility] Comment on above: Result Comment: [place] om Glucose Reference Range is dependent on time and content of last meal. Glucose of more than 200 mg/dL in a nonstressed, ambulatory subject supports the diagnosis of Diabetes Mellitus. PERFORMED BY: [place] [address] PATHOLOGIST SLIP TENDER BRANDEN WHATLEY M.D. Performed By: #### G LULS #### Point of Care testing , Glucose [Mass/Vol] 93 mg/dL Normal [facility] Comment on above: Result Comment: [place] om Glucose Reference Range is dependent on time and content of last meal. Glucose of more than 200 mg/dL in a nonstressed, ambulatory subject supports the diagnosis of Diabetes Mellitus. PERFORMED BY: [place] [id number] PATHOLOGIST SLIP TENDER BRANDEN WHATLEY M.D. Performed By: #### C BCNO, BMP #### [address] Heparin Induced Platelet Abo n 10-30-2023 Heparin Induced Platelet Ab 0.324 Normal 0.000-0.40 0 [facility] Comment on above: Result Comment: Perf ormed at: BN - [facility] [address] [id number] Director Medicaid: Precious Perrin MD, Phone: [phone] PERFORMED BY: [place] [address] PATHOLOGIST SLIP TENDER BRANDEN WHATLEY M.D. Performed By: #### H EP PLATAB #### [facility] , Serum platelet ab.heparin in duced detectionOrdered By: Norma Lopez on 10-30-2023 Heparin induced platelet Ab Ql (S) 0.324 OD 0.000-0.40 0 [facility] Comment on above: Performed at: [facility] [address] [id number] Director: Precious Perrin MD, Phone: [phone] Anisocytosis [Presence] in B lood by Light microscopyOrdered By: Krysta Singer on 10-29-2023 Anisocytosis Ql (Bld) Slight [facility] Comment on above: Performed By: #### H EP PLATAB #### [facility] , Automated basophil %Ordered By: Krysta Singer on 10-29-2023 Basophils/100 WBC (Bld) 0.7 % . [facility] Comment on above: Performed By: #### H EP PLATAB #### [facility] , Automated basophil countOrde red By: Krysta Singer on 10-29-2023 Basophils (Bld) [#/Vol] 0.0 10*3/uL 0.0-0.2 [facility] Comment on above: Performed By: #### H EP PLATAB #### [facility] , Automated blood monocyte cou ntOrdered By: Krysta Singer on 10-29-2023 Monocytes (Bld) [#/Vol] 0.6 10*3/uL 0.0-0.8 [facility] Comment on above: Performed By: #### H EP PLATAB #### [facility] , Automated eosinophil %Ordere d By: Krysta Singer on 10-29-2023 Eosinophils/100 WBC (Bld) 1.7 % . [facility] Comment on above: Performed By: #### H EP PLATAB #### [facility] , Automated eosinophil countOr dered By: Krysta Singer on 10-29-2023 Eosinophils (Bld) [#/Vol] 0.1 10*3/uL 0.0-0.45 [facility] Comment on above: Performed By: #### H EP PLATAB #### [facility] , Automated monocyte %Ordered By: Krysta Singer on 10-29-2023 Monocytes/100 WBC (Bld) 12.0 % . [facility] Comment on above: Performed By: #### H EP PLATAB #### [facility] , Automated neutrophil %Ordere d By: Krysta Singer on 10-29-2023 Neutrophils/100 WBC (Bld) 77.4 % . [facility] Comment on above: Performed By: #### H EP PLATAB #### [facility] , Basic Metabolic Panelon 07- Creatinine Clr Calc Pharmacy 15.55 Normal [facility] Comment on above: Result Comment: PERF ORMED BY: [facility] [address] [place] [address] PATHOLOGIST SLIP TENDER BRANDEN WHATLEY M.D. Performed By: #### H EP PLATAB #### [facility] , GFR/1.73 sq M.predicted MDRD (S/P/Bld) [Vol rate/Area] 9.256 mL/min/{1.73_m2} Normal [facility] Comment on above: Performed By: #### H EP PLATAB #### [facility] , Calcium [Mass/volume] in Ser um or PlasmaOrdered By: Krysta Singer on 10-29-2023 Calcium [Mass/Vol] 9.1 mg/dL 8.6-10.3 [facility] Comment on above: Performed By: #### H EP PLATAB #### [facility] , Carbon dioxide, total [Moles /volume] in Serum or PlasmaOrdered By: Krysta Singer on 10-29-2023 CO2 [Moles/Vol] 25.1 mmol/L 21.0-31.0 [facility] Comment on above: Performed By: #### H EP PLATAB #### [facility] , Chloride [Moles/volume] in S liv or PlasmaOrdered By: Krysta Singer on 10-29-2023 Chloride [Moles/Vol] 95 mmol/L Low 98-107 [facility] Comment on above: Performed By: #### H EP PLATAB #### [facility] , Creatinine [Mass/volume] in Serum or PlasmaOrdered By: Krysta Singer on 10-29-2023 Creatinine [Mass/Vol] 6.00 mg/dL High 0.70-1.30 [facility] Comment on above: Delta: 4.64 on 10/27-0430 Performed By: #### H EP PLATAB #### [facility] , Erythrocyte distribution wid th [Ratio] by Automated countOrdered By: Krysta Singer on 10-29-2023 Erythrocyte distribution width (RBC) [Ratio] 15.1 % High 12.0-14.8 [facility] Comment on above: Performed By: #### H EP PLATAB #### [facility] , Erythrocytes [#/volume] in B lood by Automated countOrdered By: Krysta Singer on 10-29-2023 RBC (Bld) [#/Vol] 2.64 10*6/uL Low 3.90-5.60 [facility] Comment on above: Performed By: #### H EP PLATAB #### [facility] , Glucose Poct Glucometerson 0 10-29-2023 Glucose [Mass/Vol] 110 mg/dL Normal [facility] Comment on above: Result Comment: [place] om Glucose Reference Range is dependent on time and content of last meal. Glucose of more than 200 mg/dL in a nonstressed, ambulatory subject supports the diagnosis of Diabetes Mellitus. PERFORMED BY: [place] [address] PATHOLOGIST SLIP TENDER BRANDEN WHATLEY M.D. Performed By: #### C BC, BNP, HS TROP, PT #### [place] [address] [place] Glucose [Mass/Vol] 88 mg/dL Normal [facility] Comment on above: Result Comment: [place] om Glucose Reference Range is dependent on time and content of last meal. Glucose of more than 200 mg/dL in a nonstressed, ambulatory subject supports the diagnosis of Diabetes Mellitus. PERFORMED BY: [place] [address] PATHOLOGIST SLIP TENDER BRANDEN WHATLEY M.D. Performed By: #### C BC, BNP, HS TROP, PT #### [place] [address] [place] Glucose [Mass/Vol] 107 mg/dL Normal [facility] Comment on above: Result Comment: [place] om Glucose Reference Range is dependent on time and content of last meal. Glucose of more than 200 mg/dL in a nonstressed, ambulatory subject supports the diagnosis of Diabetes Mellitus. PERFORMED BY: [place] [address] PATHOLOGIST SLIP TENDER BRANDEN WHATLEY M.D. Performed By: #### C BC, BNP, HS TROP, PT #### [facility] [address] [place] [id number] [place] Glucose [Mass/Vol] 111 mg/dL Normal [facility] Comment on above: Result Comment: [place] om Glucose Reference Range is dependent on time and content of last meal. Glucose of more than 200 mg/dL in a nonstressed, ambulatory subject supports the diagnosis of Diabetes Mellitus. PERFORMED BY: [facility] [address] [place] [address] PATHOLOGIST SLIP TENDER BRANDEN WHATLEY M.D. Performed By: #### C BCNO, BMP #### [facility] [address] Glucose [Mass/volume] in Ser um or PlasmaOrdered By: Krysta Singer on 10-29-2023 Glucose [Mass/Vol] 92 mg/dL 70-100 [facility] Comment on above: ADA recommended refe rence rangeRandom Glucose Reference Range is dependent on time and content of last meal. Glucose of more than 200 mg/dL in a nonstressed, ambulatory subject supports the diagnosis of Diabetes Mellitus. Result Comment: [place] om Glucose Reference Range is dependent on time and content of last meal. Glucose of more than 200 mg/dL in a nonstressed, ambulatory subject supports the diagnosis of Diabetes Mellitus. ADA recommended reference range Performed By: #### H EP PLATAB #### [facility] , Hematocrit [Volume Fraction] of Blood by Automated countOrdered By: Krysta Singer on 10-29-2023 Hematocrit (Bld) [Volume fraction] 22.6 % Low 38.8-50.0 [facility] Comment on above: Performed By: #### H EP PLATAB #### [facility] , Hemoglobin [Mass/volume] in BloodOrdered By: Krysta Singer on 10-29-2023 Hemoglobin (Bld) [Mass/Vol] 7.6 g/dL Low 13.0-17.0 [facility] Comment on above: Performed By: #### H EP PLATAB #### [facility] , Leukocytes [#/volume] correc peña for nucleated erythrocytes in Blood by Automated counOrdered By: Krysta Singer on 10-29-2023 WBC corrected for nucl RBC Auto (Bld) [#/Vol] 5.4 10*3/uL 4.1-10.5 [facility] Leukocytes [#/volume] in Blo od by Automated countOrdered By: Krysta Singer on 10-29-2023 WBC (Bld) [#/Vol] 5.4 10*3/uL 4.1-10.5 [facility] Comment on above: Performed By: #### H EP PLATAB #### [facility] , Lymphocytes [#/volume] in Bl ood by Automated countOrdered By: Krysta Singer on 10-29-2023 Lymphocytes (Bld) [#/Vol] 0.4 10*3/uL Low 1.00-4.8 [facility] Comment on above: Performed By: #### H EP PLATAB #### [facility] , Lymphocytes/100 leukocytes i n Blood by Automated countOrdered By: Krysta Singer on 10-29-2023 Lymphocytes/100 WBC (Bld) 8.2 % . [facility] Comment on above: Performed By: #### H EP PLATAB #### [facility] , MCH [Entitic mass] by Automa peña countOrdered By: Krysta Sniger on 10-29-2023 MCH (RBC) [Entitic mass] 28.8 pg 27.5-35.2 [facility] Comment on above: Performed By: #### H EP PLATAB #### [facility] , MCHC Auto (RBC) [Mass/Vol]Or dered By: Krysta Singer on 10-29-2023 MCHC (RBC) [Mass/Vol] 33.7 g/dL 32.5-35.6 [facility] MCV [Entitic volume] by Auto mated countOrdered By: Krysta Singer on 10-29-2023 MCV (RBC) [Entitic vol] 85.5 fL 83.5-101 [facility] Comment on above: Performed By: #### H EP PLATAB #### [facility] , Neutrophils [#/volume] in Bl ood by Automated countOrdered By: Krysta Singer on 10-29-2023 Neutrophils (Bld) [#/Vol] 4.1 10*3/uL 1.8-7.7 [facility] Comment on above: Performed By: #### H EP PLATAB #### [facility] , No Panel InformationOrdered By: Krysta Singer on 10-29-2023 Estimated GFR (CKD-EPI) 9.256 mL/Min [facility] Creatinine Clearance (Chem 15.55 [facility] Nucleated erythrocytes [Pres ence] in Blood by Automated countOrdered By: Krysta Singer on 10-29-2023 Nucleated RBC Auto Ql (Bld) 0.0 /100{WBC} 0-0.5 [facility] Ovalocyte detectionOrdered B y: Krysta Singer on 10-29-2023 Ovalocytes LM Ql (Bld) [facility] Platelet adequacy [Presence] in Blood by Light microscopyOrdered By: Krysta Singer on 10-29-2023 Platelets LM Ql (Bld) Decreased Normal [facility] Platelet mean volume [Entiti c volume] in Blood by Automated countOrdered By: Krysta Singer on 10-29-2023 Platelet mean volume (Bld) [Entitic vol] 9.3 fL 6.6-10.1 [facility] Comment on above: Performed By: #### H EP PLATAB #### [facility] , Platelet morphology finding [Identifier] in BloodOrdered By: Krysta Singer on 10-29-2023 Platelet morphology finding Nom (Bld) Normal Normal [facility] Platelets [#/volume] in Bloo d by Automated countOrdered By: Krysta Singer on 10-29-2023 Platelets (Bld) [#/Vol] 66 10*3/uL Low 150-450 [facility] Comment on above: Performed By: #### H EP PLATAB #### [facility] , Poikilocytosis [Presence] in Blood by Light microscopyOrdered By: Krysta Singer on 10-29-2023 Poikilocytosis LM Ql (Bld) Slight [facility] Potassium [Moles/volume] in Serum or PlasmaOrdered By: Krysta Singer on 10-29-2023 Potassium [Moles/Vol] 4.6 mmol/L 3.5-5.1 [facility] Comment on above: Performed By: #### H EP PLATAB #### [facility] , RBC morphologyOrdered By: Jeff Singer on 10-29-2023 RBC morphology finding Nom (Bld) N/A [facility] Scan and CBCon 10-29-2023 Mean Corpuscular HGB Conc 33.7 g/dL Normal 32.5-35.6 [facility] Comment on above: Performed By: #### H EP PLATAB #### [facility] , NRBC% 0.0 /100{WBC} Normal 0-0.5 [facility] Comment on above: Performed By: #### H EP PLATAB #### [facility] , Ovalocytes Slight Normal [facility] Comment on above: Performed By: #### H EP PLATAB #### [facility] , Platelet Estimate Decreased Normal Normal [facility] Comment on above: Performed By: #### H EP PLATAB #### [facility] , Platelet Morphology Normal Normal Normal [facility] Comment on above: Result Comment: PERF ORMED BY: [place] [address] [place] [address] PATHOLOGIST SLIP TENDER BRANDEN WHATLEY M.D. Performed By: #### H EP PLATAB #### [facility] , Poikilocytosis Slight Normal [facility] Comment on above: Performed By: #### H EP PLATAB #### [facility] , Serum or plasma anion gap de terminationOrdered By: Krysta Singer on 10-29-2023 Anion gap [Moles/Vol] 14.5 mmol/L 6.0-15.0 [facility] Comment on above: Performed By: #### H EP PLATAB #### [facility] , Sodium [Moles/volume] in Ser um or PlasmaOrdered By: Krysta Singer on 10-29-2023 Sodium [Moles/Vol] 130 mmol/L Low 136-145 [facility] Comment on above: Performed By: #### H EP PLATAB #### [facility] , Urea nitrogen [Mass/volume] in Serum or PlasmaOrdered By: Krysta Singer on 10-29-2023 Urea nitrogen [Mass/Vol] 74 mg/dL High 7-25 [facility] Comment on above: Performed By: #### H EP PLATAB #### [facility] , Basic Metabolic Panelon 10-12 Anion gap [Moles/Vol] 13.7 mmol/L Normal 6.0-15.0 [facility] Comment on above: Performed By: #### C BC, BNP, HS TROP, PT #### [facility] [address] Calcium [Mass/Vol] 9.0 mg/dL Normal 8.6-10.3 [facility] Comment on above: Performed By: #### C BC, BNP, HS TROP, PT #### [facility] [address] [place] [address] [place] Chloride [Moles/Vol] 95 mmol/L Low 98-107 [facility] Comment on above: Performed By: #### C BC, BNP, HS TROP, PT #### [facility] [address] [place] [address] [place] CO2 [Moles/Vol] 26.5 mmol/L Normal 21.0-31.0 [facility] Comment on above: Performed By: #### C BC, BNP, HS TROP, PT #### [facility] [address] [place] [address] [place] Creatinine [Mass/Vol] 4.64 mg/dL Significan t change up 0.70-1.30 [facility] Comment on above: Performed By: #### C BC, BNP, HS TROP, PT #### [facility] [address] [place] [address] Creatinine Clr Calc Pharmacy 20.10 Normal [facility] Comment on above: Result Comment: PERF ORMED BY: [place] [address] PATHOLOGIST SLIP TENDER BRANDEN WHATLEY M.D. Performed By: #### C BC, BNP, HS TROP, PT #### [address] GFR/1.73 sq M.predicted MDRD (S/P/Bld) [Vol rate/Area] 12.600 mL/min/{1.73_m2} Normal [facility] Comment on above: Performed By: #### C BC, BNP, HS TROP, PT #### [address] Glucose [Mass/Vol] 113 mg/dL High 70-100 [facility] Comment on above: Result Comment: [place] Glucose Reference Range is dependent on time and content of last meal. Glucose of more than 200 mg/dL in a nonstressed, ambulatory subject supports the diagnosis of Diabetes Mellitus. ADA recommended reference range Performed By: #### C BC, BNP, HS TROP, PT #### [address] Potassium [Moles/Vol] 4.2 mmol/L Normal 3.5-5.1 [facility] Comment on above: Performed By: #### C BC, BNP, HS TROP, PT #### [address] Sodium [Moles/Vol] 131 mmol/L Low 136-145 [facility] Comment on above: Performed By: #### C BC, BNP, HS TROP, PT #### [address] Urea nitrogen [Mass/Vol] 61 mg/dL High 7-25 [facility] Comment on above: Performed By: #### C BC, BNP, HS TROP, PT #### [place] [address] [place] Diff and CBCon 10-28-2023 Anisocytosis Ql (Bld) Slight Normal [facility] Comment on above: Performed By: #### C BC, BNP, HS TROP, PT #### [address] Erythrocyte distribution width (RBC) [Ratio] 15.4 % High 12.0-14.8 [facility] Comment on above: Performed By: #### C BC, BNP, HS TROP, PT #### [address] Giant Platelet Tally 1 /100{WBC} Normal [facility] Comment on above: Performed By: #### C BC, BNP, HS TROP, PT #### [address] Hematocrit (Bld) [Volume fraction] 21.9 % Low 38.8-50.0 [facility] Comment on above: Performed By: #### C BC, BNP, HS TROP, PT #### [address] Hemoglobin (Bld) [Mass/Vol] 7.4 g/dL Low 13.0-17.0 [facility] Comment on above: Performed By: #### C BC, BNP, HS TROP, PT #### [address] MCH (RBC) [Entitic mass] 28.8 pg Normal 27.5-35.2 [facility] Comment on above: Performed By: #### C BC, BNP, HS TROP, PT #### [address] MCV (RBC) [Entitic vol] 85.1 fL Normal 83.5-101 [facility] Comment on above: Performed By: #### C BC, BNP, HS TROP, PT #### [address] Mean Corpuscular HGB Conc 33.8 g/dL Normal 32.5-35.6 [facility] Comment on above: Performed By: #### C BC, BNP, HS TROP, PT #### [address] Myelocytes 1 % High 0-0 [facility] Comment on above: Performed By: #### C BC, BNP, HS TROP, PT #### [address] Ovalocytes Slight Normal [facility] Comment on above: Performed By: #### C BC, BNP, HS TROP, PT #### [address] Platelet Estimate Decreased Normal Normal [facility] Comment on above: Performed By: #### C BC, BNP, HS TROP, PT #### [address] Platelet mean volume (Bld) [Entitic vol] 9.6 fL Normal 6.6-10.1 [facility] Comment on above: Performed By: #### C BC, BNP, HS TROP, PT #### [address] Platelet Morphology Normal Normal Normal [facility] Comment on above: Result Comment: PERF ORMED BY: [place] [address] PATHOLOGIST SLIP TENDER BRANDEN WHATLEY M.D. Performed By: #### C BC, BNP, HS TROP, PT #### [address] Platelets (Bld) [#/Vol] 61 10*3/uL Low 150-450 [facility] Comment on above: Performed By: #### C BC, BNP, HS TROP, PT #### [address] Poikilocytosis Slight Normal [facility] Comment on above: Performed By: #### C BC, BNP, HS TROP, PT #### [address] RBC (Bld) [#/Vol] 2.57 10*6/uL Low 3.90-5.60 [facility] Comment on above: Performed By: #### C BC, BNP, HS TROP, PT #### [facility] [address] [place] [address] [place] WBC (Bld) [#/Vol] 3.0 10*3/uL Low 4.1-10.5 [facility] Comment on above: Performed By: #### C BC, BNP, HS TROP, PT #### [facility] [address] [place] [id number] [place] Eosinophils/100 leukocytes i n Blood by Manual countOrdered By: Krysta Singer on 10-28-2023 Eosinophils/100 WBC (Bld) 3 % 1-3 [facility] Comment on above: Performed By: #### C BC, BNP, HS TROP, PT #### [facility] [address] [place] [address] [place] Giant platelets/100 leukocyt es [Ratio] in Blood by Manual countOrdered By: Krysta Singer on 10-28-2023 Giant platelets/100 WBC Manual cnt (Bld) [Ratio] 1 /100{WBC} [facility] Glucose Poct Glucometerson 0 10-28-2023 Glucose [Mass/Vol] 122 mg/dL Normal [facility] Comment on above: Result Comment: [facility] Glucose Reference Range is dependent on time and content of last meal. Glucose of more than 200 mg/dL in a nonstressed, ambulatory subject supports the diagnosis of Diabetes Mellitus. PERFORMED BY: [place] [address] PATHOLOGIST SLIP TENDER BRANDEN WHATLEY M.D. Performed By: #### C BC, BNP, HS TROP, PT #### [place] [id number] [facility] Glucose [Mass/Vol] 96 mg/dL Normal [facility] Comment on above: Result Comment: [facility] Glucose Reference Range is dependent on time and content of last meal. Glucose of more than 200 mg/dL in a nonstressed, ambulatory subject supports the diagnosis of Diabetes Mellitus. PERFORMED BY: [place] [address] PATHOLOGIST SLIP TENDER BRANDEN WHATLEY M.D. Performed By: #### C BC, BNP, HS TROP, PT #### [facility] [address] Glucose [Mass/Vol] 103 mg/dL Normal [facility] Comment on above: Result Comment: [facility] Glucose Reference Range is dependent on time and content of last meal. Glucose of more than 200 mg/dL in a nonstressed, ambulatory subject supports the diagnosis of Diabetes Mellitus. PERFORMED BY: [place] [address] PATHOLOGIST SLIP TENDER BRANDEN WHATLEY M.D. Performed By: #### C BC, BNP, HS TROP, PT #### [facility] [address] [place] [address] [place] Lymphocytes/100 leukocytes i n Blood by Manual countOrdered By: Krysta Singer on 10-28-2023 Lymphocytes/100 WBC (Bld) 3 % Low 18-42 [facility] Comment on above: Performed By: #### C BC, BNP, HS TROP, PT #### [facility] [address] Manual blood segmented neutr ophils/100 leukocytesOrdered By: Krysta Singer on 10-28-2023 Segmented neutrophils/100 WBC (Bld) 81 % High 50-70 [facility] Comment on above: Performed By: #### C BC, BNP, HS TROP, PT #### [facility] [address] [place], [place] [id number] [place] Monocytes/100 leukocytes in Blood by Manual countOrdered By: Krysta Singer on 10-28-2023 Monocytes/100 WBC (Bld) 5 % 2-11 [facility] Comment on above: Performed By: #### C BC, BNP, HS TROP, PT #### [facility] [address] [place] [address] [place] Myelocytes/100 WBC Manual cn t (Bld)Ordered By: Krysta Singer on 10-28-2023 Myelocytes/100 WBC (Bld) 1 % High 0-0 [facility] Peripheral white blood cell differential % bands, microscopic examOrdered By: Krysta Singer on 10-28-2023 Band form neutrophils/100 WBC (Bld) 7 % High 0-5 [facility] Comment on above: Performed By: #### C BC, BNP, HS TROP, PT #### [address] Basic Metabolic Panelon 10-12 Anion gap [Moles/Vol] 12.7 mmol/L Normal 6.0-15.0 [facility] Comment on above: Performed By: #### H EP PLATAB #### [facility] , Calcium [Mass/Vol] 9.0 mg/dL Normal 8.6-10.3 [facility] Comment on above: Performed By: #### H EP PLATAB #### [facility] , Chloride [Moles/Vol] 96 mmol/L Low 98-107 [facility] Comment on above: Performed By: #### H EP PLATAB #### [facility] , CO2 [Moles/Vol] 22.5 mmol/L Normal 21.0-31.0 [facility] Comment on above: Performed By: #### H EP PLATAB #### [facility] , Creatinine [Mass/Vol] 6.42 mg/dL Significan t change up 0.70-1.30 [facility] Comment on above: Performed By: #### H EP PLATAB #### [facility] , Creatinine Clr Calc Pharmacy 14.53 Normal [facility] Comment on above: Result Comment: PERF ORMED BY: [place] [address] PATHOLOGIST SLIP TENDER BRANDEN WHATLEY M.D. Performed By: #### H EP PLATAB #### [facility] , GFR/1.73 sq M.predicted MDRD (S/P/Bld) [Vol rate/Area] 8.534 mL/min/{1.73_m2} Normal [facility] Comment on above: Performed By: #### H EP PLATAB #### [facility] , Glucose [Mass/Vol] 96 mg/dL Normal 70-100 [facility] Comment on above: Result Comment: [place] Glucose Reference Range is dependent on time and content of last meal. Glucose of more than 200 mg/dL in a nonstressed, ambulatory subject supports the diagnosis of Diabetes Mellitus. ADA recommended reference range Performed By: #### H EP PLATAB #### [facility] , Potassium [Moles/Vol] 4.2 mmol/L Normal 3.5-5.1 [facility] Comment on above: Performed By: #### H EP PLATAB #### [facility] , Sodium [Moles/Vol] 127 mmol/L Low 136-145 [facility] Comment on above: Performed By: #### H EP PLATAB #### [facility] , Urea nitrogen [Mass/Vol] 83 mg/dL High 7-25 [facility] Comment on above: Performed By: #### H EP PLATAB #### [facility] , ECG 12 lead ECGon 10-27-2023 ECG 12 lead ECG [facility] [place] [address] Electrocardiograph Report Signed Patient: Matt Honeycutt MR#: [id number] : 1950 Acct:[id number] Age/Sex: 73 / M ADM Date: 10/22/23 Loc: Room: [address] [place] [address] Type: ADM IN Attending Dr: Krysta Singer [...] Lateral leads Confirmed by [facility] ([id number][facility] on 10/28/2023 4:47:16 PM Referred By: Electronically Signed By: GRACIELA MUIR MD [facility] CENTERSudeep Transcribed By: MUS Signed By Aubrey Muir MD 10/28/23 1647 Normal [facility] Glucose Poct Glucometerson 0 10-27-2023 Glucose [Mass/Vol] 129 mg/dL Normal [facility] Comment on above: Result Comment: [place] Glucose Reference Range is dependent on time and content of last meal. Glucose of more than 200 mg/dL in a nonstressed, ambulatory subject supports the diagnosis of Diabetes Mellitus. PERFORMED BY: [place] [phone] PATHOLOGIST SLIP TENDER BRANDEN WHATLEY M.D. Performed By: #### C BC, BNP, HS TROP, PT #### [address] Commemt1 Glu2: Cleaned Meter Normal [facility] Comment on above: Result Comment: PERF ORMED BY: [place] [phone] PATHOLOGIST SLIP TENDER BRANDEN WHATLEY M.D. Performed By: #### H EP PLATAB #### [facility] , Glucose [Mass/Vol] 102 mg/dL Normal [facility] Comment on above: Result Comment: [place] Glucose Reference Range is dependent on time and content of last meal. Glucose of more than 200 mg/dL in a nonstressed, ambulatory subject supports the diagnosis of Diabetes Mellitus. Performed By: #### H EP PLATAB #### [facility] , Commemt1 Glu2: Cleaned Meter Normal [facility] Comment on above: Result Comment: PERF ORMED BY: [place] [address] PATHOLOGIST SLIP TENDER BRANDEN WHATLEY M.D. Performed By: #### H EP PLATAB #### [facility] , Glucose [Mass/Vol] 95 mg/dL Normal [facility] Comment on above: Result Comment: [place] om Glucose Reference Range is dependent on time and content of last meal. Glucose of more than 200 mg/dL in a nonstressed, ambulatory subject supports the diagnosis of Diabetes Mellitus. Performed By: #### H EP PLATAB #### [facility] , Commemt1 Glu2: Cleaned Meter Normal [facility] Comment on above: Result Comment: PERF ORMED BY: [place] [address] PATHOLOGIST SLIP TENDER BRANDEN WHATLEY M.D. Performed By: #### C BC, BNP, HS TROP, PT #### [address] Glucose [Mass/Vol] 106 mg/dL Normal [facility] Comment on above: Result Comment: [place] om Glucose Reference Range is dependent on time and content of last meal. Glucose of more than 200 mg/dL in a nonstressed, ambulatory subject supports the diagnosis of Diabetes Mellitus. Performed By: #### C BC, BNP, HS TROP, PT #### [facility] [address] [place] [address] No Panel InformationOrdered By: Krysta Singer on 10-27-2023 Bedside Glucose Comment Glu2: cleaned meter [facility] Arterial Blood Gason 10-25- 024 ABG Base Excess -0.8 mmol/L Normal -3.0-3.0 [facility] Comment on above: Performed By: #### H EP PLATAB #### [facility] , ABG Frac Inspired O2 32 % Normal [facility] Comment on above: Performed By: #### H EP PLATAB #### [facility] , ABG Liter Flow 3 Normal [facility] Comment on above: Performed By: #### H EP PLATAB #### [facility] , ABG Oxygen Content 5.3 mmol/L Low 6.6-9.7 [facility] Comment on above: Performed By: #### H EP PLATAB #### [facility] , ABG Oxygen Saturation 98.4 % Normal 95.0-100.0 [facility] Comment on above: Performed By: #### H EP PLATAB #### [facility] , ABG PCO2 39.6 mm[Hg] Normal 35.0-45.0 [facility] Comment on above: Performed By: #### H EP PLATAB #### [facility] , ABG PH 7.40 Normal 7.35-7.45 [facility] Comment on above: Performed By: #### H EP PLATAB #### [facility] , ABG PO2 127.0 mm[Hg] Off scale high 80.0-100.0 [facility] Comment on above: Performed By: #### H EP PLATAB #### [facility] , Respiratory Critical Normal [facility] Comment on above: Result Comment: Crit ical Value called on: 10/26/2023 at 17:41 PERFORMED BY: [facility] [address] [place] [address] PATHOLOGIST SLIP TENDER BRANDEN WHATLEY M.D. Performed By: #### H EP PLATAB #### [facility] , VBG Draw Site Right Brachial Normal [facility] Comment on above: Performed By: #### H EP PLATAB #### [facility] , Arterial Blood GasOrdered By : Dionicio Donald on 10-26-2023 CO2 [Moles/Vol] 25.1 mmol/L 23.0-27.0 [facility] Comment on above: Performed By: #### H EP PLATAB #### [facility] , HCO3 (Bld) [Moles/Vol] 23.9 mmol/L 23.0-29.0 [facility] Comment on above: Performed By: #### H EP PLATAB #### [facility] , Basic Metabolic Panelon 07- Anion gap [Moles/Vol] 12.1 mmol/L Normal 6.0-15.0 [facility] Comment on above: Performed By: #### H EP PLATAB #### [facility] , Calcium [Mass/Vol] 8.6 mg/dL Normal 8.6-10.3 [facility] Comment on above: Performed By: #### H EP PLATAB #### [facility] , Chloride [Moles/Vol] 96 mmol/L Low 98-107 [facility] Comment on above: Performed By: #### H EP PLATAB #### [facility] , CO2 [Moles/Vol] 24.9 mmol/L Normal 21.0-31.0 [facility] Comment on above: Performed By: #### H EP PLATAB #### [facility] , Creatinine [Mass/Vol] 5.53 mg/dL Significan t change up 0.70-1.30 [facility] Comment on above: Performed By: #### H EP PLATAB #### [facility] , Creatinine Clr Calc Pharmacy 16.87 Normal [facility] Comment on above: Result Comment: PERF ORMED BY: [place] [address] [place] [address] PATHOLOGIST SLIP TENDER BRANDEN WHATLEY M.D. Performed By: #### H EP PLATAB #### [facility] , GFR/1.73 sq M.predicted MDRD (S/P/Bld) [Vol rate/Area] 10.208 mL/min/{1.73_m2} Normal [facility] Comment on above: Performed By: #### H EP PLATAB #### [facility] , Glucose [Mass/Vol] 91 mg/dL Normal 70-100 [facility] Comment on above: Result Comment: [place] om Glucose Reference Range is dependent on time and content of last meal. Glucose of more than 200 mg/dL in a nonstressed, ambulatory subject supports the diagnosis of Diabetes Mellitus. ADA recommended reference range Performed By: #### H EP PLATAB #### [facility] , Potassium [Moles/Vol] 4.0 mmol/L Normal 3.5-5.1 [facility] Comment on above: Performed By: #### H EP PLATAB #### [facility] , Sodium [Moles/Vol] 129 mmol/L Low 136-145 [facility] Comment on above: Performed By: #### H EP PLATAB #### [facility] , Urea nitrogen [Mass/Vol] 72 mg/dL High 7-25 [facility] Comment on above: Performed By: #### H EP PLATAB #### [facility] , FE PROon 10-26-2023 % Iron Saturation Not performed Normal 20-50 [facility] Comment on above: Performed By: #### H EP PLATAB #### [facility] , Total Iron Binding Capacity Not performed Normal 255-450 [facility] Comment on above: Performed By: #### H EP PLATAB #### [facility] , Ferritin [Mass/volume] in Se rum or PlasmaOrdered By: Norma Lopez on 10-26-2023 Ferritin [Mass/Vol] 1013.9 ng/mL High 23.9-336.2 [facility] Comment on above: Performed By: #### H EP PLATAB #### [facility] , Folate [Mass/volume] in Seru m or PlasmaOrdered By: Dionicio Donald on 10-26-2023 Folate [Mass/Vol] 9.8 ng/mL >5.9 [facility] Comment on above: Folate reference ran ge: >5.9 ng/mlThe WHO technical consultation on folate and vitamin [id number] has determined that folate concentrations lessthan 4 ng/ml are considered deficient. Glucose Poct Glucometerson 0 10-26-2023 Glucose [Mass/Vol] 145 mg/dL Normal [facility] Comment on above: Result Comment: [place] om Glucose Reference Range is dependent on time and content of last meal. Glucose of more than 200 mg/dL in a nonstressed, ambulatory subject supports the diagnosis of Diabetes Mellitus. PERFORMED BY: [place] [address] PATHOLOGIST SLIP TENDER BRANDEN WAHTLEY M.D. Performed By: #### C BCNO, BMP #### [facility] [address] [place] [address] Glucose [Mass/Vol] 110 mg/dL Normal [facility] Comment on above: Result Comment: [place] om Glucose Reference Range is dependent on time and content of last meal. Glucose of more than 200 mg/dL in a nonstressed, ambulatory subject supports the diagnosis of Diabetes Mellitus. PERFORMED BY: [place] [phone] PATHOLOGIST SLIP TENDER BRANDEN WHATLEY M.D. Performed By: #### C BC, BNP, HS TROP, PT #### [address] Glucose [Mass/Vol] 103 mg/dL Normal [facility] Comment on above: Result Comment: [place] om Glucose Reference Range is dependent on time and content of last meal. Glucose of more than 200 mg/dL in a nonstressed, ambulatory subject supports the diagnosis of Diabetes Mellitus. PERFORMED BY: [place] [address] PATHOLOGIST SLIP TENDER BRANDEN WHATLEY M.D. Performed By: #### H EP PLATAB #### [facility] , Glucose [Mass/Vol] 121 mg/dL Normal [facility] Comment on above: Result Comment: [place] om Glucose Reference Range is dependent on time and content of last meal. Glucose of more than 200 mg/dL in a nonstressed, ambulatory subject supports the diagnosis of Diabetes Mellitus. PERFORMED BY: [place] [address] PATHOLOGIST SLIP TENDER BRANDEN WHATLEY M.D. Performed By: #### G LULS #### Point of Care testing , Iron [Mass/volume] in Serum or PlasmaOrdered By: Norma Lopez on 10-26-2023 Iron [Mass/Vol] 52 ug/dL 50-212 [facility] Comment on above: Performed By: #### H EP PLATAB #### [facility] , Iron binding capacity [Mass/ volume] in Serum or PlasmaOrdered By: Norma Lopez on 10-26-2023 Iron binding capacity [Mass/Vol] [facility] Comment on above: Test not performed Iron saturation [Mass Fracti on] in Serum or PlasmaOrdered By: Norma Lopez on 10-26-2023 Iron saturation [Mass fraction] [facility] Comment on above: Test not performed No Panel InformationOrdered By: Dionicio Donald on 10-26-2023 Arterial Blood Base Excess -0.8 mmol/L -3.0-3.0 [facility] Arterial Blood Oxygen Content 5.3 mmol/L Low 6.6-9.7 [facility] Arterial Blood Oxygen Saturation 98.4 % 95.0-100.0 [facility] Arterial Blood Partial Pressure CO2 39.6 mm[Hg] 35.0-45.0 [facility] Arterial Blood Partial Pressure O2 127.0 mm[Hg] High 80.0-100.0 [facility] Arterial Blood pH 7.40 7.35-7.45 [facility] Blood Gas Critical Value See comment [facility] Comment on above: Critical Value pascal d on: 10/26/2023 at 17:41 Blood Gas Liter Flow 3 L/min [facility] Blood Gas Sample Site Right brachial [facility] FiO2 32 % [facility] Transferrin [Mass/volume] in Serum or PlasmaOrdered By: Norma Lopez on 10-26-2023 Transferrin [Mass/Vol] mg/dL Low 203-362 [facility] Comment on above: Performed By: #### H EP PLATAB #### [facility] , Vit. B12/Folate Profileon Folate 9.8 ng/mL Normal >5.9 [facility] Comment on above: Result Comment: [place]anna te reference range: >5.9 ng/ml The WHO technical consultation on folate and vitamin b12 deficiencies has determined that folate concentrations less than 4 ng/ml are considered deficient. PERFORMED BY: [address] [place] [id number] PATHOLOGIST SLIP TENDER BRANDEN WHATLEY M.D. Performed By: #### H EP PLATAB #### [facility] , Vitamin B12 ser/plasOrdered By: Dionicio Donald on 10-26-2023 Cobalamin (Vitamin B12) [Mass/Vol] 607 pg/mL 180-914 [facility] Comment on above: Performed By: #### H EP PLATAB #### [facility] , Glucose Poct Glucometerson 0 10-25-2023 Commemt1 Glu2: Cleaned Meter Normal [facility] Comment on above: Result Comment: PERF ORMED BY: [address] [place] [id number] PATHOLOGIST SLIP TENDER BRANDEN WHATLEY M.D. Performed By: #### G LULS #### Point of Care testing , Glucose [Mass/Vol] 177 mg/dL Normal [facility] Comment on above: Result Comment: [place] om Glucose Reference Range is dependent on time and content of last meal. Glucose of more than 200 mg/dL in a nonstressed, ambulatory subject supports the diagnosis of Diabetes Mellitus. Performed By: #### G LULS #### Point of Care testing , Commemt1 Glu2: Cleaned Meter Normal [facility] Comment on above: Result Comment: PERF ORMED BY: [address]UST[address] [place] [id number] PATHOLOGIST SLIP TENDER BRANDEN WHATLEY M.D. Performed By: #### G LULS #### Point of Care testing , Glucose [Mass/Vol] 95 mg/dL Normal [facility] Comment on above: Result Comment: [place] om Glucose Reference Range is dependent on time and content of last meal. Glucose of more than 200 mg/dL in a nonstressed, ambulatory subject supports the diagnosis of Diabetes Mellitus. Performed By: #### G LULS #### Point of Care testing , Glucose [Mass/Vol] 117 mg/dL Normal [facility] Comment on above: Result Comment: [facility] Glucose Reference Range is dependent on time and content of last meal. Glucose of more than 200 mg/dL in a nonstressed, ambulatory subject supports the diagnosis of Diabetes Mellitus. PERFORMED BY: [facility] [address] [place] [address] PATHOLOGIST SLIP TENDER BRANDEN WHATLEY M.D. Performed By: #### G LULS #### Point of Care testing , Glucose [Mass/Vol] 107 mg/dL Normal [facility] Comment on above: Result Comment: [facility] Glucose Reference Range is dependent on time and content of last meal. Glucose of more than 200 mg/dL in a nonstressed, ambulatory subject supports the diagnosis of Diabetes Mellitus. PERFORMED BY: [facility] [address] [facility] [place] [address] PATHOLOGIST SLIP TENDER BRANDEN WHATLEY M.D. Performed By: #### G LULS #### Point of Care testing , Basic Metabolic Panel 10-12 Anion gap [Moles/Vol] 14.8 mmol/L Normal 6.0-15.0 [facility] Comment on above: Performed By: #### G LULS #### Point of Care testing , Calcium [Mass/Vol] 8.6 mg/dL Normal 8.6-10.3 [facility] Comment on above: Performed By: #### G LULS #### Point of Care testing , Chloride [Moles/Vol] 97 mmol/L Low 98-107 [facility] Comment on above: Performed By: #### G LULS #### Point of Care testing , CO2 [Moles/Vol] 24.2 mmol/L Normal 21.0-31.0 [facility] Comment on above: Performed By: #### G LULS #### Point of Care testing , Creatinine [Mass/Vol] 6.64 mg/dL Significan t change up 0.70-1.30 [facility] Comment on above: Performed By: #### G LULS #### Point of Care testing , Creatinine Clr Calc Pharmacy 14.05 Normal [facility] Comment on above: Result Comment: PERF ORMED BY: [place] [address] PATHOLOGIST SLIP TENDER BRANDEN WHATLEY M.D. Performed By: #### G LULS #### Point of Care testing , GFR/1.73 sq M.predicted MDRD (S/P/Bld) [Vol rate/Area] 8.196 mL/min/{1.73_m2} Normal [facility] Comment on above: Performed By: #### G LULS #### Point of Care testing , Glucose [Mass/Vol] 102 mg/dL High 70-100 [facility] Comment on above: Result Comment: [place] Glucose Reference Range is dependent on time and content of last meal. Glucose of more than 200 mg/dL in a nonstressed, ambulatory subject supports the diagnosis of Diabetes Mellitus. ADA recommended reference range Performed By: #### G LULS #### Point of Care testing , Potassium [Moles/Vol] 3.0 mmol/L Low 3.5-5.1 [facility] Comment on above: Performed By: #### G LULS #### Point of Care testing , Sodium [Moles/Vol] 133 mmol/L Low 136-145 [facility] Comment on above: Performed By: #### G LULS #### Point of Care testing , Urea nitrogen [Mass/Vol] 95 mg/dL Significant change up 25 [facility] Comment on above: Performed By: #### G LULS #### Point of Care testing , Glucose Poct Glucometerson 0 10-24-2023 Glucose [Mass/Vol] 120 mg/dL Normal [facility] Comment on above: Result Comment: [place] Glucose Reference Range is dependent on time and content of last meal. Glucose of more than 200 mg/dL in a nonstressed, ambulatory subject supports the diagnosis of Diabetes Mellitus. PERFORMED BY: [facility] [address] [place] [address] PATHOLOGIST SLIP TENDER BRANDEN WHATLEY M.D. Performed By: #### C BC, BNP, HS TROP, PT #### [address] Glucose [Mass/Vol] 117 mg/dL Normal [facility] Comment on above: Result Comment: [place] om Glucose Reference Range is dependent on time and content of last meal. Glucose of more than 200 mg/dL in a nonstressed, ambulatory subject supports the diagnosis of Diabetes Mellitus. PERFORMED BY: [place] [address] PATHOLOGIST SLIP TENDER BRANDEN WHATLEY M.D. Performed By: #### G LULS #### Point of Care testing , Glucose [Mass/Vol] 117 mg/dL Normal [facility] Comment on above: Result Comment: [place] Glucose Reference Range is dependent on time and content of last meal. Glucose of more than 200 mg/dL in a nonstressed, ambulatory subject supports the diagnosis of Diabetes Mellitus. PERFORMED BY: [place] [address] PATHOLOGIST SLIP TENDER BRANDEN WHATLEY M.D. Performed By: #### G LULS #### Point of Care testing , Hepatitis Acute Panel 10-12 HBsAg Screen Negative Normal Negative [facility] Comment on above: Order Comment: LINE DRAW Performed By: #### C BC, BNP, HS TROP, PT #### [address] Hepatitis A Antibody IgM Negative Normal Negative [facility] Comment on above: Order Comment: LINE DRAW Performed By: #### C BC, BNP, HS TROP, PT #### [address] Hepatitis B Core Antibody IgM Negative Normal Negative [facility] Comment on above: Order Comment: LINE DRAW Performed By: #### C BC, BNP, HS TROP, PT #### [address] Hepatitis C Virus Antibody Non-Reactive Normal Non Reactive [facility] Comment on above: Order Comment: LINE DRAW Performed By: #### C BC, BNP, HS TROP, PT #### [address] Interpretation Hepatitis C Normal . [facility] Comment on above: Order Comment: LINE DRAW Result Comment: Not infected with HCV unless early or acute infection is suspected (which may be delayed in an immunocompromised individual), or other evidence exists to indicate HCV infection. Performed at: - [facility] [address] [place], [place] [id number] Director Medicaid: Mata Pérez PhD, Phone: [phone] PERFORMED BY: [place] [address] PATHOLOGIST SLIP TENDER BRANDEN WHATLEY M.D. Performed By: #### C BC, BNP, HS TROP, PT #### [address] Hepatitis B virus surface Ag [Presence] in Serum or Plasma by ImmunoassayOrdered By: Norma Lopez on 10-24-2023 HBV surface Ag IA Ql Negative Negative [facility] Hepatitis C virus IgG Ab [Pr esence] in Serum or Plasma by ImmunoassayOrdered By: Norma Lopez on 10-24-2023 HCV IgG IA Ql Non-Reactive Non Reactive [facility] Hepatitis C virus RNA [Units /volume] (viral load) in Serum or Plasma by JASON with probOrdered By: [facility]grayson Lopez on 10-24-2023 HCV RNA JASON+probe Qn N/A [facility] Hepatitis C virus RNA [log u nits/volume] (viral load) in Serum or Plasma by JASON withOrdered By: [facility] Hospitalgrayson Lopez on 10-24-2023 HCV RNA JASON+probe [Log units/Vol] N/A [facility] No Panel InformationOrdered By: Norma Lopez on 10-24-2023 Hepatitis A IgM Antibody Negative Negative [facility] Hepatitis B Core IgM Antibody Negative Negative [facility] Hepatitis C Interpretation See comment . [facility] Comment on above: Not infected with HC V unless early or acute infection issuspected (which may be delayed in an immunocompromisedindividual), or other evidence exists to indicate HCVinfection.Performed at: [email or web address] [place], [place] [id number] Director: Mata Pérez PhD, Phone: [phone] Basic Metabolic Panelon 07- Anion gap [Moles/Vol] 21.5 mmol/L High 6.0-15.0 [facility] Comment on above: Performed By: #### C FÉLIX, BMP #### [address] Calcium [Mass/Vol] 8.6 mg/dL Normal 8.6-10.3 [facility] Comment on above: Performed By: #### C FÉLIX, BMP #### [place] [address] [place] Chloride [Moles/Vol] 99 mmol/L Normal 98-107 [facility] Comment on above: Performed By: #### C FÉLIX, BMP #### [address] CO2 [Moles/Vol] 16.0 mmol/L Low 21.0-31.0 [facility] Comment on above: Performed By: #### C FÉLIX, BMP #### [address] Creatinine [Mass/Vol] 8.87 mg/dL Significan t change up 0.70-1.30 [facility] Comment on above: Performed By: #### C FÉLIX, BMP #### [place] [address] [place] Creatinine Clr Calc Pharmacy 10.52 Normal [facility] Comment on above: Performed By: #### C FÉLIX, BMP #### [place] [address] [place] GFR/1.73 sq M.predicted MDRD (S/P/Bld) [Vol rate/Area] 5.791 mL/min/{1.73_m2} Normal [facility] Comment on above: Performed By: #### C FÉLIX, BMP #### [address] Glucose [Mass/Vol] 129 mg/dL High 70-100 [facility] Comment on above: Result Comment: [place] Glucose Reference Range is dependent on time and content of last meal. Glucose of more than 200 mg/dL in a nonstressed, ambulatory subject supports the diagnosis of Diabetes Mellitus. ADA recommended reference range Performed By: #### C FÉLIX, BMP #### [address] Potassium [Moles/Vol] 3.5 mmol/L Normal 3.5-5.1 [facility] Comment on above: Performed By: #### C BCNO, BMP #### [address] Sodium [Moles/Vol] 133 mmol/L Low 136-145 [facility] Comment on above: Performed By: #### C FÉLIX, BMP #### [address] Urea nitrogen [Mass/Vol] 143 mg/dL High 7-25 [facility] Comment on above: Performed By: #### C BCNO, BMP #### [address] Complete Blood Count Auto Di ffon 10-23-2023 Basophils (Bld) [#/Vol] 0.0 10*3/uL Normal 0.0-0.2 [facility] Comment on above: Result Comment: PERF ORMED BY: [place] [address] PATHOLOGIST SLIP TENDER BRANDEN WHATLEY M.D. Performed By: #### C BCNO, BMP #### [place] [address] [place] Basophils/100 WBC (Bld) 0.2 % Normal . [facility] Comment on above: Performed By: #### C BCNO, BMP #### [place] [address] [place] Eosinophils (Bld) [#/Vol] 0.1 10*3/uL Normal 0.0-0.45 [facility] Comment on above: Performed By: #### C BCNO, BMP #### [place] [address] [place] Eosinophils/100 WBC (Bld) 0.7 % Normal . [facility] Comment on above: Performed By: #### C BCNO, BMP #### [address] Erythrocyte distribution width (RBC) [Ratio] 16.5 % High 12.0-14.8 [facility] Comment on above: Performed By: #### C BCNO, BMP #### [address] Hematocrit (Bld) [Volume fraction] 25.3 % Low 38.8-50.0 [facility] Comment on above: Performed By: #### C BCNO, BMP #### [address] Hemoglobin (Bld) [Mass/Vol] 8.6 g/dL Low 13.0-17.0 [facility] Comment on above: Performed By: #### C BCNO, BMP #### [address] Lymphocytes (Bld) [#/Vol] 0.5 10*3/uL Low 1.00-4.8 [facility] Comment on above: Performed By: #### C BCNO, BMP #### [address] Lymphocytes/100 WBC (Bld) 4.1 % Normal . [facility] Comment on above: Performed By: #### C BCNO, BMP #### [address] MCH (RBC) [Entitic mass] 28.9 pg Normal 27.5-35.2 [facility] Comment on above: Performed By: #### C BCNO, BMP #### [address] MCV (RBC) [Entitic vol] 85.0 fL Normal 83.5-101 [facility] Comment on above: Performed By: #### C BCNO, BMP #### [address] Mean Corpuscular HGB Conc 34.0 g/dL Normal 32.5-35.6 [facility] Comment on above: Performed By: #### C BCNO, BMP #### [facility] [address] [place] [address] [place] Monocytes (Bld) [#/Vol] 1.1 10*3/uL High 0.0-0.8 [facility] Comment on above: Performed By: #### C BCNO, BMP #### [facility] [address] [place] [address] [place] Monocytes/100 WBC (Bld) 7.9 % Normal . [facility] Comment on above: Performed By: #### C BCNO, BMP #### [facility] [address] [place] [address] [place] Neutrophils (Bld) [#/Vol] 11.6 10*3/uL High 1.8-7.7 [facility] Comment on above: Performed By: #### C BCNO, BMP #### [facility] [address] Neutrophils/100 WBC (Bld) 87.1 % Normal . [facility] Comment on above: Performed By: #### C BCNO, BMP #### [place] [address] [place] NRBC% 0.1 /100{WBC} Normal 0-0.5 [facility] Comment on above: Performed By: #### C BCNO, BMP #### [facility] [address] [place] [address] [place] Platelet mean volume (Bld) [Entitic vol] 8.7 fL Normal 6.6-10.1 [facility] Comment on above: Performed By: #### C BCNO, BMP #### [facility] [address] [place] [address] [place] Platelets (Bld) [#/Vol] 92 10*3/uL Low 150-450 [facility] Comment on above: Performed By: #### C BCNO, BMP #### [facility] [address] [place] [address] [place] RBC (Bld) [#/Vol] 2.97 10*6/uL Low 3.90-5.60 [facility] Comment on above: Performed By: #### C BCNO, BMP #### [facility] [address] WBC (Bld) [#/Vol] 13.3 10*3/uL High 4.1-10.5 [facility] Comment on above: Performed By: #### C BCNO, BMP #### [facility] [address] echo transthoracicon [facility] echo transthoracic [facility] [address] [place] [address] [place] [address] Echocardiogram Signed Patient: Matt Honeycutt MR#: [id number] : 1950 Acct:[id number] Age/Sex: 73 / M ADM Date: 10/22/23 Loc: Room: [address] [place] [address] Type: ADM IN Attending Dr: Dionicio Donald MD Ordering Provider: Dionicio Donald MD Date of Service: 10/22/2302/04/1157 [facility] echo transthoracic: [place] Copies to: MD Alfred Strange MD, [facility] Weight: 296 lb Performed By: RODRIGUEZ Polo [...] 1.9 cm2 SUZETTE(V,D): 1.5 cm2 Transcribed By: SCV Performed At: 10/23/23 0856 Signed By: Alfred Daley MD, [facility] 10/23/23 1750 Normal [facility] Glucose Poct Glucometerson 0 10-23-2023 Commemt1 Glu2: Cleaned Meter Normal [facility] Comment on above: Result Comment: PERF ORMED BY: [place] [address] [place] [address] PATHOLOGIST SLIP TENDER BRANDEN WHATLEY M.D. Performed By: #### C BCNO, BMP #### [facility] [address] [place] [id number] [place] Glucose [Mass/Vol] 228 mg/dL Normal [facility] Comment on above: Result Comment: [place] om Glucose Reference Range is dependent on time and content of last meal. Glucose of more than 200 mg/dL in a nonstressed, ambulatory subject supports the diagnosis of Diabetes Mellitus. Performed By: #### C BCNO, BMP #### [facility] [address] [place] [address] [place] Glucose [Mass/Vol] 147 mg/dL Normal [facility] Comment on above: Result Comment: [place] om Glucose Reference Range is dependent on time and content of last meal. Glucose of more than 200 mg/dL in a nonstressed, ambulatory subject supports the diagnosis of Diabetes Mellitus. PERFORMED BY: [place] [address] PATHOLOGIST SLIP TENDER BRANDEN WHATLEY M.D. Performed By: #### C BCNO, BMP #### [address] Glucose [Mass/Vol] 118 mg/dL Normal [facility] Comment on above: Result Comment: [place] om Glucose Reference Range is dependent on time and content of last meal. Glucose of more than 200 mg/dL in a nonstressed, ambulatory subject supports the diagnosis of Diabetes Mellitus. PERFORMED BY: [place] [address] PATHOLOGIST SLIP TENDER BRANDEN WHATLEY M.D. Performed By: #### C BC, BNP, HS TROP, PT #### [place] [id number] [place] Magnesium [Mass/volume] in S liv or PlasmaOrdered By: Norma Lopez on 10-23-2023 Magnesium [Mass/Vol] 2.0 mg/dL 1.9-2.7 [facility] Comment on above: Result Comment: PERF ORMED BY: [place] [address] PATHOLOGIST SLIP TENDER BRANDEN WHATLEY M.D. Performed By: #### C BCNO, BMP #### [facility] [address] [place] [address] [place] Alanine aminotransferase [En zymatic activity/volume] in Serum or PlasmaOrdered By: Marky Dempsey on 10-22-2023 ALT [Catalytic activity/Vol] 32 U/L 7-52 [facility] Comment on above: Performed By: #### C BC, BNP, HS TROP, PT #### [address] Albumin [Mass/volume] in Ser um or Plasma by Bromocresol green (BCG) dye binding methoOrdered By: Norma Lopez on 10-22-2023 Albumin BCG dye [Mass/Vol] 2.4 g/dL Low 3.5-5.7 [facility] Alkaline phosphatase [Enzyma tic activity/volume] in Serum or PlasmaOrdered By: Marky Dempsey on 10-22-2023 ALP [Catalytic activity/Vol] 123 U/L High 34-104 [facility] Comment on above: Performed By: #### C BC, BNP, HS TROP, PT #### [facility] [address] [place] [address] Aspartate aminotransferase [ Enzymatic activity/volume] in Serum or PlasmaOrdered By: Marky Dempsey on 10-22-2023 AST [Catalytic activity/Vol] 17 U/L 13-39 [facility] Comment on above: Performed By: #### C BC, BNP, HS TROP, PT #### [facility] [address] [place] [address] BNP ser/plasOrdered By: Treasure Dempsey on 10-22-2023 Natriuretic peptide B (Bld) [Mass/Vol] 297.0 pg/mL High 5-100 [facility] Comment on above: Result Comment: PERF ORMED BY: [place] [address] PATHOLOGIST SLIP TENDER BRANDEN WHATLEY M.D. Performed By: #### C BC, BNP, HS TROP, PT #### [place] [address] [facility] Bacteria [Presence] in Urine by AutomatedOrdered By: Marky Dempsey on 10-22-2023 Bacteria Auto Ql (U) 1+ [HPF] High None Seen [facility] Beta Hydroxybuterateon 10-21 Beta Hydroxybuterate 0.27 mmol/L Normal 0.02-0.27 [facility] Comment on above: Result Comment: PERF ORMED BY: [facility] [address] [place] [address] PATHOLOGIST SLIP TENDER BRANDEN WHATLEY M.D. Performed By: #### C BC, BNP, HS TROP, PT #### [facility] [address] [place] [id number] [facility] Beta hydroxybutyrate [Moles/ volume] in Serum or PlasmaOrdered By: Marky Dempsey on 10-22-2023 Beta hydroxybutyrate [Moles/Vol] 0.27 mmol/L 0.02-0.27 [facility] Bilirubin Test strip Ql (U)O rdered By: Marky Dempsey on 10-22-2023 Bilirubin Ql (U) Negative Negative [facility] Bilirubin.total [Mass/volume ] in Serum or PlasmaOrdered By: Marky Dempsey on 10-22-2023 Bilirubin [Mass/Vol] 0.4 mg/dL 0.3-1.0 [facility] Comment on above: Performed By: #### C BC, BNP, HS TROP, PT #### [facility] [address] [place] [id number] [place] Color of Urine by AutoOrdere d By: Marky Dempsey on 10-22-2023 Color (U) Light-yellow Yellow [facility] Comment on above: Order Comment: Name Collection Type:: Wooten Catheter Performed By: #### G LULS #### Point of Care testing , Complete Blood Count Auto Di ffon 10-22-2023 Basophils (Bld) [#/Vol] 0.0 10*3/uL Normal 0.0-0.2 [facility] Comment on above: Result Comment: PERF ORMED BY: [facility] [address] [place] [id number] PATHOLOGIST SLIP TENDER BRANDEN WHATLEY M.D. Performed By: #### C BC, BNP, HS TROP, PT #### [address] Basophils/100 WBC (Bld) 0.3 % Normal . [facility] Comment on above: Performed By: #### C BC, BNP, HS TROP, PT #### [address] Eosinophils (Bld) [#/Vol] 0.1 10*3/uL Normal 0.0-0.45 [facility] Comment on above: Performed By: #### C BC, BNP, HS TROP, PT #### [address] Eosinophils/100 WBC (Bld) 0.6 % Normal . [facility] Comment on above: Performed By: #### C BC, BNP, HS TROP, PT #### [address] Erythrocyte distribution width (RBC) [Ratio] 16.3 % High 12.0-14.8 [facility] Comment on above: Performed By: #### C BC, BNP, HS TROP, PT #### [address] Hematocrit (Bld) [Volume fraction] 29.8 % Low 38.8-50.0 [facility] Comment on above: Performed By: #### C BC, BNP, HS TROP, PT #### [address] Hemoglobin (Bld) [Mass/Vol] 9.9 g/dL Low 13.0-17.0 [facility] Comment on above: Performed By: #### C BC, BNP, HS TROP, PT #### [address] Lymphocytes (Bld) [#/Vol] 0.5 10*3/uL Low 1.00-4.8 [facility] Comment on above: Performed By: #### C BC, BNP, HS TROP, PT #### [facility] [address] [place] [address] [place] Lymphocytes/100 WBC (Bld) 4.0 % Normal . [facility] Comment on above: Performed By: #### C BC, BNP, HS TROP, PT #### [facility] [address] MCH (RBC) [Entitic mass] 29.2 pg Normal 27.5-35.2 [facility] Comment on above: Performed By: #### C BC, BNP, HS TROP, PT #### [facility] [address] MCV (RBC) [Entitic vol] 87.6 fL Normal 83.5-101 [facility] Comment on above: Performed By: #### C BC, BNP, HS TROP, PT #### [address] Mean Corpuscular HGB Conc 33.3 g/dL Normal 32.5-35.6 [facility] Comment on above: Performed By: #### C BC, BNP, HS TROP, PT #### [facility] [address] [place] [address] [place] Monocytes (Bld) [#/Vol] 1.0 10*3/uL High 0.0-0.8 [facility] Comment on above: Performed By: #### C BC, BNP, HS TROP, PT #### [place] [address] [place] Monocytes/100 WBC (Bld) 7.7 % Normal . [facility] Comment on above: Performed By: #### C BC, BNP, HS TROP, PT #### [facility] [address] [place] [address] [place] Neutrophils (Bld) [#/Vol] 11.7 10*3/uL High 1.8-7.7 [facility] Comment on above: Performed By: #### C BC, BNP, HS TROP, PT #### [facility] [address] [place] [address] [place] Neutrophils/100 WBC (Bld) 87.4 % Normal . [facility] Comment on above: Performed By: #### C BC, BNP, HS TROP, PT #### [address] NRBC% 0.0 /100{WBC} Normal 0-0.5 [facility] Comment on above: Performed By: #### C BC, BNP, HS TROP, PT #### [address] Platelet mean volume (Bld) [Entitic vol] 8.6 fL Normal 6.6-10.1 [facility] Comment on above: Performed By: #### C BC, BNP, HS TROP, PT #### [address] Platelets (Bld) [#/Vol] 74 10*3/uL Low 150-450 [facility] Comment on above: Performed By: #### C BC, BNP, HS TROP, PT #### [address] RBC (Bld) [#/Vol] 3.40 10*6/uL Low 3.90-5.60 [facility] Comment on above: Performed By: #### C BC, BNP, HS TROP, PT #### [address] WBC (Bld) [#/Vol] 13.4 10*3/uL High 4.1-10.5 [facility] Comment on above: Performed By: #### C BC, BNP, HS TROP, PT #### [address] Comprehensive Metabolic Pane real 10-22-2023 Albumin [Mass/Vol] 2.1 g/dL Low 3.5-5.7 [facility] Comment on above: Performed By: #### C BC, BNP, HS TROP, PT #### [address] Anion gap [Moles/Vol] 23.9 mmol/L High 6.0-15.0 [facility] e [facility] Comment on above: Performed By: #### C BC, BNP, HS TROP, PT #### [facility] [address] [place] [address] [place] Calcium [Mass/Vol] 8.6 mg/dL Normal 8.6-10.3 [facility] Comment on above: Performed By: #### C BC, BNP, HS TROP, PT #### [facility] [address] [place] [address] [place] Chloride [Moles/Vol] 102 mmol/L Normal 98-107 [facility] Comment on above: Performed By: #### C BC, BNP, HS TROP, PT #### [facility] [address] [place] [address] [place] CO2 [Moles/Vol] 9.4 mmol/L Low 21.0-31.0 [facility] Comment on above: Performed By: #### C BC, BNP, HS TROP, PT #### [facility] [address] [place] [address] [place] Creatinine [Mass/Vol] 10.75 mg/dL High 0.70-1.30 [facility] e [facility] Comment on above: Performed By: #### C BC, BNP, HS TROP, PT #### [facility] [address] [place] [address] [place] Creatinine Clr Calc Pharmacy 8.68 Normal [facility] Comment on above: Performed By: #### C BC, BNP, HS TROP, PT #### [facility] [address] [place] [address] [place] GFR/1.73 sq M.predicted MDRD (S/P/Bld) [Vol rate/Area] 4.597 mL/min/{1.73_m2} Normal [facility] Comment on above: Performed By: #### C BC, BNP, HS TROP, PT #### [facility] [address] [place] [address] [place] Glucose [Mass/Vol] 129 mg/dL High 70-100 [facility] Comment on above: Result Comment: [place] om Glucose Reference Range is dependent on time and content of last meal. Glucose of more than 200 mg/dL in a nonstressed, ambulatory subject supports the diagnosis of Diabetes Mellitus. ADA recommended reference range Performed By: #### C BC, BNP, HS TROP, PT #### [facility] [address] [place] [address] [place] Potassium [Moles/Vol] 4.3 mmol/L Normal 3.5-5.1 [facility] Comment on above: Performed By: #### C BC, BNP, HS TROP, PT #### [facility] [address] [place] [address] [place] Sodium [Moles/Vol] 131 mmol/L Low 136-145 [facility] Comment on above: Performed By: #### C BC, BNP, HS TROP, PT #### [facility] [address] [place] [address] [place] Urea nitrogen [Mass/Vol] 192 mg/dL High 7-25 [facility] Comment on above: Performed By: #### C BC, BNP, HS TROP, PT #### [facility] [address] Creatinine [Mass/volume] in UrineOrdered By: Marky Dempsey on 10-22-2023 Creatinine (U) [Mass/Vol] 30.00 mg/dL [facility] Comment on above: No reference range e stablished Creatinine, Urine (Random)on 10-22-2023 Creatinine, Urine (Random) 30.00 mg/dL Normal [facility] Comment on above: Result Comment: No r eference range established Performed By: #### G LULS #### Point of Care testing , Dipstick and Microscopicon 0 10-22-2023 Bacteria,Urine 1+ High None Seen [facility] Comment on above: Order Comment: Name Collection Type:: Wooten Catheter Performed By: #### G LULS #### Point of Care testing , Bilirubin,Urine Negative Normal Negative [facility] Comment on above: Order Comment: Name Collection Type:: Wooten Catheter Performed By: #### G LULS #### Point of Care testing , [place] Yeast,Urine 4+ High None Seen [facility] Comment on above: Order Comment: Name Collection Type:: Wooten Catheter Result Comment: PERF ORMED BY: [id number] [place] [address] PATHOLOGIST SLIP TENDER BRANDEN WHATLEY M.D. Performed By: #### G LULS #### Point of Care testing , Glucose Ql (U) Normal Normal Normal [facility] Comment on above: Order Comment: Name Collection Type:: Wooten Catheter Performed By: #### G LULS #### Point of Care testing , Hyaline Casts,Urine None Normal 0-8 [facility] Comment on above: Order Comment: Name Collection Type:: Wooten Catheter Performed By: #### G LULS #### Point of Care testing , Nitrite,Urine Negative Normal Negative [facility] Comment on above: Order Comment: Name Collection Type:: Wooten Catheter Performed By: #### G LULS #### Point of Care testing , Occult Blood,Urine 3+ High Negative [facility] Comment on above: Order Comment: Name Collection Type:: Wooten Catheter Result Comment: PERF ORMED BY: [address] [place] [address] PATHOLOGIST SLIP TENDER BRANDEN WHATLEY M.D. Performed By: #### G LULS #### Point of Care testing , RBC,Urine 50-100 High 0-4 [facility] Comment on above: Order Comment: Name Collection Type:: Wooten Catheter Performed By: #### G LULS #### Point of Care testing , Specificy [place],Urine 1.009 Normal 1.001-1.03 0 [facility] Comment on above: Order Comment: Name Collection Type:: Wooten Catheter Performed By: #### G LULS #### Point of Care testing , Urobilinogen,Urine Normal Normal Normal [facility] Comment on above: Order Comment: Name Collection Type:: Wooten Catheter Performed By: #### G LULS #### Point of Care testing , WBC CLUMP, Urine Many High None Seen [facility] Comment on above: Order Comment: Name Collection Type:: Wooten Catheter Performed By: #### G LULS #### Point of Care testing , WBC,Urine Innumerable High 0-4 [facility] Comment on above: Order Comment: Name Collection Type:: Wooten Catheter Performed By: #### G LULS #### Point of Care testing , ECG 12 lead ECGon 10-22-2023 ECG 12 lead ECG [facility] [place] [address] Electrocardiograph Report Signed Patient: Matt Honeycutt MR#: [id number] : 1950 Acct:[id number] Age/Sex: 73 / M ADM Date: 10/22/23 Loc: Room: [address] [place] [address] Type: ADM IN Attending Dr: Dionicio Donald [...] has increased Confirmed by THUY DEL CASTILLO [facility], ALFRED ([id number]) on 10/22/2023 3:31:44 PM Referred By: Electronically Signed By: ALFRED DALEY MD [facility] Transcribed By: MUS Signed By Alfred Daley MD, FACC 10/22/23 1531 Normal [facility] Epithelial cells.squamous [# /area] in Urine sediment by Automated countOrdered By: Marky Dempsey on 10-22-2023 Epithelial cells.squamous Auto (Urine sed) [#/Area] N/A [facility] Erythrocytes [#/area] in Uri ne sediment by Automated countOrdered By: Marky Dempsey on 10-22-2023 RBC Auto (Urine sed) [#/Area] 50-100 [HPF] High 0-4 [facility] Glucose Poct Glucometerson 0 10-22-2023 Commemt1 Glu2: Cleaned Meter Normal [facility] Comment on above: Result Comment: PERF ORMED BY: [place] [phone] PATHOLOGIST SLIP TENDER BRANDEN WHATLEY M.D. Performed By: #### G LULS #### Point of Care testing , Glucose [Mass/Vol] 139 mg/dL Normal [facility] Comment on above: Result Comment: [place] om Glucose Reference Range is dependent on time and content of last meal. Glucose of more than 200 mg/dL in a nonstressed, ambulatory subject supports the diagnosis of Diabetes Mellitus. Performed By: #### G LULS #### Point of Care testing , Glucose [Mass/Vol] 134 mg/dL Normal [facility] Comment on above: Result Comment: [place] om Glucose Reference Range is dependent on time and content of last meal. Glucose of more than 200 mg/dL in a nonstressed, ambulatory subject supports the diagnosis of Diabetes Mellitus. PERFORMED BY: [place] [address] PATHOLOGIST SLIP TENDER BRANDEN WHATLEY M.D. Performed By: #### C BC, BNP, HS TROP, PT #### [address] Glucose [Mass/Vol] 132 mg/dL Normal [facility] Comment on above: Result Comment: [place] om Glucose Reference Range is dependent on time and content of last meal. Glucose of more than 200 mg/dL in a nonstressed, ambulatory subject supports the diagnosis of Diabetes Mellitus. PERFORMED BY: [place] [phone] PATHOLOGIST SLIP TENDER BRANDEN WHATLEY M.D. Performed By: #### C BCNO, BMP #### [address] Commemt1 Glu2: Cleaned Meter Normal [facility] Comment on above: Result Comment: PERF ORMED BY: [place] [phone] PATHOLOGIST SLIP TENDER BRANDEN WHATLEY M.D. Performed By: #### C BCNO, BMP #### [address] [place] [address] [place] Glucose [Mass/Vol] 141 mg/dL Normal [facility] Comment on above: Result Comment: [place] om Glucose Reference Range is dependent on time and content of last meal. Glucose of more than 200 mg/dL in a nonstressed, ambulatory subject supports the diagnosis of Diabetes Mellitus. Performed By: #### C BCNO, BMP #### [facility] [address] Glucose [Mass/Vol] 170 mg/dL Normal [facility] Comment on above: Result Comment: [facility] Glucose Reference Range is dependent on time and content of last meal. Glucose of more than 200 mg/dL in a nonstressed, ambulatory subject supports the diagnosis of Diabetes Mellitus. PERFORMED BY: [place] [address] PATHOLOGIST SLIP TENDER BRANDEN WHATLEY M.D. Performed By: #### C BC, BNP, HS TROP, PT #### [address] Glucose [Mass/volume] in Uri ne by Test stripOrdered By: Marky Dempsey on 10-22-2023 Glucose Test strip (U) [Mass/Vol] Normal mg/dL Normal [facility] Hemoglobin Test strip Ql (U) Ordered By: Marky Dempsey on 10-22-2023 Hemoglobin Ql (U) 3+ High Negative [facility] Hemogram CBC Without Diffon 10-22-2023 Erythrocyte distribution width (RBC) [Ratio] 16.1 % High 12.0-14.8 [facility] Comment on above: Performed By: #### G LULS #### Point of Care testing , Hematocrit (Bld) [Volume fraction] 26.8 % Low 38.8-50.0 [facility] Comment on above: Performed By: #### G LULS #### Point of Care testing , Hemoglobin (Bld) [Mass/Vol] 9.1 g/dL Low 13.0-17.0 [facility] Group Comment on above: Performed By: #### G LULS #### Point of Care testing , MCH (RBC) [Entitic mass] 28.8 pg Normal 27.5-35.2 [facility] Comment on above: Performed By: #### G LULS #### Point of Care testing , MCV (RBC) [Entitic vol] 85.4 fL Normal 83.5-101 [facility] Comment on above: Performed By: #### G LULS #### Point of Care testing , Mean Corpuscular HGB Conc 33.8 g/dL Normal 32.5-35.6 [facility] Comment on above: Performed By: #### G LULS #### Point of Care testing , Platelet mean volume (Bld) [Entitic vol] 8.9 fL Normal 6.6-10.1 [facility] Comment on above: Result Comment: PERF ORMED BY: [place] [address] [place] [address] PATHOLOGIST SLIP TENDER BRANDEN WHATLEY M.D. Performed By: #### G LULS #### Point of Care testing , Platelets (Bld) [#/Vol] 84 10*3/uL Low 150-450 [facility] Comment on above: Performed By: #### G LULS #### Point of Care testing , RBC (Bld) [#/Vol] 3.14 10*6/uL Low 3.90-5.60 [facility] Comment on above: Performed By: #### G LULS #### Point of Care testing , WBC (Bld) [#/Vol] 13.6 10*3/uL High 4.1-10.5 [facility] Comment on above: Performed By: #### G LULS #### Point of Care testing , Hyaline casts [#/area] in Ur ine sediment by Automated countOrdered By: Marky Dempsey on 10-22-2023 Hyaline casts Auto (Urine sed) [#/Area] None [LPF] 0-8 [facility] INR in Platelet poor plasma by Coagulation assayOrdered By: Marky Dempsey on 10-22-2023 INR Coag (PPP) [Relative time] 1.3 {INR} [facility] Comment on above: INR Therapeutic Rang e A) Pre- and Peroperative OAT started two weeks before surgery. NOT HIP SURGERY: 1.5 - 2.5 HIP SURGERY: 2 - 3B) Primary and secondary prevention of venous THROMBOSIS: 2 - 3C) Active venous thrombosis, pulmonary embolismand prevention of recurrent venous thrombosis: 2 - 3D) Prevention of arterial thromboembolismincluding patients with mechanical heart valves: 3 - 4.5 Result Comment: INR Therapeutic Range A) Pre- [...] heart valves: 3 - 4.5 PERFORMED BY: [place] [address] PATHOLOGIST SLIP TENDER BRANDEN WHATLEY M.D. Performed By: #### C BC, BNP, HS TROP, PT #### [facility] [address] [place], [place] [id number] [facility] Ketones [Presence] in Urine by Test stripOrdered By: Marky Dempsey on 10-22-2023 Ketones Ql (U) Negative Negative [facility] Comment on above: Order Comment: Name Collection Type:: Wooten Catheter Performed By: #### G LULS #### Point of Care testing , Lactate [Moles/volume] in Se rum or PlasmaOrdered By: Marky Dempsey on 10-22-2023 Lactate [Moles/Vol] 0.8 mmol/L 0.5-2.2 [facility] Comment on above: Result Comment: PERF ORMED BY: [place] [address] PATHOLOGIST SLIP TENDER BRANDEN WHATLEY M.D. Performed By: #### C BCNO, BMP #### [facility] [address] [place], [place] [id number] [facility] Leukocyte clumps [Presence] in Urine by AutomatedOrdered By: Marky Dempsey on 10-22-2023 Leukocyte clumps Auto Ql (U) Many [LPF] High None Seen [facility] Leukocyte esterase [Presence ] in Urine by Test stripOrdered By: Markyrobert Dempsey on 10-22-2023 Leukocyte esterase Test strip Ql (U) 4+ High Negative [facility] Comment on above: Order Comment: Name Collection Type:: Wooten Catheter Performed By: #### G LULS #### Point of Care testing , Leukocytes [#/area] in Urine sediment by Automated countOrdered By: Marky Dempsey on 10-22-2023 WBC Auto (Urine sed) [#/Area] Innumerable [HPF] High 0-4 [facility] Magnesiumon 10-22-2023 Magnesium [Mass/Vol] 1.7 mg/dL Low 1.9-2.7 [facility] Comment on above: Performed By: #### C BC, BNP, HS TROP, PT #### [facility] [address] [place] [address] [place] Nitrite Test strip Ql (U)Ord ered By: Marky Dempsey on 10-22-2023 Nitrite Ql (U) Negative Negative [facility] Parathyrin.intact [Mass/volu me] in Serum or PlasmaOrdered By: Marky Dempsey on 10-22-2023 Parathyrin.intact [Mass/Vol] 498.2 pg/mL High 12- [facility] Parathyroid Hormone Intacton 10-22-2023 Parathyroid Hormone Intact 498.2 pg/mL High [facility] Comment on above: Result Comment: PERF ORMED BY: [address] [place] [address] PATHOLOGIST SLIP TENDER BRANDEN WHATLEY M.D. Performed By: #### C BC, BNP, HS TROP, PT #### [facility] [address] [place] [id number] [place] Phosphate [Mass/volume] in S liv or PlasmaOrdered By: Norma Lopez on 10-22-2023 Phosphate [Mass/Vol] 7.6 mg/dL High 2.5-4.5 [facility] Comment on above: Performed By: #### G LULS #### Point of Care testing , Phosphoruson 07-10-2024 Phosphate [Mass/Vol] 10.6 mg/dL High 2.5-4.5 [facility] Comment on above: Performed By: #### C BC, BNP, HS TROP, PT #### [facility] [address] [place] [address] [place] Protein [Mass/volume] in Ser um or PlasmaOrdered By: Marky Dempsey on 10-22-2023 Protein [Mass/Vol] 4.9 g/dL Low 6.4-8.9 [facility] Comment on above: Performed By: #### C BC, BNP, HS TROP, PT #### [facility] [address] [place] [address] [place] Protein [Mass/volume] in Uri ne by Test stripOrdered By: Marky Dempsey on 10-22-2023 Protein (U) [Mass/Vol] 30 mg/dL High Negative [facility] Comment on above: Order Comment: Name Collection Type:: Wooten Catheter Performed By: #### G LULS #### Point of Care testing , Prothrombin time (PT)Ordered By: Marky Dempsey on 10-22-2023 PT Coag (PPP) [Time] 15.0 s High 9.0-12.9 [facility] Comment on above: A hematocrit value g reater than 55% may lead to inaccurate results in coagulation testing. Patients having hematocrit values >55% require a special collection tube for coagulation studies. Please contact the laboratory at [phone] for redraw instructions. Result Comment: A he matocrit value greater than 55% may lead to inaccurate results in coagulation testing. Patients having hematocrit values >55% require a special collection tube for coagulation studies. Please contact the laboratory at [phone] for redraw instructions. Performed By: #### C BC, BNP, HS TROP, PT #### [facility] [address] [place] [address] [facility] Renal Function Panelon 10-21 Albumin [Mass/Vol] 2.4 g/dL Low 3.5-5.7 [facility] Comment on above: Performed By: #### G LULS #### Point of Care testing , Anion gap [Moles/Vol] 25.7 mmol/L High 6.0-15.0 [facility] Comment on above: Performed By: #### G LULS #### Point of Care testing , Calcium [Mass/Vol] 8.4 mg/dL Low 8.6-10.3 [facility] Comment on above: Performed By: #### G LULS #### Point of Care testing , Chloride [Moles/Vol] 98 mmol/L Normal 98-107 [facility] Comment on above: Performed By: #### G LULS #### Point of Care testing , CO2 [Moles/Vol] 12.7 mmol/L Low 21.0-31.0 [facility] Comment on above: Performed By: #### G LULS #### Point of Care testing , Creatinine [Mass/Vol] 8.21 mg/dL Significan t change up 0.70-1.30 [facility] Comment on above: Performed By: #### G LULS #### Point of Care testing , Creatinine Clr Calc Pharmacy 11.36 Normal [facility] Comment on above: Result Comment: PERF ORMED BY: [address] [address] PATHOLOGIST SLIP TENDER BRANDEN WHATLEY M.D. Performed By: #### G LULS #### Point of Care testing , GFR/1.73 sq M.predicted MDRD (S/P/Bld) [Vol rate/Area] 6.353 mL/min/{1.73_m2} Normal [facility] Comment on above: Performed By: #### G LULS #### Point of Care testing , Glucose [Mass/Vol] 133 mg/dL High 70-100 [facility] Comment on above: Result Comment: [place] Glucose Reference Range is dependent on time and content of last meal. Glucose of more than 200 mg/dL in a nonstressed, ambulatory subject supports the diagnosis of Diabetes Mellitus. ADA recommended reference range Performed By: #### G LULS #### Point of Care testing , Potassium [Moles/Vol] 3.4 mmol/L Low 3.5-5.1 [facility] Comment on above: Performed By: #### G LULS #### Point of Care testing , Sodium [Moles/Vol] 133 mmol/L Low 136-145 [facility] Comment on above: Performed By: #### G LULS #### Point of Care testing , Urea nitrogen [Mass/Vol] 130 mg/dL Significant change up 725 [facility] Comment on above: Performed By: #### G LULS #### Point of Care testing , Serum globulin measurement b y calculation (mass/volume)Ordered By: Marky Dempsey on 10-22-2023 Globulin (S) [Mass/Vol] 2.8 g/dL [facility] Comment on above: Performed By: #### C BC, BNP, HS TROP, PT #### [facility] [address] [place] [address] Serum or plasma albumin/glob ulin mass ratioOrdered By: Marky Dempsey on 10-22-2023 Albumin/Globulin [Mass ratio] 0.8 {ratio} [facility] Comment on above: Performed By: #### C BC, BNP, HS TROP, PT #### [facility] [address] [place] [address] Sodium [Moles/volume] in Uri neOrdered By: Marky Dempsey on 10-22-2023 Sodium (U) [Moles/Vol] 71 mmol/L [facility] Comment on above: No reference range e stablished Result Comment: No r eference range established PERFORMED BY: [place] [address] PATHOLOGIST SLIP TENDER BRANDEN WHATLEY M.D. Performed By: #### G LULS #### Point of Care testing , Specific gravity Test strip (U) [Rel density]Ordered By: Marky Dempsey on 10-22-2023 Specific gravity (U) [Rel density] 1.009 1.001-1.03 0 [facility] Troponin I High Sensitivityo n 10-22-2023 Troponin I High Sensitivity 80.6 pg/mL Off scale high 0.0-20.0 [facility] Comment on above: Result Comment: Crit ical Result : Called to and read back by: BARAK ORTEZ at: 10/22/2023 11:33:35 by:PATY PERFORMED BY: [place] [address] PATHOLOGIST SLIP TENDER BRANDEN WHATLEY M.D. Performed By: #### G LULS #### Point of Care testing , Troponin I High Sensitivity 77.8 pg/mL Off scale high 0.0-20.0 [facility] Comment on above: Result Comment: Crit ical Result : Called to and read back by: TAMMY BOWMAN at: 10/22/2023 07:34:46 by:[id number] PERFORMED BY: [place] [phone] PATHOLOGIST SLIP TENDER BRANDEN WHATLEY M.D. Performed By: #### C BC, BNP, HS TROP, PT #### [facility] [address] [place] [address] Troponin I.cardiac [Mass/vol ume] in Serum or Plasma by Detection limit <= 0.01 ng/Ordered By: iDonicio Donald on 10-22-2023 Troponin I.cardiac DL <= 0.01 ng/mL [Mass/Vol] 80.6 pg/mL High 0.0-20.0 [facility] Comment on above: Critical Result : Ca lled to and read back by: BARAK ORTEZ at: 10/22/2023 11:33:35 by:PATY Urine Cultureon 10-22-2023 Bacteria identified Cx Nom (U) ORGANISM: Elizabeth albicans (O:CANALB) [place] Count >100,000 PERFORMED BY: [place] [address] PATHOLOGIST SLIP TENDER BRANDEN WHATLEY M.D. Normal [facility] Comment on above: Performed By: #### C BCNO, BMP #### [facility] [address] [place] [address] Urine appearanceOrdered By: Marky Dempsey on 10-22-2023 Appearance (U) Turbid Abnormal Clear [facility] Comment on above: Order Comment: Name Collection Type:: Wooten Catheter Performed By: #### G LULS #### Point of Care testing , Urine culture routineOrdered By: Marky Dempsey on 10-22-2023 Bacteria identified Cx Nom (U) [place] albicans Abnormal [facility] Urobilinogen Test strip (U) [Mass/Vol]Ordered By: Marky Dempsey on 10-22-2023 Urobilinogen (U) [Mass/Vol] Normal mg/dL Normal [facility] Vitamin D 25 Hydroxy Totalon 10-22-2023 Vitamin D 25 Hydroxy Total 42.7 ng/mL Normal 30-100 [facility] Comment on above: Result Comment: WILLIAM MIN D STATUS 25([place])VITAMIN D RANGE (ng/mL) Deficient <20 Insufficient 20 to <30 Sufficient 30 to 100 Reference: Lilliam Hernandes, Bailee AGUILAR, et al. Evaluation,treatment, and prevention of vitamin D deficiency; an Endocrine Society clinical practice guideline. JCEM. 2010; 96(7):1911-30. PERFORMED BY: [place] [address] PATHOLOGIST SLIP TENDER BRANDEN WHATLEY M.D. Performed By: #### C BC, BNP, HS TROP, PT #### [address] Vitamin D+Metabolites [Mass/ volume] in Serum or PlasmaOrdered By: Marky Dempsey on 10-22-2023 Vitamin D+Metabolites [Mass/Vol] 42.7 ng/mL 30-100 [facility] Comment on above: VITAMIN D STATUS 25( [place])VITAMIN D RANGE (ng/mL) Deficient <20 Insufficient 20 to <30Sufficient 30 to 100Reference: Lilliam Hernandes, Bailee AGUILAR, et al. Evaluation,treatment, and prevention of vitamin D deficiency; an Endocrine Society clinical practice guideline. JCEM. 2010; 96(7):1911-30. 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 [facility] does not have nephrology services. So requesting transfer as he may need dialysis. Patient is accepted to [facility]. Admitting physician to re-conference with [facility] after bed is assigned to confirm patient continues to be medically stable for F given hypotension on presentation. Denise epps MD Normal [facility],Urineon 01-19-2023 Cult,Urine Specimen Description .CATHETERIZED URINE Culture NO SIGNIFICANT GROWTH Report Status FINAL 01/19/2023 Normal [facility] Comment on above: Performed By: #### U RC #### [facility] [address] [place] [address] Director Medicaid: Fredis Miller MD [facility] [address] [place] [address] Director Medicaid: Rao Espinosa MD UA w/Reflex Cultureon 2022 Bilirubin, SemiQt,Ur Negative Normal NEG [facility] Comment on above: Performed By: #### U MICAO, UAX #### [facility] [address] [place], [place] [id number] Director Medicaid: Rao Espinosa MD Blood, Urine 2+ Abnormal NEG [facility] Comment on above: Performed By: #### U MICAO, UAX #### [facility] [address] [place] [address] Director Medicaid: Rao Espinosa MD Clarity (U) Cloudy Abnormal CLEAR [facility] Comment on above: Performed By: #### U MICAO, UAX #### [facility] [address] [place], [place] [id number] Director Medicaid: Rao Espinosa MD Color (U) Yellow Normal YEL [facility] Comment on above: Performed By: #### U MICAO, UAX #### [facility] [address] [place], [place] [id number] Director Medicaid: Rao Espinosa MD Glucose Ql (U) TRACE Abnormal NEG [facility] Comment on above: Performed By: #### U MICAO, UAX #### [facility] [address] [place] [address] Dr[place], [place] [id number] Director Medicaid: Rao Espinosa MD Ketones Ql (U) Negative Normal NEG [facility] Comment on above: Performed By: #### U MICAO, UAX #### [facility] [address] [place] [address] Dr[place], [place] [id number] Director Medicaid: Rao Espinosa MD Leukocyte esterase Test strip Ql (U) LARGE Abnormal NEG [facility] Comment on above: Performed By: #### U MICAO, UAX #### [facility] [address] [place], [place] [phone] Director Medicaid: Rao Espinosa MD Nitrite,Ur Positive Abnormal NEG [facility] Comment on above: Performed By: #### U MICAO, UAX #### [facility] [address] [place], [place] [phone] Director Medicaid: Rao Espinosa MD PH,Ur 7.0 Normal 5.0-9.0 [facility] Comment on above: Performed By: #### U MICAO, UAX #### [address] [place] [address] Director Medicaid: Rao Espinosa MD Protein Ql (U) 1+ mg/dL Abnormal NEG [facility] Comment on above: Performed By: #### U MICAO, UAX #### [address] [place], [place] [phone] Director Medicaid: Rao Espinosa MD Spec. [place],Ur 1.010 Normal 1.010-1.02 0 [facility] Comment on above: Performed By: #### U MICAO, UAX #### [address] [place], [facility] Director Medicaid: Rao Espinosa MD Urobilinogen,Ur Normal Normal 0.0-1.0 [facility] Comment on above: Performed By: #### U MICAO, UAX #### [address] [place], [facility] Director Medicaid: Rao Espinosa MD Urinalysis,Microon 3 Bacteria 3+ Abnormal NONE [facility] Comment on above: Performed By: #### U MICAO, UAX #### [address] [place], [facility] Director Medicaid: Rao Espinosa MD Epithelial cells LM Ql (Urine sed) 0 TO 2 Normal 0-5 [facility] Comment on above: Performed By: #### U MICAO, UAX #### [address] [place] [address] Director Medicaid: Rao Espinosa MD Urine RBC's 5 TO 10 Normal 0-2 [facility] Comment on above: Performed By: #### U MICAO, UAX #### [facility] [address] [place] [address] Director Medicaid: Rao Espinosa MD Urine WBC's GREATER THAN 100 Normal 0-5 [facility] Comment on above: Performed By: #### U MICAO, UAX #### [facility] [address] [place] [address] Director Medicaid: Rao Espinosa MD PRBC LEUKOREDUCEDon 07-19-19 23 PRBC LEUKOREDUCED Cross Match Result Compatible Unit Blood Type O Neg Unit Number [id number] Status Information Transfused Product ID Red Blood Cells Product Code [id number] [facility] Comment on above: Performed By: #### P OCGLUC #### [facility] [address] [place] [address] Dr. Dk Mahoney PRBC LEUKOREDUCED Cross Match Result Compatible Unit Blood Type O Neg Unit Number [id number] Status Information Transfused Product ID Red Blood Cells Product Code [id number] [facility] Comment on above: Performed By: #### P OCGLUC #### [facility] [address] [place] [address] Dr. Dk Mahoney CULTURE URINEon 07-09-2022 CULTURE [...] R F Levofloxacin >=8 R F Normal [facility] Comment on above: Performed By: #### P OCGLUC #### [facility] [address] [place] [address] Dr. Dk Mahoney PROTEIN ELECTROPHERESISon Albumin [Mass/Vol] 2.7 g/dL Critically low 2.9-4.4 Th [facility] Comment on above: Performed By: #### M G, CMP, PHOS #### [facility] [address] [place] [address] Dr. Dk Mahoney Albumin/Globulin [Mass ratio] 0.9 {ratio} Normal 0.7-1.7 [facility] Comment on above: Performed By: #### M G, CMP, PHOS #### [facility] [address] [place] [address] Dr. Dk Mahoney Kwjoe-1-Vvmtyxeo 0.2 g/dL Normal 0.0-0.4 [facility] Comment on above: Performed By: #### M G, CMP, PHOS #### [facility] [address] [place] [address] Dr. Dk Mahoney Lmleq-9-Jkoetebr 0.8 g/dL Normal 0.4-1.0 [facility] Comment on above: Performed By: #### M G, CMP, PHOS #### [facility] [address] [place] [address] Dr. Dk Mahoney Beta Globulin 1.0 g/dL Normal 0.7-1.3 [facility] Comment on above: Performed By: #### M G, CMP, PHOS #### [facility] [address] [place] [address] Dr. Dk Mahoney Gamma Globulin 1.1 g/dL Normal 0.4-1.8 [facility] Comment on above: Performed By: #### M G, CMP, PHOS #### [facility] [address] [place] [address] Dr. Dk Mahoney Globulin (S) [Mass/Vol] 3.1 g/dL Normal 2.2-3.9 [facility] Comment on above: Performed By: #### M G, CMP, PHOS #### [facility] [address] [address] [address] Dk Mahoney M-Primitivo Comment: Normal Not Observed [facility] Comment on above: Result Comment: SPE shows an asymmetrical gamma. Performed By: #### M G, CMP, PHOS #### [facility] [address] [place] [address] [address] Dk Mahoney PDF . Normal [facility] Comment on above: Performed By: #### M G, CMP, PHOS #### [facility] [address] [address] [address] Dk Mahoney Please note: Comment Normal [facility] Comment on above: Result Comment: Prot ein electrophoresis scan will follow via computer, mail, or hand bookbinder delivery. Performed By: #### M G, CMP, PHOS #### [facility] [address] [place] [address] Dr. Dk Mahoney Protein [Mass/Vol] 5.8 g/dL Critically low 6.0-8.5 Th [facility] Comment on above: Performed By: #### M G, CMP, PHOS #### [facility] [address] [place] [address] Dr. Dk Mahoney PROTEIN ELECTROPHERESIS URIN E RANDOMon 07-09-2022 Albumin, U 23.2 % Normal [facility] Comment on above: Performed By: #### M G, CMP, PHOS #### [facility] [address] [place] [address] [address] Dk Mahoney Alpha-1 Globulin U 3.6 % Normal [facility] Comment on above: Performed By: #### M G, CMP, PHOS #### [facility] [address] [place] [address] Dr. Dk Mahoney Alpha-2 Glubulin U 19.7 % Normal [facility] Comment on above: Performed By: #### M G, CMP, PHOS #### [facility] [address] [place] [address] Dr. Dk Mahoney Beta Globulin, U 31.4 % Normal [facility] Comment on above: Performed By: #### M G, CMP, PHOS #### [facility] [address] [place] [address] Dr. Dk Mahoney Gamma Globulin U 22.1 % Normal [facility] Comment on above: Performed By: #### M G, CMP, PHOS #### [facility] [address] [place] [address] Dr. Dk Mahoney M-Primitivo, % Comment: Normal Not Observed [facility] Comment on above: Result Comment: UPE shows an asymmetrical beta. Performed By: #### M G, CMP, PHOS #### [facility] [address] [place] [address] Dr. Dk Mahoney PDF . Normal [facility] Comment on above: Performed By: #### M G, CMP, PHOS #### [facility] [address] [place] [address] Dr. Dk Mahoney Please note: Comment Normal [facility] Comment on above: Result Comment: Prot ein electrophoresis scan will follow via computer, mail, or hand bookbinder delivery. Performed By: #### M G, CMP, PHOS #### [facility] [address] [place] [address] Dr. Dk Mahoney Protein (U) [Mass/Vol] 34.7 mg/dL Normal Not Estab. Th [facility] Comment on above: Performed By: #### M G, CMP, PHOS #### [facility] [address] [place] [address] Dr. Dk Mahoney CBC AUTO DIFFon 07-07-2022 BASO # 0.1 103/ul Normal 0.0-0.1 [facility] Comment on above: Performed By: #### M G, CMP, PHOS #### [facility] [address] [place] [address] Dr. Dk Mahoney Basophils/100 WBC (Bld) 0.9 % Normal 0.2-2.0 [facility] Comment on above: Performed By: #### M G, CMP, PHOS #### [facility] [address] [address] [address] Dk Mahoney EO # 0.2 103/ul Normal 0.0-0.7 [facility] Comment on above: Performed By: #### M G, CMP, PHOS #### [facility] [address] [place] [address] Dr. Dk Mahoney Eosinophils/100 WBC (Bld) 2.9 % Normal 0.9-7.0 [facility] Comment on above: Performed By: #### M G, CMP, PHOS #### [facility] [address] [place] [address] Dr. Dk Mahoney Erythrocyte distribution width (RBC) [Ratio] 15.0 % Normal 11.0-15.0 [facility] Comment on above: Performed By: #### M G, CMP, PHOS #### [facility] [address] [place] [address] Dr. Dk Mahoney Hematocrit (Bld) [Volume fraction] 24.4 % Critically low 42.0-54.0 [facility] Comment on above: Performed By: #### M G, CMP, PHOS #### [facility] [address] [place] [address] Dr. Dk Mahoney Hemoglobin (Bld) [Mass/Vol] 7.8 g/dL Critically low 14.0-18.0 [facility] Comment on above: Performed By: #### M G, CMP, PHOS #### [facility] [address] [place] [address] Dr. Dk Mahoney IG # 0.07 10e3/ul Critically high 0.00-0.03 [facility] Comment on above: Performed By: #### M G, CMP, PHOS #### [facility] [address] [place] [address] Dr. Dk Mahoney IG % 1.1 % Critically high 0.0-0.5 [facility] Comment on above: Performed By: #### M G, CMP, PHOS #### [facility] [address] [place] [address] Dr. Dk Mahoney LYMPH # 1.0 103/ul Critically low 1.2-3.8 [facility] Comment on above: Performed By: #### M G, CMP, PHOS #### [facility] [address] [place] [address] Dr. Dk Mahoney Lymphocytes/100 WBC (Bld) 15.4 % Critically low 20.5-60.0 [facility] Comment on above: Performed By: #### M G, CMP, PHOS #### [facility] [address] [place] [address] Dr. Dk Mahoney MANUAL DIFF REQ NO Normal [facility] Comment on above: Performed By: #### M G, CMP, PHOS #### [facility] [address] [place] [address] Dr. Dk Mahoney MCH (RBC) [Entitic mass] 29.3 pg Normal 25.9-34.0 [facility] Comment on above: Performed By: #### M G, CMP, PHOS #### [facility] [address] [place] [address] Dr. Dk Mahoney MCHC (RBC) [Mass/Vol] 32.0 g/dL Normal 29.9-35.2 [facility] Comment on above: Performed By: #### M G, CMP, PHOS #### [facility] [address] [place] [address] Dr. Dk Mahoney MCV (RBC) [Entitic vol] 91.7 fL Normal 80.0-94.0 [facility] Comment on above: Performed By: #### M G, CMP, PHOS #### [facility] [address] [place] [address] Dr. Dk Mahoney MONO # 0.6 103/ul Normal 0.3-0.8 [facility] Comment on above: Performed By: #### M G, CMP, PHOS #### [facility] [address] [place] [address] Dr. Dk Mahoney Monocytes/100 WBC (Bld) 9.2 % Normal 1.7-12.0 [facility] Comment on above: Performed By: #### M G, CMP, PHOS #### [facility] [address] [address] [address] Dk Mahoney NEUT # 4.6 103/ul Normal 1.4-6.5 [facility] Comment on above: Performed By: #### M G, CMP, PHOS #### [facility] [address] [address] [address] Dk Mahoney Neutrophils/100 WBC (Bld) 70.5 % Normal 43.0-75.0 [facility] Comment on above: Performed By: #### M G, CMP, PHOS #### [facility] [address] [address] [address] Dk Mahoney Platelet mean volume (Bld) [Entitic vol] 10.1 fL Normal 9.5-13.5 [facility] Comment on above: Performed By: #### M G, CMP, PHOS #### [facility] [address] [place] [address] Dr. Dk Mahoney PLT 172 103/ul Normal 150-450 [facility] Comment on above: Performed By: #### M G, CMP, PHOS #### [facility] [address] [address] [address] Dk Mahoney RBC 2.66 106/ul Critically low 4.70-6.10 [facility] Comment on above: Performed By: #### M G, CMP, PHOS #### [facility] [address] [place] [address] Dr. Dk Mahoney WBC 6.5 103/ul Normal 4.0-11.0 [facility] Comment on above: Performed By: #### M G, CMP, PHOS #### [facility] [address] [place] [address] Dr. Dk Mahoney MAGNESIUMon 07-07-2022 Magnesium [Mass/Vol] 1.4 mg/dL Critically low 1.8-2.4 [facility] Comment on above: Performed By: #### M G, CMP, PHOS #### [facility] [address] [place] [address] Dr. Dk Mahoney PHOSPHORUSon 07-07-2022 Phosphate [Mass/Vol] 5.9 mg/dL Critically high 2.6-4.7 [facility] Comment on above: Performed By: #### M G, CMP, PHOS #### [facility] [address] [place] [address] Dr. Dk Mahoney POINT OF CARE GLUCOSEon 06-13 Glucose [Mass/Vol] 121 mg/dL Critically high 74-106 [facility] Comment on above: Performed By: #### M G, CMP, PHOS #### [facility] [address] [place] [address] Dr. Dk Mahoney PROF 14(COMP METB)on 023 Albumin [Mass/Vol] 2.4 g/dL Critically low 3.4-5.0 [facility] Comment on above: Performed By: #### M Young, CMP, PHOS #### [facility] [address] [place] [address] Dr. Dk Mahoney Albumin/Globulin [Mass ratio] 0.6 {ratio} Normal [facility] Comment on above: Performed By: #### M G, CMP, PHOS #### [facility] [address] [place] [address] Dr. Dk Mahoney ALP [Catalytic activity/Vol] 128 U/L Critically high 46-116 [facility] Comment on above: Performed By: #### M G, CMP, PHOS #### [facility] [address] [place] [address] Dr. Dk Mahoney ALT [Catalytic activity/Vol] 49 U/L Normal 16-63 [facility] Comment on above: Performed By: #### M G, CMP, PHOS #### [facility] [address] [place] [address] Dr. Dk Mahoney Anion gap [Moles/Vol] 16.3 mmol/L Normal [facility] Comment on above: Performed By: #### M G, CMP, PHOS #### [facility] [address] [place] [address] Dr. Dk Mahoney AST [Catalytic activity/Vol] 17 U/L Normal 15-37 [facility] Comment on above: Performed By: #### M G, CMP, PHOS #### [facility] [address] [place] [address] Dr. Dk Mahoney Bilirubin [Mass/Vol] 0.3 mg/dL Normal 0.2-1.0 [facility] Comment on above: Performed By: #### M G, CMP, PHOS #### [facility] [address] [place] [address] Dr. Dk Mahoney Calcium [Mass/Vol] 9.2 mg/dL Normal 8.5-10.1 [facility] Comment on above: Performed By: #### M G, CMP, PHOS #### [facility] [address] [place] [address] Dr. Dk Mahoney Chloride [Moles/Vol] 105 mmol/L Normal 98-107 [facility] Comment on above: Performed By: #### M G, CMP, PHOS #### [facility] [address] [place] [address] Dr. Dk Mahoney CO2 [Moles/Vol] 20.3 mmol/L Critically low 21.0-32.0 [facility] Comment on above: Performed By: #### M G, CMP, PHOS #### [facility] [address] [place] [address] Dr. Dk Mahoney Creatinine [Mass/Vol] 5.59 mg/dL Critically high 0.70-1.30 [facility] Comment on above: Performed By: #### M G, CMP, PHOS #### [facility] [address] [place] [address] Dr. Dk Mahoney EGFR-AF TUVALUAN 12 mL/min/1.73m2 Critically low >=60 [facility] Comment on above: Performed By: #### M G, CMP, PHOS #### [facility] [address] [place] [address] Dr. Dk Mahoney EGFR-NON AF TUVALUAN 10 mL/min/1.73m2 Critically low >=60 [facility] Comment on above: Performed By: #### M G, CMP, PHOS #### [facility] [address] [place], [place] [id number] Dr. Dk Mahoney Globulin (S) [Mass/Vol] 3.7 g/dL Normal [facility] Comment on above: Performed By: #### M G, CMP, PHOS #### [facility] [address] [place] [address] Dr. Dk Mahoney Glucose [Mass/Vol] 191 mg/dL Critically high 74-106 [facility] Comment on above: Performed By: #### M G, CMP, PHOS #### [facility] [address] [place] [address] Dr. Dk Mahoney Potassium [Moles/Vol] 4.5 mmol/L Normal 3.5-5.1 [facility] Comment on above: Performed By: #### M G, CMP, PHOS #### [facility] [address] [place] [address] Dr. Dk Mahoney Protein [Mass/Vol] 6.1 g/dL Critically low 6.4-8.2 [facility] Comment on above: Performed By: #### M G, CMP, PHOS #### [facility] [address] [place] [address] Dr. Dk Mahoney Sodium [Moles/Vol] 137 mmol/L Normal 136-145 [facility] Comment on above: Performed By: #### M G, CMP, PHOS #### [facility] [address] [place] [address] Dr. Dk Mahoney Urea nitrogen [Mass/Vol] 83.0 mg/dL Critically high 7.0-18.0 [facility] Comment on above: Performed By: #### M G, CMP, PHOS #### [facility] [address] [place] [address] Dr. Dk Mahoney Urea nitrogen/Creatinine [Mass ratio] 14.8 mg/mg Normal [facility] Comment on above: Performed By: #### M G, CMP, PHOS #### [facility] [address] [place] [address] Dr. Dk Mahoney CBC AUTO DIFFon 07-06-2022 BASO # 0.1 103/ul Normal 0.0-0.1 [facility] Comment on above: Performed By: #### M G, CMP, PHOS #### [facility] [address] [place] [address] Dr. Dk Mahoney Basophils/100 WBC (Bld) 0.9 % Normal 0.2-2.0 [facility] Comment on above: Performed By: #### M G, CMP, PHOS #### [facility] [address] [place] [address] Dr. Dk Mahoney EO # 0.2 103/ul Normal 0.0-0.7 [facility] Comment on above: Performed By: #### M G, CMP, PHOS #### [facility] [address] [place] [address] Dr. Dk Mahoney Eosinophils/100 WBC (Bld) 2.9 % Normal 0.9-7.0 [facility] Comment on above: Performed By: #### M G CMP, PHOS #### [facility] [address] [place] [address] Dr. Dk Mahoney Erythrocyte distribution width (RBC) [Ratio] 15.0 % Normal 11.0-15.0 [facility] Comment on above: Performed By: #### M G CMP, PHOS #### [facility] [address] [place] [address] Dr. Dk Mahoney Hematocrit (Bld) [Volume fraction] 24.2 % Critically low 42.0-54.0 [facility] Comment on above: Performed By: #### M G, CMP, PHOS #### [facility] [address] [place] [address] Dr. Dk Mahoney Hemoglobin (Bld) [Mass/Vol] 8.0 g/dL Critically low 14.0-18.0 [facility] Comment on above: Performed By: #### M G, CMP, PHOS #### [facility] [address] [place] [address] Dr. Dk Mahoney IG # 0.06 10e3/ul Critically high 0.00-0.03 [facility] Comment on above: Performed By: #### M G, CMP, PHOS #### [facility] [address] [address] [address] Dk Mahoney IG % 0.9 % Critically high 0.0-0.5 [facility] Comment on above: Performed By: #### M G, CMP, PHOS #### [facility] [address] [address] [address] Dk Mahoney LYMPH # 1.0 103/ul Critically low 1.2-3.8 [facility] Comment on above: Performed By: #### M G, CMP, PHOS #### [facility] [address] [place] [address] Dr. Dk Mahoney Lymphocytes/100 WBC (Bld) 14.6 % Critically low 20.5-60.0 [facility] Comment on above: Performed By: #### M G, CMP, PHOS #### [facility] [address] [place] [address] Dr. Dk Mahoney MANUAL DIFF REQ NO Normal [facility] Comment on above: Performed By: #### M G, CMP, PHOS #### [facility] [address] [place] [address] Dr. Dk Mahoney MCH (RBC) [Entitic mass] 30.4 pg Normal 25.9-34.0 [facility] Comment on above: Performed By: #### M G, CMP, PHOS #### [facility] [address] [place] [address] Dr. Dk Mahoney MCHC (RBC) [Mass/Vol] 33.1 g/dL Normal 29.9-35.2 [facility] Comment on above: Performed By: #### M G, CMP, PHOS #### [facility] [address] [address] [address] Dk Mahoney MCV (RBC) [Entitic vol] 92.0 fL Normal 80.0-94.0 [facility] Comment on above: Performed By: #### M G, CMP, PHOS #### [facility] [address] [address] [address] Dk Mahoney MONO # 0.7 103/ul Normal 0.3-0.8 [facility] Comment on above: Performed By: #### M G, CMP, PHOS #### [facility] [address] [place] [address] Dr. Dk Mahoney Monocytes/100 WBC (Bld) 11.1 % Normal 1.7-12.0 [facility] Comment on above: Performed By: #### M G, CMP, PHOS #### [facility] [address] [place] [address] Dr. Dk Mahoney NEUT # 4.5 103/ul Normal 1.4-6.5 [facility] Comment on above: Performed By: #### M Young CMP, PHOS #### [facility] [address] [place] [address] Dr. Dk Mahoney Neutrophils/100 WBC (Bld) 69.6 % Normal 43.0-75.0 [facility] Comment on above: Performed By: #### Rosmery Vidal CMP, PHOS #### [facility] [address] [place] [address] Dr. Dk Mahoney Platelet mean volume (Bld) [Entitic vol] 9.4 fL Critically low 9.5-13.5 [facility] Comment on above: Performed By: #### M Young CMP, PHOS #### [facility] [address] [place] [address] Dr. Dk Mahoney PLT 159 103/ul Normal 150-450 [facility] Comment on above: Performed By: #### M G, CMP, PHOS #### [facility] [address] [place] [address] Dr. Dk Mahoney RBC 2.63 106/ul Critically low 4.70-6.10 [facility] Comment on above: Performed By: #### M G, CMP, PHOS #### [facility] [address] [place] [address] Dr. Dk Mahoney WBC 6.5 103/ul Normal 4.0-11.0 [facility] Comment on above: Performed By: #### M G, CMP, PHOS #### [facility] [address] [address] [address] Dk Mahoney BASO # 0.0 103/ul Normal 0.0-0.1 [facility] Comment on above: Performed By: #### C BC #### [facility] [address] [address] [address] Dk Mahoney Basophils/100 WBC (Bld) 0.6 % Normal 0.2-2.0 [facility] Comment on above: Performed By: #### C BC #### [facility] [address] [place] [address] Dr. Dk Mahoney EO # 0.2 103/ul Normal 0.0-0.7 [facility] Comment on above: Performed By: #### C BC #### [facility] [address] [place] [address] Dr. Dk Mahoney Eosinophils/100 WBC (Bld) 3.2 % Normal 0.9-7.0 [facility] Comment on above: Performed By: #### C BC #### [facility] [address] [place] [address] Dr. Dk Mahoney Erythrocyte distribution width (RBC) [Ratio] 15.2 % Critically high 11.0-15.0 [facility] Comment on above: Performed By: #### C BC #### [facility] [address] [place] [address] Dr. Dk Mahoney Hematocrit (Bld) [Volume fraction] 21.4 % Critically low 42.0-54.0 [facility] Comment on above: Performed By: #### C BC #### [facility] [address] [place] [address] Dr. Dk Mahoney Hemoglobin (Bld) [Mass/Vol] 6.9 g/dL Critically low 14.0-18.0 [facility] Comment on above: Performed By: #### C BC #### [facility] [address] [place] [address] Dr. Dk Mahoney IG # 0.05 10e3/ul Critically high 0.00-0.03 [facility] Comment on above: Performed By: #### C BC #### [facility] [address] [place] [address] Dr. Dk Mahoney IG % 0.8 % Critically high 0.0-0.5 [facility] Comment on above: Performed By: #### C BC #### [facility] [address] [place] [address] Dr. Dk Mahoney LYMPH # 0.9 103/ul Critically low 1.2-3.8 [facility] Comment on above: Performed By: #### C BC #### [facility] [address] [place] [address] Dr. Dk Mahoney Lymphocytes/100 WBC (Bld) 13.8 % Critically low 20.5-60.0 [facility] Comment on above: Performed By: #### C BC #### [facility] [address] [place] [address] Dr. Dk Mahoney MANUAL DIFF REQ NO Normal [facility] Comment on above: Performed By: #### C BC #### [facility] [address] [place] [address] Dr. Dk Mahoney MCH (RBC) [Entitic mass] 29.9 pg Normal 25.9-34.0 [facility] Comment on above: Performed By: #### C BC #### [facility] [address] [place] [address] Dr. Dk Mahoney MCHC (RBC) [Mass/Vol] 32.2 g/dL Normal 29.9-35.2 [facility] Comment on above: Performed By: #### C BC #### [facility] [address] [place] [address] Dr. Dk Mahoney MCV (RBC) [Entitic vol] 92.6 fL Normal 80.0-94.0 [facility] Comment on above: Performed By: #### C BC #### [facility] [address] [place] [address] Dr. Dk Mahoney MONO # 0.8 103/ul Normal 0.3-0.8 [facility] Comment on above: Performed By: #### C BC #### [facility] [address] [place] [address] Dr. Dk Mahoney Monocytes/100 WBC (Bld) 11.4 % Normal 1.7-12.0 [facility] Comment on above: Performed By: #### C BC #### [facility] [address] [place] [address] Dr. Dk Mahoney NEUT # 4.6 103/ul Normal 1.4-6.5 [facility] Comment on above: Performed By: #### C BC #### [facility] [address] [place] [address] Dr. Dk Mahoney Neutrophils/100 WBC (Bld) 70.2 % Normal 43.0-75.0 [facility] Comment on above: Performed By: #### C BC #### [facility] [address] [place] [address] Dr. Dk Mahoney Platelet mean volume (Bld) [Entitic vol] 9.6 fL Normal 9.5-13.5 [facility] Comment on above: Performed By: #### C BC #### [facility] [address] [place] [address] Dr. Dk Mahoney PLT 163 103/ul Normal 150-450 [facility] Comment on above: Performed By: #### C BC #### [facility] [address] [place] [address] Dr. Dk Mahoney RBC 2.31 106/ul Critically low 4.70-6.10 [facility] Comment on above: Performed By: #### C BC #### [facility] [address] [place] [address] Dr. Dk Mahoney WBC 6.6 103/ul Normal 4.0-11.0 [facility] Comment on above: Performed By: #### C BC #### [facility] [address] [place] [address] Dr. Dk Mahoney FERRITINon 07-06-2022 Ferritin [Mass/Vol] 538.0 ng/mL Critically high 26.0-388.0 [facility] Comment on above: Performed By: #### M G, CMP, PHOS #### [facility] [address] [place] [address] Dr. Dk Mahoney IRON AND TIBCon 07-06-2022 % SATURATION 29.7 % Normal [facility] Comment on above: Performed By: #### M Young CMP, PHOS #### [facility] [address] [address] [address] Dk Mahoney Iron [Mass/Vol] 51.0 ug/dL Critically low 65.0-175.0 [facility] Comment on above: Performed By: #### Rosmery Vidal, CMP, PHOS #### [facility] [address] [place] [address] Dr. Dk Mahoney TIBC DIRECT 172.0 ug/dL Critically low 250.0-450. 0 [facility] Comment on above: Performed By: #### Rosmery Vidal CMP, PHOS #### [facility] [address] [place] [address] Dr. Dk Mahoney LDHon 07-06-2022 LDH 126 U/L Normal 85-227 [facility] Comment on above: Performed By: #### Rosmery Vidal CMP, PHOS #### [facility] [address] [place] [address] Dr. Dk Mahoney MAGNESIUMon 07-06-2022 Magnesium [Mass/Vol] 1.5 mg/dL Critically low 1.8-2.4 [facility] Comment on above: Performed By: #### Rosmery Vidal CMP, PHOS #### [facility] [address] [place] [address] Dr. Dk Mahoney PHOSPHORUSon 07-06-2022 Phosphate [Mass/Vol] 7.8 mg/dL Critically high 2.6-4.7 [facility] Comment on above: Performed By: #### Rosmery Vidal CMP, PHOS #### [facility] [address] [address] [address] Dk Mahoney POINT OF CARE GLUCOSEon 06-13 Glucose [Mass/Vol] 149 mg/dL Critically high 74-106 T [facility] Comment on above: Performed By: #### Rosmery Vidal CMP, PHOS #### [facility] [address] [place] [address] Dr. Dk Mahoney Glucose [Mass/Vol] 145 mg/dL Critically high 74-106 [facility] Comment on above: Performed By: #### M SHIREEN Vidal, PHOS #### [facility] [address] [address] [address] Dk Mahoney Glucose [Mass/Vol] 112 mg/dL Critically high 74-106 [facility] Comment on above: Performed By: #### M Young CMP, PHOS #### [facility] [address] [address] [address] Dk Mahoney Glucose [Mass/Vol] 133 mg/dL Critically high 74-106 [facility] Comment on above: Performed By: #### M SHIREEN Vidal, PHOS #### [facility] [address] [place] [address] Dr. Dk Mahoney Glucose [Mass/Vol] 173 mg/dL Critically high 74-106 [facility] Comment on above: Performed By: #### P OCGLUC #### [facility] [address] [place] [address] Dr. Dk Mahoney PROF 14(COMP METB)on 023 Albumin [Mass/Vol] 2.4 g/dL Critically low 3.4-5.0 Th [facility] Comment on above: Performed By: #### M SHIREEN Vidal, PHOS #### [facility] [address] [place] [address] Dr. Dk Mahoney Albumin/Globulin [Mass ratio] 0.6 {ratio} Normal [facility] Comment on above: Performed By: #### M Young CMP, PHOS #### [facility] [address] [place] [address] Dr. Dk Mahoney ALP [Catalytic activity/Vol] 133 U/L Critically high 46-116 [facility] Comment on above: Performed By: #### M G CMP, PHOS #### [facility] [address] [address] [address] Dk Mahoney ALT [Catalytic activity/Vol] 58 U/L Normal 16-63 [facility] Comment on above: Performed By: #### M Young, CMP, PHOS #### [facility] [address] [address] [address] Dk Mahoney Anion gap [Moles/Vol] 16.8 mmol/L Normal Th [facility] Comment on above: Performed By: #### M G, CMP, PHOS #### [facility] [address] [address] [address] Dk Mahoney AST [Catalytic activity/Vol] 20 U/L Normal 15-37 [facility] Comment on above: Performed By: #### M G, CMP, PHOS #### [facility] [address] [address] [address] Dk Mahoney Bilirubin [Mass/Vol] 0.2 mg/dL Normal 0.2-1.0 [facility] Comment on above: Performed By: #### M G, CMP, PHOS #### [facility] [address] [address] [address] Dk Mahoney Calcium [Mass/Vol] 9.0 mg/dL Normal 8.5-10.1 [facility] Comment on above: Performed By: #### M G, CMP, PHOS #### [facility] [address] [address] [address] Dk Mahoney Chloride [Moles/Vol] 107 mmol/L Normal 98-107 [facility] Comment on above: Performed By: #### M G, CMP, PHOS #### [facility] [address] [address] [address] Dk Mahoney CO2 [Moles/Vol] 18.2 mmol/L Critically low 21.0-32.0 [facility] Comment on above: Performed By: #### M G, CMP, PHOS #### [facility] [address] [address] [address] Dk Mahoney Creatinine [Mass/Vol] 5.80 mg/dL Critically high 0.70-1.30 [facility] Comment on above: Performed By: #### M G, CMP, PHOS #### [facility] [address] [address] [address] Dk Mahoney EGFR-AF TUVALUAN 12 mL/min/1.73m2 Critically low >=60 [facility] Comment on above: Performed By: #### M Young CMP, PHOS #### [facility] [address] [place] [address] Dr. Dk Mahoney EGFR-NON AF TUVALUAN 10 mL/min/1.73m2 Critically low >=60 [facility] Comment on above: Performed By: #### M Young CMP, PHOS #### [facility] [address] [place] [address] Dr. Dk Mahoney Globulin (S) [Mass/Vol] 3.9 g/dL Normal [facility] Comment on above: Performed By: #### M Young CMP, PHOS #### [facility] [address] [place] [address] Dr. Dk Mahoney Glucose [Mass/Vol] 108 mg/dL Critically high 74-106 [facility] Comment on above: Performed By: #### M Young CMP, PHOS #### [facility] [address] [place] [address] Dr. Dk Mahoney Potassium [Moles/Vol] 5.0 mmol/L Normal 3.5-5.1 [facility] Comment on above: Performed By: #### M Young CMP, PHOS #### [facility] [address] [place] [address] Dr. Dk Mahoney Protein [Mass/Vol] 6.3 g/dL Critically low 6.4-8.2 [facility] Comment on above: Performed By: #### M Young CMP, PHOS #### [facility] [address] [place] [address] Dr. Dk Mahoney Sodium [Moles/Vol] 137 mmol/L Normal 136-145 [facility] Comment on above: Performed By: #### M Young CMP, PHOS #### [facility] [address] [place] [address] Dr. Dk Mahoney Urea nitrogen [Mass/Vol] 83.0 mg/dL Critically high 7.0-18.0 [facility] Comment on above: Performed By: #### M Young CMP, PHOS #### [facility] [address] [place] [address] Dr. Dk Mahoney Urea nitrogen/Creatinine [Mass ratio] 14.3 mg/mg Normal [facility] Comment on above: Performed By: #### M G, CMP, PHOS #### [facility] [address] [place] [address] Dr. Dk Mahoney RETICULOCYTEon 07-06-2022 RETIC 4.20 % Critically high 0.60-3.10 [facility] Comment on above: Performed By: #### M G, CMP, PHOS #### [facility] [address] [place] [address] Dr. Dk Mahoney TYPE AND SCREENon 07-06-2022 TYPE AND SCREEN Negative Normal [facility] Comment on above: Performed By: #### P OCGLUC #### [facility] [address] [place] [address] Dr. Dk Mahoney URIC ACID SERUMon 07-06-2022 Urate [Mass/Vol] 6.1 mg/dL Normal 3.5-7.2 [facility] Comment on above: Performed By: #### M Young CMP, PHOS #### [facility] [address] [place] [address] Dr. Dk Mahoney VIT B12 AND FOLATEon 023 Cobalamin (Vitamin B12) [Mass/Vol] 686.0 pg/mL Normal 193.0-986. 0 [facility] Comment on above: Performed By: #### P OCGLUC #### [facility] [address] [place] [address] Dr. Dk Mahoney FOLATE 15.50 ng/mL Normal 8.60-58.90 [facility] Comment on above: Performed By: #### P OCGLUC #### [facility] [address] [place] [address] Dr. Dk Mahoney CBC AUTO DIFFon 07-05-2022 BASO # 0.1 103/ul Normal 0.0-0.1 [facility] Comment on above: Performed By: #### M G, CMP, PHOS #### [facility] [address] [place] [address] Dr. Dk Mahoney Basophils/100 WBC (Bld) 0.7 % Normal 0.2-2.0 [facility] Comment on above: Performed By: #### M G, CMP, PHOS #### [facility] [address] [place] [address] Dr. Dk Mahoney EO # 0.2 103/ul Normal 0.0-0.7 [facility] Comment on above: Performed By: #### M G, CMP, PHOS #### [facility] [address] [place] [address] Dr. Dk Mahoney Eosinophils/100 WBC (Bld) 3.1 % Normal 0.9-7.0 [facility] Comment on above: Performed By: #### M G, CMP, PHOS #### [facility] [address] [place] [address] Dr. kD Mahoney Erythrocyte distribution width (RBC) [Ratio] 15.4 % Critically high 11.0-15.0 [facility] Comment on above: Performed By: #### M G, CMP, PHOS #### [facility] [address] [place] [address] Dr. Dk Mahoney Hematocrit (Bld) [Volume fraction] 23.9 % Critically low 42.0-54.0 [facility] Comment on above: Performed By: #### M G, CMP, PHOS #### [facility] [address] [place] [address] Dr. Dk Mahoney Hemoglobin (Bld) [Mass/Vol] 7.7 g/dL Critically low 14.0-18.0 [facility] Comment on above: Performed By: #### M G, CMP, PHOS #### [facility] [address] [place] [address] Dr. Dk Mahoney IG # 0.05 10e3/ul Critically high 0.00-0.03 [facility] Comment on above: Performed By: #### M G, CMP, PHOS #### [facility] [address] [place] [address] Dr. Dk Mahoney IG % 0.7 % Critically high 0.0-0.5 [facility] Comment on above: Performed By: #### M Young, CMP, PHOS #### [facility] [address] [place] [address] Dr. Dk Mahoney LYMPH # 1.0 103/ul Critically low 1.2-3.8 [facility] Comment on above: Performed By: #### M G, CMP, PHOS #### [facility] [address] [place] [address] Dr. Dk Mahoney Lymphocytes/100 WBC (Bld) 12.8 % Critically low 20.5-60.0 [facility] Comment on above: Performed By: #### M Young CMP, PHOS #### [facility] [address] [place] [address] Dr. Dk Mahoney MANUAL DIFF REQ NO Normal [facility] Comment on above: Performed By: #### M Young CMP, PHOS #### [facility] [address] [place] [address] Dr. Dk Mahoney MCH (RBC) [Entitic mass] 30.0 pg Normal 25.9-34.0 [facility] Comment on above: Performed By: #### M G CMP, PHOS #### [facility] [address] [place] [address] Dr. Dk Mahoney MCHC (RBC) [Mass/Vol] 32.2 g/dL Normal 29.9-35.2 [facility] Comment on above: Performed By: #### M G, CMP, PHOS #### [facility] [address] [place] [address] Dr. Dk Mahoney MCV (RBC) [Entitic vol] 93.0 fL Normal 80.0-94.0 [facility] Comment on above: Performed By: #### M G, CMP, PHOS #### [facility] [address] [place] [address] Dr. Dk Mahoney MONO # 0.8 103/ul Normal 0.3-0.8 [facility] Comment on above: Performed By: #### M G, CMP, PHOS #### [facility] [address] [address] [address] Dk Mahoney Monocytes/100 WBC (Bld) 10.2 % Normal 1.7-12.0 [facility] Comment on above: Performed By: #### M G, CMP, PHOS #### [facility] [address] [address] [address] Dk Mahoney NEUT # 5.6 103/ul Normal 1.4-6.5 [facility] Comment on above: Performed By: #### M G, CMP, PHOS #### [facility] [address] [place] [address] Dr. Dk Mahoney Neutrophils/100 WBC (Bld) 72.5 % Normal 43.0-75.0 [facility] Comment on above: Performed By: #### M G, CMP, PHOS #### [facility] [address] [place] [address] Dr. Dk Mahoney Platelet mean volume (Bld) [Entitic vol] 9.8 fL Normal 9.5-13.5 [facility] Comment on above: Performed By: #### M G, CMP, PHOS #### [facility] [address] [place] [address] Dr. Dk Mahoney PLT 203 103/ul Normal 150-450 [facility] Comment on above: Performed By: #### M G, CMP, PHOS #### [facility] [address] [place] [address] Dr. Dk Mahoney RBC 2.57 106/ul Critically low 4.70-6.10 [facility] Comment on above: Performed By: #### M G, CMP, PHOS #### [facility] [address] [place] [address] Dr. Dk Mahoney WBC 7.7 103/ul Normal 4.0-11.0 [facility] Comment on above: Performed By: #### M G, CMP, PHOS #### [facility] [address] [place] [address] ABD/PELVIS WO CONon [...] retroperitoneum which are nonspecific. Electronically authenticated by: MARQUESTamara AMAYA Date: 2022-07-05 18:21 Normal [facility] Covid-19 PCR (CVDTB)on 06-13 SARS-CoV-2 (COVID-19) RNA JASON+probe Ql (Unsp spec) Not detected Normal NOT DETECTED [facility] Comment on above: Result Comment: [...] for this test is supported by the Sales Account Coordinator of Health and Human Service's declaration that [...] used). Performed By: #### C BC #### [facility] [address] [place] [address] Dr. Dk Mahoney ER URINE PROFILEon 3 Bilirubin Ql (U) Negative Normal NEGATIVE [facility] Comment on above: Performed By: #### M G, CMP, PHOS #### [facility] [address] [place] [address] Dr. Dk Mahoney Clarity (U) CLEAR Normal CLEAR [facility] Comment on above: Performed By: #### M G, CMP, PHOS #### [facility] [address] [place] [address] Dr. Dk Mahoney Color (U) YELLOW Normal YELLOW [facility] Comment on above: Performed By: #### M G, CMP, PHOS #### [facility] [address] [place] [address] Dr. Dk Mahoney ERUAHD A micrscopic examina tion will be performed if indicated. Normal [facility] Comment on above: Performed By: #### M G, CMP, PHOS #### [facility] [address] [address] [address] Dk Mahoney Glucose Ql (U) 100 mg/dl Abnormal NEGATIVE [facility] Comment on above: Performed By: #### M G, CMP, PHOS #### [facility] [address] [address] [address] Dk Mahoney Hemoglobin Ql (U) MODERATE Abnormal NEGATIVE The [facility] Comment on above: Performed By: #### M G, CMP, PHOS #### [facility] [address] [address] [address] Dk Mahoney Ketones Ql (U) Negative Normal NEGATIVE [facility] Comment on above: Performed By: #### M G, CMP, PHOS #### [facility] [address] [place] [address] Dr. Dk Mahoney LEUKOCYTES LARGE Abnormal NEGATIVE [facility] Comment on above: Performed By: #### M G, CMP, PHOS #### [facility] [address] [address] [address] Dk Mahoney Nitrite Ql (U) Negative Normal NEGATIVE [facility] Comment on above: Performed By: #### M G, CMP, PHOS #### [facility] [address] [address] [address] Dk Mahoney pH (U) 7.0 [pH] Normal 5-9 [facility] Comment on above: Performed By: #### M G, CMP, PHOS #### [facility] [address] [address] [address] Dk Mahoney Protein (U) [Mass/Vol] 30 mg/dL Abnormal NEGAT BETSY/ TRACE [facility] Comment on above: Performed By: #### M G, CMP, PHOS #### [facility] [address] [place] [address] Dr. Dk Mahoney SPEC GRAVITY 1.010 Normal 1.005-<=1. 025 [facility] Comment on above: Performed By: #### M G, CMP, PHOS #### [facility] [address] [place] [address] Dr. Dk Mahoney UR MICRO IND INDICATED Normal [facility] Comment on above: Performed By: #### M SHIREEN Vidal, PHOS #### [facility] [address] [place] [address] Dr. Dk Mahoney Urobilinogen Qn (U) 0.2 {Ramiro'U}/dL Normal 0.2 - 1. 0 [facility] Comment on above: Performed By: #### M SHIREEN Vidal, PHOS #### [facility] [address] [place] [address] Dr. Dk Mahoney PROF 14(COMP METB)on 023 Albumin [Mass/Vol] 2.7 g/dL Critically low 3.4-5.0 [facility] Comment on above: Performed By: #### C BC #### [facility] [address] [place] [address] Dr. Dk Mahoney Albumin/Globulin [Mass ratio] 0.6 {ratio} Normal [facility] Comment on above: Performed By: #### C BC #### [facility] [address] [place] [address] Dr. Dk Mahoney ALP [Catalytic activity/Vol] 148 U/L Critically high 46-116 [facility] Comment on above: Performed By: #### C BC #### [facility] [address] [place] [address] Dr. Dk Mahoney ALT [Catalytic activity/Vol] 70 U/L Critically high 16-63 [facility] Comment on above: Performed By: #### C BC #### [facility] [address] [place] [address] Dr. Dk Mahoney Anion gap [Moles/Vol] 16.7 mmol/L Normal [facility] Comment on above: Performed By: #### C BC #### [facility] [address] [place] [address] Dr. Dk Mahoney AST [Catalytic activity/Vol] 26 U/L Normal 15-37 [facility] Comment on above: Performed By: #### C BC #### [facility] [address] [address] [address] Dk Mahoney Bilirubin [Mass/Vol] 0.4 mg/dL Normal 0.2-1.0 [facility] Comment on above: Performed By: #### C BC #### [facility] [address] [address] [address] Dk Mahoney Calcium [Mass/Vol] 9.2 mg/dL Normal 8.5-10.1 [facility] Comment on above: Performed By: #### C BC #### [facility] [address] [address] [address] Dk Mahoney Chloride [Moles/Vol] 105 mmol/L Normal 98-107 [facility] Comment on above: Performed By: #### C BC #### [facility] [address] [address] [address] Dk Mahoney CO2 [Moles/Vol] 18.1 mmol/L Critically low 21.0-32.0 [facility] Comment on above: Performed By: #### C BC #### [facility] [address] [address] [address] Dk Mahoney Creatinine [Mass/Vol] 5.81 mg/dL Critically high 0.70-1.30 [facility] Comment on above: Performed By: #### C BC #### [facility] [address] [place] [address] Dr. Dk Mahoney EGFR-AF TUVALUAN 12 mL/min/1.73m2 Critically low >=60 [facility] Comment on above: Performed By: #### C BC #### [facility] [address] [address] [address] Dk Mahoney EGFR-NON AF TUVALUAN 10 mL/min/1.73m2 Critically low >=60 [facility] Comment on above: Performed By: #### C BC #### [facility] [address] [address] [address] Dk Mahoney Globulin (S) [Mass/Vol] 4.3 g/dL Normal [facility] Comment on above: Performed By: #### C BC #### [facility] [address] [address] [address] Dk Mahoney Glucose [Mass/Vol] 138 mg/dL Critically high 74-106 T [facility] Comment on above: Performed By: #### C BC #### [facility] [address] [address] [address] Dk Mahoney Potassium [Moles/Vol] 4.8 mmol/L Normal 3.5-5.1 [facility] Comment on above: Performed By: #### C BC #### [facility] [address] [address] [address] Dk Mahoney Protein [Mass/Vol] 7.0 g/dL Normal 6.4-8.2 [facility] Comment on above: Performed By: #### C BC #### [facility] [address] [address] [address] Dk Mahoney Sodium [Moles/Vol] 135 mmol/L Critically low 136-145 Th [facility] Comment on above: Performed By: #### C BC #### [facility] [address] [address] [address] Dk Mahoney Urea nitrogen [Mass/Vol] 83.0 mg/dL Critically high 7.0-18.0 [facility] Comment on above: Performed By: #### C BC #### [facility] [address] [address] [address] Dk Mahoney Urea nitrogen/Creatinine [Mass ratio] 14.3 mg/mg Normal [facility] Comment on above: Performed By: #### C BC #### [facility] [address] [address] [address] Dk Mahoney TROPONIN, HIGH SENSITIVITYon 07-05-2022 HSTROP 21.4 pg/mL Normal 4.0-76.1 [facility] Comment on above: Result Comment: CUT- OFF POINTS HAVE BEEN ESTABLISHED BASED ON THE FOURTH UNIVERSAL DEFINITIONS OF MYOCARDIAL INFARCTION. THE UPPER REFERENCE LIMIT (URL) OF TROPONIN, DEFINED THE 99TH PERCENTILE OF cTnI DISTRIBUTION IN A REFERENCE POPULATION, HAS BEEN CONFIRMED THE DECISION THRESHOLD FOR [place] DIAGNOSIS. Performed By: #### C BC #### [facility] [address] [place] [address] Dr. Dk Mahoney URINE MICROSCOPIC ONLYon BACTERIA MODERATE Abnormal NONE SEEN [facility] Comment on above: Performed By: #### M G, CMP, PHOS #### [facility] [address] [place] [address] Dr. Dk Mahoney Bacteria identified Cx Nom (U) INDICATED Normal [facility] Comment on above: Performed By: #### M G, CMP, PHOS #### [facility] [address] [place] [address] Dr. Dk Mahoney CAST NONE SEEN Normal NONE SEEN [facility] Comment on above: Performed By: #### M G, CMP, PHOS #### [facility] [address] [place] [address] Dr. Dk Mahoney Crystals LM Nom (Urine sed) NONE SEEN Normal NONE SEEN [facility] Comment on above: Performed By: #### M G, CMP, PHOS #### [facility] [address] [place] [address] Dr. Dk Mahoney Epithelial cells LM Ql (Urine sed) FEW Abnormal NONE SEEN /RARE [facility] Comment on above: Performed By: #### M G, CMP, PHOS #### [facility] [address] [place] [address] Dr. Dk Mahoney MUCOUS NONE SEEN Normal NONE SEEN [facility] Comment on above: Performed By: #### M G, CMP, PHOS #### [facility] [address] [place] [address] Dr. Dk Mahoney RBC 10-20 Abnormal 0-2 [facility] Comment on above: Performed By: #### M G, CMP, PHOS #### [facility] [address] [place] [address] Dr. Dk Mahoney WBC 75-100 Abnormal NONE SEEN [facility] Comment on above: Performed By: #### M G, CMP, PHOS #### [facility] [address] [place] [address] Dr. Dk Mahoney YEAST PRESENT Abnormal NONE SEEN [facility] Comment on above: Performed By: #### M G, CMP, PHOS #### [facility] [address] [place] [address] Dr. Dk Mahoney PRBC LEUKOREDUCEDon 05-11-19 PRBC LEUKOREDUCED Cross Match Result Compatible Unit Blood Type O Neg Unit Number [id number] Status Information Transfused Product ID Red Blood Cells Product Code [id number] Normal [facility] Comment on above: Performed By: #### P RBC #### [facility] [address] [place] [address] Dr. Dk Mahoney ABO AND RH TYPEon 05-04-2022 ABO and Rh group Nom (Bld) ABO Rh Typing O Rh Negative Normal [facility] Comment on above: Performed By: #### A NOE TNS #### [facility] [address] [place] [address] Dr. Dk Mahoney BNPon 05-04-2022 Natriuretic peptide B (Bld) [Mass/Vol] 79364.0 pg/mL Critically high <=900.0 [facility] Comment on above: Performed By: #### M G, CMP, PHOS #### [facility] [address] [place] [address] Dr. Dk Mahoney CBC AUTO DIFFon 05-04-2022 BASO # 0.1 103/ul Normal 0.0-0.1 [facility] Comment on above: Performed By: #### M G, CMP, PHOS #### [facility] [address] [place] [address] Dr. Dk Mahoney Basophils/100 WBC (Bld) 0.7 % Normal 0.2-2.0 [facility] Comment on above: Performed By: #### M G, CMP, PHOS #### [facility] [address] [place] [address] Dr. Dk Mahoney EO # 0.3 103/ul Normal 0.0-0.7 [facility] Comment on above: Performed By: #### M G, CMP, PHOS #### [facility] [address] [place] [address] Dr. Dk Mahoney Eosinophils/100 WBC (Bld) 4.4 % Normal 0.9-7.0 [facility] Comment on above: Performed By: #### Rosmery Vidal CMP, PHOS #### [facility] [address] [place] [address] Dr. Dk Mahoney Erythrocyte distribution width (RBC) [Ratio] 15.4 % Critically high 11.0-15.0 [facility] Comment on above: Performed By: #### Rosmery Vidal CMP, PHOS #### [facility] [address] [place] [address] Dr. Dk Mahoney Hematocrit (Bld) [Volume fraction] 21.6 % Critically low 42.0-54.0 [facility] Comment on above: Performed By: #### Rosmery Vidal CMP, PHOS #### [facility] [address] [place] [address] Dr. Dk Mahoney Hemoglobin (Bld) [Mass/Vol] 7.4 g/dL Critically low 14.0-18.0 [facility] Comment on above: Performed By: #### Rosmery Vidal CMP, PHOS #### [facility] [address] [place] [address] Dr. Dk Mahoney IG # 0.03 10e3/ul Normal 0.00-0.03 [facility] Comment on above: Performed By: #### Rosmery Vidal CMP, PHOS #### [facility] [address] [place] [address] Dr. Dk Mahoney IG % 0.4 % Normal 0.0-0.5 [facility] Comment on above: Performed By: #### M SHIREEN Vidal, PHOS #### [facility] [address] [place] [address] Dr. Dk Mahoney LYMPH # 0.9 103/ul Critically low 1.2-3.8 [facility] Comment on above: Performed By: #### Rosmery Vidal CMP, PHOS #### [facility] [address] [place] [address] Dr. Dk Mahoney Lymphocytes/100 WBC (Bld) 13.8 % Critically low 20.5-60.0 [facility] Comment on above: Performed By: #### M Young CMP, PHOS #### [facility] [address] [address] [address] Dk Mahoney MANUAL DIFF REQ NO Normal [facility] Comment on above: Performed By: #### M G, CMP, PHOS #### [facility] [address] [address] [address] Dk Mahoney MCH (RBC) [Entitic mass] 28.4 pg Normal 25.9-34.0 [facility] Comment on above: Performed By: #### M G, CMP, PHOS #### [facility] [address] [address] [address] Dk Mahoney MCHC (RBC) [Mass/Vol] 34.3 g/dL Normal 29.9-35.2 [facility] Comment on above: Performed By: #### M G, CMP, PHOS #### [facility] [address] [place] [address] Dr. Dk Mahoney MCV (RBC) [Entitic vol] 82.8 fL Normal 80.0-94.0 [facility] Comment on above: Performed By: #### M G, CMP, PHOS #### [facility] [address] [address] [address] Dk Mahoney MONO # 0.6 103/ul Normal 0.3-0.8 [facility] Comment on above: Performed By: #### M G, CMP, PHOS #### [facility] [address] [address] [address] Dk Mahoney Monocytes/100 WBC (Bld) 8.8 % Normal 1.7-12.0 [facility] Comment on above: Performed By: #### M G, CMP, PHOS #### [facility] [address] [place] [address] Dr. Dk Mahoney NEUT # 4.9 103/ul Normal 1.4-6.5 [facility] Comment on above: Performed By: #### M G, CMP, PHOS #### [facility] [address] [place] [address] Dr. Dk Mahoney Neutrophils/100 WBC (Bld) 71.9 % Normal 43.0-75.0 [facility] Comment on above: Performed By: #### M G CMP, PHOS #### [facility] [address] [place] [address] Dr. Dk Mahoney Platelet mean volume (Bld) [Entitic vol] 9.3 fL Critically low 9.5-13.5 [facility] Comment on above: Performed By: #### M Young CMP, PHOS #### [facility] [address] [place] [address] Dr. Dk Mahoney PLT 178 103/ul Normal 150-450 [facility] Comment on above: Performed By: #### M SHIREEN Vidal, PHOS #### [facility] [address] [place] [address] Dr. Dk Mahoney RBC 2.61 106/ul Critically low 4.70-6.10 [facility] Comment on above: Performed By: #### Rosmery Vidal CMP, PHOS #### [facility] [address] [place] [address] Dr. Dk Mahoeny WBC 6.8 103/ul Normal 4.0-11.0 [facility] Comment on above: Performed By: #### Rosmery Vidal CMP, PHOS #### [facility] [address] [place] [address] Dr. Dk Mahoney Covid-19 PCR (CVDTB)on 04-15 SARS-CoV-2 (COVID-19) RNA JASON+probe Ql (Unsp spec) Not detected Normal NOT DETECTED [facility] Comment on above: Result Comment: [...] for this test is supported by the [place] of [employer] and Human Service's declaration that [...] used). Performed By: #### P OCGLUC #### [facility] [address] [place] [address] Dr. Dk Mahoney PROF CHEM 8 (BAS METB)on Anion gap [Moles/Vol] 14.7 mmol/L Normal Th [facility] Comment on above: Performed By: #### M G, CMP, PHOS #### [facility] [address] [place] [address] Dr. Dk Mahoney Calcium [Mass/Vol] 9.3 mg/dL Normal 8.5-10.1 [facility] Comment on above: Performed By: #### M G, CMP, PHOS #### [facility] [address] [place] [address] Dr. Dk Mahoney Chloride [Moles/Vol] 109 mmol/L Critically high 98-107 [facility] Comment on above: Performed By: #### M G, CMP, PHOS #### [facility] [address] [place] [address] Dr. Dk Mahoney CO2 [Moles/Vol] 21.3 mmol/L Normal 21.0-32.0 [facility] Comment on above: Performed By: #### M G, CMP, PHOS #### [facility] [address] [place] [address] Dr. Dk Mahoney Creatinine [Mass/Vol] 4.61 mg/dL Critically high 0.70-1.30 [facility] Comment on above: Performed By: #### M G, CMP, PHOS #### [facility] [address] [place] [address] Dr. Dk Mahoney EGFR-AF TUVALUAN 15 mL/min/1.73m2 Critically low >=60 [facility] Comment on above: Performed By: #### M G, CMP, PHOS #### [facility] [address] [address] [address] Dk Mahoney EGFR-NON AF TUVALUAN 13 mL/min/1.73m2 Critically low >=60 [facility] Comment on above: Performed By: #### M G, CMP, PHOS #### [facility] [address] [address] [address] Dk Mahoney Glucose [Mass/Vol] 200 mg/dL Critically high 74-106 T [facility] Comment on above: Performed By: #### M G, CMP, PHOS #### [facility] [address] [place] [address] Dr. Dk Mahoney Potassium [Moles/Vol] 5.0 mmol/L Normal 3.5-5.1 [facility] Comment on above: Performed By: #### M G, CMP, PHOS #### [facility] [address] [place] [address] Dr. Dk Mahoney Sodium [Moles/Vol] 140 mmol/L Normal 136-145 [facility] Comment on above: Performed By: #### M G, CMP, PHOS #### [facility] [address] [address] [address] Dk Mahoney Urea nitrogen [Mass/Vol] 64.0 mg/dL Critically high 7.0-18.0 [facility] Comment on above: Performed By: #### M G, CMP, PHOS #### [facility] [address] [place] [address] Dr. Dk Mahoney Urea nitrogen/Creatinine [Mass ratio] 13.9 mg/mg Normal [facility] Comment on above: Performed By: #### M G, CMP, PHOS #### [facility] [address] [place] [address] Dr. Dk Mahoney TROPONIN, HIGH SENSITIVITYon 05-04-2022 HSTROP 29.4 pg/mL Normal 4.0-76.1 [facility] Comment on above: Result Comment: CUT- OFF POINTS HAVE BEEN ESTABLISHED BASED ON THE FOURTH UNIVERSAL DEFINITIONS OF MYOCARDIAL INFARCTION. THE UPPER REFERENCE LIMIT (URL) OF TROPONIN, DEFINED THE 99TH PERCENTILE OF cTnI DISTRIBUTION IN A REFERENCE POPULATION, HAS BEEN CONFIRMED THE DECISION THRESHOLD FOR [place] DIAGNOSIS. Performed By: #### M G, CMP, PHOS #### [facility] [address] [address] [address] Dk Mahoney TYPE AND SCREENon 05-04-2022 TYPE AND SCREEN Negative Normal [facility] Comment on above: Performed By: #### A NOE, TNS #### [facility] [address] [address] [address] Dk Mahoney US ROWAN DOP LEG [...] by: ROBERTO HEBERT Date: 2022-05-04 14:33 Normal [facility] PRBC LEUKOREDUCEDon 04-29-19 23 PRBC LEUKOREDUCED Cross Match Result Compatible Unit Blood Type O Neg Unit Number [id number] Status Information Transfused Product ID Red Blood Cells Product Code [id number] Normal [facility] Comment on above: Performed By: #### P RBC #### [facility] [address] [address] [address] Dk Mahoney ABO RH RETYPEon 04-19-2022 ABO and Rh group Nom (Bld) DONE Normal [facility] Comment on above: Performed By: #### M G, CMP, PHOS #### [facility] [address] [address] [address] Dk Mahoney CBC AUTO DIFFon 04-19-2022 BASO # 0.1 103/ul Normal 0.0-0.1 [facility] Comment on above: Performed By: #### M G, CMP, PHOS #### [facility] [address] [address] [address] Dk Mahoney Basophils/100 WBC (Bld) 0.8 % Normal 0.2-2.0 [facility] Comment on above: Performed By: #### M G, CMP, PHOS #### [facility] [address] [address] [address] Dk Mahoney EO # 0.5 103/ul Normal 0.0-0.7 [facility] Comment on above: Performed By: #### M G, CMP, PHOS #### [facility] [address] [place] [address] Dr. Dk Mahoney Eosinophils/100 WBC (Bld) 6.9 % Normal 0.9-7.0 [facility] Comment on above: Performed By: #### M G, CMP, PHOS #### [facility] [address] [place] [address] Dr. Dk Mahoney Erythrocyte distribution width (RBC) [Ratio] 16.3 % Critically high 11.0-15.0 [facility] Comment on above: Performed By: #### M G CMP, PHOS #### [facility] [address] [place] [address] Dr. Dk Mahoney Hematocrit (Bld) [Volume fraction] 20.8 % Critically low 42.0-54.0 [facility] Comment on above: Performed By: #### M G, CMP, PHOS #### [facility] [address] [place] [address] Dr. Dk Mahoney Hemoglobin (Bld) [Mass/Vol] 6.8 g/dL Critically low 14.0-18.0 [facility] Comment on above: Performed By: #### M G, CMP, PHOS #### [facility] [address] [place] [address] Dr. Dk Mahoney IG # 0.04 10e3/ul Critically high 0.00-0.03 The [facility] Comment on above: Performed By: #### M G, CMP, PHOS #### [facility] [address] [place] [address] Dr. Dk Mahoney IG % 0.6 % Critically high 0.0-0.5 [facility] Comment on above: Performed By: #### M G, CMP, PHOS #### [facility] [address] [address] [address] Dk Mahoney LYMPH # 1.0 103/ul Critically low 1.2-3.8 [facility] Comment on above: Performed By: #### M G, CMP, PHOS #### [facility] [address] [address] [address] Dk Mahoney Lymphocytes/100 WBC (Bld) 14.1 % Critically low 20.5-60.0 [facility] Comment on above: Performed By: #### M G, CMP, PHOS #### [facility] [address] [place] [address] Dr. Dk Mahoney MANUAL DIFF REQ NO Normal [facility] Comment on above: Performed By: #### M G, CMP, PHOS #### [facility] [address] [place] [address] Dr. Dk Mahoney MCH (RBC) [Entitic mass] 29.3 pg Normal 25.9-34.0 [facility] Comment on above: Performed By: #### M G, CMP, PHOS #### [facility] [address] [place] [address] Dr. Dk Mahoney MCHC (RBC) [Mass/Vol] 32.7 g/dL Normal 29.9-35.2 [facility] Comment on above: Performed By: #### M G, CMP, PHOS #### [facility] [address] [place] [address] Dr. Dk Mahoney MCV (RBC) [Entitic vol] 89.7 fL Normal 80.0-94.0 [facility] Comment on above: Performed By: #### M G, CMP, PHOS #### [facility] [address] [place] [address] Dr. Dk Mahoney MONO # 0.7 103/ul Normal 0.3-0.8 [facility] Comment on above: Performed By: #### M G, CMP, PHOS #### [facility] [address] [place] [address] Dr. Dk Mahoney Monocytes/100 WBC (Bld) 10.1 % Normal 1.7-12.0 [facility] Comment on above: Performed By: #### M Young, CMP, PHOS #### [facility] [address] [place] [address] Dr. Dk Mahoney NEUT # 4.9 103/ul Normal 1.4-6.5 [facility] Comment on above: Performed By: #### M Young CMP, PHOS #### [facility] [address] [place] [address] Dr. Dk Mahoney Neutrophils/100 WBC (Bld) 67.5 % Normal 43.0-75.0 [facility] Comment on above: Performed By: #### M Young CMP, PHOS #### [facility] [address] [place] [address] Dr. Dk Mahoney Platelet mean volume (Bld) [Entitic vol] 9.5 fL Normal 9.5-13.5 [facility] Comment on above: Performed By: #### Rosmery Vidal CMP, PHOS #### [facility] [address] [place] [address] Dr. Dk Mahoney PLT 212 103/ul Normal 150-450 [facility] Comment on above: Performed By: #### Rosmery Vidal CMP, PHOS #### [facility] [address] [place] [address] Dr. Dk Mahoney RBC 2.32 106/ul Critically low 4.70-6.10 [facility] Comment on above: Performed By: #### Rosmery Vidal CMP, PHOS #### [facility] [address] [place] [address] Dr. Dk Mahoney WBC 7.2 103/ul Normal 4.0-11.0 [facility] Comment on above: Performed By: #### M Young CMP, PHOS #### [facility] [address] [place] [address] Dr. Dk Mahoney [facility]19 [facility]on SARS-CoV-2 (COVID-19) RNA JASON+probe Ql (Unsp spec) Not detected Normal NOT DETECTED [facility] Comment on above: Result Comment: [...] for this test is supported by the [place] of [employer] and Human Service's declaration that [...] By: #### Rosmery Vidal CMP, PHOS #### [facility] [address] [place] [address] Dr. Dk Mahoney PROF 14(COMP METB)on 023 Albumin [Mass/Vol] 2.4 g/dL Critically low 3.4-5.0 Th [facility] Comment on above: Performed By: #### Rosmery Vidal CMP, PHOS #### [facility] [address] [place] [address] Dr. Dk Mahoney Albumin/Globulin [Mass ratio] 0.6 {ratio} Normal [facility] Comment on above: Performed By: #### Rosmery Vidal CMP, PHOS #### [facility] [address] [place] [address] Dr. Dk Mahoney ALP [Catalytic activity/Vol] 142 U/L Critically high 46-116 [facility] Comment on above: Performed By: #### M SHIREEN Vidal, PHOS #### [facility] [address] [place] [address] Dr. Dk Mahoney ALT [Catalytic activity/Vol] 26 U/L Normal 16-63 [facility] Comment on above: Performed By: #### Rosmery Vidal CMP, PHOS #### [facility] [address] [place] [address] Dr. Dk Mahoney Anion gap [Moles/Vol] 12.0 mmol/L Normal Th [facility] Comment on above: Performed By: #### M SHIREEN Vidal, PHOS #### [facility] [address] [address] [address] Dk Mahoney AST [Catalytic activity/Vol] 19 U/L Normal 15-37 [facility] Comment on above: Performed By: #### M SHIREEN Vidal, PHOS #### [facility] [address] [address] [address] Dk Mahoney Bilirubin [Mass/Vol] 0.3 mg/dL Normal 0.2-1.0 [facility] Comment on above: Performed By: #### M SHIREEN Vidal, PHOS #### [facility] [address] [place] [address] Dr. Dk Mahoney Calcium [Mass/Vol] 9.3 mg/dL Normal 8.5-10.1 [facility] Comment on above: Performed By: #### Rosmery Vidal CMP, PHOS #### [facility] [address] [place] [address] Dr. Dk Mahoney Chloride [Moles/Vol] 109 mmol/L Critically high 98-107 [facility] Comment on above: Performed By: #### M SHIREEN Vidal, PHOS #### [facility] [address] [place] [address] Dr. Dk Mahoney CO2 [Moles/Vol] 25.0 mmol/L Normal 21.0-32.0 [facility] Comment on above: Performed By: #### M Young CMP, PHOS #### [facility] [address] [address] [address] Dk Mahoney Creatinine [Mass/Vol] 4.83 mg/dL Critically high 0.70-1.30 [facility] Comment on above: Performed By: #### M Young CMP, PHOS #### [facility] [address] [address] [address] Dk Mahoney EGFR-AF TUVALUAN 15 mL/min/1.73m2 Critically low >=60 [facility] Comment on above: Performed By: #### M Young, CMP, PHOS #### [facility] [address] [address] [address] Dk Mahoney EGFR-NON AF TUVALUAN 12 mL/min/1.73m2 Critically low >=60 [facility] Comment on above: Performed By: #### M G, CMP, PHOS #### [facility] [address] [place] [address] Dr. Dk Mahoney Globulin (S) [Mass/Vol] 4.1 g/dL Normal [facility] Comment on above: Performed By: #### M G, CMP, PHOS #### [facility] [address] [place] [address] Dr. Dk Mahoney Glucose [Mass/Vol] 128 mg/dL Critically high 74-106 [facility] Comment on above: Performed By: #### M G, CMP, PHOS #### [facility] [address] [place] [address] Dr. Dk Mahoney Potassium [Moles/Vol] 5.0 mmol/L Normal 3.5-5.1 [facility] Comment on above: Performed By: #### M G, CMP, PHOS #### [facility] [address] [place] [address] Dr. Dk Mahoney Protein [Mass/Vol] 6.5 g/dL Normal 6.4-8.2 [facility] Comment on above: Performed By: #### M G, CMP, PHOS #### [facility] [address] [address] [address] Dk Mahoney Sodium [Moles/Vol] 141 mmol/L Normal 136-145 [facility] Comment on above: Performed By: #### M G, CMP, PHOS #### [facility] [address] [place] [address] Dr. Dk Mahoney Urea nitrogen [Mass/Vol] 62.0 mg/dL Critically high 7.0-18.0 [facility] Comment on above: Performed By: #### M G, CMP, PHOS #### [facility] [address] [place] [address] Dr. Dk Mahoney Urea nitrogen/Creatinine [Mass ratio] 12.8 mg/mg Normal [facility] Comment on above: Performed By: #### M G, CMP, PHOS #### [facility] [address] [place] [address] Dr. Dk Mahoney PROTIMEon 04-19-2022 INR Coag (PPP) [Relative time] 1.01 {INR} Normal [facility] Comment on above: Performed By: #### P OCGLUC #### [facility] [address] [place] [address] Dr. Dk Mahoney INR GUIDELINES SEE BELOW Normal [facility] Comment on above: Result Comment: JOSELO RED INR: 2.0 - 3.0 CONDITIONS NOT LISTED BELOW 2.5 - 3.5 FOR PROSTHETIC HEART VALVE REPLACEMENT 2.5 - 3.5 RECURRENT THROMBOSIS Performed By: #### P OCGLUC #### [facility] [address] [place] [address] Dr. Dk Mahoney PT Coag (PPP) [Time] 10.9 s Normal 9.0-11.6 [facility] Comment on above: Performed By: #### P OCGLUC #### [facility] [address] [place] [address] Dr. Dk Mahoney PTTon 04-19-2022 aPTT Coag (Bld) [Time] 25.8 s Normal 22.3-36.2 Th [facility] Comment on above: Performed By: #### P OCGLUC #### [facility] [address] [place] [address] Dr. Dk Mahoney TYPE AND SCREENon 04-19-2022 TYPE AND SCREEN Negative Normal [facility] Comment on above: Performed By: #### P OCGLUC #### [facility] [address] [place] [address] Dr. Dk Mahoney CBC AUTO DIFFon 10-24-2021 BASO # 0.1 103/ul Normal 0.0-0.1 [facility] Comment on above: Performed By: #### C BC #### [facility] [address] [place] [address] Dr. Dk Mahoney Basophils/100 WBC (Bld) 0.7 % Normal 0.2-2.0 [facility] Comment on above: Performed By: #### C BC #### [facility] [address] [place] [address] Dr. Dk Mahoney EO # 0.6 103/ul Normal 0.0-0.7 [facility] Comment on above: Performed By: #### C BC #### [facility] [address] [place] [address] Dr. Dk Mahoney Eosinophils/100 WBC (Bld) 7.7 % Critically high 0.9-7.0 [facility] Comment on above: Performed By: #### C BC #### [facility] [address] [place] [address] Dr. Dk Mahoney Erythrocyte distribution width (RBC) [Ratio] 17.2 % Critically high 11.0-15.0 [facility] Comment on above: Performed By: #### C BC #### [facility] [address] [place] [address] Dr. Dk Mahoney Hematocrit (Bld) [Volume fraction] 26.1 % Critically low 42.0-54.0 [facility] Comment on above: Performed By: #### C BC #### [facility] [address] [place] [address] Dr. Dk Mahoney Hemoglobin (Bld) [Mass/Vol] 8.1 g/dL Critically low 14.0-18.0 [facility] Comment on above: Performed By: #### C BC #### [facility] [address] [place] [address] Dr. Dk Mahoney IG # 0.06 10e3/ul Critically high 0.00-0.03 [facility] Comment on above: Performed By: #### C BC #### [facility] [address] [place] [address] Dr. Dk Mahoney IG % 0.8 % Critically high 0.0-0.5 [facility] Comment on above: Performed By: #### C BC #### [facility] [address] [place] [address] Dr. Dk Mahoney LYMPH # 1.4 103/ul Normal 1.2-3.8 [facility] Comment on above: Performed By: #### C BC #### [facility] [address] [place] [address] Dr. Dk Mahoney Lymphocytes/100 WBC (Bld) 18.1 % Critically low 20.5-60.0 [facility] Comment on above: Performed By: #### C BC #### [facility] [address] [place] [address] Dr. Dk Mahoney MANUAL DIFF REQ NO Normal [facility] Comment on above: Performed By: #### C BC #### [facility] [address] [place] [address] Dr. Dk Mahoney MCH (RBC) [Entitic mass] 25.6 pg Critically low 25.9-34.0 [facility] Comment on above: Performed By: #### C BC #### [facility] [address] [place] [address] Dr. Dk Mahoney MCHC (RBC) [Mass/Vol] 31.0 g/dL Normal 29.9-35.2 [facility] Comment on above: Performed By: #### C BC #### [facility] [address] [place] [address] Dr. Dk Mahoney MCV (RBC) [Entitic vol] 82.3 fL Normal 80.0-94.0 [facility] Comment on above: Performed By: #### C BC #### [facility] [address] [place] [address] Dr. Dk Mahoney MONO # 0.9 103/ul Critically high 0.3-0.8 [facility] Comment on above: Performed By: #### C BC #### [facility] [address] [place] [address] Dr. Dk Mahoney Monocytes/100 WBC (Bld) 12.4 % Critically high 1.7-12.0 [facility] Comment on above: Performed By: #### C BC #### [facility] [address] [place] [address] Dr. Dk Mahoney NEUT # 4.6 103/ul Normal 1.4-6.5 [facility] Comment on above: Performed By: #### C BC #### [facility] [address] [address] [address] Dk Mahoney Neutrophils/100 WBC (Bld) 60.3 % Normal 43.0-75.0 [facility] Comment on above: Performed By: #### C BC #### [facility] [address] [address] [address] Dk Mahoney Platelet mean volume (Bld) [Entitic vol] 9.5 fL Normal 9.5-13.5 [facility] Comment on above: Performed By: #### C BC #### [facility] [address] [place] [address] Dr. Dk Mahoney PLT 201 103/ul Normal 150-450 [facility] Comment on above: Performed By: #### C BC #### [facility] [address] [place] [address] Dr. Dk Mahoney RBC 3.17 106/ul Critically low 4.70-6.10 [facility] Comment on above: Performed By: #### C BC #### [facility] [address] [place] [address] Dr. Dk Mahoney WBC 7.5 103/ul Normal 4.0-11.0 [facility] Comment on above: Performed By: #### C BC #### [facility] [address] [place] [address] Dr. Dk Mahoney PROF CHEM 8 (BAS METB)on Anion gap [Moles/Vol] 12.3 mmol/L Normal [facility] Comment on above: Performed By: #### M G, CMP, PHOS #### [facility] [address] [place] [address] Dr. Dk Mahoney Calcium [Mass/Vol] 9.6 mg/dL Normal 8.5-10.1 [facility] Comment on above: Performed By: #### M G, CMP, PHOS #### [facility] [address] [place] [address] Dr. Dk Mahoney Chloride [Moles/Vol] 107 mmol/L Normal 98-107 [facility] Comment on above: Performed By: #### M SHIREEN Vidal, PHOS #### [facility] [address] [address] [address] Dk Mahoney CO2 [Moles/Vol] 26.5 mmol/L Normal 21.0-32.0 [facility] Comment on above: Performed By: #### Rosmery Vidal CMP, PHOS #### [facility] [address] [address] [address] Dk Mahoney Creatinine [Mass/Vol] 3.76 mg/dL Critically high 0.70-1.30 [facility] Comment on above: Performed By: #### Rosmery Vidal CMP, PHOS #### [facility] [address] [place] [address] Dr. Dk Mahoney EGFR-AF TUVALUAN 19 mL/min/1.73m2 Critically low >=60 [facility] Comment on above: Performed By: #### Rosmery Vidal CMP, PHOS #### [facility] [address] [place] [address] Dr. Dk Mahoney EGFR-NON AF TUVALUAN 16 mL/min/1.73m2 Critically low >=60 [facility] Comment on above: Performed By: #### Rosmery Vidal CMP, PHOS #### [facility] [address] [place] [address] Dr. Dk Mahoney Glucose [Mass/Vol] 143 mg/dL Critically high 74-106 [facility] Comment on above: Performed By: #### M SHIREEN Vidal, PHOS #### [facility] [address] [address] [address] Dk Mahoney Potassium [Moles/Vol] 4.8 mmol/L Normal 3.5-5.1 [facility] Comment on above: Performed By: #### M SHIREEN Vidal, PHOS #### [facility] [address] [address] [address] Dk Mahoney Sodium [Moles/Vol] 141 mmol/L Normal 136-145 [facility] Comment on above: Performed By: #### M Young CMP, PHOS #### [facility] [address] [place], [place] [address] Dr. Dk Mahoney Urea nitrogen [Mass/Vol] 47.0 mg/dL Critically high 7.0-18.0 [facility] Comment on above: Performed By: #### M G, CMP, PHOS #### [facility] [address] [place], [place] [address] Dr. Dk Mahoney Urea nitrogen/Creatinine [Mass ratio] 12.5 mg/mg Normal [facility] Comment on above: Performed By: #### M G, CMP, PHOS #### [facility] [address] [place], [place] [address] Dr. Dk Mahoney US ROWAN DOP LEG [...] MARQUES AMAYA Date: 2021-10-24 18:07 Normal [facility] Office Visit (Urology)on Follow-up visit [...] Verbal consent was requested and obtained from MATTAmaury HONEYCUTT on this date, 09/06/2020 03:30 PM [...] (Author) Normal [employer] Microscopic UrinalysisOrdere d By: Barak Pro on 08-29-2020 - [facility] Work Phone: Amorphous, UA NOT REPORTED None [employer] [facility] Work Phone: Bacteria, UA 2+ Abnormal None [employer] [facility] Work Phone: Casts UA NOT REPORTED /LPF [facility] Work Phone: Crystals, UA NOT REPORTED None /HPF [employer] [facility] Work Phone: Epithelial Cells UA 2 TO 5 [facility] Work Phone: Interpretation and review of laboratory results Abnormal [facility] Work Phone: Mucus, UA NOT REPORTED None [facility] [facility] Phone: Other Observations UA NOT REPORTED NOT REQ. [employer] Work Phone: RBC, UA [address] [facility] Work Phone: Renal Epithelial, UA NOT REPORTED 0 /HPF [facility] Work Phone: Trichomonas, UA NOT REPORTED None [facility] Work Phone: WBC, UA GREATER THAN 100 [facility] Work Phone: Yeast, UA NOT REPORTED None [facility] [employer] Work Phone: [facility] Work Phone: Urinalysis Reflex to Culture Ordered By: Barak Pro on 08-29-2020 Bilirubin Urine Negative NEGATIVE [facility] Work Phone: Color, UA YELLOW YELLOW [facility] [employer] Work Phone: Glucose, Ur Negative NEGATIVE [facility] [employer] Work Phone: Interpretation and review of laboratory results Abnormal [facility] [employer] Work Phone: Ketones Ql (U) Negative NEGATIVE [facility] Work Phone: Leukocyte esterase Test strip Ql (U) LARGE Abnormal NEGATIVE [facility] Phone: Nitrite, Urine Positive Abnormal NEGATIVE [facility] Work Phone: pH, UA 7.5 [facility] [employer] Work Phone: Protein, UA 1+ Abnormal NEGATIVE [facility] [employer] Work Phone: Specific [place], UA 1.010 [facility] [employer] Work Phone: Turbidity UA CLEAR CLEAR [facility] [employer] Work Phone: Urinalysis Comments NOT REPORTED [facility] [employer] Work Phone: Urine Hgb 3+ Abnormal NEGATIVE [facility] [employer] Work Phone: Urobilinogen, Urine Normal Normal [facility] Work Phone: [facility] [employer] Work Phone: Microscopic Urinalysison Amorphous, UA NOT REPORTED None [facility], [place] Bacteria, UA 2+ Abnormal None [facility] [place] Casts UA NOT REPORTED /LPF [facility], [place] Crystals, UA NOT REPORTED None /HPF [facility], [place] Epithelial Cells UA 2 TO 5 [place] Interpretation and review of laboratory results Abnormal [place] Mucus, UA NOT REPORTED None [facility], [place] Other Observations UA NOT REPORTED NOT REQ. M [facility], [place] RBC (U) [#/Vol] 20 TO 50 [place] Renal Epithelial, UA NOT REPORTED 0 /HPF [facility], [place] Trichomonas, UA NOT REPORTED None [facility], [place] WBC, UA GREATER THAN 100 [place] Yeast, UA NOT REPORTED None [place] - [facility], [place] Urinalysison 02-03-2020 Bilirubin Urine Negative NEGATIVE [place] Color, UA YELLOW YELLOW [place] Glucose, Ur Negative NEGATIVE [place] Interpretation and review of laboratory results Abnormal [place] Ketones Ql (U) Negative NEGATIVE [place] Leukocyte esterase Test strip Ql (U) LARGE Abnormal NEGATIVE [place] Nitrite, Urine Positive Abnormal NEGATIVE [place] pH, UA 8.0 [place] Protein (U) [Mass/Vol] TRACE Abnormal NEGATIVE [facility], [place] Specific [place], UA 1.015 [place], [place] Turbidity UA SLIGHTLY CLOUDY Abnormal CLEAR [place] Urinalysis Comments NOT REPORTED [facility] [place] [place] Urine Hgb 3+ Abnormal NEGATIVE [place] Urobilinogen, Urine Normal Normal [place] Vital Signs Date Time Vital Sign Value Performing Clinician Facility 11-06-2023 17:00-0400 Body temperature 97.6 [degF] DO Barak Pro (Clinic) Work Phone: [facility] 11-06-2023 17:00-0400 Diastolic blood pressure 53 mm[Hg] DO Barak Pro (Clinic) Work Phone: [facility] 11-06-2023 17:00-0400 Heart rate 81 /min DO Barak Pro (Clinic) Work Phone: [facility] 11-06-2023 17:00-0400 Respiratory rate 18 /min DO Barak Pro (Clinic) Work Phone: [facility] 11-06-2023 17:00-0400 SaO2% (BldA) [Mass fraction] 99 % DO Barak Pro (Clinic) Work Phone: [facility] 11-06-2023 17:00-0400 Systolic blood pressure 116 mm[Hg] DO Barak Pro (Clinic) Work Phone: [facility] 11-06-2023 14:38-0400 Body height 180.34 cm DO Barak Pro (Clinic) Work Phone: [facility] 11-06-2023 14:38-0400 Body weight 131.4 kg DO Barak Pro (Clinic) Work Phone: [facility] 11-03-2023 16:00-0400 Diastolic blood pressure 94 mm[Hg] DO Barak Pro (Clinic) Work Phone: [facility] 11-03-2023 16:00-0400 Heart rate 66 /min DO Barak Pro (Clinic) Work Phone: [facility] 11-03-2023 16:00-0400 Respiratory rate 18 /min DO Barak Pro (Clinic) Work Phone: [facility] 11-03-2023 16:00-0400 SaO2% (BldA) [Mass fraction] 96 % DO Barak Pro (Clinic) Work Phone: [facility] 11-03-2023 16:00-0400 Systolic blood pressure 147 mm[Hg] DO Barak Pro (Clinic) Work Phone: [facility] 11-03-2023 14:49-0400 Body height 180.34 cm DO Barak Pro (Clinic) Work Phone: [facility] 11-03-2023 14:30-0400 Body temperature 98 [degF] DO Barak Pro (Clinic) Work Phone: [facility] 11-03-2023 06:00-0400 Body weight 137.4 kg DO Barak Pro (Clinic) Work Phone: [facility] 10-31-2023 14:56-0400 Body temperature 98.7 [degF] DO Barak Pro (Clinic) Work Phone: [facility] 10-31-2023 14:56-0400 Diastolic blood pressure 65 mm[Hg] DO Barak Pro (Clinic) Work Phone: [facility] 10-31-2023 14:56-0400 Heart rate 73 /min DO Barak Pro (Clinic) Work Phone: [facility] 10-31-2023 14:56-0400 Respiratory rate 20 /min DO Barak Pro (Clinic) Work Phone: [facility] 10-31-2023 14:56-0400 SaO2% (BldA) [Mass fraction] 95 % DO Barak Pro (Clinic) Work Phone: [facility] 10-31-2023 14:56-0400 Systolic blood pressure 111 mm[Hg] DO Barak Pro (Clinic) Work Phone: [facility] 10-31-2023 06:00-0400 Body weight 134.2 kg DO Barak Pro (Clinic) Work Phone: [facility] 10-28-2023 13:07-0400 Body height 182.88 cm DO Barak Pro (Clinic) Work Phone: [facility] 10-28-2023 11:56-0400 Inhaled oxygen flow rate 4 L/min DO Barak Morteza ([facility]) Work Phone: [facility] 10-08-2022 12:20-0400 Body height 180.34 cm Devaughn Khadijah Other [employer] Other 10-08-2022 12:20-0400 Body temperature 96.6 [degF] Devaughn Khadijah Other [employer] Other 10-08-2022 12:20-0400 Diastolic blood pressure 60 mm[Hg] Devaughn Khadijah Other [employer] Other 10-08-2022 12:20-0400 Respiratory rate 18 /min Devaughn Khadijah Other [employer] Other 10-08-2022 12:20-0400 SaO2% (BldA) [Mass fraction] 100 % Devaughn Khadijah Other [employer] Other 10-08-2022 12:20-0400 Systolic blood pressure 121 mm[Hg] Devaughn Khadijah Other [employer] Other 10-01-2022 13:30-0400 Body height 180.34 cm Erik Sanderson Other [employer] Other 10-01-2022 13:30-0400 Body mass index (BMI) [Ratio] 42.12 kg/m2 Erik Sanderson Other [employer] Other 10-01-2022 13:30-0400 Body temperature 97.2 [degF] Erik Sanderson Other [employer] Other 10-01-2022 13:30-0400 Body weight 136.99 kg Erik Sanderson Other [employer] Other 10-01-2022 13:30-0400 Diastolic blood pressure 68 mm[Hg] Erik Dunner Other [employer] Other 10-01-2022 13:30-0400 SaO2% (BldA) [Mass fraction] 97 % Erik Sanderson Other [employer] Other 10-01-2022 13:30-0400 Systolic blood pressure 138 mm[Hg] Erik Shepherdrer Other [employer] Other Encounters Encounter Date Encounter Type Care Provider Facility Start: 11-06-2023 End: 11-06-2023 Emergency department patient visit DO Barak Pro (Clinic) Work Phone: [facility]-Emergency Room Work Phone: Start: 11-02-2023 Non-patient / Non-visit DO Barak Pro (Clinic) Work Phone: [facility] Work Phone: Start: 11-02-2023 Non-patient / Non-visit DO Barak Pro (Clinic) Work Phone: [facility] Work Phone: Start: 11-02-2023 End: 11-03-2023 Evaluation and management of inpatient DO Barak Pro (Clinic) Work Phone: [facility] Work Phone: Start: 10-30-2023 Non-patient / Non-visit DO Barak Pro (Clinic) Work Phone: [facility] Work Phone: Start: 10-29-2023 Non-patient / Non-visit DO Barak Morteza (Clinic) Work Phone: [facility] Work Phone: Start: 10-22-2023 Non-patient / Non-visit DO Barak Pro (Clinic) Work Phone: [facility] Work Phone: Start: 10-22-2023 End: 10-31-2023 Evaluation and management of inpatient DO Barak Pro (Clinic) Work Phone: [facility] Work Phone: Start: 10-22-2023 End: 10-22-2023 ambulatory Luigi Mar WATERLOO Facility::[phone] [id number] Start: 10-20-2023 End: 10-20-2023 Telephone encounter Denise Epps MD Work Phone: [facility] Start: 01-17-2023 End: 01-18-2023 ambulatory BLANCA VARGAS [facility] Start: 10-21-2022 End: 10-21-2022 ambulatory Devaughn Khadijah Other [employer] Other Start: 10-21-2022 Telephone encounter Devaughn Khadijah [facility] Start: 10-18-2022 End: 10-18-2022 ambulatory Devaughn Khadijah Other [employer] Other Start: 10-18-2022 Telephone encounter Devaughn Khadijah [facility] Start: 10-08-2022 End: 10-08-2022 ambulatory Devaughn Khadijah Other [employer] Other Start: 10-08-2022 Office outpatient visit 15 minutes Devaughn Khadijah [facility] Start: 10-01-2022 End: 10-01-2022 ambulatory Erik Sanderson Other [facility] [employer] Other Start: 10-01-2022 Office outpatient visit 25 minutes Erik Sanderson [facility] Start: 07-05-2022 End: 07-07-[address] ERIK RHODES . Facility: Start: 05-04-2022 End: 05-04-2022 ambulatory ROBERTO ALONSOPAULETTEMINAL Facility:[facility] Start: 04-19-2022 End: 04-19-[address] ERIK RHODES . Facility: Start: 03-14-2022 End: 03-14-2022 ambulatory NONE LISTED REQUEST Facility: Start: 10-24-2021 End: 10-24-2021 ambulatory KENDRA KEVIN . Facility: Start: 08-29-2020 End: 08-29-2020 [facility] Start: 02-03-2020 End: 02-03-2020 Subsequent hospital visit by physician [facility] Procedures Date Procedure Procedure Detail Performing Clinician Start: 11-03-2023 Esophagogastroduodenoscopy DO Barak grey (Clinic) Work Phone: Start: 10-28-2023 Catheterization DO Barak Pro ([facility]) Work Phone: Start: 10-22-2023 Urine culture DO Barak Pro ([facility]) Work Phone: Start: 10-22-2023 Fluoroscopic guidance DO Barak Pro ([facility]) Work Phone: Start: 08-29-2020 Urinalysis microscopic only Barak grey DO Work Phone: Start: 08-29-2020 Urnls dip stick/tablet rgnt auto w/o microscopy Barak Pro DO Work Phone: Start: 02-03-2020 Urinalysis microscopic only Barak grey Work Phone: Start: 02-03-2020 Urnls dip stick/tablet rgnt auto w/o microscopy Barak Pro Work Phone: Plan of Treatment Date Care Activity Detail Author Start: 01-13-2024 Influenza vaccination Influenz a Vaccine (#1) [facility] Start: 11-03-2023 [facility] Start: 11-02-2023 Referral to care tech [facility] Start: 11-02-2023 Referral to boat camp operator [facility] Start: 11-02-2023 Hospital admission [facility] Start: 10-31-2023 [facility] Start: 10-29-2023 Referral to palliati ve care physician [facility] Start: 10-22-2023 Insertion of Infusio n Device into Lower Vein, Percutaneous Approach Insertion of Infusion Device into Lower Vein, Percutaneous Approach [facility] Start: 10-22-2023 Insertion of Infusio n Device into Upper Vein, Percutaneous Approach Insertion of Infusion Device into Upper Vein, Percutaneous Approach [facility] Start: 10-22-2023 Insertion of [place] Vascular Access Device into Chest Subcutaneous Tissue and Fascia, Percutaneous Approach Insertion of Tunneled Vascular Access Device into Chest Subcutaneous Tissue and Fascia, Percutaneous Approach [facility] Start: 10-22-2023 [facility] Start: 10-22-2023 Referral to vascular surgeon [facility] Start: 10-22-2023 Referral to urologist [facility] Start: 10-22-2023 Hospital admission [facility] Start: 10-22-2023 Referral to boat camp operator [facility] Start: 04-14-2023 Annual wellness visit Annual W ellness Visit ([id number]) [facility] Start: 12-13-2022 COVID-19 Vaccine ( season) COVID-19 Vaccine ( season) [facility] Start: 12-13-2020 Influenza vaccination Flu vacc ine (Season Ended) [facility] Work Phone: Start: 04-30-2020 Creatinine measurement Creatinine mo nitoring [place] Start: 04-30-2020 Potassium monitoring Potassium monit oring [place] Start: 12-14-2019 Influenza vaccination Flu vaccine (# 1) [place] Start: 02-08-2019 Annual Wellness Visit (AWV) An nual Wellness Visit (AWV) [place] Start: 09-11-2015 Pneumococcal 65+ yea rs Vaccine (1 of 1 - PPSV23) Pneumococcal 65+ years Vaccine (1 of 1 - PPSV23) [place] Start: 09-11-2015 Pneumococcal vaccination Pneum ococcal Vaccine(s) (65+ yrs) (1 of 1 - PCV) [facility] Start: 2010 Hepatitis B (HBV) Va ccine (optional start 60+ years) Hepatitis B (HBV) Vaccine (optional start 60+ years) [facility] Start: 2010 RSV vaccine (optiona l 60+ years) RSV vaccine (optional 60+ years) [facility] Start: 2000 Screening for malign ant neoplasm of colon Colon cancer screen colonoscopy [place] Start: 2000 Shingles (RZV) Vacci ne (1 of 2) Shingles (RZV) Vaccine (1 of 2) [facility] Start: 2000 Shingles Vaccine (1 of 2) Ordoñez gles Vaccine (1 of 2) [place] Start: 09-11-1995 Screening for malign ant neoplasm of colon [facility] Start: 1985 [facility]id [facility] Start: 1969 DTaP/Tdap/Td vaccine (1 - Tdap) DTaP/Tdap/Td vaccine (1 - Tdap) [place] Start: 1969 Hepatitis A (HAV) Va ccine (optional start 19+ years) Hepatitis A (HAV) Vaccine (optional start 19+ years) [facility] Start: 1968 Hepatitis C screening Hepatitis C An tibody [facility] Start: 1968 Tetanus + diphtheria + acellular pertussis vaccine (product) Tdap Booster [facility] Start: 1962 COVID-19 Vaccine (1) COVID-19 Vaccin e (1) [facility] Work Phone: Start: 1960 Lipid panel Lipid screen [place], [place] Start: 1950 Hepatitis C screening Hepatitis C sc reen [place], [place] Start: 1950 Screening for malign ant neoplasm of colon Colonoscopy [facility] End: 02-03-2020 Culture, Urine Culture, Urine Microbiology Routine Once for 1 Occurrences starting 02/03/2020 until 02/03/2020 [place] Comment on above: Once for 1 Occurrenc es starting 02/03/2020 until 02/03/2020 Culture, Urine [place] End: 08-29-2020 Culture, Urine Culture, Urine Microbiology Routine Once for 1 Occurrences starting 08/29/2020 until 08/29/2020 [facility] Work Phone: Comment on above: Once for 1 Occurrenc es starting 08/29/2020 until 08/29/2020 Heparin induced plat elet Ab [Presence] in Serum [facility] Patient Education [facility] Work Phone: Patient referral [facility] Work Phone: [facility] Payers Date Payer Category Payer Self-pay [id number] 2023 Unknown [id number] 2022 Medicare [employer] MEDICARE [id number] 2022-Present [address] [place] [address] Medicare [id number] 2022 Medicare [id number] 2020 Medicare [id number] 2019 Medicare [id number] 2019 Unknown [id number] 2014 Medicare [employer] MED[employer] [facility] [id number] 2014-Present [address] [address] [place] [address] [id number] 1950 Unknown [id number] 1950 Unknown [id number] 1950 Unknown [id number] 1950 Unknown [id number] 1950 Unknown [id number] 1950 Unknown [id number] 1950 Unknown [id number] Medicare [id number] Unknown [id number] Unknown [id number] Social History Date Type Detail Facility Start: 02-05-2019 Tobacco smoking stat [facility] Unknown if ever smoked [employer] Work Phone: Start: 1950 Sex Assigned At Not on file [place], [place] Sex Assigned At [employer] Other Start: 10-30-2023 End: 11-06-2023 Tobacco smoking status ARIS Ex-smoker (finding) [facility] Start: 1950 Sex Assigned At Male [facility] Medical Equipment Procedure Code Equipment Code Equipment Origin al Text Equipment Identifier Dates Insertion, nephrostomy tube, with imaging guidance IR STENT URETERAL 8F 26CM FDA Start: 06-10-2019 Insertion, nephrostomy tube, with imaging guidance IR STENT URETERAL 8F 26CM FDA Start: 06-10-2019 Insertion, nephrostomy tube, with imaging guidance IR STENT URETERAL 8F 26CM FDA Start: 06-10-2019 Insertion, catheter, dialysis, tunneled, with imaging guidance Double-lumen haemodialysis catheter, implantable [id number] FDA Start: 09-03-2022 Insertion, catheter, dialysis, tunneled, with imaging guidance Double-lumen haemodialysis catheter, implantable [id number] FDA Start: 10-28-2023 Goals Date Patient Goal Desired Activity /State Functional Status Date Assessment Result Facility 11-03-2023 Functional status Patient at Baseline [facility] Work Phone: 10-31-2023 Functional status Patient at Baseline [facility] Work Phone: Mental Status Date Assessment Result Facility 11-03-2023 Cognitive function Cognitive Sta tus Patient at Baseline [facility] Work Phone: 10-31-2023 Cognitive function Cognitive Sta tus Patient at Baseline [facility] Work Phone: Clinical Notes 10-01-2022 to 11-03-2023 Note Date & Type Note Facility 11-03-2023 Progress note Note Date/Time November 03, 2023 8:00am [facility] [address] [place] [address] Nephrology Progress Note Signed Patient: Matt Honeycutt MR#: [id number] : 1950 Acct:[id number] Age/Sex: 73 / M Adm Date: 4 Loc: Room: [address] [place] [address] Type: ADM IN Attending Dr: Krysta Singer MD Copies to: ~ Date of Service: 11/03/2023 Subjective Subjective Narrative: Mr. Honeycutt is 73-year-old white gentleman who was recently discharged from the hospital on 11/01/2023 after admission for progressive CKD stage V with uremic symptoms with BUN 193 and creatinine 10 mg/dL. Patient has multiple medical problems including DM2, HTN, CAD, paraplegia requiring chronic indwelling Wooten catheter. He also has obstructive uropathy with bilateral ureteral stent with creatinine around 6 mg/dL since 2022 in the setting of obstructive uropathy. Patient had tunneled hemodialysis catheter before discharge. Hemoglobin did drop during hospital stay. Ferritin was more than 1000. Patient was started onerythropoietin. He was discharged with hemoglobin 7.6 g/dL. Outpatient dialysis was set at [facility] dialysis unit on MWF schedule as he has [facility]. Patient apparently went to outside hospital ER for pallor and fatigability and he is found to have hemoglobin 6 g/dL with positive stool for blood however there is no darren bleeding. He is on long-term baby aspirin however he does nottake any other blood thinners. He is on oral PPI. Patient did get 2 units of packed RBCs transfusion and transferred to [facility] forfurther evaluation. Nephrology was consulted for management of ESRD and dialysis. Interim History Patient was seen and examined at bedside during hemodialysis. He denies any chest pain palpation cough nausea or diarrhea shortness of breath he underwent aEGD this morning which which was normal. Biopsies are taken and pending. Exam Physical Exam Vital Signs: Temp Pulse Resp BP Pulse Ox O2 Del Method 98.0 F 59 L 18 122/59 L 96 Room Air 11/03/23 00:00 11/03/23 04:00 11/03/23 04:00 11/03/23 04:00 11/03/23 04:00 11/02/23 20:00 Narrative: General: Appears comfortable and not in distress Heart: S1-S2, no rub Lung: Bilateral air entry, no wheezing or crackles Abdomen: Soft, positive bowel sounds Extremities: 2+ edema, no cyanosis Head: Atraumatic, normocephalic Ear: No gross hearing Deficit or external ear redness Eyes: No pallor or redness Neck: No JVD or visible mass Skin: No rashes , warm to touch [employer]: Awake,Alert, following simple command Musculoskeletal: No swelling or limitation of movement of the large joints Psychiatric: Cooperative, normal mood and affect Objective Intake and Output I&O: Intake & Output 10/31/23 11/01/23 11/02/23 11/03/23 23:59 23:59 23:59 23:59 Intake Total 300 / 300 200 / 200 Output Total 200 / 200 75 / 75 Balance 100 / 100 125 / 125 Weight 130 kg 137.4 kg Meds and Allergies Meds: Active Medications Acetaminophen (Acetaminophen 325 Mg Tablet) 650 mg PO Q6HR PRN PRN Reason: Pain Scale 1 - 3 or fever Stop: 11/01/24 05:24 Albuterol (Albuterol Hfa 60 Puff/8 Gram Inhaler) 2 puff INHALATION Q6H PRN PRN Reason: Shortness Of Breath Or Wheezing Stop: 11/02/24 07:41 Atorvastatin Calcium (Atorvastatin 80 Mg Tablet) 80 mg PO DAILY [facility] Stop: 11/02/24 08:59 Calcitriol (Calcitriol 0.25 Mcg Capsule) 0.25 mcg PO 3XW DELFIN Stop: 11/02/24 08:59 Dextrose (Dextrose 50% In Water 25 Gm/50 Ml Syringe) 0 gm IV-PUSH PRN PRN PRN Reason: Hypoglycemia Stop: 11/01/24 06:42 Dextrose (Dextrose 50% In Water 25 Gm/50 Ml Syringe) 0 gm IV-PUSH PRN PRN PRN Reason: Hypoglycemia Stop: 11/02/24 07:41 Finasteride (Finasteride 5 Mg Tablet) 5 mg PO DAILY [facility] Stop: 11/02/24 08:59 Glucose (Dextrose 40% Gel 15 Gm Tube) 0 gm PO PRN PRN PRN Reason: Hypoglycemia Stop: 11/01/24 06:42 Glucose (Dextrose 40% Gel 15 Gm Tube) 0 gm PO PRN PRN PRN Reason: Hypoglycemia Stop: 11/02/24 07:41 Hydromorphone HCl (Hydromorphone 0.5 Mg/0.5 Ml Syringe) 0.5 mg IV-PUSH Q4H PRN PRN Reason: Pain Scale 8 - 10 Insulin Aspart (Insulin Aspart 300 Units/3 Ml Insuln.Pen) 0 units SUBCUT TID..[facility]; Protocol Stop: 11/02/24 07:59 Levothyroxine Sodium (Levothyroxine 75 Mcg Tablet) 75 mcg PO DAILY@0630 [facility] Stop: 11/03/24 06:29 Melatonin (Melatonin 5 Mg Tablet) 5 mg PO QHS PRN PRN Reason: Insomnia Stop: 11/01/24 05:24 Metoprolol Succinate (Metoprolol Succinate 25 Mg Tab.Er.24h) 25 mg PO DAILY [facility] Stop: 11/02/24 08:59 Non-Formulary Medication (Calcium Acetate(Phosphat Bind)) 1,334 mg PO TIDWMEAL [facility] Stop: 11/02/24 07:44 Ondansetron HCl (Ondansetron 4 Mg/2 Ml Vial) 4 mg IV-PUSH Q8H PRN PRN Reason: Nausea And Vomiting Stop: 11/01/24 05:24 Pantoprazole Sodium (Pantoprazole 40 Mg Vial) 40 mg IV-PUSH BID DELFIN Stop: 11/01/24 08:59 Last Admin: 11/02/23 20:42 Dose: 40 mg Sodium Chloride (Sodium Chloride 0.9 % 10 Ml Vial.Pf) 10 ml INJECTION PRN PRN PRN Reason: Dilution Stop: 11/01/24 05:11 Last Admin: 11/02/23 20:42 Dose: 10 ml Sodium Chloride (Sodium Chloride 0.9 % 10 Ml Syringe) 10 ml IV-PUSH PRN PRN PRN Reason: Flush Stop: 11/01/24 05:11 Venlafaxine HCl (Venlafaxine 37.5 Mg Tablet) 37.5 mg PO BID DELFIN Stop: 11/02/24 08:59 Allergies penicillin G Allergy (Unknown, Verified 10/22/23 01:36) Nausea sulfamethoxazole [From Bactrim] Allergy (Unknown, Verified 10/22/23 01:36) Nausea trimethoprim [From Bactrim] Allergy (Unknown, Verified 10/22/23 01:36) Nausea Penicillins Allergy (Verified 10/22/23 01:36) Hives Results - Nephrology Labs 11/03/23 04:25 11/03/23 04:25 Labs: 11/02/23 11/02/23 11/02/23 07:46 07:46 07:46 BUN 51 H Creatinine 5.09 H Iron Saturation TNP Cancelled Ferritin 909.6 H Cancelled 11/03/23 04:25 BUN 64 H Creatinine 5.42 H Iron Saturation Ferritin Radiology Impressions Impressions - last 24 hours: [...] with severe metabolic acidosis requiring urgent dialysis this was started on October 22, 2023. (2) Acute blood loss anemia: Plan: Patient has anemia in setting of chronic kidney disease. Hemoglobin was runningbetween 7 and 8 g/dL. Hemoglobin did drop yesterday down to 6 g/dL with stool positive for her blood however he has no active bleeding. Patient has a chronicthrombocytopenia of unclear etiology. He is on aspirin however he does not takeblood thinner medications. Patient had 2 units of packed RBCs before admission (3) Uropathy, obstructive: Plan: He is known to have BPH and left renal hydronephrosis s/p nephrostomy 2021 (4) Type 2 diabetes mellitus with diabetic chronic kidney disease: Plan: Patient has longstanding history of diabetes with diabetic complications. (5) Volume overload: Plan: Bilateral lower extremity edema shortness of breath with volume overload in the setting of CKD (6) Hyperparathyroidism, secondary renal: Plan: Patient has hyperphosphatemia and elevated intact PTH 498 pg/mL in the setting of advanced CKD. Plan * HD today as last HD was on . Patient will get dialysis with no heparin since he has chronic thrombocytopenia and currently low hemoglobin with possible active GI bleeding. * Continue calcium acetate 1300 mg with each meal for hyperphosphatemia * Continue calcitriol 0.25 mcg 3 times a week for secondary hyperparathyroidism. * Patient was started on Aranesp 60 mcg weekly with dialysis. Will check iron stores again and replete with IV iron as indicated. Last ferritin was more than 1000 however he has borderline low iron saturation. * Check renal function and monitor CBC. Documented By: Devaughn Lucio MD 11/03/23 0800 Signed By: <Electronically signed by Devaughn Lucio MD> 11/03/23 1232 [facility] Work Phone: 1(495) 162-263207-22-2024 History and physical note Author Rubi Adam [facility] November 03, 2023 9:24am Note Date/Time November 03, 2023 9:25 am [facility] [address] [place] [address] Gastroenterology H&P Signed Patient: Matt Honeycutt MR#: [id number] : 1950 Acct:[id number] Age/Sex: 73 / M Adm Date: 4 Loc: 4P Room: [address] [place] [address] Type: ADM IN Attending Dr: Krysta Singer MD Copies to: NON STAFF DO Krysta Dias MD~ Date of Service: 11/03/2023 HISTORY & PHYSICAL: Patient's history with special attention to the cardiovascular, pulmonary systems and the current problem was reviewed with the patient immediately prior to the procedure. Present medications and doses reviewed in the EMR. Allergies and pertinent laboratory tests were also reviewedat this time in the EMR. The physical examination, as below, was then performed. Indication, assessment and HPI: 73-year-old male who presents for EGD for acute on chronic anemia, fecal occult blood positive. Family history of GI malignancy? No PHYSICAL EXAMINATION General appearance: cooperative, NAD Skin: No jaundice, no rash or lesions Head: NCAT Eyes: Anicteric Neck: Supple Lungs: Normal respiratory effort, no use of accessory muscles Abdomen: Soft, nondistended Neuro: No focal deficits, Ox3. REVIEW OF SYSTEMS Constitutional: Denies malaise, fevers Cardiovascular: Denies chest pain, palpitations Respiratory: Denies shortness of breath, wheezing Gastrointestinal: As per HPI Genitourinary: Denies dysuria, polyuria Musculoskeletal: Denies joint swelling, joint stiffness Neurological: Denies confusion, numbness, tingling Endocrine: Denies fatigue Written informed consent obtained from the patient. Risks (including but not limited to perforation, infection, bloating, bleeding, need for emergent surgeryand loss of life), benefits and alternatives explained and questions answered. The patient verbalized understanding. Based on history patient is an appropriate candidate for the procedure. Rubi Adam DO Documented By: Rubi Adam DO 11/03/23923 Signed By: <Electronically signed by Rubi Adam DO> 11/03/23923 [facility] Work Phone: 1(565) 994-342807-22-2024 [facility] Progress note Author Krysta Singer [facility] November 03, 2023 7:42am Note Date/Time November 03, 2023 7:42 am [facility] [address] [place] [address] Hospitalist Progress Note Signed Patient: Matt Honeycutt MR#: [id number] : 1950 Acct:[id number] Age/Sex: 73 / M Adm Date: 4 Loc: 4P Room: [address] [place] [address] Type: ADM IN Attending Dr: Krysta Singer MD Copies to: ~ Date of Service: 11/03/2023 Subjective Subjective Narrative: On examination patient resting comfortably laying flat with no signs of respiratory distress on room air. He denies abdominal pain, chest pain or shortness of breath with no overnight event. Appreciate GI and nephrology consultations. As per GI consultation there is consideration for EGD today. Patient did receive 2 units packed RBC at outside facility as per H&P. Exam Physical Exam Vital Signs: Temp Pulse Resp BP Pulse Ox O2 Del Method 98.0 F 59 L 18 122/59 L 96 Room Air 11/03/23 00:00 11/03/23 04:00 11/03/23 04:00 11/03/23 04:00 11/03/23 04:00 11/02/23 20:00 Const General: cooperative Other: Sleeping but once awake he is oriented and answering appropriately. Resp Effort & Inspection: normal respiratory effort and able to speak in complete sentences Auscultation: diminished lung sounds ( Due to body habitus) bilaterally, no rales, no rhonchi and no wheezes Cardio Rate: regular rate Rhythm: regular rhythm Heart Sounds: S1 normal and S2 normal GI Palpation: soft, not firm, no guarding and nontender Neuro General: patient awake, moves all extremities and no focal motor deficits Extrem General: no calf tenderness and edema Laterality: bilaterally Severity: 2+ Objective Lab Results 11/03/23 04:25 11/03/23 04:25 Meds Allergies and Active Meds Allergies penicillin G Allergy (Unknown, Verified 10/22/23 01:36) Nausea sulfamethoxazole [From Bactrim] Allergy (Unknown, Verified 10/22/23 01:36) Nausea trimethoprim [From Bactrim] Allergy (Unknown, Verified 10/22/23 01:36) Nausea Penicillins Allergy (Verified 10/22/23 01:36) Hives Active Meds: Active Medications Generic Name Dose Route Start Last Admin Trade Name Freq PRN Reason Stop Dose Admin Acetaminophen 650 mg 11/02/23 05:25 Acetaminophen 325 Mg Tablet PO 11/01/24 05:24 Q6HR PRN Pain Scale 1 - 3 or fever Dextrose 0 gm 11/02/23 06:43 Dextrose 50% In Water 25 Gm/50 Ml Syringe IV-PUSH 11/01/24 06:42 PRN PRN Hypoglycemia Glucose 0 gm 11/02/23 06:43 Dextrose 40% Gel 15 Gm Tube PO 11/01/24 06:42 PRN PRN Hypoglycemia Hydromorphone HCl 0.5 mg 11/02/23 05:25 Hydromorphone 0.5 Mg/0.5 Ml Syringe IV-PUSH Q4H PRN Pain Scale 8 - 10 Melatonin 5 mg 11/02/23 05:25 Melatonin 5 Mg Tablet PO 11/01/24 05:24 QHS PRN Insomnia Ondansetron HCl 4 mg 11/02/23 05:25 Ondansetron 4 Mg/2 Ml Vial IV-PUSH 11/01/24 05:24 Q8H PRN Nausea And Vomiting Pantoprazole Sodium 40 mg 11/02/23 09:00 11/02/23 20:42 Pantoprazole 40 Mg Vial IV-PUSH 11/01/24 08:59 40 mg BID DELFIN Administration Sodium Chloride 10 ml 11/02/23 05:12 11/02/23 20:42 Sodium Chloride 0.9 % 10 Ml Vial.Pf INJECTION 11/01/24 05:11 10 ml PRN PRN Administration Dilution Sodium Chloride 10 ml 11/02/23 05:12 Sodium Chloride 0.9 % 10 Ml Syringe IV-PUSH 11/01/24 05:11 PRN PRN Flush A&P - Hospitalist Assessment/Plan (1) Positive fecal occult blood test: (2) Acute blood loss anemia: (3) Diabetes: (4) Hypertension: (5) ESRD (end stage renal disease): (6) Cardiac aneurysm: (7) Acute GI bleeding: Plan Positive fecal occult blood test/ acute blood loss anemia/GI bleed Patient was recently discharged in the hospital after prolonged stay due to renal failure requiring hemodialysis. He underwent tunneled dialysis catheter with removal of temporary catheter on his previous admission. Again brought back to the emergency room at outside facility due to concern for GI bleed. He was found to have low hemoglobin received 2 units packed RBC. Hemoglobin has been stable since yesterday with no further drop or signs of active bleeding. Appreciate GI consultation and awaiting their final decision regarding endoscopic evaluation. Continue to hold aspirin. Continue IV PPI. Diabetes melitis Continue sliding scale coverage. Blood glucose well-controlled. ESRD Right IJ tunneled dialysis catheter in place. Nephrology has been consulted for management of end-stage renal disease on hemodialysis. SCDs for DVT prophylaxis. Documented By: Krysta Singer MD 11/03/23 0735 Signed By: <Electronically signed by Krysta Singer MD> 11/03/23 0742 [facility] Work Phone: 1(207) 856-357307-21-2024 Consult note Author Norma Lopez [facility] November 02, 2023 1:34pm Note Date/Time November 02, 2023 11:2 2am [facility] [address] [place] [address] Nephrology Consult Note Signed Patient: Matt Honeycutt MR#: [id number] : 1950 Acct:[id number] Age/Sex: 73 / M Adm Date: 4 Loc: Room: [address] [place] [address] Type: ADM IN Attending Dr: Krysta Singer MD Copies to: NON STAFF MD Krysta Olivares MD~ Providers Consult Date: 11/02/23 Requesting Provider: Krysta Singer MD Primary Care Provider: NON STAFF HPI Reason for Consult: Management of ESRD and dialysis during hospital stay History of Present Illness: Mr. Honeycutt is 73-year-old white gentleman who was recently discharged from the hospital on 11/01/2023 after admission for progressive CKD stage V with uremic symptoms with BUN 193 and creatinine 10 mg/dL. Patient has multiple medical problems including DM2, HTN, CAD, paraplegia requiring chronic indwelling Wooten catheter. He also has obstructive uropathy with bilateral ureteral stent with creatinine around 6 mg/dL since 2022 in the setting of obstructive uropathy. Patient had tunneled hemodialysis catheter before discharge. Hemoglobin did drop during hospital stay. Ferritin was more than 1000. Patient was started onerythropoietin. He was discharged with hemoglobin 7.6 g/dL. Outpatient dialysis was set at [facility] dialysis unit on MWF schedule as he has [facility]. Patient apparently went to outside hospital ER for pallor and fatigability and he is found to have hemoglobin 6 g/dL with positive stool for blood however there is no darren bleeding. He is on long-term baby aspirin however he does nottake any other blood thinners. He is on oral PPI. Patient did get 2 units of packed RBCs transfusion and [facility]. Nephrology was consulted for management of ESRD and dialysis. Patient is being seen and examined he is room. He is awake with no shortness ofbreath. Blood pressure stable 138/66. Pulse ox 96% on room air. He continues to have significant edema despite ultrafiltration with dialysis. He has Wooten catheter with minimal urine output. Hemoglobin today 7.9 g/dL after reported 2 units of packed RBCs before admission. Patient was seen by GI and he will be set up for EGD per anesthesia reviewing his chart for risk assessment. Patient denies any nausea or vomiting. No hematemesis or melena. No chest pain. No shortness of breath. He has Wooten catheter with no urinary symptoms. He has minimal urine output. Review of Systems Review of Systems All other systems reviewed & are negative unless noted below or in HPI [facility] Medical History Morbid obesity Problem List clean-up per request [...] clean-up per request of Phys. EHR Cmte CANTWELL (hard of hearing) Problem List clean-up per [...] List clean-up [facility] Mother Cancer Father Emphysema of lung Father Mother Social History Smoking Status: Former smoker Tobacco [...] Of Breath Or Wheezing 06/02/19 [History Confirmed 11/02/23] aspirin 81 mg chewable tablet 81 mg PO DAILY 06/02/19 [History Confirmed 11/02/23] atorvastatin 80 mg tablet 80 mg PO DAILY 06/02/19 [History Confirmed 11/02/23] ferrous sulfate 325 mg (65 mg iron) tablet 325 mg PO DAILY 06/02/19 [History Confirmed 11/02/23] finasteride 5 mg tablet 5 mg PO DAILY 06/02/19 [History Confirmed 11/02/23] insulin glargine 100 unit/mL subcutaneous solution 12 unit subcut QHS 06/02/19 [History Confirmed 10/22/23] levothyroxine 75 mcg tablet 75 mcg PO DAILY 06/02/19 [History Confirmed 11/02/23] loratadine 10 mg tablet 10 mg PO Q48HR PRN Allergy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 October 27, 2023 1:16pm Note Date/Time October 27, 2023 1:16 pm [facility] [address] [place] [address] Nephrology Progress Note Signed Patient: Matt Honeycutt MR#: [id number] : 1950 Acct:[id number] Age/Sex: 73 / M Adm Date: 4 Loc: Room: [address] [place] [address] Type: ADM IN Attending Dr: Krysta Singer [...] tunneled hemodialysiscatheter and then was referred to [facility] [place] for [facility]omy. He presentedto [facility] on October 18 with progressive shortness of breath, weakness and lethargy and he was found to have SHAWN on top of CKD stage V with doubling of serum creatinine up to 10 mg/dL and BUN 193 mg/dL. Patient was supposed to be transferred to [facility] however there is no bed. He has been 31-hour at [facility] and subsequently he was transferred to [facility] for assessment and management. 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 All of a sudden he developed uremic [...] 81 Mg Tab.Chew) 81 mg PO DAILY [facility] Stop: 10/23/24 08:59 Last Admin: 10/27/23 08:24 Dose: 81 mg Atorvastatin Calcium (Atorvastatin 80 Mg Tablet) 80 mg PO DAILY [facility] Stop: 10/23/24 08:59 Last Admin: 10/27/23 08:23 Dose: 80 mg Docusate Sodium (Docusate 100 Mg Capsule) 100 mg PO BID [facility] Stop: 10/22/24 20:59 Last Admin: 10/27/23 08:24 Dose: 100 mg Ferrous Sulfate (Ferrous Sulfate 324 Mg Tablet.Dr) 324 mg PO DAILY [facility] Stop: 10/23/24 08:59 Last Admin: 10/27/23 08:24 Dose: 324 mg Finasteride (Finasteride 5 Mg Tablet) 5 mg PO DAILY [facility] Stop: 10/23/24 08:59 Last Admin: 10/27/23 08:25 Dose: 5 mg Fluticasone Propionate (Fluticasone Propionate 44 120 Puff/10.6 Gm Inhaler) 1 puff INHALATION BID [facility] Stop: 10/22/24 20:59 Last Admin: 10/27/23 05:38 Dose: 1 puff Furosemide (Furosemide 80 Mg Tablet) 80 mg PO BID@0800,1600 [facility] Stop: 10/23/24 15:59 Last Admin: 10/27/23 08:24 Dose: 80 mg Heparin Sodium (Porcine) (Heparin 5,000 Unit/Ml Vial) 5,000 unit SUBCUT Q8HR [facility] Stop: 10/21/24 05:59 Last Admin: 10/27/23 06:19 [...] Units/3 Ml Insuln.Pen) 0 units SUBCUT TID.WM.HS [facility]; Protocol Stop: 10/21/24 07:59 Last Admin: 10/27/23 11:50 Dose: Not Given Insulin Glargine (Insulin Glargine 300 Units/3 Ml Insuln.Pen) 12 units SUBCUT QHS [facility] Stop: 10/22/24 21:59 Last Admin: 10/26/23 21:47 Dose: 12 units Levothyroxine Sodium (Levothyroxine 75 Mcg Tablet) 75 mcg PO DAILY@0630 [facility] Stop: 10/23/24 06:29 Last Admin: 10/27/23 07:41 Dose: Not Given Lidocaine HCl (Lidocaine 1% 50 Ml Vial) 0.1 ml INTRADERMA PREOP PRN PRN Reason: Venipuncture x 1 Dose Loratadine (Loratadine 10 Mg Tablet) 10 mg PO Q48HR PRN PRN Reason: Allergy Symptoms Stop: 10/22/24 13:41 Magnesium Oxide (Magnesium Oxide 400 Mg Tablet) 400 mg PO DAILY [facility] Stop: 10/21/24 14:59 Last Admin: 10/27/23 08:23 Dose: 400 mg Metoprolol Succinate (Metoprolol Succinate 25 Mg Tab.Er.24h) 12.5 mg PO DAILY [facility] Stop: 10/21/24 14:59 Last Admin: 10/27/23 08:24 Dose: 12.5 mg Multi-Ingredient Cream (Lanolin Alcohol/Mo/W.Pet/[place] (Minerin) 454 Gm Jar) 1 applic TOPICAL DAILY [facility] Stop: 10/23/24 08:59 Last Admin: 10/27/23 08:26 Dose: 1 applic Nitroglycerin (Nitroglycerin 0.4 Mg Tab.Subl) 0.4 mg SUBLINGUAL Q5M PRN PRN Reason: Chest Pain Stop: 10/22/24 13:41 Pantoprazole Sodium (Pantoprazole 40 Mg Tablet.Dr) 40 mg PO DAILY [facility] Stop: 10/23/24 08:59 Last Admin: 10/27/23 08:25 Dose: 40 mg Polyethylene Glycol (Polyethylene Glycol 3350 17 Gm Powd.Pack) 17 gm PO BID [facility] Stop: 10/22/24 20:59 Last Admin: 10/27/23 08:25 [...] 2 Mg Cap.Er.24h) 2 mg PO DAILY [facility] Stop: 10/23/24 08:59 Last Admin: 10/27/23 08:24 Dose: 2 mg Triamcinolone Acetonide (Triamcinolone 0.5% Cream 15 Gm Tube) 1 applic TOPICAL BID [facility] Stop: 10/22/24 20:59 Last Admin: 10/27/23 08:27 [...] Hyperparathyroidism * Outpatient is being arranged at [facility] dialysis unit considering his [employer] insurance. Patient will be ready to be discharged after securing outpatient dialysis unit and he have tunneled hemodialysis catheter done. He will follow-up with a boat camp operator in [place] area. Patient and daughter are interested in home hemodialysis that can be discussed with his boat camp operator in [place]. Urology was consulted for persistent hydronephrosis and [...] <Electronically signed by MD Norma Lopez> 10/27/23 7403 [facility] Work Phone: 1([phone]) 519-520907-15-2024 Progress note Author Krysta Singer [facility] October 27, 2023 10:23am Note Date/Time October 27, 2023 10:1 4am [facility] [address] [place] [address] Hospitalist Progress Note Signed Patient: Matt Honeycutt MR#: [id number] : 1950 Acct:[id number] Age/Sex: 73 / M Adm Date: 4 Loc: Room: [address] [place] [address] Type: ADM IN Attending Dr: Krysta Singer [...] telemetry last night. Patient was transferred from [facility] 10/21 for weakness, lethargy and SHAWN on [...] 09:00 10/27/23 08:24 Ferrous Sulfate 324 Mg Tablet.Dr PO 10/23/24 08:59 324 mg DAILY [facility] [...] Insuln.Pen SUBCUT 10/21/24 07:59 Not Given TID.WM.HS [facility] Protocol Insulin Glargine 12 units 10/23/23 22:00 [...] 1 applic 10/24/23 09:00 10/27/23 08:26 Lanolin Alcohol/Mo/W.Pet/[place] (Minerin) 454 Gm Jar TOPICAL 10/23/24 08:59 [...] <Electronically signed by Krysta Singer MD> 10/27/23 1023 [facility] Work Phone: 1([phone] 444-674307-14-2024 Progress [facility] October 26, 2023 12:23pm Note Date/Time October 26, 2023 12:2 3pm [facility] [address] [place] [address] Nephrology Progress Note Signed Patient: Matt Honeycutt MR#: [id number] : 1950 Acct:[id number] Age/Sex: 73 / M Adm Date: 4 Loc: Room: [address] [place] [address] Type: ADM IN Attending Dr: Dionicio Donald [...] tunneled hemodialysiscatheter and then was referred to [facility] [place] for [facility]omy. He presentedto [facility] on October 18 with progressive shortness of breath, weakness and lethargy and he was found to have SHAWN on top of CKD stage V with doubling of serum creatinine up to 10 mg/dL and BUN 193 mg/dL. Patient was supposed to be transferred to [facility] however there is no bed. He has been 31-hour at [facility] and subsequently he was transferred to [facility] for assessment and management. 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 All of a sudden he developed uremic symptoms. Patient and daughter agreed to proceed with dialysis. Interval history: Patient still boarding in the ICU as there is no available bed outside. He is sleeping with no reported complaints. He is breathing comfortably on 3 L/min nasal cannula with pulse ox 100% He had 3 hemodialysis treatments [id number] with improvement of uremia and acidosis. Edema [...] [facility] Stop: 10/23/24 08:59 Last Admin: 10/26/23 09:03 Dose: 81 mg Atorvastatin Calcium (Atorvastatin 80 Mg Tablet) 80 mg PO DAILY [facility] Stop: 10/23/24 08:59 Last Admin: 10/26/23 09:03 Dose: 80 mg Carvedilol (Carvedilol 12.5 Mg Tablet) 12.5 mg PO BID.WITH.MEALS [facility] Stop: 10/22/24 16:59 Last Admin: 10/26/23 09:03 Dose: 12.5 mg Docusate Sodium (Docusate 100 Mg Capsule) 100 mg PO BID [facility] Stop: 10/22/24 20:59 Last Admin: 10/26/23 09:04 [...] 80 Mg Tablet) 80 mg PO BID@0800,1600 [facility] Stop: 10/23/24 15:59 Last Admin: 10/26/23 09:03 Dose: 80 mg Heparin Sodium (Porcine) (Heparin 5,000 Unit/Ml Vial) 5,000 unit SUBCUT Q8HR [facility] Stop: 10/21/24 05:59 Last Admin: 10/26/23 06:34 [...] 300 Units/3 Ml Insuln.Pen) 0 units SUBCUT TID.WM.[facility]; Protocol Stop: 10/21/24 07:59 Last Admin: 10/26/23 09:02 Dose: Not Given Insulin Glargine (Insulin Glargine 300 Units/3 Ml Insuln.Pen) 12 units SUBCUT QHS [facility] Stop: 10/22/24 21:59 Last Admin: 10/25/23 21:50 Dose: 12 units Levothyroxine Sodium (Levothyroxine 75 Mcg Tablet) 75 mcg PO DAILY@0630 [facility] Stop: 10/23/24 06:29 Last Admin: 10/26/23 09:03 Dose: 75 mcg Lidocaine HCl (Lidocaine 1% 50 Ml Vial) 0.1 ml INTRADERMA PREOP PRN PRN Reason: Venipuncture x 1 Dose Loratadine (Loratadine 10 Mg Tablet) 10 mg PO Q48HR PRN PRN Reason: Allergy Symptoms Stop: 10/22/24 13:41 Magnesium Oxide (Magnesium Oxide 400 Mg Tablet) 400 mg PO DAILY [facility] Stop: 10/21/24 14:59 Last Admin: 10/26/23 09:04 Dose: 400 mg Metoprolol Succinate (Metoprolol Succinate 25 Mg Tab.Er.24h) 12.5 mg PO DAILY [facility] Stop: 10/21/24 14:59 Last Admin: 10/26/23 09:04 Dose: 12.5 mg Multi-Ingredient Cream (Lanolin Alcohol/Mo/W.Pet/[place] (Minerin) 454 Gm Jar) 1 applic TOPICAL DAILY [facility] Stop: 10/23/24 08:59 Last Admin: 10/26/23 10:05 Dose: 1 applic Nitroglycerin (Nitroglycerin 0.4 Mg Tab.Subl) 0.4 mg SUBLINGUAL Q5M PRN PRN Reason: Chest Pain Stop: 10/22/24 13:41 Pantoprazole Sodium (Pantoprazole 40 Mg Tablet.Dr) 40 mg PO DAILY [facility] Stop: 10/23/24 08:59 Last Admin: 10/26/23 09:05 Dose: 40 mg Polyethylene Glycol (Polyethylene Glycol 3350 17 Gm Powd.Pack) 17 gm PO BID [facility] Stop: 10/22/24 20:59 Last Admin: 10/26/23 09:05 [...] <Electronically signed by MD Norma Lopez> 10/26/23 1225 [facility] Work Phone: [phone] 254-953907-14-2024 Progress note Author Dionicio Donald [facility] October 26, 2023 10:46am Note Date/Time October 26, 2023 10:4 0am [facility] [address] [place] [address] Hospitalist Progress Note Signed Patient: Matt Honeycutt MR#: [id number] : 1950 Acct:[id number] Age/Sex: 73 / M Adm Date: 4 Loc: Room: [address] [place] [address] Type: ADM IN Attending Dr: Dionicio Donald MD Copies to: ~ Date of Service: 10/26/2023 Subjective Subjective Narrative: Patient is a 73-year-old male, was transferred to us from [facility]. Hepresented there about 2 days ago, complaining of weakness, lethargy. Evaluationrevealed presence of SHAWN on CKD stage IV-V. Arrangements were made for him to be transferred to [facility] but the bed was not available. Patient [...] 09:00 10/26/23 09:04 Ferrous Sulfate 324 Mg Tablet.Dr BARRY 10/23/24 08:59 324 mg DAILY [facility] Administration [...] Vial SUBCUT 10/21/24 05:59 5,000 unit Q8HR [facility] Administration Heparin Sodium (Porcine) 2,000 unit 10/22/23 [...] Insuln.Pen SUBCUT 10/21/24 07:59 Not Given TID.WM.HS [facility] Protocol Insulin Glargine 12 units 10/23/23 22:00 [...] 1 applic 10/24/23 09:00 10/26/23 10:05 Lanolin Alcohol/Mo/W.Pet/[place] (Minerin) 454 Gm Jar TOPICAL 10/23/24 08:59 [...] <Electronically signed by Dionicio Donald MD> 10/26/23 0492 [facility] Work Phone: [phone]) 773-553607-13-2024 Progress note Author Dionicio Donald [facility] October 25, 2023 12:15pm Note Date/Time October 24, 2023 11:0 7am [facility] [address] [place] [address] Hospitalist Progress Note Signed with iVjay Patient: Matt Honeycutt MR#: [id number] : 1950 Acct:[id number] Age/Sex: 73 / M Adm Date: 4 Loc: Room: [address] [place] [address] Type: ADM IN Attending Dr: Dionicio Donald [...] 73-year-old male, was transferred to us from [facility]. Hepresented there about 2 days ago, complaining of weakness, lethargy. Evaluationrevealed presence of SHAWN on CKD stage IV-V. Arrangements were made for him to be transferred to [facility] but the bed was not available. Patient [...] 81 Mg Tab.Chew PO 10/23/24 08:59 DAILY [facility] Atorvastatin Calcium 80 mg 10/24/23 09:00 Atorvastatin 80 Mg Tablet PO 10/23/24 08:59 DAILY [facility] Carvedilol 12.5 mg 10/23/23 17:00 10/24/23 08:16 Carvedilol 12.5 Mg Tablet PO 10/22/24 16:59 12.5 mg BID.WITH.MEALS [facility] Administration Docusate Sodium 100 mg 10/23/23 21:00 10/24/23 08:17 Docusate 100 Mg Capsule PO 10/22/24 20:59 Not Given BID [facility] Ferrous Sulfate 324 mg 10/24/23 09:00 Ferrous Sulfate 324 Mg Tablet. PO 10/23/24 08:59 DAILY [facility] Finasteride 5 mg 10/24/23 09:00 Finasteride 5 Mg Tablet PO 10/23/24 08:59 DAILY [facility] Fluconazole 1 each 10/23/23 15:11 Fluconazole - [...] Insuln.Pen SUBCUT 10/21/24 07:59 Not Given TID.WM.HS [facility] Protocol Insulin Glargine 12 units 10/23/23 22:00 [...] 10/23/23 13:42 Loratadine 10 Mg Tablet PO 07/11/25 13:41 Q48HR PRN Allergy Symptoms Magnesium Oxide 400 mg 10/22/23 15:00 10/23/23 15:26 Magnesium Oxide 400 Mg Tablet PO 10/21/24 14:59 400 mg DAILY [facility] Administration Metoprolol Succinate 12.5 mg 10/22/23 15:00 10/23/23 09:00 Metoprolol Succinate 25 Mg Tab.Er.24h PO 10/21/24 14:59 Not Given DAILY [facility] Multi-Ingredient Cream 1 applic 10/24/23 09:00 10/24/23 08:17 Lanolin Alcohol/Mo/W.Pet/[place] (Minerin) 454 Gm Jar TOPICAL 10/23/24 08:59 1 applic DAILY [facility] Administration Nitroglycerin 0.4 mg 10/23/23 13:42 Nitroglycerin 0.4 Mg Tab.Subl SUBLINGUAL 10/22/24 13:41 Q5M PRN Chest Pain Pantoprazole Sodium 40 mg 10/24/23 09:00 Pantoprazole 40 Mg Tablet. PO 10/23/24 08:59 DAILY [facility] Polyethylene Glycol 17 gm 10/23/23 21:00 10/24/23 [...] 2 Mg Cap.Er.24h PO 10/23/24 08:59 DAILY [facility] Triamcinolone Acetonide 1 applic 10/23/23 21:00 10/24/23 [...] Dionicio Donald MD> 10/24/23 1316 [facility] Work Phone: [phone] 942-514407-13-2024 Progress note Author Dionicio Donald [facility] October 25, 2023 12:14pm Note Date/Time October 25, 2023 12:1 4pm [facility] [address] [place] [address] Hospitalist Progress Note Signed Patient: Matt Honeycutt MR#: [id number] : 1950 Acct:[id number] Age/Sex: 73 / M Adm Date: 4 Loc: 4C Room: 0N6691-7 Type: ADM IN Attending Dr: Dionicio Donald MD Copies to: ~ Date of Service: 10/25/2023 Subjective Subjective Narrative: Patient is a 73-year-old male, was transferred to us from [facility]. Hepresented there about 2 days ago, complaining of weakness, lethargy. Evaluationrevealed presence of SHAWN on CKD stage IV-V. Arrangements were made for him to be transferred to [facility] but the bed was not available. Patient [...] Dose Route Start Last Admin Trade Name Kamron PRN Reason Stop Dose Admin Acetaminophen 650 [...] Insuln.Pen SUBCUT 10/21/24 07:59 Not Given TID.WM.HS [facility] Protocol Insulin Glargine 12 units 10/23/23 22:00 [...] 1 applic 10/24/23 09:00 10/25/23 09:55 Lanolin Alcohol/Mo/W.Pet/[place] (Minerin) 454 Gm Jar TOPICAL 10/23/24 08:59 [...] By: <Electronically signed by Dionicio Donald MD> 10/25/234 [facility] Work Phone: 1([phone] 595-677207-13-2024 Progress note Author Norma Lopez [facility] October 25, 2023 12:03pm Note Date/Time October 25, 2023 11:5 9am [facility] [address] [place] [address] Nephrology Progress Note Signed Patient: Matt Honeycutt MR#: [id number] : 1950 Acct:[id number] Age/Sex: 73 / M Adm Date: 4 Loc: Room: [address] [place] [address] Type: ADM IN Attending Dr: Dionicio Donald MD Copies to: ~ Date of Service: 10/25/2023 Subjective Subjective Narrative: Mr. Honeycutt is a 73-year-old male with medical history of CKD stage 5 with serum creatinine between 5 and 6 mg/dL since 2022 related to obstructive uropathy, DM,HTN, hypothyroidism, CAD, paraplegia requiring chronic indwelling catheter. Patient currently follow[facility]. He was seen by our service on August 2022 when he presented with SHAWN with creatinine 6 mg/dL in the setting of obstructive uropathy. He was started on hemodialysis with tunneled hemodialysiscatheter and then was referred to [facility] [place] for [facility]omy. He presented[facility] on October 18 with progressive shortness of breath, weakness and lethargy and he was found to have SHAWN on top of CKD stage V with doubling of serum creatinine up to 10 mg/dL and BUN 193 mg/dL. Patient was supposed to be transferred to [facility] however there is no bed. He has been 31-hour at [facility] and subsequently he was transferred to [facility] for assessment and management. 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 All of a sudden he developed uremic symptoms. Patient and daughter agreed to proceed with dialysis. Interval history: Patient still boarding in the ICU as there is no available bed outside. He had 3 hemodialysis treatments [id number] with improvement of uremia and acidosis. Edema [...] [facility] Stop: 10/23/24 08:59 Last Admin: 10/25/23 09:16 Dose: 81 mg Atorvastatin Calcium (Atorvastatin 80 Mg Tablet) 80 mg PO DAILY [facility] Stop: 10/23/24 08:59 Last Admin: 10/25/23 09:02 Dose: 80 mg Carvedilol (Carvedilol 12.5 Mg Tablet) 12.5 mg PO BID.WITH.MEALS [facility] Stop: 10/22/24 16:59 Last Admin: 10/25/23 09:02 Dose: 12.5 mg Docusate Sodium (Docusate 100 Mg Capsule) 100 mg PO BID [facility] Stop: 10/22/24 20:59 Last Admin: 10/25/23 09:07 Dose: 100 mg Ferrous Sulfate (Ferrous Sulfate 324 Mg Tablet.Dr) 324 mg PO DAILY [facility] Stop: 10/23/24 08:59 Last Admin: 10/25/23 09:02 Dose: 324 mg Finasteride (Finasteride 5 Mg Tablet) 5 mg PO DAILY [facility] Stop: 10/23/24 08:59 Last Admin: 10/25/23 09:14 Dose: 5 mg Fluconazole (Fluconazole - Pharmacy Dosing) 1 each IV ONCE PRN; Protocol PRN Reason: ZZ.Pharmacy Consult Fluticasone Propionate (Fluticasone Propionate 44 120 Puff/10.6 Gm Inhaler) 1 puff INHALATION BID [facility] Stop: 10/22/24 20:59 Last Admin: 10/25/23 07:51 Dose: 1 puff Furosemide (Furosemide 80 Mg Tablet) 80 mg PO BID@0800,1600 [facility] Stop: 10/23/24 15:59 Last Admin: 10/25/23 09:03 Dose: 80 mg Heparin Sodium (Porcine) (Heparin 5,000 Unit/Ml Vial) 5,000 unit SUBCUT Q8HR [facility] Stop: 10/21/24 05:59 Last Admin: 10/25/23 06:22 [...] 100 mls @ 200 mls/hr IV Q24H [facility] Last Admin: 10/24/23 16:44 Dose: 200 mls/hr Albumin Human (Albuminar-25) 25 gm in 100 mls @ 200 mls/hr IV PRN PRN PRN Reason: Dialysis Stop: 10/23/24 11:30 Last Admin: 10/24/23 12:41 Dose: 200 mls/hr Insulin Aspart (Insulin Aspart 300 Units/3 Ml Insuln.Pen) 0 units SUBCUT TID.WM.HS [facility]; Protocol Stop: 10/21/24 07:59 Last Admin: 10/25/23 08:00 Dose: Not Given Insulin Glargine (Insulin Glargine 300 Units/3 Ml Insuln.Pen) 12 units SUBCUT QHS [facility] Stop: 10/22/24 21:59 Last Admin: 10/24/23 21:40 Dose: 12 units Levothyroxine Sodium (Levothyroxine 75 Mcg Tablet) 75 mcg PO DAILY@0630 [facility] Stop: 10/23/24 06:29 Last Admin: 10/25/23 06:22 Dose: 75 mcg Lidocaine HCl (Lidocaine 1% 50 Ml Vial) 0.1 ml INTRADERMA PREOP PRN PRN Reason: Venipuncture x 1 Dose Loratadine (Loratadine 10 Mg Tablet) 10 mg PO Q48HR PRN PRN Reason: Allergy Symptoms Stop: 10/22/24 13:41 Magnesium Oxide (Magnesium Oxide 400 Mg Tablet) 400 mg PO DAILY [facility] Stop: 10/21/24 14:59 Last Admin: 10/25/23 09:03 Dose: 400 mg Metoprolol Succinate (Metoprolol Succinate 25 Mg Tab.Er.24h) 12.5 mg PO DAILY [facility] Stop: 10/21/24 14:59 Last Admin: 10/25/23 09:03 Dose: 12.5 mg Multi-Ingredient Cream (Lanolin Alcohol/Mo/W.Pet/[place] (Minerin) 454 Gm Jar) 1 applic TOPICAL DAILY [facility] Stop: 10/23/24 08:59 Last Admin: 10/25/23 09:55 Dose: 1 applic Nitroglycerin (Nitroglycerin 0.4 Mg Tab.Subl) 0.4 mg SUBLINGUAL Q5M PRN PRN Reason: Chest Pain Stop: 10/22/24 13:41 Pantoprazole Sodium (Pantoprazole 40 Mg Tablet.Dr) 40 mg PO DAILY [facility] Stop: 10/23/24 08:59 Last Admin: 10/25/23 09:14 Dose: 40 mg Polyethylene Glycol (Polyethylene Glycol 3350 17 Gm Powd.Pack) 17 gm PO BID [facility] Stop: 10/22/24 20:59 Last Admin: 10/24/23 21:40 [...] year Documented By: Norma Lopez MD 10/25/23 3211 Signed By: <Electronically signed by MD Norma Lopez> 10/25/23 7733 [facility] Work Phone: 1(892) 183-888307-12-2024 Progress note Author Norma Lopez [facility] October 24, 2023 12:55pm Note Date/Time October 24, 2023 12:5 5pm [facility] [address] [place] [address] Nephrology Progress Note Signed Patient: Matt Honeycutt MR#: [id number] : 1950 Acct:[id number] Age/Sex: 73 / M Adm Date: 4 Loc: Room: [address] [place] [address] Type: ADM IN Attending Dr: Dionicio Donald MD Copies to: ~ Date of Service: 10/24/2023 Subjective Subjective Narrative: Mr. Honeycutt is a 73-year-old male with medical history of CKD stage 5 with serum creatinine between 5 and 6 mg/dL since 2022 related to obstructive uropathy, DM,HTN, hypothyroidism, CAD, paraplegia requiring chronic indwelling catheter. Patient currently follow[facility]up [facility]. He was seen by our service on August 2022 when he presented with SHAWN with creatinine 6 mg/dL in the setting of obstructive uropathy. He was started on hemodialysis with tunneled hemodialysiscatheter and then was referred to [facility] [place] [facility]. He presentedto [facility] on October 18 with progressive shortness of breath, weakness and lethargy and he was found to have SHAWN on top of CKD stage V with doubling of serum creatinine up to 10 mg/dL and BUN 193 mg/dL. Patient was supposed to be transferred to [facility] however there is no bed. He has been 31-hour at [facility] and subsequently he was transferred to [facility] for assessment and management. 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 All of a sudden he developed uremic [...] 100 Mg Capsule) 100 mg PO BID [facility] Stop: 10/22/24 20:59 Last Admin: 10/24/23 08:17 [...] 100 mls @ 200 mls/hr IV Q24H [facility] Last Admin: 10/23/23 15:40 Dose: 200 mls/hr Amiodarone HCl 450 mg/ (Dextrose) 250 mls @ 16.667 mls/hr IV .Q15H [facility] Stop: 10/22/24 18:14 Last Admin: 10/24/23 10:42 [...] Units/3 Ml Insuln.Pen) 0 units SUBCUT TID.WM.HS [facility]; Protocol Stop: 10/21/24 07:59 Last Admin: 10/24/23 11:41 Dose: Not Given Insulin Glargine (Insulin Glargine 300 Units/3 Ml Insuln.Pen) 12 units SUBCUT QHS [facility] Stop: 10/22/24 21:59 Last Admin: 10/23/23 21:21 Dose: 12 units Levothyroxine Sodium (Levothyroxine 75 Mcg Tablet) 75 mcg PO DAILY@0630 [facility] Stop: 10/23/24 06:29 Last Admin: 10/24/23 06:11 Dose: 75 mcg Lidocaine HCl (Lidocaine 1% 50 Ml Vial) 0.1 ml INTRADERMA PREOP PRN PRN Reason: Venipuncture x 1 Dose Loratadine (Loratadine 10 Mg Tablet) 10 mg PO Q48HR PRN PRN Reason: Allergy Symptoms Stop: 10/22/24 13:41 Magnesium Oxide (Magnesium Oxide 400 Mg Tablet) 400 mg PO DAILY [facility] Stop: 10/21/24 14:59 Last Admin: 10/23/23 15:26 Dose: 400 mg Metoprolol Succinate (Metoprolol Succinate 25 Mg Tab.Er.24h) 12.5 mg PO DAILY [facility] Stop: 10/21/24 14:59 Last Admin: 10/23/23 09:00 Dose: Not Given Multi-Ingredient Cream (Lanolin Alcohol/Mo/W.Pet/[place] (Minerin) 454 Gm Jar) 1 applic TOPICAL DAILY [facility] Stop: 10/23/24 08:59 Last Admin: 10/24/23 08:17 Dose: 1 applic Nitroglycerin (Nitroglycerin 0.4 Mg Tab.Subl) 0.4 mg SUBLINGUAL Q5M PRN PRN Reason: Chest Pain Stop: 10/22/24 13:41 Pantoprazole Sodium (Pantoprazole 40 Mg Tablet.Dr) 40 mg PO DAILY [facility] Stop: 10/23/24 08:59 Polyethylene Glycol (Polyethylene Glycol [...] 2 Mg Cap.Er.24h) 2 mg PO DAILY [facility] Stop: 10/23/24 08:59 Triamcinolone Acetonide (Triamcinolone 0.5% Cream 15 Gm Tube) 1 applic TOPICAL BID [facility] Stop: 10/22/24 20:59 Last Admin: 10/24/23 08:18 Dose: Not Given Venlafaxine HCl (Venlafaxine 37.5 Mg Tablet) 37.5 mg PO BID [facility] Stop: 10/22/24 20:59 Last Admin: 10/24/23 08:18 Dose: 37.5 mg Vitamin D (Cholecalciferol 25 Mcg (1,000 Units) Tablet) 50 mcg PO DAILY [facility] Stop: 10/23/24 08:59 Zinc Oxide (Zinc Oxide [...] has VA insurance. He lives close to [place] dialysis unit. * Monitor daily intake, output and renal panel to adjust medications and dialysis prescription as indicated Urology was consulted for persistent hydronephrosis and bilateral ureteral stents, urology recommended to transfer to tertiary care center considering his comorbidities. Patient needs interventional radiologist is not available at [facility]. Originally the patient was supposed to go [facility] in [place] however there was no beds available. Documented By: Norma Lopez MD 10/24/23 1250 Signed By: <Electronically signed by MD Norma Lopez> 10/24/23 1255 [facility] Work Phone: 1(490) 953-713807-11-2024 Progress note Author W Artie [facility] October 23, 2023 5:55pm Note Date/Time October 23, 2023 5:55 pm [facility] [address] [place] [address] Cardiology Progress Note Signed Patient: Matt Honeycutt MR#: [id number] : 1950 Acct:[id number] Age/Sex: 73 / M Adm Date: 4 Loc: Room: [address] [place] [address] Type: ADM IN Attending Dr: Dionicio Donald MD Copies to: ~ Date of Service: 10/23/2023 Subjective Principal diagnosis: Ventricular tachycardia, acute on chronic renal failure Interval history: Mr. Honeycutt is a 73 year old male seen in interventional cardiology consultation at request of hospitalist and patient who was transferred from [place] with worsening renal failure, edema, seen by [...] Left bundle branch configuration. Upon review of [facility] EMR and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 Active Sta rt: October 22, 2023 End: October 31, 2023 Norma Lopez MD Other Provider Active Start: J 2023 End: October 31, 2023 Tres Young [...] Active Member Role Status Dates Barak Pro ([facility]) , [facility] [address] Primary Care Provider Active Start: October 22, [...] Role Status Dates Barak Pro (Clinic) , [facility] Primary Care Provider Active Start: October 22, [...] Lemus MD Other Provider Active Start: J 2023 Rashaun Dinero MD Other Provider Active Start: October 22, 2023 Mehdi Sneed MD Other Provider Active Start: J 2023 Stefanie Pastrana , [facility]- Other Provider Active Sta rt: October 22, 2023 Team Status: Active Member Role Status Dates Barak Pro (Clinic) , [facility] Primary Care Provider Active Start: October 29, [...] Role Status Dates Barak Pro (Clinic) , [facility] Primary Care Provider Active Start: October 30, 2023 Marky Dempsey MD Admit Provider Active Start: October 30, 2023 Krysta Singer MD Other Provider Active Start: October 30, 2023 Norma Lopez MD Other Provider Active Start: 2023 Tres Young DO Attending Provider, Other Provider Active Start: October 30, 2023 Coleen Mason APRN Other Provider Active Start: October 30, 2023 Araseli Sena DO Other Provider Active Sta rt: October 30, 2023 Luigi Borges MD Other Provider Active Start: October 30, 2023 Umang Yan MD Other Provider Active Start: October 30, 2023 Team Status: Active Member Role Status Dates NON STAFF Primary Care Provider Active Team Status: Inactive Member Role Status Dates Jose Luis Siddiqui DO Admit Provider Active Start: November 02, 2023 End: November 03, 2023 NON STAFF Primary Care Provider Active Start: November 02, 2023 End: November 03, 2023 Krysta Singer MD Attending Provider Active Sta rt: November 02, 2023 End: November 03, 2023 Rubi Adam , DO Other Provider Active Start: November 02, 2023 End: November 03, 2023 Norma Lopez MD Other Provider Active Start: J minnie 2023 End: November 03, 2023 Team Status: Active Member Role Status Dates Jose Luis Siddiqui DO Admit Provider Active Start: November 02, 2023 NON STAFF Primary Care Provider Active Start: November 02, 2023 Krysta Singer MD Other Provider Active Start: November 02, 2023 Rubi Adam , DO Attending Provider, Other Provider Active Start: November 02, 2023 Norma Lopez MD Other Provider Active Start: J minnie 2023 Team Status: Active Member Role Status Dates Jose Luis Siddiqui DO Admit Provider Active Start: November 02, 2023 NON STAFF Primary Care Provider Active Start: November 02, 2023 Krysta Singer MD Other Provider Active Start: November 02, 2023 Rubi Adam , DO Other Provider Active Start: November 02, 2023 Norma Lopez MD Attending Provider, Other Provider A ctive Start: November 02, 2023 Team Status: Inactive Member Role Status Dates NON STAFF Primary Care Provider Active Start: November 06, 2023 End: November 06, 2023 Mendel Young DO Emergency Provider Active Sta rt: November 06, 2023 End: November 06, 2023 FOR RECORDS PERTAINING TO PATIENTS WHO [...] BE BASED ON THE PRIMARY CLINICAL RECORDS. [employer] provides no warranty or guarantee of the accuracy or completeness of information in this document.
--- NOTE | 2023-11-10 10:45 | PC.NURSE ---
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
--- NOTE | 2023-11-10 10:47 | ED_ITS ---
HPI HPI - General Adult General Chief complaint: Extremity Problem, Nontraumatic Stated complaint: UPPER EXTREMITY PAIN Time Seen by Provider: 11/10/23 10:39 Source: family Mode of arrival: ambulance History of Present Illness HPI narrative: This patient is here with his family for deterioration of his condition. I reviewed some of his recent ER visits here. He does have chronic renal failure and is now undergoing hemodialysis. His last evaluation here showed him to have profound anemia and in need of dialysis. A bed at the [facility] was not available so they transferred him to [facility] for treatment there. His daughter who is the historian here says he received several blood transfusions. His last dialysis was on Friday, his next dialysis is scheduled for tomorrow. The daughter noticed that he now has redness pain and discomfort over his right biceps area that was not there 48 hours ago. He has dialysis catheter in his upper right chest. He is not on any antibiotics. The highest his temperature has been is 99 at home. His daughter states he has not been eating or drinking much. He still makes a limited amount of urine per Wooten catheter. He is awake and talking to his daughter and answer simple questions but appears acute on chronically ill. She said on his last dialysis they took only 88 cc of fluid off because he was hypotensive. Vital signs here show he is afebrile and his blood pressure is more stabilized. The daughter did arrive and was able to provide more information. Related Data Home Medications ?Medication ?Instructions ?Recorded ?Confirmed acetaminophen 325 mg capsule 975 mg PO TID PRN fever or pain 08/17/23 11/01/23 (Tylenol) albuterol 90 mcg/actuation aerosol 180 mcg inhalation QID PRN 08/17/23 11/01/23 inhaler shortness of breath or wheezing aspirin 81 mg tablet,delayed 81 mg PO DAILY 08/17/23 11/01/23 release (Adult Low Dose Aspirin) atorvastatin 80 mg tablet 80 mg PO .QHS 08/17/23 11/01/23 bacitracin zinc 500 unit/gram 1 applic topical DAILY PRN skin 08/17/23 11/01/23 topical ointment irritation calcitriol 0.25 mcg capsule 0.25 mcg PO .3 TIMES WEEK 08/17/23 11/01/23 clobetasol 0.05 % topical cream 1 applic topical BID 08/17/23 11/01/23 ferrous sulfate 325 mg (65 mg 325 mg PO .QOD 08/17/23 11/01/23 iron) tablet,delayed release finasteride 5 mg tablet 5 mg PO DAILY 08/17/23 11/01/23 guaifenesin 600 mg tablet, 600 mg PO BID PRN congestion 08/17/23 11/01/23 extended release 12 hr hydrophilic cream 1 applic topical BID 08/17/23 11/01/23 levothyroxine 75 mcg capsule 75 mcg PO QAM 08/17/23 11/01/23 loratadine 10 mg tablet (Allergy 10 mg PO .QOD 08/17/23 11/01/23 Relief (loratadine)) miconazole nitrate 2 % topical 1 applic topical DAILY PRN fungal 08/17/23 11/01/23 powder (Remedy Phytoplex Antifungal) multivitamin 1 tab PO DAILY 08/17/23 11/01/23 nitroglycerin 0.4 mg sublingual 0.4 mg sublingual Q5M PRN chest 08/17/23 11/01/23 tablet pain omeprazole 20 mg tablet,delayed 20 mg PO DAILY 08/17/23 11/01/23 release polyethylene glycol 3350 17 17 g PO DAILY PRN constipation 08/17/23 11/01/23 gram/dose oral powder (Miralax) potassium citrate-citric acid 30 ml PO DAILY 08/17/23 11/01/23 1,100 mg-334 mg/5 mL oral solution pramoxine 1 % lotion 1 applic topical TID PRN itching 08/17/23 11/01/23 semaglutide 2 mg/dose (8 mg/3 mL) 0.5 mg subcut QWEEK 08/17/23 11/01/23 subcutaneous pen injector (Ozempic) sennosides 8.6 mg capsule 8.6 mg PO DAILY PRN constipation 08/17/23 11/01/23 venlafaxine 37.5 mg 37.5 mg PO BID 08/17/23 11/01/23 capsule,extended release 24 hr wound dressings (Triad Wound 1 applic topical .COMPLEX 08/17/23 11/01/23 Dressing paste) zinc oxide 20 % topical ointment 1 applic topical DAILY PRN skin 08/17/23 11/01/23 irritation ixekizumab 80 mg/mL subcutaneous See Rx Instructions subcut .COMPLEX 09/11/23 10/15/23 syringe sodium chloride 0.65 % nasal spray 2 spray intranasal QID PRN dry 09/11/23 11/01/23 aerosol ([place] Saline) nasal passages triamcinolone acetonide 0.1 % 1 applic topical BID 09/11/23 11/01/23 topical ointment calcium acetate 667 mg tablet 667 mg PO TID 11/01/23 11/01/23 furosemide 80 mg tablet 80 mg PO BID 11/01/23 11/01/23 metoprolol succinate 25 mg 12.5 mg PO DAILY 11/01/23 11/01/23 tablet,extended release 24 hr Allergies Allergy/AdvReac Type Severity Reaction Status Date / Time Penicillins Allergy Mild Rash Verified 11/01/23 19:16 ferumoxides Allergy Rash Verified 11/01/23 19:16 sulfamethoxazole AdvReac Mild Nausea Verified 11/01/23 19:16 [From Sulfamethoxazole-Trimethoprim] trimethoprim AdvReac Mild Nausea Verified 11/01/23 19:16 [From Sulfamethoxazole-Trimethoprim] Opioid HPI Opioid Management Most Recent Opioid Data: Last Pain Scale 6 10/20/23 15:01 Last ORT Total Score 0 10/14/23 22:27 Last ORT Risk Category Low Risk 10/14/23 22:27 PFSH PFS Medical History (Updated 11/10/23 @ 15:48 by Kristofer Garza MD) Bacteremia due to Pseudomonas ?R78.81 - Bacteremia (ICD-10) ?B96.5 - Pseudomonas (aeruginosa) (mallei) (pseudomallei) as the cause of diseases classified elsewhere (ICD-10) Urinary tract infection ?N39.0 - Urinary tract infection, site not specified (ICD-10) Accidental fall from bed ?W06.XXXA - Fall from bed, initial encounter (ICD-10) Contusion of left shoulder ?S40.012A - Contusion of left shoulder, initial encounter (ICD-10) Contusion of knee, left ?S80.02XA - Contusion of left knee, initial encounter (ICD-10) Contusion of back ?S20.229A - Contusion of unspecified back wall of thorax, initial encounter (ICD-10) Thyroid nodule ?E04.1 - Nontoxic single thyroid nodule (ICD-10) Chronic renal disease ?N18.9 - Chronic kidney disease, unspecified (ICD-10) C. 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 - Other specified dermatitis (ICD-10) CAD (coronary artery disease) ?I25.10 - Atherosclerotic heart disease of [place] coronary artery without angina pectoris (ICD-10) T2DM (type 2 diabetes mellitus) ?E11.9 - Type 2 diabetes mellitus without complications (ICD-10) Hypothyroid ?E03.9 - Hypothyroidism, unspecified (ICD-10) HLD (hyperlipidemia) ?E78.5 - Hyperlipidemia, unspecified (ICD-10) HTN (hypertension) ?I10 - Essential (primary) hypertension (ICD-10) Anemia in CKD (chronic kidney disease) ?N18.9 - Chronic kidney disease, unspecified (ICD-10) ?D63.1 - Anemia in chronic kidney disease (ICD-10) Chronic indwelling Wooten catheter ?Z97.8 - Presence of other specified devices (ICD-10) Paraplegia ?G82.20 - Paraplegia, unspecified (ICD-10) Bedbound ?Z74.01 - Bed confinement status (ICD-10) H/O: CVA (cerebrovascular accident) ?Z86.73 - Personal history of transient ischemic attack (TIA), and cerebral infarction without residual deficits (ICD-10) CKD (chronic kidney disease) stage 5, GFR less than 15 ml/min ?N18.5 - Chronic kidney disease, stage 5 (ICD-10) Surgical History (Updated 09/11/23 @ 03:19 by Bethany Amor) H/O heart artery stent ?Z95.5 - Presence of coronary angioplasty implant and graft (ICD-10) Social History Within the past year, how often did you have a drink containing alcohol: never Score interpretation: A score less than 4 is consistent with normal alcohol consumption. Smoking status: Former smoker Non-prescribed substance use: denies use Highest level of school completed/degree received: Associate degree: occupational, technical, vocational program Are you now , , , , never or living with a partner: don't know In a typical week, how many times do you talk on the telephone with family, friends, or neighbors: never How often do you get together with friends or relatives: never How often do you attend bahai or buddhist services: never Little interest or pleasure in doing things: not at all Feeling down, depressed, or hopeless: not at all Do you think of yourself as: straight/heterosexual Gender Identity: male Exam Narrative Exam Narrative: This patient appears acute on chronically ill. His blood pressure on arrival is stable. He opens his eyes and follow simple commands. Says that his right arm is tender. Does not seem to be confused, is not repeating himself. Oxygen saturation is stable and there is no labored respiratory effort. He is morbidly obese. There is profound peripheral edema in the extremities. Specifically both legs have 4+ pitting edema there is no weeping exudate at this time there is no evidence of cellulitis. The daughter states that they actually do not look as bad as what they have been previously. The skin is pale and anemic in appearance with no scleral icterus or jaundice. The right upper extremity has a ropey tender erythematous area in the area of the basilic vein extending to the shoulder area. There are good pulses to that extremity. The left upper extremity has a good pulse. The patient's abdomen is obese but he does not seem to be having any specific pain or discomfort. Lungs have some scattered rhonchi but no labored respiratory effort and oximetry is stable. Constitutional Vital Signs, click to edit/add: Last Vital Signs Temp 98.2 F 11/10/23 10:24 Pulse 88 11/10/23 10:24 Resp 16 11/10/23 10:24 BP 112/86 11/10/23 15:10 Pulse Ox 96 11/10/23 15:20 O2 Del Method Room Air 11/10/23 12:37 Course Vital Signs Vital signs: Vital Signs Blood Pressure 114/49 11/10/23 10:20 Temperature 98.2 F 11/10/23 10:24 Pulse Rate 88 11/10/23 10:24 Respiratory Rate 16 11/10/23 10:24 Blood Pressure 112/86 11/10/23 15:10 Pulse Oximetry 96 11/10/23 15:20 Oxygen Delivery Method Room Air 11/10/23 12:37 Medical Decision Making MDM Narrative Medical decision making narrative: This patient has a multitude of chronic medical problems including acute renal failure and anemia he is scheduled to have dialysis tomorrow after having only 88 cc taken off on Friday. His hemoglobin is decreased again but I do not know what he was posttransfusion. An ultrasound was done of his upper extremity and shows extensive thrombus within the right superficial cephalic vein from the shoulder to the mid distal forearm. There is no evidence of DVT. Chest x-ray of limited value limited inspiratory effort but showed no evidence of pneumothorax or overt heart failure. Kidney function tests are chronically elevated again I have no recent value from his last dialysis that was initiated in [place]. We contacted the [facility] at the family's request at approximately 1:00 and as of the time of this dictation at 2905 they have not returned our car. We have given the family their choice of sending him back up to [facility] where he was at before or waiting further and they would prefer the patient be taken to [facility] at this time. I did give report laboratory testing was discussed and has been accepted by the hospitalist in [place] Lab Data Labs: Lab Results 11/10/23 Range/Units 10:38 WBC 8.5 (4.0-11.0) 10^3/uL RBC 2.57 L (4.70-6.10) 10^6/uL Hgb 7.4 L (14.0-18.0) g/dL Hct 23.2 L* (42.0-54.0) % MCV 90.3 (80.0-94.0) fL MCH 28.8 (25.9-34.0) pg MCHC 31.9 (29.9-35.2) g/dL RDW 14.8 (11.0-15.0) % Plt Count 103 L (150-450) 10^3/uL MPV 11.4 (9.5-13.5) fL Seg Neuts % (Manual) 89.0 H (43.0-75.0) Lymphocytes % (Manual) 5.0 L (20.5-60.0) % Monocytes % (Manual) 5.0 (1.7-12.0) % Eosinophils % (Manual) 0.0 L (0.9-7.0) % Basophils % (Manual) 1.0 (0.2-2.0) % Neutrophils # (Manual) 7.56 H (1.4-6.5) 10^3/uL Lymphocytes # (Manual) 0.42 L (1.20-3.80) 10^3/uL Monocytes # (Manual) 0.42 (0.30-0.80) 10^3/uL Eosinophils # (Manual) 0.00 (0.00-0.70) 10^3/uL Basophils # (Manual) 0.08 (0.00-0.10) 10^3/uL Hypochromasia 2+ Ovalocytes 1+ VBG pH 7.324 L (7.330-7.430) VBG pCO2 40.4 (40.0-52.0) mmHg Sodium 133 L (136-145) mmol/L Potassium 3.4 L (3.5-5.1) mmol/L Chloride 97 L (98-107) mmol/L Carbon Dioxide 22.1 (21.0-32.0) mmol/L Anion Gap 17.3 BUN 70.0 H (7.0-18.0) mg/dL Creatinine 5.77 H* (0.70-1.30) mg/dL Est GFR ( Amer) 12 L (>=60) Est GFR (Non-Af Amer) 10 L (>=60) BUN/Creatinine Ratio 12.1 Glucose 185 H (74-106) mg/dL Lactate 2.2 H* (0.4-2.0) mmol/L Calcium 9.5 (8.5-10.1) mg/dL Phosphorus 5.5 H (2.6-4.7) mg/dL Magnesium 1.8 (1.8-2.4) mg/dL Total Bilirubin 0.5 (0.2-1.0) mg/dL AST 19 (15-37) U/L ALT 11 L (16-63) U/L Alkaline Phosphatase 113 (46-116) U/L Troponin I High Sens 75.7 (4.0-76.1) pg/mL Total Protein 5.3 L (6.4-8.2) g/dL Albumin 1.6 L (3.4-5.0) g/dL Globulin 3.7 g/dL Albumin/Globulin Ratio 0.4 Discharge Plan Discharge Chief Complaint: Extremity Problem, Nontraumatic Clinical Impression: Renal failure (ARF), acute on chronic, Thrombosis of right upper extremity Patient Disposition: [facility] Time of Disposition Decision: 15:48 Condition: Serious Prescriptions / Home Meds: No Action triamcinolone acetonide 0.1 % ointment 1 applic topical BID [place] Saline 0.65 % aerosol,spray 2 spray intranasal QID PRN (Reason: dry nasal passages) ixekizumab 80 mg/mL syringe See Rx Instructions subcut .COMPLEX Rx Instructions: subcutaneously 160MG SQ ONCE, THEN 80MG SQ EVERY 2 WEEKS; furosemide 80 mg tablet 80 mg PO BID metoprolol succinate 25 mg tablet extended release 24 hr 12.5 mg PO DAILY calcium acetate 667 mg tablet 667 mg PO TID clobetasol 0.05 % cream 1 applic topical BID Rx Instructions: TO UPPER ARM NODULES PER [facility] nitroglycerin 0.4 mg tablet, sublingual 0.4 mg sublingual Q5M PRN (Reason: chest pain) Rx Instructions: do not exceed 3 doses per episode bacitracin zinc 500 unit/gram ointment 1 applic topical DAILY PRN (Reason: skin irritation) venlafaxine 37.5 mg capsule,extended release 24hr 37.5 mg PO BID loratadine [Allergy Relief (loratadine)] 10 mg tablet 10 mg PO .QOD Rx Instructions: QOD PER [facility] atorvastatin 80 mg tablet 80 mg PO .QHS Triad Wound Dressing Paste 1 applic topical .COMPLEX Rx Instructions: 1 applic topically TWICE A WEEK ON FRIDAY AND FRIDAY; albuterol 90 mcg/actuation aerosol 180 mcg inhalation QID PRN (Reason: shortness of breath or wheezing) Rx Instructions: 2 PUFFS QID PRN PER [facility] calcitriol 0.25 mcg capsule 0.25 mcg PO .3 TIMES WEEK Rx Instructions: FRIDAY, FRIDAY AND FRIDAY PER [facility] potassium citrate-citric acid 1,100-334 mg/5 mL solution 30 ml PO DAILY zinc oxide 20 % ointment 1 applic topical DAILY PRN (Reason: skin irritation) hydrophilic cream Cream 1 applic topical BID miconazole nitrate [Remedy Phytoplex Antifungal] 2 % powder 1 applic topical DAILY PRN (Reason: fungal) omeprazole 20 mg tablet,delayed release (DR/EC) 20 mg PO DAILY finasteride 5 mg tablet 5 mg PO DAILY polyethylene glycol 3350 [Miralax] 17 gram/dose powder 17 g PO DAILY PRN (Reason: constipation) Ozempic 2 mg/dose (8 mg/3 mL) pen injector 0.5 mg subcut QWEEK ferrous sulfate 325 mg (65 mg iron) tablet,delayed release (DR/EC) 325 mg PO .QOD Rx Instructions: EVERY OTHER DAY PER [facility] pramoxine 1 % lotion 1 applic topical TID PRN (Reason: itching) acetaminophen [Tylenol] 325 mg capsule 975 mg PO TID PRN (Reason: fever or pain) aspirin [Adult Low Dose Aspirin] 81 mg tablet,delayed release (DR/EC) 81 mg PO DAILY guaifenesin 600 mg tablet extended release 12hr 600 mg PO BID PRN (Reason: congestion) sennosides 8.6 mg capsule 8.6 mg PO DAILY PRN (Reason: constipation) levothyroxine 75 mcg capsule 75 mcg PO QAM multivitamin Tablet 1 tab PO DAILY Rx Instructions: WITH MINERALS, NO VITAMIN K PER [facility] Print Language: Gabonese Referrals: Physician,Non-Staff, MD [Primary Care Provider] - 1 week
--- NOTE | 2023-11-10 10:49 | XR_ITS ---
The [address] [address] Patient Name: MATT HONEYCUTT MRN: [id number] date: 1950 Sex: M Assigned Patient Location: ER Current Patient Location: ER Accession/Order Number: [id number] Exam Date: 11/10/2023 11:35 Report Date: 11/10/2023 11:54 At the request of: REJI HALLMAN Procedure: XR chest 1V EXAMINATION: XR chest 1V HISTORY: Weakness COMPARISON: XR chest 10/20/2023 FINDINGS: LUNGS: Underexpanded lungs with mild haziness within right lung base. VASCULATURE: No increased pulmonary vasculature. PLEURA: No pneumothorax, effusion, or pleural thickening. CARDIAC: No cardiomegaly or cardiac silhouette abnormality. MEDIASTINUM: No visible mass or adenopathy. BONES: No fracture or visible bone lesion. OTHER: Right jugular central venous catheter with tip in right atrium. XR/XR chest 1V IMPRESSION: 1. Low lung volume examination with mild right basilar infiltrates or atelectasis. Electronically authenticated by: FRANKLIN BECK Date: 11/10/2023 11:54
[2023-11-10 11:00] LABS: PCO2 VBG 40.4 mmHg (40.0-52.0); pH VBG 7.324 (7.330-7.430)
[2023-11-10 11:05] LABS: Hemoglobin 7.4 g/dL (14.0-18.0); Mean Corpuscular HGB Conc 31.9 g/dL (29.9-35.2); Mean Corpuscular Hemoglobin 28.8 pg (25.9-34.0); Mean Corpuscular Volume 90.3 fL (80.0-94.0); Mean Platelet Volume 11.4 fL (9.5-13.5); Platelet Count 103 10^3/uL (150-450); Red Blood Count 2.57 10^6/uL (4.70-6.10); Red Cell Distribution Width 14.8 % (11.0-15.0); White Blood Count 8.5 10^3/uL (4.0-11.0)
[2023-11-10 11:12] LABS: Hematocrit 23.2 % (42.0-54.0)
[2023-11-10 11:19] LABS: Alanine Aminotransferase 11 U/L (16-63); Albumin Globulin Ratio 0.4; Albumin Level 1.6 g/dL (3.4-5.0); Alkaline Phosphatase 113 U/L (46-116); Anion Gap 17.3; Aspartate Amino Transferase 19 U/L (15-37); BUN Creatinine Ratio 12.1; Bilirubin Total 0.5 mg/dL (0.2-1.0); Calcium 9.5 mg/dL (8.5-10.1); Carbon Dioxide 22.1 mmol/L (21.0-32.0); Chloride 97 mmol/L (98-107); Estimated GFR (African America 12 (>=60); Estimated GFR (Non-African Ame 10 (>=60); Globulin 3.7 g/dL; Glucose 185 mg/dL (74-106); Magnesium 1.8 mg/dL (1.8-2.4); Phosphorus 5.5 mg/dL (2.6-4.7); Potassium 3.4 mmol/L (3.5-5.1); Sodium 133 mmol/L (136-145); Total Protein 5.3 g/dL (6.4-8.2); Troponin I High Sensitivity 75.7 pg/mL (4.0-76.1)
[2023-11-10 11:21] LABS: Lymphocytes Absolute Manual 0.42 10^3/uL (1.20-3.80); Segmented Neut Absolute Manual 7.56 10^3/uL (1.4-6.5)
[2023-11-10 11:22] LABS: Basophils Abs Manual 0.08 10^3/uL (0.00-0.10); Monocytes Absolute Manual 0.42 10^3/uL (0.30-0.80)
[2023-11-10 11:26] LABS: Lactate/Lactic Acid 2.2 mmol/L (0.4-2.0)
[2023-11-10 11:27] LABS: Hypochromasia 2+; Ovalocytes 1+
--- NOTE | 2023-11-10 11:29 | US_ITS ---
The [address] [address] Patient Name: MATT HONEYCUTT MRN: [id number] date: 1950 Sex: M Assigned Patient Location: ER Current Patient Location: ER Accession/Order Number: [id number] Exam Date: 11/10/2023 11:30 Report Date: 11/10/2023 12:45 At the request of: REJI HALLMAN Procedure: US venous doppler UE RT EXAMINATION: US venous doppler UE RT HISTORY: Pain, red, swollen ; port placement 2 weeks ago COMPARISON: No relevant comparison available. FINDINGS: REGION: Right upper extremity THROMBI: Occlusive thrombus throughout majority of the length of the cephalic vein from shoulder to mid forearm with partial occlusive thrombus within the distal cephalic vein within the distal forearm (with IV is located). COMPRESSIBILITY: Normal compressibility of the deep veins. FLOW: Normal waveform and antegrade flow between 5 and 20 cm/s within the deep veins OTHER: None. US/US venous doppler UE RT IMPRESSION: 1. Extensive thrombus within the right superficial cephalic vein from shoulder to mid-distal forearm. The patient's forearm IV is within this vein. 2. No deep vein thrombus within the right upper extremity. Electronically authenticated by: FRANKLIN BECK Date: 11/10/2023 12:45
[2023-11-10] MEDS: MORPHINE SULFATE 4 MG/ML VIAL IV (21:44)
== END 2023-11-10 22:25 | disposition home or self-care (01) ==
PROVIDERS: Emergency Medicine Emergency Medical Services; Emergency Provider Emergency Medicine
DX: I82.611 Acute embolism and thrombosis of superficial veins of right upper extremity (principal); N17.9 Acute kidney failure, unspecified; N18.5 Chronic kidney disease, stage 5; Z99.2 Dependence on renal dialysis; Z87.891 Personal history of nicotine dependence; Z66 Do not resuscitate; E66.01 Morbid (severe) obesity due to excess calories; Z68.39 Body mass index [BMI] 39.0-39.9, adult
CPT/HCPCS: 36415; 71045; 80053; 82800; 83605; 83735; 84100; 84484; 85007; 85027; 93971; 96374; 99285; J2270